=== PATIENT | male | born 1940 | race Caucasian/White ===

== ENCOUNTER 2018-07-02 10:29 | Inpatient (IN) | payer OTHER, SELFPAY ==
[2018-07-02] VITALS (14 sets, daily range): BP systolic 123–146; BP diastolic 56–100; PULSE 60–149; RESP 13–22; TEMP 36.6–36.9; O2SAT 94–97; BMI 41.5; BMI 39.6; BMI 39.7
--- NOTE | 2018-07-02 10:47 | EKG12_ITS ---
Test Reason : SOB Blood Pressure : / mmHG Vent. Rate : 144 BPM Atrial Rate : 122 BPM P-R Int : 000 ms QRS Dur : 088 ms QT Int : 352 ms P-R-T Axes : 000 038 056 degrees QTc Int : 545 ms Supraventricular tachycardia Nonspecific ST abnormality Abnormal ECG Confirmed by CLOTILDE BHANDARI, PHUONG ([id number]), design editor FRANCISCO JAVIER FRAGOSO ([id number] on 07/05/2018 2:25:02 PM Referred By: GO Confirmed By:PHUONG MABRY MD
--- NOTE | 2018-07-02 10:53 | RAD_ITS ---
STUDY: X-RAY CHEST REASON FOR EXAM: Male, 77 years old. Shortness of breath with wheezing. TECHNIQUE: Portable upright chest COMPARISON: None. FINDINGS: There is mild generalized pulmonary hyperlucency in particular at the apices suggesting underlying COPD/emphysema. Mild coarsening of the pulmonary interstitium, chronic. No acute infiltrate, effusion or pneumothorax. No suspicious focal pulmonary lesion. No significant cardiomegaly. Normal mediastinal silhouette, rishabh and pleural margins. No acute osseous or upper abdominal process. RAD/Chest 1 View (Portable) IMPRESSION: Suspicion of underlying COPD/emphysema without acute superimposed cardiopulmonary process. There is no evidence of asymmetric air trapping. There are no convincing features of acute pneumonia. Electronically Signed: Antonio Corrigan MD at 12:18 EST Tel , Service support ,
[2018-07-02 11:00] LABS: Absolute Lymphocyte Count 1.23 X10^3/ul (0.83-4.51); Absolute Neutrophil Count 6.6 X10^3/uL (2.0-7.7); Basophil# 0.03 X10^3/uL; Basophil% 0.4 % (0-1); Eosinophil# 0.14 X10^3/uL; Eosinophils% 1.6 % (0-5); Hematocrit 45.2 % (40-54); Hemoglobin 14.6 g/dl (13.0-16.5); Lymphocyte # 1.23 X10^3/ul (4.0); Lymphocyte % 14.4 % (19-41); Mean Corp Hgb Conc 32.3 g/gl (32-36); Mean Corpuscular Hgb 29.3 pg (27.0-32.0); Mean Corpuscular Volume 90.8 fL (80-94); Mean Platelet Vol. 9.8 fl (6.2-12.0); Monocyte# 0.53 X10^3/uL; Monocyte% 6.2 % (0-10); Neutrophil # 6.59 X10^3/uL (2.7-7.7); Neutrophil % 77.3 % (47-70); Platelet Count 145 K/mm3 (150-450); RBC Distribution Width CV 13.7 % (11.6-14.6); RBC Distribution Width SD 44.6 fl (35.1-43.9); Red Blood Count 4.98 M/mm3 (4.6-6.2); White Blood Count 8.5 K/mm3 (4.4-11.0)
[2018-07-02 11:05] LABS: POSITIVE COUNT NO; POSITIVE DIFFERENTIAL NO; POSITIVE MORPHOLOGY NO
[2018-07-02 11:14] LABS: Anion Gap 6 (5-15); BUN 27 mg/dL (7-18); BUN/Creat Ratio 17.5 RATIO (10-20); Chloride 103 mmol/L (98-107); Creatinine, Serum 1.54 mg/dL (0.70-1.30); EST Glomerular Filtration Rate 47 mL/min (>60); Est Glom Filt Rate - Afr Amer 57 mL/min (>60); Estimated Creatinine Clearance 36.05 ml/min; Glucose 120 mg/dL (74-106); International Normalized Ratio 1.1; Potassium 4.7 mmol/L (3.5-5.1); Prothrombin Time (Protime)PT. 13.9 SECONDS (11.7-14.9); Sodium Level 140 mmol/L (136-145)
[2018-07-02 11:15] LABS: Partial Thromboplast Time 28.6 Seconds (24.1-36.2)
[2018-07-02] MEDS: dilTIAZem 25 MG/5 ML Vial 20 MG IV BOLUS (11:37)
--- NOTE | 2018-07-02 12:31 | ED.DCSUM_ITS ---
- ER Visit Summary Date of Service: 07/02/18 Chief Complaint: [Shortness of breath] History of Present Illness: The patient is a 77 M [presents to the emergency department with complaint of shortness of breath that started a few weeks ago. Patient was seen by primary care physician today and sent to the ER for further evaluation. Patient has been feeling intermittent episodes of palpitations and racing heart. Patient denies any chest pain. Patient thinks he is gained about 14 pounds in the last couple of weeks. Patient denies any fever or cough. Patient does have a history of diabetes, hypertension, high cholesterol, and sleep apnea.] Physical Examination: [HEENT-PERRLA, EOMI. Cranial nerves II through XII grossly intact. TMs clear. Mucous membranes moist. No adenopathy. Cardiovascular- No murmurs auscultated. Heart tachycardic and irregular Lungs-clear to auscultation, chest wall stable without crepitus or subcu emphysema Abdomen-normoactive bowel sounds, soft, nontender, no rebound or rigidity, no peritoneal signs. Extremities-intact ?4, normal range of motion, normal pulses, atraumatic] Test Results: [EKG obtained on arrival showed A. fib flutter with a rate of 144. CBC with differential showed a white count of 8.5, hemoglobin 14.6, hematocrit 45, platelets 145. Chemistries unremarkable. INR was 1.1. Troponin less than 0.015. BNP was 127. Chest x-ray showed mild pulmonary congestion otherwise nothing acute.] Emergency Department Course and Treatment: [Patient was given Cardizem 20 mg IV bolus and his heart rate now into the 70s however he continues to be in atrial fibrillation] Treatment Plan: [Admit] Disposition: [Admit] Impression: [Atrial fibrillation with rapid ventricular response-new onset] This note was generated with [employer] dictation software. It may contain incorrect words, spelling, and punctuation that were not noted in review of the chart prior to signing ED Disposition - Plan for ED Patient: Chief Complaint: Shortness of Breath Referrals: Eric Newton MD [Primary Care Provider] -
--- NOTE | 2018-07-02 12:58 | ECHOD_ITS ---
Reason For Study: Afib, Aflutter Procedure This was a 2D Doppler, Color Flow transthoracic echocardiogram. The study was technically difficult. Contrast injection was performed. Exam performed portable in patient room. Left Ventricle Normal size and thickness. The estimated ejection fraction is 50 %. Unable to assess diastolic dysfunction due to arrhythmia. There is mild global hypokinesis of the left ventricle. Right Ventricle Normal size and thickness. Normal systolic function. Atria Normal right atrium. Normal atrial septum. Mitral Valve The mitral valve is structurally normal. No prolapse or stenosis seen. Tricuspid Valve Normal tricuspid valve. Unable to estimate RV systolic pressure/pulmonary artery pressure due to technically difficult study. Aortic Valve Normal aortic valve. Trisinus/trileaflet aortic valve. Pulmonic Valve The pulmonic valve is not well visualized. Great Vessels Normal aortic root. Normal arch. Normal inferior vena cava. Inferior vena cava collapse with sniff. Pericardium/Pleural No pericardial effusion. Medication Definity0.5ml given slow IV push to enhance endocardial definition. MMode/2D Measurements & Calculations LVIDd: 4.3 cm IVSd: 1.2 cm Ao root diam: 3.1 cm LVIDs: 3.1 cm LVPWd: 1.0 cm RVDd: 3.1 cm FS: 26.3 % LAV(MOD-bp): 31.9 ml LA A4 area: 12.5 cm2 LA dimension(2D): 4.1 cm LAV(MOD-bp) Indexed: 14.7 ml/m2 LAV(MOD-sp2): 36.7 ml LAV(MOD-sp4): 26.1 ml RA A4 area: 13.6 cm2 Doppler Measurements & Calculations MV E max dot: 79.9 cm/sec Ao V2 max: 116.7 cm/sec LV V1 max: 80.7 cm/sec Ao max P.5 mmHg LV V1 max P.6 mmHg Ao V2 mean: 86.1 cm/sec Ao mean P.3 mmHg Ao V2 VTI: 19.8 cm PA V2 max: 63.4 cm/sec Interpretation Summary Normal size and thickness. The estimated ejection fraction is 50 %. Unable to assess diastolic dysfunction due to arrhythmia. There is mild global hypokinesis of the left ventricle. Unable to estimate RV systolic pressure/pulmonary artery pressure due to technically difficult study. The study was technically difficult. There is no comparison study available. Contrast injection was performed. Ordering Physician: Jhon Zamorano Referring Physician: Eric Newton Performed By: Trena Bueno RDCS, RVT
[2018-07-02 14:18] LABS: Absolute Lymphocyte Count 1.65 X10^3/ul (0.83-4.51); Absolute Neutrophil Count 5.6 X10^3/uL (2.0-7.7); Basophil# 0.02 X10^3/uL; Basophil% 0.3 % (0-1); Eosinophil# 0.12 X10^3/uL; Eosinophils% 1.5 % (0-5); Hematocrit 43.3 % (40-54); Hemoglobin 14.1 g/dl (13.0-16.5); Lymphocyte # 1.65 X10^3/ul (4.0); Mean Corp Hgb Conc 32.6 g/gl (32-36); Mean Corpuscular Hgb 29.4 pg (27.0-32.0); Mean Corpuscular Volume 90.4 fL (80-94); Mean Platelet Vol. 9.6 fl (6.2-12.0); Monocyte# 0.49 X10^3/uL; Monocyte% 6.2 % (0-10); Neutrophil # 5.56 X10^3/uL (2.7-7.7); Neutrophil % 70.9 % (47-70); POSITIVE COUNT NO; POSITIVE DIFFERENTIAL NO; POSITIVE MORPHOLOGY NO; Platelet Count 137 K/mm3 (150-450); RBC Distribution Width CV 13.5 % (11.6-14.6); RBC Distribution Width SD 44.5 fl (35.1-43.9); Red Blood Count 4.79 M/mm3 (4.6-6.2); White Blood Count 7.9 K/mm3 (4.4-11.0)
--- NOTE | 2018-07-02 16:54 | PCM.HP.STD ---
Problem List (1) HTN (hypertension) Status: Chronic (2) HLD (hyperlipidemia) Status: Chronic (3) GERD (gastroesophageal reflux disease) Status: Chronic (4) Paroxysmal A-fib Status: Acute History of Present Illness Date of Admission: 07/02/18 Chief Complaint: Palpitations The patient is a 77 year old M with a pmh as above who presents with SOB. He went to his PCP's office today because the SOB has been present for several weeks, and he mentioned that he had been having intermittent palpitations. He had a memorable episode of palpitations several years ago which is when he was started on Metoprolol. An EKG was performed in the the office and he was seen to be in a-fib and was sent to the ER. In the ER he was found to be in a-fib with RVR and he was given a bolus of cardizem 20 mg which caused his rate to drop to the 70's which is where hs stayed. No CP, lightheadedness or dizziness. He does have an elevated creatinine, and he has no previous labs in our system. He was admitted because though his rate is normal, he remains in a-fib and will require further work-up. Past Medical History Past Medical History (Chronic Problems): Chronic Problems HTN (hypertension) (Chronic) HLD (hyperlipidemia) (Chronic) GERD (gastroesophageal reflux disease) (Chronic) Allergies No Known Allergies Allergy (Verified 07/02/18 10:30) Home Medications: Ambulatory Orders Medication Instructions Recorded Aspirin [Aspirin, Baby] 81 mg PO DAILY@0800 07/02/18 Atorvastatin Calcium [Lipitor] 10 mg PO QHS 07/02/18 Hydrochlorothiazide [Hctz] 25 mg PO DAILY 07/02/18 Metformin HCl [Glucophage] 500 mg PO BID 07/02/18 Metoprolol Tartrate [Lopressor 25 mg PO BID 07/02/18 (Beta Yosef)] Omeprazole [Prilosec] 20 mg PO DAILY 07/02/18 Quinapril HCl [Accupril] 20 mg PO BID 07/02/18 Surgical History: total hip arthroplasty, total knee arthroplasty Lives: With Family Smoking Status: Never smoker Alcohol: None Drugs: None - *Family History Maternal History Items: High Cholesterol, Heart Disease, Hypertension Review of Systems Constitutional: Denies: Chills, Fever, Weight Change HEENT: Denies: Head Aches, Sinus Congestion, Sinus Drainage Cardiovascular: Reports: Palpitations. Denies: Chest Pain Respiratory: Reports: Shortness of Breath, Shortness of breath upon exertion. Denies: Cough, Shortness of breath at rest, Sputum production Gastrointestinal: Denies: Abdominal Pain, Nausea, Vomiting Genitourinary: Denies: Dysuria Musculoskeletal: Denies: Joint Pain, Joint Tenderness Skin: Denies: Rash, Wounds Neurological: Denies: Numbness, Tingling, Focal weakness Psychiatric: Denies: Anxiety, Depression Hematologic/ Lymphatic: Denies: Easy Bruising, Easy Bleeding VTE Information - Inpt Only VTE Present on Admission: No Patient Problems: Active and Suspected Problems Paroxysmal A-fib (Acute) - Physical Exam General: Alert, Oriented x3, Cooperative, No apparent distress HEENT: Atraumatic, PERRLA, EOMI, Normocephalic Oral: Moist Mucosa Neck: Supple, No JVD Lungs: Clear to auscultation, Normal air movement, No rhonchi, No wheeze, No rales Cardiovascular: Regular rate, Normal S1, Normal S2, No murmurs, - - irregular rhythm Abdomen: Soft, Non Tender, Non-Distended, No Hepato-splenomegaly Extremities: Capillary Refill Less than 3 Seconds, Edema Skin: No rashes, No breakdown Neurological: Neuro grossly intact, Sensory exam intact to light touch and pain Psych/Mental Status: Normal Affect, Appropriate Vital Signs Temp Pulse Resp BP Pulse Ox 98.5 F 81 20 H 146/85 H 97 07/02/18 14:46 07/02/18 14:46 07/02/18 14:46 07/02/18 14:46 07/02/18 14:46 Oxygen Delivery Method Room Air Weight: 238 lb 9.6 oz Body Mass Index (BMI) 39.6 Laboratory Tests Past 24 Hrs 07/02/18 07/02/18 07/02/18 10:40 10:40 10:40 WBC 8.5 RBC 4.98 Hgb 14.6 Hct 45.2 MCV 90.8 MCH 29.3 MCHC 32.3 RDW 13.7 RDW Differential 44.6 H Plt Count 145 L MPV 9.8 Immature Gran % (Auto) 0.100 Neut % (Auto) 77.3 H Lymph % (Auto) 14.4 L [place] % (Auto) 6.2 Eos % (Auto) 1.6 Baso % (Auto) 0.4 Absolute Neuts (auto) 6.6 Absolute Lymphs (auto) 1.23 Total Counted Not Reportable PT 13.9 INR 1.1 APTT 28.6 Sodium 140 Potassium 4.7 Chloride 103 Carbon Dioxide 31.0 Anion Gap 6 BUN 27 H Creatinine 1.54 H Estim Creat Clear Calc 36.05 Est GFR (MDRD) Af Amer 57 L Est GFR (MDRD) Non-Af 47 L BUN/Creatinine Ratio 17.5 Glucose 120 H Calcium 9.0 Troponin I < 0.015 B-Natriuretic Peptide TSH 07/02/18 07/02/18 07/02/18 10:40 10:40 14:05 WBC 7.9 RBC 4.79 Hgb 14.1 Hct 43.3 MCV 90.4 MCH 29.4 MCHC 32.6 RDW 13.5 RDW Differential 44.5 H Plt Count 137 L MPV 9.6 Immature Gran % (Auto) 0.100 Neut % (Auto) 70.9 H Lymph % (Auto) 21.0 [place] % (Auto) 6.2 Eos % (Auto) 1.5 Baso % (Auto) 0.3 Absolute Neuts (auto) 5.6 Absolute Lymphs (auto) 1.65 Total Counted Not Reportable PT INR APTT Sodium Potassium Chloride Carbon Dioxide Anion Gap BUN Creatinine Estim Creat Clear Calc Est GFR (MDRD) Af Amer Est GFR (MDRD) Non-Af BUN/Creatinine Ratio Glucose Calcium Troponin I B-Natriuretic Peptide 125.0 H TSH Pending Assessment/Plan All Active Problems Paroxysmal A-fib (Acute) 1. Paroxysmal a-fib/HTN/HLD - even though this is his first diagnosis of a-fib, given his past h/o intermittent palpitations in the distant past and recently this makes it likely to be paroxysmal - Echo is pending - Increased his metoprolol to 50 mg BID and will monitor - Given his edema, which has been present for a few years, on and off and the SOB, I am concerned that he has heart failure, will wait for the echo to confirm - May need ischemic work-up - Initial troponin is negative and EKG with a-fib - Will continue with his home BP medications - CHADS2 is 3 and he will likely need anticoagulation prior to discharge - C/w asa and lipitor 2. DM2 - will hold his metformin - SSI and accuchecks 3. GERD - stable - C/w his home PPI DVT: Heparin Diet: Cardiac Code Visit Inpatient E&M: 44643 Init Hosp L3
[2018-07-02 17:24] LABS: Thyroid Stim Hormone (TSH) 5.16 uIU/mL (0.358-3.74)
[2018-07-02] MEDS: Metoprolol Tartrate 50 MG Tablet PO (17:37)
[2018-07-02] MEDS: Heparin Injection (Vial) 5,000 UNIT/ML VIAL 5000 UNIT SC (21:46)
[2018-07-02] MEDS: Atorvastatin Calcium 10 MG Tablet PO (21:46)
[2018-07-02 22:10] LABS: Bedside Glucose 121 mg/dL (70-110)
[2018-07-03] VITALS (19 sets, daily range): BP systolic 131–160; BP diastolic 70–101; PULSE 73–146; RESP 16–26; TEMP 36.6–37.1; O2SAT 93–97
[2018-07-03 06:15] LABS: Absolute Lymphocyte Count 1.89 X10^3/ul (0.83-4.51); Absolute Neutrophil Count 4.2 X10^3/uL (2.0-7.7); Basophil# 0.02 X10^3/uL; Basophil% 0.3 % (0-1); Eosinophil# 0.23 X10^3/uL; Eosinophils% 3.4 % (0-5); Hematocrit 43.6 % (40-54); Hemoglobin 14.1 g/dl (13.0-16.5); Lymphocyte # 1.89 X10^3/ul (4.0); Lymphocyte % 27.9 % (19-41); Mean Corp Hgb Conc 32.3 g/gl (32-36); Mean Corpuscular Hgb 29.5 pg (27.0-32.0); Mean Corpuscular Volume 91.2 fL (80-94); Mean Platelet Vol. 9.7 fl (6.2-12.0); Monocyte# 0.46 X10^3/uL; Monocyte% 6.8 % (0-10); Neutrophil # 4.16 X10^3/uL (2.7-7.7); Neutrophil % 61.5 % (47-70); Platelet Count 138 K/mm3 (150-450); RBC Distribution Width CV 13.8 % (11.6-14.6); RBC Distribution Width SD 45.5 fl (35.1-43.9); Red Blood Count 4.78 M/mm3 (4.6-6.2); White Blood Count 6.8 K/mm3 (4.4-11.0)
[2018-07-03 06:24] LABS: Anion Gap 5 (5-15); BUN 25 mg/dL (7-18); BUN/Creat Ratio 18.7 RATIO (10-20); Calcium,Total 8.7 mg/dL (8.5-10.1); Chloride 101 mmol/L (98-107); Creatinine, Serum 1.34 mg/dL (0.70-1.30); EST Glomerular Filtration Rate 55 mL/min (>60); Est Glom Filt Rate - Afr Amer 67 mL/min (>60); Estimated Creatinine Clearance 41.43 ml/min; Glucose 125 mg/dL (74-106); Potassium 4.7 mmol/L (3.5-5.1); Sodium Level 137 mmol/L (136-145)
[2018-07-03 06:25] LABS: POSITIVE COUNT NO; POSITIVE DIFFERENTIAL NO; POSITIVE MORPHOLOGY NO
[2018-07-03] MEDS: dilTIAZem 25 MG/5 ML Vial 5 MG IV BOLUS (06:35)
[2018-07-03 06:55] LABS: Bedside Glucose 112 mg/dL (70-110)
--- NOTE | 2018-07-03 07:52 | EKG12_ITS ---
Test Reason : RHYTHM CHANGE Blood Pressure : / mmHG Vent. Rate : 134 BPM Atrial Rate : 144 BPM P-R Int : 000 ms QRS Dur : 080 ms QT Int : 350 ms P-R-T Axes : 000 057 077 degrees QTc Int : 522 ms Atrial flutter Abnormal ECG Confirmed by MARCIAL BHANDARI, JENNIFER ([id number]), department editor AUBREY STEIN ([id number] on 07/09/2018 3:50:03 PM Referred By: RADHA Confirmed By:JENNIFER CEJA MD
[2018-07-03] MEDS: Aspirin 81 MG TAB.CHEW PO (08:20)
[2018-07-03] MEDS: Metoprolol Tartrate 50 MG Tablet PO ×2 (08:20→09:30)
[2018-07-03] MEDS: Pantoprazole Sodium 20 MG Tablet PO (08:20)
[2018-07-03] MEDS: Heparin Injection (Vial) 5,000 UNIT/ML VIAL 5000 UNIT SC ×2 (08:20→21:31)
--- NOTE | 2018-07-03 12:16 | CHAPLAIN ---
Type of Pastoral Visit _x__ Initial Visit ___ Follow-up Visit ___ On-call Visit ___ General Patient Visit ___ Spiritual Assessment ___ Family Conference ___ Bereavement ___ Rapid Response ___ Code Blue ___ Other (describe below) Pastoral Care Referral From _x__ Patient ___ Family ___ Nurse ___ Physician ___ Stripper Shovel Operator ___ Structural Steel Equipment Erector ___ Other (describe below) Sacrament/Intervention _x__ Active listening ___ Anointing ___ Christian ___ Bereavement ___ Communion _x__ Tori exploration ___ _x__ Life review _x__ Prayer ___ Reconciliation ___ Sacrament of Sick ___ Supportive presence ___ Wedding ___ Other (describe below) Pastoral Comments 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
[2018-07-03 12:36] LABS: Bedside Glucose 154 mg/dL (70-110)
--- NOTE | 2018-07-03 12:53 | PCM.PN.HOSP ---
Patient Problems: Active and Suspected Problems Paroxysmal A-fib (Acute) Subjective: Feels good, without complaints, does not feel the palpitations unless HR is in the 140s. No lightheadedness or dizziness Vitals/I&O's: Vital Signs Temp Pulse Resp BP Pulse Ox 98.0 F 112 H 20 H 131/70 H 97 07/03/18 11:32 07/03/18 11:42 07/03/18 11:42 07/03/18 11:32 07/03/18 11:42 Oxygen Flow Rate (L/min) 2 Oxygen Delivery Method Nasal Cannula Weight: 238 lb 9.6 oz Body Mass Index (BMI) 39.6 Intake and Output for Last 24 Hours 07/01/18 07/02/18 07/03/18 23:59 23:59 23:59 Intake Total 360 / 360 240 / 240 Balance 360 / 360 240 / 240 General: Alert, Oriented x3, Cooperative, No apparent distress HEENT: Atraumatic, PERRLA, EOMI, Normocephalic Oral: Moist Mucosa Neck: Supple, No JVD Lungs: Clear to auscultation, Normal air movement, No rhonchi, No wheeze, No rales Cardiovascular: Tachycardic, Normal S1, Normal S2, No murmurs, - - irregular rhythm Abdomen: Soft, Non Tender, Non-Distended, No Hepato-splenomegaly Extremities: Capillary Refill Less than 3 Seconds, Edema Skin: No rashes, No breakdown Neurological: Neuro grossly intact, Sensory exam intact to light touch and pain Psych/Mental Status: Normal Affect, Appropriate Vital Signs Laboratory Results 07/02/18 10:40: TSH 5.16 H 07/02/18 14:05: WBC 7.9, RBC 4.79, Hgb 14.1, Hct 43.3, MCV 90.4, MCH 29.4, MCHC 32.6, RDW 13.5, RDW Differential 44.5 H, Plt Count 137 L, MPV 9.6, Immature Gran % (Auto) 0.100, Neut % (Auto) 70.9 H, Lymph % (Auto) 21.0, [place] % (Auto) 6.2, Eos % (Auto) 1.5, Baso % (Auto) 0.3, Absolute Neuts (auto) 5.6, Absolute Lymphs (auto) 1.65, Total Counted Not Reportable 07/02/18 21:46: POC Glucose 121 H 07/03/18 05:08: WBC 6.8, RBC 4.78, Hgb 14.1, Hct 43.6, MCV 91.2, MCH 29.5, MCHC 32.3, RDW 13.8, RDW Differential 45.5 H, Plt Count 138 L, MPV 9.7, Immature Gran % (Auto) 0.100, Neut % (Auto) 61.5, Lymph % (Auto) 27.9, [place] % (Auto) 6.8, Eos % (Auto) 3.4, Baso % (Auto) 0.3, Absolute Neuts (auto) 4.2, Absolute Lymphs (auto) 1.89, Total Counted Not Reportable 07/03/18 05:08: Sodium 137, Potassium 4.7, Chloride 101, Carbon Dioxide 31.0, Anion Gap 5, BUN 25 H, Creatinine 1.34 H, Estim Creat Clear Calc 41.43, Est GFR (MDRD) Af Amer 67, Est GFR (MDRD) Non-Af 55 L, BUN/Creatinine Ratio 18.7, Glucose 125 H, Calcium 8.7 07/03/18 06:39: POC Glucose 112 H 07/03/18 12:28: POC Glucose 154 H Current Medications Aspirin (Aspirin, Baby) 81 mg PO DAILY@0800 COUNTS INCLUDE 234 BEDS AT THE [facility] Last Admin: 07/03/18 08:20 Dose: 81 mg Atorvastatin Calcium (Lipitor) 10 mg PO QHS COUNTS INCLUDE 234 BEDS AT THE [facility] Last Admin: 07/02/18 21:46 Dose: 10 mg Dextrose (D50w Syringe) 0 gm IV X1 PRN; Protocol PRN Reason: Hypoglycemia Glucagon () 1 mg IM .X1 PRN PRN Reason: Hypoglycemia Heparin Sodium (Porcine) (Heparin Na) 5,000 unit SC Q12 COUNTS INCLUDE 234 BEDS AT THE [facility] Last Admin: 07/03/18 08:20 Dose: 5,000 unit Insulin Human Lispro (Humalog Kwikpen (Bkc)) 0 unit SQ ACHS COUNTS INCLUDE 234 BEDS AT THE [facility]; Protocol Last Admin: 07/03/18 07:59 Dose: Not Given Magnesium Hydroxide (Milk Of Magnesia) 30 ml PO DAILY PRN PRN Reason: Constipation Metoprolol Tartrate (Lopressor (Beta Yosef)) 100 mg PO BID COUNTS INCLUDE 234 BEDS AT THE [facility] Pantoprazole Sodium (Protonix) 20 mg PO DAILY COUNTS INCLUDE 234 BEDS AT THE [facility] Last Admin: 07/03/18 08:20 Dose: 20 mg Sodium Chloride () 5 - 15 ml IV UD PRN PRN Reason: SALINE FLUSH Medical Necessity - Tobacco Use Smoking Status: Never smoker Assessment/Plan All Active Problems Paroxysmal A-fib (Acute) 1. Paroxysmal a-fib/HTN/HLD - even though this is his first diagnosis of a-fib, given his past h/o intermittent palpitations in the distant past and recently this makes it likely to be paroxysmal - Echo is pending - Increased his metoprolol to 100 mg BID and will monitor - Given his edema, which has been present for a few years, on and off and the SOB, I am concerned that he has heart failure, will wait for the echo to confirm - May need ischemic work-up - Initial troponin is negative and EKG with a-fib - Continue to hold his HCTZ and AMBER as his creatinine is still elevated, though improving from 1.54 to 1.34, Unsure if this is an LILIA as there is no baseline in our records - CHADS2 is 3 and he will likely need anticoagulation prior to discharge - C/w asa and lipitor 2. DM2 - will hold his metformin - SSI and accuchecks 3. GERD - stable - C/w his home PPI 4. TSH elevation - He is currently in an acute setting with stress making the elevated level of his TSH unlikely to correlate with actual activity - He will need outpatient follow-up DVT: Heparin Diet: Cardiac Code Visit Inpatient E&M: 39895 Subs Hosp L2
--- NOTE | 2018-07-03 12:57 | PN_ITS ---
Patient Problems: Active and Suspected Problems Paroxysmal A-fib (Acute) Subjective: Feels good, without complaints, does not feel the palpitations unless HR is in the 140s. No lightheadedness or dizziness Vitals/I&O's: Vital Signs Temp Pulse Resp BP Pulse Ox 98.0 F 112 H 20 H 131/70 H 97 07/03/18 11:32 07/03/18 11:42 07/03/18 11:42 07/03/18 11:32 07/03/18 11:42 Oxygen Flow Rate (L/min) 2 Oxygen Delivery Method Nasal Cannula Weight: 238 lb 9.6 oz Body Mass Index (BMI) 39.6 Intake and Output for Last 24 Hours 07/01/18 07/02/18 07/03/18 23:59 23:59 23:59 Intake Total 360 / 360 240 / 240 Balance 360 / 360 240 / 240 General: Alert, Oriented x3, Cooperative, No apparent distress HEENT: Atraumatic, PERRLA, EOMI, Normocephalic Oral: Moist Mucosa Neck: Supple, No JVD Lungs: Clear to auscultation, Normal air movement, No rhonchi, No wheeze, No rales Cardiovascular: Tachycardic, Normal S1, Normal S2, No murmurs, - - irregular rhythm Abdomen: Soft, Non Tender, Non-Distended, No Hepato-splenomegaly Extremities: Capillary Refill Less than 3 Seconds, Edema Skin: No rashes, No breakdown Neurological: Neuro grossly intact, Sensory exam intact to light touch and pain Psych/Mental Status: Normal Affect, Appropriate Vital Signs Laboratory Results 07/02/18 10:40: TSH 5.16 H 07/02/18 14:05: WBC 7.9, RBC 4.79, Hgb 14.1, Hct 43.3, MCV 90.4, MCH 29.4, MCHC 32.6, RDW 13.5, RDW Differential 44.5 H, Plt Count 137 L, MPV 9.6, Immature Gran % (Auto) 0.100, Neut % (Auto) 70.9 H, Lymph % (Auto) 21.0, [place] % (Auto) 6.2, Eos % (Auto) 1.5, Baso % (Auto) 0.3, Absolute Neuts (auto) 5.6, Absolute Lymphs (auto) 1.65, Total Counted Not Reportable 07/02/18 21:46: POC Glucose 121 H 07/03/18 05:08: WBC 6.8, RBC 4.78, Hgb 14.1, Hct 43.6, MCV 91.2, MCH 29.5, MCHC 32.3, RDW 13.8, RDW Differential 45.5 H, Plt Count 138 L, MPV 9.7, Immature Gran % (Auto) 0.100, Neut % (Auto) 61.5, Lymph % (Auto) 27.9, [place] % (Auto) 6.8, Eos % (Auto) 3.4, Baso % (Auto) 0.3, Absolute Neuts (auto) 4.2, Absolute Lymphs (auto) 1.89, Total Counted Not Reportable 07/03/18 05:08: Sodium 137, Potassium 4.7, Chloride 101, Carbon Dioxide 31.0, Anion Gap 5, BUN 25 H, Creatinine 1.34 H, Estim Creat Clear Calc 41.43, Est GFR (MDRD) Af Amer 67, Est GFR (MDRD) Non-Af 55 L, BUN/Creatinine Ratio 18.7, Glucose 125 H, Calcium 8.7 07/03/18 06:39: POC Glucose 112 H 07/03/18 12:28: POC Glucose 154 H Current Medications Aspirin (Aspirin, Baby) 81 mg PO DAILY@0800 [facility] Last Admin: 07/03/18 08:20 Dose: 81 mg Atorvastatin Calcium (Lipitor) [address] [facility] Last Admin: 07/02/18 21:46 Dose: 10 mg Dextrose (D50w Syringe) 0 gm IV X1 PRN; Protocol PRN Reason: Hypoglycemia Glucagon () 1 mg IM .X1 PRN PRN Reason: Hypoglycemia Heparin Sodium (Porcine) (Heparin Na) 5,[address] [facility] Last Admin: 07/03/18 08:20 Dose: 5,000 unit Insulin Human Lispro (Humalog Kwikpen (Bkc)) [address] [facility]; Protocol Last Admin: 07/03/18 07:59 Dose: Not Given Magnesium Hydroxide (Milk Of Magnesia) 30 ml PO DAILY PRN PRN Reason: Constipation Metoprolol Tartrate (Lopressor (Beta Yosef)) [address] [facility] Pantoprazole Sodium (Protonix) [address] [facility] Last Admin: 07/03/18 08:20 Dose: 20 mg Sodium Chloride () 5 - 15 ml IV UD PRN PRN Reason: SALINE FLUSH Medical Necessity - Tobacco Use Smoking Status: Never smoker Assessment/Plan All Active Problems Paroxysmal A-fib (Acute) 1. Paroxysmal a-fib/HTN/HLD - even though this is his first diagnosis of a-fib, given his past h/o intermittent palpitations in the distant past and recently this makes it likely to be paroxysmal - Echo is pending - Increased his metoprolol to 100 mg BID and will monitor - Given his edema, which has been present for a few years, on and off and the SOB, I am concerned that he has heart failure, will wait for the echo to confirm - May need ischemic work-up - Initial troponin is negative and EKG with a-fib - Continue to hold his HCTZ and AMBER as his creatinine is still elevated, though improving from 1.54 to 1.34, Unsure if this is an LILIA as there is no baseline in our records - CHADS2 is 3 and he will likely need anticoagulation prior to discharge - C/w asa and lipitor 2. DM2 - will hold his metformin - SSI and accuchecks 3. GERD - stable - C/w his home PPI 4. TSH elevation - He is currently in an acute setting with stress making the elevated level of his TSH unlikely to correlate with actual activity - He will need outpatient follow-up DVT: Heparin Diet: Cardiac Code Visit Inpatient E&M: 99712 Subs Hosp L2
[2018-07-03] MEDS: Insulin Lispro 100 UNIT/ML INSULN.PEN SQ ×2 (13:00→21:32)
--- NOTE | 2018-07-03 13:19 | NURSING ---
STUDENT CHARTING REVIEWED BY THIS RN.
--- NOTE | 2018-07-03 14:10 | CASEMGMT ---
RN SHERRY Face to Face with patient for initial transition planning/care coordination assessment. RN CM introduced self and role at [facility]. Patient lying in bed, alert and oriented, family at bedside. Patient willing to participate in assessment and is able to answer all questions appropriately. Care providers, pharmacy, and demographics verified. Patient wishes to discharge home, denies need for home health at this time. Patient states he has no further needs or concerns at this time. CM to follow for discharge planning needs that may arise. PCP: [facility] Specialists: None Preferred Pharmacy: [facility] [place] Insurance: [employer] Prescription Benefit: none Living Will/HPOA: None LNOK: , daughters and sons Living Arrangements: Patient lives with and son in 2 story home with bed and bath to enter the home. Transportation: Uses a warehouse driver DME/HHC: Has can and walker at home. Disposition Plan: Patient to discharge home with family support and follow-up plans in place. Wen LUEVANO, RN, CM
[2018-07-03 16:40] LABS: Bedside Glucose 116 mg/dL (70-110)
[2018-07-03] MEDS: Ipratropium/Albuterol Sulfate 3 ML AMPUL.NEB INHALATION (17:39)
--- NOTE | 2018-07-03 19:23 | CON.PCM_ITS ---
Problem List (1) Atrial fibrillation and flutter Status: Acute (2) Cardiomyopathy Status: Acute (3) CHF (congestive heart failure) Status: Acute Qualifiers: Heart failure type: systolic (4) HLD (hyperlipidemia) Status: Chronic (5) HTN (hypertension) Status: Chronic (6) Hyperglycemia Status: Chronic (7) Renal insufficiency Status: Chronic Reason for Consult Date of Consultation: 07/03/18 History of Present Illness: The patient is a 77 year old white male with a past medical history of hyperlipidemia, hypertension, hyperglycemia, possible chronic renal insufficiency, who is referred for evaluation of atrial fibrillation/flutter, and abnormal transthoracic echocardiogram suggesting a cardiomyopathy, and findings concerning for CHF. He notes that for some time now, potentially 1-2 weeks or up to 1 month he has felt progressively short of breath and dyspneic especially with activity. This feeling has been associated with chest pressure discomfort. He has denied any acute orthopnea or PND. He has had lower extremity peripheral pitting edema. He has noted palpitations and rapid heart rate sensation but has denied near syncope or syncope. He notes based upon his symptoms and his feelings he was evaluated in an outpatient setting. He was found to be in what was reported as atrial fibrillation and subsequently referred to the [facility] for further evaluation care. Based upon review of his cardiac rhythm strip/ECGs there are concerns he has been in atrial flutter with a rapid ventricular response. He has been monitored. He has had a repeat ECGs demonstrating the above. He had a transthoracic echocardiogram performed today. His left ventricle was thought to be globally hypokinetic with an LVEF of 50%. He had a chest x-ray corado ggesting underlying COPD. He has been treated medically. This is required the use of IV diltiazem in attempt to slow his cardiac rate. He has also been on beta-yosef therapy with the dose increasing. He has been on anticoagulant therapy with subcutaneous Lovenox. [] Past Medical History Allergies/Adverse Reactions: Allergies No Known Allergies Allergy (Verified 07/02/18 10:30) Home Medications: Ambulatory Orders Medication Instructions Recorded Aspirin [Aspirin, Baby] 81 mg PO DAILY@0800 07/02/18 Atorvastatin Calcium [Lipitor] 10 mg PO QHS 07/02/18 Hydrochlorothiazide [Hctz] 25 mg PO DAILY 07/02/18 Metformin HCl [Glucophage] 500 mg PO BID 07/02/18 Metoprolol Tartrate [Lopressor 25 mg PO BID 07/02/18 (Beta Yosef)] Omeprazole [Prilosec] 20 mg PO DAILY 07/02/18 Quinapril HCl [Accupril] 20 mg PO BID 07/02/18 Past Medical History (Chronic Problems): Chronic Problems HTN (hypertension) (Chronic) HLD (hyperlipidemia) (Chronic) GERD (gastroesophageal reflux disease) (Chronic) Hyperglycemia (Chronic) Renal insufficiency (Chronic) Surgical History: total hip arthroplasty, total knee arthroplasty - *Family History Maternal History Items: High Cholesterol, Heart Disease, Hypertension Lives: With Family Smoking Status: Never smoker Alcohol: None Drugs: None Review of Systems - Review of Systems General: Denies: Fever, Night Sweats, Fatigue Cardiovascular: Reports: Chest Discomfort, Shortness of Breath, Shortness of Breath with Exertion, Peripheral Edema. Denies: Orthopnea, PND, Palpitations, Lightheadedness, Dizziness, Near Syncope, Syncope Respiratory: Reports: Shortness of Breath. Denies: Cough, Sputum Production, Hemoptysis Gastrointestinal: Denies: Hematemesis, Hematochezia, Melena Genitourinary: Denies: Dysuria, Hematuria Skin: Denies: Rash Subjectve: This is a 77-year-old white male who appears to be resting reasonably comfor tably at the moment in no acute distress. Objective: Vital Signs Temp Pulse Resp BP Pulse Ox 98.0 F 86 26 H 131/70 H 97 07/03/18 11:32 07/03/18 17:37 07/03/18 17:37 07/03/18 11:32 07/03/18 11:42 Oxygen Flow Rate (L/min) 2 Oxygen Delivery Method Room Air Weight: 238 lb 9.6 oz Body Mass Index (BMI) 39.6 Intake and Output for Last 24 Hours 07/01/18 07/02/18 07/03/18 23:59 23:59 23:59 Intake Total 360 / 360 720 / 720 Balance 360 / 360 720 / 720 General: Awake, Alert, Oriented x 3, Cooperative, No Acute Distress, Obese HEENT: Atraumatic, Normocephalic, PERRL, EOMI, Sclera Non Icteric Oral: Moist Mucosa Neck: Supple, Good ROM, No JVD Lungs: Diminished Josr Bases Cardiovascular: Irregular Rhythm, Normal S1, Normal S2 Vascular: No Carotid Bruits Abdomen: Bowel Sounds Present, Soft, Non Tender, Obese Extremities: Mild RLE Edema, Mild LLE Edema Neurological: No Focal Motor or Sensory Deficit Psych/Mental Status: Appropriate, Normal Affect 07/03/18 05:08: WBC 6.8, RBC 4.78, Hgb 14.1, Hct 43.6, MCV 91.2, MCH 29.5, MCHC 32.3, RDW 13.8, RDW Differential 45.5 H, Plt Count 138 L, MPV 9.7, Immature Gran % (Auto) 0.100, Neut % (Auto) 61.5, Lymph % (Auto) 27.9, Crenshaw % (Auto) 6.8, Eos % (Auto) 3.4, Baso % (Auto) 0.3, Absolute Neuts (auto) 4.2, Total Counted Not Reportable 07/03/18 05:08: Sodium 137, Potassium 4.7, Chloride 101, Carbon Dioxide 31.0, Anion Gap 5, BUN 25 H, Creatinine 1.34 H, Est GFR (MDRD) Af Amer 67, Est GFR (MDRD) Non-Af 55 L, BUN/Creatinine Ratio 18.7, Glucose 125 H, Calcium 8.7 Rhythm: Atrial flutter EKG: As noted above ECHO: As noted above CXR: As noted above Assessment/Plan 1. Atrial fibrillation/flutter At the present time the patient appears to be predominantly in atrial flutter with rapid ventricular response. He has been undergoing noninvasive cardiovascular evaluation as noted above. He has been treated medically with rate control therapy and anticoagulant therapy. However, despite these attempts he continues with his atrial dysrhythmia with episodes of rapid ventricular response. Thus he will need continued rate control therapy, consideration for possible antiarrhythmic therapy, continued anticoagulant therapy, and consideration for possible synchronized biphasic DC cardioversion, which based upon the concern of the duration of the patient's findings may need to be SHAINA guided. 2. Cardiomyopathy The patient does have what appears to be a mildly diminished LV systolic function. It is unclear whether this is related to his atrial dysrhythmia and a tachycardic induced event versus being a separate underlying primary cardiova scular finding. He does need to continue medical management for this. This would include agents such as beta blockers, afterload reducing agents, etc. Also controlling his rate and rhythm would be beneficial. Hopefully if that is under better control his overall LV systolic function will improve. 3. Congestive heart failure The patient does have signs and symptoms compatible with underlying CHF. Based upon his objective findings thus far this appears to be systolic mediated. He will need to continue medical management. This will include diuretic therapy. 4. Hyperlipidemia The patient has been on lipid-lowering therapy in the past. This can be continued. 5. Hypertension The patient states he has a long-standing history of hypertension. He believes it has been reasonably well controlled on medical management. 6. Hyperglycemia The patient states he was placed on hypoglycemic agents to try and bring his glucose levels under better control. 7. Renal insufficiency Based upon the patient's history he may have a history of chronic renal insufficiency. This will need be followed during his evaluation care as it may impact medical management, etc. Overall, the present time, the patient will continue to be monitored. He will continue medical management as described above. However based upon his cardiovascular risks, his symptoms, his objective findings, knowing that he may require antiarrhythmic agents some of which he may or may not be able to be on based upon a concern of underlying CAD, etc., it was felt reasonable that the patient undergo further cardiovascular evaluation with a diagnostic cardiac catheterization. Depending upon the findings he may or may not require not only medical management but potentially coronary artery revascularization therapy. If the patient does not have significant underlying CAD then he will continue with medical management with consideration for future attempts at regaining sinus rhythm which again may require a SHAINA guided synchronized biphasic DC cardioversion. The above was discussed and reviewed with the patient, spouse, and his other family members present. The patient and his family members present were in agreement to the aforementioned evaluation care plan. This note was generated using a voice recognition system and there may be incorrect words, spelling or punctuation that were not noted when reviewing the office note prior to saving.
[2018-07-03] MEDS: Furosemide 20 MG/2 ML VIAL IV (20:29)
[2018-07-03] MEDS: TICAGRELOR 90 MG TABLET 180 MG PO (20:30)
[2018-07-03] MEDS: 0.9% NaCl Peripheral Flush Adult/Peds IV (20:31)
[2018-07-03] MEDS: Metoprolol Tartrate 100 MG Tablet PO (21:32)
[2018-07-03] MEDS: Atorvastatin Calcium 10 MG Tablet PO (21:32)
[2018-07-03 21:50] LABS: Bedside Glucose 153 mg/dL (70-110)
[2018-07-03 23:52] LABS: Color, Urine Straw (Yellow); Glucose, Dipstick Normal (Normal); Ketone-Dipstick Negative (Negative); Leukocyte Esterase-Dipstick Negative /ul (Negative); Nitrite-Dipstick Negative (Negative); Occult Blood-Urine Negative /ul (Negative); Protein-Dipstick Negative (Negative); Specific Gravity, Urine 1.005 (1.002-1.030); Urine Bilirubin Dipstick Negative (Negative); Urine Clarity Clear (Clear); Urine Urobilinogen Normal (Normal); Urine pH 6.5 (5.0 - 8.0)
[2018-07-04] VITALS (33 sets, daily range): BP systolic 89–147; BP diastolic 44–113; PULSE 69–135; RESP 16–25; TEMP 36.4–37.1; O2SAT 92–99
[2018-07-04] MEDS: dilTIAZem 25 MG/5 ML Vial 5 MG IV BOLUS ×2 (00:43→05:48)
[2018-07-04] MEDS: 0.9% NaCl Peripheral Flush Adult/Peds IV ×3 (00:43→05:49)
[2018-07-04] MEDS: Ipratropium/Albuterol Sulfate 3 ML AMPUL.NEB INHALATION (01:02)
--- NOTE | 2018-07-04 01:36 | RAD_ITS ---
HISTORY: SOBShort of Breath/DyspneaRAD - Chest EXAM: XR Chest 1 View: COMPARISON: 07/02/2018 FINDINGS: EKG leads in place. Interval worsening with development of mild CHF. Right perihilar haze secondary to edema. Probable small right pleural effusion. The heart is unchanged in size. No pneumothorax. RAD/Chest 1 View (Portable) IMPRESSION: Interval worsening with development of mild CHF with small right pleural effusion. at 0217 Reported and signed by: Bernardo Juarez MD Electronically Signed: Bernardo Juarez, at 2:15 EST Tel , Service support ,
[2018-07-04] MEDS: Furosemide 40 MG/4 ML Vial IV (01:49)
[2018-07-04] MEDS: MethylPREDNISolone 125 MG/2 ML Vial IV (01:49)
--- NOTE | 2018-07-04 01:57 | NURSING ---
HR 120s-140s passed 5 mg IV cardizem, found patient to be diaphoretic and c/o SOB. Satting well on RA but placed on 3L, 98%. Called RT for breathing treatment. Audible and auscultated wheezes present. RR 20, however shallow breaths/accessory muscle use noted when attempting to decrease O2. Breathing treatment passed. Patient family came to nurse's station after breathing treatment given stating patient still feeling as though he was fighting to breath. Family requested hospitalist to assess, ordered a stat CXR and 125 mg IV solumedrol x1 as well as 40 mg IV lasix x1. HR after 5 mg IV cardizem bolus 70s-90s
[2018-07-04] MEDS: Metoprolol Tartrate 100 MG Tablet PO ×2 (05:32→21:38)
[2018-07-04] MEDS: TICAGRELOR 90 MG TABLET PO ×2 (05:32→21:43)
[2018-07-04] MEDS: Aspirin 81 MG TAB.CHEW PO (05:33)
[2018-07-04 05:39] LABS: Prothrombin Time (Protime)PT. 13.6 SECONDS (11.7-14.9)
[2018-07-04 05:40] LABS: Partial Thromboplast Time 28.3 Seconds (24.1-36.2)
[2018-07-04 05:43] LABS: Absolute Neutrophil Count 7.7 X10^3/uL (2.0-7.7); Basophil# 0.02 X10^3/uL; Basophil% 0.2 % (0-1); Eosinophil# 0.05 X10^3/uL; Eosinophils% 0.6 % (0-5); Hematocrit 47.3 % (40-54); Hemoglobin 15.6 g/dl (13.0-16.5); Lymphocyte % 9.2 % (19-41); Mean Corpuscular Hgb 29.4 pg (27.0-32.0); Mean Corpuscular Volume 89.2 fL (80-94); Monocyte% 2.3 % (0-10); Neutrophil # 7.66 X10^3/uL (2.7-7.7); Neutrophil % 87.7 % (47-70); Platelet Count 157 K/mm3 (150-450); RBC Distribution Width CV 13.7 % (11.6-14.6); RBC Distribution Width SD 44.2 fl (35.1-43.9); White Blood Count 8.7 K/mm3 (4.4-11.0)
[2018-07-04 05:48] LABS: Anion Gap 9 (5-15); BUN 29 mg/dL (7-18); Calcium,Total 9.4 mg/dL (8.5-10.1); Chloride 98 mmol/L (98-107); Creatinine, Serum 1.61 mg/dL (0.70-1.30); EST Glomerular Filtration Rate 45 mL/min (>60); Est Glom Filt Rate - Afr Amer 54 mL/min (>60); Estimated Creatinine Clearance 34.48 ml/min; Glucose 172 mg/dL (74-106); Potassium 4.1 mmol/L (3.5-5.1); Sodium Level 139 mmol/L (136-145)
[2018-07-04] MEDS: 0.9% Normal Saline 1,000 ML 15 ML IV (05:48)
--- NOTE | 2018-07-04 05:55 | EKG12_ITS ---
Test Reason : Blood Pressure : / mmHG Vent. Rate : 075 BPM Atrial Rate : 075 BPM P-R Int : 160 ms QRS Dur : 086 ms QT Int : 420 ms P-R-T Axes : 063 052 054 degrees QTc Int : 469 ms Sinus rhythm with Premature atrial complexes Otherwise normal ECG Confirmed by MARCIAL BHANDARI, JENNIFER ([id number]), movie editor AUBREY STEIN ([id number]) on 07/11/2018 3:25:46 PM Referred By: Confirmed By:JENNIFER CEJA MD
[2018-07-04 05:59] LABS: POSITIVE COUNT NO; POSITIVE DIFFERENTIAL NO; POSITIVE MORPHOLOGY NO
--- NOTE | 2018-07-04 06:54 | SUR.OPER ---
Called report to Omaira in [employer]
[2018-07-04 06:55] LABS: Bedside Glucose 209 mg/dL (70-110)
--- NOTE | 2018-07-04 08:50 | EKG12_ITS ---
Test Reason : Blood Pressure : / mmHG Vent. Rate : 073 BPM Atrial Rate : 073 BPM P-R Int : 158 ms QRS Dur : 086 ms QT Int : 422 ms P-R-T Axes : 069 053 057 degrees QTc Int : 464 ms Sinus rhythm with Premature supraventricular complexes Otherwise normal ECG Confirmed by MARCIAL BHANDARI, JENNIFER ([id number]), image editor AUBREY STEIN ([id number]) on 07/11/2018 3:25:54 PM Referred By: Confirmed By:JENNIFER CEJA MD
--- NOTE | 2018-07-04 09:00 | EKG12_ITS ---
Test Reason : AM EKG Blood Pressure : / mmHG Vent. Rate : 096 BPM Atrial Rate : 277 BPM P-R Int : 000 ms QRS Dur : 100 ms QT Int : 380 ms P-R-T Axes : 000 048 058 degrees QTc Int : 480 ms Atrial flutter with variable A-V block Nonspecific ST abnormality Prolonged QT Abnormal ECG Confirmed by MARCIAL BHANDARI, JENNIFER ([id number]), editor in chief AUBREY STEIN ([id number]) on 07/09/2018 3:48:51 PM Referred By: DR CEJA Confirmed By:JENNIFER CEJA MD
--- NOTE | 2018-07-04 09:13 | CL.D_ITS ---
Patient Name: JOSE A STEIN Study Date: 07/04/2018 Performing: Kulwant Godoy MD Ht: 64.96 inches 165 cm : 1940 Wt: 238.1 lbs 108 kg Age: 77 Gender: male BSA: 2.13 PROCEDURE(S) PERFORMED [id number]/COR/LV [id number] W OR WO PTCA, SINGLE CORONARY ARTERY CLINICAL PROFILE AND INDICATIONS Indications: Cardiac Arrythmia, Cardiomyopathy, Suspected CAD, ACS <= 24 hrs, Other, Other, Cardi ac Arrythmia, Cardiomyopathy, LV Dysfunction Heart Failure: Newly Diagnosed: Yes, Heart Failure Type: Systolic, NYHA Class: 3, NYHA Class: 2, Newly Diagnosed: Yes, Heart Failure Type: Systolic Stress/Imaging Stress/Image Study Performed: No Stress/Image Study Performed: No Angina Classification Anginal Classification w/in 2 Weeks: CCS II CAD Presentations: Other: Dyspnea on Exertion with Chest Pressure Unstable angina. Comorbidities/Risk Factors: Hypertension Dyslipidemia Diabetes Mellitus: Diabetes Therapy: Oral CONCLUSIONS Normal LV size, wall motion,and systolic function Elevated Left Ventricular End Diastolic Pressure Global LV systolic dysfunction- Mild LVEF: by LV gram 50 % [place]lin Multivessel CAD RECOMMENDATIONS Risk factor modification Medical therapy Referred for immediate PCI DESCRIPTION OF PROCEDURE The patient arrived to the procedure lab. The risks and benefits of the procedure as well as a full d escription of our services here and current unavailability of surgical backup were fully explained to the patient and/or their significant other prior to the catheterization. The Timeout was completed, verifying the correct patient and procedure. The patient's procedural site was prepped and draped in the usual fashion. Local anesthetic was given subcutaneously to right groin region with Lidocaine 2%. Local anesthetic was given subcutaneously to left groin region with Lidocaine 2%. Using a modified S eldinger technique, arterial access was obtained via the right femoral artery, a 4Fr sheath was inser glenny, arterial access was obtained via the left femoral artery, a 6Fr sheath was inserted. Left Coron saqib Artery selective angiography was performed in multiple views using a 4 Fr. JL5 catheter. Right Co ronary Artery selective angiography was then performed in multiple views using a 4 Fr. 3DRC catheter. Left Ventriculography was performed in CARRASCO projection using a 4 Fr. Pigtail catheter. LV to AO pullback pressures were then recorded.The arterial 4 fr sheath in right groin was pulled and manual compression applied until hemostasis is achieved.. The arterial sheath was pulled and a Mynx closure device was deployed for hemostasis CORONARY ANGIOGRAPHY DOMINANCE: Right Dominant LEFT HEART ASSESSMENT Left Ventricular Ejection Fraction: by LV Gram 50 % Global Hypokinesis - Mild Elevated Left Ventricular End Diastolic Pressure LVEDP: 23 mmHg LEFT MAIN: Mild calcification, Proximal: 25 % Stenosis, Distal: Eccentric: 25 % Stenosis LEFT ANTERIOR DECENDING ARTERY: PROX LAD: Mild calcification, Diffuse: 25 % Stenosis MID LAD: Mild luminal irregularities DIAGONAL 1: Mid - Small caliber vessel: 50 % Stenosis CIRCUMFLEX ARTERY: PROX CIRC: Mild luminal irregularities RIGHT CORONARY ARTERY: PROX RCA: Eccentric: Hazy: 85 % Stenosis VALVE FINDINGS: Normal Aortic Valve function Normal Mitral Valve function AORTIC ROOT: Angiographically normal COMPLICATIONS No Complications PROCEDURE MEDICATIONS Versed 1 mg IV Oxygen: 2 L/min via nasal cannula Amiodarone 500mg / 100ml D5W 103 ml running at 618 ml/hr IV started 07/04/2018 08:49:52 Amiodarone bolus completed 07/04/2018 08:58:19 Amiodarone 500mg / 100ml D5W @ 33 ml/hr (decreased rate) @ 07/04/2018 08:58:52 Heparin 6000 unit(s) IV 07/04/2018 08:25:54 Nitro 200 mcg IC 07/04/2018 08:27:42 Nitro 200 mcg IC 07/04/2018 08:27:42 IV Bolus: .9 NaCl 300 ml total 07/04/2018 08:26:57 SUMMARY OF HEMODYNAMIC DATA Time AIR REST ECG 07:16:26 AO 121/75 (94) SA 07:45:22 LV 128/6, 19 07:54:13 LV 144/8, 23 07:54:20 LV 141/0, 17 07:55:53 LV 144/3, 23 07:55:59 LVp 151/1, 12 07:56:05 AOp 138/89 (107) 07:56:10 Signed By Kulwant Godoy MD On 07/04/2018 09:12:33 Kulwant Godoy MD
[2018-07-04] MEDS: 0.9% Normal Saline 1,000 ML 150 ML IV (09:30)
--- NOTE | 2018-07-04 09:37 | CL.I_ITS ---
Patient Name: JOSE A STEIN Study Date: 07/04/2018 Performing: Werner Wall MD Ht: 65 inches 165 cm : 1940 Wt: 238.4 lbs 108 kg Age: 77 Gender: male BSA: 2.13 PROCEDURE(S) PERFORMED [id number] W OR WO PTCA, SINGLE CORONARY ARTERY CLINICAL PROFILE AND CO-MORBIDITIES Indications: Cardiac Arrythmia, Cardiomyopathy, Suspected CAD, ACS <= 24 hrs, Other, Other, Cardi ac Arrythmia, Cardiomyopathy, LV Dysfunction, ACS > 24 hrs, New Onset Angina <= 2 months, Cardiac Arr ythmia, Cardiomyopathy, LV Dysfunction Heart Failure: Newly Diagnosed: Yes, Heart Failure Type: Systolic, NYHA Class: 3, NYHA Class: 2, Newly Diagnosed: Yes, Heart Failure Type: Systolic, NYHA Class: 2, Newly Diagnosed: Yes, Heart Failur e Type: Systolic Stress/Imaging Stress/Image Study Performed: No Stress/Image Study Performed: No Stress/Image St udy Performed: No Angina Classification Anginal Classification w/in 2 Weeks: CCS II CAD Presentations: Other: Dyspnea on Exertion with Chest Pressure Unstable angina. Unstable angin a. Comorbidities/Risk Factors: Hypertension Dyslipidemia Diabetes Mellitus: Diabetes Therapy: Oral Hypertension Dyslipidemia Diabetes Mellitus: Diabetes Therapy: Oral CONCLUSIONS Successful PTCA/CARLOS proximal RCA with a 4.0 x 12 Promus Synergy, post dilated with a 4.0 x 8 NC Ballo on; 85%-->0%, no dissection. RECOMMENDATIONS Highly recommend quitting all tobacco products Follow up with primary therapy tech Risk factor modification ASA Indefinitley Plavix for at least 12 months Routine post interventional care Refer for Outpatient Cardiac Rehab Manual sheath removal per protocol Follow up with Dr. Gdooy Start Heparin/coumadin, SHAINA/DCCV in am with Dr Godoy. Medical management of distal LM/Proximal LAD unless or until pt has recurrent symptoms or evidence of anterior ischemia. Successful Mynx closure of LFA. DESCRIPTION OF PROCEDURE The patient arrived to the procedure lab. The risks and benefits of the procedure as well as a full d escription of our services here and current unavailability of surgical backup were fully explained to the patient and/or their significant other prior to the catheterization. The Timeout was completed, verifying the correct patient and procedure. The patient's procedural site was prepped and draped in the usual fashion. Local anesthetic was given subcutaneously to right groin region with Lidocaine 2%. Local anesthetic was given subcutaneously to left groin region with Lidocaine 2% Using a modified Se amos technique,arterial access was obtained via the right femoral artery, a 4Fr sheath was inserte d, arterial access was obtained via the left femoral artery, a 6Fr sheath was inserted. Left Coronary Artery selective angiography was performed in multiple views using a 4 Fr. JL5 catheter. Right Coron saqib Artery selective angiography was then performed in multiple views using a 4 Fr. 3DRC catheter. Left Ventriculography was performed in CARRASCO projection using a 4 Fr. Pigtail catheter. LV to AO pullback pressures were then recorded.The images were reviewed and options discussed. A decision was then made to proceed with an Intervention, IVUS or other adjunct procedure. HS2 Guide catheter was inserted and engaged into the RCA. BMW Flint Guide wire was advanced t o the RCA. Emerge 2.0 x 12 Balloon catheter was inserted. Balloon catheter was advanced across lesion in the right coronary, proximal. Angiogram performed pre balloon dilatation. PTCA balloon inflated a t 10 atms for 10 secs. Angiogram performed post balloon dilatation. Synergy 4.0 x 12 Drug Eluting dudley nt was inserted. Drug Eluting stent was advanced across the lesion in the right coronary, proximal. A ngiogram performed pre stent deployment. Angiogram performed post stent deployment. NC Emerge 4.0 x 8 Balloon catheter was inserted. Balloon catheter was advanced across lesion in the right coronary, pr oximal. Angiogram performed pre balloon dilatation. Angiogram performed post balloon dilatation. Th e arterial 4 fr sheath in right groin was pulled and manual compression applied until hemostasis is a chieved.. The arterial sheath was pulled and a Mynx closure device was deployed for hemostasis INTERVENTION INFORMATION LESION SITE: RCA (Proximal) Lesion Complexity: Non-High/Non-C, lesion at bifurcation: No, thrombus present: No, lesion length: 12 mm, culprit lesion: Yes Pre Stenosis: 85 % PROCEDURE: Drug Eluting Stent with pre and post dilatation Post Stenosis: 0 % Post intervention DEVYN flow: 3 Lesion Devices: Medtronic 6 Fr HSII 100cm Guide Catheter Loo .014 BMW Flint Straight 190cm Axel Sci EMERGE MR 2.00x12 BALLOON Axel Sci Synergy MR CARLOS 4.00x12 Axel Sci NC EMERGE MR 4.00x08 BALLOON COMPLICATIONS No Complications PROCEDURE MEDICATIONS Versed 1 mg IV Oxygen: 2 L/min via nasal cannula Amiodarone 500mg / 100ml D5W 103 ml running at 618 ml/hr IV started 07/04/2018 08:49:52 Amiodarone bolus completed 07/04/2018 08:58:19 Amiodarone 500mg / 100ml D5W @ 33 ml/hr (decreased rate) @ 07/04/2018 08:58:52 Heparin 6000 unit(s) IV 07/04/2018 08:25:54 Nitro 200 mcg IC 07/04/2018 08:27:42 Nitro 200 mcg IC 07/04/2018 08:27:42 IV Bolus: .9 NaCl 300 ml total 07/04/2018 08:26:57 SUMMARY OF HEMODYNAMIC DATA Time AIR REST ECG 07:16:26 AO 121/75 (94) SA 07:45:22 LV 128/6, 19 07:54:13 LV 144/8, 23 07:54:20 LV 141/0, 17 07:55:53 LV 144/3, 23 07:55:59 LVp 151/1, 12 07:56:05 AOp 138/89 (107) 07:56:10 RM AIR REST 09:08:54 Signed By Werner Wall MD On 07/04/2018 9:36:25 AM Werner Wall MD
--- NOTE | 2018-07-04 10:36 | CRPHASE1 ---
Patient Data/Charges Phase II Referral:: [facility] Start Phase II:: FOLLOWING OFFICE VISIT WITH OYSTER FISHERMAN Risk Factors/Lifestyle Smoking Status: Never smoker Hx Hypertension: Yes Hx Diabetes Mellitus Type 2: Yes Hx Metabolic Disorders: Yes Hx Dyslipidemia: Yes Hx Obesity: Yes Height: 5 ft 5 in - BMI 39.7 Stress: Home/Family Substance Abuse: No Risk Factor for Sedentary Lifestyle: Moderate Risk Issues Affecting Care:: Cultural/Druze - JEW. FAMILY AT BEDSIDE Knowledge of Condition:: Yes Learning Preferences: Verbal, Written Medical/Surgical History [place]:: No Cardiomyopathy:: Yes Diabetes:: Yes Diabetes Type II:: Yes Hypertension:: Yes Dyslipidemia:: Yes Renal:: Yes - EARLY STAGE RENAL FAILURE Discharge/Home/Social Eval Discharge Disposition: Home
--- NOTE | 2018-07-04 10:39 | CRPHASE1_ITS ---
Patient Data/Charges Phase II Referral:: [facility] Start Phase II:: FOLLOWING OFFICE VISIT WITH SECURITY TECHNICIAN Risk Factors/Lifestyle Smoking Status: Never smoker Hx Hypertension: Yes Hx Diabetes Mellitus Type 2: Yes Hx Metabolic Disorders: Yes Hx Dyslipidemia: Yes Hx Obesity: Yes Height: 5 ft 5 in - BMI 39.7 Stress: Home/Family Substance Abuse: No Risk Factor for Sedentary Lifestyle: Moderate Risk Issues Affecting Care:: Cultural/Spiritism - SCIENTOLOGIST. FAMILY AT BEDSIDE Knowledge of Condition:: Yes Learning Preferences: Verbal, Written Medical/Surgical History [place]:: No Cardiomyopathy:: Yes Diabetes:: Yes Diabetes Type II:: Yes Hypertension:: Yes Dyslipidemia:: Yes Renal:: Yes - EARLY STAGE RENAL FAILURE Discharge/Home/Social Eval Discharge Disposition: Home
--- NOTE | 2018-07-04 10:39 | CRPH1.INSTRU ---
General Education CAD and cardiac anatomy and function:: Patient communicates acknowledgment - FAMILY AT BEDSIDE, Family communicates acknowledgment Explanation of diagnoses and procedures:: Patient communicates acknowledgment, Family communicates acknowledgment Sign/Symptoms of [place]:: Patient communicates acknowledgment, Family communicates acknowledgment Antiplatelet therapy: Patient communicates acknowledgment, Family communicates acknowledgment Proper use of NTG-SL: Not instructed Emergency procedures and activation of EMS: Patient communicates acknowledgment, Family communicates acknowledgment Compliance of all prescribed medications: Patient communicates acknowledgment, Family communicates acknowledgment Smoking Patient Nicotine/Smoking Risk Factors Are:: Never smoked Dyslipidemia Patient Dyslipidemia Risk Factors Are:: Total Cholesterol, Triglycerides, HDL, LDL Recommendations Include:: Lipid profile not available, Reviewed NCEP/ATP guidelines, Therapeutic Lifestyle Change dietary guidelines Dyslipidemia Response Code:: Patient communicates acknowledgment, Family communicates acknowledgment Overweight/Obesity Patient Overweight/Obesity Risk Factors Are:: Obesity - > or = 30 Recommendations Include:: Weight loss of 5-10%, Reduced calorie diet, Exercise 5-7 times/week Overweight/Obesity:: Patient communicates acknowledgment, Family communicates acknowledgment Hypertension Recommendations Include:: BP <130/80 if diabetic, DASH dietary guidelines, Decrease/maintain normal body weight, Moderation of ETOH Hypertension:: Patient communicates acknowledgment, Family communicates acknowledgment Heart Disease Heart Disease Response Code:: Patient communicates acknowledgment, Family communicates acknowledgment Diabetes Patient Diabetes Risk Factors Are:: Elevated blood sugars Recommendations Include:: Maintain HgbA1c of 6% or less, Monitor blood sugar as prescribed, Diabetic dietary guidelines, Decrease/maintain body weight Diabetes:: Patient communicates acknowledgment, Family communicates acknowledgment Metabolic Syndrome Patient Metabolic Syndrome Risk Factors Are [3 of 5]:: Fasting blood sugar > 100 mg/dL, Waist circumference > 35 [female] or 40 [male], High triglyceride >150, Hypertension, Low HDL <40 [male] or < 50 [female] Recommendations Include:: Reinforce compliance to risk factor modifications, Patient is diabetic, Encouraged follow-up with Primary Care Physician Metabolic Syndrome Response Code:: Patient communicates acknowledgment, Family communicates acknowledgment Sedentary Patient Sedentary Risk Factors Are:: Lack of regular exercise Recommendations Include:: Aerobic exercise 5-7 times/week for 20-30 minutes continuously, Benefits of regular exercise, Discussed home walking program, Monitored Outpatient Cardiac Rehab Sedentary Response Code:: Patient communicates acknowledgment, Family communicates acknowledgment Stress Recommendations Include:: Identification of stressors, and assessment of coping skills, Stress management techniques Stress Response Code:: Patient communicates acknowledgment, Family communicates acknowledgment
--- NOTE | 2018-07-04 10:42 | CRPH1.INST_ITS ---
General Education CAD and cardiac anatomy and function:: Patient communicates acknowledgment - FAMILY AT BEDSIDE, Family communicates acknowledgment Explanation of diagnoses and procedures:: Patient communicates acknowledgment, Family communicates acknowledgment Sign/Symptoms of [place]:: Patient communicates acknowledgment, Family communicates acknowledgment Antiplatelet therapy: Patient communicates acknowledgment, Family communicates acknowledgment Proper use of NTG-SL: Not instructed Emergency procedures and activation of EMS: Patient communicates acknowledgment, Family communicates acknowledgment Compliance of all prescribed medications: Patient communicates acknowledgment, Family communicates acknowledgment Smoking Patient Nicotine/Smoking Risk Factors Are:: Never smoked Dyslipidemia Patient Dyslipidemia Risk Factors Are:: Total Cholesterol, Triglycerides, HDL, LDL Recommendations Include:: Lipid profile not available, Reviewed NCEP/ATP guidelines, Therapeutic Lifestyle Change dietary guidelines Dyslipidemia Response Code:: Patient communicates acknowledgment, Family communicates acknowledgment Overweight/Obesity Patient Overweight/Obesity Risk Factors Are:: Obesity - > or = 30 Recommendations Include:: Weight loss of 5-10%, Reduced calorie diet, Exercise 5-7 times/week Overweight/Obesity:: Patient communicates acknowledgment, Family communicates acknowledgment Hypertension Recommendations Include:: BP <130/80 if diabetic, DASH dietary guidelines, Decrease/maintain normal body weight, Moderation of ETOH Hypertension:: Patient communicates acknowledgment, Family communicates acknowledgment Heart Disease Heart Disease Response Code:: Patient communicates acknowledgment, Family communicates acknowledgment Diabetes Patient Diabetes Risk Factors Are:: Elevated blood sugars Recommendations Include:: Maintain HgbA1c of 6% or less, Monitor blood sugar as prescribed, Diabetic dietary guidelines, Decrease/maintain body weight Diabetes:: Patient communicates acknowledgment, Family communicates acknowledgment Metabolic Syndrome Patient Metabolic Syndrome Risk Factors Are [3 of 5]:: Fasting blood sugar > 100 mg/dL, Waist circumference > 35 [female] or 40 [male], High triglyceride >150, Hypertension, Low HDL <40 [male] or < 50 [female] Recommendations Include:: Reinforce compliance to risk factor modifications, Patient is diabetic, Encouraged follow-up with Primary Care Physician Metabolic Syndrome Response Code:: Patient communicates acknowledgment, Family c ommunicates acknowledgment Sedentary Patient Sedentary Risk Factors Are:: Lack of regular exercise Recommendations Include:: Aerobic exercise 5-7 times/week for 20-30 minutes continuously, Benefits of regular exercise, Discussed home walking program, Monitored Outpatient Cardiac Rehab Sedentary Response Code:: Patient communicates acknowledgment, Family communicates acknowledgment Stress Recommendations Include:: Identification of stressors, and assessment of coping skills, Stress management techniques Stress Response Code:: Patient communicates acknowledgment, Family communicates acknowledgment
[2018-07-04 10:51] LABS: ACT Activated Clotting Time 235 sec (74-137)
--- NOTE | 2018-07-04 11:22 | NURSING ---
TRIED TO CALL REPORT EARLIER NURSE WAS BUSY WITH A PATIENT RECALLED AND GAVE REPORT
[2018-07-04 12:15] LABS: Bedside Glucose 190 mg/dL (70-110)
[2018-07-04] MEDS: Pantoprazole Sodium 20 MG Tablet PO (12:31)
[2018-07-04] MEDS: Insulin Lispro 100 UNIT/ML INSULN.PEN SQ ×2 (12:31→17:00)
[2018-07-04] MEDS: Furosemide 40 MG Tablet PO (12:31)
[2018-07-04 17:00] LABS: Bedside Glucose 329 mg/dL (70-110)
--- NOTE | 2018-07-04 17:01 | PCM.PN.HOSP ---
Patient Problems: Active and Suspected Problems Paroxysmal A-fib (Acute) Atrial fibrillation and flutter (Acute) Cardiomyopathy (Acute) CHF (congestive heart failure) (Acute) Subjective: feeling better after the lasix last night and the cardiac cath this am with a stent to the RCA. Vitals/I&O's: Vital Signs Temp Pulse Resp BP Pulse Ox 97.6 F L 69 19 H 125/94 H 92 07/04/18 14:00 07/04/18 16:11 07/04/18 16:00 07/04/18 16:00 07/04/18 16:00 Oxygen Flow Rate (L/min) 2 Oxygen Delivery Method Room Air Weight: 238 lb 9.6 oz Body Mass Index (BMI) 39.6 Intake and Output for Last 24 Hours 07/02/18 07/03/18 07/04/18 23:59 23:59 23:59 Intake Total 360 / 360 1080 / 1080 494 / 494 Balance 360 / 360 1080 / 1080 494 / 494 General: Alert, Oriented x3, Cooperative, No apparent distress HEENT: Atraumatic, PERRLA, EOMI, Normocephalic Oral: Moist Mucosa Neck: Supple, No JVD Lungs: Clear to auscultation, Normal air movement, No rhonchi, No wheeze, No rales Cardiovascular: Tachycardic, Normal S1, Normal S2, No murmurs, - - irregular rhythm Abdomen: Soft, Non Tender, Non-Distended, No Hepato-splenomegaly Extremities: Capillary Refill Less than 3 Seconds, Edema Skin: No rashes, No breakdown Neurological: Neuro grossly intact, Sensory exam intact to light touch and pain Psych/Mental Status: Normal Affect, Appropriate Laboratory Results 07/03/18 21:29: POC Glucose 153 H 07/03/18 23:45: Urine Color Straw, Urine Clarity Clear, Urine pH 6.5, Ur Specific [place] 1.005, Urine Protein Negative, Urine Glucose (UA) Normal, Urine Ketones Negative, Urine Occult Blood Negative, Urine Nitrite Negative, Urine Bilirubin Negative, Urine Urobilinogen Normal, Ur Leukocyte Esterase Negative 07/04/18 05:00: Sodium 139, Potassium 4.1, Chloride 98, Carbon Dioxide 32.0, Anion Gap 9, BUN 29 H, Creatinine 1.61 H, Estim Creat Clear Calc 34.48, Est GFR (MDRD) Af Amer 54 L, Est GFR (MDRD) Non-Af 45 L, BUN/Creatinine Ratio 18.0, Glucose 172 H, Calcium 9.4 07/04/18 05:00: WBC 8.7, RBC 5.30, Hgb 15.6, Hct 47.3, MCV 89.2, MCH 29.4, MCHC 33.0, RDW 13.7, RDW Differential 44.2 H, Plt Count 157, MPV 10.0, Immature Gran % (Auto) 0.000, Neut % (Auto) 87.7 H, Lymph % (Auto) 9.2 L, [place] % (Auto) 2.3, Eos % (Auto) 0.6, Baso % (Auto) 0.2, Absolute Neuts (auto) 7.7, Absolute Lymphs (auto) 0.80 L, Total Counted Not Reportable 07/04/18 05:00: PT 13.6, INR 1.0, APTT 28.3 07/04/18 06:51: POC Glucose 209 H 07/04/18 08:42: Activated Clotting Time 235 H 07/04/18 12:10: POC Glucose 190 H 07/04/18 16:42: POC Glucose 329 H Current Medications Acetaminophen (Tylenol) 650 mg PO Q6H PRN PRN PRN Reason: Mild Pain (0-2/10) Albuterol/Ipratropium (Duoneb) 3 ml INHALATION Q6HWA.RT [facility] Last Admin: 07/04/18 13:00 Dose: Not Given Aspirin (Aspirin, Baby) 81 mg PO DAILY@0800 [facility] Last Admin: 07/04/18 05:33 Dose: 81 mg Atorvastatin Calcium (Lipitor) 10 mg PO QHS [facility] Last Admin: 07/03/18 21:32 Dose: 10 mg Atropine Sulfate () 0.5 mg IV UD PRN PRN Reason: HR <50 bpm Dextrose (D50w Syringe) 0 gm IV X1 PRN; Protocol PRN Reason: Hypoglycemia Furosemide (Lasix) 40 mg PO DAILY [facility] Last Admin: 07/04/18 12:31 Dose: 40 mg Glucagon () 1 mg IM .X1 PRN PRN Reason: Hypoglycemia Heparin Sodium (Beef Lung) (Heparin 500 Unit/5 Ml (100/Ml)) 500 unit IV UD PRN PRN Reason: HEPARIN FLUSH Sodium Chloride () 1,000 mls @ 0 mls/hr IV .Q0M [facility] Last Admin: 07/04/18 05:48 Dose: 15 mls/hr Amiodarone HCl 360 mg/ (Dextrose) 200 mls @ 16.67 mls/hr CONT INF .Q12H1M [facility] Stop: 07/05/18 08:59 Last Admin: 07/04/18 15:34 Dose: 16.67 mls/hr Sodium Chloride () 1,000 mls @ 15 mls/hr IV .Q48H [facility] Last Admin: 07/04/18 11:52 Dose: Not Given Sodium Chloride () 500 mls @ 15 mls/hr IV .[id number] [facility] Last Admin: 07/04/18 11:51 Dose: Not Given Insulin Human Lispro (Humalog Kwikpen (Bkc)) 0 unit SQ ACHS [facility]; Protocol Last Admin: 07/04/18 17:00 Dose: 5 units Labetalol HCl (Trandate) 5 mg IV X1 PRN PRN Reason: SBP > 160 when pulling sheath Stop: 07/06/18 09:00 Lorazepam (Ativan) 1 mg PO Q6H PRN PRN PRN Reason: BACK SPASMS/ANXIETY Magnesium Hydroxide (Milk Of Magnesia) 30 ml PO DAILY PRN PRN Reason: Constipation Metoclopramide HCl (Reglan) 5 mg IV Q6 PRN PRN Reason: NAUSEA/VOMITING Metoprolol Tartrate (Lopressor (Beta Yosef)) 100 mg PO BID [facility] Last Admin: 07/04/18 05:32 Dose: 100 mg Morphine Sulfate () 2 mg IV Q4H PRN PRN PRN Reason: Mild back pain (0-2/10) Pantoprazole Sodium (Protonix) 20 mg PO DAILY [facility] Last Admin: 07/04/18 12:31 Dose: 20 mg Sodium Chloride () 5 - 15 ml IV UD PRN PRN Reason: SALINE FLUSH Last Admin: 07/04/18 05:49 Dose: 5 ml Sodium Chloride () 500 ml IV BOLUS PRN PRN Reason: VASO-VAGAL PROTOCOL Ticagrelor (Brilinta) 90 mg PO BID [facility] Last Admin: 07/04/18 05:32 Dose: 90 mg Medical Necessity - Tobacco Use Smoking Status: Never smoker Assessment/Plan All Active Problems Paroxysmal A-fib (Acute) Atrial fibrillation and flutter (Acute) Cardiomyopathy (Acute) CHF (congestive heart failure) (Acute) 1. Paroxysmal a-fib/HTN/HLD - metoprolol to 100 mg BID and will monitor - Continue to hold his HCTZ and AMBER as his creatinine is still elevated, now 1.61, will continue to monitor - CHADS2 is 3 and he will likely need anticoagulation prior to discharge - C/w asa and lipitor - C/w to cardiology with stent to the RCA, will add brilinta - On amiodarone for rhythm control, will plan for SHAINA in the am and possible cardioversion - Echo with EF 50% and mild global hypokinesis - Lasix 40 mg PO daily 2. DM2 - will hold his metformin, may be able to continue if GFR >30 - SSI and accuchecks 3. GERD - stable - C/w his home PPI 4. TSH elevation - He is currently in an acute setting with stress making the elevated level of his TSH unlikely to correlate with actual activity - He will need outpatient follow-up DVT: Heparin gtt Diet: Cardiac Code Visit Inpatient E&M: 59882 Subs Hosp L2
--- NOTE | 2018-07-04 17:09 | PN_ITS ---
Patient Problems: Active and Suspected Problems Paroxysmal A-fib (Acute) Atrial fibrillation and flutter (Acute) Cardiomyopathy (Acute) CHF (congestive heart failure) (Acute) Subjective: feeling better after the lasix last night and the cardiac cath this am with a stent to the RCA. Vitals/I&O's: Vital Signs Temp Pulse Resp BP Pulse Ox 97.6 F L 69 19 H 125/94 H 92 07/04/18 14:00 07/04/18 16:11 07/04/18 16:00 07/04/18 16:00 07/04/18 16:00 Oxygen Flow Rate (L/min) 2 Oxygen Delivery Method Room Air Weight: 238 lb 9.6 oz Body Mass Index (BMI) 39.6 Intake and Output for Last 24 Hours 07/02/18 07/03/18 07/04/18 23:59 23:59 23:59 Intake Total 360 / 360 1080 / 1080 494 / 494 Balance 360 / 360 1080 / 1080 494 / 494 General: Alert, Oriented x3, Cooperative, No apparent distress HEENT: Atraumatic, PERRLA, EOMI, Normocephalic Oral: Moist Mucosa Neck: Supple, No JVD Lungs: Clear to auscultation, Normal air movement, No rhonchi, No wheeze, No rales Cardiovascular: Tachycardic, Normal S1, Normal S2, No murmurs, - - irregular rhythm Abdomen: Soft, Non Tender, Non-Distended, No Hepato-splenomegaly Extremities: Capillary Refill Less than 3 Seconds, Edema Skin: No rashes, No breakdown Neurological: Neuro grossly intact, Sensory exam intact to light touch and pain Psych/Mental Status: Normal Affect, Appropriate Laboratory Results 07/03/18 21:29: POC Glucose 153 H 07/03/18 23:45: Urine Color Straw, Urine Clarity Clear, Urine pH 6.5, Ur Specific [place] 1.005, Urine Protein Negative, Urine Glucose (UA) Normal, Urine Ketones Negative, Urine Occult Blood Negative, Urine Nitrite Negative, Urine Bilirubin Negative, Urine Urobilinogen Normal, Ur Leukocyte Esterase Negative 07/04/18 05:00: Sodium 139, Potassium 4.1, Chloride 98, Carbon Dioxide 32.0, Anion Gap 9, BUN 29 H, Creatinine 1.61 H, Estim Creat Clear Calc 34.48, Est GFR (MDRD) Af Amer 54 L, Est GFR (MDRD) Non-Af 45 L, BUN/Creatinine Ratio 18.0, Glucose 172 H, Calcium 9.4 07/04/18 05:00: WBC 8.7, RBC 5.30, Hgb 15.6, Hct 47.3, MCV 89.2, MCH 29.4, MCHC 33.0, RDW 13.7, RDW Differential 44.2 H, Plt Count 157, MPV 10.0, Immature Gran % (Auto) 0.000, Neut % (Auto) 87.7 H, Lymph % (Auto) 9.2 L, [place] % (Auto) 2.3, Eos % (Auto) 0.6, Baso % (Auto) 0.2, Absolute Neuts (auto) 7.7, Absolute Lymphs (auto) 0.80 L, Total Counted Not Reportable 07/04/18 05:00: PT 13.6, INR 1.0, APTT 28.3 07/04/18 06:51: POC Glucose 209 H 07/04/18 08:42: Activated Clotting Time 235 H 07/04/18 12:10: POC Glucose 190 H 07/04/18 16:42: POC Glucose 329 H Current Medications Acetaminophen (Tylenol) 650 mg PO Q6H PRN PRN PRN Reason: Mild Pain (0-2/10) Albuterol/Ipratropium (Duoneb) 3 ml INHALATION Q6HWA.RT [facility] Last Admin: 07/04/18 13:00 Dose: Not Given Aspirin (Aspirin, Baby) 81 mg PO DAILY@0800 [facility] Last Admin: 07/04/18 05:33 Dose: 81 mg Atorvastatin Calcium (Lipitor) 10 mg PO QHS [facility] Last Admin: 07/03/18 21:32 Dose: 10 mg Atropine Sulfate () 0.5 mg IV UD PRN PRN Reason: HR <50 bpm Dextrose (D50w Syringe) 0 gm IV X1 PRN; Protocol PRN Reason: Hypoglycemia Furosemide (Lasix) 40 mg PO DAILY [facility] Last Admin: 07/04/18 12:31 Dose: 40 mg Glucagon () 1 mg IM .X1 PRN PRN Reason: Hypoglycemia Heparin Sodium (Beef Lung) (Heparin 500 Unit/5 Ml (100/Ml)) 500 unit IV UD PRN PRN Reason: HEPARIN FLUSH Sodium Chloride () 1,000 mls @ 0 mls/hr IV .Q0M [facility] Last Admin: 07/04/18 05:48 Dose: 15 mls/hr Amiodarone HCl 360 mg/ (Dextrose) 200 mls @ 16.67 mls/hr CONT INF .Q12H1M [facility] Stop: 07/05/18 08:59 Last Admin: 07/04/18 15:34 Dose: 16.67 mls/hr Sodium Chloride () 1,000 mls @ 15 mls/hr IV .Q48H [facility] Last Admin: 07/04/18 11:52 Dose: Not Given Sodium Chloride () 500 mls @ 15 mls/hr IV .[id number] [facility] Last Admin: 07/04/18 11:51 Dose: Not Given Insulin Human Lispro (Humalog Kwikpen (Bkc)) 0 unit SQ ACHS [facility]; Protocol Last Admin: 07/04/18 17:00 Dose: 5 units Labetalol HCl (Trandate) 5 mg IV X1 PRN PRN Reason: SBP > 160 when pulling sheath Stop: 07/06/18 09:00 Lorazepam (Ativan) 1 mg PO Q6H PRN PRN PRN Reason: BACK SPASMS/ANXIETY Magnesium Hydroxide (Milk Of Magnesia) 30 ml PO DAILY PRN PRN Reason: Constipation Metoclopramide HCl (Reglan) 5 mg IV Q6 PRN PRN Reason: NAUSEA/VOMITING Metoprolol Tartrate (Lopressor (Beta Yosef)) 100 mg PO BID [facility] Last Admin: 07/04/18 05:32 Dose: 100 mg Morphine Sulfate () 2 mg IV Q4H PRN PRN PRN Reason: Mild back pain (0-2/10) Pantoprazole Sodium (Protonix) 20 mg PO DAILY [facility] Last Admin: 07/04/18 12:31 Dose: 20 mg Sodium Chloride () 5 - 15 ml IV UD PRN PRN Reason: SALINE FLUSH Last Admin: 07/04/18 05:49 Dose: 5 ml Sodium Chloride () 500 ml IV BOLUS PRN PRN Reason: VASO-VAGAL PROTOCOL Ticagrelor (Brilinta) 90 mg PO BID [facility] Last Admin: 07/04/18 05:32 Dose: 90 mg Medical Necessity - Tobacco Use Smoking Status: Never smoker Assessment/Plan All Active Problems Paroxysmal A-fib (Acute) Atrial fibrillation and flutter (Acute) Cardiomyopathy (Acute) CHF (congestive heart failure) (Acute) 1. Paroxysmal a-fib/HTN/HLD - metoprolol to 100 mg BID and will monitor - Continue to hold his HCTZ and AMBER as his creatinine is still elevated, now 1.61, will continue to monitor - CHADS2 is 3 and he will likely need anticoagulation prior to discharge - C/w asa and lipitor - C/w to cardiology with stent to the RCA, will add brilinta - On amiodarone for rhythm control, will plan for SHAINA in the am and possible cardioversion - Echo with EF 50% and mild global hypokinesis - Lasix 40 mg PO daily 2. DM2 - will hold his metformin, may be able to continue if GFR >30 - SSI and accuchecks 3. GERD - stable - C/w his home PPI 4. TSH elevation - He is currently in an acute setting with stress making the elevated level of his TSH unlikely to correlate with actual activity - He will need outpatient follow-up DVT: Heparin gtt Diet: Cardiac Code Visit Inpatient E&M: 06853 Subs Hosp L2
--- NOTE | 2018-07-04 18:57 | PCM.PN.CARD ---
Subjectve: The patient was evaluated earlier this day. He had undergone evaluation with diagnostic cardiac catheterization that led to RCA PCI. He was subsequently placed in the ICU for post PCI observation. He continued medical therapy and has subsequently been noted to have, with respect to his cardiac dysrhythmia, conversion to sinus rhythm. Has had no new acute events. Objective: Vital Signs Temp Pulse Resp BP Pulse Ox 97.7 F L 79 16 108/69 94 07/04/18 17:00 07/04/18 18:00 07/04/18 18:00 07/04/18 18:00 07/04/18 18:00 Oxygen Flow Rate (L/min) 2 Oxygen Delivery Method Room Air Weight: 238 lb 9.6 oz Body Mass Index (BMI) 39.6 Intake and Output for Last 24 Hours 07/02/18 07/03/18 07/04/18 23:59 23:59 23:59 Intake Total 360 / 360 1080 / 1080 1498.8 / 1498.8 Output Total 350 / 350 Balance 360 / 360 1080 / 1080 1148.8 / 1148.8 General: Awake, Alert, Oriented x 3, Cooperative, No Acute Distress HEENT: Atraumatic, Normocephalic, PERRL, EOMI, Sclera Non Icteric Oral: Moist Mucosa Neck: Supple, Good ROM, No JVD Lungs: Diminished Josr Bases Cardiovascular: Regular Rhythm, Normal S1, Normal S2 Vascular: No Carotid Bruits, Normal Femoral Pulses Abdomen: Bowel Sounds Present, Soft, Non Tender Extremities: Mild RLE Edema, Mild LLE Edema 07/03/18 23:45: Urine Color Straw, Urine Clarity Clear, Urine pH 6.5, Ur Specific [place] 1.005, Urine Protein Negative, Urine Glucose (UA) Normal, Urine Ketones Negative, Urine Occult Blood Negative, Urine Nitrite Negative, Urine Bilirubin Negative, Urine Urobilinogen Normal, Ur Leukocyte Esterase Negative 07/04/18 05:00: Sodium 139, Potassium 4.1, Chloride 98, Carbon Dioxide 32.0, Anion Gap 9, BUN 29 H, Creatinine 1.61 H, Est GFR (MDRD) Af Amer 54 L, Est GFR (MDRD) Non-Af 45 L, BUN/Creatinine Ratio 18.0, Glucose 172 H, Calcium 9.4 07/04/18 05:00: WBC 8.7, RBC 5.30, Hgb 15.6, Hct 47.3, MCV 89.2, MCH 29.4, MCHC 33.0, RDW 13.7, RDW Differential 44.2 H, Plt Count 157, MPV 10.0, Immature Gran % (Auto) 0.000, Neut % (Auto) 87.7 H, Lymph % (Auto) 9.2 L, [place] % (Auto) 2.3, Eos % (Auto) 0.6, Baso % (Auto) 0.2, Absolute Neuts (auto) 7.7, Total Counted Not Reportable 07/04/18 05:00: PT 13.6, INR 1.0, APTT 28.3 Rhythm: Atrial flutter; subsequent conversion to sinus rhythm Cardiac Cath: See official report Medical Necessity - Tobacco Use Smoking Status: Never smoker Assessment/Plan 1. Atrial fibrillation/flutter At the present time the patient is status post additional medical therapy with antiarrhythmic therapy with IV amiodarone appears to have converted to sinus rhythm. He will continue medical management with rate control therapy, antiarrhythmic therapy, and anticoagulant therapy. Over time he may be considered for outpatient EP consultation for atrial flutter ablation. 2. Cardiomyopathy The patient does have what appears to be a mildly diminished LV systolic function. This may be secondary to multiple etiologies including his atrial dysrhythmia with a tachycardic induced cardiomyopathy superimposed upon his subsequent findings of underlying CAD with RCA disease which subsequently has required PCI. He will continue medical therapy. Ideally this will include his beta-monica therapy, AMBER inhibitor therapy or ARB depending upon his renal function, etc. 3. Congestive heart failure He will continue medical management as deemed appropriate. During this time his renal function will be followed. 4. CAD status post RCA PCI The patient subsequently was noted to have underlying CAD of the proximal RCA. He underwent RCA PCI. He will continue medical management as deemed appropriate. 5. Hyperlipidemia The patient has been on lipid-lowering therapy in the past. This can be continued. 6. Hypertension The patient states he has a long-standing history of hypertension. He believes it has been reasonably well controlled on medical management. 7. Hyperglycemia The patient states he was placed on hypoglycemic agents to try and bring his glucose levels under better control. 8. Renal insufficiency Based upon the patient's history he may have a history of chronic renal insufficiency. This will need be followed during his evaluation care as it may impact medical management, etc. The patient's case has been previously discussed with the patient and his family members as well as with the [facility] hospitalist team. This note was generated using a voice recognition system and there may be incorrect words, spelling or punctuation that were not noted when reviewing the office note prior to saving.
[2018-07-04] MEDS: Atorvastatin Calcium 10 MG Tablet PO (21:38)
[2018-07-04 21:51] LABS: Bedside Glucose 142 mg/dL (70-110)
[2018-07-05] VITALS (30 sets, daily range): BP systolic 108–148; BP diastolic 53–98; PULSE 57–124; RESP 14–24; TEMP 36.7–37.1; O2SAT 93–99
[2018-07-05 03:26] LABS: Bedside Glucose 184 mg/dL (70-110)
[2018-07-05] MEDS: 0.9% NaCl Peripheral Flush Adult/Peds IV ×4 (04:17→21:50)
[2018-07-05 04:27] LABS: Hematocrit 39.2 % (40-54); Mean Corp Hgb Conc 33.2 g/gl (32-36); Mean Corpuscular Hgb 29.9 pg (27.0-32.0); Mean Corpuscular Volume 90.1 fL (80-94); Mean Platelet Vol. 10.4 fl (6.2-12.0); Platelet Count 187 K/mm3 (150-450); RBC Distribution Width SD 44.8 fl (35.1-43.9); Red Blood Count 4.35 M/mm3 (4.6-6.2); White Blood Count 16.6 K/mm3 (4.4-11.0)
[2018-07-05 04:28] LABS: Scan Indicated on CBC? Y/N NO
[2018-07-05 04:35] LABS: International Normalized Ratio 1.2; Prothrombin Time (Protime)PT. 14.8 SECONDS (11.7-14.9)
[2018-07-05 04:43] LABS: Anion Gap 13 (5-15); BUN 47 mg/dL (7-18); BUN/Creat Ratio 22.7 RATIO (10-20); Calcium,Total 8.4 mg/dL (8.5-10.1); Chloride 100 mmol/L (98-107); Cholesterol 134 mg/dL (200); Creatinine, Serum 2.07 mg/dL (0.70-1.30); EST Glomerular Filtration Rate 33 mL/min (>60); Est Glom Filt Rate - Afr Amer 40 mL/min (>60); Estimated Creatinine Clearance 26.82 ml/min; Glucose 196 mg/dL (74-106); High Density Lipoprotein 34 mg/dL; Potassium 4.2 mmol/L (3.5-5.1); Sodium Level 140 mmol/L (136-145); Triglycerides 97 mg/dL; Very Low Density Lipoprotein 19 mg/dL (5-40)
--- NOTE | 2018-07-05 07:02 | EKG12_ITS ---
Test Reason : AM EKG Blood Pressure : / mmHG Vent. Rate : 085 BPM Atrial Rate : 241 BPM P-R Int : 000 ms QRS Dur : 088 ms QT Int : 430 ms P-R-T Axes : -83 059 064 degrees QTc Int : 511 ms Atrial flutter with variable A-V block Prolonged QT Abnormal ECG Confirmed by MARCIAL BHANDARI, JENNIFER ([id number]), design editor AUBREY STEIN ([id number] on 07/11/2018 3:13:42 PM Referred By: RADHA Confirmed By:JENNIFER CEJA MD
[2018-07-05 07:13] LABS: Partial Thromboplast Time 24.1 Seconds (24.1-36.2)
[2018-07-05 07:16] LABS: Bedside Glucose 156 mg/dL (70-110)
[2018-07-05] MEDS: Heparin Injection (Vial) 5,000 UNIT/ML VIAL 8000 UNIT IV (07:40)
[2018-07-05] MEDS: HEPARIN/D5w 25,000 UNITS 25,000 UNITS/250 ML IV.SOLN. 15 UNITS IV (07:40)
[2018-07-05] MEDS: Insulin Lispro 100 UNIT/ML INSULN.PEN SQ ×3 (07:48→17:08)
--- NOTE | 2018-07-05 08:42 | PCM.PN.HOSP ---
Patient Problems: Active and Suspected Problems Paroxysmal A-fib (Acute) Atrial fibrillation and flutter (Acute) Cardiomyopathy (Acute) CHF (congestive heart failure) (Acute) Subjective: Feeling ok, knows his rhythm is back in fib/flutter but does not feel it as he is rate controlled. Denies SOB, fevers, chills Vitals/I&O's: Vital Signs Temp Pulse Resp BP Pulse Ox 98.7 F 92 19 H 148/78 H 95 07/05/18 08:00 07/05/18 08:00 07/05/18 08:00 07/05/18 08:00 07/05/18 08:00 Oxygen Flow Rate (L/min) 3 Oxygen Delivery Method Room Air Weight: 238 lb 9.6 oz Body Mass Index (BMI) 39.6 Intake and Output for Last 24 Hours 07/03/18 07/04/18 07/05/18 23:59 23:59 23:59 Intake Total 1080 / 1080 1498.8 / 1498.8 453 / 453 Output Total 350 / 350 Balance 1080 / 1080 1148.8 / 1148.8 453 / 453 General: Alert, Oriented x3, Cooperative, No apparent distress HEENT: Atraumatic, EOMI, Normocephalic Oral: Moist Mucosa Neck: Supple, No JVD Lungs: Clear to auscultation, Normal air movement, No rhonchi, No wheeze, No rales Cardiovascular: Regular Rate, Normal S1, Normal S2, No murmurs, - - irregular rhythm Abdomen: Soft, Non Tender, Non-Distended, No Hepato-splenomegaly Extremities: Capillary Refill Less than 3 Seconds, Edema Skin: No rashes, No breakdown Neurological: Neuro grossly intact, Sensory exam intact to light touch and pain Psych/Mental Status: Normal Affect, Appropriate Laboratory Results 07/04/18 08:42: Activated Clotting Time 235 H 07/04/18 12:10: POC Glucose 190 H 07/04/18 16:42: POC Glucose 329 H 07/04/18 21:36: POC Glucose 142 H 07/05/18 02:52: POC Glucose 184 H 07/05/18 04:15: WBC 16.6 H, RBC 4.35 L, Hgb 13.0, Hct 39.2 L, MCV 90.1, MCH 29.9, MCHC 33.2, RDW 14.0, RDW Differential 44.8 H, Plt Count 187, MPV 10.4 07/05/18 04:15: Sodium 140, Potassium 4.2, Chloride 100, Carbon Dioxide 27.0, Anion Gap 13, BUN 47 H, Creatinine 2.07 H, Estim Creat Clear Calc 26.82, Est GFR (MDRD) Af Amer 40 L, Est GFR (MDRD) Non-Af 33 L, BUN/Creatinine Ratio 22.7 H, Glucose 196 H, Calcium 8.4 L, Triglycerides 97, Cholesterol 134, LDL Cholesterol 81, VLDL Cholesterol 19, HDL Cholesterol 34 L 07/05/18 04:15: PT 14.8, INR 1.2 07/05/18 04:15: APTT 24.1 07/05/18 07:10: POC Glucose 156 H Current Medications Acetaminophen (Tylenol) 650 mg PO Q6H PRN PRN PRN Reason: Mild Pain (0-2/10) Albuterol/Ipratropium (Duoneb) 3 ml INHALATION Q6HWA.RT [facility] Last Admin: 07/04/18 19:30 Dose: Not Given Aspirin (Aspirin, Baby) 81 mg PO DAILY@0800 [facility] Last Admin: 07/04/18 05:33 Dose: 81 mg Atorvastatin Calcium (Lipitor) 10 mg PO QHS [facility] Last Admin: 07/04/18 21:38 Dose: 10 mg Atropine Sulfate () 0.5 mg IV UD PRN PRN Reason: HR <50 bpm Dextrose (D50w Syringe) 0 gm IV X1 PRN; Protocol PRN Reason: Hypoglycemia Glucagon () 1 mg IM .X1 PRN PRN Reason: Hypoglycemia Heparin Sodium (Beef Lung) (Heparin 500 Unit/5 Ml (100/Ml)) 500 unit IV UD PRN PRN Reason: HEPARIN FLUSH Heparin Sodium (Porcine) (Heparin Na) 0 unit IV UD PRN; Protocol Sodium Chloride () 1,000 mls @ 0 mls/hr IV .Q0M [facility] Last Admin: 07/04/18 05:48 Dose: 15 mls/hr Amiodarone HCl 360 mg/ (Dextrose) 200 mls @ 16.67 mls/hr CONT INF .Q12H1M [facility] Stop: 07/05/18 08:59 Last Admin: 07/05/18 04:18 Dose: 16.67 mls/hr Sodium Chloride () 1,000 mls @ 15 mls/hr IV .Q48H [facility] Last Admin: 07/04/18 11:52 Dose: Not Given Sodium Chloride () 500 mls @ 15 mls/hr IV .[id number] [facility] Last Admin: 07/04/18 11:51 Dose: Not Given Heparin Sodium/Dextrose () 25,000 units in 250 mls @ 15 mls/hr IV .[id number] [facility]; Protocol Last Admin: 07/05/18 07:40 Dose: 15 mls/hr Insulin Human Lispro (Humalog Kwikpen (Bkc)) 0 unit SQ ACHS [facility]; Protocol Last Admin: 07/05/18 07:48 Dose: 1 units Labetalol HCl (Trandate) 5 mg IV X1 PRN PRN Reason: SBP > 160 when pulling sheath Stop: 07/06/18 09:00 Lorazepam (Ativan) 1 mg PO Q6H PRN PRN PRN Reason: BACK SPASMS/ANXIETY Magnesium Hydroxide (Milk Of Magnesia) 30 ml PO DAILY PRN PRN Reason: Constipation Metoclopramide HCl (Reglan) 5 mg IV Q6 PRN PRN Reason: NAUSEA/VOMITING Metoprolol Tartrate (Lopressor (Beta Yosef)) 100 mg PO BID [facility] Last Admin: 07/04/18 21:38 Dose: 100 mg Morphine Sulfate () 2 mg IV Q4H PRN PRN PRN Reason: Mild back pain (0-2/10) Pantoprazole Sodium (Protonix) 20 mg PO DAILY [facility] Last Admin: 07/04/18 12:31 Dose: 20 mg Sodium Chloride () 5 - 15 ml IV UD PRN PRN Reason: SALINE FLUSH Last Admin: 07/05/18 07:38 Dose: 10 ml Sodium Chloride () 500 ml IV BOLUS PRN PRN Reason: VASO-VAGAL PROTOCOL Ticagrelor (Brilinta) 90 mg PO BID [facility] Last Admin: 07/04/18 21:43 Dose: 90 mg Warfarin Sodium (Coumadin (Pbkc)) 4 mg PO X1 ONE Stop: 07/05/18 17:01 Medical Necessity - Tobacco Use Smoking Status: Never smoker Assessment/Plan All Active Problems Paroxysmal A-fib (Acute) Atrial fibrillation and flutter (Acute) Cardiomyopathy (Acute) CHF (congestive heart failure) (Acute) 1. Paroxysmal a-fib/HTN/HLD - metoprolol to 100 mg BID and will monitor - Continue to hold his HCTZ and AMBER as his creatinine is still elevated, now 2.07, will continue to monitor will discuss with cardiology about backing off his lasix - CHADS2 is 3 and he will likely need anticoagulation prior to discharge - C/w asa and lipitor - s/p RCA stent, c/w brillinta and coumadin - On amiodarone for rhythm control, may still need SHAINA for possible cardioversion since he back in fib/flutter, restart heparin gtt for the possibility - Echo with EF 50% and mild global hypokinesis 2. DM2 - will hold his metformin, may be able to continue if GFR >30 - SSI and accuchecks 3. GERD - stable - C/w his home PPI 4. TSH elevation - He is currently in an acute setting with stress making the elevated level of his TSH unlikely to correlate with actual activity - He will need outpatient follow-up 5. Leukocytosis - unsure of etiology - He is afebrile at the moment so concern for infection is low - may be stress response from cath, if he spike a temp, will obtain cultures DVT: Heparin gtt/coumadin Diet: Cardiac Code Visit Inpatient E&M: 83622 Subs Hosp L2
--- NOTE | 2018-07-05 08:49 | PN_ITS ---
Patient Problems: Active and Suspected Problems Paroxysmal A-fib (Acute) Atrial fibrillation and flutter (Acute) Cardiomyopathy (Acute) CHF (congestive heart failure) (Acute) Subjective: Feeling ok, knows his rhythm is back in fib/flutter but does not feel it as he is rate controlled. Denies SOB, fevers, chills Vitals/I&O's: Vital Signs Temp Pulse Resp BP Pulse Ox 98.7 F 92 19 H 148/78 H 95 07/05/18 08:00 07/05/18 08:00 07/05/18 08:00 07/05/18 08:00 07/05/18 08:00 Oxygen Flow Rate (L/min) 3 Oxygen Delivery Method Room Air Weight: 238 lb 9.6 oz Body Mass Index (BMI) 39.6 Intake and Output for Last 24 Hours 07/03/18 07/04/18 07/05/18 23:59 23:59 23:59 Intake Total 1080 / 1080 1498.8 / 1498.8 453 / 453 Output Total 350 / 350 Balance 1080 / 1080 1148.8 / 1148.8 453 / 453 General: Alert, Oriented x3, Cooperative, No apparent distress HEENT: Atraumatic, EOMI, Normocephalic Oral: Moist Mucosa Neck: Supple, No JVD Lungs: Clear to auscultation, Normal air movement, No rhonchi, No wheeze, No rales Cardiovascular: Regular Rate, Normal S1, Normal S2, No murmurs, - - irregular rhythm Abdomen: Soft, Non Tender, Non-Distended, No Hepato-splenomegaly Extremities: Capillary Refill Less than 3 Seconds, Edema Skin: No rashes, No breakdown Neurological: Neuro grossly intact, Sensory exam intact to light touch and pain Psych/Mental Status: Normal Affect, Appropriate Laboratory Results 07/04/18 08:42: Activated Clotting Time 235 H 07/04/18 12:10: POC Glucose 190 H 07/04/18 16:42: POC Glucose 329 H 07/04/18 21:36: POC Glucose 142 H 07/05/18 02:52: POC Glucose 184 H 07/05/18 04:15: WBC 16.6 H, RBC 4.35 L, Hgb 13.0, Hct 39.2 L, MCV 90.1, MCH 29.9, MCHC 33.2, RDW 14.0, RDW Differential 44.8 H, Plt Count 187, MPV 10.4 07/05/18 04:15: Sodium 140, Potassium 4.2, Chloride 100, Carbon Dioxide 27.0, Anion Gap 13, BUN 47 H, Creatinine 2.07 H, Estim Creat Clear Calc 26.82, Est GFR (MDRD) Af Amer 40 L, Est GFR (MDRD) Non-Af 33 L, BUN/Creatinine Ratio 22.7 H, Glucose 196 H, Calcium 8.4 L, Triglycerides 97, Cholesterol 134, LDL Cholesterol 81, VLDL Cholesterol 19, HDL Cholesterol 34 L 07/05/18 04:15: PT 14.8, INR 1.2 07/05/18 04:15: APTT 24.1 07/05/18 07:10: POC Glucose 156 H Current Medications Acetaminophen (Tylenol) 650 mg PO Q6H PRN PRN PRN Reason: Mild Pain (0-2/10) Albuterol/Ipratropium (Duoneb) 3 ml INHALATION Q6HWA.RT [facility] Last Admin: 07/04/18 19:30 Dose: Not Given Aspirin (Aspirin, Baby) 81 mg PO DAILY@0800 [facility] Last Admin: 07/04/18 05:33 Dose: 81 mg Atorvastatin Calcium (Lipitor) 10 mg PO QHS [facility] Last Admin: 07/04/18 21:38 Dose: 10 mg Atropine Sulfate () 0.5 mg IV UD PRN PRN Reason: HR <50 bpm Dextrose (D50w Syringe) 0 gm IV X1 PRN; Protocol PRN Reason: Hypoglycemia Glucagon () 1 mg IM .X1 PRN PRN Reason: Hypoglycemia Heparin Sodium (Beef Lung) (Heparin 500 Unit/5 Ml (100/Ml)) 500 unit IV UD PRN PRN Reason: HEPARIN FLUSH Heparin Sodium (Porcine) (Heparin Na) 0 unit IV UD PRN; Protocol Sodium Chloride () 1,000 mls @ 0 mls/hr IV .Q0M [facility] Last Admin: 07/04/18 05:48 Dose: 15 mls/hr Amiodarone HCl 360 mg/ (Dextrose) 200 mls @ 16.67 mls/hr CONT INF .Q12H1M [facility] Stop: 07/05/18 08:59 Last Admin: 07/05/18 04:18 Dose: 16.67 mls/hr Sodium Chloride () 1,000 mls @ 15 mls/hr IV .Q48H [facility] Last Admin: 07/04/18 11:52 Dose: Not Given Sodium Chloride () 500 mls @ 15 mls/hr IV .[id number] [facility] Last Admin: 07/04/18 11:51 Dose: Not Given Heparin Sodium/Dextrose () 25,000 units in 250 mls @ 15 mls/hr IV .[id number] [facility]; Protocol Last Admin: 07/05/18 07:40 Dose: 15 mls/hr Insulin Human Lispro (Humalog Kwikpen (Bkc)) 0 unit SQ ACHS [facility]; Protocol Last Admin: 07/05/18 07:48 Dose: 1 units Labetalol HCl (Trandate) 5 mg IV X1 PRN PRN Reason: SBP > 160 when pulling sheath Stop: 07/06/18 09:00 Lorazepam (Ativan) 1 mg PO Q6H PRN PRN PRN Reason: BACK SPASMS/ANXIETY Magnesium Hydroxide (Milk Of Magnesia) 30 ml PO DAILY PRN PRN Reason: Constipation Metoclopramide HCl (Reglan) 5 mg IV Q6 PRN PRN Reason: NAUSEA/VOMITING Metoprolol Tartrate (Lopressor (Beta Yosef)) 100 mg PO BID [facility] Last Admin: 07/04/18 21:38 Dose: 100 mg Morphine Sulfate () 2 mg IV Q4H PRN PRN PRN Reason: Mild back pain (0-2/10) Pantoprazole Sodium (Protonix) 20 mg PO DAILY [facility] Last Admin: 07/04/18 12:31 Dose: 20 mg Sodium Chloride () 5 - 15 ml IV UD PRN PRN Reason: SALINE FLUSH Last Admin: 07/05/18 07:38 Dose: 10 ml Sodium Chloride () 500 ml IV BOLUS PRN PRN Reason: VASO-VAGAL PROTOCOL Ticagrelor (Brilinta) 90 mg PO BID [facility] Last Admin: 07/04/18 21:43 Dose: 90 mg Warfarin Sodium (Coumadin (Pbkc)) 4 mg PO X1 ONE Stop: 07/05/18 17:01 Medical Necessity - Tobacco Use Smoking Status: Never smoker Assessment/Plan All Active Problems Paroxysmal A-fib (Acute) Atrial fibrillation and flutter (Acute) Cardiomyopathy (Acute) CHF (congestive heart failure) (Acute) 1. Paroxysmal a-fib/HTN/HLD - metoprolol to 100 mg BID and will monitor - Continue to hold his HCTZ and AMBER as his creatinine is still elevated, now 2.07, will continue to monitor will discuss with cardiology about backing off his lasix - CHADS2 is 3 and he will likely need anticoagulation prior to discharge - C/w asa and lipitor - s/p RCA stent, c/w brillinta and coumadin - On amiodarone for rhythm control, may still need SHAINA for possible cardiover penny since he back in fib/flutter, restart heparin gtt for the possibility - Echo with EF 50% and mild global hypokinesis 2. DM2 - will hold his metformin, may be able to continue if GFR >30 - SSI and accuchecks 3. GERD - stable - C/w his home PPI 4. TSH elevation - He is currently in an acute setting with stress making the elevated level of his TSH unlikely to correlate with actual activity - He will need outpatient follow-up 5. Leukocytosis - unsure of etiology - He is afebrile at the moment so concern for infection is low - may be stress response from cath, if he spike a temp, will obtain cultures DVT: Heparin gtt/coumadin Diet: Cardiac Code Visit Inpatient E&M: 21200 Subs Hosp L2
--- NOTE | 2018-07-05 09:01 | EKG12_ITS ---
Test Reason : RHYTHM CHANGE Blood Pressure : / mmHG Vent. Rate : 067 BPM Atrial Rate : 067 BPM P-R Int : 170 ms QRS Dur : 088 ms QT Int : 442 ms P-R-T Axes : 071 059 065 degrees QTc Int : 467 ms Sinus rhythm with Premature atrial complexes Otherwise normal ECG Confirmed by MARCIAL BHANDARI, JENNIFER ([id number]), destination coordinator AUBREY STEIN ([id number] on 07/11/2018 3:13:27 PM Referred By: MARCIAL Confirmed By:JENNIFER CEJA MD
[2018-07-05] MEDS: Pantoprazole Sodium 20 MG Tablet PO (09:22)
[2018-07-05] MEDS: Aspirin 81 MG TAB.CHEW PO (09:22)
[2018-07-05] MEDS: Metoprolol Tartrate 100 MG Tablet PO ×2 (09:22→21:48)
[2018-07-05] MEDS: TICAGRELOR 90 MG TABLET PO ×2 (09:22→21:48)
--- NOTE | 2018-07-05 10:00 | EKG12_ITS ---
Test Reason : AM EKG Blood Pressure : / mmHG Vent. Rate : 064 BPM Atrial Rate : 113 BPM P-R Int : 000 ms QRS Dur : 086 ms QT Int : 444 ms P-R-T Axes : 072 058 060 degrees QTc Int : 458 ms Sinus tachycardia with occasional PACs Abnormal ECG Confirmed by MARCIAL BHANDARI, JENNIFER ([id number]), purchase request editor AUBREY STEIN ([id number] on 07/11/2018 3:14:25 PM Referred By: RADHA Confirmed By:JENNIFER CEJA MD
[2018-07-05 11:55] LABS: Bedside Glucose 167 mg/dL (70-110)
--- NOTE | 2018-07-05 15:13 | CHAPLAIN ---
Type of Pastoral Visit ___ Initial Visit _x__ Follow-up Visit ___ On-call Visit ___ General Patient Visit ___ Spiritual Assessment ___ Family Conference ___ Bereavement ___ Rapid Response ___ Code Blue ___ Other (describe below) Pastoral Care Referral From _x__ Patient ___ Family ___ Nurse ___ Physician ___ Vp Strategy ___ Damper Maker ___ Other (describe below) Sacrament/Intervention _x__ Active listening ___ Anointing ___ Sabianism ___ Bereavement ___ Communion _x__ Tori exploration ___ _x__ Life review _x__ Prayer ___ Reconciliation ___ Sacrament of Sick _x__ Supportive presence ___ Wedding ___ Other (describe below) Pastoral Comments
[2018-07-05 17:15] LABS: Bedside Glucose 172 mg/dL (70-110)
--- NOTE | 2018-07-05 18:40 | PN.CARD_ITS ---
Subjectve: The patient states he is feeling better overall. He notes his breathing has improved. He denies any ongoing chest discomfort. He also notes his lower extremity edema has improved. Objective: Vital Signs Temp Pulse Resp BP Pulse Ox 98.2 F 65 20 H 138/71 H 93 07/05/18 16:00 07/05/18 18:00 07/05/18 18:00 07/05/18 18:00 07/05/18 18:00 Oxygen Flow Rate (L/min) 2 Oxygen Delivery Method Room Air Weight: 238 lb 9.6 oz Body Mass Index (BMI) 39.6 Intake and Output for Last 24 Hours 07/03/18 07/04/18 07/05/18 23:59 23:59 23:59 Intake Total 1080 / 1080 1498.8 / 1498.8 1275 / 1275 Output Total 350 / 350 Balance 1080 / 1080 1148.8 / 1148.8 1274 / 1274 General: Awake, Alert, Oriented x 3, Cooperative, No Acute Distress HEENT: Atraumatic, Normocephalic, PERRL, EOMI, Sclera Non Icteric Oral: Moist Mucosa Neck: Supple, Good ROM, No JVD Lungs: Clear to auscultation Cardiovascular: Regular Rhythm, Normal S1, Normal S2 Vascular: Normal Femoral Pulses Abdomen: Bowel Sounds Present, Soft, Non Tender Extremities: Trace RLE Edema, Trace LLE Edema Neurological: No Focal Motor or Sensory Deficit 07/05/18 04:15: WBC 16.6 H, RBC 4.35 L, Hgb 13.0, Hct 39.2 L, MCV 90.1, MCH 29.9, MCHC 33.2, RDW 14.0, RDW Differential 44.8 H, Plt Count 187, MPV 10.4 07/05/18 04:15: Sodium 140, Potassium 4.2, Chloride 100, Carbon Dioxide 27.0, Anion Gap 13, BUN 47 H, Creatinine 2.07 H, Est GFR (MDRD) Af Amer 40 L, Est GFR (MDRD) Non-Af 33 L, BUN/Creatinine Ratio 22.7 H, Glucose 196 H, Calcium 8.4 L, Triglycerides 97, Cholesterol 134, LDL Cholesterol 81, VLDL Cholesterol 19, HDL Cholesterol 34 L 07/05/18 04:15: PT 14.8, INR 1.2 07/05/18 04:15: APTT 24.1 07/05/18 13:45: APTT 241.0 H* Rhythm: Sinus rhythm with paroxysmal atrial fibrillation/flutter Medical Necessity - Tobacco Use Smoking Status: Never smoker Assessment/Plan 1. Atrial fibrillation/flutter The patient has demonstrated evidence of paroxysmal atrial fibrillation/flutter. At the present time he is reverted back to sinus rhythm. He will continue rate control therapy, antiarrhythmic therapy, and anticoagulant therapy. Over time his IV antiarrhythmic therapy will converted to oral antiarrhythmic therapy. Also over time he may need to be considered for future adjunct of therapy with atrial relation/flutter ablation. 2. Cardiomyopathy The patient does have what appears to be a mildly diminished LV systolic function. This may be secondary to multiple etiologies including his atrial dysrhythmia with a tachycardic induced cardiomyopathy superimposed upon his subsequent findings of underlying CAD with RCA disease which subsequently has required PCI. He will continue medical therapy. Ideally this will include his beta-monica therapy, AMBER inhibitor therapy or ARB depending upon his renal function, etc. 3. Congestive heart failure He will continue medical management as deemed appropriate. During this time his renal function will be followed. 4. CAD status post RCA PCI The patient subsequently was noted to have underlying CAD of the proximal RCA. He underwent RCA PCI. He will continue medical management as deemed appropriate. 5. Hyperlipidemia The patient has been on lipid-lowering therapy in the past. This can be continued. 6. Hypertension The patient states he has a long-standing history of hypertension. He believes it has been reasonably well controlled on medical management. 7. Hyperglycemia The patient states he was placed on hypoglycemic agents to try and bring his glucose levels under better control. 8. Renal insufficiency Based upon the patient's history he may have a history of chronic renal insufficiency. His creatinine did increase status post diuresis and IV contrast load. His renal function will be followed. The patient's case has been previously discussed with the patient and his family members as well as with the [facility] hospitalist team. This note was generated using a voice recognition system and there may be incorrect words, spelling or punctuation that were not noted when reviewing the office note prior to saving.
--- NOTE | 2018-07-05 20:10 | NURSING ---
Patient IV to left arm noted to be reddened and swollen above IV. site. shift supervisor RN, Radha at bedside. Amiodarone stopped. Radha to assess and start new IV.
[2018-07-05 21:21] LABS: Partial Thromboplast Time 97.7 Seconds (24.1-36.2)
[2018-07-05] MEDS: Atorvastatin Calcium 40 MG Tablet PO (21:50)
[2018-07-06] VITALS (23 sets, daily range): BP systolic 96–147; BP diastolic 60–84; PULSE 54–118; RESP 16–24; TEMP 37.1; O2SAT 93–99
[2018-07-06 00:05] LABS: Bedside Glucose 119 mg/dL (70-110)
[2018-07-06] MEDS: Ipratropium/Albuterol Sulfate 3 ML AMPUL.NEB INHALATION ×3 (01:26→13:42)
[2018-07-06 02:51] LABS: Bedside Glucose 152 mg/dL (70-110)
[2018-07-06 03:20] LABS: Absolute Lymphocyte Count 1.87 X10^3/ul (0.83-4.51); Absolute Neutrophil Count 11.3 X10^3/uL (2.0-7.7); Basophil# 0.04 X10^3/uL; Basophil% 0.3 % (0-1); Eosinophil# 0.16 X10^3/uL; Eosinophils% 1.1 % (0-5); Hematocrit 38.5 % (40-54); Hemoglobin 12.7 g/dl (13.0-16.5); Lymphocyte # 1.87 X10^3/ul (4.0); Lymphocyte % 12.9 % (19-41); Mean Corpuscular Hgb 29.8 pg (27.0-32.0); Mean Corpuscular Volume 90.4 fL (80-94); Mean Platelet Vol. 10.2 fl (6.2-12.0); Monocyte# 1.15 X10^3/uL; Monocyte% 7.9 % (0-10); Neutrophil % 77.7 % (47-70); Platelet Count 165 K/mm3 (150-450); RBC Distribution Width CV 14.2 % (11.6-14.6); RBC Distribution Width SD 46.1 fl (35.1-43.9); Red Blood Count 4.26 M/mm3 (4.6-6.2); White Blood Count 14.5 K/mm3 (4.4-11.0)
[2018-07-06 03:21] LABS: POSITIVE COUNT NO; POSITIVE DIFFERENTIAL NO; POSITIVE MORPHOLOGY NO
[2018-07-06 03:26] LABS: International Normalized Ratio 1.2; Prothrombin Time (Protime)PT. 15.5 SECONDS (11.7-14.9)
[2018-07-06 03:28] LABS: Partial Thromboplast Time 79.6 Seconds (24.1-36.2)
[2018-07-06 03:32] LABS: Anion Gap 10 (5-15); BUN 50 mg/dL (7-18); BUN/Creat Ratio 26.7 RATIO (10-20); Calcium,Total 8.4 mg/dL (8.5-10.1); Chloride 99 mmol/L (98-107); Creatinine, Serum 1.87 mg/dL (0.70-1.30); EST Glomerular Filtration Rate 38 mL/min (>60); Est Glom Filt Rate - Afr Amer 45 mL/min (>60); Estimated Creatinine Clearance 29.69 ml/min; Glucose 144 mg/dL (74-106); Potassium 4.1 mmol/L (3.5-5.1); Sodium Level 138 mmol/L (136-145)
[2018-07-06] MEDS: HEPARIN/D5w 25,000 UNITS 25,000 UNITS/250 ML IV.SOLN. 15 UNITS IV (06:43)
[2018-07-06 06:50] LABS: Bedside Glucose 135 mg/dL (70-110)
[2018-07-06] MEDS: Pantoprazole Sodium 20 MG Tablet PO (09:44)
[2018-07-06] MEDS: TICAGRELOR 90 MG TABLET PO (09:44)
[2018-07-06] MEDS: Aspirin 81 MG TAB.CHEW PO (09:44)
[2018-07-06] MEDS: Metoprolol Tartrate 100 MG Tablet PO (09:44)
[2018-07-06] MEDS: Furosemide 20 MG Tablet PO (09:51)
--- NOTE | 2018-07-06 10:00 | EKG12_ITS ---
Test Reason : AM EKG Blood Pressure : / mmHG Vent. Rate : 054 BPM Atrial Rate : 054 BPM P-R Int : 172 ms QRS Dur : 092 ms QT Int : 480 ms P-R-T Axes : 063 051 054 degrees QTc Int : 455 ms Sinus bradycardia Otherwise normal ECG Confirmed by MARCIAL BHANDARI, JNENIFER ([id number]), movie editor AUBREY STEIN ([id number]) on 07/11/2018 2:19:24 PM Referred By: DR GARCIA Confirmed By:JENNIFER CEJA MD
[2018-07-06 10:02] LABS: Partial Thromboplast Time 86.1 Seconds (24.1-36.2)
[2018-07-06] MEDS: Amiodarone 200 MG Tablet PO ×3 (10:12→17:41)
[2018-07-06] MEDS: Insulin Lispro 100 UNIT/ML INSULN.PEN SQ (11:21)
--- NOTE | 2018-07-06 11:27 | PCM.PN.HOSP ---
Patient Problems: Active and Suspected Problems Paroxysmal A-fib (Acute) Atrial fibrillation and flutter (Acute) Cardiomyopathy (Acute) CHF (congestive heart failure) (Acute) Subjective: Feeling ok, since he has remained in sinus rhythm, he has not had SOB. States that if he needs O2 or CPAP in the future, he is able to have a generator and solar panels installed. Feels his swelling has gone down Vitals/I&O's: Vital Signs Temp Pulse Resp BP Pulse Ox 98.8 F 61 18 122/66 H 95 07/06/18 10:50 07/06/18 10:50 07/06/18 10:50 07/06/18 10:50 07/06/18 10:50 Oxygen Flow Rate (L/min) 2 Oxygen Delivery Method Room Air Weight: 238 lb 9.6 oz Body Mass Index (BMI) 39.6 Intake and Output for Last 24 Hours 07/04/18 07/05/18 07/06/18 23:59 23:59 23:59 Intake Total 1498.8 / 1498.8 1943 325.2 / 325.2 Output Total 350 / 350 Balance 1148.8 / 1148.8 1942 325.2 / 325.2 General: Alert, Oriented x3, Cooperative, No apparent distress HEENT: Atraumatic, EOMI, Normocephalic Oral: Moist Mucosa Neck: Supple, No JVD Lungs: Clear to auscultation, Normal air movement, No rhonchi, No wheeze, No rales, diminished at the bases Cardiovascular: Regular Rate, Normal S1, Normal S2, No murmurs, - - irregular rhythm Abdomen: Soft, Non Tender, Non-Distended, No Hepato-splenomegaly Extremities: Capillary Refill Less than 3 Seconds, trace Edema Skin: No rashes, No breakdown Neurological: Neuro grossly intact, Sensory exam intact to light touch and pain Psych/Mental Status: Normal Affect, Appropriate Laboratory Results 07/05/18 11:51: POC Glucose 167 H 07/05/18 13:45: APTT 241.0 H* 07/05/18 17:06: POC Glucose 172 H 07/05/18 20:22: APTT 97.7 H* 07/05/18 21:45: POC Glucose 119 H 07/06/18 02:39: POC Glucose 152 H 07/06/18 03:08: WBC 14.5 H, RBC 4.26 L, Hgb 12.7 L, Hct 38.5 L, MCV 90.4, MCH 29.8, MCHC 33.0, RDW 14.2, RDW Differential 46.1 H, Plt Count 165, MPV 10.2, Immature Gran % (Auto) 0.100, Neut % (Auto) 77.7 H, Lymph % (Auto) 12.9 L, [place] % (Auto) 7.9, Eos % (Auto) 1.1, Baso % (Auto) 0.3, Absolute Neuts (auto) 11.3 H, Absolute Lymphs (auto) 1.87, Total Counted Not Reportable 07/06/18 03:08: Sodium 138, Potassium 4.1, Chloride 99, Carbon Dioxide 29.0, Anion Gap 10, BUN 50 H, Creatinine 1.87 H, Estim Creat Clear Calc 29.69, Est GFR (MDRD) Af Amer 45 L, Est GFR (MDRD) Non-Af 38 L, BUN/Creatinine Ratio 26.7 H, Glucose 144 H, Calcium 8.4 L 07/06/18 03:08: PT 15.5 H, INR 1.2, APTT 79.6 H 07/06/18 06:37: POC Glucose 135 H 07/06/18 09:37: APTT 86.1 H Current Medications Acetaminophen (Tylenol) 650 mg PO Q6H PRN PRN PRN Reason: Mild Pain (0-2/10) Albuterol/Ipratropium (Duoneb) 3 ml INHALATION Q6HWA.RT [facility] Last Admin: 07/06/18 07:31 Dose: 3 ml Amiodarone HCl (Cordarone) 200 mg PO 4X/DAY [facility] Stop: 07/12/18 22:01 Last Admin: 07/06/18 10:12 Dose: 200 mg Amiodarone HCl (Cordarone) 200 mg PO TID [facility] Stop: 07/19/18 22:01 Amiodarone HCl (Cordarone) 200 mg PO BID [facility] Stop: 08/02/18 22:01 Amiodarone HCl (Cordarone) 200 mg PO DAILY [facility] Aspirin (Aspirin, Baby) 81 mg PO DAILY@0800 [facility] Last Admin: 07/06/18 09:44 Dose: 81 mg Atorvastatin Calcium (Lipitor) 40 mg PO QHS [facility] Last Admin: 07/05/18 21:50 Dose: 40 mg Atropine Sulfate () 0.5 mg IV UD PRN PRN Reason: HR <50 bpm Dextrose (D50w Syringe) 0 gm IV X1 PRN; Protocol PRN Reason: Hypoglycemia Furosemide (Lasix) 20 mg PO DAILY [facility] Last Admin: 07/06/18 09:51 Dose: 20 mg Glucagon () 1 mg IM .X1 PRN PRN Reason: Hypoglycemia Heparin Sodium (Beef Lung) (Heparin 500 Unit/5 Ml (100/Ml)) 500 unit IV UD PRN PRN Reason: HEPARIN FLUSH Heparin Sodium (Porcine) (Heparin Na) 0 unit IV UD PRN; Protocol Sodium Chloride () 1,000 mls @ 0 mls/hr IV .Q0M [facility] Last Admin: 07/04/18 05:48 Dose: 15 mls/hr Sodium Chloride () 1,000 mls @ 15 mls/hr IV .Q48H [facility] Last Admin: 07/06/18 10:13 Dose: Not Given Sodium Chloride () 500 mls @ 15 mls/hr IV .[id number] [facility] Last Admin: 07/05/18 21:47 Dose: Not Given Heparin Sodium/Dextrose () 25,000 units in 250 mls @ 15 mls/hr IV .[id number] [facility]; Protocol Last Admin: 07/06/18 06:43 Dose: 15 mls/hr Amiodarone HCl 360 mg/ (Dextrose) 200 mls @ 16.67 mls/hr CONT INF .Q12H [facility] Last Admin: 07/06/18 10:13 Dose: Not Given Insulin Human Lispro (Humalog Kwikpen (Bkc)) 0 unit SQ ACHS [facility]; Protocol Last Admin: 07/06/18 11:21 Dose: 3 units Lorazepam (Ativan) 1 mg PO Q6H PRN PRN PRN Reason: BACK SPASMS/ANXIETY Magnesium Hydroxide (Milk Of Magnesia) 30 ml PO DAILY PRN PRN Reason: Constipation Metoclopramide HCl (Reglan) 5 mg IV Q6 PRN PRN Reason: NAUSEA/VOMITING Metoprolol Tartrate (Lopressor (Beta Yosef)) 100 mg PO BID [facility] Last Admin: 07/06/18 09:44 Dose: 100 mg Morphine Sulfate () 2 mg IV Q4H PRN PRN PRN Reason: Mild back pain (0-2/10) Pantoprazole Sodium (Protonix) 20 mg PO DAILY [facility] Last Admin: 07/06/18 09:44 Dose: 20 mg Sodium Chloride () 5 - 15 ml IV UD PRN PRN Reason: SALINE FLUSH Last Admin: 07/05/18 21:50 Dose: 10 ml Sodium Chloride () 500 ml IV BOLUS PRN PRN Reason: VASO-VAGAL PROTOCOL Ticagrelor (Brilinta) 90 mg PO BID [facility] Last Admin: 07/06/18 09:44 Dose: 90 mg Warfarin Sodium (Coumadin (Pbkc)) 8 mg PO X1 ONE Stop: 07/06/18 17:01 Medical Necessity - Tobacco Use Smoking Status: Never smoker Assessment/Plan All Active Problems Paroxysmal A-fib (Acute) Atrial fibrillation and flutter (Acute) Cardiomyopathy (Acute) CHF (congestive heart failure) (Acute) 1. Paroxysmal a-fib/HTN/HLD/Cardiomyopathy likely ischemic/CAD s/p RCA stent - metoprolol to 100 mg BID and will monitor - Continue to hold his HCTZ and AMBER as his creatinine is still elevated, now 1.91, will continue to monitor - CHADS2 is 3 and he will likely need anticoagulation prior to discharge - C/w asa and lipitor - s/p RCA stent, c/w brillinta and coumadin, INR still 1.2, 8 mg coumadin tonight - On amiodarone for rhythm control, has maintained sinus rhythm and is on PO taper - Echo with EF 50% and mild global hypokinesis 2. DM2 - will hold his metformin, may be able to continue if GFR >30 - SSI and accuchecks - BG 144 3. GERD - stable - C/w his home PPI 4. TSH elevation - He is currently in an acute setting with stress making the elevated level of his TSH unlikely to correlate with actual activity - He will need outpatient follow-up 5. Leukocytosis - unsure of etiology - improving - He is afebrile at the moment so concern for infection is low - may be stress response from cath, if he spike a temp, will obtain cultures DVT: coumadin Diet: Cardiac Code Visit Inpatient E&M: 18913 Subs Hosp L2
[2018-07-06 11:30] LABS: Bedside Glucose 256 mg/dL (70-110)
--- NOTE | 2018-07-06 11:34 | PN_ITS ---
Patient Problems: Active and Suspected Problems Paroxysmal A-fib (Acute) Atrial fibrillation and flutter (Acute) Cardiomyopathy (Acute) CHF (congestive heart failure) (Acute) Subjective: Feeling ok, since he has remained in sinus rhythm, he has not had SOB. States that if he needs O2 or CPAP in the future, he is able to have a generator and solar panels installed. Feels his swelling has gone down Vitals/I&O's: Vital Signs Temp Pulse Resp BP Pulse Ox 98.8 F 61 18 122/66 H 95 07/06/18 10:50 07/06/18 10:50 07/06/18 10:50 07/06/18 10:50 07/06/18 10:50 Oxygen Flow Rate (L/min) 2 Oxygen Delivery Method Room Air Weight: 238 lb 9.6 oz Body Mass Index (BMI) 39.6 Intake and Output for Last 24 Hours 07/04/18 07/05/18 07/06/18 23:59 23:59 23:59 Intake Total 1498.8 / 1498.8 1943 325.2 / 325.2 Output Total 350 / 350 Balance 1148.8 / 1148.8 1942 325.2 / 325.2 General: Alert, Oriented x3, Cooperative, No apparent distress HEENT: Atraumatic, EOMI, Normocephalic Oral: Moist Mucosa Neck: Supple, No JVD Lungs: Clear to auscultation, Normal air movement, No rhonchi, No wheeze, No rales, diminished at the bases Cardiovascular: Regular Rate, Normal S1, Normal S2, No murmurs, - - irregular rhythm Abdomen: Soft, Non Tender, Non-Distended, No Hepato-splenomegaly Extremities: Capillary Refill Less than 3 Seconds, trace Edema Skin: No rashes, No breakdown Neurological: Neuro grossly intact, Sensory exam intact to light touch and pain Psych/Mental Status: Normal Affect, Appropriate Laboratory Results 07/05/18 11:51: POC Glucose 167 H 07/05/18 13:45: APTT 241.0 H* 07/05/18 17:06: POC Glucose 172 H 07/05/18 20:22: APTT 97.7 H* 07/05/18 21:45: POC Glucose 119 H 07/06/18 02:39: POC Glucose 152 H 07/06/18 03:08: WBC 14.5 H, RBC 4.26 L, Hgb 12.7 L, Hct 38.5 L, MCV 90.4, MCH 29.8, MCHC 33.0, RDW 14.2, RDW Differential 46.1 H, Plt Count 165, MPV 10.2, Immature Gran % (Auto) 0.100, Neut % (Auto) 77.7 H, Lymph % (Auto) 12.9 L, [place] % (Auto) 7.9, Eos % (Auto) 1.1, Baso % (Auto) 0.3, Absolute Neuts (auto) 11.3 H, Absolute Lymphs (auto) 1.87, Total Counted Not Reportable 07/06/18 03:08: Sodium 138, Potassium 4.1, Chloride 99, Carbon Dioxide 29.0, Anion Gap 10, BUN 50 H, Creatinine 1.87 H, Estim Creat Clear Calc 29.69, Est GFR (MDRD) Af Amer 45 L, Est GFR (MDRD) Non-Af 38 L, BUN/Creatinine Ratio 26.7 H, Glucose 144 H, Calcium 8.4 L 07/06/18 03:08: PT 15.5 H, INR 1.2, APTT 79.6 H 07/06/18 06:37: POC Glucose 135 H 07/06/18 09:37: APTT 86.1 H Current Medications Acetaminophen (Tylenol) 650 mg PO Q6H PRN PRN PRN Reason: Mild Pain (0-2/10) Albuterol/Ipratropium (Duoneb) 3 ml INHALATION Q6HWA.RT [facility] Last Admin: 07/06/18 07:31 Dose: 3 ml Amiodarone HCl (Cordarone) 200 mg PO 4X/DAY [facility] Stop: 07/12/18 22:01 Last Admin: 07/06/18 10:12 Dose: 200 mg Amiodarone HCl (Cordarone) 200 mg PO TID [facility] Stop: 07/19/18 22:01 Amiodarone HCl (Cordarone) 200 mg PO BID [facility] Stop: 08/02/18 22:01 Amiodarone HCl (Cordarone) 200 mg PO DAILY [facility] Aspirin (Aspirin, Baby) 81 mg PO DAILY@0800 [facility] Last Admin: 07/06/18 09:44 Dose: 81 mg Atorvastatin Calcium (Lipitor) 40 mg PO QHS [facility] Last Admin: 07/05/18 21:50 Dose: 40 mg Atropine Sulfate () 0.5 mg IV UD PRN PRN Reason: HR <50 bpm Dextrose (D50w Syringe) 0 gm IV X1 PRN; Protocol PRN Reason: Hypoglycemia Furosemide (Lasix) 20 mg PO DAILY [facility] Last Admin: 07/06/18 09:51 Dose: 20 mg Glucagon () 1 mg IM .X1 PRN PRN Reason: Hypoglycemia Heparin Sodium (Beef Lung) (Heparin 500 Unit/5 Ml (100/Ml)) 500 unit IV UD PRN PRN Reason: HEPARIN FLUSH Heparin Sodium (Porcine) (Heparin Na) 0 unit IV UD PRN; Protocol Sodium Chloride () 1,000 mls @ 0 mls/hr IV .Q0M [facility] Last Admin: 07/04/18 05:48 Dose: 15 mls/hr Sodium Chloride () 1,000 mls @ 15 mls/hr IV .Q48H [facility] Last Admin: 07/06/18 10:13 Dose: Not Given Sodium Chloride () 500 mls @ 15 mls/hr IV .[id number] [facility] Last Admin: 07/05/18 21:47 Dose: Not Given Heparin Sodium/Dextrose () 25,000 units in 250 mls @ 15 mls/hr IV .[id number] [facility]; Protocol Last Admin: 07/06/18 06:43 Dose: 15 mls/hr Amiodarone HCl 360 mg/ (Dextrose) 200 mls @ 16.67 mls/hr CONT INF .Q12H [facility] Last Admin: 07/06/18 10:13 Dose: Not Given Insulin Human Lispro (Humalog Kwikpen (Bkc)) 0 unit SQ ACHS [facility]; Protocol Last Admin: 07/06/18 11:21 Dose: 3 units Lorazepam (Ativan) 1 mg PO Q6H PRN PRN PRN Reason: BACK SPASMS/ANXIETY Magnesium Hydroxide (Milk Of Magnesia) 30 ml PO DAILY PRN PRN Reason: Constipation Metoclopramide HCl (Reglan) 5 mg IV Q6 PRN PRN Reason: NAUSEA/VOMITING Metoprolol Tartrate (Lopressor (Beta Yosef)) 100 mg PO BID [facility] Last Admin: 07/06/18 09:44 Dose: 100 mg Morphine Sulfate () 2 mg IV Q4H PRN PRN PRN Reason: Mild back pain (0-2/10) Pantoprazole Sodium (Protonix) 20 mg PO DAILY [facility] Last Admin: 07/06/18 09:44 Dose: 20 mg Sodium Chloride () 5 - 15 ml IV UD PRN PRN Reason: SALINE FLUSH Last Admin: 07/05/18 21:50 Dose: 10 ml Sodium Chloride () 500 ml IV BOLUS PRN PRN Reason: VASO-VAGAL PROTOCOL Ticagrelor (Brilinta) 90 mg PO BID [facility] Last Admin: 07/06/18 09:44 Dose: 90 mg Warfarin Sodium (Coumadin (Pbkc)) 8 mg PO X1 ONE Stop: 07/06/18 17:01 Medical Necessity - Tobacco Use Smoking Status: Never smoker Assessment/Plan All Active Problems Paroxysmal A-fib (Acute) Atrial fibrillation and flutter (Acute) Cardiomyopathy (Acute) CHF (congestive heart failure) (Acute) 1. Paroxysmal a-fib/HTN/HLD/Cardiomyopathy likely ischemic/CAD s/p RCA stent - metoprolol to 100 mg BID and will monitor - Continue to hold his HCTZ and AMBER as his creatinine is still elevated, now 1.91, will continue to monitor - CHADS2 is 3 and he will likely need anticoagulation prior to discharge - C/w asa and lipitor - s/p RCA stent, c/w brillinta and coumadin, INR still 1.2, 8 mg coumadin tonight - On amiodarone for rhythm control, has maintained sinus rhythm and is on PO taper - Echo with EF 50% and mild global hypokinesis 2. DM2 - will hold his metformin, may be able to continue if GFR >30 - SSI and accuchecks - BG 144 3. GERD - stable - C/w his home PPI 4. TSH elevation - He is currently in an acute setting with stress making the elevated level of his TSH unlikely to correlate with actual activity - He will need outpatient follow-up 5. Leukocytosis - unsure of etiology - improving - He is afebrile at the moment so concern for infection is low - may be stress response from cath, if he spike a temp, will obtain cultures DVT: coumadin Diet: Cardiac Code Visit Inpatient E&M: 81386 Subs Hosp L2
--- NOTE | 2018-07-06 12:43 | PCM.PN.CARD ---
Subjectve: The patient states he feels better. He denies any ongoing chest discomfort. He states his breathing has improved as well as his lower extremity edema. Objective: Vital Signs Temp Pulse Resp BP Pulse Ox 98.8 F 61 18 122/66 H 95 07/06/18 10:50 07/06/18 10:50 07/06/18 10:50 07/06/18 10:50 07/06/18 10:50 Oxygen Flow Rate (L/min) 2 Oxygen Delivery Method Room Air Weight: 238 lb 9.6 oz Body Mass Index (BMI) 39.6 Intake and Output for Last 24 Hours 07/04/18 07/05/18 07/06/18 23:59 23:59 23:59 Intake Total 1498.8 / 1498.8 1943 325.2 / 325.2 Output Total 350 / 350 Balance 1148.8 / 1148.8 1942 325.2 / 325.2 General: Awake, Alert, Oriented x 3, Cooperative, No Acute Distress, Obese HEENT: Atraumatic, Normocephalic, PERRL, EOMI, Sclera Non Icteric Oral: Moist Mucosa Neck: Supple, Good ROM, No JVD Lungs: Clear to auscultation Cardiovascular: Regular Rhythm, Normal S1, Normal S2 Abdomen: Bowel Sounds Present, Soft, Non Tender, Obese Extremities: Trace RLE Edema, Trace LLE Edema Neurological: No Focal Motor or Sensory Deficit Psych/Mental Status: Appropriate, Normal Affect 07/05/18 13:45: APTT 241.0 H* 07/05/18 20:22: APTT 97.7 H* 07/06/18 03:08: WBC 14.5 H, RBC 4.26 L, Hgb 12.7 L, Hct 38.5 L, MCV 90.4, MCH 29.8, MCHC 33.0, RDW 14.2, RDW Differential 46.1 H, Plt Count 165, MPV 10.2, Immature Gran % (Auto) 0.100, Neut % (Auto) 77.7 H, Lymph % (Auto) 12.9 L, [place] % (Auto) 7.9, Eos % (Auto) 1.1, Baso % (Auto) 0.3, Absolute Neuts (auto) 11.3 H, Total Counted Not Reportable 07/06/18 03:08: Sodium 138, Potassium 4.1, Chloride 99, Carbon Dioxide 29.0, Anion Gap 10, BUN 50 H, Creatinine 1.87 H, Est GFR (MDRD) Af Amer 45 L, Est GFR (MDRD) Non-Af 38 L, BUN/Creatinine Ratio 26.7 H, Glucose 144 H, Calcium 8.4 L 07/06/18 03:08: PT 15.5 H, INR 1.2, APTT 79.6 H 07/06/18 09:37: APTT 86.1 H Rhythm: Sinus rhythm EKG: Sinus rhythm/sinus bradycardia IA: No acute ECG changes Medical Necessity - Tobacco Use Smoking Status: Never smoker Assessment/Plan 1. Atrial fibrillation/flutter The patient has demonstrated evidence of paroxysmal atrial fibrillation/flutter. At the present time he is reverted back to sinus rhythm. He will continue rate control therapy, antiarrhythmic therapy, and anticoagulant therapy. Also over time he may need to be considered for future adjunct of therapy with atrial relation/flutter ablation. 2. Cardiomyopathy The patient does have what appears to be a mildly diminished LV systolic function. This may be secondary to multiple etiologies including his atrial dysrhythmia with a tachycardic induced cardiomyopathy superimposed upon his subsequent findings of underlying CAD with RCA disease which subsequently has required PCI. He will continue medical therapy. Ideally this will include his beta-monica therapy, AMBER inhibitor therapy or ARB depending upon his renal function, etc. hopefully as his cardiorenal status stabilizes and his creatinine improves he can resume additional therapy with an AMBER inhibitor or ARB in the future. 3. Congestive heart failure He will continue medical management as deemed appropriate. During this time his renal function will be followed. 4. CAD status post RCA PCI The patient subsequently was noted to have underlying CAD of the proximal RCA. He underwent RCA PCI. He will continue medical management as deemed appropriate. 5. Hyperlipidemia The patient has been on lipid-lowering therapy in the past. This can be continued. 6. Hypertension The patient states he has a long-standing history of hypertension. He believes it has been reasonably well controlled on medical management. 7. Hyperglycemia The patient states he was placed on hypoglycemic agents to try and bring his glucose levels under better control. 8. Renal insufficiency Based upon the patient's history he may have a history of chronic renal insufficiency. His creatinine did increase status post diuresis and IV contrast load. His creatinine appears to be decreasing at this time. Overall, from a cardiac standpoint, he does appear to be symptomatically improved. He will continue medications. His medications will need to be adjusted over time based upon his symptoms, cardiac rate and rhythm, volume status, renal function, etc. He will need future outpatient cardiovascular follow-up and consideration for outpatient cardiovascular rehabilitation therapy as well. as well as with the [facility] hospitalist team. The patient's case was discussed and reviewed with the patient and his multiple family members present. This note was generated using a voice recognition system and there may be incorrect words, spelling or punctuation that were not noted when reviewing the office note prior to saving.
--- NOTE | 2018-07-06 16:22 | NURSING ---
Student nurse charting reviewed and appropriate.
[2018-07-06 16:43] LABS: Partial Thromboplast Time 29.4 Seconds (24.1-36.2)
[2018-07-06 16:46] LABS: Bedside Glucose 117 mg/dL (70-110)
--- NOTE | 2018-07-06 17:04 | DCINST_ITS ---
- Discharge Diagnoses Current Active Problems: Current Active and Chronic Problems HTN (hypertension) (Chronic) HLD (hyperlipidemia) (Chronic) GERD (gastroesophageal reflux disease) (Chronic) Paroxysmal A-fib (Acute) Atrial fibrillation and flutter (Acute) Cardiomyopathy (Acute) CHF (congestive heart failure) (Acute) Hyperglycemia (Chronic) Renal insufficiency (Chronic) You will use the following diet at home:: Calorie/Carbohydrate Controlled (specify 1200, 1400, etc), Cardiac Your food should be the consistency of: Regular Your liquids should be the consistency of: Regular/Thin Discharge Activity: No Restrictions Call your doctor if you observe: Shortness of breath, Dizziness, Swelling in the ankles, Chest pain, Increased palpitations (irregular heartbeat) Allergies/Adverse Reactions: Allergies No Known Allergies Allergy (Verified 07/02/18 10:30) Medications to take at Discharge Aspirin [Aspirin, Baby] 81 mg PO DAILY@0800 07/02/18 Metformin HCl [Glucophage] 500 mg PO BID 07/02/18 Omeprazole [Prilosec] 20 mg PO DAILY 07/02/18 Amiodarone HCl [Cordarone] 200 mg PO 4X/DAY #26 tab 07/06/18 Amiodarone HCl [Cordarone] 200 mg PO BID #28 tab 07/06/18 Amiodarone HCl [Cordarone] 200 mg PO DAILY #30 tab 07/06/18 Amiodarone HCl [Cordarone] 200 mg PO TID #21 tab 07/06/18 Atorvastatin Calcium [Lipitor] 40 mg PO QHS #30 tab 07/06/18 Furosemide [Lasix] 20 mg PO DAILY #30 tab 07/06/18 Metoprolol Tartrate [Lopressor (beta monica)] 100 mg PO BID #60 tab 07/06/18 Ticagrelor [Brilinta] 90 mg PO BID #60 tab 07/06/18 Warfarin [Coumadin] 4 mg PO DAILY@1700 #30 tab 07/06/18 The following prescriptions were given: Amiodarone HCl [Cordarone] 200 mg PO DAILY #30 tab Atorvastatin Calcium [Lipitor] 40 mg PO QHS #30 tab Furosemide [Lasix] 20 mg PO DAILY #30 tab Warfarin [Coumadin] 4 mg PO DAILY@1700 #30 tab Amiodarone HCl [Cordarone] 200 mg PO BID #28 tab Metoprolol Tartrate [Lopressor (beta monica)] 100 mg PO BID #60 tab Ticagrelor [Brilinta] 90 mg PO BID #60 tab Amiodarone HCl [Cordarone] 200 mg PO TID #21 tab Amiodarone HCl [Cordarone] 200 mg PO 4X/DAY #26 tab Orders to be completed after discharge: Basic Metabolic Profile (BMP) Time Frame: 07/08/18, Location: Laboratory Prothrombin Time w/INR Time Frame: 07/08/18, Location: Laboratory Primary Care Physician: Eric Newton MD [Primary Care Provider] - Please follow up with your Primary Care Physician in: In 3-5 days Test Results: Test results from this visit will be discussed in further detail at your follow- up appointment, if applicable.
--- NOTE | 2018-07-06 19:28 | PCM.DC.SUM ---
Discharge Date and Diagnosis Date of Admission: 07/02/18 Date of Discharge: 07/06/18 - Secondary Discharge Diagnosis Chronic Problems HTN (hypertension) (Chronic) HLD (hyperlipidemia) (Chronic) GERD (gastroesophageal reflux disease) (Chronic) Hyperglycemia (Chronic) Renal insufficiency (Chronic) Hospital Course and Treatment Imaging Results: CXR: IMPRESSION: Suspicion of underlying COPD/emphysema without acute superimposed cardiopulmonary process. There is no evidence of asymmetric air trapping. There are no convincing features of acute pneumonia. Consultations 07/04/18 08:49 MD to MD Notification of Procedure Routine MD Notified:: Kulwant Godoy Procedures: 2-D Echocardiogram - Interpretation Summary Normal size and thickness. The estimated ejection fraction is 50 %. Unable to assess diastolic dysfunction due to arrhythmia. There is mild global hypokinesis of the left ventricle. Unable to estimate RV systolic pressure/pulmonary artery pressure due to technically difficult study. The study was technically difficult. There is no comparison study available. Contrast injection was performed., Cardiac catheterization - CONCLUSIONS Successful PTCA/CARLOS proximal RCA with a 4.0 x 12 Promus Synergy, post dilated with a 4.0 x 8 NC Balloon; 85%-->0%, no dissection. Summary of Care Provided: HPI: The patient is a 77 year old M with a pmh as above who presents with SOB. He went to his PCP's office today because the SOB has been present for several weeks, and he mentioned that he had been having intermittent palpitations. He had a memorable episode of palpitations several years ago which is when he was started on Metoprolol. An EKG was performed in the the office and he was seen to be in a-fib and was sent to the ER. In the ER he was found to be in a-fib with RVR and he was given a bolus of cardizem 20 mg which caused his rate to drop to the 70's which is where hs stayed. No CP, lightheadedness or dizziness. He does have an elevated creatinine, and he has no previous labs in our system. He was admitted because though his rate is normal, he remains in a-fib and will require further work-up. Hospital Course: 1. 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 An echo was obtained which demonstrated an EF of 50% with mild global hypokinesis which led to the cardiac catheterization that found the 85% occlusion in the right coronary artery therefore stent was deployed. After the procedure he was in the cardiac ICU and was felt to be more in flutter than in A. fib and was started on amiodarone to see if he would spontaneously convert otherwise he would have had to do a SHAINA and cardioversion. He ultimately did convert on an amiodarone drip and was discharged on a p.o. amiodarone taper. He was also discharged on aspirin, Brilinta, and Coumadin. He is to have an INR and a BMP drawn on Sunday. Because of his fluctuating renal function, initially he presented with a creatinine of 1.6-1, and increased to greater than 2 and is now back to 1.87, his AMBER inhibitor and hydrochlorothiazide were both held. He was discharged on metoprolol and a statin. On the day of discharge his INR was 1.2 and he was given 4 mg of Coumadin to take daily. 2. DM 2 -on admission because of his kidney function his metformin was held and he was started on a sliding scale insulin. His blood sugars were maintained less than 150. However, on discharge it his GFR was maintained between 30 and 40 and since he had been on metformin prior, he was discharged on metformin. He will need close outpatient follow-up with a BMP on Sunday. 3. TSH elevation -a TSH was obtained on admission which was elevated to 5.16. This was before he was initiated on amiodarone. At the time it was felt that his TSH was spuriously elevated due to the acute setting. Given that he is now also been started on amiodarone his TSH will need to be followed closely. 4. Leukocytosis -during his hospitalization he was found to have a leukocytosis that appeared suddenly on July 05. Initially he had been normal and then jumped to 16.6 and this was after the cardiac catheterization. I feel at this time that it is likely procedurally related given that on the day of discharge his white blood cell count was 14.5. 5. His other medical diagnoses were evaluated and his home medications were continued were appropriate - Physical Exam Vital Signs Temp Pulse Resp BP Pulse Ox 98.7 F 60 16 136/66 H 95 07/06/18 16:43 07/06/18 16:43 07/06/18 16:43 07/06/18 16:43 07/06/18 16:43 Oxygen Flow Rate (L/min) 2 Oxygen Delivery Method Room Air Weight: 238 lb 9.6 oz Body Mass Index (BMI) 39.6 Intake and Output for Last 24 Hours 07/04/18 07/05/18 07/06/18 23:59 23:59 23:59 Intake Total 1498.8 / 1498.8 1943 325.2 / 325.2 Output Total 350 / 350 Balance 1148.8 / 1148.8 1942 325.2 / 325.2 Laboratory Tests Past 24 Hrs 07/05/18 07/06/18 07/06/18 20:22 03:08 03:08 WBC 14.5 H RBC 4.26 L Hgb 12.7 L Hct 38.5 L MCV 90.4 MCH 29.8 MCHC 33.0 RDW 14.2 RDW Differential 46.1 H Plt Count 165 MPV 10.2 Immature Gran % (Auto) 0.100 Neut % (Auto) 77.7 H Lymph % (Auto) 12.9 L [place] % (Auto) 7.9 Eos % (Auto) 1.1 Baso % (Auto) 0.3 Absolute Neuts (auto) 11.3 H Absolute Lymphs (auto) 1.87 Total Counted Not Reportable PT INR APTT 97.7 H* Sodium 138 Potassium 4.1 Chloride 99 Carbon Dioxide 29.0 Anion Gap 10 BUN 50 H Creatinine 1.87 H Estim Creat Clear Calc 29.69 Est GFR (MDRD) Af Amer 45 L Est GFR (MDRD) Non-Af 38 L BUN/Creatinine Ratio 26.7 H Glucose 144 H Calcium 8.4 L 07/06/18 07/06/18 07/06/18 03:08 09:37 16:15 WBC RBC Hgb Hct MCV MCH MCHC RDW RDW Differential Plt Count MPV Immature Gran % (Auto) Neut % (Auto) Lymph % (Auto) [place] % (Auto) Eos % (Auto) Baso % (Auto) Absolute Neuts (auto) Absolute Lymphs (auto) Total Counted PT 15.5 H INR 1.2 APTT 79.6 H 86.1 H 29.4 Sodium Potassium Chloride Carbon Dioxide Anion Gap BUN Creatinine Estim Creat Clear Calc Est GFR (MDRD) Af Amer Est GFR (MDRD) Non-Af BUN/Creatinine Ratio Glucose Calcium POC Glucose 07/06/18 07/06/18 07/06/18 16:38 11:19 06:37 POC Glucose 117 H 256 H 135 H 07/06/18 07/05/18 02:39 21:45 POC Glucose 152 H 119 H Discharge Activity: No Restrictions Call your doctor if you observe: Shortness of breath, Dizziness, Swelling in the ankles, Chest pain, Increased palpitations (irregular heartbeat) Home Medications: Medications to take at Discharge Aspirin [Aspirin, Baby] 81 mg PO DAILY@0800 07/02/18 Metformin HCl [Glucophage] 500 mg PO BID 07/02/18 Omeprazole [Prilosec] 20 mg PO DAILY 07/02/18 Amiodarone HCl [Cordarone] 200 mg PO 4X/DAY #26 tab 07/06/18 Amiodarone HCl [Cordarone] 200 mg PO BID #28 tab 07/06/18 Amiodarone HCl [Cordarone] 200 mg PO DAILY #30 tab 07/06/18 Amiodarone HCl [Cordarone] 200 mg PO TID #21 tab 07/06/18 Atorvastatin Calcium [Lipitor] 40 mg PO QHS #30 tab 07/06/18 Furosemide [Lasix] 20 mg PO DAILY #30 tab 07/06/18 Metoprolol Tartrate [Lopressor (beta monica)] 100 mg PO BID #60 tab 07/06/18 Ticagrelor [Brilinta] 90 mg PO BID #60 tab 07/06/18 Warfarin [Coumadin] 4 mg PO DAILY@1700 #30 tab 07/06/18 Following Prescrptions Were Given to Patient: Amiodarone HCl [Cordarone] 200 mg PO DAILY #30 tab Atorvastatin Calcium [Lipitor] 40 mg PO QHS #30 tab Furosemide [Lasix] 20 mg PO DAILY #30 tab Warfarin [Coumadin] 4 mg PO DAILY@1700 #30 tab Amiodarone HCl [Cordarone] 200 mg PO BID #28 tab Metoprolol Tartrate [Lopressor (beta monica)] 100 mg PO BID #60 tab Ticagrelor [Brilinta] 90 mg PO BID #60 tab Amiodarone HCl [Cordarone] 200 mg PO TID #21 tab Amiodarone HCl [Cordarone] 200 mg PO 4X/DAY #26 tab Other Amb Orders: Basic Metabolic Profile (BMP) Time Frame: 07/08/18, Location: Laboratory Prothrombin Time w/INR Time Frame: 07/08/18, Location: Laboratory Primary Care Physician: Eric Newton MD [Primary Care Provider] - Please follow up with your Primary Care Physician in: In 3-5 days Disposition: Home Minutes spent on discharge:: 35 Patient Condition:: Good Medical Necessity - Tobacco Use Smoking Status: Never smoker Meaningful Use Info Meaningful Use Diagnoses (Choose all that apply): CHF - CHF AMBER/ARB ordered at discharge?: No Reason AMBER/ARB not ordered?: Worsening renal function Documented LVEF (%): 50 Code Visit Inpatient E&M: 62715 Disch Hosp
--- OUTSIDE RECORDS SUMMARY | 2018-08-14 02:52 | XMS RPT_ITS ---
:1940 Author Organization OHIP Support Name Relationship Address Phone R Unavailable Unavailable Unavailable SAMARA, CARLYLE Unavailable [address] + [place] [address] R Unavailable Unavailable Unavailable SAMARA, CARLYLE Unavailable [address] + [place] [address] R Unavailable Unavailable Unavailable SAMARA, CARLYLE Unavailable [address] + [place] [address] STEIN, RAY Unavailable Unavailable + [place] [address] R Unavailable Unavailable Unavailable STEIN, RAY Unavailable . + [place] [address] R Unavailable Unavailable Unavailable STEIN, RAY Unavailable Unavailable + [place] [address] R Unavailable Unavailable Unavailable STEIN, RAY Unavailable Unavailable + [place] [address] R Unavailable Unavailable Unavailable STEIN, RAY Unavailable Unavailable + [place] [address] R Unavailable Unavailable Unavailable STEIN, RAY Unavailable Unavailable + [place] [address] R Unavailable Unavailable Unavailable STENI, RAY Unavailable Unavailable + [place] [address] R Unavailable Unavailable Unavailable STEIN, RAY Unavailable Unavailable + [place] [address] R Unavailable Unavailable Unavailable STEIN, RAY Unavailable Unavailable + [place] [address] R Unavailable Unavailable Unavailable STEIN, RAY Unavailable Unavailable + [place] [address] R Unavailable Unavailable Unavailable Care Team Providers Name Role Phone ANAM STRICKLAND (AUSTEN) Attending Unavailable SAUMYA FARIAS Referring Unavailable SAUMYA FARIAS Attending Unavailable SAUMYA FARIAS Referring Unavailable ANAM STRICKLAND (AUSTEN) Attending Unavailable SAUMYA FARIAS Referring Unavailable ELDERBROCK, SAUMYA Pelayo Attending Unavailable ELDERBROCK, SAUMYA Pelayo Referring Unavailable EM, ANAM (GIG TENDER) Attending Unavailable EM, ANAM (GIG TENDER) Attending Unavailable EM, ANAM (GIG TENDER) Referring Unavailable ELDERBROCK, SAUMYA Pelayo Attending Unavailable ELDERBROCK, SAUMYA Pelayo Referring Unavailable ELDERBROCK, SAUMYA Pelayo Referring Unavailable Moodispaw, Kulwant Attending Unavailable Elderbrock, Saumya Primary Care Unavailable Elderbrock, Saumya Attending Unavailable Elderbrock, Saumya Referring Unavailable Elderbrock, Saumya Primary Care Unavailable Elderbrock, Avalon Primary Care Unavailable Kotsonis, Jhon F Admitting Unavailable Kotsonis, Jhon F Attending Unavailable Moodispaw, Kulwant Consulting Unavailable Kotsonis, Jhon F Admitting Unavailable Kotsonis, Jhon F Attending Unavailable Elderbrock, Avalon Primary Care Unavailable K[place]onis, Jhon F Consulting Unavailable Kotsonis, Jhon F Admitting Unavailable Kotsonis, Jhon F Attending Unavailable Elderbrock, Avalon Primary Care Unavailable Kotsonis, Jhon F Consulting Unavailable Kotsonis, Jhon F Admitting Unavailable Moodispaw, Kulwant Attending Unavailable Elderbrock, Avalon Primary Care Unavailable Moodispaw, Kulwant Consulting Unavailable Kotsonis, Jhon F Consulting Unavailable Kotsonis, Jhon F Admitting Unavailable Kotsonis, Jhon F Attending Unavailable Elderbrock, Avalon Primary Care Unavailable Moodispaw, Kulwant Consulting Unavailable Kotsonis, Jhon F Consulting Unavailable Kotsonis, Jhon F Admitting Unavailable Moodispaw, Kulwant Attending Unavailable Elderbrock, Avalon Primary Care Unavailable Moodispaw, Kulwant Consulting Unavailable Kotsonis, Jhon F Consulting Unavailable Kotsonis, Jhon F Admitting Unavailable Kotsonis, Jhon F Attending Unavailable Elderbrock, Avalon Primary Care Unavailable Moodispaw, Kulwant Consulting Unavailable Kotsonis, Jhon F Consulting Unavailable Kotsonis, Jhon F Admitting Unavailable Moodispaw, Kulwant Attending Unavailable Elderbrock, Saumya Primary Care Unavailable Moodispaw, Kulwant Consulting Unavailable Kotsonis, Jhon F Consulting Unavailable Kotsonis, Jhon F Admitting Unavailable Kotsonis, Jhon F Attending Unavailable Elderbrock, Saumya Primary Care Unavailable Kulwant Ceja Consulting Unavailable Jhon Zamorano Consulting Unavailable Jhon Zamorano Admitting Unavailable Kulwant Ceja Attending Unavailable Aman, Saumya Primary Care Unavailable Kulwant Ceja Consulting Unavailable Jhon Zamorano Consulting Unavailable Dipti Zamoranos Adolph Attending Unavailable Jhon Zamorano Referring Unavailable Jesutonio, Saumya Primary Care Unavailable Walt, Kulwant Consulting Unavailable PROBLEMS PROBLEMS DATE TYPE CONDITION / CODE ATTENDING STATUS SOURCE 07/22/2018 Unknown I48.91 - Elder[place], Active [place] Unspecified atrial [facility] fibrillation / Hospital I48.91(ICD-10) Repository 07/22/2018 Active Unspecified atrial NA Active [facility] fibrillation / [facility] [place] I48.91(ICD-10) Repository 07/18/2018 Unknown E11.9 - Type 2 K[place]onis, Active [place] diabetes mellitus [facility] complications / Repository E11.9(ICD-10) 07/03/2018 Active Other forms of NA Active [facility] dyspnea / [facility] [place] R06.09(ICD-10) Repository 07/02/2018 Active Unknown / EMJAYNEANAM Active [facility] UNK(Unknown) (GIG TENDER) [place] Repository 01/24/2017 Active Type 2 diabetes NA Active [facility] mellitus without [facility] [place] complications / Repository E11.9(ICD-10) 07/14/2015 Active Hyperlipidemia, NA Active [facility] unspecified / [place] E78.5(ICD-10) Repository 08/07/2017 Active Other fci NA Active [facility] (current) drug [facility] [place] therapy / Repository Z79.899(ICD-10) PROCEDURES PROCEDURES No Procedure Records FoundRESULTS RESULTS PROTIME Collected: 07/22/2018 Status: F Source: [place] 7:48 AM [facility] REPOSITORY TYPE CODE TESTS RESULT OUT OF REFERENCE UNITS RANGE LAB PSEC 9.7-13.0 sec Test PT sent to [facility]. Result Comment: Account Credited HIDE LAB INR 0.9-1.3 Test sent to PT INR [facility]. Result Comment: Account Credited HIDE COMP METABOLIC PANEL Collected: 07/22/2018 Status: F Source: [place] 7:48 AM [facility] REPOSITORY TYPE CODE TESTS RESULT OUT OF REFERENCE UNITS RANGE LAB TP 6.3-8.0 g/dL Protein, Total 6.8 LAB ALB 3.9-4.9 g/dL Low Albumin 3.8 LAB CA 8.5-10.2 mg/dL Calcium, Total 8.8 LAB TBIL 0.2-1.3 mg/dL Bilirubin, Total 0.6 LAB ALKP 38-113 U/L Alkaline Phosphatase 62 LAB AST 14-40 U/L AST 25 LAB GLU 74-99 mg/dL Glucose High 114 Result Comment: The [place] Diabetes Association (ADA) provides guidance for cutoff values for fasting glucose and random glucose. The ADA defines fasting as no caloric intake for at least 8 hours. Fas ting plasma glucose results between 100 to 125 mg/dL indicate increased risk for diabetes (prediabetes). Fasting plasma glucose results greater than or equal to 126 mg/dL meet the criteria for diagnosis of diabetes. In the absence of unequivocal hyperglycemia, results should be confirmed by repeat testing. In a patient with classic symptoms of hyperglycemia or hyperglycemic crisis, random plasma glucose results greater than or equal to 200 mg/dL meet the criteria for diagnosis of diabetes. Reference: Standards of Medical Care in Diabetes 2016, [place] Diabetes Association. Diabetes Care. 2016.39(Suppl 1). LAB BUN 9-24 mg/dL BUN High 29 LAB CRET 0.73-1.22 mg/dL Creatinine High 1.81 LAB NA 136-144 mmol/L Sodium 137 LAB K 3.7-5.1 mmol/L Potassium 4.5 LAB CL 97-105 mmol/L Chloride 99 LAB CO2 22-30 mmol/L CO2 26 LAB AGAP 9-18 mmol/L Anion Gap 12 LAB ALT 10-54 U/L ALT 24 LAB GFRAA eGFR- Amer. 44 LAB GFRNAA . eGFR-All Other Races 37 Result Comment: eGFR (Estimated GFR) Units of measure: mL/min/1.73 meters squared eGFR is derived from the reexpressed MDRD Study equation using the following parameters: serum creatinine, age, gender and race. The creatinine assay has been calibrated to be traceable to IDMS. An eGFR <60 mL/min/1.73m2 for >3 months is consistent with chronic kidney disease. Refer to KDOQI guidelines for clinical interpretation. In patients with unstable renal function, e.g. those with acute kidney injury, the eGFR may not accurately reflect actual GFR. Performed By: #### CMP, HBA1C #### [facility] [address], [place] [address] HEMOGLOBIN A1C Collected: 07/22/2018 Status: F Source: [place] 7:48 AM [facility] REPOSITORY TYPE CODE TESTS RESULT OUT OF REFERENCE UNITS RANGE LAB HGBA1C 4.3-5.6 % High Hemoglobin A1c 6.7 Result Comment: [place] Diabetes Association guidelines indicate that patients with HgbA1c in the range 5.7-6.4% are at increased risk for development of diabetes, and intervention by lifestyle modification may be beneficial. HgbA1c greater or equal to 6.5% is considered diagnostic of diabetes. LAB HBA0 mg/dL Est. Average Glucose 146 Result Comment: eAG: (Estimated average glucose) is a calculated value from HgbA1c and is sales representative jewelry of the average blood glucose level in the last 2-3 month period. Performed By: #### CMP, HBA1C #### [facility] [address] [place], [place] [address] PROTHROMBIN TIME W/INR Collected: 07/22/2018 Status: F Source: [place] 7:48 AM [facility] REPOSITORY TYPE CODE TESTS RESULT OUT OF RANGE REFERENCE UNITS LAB L300.4150 11.7-14.9 SECONDS High PROTIME 27.9 LAB L300.4200 Normal INR 2.6 Performed By: #### L300.3900 #### [facility] [address] [place], [address] CR - HISTORY AND Observed: 07/18/2018 Status: F Source: [place] PHYSICAL 1:13 PM [facility] REPOSITORY [facility] [address] [place] [address] CR - History AND Physical MR#: [id number] Acct: [id number] Name: NORRIS STEIN Kristal Rep #: [id number] : 1940 77 From: Cindy Graff RN PCP: Saumya Farias MD DOS: 07/18/18 CR - History AND Physical - General Arrival date:: 07/18/18 Arrival time:: 10:00 Date of Referral:: 07/08/18 Date of CR Evaluation:: 07/18/18 Referring Physician: Dr. Ceja Primary Diagnosis: Presence of coronary angioplasty implant and graft - History of Present Cardiac Event Onset Date: Enter Onset Date of cardiac illnesses in Comment field below Current stable Angina Pectoris:: No Acute Myocardial Infarction within 12 months:: No Coronary Artery Bypass Graft:: No Heart valve replacement or repair:: No PTCA or coronary stenting:: Yes Heart or Heart-Lung Transplant:: No Heart Failure EF <35%:: No Interventions with present event:: PCI with stent Were there any complications?: none - Medications Home Medications: Ambulatory Orders Medication Instructions Recorded Aspirin [Aspirin, Baby] 81 mg PO DAILY@0800 07/02/18 - Allergies Allergies/Adverse Reactions: Allergies No Known Allergies Allergy (Verified 07/02/18 10:30) - Sleep Disorder Evaluation Hx of Sleep Apnea: No Do you snore loudly (louder than talking or can be heard through closed doors)?: No Do you often feel tired/ fatigued/ sleepy during daytime?: Yes Has anyone observed you stop breathing during sleep?: Yes History of Hypertension (for STOP score): Yes - referral requested STOP Results: Positive Advanced Directives - Advanced Directives Power of Surfacer: No Living Will: No Advance Directives Information Provided: Yes Advance Directives on File: No DNR Order?:: No Past Medical History - Past Medical Illness Medical History: Past Medical History (Last Updated 07/18/18 @ 10:50 by Cindy Graff RN) Atherosclerotic heart disease of [place] coronary artery without angina pectoris (Chronic) I25.10 Encounter for routine circumcision Z41.2 - Past Surgical History Surgical History: Past Surgical History (Last Updated 07/18/18 @ 10:50 by Cindy Graff RN) History of hernia repair Z98.890, Z87.19 History of hip replacement Z96.649 History of partial knee replacement Z96.659 Surgical History: total hip arthroplasty, total knee arthroplasty Social History - Smoking History Smoking Status: Never smoker Hx Smoking Exposure: No - Alcohol Use Alcohol Usage: No - Substance Abuse Hx Substance Use: No - Occupation Occupation (List type of work in comments):: Retired - Hobbies, Recreation, Social Activities Hobbies: Reading, Other - puzzels Recreational Activities: I am able to engage in most, but not all activities Social Environment - Status Marital Status: - Current Living Arrangements Living Environment:: Family, Spouse - Children How many children do you have?: 7 Do any of your children live nearby?: Yes - Safety Do you feel safe in your surroundings?: Yes Review of Systems - Review of Systems Hints: Right click = Denies (Slash). Left click = Reports ([place]) Review of Present Symptoms: Reports: Shortness of Breath with Exertion, Dizziness/Lightheadedness, Fatigue, Heart Arrhythmia/Irregularities, Appetite - Normal. Denies: Shortness of Breath at Rest, PVD, Operative Discomfort, Angina, Wound Healing, Appetite - Special Diet, Sleep - Normal - Pain Is Patient Pain Free?: Yes Pain Location: none Pain Level: 0/10 Risk Factor Assessment - Vital Signs Temperature: 98.6 F Respiratory Rate: 24 Pulse Ox: 94 Blood Pressure: 128/72 Nailbeds:: pink - Pulse Pulse Rate: 50 Pulse Rhythm: Regular - Hypertension Blood Pressure Sitting - Right Arm: 128/72 - Stress Stress: Recent - Diabetes Diabetic History: Medication Dependent Nutrition Referral for Diabetes: No - Obesity Height: 5 ft 5 in Weight:: 239 lb Weight in Pounds: 239.0 lbs Weight Source: Stated by Patient Body Mass Index (BMI): 39.7 Nutritional Referral for Obesity: No - Physical Inactivity Physical Inactivity: None - Risk Stratification Risk Guidelines: Lowest Risk: Risk Factor for Smoking, Risk Factor for Hypertension, Moderate Risk: Risk Factor for Diabetes, Risk Factor for Sedentary Lifestyle, Risk Factor for Depression, Highest Risk: Risk Factor for Obesity - BMI 39.7 - For Smoking Smoking Risk Guidelines: Smoking Low Risk: None or quit greater than 6 months ago. Smoking Moderate Risk: Smoker or quit 6 months or less ago. Smoking High Risk: Smoker - For Dyslipidemia Dyslipidemia Risk Guidelines: Low Risk: Moderate Risk: High Risk: 15-25% fat 25.1-29% fat >/= 30% fat. <7% sat fat 7-9% sat fat >9% sat fat. <150 mg chol 150-299 mg chol >/= 300 mg chol. LDL <100 LDL 100-129 LDL >/= 130. Chol/HDL ratio <5.0 Chol/HDL ratio 5.0-6.0 Chol/HDL ratio >6.0. Triglycerides <100 Triglycerides 100-149 Triglycerides >/= 150 - For Diabetes Mellitus Diabetes Risk Guidelines: Diabetes Low Risk: HgA1c <6.5% and/or FBG <120. Diabetes Moderate Risk: HgA1c 6.6-7.9% and/or FBG 120- 180. Diabetes High Risk: HgA1c >/= 8% and/or FBG >180 - For Obesity/Overweight Obesity/Overweight Risk Guidelines: Obesity Low Risk: BMI <25.0. Obesity Moderate Risk: BMI 25-29.9. Obesity High Risk: BMI >/= 30.0 - For Hypertension Hypertension Risk Guidelines: Hypertension Low Risk: Systolic <120 and Diastolic <80. Hypertension Moderate Risk: Systolic 120-139 and Diastolic 80-89. Hypertension High Risk: Systolic >/= 140 and Diastolic >/= 90 - For Sedentary Lifestyle Sedentary Lifestyle Risk Guidelines: Sedentary Lifestyle Low Risk: >/= 1,500 kcal/week. Sedentary Lifestyle Moderate Risk: 700-1,499 kcal/week. Sedentary Lifestyle High Risk: < 700 kcal/week - For Depression Depression Risk Guidelines: Depression Low Risk: Not clinically depressed. Depression Moderate Risk: Mildly depressed. Depression High Risk: Clinically depressed Motivation - Motivation to Participate On a scale of 1 to 10, how prepared are you to commit to attending program?: 10 What do you see as barriers to successfully being able to complete the program?: not being able to do the physical exercise What do you see as the benefits of succesfully completing the program? In other words, what do you hope to get out of participating in the program?: less sob, strengthening Are there issues you are dealing with that will interfere with completing the program?: none Do you have a spouse or signficant other, family or friends who will help support you to complete the program?: yes 07/18/18 1116 <Electronically signed by Cindy Graff RN> Date Cindy Graff RN Outcome assessment reviewed. Exercise plan approved as documented. Treatment plan and goals support patient needs/abilities. Continue with current plan. I certify the patient demonstrates improvement and remains willing and capable of participation. the patient continues to benefit from cardiac rehab services/training. The patient may continue at current intensity, endurance and modality and progress per protocol. 07/18/18 1313 <Electronically signed by Kulwant Ceja MD> Cosigner Signature: Date Kulwant Ceja MD CC: Signed COMPREHENSIVE METABOLIC Collected: 07/18/2018 Status: F Source: [place] 9:12 AM [facility] REPOSITORY Order Comment: DR. FARIAS WANTS THE A1C CMP LIPID WANTS THE CMP PT TYPE CODE TESTS RESULT OUT OF RANGE REFERENCE UNITS LAB L501.0100 74-106 mg/dL High GLU 124 Result Comment: Fasting Glucose result from 100 to 125 mg/dL suggests IMPAIRED HOMEOSTASIS per A.D.A. criteria. Please note revised GLUCOSE reference range effective 2017. LAB L501.1000 7-18 mg/dL High BUN 39 LAB L501.1100 0.70-1.30 mg/dL High CREAT,SERUM 1.87 Result Comment: The validity of the calculated GFR AND GFRAA in patients over 70 years has not been determined. Clinical correlation is essential. LAB L501.1110 >60 mL/min Low EST GFR 38 Result Comment: Non- GFR Calc LAB L501.1115 >60 mL/min Low EST GFR - AA 45 Result Comment: GFR Calc LAB L501.1300 10-20 RATIO High BUN/CRE 20.9 LAB L501.1500 6.4-8.2 g/dL T Normal PROT 6.9 LAB L501.1800 3.2-5.0 g/dL Normal ALB 3.3 LAB L501.1950 2.2-4.2 g/dL Normal GLOB 3.6 LAB L501.2000 0.9-2.4 RATIO Normal A/G 0.9 LAB L501.2200 8.5-10.1 mg/dL CA Normal 8.7 LAB L501.4100 15-37 U/L Normal AST 21 LAB L501.4305 45-117 U/L Normal ALK P 71 LAB L501.4405 16-61 U/L Normal ALT 39 LAB L501.4600 0.20-1.00 mg/dL T Normal BILI 0.50 LAB L501.5300 136-145 mmol/L NA Normal 140 LAB L501.5600 3.5-5.1 mmol/L K Normal 4.3 LAB L501.5900 98-107 mmol/L CL Normal 105 LAB L501.6100 21.0-32.0 mmol/L Normal CO2 28.0 LAB L501.6200 5-15 Normal GAP 7 Performed By: #### L500.4050, L500.4100 #### [facility] [address] [place], [place], [id number] LIPID PROFILE Collected: 07/18/2018 Status: F Source: [place] 9:12 AM [facility] REPOSITORY Order Comment: DR. FARIAS WANTS THE A1C CMP LIPID WANTS THE CMP PT TYPE CODE TESTS RESULT OUT OF RANGE REFERENCE UNITS LAB L501.4900 200 mg/dL Normal CHOL 110 Result Comment: <200 mg/dL Desirable 200-240 mg/dL Borderline >240 mg/dL High Risk LAB L501.5000 mg/dL Normal TRIG 171 Result Comment: The drugs N-Acetylcysteine and Metamizole may falsely depress this assay. Serum Triglycerides Reference Interval Normal <150 mg/dL Borderline high 150 - 199 mg/dL High 200 - 499 mg/dL Very High > or = 500 mg/dL LAB L501.6400 mg/dL Low HDL 32 Result Comment: The drugs N-Acetylcysteine and Metamizole may falsely depress this assay. Reference Range HDL <40 mg/dL Low HDL Cholesterol HDL >or= 60 mg/dL High HDL Cholesterol LAB L501.6500 0-130 mg/dL Normal LDL 44 LAB L501.6600 5-40 mg/dL Normal VLDL 34 Performed By: #### L500.4050, L500.4100 #### [facility] [address] [place], [place], [id number] HEMOGLOBIN A1C Collected: 07/18/2018 Status: F Source: [place] 9:12 AM [facility] REPOSITORY Order Comment: DR. FARIAS WANTS THE A1C CMP LIPID WANTS THE CMP PT TYPE CODE TESTS RESULT OUT OF RANGE REFERENCE UNITS LAB L501.9985 4.2-6.3 % High HGB A1C 7.1 Performed By: #### L501.9985 #### [facility] [address] [place], [address] PROTHROMBIN TIME W/INR Collected: 07/18/2018 Status: F Source: [place] 9:12 AM [facility] REPOSITORY Order Comment: DR. FARIAS WANTS THE A1C CMP LIPID WANTS THE CMP PT TYPE CODE TESTS RESULT OUT OF REFERENCE UNITS RANGE LAB L300.4150 11.7-14.9 SECONDS High PROTIME 53.2 LAB L300.4200 High alert INR 5.9 Result Comment: CRITICAL VALUE VERIFIED. CALLED TO SORIN SKINNER 07/18/18 1101 Bernardo Szymanski. RESULTS READ BACK BY SAME. Performed By: #### L300.3900 #### [facility] [address] [place], [address] CNOV Observed: 07/16/2018 Status: COMPLETED Source: [place] 10:00 AM [facility] REPOSITORY Office Visit (FAMPWS) NORRIS STEIN ([id number]) 1940 M Date Time Provider Department 07/16/18 10:00 AM SAUMYA FARIAS FAMDAVID During your visit today, we recorded the following information about you: Pulse Respiration Blood pressure Weight 60/minute 20/minute 130/82 105.2 kg Saumya Farias MD 07/16/2018 11:47 AM Signed Transitional Care Management Progress Note The patients TCM visit was performed within the 14 days of discharge. Patient's Date of discharge: 07/06/18 Date of initial coordinator contact after discharge: 07/08/18 Discharge diagnosis: HTN (chronic), HLD (chronic), GERD (chronic) and Afib (Acute) Medication review completed Yes TRANSITION CARE MANAGEMENT (TCM) INITIAL CONTACT [place] Superintendent Outreach ? Provider Action/FYI: ? - Returned call to pt to setup an appt for TCM within 7-14 days of discharge. ? - Pt reports feeling pretty well today. Notified MA that he completed blood work at [facility] (including INR) and we should be getting these results. Asks if other labs need completed. After review pt should only need A1c which can be done in the office or same day at the lab. ? - Pt states he will be follow up with [facility]per at [facility] ([facility]), Dr. Ceja. Labs were placed today to complete at [facility] from Cardiology. ? - Pt has regularly scheduled OV on 07/31/18 and wonders if this appt will need kept. His and himself have appt's that day. Updated pt that we will discuss at upcoming appt to keep it scheduled as is. ? - INR today on lab work was 1.2 from results at [facility]. ? ? Initial contact with patient post discharge, spoke to :Spoke with patient on July 08, 2018 Provider Documentation: In follow-up of hospitalization, Norris Stein is a 77 year old male, following up from his recent hospital stay. With him today is his , Devorah and oldest son, Berhane Stein. Son, Berhane feels that he is working harder to function then right after being discharged from the hospital. Pt does note that he wasn't feeling well after being discharged, had diarrhea and didn't want to eat much. Pt has multiple concerns and questions today. Wonders if banana's, peaches/pears (with sugar added) is ok to have. What kind of greens he can eat with recently being diagnosed with a-fib and taking Warfarin. Is honey or maple syrup ok, uses honey in hot cup of water for his cough. Would like to know if having 1 cup of coffee (with caffeine) is ok. Patient is having some weakness today. States that his urine is colored reddish/ brown since being d/c from the hospital. Denies any pain presently or having kidney symptoms. Is patient able to start bathing, currently getting sponge baths. Also having anxiety attacks during difficult times of breathing and would like to know if he should be prescribed something. Wants a Rx for Albuterol solution to use as needed with nebulizer and an Rx for Oxygen. They use oxygen tank from the [employer] currently. Cough - Wants a refill on cough syrup medication due to coughing a lot at night. Notes he does wheeze and would like to get solution for his nebulizer at home that his grandchildren use. Did receive some breathing treatment while in the hospital. Pt would like to know is the cough related to his heart. Notes that he sleeps in a recliner at times with his feet down, until later in the night he was able to elevate his legs with no coughing. Cost of Brilinta is very expensive. Received one month from the hospital with a coupon, but now paying out of pocket which is over $400. Also taking Warfarin daily and being monitored by Dr. Ceja, INR on 07/12/18 was 3.5. The hospital would like to have patient checked for sleep apnea. He would like to hold off currently until starting to feel better. Following up with Dr. Ceja in August for an appointment. On current regimen of Amiodarone 200 mg TID for one week, then Past medical history, appointments, medications, allergies reviewed. Previous Medical History PAST MEDICAL HISTORY Diagnosis Date - DM (diabetes mellitus) (HCC) - Essential hypertension, benign - Other and unspecified hyperlipidemia - Other specified family circumstances Previous Surgical History PAST SURGICAL HISTORY Procedure Laterality Date - COLONOSCOP W/ OR W/O [facility] SPEC 04/08/15 Colonoscopy Family History No family history on file. Patient Allergies ALLERGIES No Known Allergies Current Medications Current Outpatient Prescriptions on File Prior to Visit: amiodarone (PACERONE) 200 mg tablet Take 1 tablet by mouth once daily. ASPIRIN 81 MG ORAL TAB Take one(1) tablet daily. atorvastatin (LIPITOR) 40 mg tablet Take 1 tablet by mouth daily at bedtime. codeine-guaiFENesin (ROBITUSSIN AC) 10-100 mg/5 mL syrup Take 5 mL by mouth three times daily as needed for Cough for up to 30 days. furosemide (LASIX) 20 mg tablet Take 1 tablet by mouth once daily. hydroCHLOROthiazide (HYDRODIURIL, ESIDRIX) 25 mg tablet Take 1 tablet by mouth once daily. metFORMIN (GLUCOPHAGE) 500 mg tablet Take 1 tablet by mouth twice daily with meals. . metoprolol tartrate, short acting, (LOPRESSOR) 25 mg tablet Take 1 tablet by mouth twice daily. omeprazole (PRILOSEC) 20 mg capsule Take 1 capsule by mouth once daily. ticagrelor (BRILINTA) 90 mg tablet Take 1 tablet by mouth twice daily. No current facility-administered medications on file prior to visit. Social History Social History Marital status: Spouse name: Years of education: Number of children: Social History Main Topics Smoking status: Never Smoker Smokeless tobacco: Never Used Alcohol use: Yes Comment: occasional sip of wine Drug use: No EXAM: BP 130/82 (BP Site: Left Arm, BP Position: Sitting, BP Cuff Size: Regular Adult) Pulse 60 Resp 20 Wt 105.2 kg (232 lb) SpO2 96% BMI 38.02 kg/m? General Appearance: Well appearing, alert, in no acute distress, well-hydrated, well nourished. and Obese. Lungs: lungs clear to auscultation. + wheezing, rhonchi, rales. Heart: RRR without murmur, gallop, or rubs. No ectopy. Abdomen: Normal abdominal exam, Abdomen soft, non-tender. Bowel sounds normal. No masses, organomegaly. Extremities: Edema: Bilaterally noted on exam, minimal. Health Maintenance List BP CONTROLLED (<130/80) due on 1960 DTAP,TDAP,TD(2 - Td) due on 06/25/2017 URINE ALBUMIN:CREATININE RATIO due on 08/07/2018 DIABETIC FOOT EXAM due on 08/07/2018 STATIN MED ADHERENCE due on 08/06/2018 DIABETES MED ADHERENCE due on 08/06/2018 HBA1C due on 08/08/2018 DILATED RETINAL EXAM due on 08/29/2018 LDL CHOLESTEROL due on 02/05/2019 ANNUAL PCP TEAM CHRONIC DISEASE VISIT due on 07/02/2019 COLORECTAL CANCER SCREENING,SEE MODIFIER due on 04/08/2025 ADULT PREVNAR-13 Completed INFLUENZA Completed PNEUMOVAX AGE 65 AND OVER WITH 5YR LOOKBACK Completed Data reviewed [facility] External Records ASSESSMENT/PLAN: 1. Hospital discharge follow-up - ICD9: V67.59, ICD10: Z09 (primary diagnosis) - 2 wk f/u 2. Essential hypertension, benign - ICD9: 401.1, ICD10: I10 - good control - Continue current medication(s) - Goal of BP <140/90 3. Wheezing - ICD9: 786.07, ICD10: R06.2 Clinically has mor wheezing than CHF symptoms - Albuterol solution 4. Cough - ICD9: 786.2, ICD10: R05 - Continue current medication regimen; use albuterol prn. 5. Paroxysmal A-fib (HCC) - ICD9: 427.31, ICD10: I48.0 - Continue current medication regimen. - F/u with Cardiology 6. SOB (shortness of breath) - ICD9: 786.05, ICD10: R06.02 - Albuterol Solution - Oxygen 7. Anxiety - ICD9: 300.00, ICD10: F41.9 - Short term Rx for Ativan 8. Type 2 diabetes mellitus without complication, without long-term current use of insulin (HCC) - ICD9: 250.00, ICD10: E11.9 - Continue current medication regimen. Keep f/u in 2 weeks on 07/31/18 I agree with the Chief Complaint, ROS, and Past Histories independently gathered by the clinical computer technical support specialist and the remaining scribed note accurately describes my personal service to the patient. Saumya Farias MD The documentation for this note was completed by Lamar Love Ma acting as scribe for Saumya Farias MD. July 16, 2018 10:02 AM. I have reviewed the patient?s last hospital course including diagnostic testing performed during this hospitalization, their discharge medications, and my assessment and plan with the patient and any family members present at today?s visit. Referring Provider: SAUMYA FARIAS [[id number]] Allergies As of Date: 07/16/2018 (No Known Allergies) Date Reviewed: 07/16/2018 Reviewed by: Lamar Love Ma - Fully Assessed Reason for Visit: Hospital Follow Up [177] Cmt: TCM-14 day, Admitted on 07/02/18-07/06/18 Reason For Visit History Recorded Primary Visit Diagnosis:Hospital discharge follow-up [Z09] Other Visit Diagnoses:Essential hypertension, benign [I10] Wheezing [R06.2] Cough [R05] Paroxysmal A-fib (HCC) [I48.0] SOB (shortness of breath) [R06.02] Anxiety [F41.9] Type 2 diabetes mellitus without complication, without long-term current use of insulin (HCC) [E11.9] Order(s):UA DIP, URINE (POC) [[id number]] Order #: [id number]. #:[id number] albuterol (PROVENTIL) 2.5 mg /3 mL (0.083 %) nebulizer solutionUse 3 mL via nebulizer every 4 hours as needed for Wheezing/Shortness of Breath. Use over 5-15minutes.Disp: 50 VialRfl: 3 codeine-guaiFENesin (ROBITUSSIN AC) 10-100 mg/5 mL syrupTake 5 mL by mouth three times daily as needed for Cough for up to 30 days.Disp: 120 mLRfl: 1 OXYGEN CONCENTRATOR 2-3 LITER/MIN [E7437GPE] Order #: [id number] LORazepam (ATIVAN) 0.5 mg tabTake 1 tablet by mouth twice daily as needed (For anxiety) for up to 14 days.Disp: 10 tabletRfl: 1 Prescriptions as of 07/16/2018 Sig: AMIODARONE 200 MG TABLET Take 1 tablet by mouth once d* * ASPIRIN 81 MG TABLET Take one(1) tablet daily. ATORVASTATIN 40 MG TABLET Take 1 tablet by mouth daily * CODEINE 10 MG-GUAIFENESIN 100* Take 5 mL by mouth three time* FUROSEMIDE 20 MG TABLET Take 1 tablet by mouth once d* HYDROCHLOROTHIAZIDE 25 MG TAB* Take 1 tablet by mouth once d* METFORMIN 500 MG TABLET Take 1 tablet by mouth twice * METOPROLOL TARTRATE 25 MG TAB* Take 1 tablet by mouth twice * OMEPRAZOLE 20 MG CAPSULE,AKIRA* Take 1 capsule by mouth once * TICAGRELOR 90 MG TABLET Take 1 tablet by mouth twice * ALBUTEROL SULFATE 2.5 MG/3 ML* Use 3 mL via nebulizer every * LORAZEPAM 0.5 MG TABLET Take 1 tablet by mouth twice * Problem List As Of Date 07/16/2018 Noted Resolved OBESITY NOS [E66.9] INVALID FOR* BENIGN HYPERTENSION [I10] INVALID FOR* Hyperlipidemia [E78.5] INVALID FOR* IMPOTENCE, ORGANIC ORIGN [N52.9] INVALID FOR* IMPAIRED FASTING GLUCOSE [R73.01] INVALID FOR* Bullous pemphigoid [L12.0] INVALID FOR* Type 2 diabetes mellitus without complication, *INVALID FOR* Prescriptions ordered this encounter Disp Refills Start End ALBUTEROL SULFATE 2.5 MG/3 ML (0.083* 50 V* 3 07/16/2018 Route: NEBULIZATION Sig: Use 3 mL via nebulizer every 4 hours as needed for Wheezing/Shortness of Breath. Use over 5-15minutes. CODEINE 10 MG-GUAIFENESIN 100 MG/5 M* 120 * 1 07/16/2018 08/15/2018 Class: Print RX Route: ORAL Sig: Take 5 mL by mouth three times daily as needed for Cough for up to 30 days. LORAZEPAM 0.5 MG TABLET 10 t* 1 07/16/2018 07/30/2018 Class: Print RX Route: ORAL Sig: Take 1 tablet by mouth twice daily as needed (For anxiety) for up to 14 days. Medications Discontinued During This Encounter codeine-guaiFENesin (ROBITUSSIN AC) * 120 * 1 02/05/2018 07/16/2018 Class: Print RX Route: ORAL Sig: Take 5 mL by mouth three times daily as needed for Cough for up to 30 days. Disc: Reason for discontinue is not on file. Disposition: Return in about 2 weeks (around 07/30/2018). Follow-up and Disposition History Recorded Encounter Status:Closed by SAUMYA FARISA MD on 07/16/18 PROGRESS Observed: 07/16/2018 Status: COMPLETED Source: [place] 9:55 AM [facility] REPOSITORY O ID: [id number] Author: Saumya Farias Service: (none) Author Type: Physician Type: Progress Notes Filed: 07/16/2018 11:47 AM Note Text: Transitional Care Management Progress Note The patients TCM visit was performed within the 14 days of discharge. Patient's Date of discharge: 07/06/18 Date of initial coordinator contact after discharge: 07/08/18 Discharge diagnosis: HTN (chronic), HLD (chronic), GERD (chronic) and Afib (Acute) Medication review completed Yes TRANSITION CARE MANAGEMENT (TCM) INITIAL CONTACT [facility] Outreach ? Provider Action/FYI: ? - Returned call to pt to setup an appt for TCM within 7-14 days of discharge. ? - Pt reports feeling pretty well today. Notified MA that he completed blood work at [facility] (including INR) and we should be getting these results. Asks if other labs need completed. After review pt should only need A1c which can be done in the office or same day at the lab. ? - Pt states he will be follow up with [facility] at [facility] ([facility]), Dr. Ceja. Labs were placed today to complete at [facility] from Cardiology. ? - Pt has regularly scheduled OV on 07/31/18 and wonders if this appt will need kept. His and himself have appt's that day. Updated pt that we will discuss at upcoming appt to keep it scheduled as is. ? - INR today on lab work was 1.2 from results at [facility]. ? ? Initial contact with patient post discharge, spoke to :Spoke with patient on July 08, 2018 Provider Documentation: In follow-up of hospitalization, Norris Stein is a 77 year old male, following up from his recent hospital stay. With him today is his , Devorah and oldest son, Berhane Stein. Son, Berhane feels that he is working harder to function then right after being discharged from the hospital. Pt does note that he wasn't feeling well after being discharged, had diarrhea and didn't want to eat much. Pt has multiple concerns and questions today. Wonders if banana's, peaches/pears (with sugar added) is ok to have. What kind of greens he can eat with recently being diagnosed with a-fib and taking Warfarin. Is honey or maple syrup ok, uses honey in hot cup of water for his cough. Would like to know if having 1 cup of coffee (with caffeine) is ok. Patient is having some weakness today. States that his urine is colored reddish/ brown since being d/c from the hospital. Denies any pain presently or having kidney symptoms. Is patient able to start bathing, currently getting sponge baths. Also having anxiety attacks during difficult times of breathing and would like to know if he should be prescribed something. Wants a Rx for Albuterol solution to use as needed with nebulizer and an Rx for Oxygen. They use oxygen tank from the [employer] currently. Cough - Wants a refill on cough syrup medication due to coughing a lot at night. Notes he does wheeze and would like to get solution for his nebulizer at home that his grandchildren use. Did receive some breathing treatment while in the hospital. Pt would like to know is the cough related to his heart. Notes that he sleeps in a recliner at times with his feet down, until later in the night he was able to elevate his legs with no coughing. Cost of Brilinta is very expensive. Received one month from the hospital with a coupon, but now paying out of pocket which is over $400. Also taking Warfarin daily and being monitored by Dr. Ceja, INR on 07/12/18 was 3.5. The hospital would like to have patient checked for sleep apnea. He would like to hold off currently until starting to feel better. Following up with Dr. Ceja in August for an appointment. On current regimen of Amiodarone 200 mg TID for one week, then Past medical history, appointments, medications, allergies reviewed. Previous Medical History PAST MEDICAL HISTORY Diagnosis Date - DM (diabetes mellitus) (HCC) - Essential hypertension, benign - Other and unspecified hyperlipidemia - Other specified family circumstances Previous Surgical History PAST SURGICAL HISTORY Procedure Laterality Date - COLONOSCOP W/ OR W/O [facility] SPEC 04/08/15 Colonoscopy Family History No family history on file. Patient Allergies ALLERGIES No Known Allergies Current Medications Current Outpatient Prescriptions on File Prior to Visit: amiodarone (PACERONE) 200 mg tablet Take 1 tablet by mouth once daily. ASPIRIN 81 MG ORAL TAB Take one(1) tablet daily. atorvastatin (LIPITOR) 40 mg tablet Take 1 tablet by mouth daily at bedtime. codeine-guaiFENesin (ROBITUSSIN AC) 10-100 mg/5 mL syrup Take 5 mL by mouth three times daily as needed for Cough for up to 30 days. furosemide (LASIX) 20 mg tablet Take 1 tablet by mouth once daily. hydroCHLOROthiazide (HYDRODIURIL, ESIDRIX) 25 mg tablet Take 1 tablet by mouth once daily. metFORMIN (GLUCOPHAGE) 500 mg tablet Take 1 tablet by mouth twice daily with meals. . metoprolol tartrate, short acting, (LOPRESSOR) 25 mg tablet Take 1 tablet by mouth twice daily. omeprazole (PRILOSEC) 20 mg capsule Take 1 capsule by mouth once daily. ticagrelor (BRILINTA) 90 mg tablet Take 1 tablet by mouth twice daily. No current facility-administered medications on file prior to visit. Social History Social History Marital status: Spouse name: Years of education: Number of children: Social History Main Topics Smoking status: Never Smoker Smokeless tobacco: Never Used Alcohol use: Yes Comment: occasional sip of wine Drug use: No EXAM: BP 130/82 (BP Site: Left Arm, BP Position: Sitting, BP Cuff Size: Regular Adult) Pulse 60 Resp 20 Wt 105.2 kg (232 lb) SpO2 96% BMI 38.02 kg/m? General Appearance: Well appearing, alert, in no acute distress, well-hydrated, well nourished. and Obese. Lungs: lungs clear to auscultation. + wheezing, rhonchi, rales. Heart: RRR without murmur, gallop, or rubs. No ectopy. Abdomen: Normal abdominal exam, Abdomen soft, non-tender. Bowel sounds normal. No masses, organomegaly. Extremities: Edema: Bilaterally noted on exam, minimal. Health Maintenance List BP CONTROLLED (<130/80) due on 1960 DTAP,TDAP,TD(2 - Td) due on 06/25/2017 URINE ALBUMIN:CREATININE RATIO due on 08/07/2018 DIABETIC FOOT EXAM due on 08/07/2018 STATIN MED ADHERENCE due on 08/06/2018 DIABETES MED ADHERENCE due on 08/06/2018 HBA1C due on 08/08/2018 DILATED RETINAL EXAM due on 08/29/2018 LDL CHOLESTEROL due on 02/05/2019 ANNUAL PCP TEAM CHRONIC DISEASE VISIT due on 07/02/2019 COLORECTAL CANCER SCREENING,SEE MODIFIER due on 04/08/2025 ADULT PREVNAR-13 Completed INFLUENZA Completed PNEUMOVAX AGE 65 AND OVER WITH 5YR LOOKBACK Completed Data reviewed [facility] External Records ASSESSMENT/PLAN: 1. Hospital discharge follow-up - ICD9: V67.59, ICD10: Z09 (primary diagnosis) - 2 wk f/u 2. Essential hypertension, benign - ICD9: 401.1, ICD10: I10 - good control - Continue current medication(s) - Goal of BP <140/90 3. Wheezing - ICD9: 786.07, ICD10: R06.2 Clinically has mor wheezing than CHF symptoms - Albuterol solution 4. Cough - ICD9: 786.2, ICD10: R05 - Continue current medication regimen; use albuterol prn. 5. Paroxysmal A-fib (HCC) - ICD9: 427.31, ICD10: I48.0 - Continue current medication regimen. - F/u with Cardiology 6. SOB (shortness of breath) - ICD9: 786.05, ICD10: R06.02 - Albuterol Solution - Oxygen 7. Anxiety - ICD9: 300.00, ICD10: F41.9 - Short term Rx for Ativan 8. Type 2 diabetes mellitus without complication, without long-term current use of insulin (HCC) - ICD9: 250.00, ICD10: E11.9 - Continue current medication regimen. Keep f/u in 2 weeks on 07/31/18 I agree with the Chief Complaint, ROS, and Past Histories independently gathered by the clinical computer technical support specialist and the remaining scribed note accurately describes my personal service to the patient. Saumya Farias MD The documentation for this note was completed by Lamar Love Ma acting as scribe for Saumya Farias MD. July 16, 2018 10:02 AM. I have reviewed the patient?s last hospital course including diagnostic testing performed during this hospitalization, their discharge medications, and my assessment and plan with the patient and any family members present at today?s visit. BASIC METABOLIC Collected: 07/12/2018 Status: F Source: [place] PROFILE (BMP) 8:57 AM [facility] REPOSITORY Order Comment: PATIENT STATED THERE WAS AN A1C ORDERED FROM DR FARIAS, [facility], STATES THEY ARE NOT DUE UNTIL AFTER THE OF THE YEAR TYPE CODE TESTS RESULT OUT OF RANGE REFERENCE UNITS LAB L501.0100 74-106 mg/dL High GLU 117 Result Comment: Fasting Glucose result from 100 to 125 mg/dL suggests IMPAIRED HOMEOSTASIS per A.D.A. criteria. Please note revised GLUCOSE reference range effective 2017. LAB L501.1000 7-18 mg/dL High BUN 37 LAB L501.1100 0.70-1.30 mg/dL High CREAT,SERUM 1.72 Result Comment: The validity of the calculated GFR AND GFRAA in patients over 70 years has not been determined. Clinical correlation is essential. LAB L501.1110 >60 mL/min Low EST GFR 41 Result Comment: Non- GFR Calc LAB L501.1115 >60 mL/min Low EST GFR - AA 50 Result Comment: GFR Calc LAB L501.1300 10-20 RATIO High BUN/CRE 21.5 LAB L501.2200 8.5-10.1 mg/dL CA Normal 8.6 LAB L501.5300 136-145 mmol/L NA Normal 139 LAB L501.5600 3.5-5.1 mmol/L K Normal 4.2 LAB L501.5900 98-107 mmol/L CL Normal 103 LAB L501.6100 21.0-32.0 mmol/L Normal CO2 30.0 LAB L501.6200 5-15 Normal GAP 6 Performed By: #### L500.2500 #### [facility] [address] [place], [address] PROTHROMBIN TIME W/INR Collected: 07/12/2018 Status: F Source: [place] 8:57 AM [facility] REPOSITORY TYPE CODE TESTS RESULT OUT OF REFERENCE UNITS RANGE LAB L300.4150 11.7-14.9 SECONDS High PROTIME 35.5 LAB L300.4200 High alert INR 3.5 Result Comment: CRITICAL VALUE VERIFIED. CALLED TO OFFICE [facility] 07/12/18 1053 [address]. RESULTS READ BACK BY SAME . Performed By: #### L300.3900 #### [facility] [address] [facility] [place], [address] 12 LEAD ELECTROCARDIOGRAM Observed: 07/11/2018 Status: F Source: [place] 3:26 PM [facility] REPOSITORY [facility] [address] [place] [address] 12 Lead EKG 07/04/18 1649 MR#: [id number] Acct: [id number] Name: NORRIS STEIN Kristal Rep #: [id number] : 1940 77 From: Kulwant Ceja MD Attending Dr: Jhon Zamorano MD Status: DIS IN Ordering Dr: Kulwant Ceja MD Date: 07/04/18 Location: [facility] Sex: M C Admitted: 07/02/18 Test Reason : Blood Pressure : / mmHG Vent. Rate : 075 BPM Atrial Rate : 075 BPM P-R Int : 160 ms QRS Dur : 086 ms QT Int : 420 ms P-R-T Axes : 063 052 054 degrees QTc Int : 469 ms Sinus rhythm with Premature atrial complexes Otherwise normal ECG Confirmed by WALT BHANDARI, KULWANT ([id number]), assistant production editor AUBRYE STEIN ([id number]) on 07/11/2018 3:25:46 PM Referred By: Confirmed By:KULWANT CEJA MD 07/11/18 1525 Date Kulwant Ceja MD CC: Saumya Farias MD; Jhon Zamorano MD; Kulwant Ceja MD Signed 12 LEAD ELECTROCARDIOGRAM Observed: 07/11/2018 Status: F Source: [place] 3:26 PM [facility] REPOSITORY [facility] [address] [place] [address] 12 Lead EKG 07/04/18 1649 MR#: [id number] Acct: [id number] Name: JASON STEINBERTHA Giraldo Rep #: [id number] : 1940 77 From: Kulwant Ceja MD Attending Dr: Jhon Zamorano MD Status: DIS IN Ordering Dr: Kulwant Ceja MD Date: 07/04/18 Location: [facility] Sex: M C Admitted: 07/02/18 Test Reason : Blood Pressure : / mmHG Vent. Rate : 073 BPM Atrial Rate : 073 BPM P-R Int : 158 ms QRS Dur : 086 ms QT Int : 422 ms P-R-T Axes : 069 053 057 degrees QTc Int : 464 ms Sinus rhythm with Premature supraventricular complexes Otherwise normal ECG Confirmed by WALT BHANDARI, KULWANT ([id number]), assistant production editor AUBREY STEIN ([id number]) on 07/11/2018 3:25:54 PM Referred By: Confirmed By:KULWANT CEJA MD 07/11/18 1525 Date Kulwant Ceja MD CC: Saumya Farias MD; Jhon Zamorano MD; Kulwant Ceja MD Signed 12 LEAD ELECTROCARDIOGRAM Observed: 07/11/2018 Status: F Source: [place] 3:14 PM [facility] REPOSITORY [facility] [address] [place] [address] 12 Lead EKG 07/05/18 0657 MR#: [id number] Acct: [id number] Name: NORRIS STEIN Rep #: [id number] : 1940 77 From: Kulwant Ceja MD Attending Dr: Jhon Zamorano MD Status: DIS IN Ordering Dr: Kulwant Ceja MD Date: 07/05/18 Location: [facility] Sex: M C Admitted: 07/02/18 Test Reason : AM EKG Blood Pressure : / mmHG Vent. Rate : 085 BPM Atrial Rate : 241 BPM P-R Int : 000 ms QRS Dur : 088 ms QT Int : 430 ms P-R-T Axes : -83 059 064 degrees QTc Int : 511 ms Atrial flutter with variable A-V block Prolonged QT Abnormal ECG Confirmed by WALT BHANDARI, KULWANT ([id number]), assistant production editor AUBREY STEIN ([id number]) on 07/11/2018 3:13:42 PM Referred By: RADHA Confirmed By:KULWANT CEJA MD 07/11/18 1513 Date Kulwant Ceja MD CC: Saumya Farias MD; Jhon Zamorano MD; Kulwant Ceja MD Signed 12 LEAD ELECTROCARDIOGRAM Observed: 07/11/2018 Status: F Source: [place] 3:14 PM [facility] REPOSITORY [facility] [address] [place] [address] 12 Lead EKG 07/05/18 0527 MR#: [id number] Acct: [id number] Name: NORRIS STEIN Rep #: [id number] : 1940 77 From: Kulwant Ceja MD Attending Dr: Jhon Zamorano MD Status: DIS IN Ordering Dr: Werner Wall MD Date: 07/05/18 Location: [facility] Sex: M C Admitted: 07/02/18 Test Reason : AM EKG Blood Pressure : / mmHG Vent. Rate : 064 BPM Atrial Rate : 113 BPM P-R Int : 000 ms QRS Dur : 086 ms QT Int : 444 ms P-R-T Axes : 072 058 060 degrees QTc Int : 458 ms Sinus tachycardia with occasional PACs Abnormal ECG Confirmed by KULWANT CEJA MD ([id number]), assistant production editor AUBREY STEIN ([id number]) on 07/11/2018 3:14:25 PM Referred By: RADHA Confirmed By:KULWANT CEJA MD 07/11/181513 Date Kulwant Ceja MD CC: Werner Wall MD; Saumya Farias MD; Jhon Zamorano MD Signed 12 LEAD ELECTROCARDIOGRAM Observed: 07/11/2018 Status: F Source: [place] 3:13 PM [facility] REPOSITORY [facility] [address] [place] [address] 12 Lead EKG 07/05/18 0856 MR#: [id number] Acct: [id number] Name: NORRIS STEIN Rep #: [id number] : 1940 77 From: Kulwant Ceja MD Attending Dr: Jhon Zamorano MD Status: DIS IN Ordering Dr: Kulwant Ceja MD Date: 07/05/18 Location: [facility] Sex: M C Admitted: 07/02/18 Test Reason : RHYTHM CHANGE Blood Pressure : / mmHG Vent. Rate : 067 BPM Atrial Rate : 067 BPM P-R Int : 170 ms QRS Dur : 088 ms QT Int : 442 ms P-R-T Axes : 071 059 065 degrees QTc Int : 467 ms Sinus rhythm with Premature atrial complexes Otherwise normal ECG Confirmed by KULWANT CEJA MD ([id number]), assistant production editor AUBRYE STEIN ([id number]) on 07/11/2018 3:13:27 PM Referred By: WALT Confirmed By:KULWANT CEJA MD 07/11/18 182 Date Kulwant Ceja MD CC: Saumya Farias MD; Jhon Zamorano MD; Kulwant Ceja MD Signed 12 LEAD ELECTROCARDIOGRAM Observed: 07/11/2018 Status: F Source: [place] 2:19 PM [facility] REPOSITORY [facility] [address] [place] [address] 12 Lead EKG 07/06/18 0542 MR#: [id number] Acct: [id number] Name: NORRIS STEIN Rep #: [id number] : 1940 77 From: Kulwant Ceja MD Attending Dr: Jhon Zamorano MD Status: DIS IN Ordering Dr: Werner Wall MD Date: 07/06/18 Location: [facility] Sex: M C Admitted: 07/02/18 Test Reason : AM EKG Blood Pressure : / mmHG Vent. Rate : 054 BPM Atrial Rate : 054 BPM P-R Int : 172 ms QRS Dur : 092 ms QT Int : 480 ms P-R-T Axes : 063 051 054 degrees QTc Int : 455 ms Sinus bradycardia Otherwise normal ECG Confirmed by WALT BHANDARI, KULWANT ([id number]), assistant production editor AUBREY STEIN ([id number]) on 07/11/2018 2:19:24 PM Referred By: DR ZAMORANO Confirmed By:KULWANT CEJA MD 07/11/18 1419 Date Kulwant Ceja MD CC: Werner Wall MD; Saumya Farias MD; Jhon Zamorano MD Signed 12 LEAD ELECTROCARDIOGRAM Observed: 07/09/2018 Status: F Source: RAAD 3:50 PM [facility] REPOSITORY [facility] Cardi[facility] Services [address] [place] [address] 12 Lead EKG 07/03/18 0800 MR#: [id number] Acct: [id number] Name: NORRIS STEIN Rep #: [id number] : 1940 77 From: Kulwant Ceja MD Attending Dr: Jhon Zamorano MD Status: DIS IN Ordering Dr: Jhon Zamorano MD Date: 07/03/18 Location: [facility] Sex: M C Admitted: 07/02/18 Test Reason : RHYTHM CHANGE Blood Pressure : / mmHG Vent. Rate : 134 BPM Atrial Rate : 144 BPM P-R Int : 000 ms QRS Dur : 080 ms QT Int : 350 ms P-R-T Axes : 000 057 077 degrees QTc Int : 522 ms Atrial flutter Abnormal ECG Confirmed by WALT BHANDARI, KULWANT ([id number]), assistant production editor AUBREY STEIN ([id number]) on 07/09/2018 3:50:03 PM Referred By: RADHA Confirmed By:KULWANT CEJA MD 07/09/18 1550 Date Kulwant Ceja MD CC: Saumya Farias MD; Jhon Zamorano MD Signed 12 LEAD ELECTROCARDIOGRAM Observed: 07/09/2018 Status: F Source: [place] 3:49 PM [facility] REPOSITORY [facility] [address] [place] [address] 12 Lead EKG 07/04/18 0611 MR#: [id number] Acct: [id number] Name: JASON STEINBERTHA Giraldo Rep #: [id number] : 1940 77 From: Kulwant Ceja MD Attending Dr: Jhon Zamorano MD Status: DIS IN Ordering Dr: Werner Wall MD Date: 07/04/18 Location: [facility] Sex: M C Admitted: 07/02/18 Test Reason : AM EKG Blood Pressure : / mmHG Vent. Rate : 096 BPM Atrial Rate : 277 BPM P-R Int : 000 ms QRS Dur : 100 ms QT Int : 380 ms P-R-T Axes : 000 048 058 degrees QTc Int : 480 ms Atrial flutter with variable A-V block Nonspecific ST abnormality Prolonged QT Abnormal ECG Confirmed by WALT BHANDARI, KULWANT ([id number]), assistant production editor AUBREY STEIN ([id number]) on 07/09/2018 3:48:51 PM Referred By: DR CEJA Confirmed By:KULWANT CEJA MD 07/09/18 1548 Date Kulwant Ceja MD CC: Werner Wall MD; Saumya Farias MD; Jhon Zamorano MD Signed PROTHROMBIN TIME W/INR Collected: 07/08/2018 Status: F Source: RAAD 10:18 AM [facility] REPOSITORY Order Comment: Send Results To: Dr. Ceja Reason for Laboratory Test Coumadin TYPE CODE TESTS RESULT OUT OF RANGE REFERENCE UNITS LAB L300.4150 11.7-14.9 SECONDS High PROTIME 19.1 LAB L300.4200 Normal INR 1.6 Performed By: #### L300.3900 #### [facility] [address] [place], [address] BASIC METABOLIC Collected: 07/08/2018 Status: F Source: [place] PROFILE (BMP) 10:18 AM [facility] REPOSITORY Order Comment: Send Results To: Dr. Ceja Reason for Laboratory Test Renal function TYPE CODE TESTS RESULT OUT OF RANGE REFERENCE UNITS LAB L501.0100 74-106 mg/dL High GLU 107 Result Comment: Fasting Glucose result from 100 to 125 mg/dL suggests IMPAIRED HOMEOSTASIS per A.D.A. criteria. Please note revised GLUCOSE reference range effective 2017. LAB L501.1000 7-18 mg/dL High BUN 39 LAB L501.1100 0.70-1.30 mg/dL High CREAT,SERUM 1.64 Result Comment: The validity of the calculated GFR AND GFRAA in patients over 70 years has not been determined. Clinical correlation is essential. LAB L501.1110 >60 mL/min Low EST GFR 44 Result Comment: Non- GFR Calc LAB L501.1115 >60 mL/min Low EST GFR - AA 53 Result Comment: GFR Calc LAB L501.1300 10-20 RATIO High BUN/CRE 23.8 LAB L501.2200 8.5-10.1 mg/dL CA Normal 8.7 LAB L501.5300 136-145 mmol/L NA Normal 140 LAB L501.5600 3.5-5.1 mmol/L K Normal 4.2 LAB L501.5900 98-107 mmol/L CL Normal 103 LAB L501.6100 21.0-32.0 mmol/L Normal CO2 29.0 LAB L501.6200 5-15 Normal GAP 8 Performed By: #### L500.2500 #### [facility] [address] [facility] [place], [address] DISCHARGE SUMMARY Observed: 07/06/2018 Status: F Source: [place] 7:39 PM [facility] REPOSITORY [facility] Medical Records Department [address] [place] [address] Discharge Summary 07/06/181927 MR#: [id number] Acct: [id number] Name: NORRIS STEIN Rep #: [id number] : 1940 77 From: Jhon Zamorano MD PCP: Aman BHANDARI,Saumya Status: DIS IN Y Location: [place] [address] Discharge Date and Diagnosis Date of Admission: 07/02/18 Date of Discharge: 07/06/18 - Secondary Discharge Diagnosis Chronic Problems HTN (hypertension) (Chronic) HLD (hyperlipidemia) (Chronic) GERD (gastroesophageal reflux disease) (Chronic) Hyperglycemia (Chronic) Renal insufficiency (Chronic) Hospital Course and Treatment Imaging Results: CXR: IMPRESSION: Suspicion of underlying COPD/emphysema without acute superimposed cardiopulmonary process. There is no evidence of asymmetric air trapping. There are no convincing features of acute pneumonia. Consultations 07/04/18 08:49 MD to MD Notification of Procedure Routine MD Notified:: Kulwant Ceja Procedures: 2-D Echocardiogram - Interpretation Summary Normal size and thickness. The estimated ejection fraction is 50 %. Unable to assess diastolic dysfunction due to arrhythmia. There is mild global hypokinesis of the left ventricle. Unable to estimate RV systolic pressure/pulmonary artery pressure due to technically difficult study. The study was technically difficult. There is no comparison study available. Contrast injection was performed., Cardiac catheterization - CONCLUSIONS Successful PTCA/CARLOS proximal RCA with a 4.0 x 12 Promus Synergy, post dilated with a 4.0 x 8 NC Balloon; 85%-->0%, no dissection. Summary of Care Provided: HPI: The patient is a 77 year old M with a pmh as above who presents with SOB. He went to his PCP's office today because the SOB has been present for several weeks, and he mentioned that he had been having intermittent palpitations. He had a memorable episode of palpitations several years ago which is when he was started on Metoprolol. An EKG was performed in the the office and he was seen to be in a-fib and was sent to the ER. In the ER he was found to be in a-fib with RVR and he was given a bolus of cardizem 20 mg which caused his rate to drop to the 70's which is where hs stayed. No CP, lightheadedness or dizziness. He does have an elevated creatinine, and he has no previous labs in our system. He was admitted because though his rate is normal, he remains in a-fib and will require further work-up. Hospital Course: 1. 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 An echo was obtained which demonstrated an EF of 50% with mild global hypokinesis which led to the cardiac catheterization that found the 85% occlusion in the right coronary artery therefore stent was deployed. After the procedure he was in the cardiac ICU and was felt to be more in flutter than in A. fib and was started on amiodarone to see if he would spontaneously convert otherwise he would have had to do a SHAINA and cardioversion. He ultimately did convert on an amiodarone drip and was discharged on a p.o. amiodarone taper. He was also discharged on aspirin, Brilinta, and Coumadin. He is to have an INR and a BMP drawn on Sunday. Because of his fluctuating renal function, initially he presented with a creatinine of 1.6-1, and increased to greater than 2 and is now back to 1.87, his AMBER inhibitor and hydrochlorothiazide were both held. He was discharged on metoprolol and a statin. On the day of discharge his INR was 1.2 and he was given 4 mg of Coumadin to take daily. 2. DM 2 -on admission because of his kidney function his metformin was held and he was started on a sliding scale insulin. His blood sugars were maintained less than 150. However, on discharge it his GFR was maintained between 30 and 40 and since he had been on metformin prior, he was discharged on metformin. He will need close outpatient follow-up with a BMP on Sunday. 3. TSH elevation -a TSH was obtained on admission which was elevated to 5.16. This was before he was initiated on amiodarone. At the time it was felt that his TSH was spuriously elevated due to the acute setting. Given that he is now also been started on amiodarone his TSH will need to be followed closely. 4. Leukocytosis -during his hospitalization he was found to have a leukocytosis that appeared suddenly on July 05. Initially he had been normal and then jumped to 16.6 and this was after the cardiac catheterization. I feel at this time that it is likely procedurally related given that on the day of discharge his white blood cell count was 14.5. 5. His other medical diagnoses were evaluated and his home medications were continued were appropriate - Physical Exam Vital Signs Temp Pulse Resp BP Pulse Ox 98.7 F 60 16 136/66 H 95 07/06/18 16:43 07/06/18 16:43 07/06/18 16:43 07/06/18 16:43 07/06/18 16:43 Oxygen Flow Rate (L/min) 2 Oxygen Delivery Method Room Air Weight: 238 lb 9.6 oz Body Mass Index (BMI) 39.6 Intake and Output for Last 24 Hours Intake Total 1498.8 / 1498.8 1941 325.2 / 325.2 Output Total 350 / 350 Balance 1148.8 / 1148.8 1940 325.2 / 325.2 Laboratory Tests Past 24 Hrs WBC POC Glucose POC Glucose 117 H 256 H 135 H POC Glucose 152 H 119 H Discharge Activity: No Restrictions Call your doctor if you observe: Shortness of breath, Dizziness, Swelling in the ankles, Chest pain, Increased palpitations (irregular heartbeat) Home Medications: Medications to take at Discharge Aspirin [Aspirin, Baby] 81 mg PO DAILY@0800 07/02/18 Metformin HCl [Glucophage] 500 mg PO BID 07/02/18 Omeprazole [Prilosec] 20 mg PO DAILY 07/02/18 Amiodarone HCl [Cordarone] 200 mg PO 4X/DAY #26 tab 07/06/18 Amiodarone HCl [Cordarone] 200 mg PO BID #28 tab 07/06/18 Amiodarone HCl [Cordarone] 200 mg PO DAILY #30 tab 07/06/18 Amiodarone HCl [Cordarone] 200 mg PO TID #21 tab 07/06/18 Atorvastatin Calcium [Lipitor] 40 mg PO QHS #30 tab 07/06/18 Furosemide [Lasix] 20 mg PO DAILY #30 tab 07/06/18 Metoprolol Tartrate [Lopressor (beta monica)] 100 mg PO BID #60 tab 07/06/18 Ticagrelor [Brilinta] 90 mg PO BID #60 tab 07/06/18 Warfarin [Coumadin] 4 mg PO DAILY@1700 #30 tab 07/06/18 Following Prescrptions Were Given to Patient: Amiodarone HCl [Cordarone] 200 mg PO DAILY #30 tab Atorvastatin Calcium [Lipitor] 40 mg PO QHS #30 tab Furosemide [Lasix] 20 mg PO DAILY #30 tab Warfarin [Coumadin] 4 mg PO DAILY@1700 #30 tab Amiodarone HCl [Cordarone] 200 mg PO BID #28 tab Metoprolol Tartrate [Lopressor (beta monica)] 100 mg PO BID #60 tab Ticagrelor [Brilinta] 90 mg PO BID #60 tab Amiodarone HCl [Cordarone] 200 mg PO TID #21 tab Amiodarone HCl [Cordarone] 200 mg PO 4X/DAY #26 tab Other Amb Orders: Basic Metabolic Profile (BMP) Time Frame: 07/08/18, Location: Laboratory Prothrombin Time w/INR Time Frame: 07/08/18, Location: Laboratory Primary Care Physician: Saumya Farias MD [Primary Care Provider] - Please follow up with your Primary Care Physician in: In 3- 5 days Disposition: Home Minutes spent on discharge:: 35 Patient Condition:: Good Medical Necessity - Tobacco Use Smoking Status: Never smoker Meaningful Use Info Meaningful Use Diagnoses (Choose all that apply): CHF - CHF AMBER/ARB ordered at discharge?: No Reason AMBER/ARB not ordered?: Worsening renal function Documented LVEF (%): 50 Code Visit Inpatient Shelia RADER M: [id number] Disch Hosp 07/06/181938 <Electronically signed by Jhon Zamorano MD> Date Jhon Zamorano MD Cosigner Signature (if applicable): Date CC: Saumya Farias MD; Jhon Zamorano MD Signed DISCHARGE INSTRUCTION Observed: 07/06/2018 Status: F Source: [place] 5:04 PM [facility] REPOSITORY [facility] Medical Records Department [address] [place] [address] Instructions for Home/Discharge Instructions 07/06/18 1658 MR#: [id number] Acct: [id number] Name: NORRIS STEIN Rep #: [id number] : 1940 77 From: Jhon Zamorano MD PCP: Saumya Farias MD Status: ADM IN - Discharge Diagnoses Current Active Problems: Current Active and Chronic Problems HTN (hypertension) (Chronic) HLD (hyperlipidemia) (Chronic) GERD (gastroesophageal reflux disease) (Chronic) Paroxysmal A-fib (Acute) Atrial fibrillation and flutter (Acute) Cardiomyopathy (Acute) CHF (congestive heart failure) (Acute) Hyperglycemia (Chronic) Renal insufficiency (Chronic) You will use the following diet at home:: Calorie/Carbohydrate Controlled (specify 1200, 1400, etc), Cardiac Your food should be the consistency of: Regular Your liquids should be the consistency of: Regular/Thin Discharge Activity: No Restrictions Call your doctor if you observe: Shortness of breath, Dizziness, Swelling in the ankles, Chest pain, Increased palpitations (irregular heartbeat) Allergies/Adverse Reactions: Allergies No Known Allergies Allergy (Verified 07/02/18 10:30) Medications to take at Discharge Aspirin [Aspirin, Baby] 81 mg PO DAILY@0800 07/02/18 Metformin HCl [Glucophage] 500 mg PO BID 07/02/18 Omeprazole [Prilosec] 20 mg PO DAILY 07/02/18 Amiodarone HCl [Cordarone] 200 mg PO 4X/DAY #26 tab 07/06/18 Amiodarone HCl [Cordarone] 200 mg PO BID #28 tab 07/06/18 Amiodarone HCl [Cordarone] 200 mg PO DAILY #30 tab 07/06/18 Amiodarone HCl [Cordarone] 200 mg PO TID #21 tab 07/06/18 Atorvastatin Calcium [Lipitor] 40 mg PO QHS #30 tab 07/06/18 Furosemide [Lasix] 20 mg PO DAILY #30 tab 07/06/18 Metoprolol Tartrate [Lopressor (beta monica)] 100 mg PO BID #60 tab 07/06/18 Ticagrelor [Brilinta] 90 mg PO BID #60 tab 07/06/18 Warfarin [Coumadin] 4 mg PO DAILY@1700 #30 tab 07/06/18 The following prescriptions were given: Amiodarone HCl [Cordarone] 200 mg PO DAILY #30 tab Atorvastatin Calcium [Lipitor] 40 mg PO QHS #30 tab Furosemide [Lasix] 20 mg PO DAILY #30 tab Warfarin [Coumadin] 4 mg PO DAILY@1700 #30 tab Amiodarone HCl [Cordarone] 200 mg PO BID #28 tab Metoprolol Tartrate [Lopressor (beta monica)] 100 mg PO BID #60 tab Ticagrelor [Brilinta] 90 mg PO BID #60 tab Amiodarone HCl [Cordarone] 200 mg PO TID #21 tab Amiodarone HCl [Cordarone] 200 mg PO 4X/DAY #26 tab Orders to be completed after discharge: Basic Metabolic Profile (BMP) Time Frame: 07/08/18, Location: Laboratory Prothrombin Time w/INR Time Frame: 07/08/18, Location: Laboratory Primary Care Physician: Saumya Farias MD [Primary Care Provider] - Please follow up with your Primary Care Physician in: In 3- 5 days Test Results: Test results from this visit will be discussed in further detail at your follow-up appointment, if applicable. 07/06/18 6424 <Electronically signed by Jhon Zamorano MD> Date Jhon Zamorano MD CC: Saumya Farias MD; Kulwant Ceja MD BEDSIDE GLUCOSE Collected: 07/06/2018 Status: F Source: RAAD 4:38 PM [facility] REPOSITORY TYPE CODE TESTS RESULT OUT OF REFERENCE UNITS RANGE LAB L501.080 70-110 mg/dL High BEDSIDE GLU 117 Result Comment: MANAGEMENT OF PATIENT CARE PER NURSING PROTOCOL Performed By: #### L501.080 #### [facility] Point of Care [address] [place] [address] PARTIAL THROMBOPLAST Collected: 07/06/2018 Status: F Source: RAAD TIME 4:15 PM [facility] REPOSITORY TYPE CODE TESTS RESULT OUT OF RANGE REFERENCE UNITS LAB L300.4310 24.1-36.2 Seconds Normal PTT 29.4 Performed By: #### L300.4310 #### [facility] [address] [place], [address] BEDSIDE GLUCOSE Collected: 07/06/2018 Status: F Source: RAAD 11:19 AM [facility] REPOSITORY TYPE CODE TESTS RESULT OUT OF REFERENCE UNITS RANGE LAB L501.080 70-110 mg/dL High BEDSIDE GLU 256 Result Comment: MANAGEMENT OF PATIENT CARE PER NURSING PROTOCOL Performed By: #### L501.080 #### [facility] Point of Care [address] [place] [address] PARTIAL THROMBOPLAST Collected: 07/06/2018 Status: F Source: RAAD TIME 9:37 AM [facility] REPOSITORY Order Comment: Comments: time sensitive heparin drip TYPE CODE TESTS RESULT OUT OF REFERENCE UNITS RANGE LAB L300.4310 24.1-36.2 Seconds High PTT 86.1 Performed By: #### L300.4310 #### [facility] [address] [place], [address] BEDSIDE GLUCOSE Collected: 07/06/2018 Status: F Source: RAAD 6:37 AM [facility]POS[facility] TYPE CODE TESTS RESULT OUT OF REFERENCE UNITS RANGE LAB L501.080 70-110 mg/dL High BEDSIDE GLU 135 Result Comment: MANAGEMENT OF PATIENT CARE PER NURSING PROTOCOL Performed By: #### L501.080 #### [facility] [place] [address] CBC W/DIFF, AUTOMATED Collected: 07/06/2018 Status: F Source: RAAD 3:08 AM [facility] REPOS[facility] TYPE CODE TESTS RESULT OUT OF RANGE REFERENCE UNITS LAB L100.1000 4.4-11.0 K/mm3 High WBC 14.5 LAB L100.1200 4.6-6.2 M/mm3 Low RBC 4.26 LAB L100.1300 13.0-16.5 g/dl Low HGB 12.7 LAB L100.1400 40-54 % Low HCT 38.5 LAB L100.1500 80-94 fL Normal MCV 90.4 LAB L100.1600 27.0-32.0 pg Normal MCH 29.8 LAB L100.1700 32-36 g/gl Normal MCHC 33.0 LAB L100.1810 11.6-14.6 % Normal RDW CV 14.2 LAB L100.1820 35.1-43.9 fl High RDW SD 46.1 LAB L100.1900 150-450 K/mm3 Normal PLT 165 LAB L100.2000 6.2-12.0 fl Normal MPV 10.2 LAB L100.2100 47-70 % High NEUT% 77.7 LAB L100.2200 19-41 % Low LY% 12.9 LAB L100.2300 0-10 % Normal MONO% 7.9 LAB L100.2400 0-5 % Normal EO% 1.1 LAB L100.2500 0-1 % Normal BASO% 0.3 LAB L100.2550 0.0-0.9 % Normal IM GRAN % 0.100 Result Comment: IG% - Immature Granulocytes (promyelocytes, myelocytes and metamyelocytes) > 1% indicates that a LEFT SHIFT is Present. LAB L100.2620 2.0-7.7 X10 3/uL High Absolute Neut 11.3 LAB L100.2720 0.83-4.51 X10 3/ul Normal Absolute Lymph 1.87 Performed By: #### L100.0100 #### [facility] [address] [place], [address] PROTHROMBIN TIME W/INR Collected: 07/06/2018 Status: F Source: RAAD 3:08 AM [facility] REPOSITORY Order Comment: Comments: time sensitive heparin drip TYPE CODE TESTS RESULT OUT OF RANGE REFERENCE UNITS LAB L300.4150 11.7-14.9 SECONDS High PROTIME 15.5 LAB L300.4200 Normal INR 1.2 Performed By: #### L300.3900, L300.4310 #### [facility] [address] [place], [address] PARTIAL THROMBOPLAST Collected: 07/06/2018 Status: F Source: RAAD TIME 3:08 AM [facility] REPOSITORY Order Comment: Comments: time sensitive heparin drip TYPE CODE TESTS RESULT OUT OF REFERENCE UNITS RANGE LAB L300.4310 24.1-36.2 Seconds High PTT 79.6 Performed By: #### L300.3900, L300.4310 #### [facility] [address] [place], [address] BASIC METABOLIC Collected: 07/06/2018 Status: F Source: RAAD PROFILE (BMP) 3:08 AM [facility] REPOSITORY TYPE CODE TESTS RESULT OUT OF RANGE REFERENCE UNITS LAB L501.0100 74-106 mg/dL High GLU 144 Result Comment: Fasting Glucose result greater than or equal to 126 mg/dL suggests DIABETES MELLITUS per A.D.A. criteria. Please note revised GLUCOSE reference range effective 2017. LAB L501.1000 7-18 mg/dL High BUN 50 LAB L501.1100 0.70-1.30 mg/dL High CREAT,SERUM 1.87 Result Comment: The validity of the calculated GFR AND GFRAA in patients over 70 years has not been determined. Clinical correlation is essential. LAB L501.1110 >60 mL/min Low EST GFR 38 Result Comment: Non- GFR Calc LAB L501.1115 >60 mL/min Low EST GFR - AA 45 Result Comment: GFR Calc LAB L501.1255 ml/min Normal Estimated CRCL 29.69 LAB L501.1300 10-20 RATIO High BUN/CRE 26.7 LAB L501.2200 8.5-10 mg/dL Low .1 CA 8.4 LAB L501.5300 136-14 mmol/L Normal 5 NA 138 LAB L501.5600 3.5-5. mmol/L Normal 1 K 4.1 LAB L501.5900 98-107 mmol/L Normal CL 99 LAB L501.6100 21.0-3 mmol/L Normal 2.0 CO2 29.0 LAB L501.6200 5-15 Normal GAP 10 Performed By: #### L500.2500 #### [facility] [address] [place], [address] BEDSIDE GLUCOSE Collected: 07/06/2018 Status: F Source: RAAD 2:39 AM [facility] REPOSITORY TYPE CODE TESTS RESULT OUT OF REFERENCE UNITS RANGE LAB L501.080 70-110 mg/dL High BEDSIDE GLU 152 Result Comment: MANAGEMENT OF PATIENT CARE PER NURSING PROTOCOL Performed By: #### L501.080 #### [facility] Point of Care [address] [place] [address] BEDSIDE GLUCOSE Collected: 07/05/2018 Status: F Source: RAAD 9:45 PM [facility] REPOSITORY TYPE CODE TESTS RESULT OUT OF REFERENCE UNITS RANGE LAB L501.080 70-110 mg/dL High BEDSIDE GLU 119 Result Comment: MANAGEMENT OF PATIENT CARE PER NURSING PROTOCOL Performed By: #### L501.080 #### [facility] Point of Care [address] [place] [address] PARTIAL THROMBOPLAST Collected: 07/05/2018 Status: F Source: RAAD TIME 8:22 PM [facility] REPOSITORY TYPE CODE TESTS RESULT OUT OF REFERENCE UNITS RANGE LAB L300.4310 24.1-36.2 Seconds High alert PTT 97.7 Result Comment: RESULTS CALLED TO JAI REGALADO 07/05/180 Sanford Pratt. REPORT READ BACK BY SAME . Performed By: #### L300.4310 #### [facility] [address] [place], [address] BEDSIDE GLUCOSE Collected: 07/05/2018 Status: F Source: RAAD 5:06 PM [facility] REPOSIT[facility] TYPE CODE TESTS RESULT OUT OF REFERENCE UNITS RANGE LAB L501.080 70-110 mg/dL High BEDSIDE GLU 172 Result Comment: MANAGEMENT OF PATIENT CARE PER NURSING PROTOCOL Performed By: #### L501.080 #### [facility] Laboratory Point of Care [address] [place] [address] 12 LEAD ELECTROCARDIOGRAM Observed: 07/05/2018 Status: F Source: RAAD 2:25 PM [facility] REPOSITORY [facility] Cardiovascular Services [address] [place] [address] 12 Lead EKG 07/02/18 1037 MR#: [id number] Acct: [id number] Name: NORRIS STEIN Rep #: [id number] : 1940 77 From: Fernando Hendrix MD Attending Dr: Jhon Zamorano MD Status: ADM IN Ordering Dr: Elroy Zhong DO Date: 07/02/18 Location: ICU Sex: M C Admitted: 07/02/18 Test Reason : SOB Blood Pressure : / mmHG Vent. Rate : 144 BPM Atrial Rate : 122 BPM P-R Int : 000 ms QRS Dur : 088 ms QT Int : 352 ms P-R-T Axes : 000 038 056 degrees QTc Int : 545 ms Supraventricular tachycardia Nonspecific ST abnormality Abnormal ECG Confirmed by CLOTILDE BHANDARI, FERNANDO ([id number]), assistant production editor FRANCISCO JAVIER FRAGOSO ([id number]) on 07/05/2018 2:25:02 PM Referred By: GO Confirmed By:FERNANDO HENDRIX MD 07/05/18 1425 Date Fernando Hendrix MD CC: Saumya Farias MD; Jhon Zamorano MD; Elroy Zhong DO Signed PARTIAL THROMBOPLAST Collected: 07/05/2018 Status: F Source: RAAD TIME 1:45 PM [facility] REPOSITORY TYPE CODE TESTS RESULT OUT OF REFERENCE UNITS RANGE LAB L300.4310 24.1-36.2 Seconds High alert PTT 241.0 Result Comment: CRITICAL VALUE VERIFIED. CALLED TO JOSHUA PARTIDA 07/05/18 1415 Bernardo Szymanski. RESULTS READ BACK BY SAME. Performed By: #### L300.4310 #### [facility] [address] [facility] [address] [place], [place], [address] BEDSIDE GLUCOSE Collected: 07/05/2018 Status: F Source: RAAD 11:51 AM [facility] REPOSIT[facility] TYPE CODE TESTS RESULT OUT OF REFERENCE UNITS RANGE LAB L501.080 70-110 mg/dL High BEDSIDE GLU 167 Result Comment: MANAGEMENT OF PATIENT CARE PER NURSING PROTOCOL Performed By: #### L501.080 #### [facility] Point of Care [address] [place], [place] [address] BEDSIDE GLUCOSE Collected: 07/05/2018 Status: F Source: RAAD 7:10 AM [facility] REPOSITORY TYPE CODE TESTS RESULT OUT OF REFERENCE UNITS RANGE LAB L501.080 70-110 mg/dL High BEDSIDE GLU 156 Result Comment: MANAGEMENT OF PATIENT CARE PER NURSING PROTOCOL Performed By: #### L501.080 #### [facility] Point of Care [address] [place], [place] [address] CBC-COMPLETE BLOOD CNT Collected: 07/05/2018 Status: F Source: RAAD NO DIFF 4:15 AM [facility] REPOSITORY TYPE CODE TESTS RESULT OUT OF RANGE REFERENCE UNITS LAB L100.1000 4.4-11.0 K/mm3 High WBC 16.6 LAB L100.1200 4.6-6.2 M/mm3 Low RBC 4.35 LAB L100.1300 13.0-16.5 g/dl Normal HGB 13.0 LAB L100.1400 40-54 % Low HCT 39.2 LAB L100.1500 80-94 fL Normal MCV 90.1 LAB L100.1600 27.0-32.0 pg Normal MCH 29.9 LAB L100.1700 32-36 g/gl Normal MCHC 33.2 LAB L100.1810 11.6-14.6 % Normal RDW CV 14.0 LAB L100.1820 35.1-43.9 fl High RDW SD 44.8 LAB L100.1900 150-450 K/mm3 Normal PLT 187 LAB L100.2000 6.2-12.0 fl Normal MPV 10.4 Performed By: #### L100.0500 #### [facility] [address] [place], [place], [address] PROTHROMBIN TIME W/INR Collected: 07/05/2018 Status: F Source: RAAD 4:15 AM [facility] REPOSITORY TYPE CODE TESTS RESULT OUT OF RANGE REFERENCE UNITS LAB L300.4150 11.7-14.9 SECONDS Normal PROTIME 14.8 LAB L300.4200 Normal INR 1.2 Performed By: #### L300.3900 #### [facility] [address] [place], [address] BASIC METABOLIC Collected: 07/05/2018 Status: F Source: [place] PROFILE (BMP) 4:15 AM [facility] REPOSITORY TYPE CODE TESTS RESULT OUT OF RANGE REFERENCE UNITS LAB L501.0100 74-106 mg/dL High GLU 196 Result Comment: Fasting Glucose result greater than or equal to 126 mg/dL suggests DIABETES MELLITUS per A.D.A. criteria. Please note revised GLUCOSE reference range effective 2017. LAB L501.1000 7-18 mg/dL High BUN 47 LAB L501.1100 0.70-1.30 mg/dL High CREAT,SERUM 2.07 Result Comment: The validity of the calculated GFR AND GFRAA in patients over 70 years has not been determined. Clinical correlation is essential. LAB L501.1110 >60 mL/min Low EST GFR 33 Result Comment: Non- GFR Calc LAB L501.1115 >60 mL/min Low EST GFR - AA 40 Result Comment: GFR Calc LAB L501.1255 ml/min Normal Estimated CRCL 26.82 LAB L501.1300 10-20 RATIO High BUN/CRE 22.7 LAB L501.2200 8.5-10 mg/dL Low .1 CA 8.4 LAB L501.5300 136-14 mmol/L Normal 5 NA 140 LAB L501.5600 3.5-5. mmol/L Normal 1 K 4.2 Result Comment: Slight Hemolysis, Result may be falsely increased. LAB L501.5900 98-107 mmol/L Normal CL 100 LAB L501.6100 21.0-32.0 mmol/L Normal CO2 27.0 LAB L501.6200 5-15 Normal GAP 13 Performed By: #### L500.2500, L500.4100 #### [facility] [address] [facility] [place], [place], [id number] LIPID PROFILE Collected: 07/05/2018 Status: F Source: RAAD 4:15 AM [facility] REPOSITORY TYPE CODE TESTS RESULT OUT OF RANGE REFERENCE UNITS LAB L501.4900 200 mg/dL Normal CHOL 134 Result Comment: <200 mg/dL Desirable 200-240 mg/dL Borderline >240 mg/dL High Risk LAB L501.5000 mg/dL Normal TRIG 97 Result Comment: The drugs N-Acetylcysteine and Metamizole may falsely depress this assay. Serum Triglycerides Reference Interval Normal <150 mg/dL Borderline high 150 - 199 mg/dL High 200 - 499 mg/dL Very High > or = 500 mg/dL LAB L501.6400 mg/dL Low HDL 34 Result Comment: The drugs N-Acetylcysteine and Metamizole may falsely depress this assay. Reference Range HDL <40 mg/dL Low HDL Cholesterol HDL >or= 60 mg/dL High HDL Cholesterol LAB L501.6500 0-130 mg/dL Normal LDL 81 LAB L501.6600 5-40 mg/dL Normal VLDL 19 Performed By: #### L500.2500, L500.4100 #### [facility] [address] [facility] [address] [place], [place], [id number] PARTIAL THROMBOPLAST Collected: 07/05/2018 Status: F Source: RAAD TIME 4:15 AM [facility] REPOSITORY TYPE CODE TESTS RESULT OUT OF RANGE REFERENCE UNITS LAB L300.4310 24.1-36.2 Seconds Normal PTT 24.1 Performed By: #### L300.4310 #### [facility] [address] [facility]. [place], [place], [id number] BEDSIDE GLUCOSE Collected: 07/05/2018 Status: F Source: RAAD 2:52 AM [facility] REPOSITORY TYPE CODE TESTS RESULT OUT OF REFERENCE UNITS RANGE LAB L501.080 70-110 mg/dL High BEDSIDE GLU 184 Result Comment: MANAGEMENT OF PATIENT CARE PER NURSING PROTOCOL Performed By: #### L501.080 #### [facility] Point of Care [address] [place] [address] BEDSIDE GLUCOSE Collected: 07/04/2018 Status: F Source: RAAD 9:36 PM [facility] REPOSITORY TYPE CODE TESTS RESULT OUT OF REFERENCE UNITS RANGE LAB L501.080 70-110 mg/dL High BEDSIDE GLU 142 Result Comment: MANAGEMENT OF PATIENT CARE PER NURSING PROTOCOL Performed By: #### L501.080 #### [facility] Point of Care [address] [place] [address] BEDSIDE GLUCOSE Collected: 07/04/2018 Status: F Source: RAAD 4:42 PM [facility] REPOSITORY TYPE CODE TESTS RESULT OUT OF REFERENCE UNITS RANGE LAB L501.080 70-110 mg/dL High BEDSIDE GLU 329 Result Comment: MANAGEMENT OF PATIENT CARE PER NURSING PROTOCOL Performed By: #### L501.080 #### [facility] Point of Care [address] [place] [address] BEDSIDE GLUCOSE Collected: 07/04/2018 Status: F Source: RAAD 12:10 PM [facility] REPOSITORY TYPE CODE TESTS RESULT OUT OF REFERENCE UNITS RANGE LAB L501.080 70-110 mg/dL High BEDSIDE GLU 190 Result Comment: MANAGEMENT OF PATIENT CARE PER NURSING PROTOCOL Performed By: #### L501.080 #### [facility] Point of Care [address] [place] [address] ACT ACTIVATED CLOTTING Collected: 07/04/2018 Status: F Source: RAAD TIME 8:42 AM [facility] REPOSITORY TYPE CODE TESTS RESULT OUT OF RANGE REFERENCE UNITS LAB L9100.0100 74-137 sec High ACTk CLOT 235 TIME Performed By: #### L9100.0100 #### [facility] Point of Care [address] [place] [address] BEDSIDE GLUCOSE Collected: 07/04/2018 Status: F Source: RAAD 6:51 AM [facility] REPOSITORY TYPE CODE TESTS RESULT OUT OF REFERENCE UNITS RANGE LAB L501.080 70-110 mg/dL High BEDSIDE GLU 209 Result Comment: MANAGEMENT OF PATIENT CARE PER NURSING PROTOCOL Performed By: #### L501.080 #### [facility] Point of Care [address] [place], [place] [address] BASIC METABOLIC Collected: 07/04/2018 Status: F Source: RAAD PROFILE (BMP) 5:00 AM [facility] REPOSITORY TYPE CODE TESTS RESULT OUT OF RANGE REFERENCE UNITS LAB L501.0100 74-106 mg/dL High GLU 172 Result Comment: Fasting Glucose result greater than or equal to 126 mg/dL suggests DIABETES MELLITUS per A.D.A. criteria. Please note revised GLUCOSE reference range effective 2017. LAB L501.1000 7-18 mg/dL High BUN 29 LAB L501.1100 0.70-1.30 mg/dL High CREAT,SERUM 1.61 Result Comment: The validity of the calculated GFR AND GFRAA in patients over 70 years has not been determined. Clinical correlation is essential. LAB L501.1110 >60 mL/min Low EST GFR 45 Result Comment: Non- GFR Calc LAB L501.1115 >60 mL/min Low EST GFR - AA 54 Result Comment: GFR Calc LAB L501.1255 ml/min Normal Estimated CRCL 34.48 LAB L501.1300 10-20 RATIO Normal BUN/CRE 18.0 LAB L501.2200 8.5-10 mg/dL Normal .1 CA 9.4 LAB L501.5300 136-14 mmol/L Normal 5 NA 139 LAB L501.5600 3.5-5. mmol/L Normal 1 K 4.1 LAB L501.5900 98-107 mmol/L Normal CL 98 LAB L501.6100 21.0-3 mmol/L Normal 2.0 CO2 32.0 LAB L501.6200 5-15 Normal GAP 9 Performed By: #### L500.2500 #### [facility] [address] [place], [address] CBC W/DIFF, AUTOMATED Collected: 07/04/2018 Status: F Source: RAAD 5:00 AM [facility] REPOSITORY TYPE CODE TESTS RESULT OUT OF RANGE REFERENCE UNITS LAB L100.1000 4.4-11.0 K/mm3 Normal WBC 8.7 LAB L100.1200 4.6-6.2 M/mm3 Normal RBC 5.30 LAB L100.1300 13.0-16.5 g/dl Normal HGB 15.6 LAB L100.1400 40-54 % Normal HCT 47.3 LAB L100.1500 80-94 fL Normal MCV 89.2 LAB L100.1600 27.0-32.0 pg Normal MCH 29.4 LAB L100.1700 32-36 g/gl Normal MCHC 33.0 LAB L100.1810 11.6-14.6 % Normal RDW CV 13.7 LAB L100.1820 35.1-43.9 fl High RDW SD 44.2 LAB L100.1900 150-450 K/mm3 Normal PLT 157 LAB L100.2000 6.2-12.0 fl Normal MPV 10.0 LAB L100.2100 47-70 % High NEUT% 87.7 LAB L100.2200 19-41 % Low LY% 9.2 LAB L100.2300 0-10 % Normal MONO% 2.3 LAB L100.2400 0-5 % Normal EO% 0.6 LAB L100.2500 0-1 % Normal BASO% 0.2 LAB L100.2550 0.0-0.9 % Normal IM GRAN % 0.000 Result Comment: IG% - Immature Granulocytes (promyelocytes, myelocytes and metamyelocytes) > 1% indicates that a LEFT SHIFT is Present. LAB L100.2620 2.0-7.7 X10 3/uL Normal Absolute Neut 7.7 LAB L100.2720 0.83-4.51 X10 3/ul Low Absolute Lymph 0.80 Performed By: #### L100.0100 #### [facility] [address] [place], [place], [id number] PROTHROMBIN TIME W/INR Collected: 07/04/2018 Status: F Source: [place] 5:00 AM [facility] REPOSITORY TYPE CODE TESTS RESULT OUT OF RANGE REFERENCE UNITS LAB L300.4150 11.7-14.9 SECONDS Normal PROTIME 13.6 LAB L300.4200 Normal INR 1.0 Performed By: #### L300.3900, L300.4310 #### [facility] [address] [place], [place], [address] PARTIAL THROMBOPLAST Collected: 07/04/2018 Status: F Source: RAAD TIME 5:00 AM [facility] REPOSITORY TYPE CODE TESTS RESULT OUT OF RANGE REFERENCE UNITS LAB L300.4310 24.1-36.2 Seconds Normal PTT 28.3 Performed By: #### L300.3900, L300.4310 #### [facility] [address] [place], [address] CHEST 1 VIEW Observed: 07/04/2018 Status: F Source: RAAD (PORTABLE) 1:36 AM [facility] REPOSITORY [facility] Imaging Services [address] [place] [address] Chest 1 View (Portable) MR#: [id number] Acct: [id number] Name: NORRIS STEIN Rep #: [id number] : 1940 M 77 From: Bernardo Juarez MD PCP: Saumya Farias MD Status: ADM IN Study: Chest 1 View (Portable) Date of Exam: 07/04/18 Exam# [id number] Ordering Dr: Jonnathan Watson MD HISTORY: SOBShort of Breath/DyspneaRAD - Chest EXAM: XR Chest 1 View: COMPARISON: 07/02/2018 FINDINGS: EKG leads in place. Interval worsening with development of mild CHF. Right perihilar haze secondary to edema. Probable small right pleural effusion. The heart is unchanged in size. No pneumothorax. RAD/Chest 1 View (Portable) IMPRESSION: Interval worsening with development of mild CHF with small right pleural effusion. at 0217 Reported and signed by: Bernardo Juarez MD Electronically Signed: Bernardo Juarez, at 2:15 EST Tel , Service support , CC: Jonnathan Watson MD; Saumya Farias MD [employer] Supervisor: Signed URINALYSIS, ROUTINE Collected: 07/03/2018 Status: F Source: RAAD (DIPSTICK) 11:45 PM [facility] REPOSITORY Order Comment: Order Date: 07/03/18 How was Urine Obtained? CLEAN CATCH TYPE CODE TESTS RESULT OUT OF RANGE REFERENCE UNITS LAB L400.3000 Yellow COLOR Normal Straw LAB L400.3050 Clear Normal CLARITY Clear LAB L400.3200 Normal mg/dl Normal GLUCOSE, UR Normal LAB L400.3300 Negative mg/dL Normal BILIRUBIN URINE Negative LAB L400.3400 Negative mg/dl Normal KETONE UR Negative LAB L400.3465 1.002-1.030 Normal SP.GR. DIPSTX 1.005 LAB L400.3550 5.0 - 8.0 pH UR Normal 6.5 LAB L400.3600 Negative mg/dl PROT Normal DIPSTX Negative LAB L400.3700 Normal mg/dl Normal UROBILI Normal LAB L400.3750 Negative Normal NITRITE UR Negative LAB L400.3780 Negative /ul Normal OCCULT BLOOD-UR Negative LAB L400.3800 Negative /ul LEUK Normal ESTERASE Negative Performed By: #### L400.2010 #### [facility] [address] [place], [address] BEDSIDE GLUCOSE Collected: 07/03/2018 Status: F Source: [place] 9:29 PM [facility] REPOSITORY TYPE CODE TESTS RESULT OUT OF REFERENCE UNITS RANGE LAB L501.080 70-110 mg/dL High BEDSIDE GLU 153 Result Comment: MANAGEMENT OF PATIENT CARE PER NURSING PROTOCOL Performed By: #### L501.080 #### [facility] Point of Care [address] [place] [address] CONSULTATION Observed: 07/03/2018 Status: F Source: [place] 7:33 PM [facility] REPOSITORY [facility] Medical Records Department [address] [place] [address] Consultation 07/03/181916 MR#: [id number] Acct: [id number] Name: NORRIS STEIN Kristal Rep #: [id number] : 1940 77 From: Kulwant Ceja MD PCP: Saumya Farias MD Status: ADM IN Y Location: [place] [address] Problem List (1) Atrial fibrillation and flutter Status: Acute (2) Cardiomyopathy Status: Acute (3) CHF (congestive heart failure) Status: Acute Qualifiers: Heart failure type: systolic (4) HLD (hyperlipidemia) Status: Chronic (5) HTN (hypertension) Status: Chronic (6) Hyperglycemia Status: Chronic (7) Renal insufficiency Status: Chronic Reason for Consult Date of Consultation: 07/03/18 History of Present Illness: The patient is a 77 year old white male with a past medical history of hyperlipidemia, hypertension, hyperglycemia, possible chronic renal insufficiency, who is referred for evaluation of atrial fibrillation/flutter, and abnormal transthoracic echocardiogram suggesting a cardiomyopathy, and findings concerning for CHF. He notes that for some time now, potentially 1-2 weeks or up to 1 month he has felt progressively short of breath and dyspneic especially with activity. This feeling has been associated with chest pressure discomfort. He has denied any acute orthopnea or PND. He has had lower extremity peripheral pitting edema. He has noted palpitations and rapid heart rate sensation but has denied near syncope or syncope. He notes based upon his symptoms and his feelings he was evaluated in an outpatient setting. He was found to be in what was reported as atrial fibrillation and subsequently referred to the [facility] for further evaluation care. Based upon review of his cardiac rhythm strip/ECGs there are concerns he has been in atrial flutter with a rapid ventricular response. He has been monitored. He has had a repeat ECGs demonstrating the above. He had a transthoracic echocardiogram performed today. His left ventricle was thought to be globally hypokinetic with an LVEF of 50%. He had a chest x-ray suggesting underlying COPD. He has been treated medically. This is required the use of IV diltiazem in attempt to slow his cardiac rate. He has also been on beta-monica therapy with the dose increasing. He has been on anticoagulant therapy with subcutaneous Lovenox. [] Past Medical History Allergies/Adverse Reactions: Allergies No Known Allergies Allergy (Verified 07/02/18 10:30) Home Medications: Ambulatory Orders Medication Instructions Recorded Past Medical History (Chronic Problems): Chronic Problems HTN (hypertension) (Chronic) HLD (hyperlipidemia) (Chronic) GERD (gastroesophageal reflux disease) (Chronic) Hyperglycemia (Chronic) Renal insufficiency (Chronic) Surgical History: total hip arthroplasty, total knee arthroplasty - *Family History Maternal History Items: High Cholesterol, Heart Disease, Hypertension Lives: With Family Smoking Status: Never smoker Alcohol: None Drugs: None Review of Systems - Review of Systems General: Denies: Fever, Night Sweats, Fatigue Cardiovascular: Reports: Chest Discomfort, Shortness of Breath, Shortness of Breath with Exertion, Peripheral Edema. Denies: Orthopnea, PND, Palpitations, Lightheadedness, Dizziness, Near Syncope, Syncope Respiratory: Reports: Shortness of Breath. Denies: Cough, Sputum Production, Hemoptysis Gastrointestinal: Denies: Hematemesis, Hematochezia, Melena Genitourinary: Denies: Dysuria, Hematuria Skin: Denies: Rash Subjectve: This is a 77-year-old white male who appears to be resting reasonably comfortably at the moment in no acute distress. Objective: Vital Signs Temp Pulse Resp BP Pulse Ox 98.0 F 86 26 H 131/70 H 97 07/03/18 11:32 07/03/18 17:37 07/03/18 17:37 07/03/18 11:32 07/03/18 11:42 Oxygen Flow Rate (L/min) 2 Oxygen Delivery Method Room Air Weight: 238 lb 9.6 oz Body Mass Index (BMI) 39.6 Intake and Output for Last 24 Hours Intake Total 360 / 360 720 / 720 Balance 360 / 360 720 / 720 General: Awake, Alert, Oriented x 3, Cooperative, No Acute Distress, Obese HEENT: Atraumatic, Normocephalic, PERRL, EOMI, Sclera Non Icteric Oral: Moist Mucosa Neck: Supple, Good ROM, No JVD Lungs: Diminished Josr Bases Cardiovascular: Irregular Rhythm, Normal S1, Normal S2 Vascular: No Carotid Bruits Abdomen: Bowel Sounds Present, Soft, Non Tender, Obese Extremities: Mild RLE Edema, Mild LLE Edema Neurological: No Focal Motor or Sensory Deficit Psych/Mental Status: Appropriate, Normal Affect 07/03/18 05:08: WBC 6.8, RBC 4.78, Hgb 14.1, Hct 43.6, MCV 91.2, MCH 29.5, MCHC 32.3, RDW 13.8, RDW Differential 45.5 H, Plt Count 138 L, MPV 9.7, Immature Gran % (Auto) 0.100, Neut % (Auto) 61.5, Lymph % (Auto) 27.9, Mcpherson % (Auto) 6.8, Eos % (Auto) 3.4, Baso % (Auto) 0.3, Absolute Neuts (auto) 4.2, Total Counted Not Reportable 07/03/18 05:08: Sodium 137, Potassium 4.7, Chloride 101, Carbon Dioxide 31.0, Anion Gap 5, BUN 25 H, Creatinine 1.34 H, Est GFR (MDRD) Af Amer 67, Est GFR (MDRD) Non-Af 55 L, BUN/Creatinine Ratio 18.7, Glucose 125 H, Calcium 8.7 Rhythm: Atrial flutter EKG: As noted above ECHO: As noted above CXR: As noted above Assessment/Plan 1. Atrial fibrillation/flutter At the present time the patient appears to be predominantly in atrial flutter with rapid ventricular response. He has been undergoing noninvasive cardiovascular evaluation as noted above. He has been treated medically with rate control therapy and anticoagulant therapy. However, despite these attempts he continues with his atrial dysrhythmia with episodes of rapid ventricular response. Thus he will need continued rate control therapy, consideration for possible antiarrhythmic therapy, continued anticoagulant therapy, and consideration for possible synchronized biphasic DC cardioversion, which based upon the concern of the duration of the patient's findings may need to be SHAINA guided. 2. Cardiomyopathy The patient does have what appears to be a mildly diminished LV systolic function. It is unclear whether this is related to his atrial dysrhythmia and a tachycardic induced event versus being a separate underlying primary cardiovascular finding. He does need to continue medical management for this. This would include agents such as beta blockers, afterload reducing agents, etc. Also controlling his rate and rhythm would be beneficial. Hopefully if that is under better control his overall LV systolic function will improve. 3. Congestive heart failure The patient does have signs and symptoms compatible with underlying CHF. Based upon his objective findings thus far this appears to be systolic mediated. He will need to continue medical management. This will include diuretic therapy. 4. Hyperlipidemia The patient has been on lipid-lowering therapy in the past. This can be continued. 5. Hypertension The patient states he has a long-standing history of hypertension. He believes it has been reasonably well controlled on medical management. 6. Hyperglycemia The patient states he was placed on hypoglycemic agents to try and bring his glucose levels under better control. 7. Renal insufficiency Based upon the patient's history he may have a history of chronic renal insufficiency. This will need be followed during his evaluation care as it may impact medical management, etc. Overall, the present time, the patient will continue to be monitored. He will continue medical management as described above. However based upon his cardiovascular risks, his symptoms, his objective findings, knowing that he may require antiarrhythmic agents some of which he may or may not be able to be on based upon a concern of underlying CAD, etc., it was felt reasonable that the patient undergo further cardiovascular evaluation with a diagnostic cardiac catheterization. Depending upon the findings he may or may not require not only medical management but potentially coronary artery revascularization therapy. If the patient does not have significant underlying CAD then he will continue with medical management with consideration for future attempts at regaining sinus rhythm which again may require a SHAINA guided synchronized biphasic DC cardioversion. The above was discussed and reviewed with the patient, spouse, and his other family members present. The patient and his family members present were in agreement to the aforementioned evaluation care plan. This note was generated using a voice recognition system and there may be incorrect words, spelling or punctuation that were not noted when reviewing the office note prior to saving. 07/03/181932 <Electronically signed by Kulwant Ceja MD> Date Kulwant Ceja MD Cosigner Signature (if applicable): Date CC: Saumya Farias MD; Kulwant Ceja MD Signed BEDSIDE GLUCOSE Collected: 07/03/2018 Status: F Source: [place] 4:12 PM [facility] REPOSITORY TYPE CODE TESTS RESULT OUT OF REFERENCE UNITS RANGE LAB L501.080 70-110 mg/dL High BEDSIDE GLU 116 Result Comment: MANAGEMENT OF PATIENT CARE PER NURSING PROTOCOL Performed By: #### L501.080 #### [facility] Point of Care [address] [place] [address] ECHOCARDIOGRAM COMPLETE Observed: 07/03/2018 Status: F Source: [place] 1:04 PM [facility] REPOSITORY [facility] Cardiovascular Services [address] [place] [address] Echo Complete W/ Contrast 07/03/18 1031 MR#: [id number] Acct: [id number] Name: NORRIS STEIN Rep #: [id number] : 1940 77 From: Werner Wall MD Attending Dr: Jhon Zamorano MD Status: ADM IN Ordering Dr: Jhon Zamorano MD Date: 07/02/18 Location: [facility] Sex: M C Admitted: 07/02/18 Reason For Study: Afib, Aflutter Procedure This was a 2D Doppler, Color Flow transthoracic echocardiogram. The study was technically difficult. Contrast injection was performed. Exam performed portable in patient room. Left Ventricle Normal size and thickness. The estimated ejection fraction is 50 %. Unable to assess diastolic dysfunction due to arrhythmia. There is mild global hypokinesis of the left ventricle. Right Ventricle Normal size and thickness. Normal systolic function. Atria Normal right atrium. Normal atrial septum. Mitral Valve The mitral valve is structurally normal. No prolapse or stenosis seen. Tricuspid Valve Normal tricuspid valve. Unable to estimate RV systolic pressure/pulmonary artery pressure due to technically difficult study. Aortic Valve Normal aortic valve. Trisinus/trileaflet aortic valve. Pulmonic Valve The pulmonic valve is not well visualized. Great Vessels Normal aortic root. Normal arch. Normal inferior vena cava. Inferior vena cava collapse with sniff. Pericardium/Pleural No pericardial effusion. Medication Definity0.5ml given slow IV push to enhance endocardial definition. MMode/2D Measurements AND Calculations LVIDd: 4.3 cm IVSd: 1.2 cm Ao root diam: 3.1 cm LVIDs: 3.1 cm LVPWd: 1.0 cm RVDd: 3.1 cm FS: 26.3 % LAV(MOD-bp): 31.9 ml LA A4 area: 12.5 cm2 LA dimension(2D): 4.1 cm LAV(MOD-bp) Indexed: 14.7 ml/m2 LAV(MOD-sp2): 36.7 ml LAV(MOD-sp4): 26.1 ml RA A4 area: 13.6 cm2 Doppler Measurements AND Calculations MV E max dot: 79.9 cm/sec Ao V2 max: 116.7 cm/sec LV V1 max: 80.7 cm/sec Ao max P.5 mmHg LV V1 max P.6 mmHg Ao V2 mean: 86.1 cm/sec Ao mean P.3 mmHg Ao V2 VTI: 19.8 cm PA V2 max: 63.4 cm/sec Interpretation Summary Normal size and thickness. The estimated ejection fraction is 50 %. Unable to assess diastolic dysfunction due to arrhythmia. There is mild global hypokinesis of the left ventricle. Unable to estimate RV systolic pressure/pulmonary artery pressure due to technically difficult study. The study was technically difficult. There is no comparison study available. Contrast injection was performed. Ordering Physician: Jhon Zamorano Referring Physician: Saumya Farias Performed By: Trena Bueno, DOROTHY, RVT 07/03/18 1304 Date Werner Wall MD CC: Saumya Farias MD; Jhon Zamorano MD Date Dictated: 07/03/18 1031 Date Transcribed: 07/03/18 1304 Incinerator Plant Supervisor: Signed BEDSIDE GLUCOSE Collected: 07/03/2018 Status: F Source: [facility]AD 12:28 PM [facility] REPOSITORY TYPE CODE TESTS RESULT OUT OF REFERENCE UNITS RANGE LAB L501.080 70-110 mg/dL High BEDSIDE GLU 154 Result Comment: MANAGEMENT OF PATIENT CARE PER NURSING PROTOCOL Performed By: #### L501.080 #### [facility] Point of Care [address] [place], [place] [id number] BEDSIDE GLUCOSE Collected: 07/03/2018 Status: F Source: RAAD 6:39 AM [facility] REPOSITORY TYPE CODE TESTS RESULT OUT OF REFERENCE UNITS RANGE LAB L501.080 70-110 mg/dL High BEDSIDE GLU 112 Result Comment: MANAGEMENT OF PATIENT CARE PER NURSING PROTOCOL Performed By: #### L501.080 #### [facility] Point of Care [address] [place] [address] BASIC METABOLIC Collected: 07/03/2018 Status: F Source: RAAD PROFILE (BMP) 5:08 AM [facility] REPOSITORY TYPE CODE TESTS RESULT OUT OF RANGE REFERENCE UNITS LAB L501.0100 74-106 mg/dL High GLU 125 Result Comment: Fasting Glucose result from 100 to 125 mg/dL suggests IMPAIRED HOMEOSTASIS per A.D.A. criteria. Please note revised GLUCOSE reference range effective 2017. LAB L501.1000 7-18 mg/dL High BUN 25 LAB L501.1100 0.70-1.30 mg/dL High CREAT,SERUM 1.34 Result Comment: The validity of the calculated GFR AND GFRAA in patients over 70 years has not been determined. Clinical correlation is essential. LAB L501.1110 >60 mL/min Low EST GFR 55 Result Comment: Non- GFR Calc LAB L501.1115 >60 mL/min Normal EST GFR - AA 67 Result Comment: GFR Calc LAB L501.1255 ml/min Normal Estimated CRCL 41.43 LAB L501.1300 10-20 RATIO Normal BUN/CRE 18.7 LAB L501.2200 8.5-10 mg/dL Normal .1 CA 8.7 LAB L501.5300 136-14 mmol/L Normal 5 NA 137 LAB L501.5600 3.5-5. mmol/L Normal 1 K 4.7 LAB L501.5900 98-107 mmol/L Normal CL 101 LAB L501.6100 21.0-3 mmol/L Normal 2.0 CO2 31.0 LAB L501.6200 5-15 Normal GAP 5 Performed By: #### L500.2500 #### [facility] [address] [place], [address] CBC W/DIFF, AUTOMATED Collected: 07/03/2018 Status: F Source: [place] 5:08 AM [facility] REPOSITORY TYPE CODE TESTS RESULT OUT OF RANGE REFERENCE UNITS LAB L100.1000 4.4-11.0 K/mm3 Normal WBC 6.8 LAB L100.1200 4.6-6.2 M/mm3 Normal RBC 4.78 LAB L100.1300 13.0-16.5 g/dl Normal HGB 14.1 LAB L100.1400 40-54 % Normal HCT 43.6 LAB L100.1500 80-94 fL Normal MCV 91.2 LAB L100.1600 27.0-32.0 pg Normal MCH 29.5 LAB L100.1700 32-36 g/gl Normal MCHC 32.3 LAB L100.1810 11.6-14.6 % Normal RDW CV 13.8 LAB L100.1820 35.1-43.9 fl High RDW SD 45.5 LAB L100.1900 150-450 K/mm3 Low PLT 138 LAB L100.2000 6.2-12.0 fl Normal MPV 9.7 LAB L100.2100 47-70 % Normal NEUT% 61.5 LAB L100.2200 19-41 % Normal LY% 27.9 LAB L100.2300 0-10 % Normal MONO% 6.8 LAB L100.2400 0-5 % Normal EO% 3.4 LAB L100.2500 0-1 % Normal BASO% 0.3 LAB L100.2550 0.0-0.9 % Normal IM GRAN % 0.100 Result Comment: IG% - Immature Granulocytes (promyelocytes, myelocytes and metamyelocytes) > 1% indicates that a LEFT SHIFT is Present. LAB L100.2620 2.0-7.7 X10 3/uL Normal Absolute Neut 4.2 LAB L100.2720 0.83-4.51 X10 3/ul Normal Absolute Lymph 1.89 Performed By: #### L100.0100 #### [facility] [address] [place], [address] BEDSIDE GLUCOSE Collected: 07/02/2018 Status: F Source: [place] 9:46 PM [facility] REPOSITORY TYPE CODE TESTS RESULT OUT OF REFERENCE UNITS RANGE LAB L501.080 70-110 mg/dL High BEDSIDE GLU 121 Result Comment: MANAGEMENT OF PATIENT CARE PER NURSING PROTOCOL Performed By: #### L501.080 #### [facility] Point of Care [address] [place] [address] HISTORY AND PHYSICAL Observed: 07/02/2018 Status: F Source: [place] EXAM 5:19 PM [facility] REPOSITORY [facility] Medical Records Department [address] [place] [address] History and Physical 07/02/18 1654 MR#: [id number] Acct: [id number] Name: NORRIS STEIN Rep #: [id number] : 1940 77 From: Jhon Zamorano MD PCP: Saumya Farias MD Status: ADM IN Y Location: [place] [id number] ADDENDUM by Jhon Zamorano MD on 07/02/18 at 1719 Code Visit Hold his HCTZ and AMBER because of his creatinine 07/02/18 1719 <Electronically signed by Jhon Zamorano MD> Date Jhon Zamorano MD cc: Saumya Farias MD; Jhon Zamorano MD * Signed Problem List (1) HTN (hypertension) Status: Chronic (2) HLD (hyperlipidemia) Status: Chronic (3) GERD (gastroesophageal reflux disease) Status: Chronic (4) Paroxysmal A-fib Status: Acute History of Present Illness Date of Admission: 07/02/18 Chief Complaint: Palpitations The patient is a 77 year old M with a pmh as above who presents with SOB. He went to his PCP's office today because the SOB has been present for several weeks, and he mentioned that he had been having intermittent palpitations. He had a memorable episode of palpitations several years ago which is when he was started on Metoprolol. An EKG was performed in the the office and he was seen to be in a-fib and was sent to the ER. In the ER he was found to be in a-fib with RVR and he was given a bolus of cardizem 20 mg which caused his rate to drop to the 70's which is where hs stayed. No CP, lightheadedness or dizziness. He does have an elevated creatinine, and he has no previous labs in our system. He was admitted because though his rate is normal, he remains in a-fib and will require further work-up. Past Medical History Past Medical History (Chronic Problems): Chronic Problems HTN (hypertension) (Chronic) HLD (hyperlipidemia) (Chronic) GERD (gastroesophageal reflux disease) (Chronic) Allergies No Known Allergies Allergy (Verified 07/02/18 10:30) Home Medications: Ambulatory Orders Medication Instructions Recorded Surgical History: total hip arthroplasty, total knee arthroplasty Lives: With Family Smoking Status: Never smoker Alcohol: None Drugs: None - *Family History Maternal History Items: High Cholesterol, Heart Disease, Hypertension Review of Systems Constitutional: Denies: Chills, Fever, Weight Change HEENT: Denies: Head Aches, Sinus Congestion, Sinus Drainage Cardiovascular: Reports: Palpitations. Denies: Chest Pain Respiratory: Reports: Shortness of Breath, Shortness of breath upon exertion. Denies: Cough, Shortness of breath at rest, Sputum production Gastrointestinal: Denies: Abdominal Pain, Nausea, Vomiting Genitourinary: Denies: Dysuria Musculoskeletal: Denies: Joint Pain, Joint Tenderness Skin: Denies: Rash, Wounds Neurological: Denies: Numbness, Tingling, Focal weakness Psychiatric: Denies: Anxiety, Depression Hematologic/ Lymphatic: Denies: Easy Bruising, Easy Bleeding VTE Information - Inpt Only VTE Present on Admission: No Patient Problems: Active and Suspected Problems Paroxysmal A-fib (Acute) - Physical Exam General: Alert, Oriented x3, Cooperative, No apparent distress HEENT: Atraumatic, PERRLA, EOMI, Normocephalic Oral: Moist Mucosa Neck: Supple, No JVD Lungs: Clear to auscultation, Normal air movement, No rhonchi, No wheeze, No rales Cardiovascular: Regular rate, Normal S1, Normal S2, No murmurs, - - irregular rhythm Abdomen: Soft, Non Tender, Non-Distended, No Hepato-splenomegaly Extremities: Capillary Refill Less than 3 Seconds, Edema Skin: No rashes, No breakdown Neurological: Neuro grossly intact, Sensory exam intact to light touch and pain Psych/Mental Status: Normal Affect, Appropriate Vital Signs Temp Pulse Resp BP Pulse Ox 98.5 F 81 20 H 146/85 H 97 07/02/18 14:46 07/02/18 14:46 07/02/18 14:46 07/02/18 14:46 07/02/18 14:46 Oxygen Delivery Method Room Air Weight: 238 lb 9.6 oz Body Mass Index (BMI) 39.6 Laboratory Tests Past 24 Hrs WBC 8.5 RBC 4.98 Assessment/Plan All Active Problems Paroxysmal A-fib (Acute) 1. Paroxysmal a-fib/HTN/HLD - even though this is his first diagnosis of a-fib, given his past h/o intermittent palpitations in the distant past and recently this makes it likely to be paroxysmal - Echo is pending - Increased his metoprolol to 50 mg BID and will monitor - Given his edema, which has been present for a few years, on and off and the SOB, I am concerned that he has heart failure, will wait for the echo to confirm - May need ischemic work-up - Initial troponin is negative and EKG with a-fib - Will continue with his home BP medications - CHADS2 is 3 and he will likely need anticoagulation prior to discharge - C/w asa and lipitor 2. DM2 - will hold his metformin - SSI and accuchecks 3. GERD - stable - C/w his home PPI DVT: Heparin Diet: Cardiac Code Visit Inpatient E AND M: [id number] Init Hosp L3 07/02/18 1717 <Electronically signed by Jhon Zamorano MD> Date Jhon Zamorano MD Cosigner Signature: Date (if applicable) CC: Saumya Farias MD; Jhon Zamorano MD Signed CBC W/DIFF, AUTOMATED Collected: 07/02/2018 Status: F Source: RAAD 2:05 PM [facility] REPOSITORY TYPE CODE TESTS RESULT OUT OF RANGE REFERENCE UNITS LAB L100.1000 4.4-11.0 K/mm3 Normal WBC 7.9 LAB L100.1200 4.6-6.2 M/mm3 Normal RBC 4.79 LAB L100.1300 13.0-16.5 g/dl Normal HGB 14.1 LAB L100.1400 40-54 % Normal HCT 43.3 LAB L100.1500 80-94 fL Normal MCV 90.4 LAB L100.1600 27.0-32.0 pg Normal MCH 29.4 LAB L100.1700 32-36 g/gl Normal MCHC 32.6 LAB L100.1810 11.6-14.6 % Normal RDW CV 13.5 LAB L100.1820 35.1-43.9 fl High RDW SD 44.5 LAB L100.1900 150-450 K/mm3 Low PLT 137 LAB L100.2000 6.2-12.0 fl Normal MPV 9.6 LAB L100.2100 47-70 % High NEUT% 70.9 LAB L100.2200 19-41 % Normal LY% 21.0 LAB L100.2300 0-10 % Normal MONO% 6.2 LAB L100.2400 0-5 % Normal EO% 1.5 LAB L100.2500 0-1 % Normal BASO% 0.3 LAB L100.2550 0.0-0.9 % Normal IM GRAN % 0.100 Result Comment: IG% - Immature Granulocytes (promyelocytes, myelocytes and metamyelocytes) > 1% indicates that a LEFT SHIFT is Present. LAB L100.2620 2.0-7.7 X10 3/uL Normal Absolute Neut 5.6 LAB L100.2720 0.83-4.51 X10 3/ul Normal Absolute Lymph 1.65 Performed By: #### L100.0100 #### [facility] [address] [place], [address] EMERGENCY DEPARTMENT Observed: 07/02/2018 Status: F Source: [place] SUMMARY 12:31 PM [facility] REPOSITORY [facility] Medical Records Department [address] [place] [address] Emergency Department Summary 07/02/18 1228 MR#: [id number] Acct: [id number] Name: NORRIS STEIN Rep #: [id number] : 1940 77 From: Elroy Zhong DO PCP: Saumya Farias MD Status: REG ER - ER Visit Summary Date of Service: 07/02/18 Chief Complaint: [Shortness of breath] History of Present Illness: The patient is a 77 M [presents to the emergency department with complaint of shortness of breath that started a few weeks ago. Patient was seen by primary care physician today and sent to the ER for further evaluation. Patient has been feeling intermittent episodes of palpitations and racing heart. Patient denies any chest pain. Patient thinks he is gained about 14 pounds in the last couple of weeks. Patient denies any fever or cough. Patient does have a history of diabetes, hypertension, high cholesterol, and sleep apnea.] Physical Examination: [HEENT-PERRLA, EOMI. Cranial nerves II through XII grossly intact. TMs clear. Mucous membranes moist. No adenopathy. Cardiovascular- No murmurs auscultated. Heart tachycardic and irregular Lungs-clear to auscultation, chest wall stable without crepitus or subcu emphysema Abdomen-normoactive bowel sounds, soft, nontender, no rebound or rigidity, no peritoneal signs. Extremities-intact 4, normal range of motion, normal pulses, atraumatic] Test Results: [EKG obtained on arrival showed A. fib flutter with a rate of 144. CBC with differential showed a white count of 8.5, hemoglobin 14.6, hematocrit 45, platelets 145. Chemistries unremarkable. INR was 1.1. Troponin less than 0.015. BNP was 127. Chest x-ray showed mild pulmonary congestion otherwise nothing acute.] Emergency Department Course and Treatment: [Patient was given Cardizem 20 mg IV bolus and his heart rate now into the 70s however he continues to be in atrial fibrillation] Treatment Plan: [Admit] Disposition: [Admit] Impression: [Atrial fibrillation with rapid ventricular response- new onset] This note was generated with wooju dictation software. It may contain incorrect words, spelling, and punctuation that were not noted in review of the chart prior to signing ED Disposition - Plan for ED Patient: Chief Complaint: Shortness of Breath Referrals: Saumya Farias MD [Primary Care Provider] - What to do if you have Problems For any increased pain, shortness of breath, bleeding, nausea or vomiting, chest pain, or any unexpected problems, contact your Primary Care Provider. Call [facility] ([phone]) or report to the closest Emergency Room. Call 911 if necessary. 07/02/18 1231 <Electronically signed by Elroy Zhong DO> Date Elroy Zhong DO Cosigner Signature (If Indicated): Date CC: Saumya Farias MD CHEST 1 VIEW Observed: 07/02/2018 Status: F Source: [place] (PORTABLE) 10:48 AM [facility] REPOSITORY [facility] Imaging Services [address] [place] [address] Chest 1 View (Portable) MR#: [id number] Acct: [id number] Name: NORRIS STEIN Rep #: [id number] : 1940 M 77 From: Antonio Corrigan MD PCP: Saumya Farias MD Status: REG ER Study: Chest 1 View (Portable) Date of Exam: 07/02/18 Exam# [id number] Ordering Dr: Elroy Zhong DO STUDY: X-RAY CHEST REASON FOR EXAM: Male, 77 years old. Shortness of breath with wheezing. TECHNIQUE: Portable upright chest COMPARISON: None. FINDINGS: There is mild generalized pulmonary hyperlucency in particular at the apices suggesting underlying COPD/emphysema. Mild coarsening of the pulmonary interstitium, chronic. No acute infiltrate, effusion or pneumothorax. No suspicious focal pulmonary lesion. No significant cardiomegaly. Normal mediastinal silhouette, rishabh and pleural margins. No acute osseous or upper abdominal process. RAD/Chest 1 View (Portable) IMPRESSION: Suspicion of underlying COPD/emphysema without acute superimposed cardiopulmonary process. There is no evidence of asymmetric air trapping. There are no convincing features of acute pneumonia. Electronically Signed: Antonio Corrigan MD at 12:18 EST Tel , Service support , CC: Saumya Farias MD; Elroy Zhong DO Incinerator Plant Supervisor: Signed CBC W/DIFF, AUTOMATED Collected: 07/02/2018 Status: F Source: RAAD 10:40 AM [facility] REPOSITORY TYPE CODE TESTS RESULT OUT OF RANGE REFERENCE UNITS LAB L100.1000 4.4-11.0 K/mm3 Normal WBC 8.5 LAB L100.1200 4.6-6.2 M/mm3 Normal RBC 4.98 LAB L100.1300 13.0-16.5 g/dl Normal HGB 14.6 LAB L100.1400 40-54 % Normal HCT 45.2 LAB L100.1500 80-94 fL Normal MCV 90.8 LAB L100.1600 27.0-32.0 pg Normal MCH 29.3 LAB L100.1700 32-36 g/gl Normal MCHC 32.3 LAB L100.1810 11.6-14.6 % Normal RDW CV 13.7 LAB L100.1820 35.1-43.9 fl High RDW SD 44.6 LAB L100.1900 150-450 K/mm3 Low PLT 145 LAB L100.2000 6.2-12.0 fl Normal MPV 9.8 LAB L100.2100 47-70 % High NEUT% 77.3 LAB L100.2200 19-41 % Low LY% 14.4 LAB L100.2300 0-10 % Normal MONO% 6.2 LAB L100.2400 0-5 % Normal EO% 1.6 LAB L100.2500 0-1 % Normal BASO% 0.4 LAB L100.2550 0.0-0.9 % Normal IM GRAN % 0.100 Result Comment: IG% - Immature Granulocytes (promyelocytes, myelocytes and metamyelocytes) > 1% indicates that a LEFT SHIFT is Present. LAB L100.2620 2.0-7.7 X10 3/uL Normal Absolute Neut 6.6 LAB L100.2720 0.83-4.51 X10 3/ul Normal Absolute Lymph 1.23 Performed By: #### L100.0100 #### [facility] [address] [facility]. [place], [place], [id number] BASIC METABOLIC Collected: 07/02/2018 Status: F Source: [place] PROFILE (BMP) 10:40 AM [facility] REPOSITORY TYPE CODE TESTS RESULT OUT OF RANGE REFERENCE UNITS LAB L501.0100 74-106 mg/dL High GLU 120 Result Comment: Fasting Glucose result from 100 to 125 mg/dL suggests IMPAIRED HOMEOSTASIS per A.D.A. criteria. Please note revised GLUCOSE reference range effective 2017. LAB L501.1000 7-18 mg/dL High BUN 27 LAB L501.1100 0.70-1.30 mg/dL High CREAT,SERUM 1.54 Result Comment: The validity of the calculated GFR AND GFRAA in patients over 70 years has not been determined. Clinical correlation is essential. LAB L501.1110 >60 mL/min Low EST GFR 47 Result Comment: Non- GFR Calc LAB L501.1115 >60 mL/min Low EST GFR - AA 57 Result Comment: GFR Calc LAB L501.1255 ml/min Normal Estimated CRCL 36.05 LAB L501.1300 10-20 RATIO Normal BUN/CRE 17.5 LAB L501.2200 8.5-10 mg/dL Normal .1 CA 9.0 LAB L501.5300 136-14 mmol/L Normal 5 NA 140 LAB L501.5600 3.5-5. mmol/L Normal 1 K 4.7 Result Comment: Slight Hemolysis, Result may be falsely increased. LAB L501.5900 98-107 mmol/L Normal CL 103 LAB L501.6100 21.0-32.0 mmol/L Normal CO2 31.0 LAB L501.6200 5-15 Normal 6 GAP Performed By: #### L500.2500, L501.4010 #### [facility] [address] [facility]. [place], [place], [id number] TROPONIN-I Collected: 07/02/2018 Status: F Source: [place] 10:40 AM [facility] REPOSITORY TYPE CODE TESTS RESULT OUT OF RANGE REFERENCE UNITS LAB L501.4010 <0.045 ng/mL Normal < 0.015 TROPONIN-I Result Comment: TROPONIN-I EXPECTED VALUES <0.045 Negative 0.045 - 0.590 Consistent with Cardiac Damage > OR = 0.600 Critical Value Not every elevated troponin is indicative of CA. These values should be used with clinical judgement in examining the patient's clinical picture for diagnosis. To establish a diagnosis of CA versus myocardial injury, there must be a demonstrated rise and/or fall in the troponin values, in addition to ischemic symptoms, EKG changes, new regional wall motion abnormality, and/or angiographical evidence. PLEASE NOTE: REFERENCE RANGES EDITED 17 Performed By: #### L500.2500, L501.4010 #### [facility] [address] [facility]. [place], [place], [address] PROTHROMBIN TIME W/INR Collected: 07/02/2018 Status: F Source: [place] 10:40 AM [facility] REPOSITORY TYPE CODE TESTS RESULT OUT OF RANGE REFERENCE UNITS LAB L300.4150 11.7-14.9 SECONDS Normal PROTIME 13.9 LAB L300.4200 Normal INR 1.1 Performed By: #### L300.3900, L300.4310 #### [facility] [address] [facility] [place], [address] PARTIAL THROMBOPLAST Collected: 07/02/2018 Status: F Source: RAAD TIME 10:40 AM [facility] REPOSITORY TYPE CODE TESTS RESULT OUT OF RANGE REFERENCE UNITS LAB L300.4310 24.1-36.2 Seconds Normal PTT 28.6 Performed By: #### L300.3900, L300.4310 #### [facility] [address] [place], [address] BNP,B-TYPE NATRIURETIC Collected: 07/02/2018 Status: F Source: RAAD PEPTIDE 10:40 AM [facility] REPOSITORY TYPE CODE TESTS RESULT OUT OF RANGE REFERENCE UNITS LAB L503.6620 0-100 pg/mL High B-TYPE 125.0 ELÍAS PEP Performed By: #### L503.6620 #### [facility] [address] [place], [address] THYROID STIM HORMONE Collected: 07/02/2018 Status: F Source: RAAD (TSH) 10:40 AM [facility] REPOSITORY TYPE CODE TESTS RESULT OUT OF RANGE REFERENCE UNITS LAB L501.9520 0.358-3.74 uIU/mL High TSH 5.16 Performed By: #### L501.9520 #### [facility] [address] [place], [address] ECG COMPLETE W Observed: 07/02/2018 Status: F Source: [facility] 10:00 AM [facility] REPOSITORY NAME : NORRIS STEIN PID : [id number] : 1940 Gender : Male Race : ORD : [id number] Procedure Date : Jul 02 2018 10:00:23 Edit Date : Jul 03 2018 16:36:48 Diagnosis:ATRIAL FLUTTER WITH VARIABLE A-V BLOCK ST ELEVATION CONSIDER INFERIOR INJURY OR ACUTE INFARCT ACUTE CA / STEMI ABNORMAL ECG Confirmed by SANFORD MADRIGAL D.O. ([id number]) on 07/03/2018 4:36:20 PM Ventricular Rate : 133 BPM Atrial Rate : 293 BPM QRS Duration : 90 ms Q-T Interval : 356 ms QTC Calculation(Bezet) : 529 ms R Brea : 66 degrees T Brea : 76 degrees Test Reason : Location : 185 : [facility] Overread By : SANFORD MADRIGAL D.O. Edited By : SANFORD MADRIGAL D.O. Referred By : ANAM STRICKLAND Acquired by : BOBBY PINEDA Observed: 07/02/2018 Status: COMPLETED Source: [place] 9:29 AM [facility] REPOSITORY HNO ID: [id number] Author: Anam (Dyeing Machine Feeder) Em Service: (none) Author Type: Nurse Practitioner Type: Progress Notes Filed: 07/02/2018 10:21 AM Note Text: Chief Complaint Patient presents with: Breathing Problem HPI Norris Stein is a 77 year old male who presents here today for Above Complaints. Increasing SOB and wheezing for the past month, worse in the last week. Worse with exertion and any activity. Denies pain, chest pain, cough, fever, or chills. Sleeps better in the recliner with head elevated. When in bed, he uses 2 pillows to elevated his head. Increased edema in BLE throughout the day which relieved with elevation. No sore throat, ear pain. Patient is tachycardic today in office. Last 2 Encounter Wt Readings: Date: Wt: 07/02/2018 110.7 kg (244 lb) 05/01/2018 108.9 kg (240 lb) Past medical history, appointments, medications, allergies reviewed. Previous Medical History PAST MEDICAL HISTORY Diagnosis Date - DM (diabetes mellitus) (HCC) - Essential hypertension, benign - Other and unspecified hyperlipidemia - Other specified family circumstances Previous Surgical History PAST SURGICAL HISTORY Procedure Laterality Date - COLONOSCOP W/ OR W/O [facility] SPEC 04/08/15 Colonoscopy Family History No family history on file. Patient Allergies ALLERGIES No Known Allergies Current Medications Current Outpatient Prescriptions on File Prior to Visit: codeine-guaiFENesin (ROBITUSSIN AC) 10-100 mg/5 mL syrup Take 5 mL by mouth three times daily as needed for Cough for up to 30 days. omeprazole (PRILOSEC) 20 mg capsule Take 1 capsule by mouth once daily. atorvastatin (LIPITOR) 10 mg tablet Take 1 tablet by mouth daily at bedtime. quinapril (ACCUPRIL) 20 mg tablet Take 1 tablet by mouth twice daily. hydroCHLOROthiazide (HYDRODIURIL, ESIDRIX) 25 mg tablet Take 1 tablet by mouth once daily. metoprolol tartrate, short acting, (LOPRESSOR) 25 mg tablet Take 1 tablet by mouth twice daily. metFORMIN (GLUCOPHAGE) 500 mg tablet Take 1 tablet by mouth twice daily with meals. . ASPIRIN 81 MG ORAL TAB Take one(1) tablet daily. No current facility-administered medications on file prior to visit. Social History Social History Marital status: Spouse name: Years of education: Number of children: Social History Main Topics Smoking status: Never Smoker Smokeless tobacco: Never Used Alcohol use: Yes Comment: occasional sip of wine Drug use: No REVIEW OF SYSTEMS: as above ? Reviewed relevant PMHx, PSHx, Social Hx, current medications and allergies. EXAM: BP 139/103 Pulse (!) 146 Temp 36.7 ?C (98.1 ?F) (Tympanic) Wt 110.7 kg (244 lb) SpO2 96% BMI 39.99 kg/m? General Appearance: Well appearing, alert, in no acute distress, well-hydrated, well nourished. and Obese. Nose/Sinuses: Nares normal, septum midline, mucosa normal, no drainage or sinus tenderness. Oropharynx: Lips, mucosa, and tongue normal, teeth and gums normal, oropharynx normal. Neck: Supple, no adenopathy; thyroid symmetric, normal size, no bruits. Lungs: negative findings: chest symmetric with normal A/P diameter, no chest wall tenderness and lungs clear to auscultation positive findings: audible wheezing when laying flat for EKG, bronchial breath sounds shortness of breath: Upon exertion. Heart: Positive findings: tachycardia, no murmur noted. Abdomen: Abdomen soft, non-tender. Bowel sounds normal. No masses, organomegaly. Extremities: Edema: +2 BLE. Peripheral Pulses: Capillary refill <2secs, weak radial pulses. Health Maintenance List BP CONTROLLED (<130/80) due on 1960 DTAP,TDAP,TD(2 - Td) due on 06/25/2017 STATIN MED ADHERENCE due on 07/06/2018 DIABETES MED ADHERENCE due on 07/06/2018 URINE ALBUMIN:CREATININE RATIO due on 08/07/2018 DIABETIC FOOT EXAM due on 08/07/2018 HBA1C due on 08/08/2018 DILATED RETINAL EXAM due on 08/29/2018 LDL CHOLESTEROL due on 02/05/2019 ANNUAL PCP TEAM CHRONIC DISEASE VISIT due on 05/01/2019 COLORECTAL CANCER SCREENING,SEE MODIFIER due on 04/08/2025 ADULT PREVNAR-13 Completed INFLUENZA Completed PNEUMOVAX AGE 65 AND OVER WITH 5YR LOOKBACK Completed Data reviewed Component Latest Ref Rng AND Units 02/05/2018 Protein, Total 6.3 - 8.0 g/dL 6.1 (L) Albumin 3.9 - 4.9 g/dL 4.3 Calcium 8.5 - 10.2 mg/dL 9.4 Bilirubin, Total 0.2 - 1.3 mg/dL 0.4 Alkaline Phosphatase 36 - 108 U/L 60 AST 14 - 40 U/L 22 Glucose 74 - 99 mg/dL 126 (H) BUN 9 - 24 mg/dL 29 (H) Creatinine 0.73 - 1.22 mg/dL 1.43 (H) Sodium 136 - 144 mmol/L 137 Potassium 3.7 - 5.1 mmol/L 4.3 Chloride 97 - 105 mmol/L 99 CO2 22 - 30 mmol/L 28 Anion Gap 9 - 18 mmol/L 10 ALT 10 - 54 U/L 19 eGFR- 58 eGFR-All Other Races . 48 Cholesterol, Total <200 mg/dL 154 Triglyceride <150 mg/dL 134 HDL Cholesterol >39 mg/dL 33 (L) LDL Cholesterol <100 mg/dL 94 Non HDL Cholesterol <130 mg/dL 121 Fasting Time hrs 10 VLDL Cholesterol <30 mg/dL 27 TC:HDL Ratio <5.10 4.67 LDL:HDL Ratio <2.54 2.85 (H) Hemoglobin A1C 4.3 - 5.6 % 6.7 (H) Estimated Average Glucose mg/dL 146 ASSESSMENT/PLAN: 1. Orthopnea - ICD9: 786.02, ICD10: R06.01 (primary diagnosis) 2. LOCKWOOD (dyspnea on exertion) - ICD9: 786.09, ICD10: R06.09 - ECG COMPLETE W INTERPRETATION 3. Leg swelling - ICD9: 729.81, ICD10: M79.89 - EKG today in office showed atrial flutter with ST elevation in leads 2, 3, V6. 4 baby aspirin were given to patient. Squad was called, report called to [facility]. Patient transported in stable condition. Anam Strickland APRN.GIG TENDER CNOV Observed: 07/02/2018 Status: COMPLETED Source: [place] 9:20 AM [facility] REPOSITORY Office Visit ([facility]AMPWS) NORRIS STEIN ([id number]) 1940 M Date Time Provider Department 07/02/18 9:20 AM ANAM STRICKLAND ([facility]) [facility] During your visit today, we recorded the following information about you: Temperature Pulse Blood pressure Weight 98.1 degrees 146/minute 139/103 110.7 kg Anam Strickland APRN.AUSTEN 07/02/2018 10:21 AM Signed Chief Complaint Patient presents with: Breathing Problem HPI Norris Stein is a 77 year old male who presents here today for Above Complaints. Increasing SOB and wheezing for the past month, worse in the last week. Worse with exertion and any activity. Denies pain, chest pain, cough, fever, or chills. Sleeps better in the recliner with head elevated. When in bed, he uses 2 pillows to elevated his head. Increased edema in BLE throughout the day which relieved with elevation. No sore throat, ear pain. Patient is tachycardic today in office. Last 2 Encounter Wt Readings: Date: Wt: 07/02/2018 110.7 kg (244 lb) 05/01/2018 108.9 kg (240 lb) Past medical history, appointments, medications, allergies reviewed. Previous Medical History PAST MEDICAL HISTORY Diagnosis Date - DM (diabetes mellitus) (HCC) - Essential hypertension, benign - Other and unspecified hyperlipidemia - Other specified family circumstances Previous Surgical History PAST SURGICAL HISTORY Procedure Laterality Date - COLONOSCOP W/ OR W/O [facility] SPEC 04/08/15 Colonoscopy Family History No family history on file. Patient Allergies ALLERGIES No Known Allergies Current Medications Current Outpatient Prescriptions on File Prior to Visit: codeine-guaiFENesin (ROBITUSSIN AC) 10-100 mg/5 mL syrup Take 5 mL by mouth three times daily as needed for Cough for up to 30 days. omeprazole (PRILOSEC) 20 mg capsule Take 1 capsule by mouth once daily. atorvastatin (LIPITOR) 10 mg tablet Take 1 tablet by mouth daily at bedtime. quinapril (ACCUPRIL) 20 mg tablet Take 1 tablet by mouth twice daily. hydroCHLOROthiazide (HYDRODIURIL, ESIDRIX) 25 mg tablet Take 1 tablet by mouth once daily. metoprolol tartrate, short acting, (LOPRESSOR) 25 mg tablet Take 1 tablet by mouth twice daily. metFORMIN (GLUCOPHAGE) 500 mg tablet Take 1 tablet by mouth twice daily with meals. . ASPIRIN 81 MG ORAL TAB Take one(1) tablet daily. No current facility-administered medications on file prior to visit. Social History Social History Marital status: Spouse name: Years of education: Number of children: Social History Main Topics Smoking status: Never Smoker Smokeless tobacco: Never Used Alcohol use: Yes Comment: occasional sip of wine Drug use: No REVIEW OF SYSTEMS: as above ? Reviewed relevant PMHx, PSHx, Social Hx, current medications and allergies. EXAM: BP 139/103 Pulse (!) 146 Temp 36.7 ?C (98.1 ?F) (Tympanic) Wt 110.7 kg (244 lb) SpO2 96% BMI 39.99 kg/m? General Appearance: Well appearing, alert, in no acute distress, well-hydrated, well nourished. and Obese. Nose/Sinuses: Nares normal, septum midline, mucosa normal, no drainage or sinus tenderness. Oropharynx: Lips, mucosa, and tongue normal, teeth and gums normal, oropharynx normal. Neck: Supple, no adenopathy; thyroid symmetric, normal size, no bruits. Lungs: negative findings: chest symmetric with normal A/P diameter, no chest wall tenderness and lungs clear to auscultation positive findings: audible wheezing when laying flat for EKG, bronchial breath sounds shortness of breath: Upon exertion. Heart: Positive findings: tachycardia, no murmur noted. Abdomen: Abdomen soft, non-tender. Bowel sounds normal. No masses, organomegaly. Extremities: Edema: +2 BLE. Peripheral Pulses: Capillary refill <2secs, weak radial pulses. Health Maintenance List BP CONTROLLED (<130/80) due on 1960 DTAP,TDAP,TD(2 - Td) due on 06/25/2017 STATIN MED ADHERENCE due on 07/06/2018 DIABETES MED ADHERENCE due on 07/06/2018 URINE ALBUMIN:CREATININE RATIO due on 08/07/2018 DIABETIC FOOT EXAM due on 08/07/2018 HBA1C due on 08/08/2018 DILATED RETINAL EXAM due on 08/29/2018 LDL CHOLESTEROL due on 02/05/2019 ANNUAL PCP TEAM CHRONIC DISEASE VISIT due on 05/01/2019 COLORECTAL CANCER SCREENING,SEE MODIFIER due on 04/08/2025 ADULT PREVNAR-13 Completed INFLUENZA Completed PNEUMOVAX AGE 65 AND OVER WITH 5YR LOOKBACK Completed Data reviewed Component Latest Ref Rng AND Units 02/05/2018 Protein, Total 6.3 - 8.0 g/dL 6.1 (L) Albumin 3.9 - 4.9 g/dL 4.3 Calcium 8.5 - 10.2 mg/dL 9.4 Bilirubin, Total 0.2 - 1.3 mg/dL 0.4 Alkaline Phosphatase 36 - 108 U/L 60 AST 14 - 40 U/L 22 Glucose 74 - 99 mg/dL 126 (H) BUN 9 - 24 mg/dL 29 (H) Creatinine 0.73 - 1.22 mg/dL 1.43 (H) Sodium 136 - 144 mmol/L 137 Potassium 3.7 - 5.1 mmol/L 4.3 Chloride 97 - 105 mmol/L 99 CO2 22 - 30 mmol/L 28 Anion Gap 9 - 18 mmol/L 10 ALT 10 - 54 U/L 19 eGFR- 58 eGFR-All Other Races . 48 Cholesterol, Total <200 mg/dL 154 Triglyceride <150 mg/dL 134 HDL Cholesterol >39 mg/dL 33 (L) LDL Cholesterol <100 mg/dL 94 Non HDL Cholesterol <130 mg/dL 121 Fasting Time hrs 10 VLDL Cholesterol <30 mg/dL 27 TC:HDL Ratio <5.10 4.67 LDL:HDL Ratio <2.54 2.85 (H) Hemoglobin A1C 4.3 - 5.6 % 6.7 (H) Estimated Average Glucose mg/dL 146 ASSESSMENT/PLAN: 1. Orthopnea - ICD9: 786.02, ICD10: R06.01 (primary diagnosis) 2. LOCKWOOD (dyspnea on exertion) - ICD9: 786.09, ICD10: R06.09 - ECG COMPLETE W INTERPRETATION 3. Leg swelling - ICD9: 729.81, ICD10: M79.89 - EKG today in office showed atrial flutter with ST elevation in leads 2, 3, V6. 4 baby aspirin were given to patient. Squad was called, report called to [facility]. Patient transported in stable condition. Anam Strickland APRN.AUSTEN Referring Provider: SELF [[id number]] Allergies As of Date: 07/02/2018 (No Known Allergies) Date Reviewed: 07/02/2018 Reviewed by: Analisa Pineda Welfare Project Manager - Fully Assessed Reason for Visit: Breathing Problem [17] Primary Visit Diagnosis:Orthopnea [R06.01] Other Visit Diagnoses:LOCKWOOD (dyspnea on exertion) [R06.09] Leg swelling [M79.89] Order(s):ECG COMPLETE W INTERPRETATION [ECG01] Order #: [id number] FUTURE Prescriptions as of 07/02/2018 Sig: CODEINE 10 MG-GUAIFENESIN 100* Take 5 mL by mouth three time* OMEPRAZOLE 20 MG CAPSULE,AKIRA* Take 1 capsule by mouth once * ATORVASTATIN 10 MG TABLET Take 1 tablet by mouth daily * QUINAPRIL 20 MG TABLET Take 1 tablet by mouth twice * HYDROCHLOROTHIAZIDE 25 MG TAB* Take 1 tablet by mouth once d* METOPROLOL TARTRATE 25 MG TAB* Take 1 tablet by mouth twice * METFORMIN 500 MG TABLET Take 1 tablet by mouth twice * * ASPIRIN 81 MG TABLET Take one(1) tablet daily. Problem List As Of Date 07/02/2018 Noted Resolved OBESITY NOS [E66.9] INVALID FOR* BENIGN HYPERTENSION [I10] INVALID FOR* Hyperlipidemia [E78.5] INVALID FOR* IMPOTENCE, ORGANIC ORIGN [N52.9] INVALID FOR* IMPAIRED FASTING GLUCOSE [R73.01] INVALID FOR* Bullous pemphigoid [L12.0] INVALID FOR* Type 2 diabetes mellitus without complication, *INVALID FOR* Encounter Status:Closed by ANAM STRICKLAND CNP on 07/02/18 Observed: 05/01/2018 Status: F Source: [place] URINE CULTURE 8:41 AM [facility] [place] REPOSITORY Sp. 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 No further workup. --> ABNORMAL ALERT 50,000 - <100,000 CFU/ml --> ABNORMAL ALERT Lactose negative gram negative bacilli --> ABNORMAL ALERT Insignificant colony count. No further workup. --> ABNORMAL ALERT Performed By: #### URCUL #### [facility] [address] [place], [place] [address] PROGRESS Observed: 05/01/2018 Status: COMPLETED Source: [place] 8:25 AM [facility] REPOSITORY HNO ID: [id number] Author: Anam Strickland Service: (none) Author Type: Nurse Practitioner Type: Progress Notes Filed: 05/01/2018 8:49 AM Note Text: Chief Complaint Patient presents with: UTI: x 4 days - burning with urination - taking cystek - no back pain HPI Norris Stein is a 77 year old male who presents here today for Above Complaints. patient presents to the office today with complaints of dysuria. Duration has been approximate 4 days. Denies any current lower back pain. no visible blood in his urine. Did previously have some urinary frequency but that has subsided. No episodes of incontinence. No fevers or chills. Is taking an [id number] Cystek from a local pharmacy. Does have a prior history of UTIs. Past medical history, appointments, medications, allergies reviewed. Previous Medical History PAST MEDICAL HISTORY Diagnosis Date - DM (diabetes mellitus) (HCC) - Essential hypertension, benign - Other and unspecified hyperlipidemia - Other specified family circumstances Previous Surgical History PAST SURGICAL HISTORY Procedure Laterality Date - COLONOSCOP W/ OR W/O [facility] SPEC 04/08/15 Colonoscopy Family History No family history on file. Patient Allergies ALLERGIES No Known Allergies Current Medications Current Outpatient Prescriptions on File Prior to Visit: codeine-guaiFENesin (ROBITUSSIN AC) 10-100 mg/5 mL syrup Take 5 mL by mouth three times daily as needed for Cough for up to 30 days. omeprazole (PRILOSEC) 20 mg capsule Take 1 capsule by mouth once daily. atorvastatin (LIPITOR) 10 mg tablet Take 1 tablet by mouth daily at bedtime. quinapril (ACCUPRIL) 20 mg tablet Take 1 tablet by mouth twice daily. hydroCHLOROthiazide (HYDRODIURIL, ESIDRIX) 25 mg tablet Take 1 tablet by mouth once daily. metoprolol tartrate, short acting, (LOPRESSOR) 25 mg tablet Take 1 tablet by mouth twice daily. metFORMIN (GLUCOPHAGE) 500 mg tablet Take 1 tablet by mouth twice daily with meals. . ASPIRIN 81 MG ORAL TAB Take one(1) tablet daily. No current facility-administered medications on file prior to visit. Social History Social History Marital status: Spouse name: Years of education: Number of children: Social History Main Topics Smoking status: Never Smoker Smokeless tobacco: Never Used Alcohol use: Yes Comment: occasional sip of wine Drug use: No REVIEW OF SYSTEMS: as above ? Reviewed relevant PMHx, PSHx, Social Hx, current medications and allergies. EXAM: BP 112/80 Pulse 60 Temp 36.8 ?C (98.3 ?F) (Tympanic) Wt 108.9 kg (240 lb) BMI 39.33 kg/m? General Appearance: Well appearing, alert, in no acute distress, well-hydrated, well nourished.. Lungs: Lungs clear to auscultation. No wheezing, rhonchi, rales. Heart: RRR without murmur, gallop, or rubs. No ectopy. Abdomen: Normal abdominal exam, Abdomen soft, non-tender. Bowel sounds normal. No masses, organomegaly. Health Maintenance List DTAP,TDAP,TD(2 - Td) due on 06/25/2017 STATIN MED ADHERENCE due on 05/06/2018 DIABETES MED ADHERENCE due on 05/06/2018 URINE ALBUMIN:CREATININE RATIO due on 08/07/2018 DIABETIC FOOT EXAM due on 08/07/2018 HBA1C due on 08/08/2018 DILATED RETINAL EXAM due on 08/29/2018 LDL CHOLESTEROL due on 02/05/2019 ANNUAL PCP TEAM CHRONIC DISEASE VISIT due on 02/05/2019 BP CONTROLLED (<130/80) due on 02/05/2019 COLORECTAL CANCER SCREENING,SEE MODIFIER due on 04/08/2025 ADULT PREVNAR-13 Completed INFLUENZA Completed PNEUMOVAX AGE 65 AND OVER WITH 5YR LOOKBACK Completed Data reviewed Component Latest Ref Rng AND Units 02/05/2018 Protein, Total 6.3 - 8.0 g/dL 6.1 (L) Albumin 3.9 - 4.9 g/dL 4.3 Calcium 8.5 - 10.2 mg/dL 9.4 Bilirubin, Total 0.2 - 1.3 mg/dL 0.4 Alkaline Phosphatase 36 - 108 U/L 60 AST 14 - 40 U/L 22 Glucose 74 - 99 mg/dL 126 (H) BUN 9 - 24 mg/dL 29 (H) Creatinine 0.73 - 1.22 mg/dL 1.43 (H) Sodium 136 - 144 mmol/L 137 Potassium 3.7 - 5.1 mmol/L 4.3 Chloride 97 - 105 mmol/L 99 CO2 22 - 30 mmol/L 28 Anion Gap 9 - 18 mmol/L 10 ALT 10 - 54 U/L 19 eGFR- 58 eGFR-All Other Races . 48 Cholesterol, Total <200 mg/dL 154 Triglyceride <150 mg/dL 134 HDL Cholesterol >39 mg/dL 33 (L) LDL Cholesterol <100 mg/dL 94 Non HDL Cholesterol <130 mg/dL 121 Fasting Time hrs 10 VLDL Cholesterol <30 mg/dL 27 TC:HDL Ratio <5.10 4.67 LDL:HDL Ratio <2.54 2.85 (H) Hemoglobin A1C 4.3 - 5.6 % 6.7 (H) Estimated Average Glucose mg/dL 146 Component Latest Ref Rng AND Units 05/01/2018 Glucose, Urine Neg mg/dL neg Bilirubin, Urine Neg neg Ketones, Urine Neg neg Specific [place], Ur 1.005 - 1.030 1.010 Hemoglobin/Blood,Ur Neg neg pH, Urine 4.5 - 8.0 6.5 Protein, Urine Neg mg/dL trace Urobilinogen, Urine Normal (<1.1) EU normal Nitrites Neg neg Leukocytes Neg moderate Color/Appearance comment: pale yellow Quality Check yes/no Yes ASSESSMENT/PLAN: 1. Dysuria - ICD9: 788.1, ICD10: R30.0 acute - UA positive for yelitza esterase - Send urine for culture - Begin treatment with Bactrim DS BID for 3 days - Patient education for prevention given - UA DIP B/O - URINE CULTURE - SULFAMETHOXAZOLE 800 MG-TRIMETHOPRIM 160 MG TABLET follow-up as needed. Anam Strickland APRN.GIG TENDER CNOV Observed: 05/01/2018 Status: COMPLETED Source: [place] 8:20 AM [facility] REPOSITORY [facility] NORR[facility] ([id number]) 1940 M Date Time Provider Department 05/01/18 8:20 AM ANAM STRICKLAND ([place]) [place] During your visit today, we recorded the following information about you: Temperature Pulse Blood pressure Weight 98.3 degrees 60/minute 112/80 108.9 kg Anam Strickland APRN.CNP 05/01/2018 8:49 AM Addendum Chief Complaint Patient presents with: UTI: x 4 days - burning with urination - taking cystek - no back pain HPI Norris Stein is a 77 year old male who presents here today for Above Complaints. patient presents to the office today with complaints of dysuria. Duration has been approximate 4 days. Denies any current lower back pain. no visible blood in his urine. Did previously have some urinary frequency but that has subsided. No episodes of incontinence. No fevers or chills. Is taking an yrhk-ati-hosbeti Cystek from a local pharmacy. Does have a prior history of UTIs. Past medical history, appointments, medications, allergies reviewed. Previous Medical History PAST MEDICAL HISTORY Diagnosis Date - DM (diabetes mellitus) (HCC) - Essential hypertension, benign - Other and unspecified hyperlipidemia - Other specified family circumstances Previous Surgical History PAST SURGICAL HISTORY Procedure Laterality Date - COLONOSCOP W/ OR W/O [facility] SPEC 04/08/15 Colonoscopy Family History No family history on file. Patient Allergies ALLERGIES No Known Allergies Current Medications Current Outpatient Prescriptions on File Prior to Visit: codeine-guaiFENesin (ROBITUSSIN AC) 10-100 mg/5 mL syrup Take 5 mL by mouth three times daily as needed for Cough for up to 30 days. omeprazole (PRILOSEC) 20 mg capsule Take 1 capsule by mouth once daily. atorvastatin (LIPITOR) 10 mg tablet Take 1 tablet by mouth daily at bedtime. quinapril (ACCUPRIL) 20 mg tablet Take 1 tablet by mouth twice daily. hydroCHLOROthiazide (HYDRODIURIL, ESIDRIX) 25 mg tablet Take 1 tablet by mouth once daily. metoprolol tartrate, short acting, (LOPRESSOR) 25 mg tablet Take 1 tablet by mouth twice daily. metFORMIN (GLUCOPHAGE) 500 mg tablet Take 1 tablet by mouth twice daily with meals. . ASPIRIN 81 MG ORAL TAB Take one(1) tablet daily. No current facility-administered medications on file prior to visit. Social History Social History Marital status: Spouse name: Years of education: Number of children: Social History Main Topics Smoking status: Never Smoker Smokeless tobacco: Never Used Alcohol use: Yes Comment: occasional sip of wine Drug use: No REVIEW OF SYSTEMS: as above ? Reviewed relevant PMHx, PSHx, Social Hx, current medications and allergies. EXAM: BP 112/80 Pulse 60 Temp 36.8 ?C (98.3 ?F) (Tympanic) Wt 108.9 kg (240 lb) BMI 39.33 kg/m? General Appearance: Well appearing, alert, in no acute distress, well-hydrated, well nourished.. Lungs: Lungs clear to auscultation. No wheezing, rhonchi, rales. Heart: RRR without murmur, gallop, or rubs. No ectopy. Abdomen: Normal abdominal exam, Abdomen soft, non-tender. Bowel sounds normal. No masses, organomegaly. Health Maintenance List DTAP,TDAP,TD(2 - Td) due on 06/25/2017 STATIN MED ADHERENCE due on 05/06/2018 DIABETES MED ADHERENCE due on 05/06/2018 URINE ALBUMIN:CREATININE RATIO due on 08/07/2018 DIABETIC FOOT EXAM due on 08/07/2018 HBA1C due on 08/08/2018 DILATED RETINAL EXAM due on 08/29/2018 LDL CHOLESTEROL due on 02/05/2019 ANNUAL PCP TEAM CHRONIC DISEASE VISIT due on 02/05/2019 BP CONTROLLED (<130/80) due on 02/05/2019 COLORECTAL CANCER SCREENING,SEE MODIFIER due on 04/08/2025 ADULT PREVNAR-13 Completed INFLUENZA Completed PNEUMOVAX AGE 65 AND OVER WITH 5YR LOOKBACK Completed Data reviewed Component Latest Ref Rng AND Units 02/05/2018 Protein, Total 6.3 - 8.0 g/dL 6.1 (L) Albumin 3.9 - 4.9 g/dL 4.3 Calcium 8.5 - 10.2 mg/dL 9.4 Bilirubin, Total 0.2 - 1.3 mg/dL 0.4 Alkaline Phosphatase 36 - 108 U/L 60 AST 14 - 40 U/L 22 Glucose 74 - 99 mg/dL 126 (H) BUN 9 - 24 mg/dL 29 (H) Creatinine 0.73 - 1.22 mg/dL 1.43 (H) Sodium 136 - 144 mmol/L 137 Potassium 3.7 - 5.1 mmol/L 4.3 Chloride 97 - 105 mmol/L 99 CO2 22 - 30 mmol/L 28 Anion Gap 9 - 18 mmol/L 10 ALT 10 - 54 U/L 19 eGFR- 58 eGFR-All Other Races . 48 Cholesterol, Total <200 mg/dL 154 Triglyceride <150 mg/dL 134 HDL Cholesterol >39 mg/dL 33 (L) LDL Cholesterol <100 mg/dL 94 Non HDL Cholesterol <130 mg/dL 121 Fasting Time hrs 10 VLDL Cholesterol <30 mg/dL 27 TC:HDL Ratio <5.10 4.67 LDL:HDL Ratio <2.54 2.85 (H) Hemoglobin A1C 4.3 - 5.6 % 6.7 (H) Estimated Average Glucose mg/dL 146 Component Latest Ref Rng AND Units 05/01/2018 Glucose, Urine Neg mg/dL neg Bilirubin, Urine Neg neg Ketones, Urine Neg neg Specific [place], Ur 1.005 - 1.030 1.010 Hemoglobin/Blood,Ur Neg neg pH, Urine 4.5 - 8.0 6.5 Protein, Urine Neg mg/dL trace Urobilinogen, Urine Normal (<1.1) EU normal Nitrites Neg neg Leukocytes Neg moderate Color/Appearance comment: pale yellow Quality Check yes/no Yes ASSESSMENT/PLAN: 1. Dysuria - ICD9: 788.1, ICD10: R30.0 acute - UA positive for yelitza esterase - Send urine for culture - Begin treatment with Bactrim DS BID for 3 days - Patient education for prevention given - UA DIP B/O - URINE CULTURE - SULFAMETHOXAZOLE 800 MG-TRIMETHOPRIM 160 MG TABLET follow-up as needed. Anam Strickland APRN.GIG TENDER Referring Provider: SELF [200] Allergies As of Date: 05/01/2018 (No Known Allergies) Date Reviewed: 02/05/2018 Reviewed by: Lamar Love Ma - Fully Assessed Reason for Visit: UTI [116] Cmt: x 4 days - burning with urination - taking cystek - no back pain Primary Visit Diagnosis:Dysuria [R30.0] Order(s):UA DIP B/O [[id number]] Order #: [id number] URINE CULTURE [SQURCUL] Order #: [id number] sulfamethoxazole-trimethoprim (BACTRIM DS) 800-160 mg per tabletTake 1 tablet by mouth twice daily for 3 days.Disp: 6 tabletRfl: 0 Prescriptions as of 05/01/2018 Sig: CODEINE 10 MG-GUAIFENESIN 100* Take 5 mL by mouth three time* OMEPRAZOLE 20 MG CAPSULE,AKIRA* Take 1 capsule by mouth once * ATORVASTATIN 10 MG TABLET Take 1 tablet by mouth daily * QUINAPRIL 20 MG TABLET Take 1 tablet by mouth twice * HYDROCHLOROTHIAZIDE 25 MG TAB* Take 1 tablet by mouth once d* METOPROLOL TARTRATE 25 MG TAB* Take 1 tablet by mouth twice * METFORMIN 500 MG TABLET Take 1 tablet by mouth twice * * ASPIRIN 81 MG TABLET Take one(1) tablet daily. SULFAMETHOXAZOLE 800 MG-TRIME* Take 1 tablet by mouth twice * Problem List As Of Date 05/01/2018 Noted Resolved OBESITY NOS [E66.9] INVALID FOR* BENIGN HYPERTENSION [I10] INVALID FOR* Hyperlipidemia [E78.5] INVALID FOR* IMPOTENCE, ORGANIC ORIGN [N52.9] INVALID FOR* IMPAIRED FASTING GLUCOSE [R73.01] INVALID FOR* Bullous pemphigoid [L12.0] INVALID FOR* Type 2 diabetes mellitus without complication, *INVALID FOR* Prescriptions ordered this encounter Disp Refills Start End SULFAMETHOXAZOLE 800 MG-TRIMETHOPRIM* 6 ta* 0 05/01/2018 05/04/2018 Route: ORAL Sig: Take 1 tablet by mouth twice daily for 3 days. Disposition: Return if symptoms worsen or fail to improve. Follow-up and Disposition History Recorded Encounter Status:Closed by ANAM STRICKLAND CNP on 05/01/18 CNCO Observed: 02/11/2018 Status: COMPLETED Source: [place] 12:00 AM [facility] REPOSITORY Letter [facility] [place] Department of Internal Medicine [address], [place] [address] Norris Stein [address] [facility] [address] [facility] #: [id number] 02/11/2018 Below is a message concerning your lab results. If you should have any questions please feel free to contact the office at [phone] : Please inform patient that his Hgb A1c improved to 6.7%. Cholesterol panel looks good. Kidney function is stable. Continue on current dose of medications, follow up in 6 months with labs prior. ? Anam Strickland APRN.[place]EN Thank you Sincerely Your [facility] health Team CNOV Observed: 02/05/2018 Status: COMPLETED Source: [place] 9:40 AM [facility] REPOSITORY Office Visit ([facility]) NORRIS STEIN ([id number]) 1940 M Date Time Provider Department 02/05/18 9:40 AM [facility] During your visit today, we recorded the following information about you: Pulse Respiration Blood pressure Weight 68/minute 18/minute 128/70 104.3 kg Saumya Farias MD 02/05/2018 10:31 AM Signed Chief Complaint Patient presents with: F/U 6 Month: HTN, Lipid and DM HPI Norris Stein is a 77 year old male who presents here today for a 6 mo f/u. Here today with , Martha and son for a 6 mo f/u. DM - Denies checking sugars at home. Has been avoiding sugars and not drinking pop. Currently taking Metformin 500 mg 1 tab po bid. Denies any issues but does have a rash on bilateral arms, concerned if the medication may be the cause. HTN - Checks as necessary, if he feels it is. Denies any chest pain, sob or dizziness. Currently taking Lopressor 25 mg 1 tab po bid, HCTZ 25 mg 1 tab po once daily and Quinapril 20 mg 1 tab po bid. Lipids - Is trying to cut out all sugars and cutting down on portions. Currently taking Atorvastatin 10 mg 1 tab po once daily. GERD - Stable on current dosage of Prilosec 20 mg 1 tab po once daily. Rash - Located on bilateral arms and on his legs. Worse with heat at times. 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 Using Cortisone cream for relief. Admits that balance is not as good with hip operation. Questions about Dr. Barber. Past medical history, appointments, medications, allergies reviewed. Previous Medical History PAST MEDICAL HISTORY Diagnosis Date - Essential hypertension, benign - Other and unspecified hyperlipidemia - Other specified family circumstances Previous Surgical History PAST SURGICAL HISTORY Procedure Laterality Date - COLONOSCOP W/ OR W/O [facility] SPEC 04/08/15 Colonoscopy Family History No family history on file. Patient Allergies ALLERGIES No Known Allergies Current Medications Current Outpatient Prescriptions on File Prior to Visit: metFORMIN (GLUCOPHAGE) 500 mg tablet Take 1 tablet by mouth twice daily with meals. . metoprolol tartrate, short acting, (LOPRESSOR) 25 mg tablet Take 1 tablet by mouth twice daily. hydroCHLOROthiazide (HYDRODIURIL, ESIDRIX) 25 mg tablet Take 1 tablet by mouth once daily. quinapril (ACCUPRIL) 20 mg tablet Take 1 tablet by mouth twice daily. Tadalafil (CIALIS) 20 mg tab(s) Take 1 tablet by mouth as needed. atorvastatin (LIPITOR) 10 mg tablet Take 1 tablet by mouth daily at bedtime. omeprazole (PRILOSEC) 20 mg capsule Take 1 capsule by mouth once daily. codeine-guaiFENesin (ROBITUSSIN AC) 10-100 mg/5 mL syrup Take 5 mL by mouth three times daily as needed for Cough for up to 30 days. ASPIRIN 81 MG ORAL TAB Take one(1) tablet daily. No current facility-administered medications on file prior to visit. Social History Social History Marital status: Spouse name: Years of education: Number of children: Social History Main Topics Smoking status: Never Smoker Smokeless tobacco: Never Used Alcohol use: Yes Comment: occasional sip of wine Drug use: No EXAM: BP 128/70 (BP Site: Left Arm, BP Position: Sitting, BP Cuff Size: Regular Adult) Pulse 68 Resp 18 Wt 104.3 kg (230 lb) BMI 37.69 kg/m? General Appearance: Well appearing, alert, in no acute distress, well-hydrated, well nourished., Overweight. Skin: Red poison ghada type rash on left wrist; small blister on right wrist Lungs: Lungs clear to auscultation. No wheezing, rhonchi, rales. Heart: RRR without murmur, gallop, or rubs. No ectopy. Health Maintenance List ZOSTER VACCINE (SHINGRIX)(1 of 2) due on 1992 DTAP,TDAP,TD(2 - Td) due on 06/25/2017 HBA1C due on 02/04/2018 INFLUENZA(1) due on 04/06/2018 URINE ALBUMIN CREATININE RATIO due on 08/07/2018 LDL due on 08/07/2018 DIABETIC FOOT EXAM due on 08/07/2018 DILATED RETINAL EXAM due on 08/29/2018 COLORECTAL CANCER SCREENING,SEE MODIFIER due on 04/08/2025 ADULT PREVNAR-13 Completed PNEUMOVAX AGE 65 AND OVER WITH 5YR LOOKBACK Completed Data reviewed Labs in Process. No visits with results within 2 Month(s) from this visit. Latest known visit with results is: Appointment on 08/07/2017 Component Date Value - Triglyceride 08/07/2017 76 - Cholesterol, Total 08/07/2017 145 - HDL Cholesterol 08/07/2017 41* - VLDL Cholesterol 08/07/2017 15 - LDL Cholesterol 08/07/2017 89 - Fasting Time 08/07/2017 12 - TC:HDL Ratio 08/07/2017 3.54 - LDL:HDL Ratio 08/07/2017 2.17 - Non HDL Cholesterol 08/07/2017 104 - Protein, Total 08/07/2017 7.2 - Albumin 08/07/2017 3.8* - Calcium 08/07/2017 9.1 - Bilirubin, Total 08/07/2017 0.4 - Alkaline Phosphatase 08/07/2017 71 - AST 08/07/2017 25 - Glucose 08/07/2017 132* - BUN 08/07/2017 23 - Creatinine 08/07/2017 1.37* - Sodium 08/07/2017 140 - Potassium 08/07/2017 5.3* - Chloride 08/07/2017 102 - CO2 08/07/2017 27 - Anion Gap 08/07/2017 11 - ALT 08/07/2017 26 - eGFR- 08/07/2017 >60 - eGFR-All Other Races 08/07/2017 51 - Hemoglobin A1C 08/07/2017 7.2* - Estimated Average Glucose 08/07/2017 160 - Creatinine, Ur Random (U* 08/07/2017 102.0 - Albumin, Urine Random 08/07/2017 106.2* - Albumin/Creat Ratio 08/07/2017 104* - WBC 08/07/2017 7.49 - RBC 08/07/2017 5.01 - Hemoglobin 08/07/2017 14.2 - Hematocrit 08/07/2017 45.7 - MCV 08/07/2017 91.2 - MCH 08/07/2017 28.3 - MCHC 08/07/2017 31.1 - RDW-CV 08/07/2017 12.9 - Platelet Count 08/07/2017 160 - MPV 08/07/2017 10.6 - Absolute nRBC 08/07/2017 <0.01 ASSESSMENT/PLAN: 1. Type 2 diabetes mellitus without complication, without long-term current use of insulin (HCC) - ICD9: 250.00, ICD10: E11.9 (primary diagnosis) - Await lab results; notify of results and whether to make changes in metformin - Continue current medications - METFORMIN 500 MG TABLET 2. Essential hypertension, benign - ICD9: 401.1, ICD10: I10 - good control - Continue current medication(s) - Recommended regular aerobic exercise. - Goal of BP <130/80 3. Hyperlipidemia, unspecified hyperlipidemia type - ICD9: 272.4, ICD10: E78.5 - Await lab results - Continue current medication. 4. Cough - ICD9: 786.2, ICD10: R05 - use PRN (mainly during winter months) - CODEINE 10 MG-GUAIFENESIN 100 MG/5 ML ORAL LIQUID 5. Gastroesophageal reflux disease without esophagitis - ICD9: 530.81, ICD10: K21.9 - Continue current medication regimen. - OMEPRAZOLE 20 MG CAPSULE,DELAYED RELEASE 6. Poison ghada - ICD9: 692.6, ICD10: L23.7 - discussed skin care of rash - follow up if symptoms persist or worsen. - Use Cortizone 10 cream Follow up in 6 months with labs Saumya Farias MD The documentation for this note was completed by Lamar Love Ma acting as scribe for Saumya Farias MD. February 05, 2018 9:34 AM. Referring Provider: SAUMYA FARIAS [[id number]] Allergies As of Date: 02/05/2018 (No Known Allergies) Date Reviewed: 02/05/2018 Reviewed by: Lamar Love Ma - Fully Assessed Reason for Visit: F/U 6 Month [444] Cmt: HTN, Lipid and DM Primary Visit Diagnosis:Type 2 diabetes mellitus without complication, without long-term current use of insulin (HCC) [E11.9] Other Visit Diagnoses:Essential hypertension, benign [I10] Hyperlipidemia, unspecified hyperlipidemia type [E78.5] Cough [R05] Gastroesophageal reflux disease without esophagitis [K21.9] Poison ghada [L23.7] Order(s):codeine-guaiFENesin (ROBITUSSIN AC) 10-100 mg/5 mL syrupTake 5 mL by mouth three times daily as needed for Cough for up to 30 days.Disp: 120 mLRfl: 1 omeprazole (PRILOSEC) 20 mg capsuleTake 1 capsule by mouth once daily.Disp: 90 capsuleRfl: 3 atorvastatin (LIPITOR) 10 mg tabletTake 1 tablet by mouth daily at bedtime.Disp: 90 tabletRfl: 3 quinapril (ACCUPRIL) 20 mg tabletTake 1 tablet by mouth twice daily.Disp: 180 tabletRfl: 3 hydroCHLOROthiazide (HYDRODIURIL, ESIDRIX) 25 mg tabletTake 1 tablet by mouth once daily.Disp: 90 tabletRfl: 3 metoprolol tartrate, short acting, (LOPRESSOR) 25 mg tabletTake 1 tablet by mouth twice daily.Disp: 180 tabletRfl: 3 metFORMIN (GLUCOPHAGE) 500 mg tabletTake 1 tablet by mouth twice daily with meals. .Disp: 60 tabletRfl: 11 COMP METABOLIC PANEL [SQCMP] Order #: [id number] FUTURE LIPID PANEL BASIC [SQLIPB] Order #: [id number] FUTURE HGB A1C [DPPQH5O] Order #: [id number] FUTURE Prescriptions as of 02/05/2018 Sig: CODEINE 10 MG-GUAIFENESIN 100* Take 5 mL by mouth three time* OMEPRAZOLE 20 MG CAPSULE,AKIRA* Take 1 capsule by mouth once * ATORVASTATIN 10 MG TABLET Take 1 tablet by mouth daily * QUINAPRIL 20 MG TABLET Take 1 tablet by mouth twice * HYDROCHLOROTHIAZIDE 25 MG TAB* Take 1 tablet by mouth once d* METOPROLOL TARTRATE 25 MG TAB* Take 1 tablet by mouth twice * METFORMIN 500 MG TABLET Take 1 tablet by mouth twice * * ASPIRIN 81 MG TABLET Take one(1) tablet daily. Problem List As Of Date 02/05/2018 Noted Resolved OBESITY NOS [E66.9] INVALID FOR* BENIGN HYPERTENSION [I10] INVALID FOR* Hyperlipidemia [E78.5] INVALID FOR* IMPOTENCE, ORGANIC ORIGN [N52.9] INVALID FOR* IMPAIRED FASTING GLUCOSE [R73.01] INVALID FOR* Bullous pemphigoid [L12.0] INVALID FOR* Type 2 diabetes mellitus without complication, *INVALID FOR* Prescriptions ordered this encounter Disp Refills Start End CODEINE 10 MG-GUAIFENESIN 100 MG/5 M* 120 * 1 02/05/2018 03/07/2018 Class: Print RX Route: ORAL Sig: Take 5 mL by mouth three times daily as needed for Cough for up to 30 days. OMEPRAZOLE 20 MG CAPSULE,DELAYED REL* 90 c* 3 02/05/2018 Sig: Take 1 capsule by mouth once daily. ATORVASTATIN 10 MG TABLET 90 t* 3 02/05/2018 Route: ORAL Sig: Take 1 tablet by mouth daily at bedtime. QUINAPRIL 20 MG TABLET 180 * 3 02/05/2018 Route: ORAL Sig: Take 1 tablet by mouth twice daily. HYDROCHLOROTHIAZIDE 25 MG TABLET 90 t* 3 02/05/2018 Route: ORAL Sig: Take 1 tablet by mouth once daily. METOPROLOL TARTRATE 25 MG TABLET 180 * 3 02/05/2018 Route: ORAL Sig: Take 1 tablet by mouth twice daily. METFORMIN 500 MG TABLET 60 t* 11 02/05/2018 Route: ORAL Sig: Take 1 tablet by mouth twice daily with meals. . Medications Discontinued During This Encounter Tadalafil (CIALIS) 20 mg tab(s) 6 ta* 11 08/07/2017 02/05/2018 Route: ORAL Sig: Take 1 tablet by mouth as needed. Disc: Reason for discontinue is not on file. codeine-guaiFENesin (ROBITUSSIN AC) * 120 * 1 08/07/2017 02/05/2018 Class: Print RX Route: ORAL Sig: Take 5 mL by mouth three times daily as needed for Cough for up to 30 days. Disc: Reason for discontinue is not on file. omeprazole (PRILOSEC) 20 mg capsule 90 c* 3 08/07/2017 02/05/2018 Sig: Take 1 capsule by mouth once daily. Disc: Reason for discontinue is not on file. atorvastatin (LIPITOR) 10 mg tablet 90 t* 3 08/07/2017 02/05/2018 Route: ORAL Sig: Take 1 tablet by mouth daily at bedtime. Disc: Reason for discontinue is not on file. quinapril (ACCUPRIL) 20 mg tablet 180 * 3 08/07/2017 02/05/2018 Route: ORAL Sig: Take 1 tablet by mouth twice daily. Disc: Reason for discontinue is not on file. hydroCHLOROthiazide (HYDRODIURIL, ES* 90 t* 3 08/07/2017 02/05/2018 Route: ORAL Sig: Take 1 tablet by mouth once daily. Disc: Reason for discontinue is not on file. metoprolol tartrate, short acting, (* 180 * 3 08/07/2017 02/05/2018 Route: ORAL Sig: Take 1 tablet by mouth twice daily. Disc: Reason for discontinue is not on file. metFORMIN (GLUCOPHAGE) 500 mg tablet 60 t* 11 08/13/2017 02/05/2018 Route: ORAL Sig: Take 1 tablet by mouth twice daily with meals. . Disc: Reason for discontinue is not on file. Disposition: Return in about 6 months (around 08/08/2018). Follow-up and Disposition History Recorded Encounter Status:Closed by SAUMYA FARIAS MD on 02/05/18 PROGRESS Observed: 02/05/2018 Status: COMPLETED Source: [place] 9:34 AM [facility] REPOSITORY HNO ID: [id number] Author: Saumya Farias Service: (none) Author Type: Physician Type: Progress Notes Filed: 02/05/2018 10:31 AM Note Text: Chief Complaint Patient presents with: F/U 6 Month: HTN, Lipid and DM HPI Norris Stein is a 77 year old male who presents here today for a 6 mo f/u. Here today with , Martha and son for a 6 mo f/u. DM - Denies checking sugars at home. Has been avoiding sugars and not drinking pop. Currently taking Metformin 500 mg 1 tab po bid. Denies any issues but does have a rash on bilateral arms, concerned if the medication may be the cause. HTN - Checks as necessary, if he feels it is. Denies any chest pain, sob or dizziness. Currently taking Lopressor 25 mg 1 tab po bid, HCTZ 25 mg 1 tab po once daily and Quinapril 20 mg 1 tab po bid. Lipids - Is trying to cut out all sugars and cutting down on portions. Currently taking Atorvastatin 10 mg 1 tab po once daily. GERD - Stable on current dosage of Prilosec 20 mg 1 tab po once daily. Rash - Located on bilateral arms and on his legs. Worse with heat at times. 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 Using Cortisone cream for relief. Admits that balance is not as good with hip operation. Questions about Dr. Barber. Past medical history, appointments, medications, allergies reviewed. Previous Medical History PAST MEDICAL HISTORY Diagnosis Date - Essential hypertension, benign - Other and unspecified hyperlipidemia - Other specified family circumstances Previous Surgical History PAST SURGICAL HISTORY Procedure Laterality Date - COLONOSCOP W/ OR W/O [facility] SPEC 04/08/15 Colonoscopy Family History No family history on file. Patient Allergies ALLERGIES No Known Allergies Current Medications Current Outpatient Prescriptions on File Prior to Visit: metFORMIN (GLUCOPHAGE) 500 mg tablet Take 1 tablet by mouth twice daily with meals. . metoprolol tartrate, short acting, (LOPRESSOR) 25 mg tablet Take 1 tablet by mouth twice daily. hydroCHLOROthiazide (HYDRODIURIL, ESIDRIX) 25 mg tablet Take 1 tablet by mouth once daily. quinapril (ACCUPRIL) 20 mg tablet Take 1 tablet by mouth twice daily. Tadalafil (CIALIS) 20 mg tab(s) Take 1 tablet by mouth as needed. atorvastatin (LIPITOR) 10 mg tablet Take 1 tablet by mouth daily at bedtime. omeprazole (PRILOSEC) 20 mg capsule Take 1 capsule by mouth once daily. codeine-guaiFENesin (ROBITUSSIN AC) 10-100 mg/5 mL syrup Take 5 mL by mouth three times daily as needed for Cough for up to 30 days. ASPIRIN 81 MG ORAL TAB Take one(1) tablet daily. No current facility-administered medications on file prior to visit. Social History Social History Marital status: Spouse name: Years of education: Number of children: Social History Main Topics Smoking status: Never Smoker Smokeless tobacco: Never Used Alcohol use: Yes Comment: occasional sip of wine Drug use: No EXAM: BP 128/70 (BP Site: Left Arm, BP Position: Sitting, BP Cuff Size: Regular Adult) Pulse 68 Resp 18 Wt 104.3 kg (230 lb) BMI 37.69 kg/m? General Appearance: Well appearing, alert, in no acute distress, well-hydrated, well nourished., Overweight. Skin: Red poison ghada type rash on left wrist; small blister on right wrist Lungs: Lungs clear to auscultation. No wheezing, rhonchi, rales. Heart: RRR without murmur, gallop, or rubs. No ectopy. Health Maintenance List ZOSTER VACCINE (SHINGRIX)(1 of 2) due on 1992 DTAP,TDAP,TD(2 - Td) due on 06/25/2017 HBA1C due on 02/04/2018 INFLUENZA(1) due on 04/06/2018 URINE ALBUMIN CREATININE RATIO due on 08/07/2018 LDL due on 08/07/2018 DIABETIC FOOT EXAM due on 08/07/2018 DILATED RETINAL EXAM due on 08/29/2018 COLORECTAL CANCER SCREENING,SEE MODIFIER due on 04/08/2025 ADULT PREVNAR-13 Completed PNEUMOVAX AGE 65 AND OVER WITH 5YR LOOKBACK Completed Data reviewed Labs in Process. No visits with results within 2 Month(s) from this visit. Latest known visit with results is: Appointment on 08/07/2017 Component Date Value - Triglyceride 08/07/2017 76 - Cholesterol, Total 08/07/2017 145 - HDL Cholesterol 08/07/2017 41* - VLDL Cholesterol 08/07/2017 15 - LDL Cholesterol 08/07/2017 89 - Fasting Time 08/07/2017 12 - TC:HDL Ratio 08/07/2017 3.54 - LDL:HDL Ratio 08/07/2017 2.17 - Non HDL Cholesterol 08/07/2017 104 - Protein, Total 08/07/2017 7.2 - Albumin 08/07/2017 3.8* - Calcium 08/07/2017 9.1 - Bilirubin, Total 08/07/2017 0.4 - Alkaline Phosphatase 08/07/2017 71 - AST 08/07/2017 25 - Glucose 08/07/2017 132* - BUN 08/07/2017 23 - Creatinine 08/07/2017 1.37* - Sodium 08/07/2017 140 - Potassium 08/07/2017 5.3* - Chloride 08/07/2017 102 - CO2 08/07/2017 27 - Anion Gap 08/07/2017 11 - ALT 08/07/2017 26 - eGFR- 08/07/2017 >60 - eGFR-All Other Races 08/07/2017 51 - Hemoglobin A1C 08/07/2017 7.2* - Estimated Average Glucose 08/07/2017 160 - Creatinine, Ur Random (U* 08/07/2017 102.0 - Albumin, Urine Random 08/07/2017 106.2* - Albumin/Creat Ratio 08/07/2017 104* - WBC 08/07/2017 7.49 - RBC 08/07/2017 5.01 - Hemoglobin 08/07/2017 14.2 - Hematocrit 08/07/2017 45.7 - MCV 08/07/2017 91.2 - MCH 08/07/2017 28.3 - MCHC 08/07/2017 31.1 - RDW-CV 08/07/2017 12.9 - Platelet Count 08/07/2017 160 - MPV 08/07/2017 10.6 - Absolute nRBC 08/07/2017 <0.01 ASSESSMENT/PLAN: 1. Type 2 diabetes mellitus without complication, without long-term current use of insulin (HCC) - ICD9: 250.00, ICD10: E11.9 (primary diagnosis) - Await lab results; notify of results and whether to make changes in metformin - Continue current medications - METFORMIN 500 MG TABLET 2. Essential hypertension, benign - ICD9: 401.1, ICD10: I10 - good control - Continue current medication(s) - Recommended regular aerobic exercise. - Goal of BP <130/80 3. Hyperlipidemia, unspecified hyperlipidemia type - ICD9: 272.4, ICD10: E78.5 - Await lab results - Continue current medication. 4. Cough - ICD9: 786.2, ICD10: R05 - use PRN (mainly during winter months) - CODEINE 10 MG-GUAIFENESIN 100 MG/5 ML ORAL LIQUID 5. Gastroesophageal reflux disease without esophagitis - ICD9: 530.81, ICD10: K21.9 - Continue current medication regimen. - OMEPRAZOLE 20 MG CAPSULE,DELAYED RELEASE 6. Poison ghada - ICD9: 692.6, ICD10: L23.7 - discussed skin care of rash - follow up if symptoms persist or worsen. - Use Cortizone 10 cream Follow up in 6 months with labs Saumya Farias MD The documentation for this note was completed by Lamar Love Ma acting as scribe for Saumya Farias MD. February 05, 2018 9:34 AM. COMP METABOLIC PANEL Collected: 02/05/2018 Status: F Source: [place] 8:47 AM [facility] REPOSITORY TYPE CODE TESTS RESULT OUT OF REFERENCE UNITS RANGE LAB TP 6.3-8.0 g/dL Low Protein, Total 6.1 LAB ALB 3.9-4.9 g/dL Albumin 4.3 LAB CA 8.5-10.2 mg/dL Calcium, Total 9.4 LAB TBIL 0.2-1.3 mg/dL Bilirubin, Total 0.4 LAB ALKP 36-108 U/L Alkaline Phosphatase 60 LAB AST 14-40 U/L AST 22 LAB GLU 74-99 mg/dL Glucose High 126 Result Comment: The [place] Diabetes Association (ADA) provides guidance for cutoff values for fasting glucose and random glucose. The ADA defines fasting as no caloric intake for at least 8 hours. Fas ting plasma glucose results between 100 to 125 mg/dL indicate increased risk for diabetes (prediabetes). Fasting plasma glucose results greater than or equal to 126 mg/dL meet the criteria for diagnosis of diabetes. In the absence of unequivocal hyperglycemia, results should be confirmed by repeat testing. In a patient with classic symptoms of hyperglycemia or hyperglycemic crisis, random plasma glucose results greater than or equal to 200 mg/dL meet the criteria for diagnosis of diabetes. Reference: Standards of Medical Care in Diabetes 2016, [place] Diabetes Association. Diabetes Care. 2016.39(Suppl 1). LAB BUN 9-24 mg/dL BUN High 29 LAB CRET 0.73-1.22 mg/dL Creatinine High 1.43 LAB NA 136-144 mmol/L Sodium 137 LAB K 3.7-5.1 mmol/L Potassium 4.3 LAB CL 97-105 mmol/L Chloride 99 LAB CO2 22-30 mmol/L CO2 28 LAB AGAP 9-18 mmol/L Anion Gap 10 LAB ALT 10-54 U/L ALT 19 LAB GFRAA eGFR- Amer. 58 LAB GFRNAA . eGFR-All Other Races 48 Result Comment: eGFR (Estimated GFR) Units of measure: mL/min/1.73 meters squared eGFR is derived from the reexpressed MDRD Study equation using the following parameters: serum creatinine, age, gender and race. The creatinine assay has been calibrated to be traceable to IDMS. An eGFR <60 mL/min/1.73m2 for >3 months is consistent with chronic kidney disease. Refer to KDOQI guidelines for clinical interpretation. In patients with unstable renal function, e.g. those with acute kidney injury, the eGFR may not accurately reflect actual GFR. Performed By: #### CMP, LIPB, HBA1C #### [facility] [employer] [address] [place], [place] [address] LIPID PANEL, BASIC Collected: 02/05/2018 Status: F Source: [place] 8:47 AM [facility] REPOSITORY TYPE CODE TESTS RESULT OUT OF REFERENCE UNITS RANGE LAB CHOL <200 mg/dL Cholesterol 154 Result Comment: <200 mg/dL, Desirable 200-239 mg/dL, Borderline high >239 mg/dL, High LAB TRIGLY <150 mg/dL Triglyceride 134 Result Comment: <150 mg/dL, Normal 150-199 mg/dL, Borderline high 200-499 mg/dL, High >499 mg/dL, Very high LAB HDL >39 mg/dL HDL-Cholesterol Low 33 Result Comment: 40-59 mg/dL, Acceptable >59 mg/dL, High: Negative risk factor for coronary heart disease <40 mg/dL, Low: Positive risk factor for coronary heart disease LAB LDL <100 mg/dL LDL-Cholesterol 94 Result Comment: <100 mg/dL, Optimal 100-129 mg/dL, Near optimal/above optimal 130-159 mg/dL, Borderline high 160-189 mg/dL, High >189 mg/dL, Very high Secondary prevention optimal LDL Cholesterol levels are recommended to be < 70 mg/dL LAB NONHDL <130 mg/dL Non HDL Cholesterol 121 Result Comment: <130 mg/dL, Optimal 130-159 mg/dL, Near optimal/above optimal 160-189 mg/dL, Borderline high 190-219 mg/dL, High >219 mg/dL, Very high Secondary prevention optimal non HDL Cholesterol levels are recommended to be < 100 mg/dL LAB FT hrs Fasting Time 10 LAB VLDL <30 mg/dL VLDL Cholesterol 27 LAB TCHDL <5.10 TC:HDL Ratio 4.67 LAB LDLHDL <2.54 High LDL:HDL Ratio 2.85 Result Comment: Reference: 1. National Cholesterol Education Program ATP III Guideline At-A-Glance Quick Desk Reference: National Heart, Lung, and Blood [place]. National Institutes of Health. 2001: NIH Publication No. 01-3305. 2. An International Atherosclerosis Society position paper: global recommendations for the management of dyslipidemia: executive summary, Atherosclerosis. 2014: 232(2):410-413. Performed By: #### CMP, LIPB, HBA1C #### [facility] [employer] [address], [place] [address] HEMOGLOBIN A1C Collected: 02/05/2018 Status: F Source: [place] 8:47 AM [facility] REPOSITORY TYPE CODE TESTS RESULT OUT OF REFERENCE UNITS RANGE LAB HGBA1C 4.3-5.6 % High Hemoglobin A1c 6.7 LAB HBA0 mg/dL Est. Average Glucose 146 Result Comment: eAG: (Estimated average glucose) is a calculated value from HgbA1c and is sales representative jewelry of the average blood glucose level in the last 2-3 month period. Performed By: #### CMP, LIPB, HBA1C #### [facility] [address] [place], [place] [address] CNOV Observed: 11/09/2017 Status: COMPLETED Source: [place] 3:00 PM [facility] REPOSITORY [facility] NORRIS STEIN Kristal ([id number]) 1940 M Date Time Provider Department 11/09/17 3:00 PM ANAM STRICKLAND ([facility]) [facility] During your visit today, we recorded the following information about you: Temperature Pulse Respiration Blood pressure 98.8 degrees 80/minute 20/minute 130/72 Weight 104.8 kg Anam Strickland APRN.[facility] 11/09/2017 3:23 PM Signed Chief Complaint Patient presents with: Rash: x 1 week - no pain - some itching - HPI Norrisbertha Stein is a 77 year old male who presents here today for Above Complaints. Patient complains of: Rash Duration: 4-5 days Location: Bilateral ankles Associated Symptoms: Pruritis. No pain. No fevers or chills. No chest pain, shortness of breath or calf pain. Aggravating factors: Nothing. Things that improve symptoms : States that he uses Tide solution with water and it improved his symptoms. Has used a cortisone cream otc at home and stated that it did improve it. No new detergents, no new medications, no new foods. Past medical history, appointments, medications, allergies reviewed. Previous Medical History PAST MEDICAL HISTORY Diagnosis Date - Essential hypertension, benign - Other and unspecified hyperlipidemia - Other specified family circumstances Previous Surgical History PAST SURGICAL HISTORY Procedure Laterality Date - COLONOSCOP W/ OR W/O [facility] SPEC 04/08/15 Colonoscopy Family History No family history on file. Patient Allergies ALLERGIES No Known Allergies Current Medications Current Outpatient Prescriptions on File Prior to Visit: metFORMIN (GLUCOPHAGE) 500 mg tablet Take 1 tablet by mouth twice daily with meals. . metoprolol tartrate, short acting, (LOPRESSOR) 25 mg tablet Take 1 tablet by mouth twice daily. hydroCHLOROthiazide (HYDRODIURIL, ESIDRIX) 25 mg tablet Take 1 tablet by mouth once daily. quinapril (ACCUPRIL) 20 mg tablet Take 1 tablet by mouth twice daily. Tadalafil (CIALIS) 20 mg tab(s) Take 1 tablet by mouth as needed. atorvastatin (LIPITOR) 10 mg tablet Take 1 tablet by mouth daily at bedtime. omeprazole (PRILOSEC) 20 mg capsule Take 1 capsule by mouth once daily. codeine-guaiFENesin (ROBITUSSIN AC) 10-100 mg/5 mL syrup Take 5 mL by mouth three times daily as needed for Cough for up to 30 days. ASPIRIN 81 MG ORAL TAB Take one(1) tablet daily. No current facility-administered medications on file prior to visit. Social History Social History Marital status: Spouse name: Years of education: Number of children: Social History Main Topics Smoking status: Never Smoker Smokeless status: Never Used Alcohol use: Yes Comment: occasional sip of wine Drug use: No REVIEW OF SYSTEMS: as above ? Reviewed relevant PMHx, PSHx, Social Hx, current medications and allergies. EXAM: BP 130/72 Pulse 80 Temp 37.1 ?C (98.8 ?F) (Tympanic) Resp 20 Wt 104.8 kg (231 lb) BMI 37.86 kg/m2 General Appearance: Well appearing, alert, in no acute distress, well-hydrated, well nourished.. Skin: Widespread, irregular rash of his bilateral ankles, foot without swelling, erythema; it is blanchable. Lungs: Lungs clear to auscultation. No wheezing, rhonchi, rales Heart: RRR without murmur, gallop, or rubs. No ectopy. Extremities: No deformities, edema. Health Maintenance List TETANUS due on 06/25/2017 HBA1C due on 02/04/2018 INFLUENZA(Season Ended) due on 04/06/2018 URINE ALBUMIN CREATININE RATIO due on 08/07/2018 LDL due on 08/07/2018 DIABETIC FOOT EXAM due on 08/07/2018 DILATED RETINAL EXAM due on 08/29/2018 COLORECTAL CANCER SCREENING,SEE MODIFIER due on 04/08/2025 PROSTATE CANCER SCREENING DISCUSSION Completed ADULT PREVNAR-13 Completed PNEUMOVAX AGE 65 AND OVER WITH 5YR LOOKBACK Completed Data reviewed Component Latest Ref Rng ANDamp; Units 08/07/2017 Protein, Total 6.3 - 8.0 g/dL 7.2 Albumin 3.9 - 4.9 g/dL 3.8 (L) Calcium 8.5 - 10.2 mg/dL 9.1 Bilirubin, Total 0.2 - 1.3 mg/dL 0.4 Alkaline Phosphatase 36 - 108 U/L 71 AST 14 - 40 U/L 25 Glucose 74 - 99 mg/dL 132 (H) BUN 9 - 24 mg/dL 23 Creatinine 0.73 - 1.22 mg/dL 1.37 (H) Sodium 136 - 144 mmol/L 140 Potassium 3.7 - 5.1 mmol/L 5.3 (H) Chloride 97 - 105 mmol/L 102 CO2 22 - 30 mmol/L 27 Anion Gap 9 - 18 mmol/L 11 ALT 10 - 54 U/L 26 eGFR- ANDgt;60 eGFR-All Other Races . 51 WBC 3.70 - 11.00 k/uL 7.49 RBC 4.20 - 6.00 m/uL 5.01 Hemoglobin 13.0 - 17.0 g/dL 14.2 Hematocrit 39.0 - 51.0 % 45.7 MCV 80.0 - 100.0 fL 91.2 MCH 26.0 - 34.0 pG 28.3 MCHC 30.5 - 36.0 g/dL 31.1 RDW-CV 11.5 - 15.0 % 12.9 Platelet Count 150 - 400 k/uL 160 MPV 9.0 - 12.7 fL 10.6 Absolute nRBC ANDlt;0.01 k/uL ANDlt;0.01 Triglyceride 30 - 149 mg/dL 76 Cholesterol, Total 100 - 199 mg/dL 145 HDL Cholesterol ANDgt;45 mg/dL 41 (L) VLDL Cholesterol 6 - 40 mg/dL 15 LDL Cholesterol 60 - 129 mg/dL 89 Fasting Time hrs 12 TC:HDL Ratio 1.00 - 5.00 3.54 LDL:HDL Ratio 0.50 - 3.55 2.17 Non HDL Cholesterol 90 - 159 mg/dL 104 Creatinine, Ur Random (UCRR) 20 - 300 mg/dL 102.0 Albumin, Urine Random 0.0 - 23.0 mg/L 106.2 (H) Albumin/Creat Ratio 0 - 30 mg/g 104 (H) Hemoglobin A1C 4.3 - 5.6 % 7.2 (H) Estimated Average Glucose mg/dL 160 ASSESSMENT/PLAN: 1. Rash - ICD9: 782.1, ICD10: R21 - No new medications, foods or detergents. - Unknown etiology. Is not vascular-like, CA, tinea, psoriasis or impetigo. Eczema-like? - PREDNISONE 10 MG TABLET taper with food. - Advised close follow up if swelling of foot/ankle, fevers, chills, pain occurs. Follow up as needed. Anam Strickland APRN.GIG TENDER Referring Provider: SELF [[id number]] Allergies As of Date: 11/09/2017 (No Known Allergies) Date Reviewed: 11/09/2017 Reviewed by: Analisa Pineda Welfare Project Manager - Fully Assessed Reason for Visit: Rash [1087] Cmt: x 1 week - no pain - some itching - Primary Visit Diagnosis:Rash [R21] Order(s):predniSONE (DELTASONE) 10 mg tabletTake 6 tabs for 3 days, then 4 tabs for 3 days, then 2 tabs for 3 days then 1 tab for 3 days with food.Disp: 39 tabletRfl: 0 Prescriptions as of 11/09/2017 Sig: METFORMIN 500 MG TABLET Take 1 tablet by mouth twice * METOPROLOL TARTRATE 25 MG TAB* Take 1 tablet by mouth twice * HYDROCHLOROTHIAZIDE 25 MG TAB* Take 1 tablet by mouth once d* QUINAPRIL 20 MG TABLET Take 1 tablet by mouth twice * TADALAFIL 20 MG TABLET Take 1 tablet by mouth as nee* ATORVASTATIN 10 MG TABLET Take 1 tablet by mouth daily * OMEPRAZOLE 20 MG CAPSULE,AKIRA* Take 1 capsule by mouth once * CODEINE 10 MG-GUAIFENESIN 100* Take 5 mL by mouth three time* * ASPIRIN 81 MG TABLET Take one(1) tablet daily. PREDNISONE 10 MG TABLET Take 6 tabs for 3 days, then * Problem List As Of Date 11/09/2017 Noted Resolved OBESITY NOS [E66.9] INVALID FOR* BENIGN HYPERTENSION [I10] INVALID FOR* Hyperlipidemia [E78.5] INVALID FOR* IMPOTENCE, ORGANIC ORIGN [N52.9] INVALID FOR* IMPAIRED FASTING GLUCOSE [R73.01] INVALID FOR* Bullous pemphigoid [L12.0] INVALID FOR* Type 2 diabetes mellitus without complication, *INVALID FOR* Prescriptions ordered this encounter Disp Refills Start End PREDNISONE 10 MG TABLET 39 t* 0 11/09/2017 11/21/2017 Sig: Take 6 tabs for 3 days, then 4 tabs for 3 days, then 2 tabs for 3 days then 1 tab for 3 days with food. Disposition: Return if symptoms worsen or fail to improve. Follow-up and Disposition History Recorded Encounter Status:Closed by ANAM STRICKLAND CNP on 11/09/17 PROGRESS Observed: 11/09/2017 Status: COMPLETED Source: [place] 2:55 PM [facility] [place] REPOSITORY HNO ID: [id number] Author: Anam (Austen) Em Service: (none) Author Type: Nurse Practitioner Type: Progress Notes Filed: 11/09/2017 3:23 PM Note Text: Chief Complaint Patient presents with: Rash: x 1 week - no pain - some itching - HPI Norris Stein is a 77 year old male who presents here today for Above Complaints. Patient complains of: Rash Duration: 4-5 days Location: Bilateral ankles Associated Symptoms: Pruritis. No pain. No fevers or chills. No chest pain, shortness of breath or calf pain. Aggravating factors: Nothing. Things that improve symptoms : States that he uses Tide solution with water and it improved his symptoms. Has used a cortisone cream otc at home and stated that it did improve it. No new detergents, no new medications, no new foods. Past medical history, appointments, medications, allergies reviewed. Previous Medical History PAST MEDICAL HISTORY Diagnosis Date - Essential hypertension, benign - Other and unspecified hyperlipidemia - Other specified family circumstances Previous Surgical History PAST SURGICAL HISTORY Procedure Laterality Date - COLONOSCOP W/ OR W/O [facility] SPEC 04/08/15 Colonoscopy Family History No family history on file. Patient Allergies ALLERGIES No Known Allergies Current Medications Current Outpatient Prescriptions on File Prior to Visit: metFORMIN (GLUCOPHAGE) 500 mg tablet Take 1 tablet by mouth twice daily with meals. . metoprolol tartrate, short acting, (LOPRESSOR) 25 mg tablet Take 1 tablet by mouth twice daily. hydroCHLOROthiazide (HYDRODIURIL, ESIDRIX) 25 mg tablet Take 1 tablet by mouth once daily. quinapril (ACCUPRIL) 20 mg tablet Take 1 tablet by mouth twice daily. Tadalafil (CIALIS) 20 mg tab(s) Take 1 tablet by mouth as needed. atorvastatin (LIPITOR) 10 mg tablet Take 1 tablet by mouth daily at bedtime. omeprazole (PRILOSEC) 20 mg capsule Take 1 capsule by mouth once daily. codeine-guaiFENesin (ROBITUSSIN AC) 10-100 mg/5 mL syrup Take 5 mL by mouth three times daily as needed for Cough for up to 30 days. ASPIRIN 81 MG ORAL TAB Take one(1) tablet daily. No current facility-administered medications on file prior to visit. Social History Social History Marital status: Spouse name: Years of education: Number of children: Social History Main Topics Smoking status: Never Smoker Smokeless status: Never Used Alcohol use: Yes Comment: occasional sip of wine Drug use: No REVIEW OF SYSTEMS: as above ? Reviewed relevant PMHx, PSHx, Social Hx, current medications and allergies. EXAM: BP 130/72 Pulse 80 Temp 37.1 ?C (98.8 ?F) (Tympanic) Resp 20 Wt 104.8 kg (231 lb) BMI 37.86 kg/m2 General Appearance: Well appearing, alert, in no acute distress, well-hydrated, well nourished.. Skin: Widespread, irregular rash of his bilateral ankles, foot without swelling, erythema; it is blanchable. Lungs: Lungs clear to auscultation. No wheezing, rhonchi, rales Heart: RRR without murmur, gallop, or rubs. No ectopy. Extremities: No deformities, edema. Health Maintenance List TETANUS due on 06/25/2017 HBA1C due on 02/04/2018 INFLUENZA(Season Ended) due on 04/06/2018 URINE ALBUMIN CREATININE RATIO due on 08/07/2018 LDL due on 08/07/2018 DIABETIC FOOT EXAM due on 08/07/2018 DILATED RETINAL EXAM due on 08/29/2018 COLORECTAL CANCER SCREENING,SEE MODIFIER due on 04/08/2025 PROSTATE CANCER SCREENING DISCUSSION Completed ADULT PREVNAR-13 Completed PNEUMOVAX AGE 65 AND OVER WITH 5YR LOOKBACK Completed Data reviewed Component Latest Ref Rng AND Units 08/07/2017 Protein, Total 6.3 - 8.0 g/dL 7.2 Albumin 3.9 - 4.9 g/dL 3.8 (L) Calcium 8.5 - 10.2 mg/dL 9.1 Bilirubin, Total 0.2 - 1.3 mg/dL 0.4 Alkaline Phosphatase 36 - 108 U/L 71 AST 14 - 40 U/L 25 Glucose 74 - 99 mg/dL 132 (H) BUN 9 - 24 mg/dL 23 Creatinine 0.73 - 1.22 mg/dL 1.37 (H) Sodium 136 - 144 mmol/L 140 Potassium 3.7 - 5.1 mmol/L 5.3 (H) Chloride 97 - 105 mmol/L 102 CO2 22 - 30 mmol/L 27 Anion Gap 9 - 18 mmol/L 11 ALT 10 - 54 U/L 26 eGFR- >60 eGFR-All Other Races . 51 WBC 3.70 - 11.00 k/uL 7.49 RBC 4.20 - 6.00 m/uL 5.01 Hemoglobin 13.0 - 17.0 g/dL 14.2 Hematocrit 39.0 - 51.0 % 45.7 MCV 80.0 - 100.0 fL 91.2 MCH 26.0 - 34.0 pG 28.3 MCHC 30.5 - 36.0 g/dL 31.1 RDW-CV 11.5 - 15.0 % 12.9 Platelet Count 150 - 400 k/uL 160 MPV 9.0 - 12.7 fL 10.6 Absolute nRBC <0.01 k/uL <0.01 Triglyceride 30 - 149 mg/dL 76 Cholesterol, Total 100 - 199 mg/dL 145 HDL Cholesterol >45 mg/dL 41 (L) VLDL Cholesterol 6 - 40 mg/dL 15 LDL Cholesterol 60 - 129 mg/dL 89 Fasting Time hrs 12 TC:HDL Ratio 1.00 - 5.00 3.54 LDL:HDL Ratio 0.50 - 3.55 2.17 Non HDL Cholesterol 90 - 159 mg/dL 104 Creatinine, Ur Random (UCRR) 20 - 300 mg/dL 102.0 Albumin, Urine Random 0.0 - 23.0 mg/L 106.2 (H) Albumin/Creat Ratio 0 - 30 mg/g 104 (H) Hemoglobin A1C 4.3 - 5.6 % 7.2 (H) Estimated Average Glucose mg/dL 160 ASSESSMENT/PLAN: 1. Rash - ICD9: 782.1, ICD10: R21 - No new medications, foods or detergents. - Unknown etiology. Is not vascular-like, CA, tinea, psoriasis or impetigo. Eczema-like? - PREDNISONE 10 MG TABLET taper with food. - Advised close follow up if swelling of foot/ankle, fevers, chills, pain occurs. Follow up as needed. Anam Strickland APRN.GIG TENDER PROGRESS Observed: 08/07/2017 Status: COMPLETED Source: [place] 10:45 AM [facility] REPOSITORY HNO ID: [id number] Author: Saumya Farias Service: (none) Author Type: Physician Type: Progress Notes Filed: 08/07/2017 11:38 AM Note Text: Chief Complaint Patient presents with: F/U 6 Month: HTN, Lipid and DM HPI Norris Stein is a 76 year old male who presents here today for a 6 mo f/u. Here today with his for a 6 mo f/u. States today that he feels woozy believes it is due to lack of sleep and being cold. Had a great New Years HTN - Checking BP daily since last week and at heart level. Has some concern due to his numbers being lower then usual. Numbers ranging from 115-124/44-57. Denies any chest pain, sob or dizziness. Currently taking Lopressor 25 mg 1 tab po bid, Quinapril 20 mg 1 tab po bid and HCTZ 25 mg 1 tab po once daily. DM - Denies checking sugars at home and only monitoring through scheduled blood work. Due for DM Foot check. Unable to schedule Dilated Retinal Exam due to his Eye Doctor's office being closed. Lipids - Currently taking Lipitor 10 mg once daily. Bladder - Doing well since seeing Anam Strickland and given Cipro. Able to urinate and doing well at this time. Past medical history, appointments, medications, allergies reviewed. Previous Medical History PAST MEDICAL HISTORY Diagnosis Date - Essential hypertension, benign - Other and unspecified hyperlipidemia - Other specified family circumstances Previous Surgical History PAST SURGICAL HISTORY Procedure Laterality Date - COLONOSCOP W/ OR W/O [facility] SPEC 04/08/15 Colonoscopy Family History No family history on file. Patient Allergies ALLERGIES No Known Allergies Current Medications Current Outpatient Prescriptions on File Prior to Visit: metoprolol tartrate, short acting, (LOPRESSOR) 25 mg tablet Take 1 tablet by mouth twice daily. hydroCHLOROthiazide (HYDRODIURIL, ESIDRIX) 25 mg tablet Take 1 tablet by mouth once daily. quinapril (ACCUPRIL) 20 mg tablet Take 1 tablet by mouth twice daily. Tadalafil (CIALIS) 20 mg tab(s) Take 1 tablet by mouth as needed. atorvastatin (LIPITOR) 10 mg tablet Take 1 tablet by mouth daily at bedtime. codeine-guaiFENesin (ROBITUSSIN AC) 10-100 mg/5 mL syrup Take 5 mL by mouth three times daily as needed. omeprazole (PRILOSEC) 20 mg capsule Take 1 capsule by mouth once daily. ASPIRIN 81 MG ORAL TAB Take one(1) tablet daily. No current facility-administered medications on file prior to visit. Social History Social History Marital status: Spouse name: Years of education: Number of children: Social History Main Topics Smoking status: Never Smoker Smokeless status: Never Used Alcohol use: Yes Comment: occasional sip of wine Drug use: No EXAM: BP 126/58 (BP Site: Left Arm, BP Position: Sitting, BP Cuff Size: Large Adult) Pulse 64 Resp 16 Wt 108 kg (238 lb 3.2 oz) BMI 39.04 kg/m2 General Appearance: Well appearing, alert, in no acute distress, well-hydrated, well nourished., Obese. Ears: External ears normal, canals clear. Lungs: Lungs clear to auscultation. No wheezing, rhonchi, rales. Heart: RRR without murmur, gallop, or rubs. No ectopy. Extremities: Swelling in b/l legs R>L. Feet: Shoes and socks removed, No deformities, ulcers, calluses, normal distal pulses and sensitive to 10 gm monofilament Health Maintenance List DILATED RETINAL EXAM due on 1942 URINE ALBUMIN CREATININE RATIO due on 1958 DIABETIC FOOT EXAM due on 1958 - Check in office INFLUENZA(1) due on 04/06/2017 - Patient declined in office TETANUS due on 06/25/2017 HBA1C due on 07/22/2017 LDL due on 01/20/2018 COLORECTAL CANCER SCREENING,SEE MODIFIER due on 04/08/2025 PROSTATE CANCER SCREENING DISCUSSION Completed ADULT PREVNAR-13 Completed PNEUMOVAX AGE 65 AND OVER WITH 5YR LOOKBACK Completed Data reviewed In process ASSESSMENT/PLAN: 1. Type 2 diabetes mellitus without complication, without long-term current use of insulin (HCC) - ICD9: 250.00, ICD10: E11.9 (primary diagnosis) - Diet and Exercise - Await results 2. Essential hypertension, benign - ICD9: 401.1, ICD10: I10 - good control - Continue current medication(s) - Recommended regular aerobic exercise. - Recommend home blood pressure monitoring, to bring results in on next visit - Goal of BP <130/80 3. Hyperlipidemia, unspecified hyperlipidemia type - ICD9: 272.4, ICD10: E78.5 Continue current medication regimen. 4. Gastroesophageal reflux disease without esophagitis - ICD9: 530.81, ICD10: K21.9 - Continue current medication regimen. - OMEPRAZOLE 20 MG CAPSULE,DELAYED RELEASE 5. 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 - TADALAFIL 20 MG TABLET 6. Cough - ICD9: 786.2, ICD10: R05 Continue current medication regimen; prn cough medicine - CODEINE 10 MG-GUAIFENESIN 100 MG/5 ML ORAL LIQUID Notify of today's lab results Follow up in 6 mo with labs. Saumya Farias MD The documentation for this note was completed by Lamar Love Ma acting as scribe for Saumya Farias MD. August 07, 2017 10:45 AM. CNOV Observed: 08/07/2017 Status: COMPLETED Source: [place] 10:20 AM [facility] REPOSITORY [facility] NORRIS STEIN ([id number]) 1940 M Date Time Provider Department 08/07/17 10:20 AM SAUMYA FARIAS During your visit today, we recorded the following information about you: Pulse Respiration Blood pressure Weight 64/minute 16/minute 126/58 108 kg Saumya Farias MD 08/07/2017 11:38 AM Signed Chief Complaint Patient presents with: F/U 6 Month: HTN, Lipid and DM HPI Norris Stein is a 76 year old male who presents here today for a 6 mo f/u. Here today with his for a 6 mo f/u. States today that he feels ANDquot;woozyANDquot; believes it is due to lack of sleep and being cold. Had a great New Years HTN - Checking BP daily since last week and at heart level. Has some concern due to his numbers being lower then usual. Numbers ranging from 115-124/44-57. Denies any chest pain, sob or dizziness. Currently taking Lopressor 25 mg 1 tab po bid, Quinapril 20 mg 1 tab po bid and HCTZ 25 mg 1 tab po once daily. DM - Denies checking sugars at home and only monitoring through scheduled blood work. Due for DM Foot check. Unable to schedule Dilated Retinal Exam due to his Eye Doctor's office being closed. Lipids - Currently taking Lipitor 10 mg once daily. Bladder - Doing well since seeing Anam Strickland and given Cipro. Able to urinate and doing well at this time. Past medical history, appointments, medications, allergies reviewed. Previous Medical History PAST MEDICAL HISTORY Diagnosis Date - Essential hypertension, benign - Other and unspecified hyperlipidemia - Other specified family circumstances Previous Surgical History PAST SURGICAL HISTORY Procedure Laterality Date - COLONOSCOP W/ OR W/O [facility] SPEC 04/08/15 Colonoscopy Family History No family history on file. Patient Allergies ALLERGIES No Known Allergies Current Medications Current Outpatient Prescriptions on File Prior to Visit: metoprolol tartrate, short acting, (LOPRESSOR) 25 mg tablet Take 1 tablet by mouth twice daily. hydroCHLOROthiazide (HYDRODIURIL, ESIDRIX) 25 mg tablet Take 1 tablet by mouth once daily. quinapril (ACCUPRIL) 20 mg tablet Take 1 tablet by mouth twice daily. Tadalafil (CIALIS) 20 mg tab(s) Take 1 tablet by mouth as needed. atorvastatin (LIPITOR) 10 mg tablet Take 1 tablet by mouth daily at bedtime. codeine-guaiFENesin (ROBITUSSIN AC) 10-100 mg/5 mL syrup Take 5 mL by mouth three times daily as needed. omeprazole (PRILOSEC) 20 mg capsule Take 1 capsule by mouth once daily. ASPIRIN 81 MG ORAL TAB Take one(1) tablet daily. No current facility-administered medications on file prior to visit. Social History Social History Marital status: Spouse name: Years of education: Number of children: Social History Main Topics Smoking status: Never Smoker Smokeless status: Never Used Alcohol use: Yes Comment: occasional sip of wine Drug use: No EXAM: BP 126/58 (BP Site: Left Arm, BP Position: Sitting, BP Cuff Size: Large Adult) Pulse 64 Resp 16 Wt 108 kg (238 lb 3.2 oz) BMI 39.04 kg/m2 General Appearance: Well appearing, alert, in no acute distress, well-hydrated, well nourished., Obese. Ears: External ears normal, canals clear. Lungs: Lungs clear to auscultation. No wheezing, rhonchi, rales. Heart: RRR without murmur, gallop, or rubs. No ectopy. Extremities: Swelling in b/l legs RANDgt;L. Feet: Shoes and socks removed, No deformities, ulcers, calluses, normal distal pulses and sensitive to 10 gm monofilament Health Maintenance List DILATED RETINAL EXAM due on 1942 URINE ALBUMIN CREATININE RATIO due on 1958 DIABETIC FOOT EXAM due on 1958 - Check in office INFLUENZA(1) due on 04/06/2017 - Patient declined in office TETANUS due on 06/25/2017 HBA1C due on 07/22/2017 LDL due on 01/20/2018 COLORECTAL CANCER SCREENING,SEE MODIFIER due on 04/08/2025 PROSTATE CANCER SCREENING DISCUSSION Completed ADULT PREVNAR-13 Completed PNEUMOVAX AGE 65 AND OVER WITH 5YR LOOKBACK Completed Data reviewed In process ASSESSMENT/PLAN: 1. Type 2 diabetes mellitus without complication, without long-term current use of insulin (HCC) - ICD9: 250.00, ICD10: E11.9 (primary diagnosis) - Diet and Exercise - Await results 2. Essential hypertension, benign - ICD9: 401.1, ICD10: I10 - good control - Continue current medication(s) - Recommended regular aerobic exercise. - Recommend home blood pressure monitoring, to bring results in on next visit - Goal of BP ANDlt;130/80 3. Hyperlipidemia, unspecified hyperlipidemia type - ICD9: 272.4, ICD10: E78.5 Continue current medication regimen. 4. Gastroesophageal reflux disease without esophagitis - ICD9: 530.81, ICD10: K21.9 - Continue current medication regimen. - OMEPRAZOLE 20 MG CAPSULE,DELAYED RELEASE 5. 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 - TADALAFIL 20 MG TABLET 6. Cough - ICD9: 786.2, ICD10: R05 Continue current medication regimen; prn cough medicine - CODEINE 10 MG-GUAIFENESIN 100 MG/5 ML ORAL LIQUID Notify of today's lab results Follow up in 6 mo with labs. Saumya Farias MD The documentation for this note was completed by Lamar Love Ma acting as scribe for Saumya Farias MD. August 07, 2017 10:45 AM. Referring Provider: SAUMYA FARIAS [[id number]] Allergies As of Date: 08/07/2017 (No Known Allergies) Date Reviewed: 08/07/2017 Reviewed by: Lamar Love Ma - Fully Assessed Reason for Visit: F/U 6 Month [444] Cmt: HTN, Lipid and DM Reason For Visit History Recorded Primary Visit Diagnosis:Type 2 diabetes mellitus without complication, without long-term current use of insulin (HCC) [E11.9] Other Visit Diagnoses:Essential hypertension, benign [I10] Hyperlipidemia, unspecified hyperlipidemia type [E78.5] Gastroesophageal reflux disease without esophagitis [K21.9] IMPOTENCE, ORGANIC ORIGN [N52.9] Cough [R05] Order(s):metoprolol tartrate, short acting, (LOPRESSOR) 25 mg tabletTake 1 tablet by mouth twice daily.Disp: 180 tabletRfl: 3 hydroCHLOROthiazide (HYDRODIURIL, ESIDRIX) 25 mg tabletTake 1 tablet by mouth once daily.Disp: 90 tabletRfl: 3 quinapril (ACCUPRIL) 20 mg tabletTake 1 tablet by mouth twice daily.Disp: 180 tabletRfl: 3 Tadalafil (CIALIS) 20 mg tab(s)Take 1 tablet by mouth as needed.Disp: 6 tabletRfl: 11 atorvastatin (LIPITOR) 10 mg tabletTake 1 tablet by mouth daily at bedtime.Disp: 90 tabletRfl: 3 omeprazole (PRILOSEC) 20 mg capsuleTake 1 capsule by mouth once daily.Disp: 90 capsuleRfl: 3 codeine-guaiFENesin (ROBITUSSIN AC) 10-100 mg/5 mL syrupTake 5 mL by mouth three times daily as needed for Cough for up to 30 days.Disp: 120 mLRfl: 1 COMP METABOLIC PANEL [SQCMP] Order #: [id number] FUTURE LIPID PANEL BASIC [SQLIPB] Order #: [id number] FUTURE HGB A1C [OPLRP0L] Order #: [id number] FUTURE Prescriptions as of 08/07/2017 Sig: METOPROLOL TARTRATE 25 MG TAB* Take 1 tablet by mouth twice * HYDROCHLOROTHIAZIDE 25 MG TAB* Take 1 tablet by mouth once d* QUINAPRIL 20 MG TABLET Take 1 tablet by mouth twice * TADALAFIL 20 MG TABLET Take 1 tablet by mouth as nee* ATORVASTATIN 10 MG TABLET Take 1 tablet by mouth daily * OMEPRAZOLE 20 MG CAPSULE,AKIRA* Take 1 capsule by mouth once * CODEINE 10 MG-GUAIFENESIN 100* Take 5 mL by mouth three time* * ASPIRIN 81 MG TABLET Take one(1) tablet daily. Problem List As Of Date 08/07/2017 Noted Resolved OBESITY NOS [E66.9] INVALID FOR* BENIGN HYPERTENSION [I10] INVALID FOR* Hyperlipidemia [E78.5] INVALID FOR* IMPOTENCE, ORGANIC ORIGN [N52.9] INVALID FOR* IMPAIRED FASTING GLUCOSE [R73.01] INVALID FOR* Bullous pemphigoid [L12.0] INVALID FOR* Type 2 diabetes mellitus without complication, *INVALID FOR* Prescriptions ordered this encounter Disp Refills Start End METOPROLOL TARTRATE 25 MG TABLET 180 * 3 08/07/2017 Route: ORAL Sig: Take 1 tablet by mouth twice daily. HYDROCHLOROTHIAZIDE 25 MG TABLET 90 t* 3 08/07/2017 Route: ORAL Sig: Take 1 tablet by mouth once daily. QUINAPRIL 20 MG TABLET 180 * 3 08/07/2017 Route: ORAL Sig: Take 1 tablet by mouth twice daily. TADALAFIL 20 MG TABLET 6 ta* 11 08/07/2017 Route: ORAL Sig: Take 1 tablet by mouth as needed. ATORVASTATIN 10 MG TABLET 90 t* 3 08/07/2017 Route: ORAL Sig: Take 1 tablet by mouth daily at bedtime. OMEPRAZOLE 20 MG CAPSULE,DELAYED REL* 90 c* 3 08/07/2017 Sig: Take 1 capsule by mouth once daily. CODEINE 10 MG-GUAIFENESIN 100 MG/5 M* 120 * 1 08/07/2017 09/06/2017 Class: Print RX Route: ORAL Sig: Take 5 mL by mouth three times daily as needed for Cough for up to 30 days. Medications Discontinued During This Encounter metoprolol tartrate, short acting, (* 180 * 3 02/09/2017 08/07/2017 Route: ORAL Sig: Take 1 tablet by mouth twice daily. Disc: Reason for discontinue is not on file. hydroCHLOROthiazide (HYDRODIURIL, ES* 90 t* 3 02/09/2017 08/07/2017 Route: ORAL Sig: Take 1 tablet by mouth once daily. Disc: Reason for discontinue is not on file. quinapril (ACCUPRIL) 20 mg tablet 180 * 3 02/09/2017 08/07/2017 Route: ORAL Sig: Take 1 tablet by mouth twice daily. Disc: Reason for discontinue is not on file. Tadalafil (CIALIS) 20 mg tab(s) 6 ta* 11 01/24/2017 08/07/2017 Route: ORAL Sig: Take 1 tablet by mouth as needed. Disc: Reason for discontinue is not on file. atorvastatin (LIPITOR) 10 mg tablet 90 t* 3 11/08/2016 08/07/2017 Route: ORAL Sig: Take 1 tablet by mouth daily at bedtime. Disc: Reason for discontinue is not on file. omeprazole (PRILOSEC) 20 mg capsule 30 c* 11 07/18/2016 08/07/2017 Sig: Take 1 capsule by mouth once daily. Disc: Reason for discontinue is not on file. codeine-guaiFENesin (ROBITUSSIN AC) * 120 * 3 07/18/2016 08/07/2017 Class: Print RX Route: ORAL Sig: Take 5 mL by mouth three times daily as needed. Disc: Reason for discontinue is not on file. Disposition: Return in about 6 months (around 02/04/2018). Follow-up and Disposition History Recorded Encounter Status:Closed by SAUMYA FARIAS MD on 08/07/17 CBC Collected: 08/07/2017 Status: F Source: [place] 8:19 AM [facility] REPOSITORY TYPE CODE TESTS RESULT OUT OF REFERENCE UNITS RANGE LAB WBC 3.70-11.00 k/uL WBC 7.49 LAB RBC 4.20-6.00 m/uL RBC 5.01 LAB HGB 13.0-17.0 g/dL Hemoglobin 14.2 LAB HCT 39.0-51.0 % Hematocrit 45.7 LAB MCV 80.0-100.0 fL MCV 91.2 LAB MCH 26.0-34.0 pG MCH 28.3 LAB MCHC 30.5-36.0 g/dL MCHC 31.1 LAB RDWCV 11.5-15.0 % RDW-CV 12.9 LAB PLTCT 150-400 k/uL Platelet Count 160 LAB MPV 9.0-12.7 fL MPV 10.6 LAB ABSNUC <0.01 k/uL Absolute nRBC <0.01 Performed By: #### CBC #### [facility] [employer] [address], [place] [address] ALBUMIN/CREAT RATIO Collected: 08/07/2017 Status: F Source: [place] 8:19 AM [facility] REPOSITORY TYPE CODE TESTS RESULT OUT OF REFERENCE UNITS RANGE LAB UCRR 20-300 mg/dL Creatinine,Ur 102.0 ine,Ran LAB UALBR 0.0-23.0 mg/L High Albumin Urine 106.2 Random LAB UALBCR 0-30 mg/g High Albumin/Creat 104 Ratio Result Comment: 30 to 300 mg/g indicates an increased risk for diabetic nephropathy. Greater than 300 mg/g is consistent with clinical nephropathy. (Am J Kidney Disease 1994, 25:107) Performed By: #### UACR #### [facility] [employer] [address], [place] [address] COMP METABOLIC PANEL Collected: 08/07/2017 Status: F Source: [place] 8:18 AM [facility] REPOSITORY TYPE CODE TESTS RESULT OUT OF REFERENCE UNITS RANGE LAB TP 6.3-8.0 g/dL Protein, Total 7.2 LAB ALB 3.9-4.9 g/dL Low Albumin 3.8 LAB CA 8.5-10.2 mg/dL Calcium, Total 9.1 LAB TBIL 0.2-1.3 mg/dL Bilirubin, Total 0.4 LAB ALKP 36-108 U/L Alkaline Phosphatase 71 LAB AST 14-40 U/L AST 25 LAB GLU 74-99 mg/dL Glucose High 132 Result Comment: The [place] Diabetes Association (ADA) provides guidance for cutoff values for fasting glucose and random glucose. The ADA defines fasting as no caloric intake for at least 8 hours. Fas ting plasma glucose results between 100 to 125 mg/dL indicate increased risk for diabetes (prediabetes). Fasting plasma glucose results greater than or equal to 126 mg/dL meet the criteria for diagnosis of diabetes. In the absence of unequivocal hyperglycemia, results should be confirmed by repeat testing. In a patient with classic symptoms of hyperglycemia or hyperglycemic crisis, random plasma glucose results greater than or equal to 200 mg/dL meet the criteria for diagnosis of diabetes. Reference: Standards of Medical Care in Diabetes 2016, [place] Diabetes Association. Diabetes Care. 2016.39(Suppl 1). LAB BUN 9-24 mg/dL BUN 23 LAB CRET 0.73-1.22 mg/dL Creatinine High 1.37 LAB NA 136-144 mmol/L Sodium 140 LAB K 3.7-5.1 mmol/L Potassium High 5.3 LAB CL 97-105 mmol/L Chloride 102 LAB CO2 22-30 mmol/L CO2 27 LAB AGAP 9-18 mmol/L Anion Gap 11 LAB ALT 10-54 U/L ALT 26 LAB GFRAA eGFR- Amer. >60 LAB GFRNAA . eGFR-All Other Races 51 Result Comment: eGFR (Estimated GFR) Units of measure: mL/min/1.73 meters squared eGFR is derived from the reexpressed MDRD Study equation using the following parameters: serum creatinine, age, gender and race. The creatinine assay has been calibrated to be traceable to IDMS. An eGFR <60 mL/min/1.73m2 for >3 months is consistent with chronic kidney disease. Refer to KDOQI guidelines for clinical interpretation. In patients with unstable renal function, e.g. those with acute kidney injury, the eGFR may not accurately reflect actual GFR. Performed By: #### CMP, LIPB, HBA1C #### [facility] [address], [place] [address] LIPID PANEL, BASIC Collected: 08/07/2017 Status: F Source: [place] 8:18 AM [facility] REPOSITORY TYPE CODE TESTS RESULT OUT OF REFERENCE UNITS RANGE LAB TRIGLY 30-149 mg/dL Triglyceride 76 LAB CHOL 100-199 mg/dL Cholesterol 145 LAB HDL >45 mg/dL Low HDL-Cholesterol 41 LAB VLDL 6-40 mg/dL VLDL Cholesterol 15 LAB LDL 60-129 mg/dL LDL-Cholesterol 89 LAB FT hrs Fasting Time 12 LAB TCHDL 1.00-5.00 TC:HDL Ratio 3.54 LAB LDLHDL 0.50-3.55 LDL:HDL Ratio 2.17 LAB NONHDL 90-159 mg/dL Non HDL Cholesterol 104 Performed By: #### CMP, LIPB, HBA1C #### [facility] [place] [id number] HEMOGLOBIN A1C Collected: 08/07/2017 Status: F Source: [place] 8:18 AM [facility] REPOSITORY TYPE CODE TESTS RESULT OUT OF REFERENCE UNITS RANGE LAB HGBA1C 4.3-5.6 % High Hemoglobin A1c 7.2 LAB HBA0 mg/dL Est. Average Glucose 160 Result Comment: eAG: (Estimated average glucose) is a calculated value from HgbA1c and is sales representative jewelry of the average blood glucose level in the last 2-3 month period. Performed By: #### CMP, LIPB, HBA1C #### [facility] [place] [id number] PROGRESS Observed: 08/03/2017 Status: COMPLETED Source: [place] 10:50 AM [facility] REPOSITORY HNO ID: [id number] Author: Ela Briceño) Salma Service: (none) Author Type: Levee Superintendent Type: Progress Notes Filed: 08/03/2017 10:52 AM Note Text: The patient has been identified by name and date of : YES I have scheduled the patient for an appointment on Visit date The patient will report to the lab prior to the visit.118 CMP Urine Albumin Lipid HgbA1c PHMA Documentation 08/01/2017 Opts out of [facility] No Appointments Scheduled Scheduled PCP Appt DM2 with No BOOGIE Record Requested Opthy Appt No DM2 with No Urine Alb Lab Ordered DM2 with No DFE Record Requested Ela Marsh MA PROGRESS Observed: 08/01/2017 Status: COMPLETED Source: [place] 1:08 PM [facility] REPOSITORY HNO ID: [id number] Author: Ela Marsh Service: (none) Author Type: Levee Superintendent Type: Progress Notes Filed: 08/03/2017 10:48 AM Note Text: I have attempted to contact this patient by phone to return their call, schedule an appointment, discuss lab results, etc. Left message to call back. PROGRESS Observed: 08/01/2017 Status: COMPLETED Source: [place] 1:08 PM [facility] REPOSITORY HNO ID: [id number] Author: Ela Marsh Service: (none) Author Type: Levee Superintendent Type: Progress Notes Filed: 08/03/2017 10:48 AM Note Text: The patient has been identified by name and date of : YES I have scheduled the patient for an appointment on 08/07/2017. The patient will report to the lab prior to the visit. I have pended the following lab orders: Urine albumin CMP Lipid hgbA1c PHMA Documentation 08/01/2017 Opts out of [facility] No Appointments Scheduled Scheduled PCP Appt DM2 with No BOOGIE Record Requested Opthy Appt No DM2 with No Urine Alb Lab Ordered DM2 with No DFE Record Requested Ela Marsh MA PROGRESS Observed: 08/01/2017 Status: COMPLETED Source: [place] 1:00 PM [facility] REPOSITORY HNO ID: [id number] Author: Ela Marsh Service: (none) Author Type: Levee Superintendent Type: Progress Notes Filed: 08/03/2017 10:48 AM Note Text: Patient has HYPERTENSION, DM, Hyperlipidemia Appointment is scheduled for 08/07/17 DILATED RETINAL EXAM due on 1940 will call patient URINE ALBUMIN CREATININE RATIO due on 1958 ordered DIABETIC FOOT EXAM due on 1958 will do at visit INFLUENZA(1) due on 04/06/2017discuss TETANUS due on 06/25/2017 discuss HBA1C due on 07/22/2017 ordered CMP ordered Lipid ordered CNPTOUTREACH Observed: 07/31/2017 Status: COMPLETED Source: [place] 12:00 [facility] REPOSITORY Patient Outreach (FAMPWS) NORRIS STEIN ([id number]) 1940 M Date Time Provider Department 07/31/17 ELA MARSH) JVWS During your visit today, we recorded the following information about you: Ela Marsh MA 08/03/2017 10:48 AM Signed Patient has HYPERTENSION, DM, Hyperlipidemia Appointment is scheduled for 08/07/17 DILATED RETINAL EXAM due on 1940 will call patient URINE ALBUMIN CREATININE RATIO due on 1958 ordered DIABETIC FOOT EXAM due on 1958 will do at visit INFLUENZA(1) due on 04/06/2017discuss TETANUS due on 06/25/2017 discuss HBA1C due on 07/22/2017 ordered CMP ordered Lipid ordered Ela Marsh MA 08/03/2017 10:48 AM Signed The patient has been identified by name and date of : YES I have scheduled the patient for an appointment on 08/07/2017. The patient will report to the lab prior to the visit. I have pended the following lab orders: Urine albumin CMP Lipid hgbA1c PHMA Documentation 08/01/2017 Opts out of [facility] No Appointments Scheduled Scheduled PCP Appt DM2 with No BOOGIE Record Requested Opthy Appt No DM2 with No Urine Alb Lab Ordered DM2 with No DFE Record Requested NENA French MA 08/03/2017 10:48 AM Signed I have attempted to contact this patient by phone to return their call, schedule an appointment, discuss lab results, etc. Left message to call back. Allergies As of Date: 07/31/2017 (No Known Allergies) Date Reviewed: 07/27/2017 Reviewed by: Anam (Austen) AUSTEN Strickland - Fully Assessed Reason for Visit: PHMA/Care Gap Outreach [[id number]] Prescriptions as of 07/31/2017 Sig: CIPROFLOXACIN 500 MG TABLET Take 1 tablet by mouth twice * METOPROLOL TARTRATE 25 MG TAB* Take 1 tablet by mouth twice * HYDROCHLOROTHIAZIDE 25 MG TAB* Take 1 tablet by mouth once d* QUINAPRIL 20 MG TABLET Take 1 tablet by mouth twice * TADALAFIL 20 MG TABLET Take 1 tablet by mouth as nee* ATORVASTATIN 10 MG TABLET Take 1 tablet by mouth daily * CODEINE 10 MG-GUAIFENESIN 100* Take 5 mL by mouth three time* OMEPRAZOLE 20 MG CAPSULE,AKIRA* Take 1 capsule by mouth once * * ASPIRIN 81 MG TABLET Take one(1) tablet daily. Problem List As Of Date 07/31/2017 Noted Resolved OBESITY NOS [E66.9] INVALID FOR* BENIGN HYPERTENSION [I10] INVALID FOR* Hyperlipidemia [E78.5] INVALID FOR* IMPOTENCE, ORGANIC ORIGN [N52.9] INVALID FOR* IMPAIRED FASTING GLUCOSE [R73.01] INVALID FOR* Bullous pemphigoid [L12.0] INVALID FOR* Type 2 diabetes mellitus without complication, *INVALID FOR* Encounter Status:Closed by ELA MARSH on 08/03/17 TONY Observed: 07/27/2017 Status: COMPLETED Source: [place] 10:20 AM [facility] REPOSITORY Office Visit (FAMPWS) NORRIS STEIN ([id number]) 1940 M Date Time Provider Department 07/27/17 10:20 AM ANAM STRICKLAND (AUSTEN) FAMPWS During your visit today, we recorded the following information about you: Temperature Pulse Blood pressure Weight 98.7 degrees 75/minute 144/82 105.2 kg Anam Strickland CNP, CNP 07/27/2017 9:55 AM Signed Chief Complaint Patient presents with: Urinary Urgency HPI Norrisbertha Stein is a 76 year old male who presents here today for Above Complaints.. Patient presents to the office with complaints of urinary urgency, frequency. Symptoms have been present intermittently for the past few weeks. Presented to with similar complaints on 07/18/2017. Started on keflex, which he finished. States that his urinary symptoms returned within the past few days. No fevers, chills. No blood visible in his urine. No flank pain. Very mid dysuria. Mentions that he has been urinating every 30 minutes. Urine culture from visit did grow ANDgt;100,000 of E. Coli. Sensitivity showed Ciprofloxacin as most sensitive antibiotic. History of diabetes. Last known Hgb A1c was 7.0, has standing lab orders at this time for an upcoming visit with Dr. Farias. Past medical history, appointments, medications, allergies reviewed. Previous Medical History PAST MEDICAL HISTORY Diagnosis Date - Essential hypertension, benign - Other and unspecified hyperlipidemia - Other specified family circumstances Previous Surgical History PAST SURGICAL HISTORY Procedure Laterality Date - COLONOSCOP W/ OR W/O [facility] SPE[facility] 04/08/15 Colonoscopy Family History No family history on file. Patient Allergies ALLERGIES No Known Allergies Current Medications Current Outpatient Prescriptions on File Prior to Visit: metoprolol tartrate, short acting, (LOPRESSOR) 25 mg tablet Take 1 tablet by mouth twice daily. hydroCHLOROthiazide (HYDRODIURIL, ESIDRIX) 25 mg tablet Take 1 tablet by mouth once daily. quinapril (ACCUPRIL) 20 mg tablet Take 1 tablet by mouth twice daily. Tadalafil (CIALIS) 20 mg tab(s) Take 1 tablet by mouth as needed. atorvastatin (LIPITOR) 10 mg tablet Take 1 tablet by mouth daily at bedtime. codeine-guaiFENesin (ROBITUSSIN AC) 10-100 mg/5 mL syrup Take 5 mL by mouth three times daily as needed. omeprazole (PRILOSEC) 20 mg capsule Take 1 capsule by mouth once daily. ASPIRIN 81 MG ORAL TAB Take one(1) tablet daily. No current facility-administered medications on file prior to visit. Social History Social History Marital status: Spouse name: Years of education: Number of children: Social History Main Topics Smoking status: Never Smoker Smokeless status: Never Used Alcohol use: Yes Comment: occasional sip of wine Drug use: No REVIEW OF SYSTEMS: as above ? Reviewed relevant PMHx, PSHx, Social Hx, current medications and allergies. EXAM: BP 144/82 Pulse 75 Temp 37.1 ?C (98.7 ?F) (Tympanic) Wt 105.2 kg (232 lb) BMI 38.02 kg/m2 General Appearance: Well appearing, alert, in no acute distress, well-hydrated, well nourished.. Skin: Skin color, texture, turgor normal, no suspicious rashes or lesions. Back:No CVA tenderness Lungs: Lungs clear to auscultation. No wheezing, rhonchi, rales. Heart: RRR without murmur, gallop, or rubs. No ectopy. Health Maintenance List DILATED RETINAL EXAM due on 1942 URINE ALBUMIN due on 1958 DIABETIC FOOT EXAM due on 1958 INFLUENZA(1) due on 04/06/2017 TETANUS due on 06/25/2017 HBA1C due on 07/22/2017 LDL due on 01/20/2018 COLORECTAL CANCER SCREENING,SEE MODIFIER due on 04/08/2025 PROSTATE CANCER SCREENING DISCUSSION Completed ADULT PREVNAR-13 Completed PNEUMOVAX AGE 65 AND OVER WITH 5YR LOOKBACK Completed Data reviewed Component Latest Ref Rng ANDamp; Units 01/20/2017 07/18/2017 07/18/2017 07/18/2017 9:01 AM 9:01 AM 9:34 AM Protein, Total 6.3 - 8.0 g/dL 6.9 Albumin 3.9 - 4.9 g/dL 4.0 Calcium 8.5 - 10.2 mg/dL 9.4 Bilirubin, Total 0.2 - 1.3 mg/dL 0.3 Alkaline Phosphatase 36 - 108 U/L 68 AST 14 - 40 U/L 23 Glucose 74 - 99 mg/dL 142 (H) BUN 9 - 24 mg/dL 21 Creatinine 0.73 - 1.22 mg/dL 1.28 (H) Sodium 136 - 144 mmol/L 141 Potassium 3.7 - 5.1 mmol/L 4.6 Chloride 97 - 105 mmol/L 103 CO2 22 - 30 mmol/L 25 Anion Gap 9 - 18 mmol/L 13 ALT 10 - 54 U/L 21 eGFR- ANDgt;60 eGFR-All Other Races . 55 Glucose, Urine Neg mg/dL neg Bilirubin, Urine Neg neg Ketones, Urine Neg neg Specific [place], Ur 1.005 - 1.030 1.005 Hemoglobin/Blood,Ur Neg large pH, Urine 4.5 - 8.0 6.5 Protein, Urine Neg mg/dL 100 Urobilinogen, Urine Normal (ANDlt;1.1) EU 0.2 Nitrites Neg positive Leukocytes Neg large Color/Appearance comment: cloudy yelow Quality Check yes/no Yes Triglyceride 30 - 149 mg/dL 113 Cholesterol 100 - 199 mg/dL 154 HDL Cholesterol ANDgt;45 mg/dL 34 (L) VLDL Cholesterol 6 - 40 mg/dL 23 LDL Cholesterol 60 - 129 mg/dL 97 Fasting Time hrs 12 TC:HDL Ratio 1.00 - 5.00 4.53 LDL:HDL Ratio 0.50 - 3.55 2.85 Non HDL Cholesterol 90 - 159 mg/dL 120 Specimen Request Specimen received in preservative Culture ANDgt;=100,000 CFU/ml (A) . . . 50,000 - ANDlt;100,000 CFU/ml (A) . . . Hemoglobin A1C 4.3 - 5.6 % 7.0 (H) Estimated Average Glucose mg/dL 154 Component Latest Ref Rng ANDamp; Units 07/27/2017 Glucose, Urine Neg mg/dL neg Bilirubin, Urine Neg neg Ketones, Urine Neg neg Specific [place], Ur 1.005 - 1.030 1.015 Hemoglobin/Blood,Ur Neg large pH, Urine 4.5 - 8.0 6.0 Protein, Urine Neg mg/dL 300 Urobilinogen, Urine Normal (ANDlt;1.1) EU normal Nitrites Neg positive Leukocytes Neg large Color/Appearance comment: cloudy Quality Check yes/no Yes ASSESSMENT/PLAN: 1. Urinary frequency - ICD9: 788.41, ICD10: R35.0 (primary diagnosis) Acute, will choose antibiotic based on most recent culture. - UA positive for yelitza esterase, hematuria and nitrates - Send urine for culture - Patient education for prevention given - UA DIP B/O - URINE CULTURE - CIPROFLOXACIN 500 MG TABLET - Advised probiotic use during antibiotic use. 2. Urgency of urination - ICD9: 788.63, ICD10: R39.15 - See above. - UA DIP B/O - URINE CULTURE - CIPROFLOXACIN 500 MG TABLET Follow up as needed. Anam Strickland CNP Referring Provider: SELF [[id number]] Allergies As of Date: 07/27/2017 (No Known Allergies) Date Reviewed: 07/27/2017 Reviewed by: Anam (Austen) AUSTEN Strickland - Fully Assessed Reason for Visit: Urinary Urgency [2827] Primary Visit Diagnosis:Urinary frequency [R35.0] Other Visit Diagnosis:Urgency of urination [R39.15] Order(s):UA DIP B/O [5021022] Order #: [id number] URINE CULTURE [SQURCUL] Order #: [id number] ciprofloxacin HCl (CIPRO) 500 mg tabletTake 1 tablet by mouth twice daily for 10 days.Disp: 20 tabletRfl: 0 Prescriptions as of 07/27/2017 Sig: METOPROLOL TARTRATE 25 MG TAB* Take 1 tablet by mouth twice * HYDROCHLOROTHIAZIDE 25 MG TAB* Take 1 tablet by mouth once d* QUINAPRIL 20 MG TABLET Take 1 tablet by mouth twice * TADALAFIL 20 MG TABLET Take 1 tablet by mouth as nee* ATORVASTATIN 10 MG TABLET Take 1 tablet by mouth daily * CODEINE 10 MG-GUAIFENESIN 100* Take 5 mL by mouth three time* OMEPRAZOLE 20 MG CAPSULE,AKIRA* Take 1 capsule by mouth once * * ASPIRIN 81 MG TABLET Take one(1) tablet daily. CIPROFLOXACIN 500 MG TABLET Take 1 tablet by mouth twice * Problem List As Of Date 07/27/2017 Noted Resolved OBESITY NOS [E66.9] INVALID FOR* BENIGN HYPERTENSION [I10] INVALID FOR* Hyperlipidemia [E78.5] INVALID FOR* IMPOTENCE, ORGANIC ORIGN [N52.9] INVALID FOR* IMPAIRED FASTING GLUCOSE [R73.01] INVALID FOR* Bullous pemphigoid [L12.0] INVALID FOR* Type 2 diabetes mellitus without complication, *INVALID FOR* Prescriptions ordered this encounter Disp Refills Start End CIPROFLOXACIN 500 MG TABLET 20 t* 0 07/27/2017 08/06/2017 Route: ORAL Sig: Take 1 tablet by mouth twice daily for 10 days. Disposition: Return if symptoms worsen or fail to improve. Follow-up and Disposition History Recorded Encounter Status:Closed by ANAM STRICKLAND CNP on 07/27/17 PROGRESS Observed: 07/27/2017 Status: COMPLETED Source: [place] 9:30 AM [facility] [place] REPOSITORY HNO ID: [id number] Author: Anam (Austen) AUSTEN Strickland Service: (none) Author Type: Nurse Practitioner Type: Progress Notes Filed: 07/27/2017 9:55 AM Note Text: Chief Complaint Patient presents with: Urinary Urgency HPI Norris Stein is a 76 year old male who presents here today for Above Complaints.. Patient presents to the office with complaints of urinary urgency, frequency. Symptoms have been present intermittently for the past few weeks. Presented to with similar complaints on 07/18/2017. Started on keflex, which he finished. States that his urinary symptoms returned within the past few days. No fevers, chills. No blood visible in his urine. No flank pain. Very mid dysuria. Mentions that he has been urinating every 30 minutes. Urine culture from visit did grow >100,000 of E. Coli. Sensitivity showed Ciprofloxacin as most sensitive antibiotic. History of diabetes. Last known Hgb A1c was 7.0, has standing lab orders at this time for an upcoming visit with Dr. Farias. Past medical history, appointments, medications, allergies reviewed. Previous Medical History PAST MEDICAL HISTORY Diagnosis Date - Essential hypertension, benign - Other and unspecified hyperlipidemia - Other specified family circumstances Previous Surgical History PAST SURGICAL HISTORY Procedure Laterality Date - COLONOSCOP W/ OR W/O [facility] SPEC 04/08/15 Colonoscopy Family History No family history on file. Patient Allergies ALLERGIES No Known Allergies Current Medications Current Outpatient Prescriptions on File Prior to Visit: metoprolol tartrate, short acting, (LOPRESSOR) 25 mg tablet Take 1 tablet by mouth twice daily. hydroCHLOROthiazide (HYDRODIURIL, ESIDRIX) 25 mg tablet Take 1 tablet by mouth once daily. quinapril (ACCUPRIL) 20 mg tablet Take 1 tablet by mouth twice daily. Tadalafil (CIALIS) 20 mg tab(s) Take 1 tablet by mouth as needed. atorvastatin (LIPITOR) 10 mg tablet Take 1 tablet by mouth daily at bedtime. codeine-guaiFENesin (ROBITUSSIN AC) 10-100 mg/5 mL syrup Take 5 mL by mouth three times daily as needed. omeprazole (PRILOSEC) 20 mg capsule Take 1 capsule by mouth once daily. ASPIRIN 81 MG ORAL TAB Take one(1) tablet daily. No current facility-administered medications on file prior to visit. Social History Social History Marital status: Spouse name: Years of education: Number of children: Social History Main Topics Smoking status: Never Smoker Smokeless status: Never Used Alcohol use: Yes Comment: occasional sip of wine Drug use: No REVIEW OF SYSTEMS: as above ? Reviewed relevant PMHx, PSHx, Social Hx, current medications and allergies. EXAM: BP 144/82 Pulse 75 Temp 37.1 ?C (98.7 ?F) (Tympanic) Wt 105.2 kg (232 lb) BMI 38.02 kg/m2 General Appearance: Well appearing, alert, in no acute distress, well-hydrated, well nourished.. Skin: Skin color, texture, turgor normal, no suspicious rashes or lesions. Back:No CVA tenderness Lungs: Lungs clear to auscultation. No wheezing, rhonchi, rales. Heart: RRR without murmur, gallop, or rubs. No ectopy. Health Maintenance List DILATED RETINAL EXAM due on 1940 URINE ALBUMIN due on 1958 DIABETIC FOOT EXAM due on 1958 INFLUENZA(1) due on 04/06/2017 TETANUS due on 06/25/2017 HBA1C due on 07/22/2017 LDL due on 01/20/2018 COLORECTAL CANCER SCREENING,SEE MODIFIER due on 04/08/2025 PROSTATE CANCER SCREENING DISCUSSION Completed ADULT PREVNAR-13 Completed PNEUMOVAX AGE 65 AND OVER WITH 5YR LOOKBACK Completed Data reviewed Component Latest Ref Rng AND Units 01/20/2017 07/18/2017 07/18/2017 07/18/2017 9:01 AM 9:01 AM 9:34 AM Protein, Total 6.3 - 8.0 g/dL 6.9 Albumin 3.9 - 4.9 g/dL 4.0 Calcium 8.5 - 10.2 mg/dL 9.4 Bilirubin, Total 0.2 - 1.3 mg/dL 0.3 Alkaline Phosphatase 36 - 108 U/L 68 AST 14 - 40 U/L 23 Glucose 74 - 99 mg/dL 142 (H) BUN 9 - 24 mg/dL 21 Creatinine 0.73 - 1.22 mg/dL 1.28 (H) Sodium 136 - 144 mmol/L 141 Potassium 3.7 - 5.1 mmol/L 4.6 Chloride 97 - 105 mmol/L 103 CO2 22 - 30 mmol/L 25 Anion Gap 9 - 18 mmol/L 13 ALT 10 - 54 U/L 21 eGFR- >60 eGFR-All Other Races . 55 Glucose, Urine Neg mg/dL neg Bilirubin, Urine Neg neg Ketones, Urine Neg neg Specific [place], Ur 1.005 - 1.030 1.005 Hemoglobin/Blood,Ur Neg large pH, Urine 4.5 - 8.0 6.5 Protein, Urine Neg mg/dL 100 Urobilinogen, Urine Normal (<1.1) EU 0.2 Nitrites Neg positive Leukocytes Neg large Color/Appearance comment: cloudy yelow Quality Check yes/no Yes Triglyceride 30 - 149 mg/dL 113 Cholesterol 100 - 199 mg/dL 154 HDL Cholesterol >45 mg/dL 34 (L) VLDL Cholesterol 6 - 40 mg/dL 23 LDL Cholesterol 60 - 129 mg/dL 97 Fasting Time hrs 12 TC:HDL Ratio 1.00 - 5.00 4.53 LDL:HDL Ratio 0.50 - 3.55 2.85 Non HDL Cholesterol 90 - 159 mg/dL 120 Specimen Request Specimen received in preservative Culture >=100,000 CFU/ml (A) . . . 50,000 - <100,000 CFU/ml (A) . . . Hemoglobin A1C 4.3 - 5.6 % 7.0 (H) Estimated Average Glucose mg/dL 154 Component Latest Ref Rng AND Units 07/27/2017 Glucose, Urine Neg mg/dL neg Bilirubin, Urine Neg neg Ketones, Urine Neg neg Specific [place], Ur 1.005 - 1.030 1.015 Hemoglobin/Blood,Ur Neg large pH, Urine 4.5 - 8.0 6.0 Protein, Urine Neg mg/dL 300 Urobilinogen, Urine Normal (<1.1) EU normal Nitrites Neg positive Leukocytes Neg large Color/Appearance comment: cloudy Quality Check yes/no Yes ASSESSMENT/PLAN: 1. Urinary frequency - ICD9: 788.41, ICD10: R35.0 (primary diagnosis) Acute, will choose antibiotic based on most recent culture. - UA positive for yelitza esterase, hematuria and nitrates - Send urine for culture - Patient education for prevention given - UA DIP B/O - URINE CULTURE - CIPROFLOXACIN 500 MG TABLET - Advised probiotic use during antibiotic use. 2. Urgency of urination - ICD9: 788.63, ICD10: R39.15 - See above. - UA DIP B/O - URINE CULTURE - CIPROFLOXACIN 500 MG TABLET Follow up as needed. Anam Strickland CNP Observed: 07/27/2017 Status: F Source: [place] URINE CULTURE 9:30 AM [facility] REPOSITORY Sp. 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 No further workup. --> ABNORMAL ALERT 10,000 - <50,000 CFU/ml --> ABNORMAL ALERT Lactose negative gram negative bacilli --> ABNORMAL ALERT Insignificant colony count. No further workup. --> ABNORMAL ALERT Performed By: #### URCUL #### [facility] [address] [place], [place] [address] CNPTOUTREACH Observed: 07/24/2017 Status: COMPLETED Source: [place] 12:00 AM [facility] REPOSITORY Patient Outreach (Local[facility]) NORRIS STEIN ([id number]) 1940 Date Time Provider Department 07/24/17 [facility] During your visit today, we recorded the following information about you: Ela Marsh MA 08/03/2017 10:52 AM Signed The patient has been identified by name and date of : YES I have scheduled the patient for an appointment on Visit date The patient will report to the lab prior to the visit.1-2-18 CMP Urine Albumin Lipid HgbA1c PHMA Documentation 08/01/2017 Opts out of Population Health No Appointments Scheduled Scheduled PCP Appt DM2 with No BOOGIE Record Requested Opthy Appt No DM2 with No Urine Alb Lab Ordered DM2 with No DFE Record Requested Ela Marsh MA Allergies As of Date: 07/24/2017 (No Known Allergies) Date Reviewed: 07/18/2017 Reviewed by: Sarah Mena Ma - Fully Assessed Visit Diagnosis:Medication management [Z79.899] Order(s):ALBUMIN/CREAT RATIO RND UR [SQUACR] Order #: [id number] FUTURE CBC [SQCBC] Order #: [id number] FUTURE Prescriptions as of 07/24/2017 Sig: CEPHALEXIN 500 MG CAPSULE Take 1 capsule by mouth twice* METOPROLOL TARTRATE 25 MG TAB* Take 1 tablet by mouth twice * HYDROCHLOROTHIAZIDE 25 MG TAB* Take 1 tablet by mouth once d* QUINAPRIL 20 MG TABLET Take 1 tablet by mouth twice * TADALAFIL 20 MG TABLET Take 1 tablet by mouth as nee* ATORVASTATIN 10 MG TABLET Take 1 tablet by mouth daily * CODEINE 10 MG-GUAIFENESIN 100* Take 5 mL by mouth three time* OMEPRAZOLE 20 MG CAPSULE,AKIRA* Take 1 capsule by mouth once * * ASPIRIN 81 MG TABLET Take one(1) tablet daily. Problem List As Of Date 07/24/2017 Noted Resolved OBESITY NOS [E66.9] INVALID FOR* BENIGN HYPERTENSION [I10] INVALID FOR* Hyperlipidemia [E78.5] INVALID FOR* IMPOTENCE, ORGANIC ORIGN [N52.9] INVALID FOR* IMPAIRED FASTING GLUCOSE [R73.01] INVALID FOR* Bullous pemphigoid [L12.0] INVALID FOR* Type 2 diabetes mellitus without complication, *INVALID FOR* Encounter Status:Closed by ELA MARSH on 08/03/17 ALLERGIES ALLERGIES DATE TYPE / CODE NAME / CODE REACTION SEVERITY SOURCE 07/02/2018 Drug No Known Unknown [facility] Allergy/416 Allergies/W42578 Hospital 672411(SNOM 0388(RXNORM) Repository ED CT) Drug NO KNOWN [facility] Class/73129 ALLERGIES [place] 1003(SNOMED Repository CT) ENCOUNTERS ENCOUNTERS ADMIT/DISCHARGE ACCOUNT ADMITTING ENCOUNTER LOCATION SOURCE NUMBER CLASS 07/22/2018 [id number] [facility] ing:LABSPEC Repository 07/22/2018/07/22/20 [id number] Ambulatory [address] Repository 07/18/2018 [id number] [facility] ing:CR Repository 07/18/2018 [id number] [facility] ing:LAB Repository 07/16/2018/07/17/20 [id number] Ambulatory [address] Repository 07/03/2018/07/03/20 [id number] Ambulatory [address] Repository 07/02/2018/07/06/20 [id number] [place], Inpatient Raad Farfan [facility] ing:PCURoom: Repository ECT880Xzc: 1 07/02/2018 [id number] [place], Ambulatory BMSBuilding:Antoinette Farfan [facility] Repository 07/02/2018 [id number] [place], Ambulatory BMSBuilding:Antoinette Farfan [facility] Repository 07/02/2018 [id number] [place], Ambulatory BMSBuilding:Antoinette Farfan MS.[facility] Repository 07/02/2018 [id number] [place], Ambulatory BMSBuilding:Antoinette Farfan [facility] Repository 07/02/2018 [id number] [place], Ambulatory BMSBuilding:Antoinette Farfan MS.[facility] Repository 07/02/2018 [id number] [place], Ambulatory BMSBuilding:Antoinette Farfan [facility] Repository 07/02/2018 [id number] [place], Ambulatory BMSBuilding:Antoinette Farfan MS.[facility] Repository 07/02/2018 [id number] [place], Ambulatory BMSBuilding:Antoinette Farfan [facility] Repository 07/02/2018 [id number] [place], Ambulatory BMSBuilding:Antoinette Farfan MS.[facility] Repository 07/02/2018/07/03/20 [id number] Ambulatory [address] Repository 05/01/2018/05/02/20 [id number] Ambulatory [address] Repository 02/05/2018/02/08/20 [id number] Ambulatory [address] Repository 02/05/2018/02/06/20 [id number] Ambulatory [address] Repository 11/09/2017/11/13/19 [id number] Ambulatory [address] Repository 08/07/2017/08/07/19 [id number] Ambulatory [address] Repository 08/07/2017/08/07/19 [id number] Ambulatory [address] Repository 07/27/2017/07/31/20 [id number] Ambulatory [address] Repository PAYERS PAYERS ENCOUNTER GUARANTOR PAYER SUBSCRIBER SOURCE 07/22/2018 NORRIS Giraldo Primary NORRIS [id number] Insurance:MUSLIM MILLERDOB: [facility] [id number]: Repository [id number]: 330 [id number] [phone] () Date: [address] [address]JZ: 07/22/2018 Secondary NOT GIVENUNK Raad Insurance:SELF PAY [facility] Number: Effective Repository Date:2018-07-22 07/18/2018 NORRIS Giraldo Primary NORRIS [id number] Insurance:MUSLIM MILLERDOB: [facility] [id number] Hospital[facility] Number: Repository [id number]: 330 [id number] [phone] () Date: [address] [address]BR: 07/18/2018 Secondary NOT GIVENUNK Raad Insurance:SELF PAY [facility] Number: Effective Repository Date:2018-07-12 07/18/2018 NORRIS Giraldo Primary NORRIS [id number] Insurance:MUSLIM MILLERDOB: [facility] [id number] Health Anderson HospitalPolmethodist jennie edmundson Number: Repository [id number]: 330 [id number] [phone] () Date: [address] [address]WR: 07/18/2018 Secondary NOT GIVENUNK [place] Insurance:SELF PAY [facility] Number: Effective Repository Date:2018-07-08 07/02/2018 NORRIS Giraldo Primary NORRIS [id number] Insurance:MUSLIM MILLERDOB: [facility] [id number]olicy Number: Repository [id number]: 330 [id number] [phone] (HP) Date: [address] [address]GX: 07/02/2018 Secondary NOT GIVENUNK [place] Insurance:SELF PAY [facility] Number: Effective Repository Date:2018-07-02 07/02/2018 NORRIS J Primary NORRIS J Raad [id number] Insurance:MUSLIM MILLERDOB: [facility] 2820-26-31[place]PRed[place], [place] GROUPPolicy Number: Repository [id number]: 330 [id number] [phone] (HP) Date: [address] [address]NV: 07/02/2018 Secondary NOT GIVENUNK [place] Insurance:SELF PAY [facility] Number: Effective Repository Date:2018-07-02 07/02/2018 NORRIS J Primary NORRIS J Raad [id number] Insurance:ABE STEINDOB: [facility] 8025-50-76HHIRed[place], [place] GROU[place]olicy Number: Repository [id number]: 330 [id number] [phone] (HP) Date: [address] [address]NS: 07/02/2018 Secondary NOT GIVENUNK [place] Insurance:SELF PAY [facility] Number: Effective Repository Date:2018-07-02 07/02/2018 NORRIS J Primary NORRIS J Raad [id number] Insurance:MUSLIM SARITADOB: [facility] 3620-05-20[place]QNRed[place], [place]OU[place]olicy Number: Repository [id number]: [phone] [id number] [phone] (HP) Date: [address] [address]UN: 07/02/2018 Secondary NOT GIVENUNK [place] Insurance:SELF PAY [facility] Number: Effective Repository Date:2018-07-02 07/02/2018 NORRIS Giraldo Primary NORRIS Kristal Raad [id number] Insurance:MUSLIM MILLERDOB: [facility] [id number], [place] GROUPPolicy Number: Repository [id number]: [phone] [id number] [phone] () Date: [address] [address]CP: 07/02/2018 Secondary NOT GIVENUNK Raad Insurance:SELF PAY [facility] Number: Effective Repository Date:2018-07-02 07/02/2018 NORRIS Giraldo Primary NORRIS Kristal Raad [id number] Insurance:MUSLIM MILLERDOB: [facility] 0867-04-70YJR[place], [place] GROUPPolicy Number: Repository [id number]: [phone] [id number] [phone] () Date: [facility] [address] [place] [address]OX: 07/02/2018 Secondary NOT GIVENUNK Raad Insurance:SELF PAY [facility] Number: Effective Repository Date:2018-07-02 07/02/2018 NORRIS Giraldo Primary NORRIS Kristal Raad [id number] Insurance:MUSLIM MILLERDOB: [facility] [id number], [place] GROUPPolicy Number: Repository [id number]: [phone] [id number] [phone] () Date: [address] [place] [address]UV: 07/02/2018 Secondary NOT GIVENUNK [place] Insurance:SELF PAY [facility] Number: Effective Repository Date:2018-07-02 07/02/2018 NORRIS Giraldo Primary NORRIS Kristal Raad [id number] Insurance:MUSLIM MILLERDOB: [facility] [id number] Health Anderson HospitalPolicy Number: Repository [id number]: 330 [id number] [phone] () Date: [address] [address]GX: 07/02/2018 Secondary NOT GIVENUNK Raad Insurance:SELF PAY [facility] Number: Effective Repository Date:2018-07-02 07/02/2018 NORRIS Giraldo Primary NORRIS [id number] Insurance:MUSLIM MILLERDOB: [facility] [id number], [place] GROUPPolicy Number: Repository [id number]: 330 [id number] [phone] () Date: [address] [address]VN: 07/02/2018 Secondary NOT GIVENUNK Raad Insurance:SELF PAY [facility] Number: Effective Repository Date:2018-07-02 07/02/2018 NORRIS Giraldo Primary NORRIS [id number] Insurance:MUSLIM MILLERDOB: [facility] 2552-00-58GKRRed[place], [place] GROUPPolicy Number: Repository [id number]: 330 [id number] [phone] () Date: [address] [address]GX: 07/02/2018 Secondary NOT GIVENUNK Raad Insurance:SELF PAY [facility] Number: Effective Repository Date:2018-07-02
== END 2018-07-06 18:01 | disposition home or self-care (01) | DRG 247 ==
LOC: ED 11:09 → PCU 13:30 → ICU 07-05 08:19 → PCU 07-08 08:02
PROVIDERS: Internal Medicine Cardiovascular Disease; Admitting Provider Family Medicine; Emergency Provider Emergency Medicine; Family Provider Family Medicine; PCP Family Medicine; Visit Provider Family Medicine
DX: I48.0 Paroxysmal atrial fibrillation (principal); I50.20 Unspecified systolic (congestive) heart failure; I25.110 Atherosclerotic heart disease of native coronary artery with unstable angina pectoris; K21.9 Gastro-esophageal reflux disease without esophagitis; E78.5 Hyperlipidemia, unspecified; I25.5 Ischemic cardiomyopathy; E11.65 Type 2 diabetes mellitus with hyperglycemia; I11.0 Hypertensive heart disease with heart failure; I48.92 Unspecified atrial flutter; D72.829 Elevated white blood cell count, unspecified; Z79.84 Long term (current) use of oral hypoglycemic drugs
CPT/HCPCS: 36415; 71045; 80048; 80061; 81002; 82962; 83880; 84443; 84484; 85025; 85027; 85347; 85610; 85730; 92928; 93005; 93306; 93458; 94640; 94762; 99152; 99153; 99285; C1760; J7030; Q9957; Q9967; A4216; C1725; C1769; C1874; C1887; C8929; C9600; J1940

== ENCOUNTER 2018-07-18 09:06 | Outpatient (RCR) | payer OTHER, SELFPAY ==
[2018-07-02 14:49] VITALS: BMI 39.6
[2018-07-08 10:54] LABS: International Normalized Ratio 1.6; Prothrombin Time (Protime)PT. 19.1 SECONDS (11.7-14.9)
[2018-07-08 11:18] LABS: Anion Gap 8 (5-15); BUN 39 mg/dL (7-18); BUN/Creat Ratio 23.8 RATIO (10-20); Calcium,Total 8.7 mg/dL (8.5-10.1); Chloride 103 mmol/L (98-107); Creatinine, Serum 1.64 mg/dL (0.70-1.30); EST Glomerular Filtration Rate 44 mL/min (>60); Est Glom Filt Rate - Afr Amer 53 mL/min (>60); Glucose 107 mg/dL (74-106); Potassium 4.2 mmol/L (3.5-5.1); Sodium Level 140 mmol/L (136-145)
[2018-07-12 10:01] LABS: Prothrombin Time (Protime)PT. 35.5 SECONDS (11.7-14.9)
[2018-07-12 10:13] LABS: Anion Gap 6 (5-15); BUN 37 mg/dL (7-18); BUN/Creat Ratio 21.5 RATIO (10-20); Calcium,Total 8.6 mg/dL (8.5-10.1); Chloride 103 mmol/L (98-107); Creatinine, Serum 1.72 mg/dL (0.70-1.30); EST Glomerular Filtration Rate 41 mL/min (>60); Est Glom Filt Rate - Afr Amer 50 mL/min (>60); Glucose 117 mg/dL (74-106); Potassium 4.2 mmol/L (3.5-5.1); Sodium Level 139 mmol/L (136-145)
[2018-07-12 10:53] LABS: International Normalized Ratio 3.5
[2018-07-18 09:59] LABS: Prothrombin Time (Protime)PT. 53.2 SECONDS (11.7-14.9)
[2018-07-18 10:24] LABS: BUN 39 mg/dL (7-18); Creatinine, Serum 1.87 mg/dL (0.70-1.30); Glucose 124 mg/dL (74-106)
[2018-07-18 10:25] LABS: ALB/GLOB Ratio 0.9 RATIO (0.9-2.4); AST(SGOT) 21 U/L (15-37); Alanine Aminotransfer ALT/SGPT 39 U/L (16-61); Albumin, Serum 3.3 g/dL (3.2-5.0); Alkaline Phosphatase 71 U/L (45-117); Anion Gap 7 (5-15); BUN/Creat Ratio 20.9 RATIO (10-20); Calcium,Total 8.7 mg/dL (8.5-10.1); Chloride 105 mmol/L (98-107); Cholesterol 110 mg/dL (200); EST Glomerular Filtration Rate 38 mL/min (>60); Est Glom Filt Rate - Afr Amer 45 mL/min (>60); Globulin 3.6 g/dL (2.2-4.2); High Density Lipoprotein 32 mg/dL; Potassium 4.3 mmol/L (3.5-5.1); Protein, Total 6.9 g/dL (6.4-8.2); Sodium Level 140 mmol/L (136-145); Triglycerides 171 mg/dL; Very Low Density Lipoprotein 34 mg/dL (5-40)
[2018-07-18 10:29] LABS: Hemoglobin A1c 7.1 % (4.2-6.3)
[2018-07-18 11:01] LABS: International Normalized Ratio 5.9
--- OUTSIDE RECORDS SUMMARY | 2018-08-31 15:02 | XMS RPT_ITS ---
:1940 Author Organization OHIP Support Name Relationship Address Phone R Unavailable Unavailable Unavailable SAMARA, CARLYLE Unavailable [address] + [place] [address] R Unavailable Unavailable Unavailable SAMARA, CARLYLE Unavailable [address] + [place] [address] R Unavailable Unavailable Unavailable SAMARA, CARLYLE Unavailable [address] + [place] [address] STEIN, RAY Unavailable Unavailable + [place] [address] R Unavailable Unavailable Unavailable STEIN, RAY Unavailable . + [place] [address] R Unavailable Unavailable Unavailable STEIN, RAY Unavailable Unavailable + [place] [address] R Unavailable Unavailable Unavailable STEIN, RAY Unavailable Unavailable + [place] [address] R Unavailable Unavailable Unavailable STEIN, RAY Unavailable Unavailable + [place] [address] R Unavailable Unavailable Unavailable STEIN, RAY Unavailable Unavailable + [place] [address] R Unavailable Unavailable Unavailable STEIN, RAY Unavailable Unavailable + [place] [address] R Unavailable Unavailable Unavailable STEIN, RAY Unavailable Unavailable + [place] [address] R Unavailable Unavailable Unavailable STEIN, RAY Unavailable Unavailable + [place] [address] R Unavailable Unavailable Unavailable STEIN, RAY Unavailable Unavailable + [place] [address] R Unavailable Unavailable Unavailable Care Team Providers Name Role Phone ANAM STRICKLAND (AUSTEN) Attending Unavailable SAUMYA FARIAS Referring Unavailable SAUMYA FARIAS Attending Unavailable SAUMYA FARIAS Referring Unavailable ANAM STRICKLAND (AUSTEN) Attending Unavailable SAUMYA FARIAS Referring Unavailable ELDERBROCK, SAUMYA Pelayo Attending Unavailable ELDERBROCK, SAUMYA Pelayo Referring Unavailable EM, ANAM (CHIEF CONTRACT OFFICER) Attending Unavailable EM, ANAM (CHIEF CONTRACT OFFICER) Attending Unavailable EM, ANAM (CHIEF CONTRACT OFFICER) Referring Unavailable ELDERBROCK, SAUMYA Pelayo Attending Unavailable ELDERBROCK, SAUMYA Pelayo Referring Unavailable ELDERBROCK, SAUMYA Pelayo Referring Unavailable Moodispaw, Kulwant Attending Unavailable Elderbrock, Saumya Primary Care Unavailable Elderbrock, Saumya Attending Unavailable Elderbrock, Saumya Referring Unavailable Elder[place], Saumya Primary Care Unavailable [place], [place] Primary [facility] Unavailable Kotsonis, Jhon F Admitting Unavailable Kotsonis, Jhon F Attending Unavailable Moodispaw, Kulwant Consulting Unavailable Kotsonis, Jhon F Admitting Unavailable Kotsonis, Jhon F Attending Unavailable [place], [place] Primary [facility] Unavailable Kotsonis, Jhon F Consulting Unavailable Kotsonis, Jhon F Admitting Unavailable Kotsonis, Jhon F Attending Unavailable [place], [place] [facility] Unavailable K[place]onis, Jhon F Consulting Unavailable [place]on[place], Jhon F Admitting Unavailable Moodispaw, Kulwant Attending Unavailable [place], [place] [facility] Unavailable Moodispaw, Kulwant Consulting Unavailable K[place]onis, Jhon F Consulting Unavailable Kotsonis, Jhon F Admitting Unavailable Kotsonis, Jhon F Attending Unavailable [place], [place] [facility] Unavailable Moodispaw, Kulwant Consulting Unavailable K[place]onis, Jhon F Consulting Unavailable [place]on[place], Jhon F Admitting Unavailable Moodispaw, Kulwant Attending Unavailable [place], [place] [facility] Unavailable Moodispaw, Kulwant Consulting Unavailable Kotsonis, Jhon F Consulting Unavailable Kotsonis, Jhon F Admitting Unavailable Kotsonis, Jhon F Attending Unavailable [place], [place] [facility] Unavailable Mood[place], Kulwant Consulting Unavailable [...] SOURCE 07/22/2018 Unknown I48.91 - [place], Active [place] Unspecified atrial [facility] fibrillation / Hospital I48.91(ICD-10) Repository 07/22/2018 Active Unspecified atrial NA Active [facility] fibrillation / [facility] [place] I48.91(ICD-10) Repository 07/18/2018 Unknown E11.9 - Type 2 K[place]on[place], Active [place] diabetes mellitus [facility] complications / Repository E11.9(ICD-10) 07/03/2018 Active Other forms of NA Active [facility] dyspnea / [facility] [place] R06.09(ICD-10) Repository 07/02/2018 Active Unknown / EMJAYNEANAM Active [facility] UNK(Unknown) (CHIEF CONTRACT OFFICER) [place] Repository 01/24/2017 Active Type 2 diabetes NA Active [facility] mellitus without [facility] [place] complications / Repository E11.9(ICD-10) 07/14/2015 Active Hyperlipidemia, NA Active [facility] unspecified / [place] E78.5(ICD-10) Repository 08/07/2017 Active Other long-term NA Active [facility] (current) drug [place] therapy / Repository Z79.899(ICD-10) PROCEDURES PROCEDURES No Procedure Records FoundRESULTS RESULTS PROTIME Collected: 07/22/2018 Status: F Source: [place] 7:48 AM [facility] REPOSITORY TYPE CODE TESTS RESULT OUT OF REFERENCE UNITS RANGE LAB PSEC 9.7-13.0 sec Test PT sent to [facility]. Result Comment: Account Credited HIDE LAB INR 0.9-1.3 Test sent to PT INR [facility]. Result Comment: Account Credited HIDE COMP METABOLIC PANEL Collected: 07/22/2018 Status: F Source: [place] 7:48 AM [facility] REPOSITORY TYPE CODE TESTS RESULT OUT OF REFERENCE UNITS RANGE LAB TP 6.3-8.0 g/dL Protein, Total 6.8 LAB ALB 3.9-4.9 g/dL Low Albumin 3.8 LAB CA 8.5-10.2 mg/dL Calcium, Total 8.8 LAB TBIL 0.2-1.3 mg/dL Bilirubin, Total 0.6 LAB ALKP 38-113 U/L Alkaline Phosphatase 62 LAB AST 14-40 U/L AST 25 LAB GLU 74-99 mg/dL Glucose High 114 Result Comment: The [place] Diabetes [employer] (ADA) provides guidance for cutoff [...] Standards of Medical Care in Diabetes 2016, [place] [employer]. Diabetes Care. 2016.39(Suppl 1). LAB [...] GFR. Performed By: #### CMP, HBA1C #### [facility] [address] [place], [place] [address] HEMOGLOBIN A1C Collected: 07/22/2018 Status: F Source: [place] 7:48 AM [facility] REPOSITORY TYPE CODE TESTS RESULT OUT OF REFERENCE UNITS RANGE LAB HGBA1C 4.3-5.6 % High Hemoglobin A1c 6.7 Result Comment: [place] [employer] guidelines indicate that patients with HgbA1c in the range 5.7-6.4% are at increased risk for development of diabetes, and intervention by lifestyle modification may be beneficial. HgbA1c greater or equal to 6.5% is considered diagnostic of diabetes. LAB HBA0 mg/dL Est. Average Glucose 146 Result Comment: eAG: (Estimated average glucose) is a calculated value from HgbA1c and is branch sales and service representative of the average blood glucose level in the last 2-3 month period. Performed By: #### CMP, HBA1C #### [facility] [address] [place], [place] [address] PROTHROMBIN TIME W/INR Collected: 07/22/2018 Status: F Source: [place] 7:48 AM [facility] REPOSITORY TYPE CODE TESTS RESULT OUT OF RANGE REFERENCE UNITS LAB L300.4150 11.7-14.9 SECONDS High PROTIME 27.9 LAB L300.4200 Normal INR 2.6 Performed By: #### L300.3900 #### [facility] [address] [place], [address] CR - HISTORY AND Observed: 07/18/2018 Status: F Source: [place] PHYSICAL 1:13 PM [facility] REPOSITORY [facility] Cardiac Rehab [address] [place] [address] CR - History AND Physical MR#: [id number] Acct: [id number] Name: NORRIS STEIN Kristal Rep #: [id number] : 1940 77 From: Cindy Graff RN [...] Advanced Directives - Advanced Directives Power of Burr Filer: No Living Will: No Advance Directives Information Provided: Yes Advance Directives on File: No DNR Order?:: No Past Medical History - Past Medical Illness Medical History: Past Medical History (Last Updated 07/18/18 @ 10:50 by Cindy Graff RN) 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 Left click = Reports ([place]) Review of Present Symptoms: Reports: Shortness of [...] Status: F Source: [place] 9:12 AM [facility] REPOSITORY Order Comment: DR. FARIAS WANTS THE [...] 7 Performed By: #### L500.4050, L500.4100 #### [facility] [address] [place], [place], [address] LIPID PROFILE Collected: 07/18/2018 Status: F Source: [place] 9:12 AM [facility] REPOSITORY Order Comment: DR. FARIAS WANTS THE [...] 34 Performed By: #### L500.4050, L500.4100 #### [facility] [address] [place], [place], [address] HEMOGLOBIN A1C Collected: 07/18/2018 Status: F Source: [place] 9:12 AM [facility] REPOSITORY Order Comment: DR. FARIAS WANTS THE A1C CMP LIPID WANTS THE CMP PT TYPE CODE TESTS RESULT OUT OF RANGE REFERENCE UNITS LAB L501.9985 4.2-6.3 % High HGB A1C 7.1 Performed By: #### L501.9985 #### [facility] [address] [place], [address] PROTHROMBIN TIME W/INR Collected: 07/18/2018 Status: F Source: [place] 9:12 AM [facility] REPOSITORY Order Comment: DR. FARIAS WANTS THE A1C CMP LIPID WANTS THE CMP PT TYPE CODE TESTS RESULT OUT OF REFERENCE UNITS RANGE LAB L300.4150 11.7-14.9 SECONDS High PROTIME 53.2 LAB L300.4200 High alert INR 5.9 Result Comment: CRITICAL VALUE VERIFIED. CALLED TO SORIN SKINNER 07/18/18 1101 Bernardo Szymanski. RESULTS READ BACK BY SAME. Performed By: #### L300.3900 #### [facility] [address] [place], [address] CNOV Observed: 07/16/2018 Status: COMPLETED Source: [place] 10:00 AM [facility] REPOSITORY Office Visit (FAMPWS) NORRIS STEIN ([id number]) 1940 M Date Time Provider Department 07/16/18 [...] Yes TRANSITION CARE MANAGEMENT (TCM) INITIAL CONTACT Edger Saw Operator Outreach ? Provider Action/FYI: ? - Returned call to pt to setup an appt for TCM within 7-14 days of discharge. ? - Pt reports feeling pretty well today. Notified MA that he completed blood work at [facility] (including INR) and we should be getting these results. Asks if other labs need completed. After review pt should only need A1c which can be done in the office or same day at the lab. ? - Pt states he will be follow up with Director Of Reservations at [facility] ([facility]), Dr. Ceja. Labs were placed today to complete at [facility] from Cardiology. ? - Pt has regularly scheduled OV on 07/31/18 and wonders if this appt will need kept. His and himself have appt's that day. Updated pt that we will discuss at upcoming appt to keep it scheduled as is. ? - INR today on lab work was 1.2 from results at [facility]. ? ? Initial contact with patient [...] Laterality Date - COLONOSCOP W/ OR W/O [facility] SPEC 04/08/15 Colonoscopy Family History No [...] OVER WITH 5YR LOOKBACK Completed Data reviewed [facility] External Records ASSESSMENT/PLAN: 1. Hospital discharge [...] Past Histories independently gathered by the clinical senior technical support engineer and the remaining scribed note accurately describes [...] at today?s visit. Referring Provider: SAUMYA FARIAS [[id number]] Allergies As of Date: 07/16/2018 (No Known [...] insulin (HCC) [E11.9] Order(s):UA DIP, URINE (POC) [[id number]] Order #: [id number]. #:[id number] albuterol (PROVENTIL) 2.5 mg /3 mL (0.083 %) nebulizer solutionUse 3 mL via nebulizer every 4 hours as needed for Wheezing/Shortness of Breath. Use over 5-15minutes.Disp: 50 VialRfl: 3 codeine-guaiFENesin (ROBITUSSIN AC) 10-100 mg/5 mL syrupTake 5 mL by mouth three times daily as needed for Cough for up to 30 days.Disp: 120 mLRfl: 1 OXYGEN CONCENTRATOR 2-3 LITER/MIN [[id number]] Order #: [id number] LORazepam (ATIVAN) 0.5 mg tabTake 1 tablet [...] Encounter Status:Closed by SAUMYA FARIAS MD on 07/16/18 PROGRESS Observed: 07/16/2018 Status: COMPLETED Source: [place] 9:55 AM [facility] REPOSITORY O ID: [id number] Author: Saumya Farias Service: (none) Author Type: [...] Yes TRANSITION CARE MANAGEMENT (TCM) INITIAL CONTACT Edger Saw Operator Outreach ? Provider Action/FYI: ? - Returned call to pt to setup an appt for TCM within 7-14 days of discharge. ? - Pt reports feeling pretty well today. Notified MA that he completed blood work at [facility] (including INR) and we should be getting these results. Asks if other labs need completed. After review pt should only need A1c which can be done in the office or same day at the lab. ? - Pt states he will be follow up with Director Of Reservations at [facility] ([facility]), Dr. Ceja. Labs were placed today to complete at [facility] from Cardiology. ? - Pt has regularly scheduled OV on 07/31/18 and wonders if this appt will need kept. His and himself have appt's that day. Updated pt that we will discuss at upcoming appt to keep it scheduled as is. ? - INR today on lab work was 1.2 from results at [facility]. ? ? Initial contact with patient [...] Laterality Date - COLONOSCOP W/ OR W/O [facility] SPEC 04/08/15 Colonoscopy Family History No [...] OVER WITH 5YR LOOKBACK Completed Data reviewed [facility] External Records ASSESSMENT/PLAN: 1. Hospital discharge [...] Past Histories independently gathered by the clinical senior technical support engineer and the remaining scribed note accurately describes [...] F Source: [place] PROFILE (BMP) 8:57 AM [facility] REPOSITORY Order Comment: PATIENT STATED THERE WAS AN A1C ORDERED FROM DR FARIAS, [facility] SUPERVISOR FERTILIZER PROCESSINGJORDON, STATES THEY ARE NOT DUE UNTIL AFTER [...] GAP 6 Performed By: #### L500.2500 #### [facility] [address] [place], [address] PROTHROMBIN TIME W/INR Collected: 07/12/2018 Status: F Source: [place] 8:57 AM [facility] REPOSITORY TYPE CODE TESTS RESULT OUT OF REFERENCE UNITS RANGE LAB L300.4150 11.7-14.9 SECONDS High PROTIME 35.5 LAB L300.4200 High alert INR 3.5 Result Comment: CRITICAL VALUE VERIFIED. CALLED TO OFFICE [facility] 07/12/18 1053 Migdalia Cordova. RESULTS READ BACK BY SAME . Performed By: #### L300.3900 #### [facility] [address] [facility] [place], [address] 12 LEAD ELECTROCARDIOGRAM Observed: 07/11/2018 Status: F Source: [place] 3:26 PM [facility] REPOSITORY [facility] Cardiovascular Services [address] [place] [address] 12 Lead EKG 07/04/18 1649 MR#: [id number] Acct: [id number] Name: NORRIS STEIN Kristal Rep #: [id number] : 1940 77 From: Kulwant Ceja MD Attending Dr: Jhon Zamorano MD Status: DIS IN Ordering Dr: Kulwant Ceja MD Date: 07/04/18 Location: [facility] Sex: M C Admitted: 07/02/18 Test Reason [...] normal ECG Confirmed by WALT BHANDARI, KULWANT ([id number]), publication editor AUBREY STEIN (56) on 07/11/2018 3:25:46 PM Referred By: Confirmed By:KULWANT CEJA MD 07/11/18 1525 Date Kulwant Ceja MD CC: Saumya Farias MD; Jhon Zamorano MD; Kulwant Ceja MD Signed 12 LEAD ELECTROCARDIOGRAM Observed: 07/11/2018 Status: F Source: [place] 3:26 PM [facility] REPOSITORY [facility] Cardiovascular Services [address] [place] [address] 12 Lead EKG 07/04/18 1649 MR#: [id number] Acct: [id number] Name: JASON STEINBERTHA Giraldo Rep #: [id number] : 1940 77 From: Kulwant Ceja MD Attending Dr: Jhon Zamorano MD Status: DIS IN Ordering Dr: Kulwant Ceja MD Date: 07/04/18 Location: [facility] Sex: M C Admitted: 07/02/18 Test Reason [...] ECG Confirmed by WALT BHANDARI, KULWANT ([id number]), publication editor AUBREY STEIN (56) on 07/11/2018 3:25:54 PM Referred By: Confirmed By:KULWANT CEJA MD 07/11/18 1525 Date Kulwant Ceja MD CC: Saumya Farias MD; Jhon Zamorano MD; Kulwant Ceja MD Signed 12 LEAD ELECTROCARDIOGRAM Observed: 07/11/2018 Status: F Source: [place] 3:14 PM [facility] REPOSITORY [facility] Cardiovascular Services [address] [place] [address] 12 Lead EKG 07/05/18 0657 MR#: [id number] Acct: [id number] Name: NORRIS STEIN Rep #: [id number] : 1940 77 From: Kulwant Ceja MD Attending Dr: Jhon Zamorano MD Status: DIS IN Ordering Dr: Kulwant Ceja MD Date: 07/05/18 Location: [facility] Sex: M C Admitted: 07/02/18 Test Reason [...] ECG Confirmed by WALT BHANDARI, KULWANT ([id number]), publication editor AUBREY STEIN (56) on 07/11/2018 3:13:42 PM Referred By: RADHA Confirmed By:KULWANT CEJA MD 07/11/18 1513 Date Kulwant Ceja MD CC: Saumya Farias MD; Jhon Zamorano MD; Kulwant Ceja MD Signed 12 LEAD ELECTROCARDIOGRAM Observed: 07/11/2018 Status: F Source: [place] 3:14 PM [facility] REPOSITORY [facility] Cardiovascular Services [address] [place] [address] 12 Lead EKG 07/05/18 0527 MR#: [id number] Acct: [id number] Name: NORRIS STEIN Rep #: [id number] : 1940 77 From: Kulwant Ceja MD Attending Dr: Jhon Zamorano MD Status: DIS IN Ordering Dr: Werner Wall MD Date: 07/05/18 Location: [facility] Sex: M C Admitted: 07/02/18 Test Reason [...] Abnormal ECG Confirmed by KULWANT CEJA MD ([id number]), publication editor AUBREY STEIN (56) on 07/11/2018 3:14:25 PM Referred By: RADHA Confirmed By:KULWANT CEJA MD 07/11/181513 Date Kulwant Ceja MD CC: Werner Wall MD; Saumya Farias MD; Jhon Zamorano MD Signed 12 LEAD ELECTROCARDIOGRAM Observed: 07/11/2018 Status: F Source: [place] 3:13 PM [facility] REPOSITORY [facility] Cardiovascular Services [address] [place] [address] 12 Lead EKG 07/05/18 0856 MR#: [id number] Acct: [id number] Name: NORRIS STEIN Rep #: [id number] : 1940 77 From: Kulwant Ceja MD Attending Dr: Jhon Zamorano MD Status: DIS IN Ordering Dr: Kulwant Ceja MD Date: 07/05/18 Location: [facility] Sex: M C Admitted: 07/02/18 Test Reason [...] normal ECG Confirmed by KULWANT CEJA MD ([id number]), publication editor AUBREY STEIN (56) on 07/11/2018 3:13:27 PM Referred By: WALT Confirmed By:KULWANT CEJA MD 07/11/18 410 Date Kulwant Ceja MD CC: Saumya Farias MD; Jhon Zamorano MD; Kulwant Ceja MD Signed 12 LEAD ELECTROCARDIOGRAM Observed: 07/11/2018 Status: F Source: [place] 2:19 PM [facility] Cardiovascular Services [address] [place] [address] 12 Lead EKG 07/06/18 0542 MR#: [id number] Acct: [id number] Name: NORRIS STEIN Rep #: [id number] : 1940 77 From: Kulwant Ceja MD Attending Dr: Jhon Zamornao MD Status: DIS IN Ordering Dr: Werner Wall MD Date: 07/06/18 Location: [facility] Sex: M C Admitted: 07/02/18 Test Reason : AM EKG Blood Pressure : / mmHG Vent. Rate : 054 BPM Atrial Rate : 054 BPM P-R Int : 172 ms QRS Dur : 092 ms QT Int : 480 ms P-R-T Axes : 063 051 054 degrees QTc Int : 455 ms Sinus bradycardia Otherwise normal ECG Confirmed by WALT BHANDARI, KULWANT ([id number]), publication editor AUBREY STEIN (56) on 07/11/2018 2:19:24 PM Referred By: DR ZAMORANO Confirmed By:KULWANT CEJA MD 07/11/18 1419 Date Kulwant Ceja MD CC: Werner Wall MD; Saumya Farias MD; Jhon Zamorano MD Signed 12 LEAD ELECTROCARDIOGRAM Observed: 07/09/2018 Status: F Source: [place] 3:50 PM [facility] Cardiovascular Services [address] [place] [address] 12 Lead EKG 07/03/18 0800 MR#: [id number] Acct: [id number] Name: NORRIS STEIN Rep #: [id number] : 1940 77 From: Kulwant Ceja MD Attending Dr: Jhon Zaomrano MD Status: DIS IN Ordering Dr: Jhon Zamorano MD Date: 07/03/18 Location: [facility] Sex: M C Admitted: 07/02/18 Test Reason : RHYTHM CHANGE Blood Pressure : / mmHG Vent. Rate : 134 BPM Atrial Rate : 144 BPM P-R Int : 000 ms QRS Dur : 080 ms QT Int : 350 ms P-R-T Axes : 000 057 077 degrees QTc Int : 522 ms Atrial flutter Abnormal ECG Confirmed by WALT BHANDARI, KULWANT ([id number]), publication editor AUBREY STEIN (56) on 07/09/2018 3:50:03 PM Referred By: RADHA Confirmed By:KULWANT CEJA MD 07/09/18 1550 Date Kulwant Ceja MD CC: Saumya Farias MD; Jhon Zamorano MD Signed 12 LEAD ELECTROCARDIOGRAM Observed: 07/09/2018 Status: F Source: [place] 3:49 PM [facility] REPOSITORY [facility] Cardiovascular Services [address] [place] [address] 12 Lead EKG 07/04/18 0611 MR#: [id number] Acct: [id number] Name: JASON STEINBERTHA Giraldo Rep #: [id number] : 1940 77 From: Kulwant Ceja MD Attending Dr: Jhon Zamorano MD Status: DIS IN Ordering Dr: Werner Wall MD Date: 07/04/18 Location: [facility] Sex: M C Admitted: 07/02/18 Test Reason [...] Abnormal ECG Confirmed by WALT BHANDARI, KULWANT ([id number]), publication editor AUBREY STEIN (56) on 07/09/2018 3:48:51 PM Referred By: DR CEJA Confirmed By:KULWANT CEJA MD 07/09/18 1548 Date Kulwant Ceja MD CC: Werner Wall MD; Saumya Farias MD; Jhon Zamorano MD Signed PROTHROMBIN TIME W/INR Collected: 07/08/2018 Status: F Source: [place] 10:18 AM [facility] REPOSITORY Order Comment: Send Results To: Dr. Ceja Reason for Laboratory Test Coumadin TYPE CODE TESTS RESULT OUT OF RANGE REFERENCE UNITS LAB L300.4150 11.7-14.9 SECONDS High PROTIME 19.1 LAB L300.4200 Normal INR 1.6 Performed By: #### L300.3900 #### [facility] [address] [place], [address] BASIC METABOLIC Collected: 07/08/2018 Status: F Source: [place] PROFILE (BMP) 10:18 AM [facility] REPOSITORY Order Comment: Send Results To: Dr. [...] GAP 8 Performed By: #### L500.2500 #### [facility] [address] [place], [address] DISCHARGE SUMMARY Observed: 07/06/2018 Status: F Source: [place] 7:39 PM [facility] REPOSITORY [facility] Medical Records Department [address] [place] [address] Discharge Summary 07/06/181927 MR#: [id number] Acct: [id number] Name: NORRIS STIEN Rep #: [id number] : 1940 77 From: Jhon Zamorano MD PCP: Aman BHANDARI,Saumya Status: DIS IN Y Location: [place] [address] Discharge Date and Diagnosis Date of Admission: [...] 50 Code Visit Inpatient Shelia RADER M: [id number] Disch Hosp 07/06/181938 <Electronically signed by Jhon Zamorano MD> Date Jhon Zamorano MD Cosigner Signature (if applicable): Date CC: Saumya Farias MD; Jhon Zamorano MD Signed DISCHARGE INSTRUCTION Observed: 07/06/2018 Status: F Source: [place] 5:04 PM [facility] REPOSITORY [facility] Medical Records Department [address] [place] [address] Instructions for Home/Discharge Instructions 07/06/18 1658 MR#: [id number] Acct: [id number] Name: NORRIS STEIN Rep #: [id number] : 1940 77 From: Jhon Zamorano MD [...] at your follow-up appointment, if applicable. 07/06/18 3645 <Electronically signed by Jhon Zamorano MD> Date Jhon Zamorano MD CC: Saumya Farias MD; Kulwant Ceja MD BEDSIDE GLUCOSE Collected: 07/06/2018 Status: F Source: [place] 4:38 PM [facility] REPOSITORY TYPE CODE TESTS RESULT OUT OF REFERENCE UNITS RANGE LAB L501.080 70-110 mg/dL High BEDSIDE GLU 117 Result Comment: MANAGEMENT OF PATIENT CARE PER NURSING PROTOCOL Performed By: #### L501.080 #### [facility] Point of Care [address] [place] [address] PARTIAL THROMBOPLAST Collected: 07/06/2018 Status: F Source: [place] TIME 4:15 PM [facility] REPOSITORY TYPE CODE TESTS RESULT OUT OF RANGE REFERENCE UNITS LAB L300.4310 24.1-36.2 Seconds Normal PTT 29.4 Performed By: #### L300.4310 #### [facility] [address] [place], [address] BEDSIDE GLUCOSE Collected: 07/06/2018 Status: F Source: [place] 11:19 AM [facility] REPOSITORY TYPE CODE TESTS RESULT OUT OF REFERENCE UNITS RANGE LAB L501.080 70-110 mg/dL High BEDSIDE GLU 256 Result Comment: MANAGEMENT OF PATIENT CARE PER NURSING PROTOCOL Performed By: #### L501.080 #### [facility] Point of Care [address] [place] [address] PARTIAL THROMBOPLAST Collected: 07/06/2018 Status: F Source: RAAD TIME 9:37 AM [facility] REPOSIT[facility] Order Comment: Comments: time sensitive heparin drip TYPE CODE TESTS RESULT OUT OF REFERENCE UNITS RANGE LAB L300.4310 24.1-36.2 Seconds High PTT 86.1 Performed By: #### L300.4310 #### [facility] [address] [place], [address] BEDSIDE GLUCOSE Collected: 07/06/2018 Status: F Source: RAAD 6:37 AM [facility] TYPE CODE TESTS RESULT OUT OF REFERENCE UNITS RANGE LAB L501.080 70-110 mg/dL High BEDSIDE GLU 135 Result Comment: MANAGEMENT OF PATIENT CARE PER NURSING PROTOCOL Performed By: #### L501.080 #### [facility] [place] [address] CBC W/DIFF, AUTOMATED Collected: 07/06/2018 Status: F Source: RAAD 3:08 AM [facility] TYPE CODE TESTS RESULT OUT OF [...] Lymph 1.87 Performed By: #### L100.0100 #### [facility] [address] [place], [address] PROTHROMBIN TIME W/INR Collected: 07/06/2018 Status: F Source: RAAD 3:08 AM [facility] Order Comment: Comments: time sensitive heparin drip TYPE CODE TESTS RESULT OUT OF RANGE REFERENCE UNITS LAB L300.4150 11.7-14.9 SECONDS High PROTIME 15.5 LAB L300.4200 Normal INR 1.2 Performed By: #### L300.3900, L300.4310 #### [facility] [address] [place], [address] PARTIAL THROMBOPLAST Collected: 07/06/2018 Status: F Source: RAAD TIME 3:08 AM [facility] Order Comment: Comments: time sensitive heparin drip TYPE CODE TESTS RESULT OUT OF REFERENCE UNITS RANGE LAB L300.4310 24.1-36.2 Seconds High PTT 79.6 Performed By: #### L300.3900, L300.4310 #### [facility] [address] [place], [address] BASIC METABOLIC Collected: 07/06/2018 Status: F Source: RAAD PROFILE (BMP) 3:08 AM [facility] TYPE CODE TESTS RESULT OUT OF [...] GAP 10 Performed By: #### L500.2500 #### [facility] [address] [place], [address] BEDSIDE GLUCOSE Collected: 07/06/2018 Status: F Source: RAAD 2:39 AM [facility] TYPE CODE TESTS RESULT OUT OF REFERENCE UNITS RANGE LAB L501.080 70-110 mg/dL High BEDSIDE GLU 152 Result Comment: MANAGEMENT OF PATIENT CARE PER NURSING PROTOCOL Performed By: #### L501.080 #### [facility] Point of Care [address] [place] [address] BEDSIDE GLUCOSE Collected: 07/05/2018 Status: F Source: RAAD 9:45 PM [facility] TYPE CODE TESTS RESULT OUT OF REFERENCE UNITS RANGE LAB L501.080 70-110 mg/dL High BEDSIDE GLU 119 Result Comment: MANAGEMENT OF PATIENT CARE PER NURSING PROTOCOL Performed By: #### L501.080 #### [facility] Point of Care [address] [place] [address] PARTIAL THROMBOPLAST Collected: 07/05/2018 Status: F Source: RAAD TIME 8:22 PM [facility] TYPE CODE TESTS RESULT OUT OF REFERENCE UNITS RANGE LAB L300.4310 24.1-36.2 Seconds High alert PTT 97.7 Result Comment: RESULTS CALLED TO JAI REGALADO 07/05/180 [facility] Pratt. REPORT READ BACK BY SAME . Performed By: #### L300.4310 #### [facility] [address] [place], [address] BEDSIDE GLUCOSE Collected: 07/05/2018 Status: F Source: RAAD 5:06 PM [facility] TYPE CODE TESTS RESULT OUT OF REFERENCE UNITS RANGE LAB L501.080 70-110 mg/dL High BEDSIDE GLU 172 Result Comment: MANAGEMENT OF PATIENT CARE PER NURSING PROTOCOL Performed By: #### L501.080 #### [facility] Point of Care [address] [place] [address] 12 LEAD ELECTROCARDIOGRAM Observed: 07/05/2018 Status: F Source: RAAD 2:25 PM [facility] RE[facility]ORY [facility] Cardiovascular Services [address] [place] [address] 12 Lead EKG 07/02/18 1037 MR#: [id number] Acct: [id number] Name: NORRIS STEIN Rep #: [id number] : 1940 77 From: Fernando Hendrix MD [...] Abnormal ECG Confirmed by CLOTILDE BHANDARI, FERNANDO ([id number]), publication editor FRANCISCO JAVIER FRAGOSO ([id number]) on 07/05/2018 2:25:02 PM Referred By: GO Confirmed By:FERNANDO HENDRIX MD 07/05/18 1425 Date Fernando Hendrix MD CC: Saumya Farias MD; Jhon Zamorano MD; Elroy Zhong DO Signed PARTIAL THROMBOPLAST Collected: 07/05/2018 Status: F Source: RAAD TIME 1:45 PM [facility] TYPE CODE TESTS RESULT OUT OF REFERENCE UNITS RANGE LAB L300.4310 24.1-36.2 Seconds High alert PTT 241.0 Result Comment: CRITICAL VALUE VERIFIED. CALLED TO JOSHUA PARTIDA 07/05/18 1415 Bernardo Szymanski. RESULTS READ BACK BY SAME. Performed By: #### L300.4310 #### [facility] [address] [facility] [address] [place], [place], [address] BEDSIDE GLUCOSE Collected: 07/05/2018 Status: F Source: RAAD 11:51 AM [facility] TYPE CODE TESTS RESULT OUT OF REFERENCE UNITS RANGE LAB L501.080 70-110 mg/dL High BEDSIDE GLU 167 Result Comment: MANAGEMENT OF PATIENT CARE PER NURSING PROTOCOL Performed By: #### L501.080 #### [facility] Point of Care [address] [place], [place] [address] BEDSIDE GLUCOSE Collected: 07/05/2018 Status: F Source: RAAD 7:10 AM [facility] TYPE CODE TESTS RESULT OUT OF REFERENCE UNITS RANGE LAB L501.080 70-110 mg/dL High BEDSIDE GLU 156 Result Comment: MANAGEMENT OF PATIENT CARE PER NURSING PROTOCOL Performed By: #### L501.080 #### [facility] Point of Care [address] [place], [place] [address] CBC-COMPLETE BLOOD CNT Collected: 07/05/2018 Status: F Source: RAAD NO DIFF 4:15 AM [facility] TYPE CODE TESTS RESULT OUT OF [...] MPV 10.4 Performed By: #### L100.0500 #### [facility] [address] [place], [place], [address] PROTHROMBIN TIME W/INR Collected: 07/05/2018 Status: F Source: RAAD 4:15 AM [facility] TYPE CODE TESTS RESULT OUT OF RANGE REFERENCE UNITS LAB L300.4150 11.7-14.9 SECONDS Normal PROTIME 14.8 LAB L300.4200 Normal INR 1.2 Performed By: #### L300.3900 #### [facility] [address] [place], [address] BASIC METABOLIC Collected: 07/05/2018 Status: F Source: [place] PROFILE (BMP) 4:15 AM [facility] TYPE CODE TESTS RESULT OUT OF [...] 13 Performed By: #### L500.2500, L500.4100 #### [facility] [address] [facility] [place], [place], [address] LIPID PROFILE Collected: 07/05/2018 Status: F Source: RAAD 4:15 AM [facility] TYPE CODE TESTS RESULT OUT OF [...] 19 Performed By: #### L500.2500, L500.4100 #### [facility] [address] [facility] [place], [place], [address] PARTIAL THROMBOPLAST Collected: 07/05/2018 Status: F Source: RAAD TIME 4:15 AM [facility] TYPE CODE TESTS RESULT OUT OF RANGE REFERENCE UNITS LAB L300.4310 24.1-36.2 Seconds Normal PTT 24.1 Performed By: #### L300.4310 #### [facility] [address] [facility] [place], [place], [address] BEDSIDE GLUCOSE Collected: 07/05/2018 Status: F Source: RAAD 2:52 AM [facility] TYPE CODE TESTS RESULT OUT OF REFERENCE UNITS RANGE LAB L501.080 70-110 mg/dL High BEDSIDE GLU 184 Result Comment: MANAGEMENT OF PATIENT CARE PER NURSING PROTOCOL Performed By: #### L501.080 #### [facility] Point of Care [address] [place] [address] BEDSIDE GLUCOSE Collected: 07/04/2018 Status: F Source: RAAD 9:36 PM [facility] TYPE CODE TESTS RESULT OUT OF REFERENCE UNITS RANGE LAB L501.080 70-110 mg/dL High BEDSIDE GLU 142 Result Comment: MANAGEMENT OF PATIENT CARE PER NURSING PROTOCOL Performed By: #### L501.080 #### [facility] Point of Care [address] [place] [address] BEDSIDE GLUCOSE Collected: 07/04/2018 Status: F Source: RAAD 4:42 PM [facility] TYPE CODE TESTS RESULT OUT OF REFERENCE UNITS RANGE LAB L501.080 70-110 mg/dL High BEDSIDE GLU 329 Result Comment: MANAGEMENT OF PATIENT CARE PER NURSING PROTOCOL Performed By: #### L501.080 #### [facility] Point of Care [address] [place] [address] BEDSIDE GLUCOSE Collected: 07/04/2018 Status: F Source: RAAD 12:10 PM [facility] TYPE CODE TESTS RESULT OUT OF REFERENCE UNITS RANGE LAB L501.080 70-110 mg/dL High BEDSIDE GLU 190 Result Comment: MANAGEMENT OF PATIENT CARE PER NURSING PROTOCOL Performed By: #### L501.080 #### [facility] Point of Care [address] [place] [address] ACT ACTIVATED CLOTTING Collected: 07/04/2018 Status: F Source: RAAD TIME 8:42 AM [facility] TYPE CODE TESTS RESULT OUT OF RANGE REFERENCE UNITS LAB L9100.0100 74-137 sec High ACTk CLOT 235 TIME Performed By: #### L9100.0100 #### [facility] Point of Care [address] [place] [address] BEDSIDE GLUCOSE Collected: 07/04/2018 Status: F Source: RAAD 6:51 AM [facility] TYPE CODE TESTS RESULT OUT OF REFERENCE UNITS RANGE LAB L501.080 70-110 mg/dL High BEDSIDE GLU 209 Result Comment: MANAGEMENT OF PATIENT CARE PER NURSING PROTOCOL Performed By: #### L501.080 #### [facility] Point of Care [address] [place], [place] [address] BASIC METABOLIC Collected: 07/04/2018 Status: F Source: RAAD PROFILE (BMP) 5:00 AM [facility] TYPE CODE TESTS RESULT OUT OF [...] GAP 9 Performed By: #### L500.2500 #### [facility] [address] [place], [address] CBC W/DIFF, AUTOMATED Collected: 07/04/2018 Status: F Source: RAAD 5:00 AM [facility] TYPE CODE TESTS RESULT OUT OF [...] Lymph 0.80 Performed By: #### L100.0100 #### [facility] [address] [facility] [address] [place], [place], [address] PROTHROMBIN TIME W/INR Collected: 07/04/2018 Status: F Source: [place] 5:00 AM [facility] TYPE CODE TESTS RESULT OUT OF RANGE REFERENCE UNITS LAB L300.4150 11.7-14.9 SECONDS Normal PROTIME 13.6 LAB L300.4200 Normal INR 1.0 Performed By: #### L300.3900, L300.4310 #### [facility] [address] [facility] [address] [place], [place], [address] PARTIAL THROMBOPLAST Collected: 07/04/2018 Status: F Source: RAAD TIME 5:00 AM [facility] TYPE CODE TESTS RESULT OUT OF RANGE REFERENCE UNITS LAB L300.4310 24.1-36.2 Seconds Normal PTT 28.3 Performed By: #### L300.3900, L300.4310 #### [facility] [address] [place], [address] CHEST 1 VIEW Observed: 07/04/2018 Status: F Source: RAAD (PORTABLE) 1:36 AM [facility] REPOSITORY [facility] Imaging Services [address] [place] [address] Chest 1 View (Portable) MR#: [id number] Acct: [id number] Name: NORRIS STEIN Rep #: [id number] : 1940 M 77 From: Bernardo Juarez MD PCP: Saumya Farias MD Status: ADM IN Study: Chest 1 View (Portable) Date of Exam: 07/04/18 Exam# [id number] Ordering Dr: Jonnathan Watson MD HISTORY: SOBShort [...] CC: Jonnathan Watson MD; Saumya Farias MD Drafter Cartographic: Signed URINALYSIS, ROUTINE Collected: 07/03/2018 Status: F Source: RAAD (DIPSTICK) 11:45 PM [facility] Order Comment: Order Date: 07/03/18 How [...] ESTERASE Negative Performed By: #### L400.2010 #### [facility] [address] [place], [address] BEDSIDE GLUCOSE Collected: 07/03/2018 Status: F Source: [place] 9:29 PM [facility] TYPE CODE TESTS RESULT OUT OF REFERENCE UNITS RANGE LAB L501.080 70-110 mg/dL High BEDSIDE GLU 153 Result Comment: MANAGEMENT OF PATIENT CARE PER NURSING PROTOCOL Performed By: #### L501.080 #### [facility] Point of Care [address] [place] [address] CONSULTATION Observed: 07/03/2018 Status: F Source: [place] 7:33 PM [facility] REPOS[facility]ORY [facility] Medical Records Department [address] [place] [address] Consultation 07/03/181916 MR#: [id number] Acct: [id number] Name: NORRIS STEIN Kristal Rep #: [id number] : 1940 77 From: Kulwant Ceja MD PCP: Saumya Farias MD Status: ADM IN Y Location: [place] [address] Problem List (1) Atrial fibrillation and flutter [...] atrial fibrillation and subsequently referred to the [facility] for further evaluation care. Based upon review [...] % (Auto) 61.5, Lymph % (Auto) 27.9, [place] % (Auto) 6.8, Eos % (Auto) 3.4, [...] BEDSIDE GLUCOSE Collected: 07/03/2018 Status: F Source: [place] 4:12 PM [facility] TYPE CODE TESTS RESULT OUT OF REFERENCE UNITS RANGE LAB L501.080 70-110 mg/dL High BEDSIDE GLU 116 Result Comment: MANAGEMENT OF PATIENT CARE PER NURSING PROTOCOL Performed By: #### L501.080 #### [facility] Point of Care [address] [place] [address] ECHOCARDIOGRAM COMPLETE Observed: 07/03/2018 Status: F Source: [place] 1:04 PM [facility] REPOSITORY [facility] Cardiovascular Services [address] [place] [address] Echo Complete W/ Contrast 07/03/18 1031 MR#: [id number] Acct: [id number] Name: NORRIS STEIN Rep #: [id number] : 1940 77 From: Werner Wall MD Attending Dr: Jhon Zamorano MD Status: ADM IN Ordering Dr: Jhon Zamorano MD Date: 07/02/18 Location: [facility] Sex: M C Admitted: 07/02/18 Reason For [...] Dictated: 07/03/18 1031 Date Transcribed: 07/03/18 1304 Drafter Cartographic: Signed BEDSIDE GLUCOSE Collected: 07/03/2018 Status: F Source: RAAD 12:28 PM [facility] TYPE CODE TESTS RESULT OUT OF REFERENCE UNITS RANGE LAB L501.080 70-110 mg/dL High BEDSIDE GLU 154 Result Comment: MANAGEMENT OF PATIENT CARE PER NURSING PROTOCOL Performed By: #### L501.080 #### [facility] Point of Care [address] [place], [place] [address] BEDSIDE GLUCOSE Collected: 07/03/2018 Status: F Source: RAAD 6:39 AM [facility] TYPE CODE TESTS RESULT OUT OF REFERENCE UNITS RANGE LAB L501.080 70-110 mg/dL High BEDSIDE GLU 112 Result Comment: MANAGEMENT OF PATIENT CARE PER NURSING PROTOCOL Performed By: #### L501.080 #### [facility] Point of Care [address] [place] [address] BASIC METABOLIC Collected: 07/03/2018 Status: F Source: RAAD PROFILE (BMP) 5:08 AM [facility] TYPE CODE TESTS RESULT OUT OF [...] GAP 5 Performed By: #### L500.2500 #### [facility] [address] [place], [address] CBC W/DIFF, AUTOMATED Collected: 07/03/2018 Status: F Source: [place] 5:08 AM [facility] TYPE CODE TESTS RESULT OUT OF [...] Lymph 1.89 Performed By: #### L100.0100 #### [facility] [address] [place], [address] BEDSIDE GLUCOSE Collected: 07/02/2018 Status: F Source: [place] 9:46 PM [facility] TYPE CODE TESTS RESULT OUT OF REFERENCE UNITS RANGE LAB L501.080 70-110 mg/dL High BEDSIDE GLU 121 Result Comment: MANAGEMENT OF PATIENT CARE PER NURSING PROTOCOL Performed By: #### L501.080 #### [facility] Point of Care [address] [place] [address] HISTORY AND PHYSICAL Observed: 07/02/2018 Status: F Source: [place] EXAM 5:19 PM [facility] REPOS[facility]ORY [facility] Medical Records Department [address] [place] [address] History and Physical 07/02/18 1654 MR#: [id number] Acct: [id number] Name: NORRIS STEIN Rep #: [id number] : 1940 77 From: Jhon Zamorano MD PCP: Saumya Farias MD Status: ADM IN Y Location: [place] [address] ADDENDUM by Jhon Zamorano MD on 07/02/18 [...] Cardiac Code Visit Inpatient E AND M: 38003 Init Hosp L3 07/02/18 1717 <Electronically signed by Jhon Zamorano MD> Date Jhon Zamorano MD Cosigner Signature: Date (if applicable) CC: Saumya Farias MD; Jhon Zamorano MD Signed CBC W/DIFF, AUTOMATED Collected: 07/02/2018 Status: F Source: RAAD 2:05 PM [facility] TYPE CODE TESTS RESULT OUT OF [...] Lymph 1.65 Performed By: #### L100.0100 #### [facility] [address] [place], [address] EMERGENCY DEPARTMENT Observed: 07/02/2018 Status: F Source: [place] SUMMARY 12:31 PM [facility] REPOSITORY [facility] Medical Records Department [address] [place] [address] Emergency Department Summary 07/02/18 1228 MR#: [id number] Acct: [id number] Name: NORRIS STEIN Rep #: [id number] : 1940 77 From: Elroy Zhong DO [...] new onset] This note was generated with [employer] dictation software. It may contain incorrect words, [...] problems, contact your Primary Care Provider. Call [employer] [facility] ([phone]) or report to the closest Emergency Room. Call 911 if necessary. 07/02/18 1231 <Electronically signed by Elroy Zhong DO> Date Elroy Zhong DO Cosigner Signature (If Indicated): Date CC: Saumya Farias MD CHEST 1 VIEW Observed: 07/02/2018 Status: F Source: [place] (PORTABLE) 10:48 AM [facility] REPOSITORY [facility] Imaging Services [address] [place] [address] Chest 1 View (Portable) MR#: [id number] Acct: [id number] Name: NORRIS STEIN Rep #: [id number] : 1940 M 77 From: Antonio Corrigan MD PCP: Saumya Farias MD Status: REG ER Study: Chest 1 View (Portable) Date of Exam: 07/02/18 Exam# [id number] Ordering Dr: Elroy Zhong DO STUDY: X-RAY [...] CC: Saumya Farias MD; Elroy Zhong DO Drafter Cartographic: Signed CBC W/DIFF, AUTOMATED Collected: 07/02/2018 Status: F Source: RAAD 10:40 AM [facility] TYPE CODE TESTS RESULT OUT OF [...] Lymph 1.23 Performed By: #### L100.0100 #### [facility] [address] [facility] [place], [place], [address] BASIC METABOLIC Collected: 07/02/2018 Status: F Source: [place] PROFILE (BMP) 10:40 AM [facility] TYPE CODE TESTS RESULT OUT OF [...] GAP Performed By: #### L500.2500, L501.4010 #### [facility] [address] [facility] [place], [place], [address] TROPONIN-I Collected: 07/02/2018 Status: F Source: [place] 10:40 AM [facility] TYPE CODE TESTS RESULT OUT OF RANGE REFERENCE UNITS LAB L501.4010 <0.045 ng/mL Normal < 0.015 TROPONIN-I Result Comment: TROPONIN-I EXPECTED VALUES <0.045 Negative 0.045 - 0.590 Consistent with Cardiac Damage > OR = 0.600 Critical Value Not every elevated troponin is indicative of GA. These values should be used with clinical judgement in examining the patient's clinical picture for diagnosis. To establish a diagnosis of GA versus myocardial injury, there must be a demonstrated rise and/or fall in the troponin values, in addition to ischemic symptoms, EKG changes, new regional wall motion abnormality, and/or angiographical evidence. PLEASE NOTE: REFERENCE RANGES EDITED 17 Performed By: #### L500.2500, L501.4010 #### [facility] [address] [place], [place], [address] PROTHROMBIN TIME W/INR Collected: 07/02/2018 Status: F Source: [place] 10:40 AM [facility] REPOSITORY TYPE CODE TESTS RESULT OUT OF RANGE REFERENCE UNITS LAB L300.4150 11.7-14.9 SECONDS Normal PROTIME 13.9 LAB L300.4200 Normal INR 1.1 Performed By: #### L300.3900, L300.4310 #### [facility] [address] [place], [address] PARTIAL THROMBOPLAST Collected: 07/02/2018 Status: F Source: RAAD TIME 10:40 AM [facility] REPOS[facility] TYPE CODE TESTS RESULT OUT OF RANGE REFERENCE UNITS LAB L300.4310 24.1-36.2 Seconds Normal PTT 28.6 Performed By: #### L300.3900, L300.4310 #### [facility] [address] [place], [address] BNP,B-TYPE NATRIURETIC Collected: 07/02/2018 Status: F Source: RAAD PEPTIDE 10:40 AM [facility] REPOS[facility]ORY TYPE CODE TESTS RESULT OUT OF RANGE REFERENCE UNITS LAB L503.6620 0-100 pg/mL High B-TYPE 125.0 ELÍAS PEP Performed By: #### L503.6620 #### [facility] [address] [place], [address] THYROID STIM HORMONE Collected: 07/02/2018 Status: F Source: RAAD (TSH) 10:40 AM [facility] REPOS[facility] TYPE CODE TESTS RESULT OUT OF RANGE REFERENCE UNITS LAB L501.9520 0.358-3.74 uIU/mL High TSH 5.16 Performed By: #### L501.9520 #### [facility] [address] [place], [address] ECG COMPLETE W Observed: 07/02/2018 Status: F Source: [facility] 10:00 AM [facility] REPOSITORY NAME : NORRIS STEIN PID : [id number] : 1940 Gender : Male Race : ORD : [id number] Procedure Date : Jul 02 2018 10:00:23 Edit Date : Jul 03 2018 16:36:48 Diagnosis:ATRIAL FLUTTER WITH VARIABLE A-V BLOCK ST ELEVATION CONSIDER INFERIOR INJURY OR ACUTE INFARCT ACUTE GA / STEMI ABNORMAL ECG Confirmed by SANFORD MADRIGAL D.O. ([id number]) on 07/03/2018 4:36:20 PM Ventricular Rate : 133 BPM Atrial Rate : 293 BPM QRS Duration : 90 ms Q-T Interval : 356 ms QTC Calculation(Bezet) : 529 ms R Cost : 66 degrees T Cost : 76 degrees Test Reason : Location : 185 : [facility] Overread By : SANFORD MADRIGAL D.O. Edited By : SANFORD MADRIGAL D.O. Referred By : ANAM STRICKLAND Acquired by : BOBBY PINEDA Observed: 07/02/2018 Status: COMPLETED Source: [place] 9:29 AM [facility] REPOSITORY HNO ID: [id number] Author: Anam (Video Engineer) Em Service: (none) Author Type: Nurse Practitioner [...] Laterality Date - COLONOSCOP W/ OR W/O [facility] SPEC 04/08/15 Colonoscopy Family History No [...] patient. Squad was called, report called to [facility]. Patient transported in stable condition. Anam Strickland APRN.CHIEF CONTRACT OFFICER CNOV Observed: 07/02/2018 Status: COMPLETED Source: [place] 9:20 AM [facility] REPOSITORY Office Visit (FAMPWS) NORRIS STEIN ([id number]) 1940 M Date Time Provider Department 07/02/18 9:20 AM ANAM STRICKLAND ([facility]) FAMPWS During your visit today, we [...] patient. Squad was called, report called to [facility]. Patient transported in stable condition. Anam Strickland APRN.AUSTEN Referring Provider: SELF [[id number]] Allergies As of Date: 07/02/2018 (No Known Allergies) Date Reviewed: 07/02/2018 Reviewed by: Analisa Pineda Can Crimper - Fully Assessed Reason for Visit: Breathing Problem [17] Primary Visit Diagnosis:Orthopnea [R06.01] Other Visit Diagnoses:LOCKWODO (dyspnea on exertion) [R06.09] Leg swelling [M79.89] Order(s):ECG COMPLETE W INTERPRETATION [ECG01] Order #: [id number] FUTURE Prescriptions as of 07/02/2018 Sig: CODEINE [...] on 07/02/18 Observed: 05/01/2018 Status: F Source: [place] URINE CULTURE 8:41 AM [facility] REPOSITORY Sp. 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 No further workup. --> ABNORMAL ALERT 50,000 - <100,000 CFU/ml --> ABNORMAL ALERT Lactose negative gram negative bacilli --> ABNORMAL ALERT Insignificant colony count. No further workup. --> ABNORMAL ALERT Performed By: #### URCUL #### [facility] [address] [place], [place] [address] PROGRESS Observed: 05/01/2018 Status: COMPLETED Source: [place] 8:25 AM [facility] REPOSITORY HNO ID: [id number] Author: Anam Strickland Service: (none) Author Type: [...] No fevers or chills. Is taking an lscp-wfb-gwcspky Cystek from a local pharmacy. Does have a prior history of UTIs. Past medical history, appointments, medications, allergies reviewed. Previous Medical History PAST MEDICAL HISTORY Diagnosis Date - DM (diabetes mellitus) (HCC) - Essential hypertension, benign - Other and unspecified hyperlipidemia - Other specified family circumstances Previous Surgical History PAST SURGICAL HISTORY Procedure Laterality Date - COLONOSCOP W/ OR W/O [facility] SPEC 04/08/15 Colonoscopy Family History No [...] Neg neg Ketones, Urine Neg neg Specific Welcome, Ur 1.005 - 1.030 1.010 Hemoglobin/Blood,Ur Neg [...] MG TABLET follow-up as needed. Anam Strickland APRN.CHIEF CONTRACT OFFICER CNOV Observed: 05/01/2018 Status: COMPLETED Source: [place] 8:20 AM [facility] RE[facility] NORRIS STEIN ([id number]) 1940 M Date Time Provider Department 05/01/18 8:20 AM ANAM STRICKLAND ([place]) ZORAIDA During your visit today, we recorded the following information about you: Temperature Pulse Blood pressure Weight 98.3 degrees 60/minute 112/80 108.9 kg nAam Strickland APRN.CNP 05/01/2018 8:49 AM Addendum Chief [...] No fevers or chills. Is taking an tkns-sor-cnxwljp Cystek from a local pharmacy. Does have a prior history of UTIs. Past medical history, appointments, medications, allergies reviewed. Previous Medical History PAST MEDICAL HISTORY Diagnosis Date - DM (diabetes mellitus) (HCC) - Essential hypertension, benign - Other and unspecified hyperlipidemia - Other specified family circumstances Previous Surgical History PAST SURGICAL HISTORY Procedure Laterality Date - COLONOSCOP W/ OR W/O [facility] SPEC 04/08/15 Colonoscopy Family History No [...] Neg neg Ketones, Urine Neg neg Specific Welcome, Ur 1.005 - 1.030 1.010 Hemoglobin/Blood,Ur Neg [...] MG TABLET follow-up as needed. Anam Strickland APRN.CHIEF CONTRACT OFFICER Referring Provider: SELF [200] Allergies As of Date: 05/01/2018 (No Known Allergies) Date Reviewed: 02/05/2018 Reviewed by: Lamar Love Ma - Fully Assessed Reason for Visit: UTI [116] Cmt: x 4 days - burning with urination - taking cystek - no back pain Primary Visit Diagnosis:Dysuria [R30.0] Order(s):UA DIP B/O [1158816] Order #: [id number] URINE CULTURE [SQURCUL] Order #: [id number] sulfamethoxazole-trimethoprim (BACTRIM DS) 800-160 mg per tabletTake [...] 05/01/18 CNCO Observed: 02/11/2018 Status: COMPLETED Source: [place] 12:00 AM [facility] REPOSITORY Letter Sadia [place] Department of Internal Medicine [address], [place] [address] Norris Stein [address] [facility] [address] [facility] #: [id number] 02/11/2018 Below is a message concerning your lab results. If you should have any questions please feel free to contact the office at [phone] : Please inform patient that his Hgb A1c improved to 6.7%. Cholesterol panel looks good. Kidney function is stable. Continue on current dose of medications, follow up in 6 months with labs prior. ? Anam Strickland APRN.[place]EN Thank you Sincerely Your [facility] health Team CNOV Observed: 02/05/2018 Status: COMPLETED Source: [place] 9:40 AM [facility] REPOSITORY Office Visit ([facility]) NORRIS STEIN ([id number]) 1940 M Date Time Provider Department 02/05/18 9:40 AM [facility] During your visit today, we recorded [...] Laterality Date - COLONOSCOP W/ OR W/O [facility] SPEC 04/08/15 Colonoscopy Family History No [...] 2018 9:34 AM. Referring Provider: SAUMYA FARIAS [[id number]] Allergies As of Date: 02/05/2018 (No Known [...] 11 COMP METABOLIC PANEL [SQCMP] Order #: [id number] FUTURE LIPID PANEL BASIC [SQLIPB] Order #: [id number] FUTURE HGB A1C [IEDCZ1N] Order #: [id number] FUTURE Prescriptions as of 02/05/2018 Sig: CODEINE [...] 02/05/18 PROGRESS Observed: 02/05/2018 Status: COMPLETED Source: [place] 9:34 AM [facility] REPOSITORY HNO ID: [id number] Author: Saumya Farias Service: (none) Author Type: [...] Laterality Date - COLONOSCOP W/ OR W/O [facility] SPEC 04/08/15 Colonoscopy Family History No [...] METABOLIC PANEL Collected: 02/05/2018 Status: F Source: [place] 8:47 AM [facility] REPOSITORY TYPE CODE TESTS RESULT OUT OF REFERENCE UNITS RANGE LAB TP 6.3-8.0 g/dL Low Protein, Total 6.1 LAB ALB 3.9-4.9 g/dL Albumin 4.3 LAB CA 8.5-10.2 mg/dL Calcium, Total 9.4 LAB TBIL 0.2-1.3 mg/dL Bilirubin, Total 0.4 LAB ALKP 36-108 U/L Alkaline Phosphatase 60 LAB AST 14-40 U/L AST 22 LAB GLU 74-99 mg/dL Glucose High 126 Result Comment: The [place] Diabetes Association (ADA) provides guidance for cutoff [...] Standards of Medical Care in Diabetes 2016, [place] Diabetes Association. Diabetes Care. 2016.39(Suppl 1). LAB [...] Performed By: #### CMP, LIPB, HBA1C #### [facility] [address], [place] [address] LIPID PANEL, BASIC Collected: 02/05/2018 Status: F Source: [place] 8:47 AM [facility] REPOSITORY TYPE CODE TESTS RESULT [...] Desk Reference: National Heart, Lung, and Blood [place]. National Institutes of Health. 2001: NIH Publication No. 01-3305. 2. An International Atherosclerosis Society position paper: global recommendations for the management of dyslipidemia: executive summary, Atherosclerosis. 2014: 232(2):410-413. Performed By: #### CMP, LIPB, HBA1C #### [facility] [address], [place] [address] HEMOGLOBIN A1C Collected: 02/05/2018 Status: F Source: [place] 8:47 AM [facility] REPOSITORY TYPE CODE TESTS RESULT OUT OF REFERENCE UNITS RANGE LAB HGBA1C 4.3-5.6 % High Hemoglobin A1c 6.7 LAB HBA0 mg/dL Est. Average Glucose 146 Result Comment: eAG: (Estimated average glucose) is a calculated value from HgbA1c and is branch sales and service representative of the average blood glucose level in the last 2-3 month period. Performed By: #### CMP, LIPB, HBA1C #### [facility] [address], [place] [address] CNOV Observed: 11/09/2017 Status: COMPLETED Source: [place] 3:00 PM [facility] REPOSITORY [facility] NORRIS STEIN Kristal ([id number]) 1940 M Date Time Provider Department 11/09/17 3:00 PM ANAM STRICKLAND ([facility]) [facility] During your visit today, we recorded the following information about you: Temperature Pulse Respiration Blood pressure 98.8 degrees 80/minute 20/minute 130/72 Weight 104.8 kg Anam Strickland APRN.[facility] 11/09/2017 3:23 PM Signed Chief Complaint [...] Laterality Date - COLONOSCOP W/ OR W/O [facility] SPEC 04/08/15 Colonoscopy Family History No [...] occurs. Follow up as needed. Anam Strickland APRN.CHIEF CONTRACT OFFICER Referring Provider: SELF [200] Allergies As of Date: 11/09/2017 (No Known Allergies) Date Reviewed: 11/09/2017 Reviewed by: Analisa Pineda Can Crimper - Fully Assessed Reason for Visit: Rash [...] 11/09/17 PROGRESS Observed: 11/09/2017 Status: COMPLETED Source: [place] 2:55 PM [facility] REPOSITORY HNO ID: [id number] Author: Anam (Austen) Em Service: (none) Author [...] Laterality Date - COLONOSCOP W/ OR W/O [facility] SPEC 04/08/15 Colonoscopy Family History No [...] occurs. Follow up as needed. Anam Strickland APRN.CHIEF CONTRACT OFFICER PROGRESS Observed: 08/07/2017 Status: COMPLETED Source: [place] 10:45 AM [facility] REPOSITORY HNO ID: [id number] Author: Saumya Farias Service: (none) Author Type: [...] Laterality Date - COLONOSCOP W/ OR W/O [facility] SPEC 04/08/15 Colonoscopy Family History No [...] AM. CNOV Observed: 08/07/2017 Status: COMPLETED Source: [place] 10:20 AM [facility] REPOSITORY [facility] NORRIS STEIN ([id number]) 1940 M Date Time Provider Department 08/07/17 [...] Laterality Date - COLONOSCOP W/ OR W/O [facility] SPEC 04/08/15 Colonoscopy Family History No [...] 2017 10:45 AM. Referring Provider: SAUMYA FARIAS [[id number]] Allergies As of Date: 08/07/2017 (No Known [...] 1 COMP METABOLIC PANEL [SQCMP] Order #: [id number] FUTURE LIPID PANEL BASIC [SQLIPB] Order #: [id number] FUTURE HGB A1C [XGNAV0K] Order #: [id number] FUTURE Prescriptions as of 08/07/2017 Sig: METOPROLOL [...] 08/07/17 CBC Collected: 08/07/2017 Status: F Source: [place] 8:19 AM [facility] REPOSITORY TYPE CODE TESTS RESULT OUT OF [...] nRBC <0.01 Performed By: #### CBC #### [facility] [address], [place] [address] ALBUMIN/CREAT RATIO Collected: 08/07/2017 Status: F Source: [place] 8:19 AM [facility] REPOSITORY TYPE CODE TESTS RESULT OUT OF [...] 1994, 25:107) Performed By: #### UACR #### [facility] [address], [place] [address] COMP METABOLIC PANEL Collected: 08/07/2017 Status: F Source: [place] 8:18 AM [facility] REPOSITORY TYPE CODE TESTS RESULT OUT OF REFERENCE UNITS RANGE LAB TP 6.3-8.0 g/dL Protein, Total 7.2 LAB ALB 3.9-4.9 g/dL Low Albumin 3.8 LAB CA 8.5-10.2 mg/dL Calcium, Total 9.1 LAB TBIL 0.2-1.3 mg/dL Bilirubin, Total 0.4 LAB ALKP 36-108 U/L Alkaline Phosphatase 71 LAB AST 14-40 U/L AST 25 LAB GLU 74-99 mg/dL Glucose High 132 Result Comment: The [place] Diabetes Association (ADA) provides guidance for cutoff [...] Standards of Medical Care in Diabetes 2016, [place] Diabetes Association. Diabetes Care. 2016.39(Suppl 1). LAB [...] Performed By: #### CMP, LIPB, HBA1C #### [facility] [address], [place] [address] LIPID PANEL, BASIC Collected: 08/07/2017 Status: F Source: [place] 8:18 AM [facility] REPOSITORY TYPE CODE TESTS RESULT OUT OF [...] Performed By: #### CMP, LIPB, HBA1C #### [facility] [place] [id number] HEMOGLOBIN A1C Collected: 08/07/2017 Status: F Source: [place] 8:18 AM [facility] REPOSITORY TYPE CODE TESTS RESULT OUT OF REFERENCE UNITS RANGE LAB HGBA1C 4.3-5.6 % High Hemoglobin A1c 7.2 LAB HBA0 mg/dL Est. Average Glucose 160 Result Comment: eAG: (Estimated average glucose) is a calculated value from HgbA1c and is branch sales and service representative of the average blood glucose level in the last 2-3 month period. Performed By: #### CMP, LIPB, HBA1C #### [facility] [place] [id number] PROGRESS Observed: 08/03/2017 Status: COMPLETED Source: [place] 10:50 AM [facility] REPOSITORY HNO ID: [id number] Author: Ela Briceño) Salma Service: (none) Author Type: Edger Saw Operator Type: Progress Notes Filed: 08/03/2017 10:52 AM Note Text: The patient has been identified by name and date of : YES I have scheduled the patient for an appointment on Visit date The patient will report to the lab prior to the visit.118 CMP Urine Albumin Lipid HgbA1c PHMA Documentation 08/01/2017 Opts out of [facility] No Appointments Scheduled Scheduled PCP Appt DM2 with No BOOGIE Record Requested Opthy Appt No DM2 with No Urine Alb Lab Ordered DM2 with No DFE Record Requested Ela Marsh MA PROGRESS Observed: 08/01/2017 Status: COMPLETED Source: [place] 1:08 PM [facility] REPOSITORY HNO ID: [id number] Author: Ela Marsh Service: (none) Author Type: Edger Saw Operator Type: Progress Notes Filed: 08/03/2017 10:48 AM Note Text: I have attempted to contact this patient by phone to return their call, schedule an appointment, discuss lab results, etc. Left message to call back. PROGRESS Observed: 08/01/2017 Status: COMPLETED Source: [place] 1:08 PM [facility] REPOSITORY HNO ID: [id number] Author: Ela Marsh Service: (none) Author Type: Edger Saw Operator Type: Progress Notes Filed: 08/03/2017 10:48 AM Note Text: The patient has been identified by name and date of : YES I have scheduled the patient for an appointment on 08/07/2017. The patient will report to the lab prior to the visit. I have pended the following lab orders: Urine albumin CMP Lipid hgbA1c PHMA Documentation 08/01/2017 Opts out of [facility] No Appointments Scheduled Scheduled PCP Appt DM2 with No BOOGIE Record Requested Opthy Appt No DM2 with No Urine Alb Lab Ordered DM2 with No DFE Record Requested Ela Marsh MA PROGRESS Observed: 08/01/2017 Status: COMPLETED Source: [place] 1:00 PM [facility] REPOSITORY HNO ID: [id number] Author: Ela Marsh Service: (none) Author Type: Edger Saw Operator Type: Progress Notes Filed: 08/03/2017 10:48 AM [...] ordered CNPTOUTREACH Observed: 07/31/2017 Status: COMPLETED Source: [place] 12:00 [facility] REPOSITORY Patient Outreach ([facility]AMPWS) NORRIS STEIN ([id number]) 1940 M Date Time Provider Department 07/31/17 [...] Assessed Reason for Visit: PHMA/Care Gap Outreach [[id number]] Prescriptions as of 07/31/2017 Sig: CIPROFLOXACIN 500 [...] 08/03/17 TONY Observed: 07/27/2017 Status: COMPLETED Source: [place] 10:20 AM [facility] REPOSITORY Office Visit ([facility]AMPWS) NORRIS STEIN ([id number]) 1940 M Date Time Provider Department 07/27/17 [...] Laterality Date - COLONOSCOP W/ OR W/O [facility] SPEC 04/08/15 Colonoscopy Family History No [...] Neg neg Ketones, Urine Neg neg Specific Welcome, Ur 1.005 - 1.030 1.005 Hemoglobin/Blood,Ur Neg [...] Neg neg Ketones, Urine Neg neg Specific Welcome, Ur 1.005 - 1.030 1.015 Hemoglobin/Blood,Ur Neg [...] Diagnosis:Urgency of urination [R39.15] Order(s):UA DIP B/O [1643019] Order #: [id number] URINE CULTURE [SQURCUL] Order #: [id number] ciprofloxacin HCl (CIPRO) 500 mg tabletTake 1 [...] 07/27/17 PROGRESS Observed: 07/27/2017 Status: COMPLETED Source: [place] 9:30 AM [facility] REPOSITORY HNO ID: [id number] Author: Anam (Austen) AUSTEN Strickland Service: (none) [...] Laterality Date - COLONOSCOP W/ OR W/O [facility] SPEC 04/08/15 Colonoscopy Family History No [...] Neg neg Ketones, Urine Neg neg Specific Welcome, Ur 1.005 - 1.030 1.005 Hemoglobin/Blood,Ur Neg [...] Neg neg Ketones, Urine Neg neg Specific Welcome, Ur 1.005 - 1.030 1.015 Hemoglobin/Blood,Ur Neg [...] Strickland CNP Observed: 07/27/2017 Status: F Source: [place] URINE CULTURE 9:30 AM [facility] REPOSITORY Sp. 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 No further workup. --> ABNORMAL ALERT 10,000 - <50,000 CFU/ml --> ABNORMAL ALERT Lactose negative gram negative bacilli --> ABNORMAL ALERT Insignificant colony count. No further workup. --> ABNORMAL ALERT Performed By: #### URCUL #### [facility] [address] [place], [place] [address] CNPTOUTREACH Observed: 07/24/2017 Status: COMPLETED Source: [place] 12:00 AM [facility] REPOSITORY Patient Outreach ([employer]IS) NORRIS STEIN ([id number]) 1940 Date Time Provider Department 07/24/17 [facility] During your visit today, we recorded [...] Order(s):ALBUMIN/CREAT RATIO RND UR [SQUACR] Order #: [id number] FUTURE CBC [SQCBC] Order #: [id number] FUTURE Prescriptions as of 07/24/2017 Sig: CEPHALEXIN [...] SEVERITY SOURCE 07/02/2018 Drug No Known Unknown [facility] [place] Allergy/416 Allergies/K23275 Hospital 284968(SNOM 0388(RXNORM) Repository ED CT) Drug NO KNOWN [facility] Class/45636 ALLERGIES Main Presho 1003(SNOMED Repository CT) ENCOUNTERS ENCOUNTERS ADMIT/DISCHARGE ACCOUNT ADMITTING ENCOUNTER LOCATION SOURCE NUMBER CLASS 07/22/2018 [id number] [facility] ing:LABSPEC Repository 07/22/2018/07/22/20 [id number] Ambulatory [address] Repository 07/18/2018 [id number] [facility] ing:CR Repository 07/18/2018 [id number] [facility] ing:LAB Repository 07/16/2018/07/17/20 [id number] Ambulatory [address] Repository 07/03/2018/07/03/20 [id number] Ambulatory [address] Repository 07/02/2018/07/06/20 [id number] [place], Inpatient Raad Farfan [facility] Hospital ing:PCURoom: Repository HCN812Yns: 1 07/02/2018 [id number] [place]is, Ambulatory BMSBuilding:Antoinette Farfan MS.[facility] Repository 07/02/2018 [id number] [place], Ambulatory BMSBuilding:Antoinette Farfan MS.[facility] Repository 07/02/2018 [id number] [place], Ambulatory BMSBuilding:Antoinette Farfan MS.CF.[facility] Repository 07/02/2018 [id number] [place], Ambulatory BMSBuilding:Antoinette Farfan MS.[facility] Repository 07/02/2018 [id number] [place], Ambulatory BMSBuilding:Antoinette Farfan MS.CF.[facility] Repository 07/02/2018 [id number] [place], Ambulatory BMSBuilding:Antoinette Farfan MS.[facility] Repository 07/02/2018 [id number] [place], Ambulatory BMSBuilding:Antoinette Farfan MS.CF.[facility] Repository 07/02/2018 [id number] [place], Ambulatory BMSBuilding:Antoinette Farfan MS.[facility] Repository 07/02/2018 [id number] [place], Ambulatory BMSBuilding:Antoinette Farfan MS.CF.[facility] Repository 07/02/2018/07/03/20 [id number] Ambulatory [address] Repository 05/01/2018/05/02/20 [id number] Ambulatory [address] Repository 02/05/2018/02/08/20 [id number] Ambulatory [address] Repository 02/05/2018/02/06/20 [id number] Ambulatory [address] Repository 11/09/2017/11/13/19 [id number] Ambulatory [address] Repository 08/07/2017/08/07/19 [id number] Ambulatory [address] Repository 08/07/2017/08/07/19 [id number] Ambulatory [address] Repository 07/27/2017/07/31/20 [id number] Ambulatory [address] Repository PAYERS PAYERS ENCOUNTER GUARANTOR PAYER SUBSCRIBER SOURCE 07/22/2018 NORRIS Giraldo Primary NORRIS [id number] Insurance:BUDDHIST MILLERDOB: [facility] [id number] Number: Repository [id number]: 330 [id number] [phone] () Date: [address] [address]DK: 07/22/2018 Secondary NOT GIVENUNK Raad Insurance:SELF PAY [facility] Number: Effective Repository Date:2018-07-22 07/18/2018 NORRIS Giraldo Primary NORRIS [id number] Insurance:BUDDHIST MILLERDOB: [facility] [id number] HealthcarePoly Number: Repository [address]Jbv: 330 [id number] [phone] () Date: [address] [address]XB: 07/18/2018 Secondary NOT GIVENUNK Raad Insurance:SELF PAY [facility] Number: Effective Repository Date:2018-07-12 07/18/2018 NORRIS Giraldo Primary NORRIS [id number] Insurance:BUDDHIST MILLERDOB: [facility] [id number] HealthcarePol[facility] Number: Repository [id number]: 330 [id number] [phone] () Date: [address] [address]MG: 07/18/2018 Secondary NOT GIVENUNK [place] Insurance:SELF PAY [facility] Number: Effective Repository Date:2018-07-08 07/02/2018 NORRIS Giraldo Primary NORRIS STEIN4609 Insurance:BUDDHIST MILLERDOB: [facility] [id number], [place] GROUPPolicy Number: Repository [id number]: 330 [id number] [phone] (HP) Date: [address] [address]KY: 07/02/2018 Secondary NOT GIVENUNK [place] Insurance:SELF PAY [facility] Number: Effective Repository Date:2018-07-02 07/02/2018 NORRIS J Primary NORRIS J Raad [id number] Insurance:BUDDHIST MILLERDOB: [facility] [id number], [place] GROUPPolicy Number: Repository [id number]: 330 [id number] [phone] (HP) Date: [address] [address]RH: 07/02/2018 Secondary NOT GIVENUNK [place] Insurance:SELF PAY [facility] Number: Effective Repository Date:2018-07-02 07/02/2018 NORRIS J Primary NORRIS J Raad [id number] Insurance:ABE STEINDOB: [facility] 8540-80-29VYK[place], [place] GROUPPolicy Number: Repository [id number]: 330 [id number] [phone] (HP) Date: [address] [address]NF: 07/02/2018 Secondary NOT GIVENUNK [place] Insurance:SELF PAY [facility] Number: Effective Repository Date:2018-07-02 07/02/2018 NORRIS J Primary NORRIS J Raad [id number] Insurance:BUDDHIST SARITADOB: [facility] [id number], [place] GROUPPolicy Number: Repository [id number]: [phone] [id number] [phone] (HP) Date: [address] [address]HK: 07/02/2018 Secondary NOT GIVENUNK [place] Insurance:SELF PAY [facility] Number: Effective Repository Date:2018-07-02 07/02/2018 NORRIS Giraldo Primary NORRIS Kristal Raad [id number] Insurance:BUDDHIST MILLERDOB: [facility] [id number], [place] GROUPPolicy Number: Repository [id number]: [phone]) [id number] [phone] () Date: [address] [address]AX: 07/02/2018 Secondary NOT GIVENUNK Raad Insurance:SELF PAY [facility] Number: Effective Repository Date:2018-07-02 07/02/2018 NORRIS Giraldo Primary NORRIS Kristal Raad [id number] Insurance:BUDDHIST MILLERDOB: [facility] [id number], [place] GROUPPolicy Number: Repository [id number]: [phone] [id number] [phone] () Date: [facility] [address] [place] [address]HD: 07/02/2018 Secondary NOT GIVENUNK Raad Insurance:SELF PAY [facility] Number: Effective Repository Date:2018-07-02 07/02/2018 NORRIS Giraldo Primary NORRIS Kristal Raad [id number] Insurance:BUDDHIST MILLERDOB: [facility] [id number], [place] GROUPPolicy Number: Repository [id number]: [phone] [id number] [phone] () Date: [address] [place] [address]J: 07/02/2018 Secondary NOT GIVENUNK [place] Insurance:SELF PAY [facility] Number: Effective Repository Date:2018-07-02 07/02/2018 NORRIS Giraldo Primary NORRIS Kristal Raad [id number] Insurance:BUDDHIST MILLERDOB: [facility] [id number] HealthcarePolicy Number: Repository [id number]: 330 [id number] [phone] () Date: [address] [address]FU: 07/02/2018 Secondary NOT GIVENUNK Raad Insurance:SELF PAY [facility] Number: Effective Repository Date:2018-07-02 07/02/2018 NORRIS Giraldo Primary NORRIS STEIN4609 Insurance:BUDDHIST MILLERDOB: [facility] [id number], [place] GROUPPolicy Number: Repository [id number]: 330 [id number] [phone] () Date: [address] [address]YR: 07/02/2018 Secondary NOT GIVENUNK Raad Insurance:SELF PAY [facility] Number: Effective Repository Date:2018-07-02 07/02/2018 NORRIS Giraldo Primary NORRIS STEIN4609 Insurance:BUDDHIST MILLERDOB: [facility] [id number], [place] GROUPPolicy Number: Repository [id number]: 330 [id number] [phone] () Date: [address] [address]XI: 07/02/2018 Secondary NOT GIVENUNK Raad Insurance:SELF PAY [facility] Number: Effective Repository Date:2018-07-02
== END 2018-07-18 10:06 | disposition home or self-care (01) ==
LOC: LAB 09:06
PROVIDERS: Family Provider Family Medicine; PCP Family Medicine; Referring Provider Family Medicine; Visit Provider Family Medicine
DX: E11.9 Type 2 diabetes mellitus without complications (principal); Z79.01 Long term (current) use of anticoagulants
CPT/HCPCS: 36415; 80048; 80053; 80061; 83036; 85610

== ENCOUNTER → 2018-07-18 09:58 | Outpatient (CLI) | payer OTHER, SELFPAY ==
[2018-07-02 14:49] VITALS: BMI 39.6
--- NOTE | 2018-07-18 10:23 | PCM.CR.HP2 ---
CR - History & Physical - General Arrival date:: 07/18/18 Arrival time:: 10:00 Date of Referral:: 07/08/18 Date of CR Evaluation:: 07/18/18 Referring Physician: Dr. Godoy Primary Diagnosis: Presence of coronary angioplasty implant and graft - History of Present Cardiac Event Onset Date: Enter Onset Date of cardiac illnesses in Comment field below Current stable Angina Pectoris:: No Acute Myocardial Infarction within 12 months:: No Coronary Artery Bypass Graft:: No Heart valve replacement or repair:: No PTCA or coronary stenting:: Yes Heart or Heart-Lung Transplant:: No Heart Failure EF <35%:: No Interventions with present event:: PCI with stent Were there any complications?: none - Medications Home Medications: Ambulatory Orders Medication Instructions Recorded Aspirin [Aspirin, Baby] 81 mg PO DAILY@0800 07/02/18 Metformin HCl [Glucophage] 500 mg PO BID 07/02/18 Omeprazole [Prilosec] 20 mg PO DAILY 07/02/18 Amiodarone HCl [Cordarone] 200 mg PO BID #28 tab 07/06/18 Amiodarone HCl [Cordarone] 200 mg PO DAILY #30 tab 07/06/18 Amiodarone HCl [Cordarone] 200 mg PO TID #21 tab 07/06/18 Atorvastatin Calcium [Lipitor] 40 mg PO QHS #30 tab 07/06/18 Furosemide [Lasix] 20 mg PO DAILY #30 tab 07/06/18 Metoprolol Tartrate [Lopressor 100 mg PO BID #60 tab 07/06/18 (beta monica)] Ticagrelor [Brilinta] 90 mg PO BID #60 tab 07/06/18 Warfarin [Coumadin] 4 mg PO DAILY@1700 #30 tab 07/06/18 - Allergies Allergies/Adverse Reactions: Allergies No Known Allergies Allergy (Verified 07/02/18 10:30) - Sleep Disorder Evaluation Hx of Sleep Apnea: No Do you snore loudly (louder than talking or can be heard through closed doors)?: No Do you often feel tired/ fatigued/ sleepy during daytime?: Yes Has anyone observed you stop breathing during sleep?: Yes History of Hypertension (for STOP score): Yes - referral requested STOP Results: Positive Advanced Directives - Advanced Directives Power of Air Intercept Controller Supervisor: No Living Will: No Advance Directives Information Provided: Yes Advance Directives on File: No DNR Order?:: No Past Medical History - Past Medical Illness Medical History: Past Medical History (Last Updated 07/18/18 @ 10:50 by Cindy Graff RN) Atherosclerotic heart disease of [place] coronary artery without angina pectoris (Chronic) I25.10 Encounter for routine circumcision Z41.2 - Past Surgical History Surgical History: Past Surgical History (Last Updated 07/18/18 @ 10:50 by Cindy Graff RN) History of hernia repair Z98.890, Z87.19 History of hip replacement Z96.649 History of partial knee replacement Z96.659 Surgical History: total hip arthroplasty, total knee arthroplasty Social History - Smoking History Smoking Status: Never smoker Hx Smoking Exposure: No - Alcohol Use Alcohol Usage: No - Substance Abuse Hx Substance Use: No - Occupation Occupation (List type of work in comments):: Retired - Hobbies, Recreation, Social Activities Hobbies: Reading, Other - puzzels Recreational Activities: I am able to engage in most, but not all activities Social Environment - Status Marital Status: - Current Living Arrangements Living Environment:: Family, Spouse - Children How many children do you have?: 7 Do any of your children live nearby?: Yes - Safety Do you feel safe in your surroundings?: Yes Review of Systems - Review of Systems Hints: Right click = Denies ([place]). Left click = Reports ([place]) Review of Present Symptoms: Reports: Shortness of Breath with Exertion, Dizziness/Lightheadedness, Fatigue, Heart Arrhythmia/Irregularities, Appetite - Normal. Denies: Shortness of Breath at Rest, PVD, Operative Discomfort, Angina, Wound Healing, Appetite - Special Diet, Sleep - Normal - Pain Is Patient Pain Free?: Yes Pain Location: none Pain Level: 0/10 Risk Factor Assessment - Vital Signs Temperature: 98.6 F Respiratory Rate: 24 Pulse Ox: 94 Blood Pressure: 128/72 Nailbeds:: pink - Pulse Pulse Rate: 50 Pulse Rhythm: Regular - Hypertension Blood Pressure Sitting - Right Arm: 128/72 - Stress Stress: Recent - Diabetes Diabetic History: Medication Dependent Nutrition Referral for Diabetes: No - Obesity Height: 5 ft 5 in Weight:: 239 lb Weight in Pounds: 239.0 lbs Weight Source: Stated by Patient Body Mass Index (BMI): 39.7 Nutritional Referral for Obesity: No - Physical Inactivity Physical Inactivity: None - Risk Stratification Risk Guidelines: Lowest Risk: Risk Factor for Smoking, Risk Factor for Hypertension, Moderate Risk: Risk Factor for Diabetes, Risk Factor for Sedentary Lifestyle, Risk Factor for Depression, Highest Risk: Risk Factor for Obesity - BMI 39.7 - For Smoking Smoking Risk Guidelines: Smoking Low Risk: None or quit greater than 6 months ago. Smoking Moderate Risk: Smoker or quit 6 months or less ago. Smoking High Risk: Smoker - For Dyslipidemia Dyslipidemia Risk Guidelines: Low Risk: Moderate Risk: High Risk: 15-25% fat 25.1-29% fat >/= 30% fat. <7% sat fat 7-9% sat fat >9% sat fat. <150 mg chol 150-299 mg chol >/= 300 mg chol. LDL <100 LDL 100-129 LDL >/= 130. Chol/HDL ratio <5.0 Chol/HDL ratio 5.0-6.0 Chol/HDL ratio >6.0. Triglycerides <100 Triglycerides 100-149 Triglycerides >/= 150 - For Diabetes Mellitus Diabetes Risk Guidelines: Diabetes Low Risk: HgA1c <6.5% and/or FBG <120. Diabetes Moderate Risk: HgA1c 6.6-7.9% and/or FBG 120-180. Diabetes High Risk: HgA1c >/= 8% and/or FBG >180 - For Obesity/Overweight Obesity/Overweight Risk Guidelines: Obesity Low Risk: BMI <25.0. Obesity Moderate Risk: BMI 25-29.9. Obesity High Risk: BMI >/= 30.0 - For Hypertension Hypertension Risk Guidelines: Hypertension Low Risk: Systolic <120 and Diastolic <80. Hypertension Moderate Risk: Systolic 120-139 and Diastolic 80-89. Hypertension High Risk: Systolic >/= 140 and Diastolic >/= 90 - For Sedentary Lifestyle Sedentary Lifestyle Risk Guidelines: Sedentary Lifestyle Low Risk: >/= 1,500 kcal/week. Sedentary Lifestyle Moderate Risk: 700-1,499 kcal/week. Sedentary Lifestyle High Risk: < 700 kcal/week - For Depression Depression Risk Guidelines: Depression Low Risk: Not clinically depressed. Depression Moderate Risk: Mildly depressed. Depression High Risk: Clinically depressed Motivation - Motivation to Participate On a scale of 1 to 10, how prepared are you to commit to attending program?: 10 What do you see as barriers to successfully being able to complete the program?: not being able to do the physical exercise What do you see as the benefits of succesfully completing the program? In other words, what do you hope to get out of participating in the program?: less sob, strengthening Are there issues you are dealing with that will interfere with completing the program?: none Do you have a spouse or signficant other, family or friends who will help support you to complete the program?: yes
--- NOTE | 2018-07-18 10:24 | PCM.CR.ITP ---
General Information - General Information Admitting Diagnosis: PCI with stent - Education/Goals Barriers to Learning: None Individual Counseling: Initial Assessment: Overweight/Obesity, Diabetes, Metabolic Syndrome (as evidenced by 3 of 5 A-E below), Hypertension, Sedentary Lifestyle, Stress Cardiac Rehabilitation Goals: 1. Maintain the individual as the primary focus of care. 2. To improve the patient's quality of life. 3. Identification of cardiac risk factors and provide cardiac risk factor management. 4. Enhance the psychosocial status of the patient. 5. Reconditioning enough to allow the patient to resume customary activities. 6. Control symptoms of cardiac disease Scale for measuring improvement of personal goals: Enter appropriate number in Comments. 2 = Unchanged. 3 = Slightly Better. 4 = Moderate Improvement. 5 = Met my Goal Personal Goals: Initial Assessment: Improve management of stress and emotions, Improve energy level, Improve knowledge of cardiac disease, Improve muscle strength and endurance, Improve diet and eating habits (eat healthier), Control risk factors (learn risk factor modification) Exercise - Initial Assessment - Visit Date of Eval: 07/18/18 - Stages of Change Stages of Change:: Action - Exercise Prescription Mode:: Treadmill, Biodyne, Rower, Airdyne, NuStep, Arm Ergometer Angina with exercise?: No - Hypertension Do any of the following apply?: Yes, Medication Resting Blood Pressure:: 128/72 - Intervention Home Exercise/Activity Goal:: Sitting Time <3 hrs/day - Education Goals:: Warm-up, RPE SHARLA Scale, S/S, Safe Exercise, Self-Monitoring Nutrition - Initial Assessment - Program Goals Nutrition Program Goals: LDL <70. Total Cholesterol <200. HDL >45. Triglycerides <150. HgbA1C <7%. BMI <25 - Visit Date of Assessment:: 07/18/18 - Stages of Change Stages of Change:: Action - Diabetes Diabetes:: Yes Insulin: No Do you monitor your blood sugar at home?: No - Weight Management Height: 5 ft 5 in Weight:: 239 lb - Intervention Referral to dietitian:: No Referral to Diabetic Clinic:: Yes Will attend diet classes:: Yes - Education Gave educational materials for:: Signs & symptoms of hypoglycemia, Signs & symptoms of hyperglycemia, Relate diabetes to coronary artery disease, Healthy eating Tobacco - Initial Assessment - Program Goals Tobacco Program Goals: Complete smoking cessation. Attend education classes. Improve Knowledge Test score - Stage of Change Stages of Change:: Action - Family Support Do you have family support?: Yes - Tobacco Use Tobacco Use: Non-smoker Psychosocial - Initial Assess - Target Goals Target Goals: Assess presence or absence of depression. Using a valid screening tool, maximizes coping skills. Positive support system - Stages of Change Stages of Change:: Action - Psychosocial Test Tool Used:: HANDS Depression Questionnaire - Intervention PS - Interventions: Yes Attend Stress Management Classes, No Referral to Mental Health, No Referral to [facility] Case Management, No Referral to Physician, No Uses Stress Management Skills - Education Gave educational materials for:: Coping techniques, Signs & symptoms of depression, Stress management, Relaxation techniques - Patient/Program Goal Preventative Medication(s):: Aspirin, AMBER inhibitor, Clopidogrel, Beta monica, Statin/lipid - Assistive Devices Assistive Devices:: Cane Fall Risk Assessed:: Yes Patient Health Questionnaire Initial Assessment 1. Little interest or pleasure in doing things: More than half the days 2. Feeling down, depressed, or hopeless: Several days 3. Trouble falling or staying asleep, or sleeping too much: Nearly every day 4. Feeling tired or having little energy: Nearly every day 5. Poor appetite or overeating: More than half the days 6. Feeling bad about yourself -- or that you are a failure or have let yourself or your family down: Not at all 7. Trouble concentrating on things, such as reading the newspaper or watching television: More than half the days 8. Moving or speaking so slowly that other people could have noticed. Or the opposite - being so fidgety or restless that you have been moving around a lot more than usual: Several days 9. Thoughts that you would be better off , or of hurting yourself in some way: Not at all - 14 Total Score: 14 JERMAINE-Q SV Test - Statements CAD is a disease of the arteries in the heart: False Examples of risk factors for heart disease: True Angina is chest pain or discomfort: I Don't Know The benefits of resistance training include: True Eating more meat and dairy products: False Anti-platelet medications such as aspirin are important: True The only effective way to manage stress: False An exercise warm-up slowly increases heart rate: I Don't Know Prepared, processed foods usually have high sodium: True Depression is common after a heart attack: True The statin medications lower cholesterol: True To control blood pressure, lower the amount of sodium: I Don't Know If someone gets chest discomfort during walking: False Transfats are partially hydrogenated vegetable oils: True Sleep apnea that is not treated increases the risk: False To control cholesterol, one should become a vegetarian: False Someone knows if he/she is exercising at the right level: True Diabetes cannot be prevented with exercise & health eating: True Stress is a large risk for heart attack: I Don't Know A diet that can help lower blood pressure is rich in: True - Total Score Total Correct Responses: 15 Self-Efficacy Initial Assessment We would like to know how confident you are in doing certain activities. Please select your confidence level for:: Select your confidence level for the following using the scale 1-10 where 1 is not at all confident and 10 is totally confident. Your score is the average of all 6 responses. Fatigue: How confident are you that you can keep the fatigue caused by your disease from interfering with the things you want to do? Select Number: 10 Physical Discomfort or Pain: How confident are you that you can keep the physical discomfort or pain of your disease from interfering with the things you want to do? Select Number: 10 Emotional Distress: How confident are you that you can keep the emotional distress caused by your disease from interfering with the things you want to do? Select Number: 10 Other Symptoms or Health Problems: How confident are you that you can keep other symptoms or health problems from interfering with the things you want to do? Select Number: 10 Different Tasks and Activities: How confident are you that you can do the different tasks and activities needed to manage your health condition so as to reduce your need to see a doctor? Select Number: 10 Medication: How confident are you that you can do things other than just taking medication to reduce how much your illness affects your everyday life? Select Number: 10 Total Score:: 10 Nutrition Survey - Nutrition Survey Instructions Scoring Instructions: Scoring is as follows: Yes = 1 points. No = 0 point. Patient score that is >/=12 is considered to be at potential nutritional risk and could benefit from a referral to a registered dietitian. - Nutrition Survey Initial Have you lost >10 lbs over the past 2 months without trying?: Yes Are you following a special diet at home for diabetes, low fat, or low salt?: No Are you interested in meeting with a dietitian for help understanding your diet?: No Do you eat less than 3 meals a day?: No Do you eat fatty meats (ag, sausage, ribs, etc), fried foods, desserts, large amounts of salad dressings, margarine, butter, or cheese most days?: Yes Do you have food allergies? [Enter types in comment field]: No Do you eat in restaurants more than 3 times a week?: No Do you season food with salt, seasoning salt, or garlic salt?: No Do you used canned, boxed, frozen meals, or soups, seasoning packets?: Yes Total Score:: 3 Physician Response - Physician Response Initial Assessment Physician Responses: No change. Proceed with cardiac rehab.
[2018-07-18 11:16] VITALS: BP 128/72; PULSE 50; RESP 24; TEMP 37; O2SAT 94; BMI 39.7
[2018-07-18 12:02] VITALS: BP 128/72
--- OUTSIDE RECORDS SUMMARY | 2018-09-03 04:04 | XMS RPT_ITS ---
:1940 Author Organization [place] Support Name Relationship Address Phone R Unavailable Unavailable Unavailable SAMARA, CARLYLE Unavailable [address] + [place] [address] R Unavailable Unavailable Unavailable SAMARA, CARLYLE Unavailable [address] + [place] [address] R Unavailable Unavailable Unavailable SAMARA, CARLYLE Unavailable [address] + [place] [address] R Unavailable Unavailable Unavailable SAMARA, CARLYLE Unavailable [address] + [place] [address] R Unavailable Unavailable Unavailable SAMARA, CARLYLE Unavailable [address] + [place] [address] R Unavailable Unavailable Unavailable SAMARA, CARLYLE Unavailable [address] + [place] [address] R Unavailable Unavailable Unavailable SAMARA, CARLYLE Unavailable [address] + [place] [address] R Unavailable Unavailable Unavailable SAMARA, CARLYLE Unavailable [address] + [place] [address] R Unavailable Unavailable Unavailable SAMARA, CARLYLE Unavailable [address] + [place] [address] R Unavailable Unavailable Unavailable SAMARA, CARLYLE Unavailable [address] + [place] [address] R Unavailable Unavailable Unavailable SAMARA, CARLYLE Unavailable [address] + [place] [address] R Unavailable Unavailable Unavailable SAMARA, CARLYLE Unavailable [address] + [place] [address] R Unavailable Unavailable Unavailable SAMARA, CARLYLE Unavailable [address] + [place] [address] R Unavailable Unavailable Unavailable SAMARA, CARLYLE Unavailable [address] + [place] [address] STEIN, RAY Unavailable Unavailable + [place] [address] R Unavailable Unavailable Unavailable STEIN, RAY Unavailable . + [place] [address] R Unavailable Unavailable Unavailable STEIN, RAY Unavailable Unavailable + [place] [address] R Unavailable Unavailable Unavailable STEIN, RAY Unavailable Unavailable + [place] [address] R Unavailable Unavailable Unavailable STEIN, RAY Unavailable Unavailable + [place] [address] R Unavailable Unavailable Unavailable STEIN, RAY Unavailable Unavailable + [place] [address] R Unavailable Unavailable Unavailable STEIN, RAY Unavailable Unavailable + [place] [address] R Unavailable Unavailable Unavailable STEIN, RAY Unavailable Unavailable + [place] [address] R Unavailable Unavailable Unavailable STEIN, RAY Unavailable Unavailable + [place] [address] R Unavailable Unavailable Unavailable STEIN, RAY Unavailable Unavailable + [place] [address] R Unavailable Unavailable Unavailable Care Team Providers Name Role Phone ANMA STRICKLAND ([employer] MACHINE [employer]ED[employer]) Attending Unavailable SAUMYA NEWTON Referring Unavailable SAUMYA NEWTON Attending Unavailable SAUMYA NEWTON Referring Unavailable ANAM STRICKLAND ([facility]) Attending Unavailable ANAM STRICKLAND ([facility]) Attending Unavailable ANAM STRICKLAND ([facility]) Referring Unavailable SAUMYA NEWTON Attending Unavailable SAUMYA NEWTON Referring Unavailable SAUMYA NEWTON Referring Unavailable SAUMYA NEWTON Referring Unavailable RAFAEL FENTON Referring Unavailable SAUMYA NEWTON Attending Unavailable SAUMYA NEWTON Referring Unavailable UMM YAN (BRAZING MACHINE FEEDER) Attending Unavailable SAUMYA NEWTON Referring Unavailable SAUMYA NEWTON Referring Unavailable ARMANI CHAUDHARY Referring Unavailable KAMALJIT SPIVEY III Referring Unavailable Kulwant Godoy Attending Unavailable Saumya Newton Primary Care Unavailable Kulwant Godoy Attending Unavailable Kulwant Godoy Referring Unavailable Elderbrock, Saumya Primary Care Unavailable Elderbrock, Saumya Attending Unavailable Elderbrock, Saumya Referring Unavailable Elderbrock, Saumya Primary Care Unavailable Vanessa Bowen Attending Unavailable Moodispaw, Kulwant Attending Unavailable Kotsonis Jhon F Attending Unavailable Kotsonis, Jhon F Referring Unavailable Elderbrock, Saumya Primary Care Unavailable Moodispashay, Kulwant Consulting Unavailable Elderbrock, Saumya Primary Care Unavailable Kotsonis, Jhon F Admitting Unavailable Kotsonis, Jhon F Attending Unavailable Moodispashay, Kulwant Consulting Unavailable RoofAdebayo H Attending Unavailable Adebayo Bueno H Referring Unavailable Elderbrock, Saumya Primary Care Unavailable Siomara Helm Consulting Unavailable Umm Yan Attending Unavailable Umm Yan Referring Unavailable Elderbrock, Saumya Primary Care Unavailable Floyd Cruz D.O. Attending Unavailable Elderbrock, Saumya Referring Unavailable Floyd Cruz D.O. Attending Unavailable Floyd Cruz D.O. Referring Unavailable Elderbrock, Saumya Primary Care Unavailable Floyd Cruz D.O. Attending Unavailable Floyd Cruz D.O. Referring Unavailable Elderbrock, Saumya Primary Care Unavailable Cheng Mccoy Attending Unavailable Umm Yan Referring Unavailable Nishispashay, Kulwant Attending Unavailable Nishispashay, Kulwant Referring Unavailable Elderbrock, Saumya Primary Care Unavailable Kotsonis, Jhon F Admitting Unavailable Kotsonis, Jhon F Attending Unavailable Elderbrock, Saumya Primary Care Unavailable Zacharytsonis, Jhon F Consulting Unavailable Kotsonis, Jhon F Admitting Unavailable Kotsonis, Jhon F Attending Unavailable Elderbrock, Saumya Primary Care Unavailable Zacharytsonis, Jhon F Consulting Unavailable Kotsonis, Jhon F Admitting Unavailable Moodispaw, Kulwant Attending Unavailable Elderyurick, Saumya Primary Care Unavailable Nishispashay, Kulwant Consulting Unavailable Kotsonis, Jhon F Consulting Unavailable Kotsonis, Jhon F Admitting Unavailable Kotsonis, Jhon F Attending Unavailable Elderbrock, Saumya Primary Care Unavailable Moodispashay, Kulwant Consulting Unavailable Zacharytsonis, Jhon F Consulting Unavailable Kotsonis, Jhon F Admitting Unavailable Moodispaw, Kulwant Attending Unavailable Elderbrock, Saumya Primary Care Unavailable MoodispashayKulwant Consulting Unavailable Kotsonis, Jhon F Consulting Unavailable Kotsonis, Jhon F Admitting Unavailable Kotsonis, Jhon F Attending Unavailable [facility] [place] [facility] Unavailable Moodispaw, Kulwant Consulting Unavailable Kotsonis, Jhon F Consulting Unavailable Kotsonis, Jhon F Admitting Unavailable Moodispaw, Kulwant Attending Unavailable [facility] [place] [facility] Unavailable Moodispaw, Kulwant Consulting Unavailable Kotsonis, Jhon F Consulting Unavailable Kotsonis, Jhon F Admitting Unavailable Kotsonis, Jhon F Attending Unavailable [facility] [place] [facility] Unavailable Moodispaw, Kulwant Consulting Unavailable Kotsonis, Jhon F Consulting Unavailable Kotsonis, Jhon F Admitting Unavailable Moodispaw, Kulwant Attending Unavailable [facility] [place] [facility] Unavailable Moodispaw, Kulwant Consulting Unavailable Kotsonis, Jhon F Consulting Unavailable Kotsonis, Jhon F Attending Unavailable Kotsonis, Jhon F Referring Unavailable [facility] [place] [facility] Unavailable Moodispaw, Kulwant Consulting Unavailable PROBLEMS PROBLEMS DATE TYPE CONDITION / CODE ATTENDING STATUS SOURCE 08/16/2018 Unknown 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 / I25.10(ICD-10) 08/16/2018 Unknown Z95.5 - Presence of Kulwant Godoy Active [facility] coronary angioplasty Community implant and graft / Hospital Z95.5(ICD-10) Repository 08/23/2018 Unknown R05 - Cough / Darius, Cheng Active [facility] R05(ICD-10) [facility] Hospital Repository 08/19/2018 Unknown R91.1 - Solitary Roof, Adebayo H Active [place] pulmonary nodule / Community R91.1(ICD-10) Hospital Repository 07/30/2018 Unknown I48.91 - Unspecified MoodisKulwant brooks Active [facility] atrial fibrillation / Community I48.91(ICD-10) Hospital Repository 07/30/2018 Unknown I48.0 - Paroxysmal MoodisKulwant brooks Active [facility] atrial fibrillation / Community I48.0(ICD-10) Hospital Repository 07/30/2018 Unknown I48.92 - Unspecified MoodisKulwant brooks Active [facility] atrial flutter / Community I48.92(ICD-10) Hospital Repository 07/30/2018 Unknown I50.9 - Heart MoodispaKulwant day Active [facility] failure, unspecified Community / I50.9(ICD-10) Hospital Repository 07/30/2018 Unknown I42.9 - Moodispashay, Kulwant Active [facility] Cardiomyopathy, Community unspecified / Hospital I42.9(ICD-10) Repository 07/30/2018 Unknown I50.22 - Chronic MoodispaKulwant day Active [facility] systolic (congestive) Community heart failure / Hospital I50.22(ICD-10) Repository 07/30/2018 Unknown E78.5 - Moodispashay, Kulwant Active [place] Hyperlipidemia, Community unspecified / Hospital E78.5(ICD-10) Repository 07/30/2018 Unknown I10 - Essential Moodispashay, Kulwant Active [facility] (primary) Community hypertension / Hospital I10(ICD-10) Repository 07/25/2018 Active Cough / R05(ICD-10) NA Active [facility] Main [place] Repository 07/22/2018 Active Unspecified atrial NA Active [place] fibrillation / Clinic Main I48.91(ICD-10) [place] Repository 08/05/2018 Unknown Z79.01 - [facility]PC Kotsonis, Active [place] (current) use of [facility] anticoagulants / Hospital Z79.01(ICD-10) Repository 08/05/2018 Unknown E11.9 - Type 2 Kotsonis, Active [facility] diabetes mellitus [facility] without complications Hospital / E11.9(ICD-10) Repository 07/03/2018 Active Other forms of NA Active [place] dyspnea / Clinic Main R06.09(ICD-10) [place] Repository 07/02/2018 Active Unknown / EMJAYNE REEVESSSE Active [facility] UNK(Unknown) (BRAZING MACHINE FEEDER) Clinic Main [place] Repository 01/24/2017 Active Type 2 diabetes NA Active [place] mellitus without Clinic Main complications / [place] E11.9(ICD-10) Repository 07/14/2015 Active Hyperlipidemia, NA Active [place] unspecified / Clinic Main E78.5(ICD-10) [place] Repository PROCEDURES PROCEDURES No Procedure Records FoundRESULTS RESULTS PROGRESS Observed: 08/23/2018 Status: COMPLETED Source: [place] 1:34 PM [facility] REPOSITORY HNO ID: [id number] Author: Saumya Newton Service: (none) Author Type: Physician Type: Progress Notes Filed: 08/23/2018 4:08 PM Note Text: Stay on same dose; recheck in 1 week as planned Saumya Newton MD PROGRESS Observed: 08/23/2018 Status: COMPLETED Source: [place] 12:20 PM [facility] REPOSITORY HNO ID: [id number] Author: Vanessa Mckeon RN Service: (none) Author Type: (none) Type: Progress Notes Filed: 08/23/2018 12:23 PM Note Text: patient had inr completed at [facility] patients inr is 2.9 (patients inr range is 2.0-3.0) patient is currently taking 2mg daily patients last dose change unknown has patient has been on this dose since starting with the cou[facility]in clinic on 07/2018 patient has had no changes in medication and no missed doses and no change in diet Advised patient to continue on the same dose(s) and that they would only be contacted regarding dosage and follow up instructions after review with provider, if a change is needed. Written instructions given and patient verbalized understanding. Presently scheduled in 1 week (08/30/18) for follow up INR. BASIC METABOLIC Collected: 08/23/2018 Status: F Source: [facility] PROFILE (BMP) 8:59 AM [facility] [place] CODE TESTS RESULT OUT OF RANGE REFERENCE UNITS LAB L501.0100 74-106 mg/dL High GLU 143 Result Comment: Fasting Glucose result greater than or equal to 126 mg/dL suggests DIABETES MELLITUS per A.D.A. criteria. Please note revised GLUCOSE reference range effective 2017. LAB L501.1000 7-18 mg/dL High BUN 43 LAB L501.1100 0.70-1.30 mg/dL High CREAT,SERUM 1.92 Result Comment: The validity of the calculated GFR AND GFRAA in patients over 70 years has not been determined. Clinical correlation is essential. LAB L501.1110 >60 mL/min Low EST GFR 36 Result Comment: Non- GFR Calc LAB L501.1115 >60 mL/min Low EST GFR - AA 44 Result Comment: GFR Calc LAB L501.1300 10-20 RATIO High BUN/CRE 22.4 LAB L501.2200 8.5-10.1 mg/dL CA Normal 9.2 LAB L501.5300 136-145 mmol/L NA Normal 139 LAB L501.5600 3.5-5.1 mmol/L K Normal 3.9 LAB L501.5900 98-107 mmol/L CL Normal 98 LAB L501.6100 21.0-32.0 mmol/L High CO2 34.0 LAB L501.6200 5-15 Normal GAP 7 Performed By: #### L500.2500 #### [facility] [place], [address] OBSOLETE Observed: 08/23/2018 Status: COMPLETED Source: [place] 12:00 AM [facility] REPOSITORY Refill (COUMWS) NORRIS STEIN ([id number]) 1940 M Date Time Provider Department 08/23/18 SAUMYA NEWTON During your visit today, we recorded the following information about you: aVnessa Mckeon RN 08/23/2018 12:24 PM Signed Patient has been identified by name and date of : Yes Patient phones for refill(s): Pending Prescriptions Disp Refills WARFARIN 2 MG TABLET 30 tablet 11 Sig: Take 1 tablet by mouth once daily. COSTA: No Please advise. Thank you. Vanessa Newton MD 08/23/2018 3:15 PM Signed OK to refill as ordered MD Lamar Regan Ma 08/23/2018 3:47 PM Signed The following approved medication requests have been transmitted electronically. Signed Prescriptions Disp Refills warfarin (COUMADIN) 2 mg tablet 30 tablet 11 Sig: Take 1 tablet by mouth once daily. COSTA: No Authorizing Provider: SAUMYA NEWTON Ma Allergies As of Date: 08/23/2018 (No Known Allergies) Date Reviewed: 08/09/2018 Reviewed by: Cielo Finn Cma - Fully Assessed Reason for Visit: Refill Request [94] Visit Diagnosis:Paroxysmal atrial fibrillation (HCC) [I48.0] Order(s):warfarin (COUMADIN) 2 mg tabletTake 1 tablet by mouth once daily.Disp: 30 tabletRfl: 11 Prescriptions as of 08/23/2018 Sig: WARFARIN 2 MG TABLET Take 1 tablet by mouth once d* FUROSEMIDE 40 MG TABLET Take 1 tablet by mouth once d* METOPROLOL TARTRATE 100 MG TA* Take 1 tablet by mouth twice * DOXYCYCLINE MONOHYDRATE 100 M* Take 1 capsule by mouth twice* COMPOUNDED PRESCRIPTION Home oxygen @ 2 L NC as neede* ALBUTEROL SULFATE 2.5 MG/3 ML* Use 3 mL via nebulizer every * CODEINE 10 MG-GUAIFENESIN 100* Take 5 mL by mouth three time* AMIODARONE 200 MG TABLET Take 1 tablet by mouth once d* ATORVASTATIN 40 MG TABLET Take 1 tablet by mouth daily * TICAGRELOR 90 MG TABLET Take 1 tablet by mouth twice * OMEPRAZOLE 20 MG CAPSULE,AKIRA* Take 1 capsule by mouth once * METFORMIN 500 MG TABLET Take 1 tablet by mouth twice * * ASPIRIN 81 MG TABLET Take one(1) tablet daily. 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 Medications Discontinued During This Encounter warfarin (COUMADIN) 2 mg tablet 08/15/2018 08/23/2018 Class: Historical Med Sig: Take 2 mg daily or as directed Disc: Duplicate Entry warfarin (COUMADIN) 2 mg tablet 30 t* 11 08/15/2018 08/23/2018 Class: Med Update Route: ORAL Sig: Take 1 tablet by mouth once daily. Disc: Reason for discontinue is not on file. Encounter Status:Closed by LAMAR RIVERO MA on 08/23/18 BASIC METABOLIC Collected: 08/16/2018 Status: F Source: [facility] PROFILE (BMP) 8:20 AM [facility] [place] TYPE CODE TESTS RESULT OUT OF RANGE REFERENCE UNITS LAB L501.0100 74-106 mg/dL High GLU 171 Result Comment: Fasting Glucose result greater than or equal to 126 mg/dL suggests DIABETES MELLITUS per A.D.A. criteria. Please note revised GLUCOSE reference range effective 2017. LAB L501.1000 7-18 mg/dL High BUN 45 LAB L501.1100 0.70-1.30 mg/dL High CREAT,SERUM 2.15 Result Comment: The validity of the calculated GFR AND GFRAA in patients over 70 years has not been determined. Clinical correlation is essential. LAB L501.1110 >60 mL/min Low EST GFR 32 Result Comment: Non- GFR Calc LAB L501.1115 >60 mL/min Low EST GFR - AA 39 Result Comment: GFR Calc LAB L501.1300 10-20 RATIO High BUN/CRE 20.9 LAB L501.2200 8.5-10.1 mg/dL CA Normal 8.7 LAB L501.5300 136-145 mmol/L NA Normal 137 LAB L501.5600 3.5-5.1 mmol/L K Normal 4.0 LAB L501.5900 98-107 mmol/L CL Normal 98 LAB L501.6100 21.0-32.0 mmol/L Normal CO2 28.0 LAB L501.6200 5-15 Normal GAP 11 Performed By: #### L500.2500 #### [facility] [address] [place], [address] Observed: 08/16/2018 Status: F Source: [facility] CULTURE, SPUTUM 7:45 AM [facility] [place] Gram Stain Gram Stain 2+ Epithelial cells 4+ Gram positive cocci 2+ Gram positive rods 2+ Gram negative rods Resp. Culture Mixed normal respiratory odilia. No Haemophilus, Streptococcus pneumoniae, beta-hemolytic Streptococcus or Staphylococcus aureus isolated. Performed By: #### M100.0800 #### [facility] [address] [place], [address] PROGRESS Observed: 08/15/2018 Status: COMPLETED Source: [place] 2:23 PM [facility] REPOSITORY HNO ID: [id number] Author: Martha Stewart Ma Service: (none) Author Type: (none) Type: Progress Notes Filed: 08/15/2018 2:55 PM Note Text: Pt notified, per Dr. Spivey to take 4 mg today (08/15/18) then go to 2 mg daily. Recheck in 1 week. Pt has been scheduled on 08/23/18 at 1:15 but stated that you said he could come in early. If this is a problem please contact pt and let him know. Med list and tracker updated Martha Stewart Ma PROGRESS Observed: 08/15/2018 Status: COMPLETED Source: [place] 11:27 AM [facility] REPOSITORY HNO ID: [id number] Author: Vanessa Mckeon RN Service: (none) Author Type: (none) Type: Progress Notes Filed: 08/15/2018 11:31 AM Note Text: patient had inr completed at [facility] patients inr is 1.8 (patients inr range is 2.0-3.0) patient is currently taking 2mg patients last dose change was on 08/09/18 due to a high level of 5.3 (dose at that time was 2mg daily) patient has had no changes in medication except for coumadin and no uninstructed missed doses and no change in diet FYI - on 08/19/18 patients level was 5.3 taking 2mg daily and was on doxy, patient was instructed to hold coumadin until recheck on 08/12/18, at check on 08/12/18 level was at 3.0, doxy was completed on patient was instructed to hold one more dose and restart on 2mg on , and Sun and recheck inr today which patient did and level was 1.8. Advised patient that they would be contacted regarding medication dose and when to follow up after information is reviewed by provider. After provider review please contact the patient with information and schedule follow up appointment with coumadin clinic. ok to leave detailed message if no answer, and if patient is to continue on 2mg he is requesting an rx be called to pharmacy due to he only has 4mg tabs at home Observed: 08/15/2018 Status: F Source: [facility] RESPIRATORY PANEL 9:20 AM [facility] [place] [facility] RP PANEL ADENOVIRUS Not Detected HUMAN METAPHNEUMO Not Detected INFLUENZA A Not Detected INFLUENZA A (SUBTYPE H1) Not Detected INFLUENZA A (SUBTYPE H3) Not Detected INFLUENZA B Not Detected PARAINFLUENZA 1 Not Detected PARAINFLUENZA 2 Not Detected PARAINFLUENZA 3 Not Detected PARAINFLUENZA 4 Not Detected RHINOVIRUS Not Detected RSV A Not Detected RSV B Not Detected NAAT METHOD Testing was performed using nucleic acid amplification Performed By: #### M100.638 #### [facility] [address] [place], [place], [address] MISCELLANEOUS LAB Collected: 08/15/2018 Status: F Source: [facility] PROCEDURE 8:57 AM [facility] REPOSITORY Order Comment: Comments: Urine Histoplasma antigen Comments: Urine Histoplasma antigen Test(s) Ordered: URINE HISTOPLASMA ANTIGEN TYPE CODE TESTS RESULT OUT OF RANGE REFERENCE UNITS LAB L801.[address] [facility] LAB TEST Result Comment: TEST RESULT LIMITS Histoplasma Gal'ludy Ag Ur Histoplasma Gal'ludy Ag Ur <0.5 <0.5 ng/mL Disclaimer: This test was developed and its performance characteristics determined by [facility]. It has not been cleared or approved by the Food and Drug Administration. TESTING PERFORMED AT [facility]. ORIGINAL REPORT ON FILE IN LAB CONTAINS ADDITIONAL TEST SITE INFORMATION. Performed By: #### L801.1541 #### [facility] [address] [place], [address] PULMONARY VISIT REPORT Observed: 08/15/2018 Status: F Source: [facility] 8:46 AM [facility] [place] [address] [place] [address] OFFICE VISIT Date of Service: 08/15/18 MR#: [id number] Acct: [id number] Name: NORRIS STEIN Rep #: [id number] : 1940 Provider: Floyd Cruz D.O. Age/Sex: 77/M Location: [facility] [place] Status: Signed Assessment AND Plan 1. Restrictive airway disease J98.4 Plan The patient's most recent pulmonary function studies completed in August 2018 revealed evidence of a moderate restrictive ventilatory defect with preserved diffusing capacity. The patient's ERV was reduced in proportion to the degree of restriction, likely indicating a body habitus effect. No significant bronchodilator response was noted. 2. Lung nodule R91.1 Plan The patient's recent chest CT without contrast, dated August 12, revealed evidence of a 1.2 cm calcified nodular density in the anterior aspect of the right upper lobe. The patient has no personal smoking history or significant secondhand smoke exposure. He would be considered a low risk patient. 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 At this time, I have recommended a repeat noncontrasted chest CT in 3 months per the 2017 Fleischner society guidelines. I am also going to check a urinary histoplasmosis antigen. If there is a change in the size of the nodule, can consider PET scan versus direct tissue biopsy at that time. [id number],JP;/9j/4AAQSkZJRgABAQEAYABgAAD/0GKsZQynEiMCWW7AEnMHBTmLWSA8HVCYDULXLCHCXmyoFFYQUAGLIBP URnmeYQPEPGKSJPETfoamOHsJEEcRQTTFQoWUNZHk5hLNWEhSXTKDCNTMPHIQHPTQSGXGSISKYDXVDESQBRSEKPAYWZVANH AAAAAAAAAAAAAAAAAAAAAAAAAAAAAAAAAAAAAAAAAAAAAAAAAAAAAAAAAAAAAAAAAAAAAAAAAAAAAAAAAAAAAAAAAAAAAAA AAAAAAAAAAAAAAAAAAAAAAAAAAAAAAAAAAAAAAAAAAAAAAAAAAAAAAAAAAAAAAAAAAAAAAAAAAAAAAAAAAAAAAAAAAAAAAA AAAAAAAAAAAAAAAAAAAAAAAAAAAAAAAAAAAAAAAAAAAAAAAAAAAAAAAAAAAAAAAAAAAAAAAAAAAAAAAAAAAAAAAAAAAAAAA AAAAAAAAAAAAAAAAAAAAAAAAAAAAAAAAAAAAAAAAAAAAAAAAAAAAAAAAAAAAAAAAAAAAAAAAAAAAAAAAAAAAAAAAAAAAAAA AAAAAAAAAAAAAAAAAAAAAAAAAAAAAAAAAAAAAAAAAAAAAAAAAAAAAAAAAAAAAAAAAAAAAAAAAAAAAAAAAAAAAAAAAAAAAAA AAAAAAAAAAAAAAAAAAAAAAAAAAAAAAAAAAAAAAAAAAAAAAAAAAAAAAAAAAAAAAAAAAAAAAAAAAAAAAAAAAAAAAAAAAAAAAA AAAAAAAAAAAAAAAAAAAAAAAAAAAAAAAAAAAAAAAAAAAAAAAAAAAAAAAAAAAAAAAAAAAAAAAAAAAAAAAAAAAAAAAAAAAAAAA AAAAAAAAAAAAAAAAAAAAAAAAAAAAAAAAAAAAAAAAAAAAAAAAAAAAAAAAAAAAAAAAAAAAAAAAAAAAAAAAAAAAAAAAAAAAAAA AAAAAAAAAAAAAAAAAAAAAAAAAAAAAAAAAAAAAAAAAAAAAAAAAAAAAAAAAAAAAAAAAAAAAAAAAAAAAAAAAAAAAAAAAAAAAAA AAAAAAAAAAAAAAAAAAAAAAAAAAAAAAAAAAAAAAAAAAAAAAAAAAAAAAAAAAAAAAAAAAAAAAAAAAAAAAAAAAAAAAAAAAAAAAA AAAAAAAAAAAAAAAAAAAAAAAAAAAAAAAAAAAAAAAAAAAAAAAAAAAAAAAAAAAAAAAAAAAAAAAAAAAAAAAAAAAAAAAAAAAAAAA AAAAAAAAAAAAAAAAAAAAAAAAAAAAAAAAAAAAAAAAAAAAAAAAAAAAAAAAAAAAAAAAAAAAAAAAAAAAAAAAAAAAAAAAAAAAAAA AAAAAAAAAAAAAAAAAAAAAAAAAAAAAAAAAAAAAAAAAAAAAAAAAAAAAAAAAAAAAAAAAAAAAAAAAAAAAAAAAAAAAAAAAAAAAAA AAAAAAAAAAAAAAAAAAAAAAAAAAAAAAAAAAAAAAAAAAAAAAAAAAAAAAAAAAAAAAAAAAAAAAAAAAAAAAAAAAAAAAAAAAAAAAA AAAAAAAAAAAAAAAAAAAAAAAAAAAAAAAAAAAAAAAAAAAAAAAAAAAAAAAAAAAAAAAAAAAAAAAAAAAAAAAAAAAAAAAAAAAAAAA AAAAAAAAAAAAAAAAAAAAAAAAAAAAAAAAAAAAAAAAAAAAAAAAAAAAAAAAAAAAAAAAAAAAAAAAAAAAAAAAAAAAAAAAAAAAAAA AAAAAAAAAAAAAAAAAAAAAAAAAAAAAAAAAAAAAAAAAAAAAAAAAAAAAAAAAAAAAAAAAAAAAAAAAAAAAAAAAAAAAAAAAAAAAAA AAAAAAAAAAAAAAAAAAAAAAAAAAAAAAAAAAAAAAAAAAAAAAAAAAAAAAAAAAAAAAAAAAAAAAAAAAAAAAAAAAAAAAAAAAAAAAA AAAAAAAAAAAAAAAAAAAAAAAAAAAAAAAAAAAAAAAAAAAAAAAAAAAAAAAAAAAAAAAAAAAAAAAAAAAAAAAAAAAAAAAAAAAAAAA AAAAAAAAAAAAAAAAAAAAAAAAAAAAAAAAAAAAAAAAAAAAAAAAAAAAAAAAAAAAAAAAAAAAAAAAAAAAAAAAAAAAAAAAAAAAAAA AAAAAAAAAAAAAAAAAAAAAAAAAAAAAAAAAAAAAAAAAAAAAAAAAAAAAAAAAAAAAAAAAAAAAAAAAAAAAAAAAAAAAAAAAAAAAAA AAAAAAAAAAAAAAAAAAAAAAAAAAAAAAAAAAAAAAAAAAAAAAAAAAAAAAAAAAAAAAAAAAAAAAAAAAAAAAAAAAAAAAAAAAAAAAA AAAAAAAAAAAAAAAAAAAAAAAAAAAAAAAAAAAAAAAAAAAAAAAAAAAAAAAAAAAAAAAAAAAAAAAAAAAAAAAAAAAAAAAAAAAAAAA AAAAAAAAAAAAAAAAAAAAAAAAAAAAAAAAAAAAAAAAAAAAAAAAAAAAAAAAAAAAAAAAAAAAAAAAAAAAAAAAAAAAAAAAAAAAAAA AAAAAAAAAAAAAAAAAAAAAAAAAAAAAAAAAAAAAAAAAAAAAAAAAAAAAAAAAAAAAAAAAAAAAAAAAAAAAAAAAAAAAAAAAAAAAAA AAAAAAAAAAAAAAAAAAAAAAAAAAAAAAAAAAAAAAAAAAAAAAAAAAAAAAAAAAAAAAAAAAAAAAAAAAAAAAAAAAAAAAAAAAAAAAA AAAAAAAAAAAAAAAAAAAAAAAAAAAAAAAAAAAAAAAAAAAAAAAAAAAAAAAAAAAAAAAAAAAAAAAAAAAAAAAAAAAAAAAAAAAAAAA AAAAAAAAAAAAAAAAAAAAAAAAAAAAAAAAAAAAAAAAAAAAAAAAAAAAAAAAAAAAAAAAAAAAAAAAAAAAAAAAAAAAAAAAAAAAAAA LDDEWNZVTZUXNBJSLUJKNMUOXATFCQKJLaLCghhA0oaMP6RLBGpPDVFpGYTYJTKSXnmIIINfWVIINLJLE9tvJDDqQLHLSrE CRZjpGUTdKPQQHoLJZF5tnAWrMZKUcLWWlEVTZCTYurBKIDIPFZETPZLLFXNWRAFJLKFUXRCKGXFOSSFVLZWGFPPJXYLITY AAAAAAAAAAAAAAAAAAAAAAAAAAAAAAAAAAAAAAAAAAAAAAAAAAAAAAAAAAAAAAAAAAAAAAAAAAAAAAAAAAAAAAAAAAAAAAA AAAAAAAAAAAAAAAAAAAAAAAAAAAAAAAAAAAAAAAAAAAAAAAAAAAAAAAAAAAAAAAAAAAAAAAAAAAAAAAAAAAAAAAAAAAAAAA AAAAAAAAAAAAAAAAAAAAAAAAAAAAAAAAAAAAAAAAAAAAAAAAAAAAAAAAAAAAAAAAAAAAAAAAAAAAAAAAAAAAAAAAAAAAAAA AAAAAAAAAAAAAAAAAAAAAAAAAAAAAAAAAAAAAAAAAAAAAAAAAAAAAAAAAAAAAAAAAAAAAAAAAAAAAAAAAAAAAAAAAAAAAAA AAAAAAAAAAAAAAAAAAAAAAAAAAAAAAAAAAAAAAAAAAAAAAAAAAAAAAAAAAAAAAAAAAAAAAAAAAAAAAAAAAAAAAAAAAAAAAA AAAAAAAAAAAAAAAAAAAAAAAAAAAAAAAAAAAAAAAAAAAAAAAAAAAAAAAAAAAAAAAAAAAAAAAAAAAAAAAAAAAAAAAAAAAAAAA AAAAAAAAAAAAAAAAAAAAAAAAAAAAAAAAAAAAAAAAAAAAAAAAAAAAAAAAAAAAAAAAAAAAAAAAAAAAAAAAAAAAAAAAAAAAAAA AAAAAAAAAAAAAAAAAAAAAAAAAAAAAAAAAAAAAAAAAAAAAAAAAAAAAAAAAAAAAAAAAAAAAAAAAAAAAAAAAAAAAAAAAAAAAAA AAAAAAAAAAAAAAAAAAAAAAAAAAAAAAAAAAAAAAAAAAAAAAAAAAAAAAAAAAAAAAAAAAAAAAAAAAAAAAAAAAAAAAAAAAAAAAA AAAAAAAAAAAAAAAAAAAAAAAAAAAAAAAAAAAAAAAAAAAAAAAAAAAAAAAAAAAAAAAAAAAAAAAAAAAAAAAAAAAAAAAAAAAAAAA AAAAAAAAAAAAAAAAAAAAAAAAAAAAAAAAAAAAAAAAAAAAAAAAAAAAAAAAAAAAAAAAAAAAAAAAAAAAAAAAAAAAAAAAAAAAAAA AAAAAAAAAAAAAAAAAAAAAAAAAAAAAAAAAAAAAAAAAAAAAAAAAAAAAAAAAAAAAAAAAAAAAAAAAAAAAAAAAAAAAAAAAAAAAAA AAAAAAAAAAAAAAAAAAAAAAAAAAAAAAAAAAAAAAAAAAAAAAAAAAAAAAAAAAAAAAAAAAAAAAAAAAAAAAAAAAAAAAAAAAAAAAA AAAAAAAAAAAAAAAAAAAAAAAAAAAAAAAAAAAAAAAAAAAAAAAAAAAAAAAAAAAAAAAAAAAAAAAAAAAAAAAAAAAAAAAAAAAAAAA AAAAAAAAAAAAAAAAAAAAAAAAAAAAAAAAAAAAAAAAAAAAAAAAAAAAAAAAAAAAAAAAAAAAAAAAAAAAAAAAAAAAAAAAAAAAAAA AAAAAAAAAAAAAAAAAAAAAAAAAAAAAAAAAAAAAAAAAAAAAAAAAAAAAAAAAAAAAAAAAAAAAAAAAAAAAAAAAAAAAAAAAAAAAAA AAAAAAAAAAAAAAAAAAAAAAAAAAAAAAAAAAAAAAAAAAAAAAAAAAAAAAAAAAAAAAAAAAAAAAAAAAAAAAAAAAAAAAAAAAAAAAA AAAAAAAAAAAAAAAAAAAAAAAAAAAAAAAAAAAAAAAAAAAAAAAAAAAAAAAAAAAAAAAAAAAAAAAAAAAAAAAAAAAAAAAAAAAAAAA AAAAAAAAAAAAAAAAAAAAAAAAAAAAAAAAAAAAAAAAAAAAAAAAAAAAAAAAAAAAAAAAAAAAAAAAAAAAAAAAAAAAAAAAAAAAAAA AAAAAAAAAAAAAAAAAAAAAAAAAAAAAAAAAAAAAAAAAAAAAAAAAAAAAAAAAAAAAAAAAAAAAAAAAAAAAAAAAAAAAAAAAAAAAAA AAAAAAAAAAAAAAAAAAAAAAAAAAAAAAAAAAAAAAAAAAAAAAAAAAAAAAAAAAAAAAAAAAAAAAAAAAAAAAAAAAAAAAAAAAAAAAA AAAAAAAAAAAAAAAAAAAAAAAAAAAAAAAAAAAAAAAAAAAAAAAAAAAAAAAAAAAAAAAAAAAAAAAAAAAAAAAAAAAAAAAAAAAAAAA AAAAAAAAAAAAAAAAAAAAAAAAAAAAAAAAAAAAAAAAAAAAAAAAAAAAAAAAAAAAAAAAAAAAAAAAAAAAAAAAAAAAAAAAAAAAAAA AAAAAAAAAAAAAAAAAAAAAAAAAAAAAAAAAAAAAAAAAAAAAAAAAAAAAAAAAAAAAAAAAAAAAAAAAAAAAAAAAAAAAAAAAAAAAAA AAAAAAAAAAAAAAAAAAAAAAAAAAAAAAAAAAAAAAAAAAAAAAAAAAAAAAAAAAAAAAAAAAAAAAAAAAAAAAAAAAAAAAAAAAAAAAA AAAAAAAAAAAAAAAAAAAAAAAAAAAAAAAAAAAAAAAAAAAAAAAAAAAAAAAAAAAAAAAAAAAAAAAAAAAAAAAAAAAAAAAAAAAAAAA AAAAAAAAAAAAAAAAAAAAAAAAAAAAAAAAAAAAAAAAAAAAAAAAAAAAAAAAAAAAAAAAAAAAAAAAAAAAAAAAAAAAAAAAAAAAAAA AAAAAAAAAAAAAAAAAAAAAAAAAAAAAAAAAAAAAAAAAAAAAAAAAAAAAAAAAAAAAAAAAAAAAAAAAAAAAAAAAAAAAAAAAAAAAAA [file] SrSkUvEMzlJYfVGVH4e+3JMoN4CQA/[employer]er+gUaGwEKvVa5c0V3To6Dl3tw2mlb81hTNL1wFP3o19TwZcqPFB4Jcm1yl9I3esP [file] QexBoAn/ALLl/senior svp+dO8eta17/NhOqz4r2ezpbU2Iiu2RylIjq27PhFQFCKWMtpiiPZEac22ZaOl/AIWc2m+DXs6KuKjsN4y [file] 1pP7Kl/senior svp+riHD167hAxUMhq4BsnFeM/xYHmk21bOyahoYp02F3SJ5pTdGevEFAb6C8z7YixAkViBylPYfAMPX+G7r6J2qN V98Mc1wUtT2Z8KFvXOjE0/8Asqb++b52t9FW/cU5ea7G52llrHt/qrQeoabbYkrPCRGrLBU99KUFGRIlxZi0mXVe+ypv76f rR/DY358D2fOzyKlp5Fl/senior svp+tJ/Jyd85C0sM+NXg2omgSbx2PaZdq5vk72ga0ZZAp29NGQxQOnVCx66dfY0K4VYisxt1Q8n IbCjPNLA0bJHhVsgk/69FWErz6G3z6xADs+b4y96zgI/2XN/g1K9yDM/Lk9kYAJCgkM4ecaN10jXSjN0BlWFanE58Bpy+9T F20to1WnSfaDDmZ4pebzgBiWe4wGkugEAyGfGKZvmE8rlvbzJBC9+y5+4hsHdLT1idqynI3ysGX7DQP0lYfRQ9zqUQ7yT4v auqhIKSLJ1xDJcOLdnnUIqMTjwtfrykaOfJRcR6CN6xeNHK1JeaB3inja0UUoQADYZpxUXPUIJZMJK7e0mgezUp8qv+y5v8 Npixh9dd2d1QV8j+WJG6F7jLrom7nBKEtzHSVLWupZQI4tT8JwoHo8+aBAxJk1m5zwY2ew3QjM3bmZMG2aA4UviPqJ+U555 AOoOlzH/oae87s2GM/mD9j4ulO9OpyT0BB0Y9Wu6vvPur2zg1ylDZqDJilVODTNx7/FrRivuRSVNd2U1tH8GwVMXrxLBXkO hGxuNsixXYyOFj3ho25BTzE/YZ658E0rD2Kh/senior svp+tc2/cGZgeVHUnO9nvvXQr1GUfx/iLNK6Qb08OlA4Yuc2lR0Q3tEq8y7 aqBapvqsCrMg1WivCg8hLwlu1RHmJzkmyqEFXE+ki4rOK3y0ho/30/Wl/sqb+/H+harlan+E/wCwkX3U3xPbHb88AQ3JS/jvjO kuu47Q3dNF3yIgYtr2adjh58U+JwoGSoP02b9IwFYazrkHjMR8mMpuGgQJUQQodGwOeQFI4dBqnG2zA2Td/senior svp+tYfivWtc0 /us7KiuDhya9jacKGitTH5jYM6m4h0nbbuCsdAlJPfgjp3kbF2IbrwxkAVLc8jXeGqT2MorJIpq3LcQBUBhD/ZxjvQB2/9l QxuU2bC9Nm/senior svp+hbfHejBfoNo1NdCdnRzSByPDhHusj5CElaN/1b/Dq1cQ8lfYUF+HfFE+c9beOcW+lSabeWCwymNpllDxy hncWGertTEpeX2RTMdR239J6b/sub++b59ocj21z8gvUWJPBkST6l34KEY9KoskUTV2APVT1wXlpPa+vBAo+Amnb7iUbzEw 6TORcbOjyXGwGZeikWtHDOfyMO3N84NDrl6fWq96/Wj+yog84tcJoSJBqx4YL9aM3a/suX++n61n/DFK1x61DrAz1lroEzp lRBIKxrE7smzjzq1q7/yAIJhOrzO4Tpf1e5haO6p5It4b516kA6DofzLCuFd4QEwkXKXrGZki1VT2dQ3su8Ay/senior svp+tcx8K7 H8qf3Id06b+u5fgBJldfb6wmWsfD2BObpykJPueSs23e3Qv4ps9599Y7Dwn2anhUVqyTxauCykyVdBvMhDe58xCwV4i5Uc/ senior svp+vG3mll89/Mua1axjqXrgSmz47Uui+70IcDIUK4ay9qMPZOZcgz6zf28ImbLzuu2WjnN3Af/FuOwHreyj3yH7fWJ5CXJG xfKGGCyjBLZGScUAdh/ZA333A5v/sqX++f14HhckHc5go5tEnV7DmJ0fwdngT2x+nkeeIVeohW6Xh8ScQdYgX+Jri/e60/w J1NOm7VHUGIqc253aFm3YPQabA6P84QYm/AOypuzx/rR/HY227H6kdkCbpSv8N1ig2RltSAdmp0gTdHqrmdxtHvD86QJ5nO zqYe2DiT7GCfE2Iu9CG6e6mqB9XAmGC0yXvoetxQTPeVMJAH6O6osJfu6Ns/senior svp+tH9ly/30/Wuan+Itxazrp8+gS/2x/aEV t5dy2qX01K0cyjqzWDOXz0NnB140e/8OiR3z2HrR9FZOyAYhFfH77P1hfH2P293EZJWLTmBCogOCO1gfKQxm/Xzj12C3zm1 Km/senior svp+tcD4L+Tz2nqOrLInLqqFVh1h8gT7IHniii+Lp15fQPoK0S70n8/wn9zsuFFCesWAa6yfhoQPwW2B0ucZ51KKYIoJI M2RZwz7SE/CFlfu25rdZt6DJw01hrKU456tO9TjGPycRPKBq1xkFK7hua9HMOs0w6BhD5GbuTJ1I/syzuqNopoUBq5WggJv 47gboKNUUfROxhiGnpPmfoHPR3XH3K4aJ6G+ocd71iaZ/DO886J3wn7+Q0a6sj0Y1nBTZ0zamfOaKcZl2O78GJl4fCGDFm9 ik5jj4PcJ7le1i229+8yOMA8zFe8EAEfvrtvUNO4dwnRjcrL6hI9o5Kf/senior svp+tB0qb++p25sre95i0hcFQZFosYA5I32WSF8 VnnoABSUtJv1ee3ROXOtaweF9ySYkpr2k1/9kh5dWCD0JZGTRWy5eUTbSe+FXgZzk8/NB15AMg+ofr57lmG/2VL/dQ5ilUQ X1bUp1vWe8h5rRA6nR7c7VNGnGQsEG6XnRzagKJWlyq8W+VQUrtUprx5YhFYvQZV5PhOpQMy10dBDU9zvzaVae0waB6FywZ 4AO/wD7Km/senior svp+tJ/Qx710O2b9JzAMuzQV4xfmxlbRMxeRQbnfa2aIp5/rmj+MrHTta1/uYdK4aWhoPWvYLoUp3uqyUTJRGS 5kUBskhM+tAHW/2XN/fT8z/hS/2VN/cM3sJJkHGVfzx/4l3HhqRATOaK1fyFtakGode38Do6vizJTWG2wR5dlgHUo+y5f76 frS/7CPt78bqEG0mhzn24S+K6k7sINabp9vPzkHjRTExYQYv65JM/CsB/Gs1fpgFMsQ2u+wkDUjwISVs7TDPI+lrEc4fKSF 3LEPPZ7kQ9J+gov55fiVuSnZtcEr1psA6U9rAD0QE47R9X8moL0N+tbidIXtolZlOM/uTmJLbRzDqOCMk9uHmYWoUgD+3Ir K61VrlZcVqLGlFvAxGM2/jB5/TrQBZ/fuqIaZHKyb0r6RY/q0H7iLUk6Tg04kGsCEXHS2eku64YgeaTeBeJDCW4io2ixfNy OMe9W/6XfHhH0YMCVNz0zA/t82EOZVyAiZRKJc6dhhGULnWtnIAZWF//SKWAd73Q7PwU5Wm/AOei/ma4DW/iVrF/3DhF2nW gUc2O108dkaM7IRXAIEJ9JbNZnEdefbgoGu15lzD6yvhjOkfoJj2HVE2z2pkJEImTKPVHV01PYRbHPWgKb/2XN/d2C8rVHn eBNMtNU/jJ5e4J2pb0jcxoGEebNpB8ZM7kXJ1fQz4qGJjo1Qf+kwBDPeS47BlP4dXyBSqZJOCnMa2CY6yr0Yql/oX5Vn8yH YOtiqYz4p7y4Bos11doPa7nWSpUlC8LZbQDg8BmN7x+o9eDSPN9wp+y5j/LnQ0MeRnFbTZl3GzA/wAI7d/YNL+ztfXEkqo8 CTRq+kUGSWN4iBzvUhlCB1wZ6wAI/TqCfxbKyJp5gk5uniCzCZX6l3zo7027WVkszMot3+WBqCbohXS2xklCkCXe8hFigw6 I15hz5epUwomdt1jCTQqtdb2w7hnyIscUUt+hcswCvnG0+9XH+MM4mhGk0m8GYriw6kk9TAsegsYD2zuJLSQXuVqUeuwRiM qcFoL4Pk/55Bt24VK3wKgPAX64bu11AIQoU5pppFKj94iLPQvCsdMUP0HbZUh9OXItTCrBwb6lPRaQ1dwLbvDRo3zMyqgp5 ksbgeXKpVCxQ+o1sguEf/IzqWBJI1jF/zOoIwpQi6bbEMaVjLXpoI3L1uiwWLCa0n7aKJzhnsZbrRC3Dw4cToy87m6/ABDu V2h8I2piaUO3ogBtVU9KUkaLt+HWdB0JUvHz6zVGsD7Z+jOnkgC9qB/5IOAqpe5Zya/A/yV2iHnIS0OtoUaMO4DAonyklsq rBKMRHrnAbAwcDbVW2+LEt8i56C8Tc38kXadCchGBwrxsHwMFTMWqIUFgHB8Q4lC/8tE9+ZExUu0FzRxn2bc0P8Vvz88p2R 6JrwlgBUPYGppm6cPQJwN53/SbC0IukzFpzpW015oFBm+zwJToPjtqCNlSlLbFQNFInqGT0QC8xAf0igHSaFIt11VBQoyku XHAAUMyNCtOozeAsiWNt3kL2BJ6zzPPZhNolB6qe1qC7coe4+2I53n3xCBmDdd5/hOxj3H6n0+rkwjira4fNkUjws2c8NkV bODh4jcUdIlrC9qDSHz5rLWpz5CTWzQ0O6ZDCbxXd71LBvOs6tF+OaKs6wEut4/5Ob2j63ZWl+9A3GTy/yN929NhyegMAw/ vPYX351GgNwtHpTaN6MRC71xG1nYjfaEVbTxXJdv+M5VcM6m+zJ/+eoUW8NJ/Zc3/SX6Yc8tkQuU+JM+tfLsGo7d3uWtL6r sPgbBpqX9FGRvrW568+PxEd58k8u8dwV0XfmwvzR+4lZLYwNiylXoFZ0j4rGBOhV70jninprAUl/2XNz+8Tnr1o/subtIn5 jhOz1sCyLl6l1WVrAgjlAhp42ImRJSfQX2ygxK2RzQM2UKwKJuqIYWe+d5uW9nThT5n1HP/AM9E/Z4t1KJDP4nrj/6xPzNH 9lz/USNQTOni9hPAGj+y5u7p+tL/AGZP/wA9V/E7dOOMDv3tE786wfage4RIj5kJVcAI8GO/7YQlTfXS99pNrmMxtz2n7AB 0P0leN1elx5+L6Gs+rYlNCcs3TCWTNFNl4Kufh3Quonji+6IbGUvHGnmCngp8X5diQkNtub0DSG6XTwkaLkIU21HWmiVDHY 3h4EcPDnmFnajNEFtke2KmWh1gdRNuEk6YM2x702/1v6R20tVl2/xrZj1gSa+w3wlSllqxNxRevZiGEm2RYJIrEI9pqSiU5 lxaZUAHzw1RucKVxGUkp6Q8skWlxi8z0vKN9O5Ys8OgAWTOFanD8Pj4o92Gz6dzsUUOPH1mM6e7yJJOch1b0/Zl5CHNTXIm gsRttFfUloYc74zlCevEPV5HEhBSM3NYd2hwHptQfML8BG8oHbyWJ6fL10ANZ1dtVdnuO4La3hjnOXXCOLTL5QbiuvTLjFd SqsMODRug62aXiq06RwtfDwubqvyLtt2ZPJGEA2oqjSxfopCcutoVQHOWHNR8uqmfusrj7J4nmrHPTpJdgQt/nz2W3TGOY3 sj9yuHBOmwKaQbzRf7Z3VksD1xv5A7TcpmSVAEEczqa7qN8Dr3rOQGW9Qpjmpp+8DXqdFAHnepfD/AaYZxy9IjrCMPJ3pAR wE8fCR0oTyJDIoSElFQIE7Qol5ZjgqyuduWiCY8Xt1j1Gt9b72byKVuMPi8lBT6U1MHZJktd96ETZHP2fh/NM71AXJuFkHb nNYmv4GdDPo4L4dDwXCVM/yrvcQY4nrz1zfP1+1PjAiad5ReduKnjgIQ8e0yThGP4GHd3878ieD3XEKd/fEWvF8om+mWv9n 0Zuhk3sqFGgjROvCFIXGmhWl2XAKBbuwibe1p883/tm816+rre0fErL3GS6RfsD9zO84dacjR1dL3HQrWDDFm+EoQw9lqpf Wc9RnpYRIDVe0du1AQEEanEydkYVxC9AFL27+3wvF8W8gmipWbfnUFhEuqjfjuJq6yWRGxX3EBPV1zUUDp+DtL1DQ/B+maT tbUb4SmairC4TyvzONIL+GAYFOjYPv7rDwdEcox+60h2f7t9HwF4REbRXEV8BFq7KIsEbpsZK8PCrd9H1TXgEzuSKhoTT5v GIXa0DAI2mdiFoyUqOuK9CuXDuAD7saDdfn/mjMqRJcn1e5nzQGx0palA5t9Ua7HcsJBJV3KTRFDJ8RtQtSffhrqsVWwdka 4f2he9RSorhEtBVZHRkOwLgFTvzlxrC/IkcPdjmo2p+w5MC5Gey9T9lMelznFPNYR9QdyMXmOQHx1yCdPNtibW3QiR7bWC6 bj7ZF7KkCfjt5u3lGjPUDHntcuUIcrY5PcmVKKeBQHd0Zxcw83/wAO/cBujXTuTEdo3CiCRTLCZJVCflZMsbXDYJkYwOdy4 qjuXtodhL9UVBP8VA8CKR0eAkfgvXSrTFu3EBW+tdbRRQAUUUUAYXi/w8/iXw+4ykMKkAsFuK8nCoy8ElKxRFbcpetP9Wnl ptu52iUJjetFX15Qw2QoKNINXpMv3pgjgd0vhBzJFR+EAC4PeRNpfR2Mc0MjWKF9m4bwiod0fCaOON5cgzsQAddD6o4zjkq lhGTo4blXPwcsdqpznTZ+92fHOMr4aa2zNFWShZkOwDhVtnmD2jxeoAwmyNYYKpDyK+oeH/Fb8fbzTJ9ToRtvB5xZTP0XBm XPelkJI9bHZydWzZu9l8gbV/EQ3Iu7tgzRKYMfcLAZccLzfSio6s+RqtKTqQ7cua1BLN2DlW9Y3+8oPK+mR2p+JRIS1t5ci TpN8B1oTuC84vrbVQyX0u0COXdLCPtNT5oOxPy/f8Rb8V4VxgGrqgI2JhcyIbHpUaFJ8JvRgxlcTlFoUGWpk9mOS3BwA7Px dtVPKpv83GOjEdCVWajOIuCZj/iHwNfawfFxgureP+2tL1jb06x5My3ny0F0I4EeJcb6Ht75hLq38A4fqCC18dj6HcSzHWi xCQPLV8VHEUfKT145vMMUYBBlyJG8ke8b1B4qCmeeeb/baubygL3nk506E1LYtqhReiXu1qnNp8pI+BqzppvblGPfUDpT68 Z8xnGtrJw9teBY5WWWasLnbfiCZTLUQECLdxzSvgS88l/n1o8wfVd80t9K5f4yYKIhyS5NA98RdnDy8uflMIsiR89edhNhg 3CkUxT6545oK1gKghfreyzGI2QnRyYHcnj9FxFQQNdfWag7HsngpCA7sgAKLbZLjJuVxUL2TD6bqIMAv1I6Bk1pnAv/UtLk quOlJ50rt2A5CRT4jMkkellDOGLtu3dXky+f7yAMia5ogZf1+18AsaYxK53cSlCpLHZCJidss01ykAu9A4Q2shiJKwEMRDv YyaV/ZsElpZ+I62uW08a75GVBBoPZxz+qYb40FA5GmnoZqbHyoUw60bCZYN2pWZglne5JxKE7Sd4FYXLWlp6fbxLkT02aut JVk6uKEGwf7s4F9h8lQR7EuBZBZHhxYD2tfUYze2+j8OmP6nzvXlQowY3xc8P3WHJtPafFzq1Gm9+1dFiigAooooAx/FegL 2l6I4gyUt5iVQcH5li7o6AviJjbmsVoMVG0C6EXhTAmHgj4zCb9heVfKcVsia0bmOms2coVJoxNIMi605POTMDdiyT/hvwv Twq0MPCJSHRSHmcad3dmWvvLR+ork3+ChlF4xD/zq0d4r89+9hvQiV4KwCjBJaIjA8MIrFfLCYiMd1XtVohAdYMiiA/hzR7 jTb+K9hgE7muzyRUmUmKQ2fwn1PLhQRIfGEdfQDAk7D6p+Xm5j7Db6dPZfgLAvg0NwUAIyMkjGLMJHZpRHZUu1rJHNuZrfJ mcyjdslSi2HrXyt0tjPzjcSEEj8ILuV78RjxLO2L5X1lKh+rYgdR0pLA9DcpcrTMwjgbgSBhvtsafabwGaQPDodnhta7ywT fbnX4vSopzL4IYww1RZ3lLt70ODYD4P+X69ZE1RPr6WxH/rfcB9fBu1kh5a7dHoZ4VtAxoqUEaK39hqv9ioV2uBVcfVWnvb oXxZrgNPb3u3NlsQMsh0R7ZYPBUI5K1x01SBb/uo2AHlaQCNqnL96qOENbGN6FRXfyHkTQsVaqrkf8X4vu0FM447ydR5aWL L6/PUm9EgoakVUSvGKB+mRXoGKKAPPtN+H+qWOn+TuX1Mckx6gT705i2iEuUOJJQThNlvsVTJ96Gh6zlB/Cu3DOcJXIga1K dtb/YqVKJGPhHv7dilKPeqkGodUNgJL0KeXVBauv/Qr/VkeDx5wN3P539Ua45Sva1xGIpTTBZgoRxXSlmb24GJ8M5OS2cz5 S8rsUNsV78prABue5+1ZZUjmj5wrbHmWi+Q40O6Of8GW3klyPYPztsrfU8IiRQdTYIC+MxrRVQDjmVjTrp2lf4z3Pd66cHC V3T1o38/Yud2+N3Ah1RYOuawdDQI1ci5y61d54THv/nagIF78b66rB7Taxg2BmKA8f5PVmenOii72f91Ak5jAuhPbNflmO2 0xwxM3o7OxcDrGtMcFvOSBoANZ1mo3NWUJQ0BI/xGr02Bp/X62KgbzXfkIlZx9hQEORzx0B+T8oQG6ZdKuM3Nymwa8Jq6PR NjNchlkVUkB+JKIOv2H9nwCQdHZJJdRdJ5T0L8x0/S/Tyo225HW3sHFPZcef1rfIlAGOdh39t9A61JjB8h2bnCXC0ELq1/A QGt6O0zE9fluEYqwW53fJkZxSxTn5LntQcmDymUmFsfTImMkvqsg7vcTSJNLf1nuPrq/jn4QKVzYd3KotgGpkBRQXvpuiVa 9WApU4UWw5BiF5d8L7O5WfpMwr7ciC52uHqkoSUVwvSx4Tc4Fm6e8qUcVbNufB97n/kZiHfyIUoLHBRormAt3M168KlYwg4 FFAHli/Cq/tbWzEE+n12tzdmWljwatfCKmDwwD6ZtzgAHEMR7EWbk4VcedXZa7oLIDn4CWiTldJZkzV9AxxoLmFnAUEAoGC LTzUY9VuH6tTjO9/oA6wNW3nj/v5aKX0SfThPgUp4p3urCPJrinEEiXefbxoGo/dS5Q77J9DbGTw6XcMxZbUj7fRccY9roG UHbl6QUVhPl/G6U4Up2M+73Be66up0ZWPby2CQL6xfMoGvpPUFTxEplvXG9vkHo0gGwnoYnI2AHt3u3UtIchyQ54Z9OAiBh BfxITQdoUcmbhVP6vP/LuMhAzz7NN5DPiHnUXWzvkONBNguJSvrI2N2LEtsmSQSVI0Of9d72/iWOqj2MFKf+ooou/PhvLdv DAnGKZk0GHNS7srQiii1uP58yKGP5FiiEzwvmE8J+IExCvNpBlyic0kGm23tKlfn9pd2qMnb466X9j4q+FU5hr82HOnJjcZ n3mUhhkQZzvB0qjwoJplEqYEdPKSH4z+O/rdD343Y6hzomMQhS5vDf5TmZmTvIGduhG5GdLF5TqsBjV6kVP3t0D6EdwdSUh Fw7tybrTDQAltsB3q2I0lbFviM6roO1wJTFAt3r4RPGRRCDN7FNxQb/BQFqvyII2jZ2PfHFtMkj3w3PLpcssgPWLmC5Lj96 vqXoUjr7tz8T6r199+6vb7yCpmbLczASOiNRQMnIScrI+D7u3+Es/kP3cMKVddpJn2Wa8CgKHkXlG8brSUR1WfnKTYOQZYv eDBRDRCOjCZyG5kSlW6p9nGVHECmrgnPTK2KOIkrF5lIXL7k2t38lA1FtA0nbjh6aJVOaUyYyxAundIBI9p0S9nN8GN9D0+ XXf+PwR8gj9PFvnQPJgfkSTYdMZt1O3DyHo0LkPpBwc8bfI14uGDuiAB8iI5Mn0P63MUze/a36rOtyNAzkPUVYqwi9mB7Xc nvVW2+OV44oYbRt5trdB2CYsS4klB/gBtXFRRBKWp8WbhXcoCYhPsQy3foR49HgAvCdor+Xk54hCmboAFSLeaPBelZWHaPS G1QXYhXkGL5a+5cV2PTvzpBSxGQs5qiYtz9jzaWAwn3niIKNZdArYkokV3rZKAvbYuIotOriaqGB09mBOlOZTxyVpPA1JCE C1JTWIUtLRSEx6F4mm7jHpkPUPX3e9bo08VfRhJWyhEaMecHxd1fXGAQO5lh2ZqaxmaXmF0FQS/2VlMZuk5wMNqSaGAS+XI d8MIvraZA23N5rVidBMACEK0QF3G0IJBcq56L1zhMJf5d2MJU4oFOgHWYmH9heEqg7Ml4gR5jKnqNLnxJvtaVGW7Edjv81y 5vPtd+ZF7FfF0PqVDA481zZNDK6LP837QOShWcnI7n4WoidYl7v2ZJYYMA6UlHq7B1Ggcd1szavGp83yDnA/Tc229jujDfS KmZckCWIMpE1inZymtg7Mi6o3ge46An8zcxkssM1JznjN0Z2ifIDmDrLnip6aA+jEOjiImlcqXDzJAI96+gDz+58DazdSXl z07Yf2Iy3/QpV9cn5xjbUnz0ekVciAWrfhrJ4Oe29JgcvKttqlVAFVWZNbxzkTagdoDuLH+/L6NJgPpd843oupx7HWhRqsH pQYvoadQA5A9B/pW2art5Olrv2FMCQCKSDVZSVQQUDZVQGGYYABYZCBLQNSGFQUEWAPPYDCMBFAZTIWJPKQFLGORKVJOSIW MBNPSZITJJCYOXRGVIWJRMJCNHKODJEZJLZRqks4pAo8hk1Gv4y1tZ+yzGujacxkkZpBsi3npxHOaL4zXu2Elb3wq62NX0r lmtmQW+Sg0upQKJHXeZGFoke8Fv+lhTxFiecXfpChFt0jwtFnDbzVrXJSUqQYBqHBaVEQ6lWiV+ZAGZfm3sTx5RYaz0ywY5 /upcSrJxil3MsZapXNlKJAmImKCdA6Q6s2bU5zCp8m3PsoC8iaMiHtcUdEpDCphVKSfN9v+nEDHHorXH5XxuYgbNe9lnpjF YV7JCHyQ5f5p3V0m2JluX4yfxk+XTC5qe8hpERrq8JQYtL/cDtyLd0SV9PbC37s+AigRJKchjFEMv9eo8cxWCdtYSL3CYK6 6KkSrE2LJSM/I966/PKRZDz8xVt36b01fJseRUHDxsDVgrRQIyT1MsT5bEk8t9y91f3uhU+Wr09kQxbFDQGDBR8wKsQ397h KAOE8T+OBKPzremqoUcFk9qPSfotwrgWUCUHwJMnjPvbxHrgB417V5/E/tXg6U43KlboWBnoPnzdw8UgMYoNOO7F9SJHuLI VlGfUZzXV3/gnStS/qn6I9dF3Zpc4nwS1CYo9bKcNL+Bw5y72d18G6h/ahTpEIqh3k+dFlemroloWRiNRA0fmdwo1j9IH8N hmbxNeWn4tG+N66GxwtDcW6i600ERKLrzduEjpEnY+EWZAHc8noyNniY0R6t6Q0CLNCTKd7aL90Ven9KF1b8iR8wpwjVLym lpVLUi8q3X1bU8nClkU6k3uduA6iSOh2rvqbTo9ryaaU2meSP5DIF5x4JZSosKL35Q/CFnmcfeNCBndfu3kJldhYcKaUbA7 oikgXuvFiMZw6tn9zm2pPucAXhcIhBrEQIgI+Hvzdw7hVa/iPJXsDXZ+PHyrDEm5TQ96M8snEoiIc9Esri9MXhxHAlOACvW OJMrJzYIc4BeKxm6x0iBxKBm3TrQPLs+9AdhySADu/dr8wxV/JyTCywFleLPlcw0i0hVVumdbGEDbiIMNjRFJpwr2vjSjL9 tXZBDFgltfHwyhhGADIOFUgkvmHvvktTBGzdzI6zUkO8DE80jn4GMI3To1BflXzYkbedPViI04Wfc1SbkX/BWlw/ZtrXH+j fnNa6TmE+jp03ipTo/lCeQpsYYpukjNYX4k29s0sVRYdc0tr3E7MzSWawxCrhmTbfGmHQ6Fn6QJCwLYyueSn7vCCpF0myzu 7h3lv8GOReIGj89U10kZouiU4khVB7rrJ+H+qlBLoRzkTmjlpf2DRAkSGbQ3QncWKuFxPP9T7wBMfIhL/j3rQKoBkSkIoml aT/RJDGawPSXrU1P2u1R71tMF3c9j+39dp540Hq+Z1uNB0+D4tAPfRddBMfJteoea80ytTWUKGct+KjF60bYSsr4pMRPKi0 8KcNo62HxBydILBcLtlXEQMbu4bFkRqoItH3/5Fi3G9HXy7bXCMZJfjKokw/jAvn8edRttr0whikeIUhH9I4nheZbX3ssh7 SHALldS9SpxsWUWz5ZsaSURjM9exLEqv3Ivd79IVXGXilYKqRmpE2YngZCyMRtWO4YWQ3HUVT7j3EkGu9gj1OITqditH0st st4hgVHB6Pmr3V2H1FVZRBnzNAOQVNAHSUVXTHIFFXFUAIOLADZZTUFKLJWTHNEKXWBEANRELMMA8uQkVbmmHiKHNX1YiZO YVXoIaf5w1mU3GswwAXvI7ukXFsW2ijeGOtp+JAmEDnLI0798wrq4n3i2e2Fy1xakcAp1z2nAa2aDcfaD0P7C0UKG+g6S2k ZdlMe3F9ED56d4G5+uPISK001Frgt9ZE+kBLdJd2iZh3x+i6gf2l4BCyezfyuKP0deMBwS82hAtabHSYwRgJcemfTsL8NyJ b0YWY5fdsEVyCVC8IJFWxMcvzzu7Mnp3F40/wCw/aNRitn0+RQk4ebvgDuQYSlXkaioeuTfNzQE6N2C9L4GtNZykYkRRfRx mjGjpfaSp94Lh9zov36Lbqi+OlVi5NDtMtd/dCy1Z6dfliCG8NdLWywShdlORAREHlw8PLPYV4igcOOkymv8F7wTV+3u7LV uObYQtaR6YaWX7BhPVK2PmXgF6vPaI9h4+USe3qhCv9XmxfGFYYj7m36qSoDhMy7bbEVgekgRPFY8TQn/AIb+HF5a+IbabV 2sHGeL9ooCY1M00cX2KAYuINUuWxENxndjGdSUIWF/gylvrjD4y5WSJpCvCq6c5n2WuxDBq3cWXvIM98EvZC4XL741odw5a 6WaTBfxk8oK7j9EJCEIbeNSN6TnCLnpBC4frcQLzd+fd1jmvmw63MW9pikKjPsWTPJ05ty4KBHthDDckfv7QrIRnmcxt4/4 R8aRd8X68weq3mEuw9SqNGIX5Tr0pwoz2b0gtIAh8+KwTY955wf50S8jxuNQY6Jdwt10xyTFHMOihl9RfSF+US1tnVAzgbg XiTxTqM+vD80gAtAvp9B87I9zI4pk7huQzISn/z4TQ402I75MTcUulddM8qo6G8GEPx9uoEt8vVFIysZ+9BQ2eacLUIiyTI Ol6d/ZH2drg/2RNcT2+0BFVA79+6hacL1TvUYKS45IOiHhXfQdJuCtJ3doCwCE1cM/QRgOZBLD35rTcKt/ABb8Q/Y/C9nr3 +wCD09XvYa+T/jua6Gki78Y66EtX3u6ayjJbx3POesYVjqQnc0HX2t3lLEp0cd62h0dS66pSnlCfoDaLnKxJAO2LtsPrONd zd7TvldPeiyzX4FFlXscaTKidXokQG8TIEM2e/7RSitZW9hh+Zv+9v38/yK0zeuwBZ6MhI/jjO9O6PyNQngGza5qMtYAZ2K 2COTF3TmWthpmGc9KpNXVBv/2l5l3t+1/gnpKwl2K1tcnqwsM3w/YIfeS7afX4YrA5WqBXAheVMWni4ATyd7qDFMGssV1re dcmXMNDGICIjgQe5tg2Gf2dJyG6a5z6Uq53ngNhlpMpJLHNhSOMvCFGUi227A4cdse+mT9eVklZnGprv91FQSS/wBm+VJIF b0I5jMujjX1K0LiHMvPiWn8f314Id3XaYF1sPolrnr6QhZXMtcxTGR5XRCam3Y2Kr+dBItUiueyWQSA86UZ3eKaKpcX2oee 8YkUvxU7zWCXf9tkyDBx5ozu3tVwxovO4O3zupSCWWFQ9L6kCxqZ9z3TcF/JRzmlAfLdOS9UNX8agI9O8PTBJT4grct+vOR nXkxGvR5x8l1tID707NYxIoJh6r3DHkX90YUiwANof2E/+LWgcrWLrZl1gWfgq6drPQOZ+0KF4zajijXBcZxQsmuxxURw+H 3m9MEzPymEdpICD7sGLutHLjWCiXCKkzm8MGBdsR3oaT3PtY2yH0wy0jgXkamaR1a1fMoch6CpGstiEmqTDwbo0TGsFCpbD GV6WGQhfNwk5kDPT1nyC4wcbcYjW1rz9cQmROzcip3YLVTE99IN046jstXb0VuIfB1KjMwdk76cNTQ14TkMzfxxyrugG13p rW/nlB6uMkSgCoWchywwYcRFoDGXqwsZL97Vsy7yigF6rj5ouLY3rxZqtK5lVa+/10hqsa1eiaKFM2+ZWUjIwDtHHWusvvA vx2cyIl0V6q4Fsid+uZWBvCKUfalrEjxRHCeZmCDYd0MpeAXSerMK4ahxLapRRk7wdHDNkTIbXtbKyPSGTLBALKarUsvOtG nd4PPWkDv67nvTXVupSTmDH474mOEDz3nj97YXU7o7+l8oA3gsr5lRxf4h9TqdMhZZvo1aDp0oJlEZqJeKfAAMO4o4aQovq M/i5/JirVshZVLfHRu89Dx1Xtr6n4dLfseuikn1e7KMi0Xjtna7tSJALndAgpNNyWVAdZNNFn2f1KYVERoWiXZyXyfWssaY 6fSxIcJ0QpyApEJ9UntiWWMxQGYzbHZuXF6y9LZfTdC6jJhM0l3qWs4EJotYkQtOD0WGgOzSntCkhS/+dcXm9ukWXtmI5i9 BzDy7OnkgTU10ZTNKMqBSNd5TBzryqyq+7W30CKFS8QokTsAQcqRL1EUvJltcfylekPuqFgAUeKCl5+1xDvSL94AS1J9DAw wVCoXNJUv3UQIeEeNhdeQKnoQtSjN5H/Eihb69OPQgIWN4TRUQduXwKuFDQoodKUHCru5IByp44/D3Q/7P0+lhK4yb0R1EL D0Y3jwXeGNlFOpNhnFfJIq+FMpGwSF8SjeaM8T2bskvBn75ZtZQoAS2Yo5E3lirOLyZWHasgr6l5z6RXqwGlh7zHlWKgKsJ /zDwI9Rr6s7bZxaBA3cjgE65o5riUd5tkAAuP1TFgmWasK9Y/ZyLR2SLWEWytNRG3/wJ4a/4ZUfWMfB0xppBE7uDvjI3PZr ENPPSxZ9wKsd3KaLOdnTYftFL97AtRRetOLcXwzcxV+1F2X2mxXOFqsAEhrn1/MNCw4YexGxvqs4bk1DKh7ef64l8M3HkLi oRDe5ybi0f+KDH5b8mu8TPdvh5zS7BS1Poi9KHIYuxfbwJteGW7DuBcF2M3AJFamrghbQ8k8hgYEnRxG6dT6zdRwGYTf1RW EXKWIxXQss9Gm6g4e6ZlA2m1h8hJm1FVCuLuTRJGbMOIlSeiWgCpsrJhtWVDsgmiqXGLCONXoYxmgpN8f4pcu6+L6Gs+gAp PN8bIKYAYdzvWOvMv7X9A7600B/oI1mIWqeywPnsfiKQIJMEExsluVancvSLPIEKZixqmEquyfQPJJVUWnbbuKpeevVGRUG ACiiigAooooAKKKKACiiigAooooAKKKKACiiigAooooAKKKKACiiigAooooAKKKKACiiigAooooAKKKKACiiigAooooAKKK MQNwncoUbGDXWQMCNWGBVBNQQAYUPQBHTZURLBJGLQTTRCHAIZBVUUECREEDJRRPBULPHGLHKMansjGLEC3K3bcCyx28g30 wkh4E3tqZPDhNJckmnlOLfVm1XQQvTGTa7ZAlsjzQfF1xc50k7wav7w8sk2MqyHyTDPB4NeIOhiJgCrzug8EvXIgfUVnWSQ HoartM7P3sWgtZC1OOCiTMTuIIXgKdCkefj+w/syKGPwt/byjUm4+uACqWV6swtf8B7pqXX5fS510Besq7d3dr4VUNyk9r4 M7Ndwf1e7RBkMVjGhMIOL6v5apkwLZGilczJ8N1zdPpKWty/B3oim0awtqDr3c3hfa+ul0+S+UNQTxfhnxCNTmQ9S32LUBj VoFVrBK1U52ae07utPBKdyRvomSWrTjWbqVkBYCsmNLhxXgiABb52VtJbPLcN57letPN5qGtPj4+dF97/f76j91M5SjEcyr 4Ok10nxM8tlkt/Ojzo/UApLd6HYMBEV84xnk51+yGuanqxgjF/I34vjIdo72GzwotP4XMWF47pfgb8B483dR9w/4Sv/AISm 2CsMN47tPfnu/r7eS846plLhkV0766BOLbo4t9JgQSFztNW1TILFNHHjwl5ff949uuJmSpz5gnhsMLVi6gn5pnUKK6PTHv8 EOnV4zf84K2spUriGCgRU8b6JNuzBvw2rV9L/NPkf7i6O/sIxnVfsM/8Ab/l/32Biqh6y18gO4icsrHGOUNPVrknz8P44RH Rk/wCR19XVSjY4UfBmF7UT1tL88HBI33B5TcCoD5Ytyppr+i9JakGF+RrW/uUksX+iFFlR6WAGYtQDPusKbqc8hzbXl3L6D nT6gI72SJZ/bmL96KdMfGBd0elU/wGPtyYDwOlDsbTH5fIj5QGrJwT4MaMe9mcQuRu+dsGicL3NPPNDeBNrDcZ/YVong5CW yaeh76l5xfOm3fxnh6OTPqUHf4NO8uX+pAuW4Fonk/8DhJk3IXsiYuwENidAFxbUBwWkVmBIjthYfIP8f0yIOSPSUKXLXSY aQMHUBYYD4TybcF7/WjqjHBAuPu9SIpyJpwQ9wZdZ5ZfJqnITAFLCY9MdS+SCPW2v2pBbG5SGUViQY102MWJ4MTpUh50qkb q1dPxboJq2ZQmT9HS2BdnlrDK3i2HouO3nmTczDlF3YBF/cBgqz2a7nW+maL8snWFm93y0igbPpyeiKhXWZG227UohGbTir ppnUM5NZ9s9n1VDQnOfwpDOrIEJr4hglI48GA/jiHNWcxuYio3XtbqDuh3niIAz/pHU8MmFWUeCFwLlDQFyBrpVIh9gQ/6b OQJgTRIe99+wdgdFVAB7cTeATnvSgkQ0L9R6BwvaSCkkaYnix7SAqNnBaz4B9yyu77OVHt5/KvBnXUb+PRrTwctjpmonWNS yimm1xiwUo3LT1fla5bxRVWXB1qy44mdwD37HCc+ZpR3Of8y5zCs7iEhDTTPi3tXWotgommSX69x4vh6zmuP6DnXN0FxWjb AZkJOxsejDkfWrqyI+9X4ipZEXDcK9tcGVL1dJigdFhsvhokle6N897eHSODZOM6cKE98EN8arJebkqvbb3V0a9t93lCPbE sK6TDUXnLZ6i0uCe504sumn/IKHFfA8CXQ5LEfzG8jjEk6Q14igD8kiuHSTYAqcO9IarXD0qdqP1m0U+CRnPC6pBJPrtZaU fn1fuAHECxjaILSYrj7+pCdE1cG5nX8UK1W4yatromOor7urvb11sYgyVvV2Cvm3n6Zb/qn4D5sxLHp/Ytog5tAtIYE5zIJ Z7j6uZE9wi1IXssVQ5X9MiEieCkG9OhVYAZ0sZAF1nm1uF+x67gqcs4/psv7j9hhP0ZwGykjrj5awgkPMrSm6Cg417bvrz/ rpwPn6+8UQrdJGqQbgxb1aqAbd+sD75YuLJZDQEM4ytmtoRbljSOi7VqLbd/A99ooAwp24M7l4ztF0HAzjJCGE64y0UYskb nApxC7YfExHNDEUzviv0LCIc+LYImVHTdVKMV1jZT0dvIkQ978OzL7f3tRzOdvuDjMORJuoKVs5WIv/USpa8ElrPvlrdaSn BhBT0BrV58RsoIqyS4NyO9sC8ZgqTzjWg0bN1XUn/iDQnHDXWjtlzOZVywdLUbdoKh0ODSoIeIb0/jEH4VRhm3DeKfy1NTy RyjVSttdhMYS95qZ4x8voHDqK324kxpageeQR7ay2IQp3S/CNgxFMnXvoW47sMS0WcJ4aWk23UKZN/wA4r5+I9TdQrYQnuQ 6d/mAQ4iP7Z1QvKknmU7E9pl7OqN/q46Tuqm6yoUmwYIijIznvvNr1mZgRJD4pzX1shv3awHmFGcI0rKDw179Eb9l0fBWNv KCuJUpGjR2ir/nDsije3KvTcpa54h1S1sagpH31f8/RuwyKWLAYDNuxQacgjbzY0hob2DB5jhrvlJOu+2KblDVXyfBLuJC2 muZo0lG29wO8A4m8eKZr8t7Q6oGZHR+6SLTIiJy1YDLPYtGY5SPDotMaHVAvGc/FmwtVv98+H8mbCj/SAFSH2jXfTZXDcyG 0CpzEAJnBiT3jeMnWYkabkGNnEurIiGdJ16htiosjWVqPj3ySfxmp9xNXC7tsYE3bwqyA1NxnHAQfx/exXbfDXUYYvA/hvS ru5Qag+mseN87V47yAXQB8ODHumML5Rqlom+hbRjI2k65C5VW9HODJV2hQAZ3LWIUAAeljFZ2utTRpOJqB1O/7LUVVdUums DWettTFY6a0ddLV1FwkVY+VAF//AIS6x/59NU/8F8v/AMTR/wAJfY/8+mqf+C+X/hVBgkGfo4Rzi0iRYCoEowCn7AwnCpGy yWUrmSIoSpLqxPGR+XAzQa0r4n7eWoWs65LUiQ8su1fLqQh4HPZWJj5VFq/wl9j/AM+tva8Kkvi/+Beverly/4S+x/wCfTVP/AAX y/wDxNeY+C/lK7j5VWvmopAPS6XarLFur7cM9tnv9NPEoM1qRBkiCqPuwW3Y5Cr6Pd9wtk1eGJVepLxWEo6eM2aWNSx/4S6 x/59NU/wDBfL/8TS/8JdY/8+mqf+C+X/9paSfQRmE6/kWLBTkZr68B8UkKP1eqhkVyMZGRI7ucjqLhdGRROtlmerGbfpjix qsLlTtzHh4oz+5reVEYw0QJYXPb/wCEusf+fTVP/BfL/dOB9n6Jgk0a/wA+mqf+C+X/OGGbgubr04b6BM+EZsYmL54zZrPi yUY/TpJiApHbSnuT0z0dY4yB/rGdI8lzkWe/AGzBcSTW+9Dli9kANXkw3+PF9N0cF7R/4S+x/wCfPVP/AAXy/wDxNH/CXWP /AD56p/9E8t3X8qeNP+D5pwMeE1yy/hXOxpr1NvqVoR4uVpvyUOKDlX77z3sk7mK9XswSb+AsV9d7E4bI6nsGEajGRb0iYd SVwccAk8+lAHov/CXWP/Pnqn/gvl/+Beverly/4S+x/59NU/wDBfL/2DSH7Y3C3hi+I9tQntwnhwy5tPhudLF+8KXH4owtYtYuHt CzL4nW50b6mzGthK+SLgEkb/wC7jGc+0GjQFJx3DcJ/8+mqf+C+X/4mj/hL7H/n01T/AMF8v/xNeeeG/ijY6n/dK1i4XfO2 Zjff13eyi8iFvsLIHCUIJ92Sf+L/AIk2+s5ZCnt6wgKN28Ut3j0rjKliFpwxgoggwvCY5E/wl1j/AM+gvq1Mkzk/+Beverly/4S+ x/wCfPVP/AAXy/wDxNc8/nWg7saG7C/bdp/aPm+T5G7nf/uj02a3XgMiCaej2v8tFzti5zoQLive0eqnqBVajTKDYCNZBu5 oA6X/hL7H/AJ9NU/8ABfL/FBZ7s7ErF/8APnqn/gvl/aXua2scx1aq6O8LueXUxXLOkvVRMbHFYgbZoeJEHMuah1oB1FPF0 /GTTT9Ly9px/wCC+X/4mk/4S+x/59NU/wDBfL/8TUVFAEv/AAl9j/z56p/4L5f/AImj/hLrH/n01T/wXy//ABNRUUAS/wDC X2P/AD6ap/8G9c2H6lv/AIS+x/59NU/8F8v/YSBJDYSDMg2IlQgT/n01T/wXy/8AxNH/AAl9j/z6ap/4L5f/AImoqKAJf+E wfb5Gss4B/vZD2b5D4DT//wA+eqf+C+X/AOJqKigCX/hL7H/nz1T/AMF8v/xNL/wl1j/z6ap/4L5f/iahooAm/wCEus f+fTVP/BfL/wDE0n/CXWP/AD6ap/5H5e0V9ikjQKQn+Eusf+iKHF5HdYb//Q6m1ZnB/wDPnqn/AIL5f/iaiooAl/4S+x/59 NU/8F8v/wATS/8ACXWP/Ppqn/gvl/8AiahooAl/4S6x/wCfTVP/AAXy/wDxNH/CXWP/AD6ap/9R0i8M4hbbQORv+Eusf+fT WV3ZnIx//Z6p9UvK/wDPpqn/AIL5f/duxf1gLv/4S6x/59NU/wDBfL/8TR/wl1j/AM+gjj3Xaou/+JqGigCb/hLrH/n01T/ wXy//ABNJ/wAJfY/8+mqf+C+X/nOLgWw2VRn4AzZ/8+mqf+C+X/4mk/4S+x/59NU/8F8v/wATUVFAE3/CXWP/AD6ap/4L5f 8A4mk/4S+x/wCfTVP/AAXy/wDxNRUUAS/Y8+mqf+C+X/4ml/4S6x/59NU/8F8v/dJAUSNGPk5Nbf4t/wA+mqf+C+X/A Ever/wCEvsf+fTVP/BfL/wXS6WP1FMKe+Evsf+rCGO0ShPq//M0w6OdT/wDPpqn/AIL5f/iaiooAl/4S+x/589U/8F8v/Krista R/wl9j/z56p/4L5f/iai+lFAE3/CXWP/AD6ap/5W0s1W5gb/4S6x/wCfPVP/AAXy/wDxNRGigCX/AIS6x/59NU/8F8v/AMT R/+eqf+C+X/wCJqKigCX/hL7H/AJ9NU/8ABfL/AYU5d7KcC/8APnqn/gvl/eVedi4qhDk/4S+x/wCfTVP/AAXy/w DxNL/wlj/AM+gap5Nzet/+JqGigCb/hLrH/n01T/wXy//ABNJ/wAJfY/8+mqf+C+X/wCJqKloAk/4S+x/589U/wDBfL/8T R//AM+ien4Gtdu/+WmJm0ONc6GcS/8APpqn/gvl/wDiaT/hLrH/AJ9NU/8ABfL/CRJ0FOVLT/wl1j/z6ap/4L5f/iaP +Evsf+ePSG1JgWs//F8ScFYHL/wl1j/z6ap/4L5f/iaX/hLrH/n01T/wXy//GCNO9ZJT/wDCXWP/AD6ap/4C6g4W9df/4S6 x/wCfTVP/AAXy/dOpFP6YZSp4TbV/8+mqf+C+X/4mj/hLrH/nz1T/AMF8v/xNQ/SigCX/AIS+x/589U/8F8v/AMTR/wAJfY /8+mqf+C+X/wCJqLpQaAJv+Eusf+aYLK9IcUs//E0n/CXWP/Ppqn/gvl/+JqKigCX/AIS+x/59NU/8F8v/AMTR/wAJdY/8+ mqf+C+X/wCJqKjpQBL/AMJfY/8APpqn/gvl/yBenK5QlE2S/n01T/wXy/8AxNRGigCX/hLrH/n01T/wXy//QZGXx1z6kGka TdQXaSRjTJRjPX+BkRRuoZCRlaYcV5I99ZOJtTk/2pXgv8LqE/idM3U3ia3/CPGlGK5lsiSJZkzHfXZNS1s83NVPiaHMxgc /Z0uT/wCO1H/haoi2Yl5zd5pO0x0SBawg/DRRQA4+JIQAs4ahBUpo/dIV0FybL0mIyIoRz2WVw5wgg/3CAL3Oxjp7ww2o8q iAOVnnHDZn5cEwQBRLLWSulPIW67CelYi6mj0Rjo0Zd21P3VdMmcEtSaoThJGzstTuxZiSbo1gppnNiXw6kmSJqEA8V4OwF 7rHTZSV+u05iNsKf1uEvxTsgTafmQzPL9/o6nbBTKe+Lj6bPUlK3NeEyh/Etl+UsZKa6PrmtaUSBSW4LuHa2e0eFpA/AMdp hHJPu6q9gIzkh+mb7v7d3Wxfu8/akN9l9nryuBhBYqKIJ8Igjz3+JgrWARW29DsjhvVkTBL6jIvAtb/6DQfFOmszFrDUSWX zAtDl9Jc74tXFP6QTLU3g7cGbGP9AUP/qC21V7c2Xu2La+SpTZGFbBSWRurJg3lAFY/smzPOSqNHQ4uEKC9vrcy6Bu4JHxx lSoyYBNPsBNA8xhuGRGpRa1mfsPX14m4IsqcJ1wneAHy0T5yOfaXG/RSGcVsW9A4rwb2KTuH/Fso9I8206qHpMPRld6GsHj f8AiXS/KPQfLxTKKAF/4SbStoX+bpB2muAL+uMlMHqWt1YW+FPLXBwV9D1VHy0QnId/f1Qh6YmTCH3+KNMYoTp+okx/cJ02 D3h0Fr8Dz5JZxq/BP8Gty5/6fls8oD7zZ1qtFAAv7t2vCUJdfzQ6vOu+lOp6rlHzqxvSU7w9yAYHGnOGjwpnELHwebcc57C xxHP4VaJIux5Y8MInh9uGlVO0V5GXgsaE4uXM39DJXE1XZqfbXAn8jIGplQvGtNdkLaZZJjNJZuDwYb1/bkRj6jd/d0i8Bx jjSpP/DVeu8KHV1akixycvl3gn8vkEPlSgBOSPMNCx6S5qnlT408WQ0h1hMW1n3/UUEaCNNumy/Ko/aCe2UguzdF56wDpsP t4rmLy+S0osyBCnPvNl8WKTRHBHTd5Wq+tAM6UYOKHQufgpi7AayXTyLXIXejewHjvCWECd3PfGw8AJZiXLV4ffqW/9AoA8 I1BfE7jg1q6XeyuhkH1Uy5MH/jA72QhtWOGav/vlJ1IyHNPGWmUrxo11cV6ECx6TIe9CRpac6mMZTw2GsG2Sri/KtXzNf/5 9tL/8CZP/AIigy6//AM+ul/8AgTJ/9CSS19buueTQyCOj4+meErzwzqMd0/4OkUkQEUJjNa9MJJitSxRQyjJAPWNxtOPWwR ekT+WjIfsXrAn3B0s7LIdona7Qxr0YPclL684l6eLc+fXS/wDwJk/+IoMmv/8APrpf/gTJ/wDEUAeI+F/X3gX2lQVuF+Gr+ guvPca1V4id7ZrIOO+Agxc3yl5pJQbhvJgWPNeBrU2N+0+gzL8YFUFLHJEtJ5GC6nYf7IXP2/EmvZ/M17/n10v/AMCZP/iK XzNf/wCfXS//AAJk/wDiKAPH/DAfgB11C4WbKe5m1YgakIh7i4RGvtsvF8iHJZr/WnzHvy0CjKkyyzvAuLRqZlp8j2oSXXc BEGgJr0TXu8PjDiR2lcQGX4//AJ9dL/8AAmT/NHTu9zE/YQl65v9W9VNp/iKAPG/YFhqHiH8YWctlW7s3lVFyYUjOSp1OIA C1HDMV8ZqrdOY16V49oL6PUNyZ1itUIXYaHG40+8a2q1KHnCvtqO6JwkdTogiE9/8A59dL/wDAiT/4uwxIx2D43m7W4KKl/ zPCYUmG3ZxVIrLTHXG8I+lxnbXmI3k12z4kvYriRBLQ0zD+taUnhHxELVdfbw/bEZ5nu5cwLDHvY71hul1r/SvaPM1//n10 v/Carito/8AiKDJr/8Az66X/wCBEn/vHNUtI05K0SCdSodzR8txf8UeaBBe2JgnOWgBkVFcKzrWmdKxgsR/IC9hubM/AMI/qMT 3XjKG/BBwfaDpTG4emHPBCC1x0i8xsPb/AOfbS/8AwJk/+UiQmp0Q/Prpf/gRL/4FJAKlO28tWAGhVTqm1jfs2hosQZMhYB PWnnUjTtUrfHqTghtuaoXct2n0/DdqORkEtq28rgSL9fD7Wiqws3fhq9EzzJL9U7wRVoDQ6nhuTh//AD66X/9XWs8QxQX6s v8A/Prpf/gTL/3GZWQaV2/+sBMB4eg/XZZjay8L2Jwv/EUGTX/+fXS//AiT/tYVeI82RThxSe//AD66X/7XAp1FmFZgp/8A 8+ul/wDgTJ/8RQBpmiszzNf/AOfXS/8AwIl/+Io8zX/+fXS//AmT/rYIoN59UkUM54/8u2l/+BMn/nKGP6pp/wDPrpf/AIE y/wDxFAGniiszzNf/AOfbS/8AwJk/+HxZof3I/Prpf/gRJ/0OQLZsuDBtZS1//n10v/wJk/8AiKDJr/8Az66X/bNJBv0I8Z YCp7WjxOk/APz66X/4Eyf/ABFHma//AM+ul/8AgTJ/6NASq3VmdIu/APz66X/4ES//ABFHma//AM+ul/8AgRJ/5BUBk0uBp PM1/wD59dL/APAmT/4ijzNf/wCfXS//AAIk/wUfWVTY0NscAw//AD66X/4ES/9EwBEl7/P/AB66Z/7NDb9PiYLMmOvkJN4/ /n10v/wIk/9YyBPJ9/8A59dL/wDAmT/2jzOZfkB9fM/+fXS//AmT/bIPn4oI/wDn10v/AMCZf/iKANOiszzNf/59dL/8CZf /AIijzNf/AOfXS/8AwJl/+KdF1ePWLTWu/wCfXS//AAIl/wDiKPM1/wD59dL/APAmT/9hrYXvqS8tP/8An10v/kSGYS0U6a jzNf8A+fXS/wDwJl/+BuO48OoFZ1//AJ9dL/8AAmT/ZTHt7rsB3CgbgApuFz8YvOOHjYLB6lqH/n10z/Carito/6UgDDJ5/8A5 9dL/wDAiX/4pnSWveQ2oY/+fXS//AmX/iFKi0sF/wDn10v/AMCZP/iKANOiszzNf/59dL/8CZP/AIijzNf/AOfXS/8AwJk/ +PgQ85TOWNFr/wCfXS//AAJl/wDiKPM1/wD59dL/APAmT/2tgUQzeG8hT/8An10v/uOCKw3V6sknNl6Q+fbS/wDwJk/+IoA 87IsHX3//AJ9dL/8AAmX/AOIoMmv/HCElxg6U5WSz/EUAadFZnma//wA+ul/+Tio/ZIAJ9of/QXWpcl3R2EI//EUAadFZnm a//wA+ul/+Tio/LONP4ah/USUisd2C4UG//EUAadFZnma//wA+ul/+Raphael/AUCI6gx/CKIfnu9D6HOf/EUAadFZhk1//n10v /wJk/2PcBRJ0/8A59dL/wDAiX/6awDUsjL2tN/+fXS//AiX/xPGd9dH+1rpf/gTJ/5UCLEmqIUab9//AJ9dL/8AAmX/AOIo 8zX/KBu57i6M1GHP/iKANPFFZnma/wD8+ul/+Raphael/xQKU9jt/wDPrpf/AIEyf/EUAadFZnma/wD8+2l/+BMn/dHEE5fh/wD Prpf/AIEyf/EUAadFZnm6/wD8+ul/+Raphael/vNZT0gk/wDPrpf/AIEyf/EUAadFZnma/wD8+ul/+Raphael/cFTS0np/wDPrpf/AI Ey/jMlFWNvGBD2df9Y/Prpf/gTJ/8AEUvma/8A8+ul/wDgTJ/4YMWy0tWbWT0//n10v/wJk/1RiUMD1/8A59dL/wDAiT/4i eNRpuG2bH/+fXS//AiX/zHOk9oW/wDn10v/AMCZf/iKANOiszzNf/59dL/8CZP/AIijzNf/AOfXS/8AwIk/+LpM37JeYM9/ /n20v/wJk/8BpEUM8/8A59dL/wDAmX/0ezLCafGN1aa/SXDsfx7T4Tej/EUeZr//AD66X/0Jkv2IcPQGdRES0bc/APPrpf8 A4Eyf/EUeZr//AD7aX/0Fpf4UaBQNlTNK7os/IDHavt1F7Yvh/EUeZr//AD66X/0Aeq8MuYKXmKjWM4nd/wDPrpf/AIEyf/ EUeZr/APz66X/4Ey//IHEBScIEQ9uj/wDPtpf/AIEy/wDxFHma/wD8+ul/+Raphael/yHBYMa8GneMm/8Az66X/wCBMn/xFHma/ wD8+ul/+BMn/zYPDLozoujaCx0U+fXS/wDwIk/+Io8zX/8An10v/dIJXU9U9fmADguV5oH/JPm32n5Q0XUG/iKPM1//AJ9d L/8AAmT/IPYbC06TyIV5bw7I/Prpf/gRJ/8AEUeZr/8Az66X/wCBMn/xFAGmaKzPM1//AJ9dL/8AAiX/TUSw0kA/ZAy81y0 A8CJP/iKANOiszzNf/wCfXS//AAJl/wDiKDLr/wDz66X/AOBMn/lKXJnEEK8de/8APrpf/gTJ/wDEUeZr/wDz66X/AOBMv/ hHQWjTSQ0vy/8APrpf/gTL/wDEUeZr/wDz66X/AOBMn/xFAGmaKzPM1/8A59dL/wDAmX/4ijzNf/59dL/8CJf/AIigDTorM 8zX/wDn10v/AMCJf/iKPM1//n10v/Carito/8AiKANOiszzNf/AOfXS/8AwJk/+Io8zX/+fXS//AmT/yKKiQ81ZaTqY1K/9oxW pBPAg7kUpw736CG/SFXzSMpZQXBGHpWZAMCXCwAKMgephkRtFHXBXRPOMTUZQGIXRLXGzPMSJJOLKMu6QoCHVQw1LPOVHOL fkYJWD6cZGCMKRRBTDbxKkxlbBYMCwvPCnOGTMX2YDSDBlbmuJVDHHFQVLyDUZKHQMMQFKE0jSTCGFCJver9UCTka13swMr mOW2XsI4GP5s8KZJ3qKV7xs3XYijnO8CXrWU86xlT9G2Z3j8FFXR7IPtoBEpY4SDKjncGwBBoilupFOJpYcQwVraF4KJVdi W2jag+htLotP1dRn8zdHIArNJQmPGY636dF3UlsgcF5/i0m4bbIA99I7/R6CQOLbaG6MyTCeIuebMNfDCWEnuFSYoBa2I2a k9Z6j5xtTWgbq+xrdQy5JL0keLHFQlNMYjrTC8wqF9M5KlFbyrTxfmoU4gyX4pYxgACo57oeWEbY/ffTnGGRVyV2cZ/iFPE dkQF9fKmpstMQn41lfLZHd0+XZFA1FMJ+VL2gKR7yglxwcYxi3bOx4R5yzBO2iYmPd/UTkEQKRkgn5bEcRFJWVBPRBHuaIM wbsnNflyyTFbswiMARD3qHGVDdWLGb8QQCDVFBHTMUQVHZJticeUESBFIQhWVJPPDJDocCioUPILDkilkAofQ1BYQLdv0KZ BzRiiigAo+lTT7hZYSz+lFABRRRQAUUUUAFBoooADRzRRQAUUUUAFFFHNABQaKKACiiigAooooAKKMUUAFFFFABQaKKACii gqCyhivWFFZIXUnnpeKJZ6IUMIYQjaAw3ixOKgZVHg7PWlz158Y4z/kXtT/685v/XFMuNEk2sMwhWlyDu+3eC/YJaSLICs7 RGkDn8yQ+VXPp+LoUfLTwDfeIBmsI6jv3cxyhZ/pmomRR6u/dkVvoHFat/iCKIBVhgJoN074VJ5IyUvPQslxvYN9yLkuRjA zQC0q3FLZqWNKfu56Nt3gkwjqTsT9M8IDgLEPr4ELCswd9x1iwTAaiyKZIDPfuLxE5wcfkc4H4YpWTuaW/QOvZFVjvN57es PcZJBJfxTjZcrQPXiHZSW1zkb/cCvWyW7ygqvAnHGqYHw6VxXcYN7EKjZxRKPR44Nql/eXQeR0H6iE4Xgr6w7c5b84KBXCd uVALQzzhWAIyMg+rarzSgfYY2R4ZWj5Wc1uL4hcrWhFEOEFhRRe0u2o15efKEKZX4iuViW7BKr1twiTbF51dX9K4/cS0AdJ iOKQ8kuTRiCu5ZtV81SAQnB4WJbYgmjMw+ohbY3rEyECtQlmTM24Yh9o7EXjKZWO0pwThFUMfAjq2LCkiaplFjeMbzXArhr tUuBB8IJre8EPduSiVho86aP8IxoTR+SgkOAa5RdXMJ+0NRxhnE8wdKEsnoLrhOmhkbuSEm3dJ4HJPOGLNGjDbO6dV8tev4 oarEjH97L2uxp29ZIgAdqVfAEmc9VS/KZVjGq0Up2e/AMRR/ZiaMj9g4xRi9qo/UQOQ8Vf5Nox1NS3JwDYQGs+WE0Zp7mU7 H9YL92AX9qV7Fxkp4NZUWduJxe8jsw2mOupNkM7UXrRNFaS11CL90PswjAi+rvKuk+PZg6pM0dDW1S+364Tgcdav/wBjS/8 AQb1X/v8AJ/8QUUvnyG36/qOYvOg2soyTBxnFYEiGQoUM5wOWShZmGsLq0x7eyqhKxkSZ3v8FvnX7gk7d+qU7Gh8H1cMSHH w7pubmAe9zqbj3RUPj/wBiy/8AQa1b/v6n/Bill/Y0v/Qb1b/v9H/8HIKocebmicp6uuSjdlzGQyf8EA8jKRUFAAedGZKyz pIeYjCo5dLtVuWdOUa9TlkG9EdlWDXVXOJ1EUTtKNvBd83hF7EOZNFdOYdLQ3X66q+oUjbyGiYW9PpBYHAxNNYhoibby/Qb 1X/v9H/2KMw8pzj9y7S2pi6lTRDGNM0Ys2TIHjs4+mnk3InV2hiV6Vib1V1HyExdHVKVc7Cq7zAx6Bon2oM6c9Hk/wCg3q3 r/dj8tw3YbAMds4yntR2vaNfPVZ3QhbeQtUzFQre44ZiiM8BguDyo1NQieUn57/bQvFIBk9yCb70Z3qcyRX2hb6RlqAOJbM KnpvWCUp+NsmsWX6GpefEhYwpcnYsyNBGPj6Z8P4b28XYZaCd895XPuSbKesIIq0AHBLjN7YkM8DKu8YMRlDgT/wAXItrfY qz90l4DmwDmQROJq7s+Wk/M1u+F2mUyUd78z4O6r2AgeOv1WNhv5Vlq6Tgm7aH/9BvVf+/qf/EUf2NL/wBBrVc/9dk/+Irz rXt5Gr91SQpyFcBLplZU1VTfVGnnPWzKKe2o+nlh3JIusLv2ybCiwGsK33qX2hRivN2aPSR3vGhLD7lxxQFzAJBNBOOBrT6 rNjiv6yjsLSvxOvcgViLmOblUCKZCZC3QdVOGqcewRzj3c3S0KSc7iVyL7RdytsqzDASfdvQkdhDltx9p8l1a+F7DWaUq6c RWzRN9ZCCI5I44AkfPAriC46yMPIxn3iM1+5PxnI5h5Uo4pVOLAib1NxR/Ysv/AEG9V/7+p/5BUDh9KK/0G9V/7+p/8RWni igDM/sWX/oN6r/39T/4ij+bWq5FuIqq/wB/U/5QoA15PRjQrJv0j/Qb1b/v6n/xFH9iy/8AQb1X/v6n/nKFVsao7SZTt7mf /vLNw4u6kcx/AMRR/Ys3/Qb1X/v8n/zFXlM7n+b9p5Nr9qHt93d9ixJ5xgGMe9RdWI4ZC/1TKMbAAaA8Ii5PZtG/3Ruk/Nh HFxvrnD7zgiPnVh0PXMzQjh2yEaahiTj269o7e/koL1fKJBP3ZKG1/wC+K4u/ZYkqpn0tSZaM2S+tThkO9Y7yqwAVz81B5J QYj4PTm9Kbqm4cYiotoxJ6KwfA62WoPPfClSJ3zwhW+gtEUOnBee1Ix7a31ne/AH9T/wCIo/saX/oN6r/3+j/+HqisRh2eR ItHhpbLwHfTGTXtmiqvpRT7pMdhPF2esj0pmLa1zECjgN03DEzpCK1Ly4ekNgoidfbNprkkZSu9fNu9vyzzkKRsa/Y0vbW9 V/7/AEf/BSVAwXgm9soJjB9IdRsB2qd8YZpjSSX7EJcG+dU/Ur13T5pvh4g7wX90IrakJS6qfJYmzRQehiZMKQ41B5ClNs/ 3Y5GnjYkPCdYCye7IbYHsbwCfh6plFfu7NzqBK5+hnw3e3g+Jsc4MkMVOygbj2MnFvOdHVhOAzNNda1jVh9aFqsOAcCqTSy 5OKSbAArVh5gjClTM9ws3pws0pS9Va33TaS17dT5d5pj/ZNYuf6hi47j2xg4abdUayq0IO/MSQZ8DFPrxiEF7pfZ1ZEgkDG eKaYmU9wikcSPTzX8C3cttdRsvw5sjLEJWcb3kYFjHrCycv1aveNFiQzcLZlM3Yiwi+W/hHg8uNyr4sB4UDquqpCfc0Soi5 KGonvkhGeSjp9njlsVv8GOV8/saT/oN6r0/57R//ABFJ/Y0v/Hv1P6Sc/wDiK5/mU12xhY7bKr6b+nHlsIuLvUbc7QpDmIl FUCQB16Swti/1J2t63T1P9kSs25diB0bSmpJFCvrRx6mmFQy6+s10nYQ0G/Y0v/Qb1X/v9GP/ISUe90rAk4BjK/IWuCpP8R gATI3SiQY3mSfntRMR9y1pXGba8jLb0jZhJlA/DGQ8FLmrTILrGaRqp+M6gzrs4a1iaEdXv5dDSK1w7soDNfCjABZqt7WeT GjdwsNt4wa4mFeXX7aB23+dOs6ZiIzo/wB/U/5BlTN0Wp/6Deq/9/U/+Hm8FxIu0tmohxVucBD7p6CjCs7eO+KAMz+xZf8A oNar/wB/k/6UdGX6Nb/6DWq/9/k/+SvDmMUNin8BY/0G9V/7+p/8RR/F1x8K0R9Q/wC/ri4IlDqjLxLbS1Li/wCg3q3/AH9 T/wCIo/sWX/oN6r/39T/4biWt3VJc3pC/9BvVf+/qf/EUf2NL/wBBvVv+/qf/AYKndRMWXCm7hL/9BvVv+/qf/EUf2NL/AN LmGw2Xm5g/SABWsDx6kPcM6Tn/6Deq/pKv1G3B8rj/sWX/HJLfax2Bw5X/AIitTFFAGZ/Bxr6A4OyV/wC/rj4GkXB6cm/9B rVv+/yf/RVc9FPBv1uu/wDQb1b/AL+p/yBRLa3gr/8AQb1X/v6n/wARWpRigDM/sWX/AKDWq/8Af5P/AIij+xpf+g3qv/f1 P/rP48ADSUf3DR/oN6t/3+T/AOIo/sWX/oN6r/3+T/4itPFGKAMz+xZf+g3qv/f5P/iKP7Fl/wCg3qv/AH9T/wCIrT/CjFA GZ/Y0v/Qb1X/v6n/xFH9iy/8AQb1X/v8AJ/7ONNk4KBWc0eXc/mN6r/3+T/5nm1kzzfK5xgym0JS+snYFj+ROTB4wbGVhFA MVLIRrjwRQ7ikWLdAT05Y1luJiBNkbRqdtr9MjWZJUSSlSwhALmU6o2TYydGNIowIgKzjj1BB1h2J534M5T9Poq5fcN2SBD 8j/PQdHRXOU0FK0roD5Wo+Hbx7C+1m+ZtebXHZ1HYcZPIPPOMqLM5WuV76yK1u6H5aR3zq8s6avojc91AbCUvsE34EYRlm+ pwezzHFxJRs9BLmEtniB5ug3RA3EkMPai1Z6N4e75PvxPYVSENe4rIfgYTfv+1MPl14qjl+8v/EsCaiq+P6ylAn0qaRis0E +u+zBx8z5QwaEzcMwg+QrKq6u81fiLlcmTzmzMGLOG0MN4ochSuc1xEPWwT26rxcCA7U0KoyksyudTtcGOEqZijMoBVgrjw Jr6yhi4uysjhl1a3gVDyFeQIjkApzB9EJgVc2tzk9WkfPHmrVOlrcyUpjmOOez/tp0cYkdzj9LmFR3G8DSK4iTm4HjdywS9 VTPXfwjYqwsqjtA1Uyvl6976r26yAUmpKSTvTkJFRk0eeamXee9jXLVSNMZTVPKWUNERFMJDveoYKKTEUKRbbmKOQDRyuQO BVVJykPrvdtORPQOKWdgvjAxKYCBSOPnslTOAQEGJXMHVKGUZZ3wXUMJcl7ReIoDzFeMI8h9x2dxjZhXslm2Kn/aUBwRgjr sxa0EGNMD02KDPkvFrJgHBFUR6xPHMNYeCv9hyaYve8hrj82cWSoWhk7IeyhhsI+Rdu3Dc/MMAdait/D/AIMtmkAuLaWJoJ AlJQ2L8jYEAG28CrYkrIdVYDyJ7dP6gcV5J5wbHmaObMNFFQQSFjcvLECDaOBDuBRKpkF96yTuY6CvFVhhNXi6lqiQXRzo7 Xmd0GNNltemNyF5AVpm7JareRkcumIAL2BtdbI2zmAP3U2QUCKrG8Dofdqicv8d1NdjTOaqedJvF4hwbXb+/gO965HFaF2r bT0n4/cuYw/IcGr17ys19w5Tu+u80oNI2h06bUN039FDJ1kG5ZdvkatKIUogSJXNNqn1uNc4c3xhIydW81chnN9fAI3Z0Mk MZofuaPPegW5mzokRGq1jtJjYY2UnQERjFzbVJvyggTIFlV7V0zVJD1K2nbv0/Sg2dr/z6wf9+l/ojQ7JIchLst2H5pqguf 0odjLyNE8CH4LTXhKyei2JBRNdHQi7OAs5t38V1jl+pydEmwvJLEEQG8WJ1hMMOqGQXrxHvGEvVibyg+x2v/PrB/36X/Cj7 Fa/8+sH/tkx4XNKlFEfOzswV0o6JT8JkerhYL+MfNWrxtCEvICADW5mD4ikN/0E7L/wJT/Gpvsdr/j5kx0Jgye6FTsjs/z6 ds3Leri2BEHq8K4b/oJ2X/gSn+NH9saX/wBBOy/8CE/xqY2dr/w7er2Fqee3KZeKd/z62/8A36X/AAoAh/tnS/8AoJ2X/gS n+NH9saX/ANBOy/5WUrX0mm+b2t9Kg9xj2+l/wo+x6p1Rd1hr5+l/woAh/tnS/wDoJ2f/AIEp/jVd7nw/JTEE1yxhQnqoSC cHLn8YAS35L7w09upl+fWD/v0v+FH2K1/59YP+/S/3IXIeq0XxSN4Bf5xKqpvdZTkyoatuSybpqG6K/dGB7U+7t/C99/aH2 uewk/zAHMR4efmmoaU5O0ikUE5rFh3nzd8Lv3o/79L/AIUGztf+fSD/AL9L/oSIpXOz9Lq2fY0aX4P47HSFTl3FrKcXQM+9 /CT/NF7qWBvlpE48fD9L8+9S/k/3aqGxBw9ajc4ahcPLfrk4Hs/8+sH/AH6X/Cj7Fa/8+sH/AH6X/SrVA9qCS0GayAx6ooy wzV5H9woX8VQbpYDH6UdKu5T6jvDOH2G7mByWyXnzK58d+x2v/PrB/wB+l/wo+x2v/PpB/wB+l/txZi148kQzunoFotXEO2 cuHQEoOZKDsD94mn7h5NqQzkHwg8/1NadgBhX5B7E34DdxazALTBWqC1R9I/LrB/36X/Vj7OafdH3/AO/S/lIDPJELo4rKK UWXFZ1bMB7nBdFymjTEguBth06bluKru6Gpq67/h+i6xaVrSdT8mUHwWzEIPKWv9di7r837Awfe/wA+tv8A9+l/wo+xWv8A z6wf9+l/vrWe9sgxzujNkRmbH+n5VfHe5ZVjA5kqBsoQlDHVfbIK1m7MJ2nn1qiTDGBAepm0gKjGf9xY58u9y3778n6xwnc /AM+sH/ygp4WHpYv/AM+sH/kci9MGS8NTu9iamh1Y0vEmXhRr+YLpc+XzRHygvxBp52yV5x9zYHx6GEnGfKfkW76H8O3Ayw rjxhwJUPrG1RGok0Rh8dWC/v0v+FH2K1/59bf/AL9L/hQBD/bGl/8AQTsv/VjA1xB9S4s/AKCdl/4Ep/jU32O1/wCfWD/v0 n7SgJ8nqv2Wu6d/79L/AIUAQ/3uwu5Y2T8H/wACU/xo/tjS/wDoJ2X/AIEp/jU32O1/59YP+/S/4UfYrX/n1g/79L/hQBD/ AGxpf/DFor2QuSR/ABo/tjS/+gnZf+HLh65V7mjz+fWD/v0v+YK3U15HfH/vvn9UTjXvaiaga5G4V7o3uSQLUapqEqajE1G JwazzYeDP+fbQP++SV0cvck/z6wf9+l/wo+xWv/PrB/36X/JsOW4WNeZ+pdXe97wSODgNHgmCD6ol+WQrDcn+tdd5c8wE+H tT0/6Ml9LsHwMK+Y0wFROwei2pNfJXQ9G9lljq5sJU+/S/4UfYrX/n0t/+/S/2CWM01ezS4l7t7mlqGN8Alfuog2FBmrFmD lqgV2jk9FXZ/akSeo05O+bfLqL/FHyto4VKIey39Pkg9HscUqB/AJ9YP+/S/fGBPb6O/n1g/wC/S/1XSIVZ09ZY4bmPfqoH I3tv0K0Fme9yCUBiX6UZprtk1doWxFTbfC+j6Qpo9Py5rQHrc8TkOaAEiH1j2N6TXcF76oms+fS3/wC/S/4UfY7X/n1g/wC /S/4UAQnWdMPXVLI/6kNz86ZunEKs0D97DL7rEr2RSdwg+6PyEgN8HvyvkDjj/wDY7X/n1g/79L/hR9jtf+fWD/v0v+FAGL DDvY7cjHbBfxay2FDbfrqhnPQpGrv00MVhSFt70amYxFxYKz5J2mJyujr3ehbFVq/dfWRcNOvhYX461/sVr/z62/8A36X/A Ao+x2v/AD6wf9+l/qECWO9oEn8zU7nkzmlz2U8u4Zt9ratPrTk8f6H75eFv2sE4MH4rMZlRTMCrdP8pSPt1Gu/i0DaUeuOQ t02dr/i3cc8Bwdo3HQSCl/PrB/36X/CgDHnt/N5q4q21zvy0BzINzR2XttJuG45h1p5933tBAV4B6NWcmTgnZz81fFJDvng GwYJDWdsdAS9Rl3cpLb/z62//AH6X/Cj7Ha/8+sH/AH6X/CgCH+3SI2lsKLyRWgBJ7f/tjS/+gnZf+GIf17C2tvf+fWD/AL 9L/hR9jtf+fWD/AL9L/hQBD/Vita/8AQTsv/SvM8fK3N5qjlzf/4Ep/jU32O1/59YP+/S/4UfY7X/n1g/79L/hQBD/bGl/9B Oy/8CU/xo/tjS/+gnZf+RQz23W9ast+fWD/AL9L/hR9jtf+fWD/AL9L/hQBB/bGl/8AQTsv/GhK2pR7E9l/AKCdl/4Ep/jU /rYzai9Oz6c/79L/SZEmJ7P/AJ9YP+/S/uCPDTP8ixD/ANBOy/2TAkA7xH3D0o5X8Wsq/sQXLa93Y3qht+fWD/v0v+FH2O1 /59YP+/S/4UAQ/wBsaX/0E7L/AMCU/hXcY0O7d/oJ2X/gQn+NTfY7X/n1g/79L/hR9itf+fW3/wC/S/5LEQa1kxl/AEE7L/ wJT/Gl/tjS/wDoJ2X/AIEp/jU32K1/59YP+/S/4UfY7X/n1g/79L/hQBD/AGxpf/HNqj8XyNI/ABo/tnS/+gnZf+FXh73P8 jtf+fWD/v0v+FH2K1/59YP+/S/4UAQ/2zpf/QTsv/RqQ9hL8H3y/oJ2X/gSn+NTfY7X/n1g/wC/S/4UfY7X/n1g/wC/S/4U AQ/2xpf/AEE7L/wJT/Gj+2NL/wCgnZf+NZp70R7nmc1Zt9i/79L/IOKpN6S/AJ9YP+/S/uBJWNI9daV/ANBOy/3HTrJ7rU2 L0p1R9Jng/zYQIw52G3fim+fWD/v0v+FBs7X/AJ9YP+/S/qPZMWY2ylG/ANBOy/7SAqS7nJ8H1q3Z1Kkt/hLMFq95C5bzb+ fWD/v0v+FH2O1/59YP+/S/4UAQ/wBsaX/0E7L/AMCU/wAaDrGl/wDQTsv/AAJT/Gpvsdr/AM+sH/zvb7UOzev/AM+sH/fpf 0UMWf0B7b7O0Xcv/dWAJm76v2dxx/TBxw4MeDS/LVta8Wf/8+sH/dve1ZDS7e9Wf0ih7+l/woAh/tjS/wDoJ2X/AIEp/jR/ bGl/9BOy/fKRkQ3BAjipqs/z6wf9+l/wo+x2v/PrB/36X/CgCD+2dL/6Cdl/4Ep/jS/2xpeP+QnZf+MBc27G7yft+fWD/v0 v+FH2O1/59YP+/S/4LVQCcRx4wucPsAp+1rBhHBS1wYcjCvH3GOKTg6OcEQh+EVsjAL+PzDcC6+1nU/0BAqTO4W/n6k2cpC SDPW9T8Wyg/l1g/wC/S/4UfY7b/n1g/wC/S/4UAYVnp/lBU0qDE5b3KO3WDiAB/iNXOyOwBOo0tIvYO3dzyC2D1VMVyBjL9 b+SE2R0bIRl8gECJZ5Y3rb9HNhos+x2v/PrB/36X/Cj7Ha/8+sH/edl0TPBDxE/AAtP5/fEmhjvPyUT7S7HRR0jgm4gpT5H xmkkdwO3YOWnSXXo181ijZGGg/xSwTy0NQUELmd0zLN/YrX/AJ9YP+/S/dWSE5U0/wCfS3/79L/uPLaHLhY1QWSyjCR0ySm vxXc13O5i5Pa4r4em/h/hcoxOnWZWZG0l72xzHzqFwek/8yUJnGFsdKfe3i4Lg/8APrB/36X/AAo+x2vH+iwf9+l/woAz9N n4VNLHphEFbzMY4uYxUilhFPie1LxPWIYB5fPq+2dL/wCgnZf+DDh22J3rkj9Xy4u/79L/AIUfYrX/AJ9YP+/S/nURRLQ4m aX/ANBOy/9XEyM7sP5O9r2D1Fap/xHLSy30Z9kto+fWD/v0v+FH2O1/59YP+/S/4UAQ/wBsaX/0E7L/AMCU/zRsF5E7y/oJ 2X/gSn+NTfYrX/n1t/8Av0v+FH2O1/93HK9Ht2r+LLUE3ipQ/wBBOy/8CU/opU7Q9v9F0Tmo/kWTOh81C9rmi+fWD/v0v+F H2K1/59YP+/S/4UAQ/oBfvZ17Wf/8CU/xo/tnS/8AoJ2X/gSn+NTfY7X/AJ9YP+/S/cDFW9Y7/wCfWD/v6l1DvXHH/bGl/w DQTsv/AAJT/Gj+2NL/DPvnQi1HrPf+GXJmks2Of7m/79L/JMXhH0C/AJ9YP+/S/vFQFCQ5yaM/ANBOy/6DNxX0xI+2dL/6C dl/4Ep/jU/2O1/59YP+/S/4UfYrX/n1g/79L/hQBD/bGl/9BOy/8CU/xo/tjS/+gnZf+FHn35E0jbs+fWD/AL9L/hR9jtf+ fWD/AL9L/hQBD/bGl/8AQTsv/GyS0mN0O3r/AKCdl/4Ep/jU32O1/wCfWD/w4k7CkD8ilw2Jt4h/79L/AIUAQ/5kji6N1V1 L/wACU/xo/tjS/wDoJ2X/AIEp/jU32K1/59YP+/S/4UfY7X/n1g/79L/hQBD/AGzpf/EDxj9BtRD/ABo/tjS/+gnZf+BKf4 1N9jtf+fWD/v0v+FH2O1/59YP+/S/4UAQnWNL/FNivSi6VkDi+NH9saX/0E7L/AMCU/wAam+x2v/Prb/6Ohcy6DUkil/z6w y6Xolv1PTIz4D2p/oJ2X/gSn+NH9s6X/wBBOy/8CU/xqb7Ha/8APrB/36X/AAo+x2v/AD6wf9+l/fPXEQa7R9n/AKCdl/4E p/jR/Vita/wDQTsv/AAJT/Gpvsdr/AM+sH/hkk8EWqsq/AM+sH/akm0QFMe9Q7efxqt/4Ep/jR/sHbu9YPXwu/AlP8am+x2v /AD6wf9+l/wAKDZWv/PrB/wB+l/neQFv4dsyykW3xbE/e8qRXx+JqqQTipmrL5sZM75gqwO/Nh1KRCFhMBhOKfzvwDMKSTd m0YlTXX2lch1ZAt/5b/Kfk/vATiWaj3YmaqiGIkRv/DBtGQ1opI8ToilYCm6YT+29h37a9V/plwHlXTgICUAZxuRt/ybCTn sKNb0+CbSvFlxLZpJPDoWk+NO0uHtZFResjStTcxdLwowOr/Berenice/wC+qT+z7n+6P++nBQAIJQsVT8hyjLK/f9lO9dZxpHWf VSeAj073+5s+Nh2HXP2CHrZxedlpLgtr88iGijfZP5MNaA/rhvfGJo2F56eGsbUpVL3bDnY1BXZg2PSmf4Gb2HGqfQJXxv9 lxDg37u/8xpFxzj58cQrxFnkxXzMk9mGZbMwGWW9fJpa2+DWoAbCSFpMZkGCog8zd9G/57BL9Xgb0r/62BOOGzwX2eRA7zm 8AfQo/s65/uD/voUAVcUVa/s65/uD/GZ7TC0pFZ4sw27GaHtADz+zrj+4P++hR/Z1z/cH/HI8NBRoNGv8Vil5s/wC+hR/Z1 a2Mm01JbFzXCw+zrn+4P++hR/Z1z/cH/uXuOg1Ar/s65/uD/yaJp5aa/oS0m61WeRdJSa+zrn+4P++hR/Z1z/cH/kOrSr1D a/s65/uD/oxAg3fk/wBxf++hQBVoq1/G2z0Ba75Pk+zrn+4P++hQBVoq1/Z1z/cH/fQo/s65/uD/XF1VGNDb0k/s64/uD/v oUf2dc/3B/zP9NuSnTXb+zrn+0X6YszIz2gl/3B/60GODtBPw6Jig4y/44WO6mPT8sh0FmIqGp5Oq/s65/uD/XY0ZZ9qGL0 sn10WlNgUCa+zrn+4P++hR/Z1z/dH/MK7JPGvFFk2Scn1j/wC+hR/Z1z/cH/wPdKo3Gt/s65/uD/hqXf1gj/3B/lL5ChRaD Vr+zrn+6V6Qfmh+zrn+4C0IvnZSJdYll7ge/oXoq91VMCng+6P++hQBVoq1/Z1z/cH/CX3YZ1Sis2s/90gOt1Qf/s65/uD/ HM7ER2eOTQI/52ZOPfVMb5Lte3l/85HG1rDO3vn23SiDqIEm+zrn+4P++hR/Z1z/AHB/99SXJxJJo9Nti6v/17BE5pNC6gs 99CgCrRVr+zrn+4P++hR/Z1z/AHB/65NCOqKCy8Gnt4p/59QM7lSW79v28TyJtAWz+zrn+4P++jU0Lxc7j/51cOm0Za/s65 /uj/ahNy6rf/3R/aY7BuZkWUa+zrn+6K6LepNy1gm/3B/67DCFxAVx4Gpn5m/58DG5eSP9ft0VlEaAx2Wr/s65/uD/AL6o/ s65/uD/EG3PRKBvfY4cBR7NpF/fQo/s65/uD/peRYRdDie0qg/3B/89MH9Mbu0n/wC+hQBVoq1/Z1z/AHB/23WR6Can8i/7 8bYb2Su/s65/uD/nwFq5yn/3B/72RPLfGc3/Z1z/AHB/72VZ5Tjh6l/72vEf8Hk/s65/uD/hkUh2ub/3B/30KAKpoxVr+zr n+4P++hR/Z1z/AHB/20RBSfTITp7Rwm5m/wC+hR/Z1z/cH/zJmMlbspV2xHH9my6HsFe/s65/uD/vqgCrRVr+zrn+4P8Avo Uf2dc/3B/21TUBqUEy9Xyl1r/56lArLU1TeR/eQcFt6XuF3iZT5kb13Vz+zrn+8D5OaqQCCxVar4io/lZoj56Bm+zrn+4P+ +hQBVoq1/Z1z/cH/fQo/s65/uD/PW1KOCCqbR0iKH1AyS/fQo/s65/uD/ocrSvobaL7jOZ6jz3YvCr/s65/uD/voUAVaKtf 2dc/3B/94WS2Nvx1z/76FAFWjvVr+zrn+4P++hR/Z1z/AHB/95XSHge6Kg/s65/uD/zwCr3am/3B/nL5QnXzPGi+zrn+4P8 Avqj+zrn+0C7DkxFXVKGFi+zrn+4P++hR/Z1z/cH/GY3CDKzUOp2EiN9e/wC+hR/Z1z/dH/tFfKl3Rq/s65/uD/fyPr1ke/ 3B/zU7LtOmLmxM8hAE5yp97Dp+zrn+5M1UcjoWsETa+zrnsg/31ZT3kFB2ce8UxCbMv6Sn/s65/uD/GI6FV5sXW3fp61XcR rRVr+zrn+4P++hR/Z1z/cH/IV7HRHs8ggIa1tzfUUNN6AZhoXGkDJCMWCVeyfrPK3sky+9LhOQrneY3f+hBQ1H6qR19D3Z/ 1ZGw0leaMMVRAhFRGnB9ApoT30Z78py3oWcI+qm47fci0G6o3Ys/rQByuj3/KEqvi4F4nDwa1ffLcQQ6r/ghsGZ0c+78xBG x9pE1U886EznCj9S0VrpUbdgUh3g8M+cpdBEuh2m3YEExQGK2fmbBxCYiVQvd/rEVb4s8R75e4yfZilQ6fo2n8gt1dWhknq 1M0TKSFfFKTjA/YvtE99BoZbVV00Tz5LczwrjWVkAQ4S6Qrn9uqkBbCTVwPWrTgmj2KC55YBz1qE2k+JQjDHm4wTRdAJD1z bLcqYziMQXNHO4GXtSNMTMdyMiSsC/xhCAmNmZ4ij2rjmDvt66WRKkt8O7mob7ee8d/IdwqEoOuDAd52PDKyQ3KK7WrCsNA uqL7k5o+9yy/z9EI20fHTJn77b4IKbW4CeqXlHJ/q8t5tuas7FCFOFjoQCycjhAIVWBlQ4UIq1Oh40O9kg/6yY3wHI32uKR oDa0sHt5mtz/PyYVPhAyuyO29JeaR6VE7wWX3PsX9iZreWPLjXbNUIodgl8boKTGi+G/Esd5/GkHkfXTV8WcuN7/7So/ctN 9lYkQM5GCWAeqRDVedtz9/mFxQ7z9cZmICJaQff4d4G18nPeQnbwoluHelBwlK6nNqsJMI4cU91lfuaqOdvz7nRi30FyWv+ AkhbFooiQup9OhZ0gZR9c1YZJ2e1sxUaHj9ereNcAtxWlOZlZDZPHleRL44ly4hcaTJxtSc/vFAXzesLjHo0DizqluMeRDZ jwuTHs5RdrlHH7LX4np3T0kr2eHWmlC0ohLhu43P+8KjqVJS4+phBUhOaDEv1UAUtUkESsy0mqSQhQ4QU8pppDE7cJsLpdM HYBrFbfQQwqCOadFkEQQO3OdJg469YkBD1qW8ayrBSilNa8+xry0+GsMgHwXoeuGsfXxp6o9nX2t2hh6qfAMKE2efX7/K24 EtjK/wvPt5hj21T99U2yd00cIi9cWtet9JtEeJCQ5/RJb7EUioQRRYLzE/TWuizJhGspXm2h2z0mhJmBvPNytTocvLqtRyM ksM/jWo1c299w5sq6K2c73wZJfuewLz8+aJ9tkAM6PIP+6ow53YMszMoZo5sW3K2YrPyHanzJ84YLVq9Kx843iTQSSHLgfP bA/3Vh7vx4lvSVqFwDfpr490+l7pQ1tUIWasgewZ7NPTFJmXXvmQ3fcWmSvgZ1kqclG6QlC7szLZFkm6uaBlgcwkf49k9iQ jDdNKI5H9EG1Fto6CSVHSDgRlX0pMpM0EJfg7nWCCs23JHe/Pl9WnNwzobCgPfS2bzHzTCR9ruu+qjY7NnmrIcP7rjovz70 fJ9Olt71Z6+TrEwJgcFQii4AKdjzYWqoNJcxOSDGsZ9rME/e62Y3KQWMOpO/xjV9hM8N1zdbtssycalH96BamLUJ1Dr/Bridget 5X4ln4oI3Hb9btcvlevd+H6MaNAlGvYvZL8lgINcbmjB0m0Gh6OcXI6txaNgkZcOGQVzt/yrfWgIR8cqT41Kpt85GK5szih CtFTc9CiAfIMF1MvBATnh5VpLhok4wvTgebWLKZwuvdVSPsn4ToW6BSwV/bLKGLT/nB3oTwHfQnEsh1Q4JXjK06sSlnq+Jr BmF7uGZTn7kutoZLaqtPoaXYJRjJEPOiiIZGX1K88Ly0eAf7iu4yJjgk/+g5asgkiuHYbM14a8aFChR1/fvV79QbOQlilH/ 5WP3OSIZm80nuxucSv6kqmJjSH3jO0sUAX8t8kKF2Kp/iK51uG+kp6UVD0DsRIjZT1zzJVBHXUaXmLnpqHqOyeG+hrE9vd9 1W4V4ym5Qa6PdOYWGFvFhZh3wQF+6BrE45D1eAy89Ic5Hr5+tP9szxnZhpcAc8gvBznFvb3rPRq5ZsWYBO+70tIfXiwe86z W+ebEKnU3OsepdczWcLagCwEbOyXipnTSAxiQRt4J8Kxyx/Ee0tvC+my40Mg0y5GIt3/POLH2hhySeBTY2duJoeMMKHh8Zq GBmtO5+JWsNoH64yEP8PoObTd53QGP7N7MLMm8UlMb6UiXlK1WN7tw0YOpsxs7oy2XtVbjCKqDWM0tGp2yXtt3mNkmW8fI+ seU0EC6q6DXJMe2cdJ5o1tIaql/XPXthaQ8cknr3ltD2FGkosgKS68uYgZC8mfoP5uBnQilppBwFmMNx5hBlfEOrw7/roberto jt+7/5bttx3+8693aT8W+PSC3p6lnDZa3LDOgDm4V1f2Wa62HMzfD5pwWkajs54NtCLuySBLl5c6rZzFcbjSnHBheJ267Pd pQJI1MtLG1sU2DmSuGAMg3e9j3Gt3aM1tIJzXP0qed3Uty7JvxCBni0Qdyl+Au9CISpcYT73B5Fu4O9+b8IFeTGOJ0S2v3l si0kIAn3e1KWdb8f68pwazQ2BfpB9BAwbsjBdgogJVMYAHJl0l71u3U7qBacBS8/d3UFla+wCaewurYGtGBERg712ymYk/j xhsfXsyNIcIInfcyQFsd1dtkoGT0IUVzXK7KMXDIIUQi9rj+AFTZaC2gt3jY+wHfMOaFSWQKm4ceLC9VpBNi4U9f1zezyEs /1J05YBLjxv53aoveApcRaRoTFUXSg0tQVITKQWp0x7e3appv49x+sC+N/BYYTnVTgDymOzH1AnpdQvAoHGiNbC57Q29Ypq NeI1QfxtVAdBJOiPm7MZFShNYgUjx/9j13YwWuRyynGGaw6q6OfWMGC7dbRZ7kesO5phuuTpn5zHtuYujD729cFzgoPMRiq 1xBTAEvEAOuPusHofY0SZLI+MqF0k6a5CWuLp2nxq7Do50gHCqO7RYH6cyEu3/gL5WrR1CcBvO6YdyRA8/csaQqL6wP3Xne NDUuuKBno9c5yHYZ+Diiv97N7XCPOmBtzPoMb1cEGNJaHnSywXNBF9c2ipMMgu4RBf2vuhVRqZ/EVk5wiZib7ll+2mgmvLW 72tebo/SWogSXCX20annoPKsfZPn1cGFWU6YNukRfjzlcRzJKi2+gbfuHpysZcRxzM3i7PmwJWYhIyoIjks0OwOg1AN3pCP X5IA4/Odil5IqNi3/NxD6gcdLF1kUag5Da971aTm2j6sXjDC2GmVt/fJ08vbxn2U64CP480X7S6kWzoDBAeDD5XmaiHNSEb 5RgsUi5/8P+CPRQ9by0XO2E9dLckUN2ZwkKHDyguxIvOHis3T1oqPjAlEjpjw2jecnsh1v7nvHmDUbASb8OAXzj6woCVcKb phWnmABD2E3AyBYZVb5wu4eJ8w2EiLZ2TtGAFbBQFXYXa+EtZvP+Es+zWqt/kXn4zy4323Nlwy3aiPjuDrN0Y84955UuhnB RWFm5YAwhHdjv2mcO+l7eRIbohJywcLxNrEnAOM85c/iRpAis/UymLyfe1v4qHlisP2tFHE4bSor6jHn9UonUJi+C1lb2s9 nhNronpETfUP1Kn+zmj1wKbOh3L1OvyqM2FwXspUyduBedg9H0CeX6ePADcuTsp2aJSB0z83VatTF0EaFd40ctrMD2+JMt5 jFZLs2e5qxWcwJ8cYmEPOPis7y4gnKelzLypttjeSA/tN89xtawu265jsbN3Uhbegqc2YPCcafnTC64YGG81+3Pax7frF5R 5JvJH8EYPlriIyj+55n8O2Il7YYE6apOH+OJna4zyonwtRriLR8aq3i0Q9cfivdtI084FDC34lsEvteIAuY7ACKFXkP5eDM TqxxaQVvy8i2bJLWW0OlqKyGMDNzTgUHJHMTVCV2gHcpMsztnShG9b7xjJYmsOq8gC3NfyHwoOYWp9jcjBwzDWiqowLcB7i S5dU+9q0Ljalqub8HbwMl2KGLOyt4ocggCvwfhGe0nuCNa1Q0DkzqP4DAEbsKK1qk33HDenW+7fLQgz64Yvki5aTttfPtV0 bQFGJm0etU4v6jYavfhisJUh8FWbWsx3mZXhZl1PxieQ7RzXZ0gD3+1GM1NKM3s8DHfKw8FJSOwwmaVYrP4iet1hC/C163g NXcK5Gom2ntbJd8rW99gb4TxT021BtjY3rSPtpY2n9eHRXvt6f1jyh2JohQGuD/pAztXVNP0HACvGxdM8EZTABDrfW/J8Rt Petx5kwvmYph6Nvrll2BtLQ7BsJyUDHFoCSK0km7z9LLT59C59BQ3rxGWDG9PMIPi3q5iFFUUF3yIz4Fw9D2PTUoSd9fAHt vr+gyD4cYTke01Db5zipi3t1Mvgs9VTFKsIeoRpL4TpzUC2N2X6f73UuzlU3huTO7u7T+vjFK6tbvlHcJx0CMgtIKPhpG1W oDsbYiZN6URl1FDiDT3KwhTJDtOY1CBaVoOcPdVv7SZSy4c0Ytr2+r2xuQmIgMw8cs0VT1SuWDMluLegeA6mKFuR9E7rA9d 5n00I7FMR65+/gkIlVsPLeCVBwecoM+0L3I2K71gy/AAg/6q1SDoWuzG4uXBCbgGf5WTPOus7JbpgUm6JxYWpt3Js4+zkeS wxfiuz5rmamGVtwt91YlVOuM5S3llr7v3OMvp3Q90j9owZpCKtXlK5QUK564E5PVRzGn8renActK4NRI3GazmuWeoamv9bs n7aj1Iptr8dCuFY8JzpICSHu9hKxcQoRK20+XpzorPDhIA86XI+tXIz0K8XGOmEGtjs694M9jrivpXx3cbU9kXZ/ATo9AVj C9He5xKqb7/hF6bgTCyL6iaDx0qU5gffvKClsZGOfvBVU/ZsmTCKKDe3hvSgpluNh19IpyJ9dL1ra793ca6BSUYk8PX2FN7 2CM2By9JqMqMwsJ45houW28KR1m/pxaMlM13kFC8Ot5jJNOZ2y6XhFK39CeAmMuTGtE9184sI3vd/3FJa41eqNTo9xGAIek QisNgXWlHXRNlKZls1hRRJF/V66A7esbB3dptyoXH45HhDknSNvJTijL4DOulD/7JpiNg4RlERol+5dhf1ej0VSLh9ZmM1t C1knHZOpMfnU3iWR0Qcz81ibhVv6sbtlaTE8ocYzrB7Y6W7DiGpB7qM2dB9clxU6WKdXr1ECZrySOOhhIUAqFPQ6cd4frqM rU+esxjMiqUB/iUZBBI5+gLF4yuJSZUr9tw3poSP63fUCW8gPiuyRLjjAapiFVwzBGbPt4+53H0wW6Oe7TUfu2TW8gaoPK+ c5jBUJ5mr+XRrRS39sUToDn10rwnvP/EXh/Hb5ghyLZ/p1YhmwQf7HVhhfiVnzlLR7/lKCQLyiK90YVcOgxRiHit9wyI+13 QMwye7UBp2wXMq7HrBTDqkkV3uG9pdvL5OxKavIS4floDkZ05G2YmWyiF93+hyLK7qXXXsRMAjsIjDhnG4mpyjT2n8S9MdK No55WkaXX5g/3jYOtv5ZGPU+x+EYkPplswB0ulVoVuU7LtMWUm5Z1pN7G9+H3oG9psalxHddAiqG3Lf49SnnAtS8mQvYMql DUv1caW39reUIs3JU8eFBpUzxZH/bR6RNPiaRa8IQbPvcnHO58w4l227LrKZiZ7V7579YJWSPefqoLeUpTbdnIeJTLwgBWY CswcSNydKDt1oYz0P1ebQwBn4Tkb984w0YGAem8EBp1+clFxMOUfYUNYGOQXAtYXCQa1I5poQILPUb13pyN23DEspujLiLc lo7mHuKgBN84icGuaXzSEm/pfI93jpaKv/sRFEkhJBhz8aYXMarnNSoQxGQ4BMnCu2Tt8ysJ1vcDPfKTuYINqe7t+0AzEou 3tbf4sLVdIju2RuKi/NmU3hf4r4J1JSjOZ0jWQaB4iJB9qeTywyCoynBzBb+NkGz3NpVtxWIJYy04xERMmzivhaaMgISOJN MjRgy1ECsIcK7O0pud/rFbjjwv0qP3KFNroTqHqE+GMnTv8H8w2yvgjKnV5W89AKOyyw28utcMpgaCyRcPNDBAs5hFIRHu6 N4BaBN6G1RwjysUJ7iosnnIf5JaI4iulHO8zLVZBCPTTGPHTXQGMCEAIQLBVSKukcsG4wH3T1MhVZtiE+lCf8URC0epLXtH 1EbP5yCi48WyE0T7vyl8JZ1Dav5q5hILv7VaMetQtA8auRPjsiurwPZx0rh8p4ahxvm4GCzVp6WIA5hxVMr18fXErxpa60N 8Fbagdqjy2vmiAMZBmsr2iVb1pP/Y7rPNsjlgv3zU5UT/G+tgYxUYj6s8O0WCLRDmvbsHUDC1Cl3bCWUf5VlYXqiafmSMes 87fWfN93Uq3Ceh69aXMLd2ltCMl/xKQo1pODqrIkaevunjSoM4tC/AIatILj+7Vl0wB6kbBDvvVnKY9XVNFh3P0mZgtJvdv /sYJ2Ayma9EtTk0BrssDgjY2i/TUoIUOyqcH8KoAJ6w0tEIMYARLdtxNDTv8khx4TMTa3nNB7LxVvDRz15kkdQzKlkw4FFv watx8q1ZJpozz3X0L6s71ux5XnQHKwVCv8Fa1U2jzCUIAVfsg8JdWwyvfi8iskWOHCu2DdoPFhYTu+RGRp9OPyG3SXdmMwi o8MeJp/SRdmevTbfNH5A707oEqKuarHzJoKxUWHxGXYlUevXWaV5FBOgEkAiS7ZLnZz4rVoXlbkdg+8y30/ISJi2UgdjQYG Jvh6EkvtygLxx6EiseajuNsj7LoxgcvLvICAEBPXRFFfQQpv8Ap63V06YcHedzpLGxXimw6f+EjCF8pJZfT1Y93I8Ogr3py jJI7C4hYx9dX9ikYp3W983zJeMZ7duMT+K1EL6UYFMocaHAy4l/e4PF05s3ynclEw7iQEjINMH59kb4yP2DRQcgt/EjR1tI L8f43N2aFtlXh91bjyHTSPrrXDF8YLFK1KLEuLx1o7GTJ3v+vj5ujMFln9ufFwwHgdhcdpWaiaDIm8pRRu5wsbQ8VfDmpt+ ATGCRjlYmgwDAQ9yK+StrjQ2x8m0UklrN7TCvT3FFtcFwvSOaDHjQgdi3m4Ih6rnGfNWjbz6zljF2KpZww/9W7t2B+nHXpk sK7nMkjo4gPEDg9ovaYJl5vtv1NFFZGMeIU+b0cTMkSkSUOmxdjjFEBlf6u6h2IvEOc4H6vji97kQ3fKFJ+cuTRbXHW5gLB QksB17d5H79WZZT/qB331Hcz4z8bG3B9SWyyamlKRiGSHFrPboZPDyQZb/XQIc7J1fsy37WeHIr9FqkVgpicRWzozdm/eDh tW1E9Cv2U8WBJL/Kube/m4q0Wx7uKfmi9SJH1MaHpRXcLKACvol66Nk4p+D/OTaEPltHBj2gX1Q5xC4NAOUBlBzCY12lZTc tZks02MnA6dgLSDe2RcF2darHqFzq1l47derV2nxUXciVeB3jV9/e34cXH30y3APMqdSnSP7evo5dxHnPTwqRrvwbAIh5HL E4eToDA1SO4f+En00+U11WCbP+tbeLnIwbHvHdac0vgp9Q1zcL7M7nane70Lo9EorzWejA1hzr/UY5tp9Bxo0RvKLEcLTBw uyxHsp44WP6/q5vjTbua1xBOuFNkWCbT6R2dYQbtGdEjF5WNMfNQ2cgJwlfivJCLoGx0OFAnj7k4OJwexzxG8u3Z7J7bMME NTO3gU6tLaa8evA0a9D3v1d0Gj8AxGvRXUyKvFthpBWot0y6sAm2FV2Cub3uiBgRkicTUCmkPDVx5nHkySohMJKAlWIeY3y h60yl4PociueBSBz8xBDKbFcFxHyaZLN81P12fpLruNXQLLq3R7bhSTIgy9wz8k8/OVg0SmItISyLDQtIIDqBN9LwtrtxCY d6/pMk3PvyNoVPd2PaTUseUUKx79V7W3LCKo+PwTGymdgefsDIX4jQTpWsrj9cENKc39DBURcgtgg/OcHpVC3+G/zWla0o0 wkbKY8z5Nv7dh+gUw0NnWDZ41hUa8a5+tYQeG9giAXYY8faVDrlOoI9BN6QQu5ocHKoxm0k2rBCOUY4iPFUfnImopb+nfbL WUjMHVyhmbiHKIFOpBhWI4GNoe9+D7+bTb6Y+RqsYyx7qrjgvXnqyyOxCtoJwfYK4l/pKD5KatBG9fndM9E86VacsjuKczm X3JM5hTYHARygCwK+Plvhd2NBgVcMGA26B4aY8FquX8fdz/v5mFPys+aL2g3aYs4H1Frk8qc3qq4z8I0opFASZ2H36W+wJ+ tZMPhltIVv+PKcBCPyw6yHC90MtnPkDIDR7Cl0nXcfn7GZZnXkfGxoMxOfmNXPGrBY4ABIJ2VjONZ9ZvdSfC9/dbpapH2Fr CtIe3lF4rppux2g8Dqo7VSfkDqx5InMsXi1blZAQda1Ig8v28ImN7Nb8wWPG9kJmi/+vRku1e8Nyam3JxsDThVthhbb5ugD X1LJPI1wQmGJZkRcPB0o3inFbPePFqQjFtitu+ENzEeILnc7WkhXwNZ/amKOAFA30YxcpFLOM/tT2H4efWrG+FK6450DBRC 4JOsyVG0hgA+0NqtmxO6VofewIISLEeMAEshuwiMqnBaLbwaXSd6/lIisB523DoyJbeCgp+PdD7R9BbIsRL5MnvRRj0ZIly Zz0+Mjy2h7R3J1F3ar/059CmqzvYGFiQEpADbzG79A02jmDigvBU0DJIs9KOfIyE6HRa5unOhnHtPVvstoKEAffM7h8ln7L VMT71TRQj/MzKQgFsaFmtbBu81kI0UCppc2t+jzD8QdiANYZ0UXbA81kk6ajfYi4rSgsOlHnxxmazXLfdEr4UTsRmJtHd5w M7AYZ5TTmTAPSxPMaw0FxmDvQ2Ti5dnfIduBT5BvpXNVjKYu23Z+dYAI8feKCj5TPNJZVX2XyBjI7r4pHvwJUSeukaKBS8T dtkRjX+Sn1D3x5zRnn/dPiWtSd3UV4tWCnuAU/Ri3ddUEeXxrOgShoIwb0zTYQtJQVjdbZR4M2V9mtF8kEMJjNKizByU8z0 cneiovJs5pDNGQIjfBt/RWa3nS9m+E0wayMJXP0OprzM9cELn0rzMXx6WBeBDEu1GGk7FnEPFwQaW/Reno-Sparks/dGD6bQjDlavnW JbYufqFcu4VLMVYnAO6iZ232QxfYBkYryCJaVy5foKgLc9qpA0h1DtyzpyitDYy9Kt63TSCNbQ6i0h2N4OlH2lnUNsFi4lM 6Rc2Rp79fQD72xVwrd6DKk/rjOQOKAOol+Swk48jByFwnhBw1QorxG56scfjL9ZcLK7pGAOUKARQjrspoHk9eMLTH6wq741 K6d1WrLIh4FebzgIlFPUrJEqrXZCffyrxdaIDuCOAxMTQ1lsJ1xcMSDxnBsRXKCFX7KeICQMKINlXqvkkE1e9qpi6+L6Gs+ fOwYC7rKSFJKHULBhuS4v+yy4y9Hlha0CYINMAEMLohevMKESIBODMqzxdO/ZcUbqQIjqrGD2Lu1YBRPWDMMRfGK3thhMQT UUQYcgwcGaqkqYGBBUWXrybzModfvUJQQjdwJGOSNVMJXCBMKIdBCqxfHn5WrrrQUpMRANDBQAAMOBRCXVLJCJWTTHPBXfx [file] qwiPCJQEUTXDFBwZgnlzUAEZNADXGNXWAK6yEGSIpwikN+lFFFABRRRQAGiiigAxRRRQAUUUGgAooooAKKOlBoAKDRijpQA DJKKMLIsddFWVCXPIlklhYgpyJFB9toquPWHPREKTCSDWZJMvFAKYJLILRHRB3mCGWRpAqsSomfdVWAWRNDSOXUdKACMIBC XELGJJGD2sfvUMVLJOJZY9cxkTNSSRTUsxviPhrSPSVZHV3TsHE0/XrL/iWkUkNrXj7Nbg4R9Z38gUMcPlO8GqBulonW2hy HYoDYQSuZyZKmYGQ7KuzluHvllJ5hjVGIwVVYvrbbWVXoossC0CXHyhUxxYHwgg9APhAXK0D/h/N18fxJ93X4mkyk96pUG6 jKskjCGZjKX+aU10Z2YrnLANdaTHjn3L9+1zel/zVbt9ShwBv4bdyzsv+6e5MRwl7kqyjma7vCSVHEH3PvTm711PsHeVf25 jGcASXJr9AwlNPYPL1P4AeM92l87h63eArStIrF+ibLg7EDcuYGlbY6vodYoCtArMCwpEbyrkjNFAChiGlUSyKeN38I0sgk mcVFILS3rlKuPjOUUIUsdYPjpWHLu4sh7D20G4Zl8iiERed0CiqRznKgXAXMT8t5RdnqNWsW836P22DKOpA8v0JLW7yHCp4 VRCnqgTsZbgpyhfDvkkOLGDAG5nFWjE9oMcB9NHMm3YTaBtp50UBd0oGPCZyaDelp8izTBdiA673Q/+gCENhRa8R bZMi4Z5s02D9wGNZa7C53qZyHzPivzlfotFeOtIh3TeN4Z2bb7CEuTzMyrI0S7MApPzWceHvcWIKGMI0C27C84+9iw3h2ZX G2rjubSZC7NNd+yAAvwa7FXfyhLN1ZvaOsha0Mfq68MLBa5KkPkbnxH1iUFuMGpmyhctmm62CQbihFMACNxbnBYJNAcHdqJ dVZhLMqQ5fyxiC6mZgtXzkP1QcgjQnGL1WQU4XbXWFlRRZd/5HCNk6vkE22A/KjQU1ytm0RMDnYv8zYFWZm6sqf5fQoZHLl 9KAPPLLSNWW+eEM6l7EiNkcTpoKHxswBAUznngYE+EMdNvaeHuDaXTErlVu5Gc3z8l31rEpoLJSzP0HYjo7KW+uDXVYx/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 LvvKehsX2ehv0LllwfpWDxWf8utFdosKdLl4zzZTAghp4s88AIgbJ1o2L6tZLV8kwNA4m3pr8sjrUkyiUOXQCTRuhTtGQoY Wy7Hf7MFrFo6x/1pbHn6LsZ0bFnHstzChl7ap/Ayoa4SyGkAYXewH+TxcMIjH4G259YeXrnnTI0SBoX0jx7efzcZBOd9LGb 6szmvtE21cYU9Tfr50/rkZFN2E+8qZ6GC7hQwinw0bwykSeJU1IUY7RMmYq1ytjgzSbH7TV5RNyAh7g6+t6Yqo55V3PyNc9 fQRcdYlZP0iNnWtoj0FznaNVDCk31u9qYMGIyH0Ll9pDfL6O+12UsI0/v2nGZ3nk+9cnVfe22lF/Ki018IHXNFhWpcYdZGN Y9D8kx6eQAvIImLQHCaKcA/Lvlys80gKQ0752XZbBQqlHUDnDDAM3OTxbAeA9ARjMmGTGlQPBBHIUJZP9W8cC528fJ5T3Sc Iq6hLB6x7s+7mpuffTdpVvRXIPPCEWKlhYFuxb1Aq+HtV/hseCNs4k2BMrI4x1zcclTlPTK9XFJSwnC+VRQ9XM31McULAMw C3JwpL30yb92D3sUeY5Rv8/hQCzBv8uaf6sOAPbbQNRIzbUBPdych5i3IoZ8i2IEhd4LvuKvKQHnFZYZsh1KR/LfsKad8HU 96liAGwyt772QK52BanT/SwYQiz/qXn16MKW0MxhpjEGJhcF21ZWkCezj+pTny7+ey3/gh0aLJhHEhdcKx32DvhvIYED3vn s578PpDsp5Ua8v1laz0pICJnrd+MXuYWolEiZX6113RXDtPlywBeOyeQsMLHtggJGYZ5ICnXWIxaKmIppXAw5No4X0rNDYP 0ZGECGZOAYDRCTz8tB9uKDlGMCYULjenfeErxxbIVJGHCCPSQNUHHZfOJOCUITEPEQh1DCCWBXUYTUWQKLUBSQESJvWiHDV ZFBqSJWOwvk9INYOFVTZPVIPHPMHeLdBVswYQICFdYII3CCTOzGOMVXSFcKrvxiRwEgwdqNryhhRVNTEGQFPB3yuGLJGTGV BTRAGDBOUBMY6QDmEKLaMRARWVJCNgbSMuBWTZXMQFgkCnowpXNJAVXZhsljVorVKNDLFXDRXICMRLWQVNGKRKubSlecmAL [file] jT/r7Pki4bBV1Z7ucEupYXb7xuPfcDYDsNI68q3LiLGDR64Ypc2pF3TKJWKMNLHXCDYLPUWAZAMLIAQLAMZYWJFXFHRUFAN FFABRRRQBmat9+J4Yj44waf4+L6Gs/BRWCAMaVlOQKRPT2zyETOvKDM71qSbfnusMXbGmE34wJy9O40eSSCunkxR9StBeN/ wCg7Z/9/lo/4TLTP+g7Z/9Tf0lAPifjlF6LpPfI/pZk1go8/loPjLTP+g5Z/sJz4vRIfcmrG+Ey0z/oO2n/AH+Wg+MtM/6D tn/3+HoQv6D6J/hMtM/6Dln/AN/auIlRAA3HhWBy/h5qWYibnmX+Ex0z/oO2f/t9iL2HlAkL/wCg5Z/9/loA6+iuQPjLTP8 AoO2f/f5aP+Ey0z/oOWn/AH+FeAj1T0K/OZDWMT7SsX8i/f5aP+Ey0z/oO2n/AH+WaFq7B8U/HLILQN1FbP2w/f5aP+Ey0z /oO2f/AH+XcEn2U6K/JHGUBE4EuZ8h/f5aP+Ey0z/oOWf/AH+OfIq2X8J/VXYEVU2NyROp/f5aP+Ey0z/oO2f/AH+WgDr6K 5D/DSWSCZ2VcEJb/f5aP+Ey0z/oOWf/AH+DnOt0S8I/TNXIFR3DnY8n/f5aP+Ey0z/oO2n/AH+SjOc1F8M/WAKGXS7XcB9y /f5aP+Ey0z/oOWf/AH+StUq4T0J/JJUWRN5PfU1l/f5aP+Ey0z/oO2f/AH+PtYv2L2N+MtM/6Dtp/wB/lo/4TLTP+g5af9/ loA6+iuQ/4TLTP+k5lk3Ig5zD+Ey0z/oOWn/z4cXEggwuW+Ey0z/oO2f/AH+Wj/hMtM/6Dtn/AN/loA6+iuQ/4TLTP+g7Z/ 8Af5aP+Ey0z/oO2n/t2jZNecfqA+Ey0z/oOWf/AH+Wj/hMtM/6Dln/AN/loA6+iuQ/4TLTP+g5Z/8Af5aP+Ey0z/tZ5j1Y1 +HwYy8K4M+MtM/6Dln/AN/lo/4TLTP+g7Z/9/loA6+iuQ/4TLTP+g7Z/wDf5aP+Ey0z/oO2f/h3xBTqwikF+Ey0z/oO2f8A 3+Wg+MtM/wCg5Z/9/loA6+iuQ/4TLTP+g7Z/9/lo/wCEy0z/AKDtn/3+RzMo2C9M/hMtM/6Dtn/3+Wj/IYSQVR5GrGSo/f5 aAOvorkP+Ey0z/oO2f/c9oS3q7l/oO2f/AH+WbKb0T9V/IOOZYT7YaR7m/f5aP+Ey0z/oOWf/AH+KaIs8G1Q+MtM/6Dln/w B/lo/4TLTP+g7Z/xRg2qDHlmedA+Ey0z/oO2f/AH+Wj/hMtM/6Dtp/3+CuXw7L4M/hMtM/6Dtn/wB/lo/4TLTP+g7af9/lo A6+iuQ/4TLTP+g7Z/8Af5aP+Ey0z/jEFe9S8+WzWm6I5F/hMtM/6Dtp/wB/lo/4TLTP+g7Z/oUu1pFWmdxkO+Ey0z/oO2f/ AH+Wj/hMtM/6Dtp/3+JaTi1A9J/hMtM/6Dtn/wB/loPjLTP+g7Z/9/loA6+iuQ/4TLTP+g5af9/lo/4TLTP+g7Z/9/loA6+ iuQ/4TLTP+g5Z/wDf5aP+Ey0z/oOWf/b8qQXgzcwB+Ey0z/oO2n/f5aP+Ey0z/oO2f/k0dVJjyrdT+Ey0z/aAZd3O8+Wj/h MtM/6Dtn/3+BhSy6S3R/hMtM/6Dln/AN/lo/4TLTP+g7Z/9/loA6+iuQ/4TLTP+g7Z/wDf5aP+Ey0z/oO2f/w5xVNmdzbR+ Ey0z/yS7t0X2+Wj/hMtM/6Dtn/3+PvVu2V2P+MtM/6Dtp/3+Wj/LBGEHF2UgN6t/t2xBQmrgiM+Ey0z/oO2f/k0qY2PvDrU /wCg5Z/9/loA6+jFch/lsQcz7W2y/wC/e8x2Mkdv/Qcs/wId8xUQN7MzI/CZaZ/0HbP/AL/ZMoMOom1XTal/+/p0UsiCEDy 8Jlpn/QdtP+/t6b2ROOhU/wBB2z/7/RXD34Qpv/fyPvy1V4q/AO/o6s5WRRcC/wBB2z/7/GLM25Tto/icEmm7C82/7/LR/w AJlpn/AEHLP/b8lRKW2DwI/CZaZ/2MpA3G9/LR/wAJlpn/AEHbP/r0zAKU3BaC/CZaZ/4CAM1Z9/LR/wAJlpn/AEHbP/v8t MHJ6FxR/CZaZ/0IzU4T9/LR/wAJlpn/AEHbP/q7wBIQ1BqD/CZaZ/2ToB4X6/LR/wAJlpn/AEHbP/n3wBIZ1ZiT/CZaZ/0H b/LR/wAJlpn/AEHLP/r4yCCV8ZrX/CZaZ/0HbT/v8tH/WQmPth8RBdn/+/i9UanEEDVqqhq/AEHbT/v8tH/CZaZ/0HL P/y3FNPE95Ljh/wAJlpn/AEHbP/m1mQ6MdG/0HLP/AL/MQU45Wul/dkPfo5I12/7/OK7y6Cakp/VflE8Wx9dDHY4IxU/CZa Z/0HLP/v8ALR/abYmk8O2q/wC/x6PiyUHKu2Otqo/Qcs/+/wAtH/CZaZ/0HbP/AL/WSM42Fis/xhWla7N9e/7/WW3z4Zfqm /Qcs/2Jh5oZFE8BxA/CZaZ/0HLP/v8ALR/zdKsu4Ush//60Abmrffi+waDbV11b46QO2rdrACw3UpLK662bRVVYGgWGJC DzNnBfDJPHSy8E5XMCVBSq+QNB9V7zHKUX7A+VGPp+JQAGGq1rgXs2sbLUHFP+n5UY9h+NNPHDr5U1YH+k7ASRXN7C5dKh/ GbykFo2Ivek3MgbvqWFPu+VGMdh+EQGWIo1H7fJhV8mWWGRFEMnrSq0czBBLCO+k9QnpGmzhrVIzv/Oy1xnkyyLFlS0uAvk /DirfFx9Hegr5O5dMRPV6J+ZV8kdZUMTyfNfx/A5cYHALCuYtgoMOnoSIMPQ+h8HU1D1kZBFF2L+VGPp+VFFABjHp+VGPYf fVRGMFvS3jVY0M6UGHMT4A1hWITCerXFKFqfTcl/PvwEQBDC3B2oJnV9GZSJWZyPHwP7MDEQURb+VGPp+VFFABgDsPyoI+n 5UUUAGPp+ZOUdOrgonNYvF8XxyDygtjAFtB8MxuNkkluWRsz/Uur1cmNTTHztQevz7MjmjtOMaP2TJ4w+VFFAB+A/KjHsPy cgzNPCYtrRw7D2pVQKS5P+QC3A6fIZLF3dud/AflRRQAY+n5UY+g7VJPROFg+VGPp+VFFAB+A/Bgh6duYXKHzbYemYnoxjc AXH0/Ufx6X4YWAGVHn+VB+g/PlbtIc3NthY4F7BFUKOHz+WMPPgxDPYZG0g+VGPp+WDETDs2P7XT2w+RBCCGdzCRe4qYZFA Y+e2AdoRalhiAIaP0cP2I+EMPNV30D0uBjV0NWPYUHk7GDbU3mFOQUd8jyG+A/KiigA/BcrB84E8kWRNNOfFud/AflRRQAY +n5UY9h+BYLZYf0R9MffVvdrpVGrl/KjHsPyoooACPp+XH6A7dWQVL1G+EK2Q0aHYLLT9/KjH+cUUUAFGaKKACkNFFAH/9k = Orders Orders: 3. Obesity E66.9 Plan Weight loss through dietary modification and a graded exercise regimen is strongly encouraged. 4. Systolic heart failure I50.20 Plan Continue current medical management with Lasix per cardiology recommendations. The patient's family seem concerned over the patient's renal insufficiency and had questions as to the timing of repeat BMP testing. I indicated to them that I would defer this testing to cardiology. 5. Cough R05 Plan The patient has a subacute cough of 3-4 weeks duration, which is primarily dry in nature. The basilar groundglass changes noted on his CT chest could represent edema or may be a resolving infection. He was already treated previously with doxycycline. I strongly suspect that his cough may be bronchial hyperresponsiveness from a recent viral infection. However, for the sake of completeness, I have ordered a sputum culture and a respiratory viral panel to be completed. I am also going to place the patient on a low- dose inhaled corticosteroid to help alleviate some of his airway bronchial hyperresponsiveness and hopefully lead to some improvement in his cough. Samples of Arnuity were provided to the patient today. Orders Orders: Plan Detail Follow Up 1 Month (CSM) 3 Months (DMB) HPI HPI Comments Details: The patient is a 77-year-old male who presents to the clinic today in referral for evaluation of a pulmonary nodule. The patient was referred to us by Dr. Godoy. The patient is accompanied by multiple family members. The patient has a history of coronary artery disease status post PTCA with drug-eluting stent placement to the RCA in June 2018. He also has a history of atrial fibrillation/flutter, for which she is anticoagulated. Additionally, he has chronic systolic heart failure for which she is prescribed diuretic therapy. Surface echocardiogram dated June 2018 revealed normal LV size and thickness with an ejection fraction of 50%. Right ventricular systolic pressure was unable to be estimated. Pulmonary function studies completed in August 2018 revealed evidence of a moderate restrictive ventilatory defect with preserved diffusing capacity. The patient's ERV was reduced in proportion, likely indicative of a body habitus effect. The patient also had a CT chest without contrast completed on August 12, 2018 which revealed multiple small lymph nodes within the mediastinum along with a calcified right hilar lymph node and a 1.2 x 0.7 cm calcified nodular density in the anterior medial aspect of the right upper lobe. There is also note of basilar predominant groundglass changes, which could represent edema or a resolving infection. The patient reports the presence of an intermittently productive cough of 3-4 weeks duration. He denies a history of asthma. The patient was employed previously working in [email or web address]. He is currently on scheduled Lasix and reports weight loss associated with its use. He states that his appetite has not been as good as previous. He denies the presence of chest tightness or wheezing. The patient is also prescribed amiodarone at the current time. The patient is a lifelong non-smoker and does not currently utilize a wood burner in his home environment. He does have access to an albuterol nebulizer in his home environment but reports no symptom response with improvement in his cough complaints with its use. He denies fevers, chills or night sweats. Intake Vital Signs08/15/18 Height 5 ft 5 in 08/15/18 Weight: 215 lb Intake Visit Reasons: lung nodule Chief Complaint: cough Allergies No Known Allergies Allergy (Verified 07/29/18 12:02) Medications Aspirin [Aspirin, Baby] 81 mg PO DAILY@0800 07/02/18 [History Confirmed 07/29/18] Metformin HCl [Glucophage] 500 mg PO BID 07/02/18 [History Confirmed 07/29/18] Omeprazole [Prilosec] 20 mg PO DAILY 07/02/18 [History Confirmed 07/29/18] Amiodarone HCl [Cordarone] 200 mg PO BID #28 tab 07/06/18 [Rx] albuterol sulfate 2.5 mg/3 mL (0.083 %) solution for nebulization 1.25 mg INHALATION Q4H PRN 07/29/18 [History Confirmed 07/29/18] amiodarone 200 mg tablet 200 mg PO DAILY #30 tab 07/29/18 [Rx Confirmed 07/29/18] atorvastatin 40 mg tablet 40 mg PO QHS #30 tab 07/29/18 [Rx Confirmed 07/29/18] codeine 6.3 mg-guaifenesin 100 mg/5 mL oral liquid 5 ml PO Q8H PRN ml 07/29/18 [History Confirmed 07/29/18] furosemide 40 mg tablet 40 mg PO DAILY #30 tab 07/29/18 [Rx Confirmed 07/29/18] lorazepam 0.5 mg tablet 0.5 mg PO QD-BID PRN 07/29/18 [History Confirmed 07/29/18] metoprolol tartrate 100 mg tablet 100 mg PO BID #60 tab 07/29/18 [Rx Confirmed 07/29/18] ticagrelor 90 mg tablet 90 mg PO BID #60 tab 07/29/18 [Rx Confirmed 07/29/18] warfarin 4 mg tablet 4 mg PO .COMPLEX tab 07/29/18 [History] potassium chloride ER 20 mEq tablet,extended release 20 meq PO BID #60 tab 08/09/18 [Rx Confirmed 08/09/18] PFSH Medical History Lung nodule (Chronic) Restrictive airway disease (Chronic) Essential hypertension (Chronic) HLD (hyperlipidemia) (Chronic) GERD (gastroesophageal reflux disease) (Chronic) Paroxysmal A-fib (Acute) Atrial fibrillation and flutter (Acute) Cardiomyopathy (Acute) CHF (congestive heart failure) (Acute) Hyperglycemia (Chronic) Renal insufficiency (Chronic) FPC (current) use of anticoagulants (Acute) Atherosclerotic heart disease of [place] coronary artery without angina pectoris (Chronic) Encounter for routine circumcision (Acute) Surgical History S/P coronary artery stent placement (Chronic 07/04/18) History of hernia repair (Acute) History of hip replacement (Acute) History of partial knee replacement (Acute) Family History Mother Hypertension Heart disease Social History Smoking Status: Never smoker alcohol intake: never substance use type: does not use Review of Systems Const CONSTITUTIONAL: Negative anorexia, body ache, chills, daytime sleepiness, fever(s), night sweats, oral thrush, stops breathing during sleep, weight loss, sleeping in chair, fatigue, weight loss, weight gain, frequent colds, seasonal allergies, other, headache(s) or orthopnea EETM Ear Nose Throat Mouth: Positive hearing normal; negative hard of hearing, hoarseness, dry mouth in morning, change in vision, itchy eyes, eye pain, swallowing Difficulty, ear pain, nose bleed, headache(s), mouth pain, nasal congestion, nasal discharge, post nasal drip, sinus pain, sinus pressure, sore throat or other Cardio Cardiovascular: Negative chest pain, chest pain at rest, chest pain with activity, irregular heart rhythm, edema, shortness of breath when lying down, palpitations, murmur or other Resp Respiratory: Positive as per HPI and cough cough: Positive productive color: Positive yellow and blood streaked; negative shortness of breath, pain with cough, wheezing, chest congestion, chest tightness, pain on inspiration, inhalers, increase use of rescue inhalers, snoring, apnea or other Gastro Gastrointestional: Negative bloody stools, change in appetite, difficulty swallowing, reflux, hematemesis, melena stool, loose stool, constipation or other Genitourinary: Negative blood in urine, nocturia, pain with urination or other Musc Musculoskeletal: Negative body pain, back pain, neck pain or other Skin/Breast Skin/Breast: Negative dry skin, itching, rash, unusual bruising, breast lump or other Neuro Neurological: Negative restless legs, confusion, weakness or other Psych Psychocological: Negative abnormal sleep pattern, anxiety, thoughts of hurting self/others, hopelessness or other Lymph Lymphatic: Negative easy bleeding, easy bruising, swollen lymph nodes or other Exam Const Constitutional: Positive conversant, cooperative, in no acute respiratory distress, well developed, well nourished, good hygiene and obese Head Head: Positive normocephalic and atraumatic; negative cyanosis of lips/distal nose Eyes Eye: Positive clear conjunctiva; negative nystagmus or scleral abnormality Ears Ear: Positive hearing normal and external ears normal; negative hard of hearing Nose Nose: Positive external nose normal; negative epistaxis Mouth Mouth: Positive oral mucosae normal and posterior oropharynx is adequate; negative no lesions or post nasal drip Mallampati Score: II: Mallampati Score Neck Neck: Positive normal visual inspection and trachea midline; negative lymphadenopathy Chest Wall Chest: Positive symmetric chest movement Normal AP diameter. Resp lung sounds: Positive clear to auscultation, good air exchange, rales (Faint basilar rales ) and normal expiratory time; negative wheezes or rhonchi Cardio Cardiac: Positive regular rate, regular rhythm, S1 normal and S2 normal; negative rub, gallop or murmur GI GI: Positive normal bowel sounds and obese Soft without distention Genitourinary: Positive deferred Musc Musculoskeletal: Positive steady gait Skin Pulmonary Skin Exam: Positive intact; negative lesion, ulcers, dermal atrophy or rash Pulses Pulse: Yes Pedal pulses present: Extremities Extremities: No clubbing, No cyanosis, Yes edema (Trace LE) Neuro Neurologic: Yes conversant, Yes no focal neuro deficits, Yes cooperative Lymph Lymphatic: No lymphadenopathy Psych Appearance: Positive grossly normal Mental Status: Positive mental status grossly normal Mood: Positive congruent mood Affect: Positive normal affect Coding Level of Care Code Off vis,new,level 5 Diagnoses Restrictive airway disease J98.4 Lung nodule R91.1 Obesity E66.9 Systolic heart failure I50.20 Cough R05 Time Spent (min) 55 08/15/18 0846 <Electronically signed by Floyd Cruz DO> Date Floyd Cruz Smithindigoguillermina Signature: Date (if applicable) CC: Kulwant Godoy MD PULMONARY FUNCTION Observed: 08/15/2018 Status: F Source: [place] REPORT COMP 5:57 AM [facility] Pulmonary Services/Neurology [address] [place] [address] MR#: [id number] Acct: [id number] Name: NORRIS STEIN Rep #: [id number] : 1940 77 From: Cheng Mccoy MD Referring Dr: Umm Yan, ASHLEYC Status: REG CLI Ordering Dr: Date: Location: [facility] Sex: M C COMPLETE PULMONARY FUNCTION TEST INTERPRETATION Brief HPI: Patient is a 77 year old male, currently under the care of Umm Yan, who presents to [facility] for complete pulmonary function tests secondary to diagnosis of cough. Respiratory therapist reports good effort and reproducible results. Interpretation: Forced expiration spirometry shows no large airways obstructive ventilatory defect with an FEV1 of 58% predicted. There is no significant bronchodilator response by strict ATS criteria. Spirograms are of good quality and plateau normally. The respiratory flow volume loop shows a normal pattern. Lung volumes by body plethysmography show a decreased total lung capacity at 3.62 L, 69% predicted. All other lung volumes are reduced symmetrically. Diffusion capacity by carbon monoxide is normal at 90% predicted. The airway resistance is elevated. No previous pulmonary function tests were available for review. 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 08/15/18 0557 <Electronically signed by Cheng Mccoy MD> Date Cheng Mccoy MD CC: [employer]-C Umm Yan; Cheng Mccoy MD; Saumya Newton MD Date Dictated: 08/14/18728 Date Transcribed: 08/14/18728 Visual Display Manager: EDITA Signed PROGRESS Observed: 08/13/2018 Status: COMPLETED Source: [place] 9:11 AM [facility] [place] [facility] HNO ID: [id number] Author: Yoli Montes Ma Service: (none) Author Type: (none) Type: Progress Notes Filed: 08/13/2018 3:41 PM Note Text: Patient notified and appointment made for Tracker updated Yoli Montes Ma PROGRESS Observed: 08/13/2018 Status: COMPLETED Source: [place] 8:30 AM [facility] REPOSIT[facility] HNO ID: [id number] Author: Armani Chaudhary Service: (none) Author Type: Physician Type: Progress Notes Filed: 08/13/2018 3:41 PM Note Text: 2 mg on and Sun. PROGRESS Observed: 08/13/2018 Status: COMPLETED Source: [place] 8:12 AM [facility] REPOSITORY HNO ID: [id number] Author: Yoli Montes Ma Service: (none) Author Type: (none) Type: Progress Notes Filed: 08/13/2018 3:41 PM Note Text: Spoke to patient and he verbalized understanding. Patient requested lab draw on Sunday at [facility] since getting labs done there as well. Patient said if previous provider did not agree than requested getting done tomorrow since appointment for rehab. Please advise Yoli Montes Ma PROGRESS Observed: 08/12/2018 Status: COMPLETED Source: [place] 10:04 PM [facility] REPOSITORY HNO ID: [id number] Author: Armani Chaudhary Service: (none) Author Type: Physician Type: Progress Notes Filed: 08/13/2018 3:41 PM Note Text: This note was created using NoteWriter. Subjective Norris Stein is a 77 year old male. Review of Systems Objective There were no vitals taken for this visit. Physical Exam Assessment and Plan Have patient restart coumadin at 2 mg a day on Sunday08/13/2018 and get an INR on 08/15/2018 PROGRESS Observed: 08/12/2018 Status: COMPLETED Source: [place] 3:03 PM [facility] [place] [facility] HNO ID: [id number] Author: Vanessa Mckeon RN Service: (none) Author Type: (none) Type: Progress Notes Filed: 08/12/2018 3:09 PM Note Text: patient had inr completed at [facility] patients inr is 3.0 (patients inr range is 2.0-3.0) patient is currently holding 2mg daily since 08/09/18 patients last dose change unknown at this time due to patient is a new coumadin start (07/16/18) and 2mg was the dose pt was one at [facility] on 07/25/18) patient has had a change in medication as pt finished doxy on Sunday and holding coumadin and no change in diet Advised patient that they would be contacted regarding medication dose and when to follow up after information is reviewed by provider. After provider review please contact the patient with information and schedule follow up appointment with coumadin clinic. ok to leave detailed message if no answer. patient is having lab work for cardio at [facility] on Sunday, patient is requesting that an order for protime be sent to [facility] so he can have everything completed at one place. CHEST WITHOUT Observed: 08/12/2018 Status: F Source: [place] CONTRAST 3:00 PM [facility] Imaging Services [address] [place] [id number] Chest without Contrast MR#: [id number] Acct: [id number] Name: NORRIS STEIN Rep #: [id number] : 1940 M 77 From: Bacilio Mitchell MD PCP: Saumya Newton MD Status: REG CLI Study: Chest without Contrast Date of Exam: 08/12/18 Exam# [id number] Ordering Dr: Adebayo Bueno [employer]ER-C STUDY: CT CHEST WITHOUT CONTRAST REASON FOR EXAM: Male, 77 years old. History of cough and lung nodule. RADIATION DOSAGE (If Supplied By Facility): CTDIvol = ( 20.15 ) mGy, DLP = ( 1399.64 ) mGycm TECHNIQUE: Transaxial imaging was performed without the administration of intravenous contrast material. Multiplanar coronal and sagittal images were reformatted. Individualized dose optimization techniques were used for this CT. COMPARISON: Comparison is made with prior chest radiograph dated August 09, 2018. FINDINGS: Patchy infiltrates at the lung bases worse on the right side. There is no demonstrated pleural abnormality. There are calcifications of the coronary arteries. There are multiple small lymph nodes within the mediastinum, which are normal in size and morphology most compatible with reactive lymph hyperplasia. Calcified right hilar lymph nodes. There is a 1.2 cm x 0.7 cm calcified nodular density in the anterior medial aspect of the right upper lobe. Normal unenhanced pulmonary arteries. There is atherosclerotic calcification of the aortic arch . There are multi-level degenerative changes of the thoracic spine. There is a 2.2 cm x 2 cm calcific nodule in the anterior superior aspect of the spleen most likely representing the partially calcified cyst or old hematoma. CT/Chest without Contrast IMPRESSION: The nodular density corresponds to a 1.2 cm x 0.7 cm calcified nodule in the anteromedial aspect of the right upper lobe. Bibasilar infiltrates worse on the right side. Electronically Signed: Bacilio Mitchell MD at 15:47 EST Tel [phone], Service support , CC: RETA Bueno; Saumya Newton MD Visual Display Manager: Signed PROGRESS Observed: 08/09/2018 Status: COMPLETED Source: [place] 2:49 PM [facility] REPOSITORY HNO ID: [id number] Author: Yoli Montes Ma Service: (none) Author Type: (none) Type: Progress Notes Filed: 08/09/2018 3:10 PM Note Text: Spoke to patient and gave instructions Tracker updated and appointment made Sunday Yoli Montes Ma PROGRESS Observed: 08/09/2018 Status: COMPLETED Source: [place] 11:28 AM [facility] REPOSITORY HNO ID: [id number] Author: Umm Yan Service: (none) Author Type: Nurse Practitioner Type: Progress Notes Filed: 08/09/2018 1:32 PM Note Text: This is a 77 year old male who presents today with: Patient presents with: Medication Follow-up HISTORY OF PRESENT ILLNESS: Norris Stein is a 77 year old male. Patient presents with: Medication Follow-up Pt presents today for follow-up. He has had significant recent events. He apparently was found to have a new onset of a. Flutter at an office visit. EKG showed ST changes. He was transferred to [facility] via ambulance. He had cardiology consult. As you recall he was evaluated in cardiovascular consultation on 07/03/2018 at [facility] for concerns of atrial fibrillation/flutter, findings compatible with a cardiomyopathy, CHF-systolic, hyperlipidemia, hypertension, hyperglycemia, renal insufficiency, and subsequently went on to be diagnosed with underlying CAD requiring RCA PCI. He does participate in cardiac rehab. He has followed up with cardiology. He is on anticoagulants. He reports that he had a chest xray today. He has been having an issue with chronic cough. CXRAY 07/25/18: MPRESSION: Minimal atelectasis or fibrosis at both lung bases. ?Otherwise no acute process. He had a repeat chest xray today at [place], unfortunately results not available. At the office visit on 07/31, he was started on doxycycline for cough. Refers that he has a little bit of the antibiotic left. Refers that he continues to have to sleep sitting up because of the cough. Refers that he mostly is expectorating yellow mucus. Refers that sometimes a small chunk of blood. Refers that he doesn't consistently wear his oxygen at night. Refers that his is taking lasix 80 mg daily per cardiology. He has been urinating more. He continues to have swelling of the lower extremities. He denies SOB/chest pain/palpitations. He denies head congestion, sore throat, PND, etc. He reports the Cheratussin just makes more secretions come out. Finds honey works as well. Has used albuterol, but also finds that doesn't help well. He and his family question if he has COPD. Never tested. Reports it was suggested to him by rehab. PAST MEDICAL HISTORY: PAST MEDICAL HISTORY Diagnosis Date - DM (diabetes mellitus) (HCC) - Essential hypertension, benign - Other and unspecified hyperlipidemia - Other specified family circumstances PAST SURGICAL HISTORY Procedure Laterality Date - COLONOSCOP W/ OR W/O [facility] SPEC 04/08/15 Colonoscopy ALLERGIES Patient has no known allergies. MEDICATIONS Current Outpatient Prescriptions: furosemide (LASIX) 40 mg tablet Take 1 tablet by mouth once daily. LORazepam (ATIVAN) 0.5 mg tab Take 1 tablet by mouth twice daily as needed (For anxiety) for up to 14 days. metoprolol tartrate, short acting, (LOPRESSOR) 100 mg tablet Take 1 tablet by mouth twice daily. doxycycline monohydrate (MONODOX) 100 mg capsule Take 1 capsule by mouth twice daily. COMPOUNDED PRESCRIPTION Home oxygen @ 2 L NC as needed, portable. ICD-10 I50.9, Spiritism- no electric. Does not want to go to generator warfarin (COUMADIN) 2 mg tablet Take 2 tablets by mouth once daily. albuterol (PROVENTIL) 2.5 mg /3 mL (0.083 %) nebulizer solution Use 3 mL via nebulizer every 4 hours as needed for Wheezing/Shortness of Breath. Use over 5-15minutes. codeine-guaiFENesin (ROBITUSSIN AC) 10-100 mg/5 mL syrup Take 5 mL by mouth three times daily as needed for Cough for up to 30 days. amiodarone (PACERONE) 200 mg tablet Take 1 tablet by mouth once daily. atorvastatin (LIPITOR) 40 mg tablet Take 1 tablet by mouth daily at bedtime. ticagrelor (BRILINTA) 90 mg tablet Take 1 tablet by mouth twice daily. omeprazole (PRILOSEC) 20 mg capsule Take 1 capsule by mouth once daily. metFORMIN (GLUCOPHAGE) 500 mg tablet Take 1 tablet by mouth twice daily with meals. . ASPIRIN 81 MG ORAL TAB Take one(1) tablet daily. No current facility-administered medications for this visit. No family history on file. Social History Marital status: Spouse name: Years of education: Number of children: Social History Main Topics Smoking status: Never Smoker Smokeless tobacco: Never Used Alcohol use: Yes Comment: occasional sip of wine Drug use: No EXAM: BP 136/68 (BP Site: Left Arm, BP Position: Sitting, BP Cuff Size: Regular Adult) Pulse (!) 58 Temp 36.3 ?C (97.3 ?F) (Left Tympanic) Wt 98.9 kg (218 lb) SpO2 95% BMI 35.73 kg/m? PHYSICAL EXAM: General Appearance: Well appearing, alert, in no acute distress, well-hydrated, well nourished.. Skin: Skin color, texture, turgor normal, no suspicious rashes or lesions. Head: Normocephalic, no masses, lesions, tenderness or abnormalities. Eyes: Anicteric sclera. Pupils are equally round and reactive to light. Extraocular movements are intact. Ears: External ears normal, canals clear, Normal TMs bilaterally. Oropharynx: Lips, mucosa, and tongue normal, teeth and gums normal, oropharynx normal. Neck: Supple, no adenopathy; thyroid symmetric, normal size, no bruits. Lungs: lungs clear to auscultation. Course bilateral bases. Heart: RRR without murmur, gallop, or rubs. No ectopy. Extremities: No deformities, skin discoloration, clubbing or cyanosis. Good capillary refill. +2 pitting edema BLE. Neurologic: Gait normal. ASSESSMENT/PLAN: 1. Cough - ICD9: 786.2, ICD10: R05 (primary diagnosis) Ongoing cough. Xray with possible fibrous changes in the bases. Finish antibiotic - -call if worsening symptoms after completion. Will get PFTs. Referral to pulmonology. Also encouraged to start loratadine daily. - SPIROMETRY WITH DILATOR IF OBSTRUCTED - CONSULT TO PULM/CRITICAL CARE 2. Fibrosis of lung (HCC) - ICD9: 515, ICD10: J84.10 Pulmonology referral. Get PFTs. 3. Cardiomyopathy, unspecified type (HCC) - ICD9: 425.4, ICD10: I42.9 Continue to follow per cardiology. 4. Chronic systolic heart failure (HCC) - ICD9: 428.22, ICD10: I50.22 Continue to follow per cardiology. 5. CAD in [place] artery - ICD9: 414.01, ICD10: I25.10 Continue to follow per cardiology. Discussed treatment plan and patient voices understanding. Patient's questions answered appropriately. Medications and potential side effects were discussed and patient voices understanding. Return to the office as scheduled or as needed for worsening/no improvement. Umm Yan APRN.BRAZING MACHINE FEEDER CNOV Observed: 08/09/2018 Status: COMPLETED Source: [place] 11:20 AM [facility] REPOSITORY [facility] NORRIS STEIN ([id number]) 1940 M Date Time Provider Department 08/09/18 11:20 AM UMM YAN CNP During your visit today, we recorded the following information about you: Temperature Pulse Blood pressure Weight 97.3 degrees 58/minute 136/68 98.9 kg Umm Yan APRN.CNP 08/09/2018 1:32 PM Signed This is a 77 year old male who presents today with: Patient presents with: Medication Follow-up HISTORY OF PRESENT ILLNESS: Norris Stein is a 77 year old male. Patient presents with: Medication Follow-up Pt presents today for follow-up. He has had significant recent events. He apparently was found to have a new onset of a. Flutter at an office visit. EKG showed ST changes. He was transferred to [facility] via ambulance. He had cardiology consult. As you recall he was evaluated in cardiovascular consultation on 07/03/2018 at [facility] for concerns of atrial fibrillation/flutter, findings compatible with a cardiomyopathy, CHF-systolic, hyperlipidemia, hypertension, hyperglycemia, renal insufficiency, and subsequently went on to be diagnosed with underlying CAD requiring RCA PCI. He does participate in cardiac rehab. He has followed up with cardiology. He is on anticoagulants. He reports that he had a chest xray today. He has been having an issue with chronic cough. CXRAY 07/25/18: MPRESSION: Minimal atelectasis or fibrosis at both lung bases. ?Otherwise no acute process. He had a repeat chest xray today at [place], unfortunately results not available. At the office visit on 07/31, he was started on doxycycline for cough. Refers that he has a little bit of the antibiotic left. Refers that he continues to have to sleep sitting up because of the cough. Refers that he mostly is expectorating yellow mucus. Refers that sometimes a small chunk of blood. Refers that he doesn't consistently wear his oxygen at night. Refers that his is taking lasix 80 mg daily per cardiology. He has been urinating more. He continues to have swelling of the lower extremities. He denies SOB/chest pain/palpitations. He denies head congestion, sore throat, PND, etc. He reports the Cheratussin just makes more secretions come out. Finds honey works as well. Has used albuterol, but also finds that doesn't help well. He and his family question if he has COPD. Never tested. Reports it was suggested to him by rehab. PAST MEDICAL HISTORY: PAST MEDICAL HISTORY Diagnosis Date - DM (diabetes mellitus) (HCC) - Essential hypertension, benign - Other and unspecified hyperlipidemia - Other specified family circumstances PAST SURGICAL HISTORY Procedure Laterality Date - COLONOSCOP W/ OR W/O [facility] SPEC 04/08/15 Colonoscopy ALLERGIES Patient has no known allergies. MEDICATIONS Current Outpatient Prescriptions: furosemide (LASIX) 40 mg tablet Take 1 tablet by mouth once daily. LORazepam (ATIVAN) 0.5 mg tab Take 1 tablet by mouth twice daily as needed (For anxiety) for up to 14 days. metoprolol tartrate, short acting, (LOPRESSOR) 100 mg tablet Take 1 tablet by mouth twice daily. doxycycline monohydrate (MONODOX) 100 mg capsule Take 1 capsule by mouth twice daily. COMPOUNDED PRESCRIPTION Home oxygen @ 2 L NC as needed, portable. ICD-10 I50.9, Spiritism- no electric. Does not want to go to generator warfarin (COUMADIN) 2 mg tablet Take 2 tablets by mouth once daily. albuterol (PROVENTIL) 2.5 mg /3 mL (0.083 %) nebulizer solution Use 3 mL via nebulizer every 4 hours as needed for Wheezing/Shortness of Breath. Use over 5-15minutes. codeine-guaiFENesin (ROBITUSSIN AC) 10-100 mg/5 mL syrup Take 5 mL by mouth three times daily as needed for Cough for up to 30 days. amiodarone (PACERONE) 200 mg tablet Take 1 tablet by mouth once daily. atorvastatin (LIPITOR) 40 mg tablet Take 1 tablet by mouth daily at bedtime. ticagrelor (BRILINTA) 90 mg tablet Take 1 tablet by mouth twice daily. omeprazole (PRILOSEC) 20 mg capsule Take 1 capsule by mouth once daily. metFORMIN (GLUCOPHAGE) 500 mg tablet Take 1 tablet by mouth twice daily with meals. . ASPIRIN 81 MG ORAL TAB Take one(1) tablet daily. No current facility-administered medications for this visit. No family history on file. Social History Marital status: Spouse name: Years of education: Number of children: Social History Main Topics Smoking status: Never Smoker Smokeless tobacco: Never Used Alcohol use: Yes Comment: occasional sip of wine Drug use: No EXAM: BP 136/68 (BP Site: Left Arm, BP Position: Sitting, BP Cuff Size: Regular Adult) Pulse (!) 58 Temp 36.3 ?C (97.3 ?F) (Left Tympanic) Wt 98.9 kg (218 lb) SpO2 95% BMI 35.73 kg/m? PHYSICAL EXAM: General Appearance: Well appearing, alert, in no acute distress, well-hydrated, well nourished.. Skin: Skin color, texture, turgor normal, no suspicious rashes or lesions. Head: Normocephalic, no masses, lesions, tenderness or abnormalities. Eyes: Anicteric sclera. Pupils are equally round and reactive to light. Extraocular movements are intact. Ears: External ears normal, canals clear, Normal TMs bilaterally. Oropharynx: Lips, mucosa, and tongue normal, teeth and gums normal, oropharynx normal. Neck: Supple, no adenopathy; thyroid symmetric, normal size, no bruits. Lungs: lungs clear to auscultation. Course bilateral bases. Heart: RRR without murmur, gallop, or rubs. No ectopy. Extremities: No deformities, skin discoloration, clubbing or cyanosis. Good capillary refill. +2 pitting edema BLE. Neurologic: Gait normal. ASSESSMENT/PLAN: 1. Cough - ICD9: 786.2, ICD10: R05 (primary diagnosis) Ongoing cough. Xray with possible fibrous changes in the bases. Finish antibiotic - -call if worsening symptoms after completion. Will get PFTs. Referral to pulmonology. Also encouraged to start loratadine daily. - SPIROMETRY WITH DILATOR IF OBSTRUCTED - CONSULT TO PULM/CRITICAL CARE 2. Fibrosis of lung (HCC) - ICD9: 515, ICD10: J84.10 Pulmonology referral. Get PFTs. 3. Cardiomyopathy, unspecified type (HCC) - ICD9: 425.4, ICD10: I42.9 Continue to follow per cardiology. 4. Chronic systolic heart failure (HCC) - ICD9: 428.22, ICD10: I50.22 Continue to follow per cardiology. 5. CAD in [place] artery - ICD9: 414.01, ICD10: I25.10 Continue to follow per cardiology. Discussed treatment plan and patient voices understanding. Patient's questions answered appropriately. Medications and potential side effects were discussed and patient voices understanding. Return to the office as scheduled or as needed for worsening/no improvement. IVET Sevilla APRN.CNP 08/09/2018 12:24 PM Signed 1. Start loratadine daily. 2. Schedule the PFTs. 3. Schedule with pulmonology Referring Provider: SAUMYA NEWTON [[id number]] Allergies As of Date: 08/09/2018 (No Known Allergies) Date Reviewed: 08/09/2018 Reviewed by: Cielo Finn Sifting Operator - Fully Assessed Reason for Visit: Medication Follow-up [270] Primary Visit Diagnosis:Cough [R05] Other Visit Diagnoses:Fibrosis of lung (HCC) [J84.10] Cardiomyopathy, unspecified type (HCC) [I42.9] Chronic systolic heart failure (HCC) [I50.22] CAD in [place] artery [I25.10] Order(s):SPIROMETRY WITH DILATOR IF OBSTRUCTED [5070122] Order #: [id number] FUTURE CONSULT TO PULM/CRITICAL CARE [19991013] Order #: [id number]: 1 Prescriptions as of 08/09/2018 Sig: FUROSEMIDE 40 MG TABLET Take 1 tablet by mouth once d* LORAZEPAM 0.5 MG TABLET Take 1 tablet by mouth twice * METOPROLOL TARTRATE 100 MG TA* Take 1 tablet by mouth twice * DOXYCYCLINE MONOHYDRATE 100 M* Take 1 capsule by mouth twice* COMPOUNDED PRESCRIPTION Home oxygen @ 2 L NC as neede* WARFARIN 2 MG TABLET Take 2 tablets by mouth once * ALBUTEROL SULFATE 2.5 MG/3 ML* Use 3 mL via nebulizer every * CODEINE 10 MG-GUAIFENESIN 100* Take 5 mL by mouth three time* AMIODARONE 200 MG TABLET Take 1 tablet by mouth once d* ATORVASTATIN 40 MG TABLET Take 1 tablet by mouth daily * TICAGRELOR 90 MG TABLET Take 1 tablet by mouth twice * OMEPRAZOLE 20 MG CAPSULE,AKIRA* Take 1 capsule by mouth once * METFORMIN 500 MG TABLET Take 1 tablet by mouth twice * * ASPIRIN 81 MG TABLET Take one(1) tablet daily. Problem List As Of Date 08/09/2018 Noted Resolved OBESITY NOS [E66.9] INVALID FOR* BENIGN HYPERTENSION [I10] INVALID FOR* Hyperlipidemia [E78.5] INVALID FOR* IMPOTENCE, ORGANIC ORIGN [N52.9] INVALID FOR* IMPAIRED FASTING GLUCOSE [R73.01] INVALID FOR* Bullous pemphigoid [L12.0] INVALID FOR* Type 2 diabetes mellitus without complication, *INVALID FOR* Chronic atrial fibrillation (HCC) [I48.2] INVALID FOR* Chronic systolic heart failure (HCC) [I50.22] INVALID FOR* Cardiomyopathy (HCC) [I42.9] INVALID FOR* Fibrosis of lung (HCC) [J84.10] INVALID FOR* Other instructions from your clinician: 1. Start loratadine daily. 2. Schedule the PFTs. 3. Schedule with pulmonology Encounter Status:Closed by UMM YAN CNP on 08/09/18 CHEST PA AND LATERAL Observed: 08/09/2018 Status: F Source: [place] 9:43 AM [facility] Imaging Services [address] [place] [address] Chest PA and Lateral MR#: [id number] Acct: [id number] Name: NORRIS STEIN Rep #: [id number] : 1940 M 77 From: Ken Donato MD PCP: Saumya Newton MD Status: REG RCR Study: Chest PA and Lateral Date of Exam: 08/09/18 Exam# [id number] Ordering Dr: Kulwant Godoy MD STUDY: X-RAY CHEST REASON FOR EXAM: Male, 77 years old. Shortness of breath, stent placement June 2018 TECHNIQUE: PA and lateral views of the chest. COMPARISON: 07/04/2018 FINDINGS: Improvement in aeration of the lungs since the prior study clearing of vascular congestion and bibasilar edema. There is a 9 mm nodule in the retrosternal clear space seen only on the lateral view. There is no demonstrated pleural abnormality. Normal size heart. Normal mediastinum and rishabh. Normal visualized pulmonary arteries. There is atherosclerotic calcification of the aortic arch with tortuosity. There are diffuse degenerative changes of the visualized thoracic spine. Normal visualized ribs, clavicles, and shoulders. There is no demonstrated abnormality of the visualized soft tissue structures of the upper abdomen. RAD/Chest PA and Lateral IMPRESSION: 1. Favorable change. Resolution of vascular congestion/basilar edema. 2. 9 mm retrosternal nodule. No comparison lateral view. Recommend either follow-up chest x-ray in 6 months or additional evaluation with chest CT depending on risk factors for malignancy. 3. No airspace consolidation or sizable effusion. Electronically Signed: Ken Donato MD at 7:23 EST , Service support , CC: Saumya Newton MD; Kulwant Godoy MD Visual Display Manager: Signed PROGRESS Observed: 08/09/2018 Status: COMPLETED Source: [place] 9:10 AM [facility] REPOSITORY HNO ID: [id number] Author: Saumya Newton Service: (none) Author Type: Physician Type: Progress Notes Filed: 08/09/2018 3:10 PM Note Text: Hold coumadin for now; recheck INR on Sunday Saumya Newton MD PROGRESS Observed: 08/09/2018 Status: COMPLETED Source: [place] 8:35 AM [facility] REPOSITORY HNO ID: [id number] Author: Vanessa Mckeon RN Service: (none) Author Type: (none) Type: Progress Notes Filed: 08/09/2018 8:37 AM Note Text: patient had inr completed at [facility] patients inr is 5.3 (patients inr range is 2.0-3.0) patient is currently taking 2mg daily patients last dose change unknown as this is the dose the pt was on when starting with the CC on 07/25/18 patient has had a change in medication as pt is taking doxy, and no missed doses and no change in diet Advised patient that they would be contacted regarding medication dose and when to follow up after information is reviewed by provider. After provider review please contact the patient with information and schedule follow up appointment with coumadin clinic. BASIC METABOLIC Collected: 08/09/2018 Status: F Source: [place] PROFILE (BMP) 8:23 AM [facility] TYPE CODE TESTS RESULT OUT OF RANGE REFERENCE UNITS LAB L501.0100 74-106 mg/dL High GLU 118 Result Comment: Fasting Glucose result from 100 to 125 mg/dL suggests IMPAIRED HOMEOSTASIS per A.D.A. criteria. Please note revised GLUCOSE reference range effective 2017. LAB L501.1000 7-18 mg/dL High BUN 36 LAB L501.1100 0.70-1.30 mg/dL High CREAT,SERUM 1.87 Result Comment: The validity of the calculated GFR AND GFRAA in patients over 70 years has not been determined. Clinical correlation is essential. LAB L501.1110 >60 mL/min Low EST GFR 38 Result Comment: Non- GFR Calc LAB L501.1115 >60 mL/min Low EST GFR - AA 45 Result Comment: GFR Calc LAB L501.1300 10-20 RATIO Normal BUN/CRE 19.3 LAB L501.2200 8.5-10.1 mg/dL CA Normal 9.2 LAB L501.5300 136-145 mmol/L NA Normal 140 LAB L501.5600 3.5-5.1 mmol/L Low K 3.4 LAB L501.5900 98-107 mmol/L Low CL 97 LAB L501.6100 21.0-32.0 mmol/L High CO2 34.0 LAB L501.6200 5-15 Normal GAP 9 Performed By: #### L500.2500 #### [facility] [address] [facility] [place], [address] PROGRESS Observed: 07/31/2018 Status: COMPLETED Source: [place] 9:03 AM [facility] REPOSITORY HNO ID: [id number] Author: Saumya Newton Service: (none) Author Type: Physician Type: Progress Notes Filed: 08/01/2018 2:33 PM Note Text: Chief Complaint Patient presents with: F/U 6 months HPI Norris Stein is a 77 year old male who presents here today for 6 month follow up. No bowel, Gi, or urinary concerns. HTN: is checking BP at home daily, readings range 150-130/60-40. Denies any chest pains, dizziness. He is having SOB, worse with exertion. Cough: still continues, is taking Robitussin cough syrup. Using oxygen at night while sleeping. Has been sleeping in his recliner due to the cough. He has been having SOB. Has not been using the nebulizer. Cough productive of yellow sputum. DM: not checking sugars at home. Is taking Metformin 500 mg BID. No numbness/tingling/burning in feet. Lipid: is taking Lipitor 40 mg daily. Edema: in both feet, states he is not able to elevate the legs at night, states it makes him cough more. Lasix was increased to 40 mg daily. A-fib: follows with [facility], Dr. Godoy. INR is managed by PCP, goes to coumadin clinic. Is taking Coumadin daily. Past medical history, appointments, medications, allergies reviewed. Previous Medical History PAST MEDICAL HISTORY Diagnosis Date - DM (diabetes mellitus) (HCC) - Essential hypertension, benign - Other and unspecified hyperlipidemia - Other specified family circumstances Previous Surgical History PAST SURGICAL HISTORY Procedure Laterality Date - COLONOSCOP W/ OR W/O [facility] SPEC 04/08/15 Colonoscopy Family History No family history on file. Patient Allergies ALLERGIES No Known Allergies Current Medications Current Outpatient Prescriptions on File Prior to Visit: albuterol (PROVENTIL) 2.5 mg /3 mL (0.083 %) nebulizer solution Use 3 mL via nebulizer every 4 hours as needed for Wheezing/Shortness of Breath. Use over 5-15minutes. amiodarone (PACERONE) 200 mg tablet Take 1 tablet by mouth once daily. ASPIRIN 81 MG ORAL TAB Take one(1) tablet daily. atorvastatin (LIPITOR) 40 mg tablet Take 1 tablet by mouth daily at bedtime. codeine-guaiFENesin (ROBITUSSIN AC) 10-100 mg/5 mL syrup Take 5 mL by mouth three times daily as needed for Cough for up to 30 days. COMPOUNDED PRESCRIPTION Home oxygen @ 2 L NC as needed, portable. ICD-10 I50.9, Spiritism- no electric. Does not want to go to generator metFORMIN (GLUCOPHAGE) 500 mg tablet Take 1 tablet by mouth twice daily with meals. . omeprazole (PRILOSEC) 20 mg capsule Take 1 capsule by mouth once daily. ticagrelor (BRILINTA) 90 mg tablet Take 1 tablet by mouth twice daily. warfarin (COUMADIN) 2 mg tablet Take 2 tablets by mouth once daily. hydroCHLOROthiazide (HYDRODIURIL, ESIDRIX) 25 mg tablet Take 1 tablet by mouth once daily. (Patient not taking: Reported on 07/25/2018 ) [DISCONTINUED] furosemide (LASIX) 20 mg tablet Take 1 tablet by mouth once daily. [DISCONTINUED] metoprolol tartrate, short acting, (LOPRESSOR) 25 mg tablet Take 1 tablet by mouth twice daily. No current facility-administered medications on file prior to visit. Social History Social History Marital status: Spouse name: Years of education: Number of children: Social History Main Topics Smoking status: Never Smoker Smokeless tobacco: Never Used Alcohol use: Yes Comment: occasional sip of wine Drug use: No EXAM: BP 130/78 Pulse 64 Resp 20 Wt 101.3 kg (223 lb 6.4 oz) BMI 36.61 kg/m? General Appearance: NAD, frequent harsh productive cough, alert and oriented. Lungs: lungs clear to auscultation. No wheezing, rhonchi, rales. Heart: RRR without murmur, gallop, or rubs. No ectopy. Ext: mild edema Health Maintenance List DTAP,TDAP,TD(2 - Td) due on 06/25/2017 URINE ALBUMIN:CREATININE RATIO due on 08/07/2018 DIABETIC FOOT EXAM due on 08/07/2018 DILATED RETINAL EXAM due on 08/29/2018 STATIN MED ADHERENCE due on 08/06/2018 DIABETES MED ADHERENCE due on 08/06/2018 HBA1C due on 01/20/2019 LDL CHOLESTEROL due on 02/05/2019 ANNUAL PCP TEAM CHRONIC DISEASE VISIT due on 07/16/2019 BP CONTROLLED (<130/80) due on 07/25/2019 COLORECTAL CANCER SCREENING,SEE MODIFIER due on 04/08/2025 ADULT PREVNAR-13 Completed INFLUENZA Completed PNEUMOVAX AGE 65 AND OVER WITH 5YR LOOKBACK Completed Data reviewed Anticoagulation Visit on 07/25/2018 Component Date Value - INR (POCT) 07/25/2018 2.2* - Internal Quality Check 07/25/2018 Acceptable Appointment on 07/22/2018 Component Date Value - PT Sec 07/22/2018 Test sent to [facility]. - PT INR 07/22/2018 Test sent to [facility]. - Protein, Total 07/22/2018 6.8 - Albumin 07/22/2018 3.8* - Calcium 07/22/2018 8.8 - Bilirubin, Total 07/22/2018 0.6 - Alkaline Phosphatase 07/22/2018 62 - AST 07/22/2018 25 - Glucose 07/22/2018 114* - BUN 07/22/2018 29* - Creatinine 07/22/2018 1.81* - Sodium 07/22/2018 137 - Potassium 07/22/2018 4.5 - Chloride 07/22/2018 99 - CO2 07/22/2018 26 - Anion Gap 07/22/2018 12 - ALT 07/22/2018 24 - eGFR- 07/22/2018 44 - eGFR-All Other Races 07/22/2018 37 - Hemoglobin A1C 07/22/2018 6.7* - Estimated Average Glucose 07/22/2018 146 Office Visit on 07/16/2018 Component Date Value - GLUCOSE UA (POCT) 07/16/2018 Negative - BILIRUBIN UA (POCT) 07/16/2018 Large* - KETONE UA (POCT) 07/16/2018 15* - SPECIFIC GRAVITY UA (POC* 07/16/2018 1.015 - HEMOGLOBIN/BLOOD UA (PO* 07/16/2018 Large* - PH UA (POCT) 07/16/2018 5.5 - PROTEIN UA (POCT) 07/16/2018 >=300* - UROBILINOGEN UA (POCT) 07/16/2018 4.0* - NITRITE UA (POCT) 07/16/2018 Negative - LEUKOCYTES UA (POCT) 07/16/2018 Large* - COLOR UA (POCT) 07/16/2018 Other - CLARITY UA (POCT) 07/16/2018 Other ASSESSMENT/PLAN: 1. Cough - ICD9: 786.2, ICD10: R05 (primary diagnosis) Will place on doxycycline 2. Anxiety - ICD9: 300.00, ICD10: F41.9 - LORAZEPAM 0.5 MG TABLET 3. Essential hypertension, benign - ICD9: 401.1, ICD10: I10 - good control - Continue current medication(s) - Goal of BP <140/90 4. Type 2 diabetes mellitus without complication, without long-term current use of insulin (HCC) - ICD9: 250.00, ICD10: E11.9 Controlled. - Continue current medications 5. Chronic atrial fibrillation (HCC) - ICD9: 427.31, ICD10: I48.2 Continue current medications. Follow with Cardiology Follow up in 1 month Saumya Newton MD CNOV Observed: 07/31/2018 Status: COMPLETED Source: [place] 9:00 AM [facility] REPOSITORY Office Visit (FAMPWS) NORRIS STEIN ([id number]) 1940 M Date Time Provider Department 07/31/18 9:00 AM SAUMYA NEWTON FAMPWS During your visit today, we recorded the following information about you: Pulse Respiration Blood pressure Weight 64/minute 20/minute 130/78 101.3 kg Saumya Newton MD 08/01/2018 2:33 PM Signed Chief Complaint Patient presents with: F/U 6 months HPI Norris Stein is a 77 year old male who presents here today for 6 month follow up. No bowel, Gi, or urinary concerns. HTN: is checking BP at home daily, readings range 150-130/60-40. Denies any chest pains, dizziness. He is having SOB, worse with exertion. Cough: still continues, is taking Robitussin cough syrup. Using oxygen at night while sleeping. Has been sleeping in his recliner due to the cough. He has been having SOB. Has not been using the nebulizer. Cough productive of yellow sputum. DM: not checking sugars at home. Is taking Metformin 500 mg BID. No numbness/tingling/burning in feet. Lipid: is taking Lipitor 40 mg daily. Edema: in both feet, states he is not able to elevate the legs at night, states it makes him cough more. Lasix was increased to 40 mg daily. A-fib: follows with [facility], Dr. Godoy. INR is managed by PCP, goes to coumadin clinic. Is taking Coumadin daily. Past medical history, appointments, medications, allergies reviewed. Previous Medical History PAST MEDICAL HISTORY Diagnosis Date - DM (diabetes mellitus) (HCC) - Essential hypertension, benign - Other and unspecified hyperlipidemia - Other specified family circumstances Previous Surgical History PAST SURGICAL HISTORY Procedure Laterality Date - COLONOSCOP W/ OR W/O [facility] SPEC 04/08/15 Colonoscopy Family History No family history on file. Patient Allergies ALLERGIES No Known Allergies Current Medications Current Outpatient Prescriptions on File Prior to Visit: albuterol (PROVENTIL) 2.5 mg /3 mL (0.083 %) nebulizer solution Use 3 mL via nebulizer every 4 hours as needed for Wheezing/Shortness of Breath. Use over 5-15minutes. amiodarone (PACERONE) 200 mg tablet Take 1 tablet by mouth once daily. ASPIRIN 81 MG ORAL TAB Take one(1) tablet daily. atorvastatin (LIPITOR) 40 mg tablet Take 1 tablet by mouth daily at bedtime. codeine-guaiFENesin (ROBITUSSIN AC) 10-100 mg/5 mL syrup Take 5 mL by mouth three times daily as needed for Cough for up to 30 days. COMPOUNDED PRESCRIPTION Home oxygen @ 2 L NC as needed, portable. ICD-10 I50.9, Spiritism- no electric. Does not want to go to generator metFORMIN (GLUCOPHAGE) 500 mg tablet Take 1 tablet by mouth twice daily with meals. . omeprazole (PRILOSEC) 20 mg capsule Take 1 capsule by mouth once daily. ticagrelor (BRILINTA) 90 mg tablet Take 1 tablet by mouth twice daily. warfarin (COUMADIN) 2 mg tablet Take 2 tablets by mouth once daily. hydroCHLOROthiazide (HYDRODIURIL, ESIDRIX) 25 mg tablet Take 1 tablet by mouth once daily. (Patient not taking: Reported on 07/25/2018 ) [DISCONTINUED] furosemide (LASIX) 20 mg tablet Take 1 tablet by mouth once daily. [DISCONTINUED] metoprolol tartrate, short acting, (LOPRESSOR) 25 mg tablet Take 1 tablet by mouth twice daily. No current facility-administered medications on file prior to visit. Social History Social History Marital status: Spouse name: Years of education: Number of children: Social History Main Topics Smoking status: Never Smoker Smokeless tobacco: Never Used Alcohol use: Yes Comment: occasional sip of wine Drug use: No EXAM: BP 130/78 Pulse 64 Resp 20 Wt 101.3 kg (223 lb 6.4 oz) BMI 36.61 kg/m? General Appearance: NAD, frequent harsh productive cough, alert and oriented. Lungs: lungs clear to auscultation. No wheezing, rhonchi, rales. Heart: RRR without murmur, gallop, or rubs. No ectopy. Ext: mild edema Health Maintenance List DTAP,TDAP,TD(2 - Td) due on 06/25/2017 URINE ALBUMIN:CREATININE RATIO due on 08/07/2018 DIABETIC FOOT EXAM due on 08/07/2018 DILATED RETINAL EXAM due on 08/29/2018 STATIN MED ADHERENCE due on 08/06/2018 DIABETES MED ADHERENCE due on 08/06/2018 HBA1C due on 01/20/2019 LDL CHOLESTEROL due on 02/05/2019 ANNUAL PCP TEAM CHRONIC DISEASE VISIT due on 07/16/2019 BP CONTROLLED (<130/80) due on 07/25/2019 COLORECTAL CANCER SCREENING,SEE MODIFIER due on 04/08/2025 ADULT PREVNAR-13 Completed INFLUENZA Completed PNEUMOVAX AGE 65 AND OVER WITH 5YR LOOKBACK Completed Data reviewed Anticoagulation Visit on 07/25/2018 Component Date Value - INR (POCT) 07/25/2018 2.2* - Internal Quality Check 07/25/2018 Acceptable Appointment on 07/22/2018 Component Date Value - PT Sec 07/22/2018 Test sent to [facility]. - PT INR 07/22/2018 Test sent to [facility]. - Protein, Total 07/22/2018 6.8 - Albumin 07/22/2018 3.8* - Calcium 07/22/2018 8.8 - Bilirubin, Total 07/22/2018 0.6 - Alkaline Phosphatase 07/22/2018 62 - AST 07/22/2018 25 - Glucose 07/22/2018 114* - BUN 07/22/2018 29* - Creatinine 07/22/2018 1.81* - Sodium 07/22/2018 137 - Potassium 07/22/2018 4.5 - Chloride 07/22/2018 99 - CO2 07/22/2018 26 - Anion Gap 07/22/2018 12 - ALT 07/22/2018 24 - eGFR- 07/22/2018 44 - eGFR-All Other Races 07/22/2018 37 - Hemoglobin A1C 07/22/2018 6.7* - Estimated Average Glucose 07/22/2018 146 Office Visit on 07/16/2018 Component Date Value - GLUCOSE UA (POCT) 07/16/2018 Negative - BILIRUBIN UA (POCT) 07/16/2018 Large* - KETONE UA (POCT) 07/16/2018 15* - SPECIFIC GRAVITY UA (POC* 07/16/2018 1.015 - HEMOGLOBIN/BLOOD UA (PO* 07/16/2018 Large* - PH UA (POCT) 07/16/2018 5.5 - PROTEIN UA (POCT) 07/16/2018 >=300* - UROBILINOGEN UA (POCT) 07/16/2018 4.0* - NITRITE UA (POCT) 07/16/2018 Negative - LEUKOCYTES UA (POCT) 07/16/2018 Large* - COLOR UA (POCT) 07/16/2018 Other - CLARITY UA (POCT) 07/16/2018 Other ASSESSMENT/PLAN: 1. Cough - ICD9: 786.2, ICD10: R05 (primary diagnosis) Will place on doxycycline 2. Anxiety - ICD9: 300.00, ICD10: F41.9 - LORAZEPAM 0.5 MG TABLET 3. Essential hypertension, benign - ICD9: 401.1, ICD10: I10 - good control - Continue current medication(s) - Goal of BP <140/90 4. Type 2 diabetes mellitus without complication, without long-term current use of insulin (HCC) - ICD9: 250.00, ICD10: E11.9 Controlled. - Continue current medications 5. Chronic atrial fibrillation (HCC) - ICD9: 427.31, ICD10: I48.2 Continue current medications. Follow with Cardiology Follow up in 1 month Saumya Newton MD Referring Provider: SELF [[id number]] Allergies As of Date: 07/31/2018 (No Known Allergies) Date Reviewed: 07/31/2018 Reviewed by: Martha Stewart Ma - Fully Assessed Reason for Visit: F/U 6 months [1177] Primary Visit Diagnosis:Cough [R05] Other Visit Diagnoses:Anxiety [F41.9] Essential hypertension, benign [I10] Type 2 diabetes mellitus without complication, without long-term current use of insulin (HCC) [E11.9] Chronic atrial fibrillation (HCC) [I48.2] Order(s):HGB A1C [ZLAOI0I] Order #: [id number] PROTHROMBIN TIME/PT [SQPT] Order #: [id number] furosemide (LASIX) 40 mg tabletTake 1 tablet by mouth once daily.Disp: Rfl: LORazepam (ATIVAN) 0.5 mg tabTake 1 tablet by mouth twice daily as needed (For anxiety) for up to 14 days.Disp: 30 tabletRfl: 1 metoprolol tartrate, short acting, (LOPRESSOR) 100 mg tabletTake 1 tablet by mouth twice daily.Disp: Rfl: doxycycline monohydrate (MONODOX) 100 mg capsuleTake 1 capsule by mouth twice daily.Disp: 20 capsuleRfl: 0 Prescriptions as of 07/31/2018 Sig: ALBUTEROL SULFATE 2.5 MG/3 ML* Use 3 mL via nebulizer every * AMIODARONE 200 MG TABLET Take 1 tablet by mouth once d* * ASPIRIN 81 MG TABLET Take one(1) tablet daily. ATORVASTATIN 40 MG TABLET Take 1 tablet by mouth daily * CODEINE 10 MG-GUAIFENESIN 100* Take 5 mL by mouth three time* COMPOUNDED PRESCRIPTION Home oxygen @ 2 L NC as neede* METFORMIN 500 MG TABLET Take 1 tablet by mouth twice * OMEPRAZOLE 20 MG CAPSULE,AKIRA* Take 1 capsule by mouth once * TICAGRELOR 90 MG TABLET Take 1 tablet by mouth twice * WARFARIN 2 MG TABLET Take 2 tablets by mouth once * DOXYCYCLINE MONOHYDRATE 100 M* Take 1 capsule by mouth twice* FUROSEMIDE 40 MG TABLET Take 1 tablet by mouth once d* LORAZEPAM 0.5 MG TABLET Take 1 tablet by mouth twice * METOPROLOL TARTRATE 100 MG TA* Take 1 tablet by mouth twice * Problem List As Of Date 07/31/2018 Noted Resolved OBESITY NOS [E66.9] INVALID FOR* BENIGN HYPERTENSION [I10] INVALID FOR* Hyperlipidemia [E78.5] INVALID FOR* IMPOTENCE, ORGANIC ORIGN [N52.9] INVALID FOR* IMPAIRED FASTING GLUCOSE [R73.01] INVALID FOR* Bullous pemphigoid [L12.0] INVALID FOR* Type 2 diabetes mellitus without complication, *INVALID FOR* Prescriptions ordered this encounter Disp Refills Start End FUROSEMIDE 40 MG TABLET 07/31/2018 Class: Med Update Route: ORAL Sig: Take 1 tablet by mouth once daily. LORAZEPAM 0.5 MG TABLET 30 t* 1 07/31/2018 08/14/2018 Class: Print RX Route: ORAL Sig: Take 1 tablet by mouth twice daily as needed (For anxiety) for up to 14 days. METOPROLOL TARTRATE 100 MG TABLET 07/31/2018 Class: Med Update Route: ORAL Sig: Take 1 tablet by mouth twice daily. DOXYCYCLINE MONOHYDRATE 100 MG CAPSU* 20 c* 0 07/31/2018 Class: Print RX Route: ORAL Sig: Take 1 capsule by mouth twice daily. Medications Discontinued During This Encounter furosemide (LASIX) 20 mg tablet 07/06/2018 07/31/2018 Class: Historical Med Route: ORAL Sig: Take 1 tablet by mouth once daily. Disc: Reason for discontinue is not on file. metoprolol tartrate, short acting, (* 180 * 3 02/05/2018 07/31/2018 Route: ORAL Sig: Take 1 tablet by mouth twice daily. Disc: Reason for discontinue is not on file. hydroCHLOROthiazide (HYDRODIURIL, ES* 90 t* 3 02/05/2018 07/31/2018 Route: ORAL Sig: Take 1 tablet by mouth once daily. Patient not taking: Reported on 07/25/2018 Disc: Reason for discontinue is not on file. LORazepam (ATIVAN) 0.5 mg tab 10 t* 1 07/16/2018 07/31/2018 Class: Print RX Route: ORAL Sig: Take 1 tablet by mouth twice daily as needed (For anxiety) for up to 14 days. Disc: Reason for discontinue is not on file. Disposition: Return in about 10 days (around 08/10/2018). Follow-up and Disposition History Recorded Encounter Status:Closed by SAUMYA NEWTON MD on 08/01/18 CARDIOLOGY VISIT Observed: 07/29/2018 Status: F Source: [place] REPORT 2:07 PM [facility] [place] [facility] [place] [address] [place] [address] OFFICE VISIT Date of Service: 07/29/18 MR#: [id number] Acct: [id number] Name: NORRIS STEIN Rep #: [id number] : 1940 Provider: Kulwant Godoy MD Age/Sex: 77/M Location: [facility] [place] Status: Signed HPI HPI Details: NORRIS STEIN, is a 77 M who presents to the office today for outpatient cardiovascular follow-up. As you recall he was evaluated in cardiovascular consultation on 07/03/2018 at [facility] for concerns of atrial fibrillation/flutter, findings compatible with a cardiomyopathy, CHF-systolic, hyperlipidemia, hypertension, hyperglycemia, renal insufficiency, and subsequently went on to be diagnosed with underlying CAD requiring RCA PCI. He notes overall he is not having ongoing chest discomfort. He has not had any obvious recurrent palpitations once he regained sinus rhythm. There is been no near syncope or syncope. There are concerns that he has been having symptoms still compatible with CHF with respect to shortness of breath, wheezing, coughing, and orthopnea as well as lower extremity peripheral pitting edema. Intake Vital Signs07/29/18 Body Mass Index (BMI) 39.7 07/29/18 Height 5 ft 5 in 07/29/18 Weight: 225 lb 07/29/18 Body Mass Index (BMI) 37.4 07/29/18 Blood Pressure 118/54 L Intake Visit Reasons: a fib Allergies No Known Allergies Allergy (Verified 07/29/18 12:02) Medications Aspirin [Aspirin, Baby] 81 mg PO DAILY@0800 07/02/18 [History Confirmed 07/29/18] Metformin HCl [Glucophage] 500 mg PO BID 07/02/18 [History Confirmed 07/29/18] Omeprazole [Prilosec] 20 mg PO DAILY 07/02/18 [History Confirmed 07/29/18] Amiodarone HCl [Cordarone] 200 mg PO BID #28 tab 07/06/18 [Rx] albuterol sulfate 2.5 mg/3 mL (0.083 %) solution for nebulization 1.25 mg INHALATION Q4H PRN 07/29/18 [History Confirmed 07/29/18] amiodarone 200 mg tablet 200 mg PO DAILY #30 tab 07/29/18 [Rx Confirmed 07/29/18] atorvastatin 40 mg tablet 40 mg PO QHS #30 tab 07/29/18 [Rx Confirmed 07/29/18] codeine 6.3 mg-guaifenesin 100 mg/5 mL oral liquid 5 ml PO Q8H PRN ml 07/29/18 [History Confirmed 07/29/18] furosemide 40 mg tablet 40 mg PO DAILY #30 tab 07/29/18 [Rx Confirmed 07/29/18] lorazepam 0.5 mg tablet 0.5 mg PO QD-BID PRN 07/29/18 [History Confirmed 07/29/18] metoprolol tartrate 100 mg tablet 100 mg PO BID #60 tab 07/29/18 [Rx Confirmed 07/29/18] ticagrelor 90 mg tablet 90 mg PO BID #60 tab 07/29/18 [Rx Confirmed 07/29/18] warfarin 4 mg tablet 4 mg PO .COMPLEX tab 07/29/18 [History] PFSH Medical History Essential hypertension (Chronic) HLD (hyperlipidemia) (Chronic) GERD (gastroesophageal reflux disease) (Chronic) Paroxysmal A-fib (Acute) Atrial fibrillation and flutter (Acute) Cardiomyopathy (Acute) CHF (congestive heart failure) (Acute) Hyperglycemia (Chronic) Renal insufficiency (Chronic) FPC (current) use of anticoagulants (Acute) Atherosclerotic heart disease of [place] coronary artery without angina pectoris (Chronic) Encounter for routine circumcision (Acute) Surgical History S/P coronary artery stent placement (Chronic 07/04/18) History of hernia repair (Acute) History of hip replacement (Acute) History of partial knee replacement (Acute) Family History Mother Hypertension Heart disease Social History Smoking Status: Never smoker alcohol intake: never substance use type: does not use ROS Const Const: Positive for fatigue and weakness (continues, still recovering); negative for weight gain, weight loss, frequent falls or excessive sweating Eyes Eyes: Negative for change in vision, blurry vision or transient loss of vision ENT ENT: Negative for dizziness or balance problems Cardio Chest Pain: No Palpitations: No Edema: None, Bilateral (+1-2) Muscle aches with walking: None Resp Respiratory: Positive for SOB with activity, SOB at rest, SOB orthopnea\SOB lying down and Cough (Dry, ocasional sputum greenish/yellow) Additional Details: Patient using 2LNC PRN GI GI: Negative vomiting or vomiting blood/hematemesis : Negative for hematuria Musc Musc: Negative for balance problems, muscle aches/ myalgia, muscle weakness or joint pain Skin Skin: Negative non-healing lesions or rash Neuro Neuro: Positive for weakness (continues, still recovering) and lightheadedness (with SOB); negative for blurry vision, dizziness, frequent falls or orthostatic symptoms Kelechi Hematologic/Lymphatic: Negative for easy bleeding Endo Endo: Positive for fatigue; negative for excessive sweating Psych Psych: Negative for anxiety or depression Allergy Allergy/Immunology: Negative for hives, Negative for rash Cardiology Exam Const Appearance: cooperative, healthy appearing, comfortable, no acute distress, well developed and well groomed Nutritional Appearance: overweight Orientation: alert, awake and oriented x3 Head Head: normal to inspection, normocephalic and atraumatic Ears: hearing grossly normal bilaterally Nose: external nose normal Face and Sinus: face symmetric Mouth: oral mucosae normal Teeth and gingiva: fair dentition Eyes Eyelids: eyelids normal Conjunctivae: conjunctivae normal Pupils: PERRL EOM: EOM intact bilaterally Neck Neck: normal visual inspection and full ROM Carotids: normal carotid upstroke Chest Chest inspection: normal inspection of the chest, symmetric chest movement and normal respiratory effort Auscultation: Bilateral: Clear to Auscultation Cardio Palpation: normal PMI Rate: regular rate Rhythm: regular rhythm Heart sounds: S1 normal and S2 normal GI GI: normal to inspection, bowel sounds present and soft Neuro General: alert, moves all extremities, no focal sensory deficit, no focal motor deficits and CN's II-XI intact bilaterally Skin Skin: no rashes or lesions noted Extremities Pulses: Normal: Right Radial Pulse, Left Radial Pulse Lower Extremity Edema: +2: Bilateral Psych Psychological: normal affect Assessment AND Plan 1. Atherosclerosis of [place] coronary artery of [place] heart without angina pectoris I25.10 Plan At the present time he appears to be without acute symptoms. He will continue medical management. He is going to be enrolled in outpatient cardiac rehabilitation 2. S/P coronary artery stent placement Z95.5 PTCA/CARLOS of the RCA 07/04/18 Plan Again he appears to be without acute symptoms. He will continue medical therapy. He will continue enrollment in cardiac rehabilitation 3. Atrial fibrillation and flutter I48.91; I48.92 Plan He did have a follow-up ECG in the office today. He remains in sinus rhythm/sinus bradycardia at this time. He has had no other new acute changes. He will continue his rate control therapy, antiarrhythmic therapy with his amiodarone taper, and his anticoagulant therapy Orders Orders: 4. Cardiomyopathy I42.9 Plan He does have an element of diminished LV systolic function. Hopefully this will improve over time with respect to maintaining sinus rhythm as well as having his PCI procedure performed. His overall LV wall motion and systolic function will be followed over time with echocardiographic studies. 5. Chronic systolic congestive heart failure I50.22 Plan He does still have symptoms concerning for chronic systolic CHF. He will increase his furosemide to 40 mg a day. He will have a follow-up BMP. He will continue with future outpatient follow-up. He will notify the office of any concerns in the interim 6. Hyperlipidemia, unspecified hyperlipidemia type E78.5 Plan He will continue risk factor modification medical management 7. Essential hypertension I10 Plan His blood pressure appears to be reasonably well controlled. He will continue medical therapy 8. 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 He is considering changing his anticoagulant therapy monitoring from his [facility] group to the [facility]. He will notify the office when he chooses to do so. Plan Detail Other Orders Orders: Other Medications Changed: Refilled: Additional Comments If over time despite ongoing cardiovascular evaluation, medical therapy, etc. he continues with concerns of respiratory symptoms that are not thought related to his cardiac condition and he may need further evaluation from a pulmonary standpoint. The above was discussed with the patient, his spouse, and his son. They were agreeable to this approach Thank you for allowing me to participate in the care of your patient. Please don't hesitate to call if any issues arise. This note was generated using a voice recognition system and there may be incorrect words, spelling or punctuation that were not noted when reviewing the office note prior to saving. Follow Up 3 Months (PFM) Coding Level of Care Code Off vis,est,level 4 Diagnoses Atherosclerosis of [place] coronary artery of [place] heart without angina pectoris I25.10 [place] vs. transplanted heart: [place] heart S/P coronary artery stent placement Z95.5 Atrial fibrillation and flutter I48.91; I48.92 Cardiomyopathy I42.9 Chronic systolic congestive heart failure I50.22 Heart failure type: systolic Heart failure chronicity: chronic Hyperlipidemia, unspecified hyperlipidemia type E78.5 Hyperlipidemia type: unspecified Essential hypertension I10 intermediate frame tender current use of anticoagulant Z79.01 Coding Level of Care Code Off vis,est,level 4 Diagnoses Atherosclerosis of [place] island coronary artery of [place] heart without angina pectoris I25.10 [place] vs. transplanted heart: [place] heart S/P coronary artery stent placement Z95.5 Atrial fibrillation and flutter I48.91; I48.92 Cardiomyopathy I42.9 Chronic systolic congestive heart failure I50.22 Heart failure type: systolic Heart failure chronicity: chronic Hyperlipidemia, unspecified hyperlipidemia type E78.5 Hyperlipidemia type: unspecified Essential hypertension I10 intermediate frame tender current use of anticoagulant Z79.01 07/29/18 1407 <Electronically signed by Kulwant Godoy MD> Date Kulwant Godoy MD Cosigner Signature: Date (if applicable) CC: Saumya Newton MD 12 LEAD EKG PERFORMED Observed: 07/29/2018 Status: F Source: [facility] BY [facility] 12:[address] [address] 12 Lead EKG performed by [facility] 07/29/181200 MR#: [id number] Acct: [id number] Name: NORRIS STEIN Rep #: [id number] : 1940 77 From: Kulwant Godoy MD Attending Dr: Kulwant Godoy MD Status: REG AMB Ordering Dr: Kulwant Godoy MD Date: 07/29/18 Location: [facility] [place] Sex: M C Admitted: [facility]/12 Lead EKG performed by [facility] ECG Report Interpretation Sinus Bradycardia Electronically signed on 07/29/2018 at 14:52 by Kulwant Godoy Software Version [id number] 07/29/18 1454 Date Kulwant Godoy MD CC: Date Dictated: 07/29/181200 Date Transcribed: 07/29/181200 Visual Display Manager: PM Signed CNPN Observed: 07/26/2018 Status: COMPLETED Source: [place] 12:00 AM [facility] REPOSITORY Telephone (FAMPWS) NORRIS STEIN ([id number]) 1940 M Date Time Provider Department 07/26/18 ANAM STRICKLAND ([place]) FAMPWS During your visit today, we recorded the following information about you: Marry Arroyojose roberto SKINNER 07/26/2018 3:51 PM Signed Ben Pagander patient son in law calling asking for rx to change oxygen concentrator to liquid oxygen since they do not have electric and only has small tank that fire department let him use. Wants rx faxed to [facility] so Liquid tank can be delivered before the weekend. Patient was seen in urgent care and has fluid in his lungs and has appt to see Dr Godoy on Sunday. son in law says Norris does not use oxygen all the time but uses 2 liters when he is short of breath. Gave me fax number for [facility] [phone], he had spoke to them already today. Aware PCP is out of office until 07/31/2018. Please advise Anam Strickland APRN.CNP 07/26/2018 4:12 PM Signed Order for home oxygen ordered. Can resend [facility], notify patient. IVET Zelaya [facility] 07/26/2018 4:16 PM Signed Rx faxed, patient notified via Anam Strickland APRN.CNP 07/26/2018 4:26 PM Signed Addended by: ANAM STRICKLAND CNP on: 07/26/2018 04:26 PM Modules accepted: Orders Analisa Cedillo [facility] 07/26/2018 4:29 PM Signed New Rx faxed, Allergies As of Date: 07/26/2018 (No Known Allergies) Date Reviewed: 07/25/2018 Reviewed by: Sarah Mean Ma - Fully Assessed Reason for Visit: wants rx for liquid oxygen [Other] Primary Visit Diagnosis:Acute on chronic congestive heart failure, unspecified heart failure type (HCC) [I50.9] Order(s):COMPOUNDED PRESCRIPTIONHome oxygen @ 2 L NC as needed, portable. ICD-10 I50.9, Spiritism- no electric. Does not want to go to generatorDisp: 1 EachRfl: 0 Prescriptions as of 07/26/2018 Sig: ALBUTEROL SULFATE 2.5 MG/3 ML* Use 3 mL via nebulizer every * AMIODARONE 200 MG TABLET Take 1 tablet by mouth once d* * ASPIRIN 81 MG TABLET Take one(1) tablet daily. ATORVASTATIN 40 MG TABLET Take 1 tablet by mouth daily * CODEINE 10 MG-GUAIFENESIN 100* Take 5 mL by mouth three time* COMPOUNDED PRESCRIPTION Home oxygen @ 2 L NC as neede* FUROSEMIDE 20 MG TABLET Take 1 tablet by mouth once d* HYDROCHLOROTHIAZIDE 25 MG TAB* Take 1 tablet by mouth once d* Patient not taking: Reported on 07/25/2018 LORAZEPAM 0.5 MG TABLET Take 1 tablet by mouth twice * METFORMIN 500 MG TABLET Take 1 tablet by mouth twice * METOPROLOL TARTRATE 25 MG TAB* Take 1 tablet by mouth twice * OMEPRAZOLE 20 MG CAPSULE,AKIRA* Take 1 capsule by mouth once * TICAGRELOR 90 MG TABLET Take 1 tablet by mouth twice * WARFARIN 2 MG TABLET Take 2 tablets by mouth once * Problem List As Of Date 07/26/2018 Noted Resolved OBESITY NOS [E66.9] INVALID FOR* BENIGN HYPERTENSION [I10] INVALID FOR* Hyperlipidemia [E78.5] INVALID FOR* IMPOTENCE, ORGANIC ORIGN [N52.9] INVALID FOR* IMPAIRED FASTING GLUCOSE [R73.01] INVALID FOR* Bullous pemphigoid [L12.0] INVALID FOR* Type 2 diabetes mellitus without complication, *INVALID FOR* Prescriptions ordered this encounter Disp Refills Start End COMPOUNDED PRESCRIPTION 1 Ea* 0 07/26/2018 07/26/2018 Class: Print RX Sig: Home oxygen @ 2 L NC, with portable , ICD-10: I50.9 COMPOUNDED PRESCRIPTION 1 Ea* 0 07/26/2018 Class: Print RX Sig: Home oxygen @ 2 L NC as needed, portable. ICD-10 I50.9, Spiritism- no electric. Does not want to go to generator Medications Discontinued During This Encounter COMPOUNDED PRESCRIPTION 1 Ea* 0 07/26/2018 07/26/2018 Class: Print RX Sig: Home oxygen @ 2 L NC, with portable , ICD-10: I50.9 Disc: Reason for discontinue is not on file. Encounter Status:Closed by ANALISA CEDILLO CMA on 07/26/18 XR CHEST 2V FRONTAL/LAT Observed: 07/25/2018 Status: F Source: [place] 11:02 AM [facility] REPOSITORY * * *Final Report* * * DATE OF EXAM: Jul 25 2018 11:02AM WOX [id number] - XR CHEST 2V FRONTAL/LAT / PROCEDURE REASON: Cough * * * * Physician Interpretation * * * * EXAMINATION: CHEST RADIOGRAPH (2 VIEW FRONTAL and LATERAL) CLINICAL HISTORY: Cough MQ: XC2_5 Comparison: None RESULT: Lines, tubes, and devices: None. Lungs and pleura: Cardiac size is upper limits of normal. Minimal atelectasis or fibrosis is seen at both lung bases. The remaining lung epps are clear. There is no evidence of pleural fluid or pneumothorax. IMPRESSION: Minimal atelectasis or fibrosis at both lung bases. Otherwise no acute process. Visual Display Manager: PSCB Transcribe Date/Time: Jul 25 2018 12:35P Dictated by : GEMMA COTTON MD This examination was interpreted and the report reviewed and electronically signed by: GEMMA COTTON MD on Jul 25 2018 12:36PM EST [id number] PROGRESS Observed: 07/25/2018 Status: COMPLETED Source: [place] 10:53 AM [facility] REPOSITORY HNO ID: [id number] Author: Minoo Wheeler (Rt) Oli Lyle Service: (none) Author Type: Air Quality Manager Type: Progress Notes Filed: 07/25/2018 11:02 AM Note Text: Radiology Service Progress Note PATIENT NAME: Norris Stein DATE OF SERVICE: July 25, 2018 TIME: 10:53 AM PATIENT IDENTITY VERIFICATION COMPLETED USING TWO (2) METHODS: Patient confirmed name verbally and Date of . PATIENT GENDER DATA: Male PATIENT RELEVANT IMPLANT DATA REVIEWED: Not Applicable RADIOLOGY DEPARTMENT: General X-ray: Exam(s) Completed: Chest X-Ray PERIPHERAL IV DATA: Not applicable SIGNED BY: RT Jayden July 25, 2018 10:53 AM PROGRESS Observed: 07/25/2018 Status: COMPLETED Source: [place] 10:24 AM [facility] REPOSITORY HNO ID: [id number] Author: Rafael Fenton Service: (none) Author Type: Physician Type: Progress Notes Filed: 07/25/2018 11:26 AM Note Text: Patient presents with: Chest Congestion: cough x 3 weeks HPI: Feeling sick for 3 weeks with cough. Started since admitted for tachycardia and coronary stent. Discharge Dx with Afib and CHF. Positive symptoms: Cough, sometimes productive, Shortness of breath, sleeps sitting in chair, leg swelling (better than before admission), Negative symptoms: Sinus pressure, Nasal Congestion, Rhinorrhea, Fever, palpitations, OTC: using albuterol tid, oxygen helps, PAST MEDICAL HISTORY Diagnosis Date - DM (diabetes mellitus) (HCC) - Essential hypertension, benign - Other and unspecified hyperlipidemia - Other specified family circumstances MEDICATIONS: Current Outpatient Prescriptions: albuterol (PROVENTIL) 2.5 mg /3 mL (0.083 %) nebulizer solution Use 3 mL via nebulizer every 4 hours as needed for Wheezing/Shortness of Breath. Use over 5-15minutes. amiodarone (PACERONE) 200 mg tablet Take 1 [...] Take 1 tablet by mouth once daily. LORazepam (ATIVAN) 0.5 mg tab Take 1 tablet by mouth twice daily as needed (For anxiety) for up to 14 days. metFORMIN (GLUCOPHAGE) 500 mg tablet Take 1 tablet by mouth twice daily with meals. . metoprolol tartrate, short acting, (LOPRESSOR) 25 mg tablet Take 1 tablet by mouth twice daily. omeprazole (PRILOSEC) 20 mg capsule Take 1 capsule by mouth once daily. ticagrelor (BRILINTA) 90 mg tablet Take 1 tablet by mouth twice daily. warfarin (COUMADIN) 2 mg tablet Take 2 tablets by mouth once daily. hydroCHLOROthiazide (HYDRODIURIL, ESIDRIX) 25 mg tablet Take 1 tablet by mouth once daily. (Patient not taking: Reported on 07/25/2018 ) No current facility-administered medications for this visit. ALLERGIES: ALLERGIES No Known Allergies VITALS: BP 122/70 Pulse (!) 50 Temp 36.7 ?C (98.1 ?F) (Tympanic) Resp 16 Wt 103.9 kg (229 lb) SpO2 94% BMI 37.53 kg/m? Last 4 Encounter Wt Readings: Date: Wt: 07/25/2018 103.9 kg (229 lb) 07/16/2018 105.2 kg (232 lb) 07/02/2018 110.7 kg (244 lb) 05/01/2018 108.9 kg (240 lb) PHYSICAL EXAM: GEN: Pleasant, in no acute distress. HEENT: PERRL, EOMI, conjunctiva clear Ears: TMs without erythema, bulge, or effusion Throat: moist mucous membranes, no erythema, no exudate Neck: supple, no thyromegaly, no lymphadenopathy HEART: slow rate and irregular rhythm, no murmurs LUNGS: Bilateral wheezes and fine crackles, mild increased WOB on exertion EXT: 1-2+pitting edema ASSESSMENT/PLAN: 1. Cough - ICD9: 786.2, ICD10: R05 (primary diagnosis) 2. Wheezing - ICD9: 786.07, ICD10: R06.2 3. Acute on chronic congestive heart failure, unspecified heart failure type (HCC) - ICD9: 428.0, ICD10: I50.9 - XR CHEST 2V FRONTAL/LAT - no acute pneumonia. Radiology interpretation is pending. The patient will be notified if there is a significant finding in the report not discussed at the time of the visit. Suspect CHF causing cough. Cough is improving some. Weight is decreasing. Continue to work with PCP and cardiology to optimize medication. As needed albuterol if it provides noticeable improvement in wheezing. Low sodium diet. 4. Coronary artery disease involving [place] heart, angina presence unspecified, unspecified vessel or lesion type - ICD9: 414.01, ICD10: I25.10 Continue Billinta. Discuss plavix with cardiology since he has concerns about cost. 5. Atrial fibrillation, unspecified type (HCC) - ICD9: 427.31, ICD10: I48.91 He is aware of increase bleeding risk on warfarin. He is interested in newer anticoagulants. D/w PCP. Rafael Fenton MD CNOV Observed: 07/25/2018 Status: COMPLETED Source: [place] 9:45 AM [facility] REPOSITORY Office Visit (WSTR) NORRIS STEIN ([id number]) 1940 M Date Time Provider Department 07/25/18 9:45 AM RAFAEL FENTON [facility] During your visit today, we recorded the following information about you: Temperature Pulse Respiration Blood pressure 98.1 degrees 50/minute 16/minute 122/70 Weight 103.9 kg Rafael Fenton MD 07/25/2018 11:26 AM Signed Patient presents with: Chest Congestion: cough x 3 weeks HPI: Feeling sick for 3 weeks with cough. Started since admitted for tachycardia and coronary stent. Discharge Dx with Afib and CHF. Positive symptoms: Cough, sometimes productive, Shortness of breath, sleeps sitting in chair, leg swelling (better than before admission), Negative symptoms: Sinus pressure, Nasal Congestion, Rhinorrhea, Fever, palpitations, OTC: using albuterol tid, oxygen helps, PAST MEDICAL HISTORY Diagnosis Date - DM (diabetes mellitus) (HCC) - Essential hypertension, benign - Other and unspecified hyperlipidemia - Other specified family circumstances MEDICATIONS: Current Outpatient Prescriptions: albuterol (PROVENTIL) 2.5 mg /3 mL (0.083 %) nebulizer solution Use 3 mL via nebulizer every 4 hours as needed for Wheezing/Shortness of Breath. Use over 5-15minutes. amiodarone (PACERONE) 200 mg tablet Take 1 [...] Take 1 tablet by mouth once daily. LORazepam (ATIVAN) 0.5 mg tab Take 1 tablet by mouth twice daily as needed (For anxiety) for up to 14 days. metFORMIN (GLUCOPHAGE) 500 mg tablet Take 1 tablet by mouth twice daily with meals. . metoprolol tartrate, short acting, (LOPRESSOR) 25 mg tablet Take 1 tablet by mouth twice daily. omeprazole (PRILOSEC) 20 mg capsule Take 1 capsule by mouth once daily. ticagrelor (BRILINTA) 90 mg tablet Take 1 tablet by mouth twice daily. warfarin (COUMADIN) 2 mg tablet Take 2 tablets by mouth once daily. hydroCHLOROthiazide (HYDRODIURIL, ESIDRIX) 25 mg tablet Take 1 tablet by mouth once daily. (Patient not taking: Reported on 07/25/2018 ) No current facility-administered medications for this visit. ALLERGIES: ALLERGIES No Known Allergies VITALS: BP 122/70 Pulse (!) 50 Temp 36.7 ?C (98.1 ?F) (Tympanic) Resp 16 Wt 103.9 kg (229 lb) SpO2 94% BMI 37.53 kg/m? Last 4 Encounter Wt Readings: Date: Wt: 07/25/2018 103.9 kg (229 lb) 07/16/2018 105.2 kg (232 lb) 07/02/2018 110.7 kg (244 lb) 05/01/2018 108.9 kg (240 lb) PHYSICAL EXAM: GEN: Pleasant, in no acute distress. HEENT: PERRL, EOMI, conjunctiva clear Ears: TMs without erythema, bulge, or effusion Throat: moist mucous membranes, no erythema, no exudate Neck: supple, no thyromegaly, no lymphadenopathy HEART: slow rate and irregular rhythm, no murmurs LUNGS: Bilateral wheezes and fine crackles, mild increased WOB on exertion EXT: 1-2+pitting edema ASSESSMENT/PLAN: 1. Cough - ICD9: 786.2, ICD10: R05 (primary diagnosis) 2. Wheezing - ICD9: 786.07, ICD10: R06.2 3. Acute on chronic congestive heart failure, unspecified heart failure type (HCC) - ICD9: 428.0, ICD10: I50.9 - XR CHEST 2V FRONTAL/LAT - no acute pneumonia. Radiology interpretation is pending. The patient will be notified if there is a significant finding in the report not discussed at the time of the visit. Suspect CHF causing cough. Cough is improving some. Weight is decreasing. Continue to work with PCP and cardiology to optimize medication. As needed albuterol if it provides noticeable improvement in wheezing. Low sodium diet. 4. Coronary artery disease involving [place] heart, angina presence unspecified, unspecified vessel or lesion type - ICD9: 414.01, ICD10: I25.10 Continue Billinta. Discuss plavix with cardiology since he has concerns about cost. 5. Atrial fibrillation, unspecified type (HCC) - ICD9: 427.31, ICD10: I48.91 He is aware of increase bleeding risk on warfarin. He is interested in newer anticoagulants. D/w PCP. Rafael Fenton MD Referring Provider: SELF [200] Allergies As of Date: 07/25/2018 (No Known Allergies) Date Reviewed: 07/25/2018 Reviewed by: Sarah Mena Ma - Fully Assessed Reason for Visit: Chest Congestion [236] Cmt: cough x 3 weeks Primary Visit Diagnosis:Cough [R05] Other Visit Diagnoses:Wheezing [R06.2] Acute on chronic congestive heart failure, unspecified heart failure type (HCC) [I50.9] Coronary artery disease involving [place] heart, angina presence unspecified, unspecified vessel or lesion type [I25.10] Atrial fibrillation, unspecified type (HCC) [I48.91] Order(s):XR CHEST 2V FRONTAL/LAT [[id number]] Order #: [id number] FUTURE Prescriptions as of 07/25/2018 Sig: ALBUTEROL SULFATE 2.5 MG/3 ML* Use 3 mL via nebulizer every * AMIODARONE 200 MG TABLET Take 1 tablet by mouth once d* * ASPIRIN 81 MG TABLET Take one(1) tablet daily. ATORVASTATIN 40 MG TABLET Take 1 tablet by mouth daily * CODEINE 10 MG-GUAIFENESIN 100* Take 5 mL by mouth three time* FUROSEMIDE 20 MG TABLET Take 1 tablet by mouth once d* LORAZEPAM 0.5 MG TABLET Take 1 tablet by mouth twice * METFORMIN 500 MG TABLET Take 1 tablet by mouth twice * METOPROLOL TARTRATE 25 MG TAB* Take 1 tablet by mouth twice * OMEPRAZOLE 20 MG CAPSULE,AKIRA* Take 1 capsule by mouth once * TICAGRELOR 90 MG TABLET Take 1 tablet by mouth twice * WARFARIN 2 MG TABLET Take 2 tablets by mouth once * HYDROCHLOROTHIAZIDE 25 MG TAB* Take 1 tablet by mouth once d* Patient not taking: Reported on 07/25/2018 Problem List As Of Date 07/25/2018 Noted Resolved OBESITY NOS [E66.9] INVALID FOR* BENIGN HYPERTENSION [I10] INVALID FOR* Hyperlipidemia [E78.5] INVALID FOR* IMPOTENCE, ORGANIC ORIGN [N52.9] INVALID FOR* IMPAIRED FASTING GLUCOSE [R73.01] INVALID FOR* Bullous pemphigoid [L12.0] INVALID FOR* Type 2 diabetes mellitus without complication, *INVALID FOR* Encounter Status:Closed by RAFAEL FENTON MD on 07/25/18 PROGRESS Observed: 07/25/2018 Status: COMPLETED Source: [place] 9:42 AM [facility] REPOSITORY HNO ID: [id number] Author: John Mckeon) Yoav Service: (none) Author Type: Physician Type: Progress Notes Filed: 07/25/2018 9:42 AM Note Text: INR therapeutic. Continue current coumadin dosage and follow up in 2 weeks. PROGRESS Observed: 07/25/2018 Status: COMPLETED Source: [place] 9:33 AM [facility] REPOSITORY HNO ID: [id number] Author: Vanessa Mckeon RN Service: (none) Author Type: (none) Type: Progress Notes Filed: 07/25/2018 9:35 AM Note Text: patient had inr completed at [facility] patients inr is 2.3 (patients inr range is 2.0-3.0) patient is currently taking 2mg daily patients last dose change 07/18/18 due to a high level of 5.6 (dose at that time was 4mg daily) patient has had no changes in medication except for coumadin and no missed doses and no change in diet Advised patient to continue on the same dose(s) and that they would only be contacted regarding dosage and follow up instructions after review with provider, if a change is needed. Written instructions given and patient verbalized understanding. Presently scheduled in 2 weeks (08/09/18) for follow up INR since this is the first normal reading since dose change. PROTIME Collected: 07/22/2018 Status: F Source: [place] 7:48 AM [facility] REPOSITORY TYPE CODE TESTS RESULT OUT OF REFERENCE UNITS RANGE LAB PSEC 9.7-13.0 sec Test PT sent to [facility]. Result Comment: Account Credited HIDE LAB INR 0.9-1.3 Test sent to PT INR [facility]. Result Comment: Account Credited KAROLINE COMP METABOLIC PANEL Collected: 07/22/2018 Status: F Source: [place] 7:48 AM [facility] REPOSITORY TYPE CODE TESTS RESULT OUT OF REFERENCE UNITS RANGE LAB TP 6.3-8.0 g/dL Protein, Total 6.8 LAB ALB 3.9-4.9 g/dL Low Albumin 3.8 LAB CA 8.5-10.2 mg/dL Calcium, Total 8.8 LAB TBIL 0.2-1.3 mg/dL Bilirubin, Total 0.6 LAB ALKP 38-113 U/L Alkaline Phosphatase 62 LAB AST 14-40 U/L AST 25 LAB GLU 74-99 mg/dL Glucose High 114 Result Comment: The [place] Diabetes [employer] (ADA) provides guidance for cutoff [...] Standards of Medical Care in Diabetes 2016, [place] [employer]. Diabetes Care. 2016.39(Suppl 1). LAB [...] GFR. Performed By: #### CMP, HBA1C #### [facility] [address], [place] [address] HEMOGLOBIN A1C Collected: 07/22/2018 Status: F Source: [place] 7:48 AM [facility] REPOSITORY TYPE CODE TESTS RESULT OUT OF REFERENCE UNITS RANGE LAB HGBA1C 4.3-5.6 % High Hemoglobin A1c 6.7 Result Comment: [place] [employer] guidelines indicate that patients with HgbA1c in the range 5.7-6.4% are at increased risk for development of diabetes, and intervention by lifestyle modification may be beneficial. HgbA1c greater or equal to 6.5% is considered diagnostic of diabetes. LAB HBA0 mg/dL Est. Average Glucose 146 Result Comment: eAG: (Estimated average glucose) is a calculated value from HgbA1c and is field service representative of the average blood glucose level in the last 2-3 month period. Performed By: #### CMP, HBA1C #### [facility] [address], [place] [address] PROTHROMBIN TIME W/INR Collected: 07/22/2018 Status: F Source: [place] 7:48 AM [facility] TYPE CODE TESTS RESULT OUT OF RANGE REFERENCE UNITS LAB L300.4150 11.7-14.9 SECONDS High PROTIME 27.9 LAB L300.4200 Normal INR 2.6 Performed By: #### L300.3900 #### [facility] [address] [place], [address] CR - HISTORY AND Observed: 07/18/2018 Status: F Source: [place] PHYSICAL 1:13 PM [facility] [address] [place] [address] CR - History AND Physical MR#: [id number] Acct: [id number] Name: NORRIS STEIN Rep #: [id number] : 1940 77 From: Cindy Graff RN PCP: Saumya Newton MD DOS: 07/18/18 CR - History AND Physical - General Arrival date:: 07/18/18 Arrival time:: 10:00 Date of Referral:: 07/08/18 Date of CR Evaluation:: 07/18/18 Referring Physician: Dr. Godoy Primary Diagnosis: Presence of coronary angioplasty implant [...] Advanced Directives - Advanced Directives Power of Salesforce Business Analyst: No Living Will: No Advance Directives Information Provided: Yes Advance Directives on File: No DNR Order?:: No Past Medical History - Past Medical Illness Medical History: Past Medical History (Last Updated 07/18/18 @ 10:50 by Cindy Graff, HELGA) Atherosclerotic heart disease of [place] coronary artery without angina pectoris (Chronic) I25.10 [...] = Denies (Slash). Left click = Reports ([place]) Review of Present Symptoms: Reports: Shortness of [...] protocol. 07/18/18 1313 <Electronically signed by Kulwant Godoy MD> Cosigner Signature: Date Kulwant Godoy MD CC: Signed COMPREHENSIVE METABOLIC Collected: 07/18/2018 Status: F Source: [facility] 9:12 AM [facility] Order Comment: DR. NEWTON WANTS THE A1C CMP LIPID WANTS THE [...] 7 Performed By: #### L500.4050, L500.4100 #### [facility] [address] [place], [address] LIPID PROFILE Collected: 07/18/2018 Status: F Source: [place] 9:12 AM [facility] Order Comment: DR. NEWTON WANTS THE A1C CMP LIPID WANTS THE [...] 34 Performed By: #### L500.4050, L500.4100 #### [facility] [address] [place], [address] HEMOGLOBIN A1C Collected: 07/18/2018 Status: F Source: [place] 9:12 AM [facility] Order Comment: DR. NEWTON WANTS THE A1C CMP LIPID WANTS THE CMP PT TYPE CODE TESTS RESULT OUT OF RANGE REFERENCE UNITS LAB L501.9985 4.2-6.3 % High HGB A1C 7.1 Performed By: #### L501.9985 #### [facility] [address] [place], [address] PROTHROMBIN TIME W/INR Collected: 07/18/2018 Status: F Source: [place] 9:12 AM [facility] Order Comment: DR. NEWTON WANTS THE A1C CMP LIPID WANTS THE CMP PT TYPE CODE TESTS RESULT OUT OF REFERENCE UNITS RANGE LAB L300.4150 11.7-14.9 SECONDS High PROTIME 53.2 LAB L300.4200 High alert INR 5.9 Result Comment: CRITICAL VALUE VERIFIED. CALLED TO SORIN SKINNER 07/18/18 1101 Bernardo Szymanski. RESULTS READ BACK BY SAME. Performed By: #### L300.3900 #### [facility] [address], [address] CNOV Observed: 07/16/2018 Status: COMPLETED Source: [place] 10:00 AM [facility] REPOSITORY Office Visit (FAMPWS) NORRIS STEIN ([id number]) 1940 M Date Time Provider Department 07/16/18 10:00 AM SAUMYA NEWTON During your visit today, we recorded the following information about you: Pulse Respiration Blood pressure Weight 60/minute 20/minute 130/82 105.2 kg Saumya Newton MD 07/16/2018 11:47 AM Signed Transitional Care Management Progress Note The patients TCM visit was performed within the 14 days of discharge. Patient's Date of discharge: 07/06/18 Date of initial coordinator contact after discharge: 07/08/18 Discharge diagnosis: HTN (chronic), HLD (chronic), GERD (chronic) and Afib (Acute) Medication review completed Yes TRANSITION CARE MANAGEMENT (TCM) INITIAL CONTACT Plc Programmer Outreach ? Provider Action/FYI: ? - Returned call to pt to setup an appt for TCM within 7-14 days of discharge. ? - Pt reports feeling pretty well today. Notified MA that he completed blood work at [facility] (including INR) and we should be getting these results. Asks if other labs need completed. After review pt should only need A1c which can be done in the office or same day at the lab. ? - Pt states he will be follow up with [employer] at [facility] ([facility]), Dr. Godoy. Labs were placed today to complete at [facility] from Cardiology. ? - Pt has regularly scheduled OV on 07/31/18 and wonders if this appt will need kept. His and himself have appt's that day. Updated pt that we will discuss at upcoming appt to keep it scheduled as is. ? - INR today on lab work was 1.2 from results at [facility]. ? ? Initial contact with patient [...] Warfarin daily and being monitored by Dr. Godoy, INR on 07/12/18 was 3.5. The hospital would like to have patient checked for sleep apnea. He would like to hold off currently until starting to feel better. Following up with Dr. Godoy in August for an appointment. On current [...] Laterality Date - COLONOSCOP W/ OR W/O [facility] SPEC 04/08/15 Colonoscopy Family History No family [...] OVER WITH 5YR LOOKBACK Completed Data reviewed [facility] External Records ASSESSMENT/PLAN: 1. Hospital discharge [...] Past Histories independently gathered by the clinical database support and the remaining scribed note accurately describes my personal service to the patient. Saumya Newton MD The documentation for this note was completed by Lamar Rivero Ma acting as scribe for Saumya Newton MD. July 16, 2018 10:02 AM. I have reviewed the patient?s last hospital course including diagnostic testing performed during this hospitalization, their discharge medications, and my assessment and plan with the patient and any family members present at today?s visit. Referring Provider: SAUMYA NEWTON [[id number]] Allergies As of Date: 07/16/2018 (No Known Allergies) Date Reviewed: 07/16/2018 Reviewed by: Lamar Rivero Ma - Fully Assessed Reason for Visit: [...] insulin (HCC) [E11.9] Order(s):UA DIP, URINE (POC) [[id number]] Order #: [id number] #:[id number] albuterol (PROVENTIL) 2.5 mg /3 mL (0.083 %) nebulizer solutionUse 3 mL via nebulizer every 4 hours as needed for Wheezing/Shortness of Breath. Use over 5-15minutes.Disp: 50 VialRfl: 3 codeine-guaiFENesin (ROBITUSSIN AC) 10-100 mg/5 mL syrupTake 5 mL by mouth three times daily as needed for Cough for up to 30 days.Disp: 120 mLRfl: 1 OXYGEN CONCENTRATOR 2-3 LITER/MIN [[id number]] Order #: [id number] LORazepam (ATIVAN) 0.5 mg tabTake 1 tablet [...] Disposition History Recorded Encounter Status:Closed by SAUMYA NEWTON MD on 07/16/18 PROGRESS Observed: 07/16/2018 Status: COMPLETED Source: [place] 9:55 AM [facility] REPOSITORY HNO ID: [id number] Author: Saumya Newton Service: (none) Author Type: Physician Type: Progress [...] Yes TRANSITION CARE MANAGEMENT (TCM) INITIAL CONTACT Pl[employer] Programmer Outreach ? Provider Action/FYI: ? - Returned call to pt to setup an appt for TCM within 7-14 days of discharge. ? - Pt reports feeling pretty well today. Notified MA that he completed blood work at [facility] (including INR) and we should be getting these results. Asks if other labs need completed. After review pt should only need A1c which can be done in the office or same day at the lab. ? - Pt states he will be follow up with [employer] [facility] at [facility] ([facility]), Dr. Godoy. Labs were placed today to complete at [facility] from Cardiology. ? - Pt has regularly scheduled OV on 07/31/18 and wonders if this appt will need kept. His and himself have appt's that day. Updated pt that we will discuss at upcoming appt to keep it scheduled as is. ? - INR today on lab work was 1.2 from results at [facility]. ? ? Initial contact with patient [...] Warfarin daily and being monitored by Dr. Godoy, INR on 07/12/18 was 3.5. The hospital would like to have patient checked for sleep apnea. He would like to hold off currently until starting to feel better. Following up with Dr. Godoy in August for an appointment. On current [...] Laterality Date - COLONOSCOP W/ OR W/O [facility] SPEC 04/08/15 Colonoscopy Family History No family [...] OVER WITH 5YR LOOKBACK Completed Data reviewed [facility] External Records ASSESSMENT/PLAN: 1. Hospital discharge [...] Past Histories independently gathered by the clinical database support and the remaining scribed note accurately describes my personal service to the patient. Saumya Newton MD The documentation for this note was completed by Lamar Rivero Ma acting as scribe for Saumya Newton MD. July 16, 2018 10:02 AM. I have reviewed the patient?s last hospital course including diagnostic testing performed during this hospitalization, their discharge medications, and my assessment and plan with the patient and any family members present at today?s visit. BASIC METABOLIC Collected: 07/12/2018 Status: F Source: [place] PROFILE (BMP) 8:57 AM [facility] [facility] Order Comment: PATIENT STATED THERE WAS AN A1C ORDERED FROM DR NEWTON, [facility] MANA[facility]ORDON, STATES THEY ARE NOT DUE UNTIL AFTER [...] GAP 6 Performed By: #### L500.2500 #### [facility] [address] [place], [address] PROTHROMBIN TIME W/INR Collected: 07/12/2018 Status: F Source: [place] 8:57 AM [facility] TYPE CODE TESTS RESULT OUT OF REFERENCE UNITS RANGE LAB L300.4150 11.7-14.9 SECONDS High PROTIME 35.5 LAB L300.4200 High alert INR 3.5 Result Comment: CRITICAL VALUE VERIFIED. CALLED TO OFFICE [facility] 07/12/18 1053 Migdalia Cordova. RESULTS READ BACK BY SAME . Performed By: #### L300.3900 #### [facility] [address] [place], [address] 12 LEAD ELECTROCARDIOGRAM Observed: 07/11/2018 Status: F Source: [place] 3:26 PM [facility] [facility] Cardiovascular Services [address] [place] [address] 12 Lead EKG 07/04/18 1649 MR#: [id number] Acct: [id number] Name: NORRIS STEIN Rep #: [id number] : 1940 77 From: Kulwant Godoy MD Attending Dr: Jhon Garcia MD Status: DIS IN Ordering Dr: Kulwant Godoy MD Date: 07/04/18 Location: [facility] Sex: M C Admitted: 07/02/18 Test Reason : Blood Pressure : / mmHG Vent. Rate : 075 BPM Atrial Rate : 075 BPM P-R Int : 160 ms QRS Dur : 086 ms QT Int : 420 ms P-R-T Axes : 063 052 054 degrees QTc Int : 469 ms Sinus rhythm with Premature atrial complexes Otherwise normal ECG Confirmed by KULWANT GODOY MD ([id number]), communications editor AUBREY STEIN ([id number]) on 07/11/2018 3:25:46 PM Referred By: Confirmed By:KULWANT GODOY MD 07/11/18 1529 Date Kulwant Godoy MD CC: Saumya Newton MD; Jhon Garcia MD; Kulwant Godoy MD Signed 12 LEAD ELECTROCARDIOGRAM Observed: 07/11/2018 Status: F Source: [place] 3:26 PM [facility] [facility] [facility] Cardiovascular Services [address] [place] [address] 12 Lead EKG 07/04/18 1649 MR#: [id number] Acct: [id number] Name: NORRIS STEIN Rep #: [id number] : 1940 77 From: Kulwant Godoy MD Attending Dr: Jhon Garcia MD Status: DIS IN Ordering Dr: Kulwant Godoy MD Date: 07/04/18 Location: [facility] Sex: M C Admitted: 07/02/18 Test Reason : Blood Pressure : / mmHG Vent. Rate : 073 BPM Atrial Rate : 073 BPM P-R Int : 158 ms QRS Dur : 086 ms QT Int : 422 ms P-R-T Axes : 069 053 057 degrees QTc Int : 464 ms Sinus rhythm with Premature supraventricular complexes Otherwise normal ECG Confirmed by KULWANT GODOY MD ([id number]), communications editor AUBREY STEIN ([id number]) on 07/11/2018 3:25:54 PM Referred By: Confirmed By:KULWANT GODOY MD 07/11/18 1523 Date Kulwant Godoy MD CC: Saumya Newton MD; Jhon Garcia MD; Kulwant Godoy MD Signed 12 LEAD ELECTROCARDIOGRAM Observed: 07/11/2018 Status: F Source: [place] 3:14 PM [facility] [place] [facility] Cardiovascular Services [address] [place] [address] 12 Lead EKG 07/05/18 0657 MR#: [id number] Acct: [id number] Name: NORRIS STEIN Rep #: [id number] : 1940 77 From: Kulwant Godoy MD Attending Dr: Jhon Garcia MD Status: DIS IN Ordering Dr: Kulwant Godoy MD Date: 07/05/18 Location: [facility] Sex: M C Admitted: 07/02/18 Test Reason [...] block Prolonged QT Abnormal ECG Confirmed by MARCIAL BHANDARI, KULWANT ([id number]), communications editor AUBREY STEIN ([id number]) on 07/11/2018 3:13:42 PM Referred By: RADHA Confirmed By:KULWANT GODOY MD 07/11/18 1513 Date Kulwant Godoy MD CC: Saumya Newton MD; Jhon Garcia MD; Kulwant Godoy MD Signed 12 LEAD ELECTROCARDIOGRAM Observed: 07/11/2018 Status: F Source: [place] 3:14 PM [facility] [place] [facility] Services [address] [facility] [place] [place] [address] 12 Lead EKG 07/05/18 0527 MR#: [id number] Acct: [id number] Name: NORRIS STEIN Rep #: [id number] : 1940 77 From: Kulwant Godoy MD Attending Dr: Jhon Garcia MD Status: DIS IN Ordering Dr: Werner Wall MD Date: 07/05/18 Location: U Sex: M C Admitted: 07/02/18 Test Reason : AM EKG Blood Pressure : / mmHG Vent. Rate : 064 BPM Atrial Rate : 113 BPM P-R Int : 000 ms QRS Dur : 086 ms QT Int : 444 ms P-R-T Axes : 072 058 060 degrees QTc Int : 458 ms Sinus tachycardia with occasional PACs Abnormal ECG Confirmed by MARCIAL BHANDARI, KULWANT ([id number]), communications editor AUBREY STEIN ([id number]) on 07/11/2018 3:14:25 PM Referred By: RADHA Confirmed By:KULWANT GODOY MD 07/11/18 1514 Date Kulwant Godoy MD CC: Werner Wall MD; Saumya Newton MD; Jhon Garcia MD Signed 12 LEAD ELECTROCARDIOGRAM Observed: 07/11/2018 Status: F Source: [place] 3:13 PM [facility] [facility] Cardiovascular Services [address] [place] [address] 12 Lead EKG 07/05/18 0856 MR#: [id number] Acct: [id number] Name: NORRIS STEIN Rep #: [id number] : 1940 77 From: Kulwant Godoy MD Attending Dr: Jhon Garcia MD Status: DIS IN Ordering Dr: Kulwant Godoy MD Date: 07/05/18 Location: [facility] Sex: M C Admitted: 07/02/18 Test Reason [...] complexes Otherwise normal ECG Confirmed by KULWANT GODOY MD ([id number]), communications editor AUBREY STEIN (56) on 07/11/2018 3:13:27 PM Referred By: MARCIAL Confirmed By:KULWANT GODOY MD 07/11/18 1513 Date Kulwant Godoy MD CC: Saumya Newton MD; Jhon Garcia MD; Kulwant Godoy MD Signed 12 LEAD ELECTROCARDIOGRAM Observed: 07/11/2018 Status: F Source: [place] 2:19 PM [facility] [facility] Cardiovascular Services [address] [place] [address] 12 Lead EKG 07/06/18 0542 MR#: [id number] Acct: [id number] Name: NORRIS STEIN Rep #: [id number] : 1940 77 From: Kulwant Godoy MD Attending Dr: Jhon Garcia MD Status: DIS IN Ordering Dr: Werner Wall MD Date: 07/06/18 Location: [facility] Sex: M C Admitted: 07/02/18 Test Reason : AM EKG Blood Pressure : / mmHG Vent. Rate : 054 BPM Atrial Rate : 054 BPM P-R Int : 172 ms QRS Dur : 092 ms QT Int : 480 ms P-R-T Axes : 063 051 054 degrees QTc Int : 455 ms Sinus bradycardia Otherwise normal ECG Confirmed by KULWANT GODOY MD ([id number]), communications editor AUBREY STEIN ([id number]) on 07/11/2018 2:19:24 PM Referred By: DR GARCIA Confirmed By:KULAWNT GODOY MD 07/11/18 1419 Date Kulwant Godoy MD CC: Werner Wall MD; Saumya Newton MD; Jhon Garcia MD Signed 12 LEAD ELECTROCARDIOGRAM Observed: 07/09/2018 Status: F Source: [place] 3:50 PM [facility] REPOSITORY [facility] Cardiovascular Services [address] [place] [address] 12 Lead EKG 07/03/18 0800 MR#: [id number] Acct: [id number] Name: NORRIS STEIN Rep #: [id number] : 1940 77 From: Kulwant Godoy MD Attending Dr: Jhon Garcia MD Status: DIS IN Ordering Dr: Jhon Garcia MD Date: 07/03/18 Location: [facility] Sex: M C Admitted: 07/02/18 Test Reason : RHYTHM CHANGE Blood Pressure : / mmHG Vent. Rate : 134 BPM Atrial Rate : 144 BPM P-R Int : 000 ms QRS Dur : 080 ms QT Int : 350 ms P-R-T Axes : 000 057 077 degrees QTc Int : 522 ms Atrial flutter Abnormal ECG Confirmed by MARCIAL BHANDARI, KULWANT ([id number]), communications editor AUBREY STEIN ([id number]) on 07/09/2018 3:50:03 PM Referred By: RADHA Confirmed By:KULWANT GODOY MD 07/09/18 1550 Date Kulwant Godoy MD CC: Saumya Newton MD; Jhon Garcia MD Signed 12 LEAD ELECTROCARDIOGRAM Observed: 07/09/2018 Status: F Source: [place] 3:49 PM [facility] REPOSITORY [facility] Cardiovascular Services [address] [place] [address] 12 Lead EKG 07/04/18 0611 MR#: [id number] Acct: [id number] Name: NORRIS STEIN Rep #: [id number] : 1940 77 From: Kulwant Godoy MD Attending Dr: Jhon Garcia MD Status: DIS IN Ordering Dr: Werner Wall MD Date: 07/04/18 Location: [facility] Sex: M C Admitted: 07/02/18 Test Reason [...] abnormality Prolonged QT Abnormal ECG Confirmed by MARCIAL BHANDARI, KULWANT ([id number]), communications editor AUBREY STEIN ([id number]) on 07/09/2018 3:48:51 PM Referred By: DR GODOY Confirmed By:KULWANT GODOY MD 07/09/18 1548 Date Kulwant Godoy MD CC: Werner Wall MD; Saumya Newton MD; Jhon Garcia MD Signed PROTHROMBIN TIME W/INR Collected: 07/08/2018 Status: F Source: [place] 10:18 AM [facility] Order Comment: Send Results To: Dr. Godoy Reason for Laboratory Test Coumadin TYPE CODE TESTS RESULT OUT OF RANGE REFERENCE UNITS LAB L300.4150 11.7-14.9 SECONDS High PROTIME 19.1 LAB L300.4200 Normal INR 1.6 Performed By: #### L300.3900 #### [facility] [address] [place], [address] BASIC METABOLIC Collected: 07/08/2018 Status: F Source: [place] PROFILE (BMP) 10:18 AM [facility] [place] Order Comment: Send Results To: Dr. Godoy Reason for Laboratory Test Renal function TYPE [...] GAP 8 Performed By: #### L500.2500 #### [facility] [address] [facility] [place], [address] DISCHARGE SUMMARY Observed: 07/06/2018 Status: F Source: [place] 7:39 PM [facility] [facility] [place] [facility] Medical Records Department [address] [place] [address] Discharge Summary 07/06/181927 MR#: [id number] Acct: [id number] Name: NORRIS STEIN Rep #: [id number] : 1940 77 From: Jhon Garcia MD PCP: Aman BHANDARI,Saumya Status: DIS IN Y Location: [place] [address] Discharge Date and Diagnosis Date of Admission: [...] Notification of Procedure Routine MD Notified:: Kulwant Godoy Procedures: 2-D Echocardiogram - Interpretation Summary Normal [...] he would have had to do a HARLAN and cardioversion. He ultimately did convert on [...] 24 Hours Intake Total 1498.8 / 1498.8 1944 / 1944 325.2 / 325.2 Output Total 350 / 350 Balance 1148.8 / 1148.8 [birth year] 325.2 / 325.2 Laboratory Tests Past [...] 07/08/18, Location: Laboratory Primary Care Physician: Saumya Newton MD [Primary Care Provider] - Please follow [...] Documented LVEF (%): 50 Code Visit Inpatient E AND M: 73420 Disch Hosp 07/06/181938 <Electronically signed by Jhon Garcia MD> Date Jhon Garcia MD Cosigner Signature (if applicable): Date CC: Saumya Newton MD; Jhon Garcia MD Signed DISCHARGE INSTRUCTION Observed: 07/06/2018 Status: F Source: [place] 5:04 PM [facility] [place] [facility] Medical Records Department [address] [place] [address] Instructions for Home/Discharge Instructions 07/06/18 1658 MR#: [id number] Acct: [id number] Name: NORRIS STEIN Rep #: [id number] : 1940 77 From: Jhon Garcia MD PCP: Saumya Newton MD Status: ADM IN - Discharge Diagnoses [...] 07/08/18, Location: Laboratory Primary Care Physician: Saumya Newton MD [Primary Care Provider] - Please follow up with your Primary Care Physician in: In 3- 5 days Test Results: Test results from this visit will be discussed in further detail at your follow-up appointment, if applicable. 07/06/18 1704 <Electronically signed by Jhon Garcia MD> Date Jhon Garcia MD CC: Saumya Newton MD; Kulwant Godoy MD BEDSIDE GLUCOSE Collected: 07/06/2018 Status: F Source: [place] 4:38 PM [facility] [place] [facility] [place] TYPE CODE TESTS RESULT OUT OF REFERENCE UNITS RANGE LAB L501.080 70-110 mg/dL High BEDSIDE GLU 117 Result Comment: MANAGEMENT OF PATIENT CARE PER NURSING PROTOCOL Performed By: #### L501.080 #### [facility] Point of Care [address] [place] [address] PARTIAL THROMBOPLAST Collected: 07/06/2018 Status: F Source: [place] TIME 4:15 PM [facility] [place] [facility] [place] TYPE CODE TESTS RESULT OUT OF RANGE REFERENCE UNITS LAB L300.4310 24.1-36.2 Seconds Normal PTT 29.4 Performed By: #### L300.4310 #### [facility] [address] [place], [address] BEDSIDE GLUCOSE Collected: 07/06/2018 Status: F Source: [place] 11:19 AM [facility] [place] TYPE CODE TESTS RESULT OUT OF REFERENCE UNITS RANGE LAB L501.080 70-110 mg/dL High BEDSIDE GLU 256 Result Comment: MANAGEMENT OF PATIENT CARE PER NURSING PROTOCOL Performed By: #### L501.080 #### [facility] Point of Care [address] [place] [address] PARTIAL THROMBOPLAST Collected: 07/06/2018 Status: F Source: [place] TIME 9:37 AM [facility] [place] [facility] [place] Order Comment: Comments: time sensitive heparin drip TYPE CODE TESTS RESULT OUT OF REFERENCE UNITS RANGE LAB L300.4310 24.1-36.2 Seconds High PTT 86.1 Performed By: #### L300.4310 #### [facility] [address] [place], [place], [address] BEDSIDE GLUCOSE Collected: 07/06/2018 Status: F Source: [place] 6:37 AM [facility] TYPE CODE TESTS RESULT OUT OF REFERENCE UNITS RANGE LAB L501.080 70-110 mg/dL High BEDSIDE GLU 135 Result Comment: MANAGEMENT OF PATIENT CARE PER NURSING PROTOCOL Performed By: #### L501.080 #### [facility] Point of Care [address] [facility] [address] [place], [place] [address] CBC W/DIFF, AUTOMATED Collected: 07/06/2018 Status: F Source: [place] 3:08 AM [facility] [facility] [place] TYPE CODE TESTS RESULT OUT OF [...] Lymph 1.87 Performed By: #### L100.0100 #### [facility] [address] [place], [address] PROTHROMBIN TIME W/INR Collected: 07/06/2018 Status: F Source: [place] 3:08 AM [facility] [facility] [place] Order Comment: Comments: time sensitive heparin drip TYPE CODE TESTS RESULT OUT OF RANGE REFERENCE UNITS LAB L300.4150 11.7-14.9 SECONDS High PROTIME 15.5 LAB L300.4200 Normal INR 1.2 Performed By: #### L300.3900, L300.4310 #### [facility] [address] [place], [place], [address] PARTIAL THROMBOPLAST Collected: 07/06/2018 Status: F Source: [place] TIME 3:08 AM [facility] [facility] [place] Order Comment: Comments: time sensitive heparin drip TYPE CODE TESTS RESULT OUT OF REFERENCE UNITS RANGE LAB L300.4310 24.1-36.2 Seconds High PTT 79.6 Performed By: #### L300.3900, L300.4310 #### [facility] [address] [facility] [place], [address] BASIC METABOLIC Collected: 07/06/2018 Status: F Source: [place] PROFILE (BMP) 3:08 AM [facility] [facility] [place] TYPE CODE TESTS RESULT OUT OF [...] GAP 10 Performed By: #### L500.2500 #### [facility] [address] [place], [address] BEDSIDE GLUCOSE Collected: 07/06/2018 Status: F Source: [place] 2:39 AM [facility] [facility] [place] TYPE CODE TESTS RESULT OUT OF REFERENCE UNITS RANGE LAB L501.080 70-110 mg/dL High BEDSIDE GLU 152 Result Comment: MANAGEMENT OF PATIENT CARE PER NURSING PROTOCOL Performed By: #### L501.080 #### [facility] Point of Care [address] [place] [address] BEDSIDE GLUCOSE Collected: 07/05/2018 Status: F Source: [place] 9:45 PM [facility] [place] [facility] [place] TYPE CODE TESTS RESULT OUT OF REFERENCE UNITS RANGE LAB L501.080 70-110 mg/dL High BEDSIDE GLU 119 Result Comment: MANAGEMENT OF PATIENT CARE PER NURSING PROTOCOL Performed By: #### L501.080 #### [facility] Point of Care [address] [place] [address] PARTIAL THROMBOPLAST Collected: 07/05/2018 Status: F Source: [place] TIME 8:22 PM [facility] [facility] [place] TYPE CODE TESTS RESULT OUT OF REFERENCE UNITS RANGE LAB L300.4310 24.1-36.2 Seconds High alert PTT 97.7 Result Comment: RESULTS CALLED TO JAI U 07/05/18 2120 [facility]. REPORT READ BACK BY SAME . Performed By: #### L300.4310 #### [facility] [address] [place], [address] BEDSIDE GLUCOSE Collected: 07/05/2018 Status: F Source: [place] 5:06 PM [facility] [facility] [place] TYPE CODE TESTS RESULT OUT OF REFERENCE UNITS RANGE LAB L501.080 70-110 mg/dL High BEDSIDE GLU 172 Result Comment: MANAGEMENT OF PATIENT CARE PER NURSING PROTOCOL Performed By: #### L501.080 #### [facility] Point of Care [address] [place] [address] 12 LEAD ELECTROCARDIOGRAM Observed: 07/05/2018 Status: F Source: [place] 2:25 PM [facility] [place] [facility] [place] [facility] Cardiovascular Services [address] [place] [address] 12 Lead EKG 07/02/18 1037 MR#: [id number] Acct: [id number] Name: NORRIS STEIN Rep #: [id number] : 1940 77 From: Fernando Hendrix MD Attending Dr: Jhon Garcia MD Status: ADM IN Ordering Dr: Elroy [...] Nonspecific ST abnormality Abnormal ECG Confirmed by FERNANDO HENDRIX MD ([id number]), communications editor FRANCISCO JAVIER FRAGOSO ([id number]) on 07/05/2018 2:25:02 PM Referred By: GO Confirmed By:FERNANDO HENDRIX MD 07/05/18 1425 Date Fernando Hendrix MD CC: Saumya Newton MD; Jhon Garcia MD; Elroy Zhong DO Signed PARTIAL THROMBOPLAST Collected: 07/05/2018 Status: F Source: [place] TIME 1:45 PM [facility] [facility] [place] TYPE CODE TESTS RESULT OUT OF REFERENCE UNITS RANGE LAB L300.4310 24.1-36.2 Seconds High alert PTT 241.0 Result Comment: CRITICAL VALUE VERIFIED. CALLED TO JOSHUA PARTIDA 07/05/18 1415 Bernardo Szymanski. RESULTS READ BACK BY SAME. Performed By: #### L300.4310 #### [facility] [address] [facility] [address] BEDSIDE GLUCOSE Collected: 07/05/2018 Status: F Source: [place] 11:51 AM [facility] [place] [facility] [place] TYPE CODE TESTS RESULT OUT OF REFERENCE UNITS RANGE LAB L501.080 70-110 mg/dL High BEDSIDE GLU 167 Result Comment: MANAGEMENT OF PATIENT CARE PER NURSING PROTOCOL Performed By: #### L501.080 #### [facility] Point of Care [address] [facility] [facility] [place], [place] [address] BEDSIDE GLUCOSE Collected: 07/05/2018 Status: F Source: [place] 7:10 AM [facility] [place] [facility] [place] TYPE CODE TESTS RESULT OUT OF REFERENCE UNITS RANGE LAB L501.080 70-110 mg/dL High BEDSIDE GLU 156 Result Comment: MANAGEMENT OF PATIENT CARE PER NURSING PROTOCOL Performed By: #### L501.080 #### [facility] Point of Care [address] [facility]. [place], [place] [address] CBC-COMPLETE BLOOD CNT Collected: 07/05/2018 Status: F Source: [place] NO DIFF 4:15 AM [facility] [place] TYPE CODE TESTS RESULT OUT OF [...] MPV 10.4 Performed By: #### L100.0500 #### [facility] [address] [place], [place], [address] PROTHROMBIN TIME W/INR Collected: 07/05/2018 Status: F Source: [place] 4:15 AM [facility] [place] TYPE CODE TESTS RESULT OUT OF RANGE REFERENCE UNITS LAB L300.4150 11.7-14.9 SECONDS Normal PROTIME 14.8 LAB L300.4200 Normal INR 1.2 Performed By: #### L300.3900 #### [facility] [address] [place], [address] BASIC METABOLIC Collected: 07/05/2018 Status: F Source: RAAD PROFILE (BMP) 4:15 AM [facility] [place] CODE TESTS RESULT OUT OF [...] 13 Performed By: #### L500.2500, L500.4100 #### [facility] [address] [facility] [place], [address] LIPID PROFILE Collected: 07/05/2018 Status: F Source: [place] 4:15 AM [facility] [place] TYPE CODE TESTS RESULT OUT OF [...] 19 Performed By: #### L500.2500, L500.4100 #### [facility] [address] [facility] [place], [address] PARTIAL THROMBOPLAST Collected: 07/05/2018 Status: F Source: [place] TIME 4:15 AM [facility] [place] TYPE CODE TESTS RESULT OUT OF RANGE REFERENCE UNITS LAB L300.4310 24.1-36.2 Seconds Normal PTT 24.1 Performed By: #### L300.4310 #### [facility] [address] [place], [place], [address] BEDSIDE GLUCOSE Collected: 07/05/2018 Status: F Source: RA[place] 2:52 AM [facility] [place] CODE TESTS RESULT OUT OF REFERENCE UNITS RANGE LAB L501.080 70-110 mg/dL High BEDSIDE GLU 184 Result Comment: MANAGEMENT OF PATIENT CARE PER NURSING PROTOCOL Performed By: #### L501.080 #### [facility] Point of Care [address] [place] [address] BEDSIDE GLUCOSE Collected: 07/04/2018 Status: F Source: [place] 9:36 PM [facility] [place] TYPE CODE TESTS RESULT OUT OF REFERENCE UNITS RANGE LAB L501.080 70-110 mg/dL High BEDSIDE GLU 142 Result Comment: MANAGEMENT OF PATIENT CARE PER NURSING PROTOCOL Performed By: #### L501.080 #### [facility] Point of Care [address] [place] [address] BEDSIDE GLUCOSE Collected: 07/04/2018 Status: F Source: RAAD 4:42 PM [facility] [place] TYPE CODE TESTS RESULT OUT OF REFERENCE UNITS RANGE LAB L501.080 70-110 mg/dL High BEDSIDE GLU 329 Result Comment: MANAGEMENT OF PATIENT CARE PER NURSING PROTOCOL Performed By: #### L501.080 #### [facility] Point of Care [address] [place] [address] BEDSIDE GLUCOSE Collected: 07/04/2018 Status: F Source: [place] 12:10 PM [facility] [place] TYPE CODE TESTS RESULT OUT OF REFERENCE UNITS RANGE LAB L501.080 70-110 mg/dL High BEDSIDE GLU 190 Result Comment: MANAGEMENT OF PATIENT CARE PER NURSING PROTOCOL Performed By: #### L501.080 #### [facility] Point of Care [address] [place] [address] ACT ACTIVATED CLOTTING Collected: 07/04/2018 Status: F Source: [place] TIME 8:42 AM [facility] [place] TYPE CODE TESTS RESULT OUT OF RANGE REFERENCE UNITS LAB L9100.0100 74-137 sec High ACTk CLOT 235 TIME Performed By: #### L9100.0100 #### [facility] Point of Care [address] [place] [address] BEDSIDE GLUCOSE Collected: 07/04/2018 Status: F Source: [place] 6:51 AM [facility] [place] TYPE CODE TESTS RESULT OUT OF REFERENCE UNITS RANGE LAB L501.080 70-110 mg/dL High BEDSIDE GLU 209 Result Comment: MANAGEMENT OF PATIENT CARE PER NURSING PROTOCOL Performed By: #### L501.080 #### [facility] Point of Care [address] [place] [address] BASIC METABOLIC Collected: 07/04/2018 Status: F Source: [place] PROFILE (BMP) 5:00 AM [facility] [place] TYPE CODE TESTS RESULT OUT OF [...] GAP 9 Performed By: #### L500.2500 #### [facility] [address] [place], [place], [address] CBC W/DIFF, AUTOMATED Collected: 07/04/2018 Status: F Source: [place] 5:00 AM [facility] [place] TYPE CODE TESTS RESULT OUT OF [...] Lymph 0.80 Performed By: #### L100.0100 #### [facility] [address], [address] PROTHROMBIN TIME W/INR Collected: 07/04/2018 Status: F Source: [place] 5:00 AM [facility] [place] TYPE CODE TESTS RESULT OUT OF RANGE REFERENCE UNITS LAB L300.4150 11.7-14.9 SECONDS Normal PROTIME 13.6 LAB L300.4200 Normal INR 1.0 Performed By: #### L300.3900, L300.4310 #### [facility] [address] [place], [address] PARTIAL THROMBOPLAST Collected: 07/04/2018 Status: F Source: [place] TIME 5:00 AM [facility] [place] TYPE CODE TESTS RESULT OUT OF RANGE REFERENCE UNITS LAB L300.4310 24.1-36.2 Seconds Normal PTT 28.3 Performed By: #### L300.3900, L300.4310 #### [facility] [address] [place], [address] CHEST 1 VIEW Observed: 07/04/2018 Status: F Source: [place] (PORTABLE) 1:36 AM [facility] [place] [facility] Imaging Services [address] [place] [address] Chest 1 View (Portable) MR#: [id number] Acct: [id number] Name: NORRIS STEIN Rep #: [id number] : 1940 M 77 From: Bernardo Juarez MD PCP: Saumya Newton MD Status: ADM IN Study: Chest 1 View (Portable) Date of Exam: 07/04/18 Exam# [id number] Ordering Dr: Jonnathan Watson MD HISTORY: SOBShort [...] support , CC: Jonnathan Watson MD; Saumya Newton MD Visual Display Manager: Signed URINALYSIS, ROUTINE Collected: 07/03/2018 Status: F Source: RAAD (DIPSTICK) 11:45 PM [facility] [place] Order Comment: Order Date: 07/03/18 How [...] ESTERASE Negative Performed By: #### L400.2010 #### [facility] [address] [place], [address] BEDSIDE GLUCOSE Collected: 07/03/2018 Status: F Source: [place] 9:29 PM [facility] [place] TYPE CODE TESTS RESULT OUT OF REFERENCE UNITS RANGE LAB L501.080 70-110 mg/dL High BEDSIDE GLU 153 Result Comment: MANAGEMENT OF PATIENT CARE PER NURSING PROTOCOL Performed By: #### L501.080 #### [facility] Point of Care [address] [place] [address] CONSULTATION Observed: 07/03/2018 Status: F Source: RA[place] 7:33 PM [facility] [place] [facility] Medical Records Department [address] [place] [address] Consultation 07/03/18 1917 MR#: [id number] Acct: [id number] Name: NORRIS STEIN Rep #: [id number] : 1940 77 From: Kulwant Godoy MD PCP: Saumya Newton MD Status: ADM IN Y Location: [place] [address] Problem List (1) Atrial fibrillation and flutter [...] atrial fibrillation and subsequently referred to the [facility] for further evaluation care. Based upon review [...] % (Auto) 61.5, Lymph % (Auto) 27.9, Fountain % (Auto) 6.8, Eos % (Auto) 3.4, [...] the patient's findings may need to be HARLAN guided. 2. Cardiomyopathy The patient does have [...] sinus rhythm which again may require a HARLAN guided synchronized biphasic DC cardioversion. The above [...] to saving. 07/03/181932 <Electronically signed by Kulwant Godoy MD> Date Kulwant Godoy MD Cosigner Signature (if applicable): Date CC: Saumya Newton MD; Kulwant Godoy MD Signed BEDSIDE GLUCOSE Collected: 07/03/2018 Status: F Source: [place] 4:12 PM [facility] [place] TYPE CODE TESTS RESULT OUT OF REFERENCE UNITS RANGE LAB L501.080 70-110 mg/dL High BEDSIDE GLU 116 Result Comment: MANAGEMENT OF PATIENT CARE PER NURSING PROTOCOL Performed By: #### L501.080 #### [facility] Point of Care [address] [place] [address] ECHOCARDIOGRAM COMPLETE Observed: 07/03/2018 Status: F Source: [place] 1:04 PM [facility] [place] [facility] Cardiovascular Services [address] [place] [address] Echo Complete W/ Contrast 07/03/18 1031 MR#: [id number] Acct: [id number] Name: NORRIS STEIN Rep #: [id number] : 1940 77 From: Werner Wall MD Attending Dr: Jhon Garcia MD Status: ADM IN Ordering Dr: Jhon Garcia MD Date: 07/02/18 Location: [facility] Sex: M C Admitted: 07/02/18 Reason For [...] Contrast injection was performed. Ordering Physician: Jhon Garcia Referring Physician: Saumya Newton Performed By: Trena Bueno, DOROTHY, RVT 07/03/18 1304 Date Werner Wall MD CC: Saumya Newton MD; Jhon Garcia MD Date Dictated: 07/03/18 1031 Date Transcribed: 07/03/18 1304 Visual Display Manager: Signed BEDSIDE GLUCOSE Collected: 07/03/2018 Status: F Source: [place] 12:28 PM [facility] [place] TYPE CODE TESTS RESULT OUT OF REFERENCE UNITS RANGE LAB L501.080 70-110 mg/dL High BEDSIDE GLU 154 Result Comment: MANAGEMENT OF PATIENT CARE PER NURSING PROTOCOL Performed By: #### L501.080 #### [facility] Point of Care [address] [place], [place] [address] BEDSIDE GLUCOSE Collected: 07/03/2018 Status: F Source: [place] 6:39 AM [facility] [place] TYPE CODE TESTS RESULT OUT OF REFERENCE UNITS RANGE LAB L501.080 70-110 mg/dL High BEDSIDE GLU 112 Result Comment: MANAGEMENT OF PATIENT CARE PER NURSING PROTOCOL Performed By: #### L501.080 #### [facility] Point of Care [address] [place] [address] BASIC METABOLIC Collected: 07/03/2018 Status: F Source: RAAD PROFILE (BMP) 5:08 AM [facility] [place] TYPE CODE TESTS RESULT OUT OF [...] GAP 5 Performed By: #### L500.2500 #### [facility] [place] [address], [address] CBC W/DIFF, AUTOMATED Collected: 07/03/2018 Status: F Source: [place] 5:08 AM [facility] [place] TYPE CODE TESTS RESULT OUT OF [...] Lymph 1.89 Performed By: #### L100.0100 #### [facility] [address] [place], [address] BEDSIDE GLUCOSE Collected: 07/02/2018 Status: F Source: [place] 9:46 PM [facility] [place] TYPE CODE TESTS RESULT OUT OF REFERENCE UNITS RANGE LAB L501.080 70-110 mg/dL High BEDSIDE GLU 121 Result Comment: MANAGEMENT OF PATIENT CARE PER NURSING PROTOCOL Performed By: #### L501.080 #### [facility] Point of Care [address] [place] [address] HISTORY AND PHYSICAL Observed: 07/02/2018 Status: F Source: [place] EXAM 5:19 PM [facility] [place] [facility] Medical Records Department [address] [place] [address] History and Physical 07/02/18 1654 MR#: [id number] Acct: [id number] Name: NORRIS STEIN Rep #: [id number] : 1940 77 From: Jhon Garcia MD PCP: Aman BHANDARI,Saumya Status: ADM IN Location: [place] [address]1 ADDENDUM by Jhon Garcia MD on 07/02/18 at 1719 Code Visit Hold his HCTZ and AMBER because of his creatinine 07/02/181718 <Electronically signed by Jhon Garcia MD> Date Jhon Garcia MD cc: Saumya Newton MD; Jhon Garcia MD * Signed Problem List (1) HTN [...] Cardiac Code Visit Inpatient E AND M: 83131 Init Hosp L3 07/02/18 1717 <Electronically signed by Jhon Garcia MD> Date Jhon Garcia MD Cosigner Signature: Date (if applicable) CC: Saumya Newton MD; Jhon Garcia MD Signed CBC W/DIFF, AUTOMATED Collected: 07/02/2018 Status: F Source: [place] 2:05 PM [facility] [place] TYPE CODE TESTS RESULT OUT OF [...] Lymph 1.65 Performed By: #### L100.0100 #### [facility] [address] [facility] [place], [address] EMERGENCY DEPARTMENT Observed: 07/02/2018 Status: F Source: [place] SUMMARY 12:31 PM [facility] [place] [facility] Medical Records Department [address] [place] [address] Emergency Department Summary 07/02/18 1228 MR#: [id number] Acct: [id number] Name: NORRIS STEIN Rep #: [id number] : 1940 77 From: Elroy Zhong DO PCP: Aman BHANDARISaumya Status: REG ER - ER Visit Summary [...] new onset] This note was generated with Baland[employer] dictation software. It may contain incorrect words, spelling, and punctuation that were not noted in review of the chart prior to signing ED Disposition - Plan for ED Patient: Chief Complaint: Shortness of Breath Referrals: Saumya Newton MD [Primary Care Provider] - What to do if you have Problems For any increased pain, shortness of breath, bleeding, nausea or vomiting, chest pain, or any unexpected problems, contact your Primary Care Provider. Call [facility] ([phone]) or report to the closest Emergency Room. Call 911 if necessary. 07/02/18 1231 <Electronically signed by Elroy Zhong DO> Date Elroy Zhong DO Cosigner Signature (If Indicated): Date CC: Saumya Newton MD CHEST 1 VIEW Observed: 07/02/2018 Status: F Source: RAAD (PORTABLE) 10:48 AM [facility] REPOSITORY [facility] Imaging Services [address] [place] [address] Chest 1 View (Portable) MR#: [id number] Acct: [id number] Name: NORRIS STEIN Rep #: [id number] : 1940 M 77 From: Antonio Corrigan MD PCP: Saumya Newton MD Status: REG ER Study: Chest 1 View (Portable) Date of Exam: 07/02/18 Exam# [id number] Ordering Dr: Elroy Zhong DO STUDY: X-RAY [...] Tel , Service support , CC: Saumya Newton MD; Elroy Zhong DO Visual Display Manager: Signed CBC W/DIFF, AUTOMATED Collected: 07/02/2018 Status: F Source: [place] 10:40 AM [facility] [place] TYPE CODE TESTS RESULT OUT OF [...] Lymph 1.23 Performed By: #### L100.0100 #### [facility] [address] [place], [place], [address] BASIC METABOLIC Collected: 07/02/2018 Status: F Source: [place] PROFILE ([facility]) 10:40 AM [facility] [place] TYPE CODE TESTS RESULT OUT OF [...] GAP Performed By: #### L500.2500, L501.4010 #### [facility] [address] [facility] [place], [place], [address] TROPONIN-I Collected: 07/02/2018 Status: F Source: [place] 10:40 AM [facility] [place] TYPE CODE TESTS RESULT OUT OF RANGE REFERENCE UNITS LAB L501.4010 <0.045 ng/mL Normal < 0.015 TROPONIN-I Result Comment: TROPONIN-I EXPECTED VALUES <0.045 Negative 0.045 - 0.590 Consistent with Cardiac Damage > OR = 0.600 Critical Value Not every elevated troponin is indicative of MT. These values should be used with clinical judgement in examining the patient's clinical picture for diagnosis. To establish a diagnosis of MT versus myocardial injury, there must be a demonstrated rise and/or fall in the troponin values, in addition to ischemic symptoms, EKG changes, new regional wall motion abnormality, and/or angiographical evidence. PLEASE NOTE: REFERENCE RANGES EDITED 17 Performed By: #### L500.2500, L501.4010 #### [facility] [address] [place], [address] PROTHROMBIN TIME W/INR Collected: 07/02/2018 Status: F Source: [place] 10:40 AM [facility] [place] TYPE CODE TESTS RESULT OUT OF RANGE REFERENCE UNITS LAB L300.4150 11.7-14.9 SECONDS Normal PROTIME 13.9 LAB L300.4200 Normal INR 1.1 Performed By: #### L300.3900, L300.4310 #### [facility] [address] [place], [address] PARTIAL THROMBOPLAST Collected: 07/02/2018 Status: F Source: [place] TIME 10:40 AM [facility] [place] TYPE CODE TESTS RESULT OUT OF RANGE REFERENCE UNITS LAB L300.4310 24.1-36.2 Seconds Normal PTT 28.6 Performed By: #### L300.3900, L300.4310 #### [facility] [address] [place], [address] BNP,B-TYPE NATRIURETIC Collected: 07/02/2018 Status: F Source: RAAD PEPTIDE 10:40 AM [facility] [place] TYPE CODE TESTS RESULT OUT OF RANGE REFERENCE UNITS LAB L503.6620 0-100 pg/mL High B-TYPE 125.0 ELÍAS PEP Performed By: #### L503.6620 #### [facility] [address] [place], [address] THYROID STIM HORMONE Collected: 07/02/2018 Status: F Source: RAAD (TSH) 10:40 AM [facility] [place] TYPE CODE TESTS RESULT OUT OF RANGE REFERENCE UNITS LAB L501.9520 0.358-3.74 uIU/mL High TSH 5.16 Performed By: #### L501.9520 #### [facility] [address] [place], [address] ECG COMPLETE W Observed: 07/02/2018 Status: F Source: [place] INTERPRETATION 10:00 AM [facility] REPOSITORY NAME : NORRIS STIEN PID : [id number] : 1940 Gender : Male Race : ORD : [id number] Procedure Date : Jul 02 2018 10:00:23 Edit Date : Jul 03 2018 16:36:48 Diagnosis:ATRIAL FLUTTER WITH VARIABLE A-V BLOCK ST ELEVATION CONSIDER INFERIOR INJURY OR ACUTE INFARCT ACUTE MT / STEMI ABNORMAL ECG Confirmed by SANFORD MADRIGAL D.O. ([id number]) on 07/03/2018 4:36:20 PM Ventricular Rate : 133 BPM Atrial Rate : 293 BPM QRS Duration : 90 ms Q-T Interval : 356 ms QTC Calculation(Bezet) : 529 ms R Hague : 66 degrees T Hague : 76 degrees Test Reason : Location : 185 : [facility] Overread By : SANFORD MADRIGAL D.O. Edited By : SANFORD MADRIGAL D.O. Referred By : ANAM STRICKLAND Acquired by : BOBBY CEDILLO Observed: 07/02/2018 Status: COMPLETED Source: [place] 9:29 AM [facility] [place] RE[place] HNO ID: [id number] Author: Anam (Assistant Editor) Em Service: (none) Author Type: Nurse Practitioner [...] patient. Squad was called, report called to [place] [facility]. Patient transported in stable condition. Anam Strickland APRN.CNP CNOV Observed: 07/02/2018 Status: COMPLETED Source: [place] 9:20 AM [facility] REPOSITORY Office Visit (FAMPWS) NORRIS STEIN ([id number]) 1940 M Date Time Provider Department 07/02/18 9:20 AM [facility] During your visit today, we recorded the following information about you: Temperature Pulse Blood pressure Weight 98.1 degrees 146/minute 139/103 110.7 kg Anam Strickland APRN.CNP 07/02/2018 10:21 AM Signed Chief Complaint Patient [...] Laterality Date - COLONOSCOP W/ OR W/O [facility] SPEC 04/08/15 Colonoscopy Family History No family [...] patient. Squad was called, report called to [place] [facility]. Patient transported in stable condition. Anam Strickland APRN.[place] Referring Provider: SELF [200] Allergies As of Date: 07/02/2018 (No Known Allergies) Date Reviewed: 07/02/2018 Reviewed by: Analisa Cedillo Sifting Operator - Fully Assessed Reason for Visit: Breathing Problem [17] Primary Visit Diagnosis:Orthopnea [R06.01] Other Visit Diagnoses:LOCKWOOD (dyspnea on exertion) [R06.09] Leg swelling [M79.89] Order(s):ECG COMPLETE W INTERPRETATION [ECG01] Order #: [id number] FUTURE Prescriptions as of 07/02/2018 Sig: CODEINE [...] on 07/02/18 Observed: 05/01/2018 Status: F Source: [place] URINE CULTURE 8:41 AM [facility] REPOSITORY Sp. 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 No further workup. --> ABNORMAL ALERT 50,000 - <100,000 CFU/ml --> ABNORMAL ALERT Lactose negative gram negative bacilli --> ABNORMAL ALERT Insignificant colony count. No further workup. --> ABNORMAL ALERT Performed By: #### URCUL #### [facility] [address] [place], [place] [address] PROGRESS Observed: 05/01/2018 Status: COMPLETED Source: [place] 8:25 AM [facility] REPOSITORY HNO ID: [id number] Author: Anam (Austen) Em Service: (none) Author [...] No fevers or chills. Is taking an znqc-ica-krwdusg Cystek from a local pharmacy. Does have a prior history of UTIs. Past medical history, appointments, medications, allergies reviewed. Previous Medical History PAST MEDICAL HISTORY Diagnosis Date - DM (diabetes mellitus) (HCC) - Essential hypertension, benign - Other and unspecified hyperlipidemia - Other specified family circumstances Previous Surgical History PAST SURGICAL HISTORY Procedure Laterality Date - COLONOSCOP W/ OR W/O [facility] SPEC 04/08/15 Colonoscopy Family History No family [...] Neg neg Ketones, Urine Neg neg Specific [place], Ur 1.005 - 1.030 1.010 Hemoglobin/Blood,Ur Neg [...] MG TABLET follow-up as needed. Anam Strickland APRN.BRAZING MACHINE FEEDER CNOV Observed: 05/01/2018 Status: COMPLETED Source: [place] 8:20 AM [facility] REPOSITORY Office Visit (FAMPWS) NORRIS STEIN ([id number]) 1940 M Date Time Provider Department 05/01/18 8:20 AM ANAM STRICKLAND ([facility]) FAMPWS During your visit today, we [...] No fevers or chills. Is taking an zzuc-rhk-cfxmtdx Cystek from a local pharmacy. Does have a prior history of UTIs. Past medical history, appointments, medications, allergies reviewed. Previous Medical History PAST MEDICAL HISTORY Diagnosis Date - DM (diabetes mellitus) (HCC) - Essential hypertension, benign - Other and unspecified hyperlipidemia - Other specified family circumstances Previous Surgical History PAST SURGICAL HISTORY Procedure Laterality Date - COLONOSCOP W/ OR W/O [facility] SPEC 04/08/15 Colonoscopy Family History No family [...] Neg neg Ketones, Urine Neg neg Specific [place], Ur 1.005 - 1.030 1.010 Hemoglobin/Blood,Ur Neg [...] MG TABLET follow-up as needed. Anam Strickland APRN.BRAZING MACHINE FEEDER Referring Provider: SELF [200] Allergies As of Date: 05/01/2018 (No Known Allergies) Date Reviewed: 02/05/2018 Reviewed by: Lamar Rivero Ma - Fully Assessed Reason for Visit: UTI [116] Cmt: x 4 days - burning with urination - taking cystek - no back pain Primary Visit Diagnosis:Dysuria [R30.0] Order(s):UA DIP B/O [0421179] Order #: [id number] URINE CULTURE [SQURCUL] Order #: [id number] sulfamethoxazole-trimethoprim (BACTRIM DS) 800-160 mg per tabletTake [...] Status:Closed by ANAM STRICKLAND CNP on 05/01/18 CNCJim Observed: 02/11/2018 Status: COMPLETED Source: [place] 12:00 AM [facility] [place] REPOSITORY Letter Text [place] [facility] [address] [place] [phone] Norris Stein [address] [facility] [address] Clinic #: [id number] 02/11/2018 Below is a message concerning your lab results. If you should have any questions please feel free to contact the office at : Please inform patient that his Hgb A1c improved to 6.7%. Cholesterol panel looks good. Kidney function is stable. Continue on current dose of medications, follow up in 6 months with labs prior. ? Anam Strickland APRN.BRAZING MACHINE FEEDER Thank you Sincerely Your [facility] health Team CNOV Observed: 02/05/2018 Status: COMPLETED Source: [place] 9:40 AM [facility] REPOSITORY Office Visit (FAMPWS) NORRIS STEIN ([id number]) 1940 M Date Time Provider Department 02/05/18 9:40 AM [facility] During your visit today, we recorded the following information about you: Pulse Respiration Blood pressure Weight 68/minute 18/minute 128/70 104.3 kg Saumya Newton MD 02/05/2018 10:31 AM Signed Chief Complaint [...] Laterality Date - COLONOSCOP W/ OR W/O [facility] SPEC 04/08/15 Colonoscopy Family History No family [...] up in 6 months with labs Saumya Newton MD The documentation for this note was completed by Lamar Rivero Ma acting as scribe for Saumya Newton MD. February 05, 2018 9:34 AM. Referring Provider: SAUMYA NEWTON [[id number]] Allergies As of Date: 02/05/2018 (No Known Allergies) Date Reviewed: 02/05/2018 Reviewed by: Lamar Rivero Ma - Fully Assessed Reason for Visit: [...] 11 COMP METABOLIC PANEL [SQCMP] Order #: [id number] FUTURE LIPID PANEL BASIC [SQLIPB] Order #: [id number] FUTURE HGB A1C [[id number]] Order #: [id number] FUTURE Prescriptions as of 02/05/2018 Sig: CODEINE [...] Disposition History Recorded Encounter Status:Closed by SAUMYA NEWTON MD on 02/05/18 PROGRESS Observed: 02/05/2018 Status: COMPLETED Source: [place] 9:34 AM [facility] REPOSITORY O ID: [id number] Author: Saumya Newton Service: (none) Author Type: Physician Type: Progress [...] Laterality Date - COLONOSCOP W/ OR W/O [facility] SPEC 04/08/15 Colonoscopy Family History No family [...] up in 6 months with labs Saumya Newton MD The documentation for this note was completed by Lamar Rivero Ma acting as scribe for Saumya Newton MD. February 05, 2018 9:34 AM. COMP METABOLIC PANEL Collected: 02/05/2018 Status: F Source: [place] 8:47 AM [facility] REPOSITORY TYPE CODE TESTS RESULT OUT OF REFERENCE UNITS RANGE LAB TP 6.3-8.0 g/dL Low Protein, Total 6.1 LAB ALB 3.9-4.9 g/dL Albumin 4.3 LAB CA 8.5-10.2 mg/dL Calcium, Total 9.4 LAB TBIL 0.2-1.3 mg/dL Bilirubin, Total 0.4 LAB ALKP 36-108 U/L Alkaline Phosphatase 60 LAB AST 14-40 U/L AST 22 LAB GLU 74-99 mg/dL Glucose High 126 Result Comment: The [place] Diabetes [employer] (ADA) provides guidance for cutoff [...] Standards of Medical Care in Diabetes 2016, [place] [employer]. Diabetes Care. 2016.39(Suppl 1). LAB [...] Performed By: #### CMP, LIPB, HBA1C #### [facility] [address] [place], [place] [address] LIPID PANEL, BASIC Collected: 02/05/2018 Status: F Source: [place] 8:47 AM [facility] [place] REPOSITORY TYPE CODE TESTS RESULT OUT OF [...] Desk Reference: National Heart, Lung, and Blood [place]. National Institutes of Health. 2001: NIH Publication No. 01-3305. 2. An International Atherosclerosis Society position paper: global recommendations for the management of dyslipidemia: executive summary, Atherosclerosis. 2014: 232(2):410-413. Performed By: #### CMP, LIPB, HBA1C #### [facility] [employer] [address] [place], [place] [address] HEMOGLOBIN A1C Collected: 02/05/2018 Status: F Source: [place] 8:47 AM [facility] REPOSITORY TYPE CODE TESTS RESULT OUT OF REFERENCE UNITS RANGE LAB HGBA1C 4.3-5.6 % High Hemoglobin A1c 6.7 LAB HBA0 mg/dL Est. Average Glucose 146 Result Comment: eAG: (Estimated average glucose) is a calculated value from HgbA1c and is field service representative of the average blood glucose level in the last 2-3 month period. Performed By: #### CMP, LIPB, HBA1C #### [facility] [employer] [address] [place], [place] [address] CNOV Observed: 11/09/2017 Status: COMPLETED Source: [place] 3:00 PM [facility] REPOSITORY Office Visit (FAMPWS) NORRIS STEIN ([id number]) 1940 M Date Time Provider Department 11/09/17 3:00 PM ANAM STRICKLAND ([facility]) FAMPWS During your visit today, we recorded the following information about you: Temperature Pulse Respiration Blood pressure 98.8 degrees 80/minute 20/minute 130/72 Weight 104.8 kg Anam Strickland APRN.CNP 11/09/2017 3:23 PM Signed Chief Complaint Patient [...] Laterality Date - COLONOSCOP W/ OR W/O [facility] SPEC 04/08/15 Colonoscopy Family History No family [...] occurs. Follow up as needed. Anam Strickland APRN.BRAZING MACHINE FEEDER Referring Provider: SELF [[id number]] Allergies As of Date: 11/09/2017 (No Known Allergies) Date Reviewed: 11/09/2017 Reviewed by: Analisa Cedillo Sifting Operator - Fully Assessed Reason for Visit: Rash [...] 11/09/17 PROGRESS Observed: 11/09/2017 Status: COMPLETED Source: [place] 2:55 PM [facility] [place] REPOSITORY O ID: [id number] Author: Anam Strickland Service: (none) Author Type: [...] Laterality Date - COLONOSCOP W/ OR W/O [facility] SPEC 04/08/15 Colonoscopy Family History No family [...] pain occurs. Follow up as needed. Anam Strickland, GOLD NIB GRINDER.BRAZING MACHINE FEEDER ALLERGIES ALLERGIES DATE TYPE / CODE NAME / CODE REACTION SEVERITY SOURCE 07/29/2018 Drug No Known Unknown [facility] Allergy/416 Allergies/I29148 [facility] 346109(SNOM 0388(RXNORM) Repository ED CT) Drug NO KNOWN [facility] Class/32966 ALLERGIES [address] [place] 1003(SNOMED Repository CT) ENCOUNTERS ENCOUNTERS ADMIT/DISCHARGE ACCOUNT ADMITTING ENCOUNTER LOCATION SOURCE NUMBER CLASS 08/23/2018/08/26/19 [id number] Ambulatory [address] Repository 08/23/2018 [id number] Ambulatory [facility] ing:LAB Repository 08/16/2018 [id number] Ambulatory [facility] ing:LAB Repository 08/15/2018/08/16/19 [id number] Ambulatory [address] Repository 08/15/[id number] [facility] ing:LAB Repository 08/15/2018/08/15/19 [id number] Ambulatory BMSBuilding:B Raad 19 MS.[facility] Repository 08/14/2018 [id number] Ambulatory [facility] Hospital[facility] Hospital ing:CR Repository 08/14/2018 [id number] Ambulatory BMSBuilding:W Raad [facility] Repository 08/13/2018 [id number] Ambulatory [facility] HospitalBuild Hospital ing:PSN Repository 08/12/2018 [id number] Ambulatory [facility] Hospital ing:CT Repository 08/12/2018/08/14/19 [id number] Ambulatory [address] Repository 08/09/2018/08/12/19 [id number] Ambulatory [address] Repository 08/09/2018 [id number] Ambulatory [facility] HospitalBuild Hospital ing:LAB Repository 08/09/2018/08/12/19 [id number] Ambulatory [address] Repository 07/31/2018/08/02/20 [id number] Ambulatory [address] Repository 07/29/2018/07/29/20 [id number] Ambulatory BMSBuilding:B [place] 18 [place].[facility] Repository 07/29/2018 [id number] Ambulatory BMSBuilding:B Raad [place].[facility] Repository 07/25/2018/07/25/20 [id number] Ambulatory [address] Repository 07/25/2018/07/25/20 [id number] Ambulatory [address] Repository 07/25/2018/07/26/20 [id number] Ambulatory [address] Repository 07/22/2018 [id number] Ambulatory [facility] HospitalBuild Hospital ing:LABSPEC Repository 07/22/2018/07/22/20 [id number] Ambulatory [address] Repository 07/18/2018 [id number] Ambulatory [facility] HospitalBuild Hospital ing:CR Repository 07/18/2018/07/18/20 [id number] Ambulatory [address] HospitalBuild Hospital ing:LAB Repository 07/16/2018/07/17/20 [id number] Ambulatory [address] Repository 07/03/2018/07/03/20 [id number] Ambulatory [address] Repository 07/02/2018/07/06/20 [id number] Radha, Inpatient Raad Farfan [facility] Hospital ing:PCURoom: Repository [id number]: 1 07/02/2018 [id number] Zacharytsonis, Ambulatory BMSBuilding:Antoinette Farfan [facility] Repository 07/02/2018 [id number] Kotsonis, Ambulatory BMSBuilding:Antoinette Farfan [facility] Repository 07/02/2018 [id number] Kotsonis, Ambulatory BMSBuilding:Antoinette Farfan MS.CF.[facility] Repository 07/02/2018 [id number] Kotsonis, Ambulatory BMSBuilding:Antoinette Farfan [place].[facility] Repository 07/02/2018 [id number] Zacharytsonis, Ambulatory BMSBuilding:Antoinette Farfan MS.CF.[facility] Repository 07/02/2018 [id number] Kotsonis, Ambulatory BMSBuilding:Antoinette Farfan [place].[facility] Repository 07/02/2018 [id number] Kotsonis, Ambulatory BMSBuilding:Antoinette Farfan MS.CF.[facility] Repository 07/02/2018 [id number] Kotsonis, Ambulatory BMSBuilding:Antoinette Farfan [place].[facility] Repository 07/02/2018 [id number] Kotsonis, Ambulatory BMSBuilding:Antoinette Farfan MS.CF.[facility] Repository 07/02/2018/07/03/20 [id number] Ambulatory [address] Repository 05/01/2018/05/02/20 [id number] Ambulatory [address] Repository 02/05/2018/02/08/20 [id number] Ambulatory [address] Repository 02/05/2018/02/06/20 [id number] Ambulatory [address] Repository 11/09/2017/11/13/[id number] Repository PAYERS PAYERS ENCOUNTER GUARANTOR PAYER SUBSCRIBER SOURCE 08/23/2018 NORRIS Giraldo Primary NORRIS Shankar [id number] Insurance:BUDDHIST MILLERDOB: Formerly [facility] [id number]: Repository [id number]: 330 [id number] [phone] () Date: [address] [address]UE: 08/23/2018 Secondary NOT GIVENUNK [place] Insurance:SELF PAY [facility] Number: Effective Repository Date:2018-08-23 08/16/2018 NORRIS Giraldo Primary NORRIS Shankar [id number] Insurance:BUDDHIST MILLERDOB: Formerly [facility] [id number]: Repository [id number]: 330 [id number] [phone] (HP) Date: [address] [address]BR: 08/16/2018 Secondary NOT GIVENUNK [place] Insurance:SELF PAY [facility] Number: Effective Repository Date:2018-08-16 08/15/2018 NORRIS Giraldo Primary NORRIS Shankar [id number] Insurance:BUDDHIST MILLERDOB: Formerly [facility] [id number], [place]: Repository [id number]: 330 [id number] [phone] () Date: [address] [address]DD: 08/15/2018 Secondary NOT GIVENUNK [place] Insurance:SELF PAY [facility] Number: Effective Repository Date:2018-08-15 08/15/2018 NORRIS Giraldo Primary NORRIS Shankar [id number] Insurance:BUDDHIST MILLERDOB: Formerly [facility] [id number], [place] Number: Repository [id number]: 330 [id number] [phone] (HP) Date: [facility] [address] [place] [address]3598ZL: 08/15/2018 Secondary NOT GIVENUNK Raad Insurance:SELF PAY [facility] Number: Effective Repository Date:2018-08-14 08/14/2018 NORRIS J Primary NORRIS J [place] [id number] Insurance:BUDDHIST MILLERDOB: Formerly [facility] [id number], [place]: Repository [id number]: 330 [id number] [phone] (HP) Date: [address] [address]AN: 08/14/2018 Secondary NOT GIVENUNK [place] Insurance:SELF PAY [facility] Number: Effective Repository Date:2018-07-18 08/14/2018 NORRIS J Primary NORRIS J Raad [id number] Insurance:BUDDHIST MILLERDOB: Formerly [facility] [id number], [place]: Repository [id number]: 330 [id number] [phone] (HP) Date: [address] [address]VQ: 08/14/2018 Secondary NOT GIVENUNK [place] Insurance:SELF PAY [facility] Number: Effective Repository Date:2018-08-14 08/13/2018 NORRIS J Primary NORRIS J [place] [id number] Insurance:BUDDHIST MILLERDOB: Formerly [facility] [id number], [place]icy Number: Repository [id number]: 330 [id number] [phone] (HP) Date: [address] [address]SS: 08/13/2018 Secondary NOT GIVENUNK Raad Insurance:SELF PAY [facility] Number: Effective Repository Date:2018-08-12 08/12/2018 NORRIS Giraldo Primary NORRIS J Raad [id number] Insurance:BUDDHIST MILLERDOB: Formerly [facility] [id number], [place]: Repository [id number]: 330 [id number] [phone] (HP) Date: [address] [address]CO: 08/12/2018 Secondary NOT GIVENUNK [place] Insurance:SELF PAY [facility] Number: Effective Repository Date:2018-08-12 08/09/2018 NORRIS Giraldo Primary NORRIS Giraldo Raad [id number] Insurance:BUDDHIST MILLERDOB: Formerly [facility] [id number], [place]: Repository [id number]: 330 [id number] [phone] (HP) Date: [address] [address]KV: 08/09/2018 Secondary NOT GIVENUNK [place] Insurance:SELF PAY [facility] Number: Effective Repository Date:2018-08-05 07/29/2018 NORRIS Giraldo Primary NORRIS Giraldo [place] [id number] Insurance:BUDDHIST MILLERDOB: Formerly [facility] [id number], [place]icy [place]: Repository [id number]: 330 [id number] [phone] (HP) Date: [address] [address]NU: 07/29/2018 Secondary NOT GIVENUNK Raad Insurance:SELF PAY [facility] Number: Effective Repository Date:2018-07-29 07/29/2018 NORRIS Giraldo Primary NORRIS Giraldo Raad [id number] Insurance:BUDDHIST MILLERDOB: Formerly [facility] [id number], [place]icy Number: Repository [id number]: [phone] [id number] [phone] (HP) Date: [address] [place] [address] 529[address]UA: 07/29/2018 Secondary NOT GIVENUNK [place] Insurance:SELF PAY [facility] Effective Repository Date:2018-07-29 07/22/2018 NORRIS Giraldo Primary NORRISJIGNESH Shankar [id number] Insurance:BUDDHIST MILLERDOB: Formerly [facility] [id number], [place] GROU[place]icy Number: Repository [id number]: 330 [id number] [phone] (HP) Date: [address] [place] [address] 67[address]YT: 07/22/2018 Secondary NOT GIVENUNK [place] Insurance:SELF PAY [facility] Number: Effective Repository Date:2018-07-22 07/18/2018 NORRIS Giraldo Primary NORRIS Shankar [id number] Insurance:BUDDHIST MILLERDOB: Formerly [facility] [id number], [place]: Repository [id number]: 330 [id number] [phone] (HP) Date: [address] [address]HK: 07/18/2018 Secondary NOT GIVENUNK Ra[place] Insurance:SELF PAY [facility] Number: Effective Repository Date:2018-07-12 07/18/2018 NORRIS Giraldo Primary NORRIS Kristal Raad [id number] Insurance:BUDDHIST MILLERDOB: Formerly [facility] [id number], [place]: Repository [id number]: 330 [id number] [phone] (HP) Date: [address] [address]DC: 07/18/2018 Secondary NOT GIVENUNK Ra[place] Insurance:SELF PAY [facility] Hospital Number: Effective Repository Date:2018-07-08 07/02/2018 NORRIS Giraldo Primary NORRIS Shankar [id number] Insurance:BUDDHIST MILLERDOB: Formerly [facility] [id number], [place] Number: Repository [id number]: 330 [id number] [phone] (HP) Date: [address] [place] [address] 87165IX: 07/02/2018 Secondary NOT GIVENUNK Ra[place] Insurance:SELF PAY [facility] Hospital Number: Effective Repository Date:2018-07-02 07/02/2018 NORRIS J Primary NORRIS J [place] [id number] Insurance:BUDDHIST MILLERDOB: Formerly [facility] [id number], [place]: Repository [id number]: 330 [id number] [phone] (HP) Date: [address] [address]HE: 07/02/2018 Secondary NOT GIVENUNK [place] Insurance:SELF PAY [facility] Number: Effective Repository Date:2018-07-02 07/02/2018 NORRIS J Primary NORRIS J [place] [id number] Insurance:BUDDHIST MILLERDOB: Formerly [facility] [id number], [place] Number: Repository [id number]: 330 [id number] [phone] (HP) Date: [address] [place] [address] 88[address]AT: 07/02/2018 Secondary NOT GIVENUNK [place] Insurance:SELF PAY [facility] Number: Effective Repository Date:2018-07-02 07/02/2018 NORRIS J Primary NORRIS J Raad [id number] Insurance:BUDDHIST MILLERDOB: Formerly [facility] [id number], [place]OU[place]icy Number: Repository [id number]: ([phone] [id number] [phone] (HP) Date: [address] [place] [address] 54959YD: 07/02/2018 Secondary NOT GIVENUNK [place] Insurance:SELF PAY [facility] Number: Effective Repository Date:2018-07-02 07/02/2018 NORRIS Giraldo Primary NORRIS Kristal Raad [id number] Insurance:BUDDHIST MILLERDOB: Formerly [facility] [id number], [place] GROU[place]icy Number: Repository [id number]: (216) [id number] [phone] () Date: [address] [address]CK: 07/02/2018 Secondary NOT GIVENUNK [place] Insurance:SELF PAY [facility] Number: Effective Repository Date:2018-07-02 07/02/2018 NORRIS Giraldo Primary NORRIS Shankar [id number] Insurance:BUDDHIST MILLERDOB: Formerly [facility] [id number], [place] Number: Repository [id number]: [phone]) [id number] [phone] () Date: [address] [address]BF: 07/02/2018 Secondary NOT GIVENUNK [place] Insurance:SELF PAY [facility] Number: Effective Repository Date:2018-07-02 07/02/2018 NORRIS Giraldo Primary NORRIS Kristal Raad [id number] Insurance:BUDDHIST MILLERDOB: Formerly [facility] [id number], [place] Number: Repository [id number]: (339) [id number] [phone] () Date: [address] [address]LX: 07/02/2018 Secondary NOT GIVENUNK [place] Insurance:SELF PAY [facility] Number: Effective Repository Date:2018-07-02 07/02/2018 NORRIS Giraldo Primary NORRIS Shankar [id number] Insurance:BUDDHIST MILLERDOB: Formerly [facility] [id number], [place]: Repository [id number]: 330 [id number] [phone] (HP) Date: [address] [address]LY: 07/02/2018 Secondary NOT GIVENUNK Raad Insurance:SELF PAY [facility] Number: Effective Repository Date:2018-07-02 07/02/2018 NORRIS Giraldo Primary NORRIS J Raad [id number] Insurance:BUDDHIST MILLERDOB: Formerly [facility] [id number], [place] Number: Repository [id number]: 330 [id number] [phone] () Date: [address] [address]ZT: 07/02/2018 Secondary NOT GIVENUNK Raad Insurance:SELF PAY [facility] Number: Effective Repository Date:2018-07-02 07/02/2018 NORRIS Giraldo Primary NORRIS Shankar [id number] Insurance:BUDDHIST MILLERDOB: Formerly [facility] [id number], [place] GROU[place]icy Number: Repository [id number]: 330 [id number] [phone] () Date: [address] [address]MW: 07/02/2018 Secondary NOT GIVENUNK Raad Insurance:SELF PAY [facility] Number: Effective Repository Date:2018-07-02
== END ==
PROVIDERS: Family Provider Family Medicine; PCP Family Medicine; Visit Provider Internal Medicine Cardiovascular Disease
DX: Z95.5 Presence of coronary angioplasty implant and graft (principal)

== ENCOUNTER → 2018-07-22 09:02 | Outpatient (CLI) | payer OTHER, SELFPAY ==
[2018-07-18 11:16] VITALS: BMI 39.7
[2018-07-22 09:20] LABS: International Normalized Ratio 2.6; Prothrombin Time (Protime)PT. 27.9 SECONDS (11.7-14.9)
--- OUTSIDE RECORDS SUMMARY | 2018-10-23 20:25 | XMS RPT_ITS ---
:1940 Author Organization [place] Support Name Relationship Address Phone R Unavailable Unavailable Unavailable SAMARA, CARLYLE Unavailable [address] + [place] [address] R Unavailable Unavailable Unavailable SAMARA, CARLYLE Unavailable [address] + [place] [address] R Unavailable Unavailable Unavailable SAMARA, CARLYLE Unavailable [address] + [place] [address] R Unavailable Unavailable Unavailable SAMARA, CARLYLE Unavailable [address] + [place] [address] R Unavailable Unavailable Unavailable SAMARA, CARLYLE Unavailable [address] + [place] [address] R Unavailable Unavailable Unavailable SAMARA, CARLYLE Unavailable [address] + [place] [address] R Unavailable Unavailable Unavailable SAMARA, CARLYLE Unavailable [address] + [place] [address] R Unavailable Unavailable Unavailable SAMARA, CARLYLE Unavailable [address] + [place] [address] R Unavailable Unavailable Unavailable SAMARA, CARLYLE Unavailable [address] + [place] [address] R Unavailable Unavailable Unavailable SAMARA, CARLYLE Unavailable [address] + [place] [address] R Unavailable Unavailable Unavailable SAMARA, CARLYLE Unavailable [address] + [place] [address] R Unavailable Unavailable Unavailable SAMARA, CARLYLE Unavailable [address] + [place] [address] R Unavailable Unavailable Unavailable SAMARA, CARLYLE Unavailable [address] + [place] [address] R Unavailable Unavailable Unavailable SAMARA, CARLYLE Unavailable [address] + [place] [address] STEIN, RAY Unavailable Unavailable + [place] [address] R Unavailable Unavailable Unavailable STEIN, RAY Unavailable . + [place] [address] R Unavailable Unavailable Unavailable STEIN, RAY Unavailable Unavailable + [place] [address] R Unavailable Unavailable Unavailable STEIN, RAY Unavailable Unavailable + [place] [address] R Unavailable Unavailable Unavailable STEIN, RAY Unavailable Unavailable + [place] [address] R Unavailable Unavailable Unavailable STEIN, RAY Unavailable Unavailable + [place] [address] R Unavailable Unavailable Unavailable STEIN, RAY Unavailable Unavailable + [place] [address] R Unavailable Unavailable Unavailable STEIN, RAY Unavailable Unavailable + [place] [address] R Unavailable Unavailable Unavailable STEIN, RAY Unavailable Unavailable + [place] [address] R Unavailable Unavailable Unavailable STEIN, RAY Unavailable Unavailable + [place] [address] R Unavailable Unavailable Unavailable Care Team Providers Name Role Phone Kulwant Godoy Attending Unavailable Elderbrock, Saumya Primary Care Unavailable Kulwant Godoy Attending Unavailable Kulwant Godoy Referring Unavailable Elderbrock, Saumya Primary Care Unavailable ElderbrockSaumya Attending Unavailable Jesubrock, Saumya Referring Unavailable Elderbrock, Saumya Primary Care Unavailable Vanessa Bowen Attending Unavailable Kulwant Godoy Attending Unavailable Jhon Garcia Attending Unavailable Jhon Garcia Referring Unavailable Elderbrock, Saumya Primary Care Unavailable Kulwant Godoy Consulting Unavailable Jesubrock, Saumya Primary Care Unavailable Jhon Garcia Admitting Unavailable Jhon Garcia Attending Unavailable Kulwant Godoy Consulting Unavailable Adebayo Bueno Attending Unavailable Adebayo Bueno Referring Unavailable Elderbrock, Saumya Primary Care Unavailable Siomara Helm Consulting Unavailable Umm Yan Attending Unavailable Umm Yan Referring Unavailable Elderbrock, Saumya Primary Care Unavailable Floyd Cruz D.O. Attending Unavailable Elderlos alamitos, [place] Referring Unavailable Floyd Cruz D.O. Attending Unavailable Floyd Cruz D.O. Referring Unavailable [facility], [place] Primary Care Unavailable Floyd Cruz D.O. Attending Unavailable Floyd Cruz D.O. Referring Unavailable Elderlos alamitos, [place] Primary Care Unavailable Cheng Mccoy Attending Unavailable Umm Yan Referring Unavailable Moodispaw, Kulwant Attending Unavailable Moodispashay, Kulwant Referring Unavailable [facility] Primary Care Unavailable Kotsonis, Jhon F Admitting Unavailable Kotsonis, Jhon F Attending Unavailable [facility] Primary Care Unavailable Kotsonis, Jhon F Consulting Unavailable Kotsonis, Jhon F Admitting Unavailable Kotsonis, Jhon F Attending Unavailable [facility] Primary Care Unavailable Kotsonis, Jhon F Consulting Unavailable Kotsonis, Jhon F Admitting Unavailable Moodispaw, Kulwant Attending Unavailable [facility] Primary Care Unavailable Moodispashay, Kulwant Consulting Unavailable Kotsonis, Jhon F Consulting Unavailable Kotsonis, Jhon F Admitting Unavailable Kotsonis, Jhon F Attending Unavailable [facility] Primary Care Unavailable Moodispashay, Kulwant Consulting Unavailable Kotsonis, Jhon F Consulting Unavailable Kotsonis, Jhon F Admitting Unavailable Moodispaw, Kulwant Attending Unavailable [facility] Primary Care Unavailable Moodispashay, Kulwant Consulting Unavailable Kotsonis, Jhon F Consulting Unavailable Kotsonis, Jhon F Admitting Unavailable Kotsonis, Jhon F Attending Unavailable [facility] Primary Care Unavailable Moodispaw, Kulwant Consulting Unavailable Kotsonis, Jhon F Consulting Unavailable Kotsonis, Jhon F Admitting Unavailable Moodispaw, Kulwant Attending Unavailable [facility] Primary Care Unavailable Moodispashay, Kulwant Consulting Unavailable Kotsonis, Jhon F Consulting Unavailable Kotsonis, Jhon F Admitting Unavailable Kotsonis, Jhon F Attending Unavailable [facility] Primary Care Unavailable Moodiscecilia, Kulwant Consulting Unavailable Kotsonis, Jhon F Consulting Unavailable Kotsonis, Jhon F Admitting Unavailable Moodispaw, Kulwant Attending Unavailable Saumya Newton Primary Care Unavailable Kulwant Godoy Consulting Unavailable Jhon Garcia Consulting Unavailable Jhon Garcia Attending Unavailable Jhon Garcia Referring Unavailable Saumya Newton Primary Care Unavailable Kulwant Godoy Consulting Unavailable EMANAM REEVES ([facility]) Attending Unavailable CEBUL III, KAMALJIT A Referring Unavailable UMM YAN ([facility]) Attending Unavailable ELDERBROCK, SAUMYA Pelayo Referring Unavailable ELDERBROCK, SAUMYA Pelayo Referring Unavailable ELDERBROCK, SAUMYA Pelayo Attending Unavailable RAFAEL FENTON Referring Unavailable ELDERBROCK, SAUMYA Pelayo Referring Unavailable ELDERBROCK, SAUMYA Pelayo Referring Unavailable ELDERBROCK, SAUMYA Pelayo Attending Unavailable ELDERBROCK, SAUMYA Pelayo Referring Unavailable EMANAM ([facility]) Referring Unavailable EMANAM ([facility]) Attending Unavailable EMANAM ([facility]) Attending Unavailable ELDERBROCK, SAUMYA Pelayo Attending Unavailable ELDERBROCK, SAUMYA Pelayo Referring Unavailable ELDERBROCK, SAUMYA Pelayo Referring Unavailable ELDERBROCK, SAUMYA Pelayo Referring Unavailable ARMANI CHAUDHARY Referring Unavailable PROBLEMS PROBLEMS DATE TYPE CONDITION / CODE ATTENDING STATUS SOURCE 08/16/2018 Unknown 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 Community implant and graft / Hospital Z95.5(ICD-10) Repository 08/23/2018 Unknown R05 - Cough / Darius, Cheng Active [facility] R05(ICD-10) Community Hospital Repository 08/19/2018 Unknown R91.1 - Solitary Roof, Adebayo H Active [facility] pulmonary nodule / Community R91.1(ICD-10) Hospital Repository 07/30/2018 Unknown I48.91 - Unspecified Moodispashay, Kulwant Active [facility] atrial fibrillation / Community I48.91(ICD-10) Hospital Repository 07/30/2018 Unknown I48.0 - Paroxysmal Moodispashay, Kulwant Active [facility] atrial fibrillation / Community I48.0(ICD-10) Hospital Repository 07/30/2018 Unknown I48.92 - Unspecified Moodispashay, Kulwant Active [facility] atrial flutter / Community I48.92(ICD-10) [...] 07/30/2018 Unknown E78.5 - Moodispashay, Kulwant Active [place] Hyperlipidemia, Community unspecified / Hospital E78.5(ICD-10) Repository 07/30/2018 Unknown I10 - Essential Moodispashay, Kulwant Active [facility] (primary) Community hypertension / Hospital I10(ICD-10) Repository 07/25/2018 Active Cough / R05(ICD-10) NA Active [facility] [place] Repository 07/22/2018 Active Unspecified atrial NA Active [facility] fibrillation / Clinic Main I48.91(ICD-10) [place] Repository 08/05/2018 Unknown Z79.01 - [facility] Kotsonis, Active [place] (current) use of Jhon [facility], [facility] anticoagulants / Hospital Z79.01(ICD-10) Repository 08/05/2018 Unknown E11.9 - Type 2 Kotsonis, Active [facility] diabetes mellitus [facility] without complications Hospital / E11.9(ICD-10) Repository 07/03/2018 Active Other forms of NA Active [facility] dyspnea / Clinic Main R06.09(ICD-10) [place] Repository 07/02/2018 Active Unknown / EMJAYNE REEVESSSE Active [place]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 Main [place] Repository 01/24/2017 Active Type 2 diabetes NA Active [place] mellitus without Clinic Main complications / [place] E11.9(ICD-10) Repository 07/14/2015 Active Hyperlipidemia, NA Active [place] unspecified / Clinic Main E78.5(ICD-10) [place] Repository PROCEDURES PROCEDURES No Procedure Records FoundRESULTS RESULTS PROGRESS Observed: 08/23/2018 Status: COMPLETED Source: [place] 1:34 PM [facility] REPOSITORY HNO ID: [id number] Author: Saumya Newton Service: (none) Author Type: Physician Type: Progress Notes Filed: 08/23/2018 4:08 PM Note Text: Stay on same dose; recheck in 1 week as planned Saumya Newton MD PROGRESS Observed: 08/23/2018 Status: COMPLETED Source: [place] 12:20 PM [facility]IC [facility] REPOSITORY HNO ID: [id number] Author: Vanessa Mckeon RN Service: (none) Author Type: (none) Type: Progress Notes Filed: 08/23/2018 12:23 PM Note Text: patient had inr completed at [facility] patients inr is 2.9 (patients inr range [...] F Source: [facility] PROFILE (BMP) 8:59 AM [facility] REPOSITORY TYPE CODE TESTS RESULT [...] GAP 7 Performed By: #### L500.2500 #### [facility] [place], [address] OBSOLETE Observed: 08/23/2018 Status: COMPLETED Source: [place] 12:00 AM [facility] REPOSITORY Refill (COUMWS) NORRIS STEIN ([id number]) 1940 M Date Time Provider Department 08/23/18 SAUMYA NEWTON During your visit today, we recorded the following information about you: Vanessa Mckeon RN 08/23/2018 12:24 PM Signed Patient [...] F Source: [facility] PROFILE (BMP) 8:20 AM [facility] REPOSITORY TYPE CODE TESTS RESULT [...] GAP 11 Performed By: #### L500.2500 #### [facility] [address] [place], [address] Observed: 08/16/2018 Status: F Source: [facility] CULTURE, SPUTUM 7:45 AM [facility] REPOSITORY Gram Stain Gram Stain 2+ Epithelial cells 4+ Gram positive cocci 2+ Gram positive rods 2+ Gram negative rods Resp. Culture Mixed normal respiratory odilia. No Haemophilus, Streptococcus pneumoniae, beta-hemolytic Streptococcus or Staphylococcus aureus isolated. Performed By: #### M100.0800 #### [facility] [address] [place], [address] PROGRESS Observed: 08/15/2018 Status: COMPLETED Source: [place] 2:23 PM [facility] REPOSITORY HNO ID: [id number] Author: Martha Stewart Ma Service: (none) Author Type: (none) Type: Progress Notes Filed: 08/15/2018 2:55 PM Note Text: Pt notified, per Dr. Aguilar to take 4 mg today (08/15/18) then go to 2 mg daily. Recheck in 1 week. Pt has been scheduled on 08/23/18 at 1:15 but stated that you said he could come in early. If this is a problem please contact pt and let him know. Med list and tracker updated Martha Stewart Ma PROGRESS Observed: 08/15/2018 Status: COMPLETED Source: [place] 11:27 AM [facility] REPOSITORY HNO ID: [id number] Author: Vanessa Mckeon RN Service: (none) Author Type: (none) Type: Progress Notes Filed: 08/15/2018 11:31 AM Note Text: patient had inr completed at [facility] patients inr is 1.8 (patients inr range [...] F Source: [facility] RESPIRATORY PANEL 9:20 AM [facility] MOLECULAR REPOSITORY RP PANEL ADENOVIRUS Not Detected [...] acid amplification Performed By: #### M100.638 #### [facility] [address] [place], [place], [address] MISCELLANEOUS LAB Collected: 08/15/2018 Status: F Source: [facility] PROCEDURE 8:57 AM [facility] REPOSITORY Order Comment: Comments: Urine Histoplasma antigen Comments: Urine Histoplasma antigen Test(s) Ordered: URINE HISTOPLASMA ANTIGEN TYPE CODE TESTS RESULT OUT OF RANGE REFERENCE UNITS LAB L801.1541 Normal [facility] LAB TEST Result Comment: TEST RESULT LIMITS Histoplasma Gal'ludy Ag Ur Histoplasma Gal'ludy Ag Ur <0.5 <0.5 ng/mL Disclaimer: This test was developed and its performance characteristics determined by [facility]. It has not been cleared or approved by the Food and Drug Administration. TESTING PERFORMED AT [facility]. ORIGINAL REPORT ON FILE IN LAB CONTAINS ADDITIONAL TEST SITE INFORMATION. Performed By: #### L801.1541 #### [facility] [address] [place], [address] PULMONARY VISIT REPORT Observed: 08/15/2018 Status: F Source: [facility] 8:46 AM [facility] [place] [address] [place] [address] OFFICE VISIT Date of Service: 08/15/18 MR#: [id number] Acct: [id number] Name: NORRIS STEIN Rep #: [id number] : 1940 Provider: Floyd Cruz D.O. Age/Sex: 77/M Location: [facility] Status: Signed Assessment AND Plan 1. Restrictive [...] versus direct tissue biopsy at that time. [id number],JP;/9j/4AAQSkZJRgABAQEAYABgAAD/8FYgDYnjSaCPGV4JLvQCNElKZKM1CZTYHYKPZWWGEgaeWLXJKYTWEDV MEsqyYJJDVUJDWJYPvomsXTfHSWzNXGUVEaCABWGv2aPGAYcGPYYCRTOJEIKYUFUPHWRSAAUVQISKPMVOMXPYERNVCLEJNQ AAAAAAAAAAAAAAAAAAAAAAAAAAAAAAAAAAAAAAAAAAAAAAAAAAAAAAAAAAAAAAAAAAAAAAAAAAAAAAAAAAAAAAAAAAAAAAA AAAAAAAAAAAAAAAAAAAAAAAAAAAAAAAAAAAAAAAAAAAAAAAAAAAAAAAAAAAAAAAAAAAAAAAAAAAAAAAAAAAAAAAAAAAAAAA AAAAAAAAAAAAAAAAAAAAAAAAAAAAAAAAAAAAAAAAAAAAAAAAAAAAAAAAAAAAAAAAAAAAAAAAAAAAAAAAAAAAAAAAAAAAAAA AAAAAAAAAAAAAAAAAAAAAAAAAAAAAAAAAAAAAAAAAAAAAAAAAAAAAAAAAAAAAAAAAAAAAAAAAAAAAAAAAAAAAAAAAAAAAAA AAAAAAAAAAAAAAAAAAAAAAAAAAAAAAAAAAAAAAAAAAAAAAAAAAAAAAAAAAAAAAAAAAAAAAAAAAAAAAAAAAAAAAAAAAAAAAA AAAAAAAAAAAAAAAAAAAAAAAAAAAAAAAAAAAAAAAAAAAAAAAAAAAAAAAAAAAAAAAAAAAAAAAAAAAAAAAAAAAAAAAAAAAAAAA AAAAAAAAAAAAAAAAAAAAAAAAAAAAAAAAAAAAAAAAAAAAAAAAAAAAAAAAAAAAAAAAAAAAAAAAAAAAAAAAAAAAAAAAAAAAAAA AAAAAAAAAAAAAAAAAAAAAAAAAAAAAAAAAAAAAAAAAAAAAAAAAAAAAAAAAAAAAAAAAAAAAAAAAAAAAAAAAAAAAAAAAAAAAAA AAAAAAAAAAAAAAAAAAAAAAAAAAAAAAAAAAAAAAAAAAAAAAAAAAAAAAAAAAAAAAAAAAAAAAAAAAAAAAAAAAAAAAAAAAAAAAA AAAAAAAAAAAAAAAAAAAAAAAAAAAAAAAAAAAAAAAAAAAAAAAAAAAAAAAAAAAAAAAAAAAAAAAAAAAAAAAAAAAAAAAAAAAAAAA AAAAAAAAAAAAAAAAAAAAAAAAAAAAAAAAAAAAAAAAAAAAAAAAAAAAAAAAAAAAAAAAAAAAAAAAAAAAAAAAAAAAAAAAAAAAAAA AAAAAAAAAAAAAAAAAAAAAAAAAAAAAAAAAAAAAAAAAAAAAAAAAAAAAAAAAAAAAAAAAAAAAAAAAAAAAAAAAAAAAAAAAAAAAAA AAAAAAAAAAAAAAAAAAAAAAAAAAAAAAAAAAAAAAAAAAAAAAAAAAAAAAAAAAAAAAAAAAAAAAAAAAAAAAAAAAAAAAAAAAAAAAA AAAAAAAAAAAAAAAAAAAAAAAAAAAAAAAAAAAAAAAAAAAAAAAAAAAAAAAAAAAAAAAAAAAAAAAAAAAAAAAAAAAAAAAAAAAAAAA AAAAAAAAAAAAAAAAAAAAAAAAAAAAAAAAAAAAAAAAAAAAAAAAAAAAAAAAAAAAAAAAAAAAAAAAAAAAAAAAAAAAAAAAAAAAAAA AAAAAAAAAAAAAAAAAAAAAAAAAAAAAAAAAAAAAAAAAAAAAAAAAAAAAAAAAAAAAAAAAAAAAAAAAAAAAAAAAAAAAAAAAAAAAAA AAAAAAAAAAAAAAAAAAAAAAAAAAAAAAAAAAAAAAAAAAAAAAAAAAAAAAAAAAAAAAAAAAAAAAAAAAAAAAAAAAAAAAAAAAAAAAA AAAAAAAAAAAAAAAAAAAAAAAAAAAAAAAAAAAAAAAAAAAAAAAAAAAAAAAAAAAAAAAAAAAAAAAAAAAAAAAAAAAAAAAAAAAAAAA AAAAAAAAAAAAAAAAAAAAAAAAAAAAAAAAAAAAAAAAAAAAAAAAAAAAAAAAAAAAAAAAAAAAAAAAAAAAAAAAAAAAAAAAAAAAAAA AAAAAAAAAAAAAAAAAAAAAAAAAAAAAAAAAAAAAAAAAAAAAAAAAAAAAAAAAAAAAAAAAAAAAAAAAAAAAAAAAAAAAAAAAAAAAAA AAAAAAAAAAAAAAAAAAAAAAAAAAAAAAAAAAAAAAAAAAAAAAAAAAAAAAAAAAAAAAAAAAAAAAAAAAAAAAAAAAAAAAAAAAAAAAA AAAAAAAAAAAAAAAAAAAAAAAAAAAAAAAAAAAAAAAAAAAAAAAAAAAAAAAAAAAAAAAAAAAAAAAAAAAAAAAAAAAAAAAAAAAAAAA AAAAAAAAAAAAAAAAAAAAAAAAAAAAAAAAAAAAAAAAAAAAAAAAAAAAAAAAAAAAAAAAAAAAAAAAAAAAAAAAAAAAAAAAAAAAAAA AAAAAAAAAAAAAAAAAAAAAAAAAAAAAAAAAAAAAAAAAAAAAAAAAAAAAAAAAAAAAAAAAAAAAAAAAAAAAAAAAAAAAAAAAAAAAAA AAAAAAAAAAAAAAAAAAAAAAAAAAAAAAAAAAAAAAAAAAAAAAAAAAAAAAAAAAAAAAAAAAAAAAAAAAAAAAAAAAAAAAAAAAAAAAA AAAAAAAAAAAAAAAAAAAAAAAAAAAAAAAAAAAAAAAAAAAAAAAAAAAAAAAAAAAAAAAAAAAAAAAAAAAAAAAAAAAAAAAAAAAAAAA AAAAAAAAAAAAAAAAAAAAAAAAAAAAAAAAAAAAAAAAAAAAAAAAAAAAAAAAAAAAAAAAAAAAAAAAAAAAAAAAAAAAAAAAAAAAAAA AAAAAAAAAAAAAAAAAAAAAAAAAAAAAAAAAAAAAAAAAAAAAAAAAAAAAAAAAAAAAAAAAAAAAAAAAAAAAAAAAAAAAAAAAAAAAAA QDXLHXMFJEXBFKDLSTSUSXKVDBOACLLHQuTGwzoN2idQR9YPEVqTZGAeNBEAJHABCluAGAMoPPWAWVGMF1tgLBPdFZSCCdI IORmpGYOiNELADgYQEP8wnAArNOBKoGUOqUERLWPJajSVKERZVMRGINYZTIAKSIOYFROZMSXAFCKNWPQRFMAFEPWCUECTOR AAAAAAAAAAAAAAAAAAAAAAAAAAAAAAAAAAAAAAAAAAAAAAAAAAAAAAAAAAAAAAAAAAAAAAAAAAAAAAAAAAAAAAAAAAAAAAA AAAAAAAAAAAAAAAAAAAAAAAAAAAAAAAAAAAAAAAAAAAAAAAAAAAAAAAAAAAAAAAAAAAAAAAAAAAAAAAAAAAAAAAAAAAAAAA AAAAAAAAAAAAAAAAAAAAAAAAAAAAAAAAAAAAAAAAAAAAAAAAAAAAAAAAAAAAAAAAAAAAAAAAAAAAAAAAAAAAAAAAAAAAAAA AAAAAAAAAAAAAAAAAAAAAAAAAAAAAAAAAAAAAAAAAAAAAAAAAAAAAAAAAAAAAAAAAAAAAAAAAAAAAAAAAAAAAAAAAAAAAAA AAAAAAAAAAAAAAAAAAAAAAAAAAAAAAAAAAAAAAAAAAAAAAAAAAAAAAAAAAAAAAAAAAAAAAAAAAAAAAAAAAAAAAAAAAAAAAA AAAAAAAAAAAAAAAAAAAAAAAAAAAAAAAAAAAAAAAAAAAAAAAAAAAAAAAAAAAAAAAAAAAAAAAAAAAAAAAAAAAAAAAAAAAAAAA AAAAAAAAAAAAAAAAAAAAAAAAAAAAAAAAAAAAAAAAAAAAAAAAAAAAAAAAAAAAAAAAAAAAAAAAAAAAAAAAAAAAAAAAAAAAAAA AAAAAAAAAAAAAAAAAAAAAAAAAAAAAAAAAAAAAAAAAAAAAAAAAAAAAAAAAAAAAAAAAAAAAAAAAAAAAAAAAAAAAAAAAAAAAAA AAAAAAAAAAAAAAAAAAAAAAAAAAAAAAAAAAAAAAAAAAAAAAAAAAAAAAAAAAAAAAAAAAAAAAAAAAAAAAAAAAAAAAAAAAAAAAA AAAAAAAAAAAAAAAAAAAAAAAAAAAAAAAAAAAAAAAAAAAAAAAAAAAAAAAAAAAAAAAAAAAAAAAAAAAAAAAAAAAAAAAAAAAAAAA AAAAAAAAAAAAAAAAAAAAAAAAAAAAAAAAAAAAAAAAAAAAAAAAAAAAAAAAAAAAAAAAAAAAAAAAAAAAAAAAAAAAAAAAAAAAAAA AAAAAAAAAAAAAAAAAAAAAAAAAAAAAAAAAAAAAAAAAAAAAAAAAAAAAAAAAAAAAAAAAAAAAAAAAAAAAAAAAAAAAAAAAAAAAAA AAAAAAAAAAAAAAAAAAAAAAAAAAAAAAAAAAAAAAAAAAAAAAAAAAAAAAAAAAAAAAAAAAAAAAAAAAAAAAAAAAAAAAAAAAAAAAA AAAAAAAAAAAAAAAAAAAAAAAAAAAAAAAAAAAAAAAAAAAAAAAAAAAAAAAAAAAAAAAAAAAAAAAAAAAAAAAAAAAAAAAAAAAAAAA AAAAAAAAAAAAAAAAAAAAAAAAAAAAAAAAAAAAAAAAAAAAAAAAAAAAAAAAAAAAAAAAAAAAAAAAAAAAAAAAAAAAAAAAAAAAAAA AAAAAAAAAAAAAAAAAAAAAAAAAAAAAAAAAAAAAAAAAAAAAAAAAAAAAAAAAAAAAAAAAAAAAAAAAAAAAAAAAAAAAAAAAAAAAAA AAAAAAAAAAAAAAAAAAAAAAAAAAAAAAAAAAAAAAAAAAAAAAAAAAAAAAAAAAAAAAAAAAAAAAAAAAAAAAAAAAAAAAAAAAAAAAA AAAAAAAAAAAAAAAAAAAAAAAAAAAAAAAAAAAAAAAAAAAAAAAAAAAAAAAAAAAAAAAAAAAAAAAAAAAAAAAAAAAAAAAAAAAAAAA AAAAAAAAAAAAAAAAAAAAAAAAAAAAAAAAAAAAAAAAAAAAAAAAAAAAAAAAAAAAAAAAAAAAAAAAAAAAAAAAAAAAAAAAAAAAAAA AAAAAAAAAAAAAAAAAAAAAAAAAAAAAAAAAAAAAAAAAAAAAAAAAAAAAAAAAAAAAAAAAAAAAAAAAAAAAAAAAAAAAAAAAAAAAAA AAAAAAAAAAAAAAAAAAAAAAAAAAAAAAAAAAAAAAAAAAAAAAAAAAAAAAAAAAAAAAAAAAAAAAAAAAAAAAAAAAAAAAAAAAAAAAA AAAAAAAAAAAAAAAAAAAAAAAAAAAAAAAAAAAAAAAAAAAAAAAAAAAAAAAAAAAAAAAAAAAAAAAAAAAAAAAAAAAAAAAAAAAAAAA AAAAAAAAAAAAAAAAAAAAAAAAAAAAAAAAAAAAAAAAAAAAAAAAAAAAAAAAAAAAAAAAAAAAAAAAAAAAAAAAAAAAAAAAAAAAAAA AAAAAAAAAAAAAAAAAAAAAAAAAAAAAAAAAAAAAAAAAAAAAAAAAAAAAAAAAAAAAAAAAAAAAAAAAAAAAAAAAAAAAAAAAAAAAAA AAAAAAAAAAAAAAAAAAAAAAAAAAAAAAAAAAAAAAAAAAAAAAAAAAAAAAAAAAAAAAAAAAAAAAAAAAAAAAAAAAAAAAAAAAAAAAA AAAAAAAAAAAAAAAAAAAAAAAAAAAAAAAAAAAAAAAAAAAAAAAAAAAAAAAAAAAAAAAAAAAAAAAAAAAAAAAAAAAAAAAAAAAAAAA AAAAAAAAAAAAAAAAAAAAAAAAAAAAAAAAAAAAAAAAAAAAAAAAAAAAAAAAAAAAAAAAAAAAAAAAAAAAAAAAAAAAAAAAAAAAAAA AAAAAAAAAAAAAAAAAAAAAAAAAAAAAAAAAAAAAAAAAAAAAAAAAAAAAAAAAAAAAAAAAAAAAAAAAAAAAAAAAAAAAAAAAAAAAAA [file] WfZmLpOXeeXWyQGXO9w+9AXaB6LVN/[employer]+wPvNwOByCl6b7V0Jc9Hf6uz9itn47dYNI0dJV8w30QpNczRQH4Gdh1fv3A2noM [file] QexBoAn/ALLl/evp and chief operating officer+jC9xas27/CtXkz0p6syjaQ7Gkn8OikJrb15WhAQSUAWRetltPGJzb88YnFj/AIWc2m+IZc1WtVsgX7f [file] 1pP7Kl/evp and chief operating officer+qnFT098pYjTEyw8LcuYrZ/eFHqb98nZdkviEp91V8OK7yRuUxvGFNq4I1p2MxvJrPqQlyVIaDSBX+W2s9I4tD U76Cp8aWvL7D7GEuKXbM1/8Asqb++l05m7AA/xN7le6V39vsiQr/dhAvieejSbgROMPrWKA02CAFINUidJm9qQQy+ypv76f rR/QY382G9rYihMdg7Re/evp and chief operating officer+tJ/Nmr42C7kC+ZJs2shbGwo3UsMdr6kn52oi9KBAt77VNYoOZfRNp81toD1L4BVabwl5E7j IwSiVGJB7bTZyWimh/80SDRab7S1q5uMRn+s5k11teR/2XN/z7W2dZL/Pt3yOIXUknS8bqnC25zJHwX0IuCRhvR93Ibb+9T J07bx0PkWwzTOuW9nycdoHjRf1aSjfbTNnNkZHTboT4fzvpiAUM9+y5+5nmUrME8qnkmyM1olCQ3WVH0uKlSC6wmJR2hC3o ucepUUADQ3mYVcJWzhcASuVGaoujywzrJcLPkN6BK3uuHYA0ZdbF4ytsg0HEpRYVVGttHDIFUXHZTB4c2cuotHc0bw+y5v8 Uindh9fb2d6FK3r+AKM1Y0hMvtq8mSSSwaZYVDXzfWRD3bK9RynRn7+lRQeSp2g4mlD8vc7XnD2bqGDN1cK9CwhPuL+U555 AOoOlzH/qaz91r2DM/mI2z4bpI2QdyF9SI0M9Rq5owGhw6yr3dcZRaNCubCOUGIf4/IjHunjEPKBw4T8sT8QvMXWjwNDGhJ lAplYykaMUtWYl6mj91TRcC/JH231K1qZ9Av/evp and chief operating officer+tc2/pSLxySCKcB5qejDWq2OBmj/sSAJ5Cq94GeE6Qtz7dZ5J1kZf8d8 poPcqefiEyCs8AcjGb0nQndw5DSzMmuiwlSAOB+wi3gXG0h4fm/30/Wl/sqb+/H+harlan+E/oDluS8O4dKdNv46ED5VZ/jvjO upc07W2gRQ8mIfEcv6ehrv81C+EhuNTbM30l2JzAHktwaVxBE5cMroXaZETJLrrIuJzQGW2cEnfK2fB7Ln/evp and chief operating officer+tYfivWtc0 /le4JzdZlqi9seiBTubIG3eUW6q2a6kvraUykOdPKvihs1qcA3FfdespBWHl1bPcKbF8DllDLfx5LqLPVHnM/ZxjvQB2/9l GupY6hG7Ms/evp and chief operating officer+iawBamZvnRh8NdBcxNcNZwARnTfev6CNsyL/1b/Sl1lS9blHMN+HfFE+w8ohJiW+lSabeWCwymNpllDxy lubDTepaDBtfM6ZXJsV213G7i/sub++b82pcg08s4jiTLRFIcFX9d37YNJ6LobnTNF1PBJA7jUywFl+vBAo+Kicr5hVstZo 1QCLckBjiEJpYEepcNtQAXlrPK5E64QFbb3sKt54/Wj+skh08nwZsVZXct2UT3tO1f/suX++n61n/INN5q91KvWz9jamMxk oTZSVbsD2spfxuj0u7/bWLCmLgcB4Slv5g2qoJ4r9Wr6p328yD8LcnhABxUi8OOusELXrGMxw0KA4eJ0vs6Ak/evp and chief operating officer+tcx8K7 V0ve5Ie55d+r4ffPGykio2bjFmaK8ODqukbQSfsCm38o2Xl0gx5156P2Cpw2sqqHGrdKwvbCmfoLjErSnUo04bXhJ7s1Wu/ evp and chief operating officer+dM9mak06/Cbh0elrcRyzZor54Fhg+54ZsGUHI2qi5bETMFXmdv4ce51RreAxvv6VheH6Qe/ToDgNlwiv3vO5yKL2VZTG xfKGGCyjBLZGScUAdh/ZS857D7o/sqX++z02WuikKy3nl1uTqH8QbA0szljoG9a+unpzXOzecW7Kl2BlIsNsN+Jri/e60/w E7UXz9GPZDLxi417eUt0NHUdwU2H64VOk/AOypuzx/rR/XM405Z7ntaFdoEh0O3ki5MfwLMcey9aGnIgbjddrApS40CW5oK dvDp5BrA4ZQkU6Hb3QH1q8hvH3ADsBK8yMakjjmJTHaANKFP1O3peYil5Zl/evp and chief operating officer+tH9ly/30/Wuan+Itxazrp8+gS/2x/aEV u6pg5fL25I4cfgdiDXRVk7LsQ337y/7XwK6s6GpE7ULGeSObLnM15A6dhN8I438YLPDIXlXXslOAV1qaHDwu/Ipb63A5xh5 Km/evp and chief operating officer+tcD4L+Ff4wtJhMTsJbdYEc1n5eJ9KHsonu+Ln72oKNiG9J57w2/rw8waxBMDreQPi1rcfzIZsH7S3dxS85MZTOtKP M2BXki4PY/CHzmt40jyQb6ZRh83wpIL116fQ3BeSCluBMNXy7iwZT0vdy5NCJu4e2JuF4PpfHD4F/kdktvKonnVZx4BpkOv 73bhxIWWKiVXkdvTkhWknfHYN1BB8Z1qE7E+ntf09tyI/CW528U3kg5+S7k8iz2F9zKUJ2aklpRzZyGe4S64FLg4lFNMFc2 tl2th9MtS6xv8z122+2yQOX3iBk0RBPrbwahYJZ1idwStmyI6hJ3m1Fb/evp and chief operating officer+tB0qb++e04par75m1vgNWEFcgEW9W83APU3 DkblTWSHgLe3mz1JNOHewwgS9yBZoty7d0/0zm1jTBE6UKVBEJk2mEGvJz+FXgZzk8/YD34LUg+uoo71lcQ/2VL/bS1jdEP M2nLc2jGb5z5hOY5sR0y5PXNoBDqVU5JgKpqxDXEfnf0S+DOEudAjwx7ZqEEgTMJ3WlGsOCj59hMYI0kaawVzn8ihQ2RwsJ 4AO/wD7Km/evp and chief operating officer+tJ/Kf801F1r3DzGWkgRN9hleitnGIbtRCyogs8bEo6/rmj+MrHTta1/nXhC7kMyaGFkYAaGs8sbhRPBBPR [file] ortYOMZVLCMHWRoEguwgWUFTGLMKKDMMFW2kKGRHplcfO+lFFFABRRRQAGiiigAxRRRQAUUUGgAooooAKKOlBoAKDRijpQA WNTVQDLzxtBGCCSGRlxncVnawJKT3vpgrAKKMSSQZJBVMELLhRCAFWSSVPLIX0fJPKQfAuaSbkgkQPXPNPVYPWAtUSBJCIU CTPEKPMZ8tmlGXWGPLLKA4jyaXPTKIDIesdzXgbSUEHOAZ6WdAQ9/XrL/uQmYjUyQn9Zhr2D4H18dYEtHoE7KoYjopkI4ue FAnERIIfHbJMmMVW0PgosrBdajS7wuYGAbHXWwxteARCrlhfI6JJKorQftIHsvg6JAlGOH9H/h/U34hrU38V2bukn42kFO1 jKskjCGZjKX+sF88I2NkqONRvwVCao0G4+1zel/aNav2RexQy7klopjz+4q6COfn6cpusav6fUMTZXD2XjUc540WoGxNm72 sXoDMYPh1ChkYBWBO6P3NfX25y23s05jDsLrQuC+ysNm2EWsaYHrdT7wwtLiEzBpGLfmZjyzsbQFYYbrRhZWgEeA87S0zdv flDBZIF9ofJxOdMGLQSgkLSyjQPOc2ri1V98T0Nw1dtXPhv2JikNlyNnHCJWO3d8FvjxXYbX744X45NXCoS2v5EOP4rAHl5 AXXmlvNdCqcwsncVgpiWXHLNS4kJQgZ5nYmD1EGWy3KShBsr74FDs0cKDHQbmJxgy8uqWFgxX832U/+yERWeIz5E iQEu1T7z85Z4wOMLc7J21bBhQnCutprnvkZpGoOv9RzR3I6mo5NVgXmKzsQ7W4VFzKfNojAqjJQHUPJ7T50U82+5pe1n4NF K3sbhtAFW9RNg+iKQotz8HQhstKD5WadDpil6Dmo37WPJb8WdPxivbU0qOMwKPkdgowyom60IIpueDWCLErqbHKCEQlFbcQ uZWvBZtB3pjvfA1mOktOqrW4MxjuTwRQ4HUJ8WtYVGaBLRg/2KVIv4ldR83O/VpOW2cvb3GONzXo0zMYTMy5xci2fBkJSZa 9KAPPLLSNWW+bLN8c5QwQgtOpbADzrnLWSyevyJU+GAjCzadEmXcOWHjvJl7Xz9u1i06iWxrTULeC9NHci0ET+uDXVYx/spanner operator PooEngcW6prv6YvpyplTGqQx8msYzokBuIp6ftHEJkil6w38SMztH9h8S5fAML0ntHZ9q8qn7awoEmwqMMHHKYCrtOfVHyK Ta7Hb2UJeVl0m/0paBd6QcK5rVsJkktIlt4rz/Qcjt9MqFiBQEypU+VrbJJtN7V917PhNrjcGZ9QUyV4av1pzdoZLVs1YRc 4jcubwO35pOJ4Xav92/vyRKZ2B+4gN1BM4aMwpqr3mqmgAcXA4GBM8CVnPx1zvqszJjN1IZ6CQpPv5g7+z0Ipe43F2DuEq8 gPFmkSfQN9mMdQpjo7JiwgZORTw60c4qQFIWjL2Bx4pOjT5S+12UsI0/d1nCI4bs+6dwJbd69hD/Zn330UHTUKnOjdGrCNJ N3S2ff7tLGaELdVXYXbOcP/Ynsor36vMC3179SMlSFqmLJChRZCV8TGuoLoN8EWkDsVWQxXGXOEJEVCP1X3gK449iC6P6Xb Qw1sBB7f6v+7bvdirXfeYeXQERJYMIPebGVogx3Bm+HtV/oxgVFw5a5QWhK4k5cvipSjMTU4FKEYenP+VEH3AR15HgGMNKo G4AjdM78vq29B9pMyV5Hd8/eLRwJm0tms6nYWPwnRGHUjnDGUwjpk5t9FbV3a1NJda6YkkRsDUQtRFYDsm8TE/PteSew0JA 91qgQSsed097LB61AlpZ/SwYQiz/sKl35HUX3WimhcNXNtaA62NTlObdj+pTny7+ey3/cq7dQHiPOlnkDi17MjlwZQEO8qz e645UeWqy9Mq9b4bao7ePFSqau+THfKFiuWvWU2455TBOpIkctCkYceHzIKLsbfKAIA8VOwXUNepIrPvvRYw8Qs6Y3xQWNV 6ARGNMHZWFMLZZu5bZ1dATcCDTNSCjqbtpVjpbhJIUABEHFKIZWHFKnWPZHUQOLOOPa9TCJRRTKXHCFCURKQDFIHLpCuZDC YLBaWBJIbru7WACIVCOQMXRFYVTQjAqFVjcXPWJJpOZP4KUEEuTPVYVSIwBnpnyAdFknqaKptfjSQJBLSJQZZ9mcWGQIMUQ ZCBGWFMHPTWZ6RXsVDPxSRCROSYAZbqARyVMMCAXEDtwObmzcXDHVEHEdbnnHscGSSTMHJIBVDPJSRHBGXBDMMvsOlbesFH [file] jT/j7Ayx3kMZ8W1qwCcpMSr7ltEqrNWKeDW49h2QjIVWN30Ill2vL7JMMSOGGLUWSRFELFVHPZFDHUJJVUHWDHCRDVUHBJO FFABRRRQBmat9+F0Nv62sje7+L6Gs/QGIBUNsFeYBDGKV6riTNIdTNB94cYxrlbaKRsQsE19rQy0J83gHVJrkfmA4XwTiI/ wCg7Z/9/lo/4TLTP+g7Z/5Oh8iCTxlvgH2DzHuS/pXg4nh1/loPjLTP+g5Z/fPr5kBAcjtbK+Ey0z/oO2n/AH+Wg+MtM/6D tn/3+IsCc3M7M/hMtM/6Dln/AN/ceCaASW7NkQHi/s7uBNzojpH+Ex0z/oO2f/d8vS2DfDvY/wCg5Z/9/loA6+iuQPjLTP8 AoO2f/f5aP+Ey0z/oOWn/AH+GmTo0H5L/OALLHU2OgE6l/f5aP+Ey0z/oO2n/AH+DpZc7K4X/HEQASE4BpB2z/f5aP+Ey0z /oO2f/AH+OpQn6X4I/BFWILS6QhS7v/f5aP+Ey0z/oOWf/AH+FcZs0K1C/FEJQJT9VsSDp/f5aP+Ey0z/oO2f/AH+WgDr6K 5D/VRFQFZ5EiSCc/f5aP+Ey0z/oOWf/AH+JeCg6B0H/NRFLAB8HpB9w/f5aP+Ey0z/oO2n/AH+SkCn9N0V/AEKQGM7YmG0r /f5aP+Ey0z/oOWf/AH+UhFj4R9T/CGJKGA6JnU9b/f5aP+Ey0z/oO2f/AH+PrKh8J6D+MtM/6Dtp/wB/lo/4TLTP+g5af9/ loA6+iuQ/4TLTP+r0ph9Qg1lK+Ey0z/oOWn/w4vPTjbovW+Ey0z/oO2f/AH+Wj/hMtM/6Dtn/AN/loA6+iuQ/4TLTP+g7Z/ 8Af5aP+Ey0z/oO2n/v5eUCndnrX+Ey0z/oOWf/AH+Wj/hMtM/6Dln/AN/loA6+iuQ/4TLTP+g5Z/8Af5aP+Ey0z/uP4i1Q5 +EaWs1R5Q+MtM/6Dln/AN/lo/4TLTP+g7Z/9/loA6+iuQ/4TLTP+g7Z/wDf5aP+Ey0z/oO2f/y3wDQytunW+Ey0z/oO2f8A 3+Wg+MtM/wCg5Z/9/loA6+iuQ/4TLTP+g7Z/9/lo/wCEy0z/AKDtn/3+CaTg2K8T/hMtM/6Dtn/3+Wj/QBSIOY9ZnIQy/f5 aAOvorkP+Ey0z/oO2f/n0bV1w9l/oO2f/AH+NfWj1U4H/MHQNBO4NdM8c/f5aP+Ey0z/oOWf/AH+DyVz7D4D+MtM/6Dln/w B/lo/4TLTP+g7Z/lGo0iXDeaudH+Ey0z/oO2f/AH+Wj/hMtM/6Dtp/3+MiHz0T7O/hMtM/6Dtn/wB/lo/4TLTP+g7af9/lo A6+iuQ/4TLTP+g7Z/8Af5aP+Ey0z/fKVf0H7+YwJk3M5K/hMtM/6Dtp/wB/lo/4TLTP+g7Z/gZe1gBOtppcQ+Ey0z/oO2f/ AH+Wj/hMtM/6Dtp/3+EgIe0W4G/hMtM/6Dtn/wB/loPjLTP+g7Z/9/loA6+iuQ/4TLTP+g5af9/lo/4TLTP+g7Z/9/loA6+ iuQ/4TLTP+g5Z/wDf5aP+Ey0z/oOWf/p3eLUhxomQ+Ey0z/oO2n/f5aP+Ey0z/oO2f/d5qLPsbmqH+Ey0z/pSZi2K5+Wj/h MtM/6Dtn/3+GpNl4O6Q/hMtM/6Dln/AN/lo/4TLTP+g7Z/9/loA6+iuQ/4TLTP+g7Z/wDf5aP+Ey0z/oO2f/s2pAJatxbR+ Ey0z/dU2k4F5+Wj/hMtM/6Dtn/3+WgHi7N9B+MtM/6Dtp/3+Wj/WIDTLN7EpW2k/l5vSGerqsV+Ey0z/oO2f/n2tK3VcSiY /wCg5Z/9/loA6+jFch/bqJsy8I8p/wC/h1i4Eibs/Qcs/zDy4xYVN4GrO/CZaZ/0HbP/AL/ZZnOCak9EIbp/+/t9MxySIJf 8Jlpn/QdtP+/y5j7LCAxZ/wBB2z/7/WWM82Crc/usTcd6I9q/AO/d5k8DVCoI/wBB2z/7/YTM71Rrq/qwSnt4K21/7/LR/w AJlpn/AEHLP/k1kWZO7MjO/CZaZ/7EeK0G5/LR/wAJlpn/AEHbP/y6kMPH8TmW/CZaZ/7QGY2J2/LR/wAJlpn/AEHbP/v8t BHR1CjN/CZaZ/7PvL1I0/LR/wAJlpn/AEHbP/c0dORE7KdQ/CZaZ/4FyC8G4/LR/wAJlpn/AEHbP/s2lMDA8RdO/CZaZ/0H b/LR/wAJlpn/AEHLP/t7lFBV3XpI/CZaZ/0HbT/v8tH/UFpPxm5ZNyv/+/m3VdtOWNFyozd/AEHbT/v8tH/CZaZ/0HL P/n4ODFP04Bvk/wAJlpn/AEHbP/l6gC5HaJ/0HLP/AL/POB79Hgh/bdHrz9Z20/7/PV5o6Ggii/TynY6Un3yEKO6ZeL/CZa Z/0HLP/v8ALR/guAuy5Y8j/wC/p6FhoPNJd9Bmen/Qcs/+/wAtH/CZaZ/0HbP/AL/JMS54Gif/dkQts7J7z/7/DL6j6Xaek /Qcs/1Qr4lORI0FaG/CZaZ/0HLP/v8ALR/vsWpj9Qzl//60Abmrffi+viEwJ60w11XO4aruYIf7FzWZ325lTUXROkAWOH MePfRtTJQVVg8A1WYMHUVq+VUS7C0bVNAK5R+VGPp+IJMPFg8pdVc6txHWWJJ+n5UY9h+DERLRb1B5NI+s7DTVKR9U1iTi/ NhttRk6Prht5DeinzEGKd+VGMdh+HWQIMy5M2gZyN8eJJSAFNOkjOz0lfRDKKX+x8FkoAsvlcAOpn/Ue8lwldyUAhJ5rKhd /MdqiCz1Kblk1Q1rZQEY5I+FU1loUOTHfxWne/S5wWJHDRpHczdAPyiKOMBR+w4AD2N8cFYCQ7Z+VGPp+VFFABjHp+VGPYf dOTCRHyB8fQD0B8ZIJNQ9R2wWTNRalXNXMldGsn/KwtUXQSF4D8oXoC0ZPWNMMxBCcZ6JLWNOIa+VGPp+VFFABgDsPyoI+n 5UUUAGPp+VBAeVlnlxOKaG8MzkHezreBWaS9WhxLwcesJQrd/Xld1xwNOSYywKkrk4FurdkYPbM6MT5m+VFFAB+A/KjHsPy aknMJEPvkJh4C8yYLND4G+IE4N3hQHVZ7nsl/AflRRQAY+n5UY+v9VJMYNTz+VGPp+VFFAB+A/Bhz9suJUAWfcRhvEfunxh AXH0/Yvz0X6RABQFLc+VB+g/IzqyXy6LxzV5Q5MSXKVVw+HCMTjmDRCVW5d+VGPp+MJDBPe5K2PX7o+ZEDPDciXMv2gZOSW Y+q7TqkMseqyGMtH0sG3Q+ZWMPM09I9aNbE7ISISZQw4HPnT3xYHZGr4wyL+A/KiigA/CqsB76T4kIISJUjTqp/AflRRQAY +n5UY9h+TKWQUf1M0UruKbkogTDtv/KjHsPyoooACPp+ZH2A8pLKLJ4K+QH4Y3kJJIQT8/KjH+cUUUAFGaKKACkNFFAH/9k = Orders Orders: 3. Obesity E66.9 Plan [...] The patient was employed previously working in [employer]. He is currently on scheduled Lasix and [...] of anticoagulants (Acute) Atherosclerotic heart disease of [place] coronary artery without angina pectoris (Chronic) Encounter [...] PULMONARY FUNCTION Observed: 08/15/2018 Status: F Source: [place] REPORT COMP 5:57 AM [facility] REPOSITORY [facility] Pulmonary Services/Neurology [address] [place] [address] MR#: [id number] Acct: [id number] Name: NORRIS STEIN Rep #: [id number] : 1940 77 From: Cheng Mccoy MD Referring Dr: Umm Yan, ASHLEYC Status: REG CLI Ordering Dr: Date: Location: [facility] Sex: M C COMPLETE PULMONARY FUNCTION TEST INTERPRETATION Brief HPI: Patient is a 77 year old male, currently under the care of Umm Yan, who presents to [facility] for complete pulmonary function tests secondary to [...] Mccoy MD> Date Cheng Mccoy MD CC: HOSPICE CARE TRANSITIONS COORDINATOR-C Umm Yan; Cheng Mccoy MD; Saumya Newton MD Date Dictated: 08/14/18728 Date Transcribed: 08/14/18728 Knowledge Manager: EDITA Signed PROGRESS Observed: 08/13/2018 Status: COMPLETED Source: [place] 9:11 AM [facility] [place] REPOSITORY HNO ID: [id number] Author: Yoli Montes Ma Service: (none) Author Type: (none) Type: Progress Notes Filed: 08/13/2018 3:41 PM Note Text: Patient notified and appointment made for Tracker updated Yoli Montes Ma PROGRESS Observed: 08/13/2018 Status: COMPLETED Source: [place] 8:30 AM [facility] REPOSITORY HNO ID: [id number] Author: Armani Chaudhary Service: (none) Author Type: Physician Type: Progress Notes Filed: 08/13/2018 3:41 PM Note Text: 2 mg on and Sun. PROGRESS Observed: 08/13/2018 Status: COMPLETED Source: [place] 8:12 AM [facility] REPOSITORY HNO ID: [id number] Author: Yoli Montes Ma Service: (none) Author Type: (none) Type: Progress Notes Filed: 08/13/2018 3:41 PM Note Text: Spoke to patient and he verbalized understanding. Patient requested lab draw on Sunday at [facility] since getting labs done there as well. Patient said if previous provider did not agree than requested getting done tomorrow since appointment for rehab. Please advise Yoli Montes Ma PROGRESS Observed: 08/12/2018 Status: COMPLETED Source: [place] 10:04 PM [facility] REPOSITORY HNO ID: [id number] Author: Armani Chaudhary Service: (none) Author Type: [...] 08/15/2018 PROGRESS Observed: 08/12/2018 Status: COMPLETED Source: [place] 3:03 PM [facility] [place] REPOSITORY HNO ID: [id number] Author: Vanessa Mckeon RN Service: (none) Author Type: (none) Type: Progress Notes Filed: 08/12/2018 3:09 PM Note Text: patient had inr completed at [facility] patients inr is 3.0 (patients [...] is having lab work for cardio at [facility] on Sunday, patient is requesting that an order for protime be sent to [facility] so he can have everything completed at one place. CHEST WITHOUT Observed: 08/12/2018 Status: F Source: [place] CONTRAST 3:00 PM [facility] REPOSITORY [facility] Imaging Services [address] [place] [address] Chest without Contrast MR#: [id number] Acct: [id number] Name: NORRIS STEIN Rep #: [id number] : 1940 M 77 From: Bacilio Mitchell MD PCP: Saumya Newton MD Status: REG CLI Study: Chest without Contrast Date of Exam: 08/12/18 Exam# [id number] Ordering Dr: Adebayo Bueno HOSPICE CARE TRANSITIONS COORDINATOR-C STUDY: CT CHEST WITHOUT CONTRAST REASON FOR [...] Bacilio Mitchell MD at 15:47 EST Tel [phone], Service support , CC: RETA Bueno; Saumya Newton MD Knowledge Manager: Signed PROGRESS Observed: 08/09/2018 Status: COMPLETED Source: [place] 2:49 PM [facility] REPOSITORY HNO ID: [id number] Author: Yoli Montes Ma Service: (none) Author Type: (none) Type: Progress Notes Filed: 08/09/2018 3:10 PM Note Text: Spoke to patient and gave instructions Tracker updated and appointment made Sunday Yoli Montes Ma PROGRESS Observed: 08/09/2018 Status: COMPLETED Source: [place] 11:28 AM [facility] REPOSITORY HNO ID: [id number] Author: Umm Yan Service: (none) Author Type: [...] showed ST changes. He was transferred to [facility] via ambulance. He had cardiology consult. As you recall he was evaluated in cardiovascular consultation on 07/03/2018 at [facility] for concerns of atrial fibrillation/flutter, findings compatible [...] had a repeat chest xray today at [facility], unfortunately results not available. At the office [...] Laterality Date - COLONOSCOP W/ OR W/O [facility] SPEC 04/08/15 Colonoscopy ALLERGIES Patient [...] L NC as needed, portable. ICD-10 I50.9, Anabaptism- no electric. Does not want to go [...] to follow per cardiology. 5. CAD in [place] artery - ICD9: 414.01, ICD10: I25.10 Continue to follow per cardiology. Discussed treatment plan and patient voices understanding. Patient's questions answered appropriately. Medications and potential side effects were discussed and patient voices understanding. Return to the office as scheduled or as needed for worsening/no improvement. Umm Yan APRN.FORESTRY INSTRUCTOR CNOV Observed: 08/09/2018 Status: COMPLETED Source: [place] 11:20 AM [facility] REPOSITORY [facility] NORRIS STEIN ([id number]) 1940 M Date Time Provider Department 08/09/18 [...] showed ST changes. He was transferred to [facility] via ambulance. He had cardiology consult. As you recall he was evaluated in cardiovascular consultation on 07/03/2018 at [facility] for concerns of atrial fibrillation/flutter, findings compatible [...] had a repeat chest xray today at [facility], unfortunately results not available. At the office [...] Laterality Date - COLONOSCOP W/ OR W/O [facility] SPEC 04/08/15 Colonoscopy ALLERGIES Patient [...] L NC as needed, portable. ICD-10 I50.9, Anabaptism- no electric. Does not want to go [...] to follow per cardiology. 5. 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] Cardiomyopathy, unspecified type (HCC) [I42.9] Chronic systolic heart failure (HCC) [I50.22] CAD in [place] artery [I25.10] Order(s):SPIROMETRY WITH DILATOR IF OBSTRUCTED [8355947] Order #: [id number] FUTURE CONSULT TO PULM/CRITICAL CARE [19991013] Order #: [id number]: 1 Prescriptions as of 08/09/2018 Sig: FUROSEMIDE [...] AND LATERAL Observed: 08/09/2018 Status: F Source: [place] 9:43 AM [facility] REPOSITORY [facility] Imaging Services [address] [place] [address] Chest PA and Lateral MR#: [id number] Acct: [id number] Name: NORRIS STEIN Rep #: [id number] : 1940 M 77 From: Ken Donato MD PCP: Saumya Newton MD Status: REG RCR Study: Chest PA and Lateral Date of Exam: 08/09/18 Exam# [id number] Ordering Dr: Kulwant Godoy MD STUDY: X-RAY [...] CC: Saumya Newton MD; Kulwant Godoy MD Knowledge Manager: Signed PROGRESS Observed: 08/09/2018 Status: COMPLETED Source: [place] 9:10 AM [facility] REPOSITORY HNO ID: [id number] Author: Saumya Newton Service: (none) Author Type: Physician Type: Progress Notes Filed: 08/09/2018 3:10 PM Note Text: Hold coumadin for now; recheck INR on Sunday Saumya Newton MD PROGRESS Observed: 08/09/2018 Status: COMPLETED Source: [place] 8:35 AM [facility] REPOSITORY HNO ID: [id number] Author: Vanessa Mckeon RN Service: (none) Author Type: (none) Type: Progress Notes Filed: 08/09/2018 8:37 AM Note Text: patient had inr completed at [facility] patients inr is 5.3 (patients [...] F Source: [facility] PROFILE (BMP) 8:23 AM [facility] REPOSITORY TYPE CODE TESTS RESULT [...] GAP 9 Performed By: #### L500.2500 #### [facility] [address] [facility] [place], [address] PROGRESS Observed: 07/31/2018 Status: COMPLETED Source: [place] 9:03 AM [facility] REPOSITORY HNO ID: [id number] Author: Saumya Newton Service: (none) Author Type: [...] to 40 mg daily. A-fib: follows with Health Claims Examiner, Dr. Godoy. INR is managed by PCP, goes to coumadin clinic. Is taking Coumadin daily. Past medical history, appointments, medications, allergies reviewed. Previous Medical History PAST MEDICAL HISTORY Diagnosis Date - DM (diabetes mellitus) (HCC) - Essential hypertension, benign - Other and unspecified hyperlipidemia - Other specified family circumstances Previous Surgical History PAST SURGICAL HISTORY Procedure Laterality Date - COLONOSCOP W/ OR W/O [facility] SPEC 04/08/15 Colonoscopy Family History [...] L NC as needed, portable. ICD-10 I50.9, Anabaptism- no electric. Does not want to go [...] - PT Sec 07/22/2018 Test sent to [facility]. - PT INR 07/22/2018 Test sent to [facility]. - Protein, Total 07/22/2018 6.8 - Albumin [...] MD CNOV Observed: 07/31/2018 Status: COMPLETED Source: [place] 9:00 AM [facility] REPOSITORY Office Visit ([facility]) NORRIS STEIN ([id number]) 1940 M Date Time Provider Department 07/31/18 [...] to 40 mg daily. A-fib: follows with Health Claims Examiner, Dr. Godoy. INR is managed by PCP, goes to coumadin clinic. Is taking Coumadin daily. Past medical history, appointments, medications, allergies reviewed. Previous Medical History PAST MEDICAL HISTORY Diagnosis Date - DM (diabetes mellitus) (HCC) - Essential hypertension, benign - Other and unspecified hyperlipidemia - Other specified family circumstances Previous Surgical History PAST SURGICAL HISTORY Procedure Laterality Date - COLONOSCOP W/ OR W/O [facility] SPEC 04/08/15 Colonoscopy Family History [...] L NC as needed, portable. ICD-10 I50.9, Anabaptism- no electric. Does not want to go [...] - PT Sec 07/22/2018 Test sent to [facility]. - PT INR 07/22/2018 Test sent to [facility]. - Protein, Total 07/22/2018 6.8 - Albumin [...] Chronic atrial fibrillation (HCC) [I48.2] Order(s):HGB A1C [DRXKL3G] Order #: [id number] PROTHROMBIN TIME/PT [SQPT] Order #: [id number] furosemide (LASIX) 40 mg tabletTake 1 tablet [...] CARDIOLOGY VISIT Observed: 07/29/2018 Status: F Source: [place] REPORT 2:07 PM [facility] REPOSITORY [facility] [address] [place] [address] OFFICE VISIT Date of Service: 07/29/18 MR#: [id number] Acct: [id number] Name: NORRIS STEIN Rep #: [id number] : 1940 Provider: Kulwant Godoy MD Age/Sex: 77/M Location: [facility] Status: Signed HPI HPI Details: NORRIS STEIN, is a 77 M who presents to the office today for outpatient cardiovascular follow-up. As you recall he was evaluated in cardiovascular consultation on 07/03/2018 at [facility] for concerns of atrial fibrillation/flutter, findings compatible [...] of anticoagulants (Acute) Atherosclerotic heart disease of [place] coronary artery without angina pectoris (Chronic) Encounter [...] affect Assessment AND Plan 1. Atherosclerosis of [place] coronary artery of [place] heart without angina pectoris I25.10 Plan At [...] controlled. 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 He is considering changing his anticoagulant therapy monitoring from his [facility] group to the [facility]. He will notify the office [...] Code Off vis,est,level 4 Diagnoses Atherosclerosis of [place] coronary artery of [place] heart without angina pectoris I25.10 [place] vs. 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 Z79.01 07/29/18 1407 <Electronically signed by Kulwant Godoy MD> Date Kulwant Godoy MD Cosigner Signature: Date (if applicable) CC: Saumya Newton MD 12 LEAD EKG PERFORMED Observed: 07/29/2018 Status: F Source: [facility] BY [facility] 12:[address] [address] 12 Lead EKG performed by [facility] 07/29/181200 MR#: [id number] Acct: [id number] Name: NORRIS STEIN Rep #: [id number] : 1940 77 From: Kulwant Godoy MD Attending Dr: Kulwant Godoy MD Status: REG AMB Ordering Dr: Kulwant Godoy MD Date: 07/29/18 Location: [facility] Sex: M C Admitted: [facility]/12 Lead EKG performed by [facility] ECG Report Interpretation Sinus Bradycardia Electronically signed on 07/29/2018 at 14:52 by Kulwant Godoy Software Version [id number] 07/29/18 1454 Date Kulwant Godoy MD CC: Date Dictated: 07/29/181200 Date Transcribed: 07/29/181200 Knowledge Manager: PM Signed CNPN Observed: 07/26/2018 Status: COMPLETED Source: [place] 12:00 AM [facility] REPOSITORY Telephone ([facility]) NORRIS STEIN ([id number]) 1940 M Date Time Provider Department 07/26/18 [...] let him use. Wants rx faxed to [facility] so Liquid tank can be delivered before the weekend. Patient was seen in urgent care and has fluid in his lungs and has appt to see Dr Godoy on Sunday. son in law says Norris does not use oxygen all the time but uses 2 liters when he is short of breath. Gave me fax number for [facility] [phone], he had spoke to them already today. Aware PCP is out of office until 07/31/2018. Please advise Anam Strickland APRN.CNP 07/26/2018 4:12 PM Signed Order for home oxygen ordered. Can resend [facility], notify patient. IVET Zelaya [facility] 07/26/2018 4:16 PM Signed Rx faxed, patient notified via Anam Strickland APRN.CNP 07/26/2018 4:26 PM Signed Addended by: ANAM STRICKLAND CNP on: 07/26/2018 04:26 PM Modules accepted: Orders Analisa Cedillo [facility] 07/26/2018 4:29 PM Signed New Rx faxed, Allergies As of Date: 07/26/2018 (No Known Allergies) Date Reviewed: 07/25/2018 Reviewed by: Sarah Mena Ma - Fully Assessed Reason for Visit: wants rx for liquid oxygen [Other] Primary Visit Diagnosis:Acute on chronic congestive heart failure, unspecified heart failure type (HCC) [I50.9] Order(s):COMPOUNDED PRESCRIPTIONHome oxygen @ 2 L NC as needed, portable. ICD-10 I50.9, Anabaptism- no electric. Does not want to go [...] L NC as needed, portable. ICD-10 I50.9, Anabaptism- no electric. Does not want to go to generator Medications Discontinued During This Encounter COMPOUNDED PRESCRIPTION 1 Ea* 0 07/26/2018 07/26/2018 Class: Print RX Sig: Home oxygen @ 2 L NC, with portable , ICD-10: I50.9 Disc: Reason for discontinue is not on file. Encounter Status:Closed by ANALISA CEDILLO CMA on 07/26/18 XR CHEST 2V FRONTAL/LAT Observed: 07/25/2018 Status: F Source: [place] 11:02 AM [facility] REPOSITORY * * *Final Report* * * [...] both lung bases. Otherwise no acute process. Knowledge Manager: PSCB Transcribe Date/Time: Jul 25 2018 12:35P Dictated by : GEMMA COTTON MD This examination was interpreted and the report reviewed and electronically signed by: GEMMA COTTON MD on Jul 25 2018 12:36PM EST [id number] PROGRESS Observed: 07/25/2018 Status: COMPLETED Source: [place] 10:53 AM [facility] REPOSITORY HNO ID: [id number] Author: Minoo Wheeler (Rt) Oli Lyle Service: (none) Author Type: Internet Marketing Assistant Type: Progress Notes Filed: 07/25/2018 11:02 AM [...] AM PROGRESS Observed: 07/25/2018 Status: COMPLETED Source: [place] 10:24 AM [facility] [place] REPOSITORY HNO ID: [id number] Author: Rafael Fenton Service: (none) Author Type: [...] sodium diet. 4. Coronary artery disease involving [place] heart, angina presence unspecified, unspecified vessel or lesion type - ICD9: 414.01, ICD10: I25.10 Continue Billinta. Discuss plavix with cardiology since he has concerns about cost. 5. Atrial fibrillation, unspecified type (HCC) - ICD9: 427.31, ICD10: I48.91 He is aware of increase bleeding risk on warfarin. He is interested in newer anticoagulants. D/w PCP. Rafael Fenton MD CNOV Observed: 07/25/2018 Status: COMPLETED Source: [place] 9:45 AM [facility] REPOSITORY Office Visit (WSTR) NORRIS STEIN ([id number]) 1940 M Date Time Provider Department 07/25/18 9:45 AM RAFAEL FENTON [facility] During your visit today, we recorded the [...] sodium diet. 4. Coronary artery disease involving [place] heart, angina presence unspecified, unspecified vessel or lesion type - ICD9: 414.01, ICD10: I25.10 Continue Billinta. Discuss plavix with cardiology since he has concerns about cost. 5. Atrial fibrillation, unspecified type (HCC) - ICD9: 427.31, ICD10: I48.91 He is aware of increase bleeding risk on warfarin. He is interested in newer anticoagulants. D/w PCP. Raafel Fenton MD Referring Provider: SELF [200] Allergies As of Date: 07/25/2018 (No Known Allergies) Date Reviewed: 07/25/2018 Reviewed by: Sarah Mena Ma - Fully Assessed Reason for Visit: Chest Congestion [236] Cmt: cough x 3 weeks Primary Visit Diagnosis:Cough [R05] Other Visit Diagnoses:Wheezing [R06.2] Acute on chronic congestive heart failure, unspecified heart failure type (HCC) [I50.9] Coronary artery disease involving [place] heart, angina presence unspecified, unspecified vessel or lesion type [I25.10] Atrial fibrillation, unspecified type (HCC) [I48.91] Order(s):XR CHEST 2V FRONTAL/LAT [[id number]] Order #: [id number] FUTURE Prescriptions as of 07/25/2018 Sig: ALBUTEROL [...] 07/25/18 PROGRESS Observed: 07/25/2018 Status: COMPLETED Source: [place] 9:42 AM [facility] REPOSITORY HNO ID: [id number] Author: John Mckeon) Yoav Service: (none) Author Type: Physician Type: Progress Notes Filed: 07/25/2018 9:42 AM Note Text: INR therapeutic. Continue current coumadin dosage and follow up in 2 weeks. PROGRESS Observed: 07/25/2018 Status: COMPLETED Source: [place] 9:33 AM [facility] REPOSITORY HNO ID: [id number] Author: Vanessa Mckeon RN Service: (none) Author Type: (none) Type: Progress Notes Filed: 07/25/2018 9:35 AM Note Text: patient had inr completed at [facility] patients inr is 2.3 (patients inr range [...] the first normal reading since dose change. PROTHROMBIN TIME W/INR Collected: 07/22/2018 Status: F Source: [place] 7:48 AM [facility] REPOSITORY TYPE CODE TESTS RESULT OUT OF RANGE REFERENCE UNITS LAB L300.4150 11.7-14.9 SECONDS High PROTIME 27.9 LAB L300.4200 Normal INR 2.6 Performed By: #### L300.3900 #### [facility] [address] [place], [address] PROTIME Collected: 07/22/2018 Status: F Source: [place] 7:48 AM [facility] REPOSITORY TYPE CODE TESTS RESULT OUT OF REFERENCE UNITS RANGE LAB PSEC 9.7-13.0 sec Test PT sent to [facility]. Result Comment: Account Credited HIDE LAB INR 0.9-1.3 Test sent to PT INR [facility]. Result Comment: Account Credited HIDE COMP METABOLIC PANEL Collected: 07/22/2018 Status: F Source: [place] 7:48 AM [facility] REPOSITORY TYPE CODE TESTS RESULT OUT OF REFERENCE UNITS RANGE LAB TP 6.3-8.0 g/dL Protein, Total 6.8 LAB ALB 3.9-4.9 g/dL Low Albumin 3.8 LAB CA 8.5-10.2 mg/dL Calcium, Total 8.8 LAB TBIL 0.2-1.3 mg/dL Bilirubin, Total 0.6 LAB ALKP 38-113 U/L Alkaline Phosphatase 62 LAB AST 14-40 U/L AST 25 LAB GLU 74-99 mg/dL Glucose High 114 Result Comment: The Indian Diabetes Association (ADA) provides guidance for cutoff [...] Standards of Medical Care in Diabetes 2016, Indian Diabetes Association. Diabetes Care. 2016.39(Suppl 1). LAB [...] GFR. Performed By: #### CMP, HBA1C #### [facility] [place] [address] [place], [place] [address] HEMOGLOBIN A1C Collected: 07/22/2018 Status: F Source: [place] 7:48 AM [facility] REPOSITORY TYPE CODE TESTS RESULT OUT OF REFERENCE UNITS RANGE LAB HGBA1C 4.3-5.6 % High Hemoglobin A1c 6.7 Result Comment: Indian Diabetes Association guidelines indicate that patients with HgbA1c in the range 5.7-6.4% are at increased risk for development of diabetes, and intervention by lifestyle modification may be beneficial. HgbA1c greater or equal to 6.5% is considered diagnostic of diabetes. LAB HBA0 mg/dL Est. Average Glucose 146 Result Comment: eAG: (Estimated average glucose) is a calculated value from HgbA1c and is security systems sales representative of the average blood glucose level in the last 2-3 month period. Performed By: #### CMP, HBA1C #### [facility] [place] [address] [place], [place] [address] CR - HISTORY AND Observed: 07/18/2018 Status: F Source: [place] PHYSICAL 1:13 PM [facility] REPOSITORY [facility] Cardiac Rehab [address] [place] [address] CR - History AND Physical MR#: [id number] Acct: [id number] Name: NORRIS STEIN Rep #: [id number] : 1940 77 From: Cindy Graff RN PCP: Saumya Nweton MD DOS: 07/18/18 CR - History AND [...] Advanced Directives - Advanced Directives Power of Technical Support Technician: No Living Will: No Advance Directives Information Provided: Yes Advance Directives on File: No DNR Order?:: No Past Medical History - Past Medical Illness Medical History: Past Medical History (Last Updated 07/18/18 @ 10:50 by Cindy Graff, HELGA) Atherosclerotic heart disease of [place] coronary artery without angina pectoris (Chronic) I25.10 [...] = Denies (Slash). Left click = Reports ([place]) Review of Present Symptoms: Reports: Shortness of [...] METABOLIC Collected: 07/18/2018 Status: F Source: RA[place] [facility] 9:12 AM [facility] REPOSITORY Order Comment: DR. NEWTON WANTS THE [...] 7 Performed By: #### L500.4050, L500.4100 #### [facility] [address] [place], [address] LIPID PROFILE Collected: 07/18/2018 Status: F Source: [place] 9:12 AM [facility] REPOSITORY Order Comment: DR. NEWTON WANTS THE [...] 34 Performed By: #### L500.4050, L500.4100 #### [facility] [address] [place], [address] HEMOGLOBIN A1C Collected: 07/18/2018 Status: F Source: [place] 9:12 AM [facility] REPOSITORY Order Comment: DR. NEWTON WANTS THE A1C CMP LIPID WANTS THE CMP PT TYPE CODE TESTS RESULT OUT OF RANGE REFERENCE UNITS LAB L501.9985 4.2-6.3 % High HGB A1C 7.1 Performed By: #### L501.9985 #### [facility] [address] [place], [address] PROTHROMBIN TIME W/INR Collected: 07/18/2018 Status: F Source: [place] 9:12 AM [facility] REPOSITORY Order Comment: DR. NEWTON WANTS THE A1C CMP LIPID WANTS THE CMP PT TYPE CODE TESTS RESULT OUT OF REFERENCE UNITS RANGE LAB L300.4150 11.7-14.9 SECONDS High PROTIME 53.2 LAB L300.4200 High alert INR 5.9 Result Comment: CRITICAL VALUE VERIFIED. CALLED TO SORIN SKINNER 07/18/18 1101 Bernardo Szymanski. RESULTS READ BACK BY SAME. Performed By: #### L300.3900 #### [facility] [address] [facility] [place], [address] CNOV Observed: 07/16/2018 Status: COMPLETED Source: [place] 10:00 AM [facility] REPOSITORY Office Visit (FAMPWS) NORRIS STEIN ([id number]) 1940 M Date Time Provider Department 07/16/18 [...] Yes TRANSITION CARE MANAGEMENT (TCM) INITIAL CONTACT Mail Agent Outreach ? Provider Action/FYI: ? - Returned call to pt to setup an appt for TCM within 7-14 days of discharge. ? - Pt reports feeling pretty well today. Notified MA that he completed blood work at [facility] (including INR) and we should be getting these results. Asks if other labs need completed. After review pt should only need A1c which can be done in the office or same day at the lab. ? - Pt states he will be follow up with Health Claims Examiner at [facility] ([facility]), Dr. Godoy. Labs were placed today to complete at [facility] from Cardiology. ? - Pt has regularly scheduled OV on 07/31/18 and wonders if this appt will need kept. His and himself have appt's that day. Updated pt that we will discuss at upcoming appt to keep it scheduled as is. ? - INR today on lab work was 1.2 from results at [facility]. ? ? Initial contact with patient post discharge, spoke to :Spoke with patient on July 08, 2018 Provider Documentation: In follow-up of hospitalization, Norris Stein is a 77 year old male, following up from his recent hospital stay. With him today is his , Devorah and oldest son, Berhane Setin. Son, Berhane feels that he is working [...] Laterality Date - COLONOSCOP W/ OR W/O [facility] SPEC 04/08/15 Colonoscopy Family History [...] OVER WITH 5YR LOOKBACK Completed Data reviewed [facility] External Records ASSESSMENT/PLAN: 1. Hospital discharge follow-up [...] Past Histories independently gathered by the clinical technical support representative and the remaining scribed note accurately describes [...] at today?s visit. Referring Provider: SAUMYA NEWTON [[id number]] Allergies As of Date: 07/16/2018 (No Known [...] insulin (HCC) [E11.9] Order(s):UA DIP, URINE (POC) [[id number]] Order #: [id number]. #:[id number] albuterol (PROVENTIL) 2.5 mg /3 mL (0.083 %) nebulizer solutionUse 3 mL via nebulizer every 4 hours as needed for Wheezing/Shortness of Breath. Use over 5-15minutes.Disp: 50 VialRfl: 3 codeine-guaiFENesin (ROBITUSSIN AC) 10-100 mg/5 mL syrupTake 5 mL by mouth three times daily as needed for Cough for up to 30 days.Disp: 120 mLRfl: 1 OXYGEN CONCENTRATOR 2-3 LITER/MIN [[id number]] Order #: [id number] LORazepam (ATIVAN) 0.5 mg tabTake 1 tablet [...] by mouth twice * OMEPRAZOLE 20 MG CAPSULE,AKIAR* Take 1 capsule by mouth once * [...] 07/16/18 PROGRESS Observed: 07/16/2018 Status: COMPLETED Source: [place] 9:55 AM [facility] REPOSITORY HNO ID: [id number] Author: Saumya Newton Service: (none) Author Type: [...] Yes TRANSITION CARE MANAGEMENT (TCM) INITIAL CONTACT Mail Agent Outreach ? Provider Action/FYI: ? - Returned call to pt to setup an appt for TCM within 7-14 days of discharge. ? - Pt reports feeling pretty well today. Notified MA that he completed blood work at [facility] (including INR) and we should be getting these results. Asks if other labs need completed. After review pt should only need A1c which can be done in the office or same day at the lab. ? - Pt states he will be follow up with Health Claims Examiner at [facility] ([facility]), Dr. Godoy. Labs were placed today to complete at [facility] from Cardiology. ? - Pt has regularly scheduled OV on 07/31/18 and wonders if this appt will need kept. His and himself have appt's that day. Updated pt that we will discuss at upcoming appt to keep it scheduled as is. ? - INR today on lab work was 1.2 from results at [facility]. ? ? Initial contact with patient post [...] Laterality Date - COLONOSCOP W/ OR W/O [facility] SPEC 04/08/15 Colonoscopy Family History [...] OVER WITH 5YR LOOKBACK Completed Data reviewed [facility] External Records ASSESSMENT/PLAN: 1. Hospital discharge follow-up [...] Past Histories independently gathered by the clinical technical support representative and the remaining scribed note accurately describes [...] F Source: [place] PROFILE (BMP) 8:57 AM [facility] REPOSITORY Order Comment: PATIENT STATED THERE WAS AN A1C ORDERED FROM DR NEWTON, [facility]PECT[facility]ORD[facility], STATES THEY ARE NOT DUE UNTIL AFTER [...] GAP 6 Performed By: #### L500.2500 #### [facility] [address] [place], [address] PROTHROMBIN TIME W/INR Collected: 07/12/2018 Status: F Source: [place] 8:57 AM [facility] REPOSITORY TYPE CODE TESTS RESULT OUT OF REFERENCE UNITS RANGE LAB L300.4150 11.7-14.9 SECONDS High PROTIME 35.5 LAB L300.4200 High alert INR 3.5 Result Comment: CRITICAL VALUE VERIFIED. CALLED TO OFFICE [facility] 07/12/18 1053 Migdalia Cordova. RESULTS READ BACK BY SAME . Performed By: #### L300.3900 #### [facility] [address] [place], [address] 12 LEAD ELECTROCARDIOGRAM Observed: 07/11/2018 Status: F Source: [place] 3:26 PM [facility] REPOSITORY [facility] Cardiovascular Services [address] [facility] [place] [address] 12 Lead EKG 07/04/18 1649 MR#: [id number] Acct: [id number] Name: NORRIS STEIN Rep #: [id number] : 1940 77 From: Kulwant Godoy MD Attending Dr: Jhon Garcia MD Status: DIS IN Ordering Dr: Kulwant Godoy MD Date: 07/04/18 Location: [facility] Sex: M C Admitted: 07/02/18 Test Reason [...] normal ECG Confirmed by KULWANT GODOY MD ([id number]), acquisitions editor AUBREY STEIN ([id number]) on 07/11/2018 3:25:46 PM Referred By: Confirmed By:KULWANT GODOY MD 07/11/18 1528 Date Kulwant Godoy MD CC: Saumya Newton MD; Jhon Garcia MD; Kulwant Godoy MD Signed 12 LEAD ELECTROCARDIOGRAM Observed: 07/11/2018 Status: F Source: [place] 3:26 PM [facility] REPOSITORY [facility] Cardiovascular Services [address] [place] [address] 12 Lead EKG 07/04/18 1649 MR#: [id number] Acct: [id number] Name: NORRIS STEIN Rep #: [id number] : 1940 77 From: Kulwant Godoy MD Attending Dr: Jhon Garcia MD Status: DIS IN Ordering Dr: Kulwant Godoy MD Date: 07/04/18 Location: [facility] Sex: M C Admitted: 07/02/18 Test Reason [...] normal ECG Confirmed by KULWANT GODOY MD ([id number]), acquisitions editor AUBREY STEIN ([id number]) on 07/11/2018 3:25:54 PM Referred By: Confirmed By:KULWANT GODOY MD 07/11/18 1528 Date Kulwant Godoy MD CC: Saumya Newton MD; Jhon Garcia MD; Kulwant Godoy MD Signed 12 LEAD ELECTROCARDIOGRAM Observed: 07/11/2018 Status: F Source: [place] 3:14 PM [facility] REPOSITORY [facility] Cardiovascular Services [address] [place] [address] 12 Lead EKG 07/05/18 0657 MR#: [id number] Acct: [id number] Name: NORRIS STEIN Rep #: [id number] : 1940 77 From: Kulwant Godoy MD Attending Dr: Jhon Garcia MD Status: DIS IN Ordering Dr: Kulwant Godoy MD Date: 07/05/18 Location: [facility] Sex: M C Admitted: 07/02/18 Test Reason [...] ECG Confirmed by MARCIAL BHANDARI, KULWANT ([id number]), acquisitions editor AUBREY STEIN ([id number]) on 07/11/2018 3:13:42 PM Referred By: RADHA Confirmed By:KULWANT GODOY MD 07/11/18 1513 Date Kulwant Godoy MD CC: Saumya Newton MD; hJon Garcia MD; Kulwant Godoy MD Signed 12 LEAD ELECTROCARDIOGRAM Observed: 07/11/2018 Status: F Source: [place] 3:14 PM [facility] REPOSITORY [facility] Cardiovascular Services [address] [place] [address] 12 Lead EKG 07/05/18 0527 MR#: [id number] Acct: [id number] Name: NORRIS STEIN Rep #: [id number] : 1940 77 From: Kulwant Godoy MD [...] ECG Confirmed by MARCIAL BHANDARI, KULWANT ([id number]), acquisitions editor AUBREY STEIN ([id number]) on 07/11/2018 3:14:25 PM Referred By: RADHA Confirmed By:KULWANT GODOY MD 07/11/18 1514 Date Kulwant Godoy MD CC: Werner Wall MD; Saumya Newton MD; Jhon Garcia MD Signed 12 LEAD ELECTROCARDIOGRAM Observed: 07/11/2018 Status: F Source: [place] 3:13 PM [facility] REPOSITORY [facility] Cardiovascular Services [address] [place] [address] 12 Lead EKG 07/05/18 0856 MR#: [id number] Acct: [id number] Name: NORRIS STEIN Rep #: [id number] : 1940 77 From: Kulwant Godoy MD Attending Dr: Jhon Garcia MD Status: DIS IN Ordering Dr: Kulwant Godoy MD Date: 07/05/18 Location: [facility] Sex: M C Admitted: 07/02/18 Test Reason [...] normal ECG Confirmed by KULWANT GODOY MD ([id number]), acquisitions editor AUBREY STEIN ([id number]) on 07/11/2018 3:13:27 PM Referred By: MARCIAL Confirmed By:KULWANT GODOY MD 07/11/18 1513 Date Kulwant Godoy MD CC: Saumya Newton MD; Jhon Garcia MD; Kulwant Godoy MD Signed 12 LEAD ELECTROCARDIOGRAM Observed: 07/11/2018 Status: F Source: [place] 2:19 PM [facility] REPOSITORY [facility] Cardiovascular Services [address] [place] [address] 12 Lead EKG 07/06/18 0542 MR#: [id number] Acct: [id number] Name: NORRIS STEIN Rep #: [id number] : 1940 77 From: Kulwant Godoy MD Attending Dr: Jhon Garcia MD Status: DIS IN Ordering Dr: Werner Wall MD Date: 07/06/18 Location: [facility] Sex: M C Admitted: 07/02/18 Test Reason : AM EKG Blood Pressure : / mmHG Vent. Rate : 054 BPM Atrial Rate : 054 BPM P-R Int : 172 ms QRS Dur : 092 ms QT Int : 480 ms P-R-T Axes : 063 051 054 degrees QTc Int : 455 ms Sinus bradycardia Otherwise normal ECG Confirmed by KULWANT GODOY MD ([id number]), acquisitions editor AUBREY STEIN ([id number]) on 07/11/2018 2:19:24 PM Referred By: DR GARCIA Confirmed By:KULWANT GODOY MD 07/11/18 1419 Date Kulwant Godoy MD CC: Werner Wall MD; Saumya Newton MD; Jhon Garcia MD Signed 12 LEAD ELECTROCARDIOGRAM Observed: 07/09/2018 Status: F Source: RAAD 3:50 PM [facility] REPOSITORY [facility] Cardiovascular Services [address] [place] [address] 12 Lead EKG 07/03/18 0800 MR#: [id number] Acct: [id number] Name: NORRIS STEIN Rep #: [id number] : 1940 77 From: Kulwant Godoy MD Attending Dr: Jhon Garcia MD Status: DIS IN Ordering Dr: Jhon Garcia MD Date: 07/03/18 Location: [facility] Sex: M C Admitted: 07/02/18 Test Reason : RHYTHM CHANGE Blood Pressure : / mmHG Vent. Rate : 134 BPM Atrial Rate : 144 BPM P-R Int : 000 ms QRS Dur : 080 ms QT Int : 350 ms P-R-T Axes : 000 057 077 degrees QTc Int : 522 ms Atrial flutter Abnormal ECG Confirmed by MARCIAL BHANDARI, KULWANT ([id number]), acquisitions editor AUBREY STEIN ([id number]) on 07/09/2018 3:50:03 PM Referred By: RADHA Confirmed By:KULWANT GODOY MD 07/09/18 1550 Date Kulwant Godoy MD CC: Saumya Newton MD; Jhon Garcia MD Signed 12 LEAD ELECTROCARDIOGRAM Observed: 07/09/2018 Status: F Source: [place] 3:49 PM [facility] REPOSITORY [facility] Cardiovascular Services [address] [place] [address] 12 Lead EKG 07/04/18 0611 MR#: [id number] Acct: [id number] Name: NORRIS STEIN Rep #: [id number] : 1940 77 From: Kulwant Godoy MD Attending Dr: Jhon Garcia MD Status: DIS IN Ordering Dr: Werner Wall MD Date: 07/04/18 Location: [facility] Sex: M C Admitted: 07/02/18 Test Reason [...] Abnormal ECG Confirmed by MARCIAL BHANDARI, KULWANT ([id number]), acquisitions editor AUBREY STEIN ([id number]) on 07/09/2018 3:48:51 PM Referred By: DR GODOY Confirmed By:KULWANT GODOY MD 07/09/18 1548 Date Kulwant Godoy MD CC: Werner Wall MD; Saumya Newton MD; Jhon Garcia MD Signed PROTHROMBIN TIME W/INR Collected: 07/08/2018 Status: F Source: [place] 10:18 AM [facility] REPOSITORY Order Comment: Send Results To: Dr. Godoy Reason for Laboratory Test Coumadin TYPE CODE TESTS RESULT OUT OF RANGE REFERENCE UNITS LAB L300.4150 11.7-14.9 SECONDS High PROTIME 19.1 LAB L300.4200 Normal INR 1.6 Performed By: #### L300.3900 #### [facility] [address] [place], [address] BASIC METABOLIC Collected: 07/08/2018 Status: F Source: [place] PROFILE (BMP) 10:18 AM [facility] REPOSITORY Order Comment: Send Results To: Dr. [...] GAP 8 Performed By: #### L500.2500 #### [facility] [address] [facility] [place], [address] DISCHARGE SUMMARY Observed: 07/06/2018 Status: F Source: [place] 7:39 PM [facility] REPOSITORY [facility] Medical Records Department [address] [place] [address] Discharge Summary 07/06/181927 MR#: [id number] Acct: [id number] Name: NORRIS STEIN Rep #: [id number] : 1940 77 From: Jhon Garcia MD PCP: Aman BHANDARI,Saumya Status: DIS IN Y Location: [place] [address] Discharge Date and Diagnosis Date of Admission: [...] 50 Code Visit Inpatient E AND M: 79256 Disch Hosp 07/06/181938 <Electronically signed by Jhon Garcia MD> Date Jhon Garcia MD Cosigner Signature (if applicable): Date CC: Saumya Newton MD; Jhon Garcia MD Signed DISCHARGE INSTRUCTION Observed: 07/06/2018 Status: F Source: [place] 5:04 PM [facility] REPOSITORY [facility] Medical Records Department [address] [place] [address] Instructions for Home/Discharge Instructions 07/06/18 1658 MR#: [id number] Acct: [id number] Name: NORRIS STEIN Rep #: [id number] : 1940 77 From: Jhon Garcia MD [...] 07/06/2018 Status: F Source: [place] 4:38 PM [facility] REPOSITORY TYPE CODE TESTS RESULT OUT OF REFERENCE UNITS RANGE LAB L501.080 70-110 mg/dL High BEDSIDE GLU 117 Result Comment: MANAGEMENT OF PATIENT CARE PER NURSING PROTOCOL Performed By: #### L501.080 #### [facility] Point of Care [address] [place] [address] PARTIAL THROMBOPLAST Collected: 07/06/2018 Status: F Source: [place] TIME 4:15 PM [facility] REPOSITORY TYPE CODE TESTS RESULT OUT OF RANGE REFERENCE UNITS LAB L300.4310 24.1-36.2 Seconds Normal PTT 29.4 Performed By: #### L300.4310 #### [facility] [address] [place], [address] BEDSIDE GLUCOSE Collected: 07/06/2018 Status: F Source: [place] 11:19 AM [facility] REPOSITORY TYPE CODE TESTS RESULT OUT OF REFERENCE UNITS RANGE LAB L501.080 70-110 mg/dL High BEDSIDE GLU 256 Result Comment: MANAGEMENT OF PATIENT CARE PER NURSING PROTOCOL Performed By: #### L501.080 #### [facility] Point of Care [address] [place] [address] PARTIAL THROMBOPLAST Collected: 07/06/2018 Status: F Source: RAAD TIME 9:37 AM [facility] REPOSITORY Order Comment: Comments: time sensitive heparin drip TYPE CODE TESTS RESULT OUT OF REFERENCE UNITS RANGE LAB L300.4310 24.1-36.2 Seconds High PTT 86.1 Performed By: #### L300.4310 #### [facility] [address] [place], [place], [address] BEDSIDE GLUCOSE Collected: 07/06/2018 Status: F Source: [place] 6:37 AM [facility] REPOSITORY TYPE CODE TESTS RESULT OUT OF REFERENCE UNITS RANGE LAB L501.080 70-110 mg/dL High BEDSIDE GLU 135 Result Comment: MANAGEMENT OF PATIENT CARE PER NURSING PROTOCOL Performed By: #### L501.080 #### [facility] Point of Care [address] [facility] [address] [place], [place] [address] CBC W/DIFF, AUTOMATED Collected: 07/06/2018 Status: F Source: [place] 3:08 AM [facility] REPOSITORY TYPE CODE TESTS RESULT [...] Lymph 1.87 Performed By: #### L100.0100 #### [facility] [address] [place], [address] PROTHROMBIN TIME W/INR Collected: 07/06/2018 Status: F Source: RAAD 3:08 AM [facility] REPOSITORY Order Comment: Comments: time sensitive heparin drip TYPE CODE TESTS RESULT OUT OF RANGE REFERENCE UNITS LAB L300.4150 11.7-14.9 SECONDS High PROTIME 15.5 LAB L300.4200 Normal INR 1.2 Performed By: #### L300.3900, L300.4310 #### [facility] [address] [facility] [address] [place], [place], [address] PARTIAL THROMBOPLAST Collected: 07/06/2018 Status: F Source: RAAD TIME 3:08 AM [facility] REPOSITORY Order Comment: Comments: time sensitive heparin drip TYPE CODE TESTS RESULT OUT OF REFERENCE UNITS RANGE LAB L300.4310 24.1-36.2 Seconds High PTT 79.6 Performed By: #### L300.3900, L300.4310 #### [facility] [address] [facility] [place], [address] BASIC METABOLIC Collected: 07/06/2018 Status: F Source: RAAD PROFILE (BMP) 3:08 AM [facility] REPOSITORY TYPE CODE TESTS RESULT [...] GAP 10 Performed By: #### L500.2500 #### [facility] [address] [place], [address] BEDSIDE GLUCOSE Collected: 07/06/2018 Status: F Source: RAAD 2:39 AM [facility] REPOSITORY TYPE CODE TESTS RESULT OUT OF REFERENCE UNITS RANGE LAB L501.080 70-110 mg/dL High BEDSIDE GLU 152 Result Comment: MANAGEMENT OF PATIENT CARE PER NURSING PROTOCOL Performed By: #### L501.080 #### [facility] Point of Care [address] [place] [address] BEDSIDE GLUCOSE Collected: 07/05/2018 Status: F Source: RAAD 9:45 PM [facility] REPOSITORY TYPE CODE TESTS RESULT OUT OF REFERENCE UNITS RANGE LAB L501.080 70-110 mg/dL High BEDSIDE GLU 119 Result Comment: MANAGEMENT OF PATIENT CARE PER NURSING PROTOCOL Performed By: #### L501.080 #### [facility] Point of Care [address] [place] [address] PARTIAL THROMBOPLAST Collected: 07/05/2018 Status: F Source: RAAD TIME 8:22 PM [facility] REPOSITORY TYPE CODE TESTS RESULT OUT OF REFERENCE UNITS RANGE LAB L300.4310 24.1-36.2 Seconds High alert PTT 97.7 Result Comment: RESULTS CALLED TO JAI U 07/05/18 2120 [address]att. REPORT READ BACK BY SAME . Performed By: #### L300.4310 #### [facility] [address] [place], [address] BEDSIDE GLUCOSE Collected: 07/05/2018 Status: F Source: [place] 5:06 PM [facility] REPOSITORY TYPE CODE TESTS RESULT OUT OF REFERENCE UNITS RANGE LAB L501.080 70-110 mg/dL High BEDSIDE GLU 172 Result Comment: MANAGEMENT OF PATIENT CARE PER NURSING PROTOCOL Performed By: #### L501.080 #### [facility] Point of Care [address] [place] [address] 12 LEAD ELECTROCARDIOGRAM Observed: 07/05/2018 Status: F Source: [place] 2:25 PM [facility] REPOSITORY [facility] Cardiovascular Services [address] [facility] [place] [address] 12 Lead EKG 07/02/18 1037 MR#: [id number] Acct: [id number] Name: NORRIS STEIN Rep #: [id number] : 1940 77 From: Fernando Hendrix MD [...] ECG Confirmed by FERNANDO HENDRIX MD ([id number]), acquisitions editor FRANCISCO JAVIER FRAGOSO ([id number]) on 07/05/2018 2:25:02 PM Referred By: GO Confirmed By:FERNADNO HENDRIX MD 07/05/18 1425 Date Fernando Hendrix MD CC: Saumya Newton MD; Jhon Garcia MD; Elroy Zhong DO Signed PARTIAL THROMBOPLAST Collected: 07/05/2018 Status: F Source: RAAD TIME 1:45 PM [facility] REPOSITORY TYPE CODE TESTS RESULT OUT OF REFERENCE UNITS RANGE LAB L300.4310 24.1-36.2 Seconds High alert PTT 241.0 Result Comment: CRITICAL VALUE VERIFIED. CALLED TO JOSHUA PARTIDA 07/05/18 1415 Bernardo Szymanski. RESULTS READ BACK BY SAME. Performed By: #### L300.4310 #### [facility] [address] [facility] [address] BEDSIDE GLUCOSE Collected: 07/05/2018 Status: F Source: RAAD 11:51 AM [facility] REPOSITORY TYPE CODE TESTS RESULT OUT OF REFERENCE UNITS RANGE LAB L501.080 70-110 mg/dL High BEDSIDE GLU 167 Result Comment: MANAGEMENT OF PATIENT CARE PER NURSING PROTOCOL Performed By: #### L501.080 #### [facility] Point of Care [address] [facility] [place], [place] [address] BEDSIDE GLUCOSE Collected: 07/05/2018 Status: F Source: RAAD 7:10 AM [facility] REPOSITORY TYPE CODE TESTS RESULT OUT OF REFERENCE UNITS RANGE LAB L501.080 70-110 mg/dL High BEDSIDE GLU 156 Result Comment: MANAGEMENT OF PATIENT CARE PER NURSING PROTOCOL Performed By: #### L501.080 #### [facility] Point of Care [address] [facility]. [place], [place] [address] CBC-COMPLETE BLOOD CNT Collected: 07/05/2018 Status: F Source: RAAD NO DIFF 4:15 AM [facility] REPOSITORY TYPE CODE TESTS RESULT [...] MPV 10.4 Performed By: #### L100.0500 #### [facility] [address] [place], [place], [address] PROTHROMBIN TIME W/INR Collected: 07/05/2018 Status: F Source: EUCL[place] 4:15 AM [facility] REPOSITORY TYPE CODE TESTS RESULT OUT OF RANGE REFERENCE UNITS LAB L300.4150 11.7-14.9 SECONDS Normal PROTIME 14.8 LAB L300.4200 Normal INR 1.2 Performed By: #### L300.3900 #### [facility] [address] [place], [address] BASIC METABOLIC Collected: 07/05/2018 Status: F Source: RAAD PROFILE (BMP) 4:15 AM [facility] REPOSITORY TYPE CODE TESTS RESULT [...] 13 Performed By: #### L500.2500, L500.4100 #### [facility] [address] [facility] [place], [address] LIPID PROFILE Collected: 07/05/2018 Status: F Source: [place] 4:15 AM [facility] REPOSITORY TYPE CODE TESTS RESULT [...] 19 Performed By: #### L500.2500, L500.4100 #### [facility] [address] [facility] [place], [address] PARTIAL THROMBOPLAST Collected: 07/05/2018 Status: F Source: [place] TIME 4:15 AM [facility] REPOSITORY TYPE CODE TESTS RESULT OUT OF RANGE REFERENCE UNITS LAB L300.4310 24.1-36.2 Seconds Normal PTT 24.1 Performed By: #### L300.4310 #### [facility] [address] [place], [place], [address] BEDSIDE GLUCOSE Collected: 07/05/2018 Status: F Source: RAAD 2:52 AM [facility] REPOSITORY TYPE CODE TESTS RESULT OUT OF REFERENCE UNITS RANGE LAB L501.080 70-110 mg/dL High BEDSIDE GLU 184 Result Comment: MANAGEMENT OF PATIENT CARE PER NURSING PROTOCOL Performed By: #### L501.080 #### [facility] Point of Care [address] [place] [address] BEDSIDE GLUCOSE Collected: 07/04/2018 Status: F Source: RAAD 9:36 PM [facility] REPOSITORY TYPE CODE TESTS RESULT OUT OF REFERENCE UNITS RANGE LAB L501.080 70-110 mg/dL High BEDSIDE GLU 142 Result Comment: MANAGEMENT OF PATIENT CARE PER NURSING PROTOCOL Performed By: #### L501.080 #### [facility] Point of Care [address] [place] [address] BEDSIDE GLUCOSE Collected: 07/04/2018 Status: F Source: RAAD 4:42 PM [facility] REPOSITORY TYPE CODE TESTS RESULT OUT OF REFERENCE UNITS RANGE LAB L501.080 70-110 mg/dL High BEDSIDE GLU 329 Result Comment: MANAGEMENT OF PATIENT CARE PER NURSING PROTOCOL Performed By: #### L501.080 #### [facility] Point of Care [address] [place] [address] BEDSIDE GLUCOSE Collected: 07/04/2018 Status: F Source: RAAD 12:10 PM [facility] REPOSITORY TYPE CODE TESTS RESULT OUT OF REFERENCE UNITS RANGE LAB L501.080 70-110 mg/dL High BEDSIDE GLU 190 Result Comment: MANAGEMENT OF PATIENT CARE PER NURSING PROTOCOL Performed By: #### L501.080 #### [facility] Point of Care [address] [place] [address] ACT ACTIVATED CLOTTING Collected: 07/04/2018 Status: F Source: RAAD TIME 8:42 AM [facility] REPOSITORY TYPE CODE TESTS RESULT OUT OF RANGE REFERENCE UNITS LAB L9100.0100 74-137 sec High ACTk CLOT 235 TIME Performed By: #### L9100.0100 #### [facility] Point of Care [address] [place] [address] BEDSIDE GLUCOSE Collected: 07/04/2018 Status: F Source: RAAD 6:51 AM [facility] REPOSITORY TYPE CODE TESTS RESULT OUT OF REFERENCE UNITS RANGE LAB L501.080 70-110 mg/dL High BEDSIDE GLU 209 Result Comment: MANAGEMENT OF PATIENT CARE PER NURSING PROTOCOL Performed By: #### L501.080 #### [facility] Point of Care [address] [place] [address] BASIC METABOLIC Collected: 07/04/2018 Status: F Source: RAAD PROFILE (BMP) 5:00 AM [facility] REPOSITORY TYPE CODE TESTS RESULT [...] GAP 9 Performed By: #### L500.2500 #### [facility] [address] [place], [place], [address] CBC W/DIFF, AUTOMATED Collected: 07/04/2018 Status: F Source: EUCLID 5:00 AM [facility] REPOSITORY TYPE CODE TESTS RESULT [...] Lymph 0.80 Performed By: #### L100.0100 #### [facility] [address] [facility] [place], [address] PROTHROMBIN TIME W/INR Collected: 07/04/2018 Status: F Source: RAAD 5:00 AM [facility] REPOSITORY TYPE CODE TESTS RESULT OUT OF RANGE REFERENCE UNITS LAB L300.4150 11.7-14.9 SECONDS Normal PROTIME 13.6 LAB L300.4200 Normal INR 1.0 Performed By: #### L300.3900, L300.4310 #### [facility] [address] [place], [address] PARTIAL THROMBOPLAST Collected: 07/04/2018 Status: F Source: RAAD TIME 5:00 AM [facility] REPOSITORY TYPE CODE TESTS RESULT OUT OF RANGE REFERENCE UNITS LAB L300.4310 24.1-36.2 Seconds Normal PTT 28.3 Performed By: #### L300.3900, L300.4310 #### [facility] [address] [place], [address] CHEST 1 VIEW Observed: 07/04/2018 Status: F Source: RAAD (PORTABLE) 1:36 AM [facility] REPOSITORY [facility] Imaging Services [address] [place] [address] Chest 1 View (Portable) MR#: [id number] Acct: [id number] Name: NORRIS STEIN Rep #: [id number] : 1940 M 77 From: Bernardo Juarez MD PCP: Saumya Newton MD Status: ADM IN Study: Chest 1 View (Portable) Date of Exam: 07/04/18 Exam# [id number] Ordering Dr: Jonnathan Watson MD HISTORY: SOBShort [...] CC: Jonnathan Watson MD; Saumya Newton MD Knowledge Manager: Signed URINALYSIS, ROUTINE Collected: 07/03/2018 Status: F Source: RAAD (DIPSTICK) 11:45 PM [facility] REPOSITORY Order Comment: Order Date: 07/03/18 How [...] ESTERASE Negative Performed By: #### L400.2010 #### [facility] [address] [place], [address] BEDSIDE GLUCOSE Collected: 07/03/2018 Status: F Source: RAAD 9:29 PM [facility] REPOSITORY TYPE CODE TESTS RESULT OUT OF REFERENCE UNITS RANGE LAB L501.080 70-110 mg/dL High BEDSIDE GLU 153 Result Comment: MANAGEMENT OF PATIENT CARE PER NURSING PROTOCOL Performed By: #### L501.080 #### [facility] Point of Care [address] [place] [address] CONSULTATION Observed: 07/03/2018 Status: F Source: RAAD 7:33 PM [facility] REPOSITORY [facility] Medical Records Department [address] [place] [address] Consultation 07/03/18 1917 MR#: [id number] Acct: [id number] Name: NORRIS STEIN Rep #: [id number] : 1940 77 From: Kulwant Godoy MD PCP: Saumya Newton MD Status: ADM IN Y Location: [place] [address] Problem List (1) Atrial fibrillation and flutter [...] atrial fibrillation and subsequently referred to the [facility] for further evaluation care. Based upon [...] % (Auto) 61.5, Lymph % (Auto) 27.9, [place] % (Auto) 6.8, Eos % (Auto) 3.4, [...] 07/03/2018 Status: F Source: RAAD 4:12 PM [facility] REPOSITORY TYPE CODE TESTS RESULT OUT OF REFERENCE UNITS RANGE LAB L501.080 70-110 mg/dL High BEDSIDE GLU 116 Result Comment: MANAGEMENT OF PATIENT CARE PER NURSING PROTOCOL Performed By: #### L501.080 #### [facility] Point of Care [address] [place] [address] ECHOCARDIOGRAM COMPLETE Observed: 07/03/2018 Status: F Source: EUCLID 1:04 PM [facility] REPOSITORY [facility] Cardiovascular Services [address] [place] [address] Echo Complete W/ Contrast 07/03/18 1031 MR#: [id number] Acct: [id number] Name: NORRIS STEIN Rep #: [id number] : 1940 77 From: Werner Wall MD Attending Dr: Jhon Garcia MD Status: ADM IN Ordering Dr: Jhon Garcia MD Date: 07/02/18 Location: [facility] Sex: M C Admitted: 07/02/18 Reason For [...] Trena Bueno, DOROTHY, RVT 07/03/18 1304 Date Wenrer Wall MD CC: Saumya Newton MD; Jhon Garcia MD Date Dictated: 07/03/18 1031 Date Transcribed: 07/03/18 1304 Knowledge Manager: Signed BEDSIDE GLUCOSE Collected: 07/03/2018 Status: F Source: RAAD 12:28 PM [facility] REPOSITORY TYPE CODE TESTS RESULT OUT OF REFERENCE UNITS RANGE LAB L501.080 70-110 mg/dL High BEDSIDE GLU 154 Result Comment: MANAGEMENT OF PATIENT CARE PER NURSING PROTOCOL Performed By: #### L501.080 #### [facility] Point of Care [address] [place], [place] [address] BEDSIDE GLUCOSE Collected: 07/03/2018 Status: F Source: RAAD 6:39 AM [facility] REPOSITORY TYPE CODE TESTS RESULT OUT OF REFERENCE UNITS RANGE LAB L501.080 70-110 mg/dL High BEDSIDE GLU 112 Result Comment: MANAGEMENT OF PATIENT CARE PER NURSING PROTOCOL Performed By: #### L501.080 #### [facility] Point of Care [address] [place] [address] BASIC METABOLIC Collected: 07/03/2018 Status: F Source: RAAD PROFILE (BMP) 5:08 AM [facility] REPOSITORY TYPE CODE TESTS RESULT [...] GAP 5 Performed By: #### L500.2500 #### [facility] [place], [address] CBC W/DIFF, AUTOMATED Collected: 07/03/2018 Status: F Source: EUCLID 5:08 AM [facility] REPOSITORY TYPE CODE TESTS RESULT [...] Lymph 1.89 Performed By: #### L100.0100 #### [facility] [address] [place], [address] BEDSIDE GLUCOSE Collected: 07/02/2018 Status: F Source: EUCLID 9:46 PM [facility] REPOSITORY TYPE CODE TESTS RESULT OUT OF REFERENCE UNITS RANGE LAB L501.080 70-110 mg/dL High BEDSIDE GLU 121 Result Comment: MANAGEMENT OF PATIENT CARE PER NURSING PROTOCOL Performed By: #### L501.080 #### [facility] Point of Care [address] [place] [address] HISTORY AND PHYSICAL Observed: 07/02/2018 Status: F Source: EUCLID EXAM 5:19 PM [facility] REPOSITORY [facility] Medical Records Department [address] [place] [address] History and Physical 07/02/18 1654 MR#: [id number] Acct: [id number] Name: NORRIS STEIN Rep #: [id number] : 1940 77 From: Jhon Garcia MD PCP: Aman BHANDARI,Saumya Status: ADM IN Location: [place] [id number] ADDENDUM by Jhon Garcia MD on 07/02/18 [...] Cardiac Code Visit Inpatient E AND M: 01278 Init Hosp L3 07/02/18 1717 <Electronically signed by Jhon Garcia MD> Date Jhon Garcia MD Cosigner Signature: Date (if applicable) CC: Saumya Newton MD; Jhon Garcia MD Signed CBC W/DIFF, AUTOMATED Collected: 07/02/2018 Status: F Source: RAAD 2:05 PM [facility] REPOSITORY TYPE CODE TESTS RESULT [...] Lymph 1.65 Performed By: #### L100.0100 #### [facility] [address] [facility] [place], [address] EMERGENCY DEPARTMENT Observed: 07/02/2018 Status: F Source: [place] SUMMARY 12:31 PM [facility] REPOSITORY [facility] Medical Records Department [address] [place] [address] Emergency Department Summary 07/02/18 1228 MR#: [id number] Acct: [id number] Name: NORRIS STEIN Rep #: [id number] : 1940 77 From: Elroy Zhong DO [...] new onset] This note was generated with Signicat dictation software. It may contain incorrect words, [...] your Primary Care Provider. Call [facility] ([phone]) or report to the closest Emergency Room. Call 911 if necessary. 07/02/18 1231 <Electronically signed by Elroy Zhong DO> Date Elroy Zhong DO Cosigner Signature (If Indicated): Date CC: Saumya Newton MD CHEST 1 VIEW Observed: 07/02/2018 Status: F Source: RAAD (PORTABLE) 10:48 AM [facility] REPOSITORY [facility] Imaging Services [address] [place] [address] Chest 1 View (Portable) MR#: [id number] Acct: [id number] Name: NORRIS STEIN Rep #: [id number] : 1940 M 77 From: Antonio Corrigan MD PCP: Saumya Newton MD Status: REG ER Study: Chest 1 View (Portable) Date of Exam: 07/02/18 Exam# [id number] Ordering Dr: Elroy Zhong DO STUDY: X-RAY [...] CC: Saumya Newton MD; Elroy Zhong DO Knowledge Manager: Signed CBC W/DIFF, AUTOMATED Collected: 07/02/2018 Status: F Source: RAAD 10:40 AM [facility] REPOSITORY TYPE CODE TESTS RESULT [...] Lymph 1.23 Performed By: #### L100.0100 #### [facility] [address] [place], [place], [address] BASIC METABOLIC Collected: 07/02/2018 Status: F Source: EU[place] PROFILE ([facility]) 10:40 AM [facility] REPOSITORY TYPE CODE TESTS RESULT [...] GAP Performed By: #### L500.2500, L501.4010 #### [facility] [address] [facility] [place], [place], [address] TROPONIN-I Collected: 07/02/2018 Status: F Source: EU[place] 10:40 AM [facility] REPOSITORY TYPE CODE TESTS RESULT OUT OF RANGE REFERENCE UNITS LAB L501.4010 <0.045 ng/mL Normal < 0.015 TROPONIN-I Result Comment: TROPONIN-I EXPECTED VALUES <0.045 Negative 0.045 - 0.590 Consistent with Cardiac Damage > OR = 0.600 Critical Value Not every elevated troponin is indicative of CT. These values should be used with clinical judgement in examining the patient's clinical picture for diagnosis. To establish a diagnosis of CT versus myocardial injury, there must be a demonstrated rise and/or fall in the troponin values, in addition to ischemic symptoms, EKG changes, new regional wall motion abnormality, and/or angiographical evidence. PLEASE NOTE: REFERENCE RANGES EDITED 17 Performed By: #### L500.2500, L501.4010 #### [facility] [address] [place], [address] PROTHROMBIN TIME W/INR Collected: 07/02/2018 Status: F Source: RAAD 10:40 AM [facility] REPOSITORY TYPE CODE TESTS RESULT OUT OF RANGE REFERENCE UNITS LAB L300.4150 11.7-14.9 SECONDS Normal PROTIME 13.9 LAB L300.4200 Normal INR 1.1 Performed By: #### L300.3900, L300.4310 #### [facility] [address] [place], [address] PARTIAL THROMBOPLAST Collected: 07/02/2018 Status: F Source: RAAD TIME 10:40 AM [facility] REPOSITORY TYPE CODE TESTS RESULT OUT OF RANGE REFERENCE UNITS LAB L300.4310 24.1-36.2 Seconds Normal PTT 28.6 Performed By: #### L300.3900, L300.4310 #### [facility] [address] [place], [address] BNP,B-TYPE NATRIURETIC Collected: 07/02/2018 Status: F Source: RAAD PEPTIDE 10:40 AM [facility] REPOSITORY TYPE CODE TESTS RESULT OUT OF RANGE REFERENCE UNITS LAB L503.6620 0-100 pg/mL High B-TYPE 125.0 ELÍAS PEP Performed By: #### L503.6620 #### [facility] [address] [place], [address] THYROID STIM HORMONE Collected: 07/02/2018 Status: F Source: RAAD (TSH) 10:40 AM [facility] REPOSITORY TYPE CODE TESTS RESULT OUT OF RANGE REFERENCE UNITS LAB L501.9520 0.358-3.74 uIU/mL High TSH 5.16 Performed By: #### L501.9520 #### [facility] [address] [place], [address] ECG COMPLETE W Observed: 07/02/2018 Status: F Source: [place] INTERPRETATION 10:00 AM [facility] REPOSITORY NAME : NORRIS STEIN PID : [id number] : 1940 Gender : Male Race : ORD : [id number] Procedure Date : Jul 02 2018 10:00:23 Edit Date : Jul 03 2018 16:36:48 Diagnosis:ATRIAL FLUTTER WITH VARIABLE A-V BLOCK ST ELEVATION CONSIDER INFERIOR INJURY OR ACUTE INFARCT ACUTE CT / STEMI ABNORMAL ECG Confirmed by SANFORD MADRIGAL D.O. ([id number]) on 07/03/2018 4:36:20 PM Ventricular Rate : 133 BPM Atrial Rate : 293 BPM QRS Duration : 90 ms Q-T Interval : 356 ms QTC Calculation(Bezet) : 529 ms R [place] : 66 degrees T [place] : 76 degrees Test Reason : Location : 185 : [facility] Overread By : SANFORD MADRIGAL D.O. Edited By : SANFORD MADRIGAL D.O. Referred By : ANAM STRICKLAND Acquired by : BOBBY CEDILLO Observed: 07/02/2018 Status: COMPLETED Source: [place] 9:29 AM [facility] [place] REPOSITORY HNO ID: [id number] Author: Anam (Sand Cutter) Em Service: (none) Author Type: Nurse Practitioner [...] patient. Squad was called, report called to [facility]. Patient transported in stable condition. Anam Strickland APRN.CNP CNOV Observed: 07/02/2018 Status: COMPLETED Source: [place] 9:20 AM [facility] REPOSITORY Office Visit (FAMPWS) NORRIS STEIN ([id number]) 1940 M Date Time Provider Department 07/02/18 9:20 AM [facility] visit today, we recorded [...] Laterality Date - COLONOSCOP W/ OR W/O [facility] SPEC 04/08/15 Colonoscopy Family History [...] patient. Squad was called, report called to [facility]. Patient transported in stable condition. Anam Strickland APRN.[place] Referring Provider: SELF [200] Allergies As of Date: 07/02/2018 (No Known Allergies) Date Reviewed: 07/02/2018 Reviewed by: Analisa Cedillo High Heel Builder - Fully Assessed Reason for Visit: Breathing Problem [17] Primary Visit Diagnosis:Orthopnea [R06.01] Other Visit Diagnoses:[place]OD (dyspnea on exertion) [R06.09] Leg swelling [M79.89] Order(s):ECG COMPLETE W INTERPRETATION [ECG01] Order #: [id number] FUTURE Prescriptions as of 07/02/2018 Sig: CODEINE [...] on 07/02/18 Observed: 05/01/2018 Status: F Source: [place] URINE CULTURE 8:41 AM [facility] REPOSITORY Sp. 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 No further workup. --> ABNORMAL ALERT 50,000 - <100,000 CFU/ml --> ABNORMAL ALERT Lactose negative gram negative bacilli --> ABNORMAL ALERT Insignificant colony count. No further workup. --> ABNORMAL ALERT Performed By: #### URCUL #### [facility] [address] [place], [place] [address] PROGRESS Observed: 05/01/2018 Status: COMPLETED Source: [place] 8:25 AM [facility] REPOSITORY HNO ID: [id number] Author: Anam ([place]) Em Service: (none) Author [...] No fevers or chills. Is taking an wqhs-neo-qatjeop Cystek from a local pharmacy. Does have a prior history of UTIs. Past medical history, appointments, medications, allergies reviewed. Previous Medical History PAST MEDICAL HISTORY Diagnosis Date - DM (diabetes mellitus) (HCC) - Essential hypertension, benign - Other and unspecified hyperlipidemia - Other specified family circumstances Previous Surgical History PAST SURGICAL HISTORY Procedure Laterality Date - COLONOSCOP W/ OR W/O [facility] SPEC 04/08/15 Colonoscopy Family History [...] Neg neg Ketones, Urine Neg neg Specific [place], Ur 1.005 - 1.030 1.010 Hemoglobin/Blood,Ur Neg [...] MG TABLET follow-up as needed. Anam Strickland APRN.FORESTRY INSTRUCTOR CNOV Observed: 05/01/2018 Status: COMPLETED Source: [place] 8:20 AM [facility] REPOSITORY Office Visit (FAMPWS) NORRIS STEIN ([id number]) 1940 M Date Time Provider Department 05/01/18 8:20 AM ANAM STRICKLAND ([facility]) FAMPWS During your visit today, we recorded [...] No fevers or chills. Is taking an boop-dqo-mxuwlkt Cystek from a local pharmacy. Does have a prior history of UTIs. Past medical history, appointments, medications, allergies reviewed. Previous Medical History PAST MEDICAL HISTORY Diagnosis Date - DM (diabetes mellitus) (HCC) - Essential hypertension, benign - Other and unspecified hyperlipidemia - Other specified family circumstances Previous Surgical History PAST SURGICAL HISTORY Procedure Laterality Date - COLONOSCOP W/ OR W/O [facility] SPEC 04/08/15 Colonoscopy Family History [...] Neg neg Ketones, Urine Neg neg Specific [place], Ur 1.005 - 1.030 1.010 Hemoglobin/Blood,Ur Neg [...] MG TABLET follow-up as needed. Anam Strickland APRN.FORESTRY INSTRUCTOR Referring Provider: SELF [200] Allergies As of Date: 05/01/2018 (No Known Allergies) Date Reviewed: 02/05/2018 Reviewed by: Lamar Rivero Ma - Fully Assessed Reason for Visit: UTI [116] Cmt: x 4 days - burning with urination - taking cystek - no back pain Primary Visit Diagnosis:Dysuria [R30.0] Order(s):UA DIP B/O [3960342] Order #: [id number] URINE CULTURE [SQURCUL] Order #: [id number] sulfamethoxazole-trimethoprim (BACTRIM DS) 800-160 mg per tabletTake [...] 05/01/18 CNCJim Observed: 02/11/2018 Status: COMPLETED Source: [place] 12:00 AM [facility] [place] REPOSITORY Letter Text [facility] [address] [place] [phone] Norris Stein [address] [facility] [address] Clinic #: [id number] 02/11/2018 Below is a message concerning your lab results. If you should have any questions please feel free to contact the office at [phone] : Please inform patient that his Hgb A1c improved to 6.7%. Cholesterol panel looks good. Kidney function is stable. Continue on current dose of medications, follow up in 6 months with labs prior. ? Anam Strickland APRN.FORESTRY INSTRUCTOR Thank you Sincerely Your [facility] CNOV Observed: 02/05/2018 Status: COMPLETED Source: [place] 9:40 AM [facility] REPOSITORY Office Visit (FAMPWS) NORRIS STEIN ([id number]) 1940 M Date Time Provider Department 02/05/18 9:40 AM [facility] During your visit today, we recorded [...] good with hip operation. Questions about Dr. aBrber. Past medical history, appointments, medications, allergies reviewed. Previous Medical History PAST MEDICAL HISTORY Diagnosis Date - Essential hypertension, benign - Other and unspecified hyperlipidemia - Other specified family circumstances Previous Surgical History PAST SURGICAL HISTORY Procedure Laterality Date - COLONOSCOP W/ OR W/O [facility] SPEC 04/08/15 Colonoscopy Family History [...] 2018 9:34 AM. Referring Provider: SAUMYA NEWTON [[id number]] Allergies As of Date: 02/05/2018 (No Known [...] 11 COMP METABOLIC PANEL [SQCMP] Order #: [id number] FUTURE LIPID PANEL BASIC [SQLIPB] Order #: [id number] FUTURE HGB A1C [ZGQIQ4M] Order #: [id number] FUTURE Prescriptions as of 02/05/2018 Sig: CODEINE [...] 02/05/18 PROGRESS Observed: 02/05/2018 Status: COMPLETED Source: [place] 9:34 AM [facility] REPOSITORY O ID: [id number] Author: Saumya Newton Service: (none) Author Type: [...] Laterality Date - COLONOSCOP W/ OR W/O [facility] SPEC 04/08/15 Colonoscopy Family History [...] METABOLIC PANEL Collected: 02/05/2018 Status: F Source: [place] 8:47 AM [facility] REPOSITORY TYPE [...] mg/dL Glucose High 126 Result Comment: The Indian Diabetes Association (ADA) provides guidance for cutoff [...] Standards of Medical Care in Diabetes 2016, Indian Diabetes Association. Diabetes Care. 2016.39(Suppl 1). LAB [...] Performed By: #### CMP, LIPB, HBA1C #### [facility] [place] [address] [place], [place] [address] LIPID PANEL, BASIC Collected: 02/05/2018 Status: F Source: [place] 8:47 AM [facility] [place] REPOSITORY TYPE CODE TESTS RESULT OUT OF [...] Desk Reference: National Heart, Lung, and Blood [place]. National Institutes of Health. 2001: NIH Publication No. 01-3305. 2. An International Atherosclerosis Society position paper: global recommendations for the management of dyslipidemia: executive summary, Atherosclerosis. 2014: 232(2):410-413. Performed By: #### CMP, LIPB, HBA1C #### [facility] [place] [address] [place], [place] [address] HEMOGLOBIN A1C Collected: 02/05/2018 Status: F Source: [place] 8:47 AM [facility] REPOSITORY TYPE CODE TESTS RESULT OUT OF REFERENCE UNITS RANGE LAB HGBA1C 4.3-5.6 % High Hemoglobin A1c 6.7 LAB HBA0 mg/dL Est. Average Glucose 146 Result Comment: eAG: (Estimated average glucose) is a calculated value from HgbA1c and is security systems sales representative of the average blood glucose level in the last 2-3 month period. Performed By: #### CMP, LIPB, HBA1C #### [facility] [place] [address] [place], [place] [address] CNOV Observed: 11/09/2017 Status: COMPLETED Source: [place] 3:00 PM [facility] REPOSITORY Office Visit (FAMPWS) NORRIS STEIN ([id number]) 1940 M Date Time Provider Department 11/09/17 3:00 PM ANAM STRICKLAND ([facility]) FAMPWS During your visit today, we recorded [...] Laterality Date - COLONOSCOP W/ OR W/O [facility] SPEC 04/08/15 Colonoscopy Family History [...] occurs. Follow up as needed. Anam Strickland APRN.FORESTRY INSTRUCTOR Referring Provider: SELF [200] Allergies As of Date: 11/09/2017 (No Known Allergies) Date Reviewed: 11/09/2017 Reviewed by: Analisa Cedillo High Heel Builder - Fully Assessed Reason for Visit: Rash [...] 11/09/17 PROGRESS Observed: 11/09/2017 Status: COMPLETED Source: [place] 2:55 PM [facility] [place] REPOSITORY O ID: [id number] Author: Anam Strickland Service: (none) Author Type: [...] Laterality Date - COLONOSCOP W/ OR W/O [facility] SPEC 04/08/15 Colonoscopy Family History [...] occurs. Follow up as needed. Anam Strickland, NET DEVELOPER SOFTWARE ENGINEER C.FORESTRY INSTRUCTOR ALLERGIES ALLERGIES DATE TYPE / CODE NAME / CODE REACTION SEVERITY SOURCE 07/29/2018 Drug No Known Unknown [facility] Allergy/416 Allergies/A47539 [facility] 384855(SNOM 0388(RXNORM) Repository ED CT) Drug NO KNOWN [facility] Class/71656 ALLERGIES [place] 1003(SNOMED Repository CT) ENCOUNTERS ENCOUNTERS ADMIT/DISCHARGE ACCOUNT ADMITTING ENCOUNTER LOCATION SOURCE NUMBER CLASS 08/23/2018/08/26/19 [id number] Ambulatory [address] Repository 08/23/2018 [id number] Ambulatory [facility] ing:LAB Repository 08/16/2018 [id number] Ambulatory [facility] ing:LAB Repository 08/15/2018/08/16/19 [id number] Ambulatory [address] Repository 08/15/2018 [id number] [facility] ing:LAB Repository 08/15/2018/08/15/19 [id number] Ambulatory BMSBuilding:B Raad [address] [place] Repository 08/14/2018 [id number] Ambulatory [facility] ing:CR Repository 08/14/2018 [id number] Ambulatory BMSBuilding:W Raad [facility] Repository 08/13/2018 [id number] Ambulatory [facility] Hospital ing:PSN Repository 08/12/2018 [id number] Ambulatory [facility] ing:CT Repository 08/12/2018/08/14/19 [id number] Ambulatory [address] Repository 08/09/2018/08/12/19 [id number] Ambulatory [address] Repository 08/09/2018 [id number] Ambulatory [facility] Hospital ing:LAB Repository 08/09/2018/08/12/19 [id number] Ambulatory [address] Repository 07/31/2018/08/02/20 [id number] Ambulatory [address] Repository 07/29/2018/07/29/20 [id number] Ambulatory BMSBuilding:B [place] 18 [place].[facility] Repository 07/29/2018 [id number] Ambulatory BMSBuilding:B Raad [place].[facility] Repository 07/25/2018/07/25/20 [id number] Ambulatory [address] Repository 07/25/2018/07/25/20 [id number] Ambulatory [address] Repository 07/25/2018/07/26/20 [id number] Ambulatory [address] Repository 07/22/2018 [id number] Ambulatory [facility] Hospital ing:LABSPEC Repository 07/22/2018/07/22/20 [id number] Ambulatory [address] Repository 07/18/2018 [id number] Ambulatory [facility] ing:CR Repository 07/18/2018/07/18/20 [id number] Ambulatory [address] HospitalBuild Hospital ing:LAB Repository 07/16/2018/07/17/20 [id number] Ambulatory [address] Repository 07/03/2018/07/03/20 [id number] Ambulatory [address] Repository 07/02/2018/07/06/20 [id number] Radha, Inpatient Raad Farfan [facility] Hospital ing:PCURoom: Repository [id number]: 1 07/02/2018 [id number] Zacharytsonis, Ambulatory BMSBuilding:Antoinette Farfan MS.[facility] Repository 07/02/2018 [id number] [place], Ambulatory BMSBuilding:Antoinette Farfan MS.[facility] Repository 07/02/2018 [id number] [place], Ambulatory BMSBuilding:Antoinette Farfan MS.[facility] Repository 07/02/2018 [id number] [place]onis, Ambulatory BMSBuilding:Antoinette Farfan MS.[facility] Repository 07/02/2018 [id number] Zacharytsonis, Ambulatory BMSBuilding:Antoinette Farfan MS.[facility] Repository 07/02/2018 [id number] Kotsonis, Ambulatory BMSBuilding:Antoinette Farfan MS.[facility] Repository 07/02/2018 [id number] [place], Ambulatory BMSBuilding:Antoinette Farfan MS.[facility] Repository 07/02/2018 [id number] [place], Ambulatory BMSBuilding:Antoinette Farfan MS.[facility] Repository 07/02/2018 [id number] [place], Ambulatory BMSBuilding:Antoinette Farfan MS.CF.[facility] Repository 07/02/2018/07/03/20 [id number] Ambulatory [address] Repository 05/01/2018/05/02/20 [id number] Ambulatory [address] Repository 02/05/2018/02/08/20 [id number] Ambulatory [address] Repository 02/05/2018/02/06/20 [id number] Ambulatory [address] Repository 11/09/2017/11/13/[id number] Repository PAYERS PAYERS ENCOUNTER GUARANTOR PAYER SUBSCRIBER SOURCE 08/23/2018 NORRIS Giraldo Primary NORRIS Shankar [id number] Insurance:ROMAN CATHOLIC MILLERDOB: [facility] [id number]: Repository [id number]: 330 [id number] [phone] () Date: [address] [address]ZH: 08/23/2018 Secondary NOT GIVENUNK [place] Insurance:SELF PAY [facility] Number: Effective Repository Date:2018-08-23 08/16/2018 NORRIS Giraldo Primary NORRIS Shankar [id number] Insurance:ROMAN CATHOLIC MILLERDOB: [facility] [id number], [place] GROU[place]olicy Number: Repository [id number]: 330 [id number] [phone] (HP) Date: [address] [address]EV: 08/16/2018 Secondary NOT GIVENUNK [place] Insurance:SELF PAY [facility] Number: Effective Repository Date:2018-08-16 08/15/2018 NORRIS Giraldo Primary NORRIS Shankar [id number] Insurance:ROMAN CATHOLIC MILLERDOB: [facility] [id number], [place] GROUPPolicy Number: Repository [id number]: 330 [id number] [phone] () Date: [address] [address]SF: 08/15/2018 Secondary NOT GIVENUNK [place] Insurance:SELF PAY [facility] Number: Effective Repository Date:2018-08-15 08/15/2018 NORRIS Giraldo Primary NORRIS Shankar [id number] Insurance:ROMAN CATHOLIC MILLERDOB: [facility] [id number], [place] GROUPPolic Number: Repository [id number]: 330 [id number] [phone] (HP) Date: [facility] [address] [place] [address] 569[address]NF: 08/15/2018 Secondary NOT GIVENUNK Raad Insurance:SELF PAY [facility] Number: Effective Repository Date:2018-08-14 08/14/2018 NORRIS J Primary NORRIS J [place] [id number] Insurance:ROMAN CATHOLIC MILLERDOB: [facility] [id number], [place] GROUPPolicy Number: Repository [id number]: 330 [id number] [phone] (HP) Date: [address] [address]QW: 08/14/2018 Secondary NOT GIVENUNK [place] Insurance:SELF PAY [facility] Number: Effective Repository Date:2018-07-18 08/14/2018 NORRIS J Primary NORRIS J Raad [id number] Insurance:ROMAN CATHOLIC MILLERDOB: [facility] [id number], [place] GROUPPolicy Number: Repository [id number]: 330 [id number] [phone] (HP) Date: [address] [address]KD: 08/14/2018 Secondary NOT GIVENUNK [place] Insurance:SELF PAY [facility] Number: Effective Repository Date:2018-08-14 08/13/2018 NORRIS J Primary NORRIS J [place]ley [id number] Insurance:ROMAN CATHOLIC MILLERDOB: [facility] [id number], [place] GROUPPolicy Number: Repository [id number]: 330 [id number] [phone] (HP) Date: [address] [address]RO: 08/13/2018 Secondary NOT GIVENUNK Raad Insurance:SELF PAY [facility] Number: Effective Repository Date:2018-08-12 08/12/2018 NORRIS Giraldo Primary NORRIS J Raad [id number] Insurance:ROMAN CATHOLIC MILLERDOB: [facility] [id number], [place] GROUPPolicy Number: Repository [id number]: 330 [id number] [phone] (HP) Date: [address] [address]AH: 08/12/2018 Secondary NOT GIVENUNK [place] Insurance:SELF PAY [facility] Number: Effective Repository Date:2018-08-12 08/09/2018 NORRIS Giraldo Primary NORRIS Giraldo Raad [id number] Insurance:ROMAN CATHOLIC MILLERDOB: [facility] [id number], [place] GROUPPolicy Number: Repository [id number]: 330 [id number] [phone] (HP) Date: [address] [address]ZU: 08/09/2018 Secondary NOT GIVENUNK [place] Insurance:SELF PAY [facility] Number: Effective Repository Date:2018-08-05 07/29/2018 NORRIS Giraldo Primary NORRIS Giraldo [place] [id number] Insurance:ROMAN CATHOLIC MILLERDOB: [facility] [id number], [place] GROUPPolicy Number: Repository [id number]: 330 [id number] [phone] (HP) Date: [address] [address]TZ: 07/29/2018 Secondary NOT GIVENUNK Raad Insurance:SELF PAY [facility] Number: Effective Repository Date:2018-07-29 07/29/2018 NORRIS Giraldo Primary NORRIS Giraldo Raad [id number] Insurance:ROMAN CATHOLIC MILLERDOB: [facility] [id number], [place] GROUPPolicy Number: Repository [id number]: [phone] [id number] [phone] (HP) Date: [address] [place] [address] 079[address]HW: 07/29/2018 Secondary NOT GIVENUNK [place] Insurance:SELF [facility] Effective Repository Date:2018-07-29 07/22/2018 NORRIS Giraldo Primary NORRISJIGNESH Shankar [id number] Insurance:ROMAN CATHOLIC MILLERDOB: [facility] [id number], [place] GROUPPolicy Number: Repository [id number]: 330 [id number] [phone] (HP) Date: [address] [place] [address] 25561GO: 07/22/2018 Secondary NOT GIVENUNK Raad Insurance:SELF PAY [facility] Number: Effective Repository Date:2018-07-22 07/18/2018 NORRIS Giraldo Primary NORRIS Shankar [id number] Insurance:ROMAN CATHOLIC MILLERDOB: [facility] [id number], [place] GROUPPolicy Number: Repository [id number]: 330 [id number] [phone] (HP) Date: [address] [address]YH: 07/18/2018 Secondary NOT GIVENUNK Raad Insurance:SELF PAY [facility] Number: Effective Repository Date:2018-07-12 07/18/2018 NORRIS Giraldo Primary NORRIS Kristal Raad [id number] Insurance:ROMAN CATHOLIC MILLERDOB: [facility] [id number], [place] GROUPPolicy Number: Repository [id number]: 330 [id number] [phone] (HP) Date: [address] [address]GA: 07/18/2018 Secondary NOT GIVENUNK Raad Insurance:SELF PAY [facility] Hospital Number: Effective Repository Date:2018-07-08 07/02/2018 NORRIS Giraldo Primary NORRIS Shankar [id number] Insurance:ROMAN CATHOLIC MILLERDOB: [facility] [id number], [place] GROUPPolicy Number: Repository [id number]: 330 [id number] [phone] (HP) Date: [address] [place] [address] 19581RH: 07/02/2018 Secondary NOT GIVENUNK Raad Insurance:SELF PAY [facility] Hospital Number: Effective Repository Date:2018-07-02 07/02/2018 NORRIS J Primary NORRIS J [place] [id number] Insurance:ROMAN CATHOLIC MILLERDOB: [facility] [id number], [place] GROUPPolicy Number: Repository [id number]: 330 [id number] [phone] (HP) Date: [address] [address]YR: 07/02/2018 Secondary NOT GIVENUNK Raad Insurance:SELF PAY [facility] Number: Effective Repository Date:2018-07-02 07/02/2018 NORRIS J Primary NORRIS J [place]ley [id number] Insurance:ROMAN CATHOLIC MILLERDOB: [facility] [id number], [place] GROUPPolicy Number: Repository [id number]: 330 [id number] [phone] (HP) Date: [address] [place] [address] 429[address]OH: 07/02/2018 Secondary NOT GIVENUNK [place] Insurance:SELF PAY [facility] Number: Effective Repository Date:2018-07-02 07/02/2018 NORRIS J Primary NORRIS J Raad [id number] Insurance:ROMAN CATHOLIC MILLERDOB: [facility] [id number], [place] GROUPPolicy Number: Repository [id number]: (800) [id number] [phone] (HP) Date: [address] [place] [address] 980[address]VM: 07/02/2018 Secondary NOT GIVENUNK [place] Insurance:SELF PAY [facility] Number: Effective Repository Date:2018-07-02 07/02/2018 NORRIS Giraldo Primary NORRIS Kristal Raad [id number] Insurance:ROMAN CATHOLIC MILLERDOB: [facility] [id number], [place] GROUPPolicy Number: Repository [id number]: [phone] [id number] [phone] () Date: [address] [address]QI: 07/02/2018 Secondary NOT GIVENUNK Buckley Insurance:SELF PAY [facility] Number: Effective Repository Date:2018-07-02 07/02/2018 NORRIS Giraldo Primary NORRIS Shankar [id number] Insurance:ROMAN CATHOLIC MILLERDOB: [facility] [id number], [place] GROUPPolicy Number: Repository [id number]: [phone] [id number] [phone] () Date: [address] 16[address]CD: 07/02/2018 Secondary NOT GIVENUNK Buck[place] Insurance:SELF PAY [facility] Number: Effective Repository Date:2018-07-02 07/02/2018 NORRIS Giraldo Primary NORRIS Kristal Raad [id number] Insurance:ROMAN CATHOLIC MILLERDOB: [facility] [id number], [place] GROUPPolicy Number: Repository [id number]: [phone] [id number] [phone] () Date: [address] [address]UP: 07/02/2018 Secondary NOT GIVENUNK [place] Insurance:SELF PAY [facility] Number: Effective Repository Date:2018-07-02 07/02/2018 NORRIS Giraldo Primary NORRIS Shankar [id number] Insurance:ROMAN CATHOLIC MILLERDOB: [facility] [id number], [place] GROUPPolicy Number: Repository [id number]: 330 [id number] [phone] (HP) Date: [address] [address]NA: 07/02/2018 Secondary NOT GIVENUNK Raad Insurance:SELF PAY [facility] Number: Effective Repository Date:2018-07-02 07/02/2018 NORRIS Giraldo Primary NORRIS J Raad [id number] Insurance:ROMAN CATHOLIC MILLERDOB: [facility] [id number], [place] GROUPPolicy Number: Repository [id number]: 330 [id number] [phone] () Date: [address] [address]IC: 07/02/2018 Secondary NOT GIVENUNK Raad Insurance:SELF PAY [facility] Number: Effective Repository Date:2018-07-02 07/02/2018 NORRIS Giraldo Primary NORRIS Shankar [id number] Insurance:ROMAN CATHOLIC MILLERDOB: [facility] [id number], [place] GROUPPolicy Number: Repository [id number]: 330 [id number] [phone] () Date: [address] [address]XC: 07/02/2018 Secondary NOT GIVENUNK Raad Insurance:SELF PAY [facility] Number: Effective Repository Date:2018-07-02
== END ==
PROVIDERS: Family Provider Family Medicine; PCP Family Medicine; Referring Provider Family Medicine; Visit Provider Family Medicine
DX: I48.91 Unspecified atrial fibrillation (principal)
CPT/HCPCS: 85610

== ENCOUNTER 2018-08-09 08:06 | Outpatient (RCR) | payer OTHER, SELFPAY ==
[2018-08-05 15:16] VITALS: BMI 39.6
[2018-08-09 08:52] LABS: Anion Gap 9 (5-15); BUN 36 mg/dL (7-18); BUN/Creat Ratio 19.3 RATIO (10-20); Calcium,Total 9.2 mg/dL (8.5-10.1); Chloride 97 mmol/L (98-107); Creatinine, Serum 1.87 mg/dL (0.70-1.30); EST Glomerular Filtration Rate 38 mL/min (>60); Est Glom Filt Rate - Afr Amer 45 mL/min (>60); Glucose 118 mg/dL (74-106); Potassium 3.4 mmol/L (3.5-5.1); Sodium Level 140 mmol/L (136-145)
== END 2018-08-09 09:00 | disposition home or self-care (01) ==
LOC: LAB 08:06
PROVIDERS: Internal Medicine Cardiovascular Disease; Family Provider Family Medicine; PCP Family Medicine; Referring Provider Family Medicine; Visit Provider Family Medicine
DX: I50.9 Heart failure, unspecified (principal)
CPT/HCPCS: 36415; 80048

== ENCOUNTER → 2018-08-12 14:58 | Outpatient (CLI) | payer OTHER, SELFPAY ==
[2018-08-12 09:51] VITALS: BMI 39.7
--- NOTE | 2018-08-12 15:00 | CT_ITS ---
STUDY: CT CHEST WITHOUT CONTRAST REASON FOR EXAM: Male, 77 years old. History of cough and lung nodule. RADIATION DOSAGE (If Supplied By Facility): CTDIvol = ( 20.15 ) mGy, DLP = ( 1399.64 ) mGycm TECHNIQUE: Transaxial imaging was performed without the administration of intravenous contrast material. Multiplanar coronal and sagittal images were reformatted. Individualized dose optimization techniques were used for this CT. COMPARISON: Comparison is made with prior chest radiograph dated August 09, 2018. FINDINGS: Patchy infiltrates at the lung bases worse on the right side. There is no demonstrated pleural abnormality. There are calcifications of the coronary arteries. There are multiple small lymph nodes within the mediastinum, which are normal in size and morphology most compatible with reactive lymph hyperplasia. Calcified right hilar lymph nodes. There is a 1.2 cm x 0.7 cm calcified nodular density in the anterior medial aspect of the right upper lobe. Normal unenhanced pulmonary arteries. There is atherosclerotic calcification of the aortic arch . There are multi-level degenerative changes of the thoracic spine. There is a 2.2 cm x 2 cm calcific nodule in the anterior superior aspect of the spleen most likely representing the partially calcified cyst or old hematoma. CT/Chest without Contrast IMPRESSION: The nodular density corresponds to a 1.2 cm x 0.7 cm calcified nodule in the anteromedial aspect of the right upper lobe. Bibasilar infiltrates worse on the right side. Electronically Signed: Bacilio Mitchell MD at 15:47 EST Tel [phone], Service support ,
== END ==
PROVIDERS: Family Provider Family Medicine; PCP Family Medicine; Referring Provider Nurse Practitioner Family; Visit Provider Nurse Practitioner Family
DX: R91.1 Solitary pulmonary nodule (principal)
CPT/HCPCS: 71250

== ENCOUNTER → 2018-08-13 12:39 | Outpatient (CLI) | payer OTHER, SELFPAY ==
[2018-08-12 09:51] VITALS: BMI 39.7
--- NOTE | 2018-08-14 07:31 | PFTCOMP_ITS ---
COMPLETE PULMONARY FUNCTION TEST INTERPRETATION Brief HPI: Patient is a 77 year old male, currently under the care of Umm Yan, who presents to [facility] for complete pulmonary function tests secondary to diagnosis of cough. Respiratory therapist reports good effort and reproducible results. Interpretation: Forced expiration spirometry shows no large airways obstructive ventilatory defect with an FEV1 of 58% predicted. There is no significant bronchodilator response by strict ATS criteria. Spirograms are of good quality and plateau normally. The respiratory flow volume loop shows a normal pattern. Lung volumes by body plethysmography show a decreased total lung capacity at 3.62 L, 69% predicted. All other lung volumes are reduced symmetrically. Diffusion capacity by carbon monoxide is normal at 90% predicted. The airway resistance is elevated. No previous pulmonary function tests were available for review. 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
== END ==
PROVIDERS: Family Provider Family Medicine; PCP Family Medicine; Referring Provider Registered Nurse; Visit Provider Registered Nurse
DX: R05 Cough (principal)
CPT/HCPCS: 94060; 94726; 94729

== ENCOUNTER 2018-08-14 11:30 | Outpatient (RCR) | payer OTHER, SELFPAY ==
[2018-07-18 11:16] VITALS: BMI 39.7
[2018-08-05 15:16] VITALS: BMI 39.6
--- NOTE | 2018-08-09 09:43 | RAD_ITS ---
STUDY: X-RAY CHEST REASON FOR EXAM: Male, 77 years old. Shortness of breath, stent placement June 2018 TECHNIQUE: PA and lateral views of the chest. COMPARISON: 07/04/2018 FINDINGS: Improvement in aeration of the lungs since the prior study clearing of vascular congestion and bibasilar edema. There is a 9 mm nodule in the retrosternal clear space seen only on the lateral view. There is no demonstrated pleural abnormality. Normal size heart. Normal mediastinum and rishabh. Normal visualized pulmonary arteries. There is atherosclerotic calcification of the aortic arch with tortuosity. There are diffuse degenerative changes of the visualized thoracic spine. Normal visualized ribs, clavicles, and shoulders. There is no demonstrated abnormality of the visualized soft tissue structures of the upper abdomen. RAD/Chest PA and Lateral IMPRESSION: 1. Favorable change. Resolution of vascular congestion/basilar edema. 2. 9 mm retrosternal nodule. No comparison lateral view. Recommend either follow-up chest x-ray in 6 months or additional evaluation with chest CT depending on risk factors for malignancy. 3. No airspace consolidation or sizable effusion. Electronically Signed: Ken Donato MD at 7:23 EST , Service support ,
--- NOTE | 2018-08-16 11:29 | PCM.CR.ITP ---
General Information - General Information Admitting Diagnosis: PCI with stent - Education/Goals Cardiac Rehabilitation Goals: 1. Maintain the individual as the primary focus of care. 2. To improve the patient's quality of life. 3. Identification of cardiac risk factors and provide cardiac risk factor management. 4. Enhance the psychosocial status of the patient. 5. Reconditioning enough to allow the patient to resume customary activities. 6. Control symptoms of cardiac disease Scale for measuring improvement of personal goals: Enter appropriate number in Comments. 2 = Unchanged. 3 = Slightly Better. 4 = Moderate Improvement. 5 = Met my Goal Exercise - 30-day Assessment - Visit Date of Eval: 08/16/18 Session #:: 2 - Stages of Change Stages of Change:: Action - Exercise Prescription Mode:: NuStep, Arm Ergometer Frequency (x/week): 3 Duration:: 35 METs - Progression: 0.5-1 MET as tolerated: 2.5 Target Heart Rate:: 102-109 Max HR 122 - Hypertension Resting Blood Pressure:: 144/82 Peak Exercise Blood Pressure:: 154/82 - Intervention Home Exercise/Activity Goal:: Sitting Time <3 hrs/day - Education Goals:: Warm-up, RPE SHARLA Scale, S/S, Safe Exercise, Self-Monitoring Nutrition - Initial Assessment - Program Goals Nutrition Program Goals: LDL <70. Total Cholesterol <200. HDL >45. Triglycerides <150. HgbA1C <7%. BMI <25 - Diabetes Do you monitor your blood sugar at home?: No Nutrition - 30-Day Assessment - Program Goals Nutrition Program Goals: LDL <70. Total Cholesterol <200. HDL >45. Triglycerides <150. HgbA1C <7%. BMI <25 - Visit Date of Eval: 08/16/18 - Stages of Change Stages of Change:: Action - Weight Management Weight:: 97.069 kg - Intervention Referral to dietitian:: No Referral to Diabetic Clinic:: No Will attend diet classes:: Yes - Education Attended class for:: Signs & symptoms of hypoglycemia, Signs & symptoms of hyperglycemia, Relate diabetes to coronary artery disease, Healthy eating Tobacco - 30-Day Assessment - Program Goals Tobacco Program Goals: Complete smoking cessation. Attend education classes. Improve Knowledge Test score - Stage of Change Stages of Change:: Action - Learning Barriers Learning Barriers: Participates in education - Family Support Do you have family support?: Yes - Tobacco Use Tobacco Use: Non-smoker - Intervention Smoking Cessation Referral:: No Individual Education/Counseling:: No Education Schedule Given:: Yes - Education Attended class for:: Tobacco triggers, Coronary artery disease, Risk factors, Sexuality, Medical compliance, Cardiac A&P, Angina signs & symptoms Psychosocial - Initial Assess - Target Goals Target Goals: Assess presence or absence of depression. Using a valid screening tool, maximizes coping skills. Positive support system - Psychosocial Test Tool Used:: HANDS Depression Questionnaire - Assistive Devices Fall Risk Assessed:: Yes Psychosocial - 30-Day Assess - Target Goals Target Goals: Assess presence or absence of depression. Using a valid screening tool, maximizes coping skills. Positive support system - Stages of Change Stages of Change:: Action - Psychosocial Test Tool Used:: HANDS Depression Questionnaire - Intervention PS - Interventions: Yes Attend Stress Management Classes, Yes Uses Stress Management Skills, No Referral to Mental Health, No Referral to [facility] Case Management, No Referral to Physician - Education Attended classes for:: Coping techniques, Signs & symptoms of depression, Stress management, Relaxation techniques - Assistive Devices Assistive Devices:: None Fall Risk Assessed:: Yes Patient Health Questionnaire 30-Day Re-eval Assessment 1. Little interest or pleasure in doing things: More than half the days 2. Feeling down, depressed, or hopeless: Several days 3. Trouble falling or staying asleep, or sleeping too much: Nearly every day 4. Feeling tired or having little energy: Nearly every day 5. Poor appetite or overeating: More than half the days 6. Feeling bad about yourself -- or that you are a failure or have let yourself or your family down: Not at all 7. Trouble concentrating on things, such as reading the newspaper or watching television: More than half the days 8. Moving or speaking so slowly that other people could have noticed. Or the opposite - being so fidgety or restless that you have been moving around a lot more than usual: Several days 9. Thoughts that you would be better off , or of hurting yourself in some way: Not at all How difficult have these problems made it for you to do your work, take care of things at home, or get along with other people?: Not difficult at all Total Score: 14 Self-Efficacy 30-Day Re-eval Assessment We would like to know how confident you are in doing certain activities. Please select your confidence level for:: Select your confidence level for the following using the scale 1-10 where 1 is not at all confident and 10 is totally confident. Your score is the average of all 6 responses. Fatigue: How confident are you that you can keep the fatigue caused by your disease from interfering with the things you want to do? Select Number: 10 Physical Discomfort or Pain: How confident are you that you can keep the physical discomfort or pain of your disease from interfering with the things you want to do? Select Number: 10 Emotional Distress: How confident are you that you can keep the emotional distress caused by your disease from interfering with the things you want to do? Select Number: 10 Other Symptoms or Health Problems: How confident are you that you can keep other symptoms or health problems from interfering with the things you want to do? Select Number: 10 Different Tasks and Activities: How confident are you that you can do the different tasks and activities needed to manage your health condition so as to reduce your need to see a doctor? Select Number: 10 Medication: How confident are you that you can do things other than just taking medication to reduce how much your illness affects your everyday life? Select Number: 10 Total Score:: 10
[2018-08-16 11:34] VITALS: BP 144/82; BP 154/82
== END 2018-09-05 23:59 ==
LOC: CR 11:30
PROVIDERS: Family Provider Family Medicine; PCP Family Medicine; Referring Provider Internal Medicine Cardiovascular Disease; Visit Provider Internal Medicine Cardiovascular Disease
DX: Z95.5 Presence of coronary angioplasty implant and graft (principal)
CPT/HCPCS: 71046; 93798

== ENCOUNTER → 2018-08-15 08:50 | Outpatient (CLI) | payer OTHER, SELFPAY ==
[2018-08-15 07:35] VITALS: BMI 35.7
== END ==
PROVIDERS: Family Provider Family Medicine; PCP Family Medicine; Referring Provider Internal Medicine Critical Care Medicine; Visit Provider Internal Medicine Critical Care Medicine
DX: R05 Cough (principal)
CPT/HCPCS: 87633

== ENCOUNTER → 2018-08-16 08:14 | Outpatient (CLI) | payer OTHER, SELFPAY ==
[2018-08-15 07:35] VITALS: BMI 35.7
[2018-08-16 10:27] LABS: Anion Gap 11 (5-15); BUN 45 mg/dL (7-18); BUN/Creat Ratio 20.9 RATIO (10-20); Calcium,Total 8.7 mg/dL (8.5-10.1); Chloride 98 mmol/L (98-107); Creatinine, Serum 2.15 mg/dL (0.70-1.30); EST Glomerular Filtration Rate 32 mL/min (>60); Est Glom Filt Rate - Afr Amer 39 mL/min (>60); Glucose 171 mg/dL (74-106); Sodium Level 137 mmol/L (136-145)
== END ==
LOC: LABSPEC 08:15 → LAB 08:21
PROVIDERS: Internal Medicine Cardiovascular Disease; Family Provider Family Medicine; PCP Family Medicine; Referring Provider Internal Medicine Critical Care Medicine; Visit Provider Internal Medicine Critical Care Medicine
DX: R91.1 Solitary pulmonary nodule (principal); I25.10 Atherosclerotic heart disease of native coronary artery without angina pectoris; Z95.5 Presence of coronary angioplasty implant and graft
CPT/HCPCS: 36415; 80048; 87070; 87205

== ENCOUNTER → 2018-08-23 08:55 | Outpatient (CLI) | payer OTHER, SELFPAY ==
[2018-08-15 07:35] VITALS: BMI 35.7
[2018-08-23 10:26] LABS: Anion Gap 7 (5-15); BUN 43 mg/dL (7-18); BUN/Creat Ratio 22.4 RATIO (10-20); Calcium,Total 9.2 mg/dL (8.5-10.1); Chloride 98 mmol/L (98-107); Creatinine, Serum 1.92 mg/dL (0.70-1.30); EST Glomerular Filtration Rate 36 mL/min (>60); Est Glom Filt Rate - Afr Amer 44 mL/min (>60); Glucose 143 mg/dL (74-106); Potassium 3.9 mmol/L (3.5-5.1); Sodium Level 139 mmol/L (136-145)
--- OUTSIDE RECORDS SUMMARY | 2018-10-27 15:57 | XMS RPT_ITS ---
:1940 Author Organization OHIP Support Name Relationship Address Phone R Unavailable Unavailable Unavailable SAMARA, CARLYLE Unavailable [address] + [place] [address] R Unavailable Unavailable Unavailable SAMARA, CARLYLE Unavailable [address] + [place] [address] R Unavailable Unavailable Unavailable SAMARA, CARLYLE Unavailable [address] + [place] [address] R Unavailable Unavailable Unavailable SAMARA, CARLYLE Unavailable [address] + [place] [address] R Unavailable Unavailable Unavailable SAMARA, CARLYLE Unavailable [address] + [place] [address] R Unavailable Unavailable Unavailable SAMARA, CARLYLE Unavailable [address] + [place] [address] R Unavailable Unavailable Unavailable SAMARA, CARLYLE Unavailable [address] + [place] [address] R Unavailable Unavailable Unavailable SAMARA, CARLYLE Unavailable [address] + [place] [address] R Unavailable Unavailable Unavailable SAMARA, CARLYLE Unavailable [address] + [place] [address] R Unavailable Unavailable Unavailable SAMARA, CARLYLE Unavailable [address] + [place] [address] R Unavailable Unavailable Unavailable SAMARA, CARLYLE Unavailable [address] + [place] [address] R Unavailable Unavailable Unavailable SAMARA, CARLYLE Unavailable [address] + [place] [address] R Unavailable Unavailable Unavailable SAMARA, CARLYLE Unavailable [address] + [place] [address] R Unavailable Unavailable Unavailable SAMARA, CARLYLE Unavailable [address] + [place] [address] R Unavailable Unavailable Unavailable SAMARA, CARLYLE Unavailable [address] + [place] [address] STEIN, RAY Unavailable Unavailable + [place] [address] R Unavailable Unavailable Unavailable STEIN, RAY Unavailable . + [place] [address] R Unavailable Unavailable Unavailable STEIN, RAY Unavailable Unavailable + [place] [address] R Unavailable Unavailable Unavailable STEIN, RAY Unavailable Unavailable + [place] [address] R Unavailable Unavailable Unavailable STEIN, RAY Unavailable Unavailable + [place] [address] R Unavailable Unavailable Unavailable STEIN, RAY Unavailable Unavailable + [place] [address] R Unavailable Unavailable Unavailable STEIN, RAY Unavailable Unavailable + [place] [address] R Unavailable Unavailable Unavailable STEIN, RAY Unavailable Unavailable + [place] [address] R Unavailable Unavailable Unavailable STEIN, RAY Unavailable Unavailable + [place] [address] R Unavailable Unavailable Unavailable STEIN, RAY Unavailable Unavailable + [place] [address] R Unavailable Unavailable Unavailable Care Team Providers Name Role Phone ANAM STRICKLAND ([facility]) Attending Unavailable SAUMYA NEWTON Referring Unavailable SAUMYA NEWTON Attending Unavailable SAUMYA NEWTON Referring Unavailable ANAM STRICKLAND ([facility]) Attending Unavailable ANAM STRICKLAND ([facility]) Attending Unavailable ANAM STRICKLAND ([facility]) Referring Unavailable SAUMYA NEWTON Attending Unavailable SAUMYA NEWTON Referring Unavailable SAUMYA NEWTON Referring Unavailable SAUMYA NEWTON Referring Unavailable RAFAEL FENTON Referring Unavailable SAUMYA NEWTON Attending Unavailable SAUMYA NEWTON Referring Unavailable UMM YAN ([facility]) Attending Unavailable SAUMYA NEWTON Referring Unavailable SAUMYA NEWTON Referring Unavailable ARMANI CHAUDHARY Referring Unavailable KAMALJIT SPIVEY III Referring Unavailable ELDERBROCK, SAUMYA Pelayo Referring Unavailable Moodispaw, Kulwant Attending Unavailable Elder[place], Saumya Primary Care Unavailable Moodispashay, Kulwant Attending Unavailable Moodispaw, Kulwant Referring Unavailable Elderbrock, Saumya Primary Care Unavailable Elderbrock, Saumya Attending Unavailable Elderbrock, Saumya Referring Unavailable Elder[place], Saumya Primary Care Unavailable Vanessa Bowen Attending Unavailable Moodispaw, Kulwant Attending Unavailable Kotsonis, Jhon F Attending Unavailable Kotsonis, Jhon F Referring Unavailable Elderbro[place], Saumya Primary Care Unavailable Moodispaw, Kulwant Consulting Unavailable Roof, Adebayo H Attending Unavailable Roof, Adebayo H Referring Unavailable Elderbrock, Saumya Primary Care Unavailable Siomara Helm Consulting Unavailable HaagenUmm Attending Unavailable HaagenUmm Referring Unavailable Elderbrock, Saumya Primary Care Unavailable Floyd Cruz D.O. Attending Unavailable Elderbrock, Saumya Referring Unavailable Floyd Cruz D.O. Attending Unavailable Gita Michel.Radha Referring Unavailable Elderbrock, Saumya Primary Care Unavailable Floyd Cruz D.O. Attending Unavailable Floyd Cruz D.O. Referring Unavailable Elderbrock, Saumya Primary Care Unavailable Cheng Mccoy Attending Unavailable Umm Yan Referring Unavailable Moodispashay, Kulwant Attending Unavailable Moodispaw, Kulwant Referring Unavailable Elderbrock, Saumya Primary Care Unavailable Elderbrock, Saumya Attending Unavailable Elder[place], Saumya Primary Care Unavailable KirbyonisRyanJhon F Admitting Unavailable Zacharytsonis, Jhon F Attending Unavailable Kulwant Godoy Consulting Unavailable Kotsonis, Jhon F Admitting Unavailable Kotsonis, Jhon F Attending Unavailable Elderbrock, Saumya Primary Care Unavailable Kotsonis, Jhon F Consulting Unavailable Kotsonis, Jhon F Admitting Unavailable Kotsonis, Jhon F Attending Unavailable Elderbrock, Saumya Primary Care Unavailable Kotsonis, Jhon F Consulting [...] F Admitting Unavailable Moodispaw, Kulwant Attending Unavailable [place], [place] Primary Care Unavailable Moodispaw, Kulwant Consulting Unavailable Kotsonis, Jhon F Consulting Unavailable Kotsonis, Jhon F Admitting Unavailable Kotsonis, Jhon F Attending Unavailable [facility], [place] Primary Care Unavailable Moodispaw, Kulwant Consulting Unavailable Kotsonis, Jhon F Consulting Unavailable Kotsonis, Jhon F Admitting Unavailable Moodispaw, Kulwant Attending Unavailable [place], [place] Primary Care Unavailable Moodispaw, Kulwant Consulting Unavailable Kotsonis, Jhon F Consulting Unavailable Kotsonis, Jhon F Admitting Unavailable Kotsonis, Jhon F Attending Unavailable [place], [place] Primary Care Unavailable Moodispaw, Kulwant Consulting Unavailable Kotsonis, Jhon F Consulting Unavailable Kotsonis, Jhon F Admitting Unavailable Moodispaw, Kulwant Attending Unavailable [facility], [place] Primary Care Unavailable Moodispaw, Kulwant Consulting Unavailable Kotsonis, Jhon F Consulting Unavailable Kotsonis, Jhon F Attending Unavailable Kotsonis, Jhon F Referring Unavailable [facility] Primary Care Unavailable Moodispaw, Kulwant Consulting Unavailable PROBLEMS PROBLEMS DATE TYPE CONDITION / CODE ATTENDING STATUS SOURCE 08/29/2018 Unknown I42.9 - Kulwant Godoy Active [facility] Cardiomyopathy, Community unspecified / Hospital I42.9(ICD-10) Repository 08/16/2018 Unknown 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 / I25.10(ICD-10) 08/16/2018 Unknown Z95.5 - Presence of Kulwant Godoy Active [facility] coronary angioplasty Community implant and graft / Hospital Z95.5(ICD-10) Repository 08/23/2018 Unknown R05 - Cough / Darius, Cheng Active [facility] R05(ICD-10) [facility] Repository 08/19/2018 Unknown R91.1 - Solitary Roof, Adebayo Shetty Active [facility] pulmonary nodule / Community R91.1(ICD-10) Hospital Repository 07/30/2018 Unknown I48.91 - Unspecified Kulwant Godoy Active [facility] atrial fibrillation / Community I48.91(ICD-10) Hospital Repository 07/30/2018 Unknown I48.0 - Paroxysmal Moodispashay, Kulwant Active [facility] atrial fibrillation / Community I48.0(ICD-10) Hospital Repository 07/30/2018 Unknown I48.92 - Unspecified Moodispashay, Kulwant Active [facility] atrial flutter / Community I48.92(ICD-10) Hospital Repository 07/30/2018 Unknown I50.9 - Heart Moodispashay, Kulwant Active [facility] failure, unspecified Community / I50.9(ICD-10) Hospital Repository 07/30/2018 Unknown I50.22 - Chronic Moodispashay, Kulwant Active [facility] systolic (congestive) [facility] heart failure / Hospital I50.22(ICD-10) Repository 07/30/2018 Unknown E78.5 - MoodispaKulwant day Active [facility] Hyperlipidemia, Community unspecified / Hospital E78.5(ICD-10) Repository 07/30/2018 Unknown I10 - Essential MoodispaKulwant day Active [facility] (primary) [facility] hypertension / Hospital I10(ICD-10) Repository 07/25/2018 Active Cough / R05(ICD-10) NA Active [facility] Main [place] Repository 07/22/2018 Active Unspecified atrial NA Active [place] fibrillation / Clinic Main I48.91(ICD-10) [place] Repository 08/05/2018 Unknown 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) Clinic Main [place] Repository 01/24/2017 Active Type 2 diabetes NA Active [facility] mellitus without Clinic Main complications / [place] E11.9(ICD-10) Repository 07/14/2015 Active Hyperlipidemia, NA Active [place] unspecified / Clinic Main E78.5(ICD-10) [place] Repository PROCEDURES PROCEDURES No Procedure Records FoundRESULTS RESULTS PROGRESS Observed: 08/30/2018 Status: COMPLETED Source: [place] 3:40 PM [facility] REPOSITORY HNO ID: [id number] Author: Saumya Newton Service: (none) Author Type: Physician Type: Progress Notes Filed: 08/30/2018 3:58 PM Note Text: I agree with the advice given; stay same and recheck in 2 weeks Saumya Newton MD PROGRESS Observed: 08/30/2018 Status: COMPLETED Source: [place] 11:21 AM [facility] REPOSITORY HNO ID: [id number] Author: Vanessa Mckeon RN Service: (none) Author Type: (none) Type: Progress Notes Filed: 08/30/2018 11:22 AM Note Text: patient had inr completed at [facility] patients inr is 2.8 (patients inr range is 2.0-3.0) patient is currently taking 2mg daily patients last dose change unknown at this is the dose patient was on when starting with the coumadin clinic on 07/2018 patient has had no changes in medication and no missed doses and no change in diet Advised patient to continue on the same dose(s) and that they would only be contacted regarding dosage and follow up instructions after review with provider, if a change is needed. Written instructions given and patient verbalized understanding. Presently scheduled in 2 weeks (09/13/18) for follow up INR. PROGRESS Observed: 08/23/2018 Status: COMPLETED Source: [place] 1:34 PM [facility] REPOSITORY HNO ID: [id number] Author: Saumya Newton Service: (none) Author Type: Physician Type: Progress Notes Filed: 08/23/2018 4:08 PM Note Text: Stay on same dose; recheck in 1 week as planned Saumya Newton MD PROGRESS Observed: 08/23/2018 Status: COMPLETED Source: [place] 12:20 PM [facility] REPOSITORY HNO ID: [id number] Author: Vanessa Mckeon RN Service: (none) Author Type: (none) Type: Progress Notes Filed: 08/23/2018 12:23 PM Note Text: patient had inr completed at [facility] patients inr is 2.9 (patients inr range [...] Collected: 08/23/2018 Status: F Source: [facility] PROFILE ([facility]) 8:59 AM [facility] REPOSITORY TYPE CODE TESTS RESULT OUT OF [...] GAP 7 Performed By: #### L500.2500 #### [facility] [address] [place], [address] OBSOLETE Observed: 08/23/2018 Status: COMPLETED Source: [place] 12:00 AM [facility] REPOSITORY Refill (COUMWS) NORRIS STEIN ([id number]) 1940 M Date Time Provider Department 08/23/18 [...] Date Reviewed: 08/09/2018 Reviewed by: Cielo Finn Ammonia Still Operator - Fully Assessed Reason for Visit: Refill [...] F Source: [facility] PROFILE (BMP) 8:20 AM [facility] REPOSITORY TYPE CODE TESTS RESULT OUT OF [...] GAP 11 Performed By: #### L500.2500 #### [facility] [address] [place], [address] Observed: 08/16/2018 Status: F Source: [place] CULTURE, SPUTUM 7:45 AM [facility] REPOSITORY Gram Stain Gram Stain 2+ Epithelial cells 4+ Gram positive cocci 2+ Gram positive rods 2+ Gram negative rods Resp. Culture Mixed normal respiratory odilia. No Haemophilus, Streptococcus pneumoniae, beta-hemolytic Streptococcus or Staphylococcus aureus isolated. Performed By: #### M100.0800 #### [facility] [address] [place], [address] PROGRESS Observed: 08/15/2018 Status: COMPLETED Source: [place] 2:23 PM [facility] REPOSIT[facility] HNO ID: [id number] Author: Martha Stewart Ma Service: (none) Author [...] Ma PROGRESS Observed: 08/15/2018 Status: COMPLETED Source: [place] 11:27 AM [facility] REPOSITORY O ID: [id number] Author: Vanessa Mckeon RN Service: (none) Author Type: (none) Type: Progress Notes Filed: 08/15/2018 11:31 AM Note Text: patient had inr completed at [facility] patients inr is 1.8 (patients inr range [...] at home Observed: 08/15/2018 Status: F Source: [place] RESPIRATORY PANEL 9:20 AM [facility] MOLECULAR REPOSITORY RP PANEL ADENOVIRUS Not Detected [...] acid amplification Performed By: #### M100.638 #### [facility] [address] [place], [place], [id number] MISCELLANEOUS LAB Collected: 08/15/2018 Status: F Source: [facility] PROCEDURE 8:57 AM [facility] REPOSITORY Order Comment: Comments: Urine Histoplasma antigen Comments: Urine Histoplasma antigen Test(s) Ordered: URINE HISTOPLASMA ANTIGEN TYPE CODE TESTS RESULT OUT OF RANGE REFERENCE UNITS LAB L801.1541 Normal [facility] LAB TEST Result Comment: TEST RESULT LIMITS Histoplasma Gal'ludy Ag Ur Histoplasma Gal'ludy Ag Ur <0.5 <0.5 ng/mL Disclaimer: This test was developed and its performance characteristics determined by [facility]. It has not been cleared or approved by the Food and Drug Administration. TESTING PERFORMED AT [facility]. ORIGINAL REPORT ON FILE IN LAB CONTAINS ADDITIONAL TEST SITE INFORMATION. Performed By: #### L801.1541 #### [facility] [address] [place], [address] PULMONARY VISIT REPORT Observed: 08/15/2018 Status: F Source: [facility] 8:46 AM [facility] REPOSITORY [facility] [place] [address] [place] [address] OFFICE VISIT Date of Service: 08/15/18 MR#: [id number] Acct: [id number] Name: SARITANORRIS J Rep #: [id number] : 1940 Provider: Floyd Cruz D.O. Age/Sex: 77/M Location: [facility] Status: Signed Assessment AND Plan 1. 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 At this time, I have recommended a repeat noncontrasted chest CT in 3 months per the 2017 Fleischner society guidelines. I am also going to check a urinary histoplasmosis antigen. If there is a change in the size of the nodule, can consider PET scan versus direct tissue biopsy at that time. [id number],JPG;/9j/4AAQSkZJRgABAQEAYABgAAD/7ZHiDXtzEbQBRH0INwXXVMdDYPZ0RZDGUSULGGDMMpteVWPXQOUVUJY YEvoiPVOTGPUXYQWOsvusEViSDMcBEOHVXxVPSMDy3wMPDGvESMPKXRHEAOICNWGHMGWGOXLMXNRRQOEQKHSIFBIYNHRQNJ AAAAAAAAAAAAAAAAAAAAAAAAAAAAAAAAAAAAAAAAAAAAAAAAAAAAAAAAAAAAAAAAAAAAAAAAAAAAAAAAAAAAAAAAAAAAAAA AAAAAAAAAAAAAAAAAAAAAAAAAAAAAAAAAAAAAAAAAAAAAAAAAAAAAAAAAAAAAAAAAAAAAAAAAAAAAAAAAAAAAAAAAAAAAAA AAAAAAAAAAAAAAAAAAAAAAAAAAAAAAAAAAAAAAAAAAAAAAAAAAAAAAAAAAAAAAAAAAAAAAAAAAAAAAAAAAAAAAAAAAAAAAA AAAAAAAAAAAAAAAAAAAAAAAAAAAAAAAAAAAAAAAAAAAAAAAAAAAAAAAAAAAAAAAAAAAAAAAAAAAAAAAAAAAAAAAAAAAAAAA AAAAAAAAAAAAAAAAAAAAAAAAAAAAAAAAAAAAAAAAAAAAAAAAAAAAAAAAAAAAAAAAAAAAAAAAAAAAAAAAAAAAAAAAAAAAAAA AAAAAAAAAAAAAAAAAAAAAAAAAAAAAAAAAAAAAAAAAAAAAAAAAAAAAAAAAAAAAAAAAAAAAAAAAAAAAAAAAAAAAAAAAAAAAAA AAAAAAAAAAAAAAAAAAAAAAAAAAAAAAAAAAAAAAAAAAAAAAAAAAAAAAAAAAAAAAAAAAAAAAAAAAAAAAAAAAAAAAAAAAAAAAA AAAAAAAAAAAAAAAAAAAAAAAAAAAAAAAAAAAAAAAAAAAAAAAAAAAAAAAAAAAAAAAAAAAAAAAAAAAAAAAAAAAAAAAAAAAAAAA AAAAAAAAAAAAAAAAAAAAAAAAAAAAAAAAAAAAAAAAAAAAAAAAAAAAAAAAAAAAAAAAAAAAAAAAAAAAAAAAAAAAAAAAAAAAAAA AAAAAAAAAAAAAAAAAAAAAAAAAAAAAAAAAAAAAAAAAAAAAAAAAAAAAAAAAAAAAAAAAAAAAAAAAAAAAAAAAAAAAAAAAAAAAAA AAAAAAAAAAAAAAAAAAAAAAAAAAAAAAAAAAAAAAAAAAAAAAAAAAAAAAAAAAAAAAAAAAAAAAAAAAAAAAAAAAAAAAAAAAAAAAA AAAAAAAAAAAAAAAAAAAAAAAAAAAAAAAAAAAAAAAAAAAAAAAAAAAAAAAAAAAAAAAAAAAAAAAAAAAAAAAAAAAAAAAAAAAAAAA AAAAAAAAAAAAAAAAAAAAAAAAAAAAAAAAAAAAAAAAAAAAAAAAAAAAAAAAAAAAAAAAAAAAAAAAAAAAAAAAAAAAAAAAAAAAAAA AAAAAAAAAAAAAAAAAAAAAAAAAAAAAAAAAAAAAAAAAAAAAAAAAAAAAAAAAAAAAAAAAAAAAAAAAAAAAAAAAAAAAAAAAAAAAAA AAAAAAAAAAAAAAAAAAAAAAAAAAAAAAAAAAAAAAAAAAAAAAAAAAAAAAAAAAAAAAAAAAAAAAAAAAAAAAAAAAAAAAAAAAAAAAA AAAAAAAAAAAAAAAAAAAAAAAAAAAAAAAAAAAAAAAAAAAAAAAAAAAAAAAAAAAAAAAAAAAAAAAAAAAAAAAAAAAAAAAAAAAAAAA AAAAAAAAAAAAAAAAAAAAAAAAAAAAAAAAAAAAAAAAAAAAAAAAAAAAAAAAAAAAAAAAAAAAAAAAAAAAAAAAAAAAAAAAAAAAAAA AAAAAAAAAAAAAAAAAAAAAAAAAAAAAAAAAAAAAAAAAAAAAAAAAAAAAAAAAAAAAAAAAAAAAAAAAAAAAAAAAAAAAAAAAAAAAAA AAAAAAAAAAAAAAAAAAAAAAAAAAAAAAAAAAAAAAAAAAAAAAAAAAAAAAAAAAAAAAAAAAAAAAAAAAAAAAAAAAAAAAAAAAAAAAA AAAAAAAAAAAAAAAAAAAAAAAAAAAAAAAAAAAAAAAAAAAAAAAAAAAAAAAAAAAAAAAAAAAAAAAAAAAAAAAAAAAAAAAAAAAAAAA AAAAAAAAAAAAAAAAAAAAAAAAAAAAAAAAAAAAAAAAAAAAAAAAAAAAAAAAAAAAAAAAAAAAAAAAAAAAAAAAAAAAAAAAAAAAAAA AAAAAAAAAAAAAAAAAAAAAAAAAAAAAAAAAAAAAAAAAAAAAAAAAAAAAAAAAAAAAAAAAAAAAAAAAAAAAAAAAAAAAAAAAAAAAAA AAAAAAAAAAAAAAAAAAAAAAAAAAAAAAAAAAAAAAAAAAAAAAAAAAAAAAAAAAAAAAAAAAAAAAAAAAAAAAAAAAAAAAAAAAAAAAA AAAAAAAAAAAAAAAAAAAAAAAAAAAAAAAAAAAAAAAAAAAAAAAAAAAAAAAAAAAAAAAAAAAAAAAAAAAAAAAAAAAAAAAAAAAAAAA AAAAAAAAAAAAAAAAAAAAAAAAAAAAAAAAAAAAAAAAAAAAAAAAAAAAAAAAAAAAAAAAAAAAAAAAAAAAAAAAAAAAAAAAAAAAAAA AAAAAAAAAAAAAAAAAAAAAAAAAAAAAAAAAAAAAAAAAAAAAAAAAAAAAAAAAAAAAAAAAAAAAAAAAAAAAAAAAAAAAAAAAAAAAAA AAAAAAAAAAAAAAAAAAAAAAAAAAAAAAAAAAAAAAAAAAAAAAAAAAAAAAAAAAAAAAAAAAAAAAAAAAAAAAAAAAAAAAAAAAAAAAA AAAAAAAAAAAAAAAAAAAAAAAAAAAAAAAAAAAAAAAAAAAAAAAAAAAAAAAAAAAAAAAAAAAAAAAAAAAAAAAAAAAAAAAAAAAAAAA EGJGRQRPAFGDJMFKWZWYBSXRDATKLTWYLgVXqjoD7yvUR7NBERrFSUJnEDVARYJJKynLLROqEYVNFDHII8adUCQsIMAYQmJ QXIykKFNoJEGQOmYJNV1tsHSxKCUUxFMXqGZXECWGinITTGTLGUIAFMFSJAFRWYFPAPJJNCUOPFBIMOAETUHXSWNAYUQIMH AAAAAAAAAAAAAAAAAAAAAAAAAAAAAAAAAAAAAAAAAAAAAAAAAAAAAAAAAAAAAAAAAAAAAAAAAAAAAAAAAAAAAAAAAAAAAAA AAAAAAAAAAAAAAAAAAAAAAAAAAAAAAAAAAAAAAAAAAAAAAAAAAAAAAAAAAAAAAAAAAAAAAAAAAAAAAAAAAAAAAAAAAAAAAA AAAAAAAAAAAAAAAAAAAAAAAAAAAAAAAAAAAAAAAAAAAAAAAAAAAAAAAAAAAAAAAAAAAAAAAAAAAAAAAAAAAAAAAAAAAAAAA AAAAAAAAAAAAAAAAAAAAAAAAAAAAAAAAAAAAAAAAAAAAAAAAAAAAAAAAAAAAAAAAAAAAAAAAAAAAAAAAAAAAAAAAAAAAAAA AAAAAAAAAAAAAAAAAAAAAAAAAAAAAAAAAAAAAAAAAAAAAAAAAAAAAAAAAAAAAAAAAAAAAAAAAAAAAAAAAAAAAAAAAAAAAAA AAAAAAAAAAAAAAAAAAAAAAAAAAAAAAAAAAAAAAAAAAAAAAAAAAAAAAAAAAAAAAAAAAAAAAAAAAAAAAAAAAAAAAAAAAAAAAA AAAAAAAAAAAAAAAAAAAAAAAAAAAAAAAAAAAAAAAAAAAAAAAAAAAAAAAAAAAAAAAAAAAAAAAAAAAAAAAAAAAAAAAAAAAAAAA AAAAAAAAAAAAAAAAAAAAAAAAAAAAAAAAAAAAAAAAAAAAAAAAAAAAAAAAAAAAAAAAAAAAAAAAAAAAAAAAAAAAAAAAAAAAAAA AAAAAAAAAAAAAAAAAAAAAAAAAAAAAAAAAAAAAAAAAAAAAAAAAAAAAAAAAAAAAAAAAAAAAAAAAAAAAAAAAAAAAAAAAAAAAAA AAAAAAAAAAAAAAAAAAAAAAAAAAAAAAAAAAAAAAAAAAAAAAAAAAAAAAAAAAAAAAAAAAAAAAAAAAAAAAAAAAAAAAAAAAAAAAA AAAAAAAAAAAAAAAAAAAAAAAAAAAAAAAAAAAAAAAAAAAAAAAAAAAAAAAAAAAAAAAAAAAAAAAAAAAAAAAAAAAAAAAAAAAAAAA AAAAAAAAAAAAAAAAAAAAAAAAAAAAAAAAAAAAAAAAAAAAAAAAAAAAAAAAAAAAAAAAAAAAAAAAAAAAAAAAAAAAAAAAAAAAAAA AAAAAAAAAAAAAAAAAAAAAAAAAAAAAAAAAAAAAAAAAAAAAAAAAAAAAAAAAAAAAAAAAAAAAAAAAAAAAAAAAAAAAAAAAAAAAAA AAAAAAAAAAAAAAAAAAAAAAAAAAAAAAAAAAAAAAAAAAAAAAAAAAAAAAAAAAAAAAAAAAAAAAAAAAAAAAAAAAAAAAAAAAAAAAA AAAAAAAAAAAAAAAAAAAAAAAAAAAAAAAAAAAAAAAAAAAAAAAAAAAAAAAAAAAAAAAAAAAAAAAAAAAAAAAAAAAAAAAAAAAAAAA AAAAAAAAAAAAAAAAAAAAAAAAAAAAAAAAAAAAAAAAAAAAAAAAAAAAAAAAAAAAAAAAAAAAAAAAAAAAAAAAAAAAAAAAAAAAAAA AAAAAAAAAAAAAAAAAAAAAAAAAAAAAAAAAAAAAAAAAAAAAAAAAAAAAAAAAAAAAAAAAAAAAAAAAAAAAAAAAAAAAAAAAAAAAAA AAAAAAAAAAAAAAAAAAAAAAAAAAAAAAAAAAAAAAAAAAAAAAAAAAAAAAAAAAAAAAAAAAAAAAAAAAAAAAAAAAAAAAAAAAAAAAA AAAAAAAAAAAAAAAAAAAAAAAAAAAAAAAAAAAAAAAAAAAAAAAAAAAAAAAAAAAAAAAAAAAAAAAAAAAAAAAAAAAAAAAAAAAAAAA AAAAAAAAAAAAAAAAAAAAAAAAAAAAAAAAAAAAAAAAAAAAAAAAAAAAAAAAAAAAAAAAAAAAAAAAAAAAAAAAAAAAAAAAAAAAAAA AAAAAAAAAAAAAAAAAAAAAAAAAAAAAAAAAAAAAAAAAAAAAAAAAAAAAAAAAAAAAAAAAAAAAAAAAAAAAAAAAAAAAAAAAAAAAAA AAAAAAAAAAAAAAAAAAAAAAAAAAAAAAAAAAAAAAAAAAAAAAAAAAAAAAAAAAAAAAAAAAAAAAAAAAAAAAAAAAAAAAAAAAAAAAA AAAAAAAAAAAAAAAAAAAAAAAAAAAAAAAAAAAAAAAAAAAAAAAAAAAAAAAAAAAAAAAAAAAAAAAAAAAAAAAAAAAAAAAAAAAAAAA AAAAAAAAAAAAAAAAAAAAAAAAAAAAAAAAAAAAAAAAAAAAAAAAAAAAAAAAAAAAAAAAAAAAAAAAAAAAAAAAAAAAAAAAAAAAAAA AAAAAAAAAAAAAAAAAAAAAAAAAAAAAAAAAAAAAAAAAAAAAAAAAAAAAAAAAAAAAAAAAAAAAAAAAAAAAAAAAAAAAAAAAAAAAAA AAAAAAAAAAAAAAAAAAAAAAAAAAAAAAAAAAAAAAAAAAAAAAAAAAAAAAAAAAAAAAAAAAAAAAAAAAAAAAAAAAAAAAAAAAAAAAA AAAAAAAAAAAAAAAAAAAAAAAAAAAAAAAAAAAAAAAAAAAAAAAAAAAAAAAAAAAAAAAAAAAAAAAAAAAAAAAAAAAAAAAAAAAAAAA AAAAAAAAAAAAAAAAAAAAAAAAAAAAAAAAAAAAAAAAAAAAAAAAAAAAAAAAAAAAAAAAAAAAAAAAAAAAAAAAAAAAAAAAAAAAAAA [file] FqMkXrRMcwGUtNXZO3e+5JDtA7EVX/Adviser Sales+yYhHpIMpWj8a5Y5Qi2Hb0mi6fxu00sMUN8kFE0t40HfHxrGQW2Wat6tx0T4lcU [file] QexBoAn/ALLl/evp operations+xS7nfb20/LeDru2x0kgttY4Hae2WirVhp93CqZDKDUDJcgrrLSBnp26HcAr/AIWc2m+BDo4IeBjiJ4n [file] 1pP7Kl/evp operations+iaJG495eInRYuf5QmwDfU/aZDay19cBunujFb93L4WC8hXmTgoYITv6C8j6XjjQjWoIavDWwURQJ+B9p3A2cQ U64Zt3vKoP8W9YCxBVrU0/8Asqb++m45s2KB/hW8ft5B49ljsPn/nbJbyjloZnbALTStTZL76JAHRZPkdUo2oYSf+ypv76f rR/ZM181A8gAzsXkt0Yr/evp operations+tJ/Ngh50L7fC+PRe0pkqHpj0UaOcn0fq79wg5WHCp94TRBrGWnNQm33eeC2M8TJseuz0H9o VhJhXTMJ7dVMtLaut/95PBGvj8L2z8gYVr+u5f76ntI/2XN/d7T6oAQ/Gh2pJKGUoiH3rtxI64oMRdJ7BhHUrbH36Faw+9T S93jj9JsRyhTIpM1btvkxNmVn0xPnxvQVoLyDSNyeS5fifrcYWZ9+y5+1taFwUV6klgzsG7ctRE6OOA3cJgPF0lwHL5sN1r lltmOMIJO3oPPhMFhuoLKoHRfwkjervrWmRZdH5AG2jnTMH9RipU6fips2CJqIHPMBveOORURAOAVM5s0iqlpDb7mf+y5v8 Bbgmz7ry2e3EC6h+QOJ6R1qRjgc1gAXSpvHMXMXksYFI2mJ2WjdBm0+pBPsRy1f1bbC5vv3BoS2qpWYY4zK1FvoMoU+U555 AOoOlzH/zit08c4FF/vS4s1psD3WbtA6SQ3G2Gf7lvGwp2hx6jwBPuXTdsJCBTYl6/HjVskfSXRWw0E4oR7GsVAKaeBWMsJ vKqkOnhpVTbUTj6mw71WJgU/CK736Z3iS6Gi/evp operations+tc2/hCYgqIKKgU4mfsLSs8SZte/kCRD1Lc52QqC8Jzy3dE9A0rBb3e9 orMrrxmgYwXb7TrqJh7lXuvp7ASrQapxguXSSG+ot3bUH8a8lw/30/Wl/sqb+/H+harlan+E/mUliI4F4yKsDy65SV5JY/jvjO hln37I0eTV2uNkVxk6sfrd88P+AlgXNhH39r8IqHSrjqgNrGH1xOclCxVUMXBcsOfGnBLB4bXtnX3cP5Zi/evp operations+tYfivWtc0 /sg0HheOpgp1whhKDzhKD5oCM2o0p4qxznIfdXdVAnrfw4dpK7NbadgpXBPo7zCdFeK3ZlrBYot2VjASTFnQ/ZxjvQB2/9l IbuP4aL5Qs/evp operations+quoPgmBikIr2EoPylYlYNpYUtDbvt5HOkfT/1b/Cz3kE6wjNSN+HfFE+g0itMgI+lSabeWCwymNpllDxy zgbFWvtdTNlrN3TVKcU306H6d/sub++p94det96f8jyIDMDAtFW9z85YAM7XqplAEI1OWMQ1gKidSl+vBAo+Uvks7lGhjCd 4IOWnzXszBGwCWahrYsYYJxiSN9F41ALqe5mCw96/Wj+ajo90dkScAWEjx9HW4uW3p/suX++n61n/KHD1y03KvGt7btoNsz gHPUZgiR3uxlisj4j9/gFYSmCevS2Bwj3l8skK3z8Ch6i247rW7MhhoXRlOx2GKxyPHOyZAeg2AD3qU2de4Td/evp operations+tcx8K7 C8zw6Lz84z+s1jlWZiwxp5egNkbG1CCwgbuTOtoEa38a1Oy2oj1043U0Ixw3khiZQtjXanpHxzsDpQkPeCw06gLkG1g9Tp/ evp operations+rH1dyi44/Gfk3lljdHfhHqf60Gzs+67WtUHVR4vg4jUBRIDvfn1sr54ZhmOoow1YvkP3Eg/VkIwLylsn6bY4fVI3CZVG xfKGGCyjBLZGScUAdh/SK453N2w/sqX++i02BqyvMa1dj1nIkT3XhE3kwfraF5p+uvtqRZobwN8Vg5DqWaIeW+Jri/e60/w C3INh5EVQYWrq880fYh7TUYhdX9Y75TEw/AOypuzx/rR/HY634Q6psgIolSr1N9qi1PuwSUssb9iSwRgsufmaQhR67IN3xA fqUg2QuF5FHgX2Se0JK4m6eiR5OXuEA2yNhzlxrYHIvLBXRG0M6ccDvt4La/evp operations+tH9ly/30/Wuan+Itxazrp8+gS/2x/aEV g7fd1fU11M0hizctTEZIw7KlS284u/2ZeZ7t9UeC5EWUdWUwEdE92U8gbE1J971IVMLONdPBzzYKF3ooAQxn/Juo60E9wc6 Km/evp operations+tcD4L+Dz5uhKfYQxTxnXHd7x0iO1UZkjke+Jq86fGHiL4O97c7/vj6qblAOSadDQf0teblWBfR9F4auS28YAGNeBK D3ZHgl8MH/BNjji55daDf6REb51ruJA826mX4RnFBihYIDVi9loNV6buv3TWPu0b7SaI1NedOM7Z/xzoxfZjwdRYl2KcvBt 69qcxKARUiTBwguYesYjbbKAV7ZE0C4iH9O+wer06chB/CV881Q0iy0+V9j7pz1M7lFGH4mevzEkJtBa5U96OOp9fYVYPy7 ec3ba6SoG5qr9y883+9uWCQ4jUq8UBKtgqahQIF2awfAezyC4wN4h3Hu/evp operations+tB0qb++i52heq34t0taUMJRlmHS9E51UUI9 XaupYWJUtAw8mq5GFLPpeiuE8cPKoeb6e9/6fq9qVOU4WUWNJWn6pEZcOe+FXgZzk8/LY47RXl+puf06imI/2VL/sV9mdVQ R6eHv2rAw4w5jYG7iZ5n7NULwRWvYC5UlNqfaPJJmsy7N+DNVrfSqsi9ShHJaORG2AaApGId14zZQM1vaxzHwf7nsO9KunL 4AO/wD7Km/evp operations+tJ/Wv548W6g6EjPXxxGC9qnaxouDLpyPWtpjp1yLy0/rmj+MrHTta1/kGiW4tLbgJBkBYlIo8vjqNXTDSY [file] lgwTQANMWWZLDIvTyinwSTLIYKPLWCZZJX4oPGBJffueV+lFFFABRRRQAGiiigAxRRRQAUUUGgAooooAKKOlBoAKDRijpQA QPEOEAUunnPGXBPHPpqlaVqkdKVK6spztZVEOJXNKLKYZUYByIGQEUIZUAKFH1cWAQClHmnOlkhnFNCBQVJHYUBlVTYEJOC DOYRLBJD6djnIIUENORHV5ppfAUTREWPizziQyzNHYRZUP5LzFD8/XrL/mKuIrVeHw7Rve7Z2M85oIPgTzQ0IyYpixtJ5gq XSwRGCAiNnCQmCXI1WqemcWwmbN9xfRTOwMYOsibtXQRyclnF0IDLgvXdbGKpkp3GTrPZE4B/h/O53ueF28Z4izbj62uBM8 jKskjCGZjKX+fB40R9XrwXOGxbHFde5X8+1zel/sNup7RkeXu7hmqcdc+9l2WNte7idknwp5sGTDJBH2NwEu090OsVwXl97 tXbGUCJy2LpeCNDFE0Y2BqP29i18b41wTdJcWkE+uwUt6AIaoDXgoV1ldkYmNsBfOQxgBgkobgVUIXlfXgJGdHtN30C1xac mlAIGBC3deNpMtALFAAnyLBjkNDBl8rp5R23J7Rw6rzYHfj0TxvMvwDeVJHJG1p4SfnuABqC375H98SJVmN6r7FLY2eEQq4 BWZioqWoVzoizgnDryoCLIMRL9fEFjF2bJnB4GHGe0TYlVpk22HEn6yKUIMryUeeh1nwHTyiA169R/+mXDUwYf4E iSZp6N6h76Q3nPTGg4T38tOhWyZslvchwgVdVyHf1GvM8V1nb4MNnMrIxtY6Z5TTfUfAfeXwuUWZZLV6H58V80+1vm4i1BF Y3ibmrVWM7GKy+aHYjzd5GFdlqRQ1HboZkfi2Qck26ENJi5VdEighwA6kRLlAGcdrvvjbt58BUlspMVFUIgnaJLVNXdQxmO qYQmSOrB4rvpsB5gGysVvrI7ZiktEmOM7UYV8OrLSSyTPVo/2LHDj5ndR22W/FoCK1tgz9SVBgSv5tUSFQz9fui9jRdICHz 9KAPPLLSNWW+zOH6o2IfLxvEraHFcvtQTVynklWM+QYiNhnnImDgYQNmuRn9Cv4s9j54zJjcWAQvJ0JSou0MM+uDXVYx/dance director ZysPeupR2oyc4YmvcefLQoIp2czQnggJbMy8fvZOPvyd4q43ZFpqC4o1U8aFGQ4ysNA4k1tl2bdgGiezAYTLGHZzmIkMVtX Zr4Oy3OYcBi4x/1prYj1VqA4lGqEqgjKwk4zd/Gakw4NvUhBANioJ+TdvORxN1W233BnSaeyLH7OXdL4lk0hmnlFDHo9IJk 4xfscyD12yZC7Nyh03/wkVSR1X+8dT2XC2vGrzub5qdllNrSO3ALZ2WSkMa7rsbrbWiB5PR1LLtWo4m5+y1Kby85N4ScOa6 sZOdoWiCW4zQhFlyu1IilrMTFGr69q6lCDBAeH8Jc0sXuT3C+12UsI0/p9mFM1wn+9zmMmo24pB/Jd559NBRECrTinLqIAY E8R5di2oULgJPePVHIvElL/Agejs55oKP0063ETqQYldGDIpBBIH2SYhcKqE1NLtCoJLKeRLOEJAFHLZ1U6eR176rE0E5Zx By9bSG1c8c+1evhcjVxgNeBDFHJWYJLtiQSlrd3Me+HtV/kgoRKq3n3WAsW6t6gebjXyPDT7ZRXLajG+EHQ1JP13JwHEBSp G1IleY00ra59T8qZeN3Av8/lJCuFg9btv4zACRkzHUGXarQGDwedk0w1EbM4z6ICmp6XtqNxADSkFMMTfu1NN/OsaYlt6VS 78qoHSkid584AW50VuvY/SwYQiz/iOb06YUH4MlvbdKKEwwD79MYhXimr+pTny7+ey3/hu5qIFcIWgrfQp17ZwyvJVUT1rp y709KaOaj3Cj0j2zzv7rSHDuvr+JPpYRsyKnFZ9549JFDtGqklRwTmlSoZOLingGDBH5BLgQFOrfMuDrlVGl9Eo2B7dYLON 0SYBOEHUTNLDYKf3mM0tERnCMFGVJlccpfPtwkfYNKRAQRAYYBBFCRsKIKEXYXROEIl8TWQTYKWAWDXXMNCQNJWBEtTdZBM ACLmCZLRwfd1AGBWGGBTNATXEPNXlPsUJgpGDHINcDAY0VYVVdOLUDYXYwDenscYtAahwpLcnxlLALJKOESGS4ccOGAQHBR NNKZHZDOKYYK8UNqSCXfYGZWPRBROwdIVqCNKYJGRUukNcosoKHDFUARinloOmrGJAZGFDDMMLPXVOOPDUPDWWdmOkracIV [file] jT/s5Kjs9bRW9K4naZjxTKm1bkOurUDWiJC51m6IgVNSL74Pii4iI9TCCSKROWFTIMSUDYXUWSDFSJSREMQEIJVLXMOSOYM FFABRRRQBmat9+N7Gd33ufi0+L6Gs/UAVVUYtMsYKUXKC9tyCFUlLOL29mMxgycnBGrAfK70eHo3V48dGYOufkwV1OrKsB/ wCg7Z/9/lo/4TLTP+g7Z/2Dn8bAGlqjoK9JoYjL/rGv5kv2/loPjLTP+g5Z/oQu4jJBxbudU+Ey0z/oO2n/AH+Wg+MtM/6D tn/3+UiRt3F9T/hMtM/6Dln/AN/beXiSNR3JxNDg/s5sLEyfzjV+Ex0z/oO2f/e2eS1GmNmU/wCg5Z/9/loA6+iuQPjLTP8 AoO2f/f5aP+Ey0z/oOWn/AH+OjHi5Q2O/OVIKFA6GpC7t/f5aP+Ey0z/oO2n/AH+HbVk8W5C/DIOHID5LpW4j/f5aP+Ey0z /oO2f/AH+RbAp3C1D/SWWQWD7TrC7f/f5aP+Ey0z/oOWf/AH+PmJh0R7B/GPFZFN1SxUIs/f5aP+Ey0z/oO2f/AH+WgDr6K 5D/GFDMBP5KdHDl/f5aP+Ey0z/oOWf/AH+IlRi0L2P/THGUKO8JtD9u/f5aP+Ey0z/oO2n/AH+GlLe9X5W/EOVISR7CcR8v /f5aP+Ey0z/oOWf/AH+GmLi7W4E/TPJHVZ7HaT4b/f5aP+Ey0z/oO2f/AH+CtWv8C0A+MtM/6Dtp/wB/lo/4TLTP+g5af9/ loA6+iuQ/4TLTP+b3vu0Oy2oU+Ey0z/oOWn/j5zBIjtcrW+Ey0z/oO2f/AH+Wj/hMtM/6Dtn/AN/loA6+iuQ/4TLTP+g7Z/ 8Af5aP+Ey0z/oO2n/h0yRIywzcQ+Ey0z/oOWf/AH+Wj/hMtM/6Dln/AN/loA6+iuQ/4TLTP+g5Z/8Af5aP+Ey0z/eG9y5V0 +PgUb0M1F+MtM/6Dln/AN/lo/4TLTP+g7Z/9/loA6+iuQ/4TLTP+g7Z/wDf5aP+Ey0z/oO2f/q6oNEphfeB+Ey0z/oO2f8A 3+Wg+MtM/wCg5Z/9/loA6+iuQ/4TLTP+g7Z/9/lo/wCEy0z/AKDtn/3+NiQv1X8P/hMtM/6Dtn/3+Wj/OXNDJF1GnQNo/f5 aAOvorkP+Ey0z/oO2f/i4lC9x7s/oO2f/AH+ZdYp1L6L/LFINHP4XaL5k/f5aP+Ey0z/oOWf/AH+AmKs8Y2J+MtM/6Dln/w B/lo/4TLTP+g7Z/vNa7nNTffxfJ+Ey0z/oO2f/AH+Wj/hMtM/6Dtp/3+ChPg5U1P/hMtM/6Dtn/wB/lo/4TLTP+g7af9/lo A6+iuQ/4TLTP+g7Z/8Af5aP+Ey0z/zWKh4V2+GnHh0Q9G/hMtM/6Dtp/wB/lo/4TLTP+g7Z/rKl2dYVwhqwG+Ey0z/oO2f/ AH+Wj/hMtM/6Dtp/3+FjDd8M2D/hMtM/6Dtn/wB/loPjLTP+g7Z/9/loA6+iuQ/4TLTP+g5af9/lo/4TLTP+g7Z/9/loA6+ iuQ/4TLTP+g5Z/wDf5aP+Ey0z/oOWf/l9eJWbcnlV+Ey0z/oO2n/f5aP+Ey0z/oO2f/i1rKHhosmZ+Ey0z/pDWd3L9+Wj/h MtM/6Dtn/3+RwLy8Z6S/hMtM/6Dln/AN/lo/4TLTP+g7Z/9/loA6+iuQ/4TLTP+g7Z/wDf5aP+Ey0z/oO2f/i0qKAvwhpA+ Ey0z/kG6m5W9+Wj/hMtM/6Dtn/3+AqMf9L4G+MtM/6Dtp/3+Wj/ECFTQI1BcM6a/a7hOAohatP+Ey0z/oO2f/k5uU3AgCnF /wCg5Z/9/loA6+jFch/gnLbp3Q9s/wC/m8v8Fyrm/Qcs/vUv9eSFV8LdM/CZaZ/0HbP/AL/DIgELnx9XLem/+/q0ZkoIDSq 8Jlpn/QdtP+/o9k9VPHoJ/wBB2z/7/ANT84Iiv/sqFxd5J9t/AO/g8u1FUYmX/wBB2z/7/SRK25Sri/fiSgy8I12/7/LR/w AJlpn/AEHLP/l9aDIH8AuG/CZaZ/1VaX7B0/LR/wAJlpn/AEHbP/x5lAUG0OfG/CZaZ/9NLS2E3/LR/wAJlpn/AEHbP/v8t AAH4RzM/CZaZ/0ObE7J1/LR/wAJlpn/AEHbP/b1jCOO6TjY/CZaZ/8GuH7H6/LR/wAJlpn/AEHbP/c0qNWK4OpS/CZaZ/0H b/LR/wAJlpn/AEHLP/y1kMNI4XwB/CZaZ/0HbT/v8tH/CHbLeb2YKun/+/r3DuiGHBLvnbe/AEHbT/v8tH/CZaZ/0HL P/z5GQUL96Eln/wAJlpn/AEHbP/z5tK2RcB/0HLP/AL/NSU19Mxj/trMld1X11/7/HQ1t3Osbp/RhfR7Hl6yEHW2OiZ/CZa Z/0HLP/v8ALR/wgXfe7L8n/wC/z5IcoNVSc6Ckne/Qcs/+/wAtH/CZaZ/0HbP/AL/DHP36Lck/hfXow1Y3g/7/AP4w9Tcbc /Qcs/8Im6pEQL8SnI/CZaZ/0HLP/v8ALR/fjCyd6Wjg/wC/60Abmrffi+buKjQ75x57FX3gsoIJu9DuIS893xHTMXZlZDZJ MgRrAlBRQMUq4T9LOOMMWp+NFF4J9cMBOK5Z+VGPp+GRHHNu4hgZj4shSGHUQ+n5UY9h+BZPSHk1D6IJ+l2EZKZY3A7jDe/ KuqyCz5Wrdi0ZxyuoTSYe+VGMdh+WLQLCg9P8yJbF3fOAROCCZkjTi9lfODNGF+h9AcwUoorwZYxp/Ug6snvwcMGyG5dJcm /EbquWq2Smfk0Y6sUUSV2W+RB9vkJEAIaoEiu/W2aXPLYFxYgpoQYmiQLEIA+f6EU3K8dNQMI6K+VGPp+VFFABjHp+VGPYf jALPJZjB9bST5D6BBJWV8O0sOFCTodQEOOiyDvt/WatXAOQS2T7fOdO1KWRTURwJFaN0RGZUDQl+VGPp+VFFABgDsPyoI+n 5UUUAGPp+CTZhJsupbHZuN5BxgZwvavROoX2DtqRxbhiFGio/Lep8phUNXLjcSlnt0OphmtWNgE6WF0f+VFFAB+A/KjHsPy zzaDDTPorYs6U0nKQQC0M+AC7O2sUJHC6raf/AflRRQAY+n5UY+e9WJQLWOz+VGPp+VFFAB+A/Hma6clYPEDurEulEnpsgg AXH0/Gnc7B2GXJMGYk+VB+g/WslrVh5YvnQ8B1APPZGUm+TZRAauNNYFG0s+VGPp+DWWLEp6F0RX9p+QGTOWshVNd9dIJCI Y+p5JqlZalrsZGoV2cQ0Q+JXHYA40N0gJxL6WFGNDKd9NTgI0tKFXFr7dpZ+A/KiigA/CzmP90H7cAUBVXkFwc/AflRRQAY +n5UY9h+JCSQFi2Q7CrxYjqkvRTrj/KjHsPyoooACPp+EM8Z2yFYNM1R+NK4V7kTVLDO2/KjH+cUUUAFGaKKACkNFFAH/9k = Orders Orders: 3. Obesity E66.9 Plan [...] The patient was employed previously working in [employer]. He is currently on scheduled Lasix and [...] failure) (Acute) Hyperglycemia (Chronic) Renal insufficiency (Chronic) nursing home (current) use of anticoagulants (Acute) Atherosclerotic heart disease of [place] coronary artery without angina pectoris (Chronic) Encounter [...] by Floyd Cruz DO> Date Floyd Cruz DO Cosigner Signature: Date (if applicable) CC: Kulwant Godoy MD PULMONARY FUNCTION Observed: 08/15/2018 Status: F Source: [place] REPORT COMP 5:57 AM [facility] REPOSITORY [facility] Pulmonary Services/Neurology [address] [place] [address] MR#: [id number] Acct: [id number] Name: NORRIS STEIN Rep #: [id number] : 1940 77 From: Cheng Mccoy MD Referring Dr: Umm Yan, RETA-C Status: REG CLI Ordering Dr: Date: Location: [facility] Sex: M C COMPLETE PULMONARY FUNCTION TEST INTERPRETATION Brief HPI: Patient is a 77 year old male, currently under the care of Umm Yan, who presents to [facility] for complete pulmonary function tests secondary to [...] Mccoy MD> Date Cheng Mccoy MD CC: GREENHOUSE SPECIALIST-C Umm Yan; Cheng Mccoy MD; Saumya Newton MD Date Dictated: 08/14/18728 Date Transcribed: 08/14/18728 Animal Breeder: EDITA Signed PROGRESS Observed: 08/13/2018 Status: COMPLETED Source: [place] 9:11 AM [facility] REPOSITORY HNO ID: [id number] Author: Yoli Montes Ma Service: (none) Author Type: (none) Type: Progress Notes Filed: 08/13/2018 3:41 PM Note Text: Patient notified and appointment made for daron Tracker updated Yoli Montes Ma PROGRESS Observed: 08/13/2018 Status: COMPLETED Source: [place] 8:30 AM [facility] REPOSITORY HNO ID: [id number] Author: Armani Chaudhary Service: (none) Author Type: Physician Type: Progress Notes Filed: 08/13/2018 3:41 PM Note Text: 2 mg on and Sun. PROGRESS Observed: 08/13/2018 Status: COMPLETED Source: [place] 8:12 AM [facility] REPOSITORY HNO ID: [id number] Author: Yoli Montes Ma Service: (none) Author Type: (none) Type: Progress Notes Filed: 08/13/2018 3:41 PM Note Text: Spoke to patient and he verbalized understanding. Patient requested lab draw on Sunday at [facility] since getting labs done there as well. Patient said if previous provider did not agree than requested getting done tomorrow since appointment for rehab. Please advise Yoli Montes Ma PROGRESS Observed: 08/12/2018 Status: COMPLETED Source: [place] 10:04 PM [facility] REPOSITORY HNO ID: [id number] Author: Armani Chaudhary Service: (none) Author Type: Physician Type: Progress Notes Filed: 08/13/2018 3:41 PM Note Text: This note was created using Touch Payments[employer]. Subjective Norris Stein is a 77 year old male. Review of Systems Objective There were no vitals taken for this visit. Physical Exam Assessment and Plan Have patient restart coumadin at 2 mg a day on Sunday08/13/2018 and get an INR on 08/15/2018 PROGRESS Observed: 08/12/2018 Status: COMPLETED Source: [place] 3:03 PM [facility] REPOSITORY HNO ID: [id number] Author: Vanessa Mckeon RN Service: (none) Author Type: (none) Type: Progress Notes Filed: 08/12/2018 3:09 PM Note Text: patient had inr completed at [facility] patients inr is 3.0 (patients inr range is 2.0-3.0) patient is currently holding 2mg daily since 08/09/18 patients last dose change unknown at this time due to patient is a new coumadin start (07/16/18) and 2mg was the dose pt was one at First visit on 07/25/18) patient has had a [...] is having lab work for cardio at [facility] on Sunday, patient is requesting that an order for protime be sent to [facility] so he can have everything completed at one place. CHEST WITHOUT Observed: 08/12/2018 Status: F Source: [place] CONTRAST 3:00 PM [facility] REPOSITORY [facility] Imaging Services [address] [place] [address] Chest without Contrast MR#: [id number] Acct: [id number] Name: NORRIS STEIN Rep #: [id number] : 1940 M 77 From: Bacilio Mitchell MD PCP: Saumya Newton MD Status: REG CLI Study: Chest without Contrast Date of Exam: 08/12/18 Exam# [id number] Ordering Dr: Adebayo Bueno GREENHOUSE SPECIALIST-C STUDY: CT CHEST WITHOUT CONTRAST REASON FOR [...] Bacilio Mitchell MD at 15:47 EST Tel [phone], Service support , CC: RETA Bueno; Saumya Newton MD Animal Breeder: Signed PROGRESS Observed: 08/09/2018 Status: COMPLETED Source: [place] 2:49 PM [facility] REPOSITORY HNO ID: [id number] Author: Yoli Montes Ma Service: (none) Author Type: (none) Type: Progress Notes Filed: 08/09/2018 3:10 PM Note Text: Spoke to patient and gave instructions Tracker updated and appointment made Sunday Yoli Montes Ma PROGRESS Observed: 08/09/2018 Status: COMPLETED Source: [place] 11:28 AM [facility] REPOSITORY HNO ID: [id number] Author: Umm Yan Service: (none) Author Type: [...] showed ST changes. He was transferred to [facility] via ambulance. He had cardiology consult. As you recall he was evaluated in cardiovascular consultation on 07/03/2018 at [facility] for concerns of atrial fibrillation/flutter, findings compatible [...] had a repeat chest xray today at [facility], unfortunately results not available. At the office [...] Laterality Date - COLONOSCOP W/ OR W/O [facility] SPEC 04/08/15 Colonoscopy ALLERGIES Patient [...] L NC as needed, portable. ICD-10 I50.9, Taoism- no electric. Does not want to go [...] to follow per cardiology. 5. CAD in level[place] artery - ICD9: 414.01, ICD10: I25.10 Continue to follow per cardiology. Discussed treatment plan and patient voices understanding. Patient's questions answered appropriately. Medications and potential side effects were discussed and patient voices understanding. Return to the office as scheduled or as needed for worsening/no improvement. Umm Yan APRN.CNP CNOV Observed: 08/09/2018 Status: COMPLETED Source: [place] 11:20 AM [facility] REPOSITORY Office Visit (FAMPWS) NORRIS STEIN ([id number]) 1940 M Date Time Provider Department 08/09/18 11:20 AM UMM YAN ([place]) FAMPWS During your visit today, we [...] showed ST changes. He was transferred to [facility] via ambulance. He had cardiology consult. As you recall he was evaluated in cardiovascular consultation on 07/03/2018 at [facility] for concerns of atrial fibrillation/flutter, findings compatible [...] had a repeat chest xray today at [facility], unfortunately results not available. At the office [...] Laterality Date - COLONOSCOP W/ OR W/O [facility] SPEC 04/08/15 Colonoscopy ALLERGIES Patient [...] L NC as needed, portable. ICD-10 I50.9, Taoism- no electric. Does not want to go [...] to follow per cardiology. 5. CAD in level[place] artery - ICD9: 414.01, ICD10: I25.10 Continue to follow per cardiology. Discussed treatment plan and patient voices understanding. Patient's questions answered appropriately. Medications and potential side effects were discussed and patient voices understanding. Return to the office as scheduled or as needed for worsening/no improvement. Umm Yan APRN.AUSTEN Yan APRN.AUSTEN 08/09/2018 12:24 PM Signed 1. Start loratadine daily. 2. Schedule the PFTs. 3. 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] Cardiomyopathy, unspecified type (HCC) [I42.9] Chronic systolic heart failure (HCC) [I50.22] CAD in levelock artery [I25.10] Order(s):SPIROMETRY WITH DILATOR IF OBSTRUCTED [2491064] Order #: [id number] FUTURE CONSULT TO PULM/CRITICAL CARE [19991013] Order #: [id number]: 1 Prescriptions as of 08/09/2018 Sig: FUROSEMIDE [...] AND LATERAL Observed: 08/09/2018 Status: F Source: [place] 9:43 AM [facility] REPOSITORY [facility] Imaging Services [address] [place] [address] Chest PA and Lateral MR#: [id number] Acct: [id number] Name: NORRIS STEIN Rep #: [id number] : 1940 M 77 From: Ken Donato MD PCP: Aman BHANDARI,Saumya Status: REG RCR Study: Chest PA and Lateral Date of Exam: 08/09/18 Exam# [id number] Ordering Dr: Kulwant Godoy MD STUDY: X-RAY [...] CC: Saumya Newton MD; Kulwant Godoy MD Animal Breeder: Signed PROGRESS Observed: 08/09/2018 Status: COMPLETED Source: [place] 9:10 AM [facility] REPOSITORY HNO ID: [id number] Author: Saumya Newton Service: (none) Author Type: Physician Type: Progress Notes Filed: 08/09/2018 3:10 PM Note Text: Hold coumadin for now; recheck INR on Sunday Saumya Newton MD PROGRESS Observed: 08/09/2018 Status: COMPLETED Source: [place] 8:35 AM [facility] REPOSITORY HNO ID: [id number] Author: Vanessa Mckeon RN Service: (none) Author Type: (none) Type: Progress Notes Filed: 08/09/2018 8:37 AM Note Text: patient had inr completed at [facility] patients inr is 5.3 (patients inr [...] F Source: [place] PROFILE (BMP) 8:23 AM [facility] REPOSITORY TYPE CODE TESTS RESULT OUT OF [...] GAP 9 Performed By: #### L500.2500 #### [facility] [address] [place], [place], [address] PROGRESS Observed: 07/31/2018 Status: COMPLETED Source: [place] 9:03 AM [facility] REPOSITORY HNO ID: [id number] Author: Saumya Newton Service: (none) Author Type: [...] to 40 mg daily. A-fib: follows with Business Services Manager, Dr. Godoy. INR is managed by PCP, goes to coumadin clinic. Is taking Coumadin daily. Past medical history, appointments, medications, allergies reviewed. Previous Medical History PAST MEDICAL HISTORY Diagnosis Date - DM (diabetes mellitus) (HCC) - Essential hypertension, benign - Other and unspecified hyperlipidemia - Other specified family circumstances Previous Surgical History PAST SURGICAL HISTORY Procedure Laterality Date - COLONOSCOP W/ OR W/O [facility] SPEC 04/08/15 Colonoscopy Family History [...] L NC as needed, portable. ICD-10 I50.9, Taoism- no electric. Does not want to go [...] - PT Sec 07/22/2018 Test sent to [facility]. - PT INR 07/22/2018 Test sent to [facility]. - Protein, Total 07/22/2018 6.8 - Albumin [...] MD CNOV Observed: 07/31/2018 Status: COMPLETED Source: [place] 9:00 AM [facility] REPOSITORY Office Visit (FAMPWS) NORRIS STEIN ([id number]) 1940 M Date Time Provider Department 07/31/18 9:00 AM [place], SAUMYA D FAMPWS During your visit today, we recorded [...] to 40 mg daily. A-fib: follows with Business Services Manager, Dr. Godoy. INR is managed by PCP, goes to coumadin clinic. Is taking Coumadin daily. Past medical history, appointments, medications, allergies reviewed. Previous Medical History PAST MEDICAL HISTORY Diagnosis Date - DM (diabetes mellitus) (HCC) - Essential hypertension, benign - Other and unspecified hyperlipidemia - Other specified family circumstances Previous Surgical History PAST SURGICAL HISTORY Procedure Laterality Date - COLONOSCOP W/ OR W/O [facility] SPEC 04/08/15 Colonoscopy Family History [...] L NC as needed, portable. ICD-10 I50.9, Taoism- no electric. Does not want to go [...] - PT Sec 07/22/2018 Test sent to [facility]. - PT INR 07/22/2018 Test sent to [facility]. - Protein, Total 07/22/2018 6.8 - Albumin [...] Chronic atrial fibrillation (HCC) [I48.2] Order(s):HGB A1C [YHUGN1A] Order #: [id number] PROTHROMBIN TIME/PT [SQPT] Order #: [id number] furosemide (LASIX) 40 mg tabletTake 1 tablet [...] CARDIOLOGY VISIT Observed: 07/29/2018 Status: F Source: [place] REPORT 2:07 PM [facility] REPOSITORY [facility] [address] [place] [address] OFFICE VISIT Date of Service: 07/29/18 MR#: [id number] Acct: [id number] Name: NORRIS STEIN Rep #: [id number] : 1940 Provider: Kulwant Godoy MD Age/Sex: 77/M Location: [facility] Status: Signed HPI HPI Details: NORRIS STEIN, is a 77 M who presents to the office today for outpatient cardiovascular follow-up. 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 Atherosclerosis of [place] coronary artery of [place] heart without angina pectoris I25.10 Plan At [...] controlled. 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 He is considering changing his anticoagulant therapy monitoring from his [facility] group to the [facility]. He will notify the office [...] Code Off vis,est,level 4 Diagnoses Atherosclerosis of [place] coronary artery of [place] heart without angina pectoris I25.10 [place] vs. transplanted heart: [place] heart S/P coronary artery stent placement Z95.5 Atrial fibrillation and flutter I48.91; I48.92 Cardiomyopathy I42.9 Chronic systolic congestive heart failure I50.22 Heart failure type: systolic Heart failure chronicity: chronic Hyperlipidemia, unspecified hyperlipidemia type E78.5 Hyperlipidemia type: unspecified Essential hypertension I10 nursing home current use of anticoagulant Z79.01 Coding Level of Care Code Off vis,est,level 4 Diagnoses Atherosclerosis of [place] coronary artery of [place] heart without angina pectoris I25.10 [place] vs. transplanted heart: [place] heart S/P coronary artery stent placement Z95.5 Atrial fibrillation and flutter I48.91; I48.92 Cardiomyopathy I42.9 Chronic systolic congestive heart failure I50.22 Heart failure type: systolic Heart failure chronicity: chronic Hyperlipidemia, unspecified hyperlipidemia type E78.5 Hyperlipidemia type: unspecified Essential hypertension I10 nursing home current use of anticoagulant Z79.01 07/29/18 1407 <Electronically signed by Kulwant Godoy MD> Date Kulwant Godoy MD Cosigner Signature: Date (if applicable) CC: Saumya Newton MD 12 LEAD EKG PERFORMED Observed: 07/29/2018 Status: F Source: [facility] 12:01 PM [facility] REPOSITORY [facility] [address] [place] [address] 12 Lead EKG performed by [facility] 07/29/18 1201 MR#: [id number] Acct: [id number] Name: NORRIS STEIN Rep #: [id number] : 1940 77 From: Kulwant Godoy MD Attending Dr: Kulwant Godoy MD Status: REG AMB Ordering Dr: Kulwant Godoy MD Date: 07/29/18 Location: [facility] Sex: M C Admitted: [facility]/12 Lead EKG performed by [facility] ECG Report Interpretation Sinus Bradycardia Electronically signed on 07/29/2018 at 14:52 by Kulwant Godoy [employer] Version [id number] 07/29/18 1454 Date Kulwant Godoy MD CC: Date Dictated: 07/29/18 120 Date Transcribed: 07/29/181200 Animal Breeder: PM Signed [facility] Observed: 07/26/2018 Status: COMPLETED Source: [place] 12:00 AM [facility] REPOSITORY Telephone ([facility]) NORRIS STEIN ([id number]) 1940 M Date Time Provider Department 07/26/18 ANAM STRICKLAND ([facility]) [facility] During your visit today, we recorded the following information about you: Marry Donato LPN 07/26/2018 3:51 PM Signed Ben Fregoso Jr patient son in law calling asking for rx to change oxygen concentrator to liquid oxygen since they do not have electric and only has small tank that fire department let him use. Wants rx faxed to [facility] so Liquid tank can be delivered before the weekend. Patient was seen in urgent care and has fluid in his lungs and has appt to see Dr Godoy on Sunday. son in law says Norris does not use oxygen all the time but uses 2 liters when he is short of breath. Gave me fax number for [facility] [phone], he had spoke to them already today. Aware PCP is out of office until 07/31/2018. Please advise Anam Strickland APRN.CNP 07/26/2018 4:12 PM Signed Order for home oxygen ordered. Can resend [facility], notify patient. Anam Strickland APRN.AUSTEN Cedillo Cma 07/26/2018 4:16 PM Signed Rx faxed, patient notified via Anam Strickland APRN.CNP 07/26/2018 4:26 PM Signed Addended by: ANAM STRICKLAND CNP on: 07/26/2018 04:26 PM Modules accepted: Orders Analisa Cedillo [facility] 07/26/2018 4:29 PM Signed New Rx faxed, Allergies As of Date: 07/26/2018 (No Known Allergies) Date Reviewed: 07/25/2018 Reviewed by: Sarah Mena Ma - Fully Assessed Reason for Visit: wants rx for liquid oxygen [Other] Primary Visit Diagnosis:Acute on chronic congestive heart failure, unspecified heart failure type (HCC) [I50.9] Order(s):COMPOUNDED PRESCRIPTIONHome oxygen @ 2 L NC as needed, portable. ICD-10 I50.9, Taoism- no electric. Does not want to go [...] L NC as needed, portable. ICD-10 I50.9, Taoism- no electric. Does not want to go to generator Medications Discontinued During This Encounter COMPOUNDED PRESCRIPTION 1 Ea* 0 07/26/2018 07/26/2018 Class: Print RX Sig: Home oxygen @ 2 L NC, with portable , ICD-10: I50.9 Disc: Reason for discontinue is not on file. Encounter Status:Closed by ANALISA CEDILLO CMA on 07/26/18 XR CHEST 2V FRONTAL/LAT Observed: 07/25/2018 Status: F Source: [place] 11:02 AM [facility] REPOSITORY * * *Final Report* [...] both lung bases. Otherwise no acute process. Animal Breeder: PSCB Transcribe Date/Time: Jul 25 2018 12:35P Dictated by : GEMMA COTTON MD This examination was interpreted and the report reviewed and electronically signed by: GEMMA COTTON MD on Jul 25 2018 12:36PM EST [id number] PROGRESS Observed: 07/25/2018 Status: COMPLETED Source: [place] 10:53 AM [facility] REPOSITORY HNO ID: [id number] Author: Minoo Wheeler (Rt) Oli Lyle Service: (none) Author Type: Abrasive Band Winder Type: Progress Notes Filed: 07/25/2018 11:02 AM [...] AM PROGRESS Observed: 07/25/2018 Status: COMPLETED Source: [place] 10:24 AM [facility] REPOSITORY HNO ID: [id number] Author: Rafael Fenton Service: (none) Author Type: [...] sodium diet. 4. Coronary artery disease involving levelock heart, angina presence unspecified, unspecified vessel or lesion type - ICD9: 414.01, ICD10: I25.10 Continue Billinta. Discuss plavix with cardiology since he has concerns about cost. 5. Atrial fibrillation, unspecified type (HCC) - ICD9: 427.31, ICD10: I48.91 He is aware of increase bleeding risk on warfarin. He is interested in newer anticoagulants. D/w PCP. Rafael Fenton MD CNOV Observed: 07/25/2018 Status: COMPLETED Source: [place] 9:45 AM [facility] REPOSITORY Office Visit (WSTR) NORRIS STEIN ([id number]) 1940 M Date Time Provider Department 07/25/18 9:45 AM [facility] During your visit today, we recorded the [...] sodium diet. 4. Coronary artery disease involving levelock heart, angina presence unspecified, unspecified vessel or [...] type (HCC) [I50.9] Coronary artery disease involving levelock heart, angina presence unspecified, unspecified vessel or lesion type [I25.10] Atrial fibrillation, unspecified type (HCC) [I48.91] Order(s):XR CHEST 2V FRONTAL/LAT [[id number]] Order #: [id number] FUTURE Prescriptions as of 07/25/2018 Sig: ALBUTEROL [...] 07/25/18 PROGRESS Observed: 07/25/2018 Status: COMPLETED Source: [place] 9:42 AM [facility] REPOSITORY HNO ID: [id number] Author: John Casno Service: (none) Author Type: Physician Type: Progress Notes Filed: 07/25/2018 9:42 AM Note Text: INR therapeutic. Continue current coumadin dosage and follow up in 2 weeks. PROGRESS Observed: 07/25/2018 Status: COMPLETED Source: [place] 9:33 AM [facility] REPOSITORY HNO ID: [id number] Author: Vanessa Mckeon RN Service: (none) Author Type: (none) Type: Progress Notes Filed: 07/25/2018 9:35 AM Note Text: patient had inr completed at [facility] patients inr is 2.3 (patients inr range [...] change. PROTIME Collected: 07/22/2018 Status: F Source: [place] 7:48 AM [facility] REPOSITORY TYPE CODE TESTS RESULT OUT OF REFERENCE UNITS RANGE LAB PSEC 9.7-13.0 sec Test PT sent to [facility]. Result Comment: Account Credited [facility] LAB INR 0.9-1.3 Test sent to PT INR [facility]. Result Comment: Account Credited [facility] COMP METABOLIC PANEL Collected: 07/22/2018 Status: F Source: [place] 7:48 AM [facility] REPOSITORY TYPE CODE TESTS RESULT OUT OF REFERENCE UNITS RANGE LAB TP 6.3-8.0 g/dL Protein, Total 6.8 LAB ALB 3.9-4.9 g/dL Low Albumin 3.8 LAB CA 8.5-10.2 mg/dL Calcium, Total 8.8 LAB TBIL 0.2-1.3 mg/dL Bilirubin, Total 0.6 LAB ALKP 38-113 U/L Alkaline Phosphatase 62 LAB AST 14-40 U/L AST 25 LAB GLU 74-99 mg/dL Glucose High 114 Result Comment: The [place] Diabetes Association (ADA) provides guidance for cutoff [...] Standards of Medical Care in Diabetes 2016, [place] [employer] Association. Diabetes Care. 2016.39(Suppl 1). LAB [...] GFR. Performed By: #### CMP, HBA1C #### [facility] [address] [place], [place] [address] HEMOGLOBIN A1C Collected: 07/22/2018 Status: F Source: [place] 7:48 AM [facility] REPOSITORY TYPE CODE TESTS RESULT OUT OF REFERENCE UNITS RANGE LAB HGBA1C 4.3-5.6 % High Hemoglobin A1c 6.7 Result Comment: [place] Diabetes Association guidelines indicate that patients with HgbA1c in the range 5.7-6.4% are at increased risk for development of diabetes, and intervention by lifestyle modification may be beneficial. HgbA1c greater or equal to 6.5% is considered diagnostic of diabetes. LAB HBA0 mg/dL Est. Average Glucose 146 Result Comment: eAG: (Estimated average glucose) is a calculated value from HgbA1c and is major account representative of the average blood glucose level in the last 2-3 month period. Performed By: #### CMP, HBA1C #### [facility] [address] [place], [place] [address] PROTHROMBIN TIME W/INR Collected: 07/22/2018 Status: F Source: [place] 7:48 AM [facility] REPOSITORY TYPE CODE TESTS RESULT OUT OF RANGE REFERENCE UNITS LAB L300.4150 11.7-14.9 SECONDS High PROTIME 27.9 LAB L300.4200 Normal INR 2.6 Performed By: #### L300.3900 #### [facility] [address] [place], [address] CR - HISTORY AND Observed: 07/18/2018 Status: F Source: [place] PHYSICAL 1:13 PM [facility] REPOSITORY [facility] Cardiac Rehab [address] [place] [address] CR - History AND Physical MR#: [id number] Acct: [id number] Name: NORRIS STEIN Rep #: [id number] : 1940 77 From: Cindy Graff RN [...] Advanced Directives - Advanced Directives Power of Carbonating Stone Cleaner: No Living Will: No Advance Directives Information Provided: Yes Advance Directives on File: No DNR Order?:: No Past Medical History - Past Medical Illness Medical History: Past Medical History (Last Updated 07/18/18 @ 10:50 by Cindy Graff RN) 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 Left click = Reports (Quanah) Review of Present Symptoms: Reports: Shortness of [...] Status: F Source: [place] 9:12 AM [facility] REPOSITORY Order Comment: DR. NEWTON WANTS THE [...] 7 Performed By: #### L500.4050, L500.4100 #### [facility] [address] [place], [address] LIPID PROFILE Collected: 07/18/2018 Status: F Source: [place] 9:12 AM [facility] REPOSITORY Order Comment: DR. NEWTON WANTS THE [...] 34 Performed By: #### L500.4050, L500.4100 #### [facility] [address] [place], [place], [address] HEMOGLOBIN A1C Collected: 07/18/2018 Status: F Source: [place] 9:12 AM [facility] REPOSITORY Order Comment: DR. NEWTON WANTS THE A1C CMP LIPID WANTS THE CMP PT TYPE CODE TESTS RESULT OUT OF RANGE REFERENCE UNITS LAB L501.9985 4.2-6.3 % High HGB A1C 7.1 Performed By: #### L501.9985 #### [facility] [address] [place], [place], [address] PROTHROMBIN TIME W/INR Collected: 07/18/2018 Status: F Source: [place] 9:12 AM [facility] REPOSITORY Order Comment: DR. NEWTON WANTS THE A1C CMP LIPID WANTS THE CMP PT TYPE CODE TESTS RESULT OUT OF REFERENCE UNITS RANGE LAB L300.4150 11.7-14.9 SECONDS High PROTIME 53.2 LAB L300.4200 High alert INR 5.9 Result Comment: CRITICAL VALUE VERIFIED. CALLED TO SORIN SKINNER 07/18/18 1101 Bernardo Kwan RESULTS READ BACK BY SAME. Performed By: #### L300.3900 #### [facility] [address] [place], [address] CNOV Observed: 07/16/2018 Status: COMPLETED Source: [place] 10:00 AM [facility] REPOSITORY Office Visit (FAMPWS) NORRIS STEIN ([id number]) 1940 M Date Time Provider Department 07/16/18 [...] Yes TRANSITION CARE MANAGEMENT (TCM) INITIAL CONTACT Qa Automation Developer Outreach ? Provider Action/FYI: ? - Returned call to pt to setup an appt for TCM within 7-14 days of discharge. ? - Pt reports feeling pretty well today. Notified MA that he completed blood work at [facility] (including INR) and we should be getting these results. Asks if other labs need completed. After review pt should only need A1c which can be done in the office or same day at the lab. ? - Pt states he will be follow up with Business Services Manager at [facility] ([facility]), Dr. Godoy. Labs were placed today to complete at [facility] from Cardiology. ? - Pt has regularly scheduled OV on 07/31/18 and wonders if this appt will need kept. His and himself have appt's that day. Updated pt that we will discuss at upcoming appt to keep it scheduled as is. ? - INR today on lab work was 1.2 from results at [facility]. ? ? Initial contact with patient [...] Laterality Date - COLONOSCOP W/ OR W/O [facility] SPEC 04/08/15 Colonoscopy Family History [...] OVER WITH 5YR LOOKBACK Completed Data reviewed [facility] External Records ASSESSMENT/PLAN: 1. Hospital discharge [...] Past Histories independently gathered by the clinical support services specialist and the remaining scribed note accurately describes my personal service to the patient. Saumya Newtno MD The documentation for this note was completed by Lamar Rivero Ma acting as scribe for Saumya [place] MD. July 16, 2018 10:02 AM. I have reviewed the patient?s last hospital course including diagnostic testing performed during this hospitalization, their discharge medications, and my assessment and plan with the patient and any family members present at today?s visit. Referring Provider: SAUMYA NEWTON [[id number]] Allergies As of Date: 07/16/2018 (No Known [...] insulin (HCC) [E11.9] Order(s):UA DIP, URINE (POC) [[id number]] Order #: [id number]. #:[id number] albuterol (PROVENTIL) 2.5 mg /3 mL (0.083 %) nebulizer solutionUse 3 mL via nebulizer every 4 hours as needed for Wheezing/Shortness of Breath. Use over 5-15minutes.Disp: 50 VialRfl: 3 codeine-guaiFENesin (ROBITUSSIN AC) 10-100 mg/5 mL syrupTake 5 mL by mouth three times daily as needed for Cough for up to 30 days.Disp: 120 mLRfl: 1 OXYGEN CONCENTRATOR 2-3 LITER/MIN [[id number]] Order #: [id number] LORazepam (ATIVAN) 0.5 mg tabTake 1 tablet [...] 07/16/18 PROGRESS Observed: 07/16/2018 Status: COMPLETED Source: [place] 9:55 AM [facility] REPOSITORY [facility] ID: [id number] Author: Saumya [place] Service: (none) Author Type: [...] Yes TRANSITION CARE MANAGEMENT (TCM) INITIAL CONTACT Qa Automation Developer Outreach ? Provider Action/FYI: ? - Returned call to pt to setup an appt for TCM within 7-14 days of discharge. ? - Pt reports feeling pretty well today. Notified MA that he completed blood work at [facility] (including INR) and we should be getting these results. Asks if other labs need completed. After review pt should only need A1c which can be done in the office or same day at the lab. ? - Pt states he will be follow up with Business Services Manager at [facility] ([facility]), Dr. Godoy. Labs were placed today to complete at [facility] from Cardiology. ? - Pt has regularly scheduled OV on 07/31/18 and wonders if this appt will need kept. His and himself have appt's that day. Updated pt that we will discuss at upcoming appt to keep it scheduled as is. ? - INR today on lab work was 1.2 from results at [facility]. ? ? Initial contact with patient [...] Laterality Date - COLONOSCOP W/ OR W/O [facility] SPEC 04/08/15 Colonoscopy Family History [...] OVER WITH 5YR LOOKBACK Completed Data reviewed [facility] External Records ASSESSMENT/PLAN: 1. Hospital discharge [...] Past Histories independently gathered by the clinical support services specialist and the remaining scribed note accurately [...] F Source: [place] (BMP) 8:57 AM [facility] REPOSITORY Order Comment: PATIENT STATED THERE WAS AN A1C ORDERED FROM DR NEWTON, [facility] PIPE FITTER SUPERVISOR MAINTENANCE JORDON, STATES THEY ARE NOT DUE UNTIL AFTER [...] GAP 6 Performed By: #### L500.2500 #### [facility] [address] [place], [address] PROTHROMBIN TIME W/INR Collected: 07/12/2018 Status: F Source: [place] 8:57 AM [facility] REPOSITORY TYPE CODE TESTS RESULT OUT OF REFERENCE UNITS RANGE LAB L300.4150 11.7-14.9 SECONDS High PROTIME 35.5 LAB L300.4200 High alert INR 3.5 Result Comment: CRITICAL VALUE VERIFIED. CALLED TO OFFICE LOCATED WITHIN [facility] 07/12/18 1053 Migdalia Cordova. RESULTS READ BACK BY SAME . Performed By: #### L300.3900 #### [facility] [address] [place], [address] 12 LEAD ELECTROCARDIOGRAM Observed: 07/11/2018 Status: F Source: [place] 3:26 PM [facility] REPOSITORY [facility] Cardiovascular Services [address] [place] [address] 12 Lead EKG 07/04/18 1649 MR#: [id number] Acct: [id number] Name: JASON STEINJIGNESH Giraldo Rep #: [id number] : 1940 77 From: Kulwant Godoy MD Attending Dr: Jhon Garcia MD Status: DIS IN Ordering Dr: Kulwant Godoy MD Date: 07/04/18 Location: [facility] Sex: M C Admitted: 07/02/18 Test Reason : Blood Pressure : / mmHG Vent. Rate : 075 BPM Atrial Rate : 075 BPM P-R Int : 160 ms QRS Dur : 086 ms QT Int : 420 ms P-R-T Axes : 063 052 054 degrees QTc Int : 469 ms Sinus rhythm with Premature atrial complexes Otherwise normal ECG Confirmed by MARCIAL BHANDARI, KULWANT ([id number]), deputy editor in chief AUBREY STEIN ([id number]) on 07/11/2018 3:25:46 PM Referred By: Confirmed By:KULWANT GODOY MD 07/11/18 1525 Date Kulwant Godoy MD CC: Saumya [place] MD; Jhon Garcia MD; Kulwant Godoy MD Signed 12 LEAD ELECTROCARDIOGRAM Observed: 07/11/2018 Status: F Source: [place] 3:26 PM [facility] REPOSITORY [facility] Cardiovascular Services [address] [place] [address] 12 Lead EKG 07/04/18 1649 MR#: [id number] Acct: [id number] Name: NORRIS STEIN Rep #: [id number] : 1940 77 From: Kulwant Godoy MD Attending Dr: Jhon Garcia MD Status: DIS IN Ordering Dr: Kulwant Godoy MD Date: 07/04/18 Location: [facility] Sex: M C Admitted: 07/02/18 Test Reason : Blood Pressure : / mmHG Vent. Rate : 073 BPM Atrial Rate : 073 BPM P-R Int : 158 ms QRS Dur : 086 ms QT Int : 422 ms P-R-T Axes : 069 053 057 degrees QTc Int : 464 ms Sinus rhythm with Premature supraventricular complexes Otherwise normal ECG Confirmed by MARCIAL BHANDARI, KULWANT ([id number]), deputy editor in chief AUBREY STEIN ([id number]) on 07/11/2018 3:25:54 PM Referred By: Confirmed By:KULWANT GODOY MD 07/11/18 1525 Date Kulwant Godoy MD CC: Saumya [place] MD; Jhon Garcia MD; Kulwant Godoy MD Signed 12 LEAD ELECTROCARDIOGRAM Observed: 07/11/2018 Status: F Source: [place] 3:14 PM [facility] REPOSITORY [facility] Cardiovascular Services [address] [place] [address] 12 Lead EKG 07/05/18 0657 MR#: [id number] Acct: [id number] Name: NORRIS STEIN Rep #: [id number] : 1940 77 From: Kulwant Godoy MD Attending Dr: Jhon Garcia MD Status: DIS IN Ordering Dr: Kulwant Godoy MD Date: 07/05/18 Location: [facility] Sex: M C Admitted: 07/02/18 [...] ECG Confirmed by MARCIAL BHANDARI, KULWANT ([id number]), deputy editor in chief AUBREY STEIN ([id number]) on 07/11/2018 3:13:42 PM Referred By: RADHA Confirmed By:KULWANT GODOY MD 07/11/18 1513 Date Kulwant Godoy MD CC: Saumya [place] MD; Jhon Garcia MD; Kulwant Godoy MD Signed 12 LEAD ELECTROCARDIOGRAM Observed: 07/11/2018 Status: F Source: [place] 3:14 PM [facility] REPOSITORY [facility] Cardiovascular Services [address] [place] [address] 12 Lead EKG 07/05/18 0527 MR#: [id number] Acct: [id number] Name: NORRIS STEIN Rep #: [id number] : 1940 77 From: Kulwant Godoy MD [...] occasional PACs Abnormal ECG Confirmed by KULWANT GODOY MD ([id number]), deputy editor in chief AUBREY STEIN ([id number]) on 07/11/2018 3:14:25 PM Referred By: RADHA Confirmed By:KULWANT GODOY MD 07/11/18 151 Date Kulwant Godoy MD CC: Werner Wall MD; Saumya [place] MD; Jhon Garcia MD Signed 12 LEAD ELECTROCARDIOGRAM Observed: 07/11/2018 Status: F Source: [place] 3:13 PM [facility] REPOSITORY [facility] Cardiovascular Services [address] [place] [address] 12 Lead EKG 07/05/18 0856 MR#: [id number] Acct: [id number] Name: SARITANORRIS J Rep #: [id number] : 1940 77 From: Kulwant Godoy MD Attending Dr: Jhon Garcia MD Status: DIS IN Ordering Dr: Kulwant Godoy MD Date: 07/05/18 Location: [facility] Sex: M C Admitted: 07/02/18 [...] normal ECG Confirmed by KULWANT GODOY MD ([id number]), deputy editor in chief AUBREY STEIN ([id number]) on 07/11/2018 3:13:27 PM Referred By: MARCIAL Confirmed By:KULWANT GODOY MD 07/11/18 5639 Date Kulwant Godoy MD CC: Saumya [place] MD; Jhon Garcia MD; Kulwant Godoy MD Signed 12 LEAD ELECTROCARDIOGRAM Observed: 07/11/2018 Status: F Source: [place] 2:19 PM [facility] REPOSITORY [facility] Cardiovascular Services [address] [place] [address] 12 Lead EKG 07/06/18 0542 MR#: [id number] Acct: [id number] Name: NORRIS STEIN Rep #: [id number] : 1940 77 From: Kulwant Godoy MD Attending Dr: Jhon Garcia MD Status: DIS IN Ordering Dr: Werner Wall MD Date: 07/06/18 Location: [facility] Sex: M C Admitted: 07/02/18 Test Reason : AM EKG Blood Pressure : / mmHG Vent. Rate : 054 BPM Atrial Rate : 054 BPM P-R Int : 172 ms QRS Dur : 092 ms QT Int : 480 ms P-R-T Axes : 063 051 054 degrees QTc Int : 455 ms Sinus bradycardia Otherwise normal ECG Confirmed by MARCIAL BHANDARI, KULWANT ([id number]), deputy editor in chief AUBREY STEIN ([id number]) on 07/11/2018 2:19:24 PM Referred By: DR GARCIA Confirmed By:KULWANT GODOY MD 07/11/18 1419 Date Kulwant Godoy MD CC: Werner Wall MD; Saumya [place] MD; Jhon Garcia MD Signed 12 LEAD ELECTROCARDIOGRAM Observed: 07/09/2018 Status: F Source: [place] 3:50 PM [facility] REPOSITORY [facility] Cardiovascular Services [address] [place] [address] 12 Lead EKG 07/03/18 0800 MR#: [id number] Acct: [id number] Name: NORRIS STEIN Rep #: [id number] : 1940 77 From: Kulwant Godoy MD Attending Dr: Jhon Garcia MD Status: DIS IN Ordering Dr: Jhon Garcia MD Date: 07/03/18 Location: [facility] Sex: M C Admitted: 07/02/18 Test Reason : RHYTHM CHANGE Blood Pressure : / mmHG Vent. Rate : 134 BPM Atrial Rate : 144 BPM P-R Int : 000 ms QRS Dur : 080 ms QT Int : 350 ms P-R-T Axes : 000 057 077 degrees QTc Int : 522 ms Atrial flutter Abnormal ECG Confirmed by KULWANT GODOY MD ([id number]), deputy editor in chief AUBREY STEIN ([id number]) on 07/09/2018 3:50:03 PM Referred By: RADHA Confirmed By:KULWANT GODOY MD 07/09/18 1550 Date Kulwant Godoy MD CC: Saumya [place] MD; Jhon Garcia MD Signed 12 LEAD ELECTROCARDIOGRAM Observed: 07/09/2018 Status: F Source: [place] 3:49 PM [facility] REPOSITORY [facility] Cardiovascular Services [address] [place] [address] 12 Lead EKG 07/04/18 0611 MR#: [id number] Acct: [id number] Name: NORRIS STEIN Rep #: [id number] : 1940 77 From: Kulwant Godoy MD Attending Dr: Jhon Garcia MD Status: DIS IN Ordering Dr: Werner Wall MD Date: 07/04/18 Location: [facility] Sex: M C Admitted: 07/02/18 [...] abnormality Prolonged QT Abnormal ECG Confirmed by KULWANT GODOY MD ([id number]), deputy editor in chief AUBREY STEIN ([id number]) on 07/09/2018 3:48:51 PM Referred By: DR GODOY Confirmed By:KULWANT GODOY MD 07/09/18 1548 Date Kulwant Godoy MD CC: Werner Wall MD; Saumya [place] MD; Jhon Garcia MD Signed PROTHROMBIN TIME W/INR Collected: 07/08/2018 Status: F Source: [place] 10:18 AM [facility] REPOSITORY Order Comment: Send Results To: Dr. Godoy Reason for Laboratory Test Coumadin TYPE CODE TESTS RESULT OUT OF RANGE REFERENCE UNITS LAB L300.4150 11.7-14.9 SECONDS High PROTIME 19.1 LAB L300.4200 Normal INR 1.6 Performed By: #### L300.3900 #### [facility] [address] [place], [address] BASIC METABOLIC Collected: 07/08/2018 Status: F Source: [place] PROFILE (BMP) 10:18 AM [facility] REPOSITORY Order Comment: Send Results To: Dr. [...] GAP 8 Performed By: #### L500.2500 #### [facility] [address] [place], [address] DISCHARGE SUMMARY Observed: 07/06/2018 Status: F Source: [place] 7:39 PM [facility] REPOSITORY [facility] Medical Records Department [address] [place] [address] Discharge Summary 07/06/181927 MR#: [id number] Acct: [id number] Name: NORRIS STEIN Rep #: [id number] : 1940 77 From: Jhon Garcia MD PCP: Saumya [place] MD Status: DIS IN Y Location: [place] [address] Discharge Date and Diagnosis Date of Admission: [...] 50 Code Visit Inpatient E AND M: 55192 Disch Hosp 07/06/189 <Electronically signed by Jhon Garcia MD> Date Jhon Garcia MD [facility] Signature (if applicable): Date CC: Saumya [place] MD; Jhon Garcia MD Signed DISCHARGE INSTRUCTION Observed: 07/06/2018 Status: F Source: [place] 5:04 PM [facility] REPOSITORY [facility] Medical Records Department [address] [place] [address] Instructions for Home/Discharge Instructions 07/06/18 1658 MR#: [id number] Acct: [id number] Name: NORRIS STEIN Rep #: [id number] : 1940 77 From: Jhon Garcia MD [...] at your follow-up appointment, if applicable. 07/06/18 0130 <Electronically signed by Jhon Garcia MD> Date Jhon Garcia MD CC: Saumya [place] MD; Kulwant Godoy MD BEDSIDE GLUCOSE Collected: 07/06/2018 Status: F Source: [place] 4:38 PM [facility] REPOSITORY TYPE CODE TESTS RESULT OUT OF REFERENCE UNITS RANGE LAB L501.080 70-110 mg/dL High BEDSIDE GLU 117 Result Comment: MANAGEMENT OF PATIENT CARE PER NURSING PROTOCOL Performed By: #### L501.080 #### [facility] Point of Care [address] [place], [place] [address] PARTIAL THROMBOPLAST Collected: 07/06/2018 Status: F Source: [place] TIME 4:15 PM [facility] REPOSITORY TYPE CODE TESTS RESULT OUT OF RANGE REFERENCE UNITS LAB L300.4310 24.1-36.2 Seconds Normal PTT 29.4 Performed By: #### L300.4310 #### [facility] [address] [place], [address] BEDSIDE GLUCOSE Collected: 07/06/2018 Status: F Source: [place] 11:19 AM [facility] REPOSITORY TYPE CODE TESTS RESULT OUT OF REFERENCE UNITS RANGE LAB L501.080 70-110 mg/dL High BEDSIDE GLU 256 Result Comment: MANAGEMENT OF PATIENT CARE PER NURSING PROTOCOL Performed By: #### L501.080 #### [facility] Point of Care [address] [place] [address] PARTIAL THROMBOPLAST Collected: 07/06/2018 Status: F Source: [place] TIME 9:37 AM [facility] REPOSITORY Order Comment: Comments: time sensitive heparin drip TYPE CODE TESTS RESULT OUT OF REFERENCE UNITS RANGE LAB L300.4310 24.1-36.2 Seconds High PTT 86.1 Performed By: #### L300.4310 #### [facility] [address] [place], [address] BEDSIDE GLUCOSE Collected: 07/06/2018 Status: F Source: [place] 6:37 AM [facility] REPOSITORY TYPE CODE TESTS RESULT OUT OF REFERENCE UNITS RANGE LAB L501.080 70-110 mg/dL High BEDSIDE GLU 135 Result Comment: MANAGEMENT OF PATIENT CARE PER NURSING PROTOCOL Performed By: #### L501.080 #### [facility] Point of Care [address] [place] [id number] CBC W/DIFF, AUTOMATED Collected: 07/06/2018 Status: F Source: RAAD 3:08 AM [facility] REPOSITORY TYPE CODE TESTS RESULT OUT OF [...] Lymph 1.87 Performed By: #### L100.0100 #### [facility] [address] [place], [place], [address] PROTHROMBIN TIME W/INR Collected: 07/06/2018 Status: F Source: RAAD 3:08 AM [facility] REPOSITORY Order Comment: Comments: time sensitive heparin drip TYPE CODE TESTS RESULT OUT OF RANGE REFERENCE UNITS LAB L300.4150 11.7-14.9 SECONDS High PROTIME 15.5 LAB L300.4200 Normal INR 1.2 Performed By: #### L300.3900, L300.4310 #### [facility] [address] [place], [place], [address] PARTIAL THROMBOPLAST Collected: 07/06/2018 Status: F Source: RAAD TIME 3:08 AM [facility] REPOSITORY Order Comment: Comments: time sensitive heparin drip TYPE CODE TESTS RESULT OUT OF REFERENCE UNITS RANGE LAB L300.4310 24.1-36.2 Seconds High PTT 79.6 Performed By: #### L300.3900, L300.4310 #### [facility] [address] [place], [address] BASIC METABOLIC Collected: 07/06/2018 Status: F Source: RAAD PROFILE (BMP) 3:08 AM [facility] REPOSITORY TYPE CODE TESTS RESULT OUT OF [...] GAP 10 Performed By: #### L500.2500 #### [facility] [address] [place], [address] BEDSIDE GLUCOSE Collected: 07/06/2018 Status: F Source: RAAD 2:39 AM [facility] REPOSITORY TYPE CODE TESTS RESULT OUT OF REFERENCE UNITS RANGE LAB L501.080 70-110 mg/dL High BEDSIDE GLU 152 Result Comment: MANAGEMENT OF PATIENT CARE PER NURSING PROTOCOL Performed By: #### L501.080 #### [facility] Point of Care [address] [place] [address] BEDSIDE GLUCOSE Collected: 07/05/2018 Status: F Source: RAAD 9:45 PM [facility] REPOSITORY TYPE CODE TESTS RESULT OUT OF REFERENCE UNITS RANGE LAB L501.080 70-110 mg/dL High BEDSIDE GLU 119 Result Comment: MANAGEMENT OF PATIENT CARE PER NURSING PROTOCOL Performed By: #### L501.080 #### [facility] Point of Care [address] [place] [address] PARTIAL THROMBOPLAST Collected: 07/05/2018 Status: F Source: RAAD TIME 8:22 PM [facility] REPOSITORY TYPE CODE TESTS RESULT OUT OF REFERENCE UNITS RANGE LAB L300.4310 24.1-36.2 Seconds High alert PTT 97.7 Result Comment: RESULTS CALLED TO JAI U 07/05/180 Sanford Pratt. REPORT READ BACK BY SAME . Performed By: #### L300.4310 #### [facility] [address] [place], [address] BEDSIDE GLUCOSE Collected: 07/05/2018 Status: F Source: RAAD 5:06 PM [facility] REPOSITORY TYPE CODE TESTS RESULT OUT OF REFERENCE UNITS RANGE LAB L501.080 70-110 mg/dL High BEDSIDE GLU 172 Result Comment: MANAGEMENT OF PATIENT CARE PER NURSING PROTOCOL Performed By: #### L501.080 #### [facility] Point of Care [address] [place] [address] 12 LEAD ELECTROCARDIOGRAM Observed: 07/05/2018 Status: F Source: RAAD 2:25 PM [facility] REPOSITORY [facility] Cardiovascular Services [address] [place] [address] 12 Lead EKG 07/02/18 1037 MR#: [id number] Acct: [id number] Name: NORRIS STEIN Rep #: [id number] : 1940 77 From: Fernando Hendrix MD [...] Abnormal ECG Confirmed by CLOTILDE BHANDARI, FERNANDO ([id number]), deputy editor in chief FRANCISCO JAVIER FRAGOSO ([id number]) on 07/05/2018 2:25:02 PM Referred By: GO Confirmed By:FERNANDO HENDRIX MD 07/05/18 1425 Date Fernando Hendrix MD CC: Saumya Newton MD; Jhon Garcia MD; Elroy Zhong DO Signed PARTIAL THROMBOPLAST Collected: 07/05/2018 Status: F Source: RAAD TIME 1:45 PM [facility] REPOSITORY TYPE CODE TESTS RESULT OUT OF REFERENCE UNITS RANGE LAB L300.4310 24.1-36.2 Seconds High alert PTT 241.0 Result Comment: CRITICAL VALUE VERIFIED. CALLED TO JOSHUA PARTIDA 07/05/18 1415 Bernardo Kwan RESULTS READ BACK BY SAME. Performed By: #### L300.4310 #### [facility] [address] [place], [place], [address] BEDSIDE GLUCOSE Collected: 07/05/2018 Status: F Source: RAAD 11:51 AM [facility] REPOSITORY TYPE CODE TESTS RESULT OUT OF REFERENCE UNITS RANGE LAB L501.080 70-110 mg/dL High BEDSIDE GLU 167 Result Comment: MANAGEMENT OF PATIENT CARE PER NURSING PROTOCOL Performed By: #### L501.080 #### [facility] Point of Care [address] [place], [place] [address] BEDSIDE GLUCOSE Collected: 07/05/2018 Status: F Source: RAAD 7:10 AM [facility] REPOSITORY TYPE CODE TESTS RESULT OUT OF REFERENCE UNITS RANGE LAB L501.080 70-110 mg/dL High BEDSIDE GLU 156 Result Comment: MANAGEMENT OF PATIENT CARE PER NURSING PROTOCOL Performed By: #### L501.080 #### [facility] Point of Care [address] [place] [address] CBC-COMPLETE BLOOD CNT Collected: 07/05/2018 Status: F Source: RAAD NO DIFF 4:15 AM [facility] REPOSITORY TYPE CODE TESTS RESULT OUT OF [...] MPV 10.4 Performed By: #### L100.0500 #### [facility] [address] [place], [place], [address] PROTHROMBIN TIME W/INR Collected: 07/05/2018 Status: F Source: RAAD 4:15 AM [facility] REPOSITORY TYPE CODE TESTS RESULT OUT OF RANGE REFERENCE UNITS LAB L300.4150 11.7-14.9 SECONDS Normal PROTIME 14.8 LAB L300.4200 Normal INR 1.2 Performed By: #### L300.3900 #### [facility] [address] [place], [address] BASIC METABOLIC Collected: 07/05/2018 Status: F Source: RAAD PROFILE (BMP) 4:15 AM [facility] REPOSITORY TYPE CODE TESTS RESULT OUT OF [...] 13 Performed By: #### L500.2500, L500.4100 #### [facility] [address] [place], [address] LIPID PROFILE Collected: 07/05/2018 Status: F Source: RAAD 4:15 AM [facility] REPOSITORY TYPE CODE TESTS RESULT OUT OF [...] 19 Performed By: #### L500.2500, L500.4100 #### [facility] [address] [place], [address] PARTIAL THROMBOPLAST Collected: 07/05/2018 Status: F Source: RAAD TIME 4:15 AM [facility] REPOSITORY TYPE CODE TESTS RESULT OUT OF RANGE REFERENCE UNITS LAB L300.4310 24.1-36.2 Seconds Normal PTT 24.1 Performed By: #### L300.4310 #### [facility] [address] [place], [address] BEDSIDE GLUCOSE Collected: 07/05/2018 Status: F Source: RAAD 2:52 AM [facility] REPOSITORY TYPE CODE TESTS RESULT OUT OF REFERENCE UNITS RANGE LAB L501.080 70-110 mg/dL High BEDSIDE GLU 184 Result Comment: MANAGEMENT OF PATIENT CARE PER NURSING PROTOCOL Performed By: #### L501.080 #### [facility] Point of Care [address] [place] [address] BEDSIDE GLUCOSE Collected: 07/04/2018 Status: F Source: RAAD 9:36 PM [facility] REPOSITORY TYPE CODE TESTS RESULT OUT OF REFERENCE UNITS RANGE LAB L501.080 70-110 mg/dL High BEDSIDE GLU 142 Result Comment: MANAGEMENT OF PATIENT CARE PER NURSING PROTOCOL Performed By: #### L501.080 #### [facility] Point of Care [address] [place] [address] BEDSIDE GLUCOSE Collected: 07/04/2018 Status: F Source: RAAD 4:42 PM [facility] REPOSITORY TYPE CODE TESTS RESULT OUT OF REFERENCE UNITS RANGE LAB L501.080 70-110 mg/dL High BEDSIDE GLU 329 Result Comment: MANAGEMENT OF PATIENT CARE PER NURSING PROTOCOL Performed By: #### L501.080 #### [facility] Point of Care [address] [place] [address] BEDSIDE GLUCOSE Collected: 07/04/2018 Status: F Source: RAAD 12:10 PM [facility] REPOSITORY TYPE CODE TESTS RESULT OUT OF REFERENCE UNITS RANGE LAB L501.080 70-110 mg/dL High BEDSIDE GLU 190 Result Comment: MANAGEMENT OF PATIENT CARE PER NURSING PROTOCOL Performed By: #### L501.080 #### [facility] Point of Care [address] [place] [address] ACT ACTIVATED CLOTTING Collected: 07/04/2018 Status: F Source: RAAD TIME 8:42 AM [facility] REPOSITORY TYPE CODE TESTS RESULT OUT OF RANGE REFERENCE UNITS LAB L9100.0100 74-137 sec High ACTk CLOT 235 TIME Performed By: #### L9100.0100 #### [facility] Point of Care [address] [place] [address] BEDSIDE GLUCOSE Collected: 07/04/2018 Status: F Source: RAAD 6:51 AM [facility] REPOSITORY TYPE CODE TESTS RESULT OUT OF REFERENCE UNITS RANGE LAB L501.080 70-110 mg/dL High BEDSIDE GLU 209 Result Comment: MANAGEMENT OF PATIENT CARE PER NURSING PROTOCOL Performed By: #### L501.080 #### [facility] Point of Care [address] [place] [address] BASIC METABOLIC Collected: 07/04/2018 Status: F Source: RAAD PROFILE (BMP) 5:00 AM [facility] REPOSITORY TYPE CODE TESTS RESULT OUT OF [...] GAP 9 Performed By: #### L500.2500 #### [facility] [place], [address] CBC W/DIFF, AUTOMATED Collected: 07/04/2018 Status: F Source: RAAD 5:00 AM [facility] REPOSITORY TYPE CODE TESTS RESULT OUT OF [...] Lymph 0.80 Performed By: #### L100.0100 #### [facility] [address] [place] [address], [id number] PROTHROMBIN TIME W/INR Collected: 07/04/2018 Status: F Source: [place] 5:00 AM [facility] REPOSITORY TYPE CODE TESTS RESULT OUT OF RANGE REFERENCE UNITS LAB L300.4150 11.7-14.9 SECONDS Normal PROTIME 13.6 LAB L300.4200 Normal INR 1.0 Performed By: #### L300.3900, L300.4310 #### [facility] [address] [place], [place], [id number] PARTIAL THROMBOPLAST Collected: 07/04/2018 Status: F Source: [place] TIME 5:00 AM [facility] REPOSITORY TYPE CODE TESTS RESULT OUT OF RANGE REFERENCE UNITS LAB L300.4310 24.1-36.2 Seconds Normal PTT 28.3 Performed By: #### L300.3900, L300.4310 #### [facility] [address] [place], [address] CHEST 1 VIEW Observed: 07/04/2018 Status: F Source: RAAD (PORTABLE) 1:36 AM [facility] REPOSITORY [facility] Imaging Services [address] [place] [address] Chest 1 View (Portable) MR#: [id number] Acct: [id number] Name: NORRIS STEIN Rep #: [id number] : 1940 M 77 From: Bernardo Juarez MD PCP: Saumya Newton MD Status: ADM IN Study: Chest 1 View (Portable) Date of Exam: 07/04/18 Exam# [id number] Ordering Dr: Jonnathan Watson MD HISTORY: SOBShort [...] CC: Jonnathan Watson MD; Saumya Newton MD Animal Breeder: Signed URINALYSIS, ROUTINE Collected: 07/03/2018 Status: F Source: RAAD (DIPSTICK) 11:45 PM [facility] REPOSITORY Order Comment: Order Date: 07/03/18 How [...] ESTERASE Negative Performed By: #### L400.2010 #### [facility] [address] [place], [address] BEDSIDE GLUCOSE Collected: 07/03/2018 Status: F Source: [place] 9:29 PM [facility] REPOSITORY TYPE CODE TESTS RESULT OUT OF REFERENCE UNITS RANGE LAB L501.080 70-110 mg/dL High BEDSIDE GLU 153 Result Comment: MANAGEMENT OF PATIENT CARE PER NURSING PROTOCOL Performed By: #### L501.080 #### [facility] Point of Care [address] [place], [place] [address] CONSULTATION Observed: 07/03/2018 Status: F Source: [place] 7:33 PM [facility] REPOSITORY [facility] Medical Records Department [address] [place] [address] Consultation 07/03/181916 MR#: [id number] Acct: [id number] Name: NORRIS STEIN Kristal Rep #: [id number] : 1940 77 From: Kulwant Godoy MD PCP: Saumya Newton MD Status: ADM IN Location: [place] [address]-1 Problem List (1) Atrial fibrillation and flutter [...] atrial fibrillation and subsequently referred to the [facility] for further evaluation care. Based upon review [...] % (Auto) 61.5, Lymph % (Auto) 27.9, [place] % (Auto) 6.8, Eos % (Auto) 3.4, [...] BEDSIDE GLUCOSE Collected: 07/03/2018 Status: F Source: [place] 4:12 PM [facility] REPOSITORY TYPE CODE TESTS RESULT OUT OF REFERENCE UNITS RANGE LAB L501.080 70-110 mg/dL High BEDSIDE GLU 116 Result Comment: MANAGEMENT OF PATIENT CARE PER NURSING PROTOCOL Performed By: #### L501.080 #### [facility] Point of Care [address] [place] [address] ECHOCARDIOGRAM COMPLETE Observed: 07/03/2018 Status: F Source: [place] 1:04 PM [facility] REPOSITORY [facility] Cardiovascular Services [address] [facility] [place] [address] Echo Complete W/ Contrast 07/03/18 1031 MR#: [id number] Acct: [id number] Name: NORRIS STEIN Rep #: [id number] : 1940 77 From: Werner Wall MD Attending Dr: Jhon Garcia MD Status: ADM IN Ordering Dr: Jhon Garcia MD Date: 07/02/18 Location: [facility] Sex: M C Admitted: 07/02/18 [...] Referring Physician: Saumya Newton Performed By: Trena Bueno RDCS, RVT 07/03/18 1304 Date Werner Wall MD CC: Saumya Newton MD; Jhon Garcia MD Date Dictated: 07/03/18 1031 Date Transcribed: 07/03/18 1304 Animal Breeder: Signed BEDSIDE GLUCOSE Collected: 07/03/2018 Status: F Source: RAAD 12:28 PM [facility] REPOSITORY TYPE CODE TESTS RESULT OUT OF REFERENCE UNITS RANGE LAB L501.080 70-110 mg/dL High BEDSIDE GLU 154 Result Comment: MANAGEMENT OF PATIENT CARE PER NURSING PROTOCOL Performed By: #### L501.080 #### [facility] Point of Care [address] [place] [address] BEDSIDE GLUCOSE Collected: 07/03/2018 Status: F Source: RAAD 6:39 AM [facility] REPOSITORY TYPE CODE TESTS RESULT OUT OF REFERENCE UNITS RANGE LAB L501.080 70-110 mg/dL High BEDSIDE GLU 112 Result Comment: MANAGEMENT OF PATIENT CARE PER NURSING PROTOCOL Performed By: #### L501.080 #### [facility] Point of Care [address] [place] [address] BASIC METABOLIC Collected: 07/03/2018 Status: F Source: RAAD PROFILE (BMP) 5:08 AM [facility] REPOSITORY TYPE CODE TESTS RESULT OUT OF [...] GAP 5 Performed By: #### L500.2500 #### [facility] [address] [place], [address] CBC W/DIFF, AUTOMATED Collected: 07/03/2018 Status: F Source: [place] 5:08 AM [facility] REPOSITORY TYPE CODE TESTS RESULT OUT OF [...] Lymph 1.89 Performed By: #### L100.0100 #### [facility] [address] [place], [address] BEDSIDE GLUCOSE Collected: 07/02/2018 Status: F Source: [place] 9:46 PM [facility] REPOSITORY TYPE CODE TESTS RESULT OUT OF REFERENCE UNITS RANGE LAB L501.080 70-110 mg/dL High BEDSIDE GLU 121 Result Comment: MANAGEMENT OF PATIENT CARE PER NURSING PROTOCOL Performed By: #### L501.080 #### [facility] Point of Care [address] [place] [address] HISTORY AND PHYSICAL Observed: 07/02/2018 Status: F Source: [place] EXAM 5:19 PM [facility] REPOSITORY [facility] Medical Records Department [address] [place] [address] History and Physical 07/02/18 1654 MR#: [id number] Acct: [id number] Name: NORRIS STEIN Rep #: [id number] : 1940 77 From: Jhon Garcia MD PCP: Saumya Newton MD Status: ADM IN Location: [place] [address] ADDENDUM by Jhon Garcia MD on 07/02/18 at 1719 Code Visit Hold his HCTZ and AMBER because of his creatinine 07/02/18 1719 <Electronically signed by Jhon Garcia MD> Date [...] Cardiac Code Visit Inpatient E AND M: 83064 Init Hosp L3 07/02/18 2967 <Electronically signed by Jhon Garcia MD> Date Jhon Garcia MD Cosigner Signature: Date (if applicable) CC: Saumya Newton MD; Jhon Garcia MD Signed CBC W/DIFF, AUTOMATED Collected: 07/02/2018 Status: F Source: RAAD 2:05 PM [facility] REPOSITORY TYPE CODE TESTS RESULT OUT OF [...] Lymph 1.65 Performed By: #### L100.0100 #### [facility] [address] [place], [address] EMERGENCY DEPARTMENT Observed: 07/02/2018 Status: F Source: [place] SUMMARY 12:31 PM [facility] REPOSITORY [facility] Medical Records Department [address] [place] [address] Emergency Department Summary 07/02/18 1228 MR#: [id number] Acct: [id number] Name: NORRIS STEIN Rep #: [id number] : 1940 77 From: Elroy Zhong DO PCP: Saumya Newton MD Status: REG ER - ER Visit [...] new onset] This note was generated with App[employer] dictation software. It may contain incorrect words, [...] your Primary Care Provider. Call [facility] ([phone]) or report to the closest Emergency Room. Call 911 if necessary. 07/02/18 1231 <Electronically signed by Elroy Zhong DO> Date Elroy Zhong DO Cosigner Signature (If Indicated): Date CC: Saumya Newton MD CHEST 1 VIEW Observed: 07/02/2018 Status: F Source: [place] (PORTABLE) 10:48 AM [facility] REPOSITORY [facility] Imaging Services [address] [place] [address] Chest 1 View (Portable) MR#: [id number] Acct: [id number] Name: NORRIS STEIN Kristal Rep #: [id number] : 1940 M 77 From: Antonio Corrigan MD PCP: Saumya Newton MD Status: REG ER Study: Chest 1 View (Portable) Date of Exam: 07/02/18 Exam# [id number] Ordering Dr: Elroy Zhong DO STUDY: X-RAY [...] CC: Saumya Newton MD; Elroy Zhong DO Animal Breeder: Signed CBC W/DIFF, AUTOMATED Collected: 07/02/2018 Status: F Source: [place] 10:40 AM [facility] REPOSITORY TYPE CODE TESTS RESULT OUT OF [...] Lymph 1.23 Performed By: #### L100.0100 #### [facility] [address] [place], [address] BASIC METABOLIC Collected: 07/02/2018 Status: F Source: [place] PROFILE (BMP) 10:40 AM [facility] REPOSITORY TYPE CODE TESTS RESULT OUT OF [...] GAP Performed By: #### L500.2500, L501.4010 #### [facility] [address] [place], [address] TROPONIN-I Collected: 07/02/2018 Status: F Source: [place] 10:40 AM [facility] REPOSITORY TYPE CODE TESTS RESULT OUT OF RANGE REFERENCE UNITS LAB L501.4010 <0.045 ng/mL Normal < 0.015 TROPONIN-I Result Comment: TROPONIN-I EXPECTED VALUES <0.045 Negative 0.045 - 0.590 Consistent with Cardiac Damage > OR = 0.600 Critical Value Not every elevated troponin is indicative of FL. These values should be used with clinical judgement in examining the patient's clinical picture for diagnosis. To establish a diagnosis of FL versus myocardial injury, there must be a demonstrated rise and/or fall in the troponin values, in addition to ischemic symptoms, EKG changes, new regional wall motion abnormality, and/or angiographical evidence. PLEASE NOTE: REFERENCE RANGES EDITED 17 Performed By: #### L500.2500, L501.4010 #### [facility] [address] [place], [place], [address] PROTHROMBIN TIME W/INR Collected: 07/02/2018 Status: F Source: [place] 10:40 AM [facility] REPOSITORY TYPE CODE TESTS RESULT OUT OF RANGE REFERENCE UNITS LAB L300.4150 11.7-14.9 SECONDS Normal PROTIME 13.9 LAB L300.4200 Normal INR 1.1 Performed By: #### L300.3900, L300.4310 #### [facility] [address] [place], [address] PARTIAL THROMBOPLAST Collected: 07/02/2018 Status: F Source: [place] TIME 10:40 AM [facility] REPOSITORY TYPE CODE TESTS RESULT OUT OF RANGE REFERENCE UNITS LAB L300.4310 24.1-36.2 Seconds Normal PTT 28.6 Performed By: #### L300.3900, L300.4310 #### [facility] [address] [place], [address] BNP,B-TYPE NATRIURETIC Collected: 07/02/2018 Status: F Source: [place] PEPTIDE 10:40 AM [facility] REPOSITORY TYPE CODE TESTS RESULT OUT OF RANGE REFERENCE UNITS LAB L503.6620 0-100 pg/mL High B-TYPE 125.0 ELÍAS PEP Performed By: #### L503.6620 #### [facility] [address] [place], [address] THYROID STIM HORMONE Collected: 07/02/2018 Status: F Source: [place] (TSH) 10:40 AM [facility] REPOSITORY TYPE CODE TESTS RESULT OUT OF RANGE REFERENCE UNITS LAB L501.9520 0.358-3.74 uIU/mL High TSH 5.16 Performed By: #### L501.9520 #### [facility] [address] [place], [address] ECG COMPLETE W Observed: 07/02/2018 Status: F Source: [place] INTERPRETATION 10:00 AM [facility] REPOSITORY NAME : NORRIS STEIN PID : [id number] : 1940 Gender : Male Race : ORD : [id number] Procedure Date : Jul 02 2018 10:00:23 Edit Date : Jul 03 2018 16:36:48 Diagnosis:ATRIAL FLUTTER WITH VARIABLE A-V BLOCK ST ELEVATION CONSIDER INFERIOR INJURY OR ACUTE INFARCT ACUTE FL / STEMI ABNORMAL ECG Confirmed by SANFORD MADRIGAL D.O. ([id number]) on 07/03/2018 4:36:20 PM Ventricular Rate : 133 BPM Atrial Rate : 293 BPM QRS Duration : 90 ms Q-T Interval : 356 ms QTC Calculation(Bezet) : 529 ms R Kegley : 66 degrees T Kegley : 76 degrees Test Reason : Location : [address] [place] [address] Overread By : SANFORD MADRIGAL D.O. Edited By : SANFORD MADRIGAL D.O. Referred By : ANAM STRICKLAND Acquired by : BOBBY CEDILLO Observed: 07/02/2018 Status: COMPLETED Source: [place] 9:29 AM [facility] REPOSITORY O ID: [id number] Author: Anam (Austen) [place] Service: (none) Author Type: Nurse Practitioner Type: [...] Laterality Date - COLONOSCOP W/ OR W/O [facility] SPEC 04/08/15 Colonoscopy Family History [...] patient. Squad was called, report called to [facility]. Patient transported in stable condition. Anam Strickland APRN.AUSTEN DIXONOV Observed: 07/02/2018 Status: COMPLETED Source: [place] 9:20 AM [facility] REPOSITORY Office Visit (FAMPWS) NORRIS STEIN ([id number]) 1940 M Date Time Provider Department 07/02/18 9:20 AM ANAM STRICKLAND ([facility]) [place] During your visit today, we recorded [...] Laterality Date - COLONOSCOP W/ OR W/O [facility] SPEC 04/08/15 Colonoscopy Family History [...] ICD9: 786.02, ICD10: R06.01 (primary diagnosis) 2. LOKCWOOD (dyspnea on exertion) - ICD9: 786.09, ICD10: R06.09 - ECG COMPLETE W INTERPRETATION 3. Leg swelling - ICD9: 729.81, ICD10: M79.89 - EKG today in office showed atrial flutter with ST elevation in leads 2, 3, V6. 4 baby aspirin were given to patient. Squad was called, report called to [facility]. Patient transported in stable condition. Anam Strickland APRN.CREDIT REFERENCE CLERK Referring Provider: SELF [[id number]] Allergies As of Date: 07/02/2018 (No Known Allergies) Date Reviewed: 07/02/2018 Reviewed by: Analisa Cedillo Ammonia Still Operator - Fully Assessed Reason for Visit: Breathing Problem [17] Primary Visit Diagnosis:Orthopnea [R06.01] Other Visit Diagnoses:LOCKWOOD (dyspnea on exertion) [R06.09] Leg swelling [M79.89] Order(s):ECG COMPLETE W INTERPRETATION [ECG01] Order #: [id number] FUTURE Prescriptions as of 07/02/2018 Sig: CODEINE [...] on 07/02/18 Observed: 05/01/2018 Status: F Source: [place] URINE CULTURE 8:41 AM [facility] REPOSITORY Sp. 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 No further workup. --> ABNORMAL ALERT 50,000 - <100,000 CFU/ml --> ABNORMAL ALERT Lactose negative gram negative bacilli --> ABNORMAL ALERT Insignificant colony count. No further workup. --> ABNORMAL ALERT Performed By: #### URCUL #### [facility] [address], [place] [address] PROGRESS Observed: 05/01/2018 Status: COMPLETED Source: [place] 8:25 AM [facility] REPOSITORY HNO ID: [id number] Author: Anam Strickland Service: (none) Author Type: [...] No fevers or chills. Is taking an ipwg-koo-prpetob Cystek from a local pharmacy. Does have a prior history of UTIs. Past medical history, appointments, medications, allergies reviewed. Previous Medical History PAST MEDICAL HISTORY Diagnosis Date - DM (diabetes mellitus) (HCC) - Essential hypertension, benign - Other and unspecified hyperlipidemia - Other specified family circumstances Previous Surgical History PAST SURGICAL HISTORY Procedure Laterality Date - COLONOSCOP W/ OR W/O [facility] SPEC 04/08/15 Colonoscopy Family History [...] Neg neg Ketones, Urine Neg neg Specific [place], Ur 1.005 - 1.030 1.010 Hemoglobin/Blood,Ur Neg [...] MG TABLET follow-up as needed. Anam Strickland APRN.[place] CNOV Observed: 05/01/2018 Status: COMPLETED Source: [place] 8:20 AM [facility] REPOSITORY Office Visit (FAMPWS) NORRIS STEIN ([id number]) 1940 M Date Time Provider Department 05/01/18 8:20 AM ANAM STRICKLAND ([place]) FAMPWS During your visit today, we recorded the following information about you: Temperature Pulse Blood pressure Weight 98.3 degrees 60/minute 112/80 108.9 kg nAam Strickland APRN.[place] 05/01/2018 8:49 AM Addendum Chief Complaint Patient [...] No fevers or chills. Is taking an duxp-txf-oahcktt Cystek from a local pharmacy. Does have a prior history of UTIs. Past medical history, appointments, medications, allergies reviewed. Previous Medical History PAST MEDICAL HISTORY Diagnosis Date - DM (diabetes mellitus) (HCC) - Essential hypertension, benign - Other and unspecified hyperlipidemia - Other specified family circumstances Previous Surgical History PAST SURGICAL HISTORY Procedure Laterality Date - COLONOSCOP W/ OR W/O [facility] SPEC 04/08/15 Colonoscopy Family History [...] Neg neg Ketones, Urine Neg neg Specific [place], Ur 1.005 - 1.030 1.010 Hemoglobin/Blood,Ur Neg [...] MG TABLET follow-up as needed. Anam Strickland APRN.CREDIT REFERENCE CLERK Referring Provider: SELF [200] Allergies As of Date: 05/01/2018 (No Known Allergies) Date Reviewed: 02/05/2018 Reviewed by: Lamar Rivero Ma - Fully Assessed Reason for Visit: UTI [116] Cmt: x 4 days - burning with urination - taking cystek - no back pain Primary Visit Diagnosis:Dysuria [R30.0] Order(s):UA DIP B/O [6819133] Order #: [id number] URINE CULTURE [SQURCUL] Order #: [id number] sulfamethoxazole-trimethoprim (BACTRIM DS) 800-160 mg per tabletTake [...] Status:Closed by ANAM STRICKLAND CNP on 05/01/18 CHRISTIAN Observed: 02/11/2018 Status: COMPLETED Source: [place] 12:00 AM [facility] REPOSITORY Letter Sadia Melvin Department of Internal Medicine [address], [place] [address] Norris Stein [address] [facility] [address] Clinic #: [id number] 02/11/2018 Below is a message concerning your lab results. If you should have any questions please feel free to contact the office at [phone] : Please inform patient that his Hgb A1c improved to 6.7%. Cholesterol panel looks good. Kidney function is stable. Continue on current dose of medications, follow up in 6 months with labs prior. ? Anam Strickland APRN.CNP Thank you Sincerely Your [facility] health Team TONY Observed: 02/05/2018 Status: COMPLETED Source: [place] 9:40 AM [facility] REPOSITORY Office Visit (FAMPWS) NORRIS STEIN ([id number]) 1940 M Date Time Provider Department 02/05/18 9:40 AM SAUMYA NEWTON During your visit today, [...] Laterality Date - COLONOSCOP W/ OR W/O [facility] SPEC 04/08/15 Colonoscopy Family History [...] 160 - MPV 08/07/2017 10.6 - Absolute nR 08/07/2017 <0.01 ASSESSMENT/PLAN: 1. Type 2 diabetes [...] 2018 9:34 AM. Referring Provider: SAUMYA NEWTON [[id number]] Allergies As of Date: 02/05/2018 (No Known [...] 11 COMP METABOLIC PANEL [SQCMP] Order #: [id number] FUTURE LIPID PANEL BASIC [SQLIPB] Order #: [id number] FUTURE HGB A1C [NITTB7I] Order #: [id number] FUTURE Prescriptions as of 02/05/2018 Sig: CODEINE [...] 02/05/18 PROGRESS Observed: 02/05/2018 Status: COMPLETED Source: [place] 9:34 AM [facility] REPOSITORY HNO ID: [id number] Author: Saumya Newton Service: (none) Author Type: [...] Laterality Date - COLONOSCOP W/ OR W/O [facility] SPEC 04/08/15 Colonoscopy Family History [...] METABOLIC PANEL Collected: 02/05/2018 Status: F Source: [place] 8:47 AM [facility] REPOSITORY TYPE [...] mg/dL Glucose High 126 Result Comment: The [place] Diabetes Association (ADA) provides guidance for cutoff [...] Standards of Medical Care in Diabetes 2016, [place] Diabetes Association. Diabetes Care. 2016.39(Suppl 1). LAB [...] Performed By: #### CMP, LIPB, HBA1C #### [facility] [address] [place], [place] [address] LIPID PANEL, BASIC Collected: 02/05/2018 Status: F Source: [place] 8:47 AM [facility] REPOSITORY TYPE CODE TESTS RESULT [...] Desk Reference: National Heart, Lung, and Blood [place]. National Institutes of Health. 2001: NIH Publication No. 01-3305. 2. An International Atherosclerosis Society position paper: global recommendations for the management of dyslipidemia: executive summary, Atherosclerosis. 2014: 232(2):410-413. Performed By: #### CMP, LIPB, HBA1C #### [facility] [address] [place], [place] [address] HEMOGLOBIN A1C Collected: 02/05/2018 Status: F Source: [place] 8:47 AM [facility] REPOSITORY TYPE CODE TESTS RESULT OUT OF REFERENCE UNITS RANGE LAB HGBA1C 4.3-5.6 % High Hemoglobin A1c 6.7 LAB HBA0 mg/dL Est. Average Glucose 146 Result Comment: eAG: (Estimated average glucose) is a calculated value from HgbA1c and is major account representative of the average blood glucose level in the last 2-3 month period. Performed By: #### CMP, LIPB, HBA1C #### [facility] [address] [place], [place] [address] CNOV Observed: 11/09/2017 Status: COMPLETED Source: [place] 3:00 PM [facility] REPOSITORY Office Visit (FAMPWS) NORRIS STEIN Kristal ([id number]) 1940 M Date Time Provider Department 11/09/17 3:00 PM ANAM STRICKLAND ([facility]) [facility] During your visit today, we recorded the following information about you: Temperature Pulse Respiration Blood pressure 98.8 degrees 80/minute 20/minute 130/72 Weight 104.8 kg Anam Strickland APRN.CREDIT REFERENCE CLERK 11/09/2017 3:23 PM Signed Chief Complaint Patient [...] occurs. Follow up as needed. Anam Strickland APRN.CREDIT REFERENCE CLERK Referring Provider: SELF [200] Allergies As of Date: 11/09/2017 (No Known Allergies) Date Reviewed: 11/09/2017 Reviewed by: Analisa Cedillo Ammonia Still Operator - Fully Assessed Reason for Visit: [...] 11/09/17 PROGRESS Observed: 11/09/2017 Status: COMPLETED Source: [place] 2:55 PM [facility] REPOSITORY HNO ID: [id number] Author: Anam Mathis) [place] Service: (none) Author Type: Nurse Practitioner Type: [...] Laterality Date - COLONOSCOP W/ OR W/O [facility] SPEC 04/08/15 Colonoscopy Family History [...] occurs. Follow up as needed. Anam Strickland APRN.CREDIT REFERENCE CLERK ALLERGIES ALLERGIES DATE TYPE / CODE NAME / CODE REACTION SEVERITY SOURCE 07/29/2018 Drug No Known Unknown [facility] Allergy/416 Allergies/K44187 Hospital 075000(SNOM 0388(RXNORM) Repository ED CT) Drug NO KNOWN [facility] Class/82472 ALLERGIES [address] [place] 1003(SNOMED Repository CT) ENCOUNTERS ENCOUNTERS ADMIT/DISCHARGE ACCOUNT ADMITTING ENCOUNTER LOCATION SOURCE NUMBER CLASS 08/30/2018 [id number] Ambulatory BMSBuilding:Antoinette Shankar MS.[facility] Repository 08/30/2018/08/30/19 [id number] Ambulatory [address] Repository 08/23/2018/08/26/19 [id number] Ambulatory [address] Repository 08/23/2018 [id number] [facility] ing:LAB Repository 08/16/2018 [id number] [facility]ulatory [facility] ing:LAB Repository 08/15/2018/08/16/19 [id number] Ambulatory [address] Repository 08/15/2018 [id number] [facility]ulatory [facility] ing:LAB Repository 08/15/2018/08/15/19 [id number] Ambulatory BMSBuilding:B Raad 19 MS.[facility] Repository 08/14/2018 [id number] [facility]ulatory [facility] ing:CR Repository 08/14/2018 [id number] Ambulatory BMSBuilding:W [facility] Repository 08/13/2018 [id number] [facility] ing:PSN Repository 08/12/2018 [id number] [facility] ing:CT Repository 08/12/2018/08/14/19 [id number] Ambulatory [address] [place] Repository 08/09/2018/08/12/19 [id number] Ambulatory [address] [place] Repository 08/09/2018 [id number] Ambulatory [facility] ing:LAB Repository 08/09/2018/08/12/19 [id number] Ambulatory [place] [facility] [place] Repository 07/31/2018/08/02/20 [id number] Ambulatory [address] [place] Repository 07/29/2018/07/29/20 [id number] Ambulatory BMSBuilding:Antoinette Shankar 18 MS.[facility] Repository 07/29/2018 [id number] Ambulatory BMSBuilding:Antoinette Shankar MS.[facility] Repository 07/25/2018/07/25/20 [id number] Ambulatory [address] [place] Repository 07/25/2018/07/25/20 [id number] Ambulatory [address] [place] Repository 07/25/2018/07/26/20 [id number] Ambulatory [address] [place] Repository 07/22/2018 [id number] [facility] ing:LABSPEC Repository 07/22/2018/07/22/20 [id number] Ambulatory [address] Repository 07/18/2018 [id number] Ambulatory [facility] ing:CR Repository 07/18/2018/07/18/20 [id number] Ambulatory [address] Hospital ing:LAB Repository 07/16/2018/07/17/20 [id number] Ambulatory [address] [place] Repository 07/03/2018/07/03/20 [id number] Ambulatory [address] [place] Repository 07/02/2018/07/06/20 [id number] Radha, Inpatient Melvin Melvin Elvia Farfan [facility] ing:PCURoom: Repository [id number]: 1 07/02/2018 [id number] Radha, Ambulatory BMSBuilding:Antoinette Farfan MS.[facility] Repository 07/02/2018 [id number] [place], Ambulatory BMSBuilding:Antoinette Farfan MS.[facility] Repository 07/02/2018 [id number] [place], Ambulatory BMSBuilding:Antoinette Farfan MS.CF.[facility] Repository 07/02/2018 [id number] [place], Ambulatory BMSBuilding:Antoinette Farfan MS.[facility] Repository 07/02/2018 [id number] [place], Ambulatory BMSBuilding:Antoinette Farfan MS.CF.[facility] Repository 07/02/2018 [id number] [place], Ambulatory BMSBuilding:Antoinette Farfan MS.[facility] Repository 07/02/2018 [id number] [place], Ambulatory BMSBuilding:Antoinette Farfan MS.CF.[facility] Repository 07/02/2018 [id number] [place], Ambulatory BMSBuilding:Antoinette Farfan MS.[facility] Repository 07/02/2018 [id number] [place], Ambulatory BMSBuilding:Antoinette Farfan MS.CF.[facility] Repository 07/02/2018/07/03/20 [id number] Ambulatory [address] Repository 05/01/2018/05/02/20 [id number] Ambulatory [address] Repository 02/05/2018/02/08/20 [id number] Ambulatory [address] Repository 02/05/2018/02/06/20 [id number] Ambulatory [address] Repository 11/09/2017/11/13/19 [id number] Ambulatory [address] Repository PAYERS PAYERS ENCOUNTER GUARANTOR PAYER SUBSCRIBER SOURCE 08/30/2018 NORRIS Giraldo Primary NORRIS [id number] Insurance:ABE PRUITT: [facility] [id number] Number: Repository [id number]: [phone] [id number] [phone] () Date: [address] [address]DD: 08/30/2018 Secondary NOT GIVENUNK Melvin Insurance:SELF PAY [facility] Number: Effective Repository Date:2018-08-30 08/23/2018 NORRIS Giraldo Primary NORRIS Kristal Raad [id number] Insurance:MUSLIM MILLERDOB: [facility] [id number], [place] GROUPPolicy Number: Repository [id number]: 330 [id number] [phone] () Date: [address] [address]DJ: 08/23/2018 Secondary NOT GIVENUNK Melvin Insurance:SELF PAY [facility] Number: Effective Repository Date:2018-08-23 08/16/2018 NORRIS Giraldo Primary NORRIS Rodríguezoster [id number] Insurance:MUSLIM MILLERDOB: [facility] [id number], [place] [facility] Number: Repository [id number]: 330 [id number] [phone] () Date: [address] [address]YX: 08/16/2018 Secondary NOT GIVENUNK Melvin Insurance:SELF PAY [facility] Number: Effective Repository Date:2018-08-16 08/15/2018 NORRIS Giraldo Primary NORRIS Kristal Raad [id number] Insurance:MUSLIM MILLERDOB: [facility] [id number] Hospitals Samaritan [facility] CenterP[facility] Number: Repository [id number]: [phone] [id number] [phone] () Date: [address] [address]SK: 08/15/2018 Secondary NOT GIVENUNK Melvin Insurance:SELF PAY [facility] Number: Effective Repository Date:2018-08-15 08/15/2018 NORRIS Giraldo Primary NORRIS Kristal Melvin [id number] Insurance:MUSLIM MILLERDOB: [facility] [id number], [place] GROUPPolicy Number: Repository [id number]: 330 [id number] [phone] (HP) Date: [address] [address]GJ: 08/15/2018 Secondary NOT GIVENUNK Melvin Insurance:SELF PAY [facility] Number: Effective Repository Date:2018-08-14 08/14/2018 NORRIS J Primary NORRIS J Raad [id number] Insurance:MUSLIM MILLERDOB: [facility] [id number], [place] GROUPPolicy Number: Repository [id number]: 330 [id number] [phone] (HP) Date: [address] [address]GB: 08/14/2018 Secondary NOT GIVENUNK Raad Insurance:SELF PAY [facility] Number: Effective Repository Date:2018-07-18 08/14/2018 NORRIS J Primary NORRIS J Melvin [id number] Insurance:MUSLIM MILLERDOB: [facility] [id number], [place] GROUPPolicy Number: Repository [id number]: 330 [id number] [phone] (HP) Date: [address] [address]MR: 08/14/2018 Secondary NOT GIVENUNK Raad Insurance:SELF PAY [facility] Number: Effective Repository Date:2018-08-14 08/13/2018 NORRIS J Primary NORRIS J Raad [id number] Insurance:MUSLIM MILLERDOB: [facility] [id number], [place] GROUPPolicy Number: Repository [id number]: 330 [id number] [phone] (HP) Date: [address] [address]MY: 08/13/2018 Secondary NOT GIVENUNK Melvin Insurance:SELF PAY [facility] Number: Effective Repository Date:2018-08-12 08/12/2018 NORRIS J Primary NORRIS Kristal Melvin [id number] Insurance:MUSLIM MILLERDOB: [facility] [id number], [place] GROUPPolicy Number: Repository [id number]: 330 [id number] [phone] () Date: [address] [address]AB: 08/12/2018 Secondary NOT GIVENUNK Melvin Insurance:SELF PAY [facility] Number: Effective Repository Date:2018-08-12 08/09/2018 NORRIS Giraldo Primary NORRIS Kristal Melvin [id number] Insurance:MUSLIM MILLERDOB: [facility] [id number], [place] GROUPPolicy Number: Repository [id number]: 330 [id number] [phone] () Date: [address] [address]LB: 08/09/2018 Secondary NOT GIVENUNK Raad Insurance:SELF PAY [facility] Number: Effective Repository Date:2018-08-05 07/29/2018 NORRIS Giraldo Primary NORRIS Kristal Melvin [id number] Insurance:MUSLIM MILLERDOB: [facility] [id number], [place] GROUPPolicy Number: Repository [id number]: 330 [id number] [phone] () Date: [address] [address]GL: 07/29/2018 Secondary NOT GIVENUNK Raad Insurance:SELF PAY [facility] Number: Effective Repository Date:2018-07-29 07/29/2018 NORRIS J Primary NORRIS Kristal Melvin [id number] Insurance:MUSLIM MILLERDOB: [facility] [id number], [place] GROUPPolicy Number: Repository [id number]: 330 [id number] [phone] (HP) Date: TW [address] [place] [address]TC: 07/29/2018 Secondary NOT GIVENUNK Raad Insurance:SELF PAY [facility] Effective Repository Date:2018-07-29 07/22/2018 NORRIS J Primary NORRIS J Melvin [id number] Insurance:MUSLIM MILLERDOB: [facility] [id number], [place] GROUPPolicy Number: Repository [id number]: 330 [id number] [phone] (HP) Date: TW [address] [place] [address]WA: 07/22/2018 Secondary NOT GIVENUNK Raad Insurance:SELF PAY [facility] Number: Effective Repository Date:2018-07-22 07/18/2018 NORRIS J Primary NORRIS J Melvin [id number] Insurance:MUSLIM MILLERDOB: [facility] [id number], [place] GROUPPolicy Number: Repository [id number]: 330 [id number] [phone] (HP) Date: TW [address] [place] [address] 05[address]LW: 07/18/2018 Secondary NOT GIVENUNK Melvin Insurance:SELF PAY [facility] Number: Effective Repository Date:2018-07-12 07/18/2018 NORRIS J Primary NORRIS J Melvin [id number] Insurance:MUSLIM MILLERDOB: [facility] 1290KURLave[place], [place] GROUPPolicy Number: Repository [id number]: 330 [id number] [phone] (HP) Date: TW [address] [place] [address] 19531IM: 07/18/2018 Secondary NOT GIVENUNK Raad Insurance:SELF PAY [facility] Number: Effective Repository Date:2018-07-08 07/02/2018 NORRIS J Primary NORRIS Giraldo Raad [id number] Insurance:MUSLIM MILLERDOB: [facility] [id number] Hospitals Samaritan Medical CenterPolic Number: Repository [id number]: [phone] [id number] [phone] () Date: [facility] [address] [place] [address] 237[address]KB: 07/02/2018 Secondary NOT GIVENUNK Melvin Insurance:SELF PAY [facility] Number: Effective Repository Date:2018-07-02 07/02/2018 NORRIS Giraldo Primary NORRIS Kristal Melvin [id number] Insurance:MUSLIM MILLERDOB: [facility] [id number] Hospitals Samaritan Medical CenterPolic Number: Repository [id number]: [phone] [id number] [phone] (HP) Date: [address] [address]IP: 07/02/2018 Secondary NOT GIVENUNK Melvin Insurance:SELF PAY [facility] Number: Effective Repository Date:2018-07-02 07/02/2018 NORRIS Giraldo Primary NORRIS Kristal Raad [id number] Insurance:MUSLIM MILLERDOB: [facility] [id number], [place] GROUPPolicy Number: Repository [id number]: [phone] [id number] [phone] (HP) Date: [address] [address]PH: 07/02/2018 Secondary NOT GIVENUNK Raad Insurance:SELF PAY [facility] Number: Effective Repository Date:2018-07-02 07/02/2018 NORRIS Kristal Primary NORRIS Giraldo Raad [id number] Insurance:MUSLIM MILLERDOB: [id number] GROUPPolicy Number: Repository [id number]: [phone] [id number] [phone] (HP) Date: TW [address] [place] [address] 05[address]DE: 07/02/2018 Secondary NOT GIVENUNK Raad Insurance:SELF PAY [facility] Number: Effective Repository Date:2018-07-02 07/02/2018 NORRIS Giraldo Primary NORRIS [id number] Insurance:MUSLIM MILLERDOB: [facility] [id number], [place] GROUPPolicy Number: Repository [id number]: 330 [id number] [phone] (HP) Date: [address] [address]RM: 07/02/2018 Secondary NOT GIVENUNK Raad Insurance:SELF PAY [facility] Number: Effective Repository Date:2018-07-02 07/02/2018 NORRIS Giraldo Primary NORRIS [id number] Insurance:MUSLIM MILLERDOB: [facility] [id number], [place] GROUPPolicy Number: Repository [id number]: 330 [id number] [phone] (HP) Date: [address] [address]AU: 07/02/2018 Secondary NOT GIVENUNK Melvin Insurance:SELF PAY [facility] Number: Effective Repository Date:2018-07-02 07/02/2018 NORRIS Giraldo Primary NORRIS Shankar [id number] Insurance:MUSLIM MILLERDOB: [facility] [id number], [place] GROUPPolicy Number: Repository [id number]: [phone] [id number] [phone] (HP) Date: [address] [address]XR: 07/02/2018 Secondary NOT GIVENUNK Raad Insurance:SELF PAY [facility] Number: Effective Repository Date:2018-07-02 07/02/2018 NORRIS J Primary NORRIS [id number] Insurance:MUSLIM MILLERDOB: [facility] [id number], [place] GROUPPolicy Number: Repository [id number]: 330 [id number] [phone] (HP) Date: T[address] [place] [address] 280[address]IH: 07/02/2018 Secondary NOT GIVENUNK Raad Insurance:SELF PAY [facility] Number: Effective Repository Date:2018-07-02 07/02/2018 NORRIS Giraldo Primary NORRIS Kristal Shankar [id number] Insurance:MUSLIM MILLERDOB: [facility] [id number], [place] GROUPPolicy Number: Repository [id number]: 330 [id number] [phone] (HP) Date: T[address] [place] [address] 42[address]TA: 07/02/2018 Secondary NOT GIVENUNK Raad Insurance:SELF PAY [facility] Number: Effective Repository Date:2018-07-02 07/02/2018 NORRIS Giraldo Primary NORRIS Kristal Melvinbeverley [id number] Insurance:MUSLIM MILLERDOB: [facility] [id number], [place] GROUPPolicy Number: Repository [id number]: 330 [id number] [phone] (HP) Date: TWP [address] [place] [address] 749[address]ZE: 07/02/2018 Secondary NOT GIVENUNK Melvin Insurance:SELF PAY [facility] Number: Effective Repository Date:2018-07-02
== END ==
PROVIDERS: Family Provider Family Medicine; PCP Family Medicine; Referring Provider Internal Medicine Cardiovascular Disease; Visit Provider Internal Medicine Cardiovascular Disease
DX: I42.9 Cardiomyopathy, unspecified (principal); I48.0 Paroxysmal atrial fibrillation
CPT/HCPCS: 36415; 80048

== ENCOUNTER 2018-10-02 09:15 | Outpatient (RCR) | payer OTHER, SELFPAY ==
[2018-09-06 00:45] VITALS: BP 144/82; BP 154/82; BMI 39.7
--- NOTE | 2018-09-16 10:31 | PCM.CR.ITP ---
Exercise - 30-day Assessment - Visit Date of Eval: 09/16/18 Session #:: 6 - Patient CR delayed due to progressive and uncontrollable coughing. Patient undergoing diagnostic testing and physician excused sessions. - Stages of Change Stages of Change:: Action - Exercise Prescription Mode:: Treadmill, Airdyne, NuStep Frequency (x/week): 3 Duration:: 30-45 METs - Progression: 0.5-1 MET as tolerated: 2.5 Target Heart Rate:: 102-109 - Hypertension Resting Blood Pressure:: 108/72 Peak Exercise Blood Pressure:: 140/72 - Room air SpO2 94%! Medication Changes:: Yes - Intervention Home Exercise/Activity Goal:: Sitting Time <3 hrs/day - Education Goals:: Warm-up, RPE SHARLA Scale, S/S, Safe Exercise, Self-Monitoring - Exercise Program Goals Exercise Program Goals: Aerobic Activity >30 min Nutrition - Initial Assessment - Program Goals Nutrition Program Goals: LDL <70. Total Cholesterol <200. HDL >45. Triglycerides <150. HgbA1C <7%. BMI <25 - Diabetes Do you monitor your blood sugar at home?: No Nutrition - 30-Day Assessment - Program Goals Nutrition Program Goals: LDL <70. Total Cholesterol <200. HDL >45. Triglycerides <150. HgbA1C <7%. BMI <25 - Visit Date of Eval: 09/16/18 - Stages of Change Stages of Change:: Action - Lipids Has the patient seen the dietitian?: No - Diabetes Diabetes:: No Insulin: No Non-Insulin Dependent?: No - Weight Management Weight:: 216 lb 8 oz - Intervention Referral to dietitian:: No Referral to Diabetic Clinic:: No Will attend diet classes:: Yes - Education Attended class for:: Healthy eating Tobacco - 30-Day Assessment - Program Goals Tobacco Program Goals: Complete smoking cessation. Attend education classes. Improve Knowledge Test score - Stage of Change Stages of Change:: Action - Learning Barriers Learning Barriers: Participates in education - Family Support Do you have family support?: Yes - Tobacco Use Tobacco Use: Non-smoker Do you use smokeless tobacco?: No - Intervention Education Schedule Given:: Yes - Education Attended class for:: Coronary artery disease, Risk factors, Sexuality, Medical compliance, Cardiac A&P, Angina signs & symptoms Psychosocial - Initial Assess - Target Goals Target Goals: Assess presence or absence of depression. Using a valid screening tool, maximizes coping skills. Positive support system - Psychosocial Test Tool Used:: HANDS Depression Questionnaire - Assistive Devices Fall Risk Assessed:: Yes Psychosocial - 30-Day Assess - Target Goals Target Goals: Assess presence or absence of depression. Using a valid screening tool, maximizes coping skills. Positive support system - Stages of Change Stages of Change:: Action - Psychosocial Test Tool Used:: HANDS Depression Questionnaire - Intervention PS - Interventions: Yes Attend Stress Management Classes, No Referral to Mental Health, No Referral to [facility] Case Management, No Referral to Physician, No Uses Stress Management Skills - Education Attended classes for:: Coping techniques, Signs & symptoms of depression, Stress management, Relaxation techniques - Patient/Program Goal Preventative Medication(s):: Aspirin, Clopidogrel, Beta monica, Statin/lipid - Assistive Devices Assistive Devices:: Cane - depending on the day Fall Risk Assessed:: Yes Patient Health Questionnaire 30-Day Re-eval Assessment 1. Little interest or pleasure in doing things: More than half the days 2. Feeling down, depressed, or hopeless: Several days 3. Trouble falling or staying asleep, or sleeping too much: Not at all 4. Feeling tired or having little energy: More than half the days 5. Poor appetite or overeating: Not at all 6. Feeling bad about yourself -- or that you are a failure or have let yourself or your family down: More than half the days 7. Trouble concentrating on things, such as reading the newspaper or watching television: Several days 8. Moving or speaking so slowly that other people could have noticed. Or the opposite - being so fidgety or restless that you have been moving around a lot more than usual: Not at all 9. Thoughts that you would be better off , or of hurting yourself in some way: Not at all Total Score: 8 Self-Efficacy 30-Day Re-eval Assessment We would like to know how confident you are in doing certain activities. Please select your confidence level for:: Select your confidence level for the following using the scale 1-10 where 1 is not at all confident and 10 is totally confident. Your score is the average of all 6 responses. Fatigue: How confident are you that you can keep the fatigue caused by your disease from interfering with the things you want to do? Select Number: 10 Physical Discomfort or Pain: How confident are you that you can keep the physical discomfort or pain of your disease from interfering with the things you want to do? Select Number: 10 Emotional Distress: How confident are you that you can keep the emotional distress caused by your disease from interfering with the things you want to do? Select Number: 10 Other Symptoms or Health Problems: How confident are you that you can keep other symptoms or health problems from interfering with the things you want to do? Select Number: 10 Different Tasks and Activities: How confident are you that you can do the different tasks and activities needed to manage your health condition so as to reduce your need to see a doctor? Select Number: 10 Medication: How confident are you that you can do things other than just taking medication to reduce how much your illness affects your everyday life? Select Number: 10 Total Score:: 10
[2018-09-16 10:37] VITALS: BP 108/72; BP 140/72
== END 2018-10-03 23:59 ==
LOC: CR 09:15
PROVIDERS: Family Provider Family Medicine; PCP Family Medicine; Referring Provider Internal Medicine Cardiovascular Disease; Visit Provider Internal Medicine Cardiovascular Disease
DX: Z95.5 Presence of coronary angioplasty implant and graft (principal)
CPT/HCPCS: 93798

== ENCOUNTER 2018-10-02 09:59 | Outpatient (RCR) | payer OTHER, SELFPAY ==
[2018-09-06 00:45] VITALS: BMI 39.7
[2018-09-06 09:44] LABS: Anion Gap 6 (5-15); BUN 34 mg/dL (7-18); BUN/Creat Ratio 17.4 RATIO (10-20); Calcium,Total 8.9 mg/dL (8.5-10.1); Chloride 100 mmol/L (98-107); Creatinine, Serum 1.95 mg/dL (0.70-1.30); EST Glomerular Filtration Rate 36 mL/min (>60); Est Glom Filt Rate - Afr Amer 43 mL/min (>60); Glucose 146 mg/dL (74-106); Potassium 3.9 mmol/L (3.5-5.1); Sodium Level 137 mmol/L (136-145)
[2018-10-02 11:09] LABS: Anion Gap 10 (5-15); BUN 46 mg/dL (7-18); BUN/Creat Ratio 20.1 RATIO (10-20); Calcium,Total 9.1 mg/dL (8.5-10.1); Chloride 98 mmol/L (98-107); Creatinine, Serum 2.29 mg/dL (0.70-1.30); EST Glomerular Filtration Rate 30 mL/min (>60); Est Glom Filt Rate - Afr Amer 36 mL/min (>60); Glucose 89 mg/dL (74-106); Potassium 4.1 mmol/L (3.5-5.1); Sodium Level 139 mmol/L (136-145)
== END 2018-10-03 14:25 | disposition home or self-care (01) ==
LOC: LAB 09:59
PROVIDERS: Internal Medicine Cardiovascular Disease; Family Provider Family Medicine; PCP Family Medicine; Referring Provider Family Medicine; Visit Provider Family Medicine
DX: I50.9 Heart failure, unspecified (principal)
CPT/HCPCS: 36415; 80048

== ENCOUNTER → 2018-10-15 20:27 | Outpatient (CLI) | payer SELFPAY ==
[2018-09-18 10:04] VITALS: BMI 35.4
[2018-10-11 10:12] VITALS: BMI 35.6
== END ==
PROVIDERS: Family Provider Family Medicine; PCP Family Medicine; Referring Provider Nurse Practitioner Acute Care; Visit Provider Nurse Practitioner Acute Care
DX: G47.33 Obstructive sleep apnea (adult) (pediatric) (principal)
CPT/HCPCS: 95811

== ENCOUNTER 2018-11-01 09:15 | Outpatient (RCR) | payer OTHER, SELFPAY ==
[2018-10-04 00:40] VITALS: BP 108/72; BP 140/72; BMI 35.7
--- NOTE | 2018-10-16 08:27 | CR.ITP_ITS ---
General Information - General Information Admitting Diagnosis: PCI W/stent - Education/Goals Barriers to Learning: None Cardiac Rehabilitation Goals: 1. Maintain the individual as the primary focus of care. 2. To improve the patient's quality of life. 3. Identification of cardiac risk factors and provide cardiac risk factor management. 4. Enhance the psychosocial status of the patient. 5. Reconditioning enough to allow the patient to resume customary activities. 6. Control symptoms of cardiac disease Scale for measuring improvement of personal goals: Enter appropriate number in Comments. 2 = Unchanged. 3 = Slightly Better. 4 = Moderate Improvement. 5 = Met my Goal Exercise - 90-Day Assessment - Visit Date of Eval: 10/16/18 Session #:: 18 - Stages of Change Stages of Change:: Action - Physician Prescribed Exercise Modalities: Treadmill, Airdyne, NuStep Frequency (days/week): 3 Duration (Minutes):: 30-45 Intensity: 60-80% age predicted maximum heart rate reserve METs - Progression: 0.5-1.0 MET, RPE 11-14 WEEK: 2.5 Target Heart Rate:: 102-109 Max HR 80 - Hypertension Resting Blood Pressure:: 100/60 Peak Exercise Blood Pressure:: 130/80 - Intervention Home Exercise/Activity Goal:: Sitting Time <3 hrs/day - Education Goals:: Warm-up, RPE SHARLA Scale, S/S, Safe Exercise, Self-Monitoring - Exercise Program Goals Exercise Program Goals: Aerobic Activity >30 min, B/P <130/80 Nutrition - Initial Assessment - Program Goals Nutrition Program Goals: LDL <70. Total Cholesterol <200. HDL >45. Triglycerides <150. HgbA1C <7%. BMI <25 - Diabetes Do you monitor your blood sugar at home?: No Nutrition - 90-Day Assessment - Program Goals Nutrition Program Goals: LDL <70. Total Cholesterol <200. HDL >45. Triglycerides <150. HgbA1C <7%. BMI <25 - Visit Date of Eval: 10/16/18 - Stages of Change Stages of Change:: Action - Diabetes Random Blood Glucose:: 96 - Weight Management Weight:: 97.522 kg - Education Attended class for:: Signs & symptoms of hypoglycemia, Signs & symptoms of hyperglycemia, Relate diabetes to coronary artery disease, Healthy eating Tobacco - 90-Day Assessment - Program Goals Tobacco Program Goals: Complete smoking cessation. Attend education classes. Improve Knowledge Test score - Stage of Change Stages of Change:: Action - Learning Barriers Learning Barriers: Participates in education - Family Support Do you have family support?: Yes - Tobacco Use Tobacco Use: Non-smoker Do you use smokeless tobacco?: No - Intervention Smoking Cessation Referral:: No Individual Education/Counseling:: No Education Schedule Given:: Yes - Education Attended class for:: Tobacco triggers, Coronary artery disease, Risk factors, Sexuality, Medical compliance, Cardiac A&P, Angina signs & symptoms Psychosocial - Initial Assess - Target Goals Target Goals: Assess presence or absence of depression. Using a valid screening tool, maximizes coping skills. Positive support system - Psychosocial Test Tool Used:: HANDS Depression Questionnaire - Assistive Devices Fall Risk Assessed:: Yes Psychosocial - 90-Day Assess - Target Goals Target Goals: Assess presence or absence of depression. Using a valid screening tool, maximizes coping skills. Positive support system - Stages of Change Stages of Change:: Action - Psychosocial Test Tool Used:: HANDS Depression Questionnaire - Intervention PS - Interventions: Yes Attend Stress Management Classes, Yes Uses Stress Management Skills, No Referral to Mental Health, No Referral to [facility] Case Management, No Referral to Physician - Education Attended classes for:: Coping techniques, Signs & symptoms of depression, Stress management, Relaxation techniques - Assistive Devices Assistive Devices:: None Patient Health Questionnaire 90-Day Re-eval Assessment 1. Little interest or pleasure in doing things: More than half the days 2. Feeling down, depressed, or hopeless: Several days 3. Trouble falling or staying asleep, or sleeping too much: Not at all 4. Feeling tired or having little energy: More than half the days 5. Poor appetite or overeating: Not at all 6. Feeling bad about yourself -- or that you are a failure or have let yourself or your family down: More than half the days 7. Trouble concentrating on things, such as reading the newspaper or watching television: Several days 8. Moving or speaking so slowly that other people could have noticed. Or the opposite - being so fidgety or restless that you have been moving around a lot more than usual: Not at all 9. Thoughts that you would be better off , or of hurting yourself in some way: Not at all How difficult have these problems made it for you to do your work, take care of things at home, or get along with other people?: Not difficult at all Total Score: 8 Self-Efficacy 90-Day Re-eval Assessment We would like to know how confident you are in doing certain activities. Please select your confidence level for:: Select your confidence level for the following using the scale 1-10 where 1 is not at all confident and 10 is totally confident. Your score is the average of all 6 responses. Fatigue: How confident are you that you can keep the fatigue caused by your disease from interfering with the things you want to do? Select Number: 10 Physical Discomfort or Pain: How confident are you that you can keep the physical discomfort or pain of your disease from interfering with the things you want to do? Select Number: 10 Emotional Distress: How confident are you that you can keep the emotional distress caused by your disease from interfering with the things you want to do? Select Number: 10 Other Symptoms or Health Problems: How confident are you that you can keep other symptoms or health problems from interfering with the things you want to do? Select Number: 10 Different Tasks and Activities: How confident are you that you can do the different tasks and activities needed to manage your health condition so as to reduce your need to see a doctor? Select Number: 10 Medication: How confident are you that you can do things other than just taking medication to reduce how much your illness affects your everyday life? Select Number: 10 Total Score:: 10
[2018-10-16 08:30] VITALS: BP 100/60; BP 130/80
== END 2018-11-03 23:59 ==
LOC: CR 09:15
PROVIDERS: Family Provider Family Medicine; PCP Family Medicine; Referring Provider Internal Medicine Cardiovascular Disease; Visit Provider Internal Medicine Cardiovascular Disease
DX: Z95.5 Presence of coronary angioplasty implant and graft (principal)
CPT/HCPCS: 93798

== ENCOUNTER → 2018-11-06 09:57 | Outpatient (CLI) | payer SELFPAY ==
[2018-08-15 07:35] VITALS: BMI 35.7
[2018-11-04 00:38] VITALS: BMI 35.4
--- NOTE | 2018-11-06 10:00 | CT_ITS ---
STUDY: CT CHEST WITHOUT CONTRAST REASON FOR EXAM: Male, 78 years old. Chronic cough. History of lobe pulmonary nodule. RADIATION DOSAGE (If Supplied By Facility): CTDIvol = ( 18.89 ) mGy, DLP = ( 1261.40 ) mGycm TECHNIQUE: Transaxial imaging was performed without the administration of intravenous contrast material. Multiplanar coronal and sagittal images were reformatted. Individualized dose optimization techniques were used for this CT. COMPARISON: Comparison is made with prior study dated August 12, 2018. FINDINGS: Stable fibrocalcific scarring along the anterior medial aspect of the right upper lobe. Residual infiltrate and/or scarring in the posteromedial segment of the right lower lobe although this has improved. There also has been improved aeration of the left lung base with mild residual scarring. There are calcifications of the coronary arteries. Normal mediastinum. Densely calcified right hilar lymph nodes. Normal unenhanced pulmonary arteries. There is atherosclerotic calcification of the aortic arch. There are multi-level degenerative changes of the thoracic spine. Stable 2.2 cm x 2 cm calcified nodule in the superior aspect of the spleen. CT/Chest without Contrast IMPRESSION: Since prior study, there has been improved aeration of both lung bases. Stable pleural-parenchymal scarring in the right lung apex. Electronically Signed: Bacilio Mitchell, at 8:47 EDT , Service support ,
== END ==
PROVIDERS: Family Provider Family Medicine; PCP Family Medicine; Referring Provider Internal Medicine Critical Care Medicine; Visit Provider Internal Medicine Critical Care Medicine
DX: R91.1 Solitary pulmonary nodule (principal)
CPT/HCPCS: 71250

== ENCOUNTER 2018-11-13 10:12 | Outpatient (RCR) | payer OTHER, SELFPAY ==
[2018-11-04 00:38] VITALS: BMI 35.4
[2018-11-13 11:01] LABS: International Normalized Ratio 2.4; Prothrombin Time (Protime)PT. 26.3 SECONDS (11.7-14.9)
[2018-11-13 11:25] LABS: Anion Gap 8 (5-15); BUN 29 mg/dL (7-18); BUN/Creat Ratio 17.2 RATIO (10-20); Calcium,Total 8.9 mg/dL (8.5-10.1); Chloride 105 mmol/L (98-107); Creatinine, Serum 1.69 mg/dL (0.70-1.30); EST Glomerular Filtration Rate 42 mL/min (>60); Est Glom Filt Rate - Afr Amer 51 mL/min (>60); Glucose 98 mg/dL (74-106); Potassium 4.2 mmol/L (3.5-5.1); Sodium Level 140 mmol/L (136-145)
== END 2018-12-03 16:00 | disposition home or self-care (01) ==
LOC: LAB 10:12
PROVIDERS: Family Provider Family Medicine; PCP Family Medicine; Referring Provider Family Medicine; Visit Provider Family Medicine
DX: N28.9 Disorder of kidney and ureter, unspecified (principal); Z79.01 Long term (current) use of anticoagulants
CPT/HCPCS: 36415; 80048; 85610

== ENCOUNTER 2018-11-29 09:15 | Outpatient (RCR) | payer OTHER, SELFPAY ==
[2018-11-04 00:38] VITALS: BP 100/60; BP 130/80; BMI 35.4
--- NOTE | 2018-11-13 13:00 | PCM.CR.ITP ---
General Information - General Information Admitting Diagnosis: PCI with Stent - Education/Goals Cardiac Rehabilitation Goals: 1. Maintain the individual as the primary focus of care. 2. To improve the patient's quality of life. 3. Identification of cardiac risk factors and provide cardiac risk factor management. 4. Enhance the psychosocial status of the patient. 5. Reconditioning enough to allow the patient to resume customary activities. 6. Control symptoms of cardiac disease Scale for measuring improvement of personal goals: Enter appropriate number in Comments. 2 = Unchanged. 3 = Slightly Better. 4 = Moderate Improvement. 5 = Met my Goal Exercise - Final/Discharge - Visit Date of Eval: 11/13/18 Session #:: 30 - Stages of Change Stages of Change:: Action - Physician Prescribed Exercise Modalities: Treadmill, Airdyne, NuStep Frequency (days/week): 3 Duration (Minutes):: 30-45 Intensity: 60-80% age predicted maximum heart rate reserve METs - Progression: 0.5-1.0 MET, RPE 11-14 WEEK: 3 Target Heart Rate:: 102-109 Max HR 73 - Intervention Home Exercise/Activity Goal:: Sitting Time <3 hrs/day - Education Goal Progress: Progressing - Exercise Program Goals Exercise Program Goals: Aerobic Activity >30 min, B/P <130/80 Nutrition - Initial Assessment - Program Goals Nutrition Program Goals: LDL <70. Total Cholesterol <200. HDL >45. Triglycerides <150. HgbA1C <7%. BMI <25 - Diabetes Do you monitor your blood sugar at home?: No Nutrition - Final Assessment - Program Goals Nutrition Program Goals: LDL <70. Total Cholesterol <200. HDL >45. Triglycerides <150. HgbA1C <7%. BMI <25 - Visit Date of Eval: 11/13/18 - Stages of Change Stages of Change:: Action - Diabetes Diabetes:: Yes - Weight Management Weight:: 98.656 kg - Education Education Goal Reached?: Yes Tobacco - Final Assessment - Program Goals Tobacco Program Goals: Complete smoking cessation. Attend education classes. Improve Knowledge Test score - Stage of Change Stages of Change:: Action - Family Support Do you have family support?: Yes - Tobacco Use Tobacco Use: Non-smoker Do you use smokeless tobacco?: No - Intervention Smoking Cessation Referral:: No Individual Education/Counseling:: No Education Schedule Given:: Yes - Education Education Goal Reached?: Yes Psychosocial - Initial Assess - Target Goals Target Goals: Assess presence or absence of depression. Using a valid screening tool, maximizes coping skills. Positive support system - Psychosocial Test Tool Used:: HANDS Depression Questionnaire - Assistive Devices Fall Risk Assessed:: Yes Psychosocial - Final Assessmen - Target Goals Target Goals: Assess presence or absence of depression. Using a valid screening tool, maximizes coping skills. Positive support system - Stages of Change Stages of Change:: Action - Psychosocial Test Tool Used:: HANDS Depression Questionnaire - Intervention PS - Interventions: Yes Attend Stress Management Classes, Yes Uses Stress Management Skills, No Referral to Mental Health, No Referral to [facility] Case Management, No Referral to Physician - Education Education Goal Reached?: Yes - Assistive Devices Assistive Devices:: None Fall Risk Assessed:: Yes Patient Health Questionnaire Discharge Assessment 1. Little interest or pleasure in doing things: More than half the days 2. Feeling down, depressed, or hopeless: Several days 3. Trouble falling or staying asleep, or sleeping too much: Not at all 4. Feeling tired or having little energy: More than half the days 5. Poor appetite or overeating: Not at all 6. Feeling bad about yourself -- or that you are a failure or have let yourself or your family down: More than half the days 7. Trouble concentrating on things, such as reading the newspaper or watching television: Several days 8. Moving or speaking so slowly that other people could have noticed. Or the opposite - being so fidgety or restless that you have been moving around a lot more than usual: Not at all 9. Thoughts that you would be better off , or of hurting yourself in some way: Not at all How difficult have these problems made it for you to do your work, take care of things at home, or get along with other people?: Not difficult at all Total Score: 8 Self-Efficacy Discharge Assessment We would like to know how confident you are in doing certain activities. Please select your confidence level for:: Select your confidence level for the following using the scale 1-10 where 1 is not at all confident and 10 is totally confident. Your score is the average of all 6 responses. Fatigue: How confident are you that you can keep the fatigue caused by your disease from interfering with the things you want to do? Select Number: 10 Physical Discomfort or Pain: How confident are you that you can keep the physical discomfort or pain of your disease from interfering with the things you want to do? Select Number: 10 Emotional Distress: How confident are you that you can keep the emotional distress caused by your disease from interfering with the things you want to do? Select Number: 10 Other Symptoms or Health Problems: How confident are you that you can keep other symptoms or health problems from interfering with the things you want to do? Select Number: 10 Different Tasks and Activities: How confident are you that you can do the different tasks and activities needed to manage your health condition so as to reduce your need to see a doctor? Select Number: 10 Medication: How confident are you that you can do things other than just taking medication to reduce how much your illness affects your everyday life? Select Number: 10 Total Score:: 10
== END 2018-12-03 23:59 ==
LOC: CR 09:15
PROVIDERS: Family Provider Family Medicine; PCP Family Medicine; Referring Provider Internal Medicine Cardiovascular Disease; Visit Provider Internal Medicine Cardiovascular Disease
DX: Z95.5 Presence of coronary angioplasty implant and graft (principal)
CPT/HCPCS: 93798

== ENCOUNTER 2018-12-06 08:54 | Outpatient (RCR) | payer OTHER, SELFPAY ==
[2018-12-04 00:52] VITALS: BP 100/60; BP 130/80; BMI 35.6
== END 2019-01-03 23:59 ==
LOC: CR 08:54
PROVIDERS: Family Provider Family Medicine; PCP Family Medicine; Referring Provider Internal Medicine Cardiovascular Disease; Visit Provider Internal Medicine Cardiovascular Disease
DX: Z95.5 Presence of coronary angioplasty implant and graft (principal)

== ENCOUNTER → 2018-12-06 11:06 | Outpatient (CLI) | payer OTHER, SELFPAY ==
[2018-12-06 11:06] VITALS: BMI 35.9
[2018-12-06 11:28] LABS: International Normalized Ratio 2.3; Prothrombin Time (Protime)PT. 25.4 SECONDS (11.7-14.9)
== END ==
PROVIDERS: Family Provider Family Medicine; PCP Family Medicine; Referring Provider Nurse Practitioner Family; Visit Provider Nurse Practitioner Family
DX: I48.0 Paroxysmal atrial fibrillation (principal)
CPT/HCPCS: 85610

== ENCOUNTER → 2019-04-24 10:18 | Outpatient (CLI) | payer SELFPAY ==
[2019-04-18 09:56] VITALS: BMI 36.8
--- NOTE | 2019-04-24 10:43 | CT_ITS ---
STUDY: CT ABDOMEN AND PELVIS WITH AND WITHOUT CONTRAST REASON FOR EXAM: Male, 78 years old. One-day history of gross hematuria. RADIATION DOSAGE (If Supplied By Facility): CTDIvol = ( 21.93 ) mGy, DLP = ( 3155.39 ) mGycm TECHNIQUE: Transaxial images were obtained from the dome of the diaphragm to the symphysis pubis without oral contrast. 100CC IV Isovue 300 was administered. Sagittal and coronal images were reconstructed. Individualized dose optimization techniques were used for this CT. COMPARISON: None. FINDINGS: Increased markings are seen at the lung bases suggestive of bibasilar scarring. Coronary artery calcification. Normal liver. Normal gallbladder and extrahepatic biliary system. There is a 2.2 cm x 2.3 cm rim calcification density in the superior aspect of the spleen most likely absent and a calcified splenic cyst. Scattered splenic granulomas. Normal pancreas. Normal bilateral adrenal glands. Normal right kidney. Normal left kidney. There is a small hiatal hernia. Normal small intestine. There are multiple colonic diverticula consistent with diverticulosis. The appendix is visualized and appears normal. Normal abdominal aorta. Normal inferior vena cava. There is borderline retroperitoneal lymphadenopathy with enlarged nodes no greater than 10mm in the short axis diameter. Increased markings are seen within the fat of the root of the mesentery. This is a nonspecific sign. Distended urinary bladder. Mild degree of the diffuse bladder wall thickening. There is a 5.7 cm x 5.6 cm diverticulum along the posterolateral aspect of the left side of the bladder. There is also evidence of a 2.7 cm x 2.6 cm diverticulum in the posterior aspect of the right side of the bladder. Smaller diverticula also seen in the superior aspect. There is enlargement of the prostate gland. This causes indentation of the bladder base. There is a left-sided inguinal hernia containing adipose tissue. There are diffuse degenerative changes of the visualized lumbar spine. Prior right hip replacement. CT/CT Abd/Pelvis W/WO Contrast IMPRESSION: Distended urinary bladder with multiple diverticula. Diffuse bladder wall thickening. Electronically Signed: Bacilio Mitchell, at 12:29 EDT , Service support ,
[2019-04-24 10:47] LABS: Hematocrit 40.3 % (40-54); Mean Corp Hgb Conc 32.3 g/dL (32-36); Mean Corpuscular Volume 92.9 fL (80-94); Mean Platelet Vol. 9.5 fl (6.2-12.0); Platelet Count 153 K/mm3 (150-450); RBC Distribution Width CV 14.4 % (11.6-14.6); Red Blood Count 4.34 M/mm3 (4.6-6.2); White Blood Count 7.9 K/mm3 (4.4-11.0)
[2019-04-24 10:56] LABS: International Normalized Ratio 1.8; Prothrombin Time (Protime)PT. 21.2 SECONDS (11.7-14.9)
[2019-04-24 11:06] LABS: CREATININE FINGERSTICK 1.3 mg/dL (0.70-1.30)
== END ==
PROVIDERS: Family Provider Family Medicine; PCP Family Medicine; Referring Provider Urology; Visit Provider Urology
DX: R31.0 Gross hematuria (principal); Z79.01 Long term (current) use of anticoagulants
CPT/HCPCS: 36415; 74178; 85027; 85610; Q9967

== ENCOUNTER 2019-05-08 14:08 | Observation (INO) | payer SELFPAY ==
[2019-04-18 09:56] VITALS: BMI 36.8
[2019-05-05 08:59] LABS: Hematocrit 39.4 % (40-54); Hemoglobin 12.5 g/dL (13.0-16.5); Mean Corp Hgb Conc 31.7 g/dL (32-36); Mean Corpuscular Hgb 29.9 pg (27.0-32.0); Mean Corpuscular Volume 94.3 fL (80-94); Mean Platelet Vol. 9.8 fl (6.2-12.0); Platelet Count 159 K/mm3 (150-450); RBC Distribution Width SD 48.5 fl (35.1-43.9); Red Blood Count 4.18 M/mm3 (4.6-6.2)
[2019-05-05 09:30] LABS: ALB/GLOB Ratio 0.9 RATIO (0.9-2.4); AST(SGOT) 23 U/L (15-37); Alanine Aminotransfer ALT/SGPT 29 U/L (16-61); Albumin, Serum 3.3 g/dL (3.2-5.0); Alkaline Phosphatase 80 U/L (45-117); Anion Gap 6 (5-15); BUN 29 mg/dL (7-18); BUN/Creat Ratio 16.6 RATIO (10-20); Calcium,Total 9.1 mg/dL (8.5-10.1); Chloride 104 mmol/L (98-107); Creatinine, Serum 1.75 mg/dL (0.70-1.30); EST Glomerular Filtration Rate 40 mL/min (>60); Est Glom Filt Rate - Afr Amer 49 mL/min (>60); Globulin 3.8 g/dL (2.2-4.2); Glucose 151 mg/dL (74-106); Potassium 4.5 mmol/L (3.5-5.1); Protein, Total 7.1 g/dL (6.4-8.2); Sodium Level 140 mmol/L (136-145)
[2019-05-05 09:31] LABS: Hemoglobin A1c 5.8 % (4.2-6.3)
[2019-05-07] VITALS (12 sets, daily range): BP systolic 110–148; BP diastolic 45–75; PULSE 48–65; RESP 18–20; TEMP 36–36.9; O2SAT 92–100; BMI 35.4
--- NOTE | 2019-05-07 | FOR_PTH ---
PATIENT: JOSE A STEIN LOC: MS3 U#:[id number] AGE/SX: 78/M ROOM: MD321 RE05/08/[address]: Dr. Raymon Hawkins MD : 1940 BED: 1 DIS: 05/09/2019 SPEC #: [id number] RECD: 05/07/19 13:56 STATUS: RONDA REEliane #: [id number] STEVE: 05/07/19 00:[address]: Raymon Hawkins DEPT: SURGICAL PATHOLOGY RECD BY: Richard Coulter ENTERED: 05/07/19 13:57 SP TYPE: FORESKIN OTHR DR: Dr. Eric Newton MD Tissues: A - Urinary bladder, NOS B - Prostate, NOS C - Skin of foreskin, NOS Procedures: Surgery Specimen Level IV HEADER OPERATION: Robotic simple prostatectomy, bladder diverticulectomy PRE-OP DIAGNOSIS: Benign prostatic hyperplasia, gross hematuria, phimosis, diverticulum of bladder TISSUE SUBMITTED: A - Bladder diverticulum, B - Prostate tissue, C - Foreskin MICROSCOPIC DIAGNOSIS A. Bladder diverticulum: Pieces of urothelial mucosa with smooth muscle proper with chronic inflammation and focal squamous metaplasia, clinically bladder diverticulum. B. Prostate tissue, simple prostatectomy: Benign prostatic hyperplasia, glandular and stromal type. Focal mild chronic inflammation. C. 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 RY:dannielle 05/08/19 MICROSCOPIC DESCRIPTION Slides are reviewed. GROSS DESCRIPTION A - Received in fixative is one container labeled with the patient's name and designated bladder diverticulum. The specimen consists of a piece of lambert soft tissue measuring 9 x 5.5 x 1 cm. One surface of this piece is lambert-pink and smooth consistent with mucosal surface and do not reveal any mass lesion. The other surface shows adipose tissue. Also present in the container are two pieces of lambert-pink soft tissue that in aggregate measure 2 x 1.5 x 0.5 cm. No mass lesion is identified. Cigarette Carton Sealer sections are submitted in four cassettes as follows: 1 - smaller pieces of tissue, 2-4 - largest piece of tissue. B - Received in fixative is one container labeled with the patient's name and designated prostate tissue. The specimen consists of multiple irregular pieces of lambert, indurated tissue weighing 10 gm and measuring in aggregate 4 x 4.5 x 2 cm. Sections do not reveal any mass lesion. The entire specimen is submitted in five cassettes. C - Received in fixative is one container labeled with the patient's name and designated foreskin. The specimen consists of three pieces of lambert-wrinkled skin measuring 6 x 4 x 0.5 cm, 1 x 0.5 x 0.5 cm and 1 x 1 x 0.3 cm. No skin lesion is identified. Cigarette Carton Sealer sections are submitted in one cassette. / RY:dannielle 05/07/19 TC:3 CPT: 18715 x3
[2019-05-07 06:50] LABS: Bedside Glucose 102 mg/dL (70-110)
[2019-05-07] MEDS: Lactated Ringers 1,000 ML 100 ML IV ×3 (07:08→13:09)
[2019-05-07] MEDS: Cefazolin 2 GM in 0.9% Normal Saline 100 ML IV (07:35)
[2019-05-07] MEDS: Lubricating Jelly 60 GM Tube 30 GM TOPICAL (08:00)
[2019-05-07] MEDS: Bupivacaine Mpf 0.5% 30 ML VIAL (12:00)
--- NOTE | 2019-05-07 12:17 | PCM.OPRPT ---
Report of Operation Date of Procedure: 05/07/19 Pre-Operative Diagnosis: Bladder diverticula large x2, retention of urine and recurrent bladder infections, BPH with obstruction, severe phimosis of the foreskin. Post-Operative Diagnosis: The same Surgery/Procedure Performed:: Laparoscopic robotic assisted excision of bladder diverticulum x2, laparoscopic robotic assisted simple prostatectomy, circumcision. Description of Surgical Findings:: 78-year-old male presents the office with several urologic problems he has severe phimosis of the foreskin not able to retract the foreskin causing a lot of irritation and bother. 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 Recommended we proceed with excision of both the bladder diverticuli also to proceed with a simple prostatectomy to alleviate the obstruction and then we can proceed with a circumcision. This will be all done at the same anesthesia. 78-year-old male taken back to the operating room at the smooth induction of anesthesia he was placed in supine on the table he was placed in dorsolithotomy position with approach to the pelvis with the robot first made an incision in the midline advanced a Veress needle into the peritoneal cavity was not quite sure if it was in the peritoneal cavity to use a second alternate site on the alternate site then was able to insufflate the peritoneal cavity with CO2 gas we placed our camera trocar in the midline right and left arm trocar inspected the abdomen no signs of injury or bleeding inside the abdomen we then placed a air seal port and suction port I then went down to the bladder we first reflected the colon off the right side of the pelvis in order to identify the bladder put a catheter in the bladder insufflated the bladder he could see a large diverticulum coming off the lateral aspect of the bladder opened up the peritoneum over the diverticulum and then dissected the diverticulum to the bladder all the way to the bladder neck the diverticular neck and this dissection we identified the ureter that was running underneath the diverticulum on the left side we then excise the diverticulum from the bladder neck and then we closed the diverticulum with interrupted stitches we then opened up the midline of the bladder clamshell the bladder open with stitches then went to the prostate we we performed a simple prostatectomy in the prostate and asked incising the mucosa all the way circumferentially around the prostate and then dissecting the prostate adenoma all the way down to the sphincter exit removing all the prostate adenomatous tissue that was causing obstruction. Once this was done FloSeal was placed in the prostate bed and then we closed the gap with a stitch using a V lock suture we advanced the mucosa down to the sphincter and a running fashion all the way around from the bladder neck down to the sphincter of her catheter. Once this was completed then we went to the right side of the bladder and identified a large diverticulum of the right-sided diverticulum actually had purulent pus within side the diverticulum this was all suctioned out we then grabbed the diverticulum mucosa we excised the mucosa off the diverticulum from the inside of the diverticulum was the mucosa was dissected off then we closed the diverticular neck with running 3-0 Vicryl stitches once we completed this with excised both the right diverticulum the left large optic tic done we can we have performed a simple prostatectomy and then we closed the bladder in 2 layers in the midline. After closing the bladder layer into the midline we extracted the prosthetic tissue and the diverticular tissue from the extraction site in the umbilicus umbilicus we closed the supraumbilical trocar site and we closed our 1012 trocar site with air seal port was. I then went and performed a circumcision I excised the foreskin circumferentially of the penis and then excess excised sequentially below the sub-queen of the penis and then obtain hemostasis and then reanastomosed the shaft skin to the subcoronal skin all the way around circumferentially to his finish out the circumcision once circumcision was completed we left a 20 [place]ib[place]ian catheter in the bladder irrigated this out there was no bleeding patient anesthetic is being reversed to take back to PACU in good condition. Type of Anesthesia:: General Estimated Blood Loss (mL): 50cc - Admit VTE Documentation VTE Present on Admission: No VTE Mechan Device Prophylaxis: SCD's
[2019-05-07 12:49] LABS: Prothrombin Time Fingerstick 16.1 SEC (11.9-14.4)
[2019-05-07 13:00] LABS: Bedside Glucose 110 mg/dL (70-110)
[2019-05-07] MEDS: Ketorolac 15 MG/ML Vial IV (13:26)
--- NOTE | 2019-05-07 13:34 | CASEMGMT ---
Case Management Progress Note: This television writer to bedside to complete initial assessment, patient currently not in room and in procedure. CM to continue to follow for assessment and care coordination needs. Keenan Mcfarland RNCM
--- NOTE | 2019-05-07 15:27 | CASEMGMT ---
RN CM Assessment Introduced role of RN CM to patient, patient , dtr Ratna and son Berhane at bedside. Patient gives permission to discuss assessment in families presence.? Patient is alert, oriented and able?to participate in RN CM Assessment. ?Care providers, pharmacy, and demographics verified. Presentation: Scheduled surgery for Urologic problems Procedure: Laparoscopic robotic assisted excision of bladder diverticulum x2, laparoscopic robotic assisted simple prostatectomy, circumcision Re-Admit: No Barriers/Issues: None PCP: Eric Newton Specialists: Cardio- Dr Godoy, Uro- Dr Hawkins, Pulm- Dr Cruz and Dr Mcocy Preferred Pharmacy: [facility], [place] [employer] Insurance: [facility] Package Plan Rx Benefit:?Yes ?LNOK: Dtr Ratna Allan LW/HPOA: [facility]. Declines information or services on this admission and made aware can come as an outpatient to complete if he chooses. Living Arrangements:? Lives with and special needs 42yo son in a 2 story home, Bedroom on , 4 steps to enter home with rails. ADL?s: Independent with ambulation and ADLs Transportation: Hired drivers DME: [facility] HHC: None SNF: None Goal: Home and does not think will have any needs. Denies any issues/concerns/questions with DC planning at this time. Aware CM remains available for any emerging needs. DC PLAN: Home with no anticipated needs identified at this time. JUS Lemons
[2019-05-07] MEDS: Lactated Ringers 1,000 ML 125 ML IV (16:40)
[2019-05-07] MEDS: HYDROcodone Bitartrate/Apap 5/325 Tablet PO ×2 (16:40→22:40)
[2019-05-07] MEDS: metFORMIN HCl 500 MG Tablet PO (18:18)
[2019-05-07] MEDS: Furosemide 20 MG Tablet PO (18:19)
[2019-05-07] MEDS: Atorvastatin Calcium 40 MG Tablet PO (20:56)
[2019-05-07] MEDS: Ciprofloxacin 500 MG Tablet PO (20:56)
[2019-05-08] VITALS (7 sets, daily range): BP systolic 105–153; BP diastolic 52–73; PULSE 53–65; RESP 16–18; TEMP 36.6–36.9; O2SAT 93–98
[2019-05-08] MEDS: Lactated Ringers 1,000 ML 125 ML IV (00:39)
[2019-05-08] MEDS: HYDROcodone Bitartrate/Apap 5/325 Tablet PO ×4 (04:37→23:57)
[2019-05-08 06:02] LABS: Hematocrit 32.5 % (40-54); Hemoglobin 10.4 g/dL (13.0-16.5); Mean Corpuscular Hgb 29.7 pg (27.0-32.0); Mean Corpuscular Volume 92.9 fL (80-94); Mean Platelet Vol. 9.4 fl (6.2-12.0); Platelet Count 129 K/mm3 (150-450); RBC Distribution Width CV 13.8 % (11.6-14.6); RBC Distribution Width SD 47.3 fl (35.1-43.9); White Blood Count 8.1 K/mm3 (4.4-11.0)
[2019-05-08 06:31] LABS: Anion Gap 4 (5-15); BUN 28 mg/dL (7-18); Calcium,Total 8.2 mg/dL (8.5-10.1); Chloride 101 mmol/L (98-107); Creatinine, Serum 1.87 mg/dL (0.70-1.30); EST Glomerular Filtration Rate 37 mL/min (>60); Est Glom Filt Rate - Afr Amer 45 mL/min (>60); Estimated Creatinine Clearance 29.23 ml/min; Glucose 108 mg/dL (74-106); Potassium 4.9 mmol/L (3.5-5.1); Sodium Level 134 mmol/L (136-145)
--- NOTE | 2019-05-08 07:44 | PN_ITS ---
Subjective: Postoperative day #1 status post a robotic diverticulectomy and simple prostatectomy also circumcision. Urine is nice and clear this morning we can now flush as necessary. Regular diet Hep-Lock IV fluids ambulate. - Physical Exam General: Alert, Oriented x3, Cooperative HEENT: Atraumatic, PERRLA, EOMI, Normocephalic Neck: Supple, No JVD, Negative Carotid Bruits Lungs: Clear to auscultation, Normal air movement Cardiovascular: Regular rate, No murmurs Abdomen: Bowel Sounds Present, Soft, Non Tender Extremities: No edema, Capillary Refill Less than 3 Seconds Skin: No rashes, No breakdown Musculoskeletal: No Tenderness to Palpation of Joints or Extremities Neurological: Cranial nerves II-XII grossly intact Psych/Mental Status: Normal Affect, Appropriate Vital Signs Temp Pulse Resp BP Pulse Ox 97.8 F 53 L 16 112/52 L 93 05/08/19 02:43 05/08/19 02:43 05/08/19 02:43 05/08/19 02:43 05/08/19 02:43 Oxygen Flow Rate (L/min) 2 Oxygen Delivery Method CPAP Weight: 97.9 kg Body Mass Index (BMI) 35.4 Finger Stick Blood Glucose 110 Intake and Output for Last 24 Hours 05/06/19 05/07/19 05/08/19 23:59 23:59 23:59 Intake Total 2061.67 / 3261.67 2797.92 / 2797.92 Output Total 250 / 250 675 / 675 Balance 1811.67 / 3011.67 2122.92 / 2122.92 Laboratory Tests Past 24 Hrs 05/07/19 05/08/19 05/08/19 06:40 05:48 05:48 WBC 8.1 RBC 3.50 L Hgb 10.4 L Hct 32.5 L MCV 92.9 MCH 29.7 MCHC 32.0 RDW Std Deviation 47.3 H RDW Coeff of Alley 13.8 Plt Count 129 L MPV 9.4 POC PT 16.1 H INR 1.30 Sodium 134 L Potassium 4.9 Chloride 101 Carbon Dioxide 29.0 Anion Gap 4 L BUN 28 H Creatinine 1.87 H Estim Creat Clear Calc 29.23 Est GFR (MDRD) Af Amer 45 L Est GFR (MDRD) Non-Af 37 L BUN/Creatinine Ratio 15.0 Glucose 108 H Calcium 8.2 L POC Glucose 05/07/19 12:55 POC Glucose 110 Medical Necessity - Tobacco Use Smoking Status: Never smoker Tobacco Use: Non-smoker Assessment/Plan All Active Problems (Last Updated 04/18/19 @ 10:40 by DIANA Arcos) group home (current) use of anticoagulants (Acute) Advance to regular diet Hep-Lock IV fluids ambulate flush catheter as necessary anticipate discharge tomorrow.
[2019-05-08] MEDS: metFORMIN HCl 500 MG Tablet PO ×2 (08:27→17:54)
[2019-05-08] MEDS: Pantoprazole Sodium 20 MG Tablet PO (09:37)
[2019-05-08] MEDS: Furosemide 20 MG Tablet PO ×2 (09:37→17:54)
[2019-05-08] MEDS: Amiodarone 200 MG Tablet PO (09:37)
[2019-05-08] MEDS: Neomycin/Bacitracin/Polymyxin Ointment 1 APPLIC TOPICAL (09:38)
[2019-05-08] MEDS: Ciprofloxacin 500 MG Tablet PO ×2 (09:41→21:21)
[2019-05-08] MEDS: Tolterodine Tartrate 4 MG CAP.SA PO (10:57)
[2019-05-08] MEDS: Atorvastatin Calcium 40 MG Tablet PO (21:21)
[2019-05-08] MEDS: Metoprolol Tartrate 50 MG Tablet PO (21:21)
[2019-05-09 03:30] VITALS: BP 131/62; PULSE 56; RESP 20; TEMP 36.9; O2SAT 97
[2019-05-09 09:11] VITALS: O2SAT 97
[2019-05-09] MEDS: Pantoprazole Sodium 20 MG Tablet PO (09:22)
[2019-05-09] MEDS: metFORMIN HCl 500 MG Tablet PO (09:22)
[2019-05-09] MEDS: HYDROcodone Bitartrate/Apap 5/325 Tablet PO (09:22)
[2019-05-09] MEDS: Ciprofloxacin 500 MG Tablet PO (09:22)
[2019-05-09] MEDS: Amiodarone 200 MG Tablet PO (09:23)
[2019-05-09] MEDS: Furosemide 20 MG Tablet PO (09:23)
[2019-05-09 09:37] VITALS: BP 124/60; PULSE 56; RESP 18; TEMP 36.8; O2SAT 98
[2019-05-09] MEDS: Neomycin/Bacitracin/Polymyxin Ointment 1 APPLIC TOPICAL (09:43)
--- NOTE | 2019-05-09 10:57 | DCINST_ITS ---
Discharge Diet: Light diet - advance as tolerated Discharge Activity: May not drive while taking narcotic pain medications., May Shower Lifting Restrictions: no lifting, no working. Call your doctor if your incision/area has: Continuous Slow Oozing, Sudden Increased Bleeding, Increased Pain/ Swelling, Increased Redness, Foul Smelling Discharge, Swelling at the incision site Call your doctor if you observe: Fever of 101 or Higher, Inability to have a bowel movement Suture Line Care: Avoid Pulling/Pushing Catheter: Márquez to leg bag, Márquez to large bag Drain: [place] Allergies/Adverse Reactions: Allergies No Known Allergies Allergy (Verified 05/02/19 08:27) Medications to take at Discharge Aspirin [Aspirin, Baby] 81 mg PO DAILY@0800 07/02/18 Omeprazole [Prilosec] 20 mg PO DAILY 07/02/18 metFORMIN HCl [Glucophage] 500 mg PO BID 07/02/18 atorvastatin 40 mg tablet 40 mg PO QHS #30 tab 07/29/18 lorazepam 0.5 mg tablet 0.5 mg PO QD-BID PRN 07/29/18 potassium chloride ER 20 mEq tablet,extended release 20 meq PO BID #60 tab 08/09/18 warfarin 4 mg tablet 2 mg PO .COMPLEX tab 09/18/18 furosemide 20 mg tablet 20 mg PO BID #180 tab 10/29/18 clopidogrel 75 mg tablet 75 mg PO .COMPLEX #30 tab 01/09/19 amiodarone 200 mg tablet 200 mg PO DAILY #30 tab 03/18/19 metoprolol tartrate 50 mg tablet 50 mg PO BID #180 tab 04/18/19 Primary Care Physician: Eric Newton MD [Primary Care Provider] - Test Results: Test results from this visit will be discussed in further detail at your follow- up appointment, if applicable. Please Follow Up With: Raymon Hawkins MD When: call for appt.
--- NOTE | 2019-05-09 11:01 | DS.PCM_ITS ---
Discharge Date and Diagnosis Date of Admission: 05/07/19 Date of Discharge: 05/09/19 - Secondary Discharge Diagnosis Chronic Problems (Last Updated 04/18/19 @ 10:40 by DIANA Arcos) KIM (obstructive sleep apnea) (Chronic) Lung nodule (Chronic) Restrictive airway disease (Chronic) Essential hypertension (Chronic) HLD (hyperlipidemia) (Chronic) GERD (gastroesophageal reflux disease) (Chronic) Paroxysmal A-fib (Chronic) Atrial fibrillation and flutter (Chronic) Cardiomyopathy (Chronic) CHF (congestive heart failure) (Chronic) Hyperglycemia (Chronic) Renal insufficiency (Chronic) S/P coronary artery stent placement (Chronic ~07/04/18) PTCA/CARLOS of the RCA 07/04/18 Atherosclerotic heart disease of [place] coronary artery without angina pectoris (Chronic) Hospital Course and Treatment Operations: - - robotic diverticulectomy, simple prostatectomy and circumcision Procedures: None Summary of Care Provided: The patient is a 78 year old male s/p surgery for bladder diverticulectomy, bph, phimosis, did well after surgery, ambulated, tom reg diet, +flatus, abd soft benign home with dumont, urine clear. - Physical Exam General: Alert, Oriented x3, Cooperative HEENT: Atraumatic, PERRLA, EOMI, Normocephalic Neck: Supple, No JVD, Negative Carotid Bruits Lungs: Clear to auscultation, Normal air movement Cardiovascular: Regular rate, No murmurs Abdomen: Bowel Sounds Present, Soft, Non Tender Extremities: No edema, Capillary Refill Less than 3 Seconds Skin: No rashes, No breakdown Musculoskeletal: No Tenderness to Palpation of Joints or Extremities Neurological: Cranial nerves II-XII grossly intact Psych/Mental Status: Normal Affect, Appropriate Vital Signs Temp Pulse Resp BP Pulse Ox 98.2 F 56 L 18 124/60 H 98 05/09/19 09:37 05/09/19 09:37 05/09/19 09:37 05/09/19 09:37 05/09/19 09:37 Oxygen Flow Rate (L/min) 2 Oxygen Delivery Method Room Air Weight: 97.9 kg Body Mass Index (BMI) 35.4 Finger Stick Blood Glucose 110 Intake and Output for Last 24 Hours 05/07/19 05/08/19 05/09/19 23:59 23:59 23:59 Intake Total 2061.67 / 3261.67 4797.92 / 5197.92 800 / 800 Output Total 250 / 250 2175 / 4025 3100 / 3100 Balance 1811.67 / 3011.67 2622.92 / 1172.92 -2300 / -2300 Discharge Diet: Light diet - advance as tolerated Discharge Activity: May not drive while taking narcotic pain medications., May Shower Call your doctor if your incision/area has: Continuous Slow Oozing, Sudden Increased Bleeding, Increased Pain/ Swelling, Increased Redness, Foul Smelling Discharge, Swelling at the incision site Call your doctor if you observe: Fever of 101 or Higher, Inability to have a bowel movement Suture Line Care: Avoid Pulling/Pushing Catheter: Dumont to leg bag, Dumont to large bag Drain: [place] Home Medications: Medications to take at Discharge Aspirin [Aspirin, Baby] 81 mg PO DAILY@0800 07/02/18 Omeprazole [Prilosec] 20 mg PO DAILY 07/02/18 metFORMIN HCl [Glucophage] 500 mg PO BID 07/02/18 atorvastatin 40 mg tablet 40 mg PO QHS #30 tab 07/29/18 lorazepam 0.5 mg tablet 0.5 mg PO QD-BID PRN 07/29/18 potassium chloride ER 20 mEq tablet,extended release 20 meq PO BID #60 tab 08/09/18 warfarin 4 mg tablet 2 mg PO .COMPLEX tab 09/18/18 furosemide 20 mg tablet 20 mg PO BID #180 tab 10/29/18 clopidogrel 75 mg tablet 75 mg PO .COMPLEX #30 tab 01/09/19 amiodarone 200 mg tablet 200 mg PO DAILY #30 tab 03/18/19 metoprolol tartrate 50 mg tablet 50 mg PO BID #180 tab 04/18/19 Ciprofloxacin [Cipro] 500 mg PO BID #20 tab 05/09/19 Docusate Sodium [Colace] 100 mg PO BID #10 cap 05/09/19 Hydrocodone/Acetaminophen [[place] 5-325 Tablet] 1 ea PO Q4H PRN PRN 7 Days #14 tab 05/09/19 Neomycin/Bacitracin/Polymyxin [Neosporin] 1 applic TOPICAL TID #30 tube 05/09/19 Following Prescrptions Were Given to Patient: Ciprofloxacin [Cipro] 500 mg PO BID #20 tab Prescription Printed Docusate Sodium [Colace] 100 mg PO BID #10 cap Prescription Printed Neomycin/Bacitracin/Polymyxin [Neosporin] 1 applic TOPICAL TID #30 tube Prescription Printed Hydrocodone/Acetaminophen [[place] 5-325 Tablet] 1 ea PO Q4H PRN PRN 7 Days #14 tab PRN Reason: Pain Score 1-10/10 Prescription Printed Primary Care Physician: Eric Newton MD [Primary Care Provider] - Please Follow Up With: Raymon Hawkins MD When: call for appt. Medical Necessity - Tobacco Use Smoking Status: Never smoker Tobacco Use: Non-smoker Meaningful Use Info Meaningful Use Diagnoses (Choose all that apply): None applicable
[2019-05-09 12:41] VITALS: BP 133/62; PULSE 51; RESP 18; TEMP 36.3; O2SAT 99
== END 2019-05-09 13:00 | disposition home or self-care (01) ==
PROVIDERS: Anesthesiology; Admitting Provider Urology; Family Provider Family Medicine; PCP Family Medicine; Referring Provider Urology; Visit Provider Urology
PROC: 0VT04ZZ Resection of Prostate, Percutaneous Endoscopic Approach (ICD-10-PCS; CPT 55867; principal; 2019-05-07 07:10)
DX: N32.3 Diverticulum of bladder (principal); N40.1 Benign prostatic hyperplasia with lower urinary tract symptoms; N13.8 Other obstructive and reflux uropathy; R33.9 Retention of urine, unspecified; N47.1 Phimosis; K21.9 Gastro-esophageal reflux disease without esophagitis; G47.33 Obstructive sleep apnea (adult) (pediatric); I48.0 Paroxysmal atrial fibrillation; N18.9 Chronic kidney disease, unspecified; E11.22 Type 2 diabetes mellitus with diabetic chronic kidney disease; I50.9 Heart failure, unspecified; E78.5 Hyperlipidemia, unspecified; I25.10 Atherosclerotic heart disease of native coronary artery without angina pectoris; Z79.899 Other long term (current) drug therapy; Z79.82 Long term (current) use of aspirin; Z79.02 Long term (current) use of antithrombotics/antiplatelets; Z79.84 Long term (current) use of oral hypoglycemic drugs; Z79.01 Long term (current) use of anticoagulants
CPT/HCPCS: 00860; 51525; 54161; 55899; S2900; 36415; 36416; 80048; 80053; 82962; 83036; 85027; 85610; 86850; 86900; 86901; 88304; 88305; 96360; 96361; 99218; J7120; G0378; G0379; J2405

== ENCOUNTER 2019-07-06 11:58 | Emergency (ER) | payer OTHER, SELFPAY ==
[2019-06-09 16:03] VITALS: BMI 35.4
[2019-07-06 11:59] VITALS: BP 135/51; PULSE 54; RESP 20; TEMP 36.7; O2SAT 95; BMI 36.6
--- NOTE | 2019-07-06 13:28 | ED.VISSUMM ---
- ER Visit Summary Date of Service: 07/06/19 Chief Complaint: Right-sided nosebleed on Coumadin History of Present Illness: The patient is a 78 M history of TIA, CAD, cardiac stent, A. fib and diabetes. Patient basically had a nosebleed for about 3 hours this morning. Which he stopped using a cotton ball. Currently there is no active bleeding. He is on Coumadin this as level checked about 2 weeks ago and thought it was a normal anticoagulation range. He denies any hematuria or melena. No excessive bruising. He does not get frequent nosebleeds. Physical Examination: Older male no acute distress vital signs are stable he is afebrile. H EENT exam he has a cottonball on the right side of his nose when I removed it there is dried blood but no active bleeding. He is an obvious source from the anterior Mellisa back's plexus on the right of the nasal septum near the naris. Left there is no bleeding. Posterior pharynx dried blood but no active bleeding. Lungs clear clear to auscultation. Heart regular rhythm. Abdomen soft nontender. Moving all 4 extremities. Neurologically is awake and alert. Test Results: CBC shows white count of 10 hemoglobin 11 previously his hemoglobin was 10. He is on Coumadin his INR 3.0. Emergency Department Course and Treatment: Patient's bleeding was already stopped. I did not need to use any Afrin or Pieter-Synephrine. I placed a rapid Rhino rocket lubricated with antibiotic ointment on the right side of his nose. He tolerated this well. Nurses will secure that with tape. Treatment Plan: Pull packing in 3 days. Amoxicillin 3 times daily for 3 days. Return if recurrent bleeding unable to stop or follow-up with ENT. Repeat exam is doing well at 1400 p.m. He will be placed on amoxicillin 3 times daily for 3 days. For the packing out 3 days. Hold his Coumadin tonight but restart his normal dose tomorrow. Disposition: Discharge Impression: Right anterior epistaxis Anterior nasal pack (rapid Rhino) placed by ER Anticoagulated on Coumadin This note was generated with [employer] dictation software. It may contain incorrect words, spelling, and punctuation that were not noted in review of the chart prior to signing ED Disposition - Plan for ED Patient: Referrals: Eric Newton MD [Primary Care Provider] -
[2019-07-06 13:41] LABS: Hematocrit 35.5 % (40-54); Hemoglobin 11.3 g/dL (13.0-16.5); Mean Corp Hgb Conc 31.8 g/dL (32-36); Mean Platelet Vol. 9.9 fl (6.2-12.0); Platelet Count 177 K/mm3 (150-450); RBC Distribution Width CV 14.3 % (11.6-14.6); RBC Distribution Width SD 47.3 fl (35.1-43.9); White Blood Count 10.5 K/mm3 (4.4-11.0)
[2019-07-06 13:46] LABS: Prothrombin Time (Protime)PT. 30.9 SECONDS (11.7-14.9)
--- NOTE | 2019-07-06 14:12 | ED.DEP ---
ED Disposition - Plan for ED Patient: Disposition: Home or Assisted Living Instructions: Nosebleed Prescriptions: Amoxicillin 250 mg PO TID #10 cap Prescription Printed Referrals: Eric Newton MD [Primary Care Provider] - As Needed Rafael Harry MD [STAFF PHYSICIAN] - As Needed Additional Instructions: Nasal packing out in 3 days that would be no earlier than Sunday evening or Sunday morning. While that is and you should be on the antibiotic amoxicillin 1 pill 3 times a day. If rebleeds hold direct pressure for 20 to 30 minutes. If unable to get stopped return. Follow-up with ENT Dr. Rafael Harry as needed. Use antibiotic ointment for Vaseline to help lubricate your nose and keep it moist. Hold your Coumadin dose tonight but restart your normal dose tomorrow.
--- NOTE | 2019-07-06 14:21 | ED.RN ---
ASSISTED PT TO AMB IN HALLS. NO NEW NASAL DRAINAGE NOTED. DR GUTIERREZ INFORMED-STATES OK TO D/C HOME- PT TO TAKE MAG [facility] HOME TO DRINK.
[2019-07-06 14:36] VITALS: BP 139/86; PULSE 57; RESP 18; O2SAT 92
[2019-07-06] MEDS: Magnesium Citrate 300 ML PO (14:36)
== END 2019-07-06 14:40 | disposition home or self-care (01) ==
PROVIDERS: Emergency Provider Emergency Medicine; Family Provider Family Medicine; PCP Family Medicine
DX: R04.0 Epistaxis (principal); I25.10 Atherosclerotic heart disease of native coronary artery without angina pectoris; I48.91 Unspecified atrial fibrillation; E11.9 Type 2 diabetes mellitus without complications; Z95.5 Presence of coronary angioplasty implant and graft; Z79.01 Long term (current) use of anticoagulants; Z79.82 Long term (current) use of aspirin; Z79.84 Long term (current) use of oral hypoglycemic drugs; Z79.899 Other long term (current) drug therapy; Z86.73 Personal history of transient ischemic attack (TIA), and cerebral infarction without residual deficits
CPT/HCPCS: 30901; 85027; 85610; 99285; J7030; A4216

== ENCOUNTER → 2019-07-15 08:12 | Outpatient (CLI) | payer SELFPAY ==
[2019-07-06 11:59] VITALS: BMI 36.6
--- NOTE | 2019-07-15 08:17 | RAD_ITS ---
STUDY: X-RAY CHEST REASON FOR EXAM: Male, 78 years old. Cough. Shortness of breath for 3 to 4 weeks. TECHNIQUE: PA and lateral views of the chest. COMPARISON: CT of the chest, November 06, 2018. Chest, August 09, 2018. FINDINGS: The lungs are hyperexpanded. There is slightly increased interstitial markings at the lung bases which may be atelectatic or represent infiltrate. There is no demonstrated pleural abnormality. Normal size heart. Normal mediastinum and rishabh. Normal visualized pulmonary arteries. Normal visualized aortic arch and descending thoracic aorta. There are diffuse degenerative changes of the visualized thoracic spine. There is degenerative osteoarthritis of the bilateral shoulders. There is no demonstrated abnormality of the visualized soft tissue structures of the upper abdomen. RAD/Chest PA and Lateral IMPRESSION: Mildly increased interstitial markings at the lung bases without other change from August 09, 2018. Electronically Signed: Pedrito Oseguera DO at 17:09 EST Tel [phone], Service support ,
[2019-07-15 10:22] LABS: Anion Gap 3 (5-15); BUN 28 mg/dL (7-18); BUN/Creat Ratio 13.7 RATIO (10-20); Chloride 105 mmol/L (98-107); Creatinine, Serum 2.05 mg/dL (0.70-1.30); EST Glomerular Filtration Rate 34 mL/min (>60); Est Glom Filt Rate - Afr Amer 41 mL/min (>60); Glucose 107 mg/dL (74-106); Potassium 4.6 mmol/L (3.5-5.1); Sodium Level 139 mmol/L (136-145)
[2019-07-15 10:34] LABS: BNP,B-Type NATRIURETIC PEPTIDE 123.9 pg/mL (0-100)
== END ==
PROVIDERS: Family Provider Family Medicine; PCP Family Medicine; Referring Provider Nurse Practitioner Acute Care; Visit Provider Nurse Practitioner Acute Care
DX: I50.9 Heart failure, unspecified (principal); R06.02 Shortness of breath
CPT/HCPCS: 36415; 71046; 80048; 83880

== ENCOUNTER → 2019-07-25 13:36 | Outpatient (CLI) | payer SELFPAY, OTHER ==
[2019-07-15 12:08] VITALS: BMI 35.9
--- NOTE | 2019-07-25 13:37 | ECHOCS_ITS ---
Reason For Study: DYSPNEA Procedure This was a 2D Doppler, Color Flow transthoracic echocardiogram. The study was technically difficult. Contrast injection was performed. Exam performed in department. Left Ventricle Normal LV size. Left ventricular systolic function is normal. The estimated ejection fraction is 65 %. There is evidence of diastolic dysfunction. No regional wall motion abnormalities noted. Right Ventricle Normal RV size. Normal systolic function. Atria The left atrium is mildly enlarged. Normal right atrium. No doppler evidence for ASD. Mitral Valve There is no mitral annular calcification. Normal mitral valve. Trivial mitral valve insufficiency. Tricuspid Valve Normal tricuspid valve. Trivial tricuspid valve insufficiency. Right ventricular systolic pressure estimated to be 39 mmHg. Aortic Valve Trisinus/trileaflet aortic valve. Mild focal aortic valve thickening. Pulmonic Valve The pulmonic valve is not well visualized. Great Vessels Normal sized aortic root. Pericardium/Pleural No pericardial effusion. Medication 22 gauge I.V. with prn adaptor inserted into right arm. Diluted definity 2.0ml given slow IV push to enhance endocardial definition. MMode/2D Measurements & Calculations LVIDd: 4.7 cm IVSd: 0.59 cm LVOT diam: 2.0 cm LVIDs: 3.2 cm LVPWd: 0.78 cm RVDd: 4.3 cm FS: 32.6 % LVOT area: 3.1 cm2 Ao root diam: 3.3 cm LAV(MOD-bp): 69.1 ml LVAd ap4: 35.5 cm2 LAV(MOD-bp) Indexed: 34.8 ml/m2 EDV(MOD-sp4): 122.4 ml LAV(MOD-sp2): 56.9 ml EDV(sp4-el): 129.0 ml LAV(MOD-sp4): 75.8 ml LVAs ap4: 18.0 cm2 ESV(MOD-sp4): 40.6 ml ESV(sp4-el): 41.7 ml EF(MOD-sp4): 66.8 % EF(sp4-el): 67.7 % SV(MOD-sp4): 81.8 ml SV(sp4-el): 87.3 ml LA A4 area: 23.3 cm2 LA dimension(2D): 3.1 cm RA A4 area: 15.0 cm2 Time Measurements MV dec time: 0.21 sec Doppler Measurements & Calculations MV E max abdiel: 85.9 cm/sec Lat Peak E' Abdiel: 9.0 cm/sec Med Peak E' Abdiel: 6.4 cm/sec MV A max abdiel: 107.1 cm/sec E/E' lat: 9.6 E/E' med: 13.4 MV E/A: 0.80 MV V2 max: 114.5 cm/sec Ao V2 max: 168.2 cm/sec LV V1 max: 108.5 cm/sec MV max P.2 mmHg Ao max P.3 mmHg LV V1 max P.7 mmHg MV V2 mean: 65.5 cm/sec CAMI(V,D): 2.0 cm2 MV mean P.9 mmHg MV V2 VTI: 38.4 cm TR max abdiel: 295.1 cm/sec TR max P.5 mmHg Interpretation Summary The study was technically difficult. Contrast injection was performed. Left ventricular systolic function is normal. The estimated ejection fraction is 65 %. The left atrium is mildly enlarged. Trivial mitral valve insufficiency. Trivial tricuspid valve insufficiency. Mild focal aortic valve thickening. Right ventricular systolic pressure estimated to be 39 mmHg. There is evidence of diastolic dysfunction. Ordering Physician: Siomara Helm Referring Physician: SAUMYA FARIAS Performed By: Christy Santizo, DOROTHY, RVT
== END ==
PROVIDERS: Family Provider Family Medicine; PCP Family Medicine; Referring Provider Nurse Practitioner Acute Care; Visit Provider Nurse Practitioner Acute Care
DX: R06.02 Shortness of breath (principal)
CPT/HCPCS: 93306; Q9957; A4216; C8929

== ENCOUNTER → 2019-07-31 10:03 | Outpatient (CLI) | payer OTHER, SELFPAY ==
[2019-07-31 08:09] VITALS: BMI 35.9
[2019-07-31 10:49] LABS: Absolute Lymphocyte Count 1.18 X10^3/uL (0.83-4.51); Absolute Neutrophil Count 5.7 X10^3/uL (2.0-7.7); Basophil# 0.07 X10^3/uL; Basophil% 0.7 % (0-1); Eosinophils% 21.7 % (0-5); Hematocrit 38.1 % (40-54); Hemoglobin 11.9 g/dL (13.0-16.5); Lymphocyte # 1.18 X10^3/ul (4.0); Lymphocyte % 11.8 % (19-41); Mean Corp Hgb Conc 31.2 g/dL (32-36); Mean Corpuscular Hgb 28.1 pg (27.0-32.0); Mean Corpuscular Volume 90.1 fL (80-94); Mean Platelet Vol. 9.7 fl (6.2-12.0); Monocyte# 0.84 X10^3/uL; Monocyte% 8.4 % (0-10); NRBC Flagged by Analyzer 0 % (0-5); Neutrophil # 5.72 X10^3/uL (2.7-7.7); POSITIVE DIFFERENTIAL YES; Platelet Count 197 K/mm3 (150-450); RBC Distribution Width CV 14.1 % (11.6-14.6); RBC Distribution Width SD 46.9 fl (35.1-43.9); Red Blood Count 4.23 M/mm3 (4.6-6.2)
[2019-07-31 10:51] LABS: Differential Indicated SCAN CRITERIA MET; Eosinophil# 2.18 X10^3/uL
[2019-08-02 16:07] LABS: Alternaria alternata <0.10 kU/L (Class 0); Bluegrass, Kentucky <0.10 kU/L (Class 0); Cat Hair/Dander, Standard <0.10 kU/L (Class 0); D farinae Mite 0.16 kU/L (Class 0/I); D pteronyssinus 0.14 kU/L (Class 0/I); Dog Epithelia <0.10 kU/L (Class 0); Elm, American White 0.12 kU/L (Class 0/I); Oak, White 0.12 kU/L (Class 0/I); Plantain, English 0.15 kU/L (Class 0/I); Ragweed, Short/Common <0.10 kU/L (Class 0)
[2019-08-03 12:07] LABS: Aspirgillus flavus Negative (Neg:<1:1); Aspirgillus fumigatus Negative (Neg:<1:1); Aspirgillus niger Negative (Neg:<1:1)
[2019-08-04 13:02] LABS: Immunoglobulin E 3928 IU/mL (6-495)
[2019-08-04 13:04] LABS: Mouse Urine <0.10 kU/L (Class 0)
== END ==
PROVIDERS: Family Provider Family Medicine; PCP Family Medicine; Referring Provider Nurse Practitioner Acute Care; Visit Provider Nurse Practitioner Acute Care
DX: R05 Cough (principal)
CPT/HCPCS: 36415; 82785; 85025; 86003; 86606

== ENCOUNTER 2019-08-20 09:44 | Outpatient (RCR) | payer OTHER, SELFPAY ==
[2019-07-31 08:09] VITALS: BMI 35.9
[2019-08-20 08:45] VITALS: BMI 35.9
== END 2019-09-05 23:59 ==
LOC: NS 09:44
PROVIDERS: Family Provider Family Medicine; PCP Family Medicine; Referring Provider Nurse Practitioner Acute Care; Visit Provider Nurse Practitioner Acute Care
DX: Z71.3 Dietary counseling and surveillance (principal); I27.20 Pulmonary hypertension, unspecified
CPT/HCPCS: 97802

== ENCOUNTER → 2019-08-21 10:55 | Outpatient (CLI) | payer OTHER, SELFPAY ==
[2019-08-20 08:45] VITALS: BMI 35.9
== END ==
PROVIDERS: Family Provider Family Medicine; PCP Family Medicine; Referring Provider Nurse Practitioner Acute Care; Visit Provider Nurse Practitioner Acute Care
DX: D72.1 Eosinophilia (principal)
CPT/HCPCS: 87177; 87209

== ENCOUNTER → 2019-09-05 14:07 | Outpatient (CLI) | payer SELFPAY, OTHER ==
[2019-09-05 12:49] VITALS: BMI 35.1
--- NOTE | 2019-09-05 14:09 | RAD_ITS ---
STUDY: X-RAY CHEST REASON FOR EXAM: Male, 78 years old. WORSENING SOB -- PT HAS CHF TECHNIQUE: PA and lateral views of the chest. COMPARISON: Prior study of 07/15/2019 FINDINGS: There are prominent interstitial markings of the lung bases appearing similar to the previous study. Right perihilar peribronchial cuffing is noted. There is no demonstrated pleural abnormality. Normal size heart. Normal mediastinum and rishabh. Normal visualized pulmonary arteries. There are calcified plaques of the aortic arch. There are diffuse degenerative changes of the visualized thoracic spine. Normal visualized ribs, clavicles, and shoulders. There is no demonstrated abnormality of the visualized soft tissue structures of the upper abdomen. RAD/Chest PA and Lateral IMPRESSION: Prominent interstitial markings of the lung bases appearing similar to the previous study of 07/15/2019. Right perihilar peribronchial cuffing is noted. There is no evidence of gayle consolidation. Calcified plaques of the aortic arch. Degenerative changes of the thoracic spine. Electronically Signed: Lukasz Johnson MD at 23:23 EST , Service support ,
[2019-09-05 15:09] LABS: ALB/GLOB Ratio 0.6 RATIO (0.9-2.4); AST(SGOT) 20 U/L (15-37); Alanine Aminotransfer ALT/SGPT 25 U/L (16-61); Albumin, Serum 3.2 g/dL (3.2-5.0); Alkaline Phosphatase 75 U/L (45-117); Anion Gap 4 (5-15); BUN 47 mg/dL (7-18); BUN/Creat Ratio 20.3 RATIO (10-20); Calcium,Total 9.2 mg/dL (8.5-10.1); Chloride 99 mmol/L (98-107); Creatinine, Serum 2.31 mg/dL (0.70-1.30); EST Glomerular Filtration Rate 29 mL/min (>60); Est Glom Filt Rate - Afr Amer 36 mL/min (>60); Glucose 82 mg/dL (74-106); Potassium 3.9 mmol/L (3.5-5.1); Protein, Total 8.2 g/dL (6.4-8.2); Sodium Level 136 mmol/L (136-145)
[2019-09-05 15:16] LABS: BNP,B-Type NATRIURETIC PEPTIDE 74.1 pg/mL (0-100)
== END ==
PROVIDERS: PCP Family Medicine; Referring Provider Nurse Practitioner Family; Visit Provider Nurse Practitioner Family
DX: R05 Cough (principal); R06.09 Other forms of dyspnea; I25.10 Atherosclerotic heart disease of native coronary artery without angina pectoris; I42.9 Cardiomyopathy, unspecified; I11.0 Hypertensive heart disease with heart failure; I50.9 Heart failure, unspecified; I48.0 Paroxysmal atrial fibrillation; E78.5 Hyperlipidemia, unspecified; N28.9 Disorder of kidney and ureter, unspecified; Z95.5 Presence of coronary angioplasty implant and graft
CPT/HCPCS: 36415; 71046; 80053; 83880

== ENCOUNTER → 2019-09-16 08:34 | Outpatient (CLI) | payer OTHER, SELFPAY ==
[2019-09-05 12:49] VITALS: BMI 35.1
[2019-09-16 09:25] LABS: Anion Gap 6 (5-15); BUN 41 mg/dL (7-18); BUN/Creat Ratio 17.6 RATIO (10-20); Calcium,Total 9.3 mg/dL (8.5-10.1); Chloride 102 mmol/L (98-107); Creatinine, Serum 2.33 mg/dL (0.70-1.30); EST Glomerular Filtration Rate 29 mL/min (>60); Est Glom Filt Rate - Afr Amer 35 mL/min (>60); Glucose 111 mg/dL (74-106); Potassium 3.9 mmol/L (3.5-5.1); Sodium Level 140 mmol/L (136-145)
== END ==
PROVIDERS: PCP Family Medicine; Referring Provider Internal Medicine Cardiovascular Disease; Visit Provider Internal Medicine Cardiovascular Disease
DX: I25.10 Atherosclerotic heart disease of native coronary artery without angina pectoris (principal); I48.0 Paroxysmal atrial fibrillation; Z95.5 Presence of coronary angioplasty implant and graft
CPT/HCPCS: 36415; 80048

== ENCOUNTER 2019-09-30 09:35 | Outpatient (RCR) | payer OTHER, SELFPAY ==
[2019-09-05 12:49] VITALS: BMI 35.1
[2019-09-23 11:34] VITALS: BMI 35.2
== END 2019-09-30 23:59 | disposition home or self-care (01) ==
LOC: NS 09:35
PROVIDERS: Family Provider Family Medicine; PCP Family Medicine; Referring Provider Nurse Practitioner Acute Care; Visit Provider Nurse Practitioner Acute Care
DX: Z71.3 Dietary counseling and surveillance (principal); I27.20 Pulmonary hypertension, unspecified
CPT/HCPCS: 97803

== ENCOUNTER → 2019-10-07 | Outpatient (CLI) | payer OTHER, SELFPAY ==
[2019-09-23 11:34] VITALS: BMI 35.2
[2019-10-07 12:25] LABS: International Normalized Ratio 1.8; Prothrombin Time (Protime)PT. 20.7 SECONDS (11.7-14.9)
== END | disposition home or self-care (01) ==
LOC: LABSPEC 11:56
PROVIDERS: PCP Family Medicine; Referring Provider Family Medicine; Visit Provider Family Medicine
DX: I48.20 Chronic atrial fibrillation, unspecified (principal)
CPT/HCPCS: 85610

== ENCOUNTER → 2019-11-03 09:23 | Outpatient (CLI) | payer OTHER, SELFPAY ==
[2019-09-23 11:34] VITALS: BMI 35.2
[2019-10-15 15:17] VITALS: BMI 35.9
[2019-11-03 10:30] LABS: Hematocrit 36.5 % (40-54); Hemoglobin 11.3 g/dL (13.0-16.5); Mean Corpuscular Hgb 27.6 pg (27.0-32.0); Platelet Count 175 K/mm3 (150-450); RBC Distribution Width CV 16.1 % (11.6-14.6); RBC Distribution Width SD 51.8 fl (35.1-43.9); White Blood Count 11.6 K/mm3 (4.4-11.0)
[2019-11-03 11:01] LABS: PTHIN 98.9 pg/mL (18.4-80.1)
[2019-11-03 11:04] LABS: Vitamin D,25 Hydroxy 18.8 ng/mL
[2019-11-03 11:12] LABS: AST(SGOT) 22 U/L (15-37); Alanine Aminotransfer ALT/SGPT 40 U/L (16-61); Albumin, Serum 3.3 g/dL (3.2-5.0); Alkaline Phosphatase 57 U/L (45-117); Anion Gap 5 (5-15); BUN 33 mg/dL (7-18); BUN/Creat Ratio 19.9 RATIO (10-20); Bilirubin, Direct 0.09 mg/dL (0.00-0.30); Calcium,Total 8.9 mg/dL (8.5-10.1); Chloride 103 mmol/L (98-107); Creatinine, Serum 1.66 mg/dL (0.70-1.30); EST Glomerular Filtration Rate 43 mL/min (>60); Est Glom Filt Rate - Afr Amer 52 mL/min (>60); Globulin 4.1 g/dL (2.2-4.2); Glucose 82 mg/dL (74-106); Phosphorus 2.6 mg/dL (2.5-4.9); Potassium 3.9 mmol/L (3.5-5.1); Protein, Total 7.4 g/dL (6.4-8.2); Sodium Level 139 mmol/L (136-145); T4 Free Direct 0.94 ng/dL (0.76-1.46); Thyroid Stim Hormone (TSH) 4.72 uIU/mL (0.358-3.74)
== END ==
PROVIDERS: Internal Medicine Cardiovascular Disease; PCP Family Medicine; Referring Provider Internal Medicine Nephrology; Visit Provider Internal Medicine Nephrology
DX: I13.0 Hypertensive heart and chronic kidney disease with heart failure and stage 1 through stage 4 chronic kidney disease, or unspecified chronic kidney disease (principal); I50.22 Chronic systolic (congestive) heart failure; N18.4 Chronic kidney disease, stage 4 (severe); I25.10 Atherosclerotic heart disease of native coronary artery without angina pectoris; I48.0 Paroxysmal atrial fibrillation; I42.9 Cardiomyopathy, unspecified; E78.5 Hyperlipidemia, unspecified; G47.33 Obstructive sleep apnea (adult) (pediatric)
CPT/HCPCS: 36415; 80048; 80076; 82306; 83970; 84100; 84439; 84443; 85027

== ENCOUNTER → 2019-12-16 08:50 | Outpatient (CLI) | payer OTHER, SELFPAY ==
[2019-12-02 14:09] VITALS: BMI 35.7
[2019-12-16 09:50] LABS: T4 Total, Thyroxin 9.6 ug/dL (4.5-12.1); Thyroid Stim Hormone (TSH) 3.46 uIU/mL (0.358-3.74)
== END ==
PROVIDERS: PCP Family Medicine; Referring Provider Internal Medicine Cardiovascular Disease; Visit Provider Internal Medicine Cardiovascular Disease
DX: I25.10 Atherosclerotic heart disease of native coronary artery without angina pectoris (principal); I48.0 Paroxysmal atrial fibrillation; I48.92 Unspecified atrial flutter; I50.9 Heart failure, unspecified; Z79.899 Other long term (current) drug therapy
CPT/HCPCS: 36415; 84436; 84443

== ENCOUNTER → 2020-02-10 08:37 | Outpatient (CLI) | payer OTHER, SELFPAY ==
[2019-09-23 11:34] VITALS: BMI 35.2
[2019-12-02 14:09] VITALS: BMI 35.7
[2020-02-10 09:09] LABS: Hematocrit 36.4 % (40-54); Hemoglobin 10.9 g/dL (13.0-16.5); Mean Corp Hgb Conc 29.9 g/dL (32-36); Mean Corpuscular Hgb 26.6 pg (27.0-32.0); Mean Corpuscular Volume 88.8 fL (80-94); Mean Platelet Vol. 9.6 fl (6.2-12.0); Platelet Count 161 K/mm3 (150-450); RBC Distribution Width CV 15.8 % (11.6-14.6); RBC Distribution Width SD 50.3 fl (35.1-43.9); White Blood Count 9.2 K/mm3 (4.4-11.0)
[2020-02-10 09:31] LABS: Microalbumin,Random Urine 98.6 mg/L (NO RANGE EST.); Microalbumin:Creatinine Ratio 58.7 mg/g CRE (<30 mg/g CRE)
[2020-02-10 09:38] LABS: Albumin, Serum 3.3 g/dL (3.2-5.0); BUN 35 mg/dL (7-18); BUN/Creat Ratio 17.4 RATIO (10-20); Calcium,Total 8.3 mg/dL (8.5-10.1); Chloride 107 mmol/L (98-107); Creatinine, Serum 2.01 mg/dL (0.70-1.30); EST Glomerular Filtration Rate 34 mL/min (>60); Est Glom Filt Rate - Afr Amer 42 mL/min (>60); Ferritin 19 ng/mL (26-388); Glucose 183 mg/dL (74-106); Iron 37 ug/dL (65-175); Iron Binding Capacity,Total 368 ug/dL (250-450); Phosphorus 2.6 mg/dL (2.5-4.9); Potassium 3.8 mmol/L (3.5-5.1); Sodium Level 141 mmol/L (136-145)
[2020-02-10 09:55] LABS: Vitamin D,25 Hydroxy 23.4 ng/mL
== END ==
PROVIDERS: PCP Family Medicine; Referring Provider Internal Medicine Nephrology; Visit Provider Internal Medicine Nephrology
DX: E11.22 Type 2 diabetes mellitus with diabetic chronic kidney disease (principal); N18.4 Chronic kidney disease, stage 4 (severe); D63.1 Anemia in chronic kidney disease; E55.9 Vitamin D deficiency, unspecified
CPT/HCPCS: 36415; 80069; 82043; 82306; 82570; 82728; 83540; 83550; 85027

== ENCOUNTER → 2020-03-15 10:02 | Outpatient (CLI) | payer OTHER, SELFPAY ==
[2020-03-01 10:17] VITALS: BMI 39.7
[2020-03-15 11:05] LABS: Albumin, Serum 3.6 g/dL (3.2-5.0); BUN 26 mg/dL (7-18); BUN/Creat Ratio 14.6 RATIO (10-20); Calcium,Total 8.8 mg/dL (8.5-10.1); Chloride 104 mmol/L (98-107); Creatinine, Serum 1.78 mg/dL (0.70-1.30); EST Glomerular Filtration Rate 40 mL/min (>60); Est Glom Filt Rate - Afr Amer 48 mL/min (>60); Glucose 94 mg/dL (74-106); Phosphorus 2.7 mg/dL (2.5-4.9); Potassium 4.3 mmol/L (3.5-5.1); Sodium Level 140 mmol/L (136-145)
== END ==
PROVIDERS: PCP Family Medicine; Referring Provider Internal Medicine Nephrology; Visit Provider Internal Medicine Nephrology
DX: N17.9 Acute kidney failure, unspecified (principal); D50.9 Iron deficiency anemia, unspecified
CPT/HCPCS: 36415; 80069

== ENCOUNTER → 2020-06-15 07:54 | Outpatient (CLI) | payer OTHER, SELFPAY ==
[2020-03-01 10:17] VITALS: BMI 39.7
[2020-05-18 09:47] VITALS: BMI 40.2
[2020-06-15 08:44] LABS: Hematocrit 42.2 % (40-54); Hemoglobin 13.3 g/dL (13.0-16.5); Mean Corp Hgb Conc 31.5 g/dL (32-36); Mean Corpuscular Hgb 29.3 pg (27.0-32.0); Mean Platelet Vol. 10.4 fl (6.2-12.0); Platelet Count 145 K/mm3 (150-450); RBC Distribution Width CV 14.3 % (11.6-14.6); RBC Distribution Width SD 48.5 fl (35.1-43.9); Red Blood Count 4.54 M/mm3 (4.6-6.2); White Blood Count 9.2 K/mm3 (4.4-11.0)
[2020-06-15 09:00] LABS: Albumin, Serum 3.2 g/dL (3.2-5.0); BUN 33 mg/dL (7-18); BUN/Creat Ratio 20.9 RATIO (10-20); Calcium,Total 8.9 mg/dL (8.5-10.1); Chloride 109 mmol/L (98-107); Creatinine, Serum 1.58 mg/dL (0.70-1.30); EST Glomerular Filtration Rate 45 mL/min (>60); Est Glom Filt Rate - Afr Amer 55 mL/min (>60); Ferritin 71 ng/mL (26-388); Glucose 123 mg/dL (74-106); Iron Binding Capacity,Total 345 ug/dL (250-450); Phosphorus 2.9 mg/dL (2.5-4.9); Potassium 4.1 mmol/L (3.5-5.1); Sodium Level 141 mmol/L (136-145)
== END ==
PROVIDERS: PCP Family Medicine; Referring Provider Internal Medicine Nephrology; Visit Provider Internal Medicine Nephrology
DX: N17.9 Acute kidney failure, unspecified (principal); D50.9 Iron deficiency anemia, unspecified
CPT/HCPCS: 36415; 80069; 82728; 83550; 85027

== ENCOUNTER → 2020-08-12 11:15 | Outpatient (CLI) | payer OTHER, SELFPAY ==
[2020-08-12 10:22] VITALS: BMI 40.4
--- NOTE | 2020-08-12 11:20 | RAD_ITS ---
STUDY: X-RAY CHEST REASON FOR EXAM: Male, 79 years old. Amiodarone therapy, NO CHEST COMPLAINTS TECHNIQUE: PA and lateral views of the chest. COMPARISON: September 05, 2019 chest x-ray FINDINGS: The interstitial markings are mildly prominent fairly similar to the recent prior study. It is improved since July 15, 2019 There is no demonstrated pleural abnormality. Normal size heart. Normal mediastinum and rishabh. Normal visualized pulmonary arteries. There is atherosclerotic calcification of the aortic arch with tortuosity. There are diffuse degenerative changes of the visualized thoracic spine. Normal visualized ribs, clavicles, and shoulders. There is a visualized calcific density or rib calcification projected over the left hemidiaphragm. RAD/Chest PA and Lateral IMPRESSION: Degenerative changes, as described above. No demonstrated acute cardiopulmonary process. Electronically Signed: Paula Flynn MD at 2:41 EST Tel , Service support ,
[2020-08-12 13:21] LABS: AST(SGOT) 41 U/L (15-37); Alanine Aminotransfer ALT/SGPT 39 U/L (16-61); Albumin, Serum 3.5 g/dL (3.2-5.0); Alkaline Phosphatase 71 U/L (45-117); Bilirubin, Direct 0.09 mg/dL (0.00-0.30); Globulin 4.1 g/dL (2.2-4.2); Protein, Total 7.6 g/dL (6.4-8.2); T4 Free Direct 1.26 ng/dL (0.76-1.46); Thyroid Stim Hormone (TSH) 3.44 uIU/mL (0.358-3.74)
== END ==
PROVIDERS: PCP Family Medicine; Referring Provider Internal Medicine Cardiovascular Disease; Visit Provider Internal Medicine Cardiovascular Disease
DX: I25.10 Atherosclerotic heart disease of native coronary artery without angina pectoris (principal); I11.0 Hypertensive heart disease with heart failure; I50.22 Chronic systolic (congestive) heart failure; I42.9 Cardiomyopathy, unspecified; I48.91 Unspecified atrial fibrillation; I48.92 Unspecified atrial flutter; E78.00 Pure hypercholesterolemia, unspecified; Z95.5 Presence of coronary angioplasty implant and graft; Z79.899 Other long term (current) drug therapy
CPT/HCPCS: 36415; 71046; 80076; 84439; 84443

== ENCOUNTER → 2021-02-23 09:45 | Outpatient (CLI) | payer OTHER, SELFPAY ==
[2020-05-18 09:47] VITALS: BMI 40.2
[2020-11-16 10:23] VITALS: BMI 40.8
[2021-02-23 10:30] LABS: Hematocrit 43.6 % (40-54); Hemoglobin 14.3 g/dL (13.0-16.5); Mean Corp Hgb Conc 32.8 g/dL (32-36); Mean Corpuscular Hgb 30.8 pg (27.0-32.0); Platelet Count 167 K/mm3 (150-450); RBC Distribution Width CV 13.4 % (11.6-14.6); RBC Distribution Width SD 46.3 fl (35.1-43.9); Red Blood Count 4.64 M/mm3 (4.6-6.2); White Blood Count 10.5 K/mm3 (4.4-11.0)
[2021-02-23 10:35] LABS: Protein, Urine (Random) 8.1 mg/dL (<11.9); Protein:Creat Ratio 333 mg/g CRE (0-200)
[2021-02-23 10:55] LABS: Albumin, Serum 3.6 g/dL (3.2-5.0); BUN 35 mg/dL (7-18); BUN/Creat Ratio 20.7 RATIO (10-20); Chloride 105 mmol/L (98-107); Creatinine, Serum 1.69 mg/dL (0.70-1.30); EST Glomerular Filtration Rate 42 mL/min (>60); Est Glom Filt Rate - Afr Amer 51 mL/min (>60); Glucose 141 mg/dL (74-106); Phosphorus 2.9 mg/dL (2.5-4.9); Potassium 4.5 mmol/L (3.5-5.1); Sodium Level 138 mmol/L (136-145)
== END ==
PROVIDERS: PCP Family Medicine; Referring Provider Internal Medicine Nephrology; Visit Provider Internal Medicine Nephrology
DX: E11.22 Type 2 diabetes mellitus with diabetic chronic kidney disease (principal); N18.32 Chronic kidney disease, stage 3b; D50.9 Iron deficiency anemia, unspecified
CPT/HCPCS: 36415; 80069; 82570; 83970; 84156; 85027

== ENCOUNTER 2021-11-01 10:06 | Outpatient (CLI) | payer OTHER, SELFPAY ==
[2021-03-03 09:52] VITALS: BMI 40.7
[2021-11-01 10:54] LABS: Hematocrit 46.1 % (40-54); Mean Corp Hgb Conc 34.7 g/dL (32-36); Mean Corpuscular Hgb 31.1 pg (27.0-32.0); Mean Corpuscular Volume 89.5 fL (80-94); Mean Platelet Vol. 9.9 fl (6.2-12.0); Platelet Count 166 K/mm3 (150-450); RBC Distribution Width CV 13.8 % (11.6-14.6); RBC Distribution Width SD 45.1 fl (35.1-43.9); Red Blood Count 5.15 M/mm3 (4.6-6.2); White Blood Count 13.3 K/mm3 (4.4-11.0)
[2021-11-01 11:03] LABS: Protein, Urine (Random) 95.3 mg/dL (<11.9); Protein:Creat Ratio 859 mg/g CRE (0-200)
[2021-11-01 11:16] LABS: Albumin, Serum 3.3 g/dL (3.2-5.0); BUN 33 mg/dL (7-18); BUN/Creat Ratio 20.4 RATIO (10-20); Calcium,Total 9.3 mg/dL (8.5-10.1); Chloride 105 mmol/L (98-107); Creatinine, Serum 1.62 mg/dL (0.70-1.30); EST Glomerular Filtration Rate 44 mL/min (>60); Est Glom Filt Rate - Afr Amer 53 mL/min (>60); Glucose 202 mg/dL (74-106); Potassium 4.4 mmol/L (3.5-5.1); Sodium Level 135 mmol/L (136-145)
[2021-11-01 11:35] LABS: PTHIN 116.4 pg/mL (18.4-80.1)
== END 2021-11-01 23:59 | disposition home or self-care (01) ==
PROVIDERS: PCP Family Medicine; Referring Provider Internal Medicine Nephrology; Visit Provider Internal Medicine Nephrology
DX: E11.22 Type 2 diabetes mellitus with diabetic chronic kidney disease (principal); N18.32 Chronic kidney disease, stage 3b
CPT/HCPCS: 36415; 80069; 82570; 83970; 84156; 85027

== ENCOUNTER → 2021-12-01 | Outpatient (CLI) | payer OTHER, SELFPAY ==
[2021-12-01 10:31] LABS: Anion Gap 5 (5-15); BUN 39 mg/dL (7-18); Calcium,Total 8.8 mg/dL (8.5-10.1); Chloride 103 mmol/L (98-107); EST Glomerular Filtration Rate 29 mL/min (>60); Est Glom Filt Rate - Afr Amer 35 mL/min (>60); Glucose 233 mg/dL (74-106); Potassium 4.2 mmol/L (3.5-5.1); Sodium Level 137 mmol/L (136-145)
== END | disposition home or self-care (01) ==
LOC: LAB 09:17
PROVIDERS: PCP Family Medicine; Referring Provider Internal Medicine Nephrology; Visit Provider Internal Medicine Nephrology
DX: E11.22 Type 2 diabetes mellitus with diabetic chronic kidney disease (principal); N18.9 Chronic kidney disease, unspecified
CPT/HCPCS: 36415; 80048

== ENCOUNTER → 2021-12-20 | Outpatient (CLI) | payer OTHER, SELFPAY ==
[2021-12-20 10:46] LABS: Albumin, Serum 3.3 g/dL (3.2-5.0); BUN 28 mg/dL (7-18); BUN/Creat Ratio 17.7 RATIO (10-20); Calcium,Total 8.9 mg/dL (8.5-10.1); Chloride 105 mmol/L (98-107); Creatinine, Serum 1.58 mg/dL (0.70-1.30); EST Glomerular Filtration Rate 45 mL/min (>60); Est Glom Filt Rate - Afr Amer 55 mL/min (>60); Glucose 200 mg/dL (74-106); Phosphorus 2.4 mg/dL (2.5-4.9); Potassium 4.1 mmol/L (3.5-5.1); Sodium Level 138 mmol/L (136-145)
== END | disposition home or self-care (01) ==
LOC: LAB 09:27
PROVIDERS: PCP Family Medicine; Referring Provider Internal Medicine Nephrology; Visit Provider Internal Medicine Nephrology
DX: N18.32 Chronic kidney disease, stage 3b (principal)
CPT/HCPCS: 36415; 80069

== ENCOUNTER → 2022-02-27 | Outpatient (CLI) | payer SELFPAY, OTHER ==
--- NOTE | 2022-02-27 11:14 | RAD_ITS ---
STUDY: X-RAY CHEST REASON FOR EXAM: Male, 81 years old. Shortness ob breath TECHNIQUE: PA and lateral views of the chest. COMPARISON: Comparison is made with prior study dated 08/12/2020. FINDINGS: Hyperinflation. Stable mild increased markings at the lung bases suggestive of scarring. There is no demonstrated pleural abnormality. Normal size heart. Normal mediastinum and rishabh. Normal visualized pulmonary arteries. There is atherosclerotic calcification of the aortic arch with tortuosity. There are diffuse degenerative changes of the visualized thoracic spine. Normal visualized ribs, clavicles, and shoulders. 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 RAD/Chest PA and Lateral IMPRESSION: Stable increased markings at the lung bases suggestive of scarring. Electronically Signed: Bacilio Mitchell MD at 14:15 EDT ,
== END | disposition home or self-care (01) ==
PROVIDERS: PCP Family Medicine; Visit Provider Internal Medicine Cardiovascular Disease
DX: R06.02 Shortness of breath (principal); I48.0 Paroxysmal atrial fibrillation; I10 Essential (primary) hypertension; E78.5 Hyperlipidemia, unspecified; I25.10 Atherosclerotic heart disease of native coronary artery without angina pectoris; Z95.5 Presence of coronary angioplasty implant and graft
CPT/HCPCS: 71046

== ENCOUNTER → 2022-03-15 | Outpatient (CLI) | payer SELFPAY, OTHER ==
--- NOTE | 2022-03-15 10:10 | ECHOCS_ITS ---
Reason For Study: CAD/ASHD Procedure This was a 2D Doppler, Color Flow transthoracic echocardiogram. The study was technically difficult. Contrast injection was performed. Exam performed in department. Left Ventricle Based upon the 2D echocardiographic and contrast enhanced images obtained there appears to be grossly normal left ventricular size, wall motion, and systolic function. The estimated ejection fraction is 70 %. There is evidence of diastolic dysfunction. Right Ventricle Normal RV size. Normal systolic function. Atria The left atrium is mildly enlarged. Normal right atrium. No doppler evidence for ASD. Mitral Valve There is no mitral annular calcification. Normal mitral valve. Mild (1+) mitral valve insufficiency. Tricuspid Valve Normal tricuspid valve. Trivial tricuspid valve insufficiency. Right ventricular systolic pressure estimated to be 39 mmHg. Aortic Valve Trisinus/trileaflet aortic valve. Mild focal aortic valve thickening. Pulmonic Valve The pulmonic valve is not well visualized. Great Vessels Normal sized aortic root. Pericardium/Pleural No pericardial effusion. Medication 22 gauge I.V. with prn adaptor inserted into right arm. Diluted definity 1.5ml given slow IV push to enhance endocardial definition. MMode/2D Measurements & Calculations RVDd: 3.2 cm Ao root diam: 3.1 cm LAV(MOD-sp4): 55.5 ml LVAd ap4: 39.5 cm2 SV(MOD-sp4): 112.1 ml SV(sp4-el): 116.9 ml LVLd ap4: 8.4 cm EDV(MOD-sp4): 152.6 ml EDV(sp4-el): 158.4 ml LVAs ap4: 18.3 cm2 LVLs ap4: 6.8 cm ESV(MOD-sp4): 40.5 ml ESV(sp4-el): 41.5 ml EF(MOD-sp4): 73.4 % EF(sp4-el): 73.8 % LA A4 area: 19.4 cm2 LA dimension(2D): 3.8 cm RA A4 area: 12.3 cm2 Time Measurements MV dec time: 0.19 sec Doppler Measurements & Calculations MV E max abdiel: 97.5 cm/sec Lat Peak E' Abdiel: 11.1 cm/sec Med Peak E' Abdiel: 5.6 cm/sec MV A max abdiel: 99.9 cm/sec E/E' lat: 8.8 E/E' med: 17.3 MV E/A: 0.98 MV V2 max: 104.0 cm/sec Ao V2 max: 125.4 cm/sec MV max P.3 mmHg MV dec slope: 521.1 cm/sec2 Ao max P.3 mmHg MV V2 mean: 52.9 cm/sec Ao V2 mean: 88.7 cm/sec MV mean P.4 mmHg Ao mean P.6 mmHg MV V2 VTI: 38.3 cm Ao V2 VTI: 34.8 cm LV V1 max: 99.7 cm/sec PA V2 max: 94.2 cm/sec TR max abdiel: 300.1 cm/sec LV V1 max P.0 mmHg TR max P.0 mmHg LV V1 mean P.0 mmHg LV V1 mean: 65.5 cm/sec LV V1 VTI: 25.1 cm ECHO/Echo Complete W/ Contrast Interpretation Summary The study was technically difficult. Contrast injection was performed. Based upon the 2D echocardiographic and contrast enhanced images obtained there appears to be grossly normal left ventricular size, wall motion, and systolic function. The estimated ejection fraction is 70 %. The left atrium is mildly enlarged. Mild (1+) mitral valve insufficiency. Mild focal aortic valve thickening. Right ventricular systolic pressure estimated to be 39 mmHg. There is evidence of diastolic dysfunction. Ordering Physician: Kulwant Godoy Referring Physician: MD Aman Eric Performed By: Mary Ramirez RCS
[2022-03-15 12:54] LABS: Albumin, Serum 3.4 g/dL (3.2-5.0); BUN 38 mg/dL (7-18); BUN/Creat Ratio 21.1 RATIO (10-20); Calcium,Total 9.2 mg/dL (8.5-10.1); Chloride 106 mmol/L (98-107); EST Glomerular Filtration Rate 39 mL/min (>60); Est Glom Filt Rate - Afr Amer 47 mL/min (>60); Glucose 156 mg/dL (74-106); Phosphorus 2.6 mg/dL (2.5-4.9); Potassium 3.9 mmol/L (3.5-5.1); Sodium Level 140 mmol/L (136-145)
[2022-03-15 12:58] LABS: Protein, Urine (Random) 35.1 mg/dL (<11.9); Protein:Creat Ratio 356 mg/g CRE (0-200)
== END | disposition home or self-care (01) ==
PROVIDERS: PCP Family Medicine; Visit Provider Internal Medicine Cardiovascular Disease
DX: I25.10 Atherosclerotic heart disease of native coronary artery without angina pectoris (principal); E11.22 Type 2 diabetes mellitus with diabetic chronic kidney disease; N18.32 Chronic kidney disease, stage 3b; Z95.5 Presence of coronary angioplasty implant and graft
CPT/HCPCS: 36415; 80069; 82570; 84156; 93306; Q9957; A4216; C8929

== ENCOUNTER → 2022-04-12 | Outpatient (CLI) | payer OTHER, SELFPAY ==
[2022-04-12 10:13] LABS: Albumin, Serum 3.3 g/dL (3.2-5.0); BUN 37 mg/dL (7-18); Calcium,Total 9.5 mg/dL (8.5-10.1); Chloride 103 mmol/L (98-107); Creatinine, Serum 1.85 mg/dL (0.70-1.30); EST Glomerular Filtration Rate 38 mL/min (>60); Est Glom Filt Rate - Afr Amer 46 mL/min (>60); Glucose 197 mg/dL (74-106); Phosphorus 2.9 mg/dL (2.5-4.9); Potassium 4.2 mmol/L (3.5-5.1); Sodium Level 139 mmol/L (136-145)
== END | disposition home or self-care (01) ==
LOC: LAB 08:20
PROVIDERS: PCP Family Medicine; Referring Provider Internal Medicine Nephrology; Visit Provider Internal Medicine Nephrology
DX: N17.9 Acute kidney failure, unspecified (principal); N18.32 Chronic kidney disease, stage 3b
CPT/HCPCS: 36415; 80069

== ENCOUNTER → 2022-06-02 | Outpatient (CLI) | payer OTHER, SELFPAY ==
[2022-06-02 16:29] LABS: Anion Gap 6 (5-15); BNP,B-Type NATRIURETIC PEPTIDE 197.9 pg/mL (0-100); BUN 43 mg/dL (7-18); BUN/Creat Ratio 22.1 RATIO (10-20); Calcium,Total 9.4 mg/dL (8.5-10.1); Chloride 104 mmol/L (98-107); Creatinine, Serum 1.95 mg/dL (0.70-1.30); EST Glomerular Filtration Rate 35 mL/min (>60); Est Glom Filt Rate - Afr Amer 43 mL/min (>60); Glucose 222 mg/dL (74-106); Potassium 5.1 mmol/L (3.5-5.1); Sodium Level 138 mmol/L (136-145)
== END | disposition home or self-care (01) ==
LOC: LAB 15:00
PROVIDERS: PCP Family Medicine; Visit Provider Nurse Practitioner Gerontology
DX: R06.09 Other forms of dyspnea (principal)
CPT/HCPCS: 36415; 80048; 83880

== ENCOUNTER → 2022-06-12 | Outpatient (CLI) | payer OTHER, SELFPAY ==
[2022-06-12 10:06] LABS: Albumin, Serum 3.5 g/dL (3.2-5.0); BUN 38 mg/dL (7-18); Calcium,Total 9.3 mg/dL (8.5-10.1); Chloride 104 mmol/L (98-107); Creatinine, Serum 2.11 mg/dL (0.70-1.30); EST Glomerular Filtration Rate 32 mL/min (>60); Est Glom Filt Rate - Afr Amer 39 mL/min (>60); Glucose 170 mg/dL (74-106); Phosphorus 3.5 mg/dL (2.5-4.9); Potassium 4.1 mmol/L (3.5-5.1); Sodium Level 138 mmol/L (136-145)
== END | disposition home or self-care (01) ==
LOC: LAB 09:01
PROVIDERS: Nurse Practitioner Gerontology; PCP Family Medicine; Visit Provider Internal Medicine Nephrology
DX: N17.9 Acute kidney failure, unspecified (principal); N18.32 Chronic kidney disease, stage 3b
CPT/HCPCS: 36415; 80069

== ENCOUNTER → 2022-06-22 | Outpatient (CLI) | payer OTHER, SELFPAY ==
[2022-06-22 10:45] LABS: Anion Gap 8 (5-15); BUN 46 mg/dL (7-18); BUN/Creat Ratio 22.7 RATIO (10-20); Calcium,Total 9.8 mg/dL (8.5-10.1); Chloride 103 mmol/L (98-107); Creatinine, Serum 2.03 mg/dL (0.70-1.30); EST Glomerular Filtration Rate 34 mL/min (>60); Est Glom Filt Rate - Afr Amer 41 mL/min (>60); Glucose 211 mg/dL (74-106); Potassium 4.7 mmol/L (3.5-5.1); Sodium Level 138 mmol/L (136-145)
== END | disposition home or self-care (01) ==
LOC: LAB 09:42
PROVIDERS: PCP Family Medicine; Referring Provider Nurse Practitioner Gerontology; Visit Provider Nurse Practitioner Gerontology
DX: N28.9 Disorder of kidney and ureter, unspecified (principal)
CPT/HCPCS: 36415; 80048

== ENCOUNTER → 2022-07-04 | Outpatient (CLI) | payer OTHER, SELFPAY ==
[2022-07-04 09:27] LABS: Anion Gap 7 (5-15); BUN 42 mg/dL (7-18); BUN/Creat Ratio 17.9 RATIO (10-20); Calcium,Total 9.7 mg/dL (8.5-10.1); Chloride 103 mmol/L (98-107); Creatinine, Serum 2.34 mg/dL (0.70-1.30); EST Glomerular Filtration Rate 29 mL/min (>60); Est Glom Filt Rate - Afr Amer 35 mL/min (>60); Glucose 136 mg/dL (74-106); Potassium 4.3 mmol/L (3.5-5.1); Sodium Level 139 mmol/L (136-145)
== END | disposition home or self-care (01) ==
LOC: LAB 08:16
PROVIDERS: PCP Family Medicine; Referring Provider Nurse Practitioner Gerontology; Visit Provider Nurse Practitioner Gerontology
DX: R06.09 Other forms of dyspnea (principal)
CPT/HCPCS: 36415; 80048

== ENCOUNTER 2022-07-26 12:00 | Outpatient (RCR) | payer SELFPAY, OTHER ==
--- NOTE | 2022-07-18 10:37 | HP.PTEVAL_ITS ---
Patient's Visit Information JOSE A STEIN is a 81 year old M referred to Physical Therapy by Dr. Eric Newton MD with a diagnosis of Lumbar Pain. Date of Evaluation: 07/18/22 Physical Therapist: Ksenia Arenas DPT - Visit Plan Frequency: 2x /Week Duration: 4 Weeks Plan: 2x2 then 1x4- Focus on LE and core strength/stabilization- teach HEP. HEP Given IE: Postural Correction, TA contraction, hamstring stretch, glut sets, hip adduction - Subjective Patient reports that he hurts on the right side of his back and it radiates to the anterior belt line and mid back- insidous onset. This has been going on three months-but he has had problems with his back on/off for years. He has left sided back pain too but Dr. Fabian gave him an injection 2 weeks- that was the first round. He had one day that was really good but then he had pain a gain. He is taking muscle relaxers and suave and is now taking Joice. He did cardiac rehab in [id number] and he has a TM, Nustep and Bike that he can use but does use it now. Once in while he does have leg symptoms-he reports the pain is dull and achy. He feels that his back gets very tired when he stands. He does use a cane inside and community distances. Best: 0/10 Eases: heat and sitting down with legs elevated. Agg: lifting, standing, sitting in a folding chair. Worst: 8/10- No N/T in the toes. Does take stool softner due to pain medications. He has had x-rays at [facility]- which showed a lot of OA-He also plans to go see Dr. Wall for a consult. Sleep: in a recliner and he has no pain at night. He has lost a lot of weight due to a new medication and his reports she thinks its water. He use to be more active- but has slowed down in the past few years. He is currently sitting most of his days and reads. He does stairs non recip with a single handrail- doesn't have to go up/down PMHx/Meds: no changes since cardiology visit- with the exception of Joice - Objective Posture: poor in sitting and standing- FH -RS- decreased lordosis of the lumbar spine. HR/TR: able without pain- does use UE A. Balance: weight shift but does not SLS. Gait: increased STEPHANIA- straight cane- toes into ER-SOB with ambulation >100 feet. Sensation: WFL to gross touch bilateral LE. ROM: Lumbar: Flexion: hands to mid ho. Extn: neutral, SB: limited by 50%, Rot: WFL- no pain with ROM, Hip/Ankle/Knee: WFL. Strength: Core: poor, Hip: Flexion: 3+/5, Abd/Add: 4+/5, Extn: 4/5, IR/ER:3+/5, Knee: 5/5 Ankle: 5/5. Flex: HS: moderate Gastroc: moderate. Transfers: sit to stand requires UE A- sit to supine and back: moderate A and reports pain - Special Tests L/S Slump test left side: Positive L/S Slump test right side: Positive L/S Left Straight Leg Raise: Positive L/S Right Straight Leg Raise: Positive R Hip VIOLA - Intraarticular Pathology: Positive R Hip FADDIR - Labrum: Positive L Hip VIOLA - Intraarticular Pathology: Positive L Hip FADDIR - Labrum: Positive - Balance/Special Test Scores Oswestry Low Back Score: 22 - Goals Goal 1:: Patient will be I with HEP and progression Goal Time Frame: 4-6 Weeks Goal 2:: Patient will maintain proper posture t/o tx session to demo increased core s/s Goal Time Frame: 4-6 Weeks Goal 3:: Patient will report ability to stand for more than 5 min without inc ss Goal Time Frame: 4-6 Weeks Goal 4:: Patient will report 80% improvement Goal Time Frame: 4-6 Weeks - Rehabilitation Potential Physical Therapy Diagnosis: Patient presents with hypomobility- he has decrease LE and core strength/stabilization, flex and muscular endurance leading to poor posture and increased pain with ADL's. Rehabilitation Potential: Good - Anticipated Interventions Patient/Client Instruction: Educate patient on: Benefits of Fitness Program Therapeutic Exercise to Include: Strength training, Endurance training, Balance training, Coordination, Agility training, Body mechanics, Postural training, Flexibilty training, Gait and locomotor training, Neuromotor development, Dynamic Lumbar Stabilization, Scapular Strength/Stabilization For the Purpose of:: To improve muscle performance and motor function Thank you for the opportunity to evaluate your patient. For Medicare and Medicare HMO plans, please review the plan of care and approve it. It will need to be FAXED BACK to us at [phone] for Medicare purposes. For Medicare only, by signing this I certify the plan of care. Please let me know if there are questions or concerns regarding this plan of care. Physician Signature: Date:
--- NOTE | 2022-10-30 07:54 | HP.PT.NRP ---
JOSE A STEIN was seen in my office for initial evaluation on 07/18/22. The following Plan of Care was established for this patient: Initial Frequency: 2x /Week Initial Duration: 4 Weeks Patient/Client Instruction: Educate patient on: Benefits of Fitness Program Therapeutic Exercise to Include: Strength training, Endurance training, Balance training, Coordination, Agility training, Body mechanics, Postural training, Flexibilty training, Gait and locomotor training, Neuromotor development, Dynamic Lumbar Stabilization, Scapular Strength/Stabilization For the Purpose of:: To improve muscle performance and motor function This patient was last seen in our office . Pertinent comments regarding their Physical therapy will appear below: Patient has not attended PT in over 30 days- appropriate to be d/c from PT and return to MD as appropriate At this point I will be discontinuing this patient from physical therapy. I would be happy to see this patient again in the future if found appropriate by the physician. Thank you! Ksenia Arenas, DPT Balance/Gait/Functional tests - Balance/Special Test Scores Oswestry Low Back Score: 22
== END 2022-07-26 19:00 | disposition home or self-care (01) ==
LOC: PT 12:00
PROVIDERS: PCP Family Medicine; Referring Provider Family Medicine; Visit Provider Family Medicine
DX: M54.50 Low back pain, unspecified (principal)
CPT/HCPCS: 97110; 97162

== ENCOUNTER → 2022-07-26 | Outpatient (CLI) | payer OTHER, SELFPAY ==
[2022-07-26 13:56] LABS: Anion Gap 11 (5-15); BUN 47 mg/dL (7-18); BUN/Creat Ratio 17.9 RATIO (10-20); Calcium,Total 9.2 mg/dL (8.5-10.1); Chloride 102 mmol/L (98-107); Creatinine, Serum 2.62 mg/dL (0.70-1.30); EST Glomerular Filtration Rate 25 mL/min (>60); Est Glom Filt Rate - Afr Amer 30 mL/min (>60); Glucose 176 mg/dL (74-106); Potassium 4.4 mmol/L (3.5-5.1); Sodium Level 136 mmol/L (136-145)
== END | disposition home or self-care (01) ==
LOC: LAB 13:01
PROVIDERS: PCP Family Medicine; Referring Provider Nurse Practitioner Gerontology; Visit Provider Nurse Practitioner Gerontology
DX: R06.09 Other forms of dyspnea (principal)
CPT/HCPCS: 36415; 80048

== ENCOUNTER → 2022-08-04 | Outpatient (CLI) | payer SELFPAY, OTHER ==
--- NOTE | 2022-08-04 15:40 | MRI_ITS ---
PROCEDURE: LUMBAR SPINE MRI WITHOUT CONTRAST COMPARISONS: None CLINICAL INDICATION: LOW BACK PAIN, LEFT RADICULOPATHY TECHNIQUE: Noncontrast lumbosacral spine MRI study was performed multiple sequences in sagittal and axial planes. FINDINGS: L1 compression deformity with edema. L2 and L3 compression deformities without edema. L4 and L5 compression deformities with edema. Straightening of the typical cervical lordosis without significant spondylolisthesis. Normal partially visualized sacroiliac joints. The conus medullaris terminates at the level of L1 to. No abnormal signal within the visualized cord. L1-L2: Disc bulge. Normal spinal canal and neuroforamina. L2-L3: Disc bulge and facet arthrosis with crowding of the traversing L3 nerve roots in the lateral recesses sees. Mild to moderate spinal canal stenosis with CSF effacement. No significant neural foraminal stenosis. L3-L4: Disc bulge and facet arthrosis with impingement upon the traversing L4 nerve root in the lateral recess stenoses. Moderate spinal canal stenosis with CSF effacement. Mild left neural foraminal stenosis. L4-L5: Disc bulge and facet arthrosis with crowding of the traversing L5 nerve roots in the lateral recesses. No significant spinal canal or neural foraminal stenosis. L5-S1: Normal disc height and morphology. No significant spinal canal or neural foraminal stenosis. Paraspinous muscle fatty infiltration. MRI/Spine Lumbar (Routine) IMPRESSION: 1. Compression deformities with edema at L1, L4, L5 may be excluded. No osseous retropulsion. 2. Disc bulges at all levels. There is moderate spinal canal stenosis with CSF effacement and impingement upon the traversing L4 nerve roots at L3-4. 3. There is mild to moderate spinal canal stenosis at L2-3. 4. Mild left neural foraminal stenosis at L3-4. Electronically Signed: Kulwant Gonzalez MD at 17:49 EST ,
[2022-08-04 17:56] LABS: Anion Gap 9 (5-15); BUN 43 mg/dL (7-18); BUN/Creat Ratio 21.5 RATIO (10-20); Calcium,Total 8.9 mg/dL (8.5-10.1); Chloride 110 mmol/L (98-107); EST Glomerular Filtration Rate 34 mL/min (>60); Est Glom Filt Rate - Afr Amer 42 mL/min (>60); Glucose 165 mg/dL (74-106); Potassium 4.9 mmol/L (3.5-5.1); Sodium Level 138 mmol/L (136-145)
== END | disposition home or self-care (01) ==
PROVIDERS: Nurse Practitioner Gerontology; PCP Family Medicine; Referring Provider Anesthesiology Pain Medicine; Visit Provider Anesthesiology Pain Medicine
DX: M54.16 Radiculopathy, lumbar region (principal)
CPT/HCPCS: 36415; 72148; 80048

== ENCOUNTER → 2022-08-24 | Outpatient (CLI) | payer OTHER, SELFPAY ==
[2022-08-24 11:30] LABS: Anion Gap 6 (5-15); BUN 36 mg/dL (7-18); BUN/Creat Ratio 20.2 RATIO (10-20); Calcium,Total 9.4 mg/dL (8.5-10.1); Chloride 105 mmol/L (98-107); Creatinine, Serum 1.78 mg/dL (0.70-1.30); EST Glomerular Filtration Rate 39 mL/min (>60); Est Glom Filt Rate - Afr Amer 48 mL/min (>60); Glucose 167 mg/dL (74-106); Potassium 3.7 mmol/L (3.5-5.1); Sodium Level 139 mmol/L (136-145)
== END | disposition home or self-care (01) ==
LOC: LAB 10:43
PROVIDERS: PCP Family Medicine; Visit Provider Nurse Practitioner Gerontology
DX: R06.09 Other forms of dyspnea (principal)
CPT/HCPCS: 36415; 80048

== ENCOUNTER 2022-09-06 19:58 | Emergency (ER) | payer OTHER, SELFPAY ==
[2022-09-06 19:59] VITALS: BP 97/48; PULSE 113; RESP 18; TEMP 37.1; O2SAT 95; BMI 36.2
[2022-09-06 20:34] VITALS: BP 163/69
[2022-09-06] MEDS: 0.9% Normal Saline 1,000 ML 1000 ML IV (20:52)
[2022-09-06 21:02] LABS: Absolute Lymphocyte Count 0.45 X10^3/uL (0.83-4.51); Absolute Neutrophil Count 3.7 X10^3/uL (2.0-7.7); Basophil# 0.02 X10^3/uL; Basophil% 0.4 % (0-1); Hematocrit 45.3 % (40-54); Hemoglobin 14.9 g/dL (13.0-16.5); Lymphocyte # 0.45 X10^3/ul (0.83-4.51); Lymphocyte % 9.7 % (19-41); Mean Corp Hgb Conc 32.9 g/dL (32-36); Mean Corpuscular Hgb 30.2 pg (27.0-32.0); Mean Corpuscular Volume 91.9 fL (80-94); Mean Platelet Vol. 9.4 fl (6.2-12.0); Monocyte# 0.45 X10^3/uL; Monocyte% 9.7 % (0-10); NRBC Flagged by Analyzer 0 % (0-5); Neutrophil # 3.72 X10^3/uL (2.7-7.7); POSITIVE DIFFERENTIAL YES; Platelet Count 136 K/mm3 (150-450); RBC Distribution Width CV 14.2 % (11.6-14.6); RBC Distribution Width SD 48.2 fl (35.1-43.9); Red Blood Count 4.93 M/mm3 (4.6-6.2); White Blood Count 4.7 K/mm3 (4.4-11.0)
[2022-09-06 21:13] LABS: Differential Indicated SCAN CRITERIA MET
[2022-09-06 21:17] LABS: International Normalized Ratio 2.6; Prothrombin Time (Protime)PT. 27.3 SECONDS (11.7-14.9)
[2022-09-06 21:19] LABS: ALB/GLOB Ratio 0.9 RATIO (0.9-2.4); AST(SGOT) 17 U/L (15-37); Alanine Aminotransfer ALT/SGPT 30 U/L (16-61); Albumin, Serum 3.1 g/dL (3.2-5.0); Alkaline Phosphatase 82 U/L (45-117); Anion Gap 11 (5-15); BUN 36 mg/dL (7-18); BUN/Creat Ratio 16.9 RATIO (10-20); Chloride 104 mmol/L (98-107); Creatinine, Serum 2.13 mg/dL (0.70-1.30); EST Glomerular Filtration Rate 32 mL/min (>60); Est Glom Filt Rate - Afr Amer 39 mL/min (>60); Estimated Creatinine Clearance 24.46 ml/min; Globulin 3.3 g/dL (2.2-4.2); Glucose 202 mg/dL (74-106); Potassium 4.3 mmol/L (3.5-5.1); Protein, Total 6.4 g/dL (6.4-8.2); Sodium Level 141 mmol/L (136-145)
--- NOTE | 2022-09-06 21:39 | EX.ED.DYSGE1 ---
HPI History of Present Illness Chief Complaint: Cellulitis Narrative Narrative: 81-year-old male presenting with his family with cellulitis on the left lower leg. Patient was seen by his primary care physician earlier today and had 1 dose of clindamycin which was given to him in a prescription. The cellulitic area on the patient's leg was outlined and has remained within the outline. Patient does not have systemic signs or symptoms such as fevers, chills, rigors. 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 Long-term use of high-risk medication Lung nodule Paroxysmal A-fib Presence of stent in coronary artery (~07/04/18) Renal insufficiency Restrictive airway disease Home Medications aspirin 81 mg chewable tablet 81 mg PO DAILY@0800 health maintenance 07/02/18 [History Last Taken 04/24/19] omeprazole 20 mg capsule,delayed release 20 mg PO DAILY gerd 07/02/18 [History Last Taken 05/07/19] atorvastatin 40 mg tablet 40 mg PO QHS #30 tabs 07/29/18 [Rx Last Taken Unknown] lorazepam 0.5 mg tablet 0.5 mg PO QD-BID PRN Anxiety 07/29/18 [History Last Taken 05/07/19] warfarin 4 mg tablet 2 mg PO .COMPLEX 09/18/18 [History Last Taken 04/24/19] cetirizine 10 mg capsule 10 mg PO HS #30 caps 08/20/19 [Rx Last Taken Unknown] levothyroxine 50 mcg tablet 50 mcg PO DAILY 12/16/19 [History Last Taken Unknown] ferrous sulfate 325 mg (65 mg iron) tablet 325 mg PO BID 02/19/20 [History Last Taken Unknown] metoprolol tartrate 50 mg tablet 50 mg PO BID #180 tabs 04/20/20 [Rx Last Taken Unknown] albuterol sulfate 90 mcg/actuation aerosol inhaler 2 puff inhalation Q4H PRN shortness of breath or wheezing #8.5 grams 10/31/21 [Rx Last Taken Unknown] valsartan 80 mg tablet 80 mg PO DAILY 11/17/21 [History Last Taken Unknown] amiodarone 200 mg tablet 100 mg PO DAILY #15 tabs 01/09/22 [Rx Last Taken Unknown] amlodipine 10 mg tablet 10 mg PO DAILY 02/27/22 [History Last Taken Unknown] cholecalciferol (vitamin D3) 25 mcg (1,000 unit) tablet 25 mcg PO DAILY 02/27/22 [History Last Taken Unknown] prednisone 5 mg tablet 10 mg PO DAILY #100 tabs 03/06/22 [Rx Last Taken Unknown] acetaminophen 160 mg/5 mL oral elixir 500 mg PO Q4H PRN 06/02/22 [History Last Taken Unknown] empagliflozin 10 mg tablet (Jardiance) 10 mg PO DAILY #30 tabs 06/02/22 [Rx Last Taken Unknown] tizanidine 4 mg capsule 4 mg PO Q8H PRN Pain 06/02/22 [History Last Taken Unknown] furosemide 40 mg tablet 40 mg PO DAILY #30 tabs 08/08/22 [Rx Last Taken Unknown] hydrocodone-acetaminophen 5-325mg 5mg-325mg 1 tab PO QHS PRN Pain 08/10/22 [History Last Taken Unknown] Allergy/AdvReac Type Severity Reaction Status Date / Time No Known Allergies Allergy Verified 09/06/22 19:59 Family History Mother Hypertension Heart disease Surgical History History of hernia repair History of hip replacement History of partial knee replacement Presence of coronary angioplasty implant and graft (~07/04/18) Social History Smoking Status: Never smoker alcohol intake: never substance use type: does not use ROS ROS ED Constitutional Constitutional ED: Denies chills or fever(s) Eyes Eyes: Denies change in vision or diplopia ENT ENT ED: Denies rhinorrhea or sore throat Cardiovascular Cardiovascular: Denies chest pain or palpitations Respiratory/Chest Respiratory/Chest: Denies cough or dyspnea Gastrointestinal Gastrointestinal: Denies abdominal pain, nausea or vomiting Genitourinary Genitourinary ED: Denies dysuria Musculoskeletal Musculoskeletal: Denies arthralgias Integumentary Denies abscess or Abrasions Neurologic Neurologic: Denies headache(s) or paresthesias Psychiatric Psychiatric: Denies anxiety or depression EXAM Physical Exam Const Vital Signs: 09/06/22 19:59 09/06/22 20:34 Temperature 98.8 F Temperature Source Temporal Pulse Rate 113 H Respiratory Rate 18 Blood Pressure 97/48 L 163/69 H Blood Pressure Mean 64 100 Pulse Ox 95 Oxygen Delivery Method Room Air Positive well nourished and obese General Appearance ED: NAD Nutritional Appearance: obese HEENT Reports moist mucous membranes Eyes PERRL and EOMs intact bilaterally General Eye ED: Negative for pale conjunctiva or scleral icterus Chest Wall inspection of chest normal Resp normal respiratory effort and clear to auscultation bilaterally Cardio regular rate and regular rhythm GI normal to inspection, nondistended, normoactive bowel sounds Extremity Extremity Narrative: Erythema, warmth, mild tenderness to the left lower extremity. There are marker lines outlining the redness from earlier in there are still within the borders of this marking. No crepitance. Neuro oriented x3 and CN's II-XII intact bilaterally Motor Exam: general weakness Psych mental status grossly normal Skin Skin Narrative: As described above MDM MDM MDM Narrative Medical decision making narrative: Patient presenting with leg pain and cellulitis. I did obtain a CBC to look for leukocytosis, hemoglobin, differential. And his white blood cell count is 4.7. Platelets slightly low at 136 this is not new for the patient. LFTs are unremarkable. Renal function is near baseline. Electrolytes are normal. Glucose slightly elevated 202 without anion gap. Patient is on Coumadin long-term and he is therapeutic at 2.6. Given this I have low suspicion for blood clot. I discussed this with Dr. Norris who is on-call for his primary care physician and he recommended sending him home and to continue his clindamycin. Discussed discussed with the patient and his family. They requested transport to home. Impression: 1. Left lower extremity cellulitis 2. Generalized weakness Lab Data Labs: Laboratory Results - last 24 hr 09/06/22 09/06/22 09/06/22 20:50 20:50 20:50 WBC 4.7 RBC 4.93 Hgb 14.9 Hct 45.3 MCV 91.9 MCH 30.2 MCHC 32.9 RDW Std Deviation 48.2 H RDW Coeff of Alley 14.2 Plt Count 136 L MPV 9.4 Immature Gran % (Auto) 0.200 Neut % (Auto) 80.0 H Lymph % (Auto) 9.7 L Hopkins % (Auto) 9.7 Eos % (Auto) 0.0 Baso % (Auto) 0.4 Absolute Neuts (auto) 3.7 Absolute Lymphs (auto) 0.45 L Nucleated RBC % 0 Differential Comment SCANNED PT 27.3 H INR 2.6 Sodium 141 Potassium 4.3 Chloride 104 Carbon Dioxide 26.0 Anion Gap 11 BUN 36 H Creatinine 2.13 H Estim Creat Clear Calc 24.46 Est GFR (MDRD) Af Amer 39 L Est GFR (MDRD) Non-Af 32 L BUN/Creatinine Ratio 16.9 Glucose 202 H Calcium 9.0 Total Bilirubin 0.80 AST 17 ALT 30 Alkaline Phosphatase 82 Total Protein 6.4 Albumin 3.1 L Globulin 3.3 Albumin/Globulin Ratio 0.9 Discharge Plan Triage Chief Complaint: Cellulitis ED Provider: Ignacio Jeff Dx/Rx/DC Orders Instructions: ED Cellulitis Prescriptions: No Action lorazepam 0.5 mg tablet 0.5 mg PO QD-BID PRN (Reason: Anxiety) atorvastatin 40 mg tablet 40 mg PO QHS Qty: 30 6RF warfarin 4 mg tablet 2 mg PO .COMPLEX Protocol: Dose Management Protocol Text: Patient Instructed to take: warfarin 4 mg (1 Tab) on URIBE, , , , , FR warfarin 4 mg (0.5 Tab) on SA Label Comments: 2 mg PO Managed by PCP; Rx Instructions: 2 mg PO Managed by PCP; cetirizine 10 mg capsule 10 mg PO HS Qty: 30 3RF valsartan 80 mg tablet 80 mg PO DAILY amlodipine 10 mg tablet 10 mg PO DAILY cholecalciferol (vitamin D3) 25 mcg (1,000 unit) tablet 25 mcg PO DAILY tizanidine 4 mg capsule 4 mg PO Q8H PRN (Reason: Pain) acetaminophen 160 mg/5 mL elixir 500 mg PO Q4H PRN Jardiance 10 mg tablet 10 mg PO DAILY Qty: 30 6RF hydrocodone-acetaminophen 5-325 mg tablet 1 tab PO QHS PRN (Reason: Pain) omeprazole 20 MG capsule 20 mg PO DAILY aspirin 81 MG tablet,chewable 81 mg PO DAILY@0800 levothyroxine 50 mcg tablet 50 mcg PO DAILY ferrous sulfate 325 mg (65 mg iron) tablet 325 mg PO BID metoprolol tartrate 50 mg tablet 50 mg PO BID Qty: 180 3RF albuterol sulfate 90 mcg/actuation HFA aerosol inhaler 2 puff inhalation Q4H PRN (Reason: shortness of breath or wheezing) Qty: 8.5 3RF Rx Instructions: administer with spacer amiodarone 200 mg tablet 100 mg PO DAILY Qty: 15 11RF prednisone 5 mg tablet 10 mg PO DAILY Qty: 100 3RF furosemide 40 mg tablet 40 mg PO DAILY Qty: 30 2RF Primary Care Provider: Eric Newton Referrals: Eric Newton MD [Primary Care Provider] - Disposition Disposition: Home, Self Care
[2022-09-06 21:46] LABS: Differential Comment SCANNED
[2022-09-06 22:47] VITALS: BP 145/68; PULSE 87; RESP 18
== END 2022-09-06 23:58 | disposition home or self-care (01) ==
PROVIDERS: Emergency Provider Student in an Organized Health Care Education/Training Program; PCP Family Medicine; Visit Provider Student in an Organized Health Care Education/Training Program
DX: L03.116 Cellulitis of left lower limb (principal); I50.9 Heart failure, unspecified; I11.0 Hypertensive heart disease with heart failure; I48.0 Paroxysmal atrial fibrillation; I25.10 Atherosclerotic heart disease of native coronary artery without angina pectoris; R53.1 Weakness; E78.5 Hyperlipidemia, unspecified; E66.9 Obesity, unspecified; Z68.36 Body mass index [BMI] 36.0-36.9, adult; Z95.5 Presence of coronary angioplasty implant and graft; Z79.01 Long term (current) use of anticoagulants; Z79.82 Long term (current) use of aspirin; Z79.899 Other long term (current) drug therapy
CPT/HCPCS: 80053; 85025; 85610; 99284

== ENCOUNTER 2022-09-06 20:26 | Emergency (ER) | payer OTHER, SELFPAY | END 2022-09-06 20:30 | disposition left against medical advice (07) | LOC: ED 09-13 13:27 | PROVIDERS: PCP Family Medicine | DX: Z53.21 Procedure and treatment not carried out due to patient leaving prior to being seen by health care provider (principal) ==

== ENCOUNTER 2022-09-07 09:52 | Inpatient (IN) | payer OTHER, SELFPAY ==
[2022-09-07] VITALS (27 sets, daily range): BP systolic 87–152; BP diastolic 48–114; PULSE 59–104; RESP 12–32; TEMP 35.9–38.2; O2SAT 90–100; BMI 40.4; BMI 39.1
--- NOTE | 2022-09-07 10:00 | EKG12_ITS ---
Test Reason : UNRESPONSIVE Blood Pressure : / mmHG Vent. Rate : 062 BPM Atrial Rate : 062 BPM P-R Int : 172 ms QRS Dur : 080 ms QT Int : 432 ms P-R-T Axes : 069 039 058 degrees QTc Int : 438 ms Normal sinus rhythm Low voltage QRS Borderline ECG Confirmed by RAKEL BHANDARI, ADAM ([id number]), metropolitan editor KAIDEN PASTOR ([id number]) on 09/08/2022 2:47:51 PM Referred By: AR Confirmed By:DICK ELLINGTON MD
[2022-09-07] MEDS: 0.9% Normal Saline 1,000 ML 999 ML IV ×2 (10:03→14:00)
[2022-09-07 10:15] LABS: Absolute Lymphocyte Count 1.34 X10^3/uL (0.83-4.51); Basophil# 0.06 X10^3/uL; Basophil% 0.4 % (0-1); Eosinophil# 0.01 X10^3/uL; Eosinophils% 0.1 % (0-5); Hematocrit 42.6 % (40-54); Hemoglobin 13.8 g/dL (13.0-16.5); Lymphocyte # 1.34 X10^3/ul (0.83-4.51); Mean Corp Hgb Conc 32.4 g/dL (32-36); Mean Corpuscular Hgb 31.1 pg (27.0-32.0); Mean Corpuscular Volume 95.9 fL (80-94); Monocyte% 5.2 % (0-10); NRBC Flagged by Analyzer 0.1 % (0-5); Neutrophil # 11.03 X10^3/uL (2.7-7.7); Neutrophil % 82.6 % (47-70); POSITIVE MORPHOLOGY YES; Platelet Count 143 K/mm3 (150-450); RBC Distribution Width CV 14.5 % (11.6-14.6); RBC Distribution Width SD 51.4 fl (35.1-43.9); Red Blood Count 4.44 M/mm3 (4.6-6.2); White Blood Count 13.4 K/mm3 (4.4-11.0)
--- NOTE | 2022-09-07 10:15 | RAD_ITS ---
STUDY: X-RAY CHEST REASON FOR EXAM: Male, 81 years old. Shortness of breath . Unresponsive. TECHNIQUE: Single AP portable view of the chest. COMPARISON: Comparison is made with prior study dated 02/27/2022. FINDINGS: EKG electrodes are seen. Mild degree of increased markings at both lung bases suggestive of bibasilar atelectasis. The lungs are clear and expanded. There is no demonstrated pleural abnormality. Normal size heart. Normal mediastinum and rishabh. Normal visualized pulmonary arteries. There is atherosclerotic calcification of the aortic arch with tortuosity. There are diffuse degenerative changes of the visualized thoracic spine. Normal visualized ribs, clavicles, and shoulders. Stable 2.1 cm rounded calcification in the left upper quadrant suggestive of a splenic artery aneurysm calcification. RAD/Chest 1 View (Portable) IMPRESSION: Mild degree of increased markings at the lung bases suggestive of bibasilar atelectasis. Electronically Signed: Bacilio Mitchell MD at 10:57 EST ,
[2022-09-07 10:18] LABS: Differential Indicated SCAN CRITERIA MET
--- NOTE | 2022-09-07 10:22 | EDS_ITS ---
HPI History of Present Illness Chief Complaint: Shortness of Breath Narrative Narrative: 81-year-old male presents via EMS with his family because of acute mental status change. Per EMS, patient was seen in the emergency department last evening. Family states that they arrived home around 2 AM. He was seen for cellulitis and is currently on antibiotics, but when they went to awaken him this morning to give him pain medications, he was unresponsive. Per EMS, pulse ox was low in the 70s. He was placed on a nonrebreather and satting 91%. Blood sugar was checked at home and was normal in the 140's. They thought maybe he had left- sided weakness as he had difficulty moving his left arm this morning. This was noticed at 2 AM according to the family, over 7 hours ago. According to his family, since his history and physical is limited secondary to his current mental status, he has history of lumbar compression fractures x5. He has obstructive sleep apnea, and hypertension. He states that they were not admitted earlier this morning because there were no criteria on which to admit the patient as he was already on antibiotics. He does have history of congestive heart failure also. According to EMS, patient is also hypotensive. [facility] Medical History Atherosclerotic heart disease of 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 Long-term use of high-risk medication Lung nodule Paroxysmal A-fib Presence of stent in coronary artery (~07/04/18) Renal insufficiency Restrictive airway disease Home Medications aspirin 81 mg chewable tablet 81 mg PO DAILY@0800 health maintenance 07/02/18 [History Last Taken 04/24/19] omeprazole 20 mg capsule,delayed release 20 mg PO DAILY gerd 07/02/18 [History Last Taken 05/07/19] atorvastatin 40 mg tablet 40 mg PO QHS #30 tabs 07/29/18 [Rx Last Taken Unknown] lorazepam 0.5 mg tablet 0.5 mg PO QD-BID PRN Anxiety 07/29/18 [History Last Taken 05/07/19] warfarin 4 mg tablet 2 mg PO .COMPLEX 09/18/18 [History Last Taken 04/24/19] cetirizine 10 mg capsule 10 mg PO HS #30 caps 08/20/19 [Rx Last Taken Unknown] levothyroxine 50 mcg tablet 50 mcg PO DAILY 12/16/19 [History Last Taken Unknown] ferrous sulfate 325 mg (65 mg iron) tablet 325 mg PO BID 02/19/20 [History Last Taken Unknown] metoprolol tartrate 50 mg tablet 50 mg PO BID #180 tabs 04/20/20 [Rx Last Taken Unknown] albuterol sulfate 90 mcg/actuation aerosol inhaler 2 puff inhalation Q4H PRN shortness of breath or wheezing #8.5 grams 10/31/21 [Rx Last Taken Unknown] valsartan 80 mg tablet 80 mg PO DAILY 11/17/21 [History Last Taken Unknown] amiodarone 200 mg tablet 100 mg PO DAILY #15 tabs 01/09/22 [Rx Last Taken Unknown] amlodipine 10 mg tablet 10 mg PO DAILY 02/27/22 [History Last Taken Unknown] cholecalciferol (vitamin D3) 25 mcg (1,000 unit) tablet 25 mcg PO DAILY 02/27/22 [History Last Taken Unknown] prednisone 5 mg tablet 10 mg PO DAILY #100 tabs 03/06/22 [Rx Last Taken Unknown] acetaminophen 160 mg/5 mL oral elixir 500 mg PO Q4H PRN 06/02/22 [History Last Taken Unknown] empagliflozin 10 mg tablet (Jardiance) 10 mg PO DAILY #30 tabs 06/02/22 [Rx Last Taken Unknown] tizanidine 4 mg capsule 4 mg PO Q8H PRN Pain 06/02/22 [History Last Taken Unknown] furosemide 40 mg tablet 40 mg PO DAILY #30 tabs 08/08/22 [Rx Last Taken Unknown] hydrocodone-acetaminophen 5-325mg 5mg-325mg 1 tab PO QHS PRN Pain 08/10/22 [History Last Taken Unknown] Allergy/AdvReac Type Severity Reaction Status Date / Time No Known Allergies Allergy Verified 09/06/22 19:59 Family History Mother Hypertension Heart disease Surgical History History of hernia repair History of hip replacement History of partial knee replacement Presence of coronary angioplasty implant and graft (~07/04/18) Social History Smoking Status: Never smoker alcohol intake: never substance use type: does not use ROS ROS ED ROS Narrative Limited secondary to patient's mental status. Constitutional: No fever, no chills. According to family, generalized weakness. Left arm weakness. Decreased mental status. HEENT: No sore throat. No neck pain. No loss of vision. No rhinorrhea. Cardiovascular: No chest pain. No palpitations. No pedal edema. Respiratory: No cough, positive shortness of breath. Abdominal: No abdominal pain. No nausea. No vomiting. Genitourinary: No dysuria. No hematuria. Musculoskeletal: No myalgias. No arthralgias. Neurologic: No headaches. No dizziness. No lightheadedness. Skin: No rash. Cellulitis of left lower extremity. Psychiatric: No depression. No anxiety. EXAM Physical Exam Narrative Exam Narrative: Afebrile. Vital signs noted. HEENT: Normocephalic. Atraumatic. PERRL, EOMI. Neck soft and supple. No point tenderness or step off. Cardiovascular: Regular rate and rhythm. No murmurs, rubs, or gallops appreciated. Respiratory: No tachypnea. Decreased breath sounds bilateral bases with occasional rhonchi bilaterally. Gastrointestinal: Abdomen soft, nontender, with normoactive bowel sounds. No rebound or guarding. Neurological: Awake. Alert. Nonfocal, nonlateralizing. Skin: No rash. Cellulitis of left lower extremity, dark red in color, still within lines of marker. No pallor. Musculoskeletal: Bilateral pedal edema. Full range of motion extremities. Const Vital Signs: 09/07/22 09:53 09/07/22 10:00 09/07/22 10:04 Temperature 96.6 F L Temperature Source Temporal Pulse Rate 60 Respiratory Rate 22 H Respiratory Effort Short of Breath Respiratory Depth Shallow Respiratory Pattern Tachypnea Blood Pressure 101/61 Blood Pressure Mean 74 Pulse Ox 95 Oxygen Delivery Method Non-Rebreather Non-Rebreather Bi-pap Fraction of Inspired Oxygen (FIO2) 09/07/22 10:56 09/07/22 11:14 09/07/22 11:13 Temperature Temperature Source Pulse Rate 59 L 62 Respiratory Rate 30 H 22 H Respiratory Effort Respiratory Depth Respiratory Pattern Tachypnea Blood Pressure 126/76 H Blood Pressure Mean 92 Pulse Ox 94 99 100 Oxygen Delivery Method Bi-pap Fraction of Inspired Oxygen (FIO2) 100 90 Sepsis Attestation Sepsis Alert: Yes Sepsis Attestation: Agree w/Sepsis Date exam was performed: 09/07/22 Time exam was performed: 11:30 Possible Source of Sepsis: Skin/soft tissue Sepsis Organ Dysfunction Criteria Present: SBP decrease of more than 40 mmHg, Acute Respiratory Failure (New need for BiPAP/CPAP or MV), Creatinine > 2.0 mg/dL, Lactic Acid > 2 mmol/L and New/Unexplained change in mental status MDM MDM MDM Narrative Medical decision making narrative: TodayPatient's pulse ox is tenuous on 100% nonrebreather at 15 L/min. It was around 91%. He was placed on BiPAP. Comprehensive work-up was pursued. In the differential diagnosis is sepsis versus congestive heart failure exacerbation versus pneumonia. Initially his blood pressure was recorded as 101 systolic. 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 2 IVs were placed. Comprehensive work-up was pursued. I am hesitant to give him large aliquots of IV fluid given his history of congestive heart failure, but his blood pressure did dip into the 80s so he was bolused normal saline 1 L intravenously initially. I will also obtain a blood gas because if he is having CO2 retention from a CHF/COPD exacerbation this could explain his mental status change. As he has been on narcotic pain medication, he was administered 2 mg of Narcan intravenously to see if this would improve his mental status. His family states that his arm movement has increased and his responsiveness has increased since they got home this morning at 2 AM. Sepsis work-up was pursued. I reviewed his laboratory work. He has an elevated white count of 13.4 currently, up from normal around 8 in the evening. Hemoglobin normal at 13.8, platelet count 143, and stable. Coagulation studies show INR elevated at 2.7, but he does take warfarin. Electrolyte panel shows creatinine of 2.95, but he does have chronic kidney injury and his creatinine was 2.1 yesterday. Glucose appropriately elevated at 159 with a normal anion gap of 12. High-sensitivity troponin is 40. EKG obtained and interpreted by myself which demonstrates normal sinus rhythm at 62 bpm without ectopy or acute ST changes. No STEMI. No significant change from previous dated July 06, 2018. He was placed on BiPAP, but arterial blood gas was obtained. I reviewed the blood gas and he has a normal pH of 7.329 with a PCO2 only slightly elevated at 38 and PO2 105. His BiPAP was weaned from 100% by respiratory therapy, and he remains on BiPAP currently. BNP is elevated at 508, the last being a few years ago, and below 200. Chest x-ray was obtained and interpreted by myself which shows atelectasis but no evidence of florid CHF. Regardless, I am still hesitant to give him large aliquots of fluid given his history of CHF, but his lactic acid is elevated at 5.0. Urinalysis was obtained and was pending so he was started on Zosyn and vancomycin for the cellulitis of his left leg. In review of his UA, there are 25-50 WBCs by urine Márquez catheter. This will be sent for culture. He temporarily had a drop in his systolic blood pressure to the 80s so he will be bolused another liter of normal saline. At this point in time, I will discuss patient with the hospitalist for admission. I discussed the patient with Dr. Quinn who will admit him to the ICU. Patient is in guarded condition. Critical care time 31 minutes. Lab Data Attestation: I reviewed the patient's lab results. Labs: Laboratory Results - last 24 hr 09/07/22 09/07/22 09/07/22 09:55 09:55 09:55 WBC 13.4 H RBC 4.44 L Hgb 13.8 Hct 42.6 MCV 95.9 H MCH 31.1 MCHC 32.4 RDW Std Deviation 51.4 H RDW Coeff of [place] 14.5 Plt Count 143 L MPV 10.0 Immature Gran % (Auto) 1.700 H Neut % (Auto) 82.6 H Lymph % (Auto) 10.0 L [place] % (Auto) 5.2 Eos % (Auto) 0.1 Baso % (Auto) 0.4 Absolute Neuts (auto) 11.0 H Absolute Lymphs (auto) 1.34 Nucleated RBC % 0.1 Differential Comment PT 28.4 H INR 2.7 APTT 49.0 H Sodium 139 Potassium 4.9 Chloride 104 Carbon Dioxide 23.0 Anion Gap 12 BUN 44 H Creatinine 2.95 H Estim Creat Clear Calc 17.66 Est GFR (MDRD) Af Amer 27 L Est GFR (MDRD) Non-Af 22 L BUN/Creatinine Ratio 14.9 Glucose 159 H Lactic Acid Calcium 8.7 Total Bilirubin 0.70 AST 19 ALT 23 Alkaline Phosphatase 69 Troponin I High Sens 40 B-Natriuretic Peptide Total Protein 5.8 L Albumin 2.4 L Globulin 3.4 Albumin/Globulin Ratio 0.7 L Urine Color Urine Clarity Urine pH Ur Specific [place] Urine Protein Urine Glucose (UA) Urine Ketones Urine Occult Blood Urine Nitrite Urine Bilirubin Urine Urobilinogen Ur Leukocyte Esterase Urine RBC Urine WBC Ur Squamous Epith Cells Urine Bacteria Hyaline Casts WBC Casts Urine Mucus 09/07/22 09/07/22 09/07/22 09:55 09:55 11:10 WBC RBC Hgb Hct MCV MCH MCHC RDW Std Deviation RDW Coeff of [place] Plt Count MPV Immature Gran % (Auto) Neut % (Auto) Lymph % (Auto) [place] % (Auto) Eos % (Auto) Baso % (Auto) Absolute Neuts (auto) Absolute Lymphs (auto) Nucleated RBC % Differential Comment PT INR APTT Sodium Potassium Chloride Carbon Dioxide Anion Gap BUN Creatinine Estim Creat Clear Calc Est GFR (MDRD) Af Amer Est GFR (MDRD) Non-Af BUN/Creatinine Ratio Glucose Lactic Acid 5.0 H* Calcium Total Bilirubin AST ALT Alkaline Phosphatase Troponin I High Sens B-Natriuretic Peptide 508.1 H Total Protein Albumin Globulin Albumin/Globulin Ratio Urine Color Yellow Urine Clarity Sl. Cloudy Urine pH 5.0 Ur Specific [place] 1.010 Urine Protein 30 H Urine Glucose (UA) 1000 H Urine Ketones Negative Urine Occult Blood 10 H Urine Nitrite Negative Urine Bilirubin Negative Urine Urobilinogen Normal Ur Leukocyte Esterase 500 H Urine RBC 0-5 SEEN Urine WBC 25-50 SEEN Ur Squamous Epith Cells 0-5 SEEN Urine Bacteria 1+ Hyaline Casts 0-5 SEEN WBC Casts 0-5 SEEN Urine Mucus 0 SEEN ABG Data ABG results: ABG 09/07/22 10:39 Specimen Type ART Sample Site L Radial pH 7.33 L Bicarbonate Actual 20.2 L Total CO2 21 Base Excess -6 L O2 Saturation 98 O2 % 100 ABG pCO2 38.4 ABG pO2 105 H Abdiel Test Positive Respiration Rate 12 O2 Delivery Device BiPAP Vent Mode BiLevel POC PEEP 8 Radiography Diagnostic Testing: Clinical Impression(s) from Imaging Studies Chest X-Ray 09/07/22 10:15 IMPRESSION: Mild degree of increased markings at the lung bases suggestive of bibasilar atelectasis. Electronically Signed: Bacilio Mitchell MD at 10:57 EST , Brain CT 09/07/22 10:28 IMPRESSION: Chronic involutional changes of the brain. Tiny lacunae in the right basal ganglia. Age is indeterminate. Electronically Signed: Bacilio Mitchell MD at 11:21 EST , Critical Care Time Critical Care Time: Yes Critical care time (excluding procedures): 30-74 minutes (31 minutes), Including time spent:, Discussing w/Patient &/or Family/Medical Claims Assistant, Discussing w/Consultants, Arranging Admission or Transfer and Performing Direct Patient Care at Bedside Discharge Plan Dx/Rx/DC Orders Clinical Impression: Cellulitis of left lower leg, Change in mental status, Sepsis, Lactic acidosis, Hypoxia Disposition Disposition: Acute Care [facility]
--- NOTE | 2022-09-07 10:28 | CT_ITS ---
STUDY: CT BRAIN WITHOUT CONTRAST REASON FOR EXAM: Male, 81 years old. Mental status change RADIATION DOSAGE (If Supplied By Facility): CTDIvol = ( 44.99 ) mGy, DLP = ( 846.73 ) mGycm TECHNIQUE: Transaxial CT imaging of the brain was performed without administration of intravenous contrast material. Individualized dose optimization techniques were used for this CT. COMPARISON: No relevant priors. FINDINGS: Normal soft tissue structures. Normal calvarium. There is mild cerebral atrophy with widening of the extra-axial spaces and ventricular dilatation. There are areas of decreased attenuation within the white matter tracts of the supratentorial brain, consistent with microvascular disease changes. Annual occlusion in the right basal ganglion. Normal brainstem. Normal cerebellum. There is no intracranial hemorrhage. There are no findings of an acute ischemic infarction. Atherosclerotic calcification plaques of the vertebral arteries and cavernous portions of the internal carotid arteries bilaterally. Normal visualized paranasal sinuses. CT/Brain/Head without Contrast IMPRESSION: Chronic involutional changes of the brain. Tiny lacunae in the right basal ganglia. Age is indeterminate. Electronically Signed: Bacilio Mitchell MD at 11:21 EST ,
[2022-09-07 10:33] LABS: ALB/GLOB Ratio 0.7 RATIO (0.9-2.4); AST(SGOT) 19 U/L (15-37); Alanine Aminotransfer ALT/SGPT 23 U/L (16-61); Albumin, Serum 2.4 g/dL (3.2-5.0); Alkaline Phosphatase 69 U/L (45-117); Anion Gap 12 (5-15); BUN 44 mg/dL (7-18); BUN/Creat Ratio 14.9 RATIO (10-20); Calcium,Total 8.7 mg/dL (8.5-10.1); Chloride 104 mmol/L (98-107); Creatinine, Serum 2.95 mg/dL (0.70-1.30); EST Glomerular Filtration Rate 22 mL/min (>60); Est Glom Filt Rate - Afr Amer 27 mL/min (>60); Estimated Creatinine Clearance 17.66 ml/min; Globulin 3.4 g/dL (2.2-4.2); Glucose 159 mg/dL (74-106); Potassium 4.9 mmol/L (3.5-5.1); Protein, Total 5.8 g/dL (6.4-8.2); Sodium Level 139 mmol/L (136-145); Troponin-I HS 40 pg/mL (3.0-78.0)
[2022-09-07 10:41] LABS: BNP,B-Type NATRIURETIC PEPTIDE 508.1 pg/mL (0-100)
[2022-09-07 10:45] LABS: Allen Test Positive; Base Excess -6 mmol/L (-2 to +2); Bicarbonate 20.2 mmol/L (22-26); Blood Gas Specimen Type ART; FI02 100; Mode BiLevel; O2 Delivery Device BiPAP; PEEP 8; PO2 105 mmHG (75-100); RR 12; SITE L Radial; SO2 98 % (95-99); Total Carbon Dioxide 21 mmol/L; pCO2 38.4 mmHg (35-45); pH 7.33 (7.35-7.45)
[2022-09-07 11:13] LABS: Mucous, Urine 0 SEEN /hpf (<or=2+)
[2022-09-07 11:17] LABS: Color, Urine Yellow (Yellow); Glucose, Dipstick 1000 mg/dl (Normal); Ketone-Dipstick Negative (Negative); Leukocyte Esterase-Dipstick 500 /ul (Negative); Nitrite-Dipstick Negative (Negative); Occult Blood-Urine 10 /ul (Negative); Protein-Dipstick 30 mg/dl (Negative); Urine Bilirubin Dipstick Negative (Negative); Urine Clarity Sl. Cloudy (Clear); Urine Urobilinogen Normal (Normal)
--- NOTE | 2022-09-07 11:19 | ED.RN ---
family keeps arriving to sit in waiting. explained to grandlogan, who is on [employer] that we can not have visitors in the waiting. grandson become aggressive stating this is gonna make us not like leon and by they time you done with me, youre not going to like me, AND i am not done with the dr from last night.
--- NOTE | 2022-09-07 11:24 | ED.RN ---
alexei looks at this rn then cristian the volunteer and says well i'll just have Cristian breaks the rules again.
[2022-09-07 11:28] LABS: Bacteria 1+ /hpf (None Seen); Red Blood Cells-Urine 0-5 SEEN /hpf (0-5); Squamous Epithelial Cells - UA 0-5 SEEN /hpf (0-5); White Blood Cells 25-50 SEEN /hpf (0-5); White Cell Cast 0-5 SEEN /lpf (None Seen)
[2022-09-07 11:29] LABS: Hyaline Cast 0-5 SEEN /lpf (0-5)
[2022-09-07 11:37] LABS: International Normalized Ratio 2.7; Prothrombin Time (Protime)PT. 28.4 SECONDS (11.7-14.9)
--- NOTE | 2022-09-07 13:10 | CT_ITS ---
STUDY: CT SCAN LOWER EXTREMITY LEFT REASON FOR EXAM: Male, 81 years old. Concern for necrotizing fasciitis RADIATION DOSAGE (If Supplied By Facility): CTDIvol = ( 19.93 ) mGy, DLP = ( 2197.70 ) mGycm. Individualized dose optimization techniques were used for this CT.? TECHNIQUE: Multiple axial tomographic images of the left lower extremity were obtained following intravenous contrast administration. Coronal and sagittal reconstruction was obtained as well. COMPARISON: None. FINDINGS: There is diffuse increased markings in the subcutaneous fat of the entire left lower extremity with overlying skin thickening. This is worse along the lateral aspect. There is also evidence of diffuse subcutaneous edematous changes in the posterior aspect of the left lower leg. No evidence of air within the diffuse swelling. No bony abnormality is present. CT/Extremity Lower WITH Contrast IMPRESSION: Findings suggestive of diffuse cellulitis of the left lower extremity with overlying skin thickening and subcutaneous edema. No radiographic evidence of necrotizing fasciitis at this time. Electronically Signed: Bacilio Mitchell MD at 14:04 EST ,
--- NOTE | 2022-09-07 13:32 | PCM.HP.STD ---
HPI - General General Date of Admission: 09/07/22 Date of Service: 09/07/22 Chief Complaint: Altered mental status HPI Narrative JOSE A STEIN, is a 81 M with his degree of CKD stage III unclear subtype, GERD, reported history of congestive heart failure, hyperglycemia, coronary disease status post stent in 2018, KIM on sleep, chronic lower back pain, proximal afib presented to [facility] 09/07/2022 via EMS with altered mental status. He was seen in the emergency department last evening for a left lower extremity cellulitis that had started earlier that day but he did not meet admission criteria and was discharged home. They arrived home at 2 AM and he went to bed but when they went to wake him in the morning to give him his pain medication he was noted to have altered mental status and decreased level of consciousness. For my queried if maybe he had some left-sided weakness as he was moving his right arm more. EMS arrived and noted pulse ox was in the low 70s and he was placed on nonrebreather and satting at 91%. In the ED he was placed on BiPAP and respiratory status responded well. Had ABG in ED which showed pH of 7.33 with a bicarb of 20 and a total CO2 of 21 with a PCO2 of 105. Did have a BNP of 500 but was not overtly fluid overloaded and chest x-ray did not appear to be in exacerbation of CHF. He was found to have white count of 13.4 with left shift though was normal yesterday lactic acid was 5, left lower extremity cellulitis had progressed rapidly and it was deemed he likely had sepsis secondary to lower extremity cellulitis and cultures obtained. Additionally was found to have a creatinine of 2.95 which was 2.13 yesterday. He was given vancomycin and Zosyn and initially fluids were started slowly due to CHF and initial concern for CHF exacerbation but blood pressure decreased and full sepsis 3 L was ordered. For his altered mental status with being unclear if there were any deficits due to inability to cooperate with neuro exam CT head obtained which showed chronic involutional changes of the brain and tiny lacunar in the right basal ganglia which age was indeterminate. Stroke call was not called due to timing as well as their dating other underlying reasons for his mental status. Hospitalist consulted for admission. In the ED patient would wake up and answer some questions and intermittently follow commands which family at bedside reports was significantly better than when he came in. Did have the left lower extremity circumferential cellulitis which they said that started over the past 24 hours and initially was minimal yesterday and then when he woke up it had progressed rapidly. Prior to this patient had had no complaints per family and was in his usual health aside from lower back pain which she was sent for intervention in 1 week and had been taking pain medication intermittently for the past month for the pain. 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 Long-term use of high-risk medication Lung nodule Paroxysmal A-fib Presence of stent in coronary artery (~07/04/18) Renal insufficiency Restrictive airway disease Home Medications aspirin 81 mg chewable tablet 81 mg PO DAILY@0800 health maintenance 07/02/18 [History Last Taken 09/07/22] omeprazole 20 mg capsule,delayed release 20 mg PO DAILY gerd 07/02/18 [History Last Taken 09/06/22] atorvastatin 40 mg tablet 40 mg PO QHS #30 tabs 07/29/18 [Rx Last Taken 09/05/22] cetirizine 10 mg capsule 10 mg PO HS #30 caps 08/20/19 [Rx Last Taken 09/04/22] ferrous sulfate 325 mg (65 mg iron) tablet 325 mg PO BID 02/19/20 [History Last Taken 09/06/22] metoprolol tartrate 50 mg tablet 50 mg PO BID #180 tabs 04/20/20 [Rx Last Taken 09/06/22] albuterol sulfate 90 mcg/actuation aerosol inhaler 2 puff inhalation Q4H PRN shortness of breath or wheezing #8.5 grams 10/31/21 [Rx Last Taken 2 Days Ago ~09/05/22] valsartan 80 mg tablet 80 mg PO DAILY 11/17/21 [History Last Taken 09/06/22] amiodarone 200 mg tablet 100 mg PO DAILY #15 tabs 01/09/22 [Rx Last Taken 09/06/22] amlodipine 10 mg tablet 10 mg PO DAILY 02/27/22 [History Last Taken 09/06/22] cholecalciferol (vitamin D3) 25 mcg (1,000 unit) tablet 25 mcg PO DAILY 02/27/22 [History Last Taken 09/05/22] prednisone 5 mg tablet 10 mg PO DAILY #100 tabs 03/06/22 [Rx Last Taken 09/06/22] acetaminophen 160 mg/5 mL oral elixir 500 mg PO Q4H PRN Pain 06/02/22 [History Last Taken 09/07/22] tizanidine 4 mg capsule 4 mg PO Q8H PRN Pain 06/02/22 [History Last Taken 09/06/22] hydrocodone-acetaminophen 5-325mg 5mg-325mg 1 tab PO QHS PRN Pain 08/10/22 [History Last Taken 09/07/22] clindamycin HCl 300 mg capsule 300 mg PO Q6H ANTIBIOTIC 09/07/22 [History Last Taken 09/06/22] furosemide 40 mg tablet 20 mg PO DAILY 09/07/22 [History Last Taken 09/06/22] levothyroxine 75 mcg tablet 75 mcg PO DAILY THYROID 09/07/22 [History Last Taken 09/06/22] mupirocin 2 % topical ointment 1 applic topical TID TOPICAL 09/07/22 [History Last Taken 09/06/22] warfarin 2 mg tablet 2 mg PO SUTUWEFRSA BLOOD THINNER 09/07/22 [History Last Taken 09/06/22] Allergy/AdvReac Type Severity Reaction Status Date / Time No Known Allergies Allergy Verified 09/06/22 19:59 Family History Mother Hypertension Heart disease Surgical History History of hernia repair History of hip replacement History of partial knee replacement Presence of coronary angioplasty implant and graft (~07/04/18) Social History Smoking Status: Never smoker alcohol intake: never substance use type: does not use ROS ROS Narrative Unable to obtain ROS secondary to mental status Vital Signs Vital Signs Vital Signs: 09/07/22 09:53 09/07/22 10:00 09/07/22 10:04 Temperature 96.6 F L Temperature Source Temporal Pulse Rate 60 Respiratory Rate 22 H Respiratory Effort Short of Breath Respiratory Depth Shallow Respiratory Pattern Tachypnea Blood Pressure 101/61 Blood Pressure Mean 74 Pulse Ox 95 Oxygen Delivery Method Non-Rebreather Non-Rebreather Bi-pap Fraction of Inspired Oxygen (FIO2) 09/07/22 10:56 09/07/22 11:14 09/07/22 11:13 Temperature Temperature Source Pulse Rate 59 L 62 Respiratory Rate 30 H 22 H Respiratory Effort Respiratory Depth Respiratory Pattern Tachypnea Blood Pressure 126/76 H Blood Pressure Mean 92 Pulse Ox 94 99 100 Oxygen Delivery Method Bi-pap Fraction of Inspired Oxygen (FIO2) 100 90 09/07/22 12:28 09/07/22 12:43 09/07/22 12:43 Temperature 99.9 F H Temperature Source Temporal Pulse Rate 64 63 63 Respiratory Rate 28 H 15 15 Respiratory Effort Respiratory Depth Respiratory Pattern Tachypnea Blood Pressure 90/77 90/77 Blood Pressure Mean 81 81 Pulse Ox 95 98 98 Oxygen Delivery Method Room Air Room Air Fraction of Inspired Oxygen (FIO2) 60 Weight Weight: 110.2 kg Body Mass Index (BMI) 40.4 Physical Exam Narrative General: Laying on ED bed appears mildly distressed, slightly decreased level of consciousness but would wake up and attempt to answer questions HEENT: Atraumatic, normocephalic Eyes: Anicteric, extraocular movements grossly intact Neck: Supple Respiratory: Fairly normal respiratory effort, presently on BiPAP, somewhat diminished at the bases Cardiovascular: Regular rate and rhythm GI: Soft, nontender, no rebound, guarding, rigidity Extremities: Left lower extremity with circumferential erythema reaching to the knee that blanches, 1 bulla on the inner aspect of the leg and one area that appeared slightly open on the anterior aspect without overt drainage, no air palpated, 2 small erythematous lesions on the right lower extremity with serosanguineous fluid Musculoskeletal: Moving all extremities Neuro: Unable to participate in neuro exam at time of evaluation, was following commands and moving all extremities and attempting to answer questions but cannot cooperate more specifically Skin: As above Psych: Attempted to cooperate Results Lab / Micro Data Result Diagrams: 09/07/22 09:55 09/07/22 09:55 Labs: Laboratory Results - last 24 hr 09/07/22 09:55: WBC 13.4 H, RBC 4.44 L, Hgb 13.8, Hct 42.6, MCV 95.9 H, MCH 31.1, MCHC 32.4, RDW Std Deviation 51.4 H, RDW Coeff of Alley 14.5, Plt Count 143 L, MPV 10.0, Immature Gran % (Auto) 1.700 H, Neut % (Auto) 82.6 H, Lymph % (Auto) 10.0 L, [place] % (Auto) 5.2, Eos % (Auto) 0.1, Baso % (Auto) 0.4, Absolute Neuts (auto) 11.0 H, Absolute Lymphs (auto) 1.34, Nucleated RBC % 0.1, Differential Comment 09/07/22 09:55: PT 28.4 H, INR 2.7, APTT 49.0 H 09/07/22 09:55: Sodium 139, Potassium 4.9, Chloride 104, Carbon Dioxide 23.0, Anion Gap 12, BUN 44 H, Creatinine 2.95 H, Estim Creat Clear Calc 17.66, Est GFR (MDRD) Af Amer 27 L, Est GFR (MDRD) Non-Af 22 L, BUN/Creatinine Ratio 14.9, Glucose 159 H, Calcium 8.7, Total Bilirubin 0.70, AST 19, ALT 23, Alkaline Phosphatase 69, Troponin I High Sens 40, Total Protein 5.8 L, Albumin 2.4 L, Globulin 3.4, Albumin/Globulin Ratio 0.7 L 09/07/22 09:55: Lactic Acid 5.0 H* 09/07/22 09:55: B-Natriuretic Peptide 508.1 H 09/07/22 11:10: Urine Color Yellow, Urine Clarity Sl. Cloudy, Urine pH 5.0, Ur Specific [place] 1.010, Urine Protein 30 H, Urine Glucose (UA) 1000 H, Urine Ketones Negative, Urine Occult Blood 10 H, Urine Nitrite Negative, Urine Bilirubin Negative, Urine Urobilinogen Normal, Ur Leukocyte Esterase 500 H, Urine RBC 0-5 SEEN, Urine WBC 25-50 SEEN, Ur Squamous Epith Cells 0-5 SEEN, Urine Bacteria 1+, Hyaline Casts 0-5 SEEN, WBC Casts 0-5 SEEN, Urine Mucus 0 SEEN ABG Data ABG results: ABG 09/07/22 10:39 Specimen Type ART Sample Site L Radial pH 7.33 L Bicarbonate Actual 20.2 L Total CO2 21 Base Excess -6 L O2 Saturation 98 O2 % 100 ABG pCO2 38.4 ABG pO2 105 H Abdiel Test Positive Respiration Rate 12 O2 Delivery Device BiPAP Vent Mode BiLevel POC PEEP 8 Radiology Impression Chest X-Ray 09/07/22 10:15 IMPRESSION: Mild degree of increased markings at the lung bases suggestive of bibasilar atelectasis. Electronically Signed: Bacilio Mitchell MD at 10:57 EST , Brain CT 09/07/22 10:28 IMPRESSION: Chronic involutional changes of the brain. Tiny lacunae in the right basal ganglia. Age is indeterminate. Electronically Signed: Bacliio Mitchell MD at 11:21 EST , Assessment & Plan Assessment/Plan (1) Severe sepsis: (2) Cellulitis of left lower leg: (3) Change in mental status: (4) Lactic acidosis: (5) Lumbar compression fracture: (6) Presence of stent in coronary artery: (7) KIM (obstructive sleep apnea): (8) Essential hypertension: (9) GERD (gastroesophageal reflux disease): (10) Paroxysmal A-fib: (11) CHF (congestive heart failure): QUALIFIERS: Heart failure type: systolic Heart failure chronicity: chronic Qualified Code(s): I50.22 - Chronic systolic (congestive) heart failure (12) Hyperglycemia: (13) CKD (chronic kidney disease), stage III: PLAN: Plan #Severe sepsis secondary to left lower extremity cellulitis White count 13.4 with left shift, lactic acid 5.0, LILIA on CKD Likely source left lower extremity rapidly progressive cellulitis Pancultures, Vanco, Zosyn, clindamycin added CT of lower extremity to assess for air though no crepitus felt on exam Did notify surgery and ICU team Patient hypotensive in ED but has not yet completed fluid resuscitation's at this time cannot recall the septic shock Pancultured #Altered mental status Likely due to to his severe sepsis CT of the head with chronic involutional changes of the brain and tiny lacunae in the right basal ganglia which age was indeterminant Unable to participate in neurologic exam and last known normal was at 2 AM and out of the window for any intervention Stroke call not been called We will obtain MRI Echo N.p.o. PT/OT/speech #LILIA on CKD stage IIIb Likely due to sepsis Receiving fluids Did obtain contrasted CT scan was lower extremity to rule out necrotizing fasciitis so this may transiently worsen He follows with Dr. Plasencia with nephrology, nephrology consulted Avoid nephrotoxic agents #Reported history of heart failure Most recent echocardiogram with EF within normal limits and indeterminate diastolic dysfunction Repeating at this time Did have BNP of 500 but chest x-ray nonspecific and given his severe sepsis and hypotension fluids are imperative Hold diuretic #Paroxysmal atrial fibrillation On Coumadin at home, hold at this time INR 2.7, will trend On telemetry Continue amiodarone Holding beta-monica #Coronary artery disease status post stent in 2018 On aspirin and statin Holding beta-monica #Hyperglycemia Checks his glucose at home but appears to no longer be on any medications for diabetes and last A1c was 5.8 though this was in 2019 Recheck A1c Glucose checks and sliding scale insulin #Chronic lower back pain secondary to multiple lumbar compression fractures Hold opioid pain medications while altered and hypotensive #DVT ppx: Presently therapeutic on Coumadin Juhi Quinn MD Time spent in the patient's overall evaluation,decision-making process, review of diagnostic data, adjustment of management, discussion with other providers, nursing nursing and ancillary staff involved in patient's care documentation, 60 minutes Charges/Coding Visit Charges Inpatient E&M: 29860 Init Hosp L2
--- NOTE | 2022-09-07 13:43 | ECHOCS_ITS ---
Reason For Study: CHF Procedure This was a 2D Doppler, Color Flow transthoracic echocardiogram. The study was technically difficult. Contrast injection was performed. Exam performed portable in ICU/CCU. Left Ventricle Normal LV size. Left ventricular systolic function is normal. The estimated ejection fraction is 55 %. No regional wall motion abnormalities noted. Right Ventricle Normal RV size. Normal systolic function. Atria Normal left atrium. Normal right atrium. Mitral Valve Normal mitral valve. Tricuspid Valve Normal tricuspid valve. Aortic Valve Trisinus/trileaflet aortic valve. Pulmonic Valve The pulmonic valve is not well visualized. Great Vessels Normal aortic root. The pulmonary artery is normal size. Normal inferior vena cava. Pericardium/Pleural No pericardial effusion. Medication Diluted definity 3ml given slow IV push to enhance endocardial definition. MMode/2D Measurements & Calculations LVIDd: 4.4 cm IVSd: 1.0 cm LA dimension: 3.9 cm LVIDs: 3.1 cm LVPWd: 1.0 cm FS: 27.9 % LAV(MOD-bp): 41.6 ml LA A4 area: 14.7 cm2 RA A4 area: 12.6 cm2 LAV(MOD-bp) Indexed: 19.4 ml/m2 LAV(MOD-sp2): 49.5 ml LAV(MOD-sp4): 32.3 ml Doppler Measurements & Calculations MV E max dot: 113.3 cm/sec MV V2 max: 111.4 cm/sec Ao V2 max: 121.8 cm/sec MV max P.0 mmHg Ao max P.0 mmHg MV V2 mean: 43.3 cm/sec Ao V2 mean: 82.5 cm/sec MV mean P.1 mmHg Ao mean P.0 mmHg MV V2 VTI: 25.6 cm Ao V2 VTI: 19.6 cm AV (velocity ratio): 0.76 LV V1 max: 89.8 cm/sec PA V2 max: 79.7 cm/sec TR max dot: 245.7 cm/sec LV V1 max P.2 mmHg PA V2 mean: 59.0 cm/sec TR max P.1 mmHg LV V1 mean P.9 mmHg LV V1 mean: 65.0 cm/sec LV V1 VTI: 15.0 cm ECHO/Echo Complete W/ Contrast Interpretation Summary Normal LV size. Left ventricular systolic function is normal. The estimated ejection fraction is 55 %. The study was technically limited. Ordering Physician: Juhi Quinn Performed By: Jan Mcneil RCS
[2022-09-07 14:11] LABS: Reflex Lactate? Y
--- NOTE | 2022-09-07 14:26 | PCM.RX.CS ---
Consult Pharmacy has been consulted to manage selected antiobiotic: Vancomycin Type of Consult: New start Suspected Infection: Sepsis Labs: Sodium 139 mmol/L (136-145) 09/07/22 09:55 Potassium 4.9 mmol/L (3.5-5.1) 09/07/22 09:55 Chloride 104 mmol/L (98-107) 09/07/22 09:55 Carbon Dioxide 23.0 mmol/L (21.0-32.0) 09/07/22 09:55 Anion Gap 12 (5-15) 09/07/22 09:55 BUN 44 mg/dL (7-18) H 09/07/22 09:55 Creatinine 2.95 mg/dL (0.70-1.30) H 09/07/22 09:55 Est GFR (MDRD) Af Amer 27 mL/min (>60) L 09/07/22 09:55 Est GFR (MDRD) Non-Af 22 mL/min (>60) L 09/07/22 09:55 BUN/Creatinine Ratio 14.9 RATIO (10-20) 09/07/22 09:55 Glucose 159 mg/dL (74-106) H 09/07/22 09:55 Goal Trough: 15-20 mcg/mL Pharmacy Plan for Drug Dosing: NEW START IV VANCOMYCIN Consulting Physician: Dr. Quinn Indication: Sepsis secondary to cellulitis Goal Trough: 15-20 SrCr: 2.95 (NOTE: was 2.13 on 09/06, 1.78 on 08/24) CrCl: < 20mL/min Comments: Patient had initial dose of vancomycin 2g IV x1 ordered and administered in ED 09/07 @1223 Vancomycin Dose: Patient with significant increase in SCr (see above for trend over the past month). Sandra to increase in SCr, will not schedule vancomycin dosing at this time. Will plan on getting a RANDOM vancomycin trough tomorrow with AM labs due to renal impairment and dose based on levels until SCr improves. HOLD scheduled dosing at this time. Pending Level: *RANDOM* level 09/08/22 with AM labs Pharmacy Service will continue to monitor and adjust dosing as required.
--- NOTE | 2022-09-07 14:46 | EX.PCM.CONCC ---
Assessment & Plan Assessment/Plan (1) Severe sepsis: (2) CKD (chronic kidney disease), stage III: (3) Cellulitis of left lower leg: PLAN: Plan RECOMMENDATIONS: 1. Continue empiric antibiotics pending cultures 2. Hold on additional IV fluids 3. BiPAP breaks as tolerated 4. MRI once hemodynamically stable to evaluate for osteomyelitis 5. Continue BiPAP with sleep and rescue 6. Wean oxygen as tolerated 7. Hold beta-monica given marginal blood pressures IMPRESSIONS: 1. Severe sepsis secondary to left lower leg cellulitis Patient with leukocytosis, elevated lactate and evidence of endorgan damage with acute kidney injury and metabolic encephalopathy. Patient has received approximate 1-1/2 L of IV fluids and blood pressure is significantly improved. Respiratory status remains marginal requiring BiPAP rescue, improving lactate, normalization of blood pressures and BNP is elevated with diastolic dysfunction on recent echocardiogram. We will hold on additional fluids for now. Cannot exclude the need for pressures over the next 24 to 48 hours. Work-up for necrotizing fasciitis appears to be negative, but reasonable to continue clindamycin for 24 hours pending cultures and response to therapy 2. Metabolic encephalitis Clinical suspicion for decreased mental status secondary to problem #1. Patient did not have a blood gas prior to BiPAP therapy, but has improved significantly following the addition of BiPAP. Patient can obtain an MRI when more hemodynamically stable. Patient is not a candidate for tPA given delayed presentation. Reasonable to get echocardiogram and therapies involved 3. 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 Plasencia at baseline she has been consulted. Baseline creatinine appears to be around 2 and patient presented with a creatinine of almost 3. Clinical suspicion this is secondary to problem #1. No indication for renal replacement therapy at this time. Will attempt to avoid nephrotoxic agents. 4. Acute on chronic diastolic CHF/paroxysmal A. fib/coronary artery disease Patient on Coumadin at baseline. Coumadin should be held as INR will be prolonged given antibiotics. Okay to continue with amiodarone, but would hold beta-monica as patient may require pressors. BNP is elevated to 500, but need to hold diuretics secondary to problem #1. Do anticipate patient's respiratory status may decline rapidly given diastolic dysfunction 5. Acute hypoxic respiratory failure secondary problem #4/KIM Patient did not have significant infiltrates on chest x-ray, but clinical picture is consistent with diastolic CHF. Patient with restriction on previous PFT, but diffusion capacity was relatively preserved. Patient's AA gradient appears to be improving with positive pressure indicating a component of pulmonary edema. 6. Hyperglycemia/chronic pain/advanced age/obesity Complicates care, management, recovery and prognosis. We will need to watch blood sugars closely as these may be elevated given the acute status. Would avoid opiates if possible as this can complicate respiratory status and response to BiPAP HPI Consult Data Date of Consult: 09/07/22 HPI Narrative HPI Narrative: JOSE A STEIN is a 81 M, with past medical history listed below, who presents to [facility] on 09/07/2022 secondary to a change in mental status. Patient reportedly was in the emergency department last evening and had a small area of redness on his left lower extremity. Patient reportedly arrived home approximately 2 AM with antibiotics. However, when attempting to wake him up this morning patient was unresponsive. EMS was called and the patient was noted to be in the 70s on saturation of room air. Patient was placed on a nonrebreather. Blood sugar was normal at that time. Patient also had some left-sided weakness that was noted 7 hours prior to calling EMS. Patient does have a history of obstructive sleep apnea is reportedly compliant with CPAP therapy at baseline. Patient also carries a diagnosis of congestive heart failure and reportedly has lower extremity edema consistently. In the ER, patient was afebrile, but tachypneic at 22 breaths/min. Patient was requiring a nonrebreather to maintain saturations. Patient was subsequently placed on BiPAP with improvement in overall condition. Laboratory data showed a white blood cell count of 13.4, hemoglobin of 13.8 and platelets of 143. INR was elevated at 2.7 and creatinine was 2.95. Liver function studies were unremarkable. Lactate was elevated at 5 and BNP was elevated at 508. ABG done on BiPAP showed partially compensated metabolic acidosis with increased AA gradient. Chest x-ray shows some basilar atelectasis and a CT of the head showed chronic involutional changes. Patient was initially given fluids cautiously secondary to his history of CHF with increased BNP. However, patient became progressively hypotensive and ended up requiring all 30 cc/kg. Patient was evaluated by the hospitalist and there was concern for necrotizing fasciitis. Patient was taken to the CT scan and then to the intensive care unit. On presentation to the intensive care unit, patient was on BiPAP and appeared to be more appropriate. Patient states that he had significant worsening in his left lower extremity over the previous 4 hours. Patient states it is tender to the touch, but does not hurt at rest. Patient does state that the blister is new. Patient states his breathing was comfortable while on BiPAP. Review of systems otherwise negative from a constitutional, HEENT, respiratory, cardiovascular, GI, genitourinary, musculoskeletal, skin, neurologic, psychiatric and hematologic system unless stated above. 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 Long-term use of high-risk medication Lung nodule Paroxysmal A-fib Presence of stent in coronary artery (~07/04/18) Renal insufficiency Restrictive airway disease Home Medications aspirin 81 mg chewable tablet 81 mg PO DAILY@0800 health maintenance 07/02/18 [History Last Taken 09/07/22] omeprazole 20 mg capsule,delayed release 20 mg PO DAILY gerd 07/02/18 [History Last Taken 09/06/22] atorvastatin 40 mg tablet 40 mg PO QHS #30 tabs 07/29/18 [Rx Last Taken 09/05/22] cetirizine 10 mg capsule 10 mg PO HS #30 caps 08/20/19 [Rx Last Taken 09/04/22] ferrous sulfate 325 mg (65 mg iron) tablet 325 mg PO BID 02/19/20 [History Last Taken 09/06/22] metoprolol tartrate 50 mg tablet 50 mg PO BID #180 tabs 04/20/20 [Rx Last Taken 09/06/22] albuterol sulfate 90 mcg/actuation aerosol inhaler 2 puff inhalation Q4H PRN shortness of breath or wheezing #8.5 grams 10/31/21 [Rx Last Taken 2 Days Ago ~09/05/22] valsartan 80 mg tablet 80 mg PO DAILY 11/17/21 [History Last Taken 09/06/22] amiodarone 200 mg tablet 100 mg PO DAILY #15 tabs 01/09/22 [Rx Last Taken 09/06/22] amlodipine 10 mg tablet 10 mg PO DAILY 02/27/22 [History Last Taken 09/06/22] cholecalciferol (vitamin D3) 25 mcg (1,000 unit) tablet 25 mcg PO DAILY 02/27/22 [History Last Taken 09/05/22] prednisone 5 mg tablet 10 mg PO DAILY #100 tabs 03/06/22 [Rx Last Taken 09/06/22] acetaminophen 160 mg/5 mL oral elixir 500 mg PO Q4H PRN Pain 06/02/22 [History Last Taken 09/07/22] tizanidine 4 mg capsule 4 mg PO Q8H PRN Pain 06/02/22 [History Last Taken 09/06/22] hydrocodone-acetaminophen 5-325mg 5mg-325mg 1 tab PO QHS PRN Pain 08/10/22 [History Last Taken 09/07/22] clindamycin HCl 300 mg capsule 300 mg PO Q6H ANTIBIOTIC 09/07/22 [History Last Taken 09/06/22] furosemide 40 mg tablet 20 mg PO DAILY 09/07/22 [History Last Taken 09/06/22] levothyroxine 75 mcg tablet 75 mcg PO DAILY THYROID 09/07/22 [History Last Taken 09/06/22] mupirocin 2 % topical ointment 1 applic topical TID TOPICAL 09/07/22 [History Last Taken 09/06/22] warfarin 2 mg tablet 2 mg PO SUTUWEFRSA BLOOD THINNER 09/07/22 [History Last Taken 09/06/22] Allergy/AdvReac Type Severity Reaction Status Date / Time No Known Allergies Allergy Verified 09/06/22 19:59 Family History Mother Hypertension Heart disease Surgical History History of hernia repair History of hip replacement History of partial knee replacement Presence of coronary angioplasty implant and graft (~07/04/18) Social History Smoking Status: Never smoker alcohol intake: never substance use type: does not use ROS ROS Narrative See HPI Physical Exam Const alert and oriented x3 Constitutional Narrative: On BiPAP with good synchrony. Obese. General Appearance: cooperative HEENT normocephalic Eyes PERRL, EOMs intact bilaterally and conjunctivae normal Neck full ROM and no lymphadenopathy Neck Narrative: JVD noted Chest inspection of chest normal Resp normal respiratory effort Resp Narrative: Good BiPAP synchrony. Auscultation: rales diffuse and diminished lung sounds; Negative for rhonchi or wheezes Cardio S1 normal heart sound, S2 normal heart sound, no murmurs, no rub and no gallops Rhythm: abnormal rhythm irregularly irregular GI normal to inspection, nondistended, normoactive bowel sounds Extremity General Extremity: edema bilateral (3+) Skin Skin Narrative: Significant erythema, sharply demarcated on the left lower extremity. There is an area of blister formation. No crepitus is palpable. Right lower extremity has dermal atrophy, but no venous stasis changes Neuro CN's II-XII intact bilaterally, moves all extremities and no focal motor deficits Psych cooperative Mood & Affect: anxious Medical Records Data Attestation: I reviewed the patient's medical records Medical records narrative: Patient did have a cardiac catheterization in 2018 showing elevated LVEDP, EF of 50% and coronary artery disease.Patient is also had complete pulmonary function test completed in 2019 showing a moderate restrictive ventilatory defect with relatively preserved diffusion capacity. Patient does have sleep apnea and is cared for by Dr. Cruz as an outpatient. Lab / Micro Data Result Diagrams: 09/07/22 09:55 09/07/22 09:55 Labs: Laboratory Results - last 24 hr 09/07/22 09:55: WBC 13.4 H, RBC 4.44 L, Hgb 13.8, Hct 42.6, MCV 95.9 H, MCH 31.1, MCHC 32.4, RDW Std Deviation 51.4 H, RDW Coeff of Alley 14.5, Plt Count 143 L, MPV 10.0, Immature Gran % (Auto) 1.700 H, Neut % (Auto) 82.6 H, Lymph % (Auto) 10.0 L, [place] % (Auto) 5.2, Eos % (Auto) 0.1, Baso % (Auto) 0.4, Absolute Neuts (auto) 11.0 H, Absolute Lymphs (auto) 1.34, Nucleated RBC % 0.1, Differential Comment 09/07/22 09:55: PT 28.4 H, INR 2.7, APTT 49.0 H 09/07/22 09:55: Sodium 139, Potassium 4.9, Chloride 104, Carbon Dioxide 23.0, Anion Gap 12, BUN 44 H, Creatinine 2.95 H, Estim Creat Clear Calc 17.66, Est GFR (MDRD) Af Amer 27 L, Est GFR (MDRD) Non-Af 22 L, BUN/Creatinine Ratio 14.9, Glucose 159 H, Calcium 8.7, Total Bilirubin 0.70, AST 19, ALT 23, Alkaline Phosphatase 69, Troponin I High Sens 40, Total Protein 5.8 L, Albumin 2.4 L, Globulin 3.4, Albumin/Globulin Ratio 0.7 L 09/07/22 09:55: Lactic Acid 5.0 H* 09/07/22 09:55: B-Natriuretic Peptide 508.1 H 09/07/22 11:10: Urine Color Yellow, Urine Clarity Sl. Cloudy, Urine pH 5.0, Ur Specific [place] 1.010, Urine Protein 30 H, Urine Glucose (UA) 1000 H, Urine Ketones Negative, Urine Occult Blood 10 H, Urine Nitrite Negative, Urine Bilirubin Negative, Urine Urobilinogen Normal, Ur Leukocyte Esterase 500 H, Urine RBC 0-5 SEEN, Urine WBC 25-50 SEEN, Ur Squamous Epith Cells 0-5 SEEN, Urine Bacteria 1+, Hyaline Casts 0-5 SEEN, WBC Casts 0-5 SEEN, Urine Mucus 0 SEEN ABG Data ABG results: ABG 09/07/22 10:39 Specimen Type ART Sample Site L Radial pH 7.33 L Bicarbonate Actual 20.2 L Total CO2 21 Base Excess -6 L O2 Saturation 98 O2 % 100 ABG pCO2 38.4 ABG pO2 105 H Abdiel Test Positive Respiration Rate 12 O2 Delivery Device BiPAP Vent Mode BiLevel POC PEEP 8 Attestation: I personally reviewed and interpreted this ABG as follows: (See HPI) Radiology Impression Chest X-Ray 09/07/22 10:15 IMPRESSION: Mild degree of increased markings at the lung bases suggestive of bibasilar atelectasis. Electronically Signed: Bacilio Mitchell MD at 10:57 EST , Brain CT 09/07/22 10:28 IMPRESSION: Chronic involutional changes of the brain. Tiny lacunae in the right basal ganglia. Age is indeterminate. Electronically Signed: Bacilio Mitchell MD at 11:21 EST , Lower Extremity CT 09/07/22 13:10 IMPRESSION: Findings suggestive of diffuse cellulitis of the left lower extremity with overlying skin thickening and subcutaneous edema. No radiographic evidence of necrotizing fasciitis at this time. Electronically Signed: Bacilio Mitchell MD at 14:04 EST , Charges/Coding Visit Charges Inpatient E&M: 49022 Init Hosp L3
[2022-09-07 14:51] LABS: Lactic Acid 3.5 mmol/L (0.4-1.9)
--- NOTE | 2022-09-07 15:08 | CON.PCM.SX_ITS ---
Assessment & Plan Assessment/Plan (1) Cellulitis of left lower leg: PLAN: Plan Personally reviewed CT left lower extremity. No obvious fluid collection seen. Report also consistent with just cellulitis. On exam patient had no obvious fluid collection for incision and drainage as well. Small amount of purulent material was able to be expressed from one of the small open wounds this was cultured. No plans for surgical intervention currently. Continue IV antibiotics -will continue to follow. Sue Montiel M.D. Pager: [phone] [facility] [address] [place] [address], Outpatient [facility]ilion, [address] [place] [id number] Office: [phone] HPI Consult Data Date of Consult: 09/08/22 HPI Narrative HPI Narrative: JOSE A STEIN, is a 81 M who admitted to the ICU due to change of mental status, hypotension, cellulitis of left lower extremity. Patient CT left lower extremity did not show any obvious fluid collection just cellulitis. Patient was admitted to the ICU and given IV antibiotics Zosyn, vancomycin, clindamycin. Currently patient's mentation is improved from initially at home. Patient did respond to IV fluids in the ER. [facility] Medical History Atherosclerotic heart disease of [place] coronary artery without angina pectoris Atrial fibrillation and flutter Cardiomyopathy CHF (congestive heart failure) Encounter for routine circumcision Essential hypertension GERD (gastroesophageal reflux disease) HLD (hyperlipidemia) Hyperglycemia group home (current) use of anticoagulants Long-term use of high-risk medication Lung nodule Paroxysmal A-fib Presence of stent in coronary artery (~07/04/18) Renal insufficiency Restrictive airway disease Home Medications aspirin 81 mg chewable tablet 81 mg PO DAILY@0800 health maintenance 07/02/18 [History Last Taken 09/07/22] omeprazole 20 mg capsule,delayed release 20 mg PO DAILY gerd 07/02/18 [History Last Taken 09/06/22] atorvastatin 40 mg tablet 40 mg PO QHS #30 tabs 07/29/18 [Rx Last Taken 09/05/22] cetirizine 10 mg capsule 10 mg PO HS #30 caps 08/20/19 [Rx Last Taken 09/04/22] ferrous sulfate 325 mg (65 mg iron) tablet 325 mg PO BID 02/19/20 [History Last Taken 09/06/22] metoprolol tartrate 50 mg tablet 50 mg PO BID #180 tabs 04/20/20 [Rx Last Taken 09/06/22] albuterol sulfate 90 mcg/actuation aerosol inhaler 2 puff inhalation Q4H PRN shortness of breath or wheezing #8.5 grams 10/31/21 [Rx Last Taken 2 Days Ago ~09/05/22] valsartan 80 mg tablet 80 mg PO DAILY 11/17/21 [History Last Taken 09/06/22] amiodarone 200 mg tablet 100 mg PO DAILY #15 tabs 01/09/22 [Rx Last Taken 09/06/22] amlodipine 10 mg tablet 10 mg PO DAILY 02/27/22 [History Last Taken 09/06/22] cholecalciferol (vitamin D3) 25 mcg (1,000 unit) tablet 25 mcg PO DAILY 02/27/22 [History Last Taken 09/05/22] prednisone 5 mg tablet 10 mg PO DAILY #100 tabs 03/06/22 [Rx Last Taken 09/06/22] acetaminophen 160 mg/5 mL oral elixir 500 mg PO Q4H PRN Pain 06/02/22 [History Last Taken 09/07/22] tizanidine 4 mg capsule 4 mg PO Q8H PRN Pain 06/02/22 [History Last Taken 09/06/22] hydrocodone-acetaminophen 5-325mg 5mg-325mg 1 tab PO QHS PRN Pain 08/10/22 [History Last Taken 09/07/22] clindamycin HCl 300 mg capsule 300 mg PO Q6H ANTIBIOTIC 09/07/22 [History Last Taken 09/06/22] furosemide 40 mg tablet 20 mg PO DAILY 09/07/22 [History Last Taken 09/06/22] levothyroxine 75 mcg tablet 75 mcg PO DAILY THYROID 09/07/22 [History Last Taken 09/06/22] mupirocin 2 % topical ointment 1 applic topical TID TOPICAL 09/07/22 [History Last Taken 09/06/22] warfarin 2 mg tablet 2 mg PO SUTUWEFRSA BLOOD THINNER 09/07/22 [History Last Taken 09/06/22] Allergy/AdvReac Type Severity Reaction Status Date / Time No Known Allergies Allergy Verified 09/06/22 19:59 Family History Mother Hypertension Heart disease Surgical History History of hernia repair History of hip replacement History of partial knee replacement Presence of coronary angioplasty implant and graft (~07/04/18) Social History Smoking Status: Never smoker alcohol intake: never substance use type: does not use ROS Constitutional Constitutional: Denies headache(s) Eyes Eyes: Denies loss of vision ENT HEENT: Denies hearing loss Gastrointestinal Gastrointestinal: Denies abdominal pain Genitourinary Genitourinary: Denies dysuria Integumentary Integumentary: Reports non-healing lesions Psychiatric Psychiatric: Denies depression Endocrine Endocrinology: Denies palpitations Physical Exam Narrative Patient currently on BiPAP Const oriented x3 HEENT normocephalic Resp Resp Narrative: Patient on BiPAP, tachypneic Cardio Rate: regular rate GI soft to palpation, non-tender and non-distended Extremity Extremity Narrative: Left lower extremity bright red erythema/cellulitis, marker at superior ho marking extent. Patient does have several open small wounds 1 wound did have a small amount of purulent material that was able to be expressed and cultured. No obvious fluid collection on exam for incision and drainage. Skin Skin Narrative: See lower extremity exam Neuro Speech: speech normal Psych affect normal Lab / Micro Data Result Diagrams: 09/08/22 04:00 09/08/22 04:00 Labs: Laboratory Results - last 24 hr 09/07/22 09:55: WBC 13.4 H, RBC 4.44 L, Hgb 13.8, Hct 42.6, MCV 95.9 H, MCH 31 .1, MCHC 32.4, RDW Std Deviation 51.4 H, RDW Coeff of [place] 14.5, Plt Count 143 L, MPV 10.0, Immature Gran % (Auto) 1.700 H, Neut % (Auto) 82.6 H, Lymph % (Auto) 10.0 L, [place] % (Auto) 5.2, Eos % (Auto) 0.1, Baso % (Auto) 0.4, Absolute Neuts (auto) 11.0 H, Absolute Lymphs (auto) 1.34, Nucleated RBC % 0.1, Differential Comment 09/07/22 09:55: PT 28.4 H, INR 2.7, APTT 49.0 H 09/07/22 09:55: Sodium 139, Potassium 4.9, Chloride 104, Carbon Dioxide 23.0, Anion Gap 12, BUN 44 H, Creatinine 2.95 H, Estim Creat Clear Calc 17.66, Est GFR (MDRD) Af Amer 27 L, Est GFR (MDRD) Non-Af 22 L, BUN/Creatinine Ratio 14.9, Glucose 159 H, Calcium 8.7, Total Bilirubin 0.70, AST 19, ALT 23, Alkaline Phosphatase 69, Troponin I High Sens 40, Total Protein 5.8 L, Albumin 2.4 L, Globulin 3.4, Albumin/Globulin Ratio 0.7 L 09/07/22 09:55: Lactic Acid 5.0 H* 09/07/22 09:55: B-Natriuretic Peptide 508.1 H 09/07/22 11:10: Urine Color Yellow, Urine Clarity Sl. Cloudy, Urine pH 5.0, Ur Specific [place] 1.010, Urine Protein 30 H, Urine Glucose (UA) 1000 H, Urine Ketones Negative, Urine Occult Blood 10 H, Urine Nitrite Negative, Urine Bilirubin Negative, Urine Urobilinogen Normal, Ur Leukocyte Esterase 500 H, Urine RBC 0-5 SEEN, Urine WBC 25-50 SEEN, Ur Squamous Epith Cells 0-5 SEEN, Urine Bacteria 1+, Hyaline Casts 0-5 SEEN, WBC Casts 0-5 SEEN, Urine Mucus 0 SEEN 09/07/22 14:10: Lactic Acid Cancelled 09/07/22 14:10: Lactic Acid 3.5 H* ABG Data ABG results: ABG 09/07/22 10:39 Specimen Type ART Sample Site L Radial pH 7.33 L Bicarbonate Actual 20.2 L Total CO2 21 Base Excess -6 L O2 Saturation 98 O2 % 100 ABG pCO2 38.4 ABG pO2 105 H Abdiel Test Positive Respiration Rate 12 O2 Delivery Device BiPAP Vent Mode BiLevel POC PEEP 8 Radiology Impression Chest X-Ray 09/07/22 10:15 IMPRESSION: Mild degree of increased markings at the lung bases suggestive of bibasilar atelectasis. Electronically Signed: Bacilio Mitchell MD at 10:57 EST , Brain CT 09/07/22 10:28 IMPRESSION: Chronic involutional changes of the brain. Tiny lacunae in the right basal ganglia. Age is indeterminate. Electronically Signed: Bacilio Mitchell MD at 11:21 EST , Lower Extremity CT 09/07/22 13:10 IMPRESSION: Findings suggestive of diffuse cellulitis of the left lower extremity with overlying skin thickening and subcutaneous edema. No radiographic evidence of necrotizing fasciitis at this time. Electronically Signed: Bacilio Mitchell MD at 14:04 EST , Charges/Coding Visit Charges Inpatient E&M: 04047 Init Hosp L3
[2022-09-07] MEDS: Clindamycin 900 MG/50 ML BAG 75 MG IV ×2 (15:20→22:35)
[2022-09-07 17:26] LABS: Bedside Glucose 125 mg/dL (74-106)
[2022-09-07] MEDS: Hydrocortisone Sod Succinate 100 MG/2 ML Vial IV (18:33)
[2022-09-07 23:20] LABS: Bedside Glucose 133 mg/dL (74-106)
[2022-09-08] VITALS (28 sets, daily range): BP systolic 111–132; BP diastolic 56–74; PULSE 75–118; RESP 12–29; TEMP 36.7–37.9; O2SAT 88–100; BMI 39.1
[2022-09-08 04:11] LABS: Absolute Lymphocyte Count 0.38 X10^3/uL (0.83-4.51); Absolute Neutrophil Count 13.4 X10^3/uL (2.0-7.7); Basophil# 0.01 X10^3/uL; Basophil% 0.1 % (0-1); Eosinophil# 0.08 X10^3/uL; Eosinophils% 0.6 % (0-5); Lymphocyte # 0.38 X10^3/ul (0.83-4.51); Lymphocyte % 2.7 % (19-41); Mean Corp Hgb Conc 32.5 g/dL (32-36); Mean Corpuscular Hgb 30.9 pg (27.0-32.0); Mean Platelet Vol. 9.9 fl (6.2-12.0); Monocyte% 2.1 % (0-10); NRBC Flagged by Analyzer 0 % (0-5); Neutrophil # 13.39 X10^3/uL (2.7-7.7); Neutrophil % 93.7 % (47-70); POSITIVE DIFFERENTIAL YES; POSITIVE MORPHOLOGY YES; Platelet Count 113 K/mm3 (150-450); RBC Distribution Width CV 14.6 % (11.6-14.6); RBC Distribution Width SD 50.4 fl (35.1-43.9); Red Blood Count 4.21 M/mm3 (4.6-6.2); White Blood Count 14.3 K/mm3 (4.4-11.0)
[2022-09-08 04:12] LABS: Differential Indicated SCAN CRITERIA MET
[2022-09-08 04:21] LABS: International Normalized Ratio 3.6; Prothrombin Time (Protime)PT. 35.5 SECONDS (11.7-14.9)
[2022-09-08 04:30] LABS: ALB/GLOB Ratio 0.6 RATIO (0.9-2.4); AST(SGOT) 24 U/L (15-37); Alanine Aminotransfer ALT/SGPT 25 U/L (16-61); Albumin, Serum 2.1 g/dL (3.2-5.0); Alkaline Phosphatase 71 U/L (45-117); Anion Gap 10 (5-15); BUN 41 mg/dL (7-18); BUN/Creat Ratio 18.6 RATIO (10-20); Calcium,Total 8.5 mg/dL (8.5-10.1); Chloride 109 mmol/L (98-107); EST Glomerular Filtration Rate 31 mL/min (>60); Est Glom Filt Rate - Afr Amer 37 mL/min (>60); Estimated Creatinine Clearance 23.68 ml/min; Globulin 3.8 g/dL (2.2-4.2); Glucose 138 mg/dL (74-106); Potassium 4.3 mmol/L (3.5-5.1); Protein, Total 5.9 g/dL (6.4-8.2); Sodium Level 143 mmol/L (136-145)
[2022-09-08 04:31] LABS: Vancomycin, Random Level 15.5 ug/mL (0.0-15.0)
[2022-09-08 05:00] LABS: Differential Comment SCANNED
[2022-09-08] MEDS: Clindamycin 900 MG/50 ML BAG 75 MG IV ×3 (05:23→21:26)
[2022-09-08] MEDS: Levothyroxine 75 MCG Tablet PO (05:24)
[2022-09-08] MEDS: Hydrocortisone Sod Succinate 100 MG/2 ML Vial IV ×3 (05:25→21:27)
--- NOTE | 2022-09-08 07:31 | PCM.RX.CS ---
Consult Pharmacy has been consulted to manage selected antiobiotic: Vancomycin Type of Consult: Follow-up Suspected Infection: Skin/Soft tissue Prior Doses of Antibiotics Received/Current Regimen: Received 2gm iv x 1 on 09.08.22. Labs: Sodium 143 mmol/L (136-145) 09/08/22 04:00 Potassium 4.3 mmol/L (3.5-5.1) 09/08/22 04:00 Chloride 109 mmol/L (98-107) H 09/08/22 04:00 Carbon Dioxide 24.0 mmol/L (21.0-32.0) 09/08/22 04:00 Anion Gap 10 (5-15) 09/08/22 04:00 BUN 41 mg/dL (7-18) H 09/08/22 04:00 Creatinine 2.20 mg/dL (0.70-1.30) H 09/08/22 04:00 Est GFR (MDRD) Af Amer 37 mL/min (>60) L 09/08/22 04:00 Est GFR (MDRD) Non-Af 31 mL/min (>60) L 09/08/22 04:00 BUN/Creatinine Ratio 18.6 RATIO (10-20) 09/08/22 04:00 Glucose 138 mg/dL (74-106) H 09/08/22 04:00 Random Vancomycin 15.5 ug/mL (0.0-15.0) H 09/08/22 04:00 Weight used for dosin kg Estimated Creatinine Clearance: 24 ml/min Goal Trough: 15-20 mcg/mL Pharmacy Plan for Drug Dosing: Today's random level this AM was 15.5. Due to unstable renal function will continue to hold off on any scheduled dosing. A one time 1500mg will be ordered for today. Random level ordered for tomorrow. Pharmacy Service will continue to monitor and adjust dosing as required. Follow-Up Labs: Trough Vancomycin - random .11.26 @0600
--- NOTE | 2022-09-08 07:41 | PCM.PN.HOSP ---
Subjective Subjective More awake and alert today, did initially ask over in his kitchen but was very quickly reoriented Objective Data Objective Data Vital Signs: Vital Signs Temp Pulse Resp BP Pulse Ox O2 Del Method FiO2 100.3 F H 75 24 H 118/57 L 97 Bi-pap 30 09/08/22 06:00 09/08/22 06:00 09/08/22 06:00 09/08/22 06:00 09/08/22 06:00 09/08/22 06:00 09/08/22 06:00 Oxygen Delivery Method Bi-pap Weight: 105.415 kg Body Mass Index (BMI) 39.1 Intake & Output: Intake and Output for Last 24 Hours 09/06/22 09/07/22 09/08/22 23:59 23:59 23:59 Intake Total 2740 / 2740 100 / 100 Output Total 1450 / 1450 750 / 750 Balance 1290 / 1290 -650 / -650 Lab / Micro Data Result Diagrams: 09/08/22 04:00 09/08/22 04:00 Labs: Laboratory Results - last 24 hr 09/07/22 09:55: WBC 13.4 H, RBC 4.44 L, Hgb 13.8, Hct 42.6, MCV 95.9 H, MCH 31.1, MCHC 32.4, RDW Std Deviation 51.4 H, RDW Coeff of Alley 14.5, Plt Count 143 L, MPV 10.0, Immature Gran % (Auto) 1.700 H, Neut % (Auto) 82.6 H, Lymph % (Auto) 10.0 L, [place] % (Auto) 5.2, Eos % (Auto) 0.1, Baso % (Auto) 0.4, Absolute Neuts (auto) 11.0 H, Absolute Lymphs (auto) 1.34, Nucleated RBC % 0.1, Differential Comment 09/07/22 09:55: PT 28.4 H, INR 2.7, APTT 49.0 H 09/07/22 09:55: Sodium 139, Potassium 4.9, Chloride 104, Carbon Dioxide 23.0, Anion Gap 12, BUN 44 H, Creatinine 2.95 H, Estim Creat Clear Calc 17.66, Est GFR (MDRD) Af Amer 27 L, Est GFR (MDRD) Non-Af 22 L, BUN/Creatinine Ratio 14.9, Glucose 159 H, Calcium 8.7, Total Bilirubin 0.70, AST 19, ALT 23, Alkaline Phosphatase 69, Troponin I High Sens 40, Total Protein 5.8 L, Albumin 2.4 L, Globulin 3.4, Albumin/Globulin Ratio 0.7 L 09/07/22 09:55: Lactic Acid 5.0 H* 09/07/22 09:55: B-Natriuretic Peptide 508.1 H 09/07/22 11:10: Urine Color Yellow, Urine Clarity Sl. Cloudy, Urine pH 5.0, Ur Specific [place] 1.010, Urine Protein 30 H, Urine Glucose (UA) 1000 H, Urine Ketones Negative, Urine Occult Blood 10 H, Urine Nitrite Negative, Urine Bilirubin Negative, Urine Urobilinogen Normal, Ur Leukocyte Esterase 500 H, Urine RBC 0-5 SEEN, Urine WBC 25-50 SEEN, Ur Squamous Epith Cells 0-5 SEEN, Urine Bacteria 1+, Hyaline Casts 0-5 SEEN, WBC Casts 0-5 SEEN, Urine Mucus 0 SEEN 09/07/22 14:10: PT Cancelled, INR Cancelled, APTT Cancelled 09/07/22 14:10: Lactic Acid Cancelled 09/07/22 14:10: Lactic Acid 3.5 H* 09/07/22 17:08: POC Glucose 125 H 09/07/22 23:01: POC Glucose 133 H 09/08/22 04:00: WBC 14.3 H, RBC 4.21 L, Hgb 13.0, Hct 40.0, MCV 95.0 H, MCH 30.9, MCHC 32.5, RDW Std Deviation 50.4 H, RDW Coeff of Alley 14.6, Plt Count 113 L, MPV 9.9, Immature Gran % (Auto) 0.800, Neut % (Auto) 93.7 H, Lymph % (Auto) 2.7 L, [place] % (Auto) 2.1, Eos % (Auto) 0.6, Baso % (Auto) 0.1, Absolute Neuts (auto) 13.4 H, Absolute Lymphs (auto) 0.38 L, Nucleated RBC % 0, Differential Comment SCANNED 09/08/22 04:00: PT 35.5 H, INR 3.6 09/08/22 04:00: Sodium 143, Potassium 4.3, Chloride 109 H, Carbon Dioxide 24.0, Anion Gap 10, BUN 41 H, Creatinine 2.20 H, Estim Creat Clear Calc 23.68, Est GFR (MDRD) Af Amer 37 L, Est GFR (MDRD) Non-Af 31 L, BUN/Creatinine Ratio 18.6, Glucose 138 H, Calcium 8.5, Total Bilirubin 0.50, AST 24, ALT 25, Alkaline Phosphatase 71, Total Protein 5.9 L, Albumin 2.1 L, Globulin 3.8, Albumin/Globulin Ratio 0.6 L 09/08/22 04:00: Random Vancomycin 15.5 H ABG Data ABG results: ABG 09/07/22 10:39 Specimen Type ART Sample Site L Radial pH 7.33 L Bicarbonate Actual 20.2 L Total CO2 21 Base Excess -6 L O2 Saturation 98 O2 % 100 ABG pCO2 38.4 ABG pO2 105 H Abdiel Test Positive Respiration Rate 12 O2 Delivery Device BiPAP Vent Mode BiLevel POC PEEP 8 Radiography Diagnostic Testing: Radiology Impression Chest X-Ray 09/07/22 10:15 IMPRESSION: Mild degree of increased markings at the lung bases suggestive of bibasilar atelectasis. Electronically Signed: Bacilio Mitchell MD at 10:57 EST Reading Location ID and State: [address] / [employer] , Service support , Brain CT 09/07/22 10:28 IMPRESSION: Chronic involutional changes of the brain. Tiny lacunae in the right basal ganglia. Age is indeterminate. Electronically Signed: Bacilio Mitchell MD at 11:21 EST , Lower Extremity CT 09/07/22 13:10 IMPRESSION: Findings suggestive of diffuse cellulitis of the left lower extremity with overlying skin thickening and subcutaneous edema. No radiographic evidence of necrotizing fasciitis at this time. Electronically Signed: Bacilio Mitchell MD at 14:04 EST , Echocardiogram 09/07/22 13:43 Interpretation Summary Normal LV size. Left ventricular systolic function is normal. The estimated ejection fraction is 55 %. The study was technically limited. Ordering Physician: Juhi Quinn Performed By: Jan Mcneil RCS Physical Exam Narrative General: Alert, easily reoriented, not presently acutely distressed HEENT: Atraumatic, normocephalic, very dry lips Eyes: Anicteric, normal conjunctiva, extraocular movements grossly intact Neck: Supple Respiratory: On BiPAP, scattered wheezes Cardiovascular: Regular rate and rhythm GI: Soft, nontender, nondistended Extremities: Left extremity wrapped and weeping, rash appreciated Musculoskeletal: Moving all extremities Neuro: No overt focal neurological deficits Skin: Left lower extremity wrapped, line drawn and the erythema does seem to be receding slightly but with increased weeping Psych: Cooperative Assessment & Plan Assessment/Plan (1) Severe sepsis: (2) Cellulitis of left lower leg: (3) Change in mental status: (4) Lactic acidosis: (5) Lumbar compression fracture: (6) Presence of stent in coronary artery: (7) KIM (obstructive sleep apnea): (8) Essential hypertension: (9) GERD (gastroesophageal reflux disease): (10) Paroxysmal A-fib: (11) CHF (congestive heart failure): QUALIFIERS: Heart failure type: systolic Heart failure chronicity: chronic Qualified Code(s): I50.22 - Chronic systolic (congestive) heart failure (12) Hyperglycemia: (13) CKD (chronic kidney disease), stage III: PLAN: Plan #Severe sepsis secondary to left lower extremity cellulitis White count 13.4 with left shift, lactic acid 5.0, LILIA on CKD Likely source left lower extremity rapidly progressive cellulitis Pancultures, Vanco, Zosyn, clindamycin added CT of lower extremity to assess for air though no crepitus felt on exam Did notify surgery and ICU team Patient hypotensive in ED but has not yet completed fluid resuscitation's at this time cannot recall the septic shock Pancultured 2/3: Is improving, continue vancomycin, Zosyn, clinda at this time. Can likely DC clinda tomorrow. Cultures pending. CT without air or obvious fluid collection so no acute intervention at this time, does seem to be improving. White blood cell slightly increased however has been started on stress dose steroids. #Chronic asthma On prednisone 10 mg chronically, this has been attempted to be weaned as an outpatient however has been unsuccessful Stress dose steroids. We will add breathing treatments as he has wheezes and has been had difficulty weaning off BiPAP, also going to be challenged with diuretics which I suspect will also improve respiratory status #Altered mental status Likely due to to his severe sepsis CT of the head with chronic involutional changes of the brain and tiny lacunae in the right basal ganglia which age was indeterminant Unable to participate in neurologic exam and last known normal was at 2 AM and out of the window for any intervention Stroke call not been called We will obtain MRI Echo N.p.o. PT/OT/speech 2/3: Significantly improved, easily reoriented. Was not stable for MRI yesterday, hold today and can consider tomorrow. #LILIA on CKD stage IIIb Likely due to sepsis Receiving fluids Did obtain contrasted CT scan was lower extremity to rule out necrotizing fasciitis so this may transiently worsen He follows with Dr. Plasencia with nephrology, nephrology consulted Avoid nephrotoxic agents 2/3: Creatinine did actually improved to 2.2 today, nephrology was consulted on admission #Reported history of heart failure Most recent echocardiogram with EF within normal limits and indeterminate diastolic dysfunction Repeating at this time Did have BNP of 500 but chest x-ray nonspecific and given his severe sepsis and hypotension fluids are imperative Hold diuretic 2/3: echo on 09/07 with EF of 55% but study was technically limited #Paroxysmal atrial fibrillation On Coumadin at home, hold at this time INR 2.7, will trend On telemetry Continue amiodarone Holding beta-monica 2/3: Continue amiodarone, beta-blockers been held due to hypotension, INR 3.6 today. Continue to hold Coumadin #Coronary artery disease status post stent in 2018 On aspirin and statin Holding beta-monica #Hyperglycemia Checks his glucose at home but appears to no longer be on any medications for diabetes and last A1c was 5.8 though this was in 2019 Recheck A1c Glucose checks and sliding scale insulin 2/3: Hemoglobin A1c pending, glucose minimally elevated, once out of critical. Will likely be able to DC glucose checks and insulin #Chronic lower back pain secondary to multiple lumbar compression fractures Hold opioid pain medications while altered and hypotensive #DVT ppx: Presently therapeutic on Coumadin, Coumadin held Juhi Quinn MD Time spent in the patient's overall evaluation,decision-making process, review of diagnostic data, adjustment of management, discussion with other providers, nursing nursing and ancillary staff involved in patient's care documentation, 35 minutes Charges/Coding Visit Charges Inpatient E&M: 53426 Subs Hosp L2
--- NOTE | 2022-09-08 07:42 | PN.CC_ITS ---
Assessment & Plan Assessment/Plan (1) Severe sepsis: (2) CKD (chronic kidney disease), stage III: (3) Cellulitis of left lower leg: PLAN: Plan RECOMMENDATIONS: 1. Continue empiric antibiotics pending cultures. Likely discontinue clindamycin tomorrow if continues to improve 2. Challenge with diuretics 3. BiPAP breaks as tolerated 4. MRI once hemodynamically stable. Likely hold today. 5. Continue BiPAP with sleep and rescue 6. Wean oxygen as tolerated 7. Hold beta-monica given marginal blood pressures IMPRESSIONS: 1. Severe sepsis secondary to left lower leg cellulitis Patient with leukocytosis, elevated lactate and evidence of endorgan damage with acute kidney injury and metabolic encephalopathy. Patient has received approximate 1-1/2 L of IV fluids and blood pressure is significantly improved. Patient did not require pressor therapy overnight. Full fluid bolus was not given secondary to congestive heart failure, respiratory compromise and improvement in blood pressures. Work-up for necrotizing fasciitis appears to be negative, but reasonable to continue clindamycin for 24 hours pending cultures and response to therapy. 2. Metabolic encephalitis Clinical suspicion for decreased mental status secondary to problem #1. Patient did not have a blood gas prior to BiPAP therapy, but has improved significantly following the addition of BiPAP. Patient can obtain an MRI when more hemodynamically stable. Patient is not a candidate for tPA given delayed presentation. Reasonable to get echocardiogram and therapies involved 3. 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 Plasencia at baseline she has been consulted. Baseline creatinine appears to be around 2 and patient presented with a creatinine of almost 3. Clinical suspicion this is secondary to problem #1. No indication for renal replacement therapy at this time. Will attempt to avoid nephrotoxic agents. Given patient's respiratory issues, will attempt to challenge with diuretics 4. Acute on chronic diastolic CHF/paroxysmal A. fib/coronary artery disease Patient on Coumadin at baseline. Coumadin should be held as INR will be prolonged given antibiotics. No indication for active reversal of INR at this time okay to continue with amiodarone, but would hold beta-monica as patient may require pressors. BNP is elevated to 500, but need to hold diuretics secondary to problem #1. Do anticipate patient's respiratory status may decline rapidly given diastolic dysfunction 5. Acute hypoxic respiratory failure secondary problem #4/KIM Patient did not have significant infiltrates on chest x-ray, but clinical picture is consistent with diastolic CHF. Patient with restriction on previous PFT, but diffusion capacity was relatively preserved. Patient's AA gradient appears to be improving with positive pressure indicating a component of pulmonary edema. 6. Hyperglycemia/chronic pain/advanced age/obesity Complicates care, management, recovery and prognosis. We will need to watch blood sugars closely as these may be elevated given the acute status. Would avoid opiates if possible as this can complicate respiratory status and response to BiPAP Subjective Subjective Patient did okay overnight from a hemodynamic standpoint. No pressors have been required. Patient has only taken mild breaks off of BiPAP. Fever was noted. Patient's INR is elevated, but no clinical bleeding has been reported. Patient has had significant weeping from the left lower extremity requiring frequent dressing changes. Nursing did report the patient had some confusion overnight Objective Data Objective Data Vital Signs: Vital Signs Temp Pulse Resp BP Pulse Ox O2 Del Method FiO2 37.9 C H 75 24 H 118/57 L 97 Bi-pap 30 09/08/22 06:00 09/08/22 06:00 09/08/22 06:00 09/08/22 06:00 09/08/22 06:00 09/08/22 06:00 09/08/22 06:00 Oxygen Delivery Method Bi-pap Weight: 105.415 kg Body Mass Index (BMI) 39.1 Intake & Output: Intake and Output for Last 24 Hours 09/06/22 09/07/22 09/08/22 23:59 23:59 23:59 Intake Total 2740 / 2740 100 / 100 Output Total 1450 / 1450 750 / 750 Balance 1290 / 1290 -650 / -650 Lab / Micro Data Attestation: I reviewed the patient's lab results. Result Diagrams: 09/08/22 04:00 09/08/22 04:00 Labs: Laboratory Results - last 24 hr 09/07/22 09:55: WBC 13.4 H, RBC 4.44 L, Hgb 13.8, Hct 42.6, MCV 95.9 H, MCH 31.1, MCHC 32.4, RDW Std Deviation 51.4 H, RDW Coeff of Alley 14.5, Plt Count 143 L, MPV 10.0, Immature Gran % (Auto) 1.700 H, Neut % (Auto) 82.6 H, Lymph % (Auto) 10.0 L, [place] % (Auto) 5.2, Eos % (Auto) 0.1, Baso % (Auto) 0.4, Absolute Neuts (auto) 11.0 H, Absolute Lymphs (auto) 1.34, Nucleated RBC % 0.1, Diff erential Comment 09/07/22 09:55: PT 28.4 H, INR 2.7, APTT 49.0 H 09/07/22 09:55: Sodium 139, Potassium 4.9, Chloride 104, Carbon Dioxide 23.0, Anion Gap 12, BUN 44 H, Creatinine 2.95 H, Estim Creat Clear Calc 17.66, Est GFR (MDRD) Af Amer 27 L, Est GFR (MDRD) Non-Af 22 L, BUN/Creatinine Ratio 14.9, Glu cose 159 H, Calcium 8.7, Total Bilirubin 0.70, AST 19, ALT 23, Alkaline Phosphatase 69, Troponin I High Sens 40, Total Protein 5.8 L, Albumin 2.4 L, Globulin 3.4, Albumin/Globulin Ratio 0.7 L 09/07/22 09:55: Lactic Acid 5.0 H* 09/07/22 09:55: B-Natriuretic Peptide 508.1 H 09/07/22 11:10: Urine Color Yellow, Urine Clarity Sl. Cloudy, Urine pH 5.0, Ur Specific [place] 1.010, Urine Protein 30 H, Urine Glucose (UA) 1000 H, Urine Ketones Negative, Urine Occult Blood 10 H, Urine Nitrite Negative, Urine Bilirubin Negative, Urine Urobilinogen Normal, Ur Leukocyte Esterase 500 H, Urine RBC 0-5 SEEN, Urine WBC 25-50 SEEN, Ur Squamous Epith Cells 0-5 SEEN, Urine Bacteria 1+, Hyaline Casts 0-5 SEEN, WBC Casts 0-5 SEEN, Urine Mucus 0 SEEN 09/07/22 14:10: PT Cancelled, INR Cancelled, APTT Cancelled 09/07/22 14:10: Lactic Acid Cancelled 09/07/22 14:10: Lactic Acid 3.5 H* 09/07/22 17:08: POC Glucose 125 H 09/07/22 23:01: POC Glucose 133 H 09/08/22 04:00: WBC 14.3 H, RBC 4.21 L, Hgb 13.0, Hct 40.0, MCV 95.0 H, MCH 30.9, MCHC 32.5, RDW Std Deviation 50.4 H, RDW Coeff of [place]ley 14.6, Plt Count 113 L, MPV 9.9, Immature Gran % (Auto) 0.800, Neut % (Auto) 93.7 H, Lymph % (Auto) 2.7 L, [place] % (Auto) 2.1, Eos % (Auto) 0.6, Baso % (Auto) 0.1, Absolute Neuts (auto) 13.4 H, Absolute Lymphs (auto) 0.38 L, Nucleated RBC % 0, Differential Comment SCANNED 09/08/22 04:00: PT 35.5 H, INR 3.6 09/08/22 04:00: Sodium 143, Potassium 4.3, Chloride 109 H, Carbon Dioxide 24.0, Anion Gap 10, BUN 41 H, Creatinine 2.20 H, Estim Creat Clear Calc 23.68, Est GFR (MDRD) Af Amer 37 L, Est GFR (MDRD) Non-Af 31 L, BUN/Creatinine Ratio 18.6, Glucose 138 H, Calcium 8.5, Total Bilirubin 0.50, AST 24, ALT 25, Alkaline P hosphatase 71, Total Protein 5.9 L, Albumin 2.1 L, Globulin 3.8, Albumin/Globulin Ratio 0.6 L 09/08/22 04:00: Random Vancomycin 15.5 H ABG Data ABG results: ABG 09/07/22 10:39 Specimen Type ART Sample Site L Radial pH 7.33 L Bicarbonate Actual 20.2 L Total CO2 21 Base Excess -6 L O2 Saturation 98 O2 % 100 ABG pCO2 38.4 ABG pO2 105 H Abdiel Test Positive Respiration Rate 12 O2 Delivery Device BiPAP Vent Mode BiLevel POC PEEP 8 Radiography Diagnostic Testing: Radiology Impression Chest X-Ray 09/07/22 10:15 IMPRESSION: Mild degree of increased markings at the lung bases suggestive of bibasilar atelectasis. Electronically Signed: Bacilio Mitchell MD at 10:57 EST , Brain CT 09/07/22 10:28 IMPRESSION: Chronic involutional changes of the brain. Tiny lacunae in the right basal ganglia. Age is indeterminate. Electronically Signed: Bacilio Mitchell MD at 11:21 EST , Lower Extremity CT 09/07/22 13:10 IMPRESSION: Findings suggestive of diffuse cellulitis of the left lower extremity with overlying skin thickening and subcutaneous edema. No radiographic evidence of necrotizing fasciitis at this time. Electronically Signed: Bacilio Mitchell MD at 14:04 EST , Echocardiogram 09/07/22 13:43 Interpretation Summary Normal LV size. Left ventricular systolic function is normal. The estimated ejection fraction is 55 %. The study was technically limited. Ordering Physician: Juhi Quinn Performed By: Jan Mcneil RCS Physical Exam Const alert and oriented x3 Constitutional Narrative: On BiPAP with good synchrony. Obese. General Appearance: cooperative HEENT normocephalic Eyes PERRL, EOMs intact bilaterally and conjunctivae normal Neck full ROM and no lymphadenopathy Neck Narrative: JVD noted Chest inspection of chest normal Resp normal respiratory effort Resp Narrative: Good BiPAP synchrony. Auscultation: rales diffuse and diminished lung sounds; Negative for rhonchi or wheezes Cardio S1 normal heart sound, S2 normal heart sound, no murmurs, no rub and no gallops Rhythm: abnormal rhythm irregularly irregular GI normal to inspection, nondistended, normoactive bowel sounds Extremity Extremity Narrative: Significant weeping from the left lower extremity with serosanguineous drainage noted on Curlex General Extremity: edema bilateral (3+) Skin Skin Narrative: Significant erythema, sharply demarcated on the left lower extremity. There is an area of blister formation. No crepitus is palpable. Right lower extremity has dermal atrophy, but no venous stasis changes Neuro CN's II-XII intact bilaterally, moves all extremities and no focal motor deficits Psych cooperative Mood & Affect: flat affect Charges/Coding Visit Charges Inpatient E&M: 99468 Subs Hosp L3
[2022-09-08] MEDS: Aspirin 81 MG TAB.CHEW PO (08:41)
[2022-09-08] MEDS: Pantoprazole Sodium 20 MG Tablet PO (08:41)
[2022-09-08] MEDS: Amiodarone 200 MG Tablet 100 MG PO (08:41)
[2022-09-08 08:56] LABS: Bedside Glucose 146 mg/dL (74-106)
[2022-09-08 10:49] LABS: Hemoglobin A1c 8.5 % (3.8-5.6)
[2022-09-08 11:46] LABS: Bedside Glucose 169 mg/dL (74-106)
--- NOTE | 2022-09-08 11:49 | PCM.PN.SRG ---
Subjective Subjective Patient currently gets dressing change by [facility] wound nurse. She states there is quite a bit of drainage but it was not purulent prior to changing. Objective Data Objective Data Vital Signs: Vital Signs Temp Pulse Resp BP Pulse Ox O2 Del Method O2 Flow Rate 99.9 F H 78 20 H 124/58 H 100 Nasal Cannula 4 09/08/22 11:00 09/08/22 11:00 09/08/22 11:00 09/08/22 11:00 09/08/22 11:00 09/08/22 11:31 09/08/22 11:31 FiO2 30 09/08/22 07:00 Oxygen Flow Rate (L/min) 4 Oxygen Delivery Method Nasal Cannula Weight: 232 lb 6.4 oz Body Mass Index (BMI) 39.1 Intake & Output: Intake and Output for Last 24 Hours 09/06/22 09/07/22 09/08/22 23:59 23:59 23:59 Intake Total 2740 / 2740 210 / 210 Output Total 1450 / 1450 1250 / 1250 Balance 1290 / 1290 -1040 / -1040 Lab / Micro Data Result Diagrams: 09/08/22 04:00 09/08/22 04:00 Labs: Laboratory Results - last 24 hr 09/07/22 14:10: PT Cancelled, INR Cancelled, APTT Cancelled 09/07/22 14:10: Lactic Acid Cancelled 09/07/22 14:10: Lactic Acid 3.5 H* 09/07/22 17:08: POC Glucose 125 H 09/07/22 23:01: POC Glucose 133 H 09/08/22 04:00: WBC 14.3 H, RBC 4.21 L, Hgb 13.0, Hct 40.0, MCV 95.0 H, MCH 30.9, MCHC 32.5, RDW Std Deviation 50.4 H, RDW Coeff of [place]ley 14.6, Plt Count 113 L, MPV 9.9, Immature Gran % (Auto) 0.800, Neut % (Auto) 93.7 H, Lymph % (Auto) 2.7 L, [place] % (Auto) 2.1, Eos % (Auto) 0.6, Baso % (Auto) 0.1, Absolute Neuts (auto) 13.4 H, Absolute Lymphs (auto) 0.38 L, Nucleated RBC % 0, Differential Comment SCANNED 09/08/22 04:00: PT 35.5 H, INR 3.6 09/08/22 04:00: Sodium 143, Potassium 4.3, Chloride 109 H, Carbon Dioxide 24.0, Anion Gap 10, BUN 41 H, Creatinine 2.20 H, Estim Creat Clear Calc 23.68, Est GFR (MDRD) Af Amer 37 L, Est GFR (MDRD) Non-Af 31 L, BUN/Creatinine Ratio 18.6, Glucose 138 H, Calcium 8.5, Total Bilirubin 0.50, AST 24, ALT 25, Alkaline Phosphatase 71, Total Protein 5.9 L, Albumin 2.1 L, Globulin 3.8, Albumin/Globulin Ratio 0.6 L 09/08/22 04:00: Hemoglobin A1c 8.5 H 09/08/22 04:00: Random Vancomycin 15.5 H 09/08/22 08:24: POC Glucose 146 H 09/08/22 11:27: POC Glucose 169 H Micro: Microbiology 09/07/22 16:10 Wound - Leg, Left Gram Stain - Final Radiography Diagnostic Testing: Radiology Impression Lower Extremity CT 09/07/22 13:10 IMPRESSION: Findings suggestive of diffuse cellulitis of the left lower extremity with overlying skin thickening and subcutaneous edema. No radiographic evidence of necrotizing fasciitis at this time. Electronically Signed: Bacilio Mitchell MD at 14:04 EST Reading Location ID and State: [address] [place] [address] , Service support , Echocardiogram 09/07/22 13:43 Interpretation Summary Normal LV size. Left ventricular systolic function is normal. The estimated ejection fraction is 55 %. The study was technically limited. Ordering Physician: Juhi Quinn Performed By: Jan Mcneil RCS Physical Exam Const oriented x3 and no apparent distress Resp Resp Narrative: Tachypneic, no obvious increased work of breathing Cardio regular rate GI soft to palpation and non-tender Extremity Extremity Narrative: Left lower extremity improving erythema at previous at upper ho, patient has about 3 small open wounds no current active drainage but there was drainage on the dressing, patient had a larger blister which Margarita did release the fluid. Redressed with Adaptic and Kerlix. Assessment & Plan Assessment/Plan (1) Cellulitis of left lower leg: PLAN: Plan On exam no obvious fluid collection requiring surgical intervention. Patient does have some open draining wounds. Patient's previous culture gram stain does show gram-positive cocci, gram-negative rods await culture. Continue broad-spectrum antibiotics. Dr. Giles will be rounding over the weekend and next week. Sue Montiel M.D. Pager: [phone] [facility] [address] [place] [address], [facility], [address] [place] [address] Office: [phone] Charges/Coding Visit Charges Inpatient E&M: 35461 Subs Hosp L3
--- NOTE | 2022-09-08 12:05 | WOUNDNOTE ---
wound photo: left lower leg
--- NOTE | 2022-09-08 12:05 | WOUNDNOTE ---
wound photo: left lower leg
--- NOTE | 2022-09-08 12:23 | CON.PCM.RE_ITS ---
Assessment & Plan Assessment/Plan (1) CKD (chronic kidney disease), stage III: PLAN: baseline creatinine 1.5-2.0 from hypertensive, diabetic nephropathy. Hold vasoactive medications, ARB therapy, diuretics (2) Acute kidney injury superimposed on CKD: PLAN: due to sepsis, hypotension. Creatinine improved from 2.9 to 2.20 today with hydration. Recent iv contrast exposure on 09/07. BP stable on stress dose steroids. Avoid nephrotoxins. (3) Cellulitis of left lower leg: PLAN: iv antibx renal dose (4) Sepsis: PLAN: await cx, leukocytosis, low grade fever (5) Lactic acidosis: (6) Hypoxia: (7) Paroxysmal A-fib: (8) Essential hypertension: (9) Diabetes mellitus: (10) Morbid obesity: HPI Consult Data Date of Consult: 09/08/22 HPI Narrative Reason for Consultation: acute on CKD stage 3 HPI Narrative: JOSE A STEIN, is a 81 M who presents to [facility] for increased left leg redness, pain, swelling x5 days treated with antibiotics as outpt. He is on iv antibiotics for sepsis with low BP, cellulitis, lactic acidosis. He had an intermittent cough with occasional wheezing. He has underlying asthma. Pt denied fever, chills. NO change in appetite. Admitted with low grade fever, leukocytosis. He has CKD stage 3B from DMN with baseline creatinine 1.5 to 2.0. Creatinine 2.9 on admit improved to 2.20 today. Urine output good. 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 Long-term use of high-risk medication Lung nodule Paroxysmal A-fib Presence of stent in coronary artery (~07/04/18) Renal insufficiency Restrictive airway disease Home Medications aspirin 81 mg chewable tablet 81 mg PO DAILY@0800 health maintenance 07/02/18 [History Last Taken 09/07/22] omeprazole 20 mg capsule,delayed release 20 mg PO DAILY gerd 07/02/18 [History Last Taken 09/06/22] atorvastatin 40 mg tablet 40 mg PO QHS #30 tabs 07/29/18 [Rx Last Taken 09/05/22] cetirizine 10 mg capsule 10 mg PO HS #30 caps 08/20/19 [Rx Last Taken 09/04/22] ferrous sulfate 325 mg (65 mg iron) tablet 325 mg PO BID 02/19/20 [History Last Taken 09/06/22] metoprolol tartrate 50 mg tablet 50 mg PO BID #180 tabs 04/20/20 [Rx Last Taken 09/06/22] albuterol sulfate 90 mcg/actuation aerosol inhaler 2 puff inhalation Q4H PRN shortness of breath or wheezing #8.5 grams 10/31/21 [Rx Last Taken 2 Days Ago ~09/05/22] valsartan 80 mg tablet 80 mg PO DAILY 11/17/21 [History Last Taken 09/06/22] amiodarone 200 mg tablet 100 mg PO DAILY #15 tabs 01/09/22 [Rx Last Taken 09/06/22] amlodipine 10 mg tablet 10 mg PO DAILY 02/27/22 [History Last Taken 09/06/22] cholecalciferol (vitamin D3) 25 mcg (1,000 unit) tablet 25 mcg PO DAILY 02/27/22 [History Last Taken 09/05/22] prednisone 5 mg tablet 10 mg PO DAILY #100 tabs 03/06/22 [Rx Last Taken 09/06/22] acetaminophen 160 mg/5 mL oral elixir 500 mg PO Q4H PRN Pain 06/02/22 [History Last Taken 09/07/22] tizanidine 4 mg capsule 4 mg PO Q8H PRN Pain 06/02/22 [History Last Taken 09/06/22] hydrocodone-acetaminophen 5-325mg 5mg-325mg 1 tab PO QHS PRN Pain 08/10/22 [History Last Taken 09/07/22] clindamycin HCl 300 mg capsule 300 mg PO Q6H ANTIBIOTIC 09/07/22 [History Last Taken 09/06/22] furosemide 40 mg tablet 20 mg PO DAILY 09/07/22 [History Last Taken 09/06/22] levothyroxine 75 mcg tablet 75 mcg PO DAILY THYROID 09/07/22 [History Last Taken 09/06/22] mupirocin 2 % topical ointment 1 applic topical TID TOPICAL 09/07/22 [History Last Taken 09/06/22] warfarin 2 mg tablet 2 mg PO SUTUWEFRSA BLOOD THINNER 09/07/22 [History Last Taken 09/06/22] Allergy/AdvReac Type Severity Reaction Status Date / Time No Known Allergies Allergy Verified 09/06/22 19:59 Family History Mother Hypertension Heart disease Surgical History History of hernia repair History of hip replacement History of partial knee replacement Presence of coronary angioplasty implant and graft (~07/04/18) Social History Smoking Status: Never smoker alcohol intake: never substance use type: does not use ROS Constitutional Constitutional: Reports weakness; Denies chills or fever(s) ENT HEENT: Denies nasal congestion Cardiovascular Cardiovascular: Reports irregular heart rhythm and leg edema; Denies chest pain or syncope Respiratory/Chest Respiratory/Chest: Reports dry cough, dyspnea on exertion and wheezing; Denies shortness of breath at rest Gastrointestinal Gastrointestinal: Denies abdominal pain, anorexia, diarrhea, nausea or vomiting Genitourinary Genitourinary: Denies change in urinary stream Integumentary Integumentary: Reports erythema Neurologic Neurologic: Reports weakness and other Details: uses walker, cane at home Psychiatric Psychiatric: Denies anxiety or confusion Hematologic/Lymphatic Hematologic/Lymphatic: Reports anemia Physical Exam Const alert, oriented x3 and no apparent distress General Appearance: well developed Orientation / Consciousness: Negative for confused Nutritional Appearance: morbidly obese HEENT normocephalic Resp Auscultation: wheezes Cardio regular rate GI non-tender and non-distended GI Narrative: obese Auscultation: normoactive bowel sounds Extremity General Extremity: edema left lower extremity Skin Skin Narrative: cellulitis LLE, legt leg wrapped General Skin Exam: erythema Neuro CN's II-XII intact bilaterally Sensorium / Orientation: awake and alert Motor Exam: tremor Positive for bilateral upper extremity Psych cooperative Lab / Micro Data Result Diagrams: 09/08/22 04:00 09/08/22 04:00 Labs: Laboratory Results - last 24 hr 09/07/22 14:10: PT Cancelled, INR Cancelled, APTT Cancelled 09/07/22 14:10: Lactic Acid Cancelled 09/07/22 14:10: Lactic Acid 3.5 H* 09/07/22 17:08: POC Glucose 125 H 09/07/22 23:01: POC Glucose 133 H 09/08/22 04:00: WBC 14.3 H, RBC 4.21 L, Hgb 13.0, Hct 40.0, MCV 95.0 H, MCH 30.9, MCHC 32.5, RDW Std Deviation 50.4 H, RDW Coeff of [place] 14.6, Plt Count 113 L, MPV 9.9, Immature Gran % (Auto) 0.800, Neut % (Auto) 93.7 H, Lymph % (Auto) 2.7 L, [place] % (Auto) 2.1, Eos % (Auto) 0.6, Baso % (Auto) 0.1, Absolute Neuts (auto) 13.4 H, Absolute Lymphs (auto) 0.38 L, Nucleated RBC % 0, Differential Comment SCANNED 09/08/22 04:00: PT 35.5 H, INR 3.6 09/08/22 04:00: Sodium 143, Potassium 4.3, Chloride 109 H, Carbon Dioxide 24.0, Anion Gap 10, BUN 41 H, Creatinine 2.20 H, Estim Creat Clear Calc 23.68, Est GFR (MDRD) Af Amer 37 L, Est GFR (MDRD) Non-Af 31 L, BUN/Creatinine Ratio 18.6, Glucose 138 H, Calcium 8.5, Total Bilirubin 0.50, AST 24, ALT 25, Alkaline Phosphatase 71, Total Protein 5.9 L, Albumin 2.1 L, Globulin 3.8, Albumin/Globulin Ratio 0.6 L 09/08/22 04:00: Hemoglobin A1c 8.5 H 09/08/22 04:00: Random Vancomycin 15.5 H 09/08/22 08:24: POC Glucose 146 H 09/08/22 11:27: POC Glucose 169 H Micro: Microbiology 09/07/22 16:10 Wound - Leg, Left Gram Stain - Final Radiology Impression Lower Extremity CT 09/07/22 13:10 IMPRESSION: Findings suggestive of diffuse cellulitis of the left lower extremity with overlying skin thickening and subcutaneous edema. No radiographic evidence of necrotizing fasciitis at this time. Electronically Signed: Bacilio Mitchell MD at 14:04 EST , Echocardiogram 09/07/22 13:43 Interpretation Summary Normal LV size. Left ventricular systolic function is normal. The estimated ejection fraction is 55 %. The study was technically limited. Ordering Physician: Juhi Quinn Performed By: Jan Mcneil RCS
[2022-09-08] MEDS: Ipratropium/Albuterol Sulfate 3 ML AMPUL.NEB INHALATION ×2 (12:43→20:58)
--- NOTE | 2022-09-08 14:02 | NURSING ---
off floor for MRI at this time with informatics manager
--- NOTE | 2022-09-08 14:20 | MRI_ITS ---
ACR Level 3 findings have been noted. An addendum which confirms receipt of the report will follow. HISTORY: AMS, CT with stroke of unclear duration. TECHNIQUE: Multiplanar and multisequence MR images of the brain were obtained without contrast. 288 images. COMPARISON: CT prior day. FINDINGS: BRAIN PARENCHYMA: Multiple small foci of the restricted diffusion in the right frontal, right posterior parietal cortex, right temporal lobe, and right basal ganglia. Corresponding T2 FLAIR signal abnormality and chronic white matter changes bilaterally. Additional chronic right lacunar infarct also noted. No acute intracranial hemorrhage identified. CSF SPACES: Moderate generalized volume loss. No significant midline shift or other mass effect.No extra-axial fluid collection. VASCULAR SYSTEM: Major intracranial flow voids are maintained. PARANASAL SINUSES AND MASTOID AIR CELLS: No significant air fluid levels. ORBITS: Symmetric contents. MRI/Brain without Contrast IMPRESSION: Multiple small acute infarct in the right middle cerebral artery territory involving the right frontal cortex, right posterior parietal lobe, right temporal lobe, and right basal ganglia. Chronic involutional and white matter changes. Old right basal ganglia lacunar infarct. Electronically Signed: Renu Zazueta MD at 15:57 EST ,
[2022-09-08] MEDS: 0.9% Saline Lock 10 ML Syringe IV ×2 (15:16→21:27)
--- NOTE | 2022-09-08 16:27 | TELEMED_ITS ---
[facility] Telemed has confirmed receipt of a request for visit. This document confirms receipt of the order initiating the consult. To find the results of the consultation, please view the patient's reports for the scanned Telemed Consult.
[2022-09-08 17:31] LABS: Bedside Glucose 207 mg/dL (74-106)
--- NOTE | 2022-09-08 18:00 | CASEMGMT ---
HELGA POWELL SENIOR EDITOR CM to room to meet with patient for initial transition planning/care coordination assessment. Flash, Martha, and dtrDrea, present @ bedside. HELGA POWELL introduced self and role at [facility].? Pt voices understanding and consents to assessment at this time.?He is agreeable to and dtr being present during assessment. Pt resting in bed in no distress at this time.? Pt is A/O at this time and answers all questions appropriately and family provided much information also. Care providers, pharmacy, and demographics verified/updated at this time. PCP: Dr Newton Specialists: Dr Cruz-pulmonology, Dr Fabian-pain mgmt, Dr Plasencia-nephrology, Gerardo-cardiology, Dr Wall-ortho Preferred Pharmacy: [facility] or [facility] [place] Insurance: [facility] Prescription Benefit:?none Living Will/HPOA:? Pt does not currently have LW/HCPOA LNOK: Martha Vidales. 7 children Living Arrangements: Lives w/ and special-needs son in one-story home w/3-4 steps to enter. @ his baseline, pt sleeps in a recliner and sponge-baths. Family assists w/LE dressing. Transportation: Hire drivers. DME: ?States has the following DME:?shower chair, RTS, cane, walker, W/C, PAP from [facility], pulse ox, BP machine, glucometer, INR machine, and portable oxygen concentrator that he owns. Used to have oxygen from [facility] many years ago. Family states are considering getting a hospital bed. DtrDrea, states lives near the [facility] and will check with them to see if one is available. HHC/SNF: No hx of either. Discussed discharge planning w/pt and family. and Drea state they wish to have a family meeting to discuss if they want pt to come home or go to RU or SNF. Drea states she wishes to talk w/[employer] to inquire if they would be willing to cover for SNF or RU or at least for HHC. Pt has a lot of family support and able to have at least 2 people w/him at all times to help care for him, if needed, but they also feel pt would benefit from RU. If they decide to have pt discharge home, they confirm they would like HHC for therapy and possibly SN also. PLAN: ?TBD. RU or SNF vs Home w/HHC. Family want to have a family mtg and talk w/[employer] re: what they are willing to cover. Jennifer BSN RN CM
--- NOTE | 2022-09-08 18:48 | MRI_ITS ---
STUDY: MRA OF THE HEAD WITHOUT CONTRAST REASON FOR EXAM: Male, 81 years old. New infarcts on mri TECHNIQUE: 3-D [id number] (TOF) imaging was performed with MIPs. The study was performed unenhanced. Planar and three-dimensional reconstructions obtained. COMPARISON: MRI examination of the same date, 09/08/2022 FINDINGS: CAROTID VESSELS: Normal bilateral petrous carotid arteries. Normal right cavernous carotid artery with a normal supraclinoid bifurcation. Normal left cavernous carotid artery with a normal supraclinoid bifurcation. ANTERIOR CEREBRAL ARTERIES: RIGHT A1 is small in caliber and poorly visualized at. Developmental atresia is a consideration. There is a dominant LEFT A1 segment. Normal left A1 segments of the anterior cerebral artery. Normal intact anterior communicating artery (ACOM). Normal bilateral A2 segments of the anterior cerebral arteries. MIDDLE CEREBRAL ARTERIES: Normal right M1 and M2 segments of the middle cerebral arteries, with a normal M1 bifurcation. Normal left M1 and M2 segments of the middle cerebral arteries, with a normal M1 bifurcation. POSTERIOR TO INDICATING ARTERIES: RIGHT posterior communicating artery is not well visualized. There is a prominent LEFT P-comm. VERTEBRAL BASILAR SYSTEM: There is a dominant LEFT vertebral artery. No occlusion bilaterally. Normal basilar artery with a normal basilar bifurcation. The visualized bilateral superior cerebellar (SCA) arteries are normal. POSTERIOR CEREBRAL ARTERIES Normal bilateral P1, P2 and visualized P3 segments of the posterior cerebral arteries. There is no demonstrated aneurysm of the [place]. MRI/MRA Head ONLY without Contrast IMPRESSION: 1. Developmentally atretic RIGHT A1 segment with only faint flow signal, which may be due to slow flow. Partial occlusion of the small caliber RIGHT A1 segment is a consideration. 2. The remaining elements of the [place] show normal flow without intraluminal filling defects or evidence of LVO. No focal vascular abnormality identified in the vessels contributing to the area of recent described acute infarcts in the RIGHT MCA distribution in the RIGHT parietal lobe. Electronically Signed: Antonio Main MD at 20:42 EST ,
--- NOTE | 2022-09-08 19:02 | MRI_ITS ---
HISTORY: new infarcts on mri Date: 09/08/2022 7:02 PM Technique: MR a examination of the neck obtained with standard protocol including [id number] imaging and three-dimensional reconstructions. No contrast administered. Comparison: MRI of the brain and MRA of [place] in the same date. FINDINGS Limitation: Significant limitation of current examination due to motion artifact. MRA Neck: Aortic arch: [Normal appearance of the aortic arch and origin the great vessels.] Right carotid system: Normal appearance of flow signal within the RIGHT common carotid artery to the level of the bifurcation. Significant dropout of signal within the RIGHT carotid bulb, which may be contributed by motion artifact, however proximal RIGHT ICA/carotid bulb stenosis is a consideration. Remaining RIGHT ICA is normal appearance the level of the skull base. Normal appearance the RIGHT external carotid circulation. Left carotid system: There is normal appearance of the LEFT common carotid, LEFT internal carotid, and the bifurcation. There is normal appearance of the LEFT external carotid circulation Vertebral arteries: There is normal appearance of the vertebral arteries bilaterally without focal stenosis or occlusion. Airway and soft tissues of the neck: There is normal appearance of the musculofascial planes of suprahyoid and infrahyoid neck. Normal appearance of the visualized airway. Normal appearance the visualized thyroid without masses or nodules noted. Cervical spine: Normal appearance of bony elements of the cervical spine. No focal stenosis or occlusion involving the cervical spinal canal. MRI/MRA Neck WITH and W/O Contrast IMPRESSION: 1. Abnormal appearance of flow signal within the RIGHT carotid bulb which in part may be accentuated by motion artifact and tortuous vessels, however findings suspicious of short segment RIGHT carotid bulb stenosis. Consider evaluation with either CTA or Doppler ultrasound for verification. 2. No other evidence of hemodynamically significant stenosis in the cervical carotid or vertebral circulation to the level of the skull base. Electronically Signed: Antonio Main MD at 20:48 EST ,
[2022-09-09] VITALS (18 sets, daily range): BP systolic 118–145; BP diastolic 69–82; PULSE 74–120; RESP 12–28; TEMP 36.6–37.7; O2SAT 94–97; BMI 39.1
[2022-09-09] MEDS: Metoprolol Tartrate 25 MG Tablet PO (00:13)
--- NOTE | 2022-09-09 00:56 | CDU_ITS ---
Reason For Study: Acute CVA, abnormal neck MRA Rt. Velocities/BP Lt. Velocities/BP Prox CCA 48.5/6.9 cm/sec. Prox CCA 98.6/15.1 cm/sec. Mid CCA 60.7/11.6 cm/sec. Mid CCA 67.9/13.9 cm/sec. Dist CCA 56/9.7 cm/sec. Dist CCA 72.8/15.1 cm/sec. Prox ICA 549.6/237.4 cm/sec. Prox ICA 68.5/24.5 cm/sec. Mid ICA 228.9/75.7 cm/sec. Mid ICA 65.2/22.3 cm/sec. Dist ICA 68.1/18.8 cm/sec. Dist ICA 79.5/26.7 cm/sec. Rt. ICA/CCA = 9.81. Lt. ICA/CCA = 1.09. Prox ECA 122.9/9.7 cm/sec. Prox ECA 108.3 cm/sec. Rt. Vert. 34.3/9 cm/sec. Lt. Vert. 33.7/8.8 cm/sec. Right Extracranial There is heterogeneous, irregular atherosclerotic plaque noted in the right common carotid artery. There is heterogeneous, irregular atherosclerotic plaque noted in the right internal carotid artery. There is heterogeneous, irregular atherosclerotic plaque noted in the right external carotid artery. Antegrade flow is noted in the right vertebral artery. Left Extracranial There is homogeneous, smooth atherosclerotic plaque noted in the left common carotid artery. There is heterogeneous, irregular atherosclerotic plaque noted in the left internal carotid artery. There is heterogeneous, irregular atherosclerotic plaque noted in the left external carotid artery. Antegrade flow is noted in the left vertebral artery. Procedure Carotid Duplex 13788. This is a Carotid Duplex examination using B-mode, color flow and specral Doppler. Preliminary to [facility]. Exam performed in department. VL/Carotid Duplex Ultrasound Interpretation Summary Irregular plaque noted at the proximal right internal carotid artery with great er than 70% stenosis and likely greater than 80% stenosis of the internal carotid artery Less than 50% stenosis right external carotid artery Irregular plaque at the proximal left internal carotid artery with less than 50 % stenosis Less than 50% stenosis left external carotid artery Patent and antegrade vertebral arteries bilaterally Ordering Physician: Selina Grissom Referring Physician: MD Aman Eric Performed By: Wen Cam RVT
--- NOTE | 2022-09-09 00:57 | [place]_ITS ---
Reason For Study: TIA/CVA Medication SHAINA probe 6VT-D (SN [id number]) passed without difficulty. No complications were noted. Cetacaine Topical [place] given X3 orally. Versed 2 mg given slow IVP. Fentanyl 50 mcg given slow IVP. Performed a rapid injection of agitated mix of 9 cc saline and 1cc air to assess for atrial septal defect. Left Ventricle Normal left ventricle. Left ventricular systolic function is normal. The estimated ejection fraction is 60 %. No regional wall motion abnormalities noted. Right Ventricle Normal RV size. Normal systolic function. Atria Bubble contrast study negative for right to left interatrial shunt. Intact atrial septum. Normal left atrium. No thrombus is detected in the left atrial appendage. Normal right atrium. Mitral Valve Normal mitral valve. Mild (1+) eccentric mitral valve insufficiency. Tricuspid Valve Normal tricuspid valve. Aortic Valve Normal aortic valve. Trisinus/trileaflet aortic valve. Pulmonic Valve Normal pulmonic valve. Mild (1+) eccentric pulmonic valve insufficiency. Vessels Normal aortic root. Pericardium No pericardial effusion. ECHO/Echo Transesophageal (SHAINA) Interpretation Summary Normal left ventricle. Left ventricular systolic function is normal. The estimated ejection fraction is 60 %. Intact atrial septum Bubble contrast study negative for right to left interatrial shunt. No thrombus is detected in the left atrial appendage. Ordering Physician: Selina Grissom Referring Physician: MD Aman Eric Performed By: Diya Quan, DOROTHY
[2022-09-09] MEDS: Clopidogrel Bisulfate 75 MG Tablet PO ×2 (01:15→10:22)
[2022-09-09 01:25] LABS: Bedside Glucose 196 mg/dL (74-106)
[2022-09-09] MEDS: Hydrocortisone Sod Succinate 100 MG/2 ML Vial IV (05:28)
[2022-09-09] MEDS: Clindamycin 900 MG/50 ML BAG 75 MG IV (05:31)
[2022-09-09 05:48] LABS: Absolute Lymphocyte Count 0.32 X10^3/uL (0.83-4.51); Absolute Neutrophil Count 14.8 X10^3/uL (2.0-7.7); Basophil# 0.07 X10^3/uL; Basophil% 0.4 % (0-1); Eosinophil# 0.03 X10^3/uL; Eosinophils% 0.2 % (0-5); Hematocrit 38.3 % (40-54); Hemoglobin 12.1 g/dL (13.0-16.5); Lymphocyte # 0.32 X10^3/ul (0.83-4.51); Mean Corp Hgb Conc 31.6 g/dL (32-36); Mean Corpuscular Volume 94.8 fL (80-94); Mean Platelet Vol. 10.4 fl (6.2-12.0); Monocyte# 0.48 X10^3/uL; NRBC Flagged by Analyzer 0.1 % (0-5); Neutrophil # 14.81 X10^3/uL (2.7-7.7); Neutrophil % 93.8 % (47-70); POSITIVE DIFFERENTIAL YES; POSITIVE MORPHOLOGY YES; Platelet Count 100 K/mm3 (150-450); RBC Distribution Width CV 14.6 % (11.6-14.6); RBC Distribution Width SD 51.8 fl (35.1-43.9); Red Blood Count 4.04 M/mm3 (4.6-6.2); White Blood Count 15.8 K/mm3 (4.4-11.0)
[2022-09-09 05:50] LABS: Differential Indicated SCAN CRITERIA MET
[2022-09-09 06:01] LABS: Prothrombin Time (Protime)PT. 43.5 SECONDS (11.7-14.9)
[2022-09-09 06:04] LABS: International Normalized Ratio 4.6
[2022-09-09 06:14] LABS: Differential Comment SCANNED
[2022-09-09 06:17] LABS: ALB/GLOB Ratio 0.4 RATIO (0.9-2.4); AST(SGOT) 18 U/L (15-37); Alanine Aminotransfer ALT/SGPT 22 U/L (16-61); Albumin, Serum 1.8 g/dL (3.2-5.0); Alkaline Phosphatase 135 U/L (45-117); Anion Gap 8 (5-15); BUN 37 mg/dL (7-18); BUN/Creat Ratio 22.8 RATIO (10-20); Calcium,Total 8.6 mg/dL (8.5-10.1); Chloride 113 mmol/L (98-107); Cholesterol 107 mg/dL (200); Creatinine, Serum 1.62 mg/dL (0.70-1.30); EST Glomerular Filtration Rate 44 mL/min (>60); Est Glom Filt Rate - Afr Amer 53 mL/min (>60); Estimated Creatinine Clearance 32.16 ml/min; Glucose 176 mg/dL (74-106); High Density Lipoprotein 9 mg/dL; Potassium 3.7 mmol/L (3.5-5.1); Protein, Total 5.8 g/dL (6.4-8.2); Sodium Level 145 mmol/L (136-145); Triglycerides 236 mg/dL; Very Low Density Lipoprotein 47 mg/dL (5-40)
[2022-09-09 07:25] LABS: Bedside Glucose 180 mg/dL (74-106)
[2022-09-09] MEDS: Ipratropium/Albuterol Sulfate 3 ML AMPUL.NEB INHALATION ×3 (07:30→19:40)
--- NOTE | 2022-09-09 07:54 | PCM.PN.HOSP ---
Subjective Subjective Is feeling quite a bit better today and is more alert and answering questions appropriately. Breathing waxes and wanes, motor strength improving. Overall feeling better Objective Data Objective Data Vital Signs: Vital Signs Temp Pulse Resp BP Pulse Ox O2 Del Method O2 Flow Rate 99.3 F H 104 H 18 122/72 H 95 Nasal Cannula 4 09/09/22 06:30 09/09/22 07:30 09/09/22 07:30 09/09/22 06:30 09/09/22 07:30 09/09/22 07:30 09/09/22 07:30 FiO2 30 09/09/22 01:10 Oxygen Flow Rate (L/min) 4 Oxygen Delivery Method Nasal Cannula Weight: 105.5 kg Body Mass Index (BMI) 39.1 Intake & Output: Intake and Output for Last 24 Hours 09/07/22 09/08/22 09/09/22 23:59 23:59 23:59 Intake Total 2740 / 2740 1600 / 1600 100 / 100 Output Total 1450 / 1450 2050 / 2050 650 / 650 Balance 1290 / 1290 -450 / -450 -550 / -550 Lab / Micro Data Result Diagrams: 09/09/22 05:16 09/09/22 05:16 Labs: Laboratory Results - last 24 hr 09/08/22 04:00: Hemoglobin A1c 8.5 H 09/08/22 08:24: POC Glucose 146 H 09/08/22 11:27: POC Glucose 169 H 09/08/22 16:22: POC Glucose 207 H 09/09/22 00:57: POC Glucose 196 H 09/09/22 05:16: PT 43.5 H, INR 4.6 H* 09/09/22 05:16: WBC 15.8 H, RBC 4.04 L, Hgb 12.1 L, Hct 38.3 L, MCV 94.8 H, MCH 30.0, MCHC 31.6 L, RDW Std Deviation 51.8 H, RDW Coeff of Alley 14.6, Plt Count 100 L, MPV 10.4, Immature Gran % (Auto) 0.600, Neut % (Auto) 93.8 H, Lymph % (Auto) 2.0 L, [place] % (Auto) 3.0, Eos % (Auto) 0.2, Baso % (Auto) 0.4, Absolute Neuts (auto) 14.8 H, Absolute Lymphs (auto) 0.32 L, Nucleated RBC % 0.1, Differential Comment SCANNED 09/09/22 05:16: Sodium 145, Potassium 3.7, Chloride 113 H, Carbon Dioxide 24.0, Anion Gap 8, BUN 37 H, Creatinine 1.62 H, Estim Creat Clear Calc 32.16, Est GFR (MDRD) Af Amer 53 L, Est GFR (MDRD) Non-Af 44 L, BUN/Creatinine Ratio 22.8 H, Glucose 176 H, Calcium 8.6, Total Bilirubin 0.50, AST 18, ALT 22, Alkaline Phosphatase 135 H, Total Protein 5.8 L, Albumin 1.8 L, Globulin 4.0, Albumin/Globulin Ratio 0.4 L, Triglycerides 236 H, Cholesterol 107, LDL Cholesterol 51, VLDL Cholesterol 47 H, HDL Cholesterol 9 L 09/09/22 06:23: POC Glucose 180 H Micro: Microbiology 09/07/22 16:10 Wound - Leg, Left Gram Stain - Final 09/07/22 16:10 Wound - Leg, Left Wound Culture - Preliminary Streptococcus group C Radiography Diagnostic Testing: Radiology Impression Brain MRI 09/08/22 14:20 IMPRESSION: Multiple small acute infarct in the right middle cerebral artery territory involving the right frontal cortex, right posterior parietal lobe, right temporal lobe, and right basal ganglia. Chronic involutional and white matter changes. Old right basal ganglia lacunar infarct. Electronically Signed: Renu Zazueta MD at 15:57 EST Reading Location ID and State: [facility] / [place] Tel , Service support , ADDENDUM: 09/08/22 1818 IMPRESSION: Multiple small acute infarct in the right middle cerebral artery territory involving the right frontal cortex, right posterior parietal lobe, right temporal lobe, and right basal ganglia. Chronic involutional and white matter changes. Old right basal ganglia lacunar infarct. N.B. : CHRISTY Car, confirmed on 09/08/2022 16:42:16 (ET) that the healthcare facility has received the radiology report. Electronically Signed: Renu Zazueta MD at 15:57 EST Reading Location ID and State: [facility] / [place] Tel , Service support , Head MRA 09/08/22 18:48 IMPRESSION: 1. Developmentally atretic RIGHT A1 segment with only faint flow signal, which may be due to slow flow. Partial occlusion of the small caliber RIGHT A1 segment is a consideration. 2. The remaining elements of the [place] show normal flow without intraluminal filling defects or evidence of LVO. No focal vascular abnormality identified in the vessels contributing to the area of recent described acute infarcts in the RIGHT MCA distribution in the RIGHT parietal lobe. Electronically Signed: Antonio Main MD at 20:42 EST , Neck MRA 09/08/22 19:02 IMPRESSION: 1. Abnormal appearance of flow signal within the RIGHT carotid bulb which in part may be accentuated by motion artifact and tortuous vessels, however findings suspicious of short segment RIGHT carotid bulb stenosis. Consider evaluation with either CTA or Doppler ultrasound for verification. 2. No other evidence of hemodynamically significant stenosis in the cervical carotid or vertebral circulation to the level of the skull base. Electronically Signed: Antonio Main MD at 20:48 EST , Physical Exam Narrative General: Alert, oriented HEENT: Atraumatic, normocephalic Eyes: Anicteric, normal conjunctiva, extraocular movements intact, pupils equal Neck: Supple Respiratory: Scattered wheezes, slight increased work of breathing Cardiovascular: Irregularly irregular GI: Soft, nontender, nondistended Extremities: Left lower extremity wrapped Musculoskeletal: Strength 5 out of 5 in upper and right lower extremity, left lower extremity limited due to pain from cellulitis Neuro: Cranial nerves II through XII intact, slight difficulty with [id number] on left side compared to right however overall did well, several extra beats of clonus noted on right ankle reflex, difficult to assess left given his cellulitis and pain Skin: Left lower extremity cellulitis, presently wrapped Psych: Cooperative, tearful at times Assessment & Plan Assessment/Plan (1) Severe sepsis: (2) Cellulitis of left lower leg: (3) Change in mental status: (4) Lactic acidosis: (5) Lumbar compression fracture: (6) Presence of stent in coronary artery: (7) KIM (obstructive sleep apnea): (8) Essential hypertension: (9) GERD (gastroesophageal reflux disease): (10) Paroxysmal A-fib: (11) CHF (congestive heart failure): QUALIFIERS: Heart failure chronicity: chronic Heart failure type: systolic Qualified Code(s): I50.22 - Chronic systolic (congestive) heart failure (12) Hyperglycemia: (13) CKD (chronic kidney disease), stage III: PLAN: Plan #Severe sepsis secondary to left lower extremity cellulitis due to group C strep White count 13.4 with left shift, lactic acid 5.0, LILIA on CKD Likely source left lower extremity rapidly progressive cellulitis Pancultures, Vanco, Zosyn, clindamycin added CT of lower extremity to assess for air though no crepitus felt on exam Did notify surgery and ICU team Patient hypotensive in ED but has not yet completed fluid resuscitation's at this time cannot recall the septic shock Pancultured 09/08: Is improving, continue vancomycin, Zosyn, clinda at this time. Can likely DC clinda tomorrow. Cultures pending. CT without air or obvious fluid collection so no acute intervention at this time, does seem to be improving. White blood cell slightly increased however has been started on stress dose steroids. 09/09: Leg wound growing group C strep, final culture pending and blood cultures pending. Continue current antibiotics at this time, will check MRSA swab in regards to vancomycin and DC clinda today. Patient is much improved from presentation however. He is presently still on stress dose steroids which are being weaned #Multi-infarct CVA of right hemisphere On presentation family had been concerned there could have been some left-sided weakness when he woke up but he was unable to participate in neurologic exam, CT showed right basal ganglia lacunae of indeterminate age Due to critical illness he was transferred to the ICU and he was not stable enough to undergo MRI On 09/08 he was taken for MRI as condition improved and he was found to have multiple infarcts in the right hemisphere: Multiple small acute infarct in the right MCA territory involving the right frontal cortex, right posterior parietal lobe, right temporal lobe, right basal ganglia. Additional old right basal ganglia lacunar infarct, chronic involutional white matter changes Contacted family at that time and ordered MRI/MRA and consulted neurology 2/: MRA of head showed developmentally artery great A1 segment with only faint flow signal which may be due to slow flow. Partial occlusion of small caliber right A1 segment is a consideration. MRA neck demonstrated abnormal appearance of flow within the right carotid bulb which in part may be accentuated by motion artifact and torturous vessels however findings suspicious of short segment right carotid bulb stenosis and recommended consider evaluation with either CTA or Doppler for verification. Carotid ultrasound ordered. Neurology evaluated, SHAINA ordered, and aspirin + Plavix while Coumadin is held was recommended. Once Coumadin can be resumed, which per neurology would be cleared to do so on Sunday or Sunday, it is recommended to discontinue aspirin if the carotid ultrasound confirms findings of the MRI. If SHAINA concerning for vegetation and picture concerning for septic emboli we will reconsult neurology. Continue telemetry and neurochecks. #Thrombocytopenia -Appears to have had this intermittently over several years, on admission was 136 and has trended down to 100, monitor closely as INR is also elevated but this may all be due to critical illness #Paroxysmal atrial fibrillation On Coumadin at home, hold at this time INR 2.7, will trend On telemetry Continue amiodarone Holding beta-monica 2/3: Continue amiodarone, beta-blockers been held due to hypotension, INR 3.6 today. Continue to hold Coumadin /4: INR 4.6 today despite Coumadin being held, continue to hold and monitor for bleeding, continue amiodarone. Did have episode of RVR overnight and his beta-monica was resumed #Chronic asthma On prednisone 10 mg chronically, this has been attempted to be weaned as an outpatient however has been unsuccessful Stress dose steroids. We will add breathing treatments as he has wheezes and has been had difficulty weaning off BiPAP DuoNebs every 6 #Altered mental status Likely due to to his severe sepsis CT of the head with chronic involutional changes of the brain and tiny lacunae in the right basal ganglia which age was indeterminant Unable to participate in neurologic exam and last known normal was at 2 AM and out of the window for any intervention Stroke call not been called We will obtain MRI Echo N.p.o. PT/OT/speech 23: Significantly improved, easily reoriented. Was not stable for MRI yesterday, hold today and can consider tomorrow. 4: Has certainly improved between yesterday and today. Continue to treat underlying etiology. PT/OT/speech #LILIA on CKD stage IIIb Likely due to sepsis Receiving fluids Did obtain contrasted CT scan was lower extremity to rule out necrotizing fasciitis so this may transiently worsen He follows with Dr. Plasencia with nephrology, nephrology consulted Avoid nephrotoxic agents 23: Creatinine did actually improved to 2.2 today, nephrology was consulted on admission 24: Continues to improve #Acute on chronic exacerbation of heart failure with preserved ejection fraction Most recent echocardiogram with EF within normal limits and indeterminate diastolic dysfunction Repeating at this time Did have BNP of 500 but chest x-ray nonspecific and given his severe sepsis and hypotension fluids are imperative Hold diuretic 23: echo on 09/07 with EF of 55% but study was technically limited 2: Still requiring at least amount of O2, will trial small dose of Lasix #Coronary artery disease status post stent in 2018 On aspirin and statin Holding beta-monica 24: Beta-monica resumed #Hyperglycemia Checks his glucose at home but appears to no longer be on any medications for diabetes and last A1c was 5.8 though this was in 2019 Recheck A1c Glucose checks and sliding scale insulin 2: Hemoglobin A1c pending, glucose minimally elevated, once out of critical. Will likely be able to DC glucose checks and insulin #Chronic lower back pain secondary to multiple lumbar compression fractures Hold opioid pain medications while altered and hypotensive #DVT ppx: Presently therapeutic on Coumadin, Coumadin held Juhi Quinn MD Time spent in the patient's overall evaluation,decision-making process, review of diagnostic data, adjustment of management, discussion with other providers, nursing nursing and ancillary staff involved in patient's care documentation, 35 minutes Charges/Coding Visit Charges Inpatient E&M: 24098 Subs Hosp L2
--- NOTE | 2022-09-09 08:05 | PCM.PN.INT ---
Assessment & Plan Assessment/Plan (1) Severe sepsis: (2) Cellulitis of left lower leg: (3) Acute kidney injury superimposed on CKD: PLAN: Plan RECOMMENDATIONS: 1. Continue empiric antibiotics pending cultures. Okay to discontinue clindamycin from my perspective 2. Consider challenge with diuretics 3. BiPAP breaks as tolerated 4. Wean stress dose steroids 5. Continue BiPAP with sleep and rescue 6. Wean oxygen as tolerated 7. Hold beta-monica given marginal blood pressures IMPRESSIONS: 1. Severe sepsis secondary to left lower leg cellulitis/relative adrenal insufficiency Patient with leukocytosis, elevated lactate and evidence of endorgan damage with acute kidney injury and metabolic encephalopathy. Patient has received approximate 1-1/2 L of IV fluids and blood pressure is significantly improved. Patient did not require pressor therapy overnight. Full fluid bolus was not given secondary to congestive heart failure, respiratory compromise and improvement in blood pressures. We will discontinue clindamycin. Wean stress dose steroids. 2. Metabolic encephalitis Appears to be improving. Clinical suspicion for decreased mental status secondary to problem #1. Patient did not have a blood gas prior to BiPAP therapy, but has improved significantly following the addition of BiPAP. 3. 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 Plasencia at baseline she has been consulted. Baseline creatinine appears to be around 2 and patient presented with a creatinine of almost 3. Clinical suspicion this is secondary to problem #1. No indication for renal replacement therapy at this time. Will attempt to avoid nephrotoxic agents. Respiratory status is improved, but patient would likely benefit from gentle diuresis. Defer to nephrology. 4. Acute on chronic diastolic CHF/paroxysmal A. fib/coronary artery disease Patient on Coumadin at baseline. Coumadin should be held as INR will be prolonged given antibiotics. No indication for active reversal of INR at this time okay to continue with amiodarone. Anticipate patient's residual oxygen requirements are related to fluid resuscitation. Consider gentle diuresis. 5. Acute hypoxic respiratory failure secondary problem #4/KIM Patient did not have significant infiltrates on chest x-ray, but clinical picture is consistent with diastolic CHF. Patient with restriction on previous PFT, but diffusion capacity was relatively preserved. Patient's AA gradient appears to be improving with positive pressure indicating a component of pulmonary edema. Slowly improving. Patient not requiring BiPAP as much. 6. Hyperglycemia/chronic pain/advanced age/obesity Complicates care, management, recovery and prognosis. We will need to watch blood sugars closely as these may be elevated given the acute status. Would avoid opiates if possible as this can complicate respiratory status and response to BiPAP Subjective Subjective Overnight events were reviewed. Patient states he was feeling okay this morning. Patient was not reporting any chest pain or abdominal pain. No leg pain with been reported. Patient's blood pressure had remained adequate. No boluses have been required. Patient is not reporting any bleeding complications. Objective Data Objective Data Vital Signs: Vital Signs Temp Pulse Resp BP Pulse Ox O2 Del Method O2 Flow Rate 37.4 C H 104 H 18 122/72 H 95 Nasal Cannula 4 09/09/22 06:30 09/09/22 07:30 09/09/22 07:30 09/09/22 06:30 09/09/22 07:30 09/09/22 08:01 09/09/22 08:01 FiO2 30 09/09/22 01:10 Oxygen Flow Rate (L/min) 4 Oxygen Delivery Method Nasal Cannula Weight: 105.5 kg Body Mass Index (BMI) 39.1 Intake & Output: Intake and Output for Last 24 Hours 09/07/22 09/08/22 09/09/22 23:59 23:59 23:59 Intake Total 2740 / 2740 1600 / 1600 100 / 100 Output Total 1450 / 1450 2050 / 2050 650 / 650 Balance 1290 / 1290 -450 / -450 -550 / -550 Lab / Micro Data Attestation: I reviewed the patient's lab results. Result Diagrams: 09/09/22 05:16 09/09/22 05:16 Labs: Laboratory Results - last 24 hr 09/08/22 04:00: Hemoglobin A1c 8.5 H 09/08/22 08:24: POC Glucose 146 H 09/08/22 11:27: POC Glucose 169 H 09/08/22 16:22: POC Glucose 207 H 09/09/22 00:57: POC Glucose 196 H 09/09/22 05:16: PT 43.5 H, INR 4.6 H* 09/09/22 05:16: WBC 15.8 H, RBC 4.04 L, Hgb 12.1 L, Hct 38.3 L, MCV 94.8 H, MCH 30.0, MCHC 31.6 L, RDW Std Deviation 51.8 H, RDW Coeff of [place]ley 14.6, Plt Count 100 L, MPV 10.4, Immature Gran % (Auto) 0.600, Neut % (Auto) 93.8 H, Lymph % (Auto) 2.0 L, [place] % (Auto) 3.0, Eos % (Auto) 0.2, Baso % (Auto) 0.4, Absolute Neuts (auto) 14.8 H, Absolute Lymphs (auto) 0.32 L, Nucleated RBC % 0.1, Differential Comment SCANNED 09/09/22 05:16: Sodium 145, Potassium 3.7, Chloride 113 H, Carbon Dioxide 24.0, Anion Gap 8, BUN 37 H, Creatinine 1.62 H, Estim Creat Clear Calc 32.16, Est GFR (MDRD) Af Amer 53 L, Est GFR (MDRD) Non-Af 44 L, BUN/Creatinine Ratio 22.8 H, Glucose 176 H, Calcium 8.6, Total Bilirubin 0.50, AST 18, ALT 22, Alkaline Phosphatase 135 H, Total Protein 5.8 L, Albumin 1.8 L, Globulin 4.0, Albumin/Globulin Ratio 0.4 L, Triglycerides 236 H, Cholesterol 107, LDL Cholesterol 51, VLDL Cholesterol 47 H, HDL Cholesterol 9 L 09/09/22 06:23: POC Glucose 180 H Micro: Microbiology 09/07/22 16:10 Wound - Leg, Left Gram Stain - Final 09/07/22 16:10 Wound - Leg, Left Wound Culture - Preliminary Streptococcus group C Radiography Diagnostic Testing: Radiology Impression Brain MRI 09/08/22 14:20 IMPRESSION: Multiple small acute infarct in the right middle cerebral artery territory involving the right frontal cortex, right posterior parietal lobe, right temporal lobe, and right basal ganglia. Chronic involutional and white matter changes. Old right basal ganglia lacunar infarct. Electronically Signed: Reun Zazueta MD at 15:57 EST , ADDENDUM: 09/08/22 4579 IMPRESSION: Multiple small acute infarct in the right middle cerebral artery territory involving the right frontal cortex, right posterior parietal lobe, right temporal lobe, and right basal ganglia. Chronic involutional and white matter changes. Old right basal ganglia lacunar infarct. N.B. : CHRISTY Car, confirmed on 09/08/2022 16:42:16 (ET) that the healthcare facility has received the radiology report. Electronically Signed: Renu Zazueta MD at 15:57 EST , Head MRA 09/08/22 18:48 IMPRESSION: 1. Developmentally atretic RIGHT A1 segment with only faint flow signal, which may be due to slow flow. Partial occlusion of the small caliber RIGHT A1 segment is a consideration. 2. The remaining elements of the [place] of [place] show normal flow without intraluminal filling defects or evidence of LVO. No focal vascular abnormality identified in the vessels contributing to the area of recent described acute infarcts in the RIGHT MCA distribution in the RIGHT parietal lobe. Electronically Signed: Antonio Main MD at 20:42 EST , Neck MRA 09/08/22 19:02 IMPRESSION: 1. Abnormal appearance of flow signal within the RIGHT carotid bulb which in part may be accentuated by motion artifact and tortuous vessels, however findings suspicious of short segment RIGHT carotid bulb stenosis. Consider evaluation with either CTA or Doppler ultrasound for verification. 2. No other evidence of hemodynamically significant stenosis in the cervical carotid or vertebral circulation to the level of the skull base. Electronically Signed: Antonio Main MD at 20:48 EST , Physical Exam Const alert and oriented x3 General Appearance: cooperative HEENT normocephalic Eyes PERRL, EOMs intact bilaterally and conjunctivae normal Neck full ROM and no lymphadenopathy Neck Narrative: JVD noted Chest inspection of chest normal Resp normal respiratory effort Resp Narrative: Patient not on BiPAP while sleeping Auscultation: diminished lung sounds; Negative for rales, rhonchi or wheezes Cardio S1 normal heart sound, S2 normal heart sound, no murmurs, no rub and no gallops Rhythm: abnormal rhythm irregularly irregular GI normal to inspection, nondistended, normoactive bowel sounds Extremity Extremity Narrative: Significant weeping from the left lower extremity with serosanguineous drainage noted on Curlex General Extremity: edema bilateral (3+) Skin Skin Narrative: Significant erythema, sharply demarcated on the left lower extremity. Area of erythema appears to be regressing. No crepitus is palpable. Right lower extremity has dermal atrophy, but no venous stasis changes Neuro CN's II-XII intact bilaterally, moves all extremities and no focal motor deficits Psych cooperative Mood & Affect: flat affect Charges/Coding Visit Charges Inpatient E&M: 23325 Subs Hosp L3
[2022-09-09 08:44] LABS: Vancomycin, Random Level 16.6 ug/mL (0.0-15.0)
[2022-09-09] MEDS: Pantoprazole Sodium 20 MG Tablet PO (10:21)
[2022-09-09] MEDS: Metoprolol Tartrate 50 MG Tablet PO ×2 (10:21→21:09)
[2022-09-09] MEDS: Aspirin 81 MG TAB.CHEW PO (10:22)
[2022-09-09] MEDS: Amiodarone 200 MG Tablet 100 MG PO (10:22)
--- NOTE | 2022-09-09 10:28 | PCM.RX.CS ---
Consult Pharmacy has been consulted to manage selected antiobiotic: Vancomycin Type of Consult: Follow-up Suspected Infection: Skin/Soft tissue Labs: Sodium 145 mmol/L (136-145) 09/09/22 05:16 Potassium 3.7 mmol/L (3.5-5.1) 09/09/22 05:16 Chloride 113 mmol/L (98-107) H 09/09/22 05:16 Carbon Dioxide 24.0 mmol/L (21.0-32.0) 09/09/22 05:16 Anion Gap 8 (5-15) 09/09/22 05:16 BUN 37 mg/dL (7-18) H 09/09/22 05:16 Creatinine 1.62 mg/dL (0.70-1.30) H 09/09/22 05:16 Est GFR (MDRD) Af Amer 53 mL/min (>60) L 09/09/22 05:16 Est GFR (MDRD) Non-Af 44 mL/min (>60) L 09/09/22 05:16 BUN/Creatinine Ratio 22.8 RATIO (10-20) H 09/09/22 05:16 Glucose 176 mg/dL (74-106) H 09/09/22 05:16 Random Vancomycin 16.6 ug/mL (0.0-15.0) H 09/09/22 07:50 Microbiology: Microbiology 09/07/22 09:55 Blood Culture (Wb) - Anticubital Right Blood Culture - Preliminary No growth in 48 hours. 09/07/22 10:00 Blood Culture (Wb) - Anticubital Left Blood Culture - Preliminary No growth in 48 hours. 09/07/22 11:10 Urine, Clean Catch Urine Culture - Preliminary Gram Positive Cocci 09/07/22 16:10 Wound - Leg, Left Gram Stain - Final 09/07/22 16:10 Wound - Leg, Left Wound Culture - Preliminary Streptococcus group C Goal Trough: 15-20 mcg/mL Pharmacy Plan for Drug Dosing: VANCOMYCIN LEVEL RECEIVED Current Vancomycin Dose: DOSE BASED ON LEVELS Number of Doses Received: 2 Vancomycin Level: 16.6 Hours Since Last Dose: 21HR Renal Function: 1.62 Renal Function Trend: IMPROVING Lab/Micro: CX GROWING GPC Vancomycin Plan/Comments: Patient had a random level this morning which resulted in a value of 16.6 (goal 15-20). Patient with improving renal function. Will give another x1 dose of 1500mg IV today. If trough is still within acceptable limits and renal function stabilizes or continues to improve, will likely place on scheduled dosing tomorrow morning. Pending Level: *RANDOM* 09/10/22 @0600 Pharmacy Service will continue to monitor and adjust dosing as required.
[2022-09-09 12:16] LABS: M R Staph aureus DNA By PCR Negative (Negative); Probe Check PASS; Specimen Processing Control PASS
[2022-09-09] MEDS: Hydrocortisone Sod Succinate 100 MG/2 ML Vial 50 MG IV ×2 (15:05→21:08)
--- NOTE | 2022-09-09 15:20 | CASEMGMT ---
HELGA POWELL Follow-up on DC plan: Face to face with pt to discuss therapy needs at discharge. Multiple family members at bedside. Pt's daughter Drea states she has not yet spoken with her brother regarding the [employer] paying for rehabilitation services at discharge but will discuss with him. Drea states she will have an answer by Sunday and asks to speak with someone at that time. Patricia Hutchison RN CM
[2022-09-09 17:40] LABS: Bedside Glucose 274 mg/dL (74-106)
[2022-09-09] MEDS: Furosemide 20 MG/2 ML VIAL IV (18:19)
[2022-09-09] MEDS: 0.9% Saline Lock 10 ML Syringe IV ×2 (18:19→21:10)
[2022-09-09] MEDS: Acetaminophen 325 MG Tablet 650 MG PO (18:30)
[2022-09-09] MEDS: Atorvastatin Calcium 40 MG Tablet PO (21:09)
[2022-09-09 22:15] LABS: Bedside Glucose 326 mg/dL (74-106)
[2022-09-10] VITALS (24 sets, daily range): BP systolic 126–152; BP diastolic 70–92; PULSE 74–131; RESP 12–26; TEMP 36.6–36.9; O2SAT 92–96; BMI 39.1
[2022-09-10 00:41] LABS: Allen Test Positive; Base Excess -2 mmol/L (-2 to +2); Bicarbonate 22.3 mmol/L (22-26); Blood Gas Specimen Type ART; O2 Delivery Device Cannula; PO2 84 mmHG (75-100); SITE L Radial; SO2 97 % (95-99); Total Carbon Dioxide 23 mmol/L; pCO2 32.9 mmHg (35-45); pH 7.44 (7.35-7.45)
--- NOTE | 2022-09-10 00:45 | NURSING ---
Addendum entered by Maricruz Horton 09/10/22 00:58: ABG resulted, pC02 32.9, pH .44, notified . No new order at this time. Original Note: Pt awaken by this RN, pt drowsy but arousable to voice. Switched bipap to 4L NC to give PO meds and assess NIHss. Pt confused, unable to ff some commands. BG checked 288, BP 152/80, HR 120, 96% on 4L NC. Notified , ABG stat obtained.
[2022-09-10] MEDS: Metoprolol Tartrate 5 MG/5 ML Vial IV (01:04)
[2022-09-10] MEDS: 0.9% Saline Lock 10 ML Syringe IV ×3 (01:04→21:19)
[2022-09-10 01:06] LABS: Bedside Glucose 288 mg/dL (74-106)
[2022-09-10] MEDS: Levothyroxine 75 MCG Tablet PO (06:04)
[2022-09-10] MEDS: Hydrocortisone Sod Succinate 100 MG/2 ML Vial 50 MG IV ×2 (06:04→21:20)
[2022-09-10] MEDS: Insulin Lispro 100 UNIT/ML INSULN.PEN SC ×4 (06:16→21:24)
[2022-09-10 06:18] LABS: Absolute Lymphocyte Count 0.37 X10^3/uL (0.83-4.51); Absolute Neutrophil Count 15.4 X10^3/uL (2.0-7.7); Basophil# 0.06 X10^3/uL; Basophil% 0.4 % (0-1); Eosinophil# 0.04 X10^3/uL; Eosinophils% 0.2 % (0-5); Hematocrit 37.3 % (40-54); Lymphocyte # 0.37 X10^3/ul (0.83-4.51); Lymphocyte % 2.2 % (19-41); Mean Corp Hgb Conc 32.2 g/dL (32-36); Mean Corpuscular Hgb 30.8 pg (27.0-32.0); Mean Corpuscular Volume 95.6 fL (80-94); Mean Platelet Vol. 11.2 fl (6.2-12.0); Monocyte# 0.59 X10^3/uL; Monocyte% 3.5 % (0-10); NRBC Flagged by Analyzer 0.2 % (0-5); Neutrophil # 15.41 X10^3/uL (2.7-7.7); Neutrophil % 92.4 % (47-70); POSITIVE DIFFERENTIAL YES; Platelet Count 110 K/mm3 (150-450); RBC Distribution Width CV 14.9 % (11.6-14.6); White Blood Count 16.7 K/mm3 (4.4-11.0)
[2022-09-10 06:32] LABS: Differential Indicated SCAN CRITERIA MET
[2022-09-10 06:55] LABS: International Normalized Ratio 4.9; Prothrombin Time (Protime)PT. 45.8 SECONDS (11.7-14.9)
[2022-09-10 06:59] LABS: Anisocytosis 1+; Macrocytosis 1+; Platelet Estimate SLT DEC (ADEQ)
[2022-09-10 07:00] LABS: Bedside Glucose 229 mg/dL (74-106)
[2022-09-10 07:11] LABS: ALB/GLOB Ratio 0.4 RATIO (0.9-2.4); AST(SGOT) 17 U/L (15-37); Alanine Aminotransfer ALT/SGPT 23 U/L (16-61); Albumin, Serum 1.7 g/dL (3.2-5.0); Alkaline Phosphatase 93 U/L (45-117); Anion Gap 9 (5-15); BUN 38 mg/dL (7-18); BUN/Creat Ratio 18.8 RATIO (10-20); Calcium,Total 8.8 mg/dL (8.5-10.1); Chloride 109 mmol/L (98-107); Creatinine, Serum 2.02 mg/dL (0.70-1.30); EST Glomerular Filtration Rate 34 mL/min (>60); Est Glom Filt Rate - Afr Amer 41 mL/min (>60); Estimated Creatinine Clearance 25.79 ml/min; Globulin 4.4 g/dL (2.2-4.2); Glucose 249 mg/dL (74-106); Potassium 2.7 mmol/L (3.5-5.1); Protein, Total 6.1 g/dL (6.4-8.2); Sodium Level 143 mmol/L (136-145)
[2022-09-10] MEDS: Ipratropium/Albuterol Sulfate 3 ML AMPUL.NEB INHALATION ×3 (07:23→19:26)
--- NOTE | 2022-09-10 08:28 | PCM.PN.INT ---
Assessment & Plan Assessment/Plan (1) Severe sepsis: (2) Cellulitis of left lower leg: (3) Acute kidney injury superimposed on CKD: PLAN: Plan RECOMMENDATIONS: 1. Consider discontinuation of vancomycin 2. Hold on diuretic challenge given potassium and renal function. Potassium repletion ordered 3. BiPAP breaks as tolerated 4. Wean stress dose steroids. Likely transition to baseline 10 mg of prednisone tomorrow 5. Continue BiPAP with sleep and rescue 6. Wean oxygen as tolerated 7. Likely okay to reinitiate beta-monica in a stepwise fashion IMPRESSIONS: 1. Severe sepsis secondary to left lower leg cellulitis/relative adrenal insufficiency Patient with leukocytosis, elevated lactate and evidence of endorgan damage with acute kidney injury and metabolic encephalopathy. Patient has received approximate 1-1/2 L of IV fluids and blood pressure is significantly improved. No pressors have been required. Full fluid bolus was not given secondary to congestive heart failure, respiratory compromise and improvement in blood pressures. We will discontinue clindamycin. Wean stress dose steroids. Likely transition to baseline steroids tomorrow 2. Metabolic encephalitis Appears to be improving. Clinical suspicion for decreased mental status secondary to problem #1. Patient did not have a blood gas prior to BiPAP therapy, but has improved significantly following the addition of BiPAP. Less overnight delirium noted. 3. 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 Plasencia at baseline she has been consulted. Baseline creatinine appears to be around 2 and patient presented with a creatinine of almost 3. Clinical suspicion this is secondary to problem #1. No indication for renal replacement therapy at this time. Will attempt to avoid nephrotoxic agents. Hold on diuresis today. Aggressive potassium repletion for hypokalemia. Defer to nephrology. 4. Acute on chronic diastolic CHF/paroxysmal A. fib/coronary artery disease Patient on Coumadin at baseline. Coumadin should be held as INR will be prolonged given antibiotics. No indication for active reversal of INR at this time okay to continue with amiodarone. Anticipate patient's residual oxygen requirements are related to fluid resuscitation. Consider gentle diuresis as able. 5. Acute hypoxic respiratory failure secondary problem #4/KIM Patient did not have significant infiltrates on chest x-ray, but clinical picture is consistent with diastolic CHF. Patient with restriction on previous PFT, but diffusion capacity was relatively preserved. Patient's AA gradient appears to be improving with positive pressure indicating a component of pulmonary edema. Slowly improving. Patient not requiring BiPAP as much during the day, but should use it with sleep. 6. Hyperglycemia/chronic pain/advanced age/obesity Complicates care, management, recovery and prognosis. We will need to watch blood sugars closely as these may be elevated given the acute status. Would avoid opiates if possible as this can complicate respiratory status and response to BiPAP Subjective Subjective Patient did well overnight. Confusion continues to improve. Patient is not reporting any dyspnea, but still requiring 4 L nasal cannula to maintain saturations. Patient did not wear BiPAP overnight. Objective Data Objective Data Vital Signs: Vital Signs Temp Pulse Resp BP Pulse Ox O2 Del Method O2 Flow Rate 36.8 C 115 H 18 130/70 H 94 Nasal Cannula 4 09/10/22 04:00 09/10/22 07:22 09/10/22 07:22 09/10/22 04:00 09/10/22 07:22 09/10/22 07:22 09/10/22 07:22 FiO2 30 09/10/22 03:50 Oxygen Flow Rate (L/min) 4 Oxygen Delivery Method Nasal Cannula Weight: 105.5 kg Body Mass Index (BMI) 39.1 Intake & Output: Intake and Output for Last 24 Hours 09/08/22 09/09/22 09/10/22 23:59 23:59 23:59 Intake Total 1600 / 1600 730 / 730 50 / 50 Output Total 0 / 0 1550 / 1550 Balance -450 / -450 -820 / -820 50 / 50 Lab / Micro Data Attestation: I reviewed the patient's lab results. Result Diagrams: 09/10/22 04:40 09/10/22 04:40 Labs: Laboratory Results - last 24 hr 09/09/22 07:50: Random Vancomycin 16.6 H 09/09/22 10:30: MRSA (PCR) Negative 09/09/22 17:11: POC Glucose 274 H 09/09/22 21:25: POC Glucose 326 H 09/10/22 00:10: POC Glucose 288 H 09/10/22 04:40: PT 45.8 H, INR 4.9 H* 09/10/22 04:40: WBC 16.7 H, RBC 3.90 L, Hgb 12.0 L, Hct 37.3 L, MCV 95.6 H, MCH 30.8, MCHC 32.2, RDW Std Deviation 52.0 H, RDW Coeff of Alley 14.9 H, Plt Count 110 L, MPV 11.2, Immature Gran % (Auto) 1.300 H, Neut % (Auto) 92.4 H, Lymph % (Auto) 2.2 L, [place] % (Auto) 3.5, Eos % (Auto) 0.2, Baso % (Auto) 0.4, Absolute Neuts (auto) 15.4 H, Absolute Lymphs (auto) 0.37 L, Nucleated RBC % 0.2, Platelet Estimate SLT DEC, Anisocytosis 1+, Macrocytosis 1+ 09/10/22 04:40: Sodium 143, Potassium 2.7 L*, Chloride 109 H, Carbon Dioxide 25.0, Anion Gap 9, BUN 38 H, Creatinine 2.02 H, Estim Creat Clear Calc 25.79, Est GFR (MDRD) Af Amer 41 L, Est GFR (MDRD) Non-Af 34 L, BUN/Creatinine Ratio 18.8, Glucose 249 H, Calcium 8.8, Total Bilirubin 0.50, AST 17, ALT 23, Alkaline Phosphatase 93, Total Protein 6.1 L, Albumin 1.7 L, Globulin 4.4 H, Albumin/Globulin Ratio 0.4 L 09/10/22 06:02: POC Glucose 229 H Micro: Microbiology 09/07/22 11:10 Urine, Clean Catch Urine Culture - Final Staphylococcus aureus 09/07/22 16:10 Wound - Leg, Left Gram Stain - Final 09/07/22 16:10 Wound - Leg, Left Wound Culture - Final Streptococcus group C 09/07/22 09:55 Blood Culture (Wb) - Anticubital Right Blood Culture - Preliminary No growth in 48 hours. 09/07/22 10:00 Blood Culture (Wb) - Anticubital Left Blood Culture - Preliminary No growth in 48 hours. ABG Data ABG results: ABG 09/10/22 00:35 Specimen Type ART Sample Site L Radial pH 7.44 Bicarbonate Actual 22.3 Total CO2 23 Base Excess -2 O2 Saturation 97 ABG pCO2 32.9 L ABG pO2 84 Abdiel Test Positive O2 Delivery Device Cannula Liter Flow 4.0 Attestation: I personally reviewed and interpreted this ABG as follows: (Respiratory alkalosis on metabolic acidosis with increased AA gradient) Physical Exam Const alert, oriented x3 and no apparent distress Constitutional Narrative: Much more conversational today General Appearance: cooperative HEENT normocephalic Eyes PERRL, EOMs intact bilaterally and conjunctivae normal Neck full ROM, no lymphadenopathy and no JVD Chest inspection of chest normal Resp normal respiratory effort Auscultation: diminished lung sounds; Negative for rales, rhonchi or wheezes Cardio S1 normal heart sound, S2 normal heart sound, no murmurs, no rub and no gallops Rhythm: abnormal rhythm irregularly irregular GI normal to inspection, nondistended, normoactive bowel sounds Extremity Extremity Narrative: Significant weeping from the left lower extremity with serosanguineous drainage noted on Curlex General Extremity: edema bilateral (1+. Improving.) Skin Skin Narrative: Significant erythema, sharply demarcated on the left lower extremity. Area of erythema appears to be regressing in area and intensity. No crepitus is palpable. Right lower extremity has dermal atrophy, but no venous stasis changes Neuro CN's II-XII intact bilaterally, moves all extremities and no focal motor deficits Psych cooperative Mood & Affect: anxious and flat affect Charges/Coding Visit Charges Inpatient E&M: 33838 Subs Hosp L3
[2022-09-10] MEDS: Potassium Chloride Oral Tablet 20 MEQ 40 MEQ PO ×2 (09:48→17:27)
[2022-09-10] MEDS: Amiodarone 200 MG Tablet 100 MG PO (09:49)
[2022-09-10] MEDS: Pantoprazole Sodium 20 MG Tablet PO (09:49)
[2022-09-10] MEDS: Clopidogrel Bisulfate 75 MG Tablet PO (09:49)
[2022-09-10] MEDS: Aspirin 81 MG TAB.CHEW PO (09:49)
--- NOTE | 2022-09-10 09:51 | PCM.PN.HOSP ---
Subjective Subjective Slightly confused overnight but oriented and alert this morning, breathing waxes and wanes but audibly wheezing at this time, reports his legs are feeling better overall. Generalized weakness but did not complain of any focal weakness or new neurological complaints Objective Data Objective Data Vital Signs: Vital Signs Temp Pulse Resp BP Pulse Ox O2 Del Method O2 Flow Rate 98 F 131 H 19 H 147/79 H 96 Nasal Cannula 4 09/10/22 09:47 09/10/22 09:47 09/10/22 09:47 09/10/22 09:47 09/10/22 09:47 09/10/22 09:47 09/10/22 09:47 FiO2 30 09/10/22 03:50 Oxygen Flow Rate (L/min) 4 Oxygen Delivery Method Nasal Cannula Weight: 105.5 kg Body Mass Index (BMI) 39.1 Intake & Output: Intake and Output for Last 24 Hours 09/08/22 09/09/22 09/10/22 23:59 23:59 23:59 Intake Total 1600 / 1600 730 / 730 50 / 50 Output Total 2049 / 2049 1550 / 1550 Balance -450 / -450 -820 / -820 50 / 50 Lab / Micro Data Result Diagrams: 09/10/22 04:40 09/10/22 04:40 Labs: Laboratory Results - last 24 hr 09/09/22 10:30: MRSA (PCR) Negative 09/09/22 17:11: POC Glucose 274 H 09/09/22 21:25: POC Glucose 326 H 09/10/22 00:10: POC Glucose 288 H 09/10/22 04:40: PT 45.8 H, INR 4.9 H* 09/10/22 04:40: WBC 16.7 H, RBC 3.90 L, Hgb 12.0 L, Hct 37.3 L, MCV 95.6 H, MCH 30.8, MCHC 32.2, RDW Std Deviation 52.0 H, RDW Coeff of Alley 14.9 H, Plt Count 110 L, MPV 11.2, Immature Gran % (Auto) 1.300 H, Neut % (Auto) 92.4 H, Lymph % (Auto) 2.2 L, [place] % (Auto) 3.5, Eos % (Auto) 0.2, Baso % (Auto) 0.4, Absolute Neuts (auto) 15.4 H, Absolute Lymphs (auto) 0.37 L, Nucleated RBC % 0.2, Platelet Estimate SLT DEC, Anisocytosis 1+, Macrocytosis 1+ 09/10/22 04:40: Sodium 143, Potassium 2.7 L*, Chloride 109 H, Carbon Dioxide 25.0, Anion Gap 9, BUN 38 H, Creatinine 2.02 H, Estim Creat Clear Calc 25.79, Est GFR (MDRD) Af Amer 41 L, Est GFR (MDRD) Non-Af 34 L, BUN/Creatinine Ratio 18.8, Glucose 249 H, Calcium 8.8, Total Bilirubin 0.50, AST 17, ALT 23, Alkaline Phosphatase 93, Total Protein 6.1 L, Albumin 1.7 L, Globulin 4.4 H, Albumin/Globulin Ratio 0.4 L 09/10/22 06:02: POC Glucose 229 H Micro: Microbiology 09/07/22 11:10 Urine, Clean Catch Urine Culture - Final Staphylococcus aureus 09/07/22 16:10 Wound - Leg, Left Gram Stain - Final 09/07/22 16:10 Wound - Leg, Left Wound Culture - Final Streptococcus group C 09/07/22 09:55 Blood Culture (Wb) - Anticubital Right Blood Culture - Preliminary No growth in 48 hours. 09/07/22 10:00 Blood Culture (Wb) - Anticubital Left Blood Culture - Preliminary No growth in 48 hours. ABG Data ABG results: ABG 09/10/22 00:35 Specimen Type ART Sample Site L Radial pH 7.44 Bicarbonate Actual 22.3 Total CO2 23 Base Excess -2 O2 Saturation 97 ABG pCO2 32.9 L ABG pO2 84 Abdiel Test Positive O2 Delivery Device Cannula Liter Flow 4.0 Physical Exam Narrative General: Alert, oriented delete HEENT: Atraumatic, normocephalic Eyes: Anicteric, normal conjunctiva, extraocular movements grossly intact Neck: Supple Respiratory: Diffuse wheezing, slight increased work of breathing Cardiovascular: Irregularly irregular GI: Nontender, slightly firm but no rebound, guarding, rigidity Extremities: 1+ right lower extremity edema, left leg wrapped Musculoskeletal: Moving all extremities Neuro: No overt focal neurological deficits Skin: Left leg wound wrapped Psych: Cooperative Assessment & Plan Assessment/Plan (1) Severe sepsis: (2) Cellulitis of left lower leg: (3) Change in mental status: (4) Lactic acidosis: (5) Lumbar compression fracture: (6) Presence of stent in coronary artery: (7) KIM (obstructive sleep apnea): (8) Essential hypertension: (9) GERD (gastroesophageal reflux disease): (10) Paroxysmal A-fib: (11) CHF (congestive heart failure): QUALIFIERS: Heart failure type: systolic Heart failure chronicity: chronic Qualified Code(s): I50.22 - Chronic systolic (congestive) heart failure (12) Hyperglycemia: (13) CKD (chronic kidney disease), stage III: PLAN: Plan #Severe sepsis secondary to left lower extremity cellulitis due to group C strep White count 13.4 with left shift, lactic acid 5.0, LILIA on CKD Likely source left lower extremity rapidly progressive cellulitis Pancultures, Vanco, Zosyn, clindamycin added CT of lower extremity to assess for air though no crepitus felt on exam Did notify surgery and ICU team Patient hypotensive in ED but has not yet completed fluid resuscitation's at this time cannot recall the septic shock Pancultured 09/08: Is improving, continue vancomycin, Zosyn, clinda at this time. Can likely DC clinda tomorrow. Cultures pending. CT without air or obvious fluid collection so no acute intervention at this time, does seem to be improving. White blood cell slightly increased however has been started on stress dose steroids. 09/09: Leg wound growing group C strep, final culture pending and blood cultures pending. Continue current antibiotics at this time, will check MRSA swab in regards to vancomycin and DC clinda today. Patient is much improved from presentation however. He is presently still on stress dose steroids which are being weaned 09/10: Wound culture group C strep, blood cultures no growth to date. Urine culture did grow Staph aureus was pansensitive but colony count only 11,000 25,000 do not suspect that this was the culprit. Surgery evaluated leg again today and does not think that there is any drainage or intervention warranted at this time. Stress to steroids continue to be weaned and per ID recs may be able to go back to home dose tomorrow #Multi-infarct CVA of right hemisphere On presentation family had been concerned there could have been some left-sided weakness when he woke up but he was unable to participate in neurologic exam, CT showed right basal ganglia lacunae of indeterminate age Due to critical illness he was transferred to the ICU and he was not stable enough to undergo MRI On 09/08 he was taken for MRI as condition improved and he was found to have multiple infarcts in the right hemisphere: Multiple small acute infarct in the right MCA territory involving the right frontal cortex, right posterior parietal lobe, right temporal lobe, right basal ganglia. Additional old right basal ganglia lacunar infarct, chronic involutional white matter changes Contacted family at that time and ordered MRI/MRA and consulted neurology 09/09: MRA of head showed developmentally artery great A1 segment with only faint flow signal which may be due to slow flow. Partial occlusion of small caliber right A1 segment is a consideration. MRA neck demonstrated abnormal appearance of flow within the right carotid bulb which in part may be accentuated by motion artifact and torturous vessels however findings suspicious of short segment right carotid bulb stenosis and recommended consider evaluation with either CTA or Doppler for verification. Carotid ultrasound ordered. Neurology evaluated, SHAINA ordered, and aspirin + Plavix while Coumadin is held was recommended. Once Coumadin can be resumed, which per neurology would be cleared to do so on Sunday or Sunday, it is recommended to discontinue aspirin if the carotid ultrasound confirms findings of the MRI. If SHAINA concerning for vegetation and picture concerning for septic emboli we will reconsult neurology. Continue telemetry and neurochecks. 09/10: N.p.o. at midnight, SHAINA has been ordered. Neurologically unchanged at this time, PT/OT/speech. Continuing aspirin and Plavix, Coumadin is held though INR has been trending up. No signs or symptoms of bleeding at this time #Thrombocytopenia -Appears to have had this intermittently over several years, on admission was 136 and has trended down to 100, monitor closely as INR is also elevated but this may all be due to critical illness 09/10: Stable at 110 today #Paroxysmal atrial fibrillation with RVR On Coumadin at home, hold at this time INR 2.7, will trend On telemetry Continue amiodarone Holding beta-monica 09/08: Continue amiodarone, beta-blockers been held due to hypotension, INR 3.6 today. Continue to hold Coumadin 09/09: INR 4.6 today despite Coumadin being held, continue to hold and monitor for bleeding, continue amiodarone. Did have episode of RVR overnight and his beta-monica was resumed 09/10: Beta-monica increased due to A-fib with still elevated rate #Chronic asthma On prednisone 10 mg chronically, this has been attempted to be weaned as an outpatient however has been unsuccessful Stress dose steroids. We will add breathing treatments as he has wheezes and has been had difficulty weaning off BiPAP DuoNebs every 6 25: Stress dose steroids are being weaned, does have some wheezes and decreased airflow movement, suspect there is a component of overload as respiratory status improved with a dose of Lasix yesterday, daily weights, monitor fluid status closely. Continue nebs, wean O2 as able as he was not on home O2 before admission #Altered mental status Likely due to to his severe sepsis CT of the head with chronic involutional changes of the brain and tiny lacunae in the right basal ganglia which age was indeterminant Unable to participate in neurologic exam and last known normal was at 2 AM and out of the window for any intervention Stroke call not been called We will obtain MRI Echo N.p.o. PT/OT/speech 2: Significantly improved, easily reoriented. Was not stable for MRI yesterday, hold today and can consider tomorrow. 24: Has certainly improved between yesterday and today. Continue to treat underlying etiology. PT/OT/speech 2: Doing well during the day however has been experiencing delirium at night, will schedule melatonin #LILIA on CKD stage IIIb Likely due to sepsis Receiving fluids Did obtain contrasted CT scan was lower extremity to rule out necrotizing fasciitis so this may transiently worsen He follows with Dr. Plasencia with nephrology, nephrology consulted Avoid nephrotoxic agents 2/3: Creatinine did actually improved to 2.2 today, nephrology was consulted on admission 24: Continues to improve 2/5: Slightly worse today but still better than admission, continue to trend, avoid nephrotoxic agents, monitor fluid status closely, daily weights, I's and O's, per ICU recommendations will not resume home Lasix #Acute on chronic exacerbation of heart failure with preserved ejection fraction Most recent echocardiogram with EF within normal limits and indeterminate diastolic dysfunction Repeating at this time Did have BNP of 500 but chest x-ray nonspecific and given his severe sepsis and hypotension fluids are imperative Hold diuretic 2/3: echo on 09/07 with EF of 55% but study was technically limited 2/4: Still requiring at least amount of O2, will trial small dose of Lasix 2/5: Respiratory status did somewhat improve with Lasix but does have low potassium and creatinine did bump slightly, will hold off on resuming scheduled Lasix #Coronary artery disease status post stent in 2018 On aspirin and statin Holding beta-monica 09/09: Beta-monica resumed, aspirin, statin #Type 2 diabetes mellitus Checks his glucose at home but appears to no longer be on any medications for diabetes and last A1c was 5.8 though this was in 2019 Recheck A1c Glucose checks and sliding scale insulin 2: Hemoglobin A1c pending, glucose minimally elevated, once out of critical. Will likely be able to DC glucose checks and insulin 2/5: Initially glucose was well within normal range but has been elevating, sliding scale insulin. Home Januvia held, A1c was 8.5 #Chronic lower back pain secondary to multiple lumbar compression fractures Hold opioid pain medications while altered and hypotensive 2/5: Seems to be doing well without opioids at this time, given his intermittent delirium and age will avoid opioids if at all possible but will work on treating pain if it arises, could consider a topical first or Tylenol depending on severity of pain #DVT ppx: Presently therapeutic on Coumadin, Coumadin held Juhi Quinn MD Time spent in the patient's overall evaluation,decision-making process, review of diagnostic data, adjustment of management, discussion with other providers, nursing nursing and ancillary staff involved in patient's care documentation, 35 minutes Charges/Coding Visit Charges Inpatient E&M: 58122 Subs Hosp L2
[2022-09-10] MEDS: Metoprolol Tartrate 100 MG Tablet PO ×2 (09:52→21:23)
[2022-09-10] MEDS: Furosemide 20 MG/2 ML VIAL IV (10:05)
[2022-09-10] MEDS: Potassium Chloride 10mEq/100mL 10 MEQ/100 ML IV.SOLN. 100 MEQ IV BOLUS ×4 (10:06→13:36)
--- NOTE | 2022-09-10 11:01 | PCM.PN.SRG ---
Subjective Subjective Patient had no issues overnight Objective Data Objective Data Vital Signs: Vital Signs Temp Pulse Resp BP Pulse Ox O2 Del Method O2 Flow Rate 98 F 130 H 19 H 147/79 H 96 Nasal Cannula 4 09/10/22 09:47 09/10/22 09:52 09/10/22 09:47 09/10/22 09:52 09/10/22 09:47 09/10/22 09:47 09/10/22 09:47 FiO2 30 09/10/22 03:50 Oxygen Flow Rate (L/min) 4 Oxygen Delivery Method Nasal Cannula Weight: 232 lb 9.403 oz Body Mass Index (BMI) 39.1 Intake & Output: Intake and Output for Last 24 Hours 09/08/22 09/09/22 09/10/22 23:59 23:59 23:59 Intake Total 1600 / 1600 730 / 730 475 / 475 Output Total 2049 / 2049 1550 / 1550 Balance -450 / -450 -820 / -820 475 / 475 Lab / Micro Data Result Diagrams: 09/10/22 04:40 09/10/22 04:40 Labs: Laboratory Results - last 24 hr 09/09/22 10:30: MRSA (PCR) Negative 09/09/22 17:11: POC Glucose 274 H 09/09/22 21:25: POC Glucose 326 H 09/10/22 00:10: POC Glucose 288 H 09/10/22 04:40: PT 45.8 H, INR 4.9 H* 09/10/22 04:40: WBC 16.7 H, RBC 3.90 L, Hgb 12.0 L, Hct 37.3 L, MCV 95.6 H, MCH 30.8, MCHC 32.2, RDW Std Deviation 52.0 H, RDW Coeff of Alley 14.9 H, Plt Count 110 L, MPV 11.2, Immature Gran % (Auto) 1.300 H, Neut % (Auto) 92.4 H, Lymph % (Auto) 2.2 L, [place] % (Auto) 3.5, Eos % (Auto) 0.2, Baso % (Auto) 0.4, Absolute Neuts (auto) 15.4 H, Absolute Lymphs (auto) 0.37 L, Nucleated RBC % 0.2, Platelet Estimate SLT DEC, Anisocytosis 1+, Macrocytosis 1+ 09/10/22 04:40: Sodium 143, Potassium 2.7 L*, Chloride 109 H, Carbon Dioxide 25.0, Anion Gap 9, BUN 38 H, Creatinine 2.02 H, Estim Creat Clear Calc 25.79, Est GFR (MDRD) Af Amer 41 L, Est GFR (MDRD) Non-Af 34 L, BUN/Creatinine Ratio 18.8, Glucose 249 H, Calcium 8.8, Total Bilirubin 0.50, AST 17, ALT 23, Alkaline Phosphatase 93, Total Protein 6.1 L, Albumin 1.7 L, Globulin 4.4 H, Albumin/Globulin Ratio 0.4 L 09/10/22 06:02: POC Glucose 229 H Micro: Microbiology 09/07/22 11:10 Urine, Clean Catch Urine Culture - Final Staphylococcus aureus 09/07/22 16:10 Wound - Leg, Left Gram Stain - Final 09/07/22 16:10 Wound - Leg, Left Wound Culture - Final Streptococcus group C 09/07/22 09:55 Blood Culture (Wb) - Anticubital Right Blood Culture - Preliminary No growth in 48 hours. 09/07/22 10:00 Blood Culture (Wb) - Anticubital Left Blood Culture - Preliminary No growth in 48 hours. ABG Data ABG results: ABG 09/10/22 00:35 Specimen Type ART Sample Site L Radial pH 7.44 Bicarbonate Actual 22.3 Total CO2 23 Base Excess -2 O2 Saturation 97 ABG pCO2 32.9 L ABG pO2 84 Abdiel Test Positive O2 Delivery Device Cannula Liter Flow 4.0 Assessment & Plan Assessment/Plan (1) Cellulitis of left lower leg: PLAN: I unwrapped the patient's left lower extremity. There is no fluctuance or drainage of purulent material. No abscess that I can see to drain. His leg was rewrapped and gauze and pressure dressing. Ayan Giles MD Pager: [facility] [address] [place] [address], [address] [place] [address] Office:
[2022-09-10 13:05] LABS: Bedside Glucose 290 mg/dL (74-106)
[2022-09-10] MEDS: Menthol/Lanolin/Calamine/Znox 113 GM Tube 1 APPLIC TOPICAL ×2 (15:41→21:23)
[2022-09-10 17:55] LABS: Bedside Glucose 255 mg/dL (74-106)
[2022-09-10] MEDS: MELATONIN 10 MG TABLET PO (21:23)
[2022-09-10] MEDS: Atorvastatin Calcium 40 MG Tablet PO (21:24)
[2022-09-10 21:50] LABS: Bedside Glucose 253 mg/dL (74-106)
[2022-09-11] VITALS (26 sets, daily range): BP systolic 130–150; BP diastolic 75–110; PULSE 76–132; RESP 12–30; TEMP 36.6–37.2; O2SAT 86–98
[2022-09-11] MEDS: Menthol/Lanolin/Calamine/Znox 113 GM Tube 1 APPLIC TOPICAL ×3 (05:40→22:11)
[2022-09-11] MEDS: Ipratropium/Albuterol Sulfate 3 ML AMPUL.NEB INHALATION ×3 (06:36→19:46)
[2022-09-11 06:37] LABS: Absolute Lymphocyte Count 0.31 X10^3/uL (0.83-4.51); Absolute Neutrophil Count 7.9 X10^3/uL (2.0-7.7); Basophil# 0.02 X10^3/uL; Basophil% 0.2 % (0-1); Hematocrit 36.9 % (40-54); Hemoglobin 11.9 g/dL (13.0-16.5); Lymphocyte # 0.31 X10^3/ul (0.83-4.51); Lymphocyte % 3.6 % (19-41); Mean Corp Hgb Conc 32.2 g/dL (32-36); Mean Corpuscular Hgb 30.1 pg (27.0-32.0); Mean Corpuscular Volume 93.4 fL (80-94); Mean Platelet Vol. 10.8 fl (6.2-12.0); Monocyte# 0.38 X10^3/uL; Monocyte% 4.4 % (0-10); NRBC Flagged by Analyzer 0.2 % (0-5); Neutrophil # 7.89 X10^3/uL (2.7-7.7); Neutrophil % 90.8 % (47-70); POSITIVE DIFFERENTIAL YES; Platelet Count 110 K/mm3 (150-450); RBC Distribution Width CV 15.2 % (11.6-14.6); RBC Distribution Width SD 52.6 fl (35.1-43.9); Red Blood Count 3.95 M/mm3 (4.6-6.2); White Blood Count 8.7 K/mm3 (4.4-11.0)
[2022-09-11] MEDS: Insulin Lispro 100 UNIT/ML INSULN.PEN SC ×4 (06:48→22:12)
[2022-09-11 07:15] LABS: Bedside Glucose 223 mg/dL (74-106)
[2022-09-11 07:23] LABS: ALB/GLOB Ratio 0.4 RATIO (0.9-2.4); AST(SGOT) 28 U/L (15-37); Alanine Aminotransfer ALT/SGPT 31 U/L (16-61); Albumin, Serum 1.6 g/dL (3.2-5.0); Alkaline Phosphatase 90 U/L (45-117); Anion Gap 8 (5-15); BUN 38 mg/dL (7-18); BUN/Creat Ratio 24.5 RATIO (10-20); Calcium,Total 8.9 mg/dL (8.5-10.1); Chloride 110 mmol/L (98-107); Creatinine, Serum 1.55 mg/dL (0.70-1.30); EST Glomerular Filtration Rate 46 mL/min (>60); Est Glom Filt Rate - Afr Amer 56 mL/min (>60); Estimated Creatinine Clearance 33.62 ml/min; Globulin 4.4 g/dL (2.2-4.2); Glucose 225 mg/dL (74-106); Potassium 3.5 mmol/L (3.5-5.1); Sodium Level 143 mmol/L (136-145)
[2022-09-11 07:34] LABS: Differential Indicated SCAN CRITERIA MET
[2022-09-11 07:38] LABS: International Normalized Ratio 3.4; Prothrombin Time (Protime)PT. 33.9 SECONDS (11.7-14.9)
[2022-09-11 07:51] LABS: Anisocytosis 1+; Platelet Estimate SLT DEC (ADEQ)
--- NOTE | 2022-09-11 08:01 | NURSING ---
pt down for harlan via bed.
--- NOTE | 2022-09-11 08:58 | NURSING ---
0850 pt returned from laboratory geneticist and only 86% on 8l. pt awake and alert but with hx of caridad placed on bipap at bedside. iv fluids stopped. lungs coarse ant b/l with wheezes. cps called d/t pt sats not coming up on 30% .
--- NOTE | 2022-09-11 09:04 | NURSING ---
cps in and bipap increased to 50% and pt sats 90%.
--- NOTE | 2022-09-11 09:07 | NURSING ---
0906 cps increased bipap to 60% and sats up to 95%
[2022-09-11] MEDS: Hydrocortisone Sod Succinate 100 MG/2 ML Vial 50 MG IV ×2 (11:39→22:12)
[2022-09-11] MEDS: Furosemide 100 MG/10 ML Vial 80 MG IV (11:40)
[2022-09-11] MEDS: 0.9% Saline Lock 10 ML Syringe IV ×2 (11:41→22:12)
[2022-09-11 12:06] LABS: Bedside Glucose 189 mg/dL (74-106)
--- NOTE | 2022-09-11 13:20 | RAD_ITS ---
STUDY: X-RAY CHEST REASON FOR EXAM: Male, 81 years old. Respiratory Failure TECHNIQUE: Single AP portable view of the chest. COMPARISON: Comparison is made with prior study of 09/07/2022. FINDINGS: EKG electrodes are seen. Mild increased markings at the lung bases with areas of confluence worse in the right lower lobe. This has progressed as compared to prior study. This may represent bibasilar atelectasis and/or infiltrate. Normal size heart. Normal mediastinum and rishabh. Normal visualized pulmonary arteries. There is atherosclerotic calcification of the aortic arch with tortuosity. There are diffuse degenerative changes of the visualized thoracic spine. There is degenerative osteoarthritis of the bilateral shoulders. There is no demonstrated abnormality of the visualized soft tissue structures of the upper abdomen. RAD/Chest 1 View (Portable) IMPRESSION: Increased markings at the lung bases reveals confluence worse at the right lung base. This is suggestive bibasilar atelectasis and/or scarring. Blunting of both prosthetic angles. Electronically Signed: Bacilio Mitchell MD at 13:58 EST ,
--- NOTE | 2022-09-11 13:22 | PN.CC_ITS ---
Assessment & Plan Assessment/Plan (1) Sepsis: PLAN: Plan RECOMMENDATIONS: 1. Transition from BiPAP to heated high flow. Wean FiO2 to maintain saturations at or above 90%. 2. Continue antimicrobials. 3. Obtain follow-up chest x-ray and BNP. 4. Continue bronchodilators as ordered. 5. Continue to wean stress dose steroids. IMPRESSIONS: 1. Shortness of breath and hypoxemia Clinical concern for underlying decompensated heart failure with preserved ejection fraction. Diuretics have been on hold due to underlying renal insuff iciency. Plan to obtain follow-up chest x-ray today. Recheck BNP. Okay from my perspective to wean the patient from BiPAP to heated high flow with a goal to maintain oxygen saturations at or above 90%. 2. Sepsis secondary to lower extremity cellulitis Continue antimicrobials to complete treatment course. Continue to wean stress dose steroids as tolerated. 3. History of paroxysmal atrial fibrillation/coronary artery disease/obstructive sleep apnea/obesity/chronic kidney disease Complicates care, management, recovery and prognosis. Continue home medications as indicated. This note was generated with [employer] dictation software. It may contain incorrect words, spelling, and punctuation that were not noted in checking the note before signing. Subjective Subjective The patient was seen and examined at the bedside this morning. Events from the last 24 hours have been reviewed. The patient is currently afebrile, hemodynamically stable and maintaining appropriate oxygen saturations on BiPAP with an FiO2 of 50%. The patient underwent a transesophageal echocardiogram earlier today. His FiO2 requirement had to be increased as a consequence of this procedure. However, he has now back to his room and doing relatively well. He denies any resting shortness of breath. He is anxious to have the BiPAP mask removed. The patient is documented to be overall net -600 mL for the hospitalization. Objective Data Objective Data The patient's most recent lab work, culture data and imaging studies have all been personally reviewed. Transesophageal echocardiogram completed on September 11 demonstrated normal LV size and function with an ejection fraction of 60%. The RV was noted to be normal in size and function. Bubble contrast study was negative for shunt. No thrombus was identified. Vital Signs: Vital Signs Temp Pulse Resp BP Pulse Ox O2 Del Method O2 Flow Rate 97.9 F 108 H 25 H 138/89 H 91 Bi-pap 45 09/11/22 10:50 09/11/22 10:50 09/11/22 10:50 09/11/22 10:50 09/11/22 10:50 09/11/22 10:50 09/11/22 10:00 FiO2 50 09/11/22 10:50 Oxygen Flow Rate (L/min) 45 Oxygen Delivery Method Bi-pap Weight: 234 lb 9.149 oz Body Mass Index (BMI) 39.1 Intake & Output: Intake and Output for Last 24 Hours 09/09/22 09/10/22 09/11/22 23:59 23:59 23:59 Intake Total 730 / 730 985 / 985 79.38 / 79.38 Output Total 1550 / 1550 500 / 500 1200 / 1200 Balance -820 / -820 485 / 485 -1120.62 / -1120.62 Lab / Micro Data Attestation: I reviewed the patient's lab results. Result Diagrams: 09/12/22 05:30 09/12/22 05:30 Labs: Laboratory Results - last 24 hr 09/10/22 17:24: POC Glucose 255 H 09/10/22 21:18: POC Glucose 253 H 09/11/22 05:25: PT 33.9 H, INR 3.4 09/11/22 05:25: WBC 8.7, RBC 3.95 L, Hgb 11.9 L, Hct 36.9 L, MCV 93.4, MCH 30.1, MCHC 32.2, RDW Std Deviation 52.6 H, RDW Coeff of Alley 15.2 H, Plt Count 110 L, MPV 10.8, Immature Gran % (Auto) 1.000 H, Neut % (Auto) 90.8 H, Lymph % (Auto) 3.6 L, [place] % (Auto) 4.4, Eos % (Auto) 0.0, Baso % (Auto) 0.2, Absolute Neuts (auto) 7.9 H, Absolute Lymphs (auto) 0.31 L, Nucleated RBC % 0.2, Platelet Estimate SLT DEC, Anisocytosis 1+ 09/11/22 05:25: Sodium 143, Potassium 3.5, Chloride 110 H, Carbon Dioxide 25.0, Anion Gap 8, BUN 38 H, Creatinine 1.55 H, Estim Creat Clear Calc 33.62, Est GFR (MDRD) Af Amer 56 L, Est GFR (MDRD) Non-Af 46 L, BUN/Creatinine Ratio 24.5 H, Glucose 225 H, Calcium 8.9, Total Bilirubin 0.60, AST 28, ALT 31, Alkaline Phosphatase 90, Total Protein 6.0 L, Albumin 1.6 L, Globulin 4.4 H, Albumin/Globulin Ratio 0.4 L 09/11/22 06:46: POC Glucose 223 H 09/11/22 11:36: POC Glucose 189 H Micro: Microbiology 09/07/22 16:10 Wound Drainage - Leg Anaerobic Culture - Preliminary Checking for anaerobes, further studies to follow. 09/11/22 06:45 Nasal Secretion SARS-CoV-2 Antigen (Rapid) - Final 09/07/22 11:10 Urine, Clean Catch Urine Culture - Final Staphylococcus aureus 09/07/22 16:10 Wound - Leg, Left Gram Stain - Final 09/07/22 16:10 Wound - Leg, Left Wound Culture - Final Streptococcus group C 09/07/22 09:55 Blood Culture (Wb) - Anticubital Right Blood Culture - Preliminary No growth in 48 hours. 09/07/22 10:00 Blood Culture (Wb) - Anticubital Left Blood Culture - Preliminary No growth in 48 hours. Radiography Diagnostic Testing: Radiology Impression Transesophageal Echocardiogram 09/09/22 00:57 Interpretation Summary Normal left ventricle. Left ventricular systolic function is normal. The estimated ejection fraction is 60 %. Intact atrial septum Bubble contrast study negative for right to left interatrial shunt. No thrombus is detected in the left atrial appendage. Ordering Physician: Selina Grissom Referring Physician: MD Aman Eric Performed By: Diya Quan RDCS Physical Exam Const alert and no apparent distress Constitutional Narrative: Currently tolerating BiPAP without issue. General Appearance: cooperative HEENT normocephalic and head/scalp atraumatic Eyes PERRL, EOMs intact bilaterally and conjunctivae normal Neck supple General: trachea midline Chest inspection of chest normal Resp normal respiratory effort Auscultation: diminished lung sounds Cardio S1 normal heart sound and S2 normal heart sound Rhythm: abnormal rhythm GI normal to inspection, nondistended, normoactive bowel sounds Extremity General Extremity: edema Neuro CN's II-XII intact bilaterally and no focal motor deficits Psych cooperative and affect normal Charges/Coding Visit Charges Inpatient E&M: 43121 Subs Hosp L2
--- NOTE | 2022-09-11 13:22 | PCM.PN.HOSP ---
Subjective Subjective Patient is a 81-year-old male admitted with left lower extremity cellulitis due to group C strep. Hospital stay complicated by development of multi-infarct CVA involving the right hemisphere Objective Data Objective Data Vital Signs: Vital Signs Temp Pulse Resp BP Pulse Ox O2 Del Method O2 Flow Rate 97.9 F 108 H 25 H 138/89 H 91 Bi-pap 45 09/11/22 10:50 09/11/22 10:50 09/11/22 10:50 09/11/22 10:50 09/11/22 10:50 09/11/22 10:50 09/11/22 10:00 FiO2 50 09/11/22 10:50 Oxygen Flow Rate (L/min) 45 Oxygen Delivery Method Bi-pap Weight: 106.4 kg Body Mass Index (BMI) 39.1 Intake & Output: Intake and Output for Last 24 Hours 09/09/22 09/10/22 09/11/22 23:59 23:59 23:59 Intake Total 730 / 730 985 / 985 79.38 / 79.38 Output Total 1550 / 1550 500 / 500 1200 / 1200 Balance -820 / -820 485 / 485 -1120.62 / -1120.62 Lab / Micro Data Result Diagrams: 09/11/22 05:25 09/11/22 05:25 Labs: Laboratory Results - last 24 hr 09/10/22 17:24: POC Glucose 255 H 09/10/22 21:18: POC Glucose 253 H 09/11/22 05:25: PT 33.9 H, INR 3.4 09/11/22 05:25: WBC 8.7, RBC 3.95 L, Hgb 11.9 L, Hct 36.9 L, MCV 93.4, MCH 30.1, MCHC 32.2, RDW Std Deviation 52.6 H, RDW Coeff of Alley 15.2 H, Plt Count 110 L, MPV 10.8, Immature Gran % (Auto) 1.000 H, Neut % (Auto) 90.8 H, Lymph % (Auto) 3.6 L, [place] % (Auto) 4.4, Eos % (Auto) 0.0, Baso % (Auto) 0.2, Absolute Neuts (auto) 7.9 H, Absolute Lymphs (auto) 0.31 L, Nucleated RBC % 0.2, Platelet Estimate SLT DEC, Anisocytosis 1+ 09/11/22 05:25: Sodium 143, Potassium 3.5, Chloride 110 H, Carbon Dioxide 25.0, Anion Gap 8, BUN 38 H, Creatinine 1.55 H, Estim Creat Clear Calc 33.62, Est GFR (MDRD) Af Amer 56 L, Est GFR (MDRD) Non-Af 46 L, BUN/Creatinine Ratio 24.5 H, Glucose 225 H, Calcium 8.9, Total Bilirubin 0.60, AST 28, ALT 31, Alkaline Phosphatase 90, Total Protein 6.0 L, Albumin 1.6 L, Globulin 4.4 H, Albumin/Globulin Ratio 0.4 L 09/11/22 06:46: POC Glucose 223 H 09/11/22 11:36: POC Glucose 189 H Micro: Microbiology 09/07/22 16:10 Wound Drainage - Leg Anaerobic Culture - Preliminary Checking for anaerobes, further studies to follow. 09/11/22 06:45 Nasal Secretion SARS-CoV-2 Antigen (Rapid) - Final 09/07/22 11:10 Urine, Clean Catch Urine Culture - Final Staphylococcus aureus 09/07/22 16:10 Wound - Leg, Left Gram Stain - Final 09/07/22 16:10 Wound - Leg, Left Wound Culture - Final Streptococcus group C 09/07/22 09:55 Blood Culture (Wb) - Anticubital Right Blood Culture - Preliminary No growth in 48 hours. 09/07/22 10:00 Blood Culture (Wb) - Anticubital Left Blood Culture - Preliminary No growth in 48 hours. Radiography Diagnostic Testing: Radiology Impression Transesophageal Echocardiogram 09/09/22 00:57 Interpretation Summary Normal left ventricle. Left ventricular systolic function is normal. The estimated ejection fraction is 60 %. Intact atrial septum Bubble contrast study negative for right to left interatrial shunt. No thrombus is detected in the left atrial appendage. Ordering Physician: Selina Grissom Referring Physician: MD Eric Newton Performed By: Diya Quan RDCS Physical Exam Narrative GENERAL: cooperative HEENT: Atraumatic; normocephalic EYES; Anicteric, Normal Conjunctiva NECK; supple, normal thyroid, RESPIRATORY: Diminished to auscultation CARDIOVASCULAR: Regular S1 S2, GI: soft, normoactive bowel sounds, : No Renal angle tenderness; EXTREMITIES: Edema involving both upper and lower extremities MUSCULOSKELETAL: no muscle wasting NEURO: Awake; no lateralizing signs. SKIN: No Rash PSYCH; Flat affect Assessment & Plan Assessment/Plan (1) Severe sepsis: PLAN: Plan Patient is a 81-year-old male admitted with left lower extremity cellulitis due to group C strep. Hospital stay complicated by development of multi-infarct CVA involving the right hemisphere 1. Severe sepsis secondary to left lower extremity cellulitis ? Secondary to group C strep. Patient managed with broad-spectrum antibiotic therapy with Zosyn. Zosyn has been switched to cefdinir 2. Multi-infarct CVA of right hemisphere ? Patient was foundund to have multiple infarcts in the right hemisphere: Multiple small acute infarct in the right MCA territory involving the right frontal cortex, right posterior parietal lobe, right temporal lobe, right basal ganglia. Additional old right basal ganglia lacunar infarct, chronic involutional white matter changes. MRA demonstrated developmentally artery great A1 segment with only faint flow signal which may be due to slow flow. Partial occlusion of small caliber right A1 segment is a consideration. MRA neck demonstrated abnormal appearance of flow within the right carotid bulb which in part may be accentuated by motion artifact and torturous vessels however findings suspicious of short segment right carotid bulb stenosis and recommended consider evaluation with either CTA or Doppler for verification. Carotid ultrasound ordered. Neurology evaluated, SHAINA ordered, and aspirin + Plavix while Coumadin is held was recommended. 3. Paroxysmal A-fib with RVR ? Patient is on Coumadin and amiodarone. Coumadin has been held due to elevated INR 4. Mild thrombocytopenia ? Stable continue with monitoring 5. Mild intermittent asthma ? DuoNebs as needed 6. Acute kidney injury ? Superimposed on chronic kidney disease stage III ? Monitoring with daily BMPs nephrology on board 7. Class II obesity with BMI of 39 ? Weight loss advised 8. Acute on chronic congestive heart failure with preserved ejection fraction ? Echo obtained on 09/07/2022 demonstrated EF of 55%. In view of patient worsening edema patient diuretics reinitiated 9. Coronary artery disease ? With previous PCI in 2018 10. Diabetes mellitus type II -patient's oral hypoglycemics held. Placed on long acting insulin, Accu-Cheks a.c. and at bedtime and covered with sliding scale insulin 11. Chronic back pain ? With history of multiple lumbar compression fractures ? Patient pain meds held in view of delirium 12. DVT prophylaxis ? Patient is on Coumadin INR is therapeutic Time spent in the patient's overall evaluation,decision-making process, review of diagnostic data, adjustment of management, discussion with other providers, nursing nursing and ancillary staff involved in patient's care documentation, 55 Minutes Charges/Coding Visit Charges Inpatient E&M: 07754 [facility] Hosp L3
[2022-09-11] MEDS: Aspirin 81 MG TAB.CHEW PO (13:31)
[2022-09-11] MEDS: Metoprolol Tartrate 100 MG Tablet PO ×2 (13:32→22:11)
[2022-09-11] MEDS: Amiodarone 200 MG Tablet 100 MG PO (13:32)
[2022-09-11] MEDS: Clopidogrel Bisulfate 75 MG Tablet PO (13:33)
[2022-09-11] MEDS: Pantoprazole Sodium 20 MG Tablet PO (13:33)
[2022-09-11 14:15] LABS: BNP,B-Type NATRIURETIC PEPTIDE 485.8 pg/mL (0-100)
--- NOTE | 2022-09-11 14:40 | CHAPLAIN ---
Type of Pastoral Visit ___ Initial Visit _x__ Follow-up Visit ___ On-call Visit ___ General Patient Visit ___ Spiritual Assessment ___ Family Conference ___ Bereavement ___ Rapid Response ___ Code Blue ___ Other (describe below) Pastoral Care Referral From _x__ Patient _x__ Family ___ Nurse ___ Physician ___ Clerk Manager ___ Galvanizing Pot Runner ___ Other (describe below) Sacrament/Intervention _x__ Active listening ___ Anointing ___ Episcopalian ___ Bereavement ___ Communion _x__ Tori exploration ___ ___ Life review _x__ Prayer ___ Reconciliation ___ Sacrament of Sick _x__ Supportive presence ___ Wedding ___ Other (describe below) Pastoral Comments patient was seen briefly last week; today patient states some improvements and that he will accept whatever the Lord wants; 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
--- NOTE | 2022-09-11 15:00 | CASEMGMT ---
RN CM in to discuss HHC with patient and family. A list of HHC providers including quality and resource use data and consistent with the patient?s preferred geographical region, medical needs, and insurance network were provided from the [employer] Guide. Family to review list and provide choices. RN SHERRY discussed home oxygen equipment with patient and family. Family confirmed that patient has POC that goes up to 6lpm and concentrator that goes up to 5lpm. CM will continue to follow this patient and plan for a safe discharge.
--- NOTE | 2022-09-11 15:43 | WOUNDNOTE ---
skin photo: left lower leg
--- NOTE | 2022-09-11 15:43 | WOUNDNOTE ---
wound/skin photo: left lower leg
[2022-09-11 17:56] LABS: Bedside Glucose 212 mg/dL (74-106)
[2022-09-11] MEDS: MELATONIN 10 MG TABLET PO (22:12)
[2022-09-11] MEDS: Atorvastatin Calcium 40 MG Tablet PO (22:12)
[2022-09-12] VITALS (22 sets, daily range): BP systolic 116–152; BP diastolic 72–89; PULSE 64–110; RESP 12–30; TEMP 36.5–37.2; O2SAT 93–97; BMI 39.1
[2022-09-12 00:26] LABS: Bedside Glucose 229 mg/dL (74-106)
[2022-09-12] MEDS: Menthol/Lanolin/Calamine/Znox 113 GM Tube 1 APPLIC TOPICAL ×3 (06:21→21:54)
[2022-09-12] MEDS: Levothyroxine 50 MCG Tablet PO (06:21)
[2022-09-12] MEDS: Insulin Lispro 100 UNIT/ML INSULN.PEN SC ×4 (06:21→21:54)
[2022-09-12 06:25] LABS: Absolute Lymphocyte Count 0.51 X10^3/uL (0.83-4.51); Absolute Neutrophil Count 7.8 X10^3/uL (2.0-7.7); Basophil# 0.02 X10^3/uL; Basophil% 0.2 % (0-1); Differential Indicated SCAN CRITERIA MET; Eosinophil# 0.01 X10^3/uL; Eosinophils% 0.1 % (0-5); Hematocrit 38.2 % (40-54); Hemoglobin 12.2 g/dL (13.0-16.5); Lymphocyte # 0.51 X10^3/ul (0.83-4.51); Lymphocyte % 5.9 % (19-41); Mean Corp Hgb Conc 31.9 g/dL (32-36); Mean Corpuscular Hgb 30.1 pg (27.0-32.0); Mean Corpuscular Volume 94.3 fL (80-94); Mean Platelet Vol. 10.6 fl (6.2-12.0); Monocyte# 0.29 X10^3/uL; Monocyte% 3.3 % (0-10); NRBC Flagged by Analyzer 0 % (0-5); Neutrophil # 7.75 X10^3/uL (2.7-7.7); Neutrophil % 89.3 % (47-70); POSITIVE DIFFERENTIAL YES; Platelet Count 133 K/mm3 (150-450); RBC Distribution Width CV 15.2 % (11.6-14.6); Red Blood Count 4.05 M/mm3 (4.6-6.2); White Blood Count 8.7 K/mm3 (4.4-11.0)
[2022-09-12 06:38] LABS: International Normalized Ratio 2.5; Prothrombin Time (Protime)PT. 27.1 SECONDS (11.7-14.9)
[2022-09-12 06:56] LABS: Anion Gap 9 (5-15); BUN 40 mg/dL (7-18); BUN/Creat Ratio 25.8 RATIO (10-20); Calcium,Total 8.8 mg/dL (8.5-10.1); Chloride 106 mmol/L (98-107); Creatinine, Serum 1.55 mg/dL (0.70-1.30); EST Glomerular Filtration Rate 46 mL/min (>60); Est Glom Filt Rate - Afr Amer 56 mL/min (>60); Estimated Creatinine Clearance 33.62 ml/min; Glucose 214 mg/dL (74-106); Sodium Level 143 mmol/L (136-145)
[2022-09-12] MEDS: Ipratropium/Albuterol Sulfate 3 ML AMPUL.NEB INHALATION ×3 (06:59→19:46)
[2022-09-12 07:01] LABS: Anisocytosis 1+; Platelet Estimate SLT DEC (ADEQ)
[2022-09-12 07:15] LABS: Bedside Glucose 186 mg/dL (74-106)
--- NOTE | 2022-09-12 08:13 | PN.HOSP_ITS ---
Subjective Subjective Patient seen currently on noninvasive ventilationAirvo. Chest x-ray obtained the day prior demonstrated confluence at the bases worse on the right. Patient did develop an area of induration on the medial aspect of the left thigh Objective Data Objective Data Vital Signs: Vital Signs Temp Pulse Resp BP Pulse Ox O2 Del Method O2 Flow Rate 98.8 F 110 H 20 H 152/87 H 94 Airvo 25 09/12/22 06:00 09/12/22 07:28 09/12/22 07:28 09/12/22 06:00 09/12/22 06:00 09/12/22 06:00 09/11/22 17:00 FiO2 39 09/12/22 06:00 Oxygen Flow Rate (L/min) 25 Oxygen Delivery Method Airvo Weight: 107 kg Body Mass Index (BMI) 39.1 Intake & Output: Intake and Output for Last 24 Hours 09/10/22 09/11/22 09/12/22 23:59 23:59 23:59 Intake Total 985 / 985 609.38 / 609.38 50 / 50 Output Total 500 / 500 2450 / 3600 1600 / 1600 Balance 485 / 485 -1840.62 / -2990.62 -1550 / -1550 Lab / Micro Data Result Diagrams: 09/12/22 05:30 09/12/22 05:30 Labs: Laboratory Results - last 24 hr 09/11/22 05:25: B-Natriuretic Peptide 485.8 H 09/11/22 11:36: POC Glucose 189 H 09/11/22 17:28: POC Glucose 212 H 09/11/22 22:08: POC Glucose 229 H 09/12/22 05:30: PT 27.1 H, INR 2.5 09/12/22 05:30: WBC 8.7, RBC 4.05 L, Hgb 12.2 L, Hct 38.2 L, MCV 94.3 H, MCH 30.1, MCHC 31.9 L, RDW Std Deviation 53.0 H, RDW Coeff of Alley 15.2 H, Plt Count 133 L, MPV 10.6, Immature Gran % (Auto) 1.200 H, Neut % (Auto) 89.3 H, Lymph % (Auto) 5.9 L, [place] % (Auto) 3.3, Eos % (Auto) 0.1, Baso % (Auto) 0.2, Absolute Neuts (auto) 7.8 H, Absolute Lymphs (auto) 0.51 L, Nucleated RBC % 0, Platelet Estimate SLT DEC, Anisocytosis 1+ 09/12/22 05:30: Sodium 143, Potassium 3.0 L, Chloride 106, Carbon Dioxide 28.0, Anion Gap 9, BUN 40 H, Creatinine 1.55 H, Estim Creat Clear Calc 33.62, Est GFR (MDRD) Af Amer 56 L, Est GFR (MDRD) Non-Af 46 L, BUN/Creatinine Ratio 25.8 H, Glucose 214 H, Calcium 8.8 09/12/22 06:19: POC Glucose 186 H Micro: Microbiology 09/07/22 16:10 Wound Drainage - Leg Anaerobic Culture - Preliminary Checking for anaerobes, further studies to follow. 09/11/22 06:45 Nasal Secretion SARS-CoV-2 Antigen (Rapid) - Final 09/07/22 11:10 Urine, Clean Catch Urine Culture - Final Staphylococcus aureus 09/07/22 16:10 Wound - Leg, Left Gram Stain - Final 09/07/22 16:10 Wound - Leg, Left Wound Culture - Final Streptococcus group C 09/07/22 09:55 Blood Culture (Wb) - Anticubital Right Blood Culture - Preliminary No growth in 48 hours. 09/07/22 10:00 Blood Culture (Wb) - Anticubital Left Blood Culture - Preliminary No growth in 48 hours. Radiography Diagnostic Testing: Radiology Impression Carotid Duplex 09/09/22 00:56 Interpretation Summary Irregular plaque noted at the proximal right internal carotid artery with greater than 70% stenosis and likely greater than 80% stenosis of the internal carotid artery Less than 50% stenosis right external carotid artery Irregular plaque at the proximal left internal carotid artery with less than 50% stenosis Less than 50% stenosis left external carotid artery Patent and antegrade vertebral arteries bilaterally Ordering Physician: Selina Grissom Referring Physician: MD Eric Newton Performed By: Wen Cam, RVT Transesophageal Echocardiogram 09/09/22 00:57 Interpretation Summary Normal left ventricle. Left ventricular systolic function is normal. The estimated ejection fraction is 60 %. Intact atrial septum Bubble contrast study negative for right to left interatrial shunt. No thrombus is detected in the left atrial appendage. Ordering Physician: Selina Grissom Referring Physician: MD Aman Eric Performed By: Diya Quan, CS Chest X-Ray 09/11/22 13:20 IMPRESSION: Increased markings at the lung bases reveals confluence worse at the right lung base. This is suggestive bibasilar atelectasis and/or scarring. Blunting of both prosthetic angles. Electronically Signed: Bacilio Mitchell MD at 13:58 EST , Physical Exam Narrative GENERAL: cooperative HEENT: Atraumatic; normocephalic EYES; Anicteric, Normal Conjunctiva NECK; supple, normal thyroid, RESPIRATORY: Diminished to auscultation CARDIOVASCULAR: Regular S1 S2, GI: soft, normoactive bowel sounds, : No Renal angle tenderness; EXTREMITIES: Edema involving both upper and lower extremities MUSCULOSKELETAL: no muscle wasting NEURO: Awake; no lateralizing signs. SKIN: Area of induration on the medial aspect of the left thigh PSYCH; Flat affect Assessment & Plan Assessment/Plan (1) Severe sepsis: PLAN: Plan Patient is a 81-year-old male admitted with left lower extremity cellulitis due to group C strep. Hospital stay complicated by development of multi-infarct CVA involving the right hemisphere 1. Severe sepsis secondary to left lower extremity cellulitis ? Secondary to group C strep. Patient managed with broad-spectrum antibiotic therapy with Zosyn. Zosyn has been switched to cefdinir 2. Multi-infarct CVA of right hemisphere ? Patient was foundund to have multiple infarcts in the right hemisphere: Multiple small acute infarct in the right MCA territory involving the right frontal cortex, right posterior parietal lobe, right temporal lobe, right basal ganglia. Additional old right basal ganglia lacunar infarct, chronic involutional white matter changes. MRA demonstrated developmentally artery great A1 segment with only faint flow signal which may be due to slow flow. Partial occlusion of small caliber right A1 segment is a consideration. MRA neck demonstrated abnormal appearance of flow within the right carotid bulb which in part may be accentuated by motion artifact and torturous vessels however findings suspicious of short segment right carotid bulb stenosis and recommended consider evaluation with either CTA or Doppler for verification. Carotid ultrasound ordered. Neurology evaluated, SHAINA ordered, and aspirin + Plavix while Coumadin is held was recommended. -09/12/2022; carotid ultrasound demonstrated irregular plaque noted in the proximal right internal carotid artery with greater than 70% stenosis and likely greater than 80% stenosis of the internal carotid artery. Patient was found to have less than 50% stenosis of the left internal carotid artery 3. Paroxysmal A-fib with RVR ? Patient is on Coumadin and amiodarone. Coumadin has been held due to elevated INR 4. Mild thrombocytopenia ? Stable continue with monitoring 5. Mild intermittent asthma ? DuoNebs as needed 6. Acute kidney injury ? Superimposed on chronic kidney disease stage III ? Monitoring with daily BMPs nephrology on board 7. Class II obesity with BMI of 39 ? Weight loss advised 8. Acute on chronic congestive heart failure with preserved ejection fraction ? Echo obtained on 09/07/2022 demonstrated EF of 55%. In view of patient worsening edema patient diuretics reinitiated 9. Coronary artery disease ? With previous PCI in 2018 10. Diabetes mellitus type II -patient's oral hypoglycemics held. Placed on long acting insulin, Accu-Cheks a.c. and at bedtime and covered with sliding scale insulin 11. Chronic back pain ? With history of multiple lumbar compression fractures ? Patient pain meds held in view of delirium 12. DVT prophylaxis ? Patient is on Coumadin INR is therapeutic 13. Physical deconditioning - Requested for PT OT eval and psychosocial rehabilitation counselor to assist with discharge planning Time spent in the patient's overall evaluation,decision-making process, review of diagnostic data, adjustment of management, discussion with other providers, nursing nursing and ancillary staff involved in patient's care documentation, 55 Minutes Charges/Coding Visit Charges Inpatient E&M: 70222 Subs Hosp L3 Reason for Visit Reason for Visit: Diagnoses Sepsis, unspecified organism (09/07/22) Acidosis, unspecified (09/07/22) Obstructive sleep apnea (adult) (pediatric) (09/07/22) Essential (primary) hypertension (09/07/22) Paroxysmal atrial fibrillation (09/07/22) Chronic systolic (congestive) heart failure (09/07/22) Gastro-esophageal reflux disease without esophagitis (09/07/22) Cellulitis of left lower limb (09/07/22) Acute kidney failure, unspecified (09/07/22) Chronic kidney disease, stage 3 unspecified (09/07/22) Chronic kidney disease, unspecified (09/07/22) Altered mental status, unspecified (09/07/22) Severe sepsis without septic shock (09/07/22) Hyperglycemia, unspecified (09/07/22) Wedge compression fracture of unspecified lumbar vertebra, initial encounter for closed fracture (09/07/22) Presence of coronary angioplasty implant and graft (09/07/22)
[2022-09-12] MEDS: Potassium Chloride Oral Tablet 20 MEQ 40 MEQ PO (09:57)
[2022-09-12] MEDS: Clopidogrel Bisulfate 75 MG Tablet PO (09:57)
[2022-09-12] MEDS: Metoprolol Tartrate 100 MG Tablet PO ×2 (09:57→21:54)
[2022-09-12] MEDS: Aspirin 81 MG TAB.CHEW PO (09:57)
[2022-09-12] MEDS: Amiodarone 200 MG Tablet 100 MG PO (09:58)
[2022-09-12] MEDS: Pantoprazole Sodium 20 MG Tablet PO (09:58)
[2022-09-12] MEDS: Potassium Chloride 10mEq/100mL 10 MEQ/100 ML IV.SOLN. 100 MEQ IV BOLUS ×4 (09:59→15:42)
[2022-09-12] MEDS: Hydrocortisone Sod Succinate 100 MG/2 ML Vial 50 MG IV ×2 (10:05→21:54)
--- NOTE | 2022-09-12 11:01 | VDLE_ITS ---
Reason For Study: Swelling RIGHT LEFT CFV is compressible, spontaneous, phasic, GSV is normal. competent and demonstrates normal CFV is compressible, spontaneous, phasic, augmentation. competent, and demonstrates normal Procedure augmentation. This is a venous duplex using B-mode, color FV is compressible, spontaneous, phasic, flow and spectral Doppler. competent and demonstrates normal Exam performed portable in patient room. augmentation. Mid-distal calf veins not viualized due to POP V is compressible, spontaneous, phasic, wrappings. competent and demonstrates normal A preliminary report was called and/or faxed augmentation. to Rafat PARTIDA. T/P Trunk is compressible. PTV is compressible. LT PerV is compressible. VL/Venous Duplex US, Unilateral Interpretation Summary There is no evidence of left lower extremity deep vein thrombosis. Left great s aphenous vein appears patent and compressible segmentally. Normal flow patterns right common femoral vein Technically limited examination as the mid to distal calf veins on the left can not be imaged due to dressings. Ordering Physician: Mateo Anderson Referring Physician: MD Aman Eric Performed By: Wen Cam RVT
[2022-09-12 11:30] LABS: Bedside Glucose 198 mg/dL (74-106)
[2022-09-12] MEDS: Furosemide 40 MG/4 ML Vial IV ×2 (13:56→21:56)
--- NOTE | 2022-09-12 16:06 | CASEMGMT ---
LACHELLE spoke with patient and his family. LACHELLE asked about a discharge plan. Patient and family would like for patient to go home. LACHELLE asked if family was present when patient worked with therapy. Family was present and at this time they all feel comfortable taking patient home with the amount of physical assistance patient needs. They are not comfortable with patient's medical issues so they would like a home health nurse. LACHELLE and HELGA POWELL will continue to follow. Katie Tobias MSW KELLY
[2022-09-12] MEDS: Potassium Chloride Oral Tablet 20 MEQ PO (16:07)
[2022-09-12 18:06] LABS: Bedside Glucose 245 mg/dL (74-106)
--- NOTE | 2022-09-12 18:38 | PCM.PN.REN ---
Subjective Subjective renal fxn back to baseline. LLE still erythematous, red. US LE ordered. Wheezing, on lasix iv with KCL Objective Data Objective Data Vital Signs: Vital Signs Temp Pulse Resp BP Pulse Ox O2 Del Method O2 Flow Rate 97.8 F 96 18 116/88 H 93 Nasal Cannula 3 09/12/22 14:50 09/12/22 14:59 09/12/22 14:50 09/12/22 14:50 09/12/22 16:20 09/12/22 16:20 09/12/22 16:20 FiO2 40 09/12/22 07:10 Oxygen Flow Rate (L/min) 3 Oxygen Delivery Method Nasal Cannula Weight: 107 kg Body Mass Index (BMI) 39.1 Intake & Output: Intake and Output for Last 24 Hours 09/10/22 09/11/22 09/12/22 23:59 23:59 23:59 Intake Total 985 / 985 609.38 / 609.38 1030 / 1030 Output Total 500 / 500 2450 / 3600 3350 / 3350 Balance 485 / 485 -1840.62 / -2990.62 -2320 / -2320 Lab / Micro Data Result Diagrams: 09/12/22 05:30 09/12/22 05:30 Labs: Laboratory Results - last 24 hr 09/11/22 22:08: POC Glucose 229 H 09/12/22 05:30: PT 27.1 H, INR 2.5 09/12/22 05:30: WBC 8.7, RBC 4.05 L, Hgb 12.2 L, Hct 38.2 L, MCV 94.3 H, MCH 30.1, MCHC 31.9 L, RDW Std Deviation 53.0 H, RDW Coeff of Alley 15.2 H, Plt Count 133 L, MPV 10.6, Immature Gran % (Auto) 1.200 H, Neut % (Auto) 89.3 H, Lymph % (Auto) 5.9 L, [place] % (Auto) 3.3, Eos % (Auto) 0.1, Baso % (Auto) 0.2, Absolute Neuts (auto) 7.8 H, Absolute Lymphs (auto) 0.51 L, Nucleated RBC % 0, Platelet Estimate SLT DEC, Anisocytosis 1+ 09/12/22 05:30: Sodium 143, Potassium 3.0 L, Chloride 106, Carbon Dioxide 28.0, Anion Gap 9, BUN 40 H, Creatinine 1.55 H, Estim Creat Clear Calc 33.62, Est GFR (MDRD) Af Amer 56 L, Est GFR (MDRD) Non-Af 46 L, BUN/Creatinine Ratio 25.8 H, Glucose 214 H, Calcium 8.8 09/12/22 06:19: POC Glucose 186 H 09/12/22 11:08: POC Glucose 198 H 09/12/22 16:05: POC Glucose 245 H Micro: Microbiology 09/07/22 10:00 Blood Culture (Wb) - Anticubital Left Blood Culture - Final No growth in 5 days. 09/07/22 09:55 Blood Culture (Wb) - Anticubital Right Blood Culture - Final No growth in 5 days. 09/07/22 16:10 Wound Drainage - Leg Anaerobic Culture - Final No anaerobic bacteria isolated. 09/11/22 06:45 Nasal Secretion SARS-CoV-2 Antigen (Rapid) - Final 09/07/22 11:10 Urine, Clean Catch Urine Culture - Final Staphylococcus aureus 09/07/22 16:10 Wound - Leg, Left Gram Stain - Final 09/07/22 16:10 Wound - Leg, Left Wound Culture - Final Streptococcus group C Radiography Diagnostic Testing: Radiology Impression Venous Doppler Study 09/12/22 11:01 Interpretation Summary There is no evidence of left lower extremity deep vein thrombosis. Left great saphenous vein appears patent and compressible segmentally. Normal flow patterns right common femoral vein Technically limited examination as the mid to distal calf veins on the left cannot be imaged due to dressings. Ordering Physician: Mateo Anderson Referring Physician: MD Aman Eric Performed By: Wen Cam, RVT Physical Exam Const alert and oriented x3 Resp Auscultation: wheezes Cardio Rhythm: abnormal rhythm irregularly irregular GI non-tender GI Narrative: obese Auscultation: normoactive bowel sounds Palpation: soft Extremity General Extremity: edema bilateral (mild) Skin Skin Narrative: LLE cellulitis, redness, tenderness, leg wrapped with oz General Skin Exam: erythema Neuro Sensorium / Orientation: awake and alert Psych cooperative Assessment & Plan Assessment/Plan (1) CKD (chronic kidney disease), stage III: PLAN: baseline creatinine 1.5-2.0 from hypertensive, diabetic nephropathy. Hold vasoactive medications, ARB therapy, diuretics (2) Acute kidney injury superimposed on CKD: PLAN: due to sepsis, hypotension. Creatinine improved from 2.9 to 1.55 baseline. . Recent iv contrast exposure on 09/07. BP stable (3) Cellulitis of left lower leg: PLAN: iv antibx renal dose. Consider ID consult (4) Sepsis: PLAN: leukocytosis improved, afebrile. Cx negative (5) Lactic acidosis: (6) Hypoxia: PLAN: on iv lasix in negative balance (7) Paroxysmal A-fib: PLAN: rate controlled (8) Essential hypertension: PLAN: stable (9) Diabetes mellitus: (10) Morbid obesity: (11) Hypokalemia:
[2022-09-12] MEDS: MELATONIN 10 MG TABLET PO (21:54)
[2022-09-12] MEDS: Atorvastatin Calcium 40 MG Tablet PO (21:54)
[2022-09-12] MEDS: 0.9% Saline Lock 10 ML Syringe IV (21:56)
[2022-09-12 22:40] LABS: Bedside Glucose 243 mg/dL (74-106)
[2022-09-13] VITALS (15 sets, daily range): BP systolic 122–155; BP diastolic 70–95; PULSE 62–132; RESP 12–22; TEMP 36.3–37.1; O2SAT 90–97; BMI 39.1
[2022-09-13] MEDS: Menthol/Lanolin/Calamine/Znox 113 GM Tube 1 APPLIC TOPICAL ×3 (05:42→23:37)
[2022-09-13] MEDS: Furosemide 40 MG/4 ML Vial IV ×3 (06:25→23:42)
[2022-09-13] MEDS: Insulin Lispro 100 UNIT/ML INSULN.PEN SC ×4 (06:25→23:40)
[2022-09-13] MEDS: Levothyroxine 50 MCG Tablet PO (06:25)
[2022-09-13 06:26] LABS: Absolute Neutrophil Count 6.8 X10^3/uL (2.0-7.7); Basophil# 0.02 X10^3/uL; Basophil% 0.3 % (0-1); Eosinophil# 0.01 X10^3/uL; Eosinophils% 0.1 % (0-5); Hematocrit 43.3 % (40-54); Lymphocyte % 5.3 % (19-41); Mean Corpuscular Hgb 29.2 pg (27.0-32.0); Mean Corpuscular Volume 97.3 fL (80-94); Mean Platelet Vol. 10.5 fl (6.2-12.0); Monocyte# 0.19 X10^3/uL; Monocyte% 2.5 % (0-10); NRBC Flagged by Analyzer 0.3 % (0-5); Neutrophil # 6.76 X10^3/uL (2.7-7.7); Neutrophil % 90.2 % (47-70); POSITIVE COUNT YES; POSITIVE DIFFERENTIAL YES; Platelet Count 140 K/mm3 (150-450); RBC Distribution Width CV 14.7 % (11.6-14.6); RBC Distribution Width SD 53.2 fl (35.1-43.9); Red Blood Count 4.45 M/mm3 (4.6-6.2); White Blood Count 7.5 K/mm3 (4.4-11.0)
[2022-09-13] MEDS: 0.9% Saline Lock 10 ML Syringe IV ×4 (06:26→23:42)
[2022-09-13 06:27] LABS: Differential Indicated SCAN CRITERIA MET
[2022-09-13 06:32] LABS: International Normalized Ratio 1.9; Prothrombin Time (Protime)PT. 21.6 SECONDS (11.7-14.9)
[2022-09-13 06:49] LABS: Anion Gap 9 (5-15); BUN 40 mg/dL (7-18); BUN/Creat Ratio 28.8 RATIO (10-20); Calcium,Total 8.3 mg/dL (8.5-10.1); Chloride 103 mmol/L (98-107); Creatinine, Serum 1.39 mg/dL (0.70-1.30); EST Glomerular Filtration Rate 52 mL/min (>60); Est Glom Filt Rate - Afr Amer 63 mL/min (>60); Estimated Creatinine Clearance 37.49 ml/min; Glucose 241 mg/dL (74-106); Potassium 3.3 mmol/L (3.5-5.1); Sodium Level 139 mmol/L (136-145)
[2022-09-13] MEDS: Ipratropium/Albuterol Sulfate 3 ML AMPUL.NEB INHALATION ×2 (06:58→13:18)
[2022-09-13 07:05] LABS: Anisocytosis 1+; Macrocytosis RARE; Platelet Estimate SLT DEC (ADEQ)
[2022-09-13 07:10] LABS: Bedside Glucose 238 mg/dL (74-106)
--- NOTE | 2022-09-13 07:37 | PN.HOSP_ITS ---
Reason for Visit Reason for Visit: Diagnoses Sepsis, unspecified organism (09/07/22) Acidosis, unspecified (09/07/22) Obstructive sleep apnea (adult) (pediatric) (09/07/22) Essential (primary) hypertension (09/07/22) Paroxysmal atrial fibrillation (09/07/22) Chronic systolic (congestive) heart failure (09/07/22) Gastro-esophageal reflux disease without esophagitis (09/07/22) Cellulitis of left lower limb (09/07/22) Acute kidney failure, unspecified (09/07/22) Chronic kidney disease, stage 3 unspecified (09/07/22) Chronic kidney disease, unspecified (09/07/22) Altered mental status, unspecified (09/07/22) Severe sepsis without septic shock (09/07/22) Hyperglycemia, unspecified (09/07/22) Wedge compression fracture of unspecified lumbar vertebra, initial encounter for closed fracture (09/07/22) Presence of coronary angioplasty implant and graft (09/07/22) Objective Data Objective Data Vital Signs: Vital Signs Temp Pulse Resp BP Pulse Ox O2 Del Method O2 Flow Rate 97.4 F L 68 22 H 155/89 H 97 Bi-pap 4 09/13/22 03:38 09/13/22 03:47 09/13/22 03:47 09/13/22 03:38 09/13/22 03:47 09/13/22 03:38 09/13/22 02:15 FiO2 45 09/13/22 03:47 Oxygen Flow Rate (L/min) 4 Oxygen Delivery Method Bi-pap Weight: 104.1 kg Body Mass Index (BMI) 39.1 Intake & Output: Intake and Output for Last 24 Hours 09/11/22 09/12/22 09/13/22 23:59 23:59 23:59 Intake Total 609.38 / 609.38 1030 / 1030 190 / 190 Output Total 2450 / 3600 4300 / 4300 1500 / 1500 Balance -1840.62 / -2990.62 -3270 / -3270 -1310 / -1310 Lab / Micro Data Result Diagrams: 09/13/22 05:55 09/13/22 05:55 Labs: Laboratory Results - last 24 hr 09/12/22 11:08: POC Glucose 198 H 09/12/22 16:05: POC Glucose 245 H 09/12/22 21:53: POC Glucose 243 H 09/13/22 05:55: WBC 7.5, RBC 4.45 L, Hgb 13.0, Hct 43.3, MCV 97.3 H, MCH 29.2, MCHC 30.0 L D, RDW Std Deviation 53.2 H, RDW Coeff of Alley 14.7 H, Plt Count 140 L, MPV 10.5, Immature Gran % (Auto) 1.600 H, Neut % (Auto) 90.2 H, Lymph % (Auto) 5.3 L, [place] % (Auto) 2.5, Eos % (Auto) 0.1, Baso % (Auto) 0.3, Absolute Neuts (auto) 6.8, Absolute Lymphs (auto) 0.40 L, Nucleated RBC % 0.3, Platelet E stimate SLT DEC, Anisocytosis 1+, Macrocytosis RARE 09/13/22 05:55: PT 21.6 H, INR 1.9 09/13/22 05:55: Sodium 139, Potassium 3.3 L, Chloride 103, Carbon Dioxide 27.0, Anion Gap 9, BUN 40 H, Creatinine 1.39 H, Estim Creat Clear Calc 37.49, Est GFR (MDRD) Af Amer 63, Est GFR (MDRD) Non-Af 52 L, BUN/Creatinine Ratio 28.8 H, Glucose 241 H, Calcium 8.3 L 09/13/22 06:24: POC Glucose 238 H Micro: Microbiology 09/07/22 10:00 Blood Culture (Wb) - Anticubital Left Blood Culture - Final No growth in 5 days. 09/07/22 09:55 Blood Culture (Wb) - Anticubital Right Blood Culture - Final No growth in 5 days. 09/07/22 16:10 Wound Drainage - Leg Anaerobic Culture - Final No anaerobic bacteria isolated. 09/11/22 06:45 Nasal Secretion SARS-CoV-2 Antigen (Rapid) - Final 09/07/22 11:10 Urine, Clean Catch Urine Culture - Final Staphylococcus aureus 09/07/22 16:10 Wound - Leg, Left Gram Stain - Final 09/07/22 16:10 Wound - Leg, Left Wound Culture - Final Streptococcus group C Radiography Diagnostic Testing: Radiology Impression Venous Doppler Study 02/07/23 11:01 Interpretation Summary There is no evidence of left lower extremity deep vein thrombosis. Left great saphenous vein appears patent and compressible segmentally. Normal flow patterns right common femoral vein Technically limited examination as the mid to distal calf veins on the left cannot be imaged due to dressings. Ordering Physician: Mateo Anderson Referring Physician: MD Aman Eric Performed By: Wen Cam RVT Physical Exam Narrative GENERAL: cooperative HEENT: Atraumatic; normocephalic EYES; Anicteric, Normal Conjunctiva NECK; supple, normal thyroid, RESPIRATORY: Diminished to auscultation CARDIOVASCULAR: Regular S1 S2, GI: soft, normoactive bowel sounds, : No Renal angle tenderness; EXTREMITIES: Edema involving both upper and lower extremities MUSCULOSKELETAL: no muscle wasting NEURO: Awake; no lateralizing signs. SKIN: Area of induration on the medial aspect of the left thigh PSYCH; Flat affect Assessment & Plan Assessment/Plan (1) Severe sepsis: PLAN: Plan Patient is a 81-year-old male admitted with left lower extremity cellulitis due to group C strep. Hospital stay complicated by development of multi-infarct CVA involving the right hemisphere 1. Severe sepsis secondary to left lower extremity cellulitis ? Secondary to group C strep. Patient managed with broad-spectrum antibiotic therapy with Zosyn. Zosyn has been switched to cefdinir ? 09/13/2022 consult was placed to infectious disease per family request 2. Multi-infarct CVA of right hemisphere ? Patient was foundund to have multiple infarcts in the right hemisphere: Multiple small acute infarct in the right MCA territory involving the right frontal cortex, right posterior parietal lobe, right temporal lobe, right basal ganglia. Additional old right basal ganglia lacunar infarct, chronic involutio nal white matter changes. MRA demonstrated developmentally artery great A1 segment with only faint flow signal which may be due to slow flow. Partial occlusion of small caliber right A1 segment is a consideration. MRA neck demonstrated abnormal appearance of flow within the right carotid bulb which in part may be accentuated by motion artifact and torturous vessels however findings suspicious of short segment right carotid bulb stenosis and recommended consider evaluation with either CTA or Doppler for verification. Carotid ultrasound ordered. Neurology evaluated, SHAINA ordered, and aspirin + Plavix while Coumadin is held was recommended. -09/12/2022; carotid ultrasound demonstrated irregular plaque noted in the proximal right internal carotid artery with greater than 70% stenosis and likely greater than 80% stenosis of the internal carotid artery. Patient was found to have less than 50% stenosis of the left internal carotid artery 3. Acute hypoxic respiratory failure ? Developed after patient was admitted and this was only transient for 2 days from 09/11/2022 to 09/12/2022 Patient was on on bipap/airvo ABG 09/07 ph 7.33 pco2 38.4 po2 105 on bipap peep 8 ABG 09/10 ph 7.44 pco2 32.9 po2 84 on 4L NC. ? 09/13/2022 patient has been weaned off high flow oxygen back on nasal cannula 4 L at rest 4. Paroxysmal A-fib with RVR ? Patient is on Coumadin and amiodarone. Coumadin has been held due to elevated INR 5. Mild thrombocytopenia ? Stable continue with monitoring 6. Acute kidney injury ? Superimposed on chronic kidney disease stage III ? Monitoring with daily BMPs nephrology on board 7. Class II obesity with BMI of 39 ? Weight loss advised 8. Acute on chronic congestive heart failure with preserved ejection fraction ? Echo obtained on 09/07/2022 demonstrated EF of 55%. In view of patient worsening edema patient diuretics reinitiated 9. Coronary artery disease ? With previous PCI in 2018 10. Diabetes mellitus type II -patient's oral hypoglycemics held. Placed on long acting insulin, Accu-Cheks a.c. and at bedtime and covered with sliding scale insulin 11. Chronic back pain ? With history of multiple lumbar compression fractures ? Patient pain meds held in view of delirium 12. DVT prophylaxis ? Patient is on Coumadin INR is therapeutic 13. Physical deconditioning - Requested for PT OT eval and secondary social studies teacher to assist with discharge planning 14. Mild intermittent asthma ? DuoNebs as needed Time spent in the patient's overall evaluation,decision-making process, review of diagnostic data, adjustment of management, discussion with other providers, nursing nursing and ancillary staff involved in patient's care documentation, 55 Minutes Charges/Coding Visit Charges Inpatient E&M: 74656 Subs Hosp L3
[2022-09-13] MEDS: Hydrocortisone Sod Succinate 100 MG/2 ML Vial 50 MG IV ×2 (08:31→23:48)
[2022-09-13] MEDS: Pantoprazole Sodium 20 MG Tablet PO (08:31)
[2022-09-13] MEDS: Clopidogrel Bisulfate 75 MG Tablet PO (08:31)
[2022-09-13] MEDS: Amiodarone 200 MG Tablet 100 MG PO (08:31)
[2022-09-13] MEDS: Aspirin 81 MG TAB.CHEW PO (08:31)
[2022-09-13] MEDS: Metoprolol Tartrate 100 MG Tablet PO ×2 (08:31→20:30)
[2022-09-13] MEDS: Potassium Chloride Oral Tablet 20 MEQ 40 MEQ PO (08:32)
[2022-09-13] MEDS: Potassium Chloride Oral Tablet 20 MEQ PO ×2 (08:32→16:02)
--- NOTE | 2022-09-13 09:50 | WOUNDNOTE ---
wound photo: left lower leg
--- NOTE | 2022-09-13 09:51 | WOUNDNOTE ---
wound photo: left lower leg
--- NOTE | 2022-09-13 10:48 | EKGRS_ITS ---
Test Reason : Blood Pressure : / mmHG Vent. Rate : 068 BPM Atrial Rate : 061 BPM P-R Int : 158 ms QRS Dur : 088 ms QT Int : 454 ms P-R-T Axes : 058 034 054 degrees QTc Int : 482 ms Sinus rhythm with Premature supraventricular complexes Low voltage QRS Prolonged QT Abnormal ECG When compared with ECG of 07-SEP-2022 10:23, Premature supraventricular complexes are now Present Confirmed by RAKEL BHANDARI, ADAM ([id number]), story editor ROMY GARCIA ([id number]) on 09/15/2022 12:52:55 P M Referred By: Confirmed By:DICK ELLINGTON MD
[2022-09-13 12:36] LABS: Bedside Glucose 322 mg/dL (74-106)
--- NOTE | 2022-09-13 13:29 | PCM.CONS.GEN ---
Assessment & Plan Assessment/Plan (1) Acute kidney injury superimposed on CKD: (2) Severe sepsis: PLAN: LLE wound cx with group C strep. Ucx with mSSA, dumont in place, paired bcx remain neg. On zosyn. Will narrow to ancef. Plan on po abx at discharge. Will follow, thank you (3) Cellulitis of left lower leg: HPI Consult Data Date of Consult: 09/13/22 HPI Narrative Reason for Consultation: cellulitis HPI Narrative: JOSE A STEIN, is a 81 M who presented 09/07/21 with altered mental status via EMS. Has h/o CKD, DM, CHF, CAD. Reports a few days of worsening LLE redness, clear drainage, swelling, and pain. Took one dose of outpt po abx. Admitted on vanc/zosyn. Found to have hypoxia, concern for L sided weakness. Clinda added. Wound cx with strep. Able to be transferred out of icu, now just on zosyn, feeling better, but LLE still sore, red, swollen. Full ROS performed and neg except as noted above. 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 Long-term use of high-risk medication Lung nodule Paroxysmal A-fib Presence of stent in coronary artery (~07/04/18) Renal insufficiency Restrictive airway disease Home Medications aspirin 81 mg chewable tablet 81 mg PO DAILY@0800 health maintenance 07/02/18 [History Last Taken 09/07/22] omeprazole 20 mg capsule,delayed release 20 mg PO DAILY gerd 07/02/18 [History Last Taken 09/06/22] atorvastatin 40 mg tablet 40 mg PO QHS #30 tabs 07/29/18 [Rx Last Taken 09/05/22] cetirizine 10 mg capsule 10 mg PO HS #30 caps 08/20/19 [Rx Last Taken 09/04/22] ferrous sulfate 325 mg (65 mg iron) tablet 325 mg PO BID 02/19/20 [History Last Taken 09/06/22] metoprolol tartrate 50 mg tablet 50 mg PO BID #180 tabs 04/20/20 [Rx Last Taken 09/06/22] valsartan 80 mg tablet 80 mg PO DAILY 11/17/21 [History Last Taken 09/06/22] amiodarone 200 mg tablet 100 mg PO DAILY #15 tabs 01/09/22 [Rx Last Taken 09/06/22] amlodipine 10 mg tablet 10 mg PO DAILY 02/27/22 [History Last Taken 09/06/22] cholecalciferol (vitamin D3) 25 mcg (1,000 unit) tablet 25 mcg PO DAILY 02/27/22 [History Last Taken 09/05/22] prednisone 5 mg tablet 10 mg PO DAILY #100 tabs 03/06/22 [Rx Last Taken 09/06/22] tizanidine 4 mg capsule 4 mg PO Q8H PRN Pain 06/02/22 [History Last Taken 09/06/22] furosemide 40 mg tablet 20 mg PO DAILY 09/07/22 [History Last Taken 09/06/22] warfarin 2 mg tablet 2 mg PO SUTUWEFRSA BLOOD THINNER 09/07/22 [History Last Taken 09/06/22] acetaminophen 500 mg tablet 500 mg PO Q6H PRN Pain 09/10/22 [History Last Taken Unknown] levothyroxine 50 mcg tablet 50 mcg PO DAILY thyroid 09/10/22 [History Last Taken Unknown] lorazepam 0.5 mg tablet 0.5 mg PO DAILY PRN Anxiety 09/10/22 [History Last Taken Unknown] potassium chloride 20 mEq tablet,extended release 20 meq PO DAILY suppliment 09/10/22 [History Last Taken Unknown] empagliflozin 10 mg tablet (Jardiance) 10 mg PO DAILY Check with primary doctor #90 tabs 09/11/22 [Rx Last Taken Unknown] Allergy/AdvReac Type Severity Reaction Status Date / Time No Known Allergies Allergy Verified 09/06/22 19:59 Family History Mother Hypertension Heart disease Surgical History History of hernia repair History of hip replacement History of partial knee replacement Presence of coronary angioplasty implant and graft (~07/04/18) Social History Smoking Status: Never smoker alcohol intake: never substance use type: does not use Physical Exam Const alert, oriented x3 and no apparent distress General Appearance: cooperative HEENT normocephalic and head/scalp atraumatic Eyes PERRL and EOMs intact bilaterally Neck supple and No nodes Resp Auscultation: wheezes Cardio regular rate and regular rhythm GI soft to palpation, non-tender and non-distended Extremity General Extremity: edema Skin Skin Narrative: LLE erythema, reviewed photos, traveling up medial thigh. Neuro CN's II-XII intact bilaterally Lab / Micro Data Attestation: I reviewed the patient's lab results. Result Diagrams: 09/13/22 05:55 09/13/22 05:55 Labs: Laboratory Results - last 24 hr 09/12/22 16:05: POC Glucose 245 H 09/12/22 21:53: POC Glucose 243 H 09/13/22 05:55: WBC 7.5, RBC 4.45 L, Hgb 13.0, Hct 43.3, MCV 97.3 H, MCH 29.2, MCHC 30.0 L D, RDW Std Deviation 53.2 H, RDW Coeff of Alley 14.7 H, Plt Count 140 L, MPV 10.5, Immature Gran % (Auto) 1.600 H, Neut % (Auto) 90.2 H, Lymph % (Auto) 5.3 L, [place] % (Auto) 2.5, Eos % (Auto) 0.1, Baso % (Auto) 0.3, Absolute Neuts (auto) 6.8, Absolute Lymphs (auto) 0.40 L, Nucleated RBC % 0.3, Platelet Estimate SLT DEC, Anisocytosis 1+, Macrocytosis RARE 09/13/22 05:55: PT 21.6 H, INR 1.9 09/13/22 05:55: Sodium 139, Potassium 3.3 L, Chloride 103, Carbon Dioxide 27.0, Anion Gap 9, BUN 40 H, Creatinine 1.39 H, Estim Creat Clear Calc 37.49, Est GFR (MDRD) Af Amer 63, Est GFR (MDRD) Non-Af 52 L, BUN/Creatinine Ratio 28.8 H, Glucose 241 H, Calcium 8.3 L 09/13/22 06:24: POC Glucose 238 H 09/13/22 10:55: POC Glucose 322 H Micro: Microbiology 09/07/22 10:00 Blood Culture (Wb) - Anticubital Left Blood Culture - Final No growth in 5 days. 09/07/22 09:55 Blood Culture (Wb) - Anticubital Right Blood Culture - Final No growth in 5 days. 09/07/22 16:10 Wound Drainage - Leg Anaerobic Culture - Final No anaerobic bacteria isolated. Radiology Impression Venous Doppler Study 09/12/22 11:01 Interpretation Summary There is no evidence of left lower extremity deep vein thrombosis. Left great saphenous vein appears patent and compressible segmentally. Normal flow patterns right common femoral vein Technically limited examination as the mid to distal calf veins on the left cannot be imaged due to dressings. Ordering Physician: Matoe Anderson Referring Physician: MD Aman Eric Performed By: Wen Cam RVT
[2022-09-13] MEDS: Cefazolin 2 GM in 0.9% Normal Saline 100 ML IV ×2 (14:40→23:53)
--- NOTE | 2022-09-13 15:05 | ST.MBS ---
Modified Barium Swallow - Patient Information Study Date: 09/13/22 Study Time: 13:40 Direct Billable Minutes: 87 Total Minutes procedure & reportin Diagnosis: Hypoxia (R09.02), GERD (K21.9) Referring Physician: Mateo Anderson Reason for Referral: Objectively assess swallow function, assess risk for aspiration, and determine recommendations for least restrictive diet textures and compensatory strategies to improve safety of swallow. Medical History: Norris Hernandez is a 81 M with a PMH of CKD stage III unclear subtype, GERD, congestive heart failure, hyperglycemia, coronary disease status post stent in 2018, KIM on sleep, chronic lower back pain, and proximal afib. See H for full report. Pt seen in the emergency department on 09/06/2022 for a left lower extremity cellulitis that had started earlier that day, did not meet admission criteria and was discharged home. Pt presented to [facility] 09/07/2022 via EMS with altered mental status. In the ED he was placed on BiPAP and respiratory status responded well. Pt's chest x-ray did not appear to be in exacerbation of CHF. Pt deemed he likely had sepsis secondary to lower extremity cellulitis and cultures obtained. CT head exam obtained, which showed chronic involutional changes of the brain, and tiny lacunar in the right basal ganglia which age was indeterminate. Stroke call was not called due to timing as well as their dating other underlying reasons for his mental status. In the ED patient would answer some questions, and intermittently follow commands, which family reports was significantly better than when he came in. Did have the left lower extremity circumferential cellulitis, which they said started over the past 24 hours and initially was minimal on 09/06/2022, then when he woke up it had progressed rapidly. Prior to admission, family reports pt is generally in good health with occasional lower back pain, and had been taking pain medication intermittently. Pt referred for Speech Evaluation due to concerns for cognitive impairment with sundowning per RN and for dysphagia concerns. Pt was evaluated and recommended for Regular textures / Thin liquids. He was found to have moderate-severe cognitive impairments in the areas attention, executive functioning, and visuospatial skills. Much of pt's confusion has appeared to resolve. Pt has continued to tolerate diet at bedside; however, on 09/11/2022 there was concern for increased markings (potentially infiltrate) in the RLL. Pt was referred for MBSS to objectively assess aspiration risk. Additionally, 09/08/22 Brain MRI revealed multiple small acute infarct in the right middle cerebral artery territory involving the right frontal cortex, right posterior parietal lobe, right temporal lobe, and right basal ganglia, as well as an old right basal ganglia lacunar infarct. Current Diet Ordered: Regular textures / Thin liquids Respiratory Status: Oxygenating on 3L/M nasal cannula - Penetration-Aspiration Scale Penetration-Aspiration Scale: OBJECTIVE ASSESSMENT OF SWALLOW FUNCTION (QUANTITATIVE ? PER TRIAL): PENETRATION / ASPIRATION SCALE (V[place]SQUEZ): 1 = does not enter airway 2 = enters airway/above vocal folds/ejected 3 = enters airway/above vocal folds/not ejected 4 = enters airway/contacts vocal folds/ejected 5 = enters airway/contacts vocal folds/not ejected 6 = enters airway/below vocal folds/ejected 7 = enters airway/below vocal folds/not ejected despite effort 8 = enters airway/below vocal folds/no effort VIDEOFLOROSCOPIC SCALE SCORE (V[place]SQUEZ): Grade I = aspiration of material that has penetrated into the laryngeal vestibule, intact cough reflex Grade II = aspiration < 10 % of the bolus, intact cough reflex Grade III = aspiration of < 10 % of the bolus, reduced cough reflex or aspiration of > 10 % of the bolus, intact cough reflex Grade IV = aspiration of > 10 % of the bolus, reduced cough reflex - Penetration-Aspiration Scale Score Thin Liquid via teaspoon Result: 1= does not enter airway Thin Liquid via teaspoon Trial 2 Result: 1= does not enter airway Comment: Delayed cough; however, fluoroscopy turned on and laryngeal vestibule and trachea appeared clear during a re-swallow. Thin Liquid via small single sip from cup Result: 1= does not enter airway [place] Thick Liquid via small single sip from cup Result: 1= does not enter airway Pudding via teaspoon Result: 1= does not enter airway 1/2 Cookie Result: 1= does not enter airway Thin Liquid via sequential sips from straw Result: 2= enter airway/above vocal folds/ejected - Oral Phase Labial Seal: No Labial Escape Tongue Control During Bolus Hold: Posterior escape of less than half of bolus Bolus Preparation/Mastication: Slow prolonged chewing/mashing with complete recollection Bolus Transport/Lingual Motion: Delayed initiation of tongue motion Oral Residue: Residue collection on oral structures - Pharyngeal Phase Initiation of Pharyngeal Swallow: Bolus head in valleculae Soft Palate Elevation: No bolus between soft palate and pharyngeal wall Laryngeal Elevation: Partial superior movement thyroid cart/partial apprx aryt-epig petiole Anterior Hyoid Excursion: Partial anterior movement Epiglottic Movement: Complete inversion Laryngeal Vestibule Closure at Height of Swallow: Incomplete; narrow column of air/contrast in laryngeal vestibule - trace penetration with sequential thin Pharyngeal Stripping Wave: Present - complete Pharyngoesophageal Segment Opening: Complete distension and complete duration; no obstruction of flow Tongue Base Retraction: Trace column of contrast between tongue base & post. pharyngeal wall Pharyngeal Residue: Trace residue within or on pharyngeal structures - Esophageal Phase Esophageal Clearance: Complete clearance - Diagnosis/Impression Diagnosis: Mild oropharyngeal phase dysphagia (R13.12) Impression: The oral phase is primarily marked by... -Delayed tongue motion for A-P transport. -Trace-mild oral residue after cookie and sequential sips of thin liquids. -Prolonged, but adequate mastication of cookie trial. The pharyngeal phase is primarily marked by... -Mildly decreased airway closure during the swallow due to mildly decreased anterior hyoid excursion and mildly decreased laryngeal elevation. -No aspiration observed; however, cannot definitively rule out aspiration due to pt's body habitus for all trials above. Trace laryngeal penetration of thin liquids via sequential straw sips, which fully ejected from the laryngeal vestibule after the swallow. - Recommendations Diet: Regular Textures, Thin Liquids Compensatory Strategies: Small Bites, Small Sips, Slow Rate, Sitting upright, Remain sitting upright for 30 minutes after PO intake Supervision: Distant Supervision Recommend Repeat Modified Barium Swallow: No Need for Skilled Speech Therapy Services: Yes Comment: Will recommend the patient for continued dysphagia therapy to address mild deficits in oropharyngeal swallow function. Will recommend the patient for oropharyngeal strengthening to improve laryngeal elevation and hyoid excursion. The patient would benefit from education regarding diet recommendations and recommended compensatory strategies. Education Completed: 1. Described result of evaluation., 2. Pt understands evaluation & agrees with goals and treatment plan. - Status Active ST Patient: Active - Contact Information [facility] Speech Therapy:: Gia Huang M.A. [facility] Speech-Language Pathologist [place] [address] [place] [address] [email or web address] [phone] 09/13/22 15:55
--- NOTE | 2022-09-13 15:44 | PCM.PN.REN ---
Subjective Subjective less wheezing, nonproductive cough. LLE redness, edema persists on iv antibx. Objective Data Objective Data Vital Signs: Vital Signs Temp Pulse Resp BP Pulse Ox O2 Del Method O2 Flow Rate 98.6 F 64 18 153/74 H 96 Nasal Cannula 3 09/13/22 14:38 09/13/22 14:38 09/13/22 14:38 09/13/22 14:38 09/13/22 14:38 09/13/22 15:00 09/13/22 15:00 FiO2 45 09/13/22 03:47 Oxygen Flow Rate (L/min) 3 Oxygen Delivery Method Nasal Cannula Weight: 104.1 kg Body Mass Index (BMI) 39.1 Intake & Output: Intake and Output for Last 24 Hours 09/11/22 09/12/22 09/13/22 23:59 23:59 23:59 Intake Total 609.38 / 609.38 1030 / 1030 680 / 680 Output Total 2450 / 3600 4300 / 4300 2200 / 2200 Balance -1840.62 / -2990.62 -3270 / -3270 -1520 / -1520 Lab / Micro Data Result Diagrams: 09/13/22 05:55 09/13/22 05:55 Labs: Laboratory Results - last 24 hr 09/12/22 16:05: POC Glucose 245 H 09/12/22 21:53: POC Glucose 243 H 09/13/22 05:55: WBC 7.5, RBC 4.45 L, Hgb 13.0, Hct 43.3, MCV 97.3 H, MCH 29.2, MCHC 30.0 L D, RDW Std Deviation 53.2 H, RDW Coeff of Alley 14.7 H, Plt Count 140 L, MPV 10.5, Immature Gran % (Auto) 1.600 H, Neut % (Auto) 90.2 H, Lymph % (Auto) 5.3 L, [place] % (Auto) 2.5, Eos % (Auto) 0.1, Baso % (Auto) 0.3, Absolute Neuts (auto) 6.8, Absolute Lymphs (auto) 0.40 L, Nucleated RBC % 0.3, Platelet Estimate SLT DEC, Anisocytosis 1+, Macrocytosis RARE 09/13/22 05:55: PT 21.6 H, INR 1.9 02/08/23 05:55: Sodium 139, Potassium 3.3 L, Chloride 103, Carbon Dioxide 27.0, Anion Gap 9, BUN 40 H, Creatinine 1.39 H, Estim Creat Clear Calc 37.49, Est GFR (MDRD) Af Amer 63, Est GFR (MDRD) Non-Af 52 L, BUN/Creatinine Ratio 28.8 H, Glucose 241 H, Calcium 8.3 L 09/13/22 06:24: POC Glucose 238 H 09/13/22 10:55: POC Glucose 322 H Micro: Microbiology 09/07/22 10:00 Blood Culture (Wb) - Anticubital Left Blood Culture - Final No growth in 5 days. 09/07/22 09:55 Blood Culture (Wb) - Anticubital Right Blood Culture - Final No growth in 5 days. 09/07/22 16:10 Wound Drainage - Leg Anaerobic Culture - Final No anaerobic bacteria isolated. 09/11/22 06:45 Nasal Secretion SARS-CoV-2 Antigen (Rapid) - Final 09/07/22 11:10 Urine, Clean Catch Urine Culture - Final Staphylococcus aureus 09/07/22 16:10 Wound - Leg, Left Gram Stain - Final 09/07/22 16:10 Wound - Leg, Left Wound Culture - Final Streptococcus group C Physical Exam Const alert and oriented x3 Resp Auscultation: wheezes Cardio regular rate GI non-tender and non-distended GI Narrative: obese Auscultation: normoactive bowel sounds Palpation: soft Extremity Extremity Narrative: erythema LLE General Extremity: edema bilateral (mild) Neuro Sensorium / Orientation: awake and alert Assessment & Plan Assessment/Plan (1) CKD (chronic kidney disease), stage III: PLAN: creatinine improved to 1.3 today. (2) Acute kidney injury superimposed on CKD: PLAN: due to sepsis, hypotension resolved (3) Cellulitis of left lower leg: PLAN: iv antibx . ID following (4) Sepsis: PLAN: leukocytosis improved, afebrile. Cx negative (5) Hypoxia: PLAN: on iv lasix in negative balance (6) Essential hypertension: PLAN: stable (7) Diabetes mellitus: (8) Morbid obesity: (9) Hypokalemia: PLAN: on oral potassium
--- NOTE | 2022-09-13 16:48 | CASEMGMT ---
HELGA POWELL face to face with pt and pt's and daughter Nadine. Discussed plan for home health at discharge which all agree remains the plan. Discussed home health providers and pt's choice is [facility]. Referral called to Renetta at [facility] with message left on Renetta's voicemail. Will continue to follow for acceptance and SOC. Patricia Hutchison RN CM
[2022-09-13 18:56] LABS: Bedside Glucose 325 mg/dL (74-106)
[2022-09-13] MEDS: MELATONIN 10 MG TABLET PO (23:39)
[2022-09-13] MEDS: Atorvastatin Calcium 40 MG Tablet PO (23:47)
[2022-09-14] VITALS (16 sets, daily range): BP systolic 141–152; BP diastolic 73–85; PULSE 64–125; RESP 12–27; TEMP 36.6–36.9; O2SAT 89–98; BMI 39.1
[2022-09-14 01:01] LABS: Bedside Glucose 242 mg/dL (74-106)
[2022-09-14 06:20] LABS: Absolute Lymphocyte Count 0.54 X10^3/uL (0.83-4.51); Absolute Neutrophil Count 7.3 X10^3/uL (2.0-7.7); Basophil# 0.03 X10^3/uL; Basophil% 0.4 % (0-1); Eosinophil# 0.02 X10^3/uL; Eosinophils% 0.2 % (0-5); Hematocrit 42.9 % (40-54); Hemoglobin 13.6 g/dL (13.0-16.5); Lymphocyte # 0.54 X10^3/ul (0.83-4.51); Lymphocyte % 6.5 % (19-41); Mean Corp Hgb Conc 31.7 g/dL (32-36); Mean Corpuscular Hgb 29.8 pg (27.0-32.0); Mean Corpuscular Volume 93.9 fL (80-94); Mean Platelet Vol. 9.5 fl (6.2-12.0); Monocyte# 0.26 X10^3/uL; Monocyte% 3.1 % (0-10); NRBC Flagged by Analyzer 0 % (0-5); Neutrophil # 7.25 X10^3/uL (2.7-7.7); Neutrophil % 87.7 % (47-70); POSITIVE DIFFERENTIAL YES; Platelet Count 180 K/mm3 (150-450); RBC Distribution Width CV 14.6 % (11.6-14.6); RBC Distribution Width SD 50.5 fl (35.1-43.9); Red Blood Count 4.57 M/mm3 (4.6-6.2); White Blood Count 8.3 K/mm3 (4.4-11.0)
[2022-09-14 06:28] LABS: Differential Indicated SCAN CRITERIA MET
[2022-09-14] MEDS: Menthol/Lanolin/Calamine/Znox 113 GM Tube 1 APPLIC TOPICAL ×3 (06:28→20:39)
[2022-09-14] MEDS: Levothyroxine 50 MCG Tablet PO (06:29)
[2022-09-14 06:30] LABS: International Normalized Ratio 1.6; Prothrombin Time (Protime)PT. 18.7 SECONDS (11.7-14.9)
[2022-09-14] MEDS: Furosemide 40 MG/4 ML Vial IV (06:30)
[2022-09-14] MEDS: Insulin Lispro 100 UNIT/ML INSULN.PEN SC ×4 (06:35→23:14)
[2022-09-14] MEDS: Cefazolin 2 GM in 0.9% Normal Saline 100 ML IV ×3 (06:38→20:54)
[2022-09-14 06:51] LABS: Anion Gap 7 (5-15); BUN 46 mg/dL (7-18); BUN/Creat Ratio 31.5 RATIO (10-20); Calcium,Total 8.5 mg/dL (8.5-10.1); Chloride 102 mmol/L (98-107); Creatinine, Serum 1.46 mg/dL (0.70-1.30); EST Glomerular Filtration Rate 49 mL/min (>60); Est Glom Filt Rate - Afr Amer 60 mL/min (>60); Estimated Creatinine Clearance 35.69 ml/min; Glucose 236 mg/dL (74-106); Sodium Level 140 mmol/L (136-145)
[2022-09-14 07:20] LABS: Bedside Glucose 241 mg/dL (74-106)
[2022-09-14] MEDS: Ipratropium/Albuterol Sulfate 3 ML AMPUL.NEB INHALATION ×3 (07:35→19:04)
[2022-09-14] MEDS: Amiodarone 200 MG Tablet 100 MG PO (09:25)
[2022-09-14] MEDS: Metoprolol Tartrate 100 MG Tablet PO ×2 (09:26→20:43)
[2022-09-14] MEDS: Clopidogrel Bisulfate 75 MG Tablet PO (09:26)
[2022-09-14] MEDS: Potassium Chloride Oral Tablet 20 MEQ 40 MEQ PO (09:26)
[2022-09-14] MEDS: Pantoprazole Sodium 20 MG Tablet PO (09:26)
[2022-09-14] MEDS: Aspirin 81 MG TAB.CHEW PO (09:26)
[2022-09-14] MEDS: Hydrocortisone Sod Succinate 100 MG/2 ML Vial 50 MG IV (09:27)
[2022-09-14] MEDS: Potassium Chloride Oral Tablet 20 MEQ PO ×2 (09:30→16:37)
--- NOTE | 2022-09-14 09:38 | PN.ID_ITS ---
Physical Exam Narrative Feeling better, leg less sore, no fever Const alert and no apparent distress Resp Auscultation: wheezes Cardio regular rate and regular rhythm GI soft to palpation, non-tender and non-distended Extremity General Extremity: edema Skin Skin Narrative: LLE wrapped, improving erythema ID ID: Route of nutrition/ use of supplements: [] Nutritional Intake: [] IV Site: [] Dumont Catheter: [] Assessment & Plan Assessment/Plan (1) Acute kidney injury superimposed on CKD: (2) Severe sepsis: PLAN: LLE wound cx with group C strep. Ucx with mSSA, dumont in place, paired bcx remain neg. On ancef. Plan on 5 more days po keflex 500mg tid at disc harge. Will follow (3) Cellulitis of left lower leg:
--- NOTE | 2022-09-14 10:18 | PN.HOSP_ITS ---
Reason for Visit Reason for Visit: Diagnoses Sepsis, unspecified organism (09/07/22) Type 2 diabetes mellitus without complications (09/07/22) Morbid (severe) obesity due to excess calories (09/07/22) Acidosis, unspecified (09/07/22) Hypokalemia (09/07/22) Obstructive sleep apnea (adult) (pediatric) (09/07/22) Essential (primary) hypertension (09/07/22) Paroxysmal atrial fibrillation (09/07/22) Chronic systolic (congestive) heart failure (09/07/22) Gastro-esophageal reflux disease without esophagitis (09/07/22) Cellulitis of left lower limb (09/07/22) Acute kidney failure, unspecified (09/07/22) Chronic kidney disease, stage 3 unspecified (09/07/22) Chronic kidney disease, unspecified (09/07/22) Hypoxemia (09/07/22) Altered mental status, unspecified (09/07/22) Severe sepsis without septic shock (09/07/22) Hyperglycemia, unspecified (09/07/22) Wedge compression fracture of unspecified lumbar vertebra, initial encounter for closed fracture (09/07/22) Presence of coronary angioplasty implant and graft (09/07/22) Subjective Subjective Patient seen complains of extreme weakness. Had a discussion with patient and family regarding his current condition. Patient willing to be discharged to detention facility for further rehab prior to going home. Patient still remains hypokalemic with potassium of 3.0 additional potassium replacement given Objective Data Objective Data Vital Signs: Vital Signs Temp Pulse Resp BP Pulse Ox O2 Del Method O2 Flow Rate 97.9 F 122 H 20 H 141/73 H 93 Nasal Cannula 3 09/14/22 09:12 09/14/22 09:26 09/14/22 09:12 09/14/22 09:12 09/14/22 09:12 09/14/22 09:45 09/14/22 09:45 FiO2 45 09/14/22 03:50 Oxygen Flow Rate (L/min) 3 Oxygen Delivery Method Nasal Cannula Weight: 105.8 kg Body Mass Index (BMI) 39.1 Intake & Output: Intake and Output for Last 24 Hours 09/12/22 09/13/22 09/14/22 23:59 23:59 23:59 Intake Total 1030 / 1030 1310 / 1310 220 / 220 Output Total 4300 / 4300 3200 / 3850 2049 / 2049 Balance -3270 / -3270 -1890 / -2540 -1830 / -1830 Lab / Micro Data Result Diagrams: 09/14/22 06:13 09/14/22 06:13 Labs: Laboratory Results - last 24 hr 09/13/22 10:55: POC Glucose 322 H 09/13/22 16:01: POC Glucose 325 H 09/13/22 23:39: POC Glucose 242 H 09/14/22 06:13: WBC 8.3, RBC 4.57 L, Hgb 13.6, Hct 42.9, MCV 93.9, MCH 29.8, MCHC 31.7 L D, RDW Std Deviation 50.5 H, RDW Coeff of Alley 14.6, Plt Count 180, MPV 9.5, Immature Gran % (Auto) 2.100 H, Neut % (Auto) 87.7 H, Lymph % (Auto) 6.5 L, [place] % (Auto) 3.1, Eos % (Auto) 0.2, Baso % (Auto) 0.4, Absolute Neuts (a uto) 7.3, Absolute Lymphs (auto) 0.54 L, Nucleated RBC % 0 09/14/22 06:13: PT 18.7 H, INR 1.6 09/14/22 06:13: Sodium 140, Potassium 3.0 L, Chloride 102, Carbon Dioxide 31.0, Anion Gap 7, BUN 46 H, Creatinine 1.46 H, Estim Creat Clear Calc 35.69, Est GFR (MDRD) Af Amer 60, Est GFR (MDRD) Non-Af 49 L, BUN/Creatinine Ratio 31.5 H, Glucose 236 H, Calcium 8.5 09/14/22 06:34: POC Glucose 241 H Micro: Microbiology 09/07/22 10:00 Blood Culture (Wb) - Anticubital Left Blood Culture - Final No growth in 5 days. 09/07/22 09:55 Blood Culture (Wb) - Anticubital Right Blood Culture - Final No growth in 5 days. 09/07/22 16:10 Wound Drainage - Leg Anaerobic Culture - Final No anaerobic bacteria isolated. 09/11/22 06:45 Nasal Secretion SARS-CoV-2 Antigen (Rapid) - Final 09/07/22 11:10 Urine, Clean Catch Urine Culture - Final Staphylococcus aureus 09/07/22 16:10 Wound - Leg, Left Gram Stain - Final 09/07/22 16:10 Wound - Leg, Left Wound Culture - Final Streptococcus group C Physical Exam Narrative GENERAL: cooperative HEENT: Atraumatic; normocephalic EYES; Anicteric, Normal Conjunctiva NECK; supple, normal thyroid, RESPIRATORY: Diminished to auscultation CARDIOVASCULAR: Regular S1 S2, GI: soft, normoactive bowel sounds, : No Renal angle tenderness; EXTREMITIES: Edema involving both upper and lower extremities MUSCULOSKELETAL: no muscle wasting NEURO: Awake; no lateralizing signs. SKIN: Area of induration on the medial aspect of the left thigh PSYCH; Flat affect Assessment & Plan Assessment/Plan (1) Severe sepsis: PLAN: Plan Patient is a 81-year-old male admitted with left lower extremity cellulitis due to group C strep. Hospital stay complicated by development of multi-infarct CVA involving the right hemisphere 1. Severe sepsis secondary to left lower extremity cellulitis ? Secondary to group C strep. Patient managed with broad-spectrum antibiotic therapy with Zosyn. Zosyn has been switched to cefdinir ? 09/13/2022 consult was placed to infectious disease per family request 2. Multi-infarct CVA of right hemisphere ? Patient was foundund to have multiple infarcts in the right hemisphere: Multiple small acute infarct in the right MCA territory involving the right frontal cortex, right posterior parietal lobe, right temporal lobe, right basal ganglia. Additional old right basal ganglia lacunar infarct, chronic involutional white matter changes. MRA demonstrated developmentally artery great A1 segment with only faint flow signal which may be due to slow flow. Partial occlusion of small caliber right A1 segment is a consideration. MRA neck demonstrated abnormal appearance of flow within the right carotid bulb which in part may be accentuated by motion artifact and torturous vessels however findings suspicious of short segment right carotid bulb stenosis and recommended consider evaluation with either CTA or Doppler for verification. Carotid ultrasound ordered. Neurology evaluated, SHAINA ordered, and aspirin + Plavix while Coumadin is held was recommended. -09/12/2022; carotid ultrasound demonstrated irregular plaque noted in the proximal right internal carotid artery with greater than 70% stenosis and likely greater than 80% stenosis of the internal carotid artery. Patient was found to have less than 50% stenosis of the left internal carotid artery 3. Acute hypoxic respiratory failure ? Developed after patient was admitted and this was only transient for 2 days from 09/11/2022 to 09/12/2022 Patient was on on bipap/airvo ABG 09/07 ph 7.33 pco2 38.4 po2 105 on bipap peep 8 ABG 09/10 ph 7.44 pco2 32.9 po2 84 on 4L NC. ? 09/13/2022 patient has been weaned off high flow oxygen back on nasal cannula 4 L at rest 4. Paroxysmal A-fib with RVR ? Patient is on Coumadin and amiodarone. Coumadin has been held due to elevated INR 5. Mild thrombocytopenia ? Stable continue with monitoring 6. Acute kidney injury ? Superimposed on chronic kidney disease stage III ? Monitoring with daily BMPs nephrology on board 7. Class II obesity with BMI of 39 ? Weight loss advised 8. Acute on chronic congestive heart failure with preserved ejection fraction ? Echo obtained on 09/07/2022 demonstrated EF of 55%. In view of patient worsening edema patient diuretics reinitiated 9. Coronary artery disease ? With previous PCI in 2018 10. Diabetes mellitus type II -patient's oral hypoglycemics held. Placed on long acting insulin, Accu-Cheks a.c. and at bedtime and covered with sliding scale insulin 11. Chronic back pain ? With history of multiple lumbar compression fractures ? Patient pain meds held in view of delirium 12. DVT prophylaxis ? Patient is on Coumadin INR is therapeutic 13. Physical deconditioning - Requested for PT OT eval and social work lecturer to assist with discharge planning 14. Mild intermittent asthma ? DuoNebs as needed Time spent in the patient's overall evaluation,decision-making process, review of diagnostic data, adjustment of management, discussion with other providers, nursing nursing and ancillary staff involved in patient's care documentation, 38 Minutes Charges/Coding Visit Charges Inpatient E&M: 73055 Subs Hosp L2
--- NOTE | 2022-09-14 10:30 | PN.CC_ITS ---
Assessment & Plan Assessment/Plan (1) Sepsis: PLAN: Plan RECOMMENDATIONS: 1. Continue to wean supplemental oxygen to maintain saturations at or above 90%. 2. Continue antimicrobials per ID recommendations. 3. Continue bronchodilators as ordered. 4. Discontinue stress dose steroids. 5. Follow-up in pulmonary medicine clinic 2 weeks after discharge. 6. Will sign off from a pulmonary perspective. Please call with any additional questions. IMPRESSIONS: 1. Shortness of breath and hypoxemia Clinical concern for underlying decompensated heart failure with preserved ejection fraction. The patient's respiratory status is slowly improving with diuresis. Plan to continue the aforementioned as tolerated by hemodynamics and renal function. The patient should follow-up with the pulmonary medicine clinic 2 weeks after his discharge from the hospital. 2. Sepsis secondary to lower extremity cellulitis Continue antimicrobials to complete treatment course. Stress dose steroids can be discontinued. 3. History of paroxysmal atrial fibrillation/coronary artery disease/obstructive sleep apnea/obesity/chronic kidney disease Complicates care, management, recovery and prognosis. Continue home medications as indicated. This note was generated with [employer] dictation software. It may contain incorrect words, spelling, and punctuation that were not noted in checking the note before signing. Subjective Subjective The patient was seen and examined at the bedside this morning. Events from the last 24 hours have been reviewed. The patient is currently afebrile, hemodynamically stable and maintaining appropriate oxygen saturations on 3 L/min via nasal cannula. The patient is documented to be overall net -8.3 L for the hospitalization. Potassium was low at 3.0. Creatinine is stable at 1.46. The patient is doing well from a respiratory perspective. Family is present at the bedside. The patient did report that there were tentative plans for TCU disposition. Objective Data Objective Data The patient's most recent lab work, culture data and imaging studies have all been personally reviewed. Transesophageal echocardiogram completed on September 11 demonstrated normal LV size and function with an ejection fraction of 60%. The RV was noted to be normal in size and function. Bubble contrast study was negative for shunt. No thrombus was identified. Vital Signs: Vital Signs Temp Pulse Resp BP Pulse Ox O2 Del Method O2 Flow Rate 97.9 F 122 H 20 H 141/73 H 93 Nasal Cannula 3 09/14/22 09:12 09/14/22 09:26 09/14/22 09:12 09/14/22 09:12 09/14/22 09:12 09/14/22 09:45 09/14/22 09:45 FiO2 45 09/14/22 03:50 Oxygen Flow Rate (L/min) 3 Oxygen Delivery Method Nasal Cannula Weight: 233 lb 3.985 oz Body Mass Index (BMI) 39.1 Intake & Output: Intake and Output for Last 24 Hours 09/12/22 09/13/22 09/14/22 23:59 23:59 23:59 Intake Total 1030 / 1030 1310 / 1310 220 / 220 Output Total 4300 / 4300 3200 / 3850 2049 / 2049 Balance -3270 / -3270 -1890 / -2540 -1830 / -1830 Lab / Micro Data Attestation: I reviewed the patient's lab results. Result Diagrams: 09/14/22 06:13 09/14/22 06:13 Labs: Laboratory Results - last 24 hr 09/13/22 10:55: POC Glucose 322 H 09/13/22 16:01: POC Glucose 325 H 09/13/22 23:39: POC Glucose 242 H 09/14/22 06:13: WBC 8.3, RBC 4.57 L, Hgb 13.6, Hct 42.9, MCV 93.9, MCH 29.8, MCHC 31.7 L D, RDW Std Deviation 50.5 H, RDW Coeff of Alley 14.6, Plt Count 180, MPV 9.5, Immature Gran % (Auto) 2.100 H, Neut % (Auto) 87.7 H, Lymph % (Auto) 6.5 L, Falls % (Auto) 3.1, Eos % (Auto) 0.2, Baso % (Auto) 0.4, Absolute Neuts (auto) 7.3, Absolute Lymphs (auto) 0.54 L, Nucleated RBC % 0 09/14/22 06:13: PT 18.7 H, INR 1.6 09/14/22 06:13: Sodium 140, Potassium 3.0 L, Chloride 102, Carbon Dioxide 31.0, Anion Gap 7, BUN 46 H, Creatinine 1.46 H, Estim Creat Clear Calc 35.69, Est GFR (MDRD) Af Amer 60, Est GFR (MDRD) Non-Af 49 L, BUN/Creatinine Ratio 31.5 H, Glucose 236 H, Calcium 8.5 09/14/22 06:34: POC Glucose 241 H Micro: Microbiology 09/07/22 10:00 Blood Culture (Wb) - Anticubital Left Blood Culture - Final No growth in 5 days. 09/07/22 09:55 Blood Culture (Wb) - Anticubital Right Blood Culture - Final No growth in 5 days. 09/07/22 16:10 Wound Drainage - Leg Anaerobic Culture - Final No anaerobic bacteria isolated. 09/11/22 06:45 Nasal Secretion SARS-CoV-2 Antigen (Rapid) - Final 09/07/22 11:10 Urine, Clean Catch Urine Culture - Final Staphylococcus aureus 09/07/22 16:10 Wound - Leg, Left Gram Stain - Final 09/07/22 16:10 Wound - Leg, Left Wound Culture - Final Streptococcus group C Radiography Diagnostic Testing: Radiology Impression Transesophageal Echocardiogram 09/09/22 00:57 Interpretation Summary Normal left ventricle. Left ventricular systolic function is normal. The estimated ejection fraction is 60 %. Intact atrial septum Bubble contrast study negative for right to left interatrial shunt. No thrombus is detected in the left atrial appendage. Ordering Physician: Selina Grissom Referring Physician: MD Aman Eric Performed By: Diya Quan PITER Physical Exam Const alert and no apparent distress Constitutional Narrative: Sitting in bedside recliner. General Appearance: cooperative Nutritional Appearance: obese HEENT normocephalic and head/scalp atraumatic Eyes PERRL, EOMs intact bilaterally and conjunctivae normal Neck supple General: trachea midline Chest inspection of chest normal Resp normal respiratory effort Auscultation: diminished lung sounds Cardio S1 normal heart sound and S2 normal heart sound Rhythm: abnormal rhythm GI normal to inspection, nondistended, normoactive bowel sounds Extremity General Extremity: edema Neuro CN's II-XII intact bilaterally, moves all extremities and no focal motor deficit s Psych cooperative and affect normal Charges/Coding Visit Charges Inpatient E&M: 02429 Subs Hosp L2
[2022-09-14] MEDS: Potassium Chloride 10mEq/100mL 10 MEQ/100 ML IV.SOLN. 100 MEQ IV BOLUS ×4 (10:41→16:27)
[2022-09-14] MEDS: Furosemide 40 MG Tablet PO (10:41)
[2022-09-14 12:20] LABS: Bedside Glucose 299 mg/dL (74-106)
--- NOTE | 2022-09-14 12:36 | CASEMGMT ---
Physician spoke with patient and his family and they are all agreeable to [facility]. SW spoke with patient and his family. They confirmed they agree with [facility]. LACHELLE asked who [facility] liaison should call. Janelle should call Negro Reynaga at [phone]. LACHELLE spoke with Yamile regarding referral. TCU can take patient Sunday vs Sunday. LACHELLE will notify family and physician. Plan: [facility] under skilled level of care. Katie MENDOZA
--- NOTE | 2022-09-14 15:29 | CASEMGMT ---
SW met with patient and his family. SW let them know TCU can take him and he would go Sunday or Sunday. LACHELLE also explained visitation at TCU and that 1 person would be able to spend the night. SW answered their questions and let them know SW is available should they have any more questions. Katie Tobias USED [employer]ENOVATOR KELLY
--- NOTE | 2022-09-14 15:36 | PCM.PN.REN ---
Subjective Subjective breathless, weak, eval for rehab. Edema and erythema LLE improving. Episode of afib with rvr with minimal exertion. HR stable now Objective Data Objective Data Vital Signs: Vital Signs Temp Pulse Resp BP Pulse Ox O2 Del Method O2 Flow Rate 98.1 F 76 18 147/75 H 94 Nasal Cannula 2 09/14/22 14:29 09/14/22 14:38 09/14/22 14:29 09/14/22 14:29 09/14/22 14:29 09/14/22 14:29 09/14/22 14:29 FiO2 45 09/14/22 03:50 Oxygen Flow Rate (L/min) 2 Oxygen Delivery Method Nasal Cannula Weight: 105.8 kg Body Mass Index (BMI) 39.1 Intake & Output: Intake and Output for Last 24 Hours 09/12/22 09/13/22 09/14/22 23:59 23:59 23:59 Intake Total 1030 / 1030 1310 / 1310 530 / 530 Output Total 4300 / 4300 3200 / 3850 3050 / 3050 Balance -3270 / -3270 -1890 / -2540 -2520 / -2520 Lab / Micro Data Result Diagrams: 09/14/22 06:13 09/14/22 06:13 Labs: Laboratory Results - last 24 hr 09/13/22 16:01: POC Glucose 325 H 09/13/22 23:39: POC Glucose 242 H 09/14/22 06:13: WBC 8.3, RBC 4.57 L, Hgb 13.6, Hct 42.9, MCV 93.9, MCH 29.8, MCHC 31.7 L D, RDW Std Deviation 50.5 H, RDW Coeff of Alley 14.6, Plt Count 180, MPV 9.5, Immature Gran % (Auto) 2.100 H, Neut % (Auto) 87.7 H, Lymph % (Auto) 6.5 L, Alcorn % (Auto) 3.1, Eos % (Auto) 0.2, Baso % (Auto) 0.4, Absolute Neuts (auto) 7.3, Absolute Lymphs (auto) 0.54 L, Nucleated RBC % 0 09/14/22 06:13: PT 18.7 H, INR 1.6 09/14/22 06:13: Sodium 140, Potassium 3.0 L, Chloride 102, Carbon Dioxide 31.0, Anion Gap 7, BUN 46 H, Creatinine 1.46 H, Estim Creat Clear Calc 35.69, Est GFR (MDRD) Af Amer 60, Est GFR (MDRD) Non-Af 49 L, BUN/Creatinine Ratio 31.5 H, Glucose 236 H, Calcium 8.5 09/14/22 06:34: POC Glucose 241 H 09/14/22 12:00: POC Glucose 299 H Micro: Microbiology 09/07/22 10:00 Blood Culture (Wb) - Anticubital Left Blood Culture - Final No growth in 5 days. 09/07/22 09:55 Blood Culture (Wb) - Anticubital Right Blood Culture - Final No growth in 5 days. 09/07/22 16:10 Wound Drainage - Leg Anaerobic Culture - Final No anaerobic bacteria isolated. 09/11/22 06:45 Nasal Secretion SARS-CoV-2 Antigen (Rapid) - Final 09/07/22 11:10 Urine, Clean Catch Urine Culture - Final Staphylococcus aureus 09/07/22 16:10 Wound - Leg, Left Gram Stain - Final 09/07/22 16:10 Wound - Leg, Left Wound Culture - Final Streptococcus group C Physical Exam Const alert and oriented x3 Resp Auscultation: wheezes Cardio regular rate GI non-tender and non-distended GI Narrative: obese Auscultation: normoactive bowel sounds Palpation: soft Bladder / Kidney Exam: catheter in place Extremity General Extremity: edema Skin Skin Narrative: erythema LLE, nontender, wrapped Neuro Sensorium / Orientation: awake and alert Psych cooperative Assessment & Plan Assessment/Plan (1) CKD (chronic kidney disease), stage III: PLAN: creatinine 1.46 change iv lasix to po (2) Acute kidney injury superimposed on CKD: PLAN: due to sepsis, hypotension resolved (3) Cellulitis of left lower leg: PLAN: iv antibx . ID following (4) Sepsis: PLAN: leukocytosis improved, afebrile. Cx negative (5) Hypoxia: PLAN: on iv lasix in negative balance. change to po lasix. Underlying asthma (6) Essential hypertension: PLAN: stable (7) Diabetes mellitus: (8) Morbid obesity: (9) Hypokalemia: PLAN: replace potassium
[2022-09-14] MEDS: Glucerna Shake 120 ML LIQUID PO (16:40)
[2022-09-14 17:00] LABS: Bedside Glucose 282 mg/dL (74-106)
[2022-09-14] MEDS: Atorvastatin Calcium 40 MG Tablet PO (20:42)
[2022-09-14] MEDS: MELATONIN 10 MG TABLET PO (20:42)
[2022-09-14] MEDS: Acetaminophen 325 MG Tablet 650 MG PO (20:54)
[2022-09-15] VITALS (16 sets, daily range): BP systolic 126–132; BP diastolic 67–73; PULSE 55–90; RESP 12–29; TEMP 36.6–36.7; O2SAT 87–95; BMI 39.1
[2022-09-15 00:06] LABS: Bedside Glucose 279 mg/dL (74-106)
[2022-09-15] MEDS: Acetaminophen 325 MG Tablet 650 MG PO (06:14)
[2022-09-15] MEDS: Cefazolin 2 GM in 0.9% Normal Saline 100 ML IV ×2 (06:14→13:38)
[2022-09-15] MEDS: Menthol/Lanolin/Calamine/Znox 113 GM Tube 1 APPLIC TOPICAL ×2 (06:21→13:43)
[2022-09-15] MEDS: Levothyroxine 50 MCG Tablet PO (06:21)
[2022-09-15] MEDS: Ipratropium/Albuterol Sulfate 3 ML AMPUL.NEB INHALATION ×2 (06:48→13:08)
[2022-09-15] MEDS: Insulin Lispro 100 UNIT/ML INSULN.PEN SC ×2 (07:04→11:17)
[2022-09-15 07:45] LABS: Bedside Glucose 167 mg/dL (74-106)
--- NOTE | 2022-09-15 07:52 | PCM.PN.HOSP ---
Reason for Visit Reason for Visit: Diagnoses Hypoxia Objective Data Objective Data Vital Signs: Vital Signs Temp Pulse Resp BP Pulse Ox O2 Del Method O2 Flow Rate 98.0 F 60 24 H 132/72 H 92 Nasal Cannula 3 09/15/22 02:00 09/15/22 06:48 09/15/22 06:48 09/15/22 02:00 09/15/22 06:48 09/15/22 06:48 09/15/22 06:48 FiO2 45 09/15/22 05:44 Oxygen Flow Rate (L/min) 3 Oxygen Delivery Method Nasal Cannula Weight: 105.3 kg Body Mass Index (BMI) 39.1 Intake & Output: Intake and Output for Last 24 Hours 09/13/22 09/14/22 09/15/22 23:59 23:59 23:59 Intake Total 1310 / 1310 840 / 890 250 / 250 Output Total 3200 / 3850 3050 / 3500 750 / 750 Balance -1890 / -2540 -2210 / -2610 -500 / -500 Lab / Micro Data Result Diagrams: 09/14/22 06:13 09/14/22 06:13 Labs: Laboratory Results - last 24 hr 09/14/22 12:00: POC Glucose 299 H 09/14/22 16:30: POC Glucose 282 H 09/14/22 23:11: POC Glucose 279 H 09/15/22 06:59: POC Glucose 167 H Micro: Microbiology 09/07/22 10:00 Blood Culture (Wb) - Anticubital Left Blood Culture - Final No growth in 5 days. 09/07/22 09:55 Blood Culture (Wb) - Anticubital Right Blood Culture - Final No growth in 5 days. 09/07/22 16:10 Wound Drainage - Leg Anaerobic Culture - Final No anaerobic bacteria isolated. 09/11/22 06:45 Nasal Secretion SARS-CoV-2 Antigen (Rapid) - Final 09/07/22 11:10 Urine, Clean Catch Urine Culture - Final Staphylococcus aureus 09/07/22 16:10 Wound - Leg, Left Gram Stain - Final 09/07/22 16:10 Wound - Leg, Left Wound Culture - Final Streptococcus group C Physical Exam Narrative GENERAL: cooperative HEENT: Atraumatic; normocephalic EYES; Anicteric, Normal Conjunctiva NECK; supple, normal thyroid, RESPIRATORY: Diminished to auscultation CARDIOVASCULAR: Regular S1 S2, GI: soft, normoactive bowel sounds, : No Renal angle tenderness; EXTREMITIES: Edema involving both upper and lower extremities MUSCULOSKELETAL: no muscle wasting NEURO: Awake; no lateralizing signs. SKIN: Area of induration on the medial aspect of the left thigh PSYCH; Flat affect Assessment & Plan Assessment/Plan (1) Severe sepsis: PLAN: Plan Patient is a 81-year-old male admitted with left lower extremity cellulitis due to group C strep. Hospital stay complicated by development of multi-infarct CVA involving the right hemisphere 1. Severe sepsis secondary to left lower extremity cellulitis ? Secondary to group C strep. Patient managed with broad-spectrum antibiotic therapy with Zosyn. Zosyn has been switched to cefdinir ? 09/13/2022 consult was placed to infectious disease per family request 2. Multi-infarct CVA of right hemisphere ? Patient was foundund to have multiple infarcts in the right hemisphere: Multiple small acute infarct in the right MCA territory involving the right frontal cortex, right posterior parietal lobe, right temporal lobe, right basal ganglia. Additional old right basal ganglia lacunar infarct, chronic involutional white matter changes. MRA demonstrated developmentally artery great A1 segment with only faint flow signal which may be due to slow flow. Partial occlusion of small caliber right A1 segment is a consideration. MRA neck demonstrated abnormal appearance of flow within the right carotid bulb which in part may be accentuated by motion artifact and torturous vessels however findings suspicious of short segment right carotid bulb stenosis and recommended consider evaluation with either CTA or Doppler for verification. Carotid ultrasound ordered. Neurology evaluated, SHAINA ordered, and aspirin + Plavix while Coumadin is held was recommended. -09/12/2022; carotid ultrasound demonstrated irregular plaque noted in the proximal right internal carotid artery with greater than 70% stenosis and likely greater than 80% stenosis of the internal carotid artery. Patient was found to have less than 50% stenosis of the left internal carotid artery 3. Acute hypoxic respiratory failure ? Developed after patient was admitted and this was only transient for 2 days from 09/11/2022 to 09/12/2022 Patient was on on bipap/airvo ABG / ph 7.33 pco2 38.4 po2 105 on bipap peep 8 ABG / ph 7.44 pco2 32.9 po2 84 on 4L NC. ? 09/13/2022 patient has been weaned off high flow oxygen back on nasal cannula 4 L at rest 4. Paroxysmal A-fib with RVR ? Patient is on Coumadin and amiodarone. Coumadin has been held due to elevated INR 5. Mild thrombocytopenia ? Stable continue with monitoring 6. Acute kidney injury ? Superimposed on chronic kidney disease stage III ? Monitoring with daily BMPs nephrology on board 7. Class II obesity with BMI of 39 ? Weight loss advised 8. Acute on chronic congestive heart failure with preserved ejection fraction ? Echo obtained on 09/07/2022 demonstrated EF of 55%. In view of patient worsening edema patient diuretics reinitiated 9. Coronary artery disease ? With previous PCI in 2018 10. Diabetes mellitus type II -patient's oral hypoglycemics held. Placed on long acting insulin, Accu-Cheks a.c. and at bedtime and covered with sliding scale insulin 11. Chronic back pain ? With history of multiple lumbar compression fractures ? Patient pain meds held in view of delirium 12. DVT prophylaxis ? Patient is on Coumadin INR is therapeutic 13. Physical deconditioning - Requested for PT OT eval and social media strategist to assist with discharge planning 14. Mild intermittent asthma ? DuoNebs as needed Time spent in the patient's overall evaluation,decision-making process, review of diagnostic data, adjustment of management, discussion with other providers, nursing nursing and ancillary staff involved in patient's care documentation, 38 Minutes Charges/Coding Visit Charges Inpatient E&M: 99412 Subs Hosp L2
[2022-09-15] MEDS: Furosemide 40 MG Tablet PO (08:06)
[2022-09-15] MEDS: Metoprolol Tartrate 100 MG Tablet PO (08:06)
[2022-09-15] MEDS: Pantoprazole Sodium 20 MG Tablet PO (08:06)
[2022-09-15] MEDS: Amiodarone 200 MG Tablet 100 MG PO (08:06)
[2022-09-15] MEDS: Aspirin 81 MG TAB.CHEW PO (08:06)
[2022-09-15] MEDS: Potassium Chloride Oral Tablet 20 MEQ PO (08:07)
[2022-09-15] MEDS: Clopidogrel Bisulfate 75 MG Tablet PO (08:07)
[2022-09-15] MEDS: Glucerna Shake 120 ML LIQUID PO ×2 (08:14→11:20)
[2022-09-15 09:10] LABS: Absolute Lymphocyte Count 0.81 X10^3/uL (0.83-4.51); Absolute Neutrophil Count 5.6 X10^3/uL (2.0-7.7); Basophil# 0.02 X10^3/uL; Basophil% 0.3 % (0-1); Eosinophil# 0.08 X10^3/uL; Eosinophils% 1.2 % (0-5); Hematocrit 41.7 % (40-54); Hemoglobin 12.8 g/dL (13.0-16.5); Lymphocyte # 0.81 X10^3/ul (0.83-4.51); Lymphocyte % 11.7 % (19-41); Mean Corp Hgb Conc 30.7 g/dL (32-36); Mean Corpuscular Hgb 29.6 pg (27.0-32.0); Mean Corpuscular Volume 96.3 fL (80-94); Mean Platelet Vol. 9.8 fl (6.2-12.0); Monocyte# 0.27 X10^3/uL; Monocyte% 3.9 % (0-10); NRBC Flagged by Analyzer 0.3 % (0-5); Neutrophil # 5.59 X10^3/uL (2.7-7.7); Platelet Count 203 K/mm3 (150-450); RBC Distribution Width CV 14.4 % (11.6-14.6); RBC Distribution Width SD 51.8 fl (35.1-43.9); Red Blood Count 4.33 M/mm3 (4.6-6.2); White Blood Count 6.9 K/mm3 (4.4-11.0)
--- NOTE | 2022-09-15 09:14 | CASEMGMT ---
Patient is able to go to TCU today. SW notified patient, his son, and physician. Plan: [facility] TCU today pending physician's evaluation. Katie MENDOZA
--- NOTE | 2022-09-15 09:30 | PCM.TXEXTCAR ---
Diet Diet Order/Speech Therapy: 09/11/22 17:10 Diet: Cardiac: Calorie-Controlled Is pt able to select menu?: Yes Diet Comments: Distant Sup to ensure use of small bites/sips, slow rate, alt. bites/sips How many daily calories?: 1800 calorie Routine Orders/Code Status O2 Frequency: Continuous Keep PO Greater than or Equal to (%): 90 Routine Lab Work: CBC (09/18/2021), BMP (09/18/2021) and INR (09/18/2021) Code Status: Full Code Wound(s) left lower leg: Wound Type: cellulitis with some blistering Dressing Change: Adaptic lt fa: Wound Type: Skin Tear RFA: Wound Type: Skin Tear left inner thigh: Wound Type: large blistered area left lateral hip: Wound Type: blisters Therapies Physical Therapy: Eval and Treat Occupational Therapy: Eval and Treat Problem/Diagnosis (1) Severe sepsis: Status: Acute Code(s): A41.9 - Sepsis, unspecified organism; R65.20 - Severe sepsis without septic shock Plan Patient is a 81-year-old male admitted with left lower extremity cellulitis due to group C strep. Hospital stay complicated by development of multi-infarct CVA involving the right hemisphere 1. Severe sepsis secondary to left lower extremity cellulitis ? Secondary to group C strep. Patient managed with broad-spectrum antibiotic therapy with Zosyn. Zosyn has been switched to cefdinir ? 09/13/2022 consult was placed to infectious disease per family request 2. Multi-infarct CVA of right hemisphere ? Patient was foundund to have multiple infarcts in the right hemisphere: Multiple small acute infarct in the right MCA territory involving the right frontal cortex, right posterior parietal lobe, right temporal lobe, right basal ganglia. Additional old right basal ganglia lacunar infarct, chronic involutional white matter changes. MRA demonstrated developmentally artery great A1 segment with only faint flow signal which may be due to slow flow. Partial occlusion of small caliber right A1 segment is a consideration. MRA neck demonstrated abnormal appearance of flow within the right carotid bulb which in part may be accentuated by motion artifact and torturous vessels however findings suspicious of short segment right carotid bulb stenosis and recommended consider evaluation with either CTA or Doppler for verification. Carotid ultrasound ordered. Neurology evaluated, SHAINA ordered, and aspirin + Plavix while Coumadin is held was recommended. -09/12/2022; carotid ultrasound demonstrated irregular plaque noted in the proximal right internal carotid artery with greater than 70% stenosis and likely greater than 80% stenosis of the internal carotid artery. Patient was found to have less than 50% stenosis of the left internal carotid artery 3. Acute hypoxic respiratory failure ? Developed after patient was admitted and this was only transient for 2 days from 09/11/2022 to 09/12/2022 Patient was on on bipap/airvo ABG 09/07 ph 7.33 pco2 38.4 po2 105 on bipap peep 8 ABG 09/10 ph 7.44 pco2 32.9 po2 84 on 4L NC. ? 09/13/2022 patient has been weaned off high flow oxygen back on nasal cannula 4 L at rest 4. Paroxysmal A-fib with RVR ? Patient is on Coumadin and amiodarone. Coumadin has been held due to elevated INR 5. Mild thrombocytopenia ? Stable continue with monitoring 6. Acute kidney injury ? Superimposed on chronic kidney disease stage III ? Monitoring with daily BMPs nephrology on board 7. Class II obesity with BMI of 39 ? Weight loss advised 8. Acute on chronic congestive heart failure with preserved ejection fraction ? Echo obtained on 09/07/2022 demonstrated EF of 55%. In view of patient worsening edema patient diuretics reinitiated 9. Coronary artery disease ? With previous PCI in 2018 10. Diabetes mellitus type II -patient's oral hypoglycemics held. Placed on long acting insulin, Accu-Cheks a.c. and at bedtime and covered with sliding scale insulin 11. Chronic back pain ? With history of multiple lumbar compression fractures ? Patient pain meds held in view of delirium 12. DVT prophylaxis ? Patient is on Coumadin INR is therapeutic 13. Physical deconditioning - Requested for PT OT eval and social science professor to assist with discharge planning 14. Mild intermittent asthma ? DuoNebs as needed Time spent in the patient's overall evaluation,decision-making process, review of diagnostic data, adjustment of management, discussion with other providers, nursing nursing and ancillary staff involved in patient's care documentation, 38 Minutes Allergies/Procedures Done in Hospital Allergies No Known Allergies Allergy (Verified 09/06/22 19:59) Type of Care/Length of Stay Estimated LOS: Convalescent Care Less Than 30 days Type of Care Needed: Skilled Rehab Potential: Good Prognosis: Good Additional Orders/Day of Discharge Day of Discharge: 09/15/22 Dietary and Speech Recommendations Dietitian Recommendations/Changes: Continue 1800 calorie/consistent carbohydrate diet to manage medical conditions. RD will order 120mL Glucerna TID with medpass Discharge Plan Admission Admit Date/Time: 09/07/22 13:07 Attending Provider: Mateo Anderson Primary Care Provider: Eric Newton Consulting Providers: Sue Montiel ; Cheng Mccoy ; Floyd Cruz ; Luis Angel Stewart ; Dejuan Harvey ; Siomara Helm NP ; Rach Plasencia ; Juhi Quinn ; Ambrocio Wong Discharge Orders/Prescriptions Prescriptions: New furosemide 40 mg Tablet 40 mg PO DAILY Qty: 0 0RF acetaminophen [Tylenol] 325 mg Tablet 650 mg PO Q4H PRN PRN (Reason: Pain 1-10 Or Fever) Qty: 0 0RF albuterol sulfate 2.5 mg /3 mL (0.083 %) Solution For Nebulization 2.5 mg inhalation Q4H PRN (Reason: SOB/WHEEZING) Qty: 0 0RF metoprolol tartrate 100 mg Tablet 100 mg PO BID Qty: 0 0RF clopidogrel 75 mg Tablet 75 mg PO DAILY Qty: 0 0RF potassium chloride [Klor-Con M20] 20 mEq Tablet,Er Particles/Crystals 20 meq PO BIDCM Qty: 0 0RF levothyroxine 50 mcg Tablet 50 mcg PO 0600 Qty: 0 0RF Glucagon Emergency Kit (human) 1 mg Recon Soln 1 mg IM X1 PRN (Reason: Hypoglycemia) Qty: 0 0RF insulin lispro [Humalog KwikPen Insulin] 100 unit/mL Insulin Pen See Protocol subcut ACHS Qty: 0 0RF Protocol: 1. Sliding Scale Insulin Low Dosing Condition: 150-224 mg/dl = 1 unit Condition: 225-299 mg/dl = 2 units Condition: 300-374 mg/dl = 3 units Condition: 375-499 mg/dl = 4 units Condition: Greater than 449 call physician Protocol Text: - Use for Total Daily Dose of Insulin 15-27 units - Thin, elderly, renal patients LOW DOSING ALGORITHM Glucerna 1.2 Gabriel 0.06-1.2 gram-kcal/mL Liquid 120 ml PO TIDCM Qty: 0 0RF cephalexin 500 mg capsule 500 mg PO TID Qty: 15 0RF Continued atorvastatin 40 mg tablet 40 mg PO QHS Qty: 30 6RF cetirizine 10 mg capsule 10 mg PO HS Qty: 30 3RF valsartan 80 mg tablet 80 mg PO DAILY amlodipine 10 mg tablet 10 mg PO DAILY cholecalciferol (vitamin D3) 25 mcg (1,000 unit) tablet 25 mcg PO DAILY tizanidine 4 mg capsule 4 mg PO Q8H PRN (Reason: Pain) omeprazole 20 MG capsule 20 mg PO DAILY aspirin 81 MG tablet,chewable 81 mg PO DAILY@0800 warfarin 2 mg Tablet 2 mg PO SUTUWEFRSA acetaminophen 500 mg Tablet 500 mg PO Q6H PRN (Reason: Pain) ferrous sulfate 325 mg (65 mg iron) tablet 325 mg PO BID amiodarone 200 mg tablet 100 mg PO DAILY Qty: 15 11RF prednisone 5 mg tablet 10 mg PO DAILY Qty: 100 3RF Jardiance 10 mg tablet 10 mg PO DAILY Qty: 90 3RF Discontinued furosemide 40 mg tablet 20 mg PO DAILY levothyroxine 50 mcg Tablet 50 mcg PO DAILY potassium chloride 20 mEq Tablet Extended Release 20 meq PO DAILY lorazepam 0.5 mg Tablet 0.5 mg PO DAILY PRN (Reason: Anxiety) metoprolol tartrate 50 mg tablet 50 mg PO BID Qty: 180 3RF Referrals / Follow Up: Omero Be MD [Med Staff - Active Staff] - Within 2 Weeks (For carotid artery stenosis) Eric Newton MD [Primary Care Provider] - Within 2 Weeks Disposition Disposition (needs filled in before D/C Order can be placed): [facility]
--- NOTE | 2022-09-15 09:33 | PCM.DC.SUM ---
Providers Date of Admission: 09/07/22 Primary Care Physician: Dr. Eric Newton MD Consultations 09/07/22 13:43 Consult: General Surgery Routine Consulting Provider: Sue Montiel Reason for Consult: LLE cellulitis EMERGENT Consult: No Notified: Yes Date Notified: 09/07/22 Time Notified: 13:23 Method of Notification: Verbal Consult: Sales Data Analyst / Pulmonary Medicine Routine Consulting Provider: [facility] Reason for Consult: severe sepsis, rapidly progressive cellulitis EMERGENT Consult: No MD Notified: Yes Date Notified: 09/07/22 Time Notified: 13:14 Method of Notification: Verbal Consult: Nephrology Routine Consulting Provider: Rach Plasencia Reason for Consult: LILIA on CKD, had to get contrasted CT to eval for nec fasc, to ICU EMERGENT Consult: No Notified: Yes Date Notified: 09/07/22 Time Notified: 16:04 Method of Notification: Answering Service 09/08/22 10:12 Consult: Onc/Wound/drivers license examiner Routine Comment: 09/13/22 07:38 Consult: Infectious Disease Routine Consulting Provider: Ambrocio Wong Reason for Consult: Recurrent cellulitis EMERGENT Consult: No Notified: Yes Date Notified: 09/13/22 Time Notified: 08:50 Method of Notification: Text Reason For Visit: SEPSIS, CELLULITIS OF LEFT LEG Diagnosis Discharge Diagnosis (1) Severe sepsis: Status: Acute Code(s): A41.9 - Sepsis, unspecified organism; R65.20 - Severe sepsis without septic shock Plan Patient is a 81-year-old male admitted with left lower extremity cellulitis due to group C strep. Hospital stay complicated by development of multi-infarct CVA involving the right hemisphere 1. Severe sepsis secondary to left lower extremity cellulitis ? Secondary to group C strep. Patient managed with broad-spectrum antibiotic therapy with Zosyn. Zosyn has been switched to cefdinir ? 09/13/2022 consult was placed to infectious disease per family request 2. Multi-infarct CVA of right hemisphere ? Patient was foundund to have multiple infarcts in the right hemisphere: Multiple small acute infarct in the right MCA territory involving the right frontal cortex, right posterior parietal lobe, right temporal lobe, right basal ganglia. Additional old right basal ganglia lacunar infarct, chronic involutional white matter changes. MRA demonstrated developmentally artery great A1 segment with only faint flow signal which may be due to slow flow. Partial occlusion of small caliber right A1 segment is a consideration. MRA neck demonstrated abnormal appearance of flow within the right carotid bulb which in part may be accentuated by motion artifact and torturous vessels however findings suspicious of short segment right carotid bulb stenosis and recommended consider evaluation with either CTA or Doppler for verification. Carotid ultrasound ordered. Neurology evaluated, SHAINA ordered, and aspirin + Plavix while Coumadin is held was recommended. -09/12/2022; carotid ultrasound demonstrated irregular plaque noted in the proximal right internal carotid artery with greater than 70% stenosis and likely greater than 80% stenosis of the internal carotid artery. Patient was found to have less than 50% stenosis of the left internal carotid artery 3. Acute hypoxic respiratory failure ? Developed after patient was admitted and this was only transient for 2 days from 09/11/2022 to 09/12/2022 Patient was on on bipap/airvo ABG 09/07 ph 7.33 pco2 38.4 po2 105 on bipap peep 8 ABG 09/10 ph 7.44 pco2 32.9 po2 84 on 4L NC. ? 09/13/2022 patient has been weaned off high flow oxygen back on nasal cannula 4 L at rest 4. Paroxysmal A-fib with RVR ? Patient is on Coumadin and amiodarone. Coumadin has been held due to elevated INR 5. Mild thrombocytopenia ? Stable continue with monitoring 6. Acute kidney injury ? Superimposed on chronic kidney disease stage III ? Monitoring with daily BMPs nephrology on board 7. Class II obesity with BMI of 39 ? Weight loss advised 8. Acute on chronic congestive heart failure with preserved ejection fraction ? Echo obtained on 09/07/2022 demonstrated EF of 55%. In view of patient worsening edema patient diuretics reinitiated 9. Coronary artery disease ? With previous PCI in 2018 10. Diabetes mellitus type II -patient's oral hypoglycemics held. Placed on long acting insulin, Accu-Cheks a.c. and at bedtime and covered with sliding scale insulin 11. Chronic back pain ? With history of multiple lumbar compression fractures ? Patient pain meds held in view of delirium 12. DVT prophylaxis ? Patient is on Coumadin INR is therapeutic 13. Physical deconditioning - Requested for PT OT eval and outreach and education social worker to assist with discharge planning 14. Mild intermittent asthma ? DuoNebs as needed Time spent in the patient's overall evaluation,decision-making process, review of diagnostic data, adjustment of management, discussion with other providers, nursing nursing and ancillary staff involved in patient's care documentation, 38 Minutes Medications at Discharge Home Medications aspirin 81 mg chewable tablet 81 mg PO DAILY@0800 health maintenance 07/02/18 omeprazole 20 mg capsule,delayed release 20 mg PO DAILY gerd 07/02/18 atorvastatin 40 mg tablet 40 mg PO QHS #30 tabs 07/29/18 cetirizine 10 mg capsule 10 mg PO HS #30 caps 08/20/19 ferrous sulfate 325 mg (65 mg iron) tablet 325 mg PO BID 02/19/20 valsartan 80 mg tablet 80 mg PO DAILY 11/17/21 amiodarone 200 mg tablet 100 mg PO DAILY #15 tabs 01/09/22 amlodipine 10 mg tablet 10 mg PO DAILY 02/27/22 cholecalciferol (vitamin D3) 25 mcg (1,000 unit) tablet 25 mcg PO DAILY 02/27/22 prednisone 5 mg tablet 10 mg PO DAILY #100 tabs 03/06/22 tizanidine 4 mg capsule 4 mg PO Q8H PRN Pain 06/02/22 warfarin 2 mg tablet 2 mg PO SUTUWEFRSA BLOOD THINNER 09/07/22 acetaminophen 500 mg tablet 500 mg PO Q6H PRN Pain 09/10/22 empagliflozin 10 mg tablet (Jardiance) 10 mg PO DAILY Check with primary doctor #90 tabs 09/11/22 acetaminophen 325 mg tablet (Tylenol) 650 mg PO Q4H PRN PRN Pain 1-10 Or Fever #0 tabs 09/15/22 albuterol sulfate 2.5 mg/3 mL (0.083 %) solution for nebulization 2.5 mg (3 mL) inhalation Q4H PRN SOB/WHEEZING #0 mL 09/15/22 cephalexin 500 mg capsule 500 mg PO TID #15 caps 09/15/22 clopidogrel 75 mg tablet 75 mg PO DAILY #0 tabs 09/15/22 furosemide 40 mg tablet 40 mg PO DAILY #0 tabs 09/15/22 glucagon 1 mg solution for injection (Glucagon Emergency Kit) 1 mg IM X1 PRN Hypoglycemia #0 ea 09/15/22 insulin lispro 100 unit/mL subcutaneous pen (Humalog KwikPen (U-100) Insulin) See Protocol subcut ACHS #0 mL 09/15/22 levothyroxine 50 mcg tablet 50 mcg PO 0600 #0 tabs 09/15/22 metoprolol tartrate 100 mg tablet 100 mg PO BID #0 tabs 09/15/22 nutrition tx glu intol,lac-free,soy-fiber 0.06 gram-1.2 kcal/mL liquid (Glucerna 1.2 Gabriel) 120 ml PO TIDCM #0 mL 09/15/22 potassium chloride 20 mEq tablet,extended release(part/cryst) (Klor-Con M) 20 meq PO BIDCM #0 tabs 09/15/22 Hospital Course Summary of Care Provided Minutes Spent on Discharge: 38 Physical Exam Narrative GENERAL: cooperative HEENT: Atraumatic; normocephalic EYES; Anicteric, Normal Conjunctiva NECK; supple, normal thyroid, RESPIRATORY: Diminished to auscultation CARDIOVASCULAR: Regular S1 S2, GI: soft, normoactive bowel sounds, : No Renal angle tenderness; EXTREMITIES: Edema involving both upper and lower extremities MUSCULOSKELETAL: no muscle wasting NEURO: Awake; no lateralizing signs. SKIN: Area of induration on the medial aspect of the left thigh PSYCH; Flat affect Weight / BMI Weight Weight: 105.3 kg Body Mass Index (BMI) 39.1 ABG / Lab / Microbiology Data Result Diagrams: 09/15/22 07:52 09/14/22 06:13 Laboratory: Laboratory Results - last 24 hr 09/14/22 12:00: POC Glucose 299 H 09/14/22 16:30: POC Glucose 282 H 09/14/22 23:11: POC Glucose 279 H 09/15/22 06:59: POC Glucose 167 H 09/15/22 07:52: WBC 6.9, RBC 4.33 L, Hgb 12.8 L, Hct 41.7, MCV 96.3 H, MCH 29.6, MCHC 30.7 L, RDW Std Deviation 51.8 H, RDW Coeff of Alley 14.4, Plt Count 203, MPV 9.8, Immature Gran % (Auto) 1.900 H, Neut % (Auto) 81.0 H, Lymph % (Auto) 11.7 L, [place] % (Auto) 3.9, Eos % (Auto) 1.2, Baso % (Auto) 0.3, Absolute Neuts (auto) 5.6, Absolute Lymphs (auto) 0.81 L, Nucleated RBC % 0.3 Microbiology: Microbiology 09/07/22 10:00 Blood Culture (Wb) - Anticubital Left Blood Culture - Final No growth in 5 days. 09/07/22 09:55 Blood Culture (Wb) - Anticubital Right Blood Culture - Final No growth in 5 days. 09/07/22 16:10 Wound Drainage - Leg Anaerobic Culture - Final No anaerobic bacteria isolated. 09/11/22 06:45 Nasal Secretion SARS-CoV-2 Antigen (Rapid) - Final 09/07/22 11:10 Urine, Clean Catch Urine Culture - Final Staphylococcus aureus 09/07/22 16:10 Wound - Leg, Left Gram Stain - Final 09/07/22 16:10 Wound - Leg, Left Wound Culture - Final Streptococcus group C D/C Instructions Discharge Diet: 1800 Calorie Control Diet, 8 Cup Fluid Restriction and 2000 mg Sodium Diet Discharge Activity: Return to Normal Activity Call your doctor if you observe: Fever of 101 or Higher, Shortness of breath, Fainting spells and Chest pain Meaningful Use Info Meaningful Use Diagnoses (Choose all that apply): CHF and Ischemic CVA CHF AMBER/ARB ordered at discharge?: Yes Documented LVEF (%): 65 CVA Therapy Assessed for PT,OT and/or ST?: Yes Ischemic Stroke Antithrombotic order at d/c?: Yes Dx of Atrial fib/flutter?: Yes Anticoagulant at discharge?: Yes Statins at discharge?: Yes Primary Dx Acute Ischemic CVA?: No IV tPA ordered during stay?: No Reason IV t-PA not ordered: Treatment not Indicated Discharge Plan Admission Admit Date/Time: 09/07/22 13:07 Attending Provider: Mateo Anderson Primary Care Provider: Eric Newton Consulting Providers: Sue Montiel ; Cheng Mccoy ; Floyd Cruz ; Luis Angel Stewart ; Dejuan Harvey ; Siomara Helm NP ; Rach Plasencia ; Juhi Quinn ; Ambrocio Wong Discharge Orders/Prescriptions Prescriptions: New furosemide 40 mg Tablet 40 mg PO DAILY Qty: 0 0RF acetaminophen [Tylenol] 325 mg Tablet 650 mg PO Q4H PRN PRN (Reason: Pain 1-10 Or Fever) Qty: 0 0RF albuterol sulfate 2.5 mg /3 mL (0.083 %) Solution For Nebulization 2.5 mg inhalation Q4H PRN (Reason: SOB/WHEEZING) Qty: 0 0RF metoprolol tartrate 100 mg Tablet 100 mg PO BID Qty: 0 0RF clopidogrel 75 mg Tablet 75 mg PO DAILY Qty: 0 0RF potassium chloride [Klor-Con M20] 20 mEq Tablet,Er Particles/Crystals 20 meq PO BIDCM Qty: 0 0RF levothyroxine 50 mcg Tablet 50 mcg PO 0600 Qty: 0 0RF Glucagon Emergency Kit (human) 1 mg Recon Soln 1 mg IM X1 PRN (Reason: Hypoglycemia) Qty: 0 0RF insulin lispro [Humalog KwikPen Insulin] 100 unit/mL Insulin Pen See Protocol subcut ACHS Qty: 0 0RF Protocol: 1. Sliding Scale Insulin Low Dosing Condition: 150-224 mg/dl = 1 unit Condition: 225-299 mg/dl = 2 units Condition: 300-374 mg/dl = 3 units Condition: 375-499 mg/dl = 4 units Condition: Greater than 449 call physician Protocol Text: - Use for Total Daily Dose of Insulin 15-27 units - Thin, elderly, renal patients LOW DOSING ALGORITHM Glucerna 1.2 Gabriel 0.06-1.2 gram-kcal/mL Liquid 120 ml PO TIDCM Qty: 0 0RF cephalexin 500 mg capsule 500 mg PO TID Qty: 15 0RF Continued atorvastatin 40 mg tablet 40 mg PO QHS Qty: 30 6RF cetirizine 10 mg capsule 10 mg PO HS Qty: 30 3RF valsartan 80 mg tablet 80 mg PO DAILY amlodipine 10 mg tablet 10 mg PO DAILY cholecalciferol (vitamin D3) 25 mcg (1,000 unit) tablet 25 mcg PO DAILY tizanidine 4 mg capsule 4 mg PO Q8H PRN (Reason: Pain) omeprazole 20 MG capsule 20 mg PO DAILY aspirin 81 MG tablet,chewable 81 mg PO DAILY@0800 warfarin 2 mg Tablet 2 mg PO SUTUWEFRSA acetaminophen 500 mg Tablet 500 mg PO Q6H PRN (Reason: Pain) ferrous sulfate 325 mg (65 mg iron) tablet 325 mg PO BID amiodarone 200 mg tablet 100 mg PO DAILY Qty: 15 11RF prednisone 5 mg tablet 10 mg PO DAILY Qty: 100 3RF Jardiance 10 mg tablet 10 mg PO DAILY Qty: 90 3RF Discontinued furosemide 40 mg tablet 20 mg PO DAILY levothyroxine 50 mcg Tablet 50 mcg PO DAILY potassium chloride 20 mEq Tablet Extended Release 20 meq PO DAILY lorazepam 0.5 mg Tablet 0.5 mg PO DAILY PRN (Reason: Anxiety) metoprolol tartrate 50 mg tablet 50 mg PO BID Qty: 180 3RF Referrals / Follow Up: Omero Be MD [Med Staff - Active Staff] - Within 2 Weeks (For carotid artery stenosis) Eric Newton MD [Primary Care Provider] - Within 2 Weeks Disposition Disposition (needs filled in before D/C Order can be placed): Half-Way Facility Charges/Coding Visit Charges Inpatient E&M: 19478 Disch Hosp >30min
[2022-09-15 09:34] LABS: Anion Gap 9 (5-15); BUN 42 mg/dL (7-18); BUN/Creat Ratio 26.9 RATIO (10-20); Calcium,Total 8.4 mg/dL (8.5-10.1); Chloride 101 mmol/L (98-107); Creatinine, Serum 1.56 mg/dL (0.70-1.30); EST Glomerular Filtration Rate 46 mL/min (>60); Est Glom Filt Rate - Afr Amer 55 mL/min (>60); Glucose 206 mg/dL (74-106); Magnesium 1.9 mg/dL (1.6-2.6); Phosphorus 2.4 mg/dL (2.5-4.9); Potassium 3.3 mmol/L (3.5-5.1); Sodium Level 141 mmol/L (136-145)
--- NOTE | 2022-09-15 09:45 | NURSING ---
called report to tcu
[2022-09-15] MEDS: Potassium Chloride Oral Tablet 20 MEQ 40 MEQ PO (10:34)
[2022-09-15] MEDS: Albuterol 2.5 MG/3 ML VIAL.NEB. INHALATION (10:50)
[2022-09-15 11:41] LABS: Bedside Glucose 207 mg/dL (74-106)
[2022-09-15] MEDS: 0.9% Saline Lock 10 ML Syringe IV (13:39)
[2022-09-16 07:30] LABS: Absolute Neutrophil Count 7.4 X10^3/uL (2.0-7.7); Basophil# 0.03 X10^3/uL; Basophil% 0.3 % (0-1); Eosinophil# 0.08 X10^3/uL; Eosinophils% 0.9 % (0-5); Hemoglobin 12.9 g/dL (13.0-16.5); Lymphocyte % 10.1 % (19-41); Mean Corpuscular Hgb 29.1 pg (27.0-32.0); Mean Corpuscular Volume 96.8 fL (80-94); Mean Platelet Vol. 9.7 fl (6.2-12.0); Monocyte% 4.5 % (0-10); NRBC Flagged by Analyzer 0 % (0-5); Neutrophil # 7.39 X10^3/uL (2.7-7.7); Neutrophil % 83.1 % (47-70); Platelet Count 207 K/mm3 (150-450); RBC Distribution Width CV 14.5 % (11.6-14.6); RBC Distribution Width SD 51.8 fl (35.1-43.9); Red Blood Count 4.44 M/mm3 (4.6-6.2); White Blood Count 8.9 K/mm3 (4.4-11.0)
[2022-09-16 07:50] LABS: Anion Gap 4 (5-15); BUN 31 mg/dL (7-18); BUN/Creat Ratio 23.1 RATIO (10-20); Calcium,Total 8.6 mg/dL (8.5-10.1); Chloride 102 mmol/L (98-107); Creatinine, Serum 1.34 mg/dL (0.70-1.30); EST Glomerular Filtration Rate 55 mL/min (>60); Est Glom Filt Rate - Afr Amer 66 mL/min (>60); Estimated Creatinine Clearance 38.88 ml/min; Glucose 164 mg/dL (74-106); Potassium 4.1 mmol/L (3.5-5.1); Sodium Level 141 mmol/L (136-145)
== END 2022-09-15 02:51 | disposition skilled nursing facility (03) | DRG 871 ==
LOC: ED 12:09 → ICU 13:22 → PCU 09-11 07:21 → ICU 09-12 10:46 → PCU 09-12 10:46
PROVIDERS: Internal Medicine Critical Care Medicine; Admitting Provider Internal Medicine; Emergency Provider Emergency Medicine; PCP Family Medicine; Visit Provider Internal Medicine
DX: A40.8 Other streptococcal sepsis (principal); G93.41 Metabolic encephalopathy; J96.01 Acute respiratory failure with hypoxia; I63.411 Cerebral infarction due to embolism of right middle cerebral artery; I50.33 Acute on chronic diastolic (congestive) heart failure; E27.40 Unspecified adrenocortical insufficiency; I13.0 Hypertensive heart and chronic kidney disease with heart failure and stage 1 through stage 4 chronic kidney disease, or unspecified chronic kidney disease; N17.9 Acute kidney failure, unspecified; E87.4 Mixed disorder of acid-base balance; E87.20 Acidosis, unspecified; L03.116 Cellulitis of left lower limb; R65.20 Severe sepsis without septic shock; D69.6 Thrombocytopenia, unspecified; J44.9 Chronic obstructive pulmonary disease, unspecified; E11.65 Type 2 diabetes mellitus with hyperglycemia; N18.32 Chronic kidney disease, stage 3b; I48.0 Paroxysmal atrial fibrillation; E11.22 Type 2 diabetes mellitus with diabetic chronic kidney disease; E11.21 Type 2 diabetes mellitus with diabetic nephropathy; Z79.4 Long term (current) use of insulin; K21.9 Gastro-esophageal reflux disease without esophagitis; I25.10 Atherosclerotic heart disease of native coronary artery without angina pectoris; G47.33 Obstructive sleep apnea (adult) (pediatric); E78.5 Hyperlipidemia, unspecified; E87.6 Hypokalemia; J45.20 Mild intermittent asthma, uncomplicated; I65.23 Occlusion and stenosis of bilateral carotid arteries; G89.29 Other chronic pain; R53.81 Other malaise; E66.9 Obesity, unspecified; R29.705 NIHSS score 5; Z95.5 Presence of coronary angioplasty implant and graft; Z68.39 Body mass index [BMI] 39.0-39.9, adult; Z79.01 Long term (current) use of anticoagulants; Z79.02 Long term (current) use of antithrombotics/antiplatelets; Z79.52 Long term (current) use of systemic steroids; Z79.82 Long term (current) use of aspirin; Z79.84 Long term (current) use of oral hypoglycemic drugs; Z79.899 Other long term (current) drug therapy; Z87.311 Personal history of (healed) other pathological fracture
CPT/HCPCS: 36415; 36600; 70450; 70544; 70549; 70551; 71045; 73701; 74230; 80048; 80053; 80061; 80202; 81001; 82803; 82962; 83036; 83605; 83735; 83880; 84100; 84484; 85025; 85610; 85730; 87040; 87070; 87075; 87077; 87086; 87088; 87186; 87205; 87426; 87641; 92507; 92526; 92610; 92611; 93005; 93306; 93312; 93320; 93325; 93880; 93971; 94002; 94003; 94640; 94660; 94668; 94762; 96125; 97110; 97116; 97163; 97166; 97530; 97535; 97802; 99252; 99285; A9575; J7030; J7040; Q9957; Q9967; A4216; C8929; G0463; J1940

== ENCOUNTER 2022-09-15 15:00 | Inpatient (IN) | payer SELFPAY, OTHER ==
[2022-09-15 15:15] VITALS: BP 154/72; PULSE 66; RESP 22; TEMP 36.3; O2SAT 92; BMI 38.3
[2022-09-15 16:40] LABS: Bedside Glucose 193 mg/dL (74-106)
[2022-09-15 18:13] VITALS: PULSE 69
[2022-09-15] MEDS: Metoprolol Tartrate 100 MG Tablet PO (18:13)
[2022-09-15] MEDS: Cephalexin 500 MG Capsule PO (18:14)
[2022-09-15] MEDS: Potassium Chloride Oral Tablet 20 MEQ PO (18:14)
[2022-09-15] MEDS: Jantoven 2 MG Tablet PO (18:14)
[2022-09-15] MEDS: Ferrous Sulfate 325 MG Tablet PO (18:14)
[2022-09-15] MEDS: Glucerna Shake 120 ML LIQUID PO (18:15)
[2022-09-15] MEDS: Insulin Lispro 100 UNIT/ML INSULN.PEN SC (18:16)
--- NOTE | 2022-09-15 19:28 | HP.PCM_ITS ---
HPI - General General Date of Admission: 09/15/22 Date of Service: 09/15/22 Chief Complaint: Here for rehabilitation. HPI Narrative 09/07/2022 JOSE A STEIN, is a 81 Male who presents to [facility] Emergency Department with shortness of breath. 09/07/2022 EKG normal sinus rhythm, low voltage QRS. Change in mental status, on antibiotics for cellulitis left lower extremity, unresponsive, pulsox 70% on room air. Non-rebreather 91%, blood sugar 140's, left sided weakness. Lumbar compression fracture x 5, Dr. Fabian planned kyphoplasty 09/15/2022. BiPAP applied, normal saline 1 liter given for low blood pressure, Narcan 2mg given because patient on opioid. Zosyn, Vancomycin given for left lower extremity cellulitis. 09/07/2022 Admit to [facility] ICU. Vancomycin, Zosyn, Clindamycin for sepsis/left lower extremity cellulitis. CT head negative, change in mental status, evaluate for stroke. Consult Renal for acute kidney injury on chronic kidney disease stage 3b. 09/07/2022 Echo Normal LV size. LVSF normal. EF 65%. 09/08/2022 More awake, more alert. Vancomycin, Zosyn, Clindamycin, CT lower lower extremity negative for abscess. Stress dose steroids, patient chronically on prednisone 10mg daily for asthma. Creatminine improved to 2.2. 09/09/2022 SHAINA no thrombus left atrial appendage. 09/09/2022 Better. Left leg wound culture growing Group C strep, continue Vancomycin, Zosyn, Stop Clindamycin. MRI shows stroke, hold coumadin, recommend aspirin, plavix, then coumadin, plavix, stop aspirin. 09/10/2022 Slight confusion overnight, generalized weakness. PT/OT/ST for stroke. Increase beta monica for atrial fibrillation with rapid ventricular response. Wean stress dose steroids for asthma. Creatinine worse today. 09/11/2022 Zosyn to Cefdinir for left lower extremity cellulitis. Aspirin, Plavix, hold coumadin for stroke. 09/12/2022 AIRVO. Resume diuretics for heart failure with preserved ejection failure. 09/13/2022 Consult Infectious Disease per family request. Oxygen 4 liters per nasal cannula. 09/14/2022 PT/OT for SNF. 09/15/2022 Admit to TCU with debility, here for rehabilitation, strengthening, prior to discharge home with family. FOR[facility]LY [facility], [facility] Medical History Atherosclerotic heart disease of [place] coronary artery without angina pectoris Atrial fibrillation and flutter Cardiomyopathy CHF (congestive heart failure) Encounter for routine circumcision Essential hypertension GERD (gastroesophageal reflux disease) HLD (hyperlipidemia) Hyperglycemia snf (current) use of anticoagulants Long-term use of high-risk medication Lung nodule Paroxysmal A-fib Presence of stent in coronary artery (~07/04/18) Renal insufficiency Restrictive airway disease Home Medications aspirin 81 mg chewable tablet 81 mg PO DAILY@0800 health maintenance 07/02/18 [History Last Taken 09/07/22] omeprazole 20 mg capsule,delayed release 20 mg PO DAILY gerd 07/02/18 [History Last Taken 09/06/22] ferrous sulfate 325 mg (65 mg iron) tablet 325 mg PO BID anemia 02/19/20 [History Last Taken 09/06/22] valsartan 80 mg tablet 80 mg PO DAILY hypertension 11/17/21 [History Last Taken 09/06/22] amlodipine 10 mg tablet 10 mg PO DAILY heart 02/27/22 [History Last Taken 09/06/22] cholecalciferol (vitamin D3) 25 mcg (1,000 unit) tablet 25 mcg PO DAILY health maintenence 02/27/22 [History Last Taken 09/05/22] tizanidine 4 mg capsule 4 mg PO Q8H PRN Pain 06/02/22 [History Last Taken 09/06/22] warfarin 2 mg tablet 2 mg PO SUTUWEFRSA BLOOD THINNER 09/07/22 [History Last Taken 09/06/22] acetaminophen 500 mg tablet 500 mg PO Q6H PRN Pain 09/10/22 [History Last Taken Unknown] acetaminophen 325 mg tablet (Tylenol) 650 mg PO Q4H PRN PRN Pain 1-10 Or Fever #0 tabs 09/15/22 [Rx Last Taken Unknown] albuterol sulfate 2.5 mg/3 mL (0.083 %) solution for nebulization 2.5 mg (3 mL) inhalation Q4H PRN SOB/WHEEZING #0 mL 09/15/22 [Rx Last Taken Unknown] amiodarone 200 mg tablet 100 mg PO DAILY heart 09/15/22 [History Last Taken Unknown] atorvastatin 40 mg tablet 40 mg PO QHS cholesterol 09/15/22 [History Last Taken Unknown] cephalexin 500 mg capsule 500 mg PO TID cellulitis 09/15/22 [History Last Taken Unknown] cetirizine 10 mg capsule 10 mg PO HS allergies 09/15/22 [History Last Taken Unknown] clopidogrel 75 mg tablet 75 mg PO DAILY blood thinning 09/15/22 [History Last Taken Unknown] empagliflozin 10 mg tablet (Jardiance) 10 mg PO DAILY DM 09/15/22 [History Last Taken Unknown] furosemide 40 mg tablet 40 mg PO DAILY EDEMA 09/15/22 [History Last Taken Unknown] glucagon 1 mg solution for injection (Glucagon Emergency Kit) 1 mg IM X1 PRN Hypoglycemia #0 ea 09/15/22 [Rx Last Taken Unknown] insulin lispro 100 unit/mL subcutaneous pen (Humalog KwikPen (U-100) Insulin) See Protocol subcut ACHS DM 09/15/22 [History Last Taken Unknown] levothyroxine 50 mcg tablet 50 mcg PO 0600 hypothyroid 09/15/22 [History Last Taken Unknown] metoprolol tartrate 100 mg tablet 100 mg PO BID Blood pressure 09/15/22 [History Last Taken Unknown] nutrition tx glu intol,lac-free,soy-fiber 0.06 gram-1.2 kcal/mL liquid (Glucerna 1.2 Gabriel) 120 ml PO TIDCM health maintenance 09/15/22 [History Last Taken Unknown] potassium chloride 20 mEq tablet,extended release(part/cryst) (Klor-Con M) 20 meq PO BIDCM hypokalemia 09/15/22 [History Last Taken Unknown] prednisone 5 mg tablet 10 mg PO DAILY steroid 09/15/22 [History Last Taken Unknown] Allergy/AdvReac Type Severity Reaction Status Date / Time No Known Allergies Allergy Verified 09/06/22 19:59 Family History Mother Hypertension Heart disease Surgical History History of hernia repair History of hip replacement History of partial knee replacement Presence of coronary angioplasty implant and graft (~07/04/18) Social History (Updated 09/15/22 @ 19:[address] Mickey Torres MD) household members: spouse Smoking Status: Never smoker alcohol intake: never substance use type: does not use ROS Constitutional Constitutional: Reports weakness; Denies chills, fever(s) or weight gain ENT HEENT: Denies headache(s), nasal congestion or nasal discharge Cardiovascular Cardiovascular: Denies chest pain or palpitations Respiratory/Chest Respiratory/Chest: Reports shortness of breath with exertion; Denies cough or excessive phlegm production Gastrointestinal Gastrointestinal: Denies abdominal pain, nausea or vomiting Genitourinary Genitourinary: Denies dysuria Musculoskeletal Musculoskeletal: Denies joint pain or joint swelling Integumentary Integumentary: Denies rash or wounds Neurologic Neurologic: Denies focal weakness, numbness or tingling Psychiatric Psychiatric: Denies anxiety, auditory hallucinations, depression, homicidal ideation or suicidal ideation Vital Signs Vital Signs Vital Signs: 09/15/22 15:15 09/15/22 18:13 Temperature 97.3 F L Temperature Source Temporal Pulse Rate 66 69 Respiratory Rate 22 H Blood Pressure 154/72 H Blood Pressure Mean 99 Blood Pressure Source Monitor Blood Pressure Position Semi-Fowlers Blood Pressure Location Left Arm Pulse Ox 92 Oxygen Delivery Method Nasal Cannula Oxygen Flow Rate (L/min) 4 Weight Weight: 106.169 kg Body Mass Index (BMI) 38.3 Physical Exam Const alert General Appearance: cooperative HEENT normocephalic Eyes PERRL and EOMs intact bilaterally Neck supple, no JVD and no carotid bruits Resp normal respiratory effort, normal air movement and clear to auscultation bilaterally Cardio regular rate and regular rhythm GI normal to inspection, nondistended, normoactive bowel sounds, non-tender and non-distended Extremity normal capillary refill Extremity Narrative: Left distal thigh petechial rash, erythema. General Extremity: edema bilateral (1+) Skin no rashes or lesions noted General Skin Exam: no breakdown Psych affect normal Appearance: appropriate Results Lab / Micro Data Labs: Laboratory Results - last 24 hr 09/15/22 16:21: POC Glucose 193 H Assessment & Plan Assessment/Plan (1) Debility: (2) Acute respiratory failure with hypoxia: (3) Acute encephalopathy: (4) Sepsis: (5) Cellulitis of left lower extremity: (6) Acute kidney injury: (7) Chronic kidney disease, stage 3b: (8) Stroke: (9) Sleep apnea: (10) Hypertension: (11) GERD (gastroesophageal reflux disease): (12) Hyperlipidemia: (13) Anxiety: (14) Atrial fibrillation: (15) Hypothyroidism: (16) Iron deficiency anemia: (17) Muscle spasm: (18) Coronary artery disease: PLAN: Plan 81 year old male with below past medical history hospitalized for acute delirium secondary to sepsis from left lower extremity cellulitis, complicated by acute respiratory failure with hypoxia, acute kidney injury, right sided stroke, admitted to TCU with debility, here for rehabilitation, strengthening, prior to discharge home with . * Debility - PT/OT. * Dysphagia - ST. * Pain - Tylenol 1000mg q6h prn pain (1-10). * Bowel - senna/colace 1 tablet bid, Dulcolax 10mg pr x 1 prn, MOM 30ml po x1 prn. * Adult immunization - Administer pneumonia vaccine, covid19 vaccine, flu vaccine as appropriate. * DVT prophylaxis - Already on warfarin. * Asthma - Albuterol 2.5mg q4h prn, Prednisone 10mg daily. * Atrial fibrillation - Metoprolol 100mg bid, Amiodarone 100mg daily, warfarin 2mg daily. * Hypertension - Metoprolol 100mg bid, Amlodipine 10mg daily. * Hyperlipidemia - Atorvastatin 40mg qhs. * Left lower extremity cellulitis - Keflex 500mg bid thru 09/19/2022. * Stroke - Plavix 75mg daily, warfarin 2mg daily. * Diabetes Mellitus II - Jardiance 10mg daily, Glucagon 1mg im x 1 prn hypoglycemia. * Iron deficiency anemia - Ferrous sulfate 325mg bid. * Chronic diastolic heart failure - Metoprolol 100mg bid, Losartan 25mg daily, Furosemide 40mg daily. * Nutrition - Glucerna Shake 120ml tid. * Hypothyroidism - Levothyroxine 50mcg daily. * Allergic rhinitis - Loratadine 10mg qhs. * GERD - Pantoprazole 20mg daily. * Hypokalemia - KCL 20meq bidcm. * Muscle spasm - Tizanidine 4mg q8h prn. * Vitamin D deficiency - D3 25mcg daily.
--- NOTE | 2022-09-15 20:05 | NURSING ---
Patient asks if son can spend night tonight on his first night. This nurse informs that visiting hours do end at 1800 but can ask if exception can be made. Patient reports he understands but would like his son to be there to help him during the night and that sons have also been a large help in helping him move around. Nursing spooling supervisor contacted and it is okay for son to stay for patient's first night. Family made aware.
[2022-09-15 21:35] LABS: Bedside Glucose 219 mg/dL (74-106)
[2022-09-15] MEDS: Atorvastatin Calcium 40 MG Tablet PO (21:40)
[2022-09-15] MEDS: Loratadine 10 MG Tablet PO (21:41)
--- NOTE | 2022-09-15 22:00 | RAD_ITS ---
EXAM: XR ABDOMEN, 1 VIEW CLINICAL INDICATION: Distended abdomen. TECHNIQUE: Frontal supine view of the abdomen/pelvis. This report was created using [employer] report generation technology. COMPARISON: Chest radiographs of 09/11/2022 and 09/07/2022. Lumbar spine radiographs of 08/10/2022. FINDINGS: LOWER THORAX: Slight blunting of the right lateral costophrenic angle by pleural thickening. GASTROINTESTINAL TRACT: Retained contrast noted within the colon, most which lies within the distal sigmoid colon and rectum. Scattered colonic diverticula are noted. The colon and stomach are not distended. No distended small bowel loops are identified. Endorectal electrode is present, most likely a temperature probe. ORGANS: Unremarkable as visualized. No organomegaly. BONES/JOINTS: Total right hip arthroplasty is in place. Extensive degenerative changes affect the lower thoracic and lumbar spine with numerous old lumbar compression fractures. SOFT TISSUES: No acute pathology. VASCULATURE: Atherosclerotic vascular calcification is present. OTHER FINDINGS: Chronic benign 2.5 cm ringlike calcification projected over the left upper abdominal quadrant. RAD/Abdomen Single View IMPRESSION: Normal bowel gas pattern. No findings of small bowel obstruction. Electronically Signed: Paulino Pearson MD at 22:22 EST ,
[2022-09-15 22:15] VITALS: PULSE 64; O2SAT 94
[2022-09-15 23:00] VITALS: PULSE 69; RESP 12; RESP 22; O2SAT 94
[2022-09-16] VITALS (9 sets, daily range): BP systolic 137–146; BP diastolic 62–67; PULSE 64–79; RESP 12–26; TEMP 36.3; O2SAT 93–97
[2022-09-16 06:26] LABS: Bedside Glucose 154 mg/dL (74-106)
[2022-09-16] MEDS: Empagliflozin 10 MG Tablet PO (06:45)
[2022-09-16] MEDS: Losartan Potassium 25 MG Tablet PO (06:45)
[2022-09-16] MEDS: Metoprolol Tartrate 100 MG Tablet PO ×2 (06:46→18:25)
[2022-09-16] MEDS: Furosemide 40 MG Tablet PO ×2 (06:46→15:57)
[2022-09-16] MEDS: Cephalexin 500 MG Capsule PO ×2 (06:46→18:24)
[2022-09-16] MEDS: Clopidogrel Bisulfate 75 MG Tablet PO (06:47)
[2022-09-16] MEDS: amLODIPine 10 MG Tablet PO (06:47)
[2022-09-16] MEDS: Pantoprazole Sodium 20 MG Tablet PO (06:47)
[2022-09-16] MEDS: Levothyroxine 50 MCG Tablet PO (06:48)
[2022-09-16] MEDS: Senna/Docusate Sodium 1 Tablet PO (06:48)
[2022-09-16] MEDS: Cholecalciferol (VIT D3) 25 MCG TABLET (1,000 UNITS) PO (06:49)
[2022-09-16] MEDS: Amiodarone 200 MG Tablet 100 MG PO (09:12)
[2022-09-16] MEDS: Potassium Chloride Oral Tablet 20 MEQ PO ×2 (09:13→18:24)
[2022-09-16] MEDS: predniSONE 10 MG Tablet PO (09:14)
[2022-09-16] MEDS: Nystatin Ointment 1 APPLIC TOPICAL ×2 (09:15→18:26)
[2022-09-16] MEDS: Tuberculin,Purif.prot.deriv. 50 TU/ML Vial 0.1 ML ID (10:27)
[2022-09-16] MEDS: Glucerna Shake 120 ML LIQUID PO (10:27)
--- NOTE | 2022-09-16 11:53 | NURSING ---
Pt's BS 228 Dr. Torres updated and N.O. for Humalog 5 units TID with meals. Order read back.
[2022-09-16 11:55] LABS: Bedside Glucose 228 mg/dL (74-106)
[2022-09-16] MEDS: Ferrous Sulfate 325 MG Tablet PO ×2 (12:20→18:23)
[2022-09-16] MEDS: Insulin Lispro 100 UNIT/ML INSULN.PEN SC ×2 (12:20→18:23)
[2022-09-16] MEDS: Albuterol 2.5 MG/3 ML VIAL.NEB. INHALATION ×2 (14:10→18:47)
--- NOTE | 2022-09-16 15:10 | NURSING ---
Pt c/o of increased wheezing breathing treatment completed and audible wheezing heard throughout post breathing treatment. Pt's weight on 10/11/22 229lbs on pt 234lbs. Dr. Torres updated N.O. to increase Lasix to 40mg BID give dose now and repeat labs tomorrow. Orders read back.
[2022-09-16 17:10] LABS: Bedside Glucose 220 mg/dL (74-106)
[2022-09-16] MEDS: Jantoven 2 MG Tablet PO (18:24)
[2022-09-16] MEDS: Loratadine 10 MG Tablet PO (21:25)
[2022-09-16] MEDS: Atorvastatin Calcium 40 MG Tablet PO (21:25)
[2022-09-16 22:36] LABS: Bedside Glucose 242 mg/dL (74-106)
[2022-09-17] VITALS (7 sets, daily range): BP systolic 108–139; BP diastolic 65–75; PULSE 60–79; RESP 12–21; TEMP 36.2; O2SAT 92–96
[2022-09-17 05:00] LABS: Anion Gap 4 (5-15); BUN 35 mg/dL (7-18); BUN/Creat Ratio 26.3 RATIO (10-20); Calcium,Total 8.3 mg/dL (8.5-10.1); Chloride 102 mmol/L (98-107); Creatinine, Serum 1.33 mg/dL (0.70-1.30); EST Glomerular Filtration Rate 55 mL/min (>60); Est Glom Filt Rate - Afr Amer 67 mL/min (>60); Estimated Creatinine Clearance 39.18 ml/min; Glucose 165 mg/dL (74-106); Potassium 4.3 mmol/L (3.5-5.1); Sodium Level 142 mmol/L (136-145)
[2022-09-17] MEDS: Levothyroxine 50 MCG Tablet PO (05:41)
[2022-09-17] MEDS: Pantoprazole Sodium 20 MG Tablet PO (05:41)
[2022-09-17] MEDS: Senna/Docusate Sodium 1 Tablet PO (05:41)
[2022-09-17] MEDS: Clopidogrel Bisulfate 75 MG Tablet PO (05:41)
[2022-09-17] MEDS: Cholecalciferol (VIT D3) 25 MCG TABLET (1,000 UNITS) PO (05:41)
[2022-09-17] MEDS: Furosemide 40 MG Tablet PO ×2 (05:42→14:37)
[2022-09-17] MEDS: amLODIPine 10 MG Tablet PO (05:42)
[2022-09-17] MEDS: Metoprolol Tartrate 100 MG Tablet PO (05:42)
[2022-09-17] MEDS: Cephalexin 500 MG Capsule PO ×3 (05:43→21:39)
[2022-09-17] MEDS: Empagliflozin 10 MG Tablet PO (05:43)
[2022-09-17] MEDS: Losartan Potassium 25 MG Tablet PO (05:43)
[2022-09-17] MEDS: Nystatin Ointment 1 APPLIC TOPICAL ×2 (05:44→17:41)
[2022-09-17 06:26] LABS: Bedside Glucose 147 mg/dL (74-106)
[2022-09-17] MEDS: Albuterol 2.5 MG/3 ML VIAL.NEB. INHALATION (07:50)
[2022-09-17] MEDS: Amiodarone 200 MG Tablet 100 MG PO (08:40)
[2022-09-17] MEDS: Insulin Lispro 100 UNIT/ML INSULN.PEN SC ×3 (08:40→17:37)
[2022-09-17] MEDS: Glucerna Shake 120 ML LIQUID PO (08:41)
[2022-09-17] MEDS: predniSONE 10 MG Tablet PO (08:41)
[2022-09-17] MEDS: Potassium Chloride Oral Tablet 20 MEQ PO ×2 (08:41→17:40)
[2022-09-17 11:11] LABS: Bedside Glucose 215 mg/dL (74-106)
[2022-09-17] MEDS: Ferrous Sulfate 325 MG Tablet PO ×2 (12:04→17:38)
--- NOTE | 2022-09-17 13:48 | NURSING ---
Updated Dr jade that heart rate dropping into the 40s overnight while doing overnight pulse ox test. Verbal order to decrease lopressor to 75 BID. Also reported that patient has been needing breathing treatments routinely and family requesting ID consult as he's being treated for cellulitis in his legs. Verbal order to change nebs to q4 while awake and consult ID.
[2022-09-17 16:36] LABS: Bedside Glucose 331 mg/dL (74-106)
[2022-09-17] MEDS: Jantoven 2 MG Tablet PO (17:39)
[2022-09-17] MEDS: Metoprolol Tartrate 50 MG Tablet 75 MG PO (17:45)
[2022-09-17] MEDS: Insulin Glargine-YFGN 100 UNIT/ML Pen 15 UNIT SC (21:39)
[2022-09-17] MEDS: Loratadine 10 MG Tablet PO (21:39)
[2022-09-17] MEDS: Atorvastatin Calcium 40 MG Tablet PO (21:39)
[2022-09-17 21:51] LABS: Bedside Glucose 237 mg/dL (74-106)
[2022-09-18] VITALS (12 sets, daily range): BP systolic 132–142; BP diastolic 65–75; PULSE 66–80; RESP 12–20; TEMP 36.3; O2SAT 92–95
--- NOTE | 2022-09-18 02:53 | NURSING ---
HR in the 60s at this time per overnight oximetry monitor while hospital BiPAP in use. Will continue to monitor.
[2022-09-18] MEDS: 0.9% Saline Lock 10 ML Syringe IV (06:05)
[2022-09-18] MEDS: Cephalexin 500 MG Capsule PO ×3 (06:05→21:31)
[2022-09-18] MEDS: Metoprolol Tartrate 50 MG Tablet 75 MG PO ×2 (06:06→17:14)
[2022-09-18] MEDS: amLODIPine 10 MG Tablet PO (06:07)
[2022-09-18] MEDS: Pantoprazole Sodium 20 MG Tablet PO (06:07)
[2022-09-18] MEDS: Losartan Potassium 25 MG Tablet PO (06:07)
[2022-09-18] MEDS: Cholecalciferol (VIT D3) 25 MCG TABLET (1,000 UNITS) PO (06:07)
[2022-09-18] MEDS: Clopidogrel Bisulfate 75 MG Tablet PO (06:07)
[2022-09-18] MEDS: Levothyroxine 50 MCG Tablet PO (06:07)
[2022-09-18] MEDS: Furosemide 40 MG Tablet PO ×2 (06:08→14:19)
[2022-09-18] MEDS: Nystatin Ointment 1 APPLIC TOPICAL ×2 (06:08→17:17)
[2022-09-18] MEDS: Empagliflozin 10 MG Tablet PO (06:08)
[2022-09-18 06:31] LABS: Bedside Glucose 154 mg/dL (74-106)
[2022-09-18] MEDS: Albuterol 2.5 MG/3 ML VIAL.NEB. INHALATION ×4 (07:35→20:30)
--- NOTE | 2022-09-18 08:02 | NURSING ---
Spoke w/ pharmacist, Trena, to verify renal function and keflex. She notes due to improved renal function, TID dosing is acceptable. HELGA Smyth, updated.
[2022-09-18 08:13] LABS: International Normalized Ratio 1.3
[2022-09-18] MEDS: Glucerna Shake 120 ML LIQUID PO (08:24)
[2022-09-18] MEDS: Insulin Lispro 100 UNIT/ML INSULN.PEN SC ×3 (08:25→17:12)
[2022-09-18] MEDS: Amiodarone 200 MG Tablet 100 MG PO (08:26)
[2022-09-18] MEDS: predniSONE 10 MG Tablet PO (08:27)
[2022-09-18] MEDS: Potassium Chloride Oral Tablet 20 MEQ PO ×2 (08:27→17:16)
[2022-09-18 11:40] LABS: Bedside Glucose 184 mg/dL (74-106)
--- NOTE | 2022-09-18 12:03 | WOUNDNOTE ---
wound photo: left lower leg
--- NOTE | 2022-09-18 12:03 | WOUNDNOTE ---
wound photo: left lower leg
--- NOTE | 2022-09-18 12:03 | WOUNDNOTE ---
wound photo: left medial thigh
[2022-09-18] MEDS: Ferrous Sulfate 325 MG Tablet PO ×2 (12:29→17:15)
--- NOTE | 2022-09-18 12:51 | NURSING ---
Property Controller Note; Activity Asset: Complete Norris is independent in his choice of daily activities. Norris stated her prefers to just relax in his room and visit w/his family and do therapy. His family will be here daily and bring him what he needs. I will stop in weekly to see if he is doing ok and if he needs anything.
--- NOTE | 2022-09-18 12:51 | PCM.PN.ID ---
Physical Exam Narrative Feeling better, leg less red, no fever, no n/v/d. Const alert and no apparent distress Resp normal air movement and clear to auscultation bilaterally Cardio regular rate and regular rhythm GI soft to palpation, non-tender and non-distended Extremity General Extremity: edema Skin Skin Narrative: LLE less red ID ID: Route of nutrition/ use of supplements: [] Nutritional Intake: [] IV Site: [] Márquez Catheter: [] Assessment & Plan Assessment/Plan (1) Cellulitis of left lower extremity: PLAN: Improving. Keflex to stop 09/20/22. Will follow as needed, thank you
--- NOTE | 2022-09-18 14:17 | PCM.PN.DRR ---
TCU RX Drug Regimen Review Subjective: TCU Admission. 81 YOM presented to the ER with shortness of breath. Hospitalized for acute delirium secondary to sepsis from left lower extremity cellulitis, complicated by acute respiratory failure with hypoxia, acute kidney injury, right sided stroke. Admitted to TCU with debility for strengthening and rehabilitation. Objective: Allergies No Known Allergies Allergy (Verified 09/06/22 19:59) Current Medications Generic Name Dose Route Start Last Admin Trade Name Freq PRN Reason Stop Dose Admin Acetaminophen 1,000 mg 09/15/22 20:17 Acetaminophen 500 Mg Tablet PO Q6H PRN PRN Pain 1-10 Albuterol Sulfate 2.5 mg 09/17/22 14:00 09/18/22 07:35 Albuterol 2.5 Mg/3 Ml Vial.Neb. INHALATION 2.5 mg Q4HWA.RT DANIEL Administration Amiodarone HCl 100 mg 09/16/22 08:00 09/18/22 08:26 Amiodarone 200 Mg Tablet PO 100 mg DAILYCM DANIEL Administration Amlodipine Besylate 10 mg 09/16/22 06:00 09/18/22 06:07 Amlodipine 10 Mg Tablet PO 10 mg DAILY DANIEL Administration Atorvastatin Calcium 40 mg 09/15/22 22:00 09/17/22 21:39 Atorvastatin Calcium 40 Mg Tablet PO 40 mg QHS DANIEL Administration Bisacodyl 10 mg 09/15/22 20:15 Bisacodyl 10 Mg Suppository RC X1 PRN Constipation Cephalexin 500 mg 09/17/22 06:00 09/18/22 06:05 Cephalexin 500 Mg Capsule PO 09/20/22 23:59 500 mg TID DANIEL Administration Cholecalciferol 25 mcg 09/16/22 06:00 09/18/22 06:07 Cholecalciferol (Vit D3) 25 Mcg Tablet (1,000 Units) PO 25 mcg DAILY DANIEL Administration Clopidogrel Bisulfate 75 mg 09/16/22 06:00 09/18/22 06:07 Clopidogrel Bisulfate 75 Mg Tablet PO 75 mg DAILY DANIEL Administration Empagliflozin 10 mg 09/16/22 06:00 09/18/22 06:08 Empagliflozin 10 Mg Tablet PO 10 mg DAILY DANIEL Administration Ferrous Sulfate 325 mg 09/15/22 17:00 09/18/22 12:29 Ferrous Sulfate 325 Mg Tablet PO 325 mg BID@1200,1700 DANIEL Administration Furosemide 40 mg 09/17/22 06:00 09/18/22 06:08 Furosemide 40 Mg Tablet PO 40 mg BIDLX DANIEL Administration Glucagon 1 mg 09/15/22 15:58 Glucagon 1 Mg/Ml Syringe IM X1 PRN Hypoglycemia Insulin Glargine 15 unit 09/17/22 22:00 09/17/22 21:39 Insulin Glargine-Yfgn 100 Unit/Ml Pen SC 15 unit QHS DANIEL Administration Insulin Human Lispro 5 unit 09/16/22 11:52 09/18/22 12:28 Insulin Lispro 100 Unit/Ml Insuln.Pen SC 5 units TIDAC DANIEL Administration Levothyroxine Sodium 50 mcg 09/16/22 06:00 09/18/22 06:07 Levothyroxine 50 Mcg Tablet PO 50 mcg 0600 DANIEL Administration Loratadine 10 mg 09/15/22 22:00 09/17/22 21:39 Loratadine 10 Mg Tablet PO 10 mg HS DANIEL Administration Losartan Potassium 25 mg 09/16/22 06:00 09/18/22 06:07 Losartan Potassium 25 Mg Tablet PO 25 mg DAILY DANIEL Administration Magnesium Hydroxide 30 ml 09/15/22 20:15 Magnesium Hydroxide 30 Ml Udc PO X1 PRN Constipation Metoprolol Tartrate 75 mg 09/17/22 18:00 09/18/22 06:06 Metoprolol Tartrate 50 Mg Tablet PO 75 mg BID DANIEL Administration Nystatin 1 applic 09/16/22 10:00 09/18/22 06:08 Nystatin Ointment TOPICAL 1 applic BID DANIEL Administration Protocol Pantoprazole Sodium 20 mg 09/16/22 06:00 09/18/22 06:07 Pantoprazole Sodium 20 Mg Tablet PO 20 mg DAILY DANIEL Administration Potassium Chloride 20 meq 09/15/22 17:00 09/18/22 08:27 Potassium Chloride Oral Tablet 20 Meq PO 20 meq BIDCM DANIEL Administration Prednisone 10 mg 09/16/22 08:00 09/18/22 08:27 Prednisone 10 Mg Tablet PO 10 mg DAILYCM DANIEL Administration Senna/Docusate Sodium 1 tablet 09/15/22 20:30 09/18/22 06:07 Senna/Docusate Sodium 1 Tablet PO Not Given BID DANIEL Sodium Chloride 10 - 40 ml 09/15/22 16:55 09/18/22 06:05 0.9% Saline Lock 10 Ml Syringe IV 10 ml UD PRN Administration SALINE FLUSH Tizanidine HCl 4 mg 09/15/22 16:48 Tizanidine Hcl 2 Mg Tablet PO Q8H PRN PRN SPASMS Tuberculin PPD 0.1 ml 09/23/22 10:00 Tuberculin,Purif.Prot.Deriv. 50 Tu/Ml Vial ID 09/23/22 10:01 X1 ONE Warfarin Sodium 2 mg 09/16/22 17:00 09/17/22 17:39 Jantoven 2 Mg Tablet PO 2 mg 1700 DANIEL Administration Problem List (Last Reviewed 09/15/22 @ 19:[address] Mickey Torres MD) Coronary artery disease (Acute) Muscle spasm (Acute) Iron deficiency anemia (Acute) Hypothyroidism (Acute) Atrial fibrillation (Acute) Anxiety (Acute) Hyperlipidemia (Acute) GERD (gastroesophageal reflux disease) (Acute) Hypertension (Chronic) Sleep apnea (Acute) Stroke (Acute) Chronic kidney disease, stage 3b (Acute) Acute kidney injury (Acute) Cellulitis of left lower extremity (Acute) Sepsis (Acute) Acute encephalopathy (Acute) Acute respiratory failure with hypoxia (Acute) Debility (Acute) Vital Signs Temp Pulse Resp BP Pulse Ox O2 Del Method O2 Flow Rate 97.3 F L 68 20 H 132/65 H 94 Nasal Cannula 5 09/18/22 14:00 09/18/22 14:00 09/18/22 14:00 09/18/22 14:00 09/18/22 14:00 09/18/22 14:00 09/18/22 14:00 FiO2 40 09/18/22 03:34 Oxygen Flow Rate (L/min) 5 Oxygen Delivery Method Nasal Cannula Weight: 99.337 kg Body Mass Index (BMI) 38.3 Sodium 142 mmol/L (136-145) 09/17/22 04:20 Potassium 4.3 mmol/L (3.5-5.1) 09/17/22 04:20 Chloride 102 mmol/L (98-107) 09/17/22 04:20 Carbon Dioxide 36.0 mmol/L (21.0-32.0) H 09/17/22 04:20 Anion Gap 4 (5-15) L 09/17/22 04:20 BUN 35 mg/dL (7-18) H 09/17/22 04:20 Creatinine 1.33 mg/dL (0.70-1.30) H 09/17/22 04:20 Est GFR (MDRD) Af Amer 67 mL/min (>60) 09/17/22 04:20 Est GFR (MDRD) Non-Af 55 mL/min (>60) L 09/17/22 04:20 BUN/Creatinine Ratio 26.3 RATIO (10-20) H 09/17/22 04:20 Glucose 165 mg/dL (74-106) H 09/17/22 04:20 Assessment/Plan: 1. Pain: acetaminophen 1000mg PO Q6H PRN pain 1-10. Resident has not had any doses so far. Please continue to monitor for increased pain and PRN usage. 2. Bowel: senna/docusate 1T PO BID, bisacodyl 10mg RC x1 PRN constipation and MOM 30mL PO x1 PRN constipation. No PRN doses have been given. Resident has refused 4/6 doses of senna/docusate. Please consider changing from scheduled to PRN constipation. Thanks. Last documented bowel movements 09/17. 3. Lower extremity cellulitis: cephalexin 500mg PO TID thru 09/20/22. ID consulted. Please continue to monitor renal function, S/S of infection and diarrhea. 4. Atrial fibrillation/hypertension/stroke/CHF: metoprolol tartrate 75mg PO BID, amiodarone 100mg PO daily, warfarin 2mg PO DINNER, amlodipine 10mg PO daily, losartan 25mg PO daily, furosemide 40mg PO BIDLX and clopidogrel 75mg PO daily. Please continue to monitor BP (last 132/65), HR (last 68), sodium (last 142mmol/L), potassium (last 4.3mmol/L), INR (last 1.3 09/18/22), swelling, renal function, S/S of bleeding and hemoglobin (last 12.9g/dL). 5. Asthma: albuterol 2.5mg/3mL nebulized solution 2.5mg inhalation Q4HWA.RT and prednisone 10mg PO daily. Please continue to monitor HR, hunger and glucose. 6. Hyperlipidemia: atorvastatin 40mg PO QHS. Please continue to monitor lipid panel (last 09/09/22), LFTs (last 09/11/22) and muscle pain. 7. Diabetes Mellitus: empagliflozin 10mg PO, insulin glargine 15units SC QHS, insulin lispro 5units TIDAC and glucagon PRN hypoglycemia. Please continue to monitor hemoglobin A1c (last 8.5% 09/08/22), glucose (last 184mg/dL) and S/S of hypoglycemia. 8. Iron deficiency anemia: ferrous sulfate 325mg PO BID. Please continue to monitor hemoglobin, constipation and dark stools. 9. Hypothyroidism: levothyroxine 50mcg PO daily. Please consider ordering a TSH (last 08/12/20) if clinically appropriate. Thanks. Please continue to monitor for S/S of hypothyroidism. 10. Allergic rhinitis: loratadine 10mg PO QHS. Please continue to monitor for S/S of allergies and anticholinergic side effects. 11. GERD: pantoprazole 20mg PO daily. Please continue to monitor for S/S of GERD and diarrhea (BEERs criteria medication due to increased risk of C. diff infections.) 12. Hypokalemia: potassium chloride 20mEq PO BIDCM. Please continue to monitor potassium levels. 13. Muscle spasms: tizanidine 4mg PO Q8H PRN spasms. Resident has not had any doses. Please continue to monitor for spasms and PRN usage. 14. Vitamin D deficiency: cholecalciferol 25mcg PO daily. Please consider ordering a vitamin D level (last level from 08/12/20) if clinically appropriate. Thanks. Assessment/Plan for indications treated with psychotropic medications: None Medical chart and medication regimen reviewed. The following medication irregularities or issues were identified: *1. Senna/docusate 1T PO BID. Resident has refused 4/6 doses of senna/docusate. Please consider changing from scheduled to PRN constipation. Thanks. *2. Levothyroxine 50mcg PO daily. Please consider ordering a TSH (last 08/12/20) if clinically appropriate. Thanks. *3. Cholecalciferol 25mcg PO daily. Please consider ordering a vitamin D level (last level from 08/12/20) if clinically appropriate. Thanks. *4. Warfarin 2mg PO dinner. INR is 1.3 today, please consider ordering an extra dose for today. Thanks. Date of Note:: 09/18/22
--- NOTE | 2022-09-18 15:26 | CHAPLAIN ---
Type of Pastoral Visit ___ Initial Visit _x__ Follow-up Visit ___ On-call Visit ___ General Patient Visit ___ Spiritual Assessment ___ Family Conference ___ Bereavement ___ Rapid Response ___ Code Blue ___ Other (describe below) Pastoral Care Referral From _x__ Patient ___ Family ___ Nurse ___ Physician ___ Head Waitress ___ Whirley Operator ___ Other (describe below) Sacrament/Intervention _x__ Active listening ___ Anointing ___ Congregation ___ Bereavement ___ Communion ___ Tori exploration ___ ___ Life review _x__ Prayer ___ Reconciliation ___ Sacrament of Sick ___ Supportive presence ___ Wedding ___ Other (describe below) Pastoral Comments met this patient in PCU previously; 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
[2022-09-18 16:40] LABS: Bedside Glucose 235 mg/dL (74-106)
[2022-09-18] MEDS: Senna/Docusate Sodium 1 Tablet PO (17:15)
[2022-09-18] MEDS: Jantoven 2 MG Tablet PO (17:16)
--- NOTE | 2022-09-18 20:47 | NURSING ---
Addendum entered by Marry Camejo 09/18/22 20:49: *Vaccine, not booster Original Note: Patient refused the Covid booster when offered. Educated and provided an education pamphlet.
[2022-09-18 21:25] LABS: Bedside Glucose 227 mg/dL (74-106)
[2022-09-18] MEDS: Atorvastatin Calcium 40 MG Tablet PO (21:32)
[2022-09-18] MEDS: Loratadine 10 MG Tablet PO (21:33)
[2022-09-18] MEDS: Insulin Glargine-YFGN 100 UNIT/ML Pen 15 UNIT SC (21:41)
[2022-09-18] MEDS: MethylPREDNISolone DosePak 4 MG BOX PO (21:41)
[2022-09-19] VITALS (11 sets, daily range): BP systolic 129–144; BP diastolic 62–67; PULSE 65–79; RESP 12–26; TEMP 36.4; O2SAT 90–98
[2022-09-19] MEDS: Levothyroxine 50 MCG Tablet PO (06:21)
[2022-09-19] MEDS: Losartan Potassium 25 MG Tablet PO (06:21)
[2022-09-19] MEDS: Cholecalciferol (VIT D3) 25 MCG TABLET (1,000 UNITS) PO (06:21)
[2022-09-19] MEDS: Cephalexin 500 MG Capsule PO ×3 (06:21→21:32)
[2022-09-19] MEDS: Empagliflozin 10 MG Tablet PO (06:21)
[2022-09-19] MEDS: Clopidogrel Bisulfate 75 MG Tablet PO (06:21)
[2022-09-19] MEDS: Metoprolol Tartrate 50 MG Tablet 75 MG PO ×2 (06:22→17:39)
[2022-09-19] MEDS: Furosemide 40 MG Tablet PO ×2 (06:22→13:38)
[2022-09-19] MEDS: Senna/Docusate Sodium 1 Tablet PO (06:22)
[2022-09-19] MEDS: amLODIPine 10 MG Tablet PO (06:23)
[2022-09-19] MEDS: Nystatin Ointment 1 APPLIC TOPICAL ×2 (06:23→21:39)
[2022-09-19] MEDS: Pantoprazole Sodium 20 MG Tablet PO (06:23)
[2022-09-19 06:50] LABS: Bedside Glucose 245 mg/dL (74-106)
[2022-09-19] MEDS: Albuterol 2.5 MG/3 ML VIAL.NEB. INHALATION ×4 (06:50→19:53)
[2022-09-19] MEDS: Insulin Lispro 100 UNIT/ML INSULN.PEN 10 UNIT SC ×3 (07:59→17:42)
[2022-09-19] MEDS: MethylPREDNISolone DosePak 4 MG BOX PO ×4 (08:01→21:27)
[2022-09-19] MEDS: Potassium Chloride Oral Tablet 20 MEQ PO ×2 (08:01→17:38)
[2022-09-19] MEDS: Amiodarone 200 MG Tablet 100 MG PO (08:02)
[2022-09-19 11:45] LABS: Bedside Glucose 292 mg/dL (74-106)
[2022-09-19] MEDS: Ferrous Sulfate 325 MG Tablet PO ×2 (12:04→17:38)
--- NOTE | 2022-09-19 13:02 | CASEMGMT ---
Social Work Met with patient to complete initial assessment. and dtr, Ratna, present in room. Introduced self and role. Pt granted permission for this worker to complete assessment with family present. Discussed code status and MOLST form. Pt confirmed DNR-CCA, no intubation. MOLST placed in Dr folder. Pt is aware [facility] is funding stay and it will be a collaboration for Aid and IDT to determine DC date. Pt's goal is to return home with family assistance at [facility]. Pt agreeable to complete advanced directives. SW to complete prior to DC as time allows. SW to continue to follow. Rola Chacko, REGULAR SENIOR CARE PROVIDER HOG FEEDER
--- NOTE | 2022-09-19 13:17 | WOUNDNOTE ---
In room to assess bilateral lower legs. dressings had been changed this am. AMBER wraps are intact. pt resting in bed with legs elevated in the recliner chair on pillows. pt denies further needs at this time.
--- NOTE | 2022-09-19 15:29 | NURSING ---
Patient and family updated that Walt didn't have any appointments for months. Office scheduled him with Vanessa Benitez NP 09/28/22 @ 1300. Family will accompany him to appointment.
[2022-09-19 16:46] LABS: Bedside Glucose 238 mg/dL (74-106)
[2022-09-19] MEDS: Jantoven 2 MG Tablet PO (17:37)
[2022-09-19] MEDS: Loratadine 10 MG Tablet PO (21:32)
[2022-09-19] MEDS: Atorvastatin Calcium 40 MG Tablet PO (21:32)
[2022-09-19] MEDS: Insulin Glargine-YFGN 100 UNIT/ML Pen 30 UNIT SC (21:35)
[2022-09-19 21:55] LABS: Bedside Glucose 322 mg/dL (74-106)
[2022-09-20] VITALS (9 sets, daily range): BP systolic 134–138; BP diastolic 66–69; PULSE 60–74; RESP 12–22; TEMP 35.8; O2SAT 92–97
[2022-09-20] MEDS: Pantoprazole Sodium 20 MG Tablet PO (06:05)
[2022-09-20] MEDS: Cephalexin 500 MG Capsule PO ×3 (06:05→21:37)
[2022-09-20] MEDS: Empagliflozin 10 MG Tablet PO (06:06)
[2022-09-20] MEDS: Metoprolol Tartrate 50 MG Tablet 75 MG PO ×2 (06:06→17:53)
[2022-09-20] MEDS: Cholecalciferol (VIT D3) 25 MCG TABLET (1,000 UNITS) PO (06:06)
[2022-09-20] MEDS: Furosemide 40 MG Tablet PO ×2 (06:06→12:03)
[2022-09-20] MEDS: Losartan Potassium 25 MG Tablet PO (06:06)
[2022-09-20] MEDS: Clopidogrel Bisulfate 75 MG Tablet PO (06:06)
[2022-09-20] MEDS: Levothyroxine 50 MCG Tablet PO (06:06)
[2022-09-20] MEDS: amLODIPine 10 MG Tablet PO (06:06)
[2022-09-20] MEDS: Nystatin Ointment 1 APPLIC TOPICAL ×2 (06:07→18:07)
[2022-09-20 06:40] LABS: Bedside Glucose 220 mg/dL (74-106)
[2022-09-20] MEDS: Albuterol 2.5 MG/3 ML VIAL.NEB. INHALATION ×4 (06:44→19:40)
--- NOTE | 2022-09-20 06:44 | NURSING ---
IV removed from right ac. Noted to have skin tear under inner left corner of dressing when removed. New dressing applied to site. Will continue to monitor.
[2022-09-20] MEDS: Amiodarone 200 MG Tablet 100 MG PO (08:06)
[2022-09-20] MEDS: Potassium Chloride Oral Tablet 20 MEQ PO ×2 (08:07→17:53)
[2022-09-20] MEDS: MethylPREDNISolone DosePak 4 MG BOX PO ×4 (08:08→21:34)
[2022-09-20] MEDS: Insulin Lispro 100 UNIT/ML INSULN.PEN 13 UNIT SC ×3 (08:11→17:51)
--- NOTE | 2022-09-20 11:22 | CASEMGMT ---
Addendum entered by Rola Chacko 09/20/22 14:56: Palliative meeting scheduled with pt and family 09/22 at 1400. Original Note: Social Work IDT met with patient and family for care plan meeting. Discussed patient's progress in PT/OT/ST/SN. Educated to [facility] for coverage. SW to assist with DC coordination. Answered questions for family related to HHC, Palliative, DC time frame, O2, new catheter, f/u appts for transport. Educated family to allow about 3 days notice for DC coordination. Family to bring in CPAP tonight for pt to use an RT to adjust as needed. Pt will DC home on continuous O2. Family agreeable to using [facility]. Family would like voiding trials to start to allow him to DC home without catheter. Nursing updated. Family requesting Palliative referral. Referral sent via email to [facility]. SW to continue to follow. Rola Chacko, RAYMON FOREST RANGER
[2022-09-20] MEDS: Ferrous Sulfate 325 MG Tablet PO ×2 (12:02→17:52)
[2022-09-20] MEDS: Jantoven 2 MG Tablet PO (17:52)
[2022-09-20 18:05] LABS: Bedside Glucose 276 mg/dL (74-106)
[2022-09-20 18:10] LABS: Bedside Glucose 221 mg/dL (74-106)
[2022-09-20] MEDS: Insulin Glargine-YFGN 100 UNIT/ML Pen 40 UNIT SC (21:34)
[2022-09-20] MEDS: Loratadine 10 MG Tablet PO (21:38)
[2022-09-20] MEDS: Atorvastatin Calcium 40 MG Tablet PO (21:38)
[2022-09-20 22:00] LABS: Bedside Glucose 253 mg/dL (74-106)
[2022-09-21] VITALS (11 sets, daily range): BP systolic 131–139; BP diastolic 62–66; PULSE 60–85; RESP 12–28; TEMP 36.2; O2SAT 86–96
[2022-09-21] MEDS: Furosemide 40 MG Tablet PO ×2 (05:04→13:20)
[2022-09-21] MEDS: Empagliflozin 10 MG Tablet PO (05:04)
[2022-09-21] MEDS: Losartan Potassium 25 MG Tablet PO (05:04)
[2022-09-21] MEDS: Metoprolol Tartrate 50 MG Tablet 75 MG PO ×2 (05:05→17:38)
[2022-09-21] MEDS: Pantoprazole Sodium 20 MG Tablet PO (05:06)
[2022-09-21] MEDS: Cholecalciferol (VIT D3) 25 MCG TABLET (1,000 UNITS) PO (05:06)
[2022-09-21] MEDS: Clopidogrel Bisulfate 75 MG Tablet PO (05:06)
[2022-09-21] MEDS: Senna/Docusate Sodium 1 Tablet PO ×2 (05:06→17:38)
[2022-09-21] MEDS: Levothyroxine 50 MCG Tablet PO (05:06)
[2022-09-21] MEDS: amLODIPine 10 MG Tablet PO (05:06)
[2022-09-21] MEDS: Nystatin Ointment 1 APPLIC TOPICAL ×2 (05:13→17:42)
[2022-09-21 06:25] LABS: International Normalized Ratio 1.6; Prothrombin Time (Protime)PT. 19.1 SECONDS (11.7-14.9)
[2022-09-21 06:40] LABS: Bedside Glucose 183 mg/dL (74-106)
[2022-09-21] MEDS: MethylPREDNISolone DosePak 4 MG BOX PO ×3 (08:10→22:19)
[2022-09-21] MEDS: Insulin Lispro 100 UNIT/ML INSULN.PEN 13 UNIT SC ×3 (08:10→17:38)
[2022-09-21] MEDS: Potassium Chloride Oral Tablet 20 MEQ PO ×2 (08:11→17:37)
[2022-09-21] MEDS: Amiodarone 200 MG Tablet 100 MG PO (08:11)
[2022-09-21] MEDS: Albuterol 2.5 MG/3 ML VIAL.NEB. INHALATION ×2 (10:43→19:45)
[2022-09-21 11:36] LABS: Bedside Glucose 212 mg/dL (74-106)
[2022-09-21] MEDS: Ferrous Sulfate 325 MG Tablet PO ×2 (12:07→17:38)
--- NOTE | 2022-09-21 12:59 | MDS.RN ---
Pain interview for JESIKA 09/22/22.
[2022-09-21 16:56] LABS: Bedside Glucose 177 mg/dL (74-106)
[2022-09-21] MEDS: Jantoven 2 MG Tablet PO (17:37)
--- NOTE | 2022-09-21 21:25 | CPS ---
Increased O2 bleed in to 8 lpm.
[2022-09-21 21:30] LABS: Bedside Glucose 272 mg/dL (74-106)
[2022-09-21] MEDS: Loratadine 10 MG Tablet PO (22:20)
[2022-09-21] MEDS: Atorvastatin Calcium 40 MG Tablet PO (22:20)
[2022-09-21] MEDS: Insulin Glargine-YFGN 100 UNIT/ML Pen 40 UNIT SC (22:21)
[2022-09-22] VITALS (10 sets, daily range): BP systolic 124–152; BP diastolic 67–69; PULSE 60–68; RESP 12–24; TEMP 36.3; O2SAT 92–95
--- NOTE | 2022-09-22 01:14 | CPS ---
RT at bedside for alarming low sat limits (83%) on continuous pulse ox while the patient was wearing his home CPAP of +17 with an 8 liter oxygen bleed in. RT found patient with his mouth dropped open and bottom lip below the mask. This was creating a significant leak so a chin strap was put on the patient to attempt to remedy this issue. After a few minutes with the mask repositioned and the chin strap in place the patient's sat remained below 86%. RT then increased the oxygen to 10 L through the patient's CPAP and his sat increased to 92%. Will continue to monitor through the night. If sat continues to drop RT will place patient back on Hospital BIPAP machine.
[2022-09-22] MEDS: Metoprolol Tartrate 50 MG Tablet 75 MG PO ×2 (06:15→17:50)
[2022-09-22] MEDS: Losartan Potassium 25 MG Tablet PO (06:16)
[2022-09-22] MEDS: Levothyroxine 50 MCG Tablet PO (06:16)
[2022-09-22] MEDS: Pantoprazole Sodium 20 MG Tablet PO (06:16)
[2022-09-22] MEDS: Clopidogrel Bisulfate 75 MG Tablet PO (06:16)
[2022-09-22] MEDS: amLODIPine 10 MG Tablet PO (06:16)
[2022-09-22] MEDS: Furosemide 40 MG Tablet PO ×2 (06:16→13:55)
[2022-09-22] MEDS: Empagliflozin 10 MG Tablet PO (06:16)
[2022-09-22] MEDS: Cholecalciferol (VIT D3) 25 MCG TABLET (1,000 UNITS) PO (06:16)
[2022-09-22 06:41] LABS: Bedside Glucose 169 mg/dL (74-106)
[2022-09-22] MEDS: Insulin Lispro 100 UNIT/ML INSULN.PEN 13 UNIT SC ×3 (07:50→17:45)
[2022-09-22] MEDS: MethylPREDNISolone DosePak 4 MG BOX PO ×2 (07:52→22:09)
[2022-09-22] MEDS: Potassium Chloride Oral Tablet 20 MEQ PO ×2 (07:57→17:49)
[2022-09-22] MEDS: Amiodarone 200 MG Tablet 100 MG PO (07:57)
[2022-09-22] MEDS: Albuterol 2.5 MG/3 ML VIAL.NEB. INHALATION ×3 (08:07→16:15)
--- NOTE | 2022-09-22 08:59 | NURSING ---
[employer] Planners Note; MDS Complete
--- NOTE | 2022-09-22 10:00 | RAD_ITS ---
STUDY: X-RAY - ABDOMEN/PELVIS REASON FOR EXAM: Male, 81 years old. Distended abdomen. TECHNIQUE: Single AP view of the abdomen / pelvis. COMPARISON: Comparison is made with prior study dated 09/15/2022. FINDINGS: There is a moderate amount of colonic fecal material. There is a 2.5 cm rounded calcification in the left upper quadrant. This may represent a calcified splenic cyst or possible calcified splenic artery aneurysm. Normal soft tissue structures. There are diffuse degenerative changes of the visualized lumbar spine. Loss of height of the L3 and L4 vertebrae. RAD/Abdomen Single View IMPRESSION: Moderate amount of fecal material is seen throughout the colon. Electronically Signed: Bacilio Mitchell MD at 15:35 EST ,
[2022-09-22 11:11] LABS: Bedside Glucose 197 mg/dL (74-106)
--- NOTE | 2022-09-22 11:48 | CPS ---
Pt has been wearing a [facility] BIPAP machine but last night wore his own CPAP [id number] with O2 bled in. The O2 was titrated to keep his Sat >/=90%, O2 had to be increased to 15lpm to get his SpO2 to the low 90's. This is not something that will work at home because concentrators do not go that high. This R.T. explained this to the patient and his daughter. Darrian will suggest to Dr Torres that pt be discharged to Sleep Lab for a sleep study because the situation has changed and the CPAP pressure will not meet his oxygen requirements. Darrian spoke with Sumi in our Sleep Lab so she can coordinate with Social Work if Dr Torres agrees with this suggestion.
[2022-09-22] MEDS: Ferrous Sulfate 325 MG Tablet PO ×2 (12:19→17:47)
--- NOTE | 2022-09-22 16:30 | CASEMGMT ---
Social Work BIMS () and PHQ-9 () completed for MDS assessment. Pt signed consents for [facility]. Completed healthcare POA and living will with pt. Original and copies provided to dtr and copies placed on chart. Per Dr. Torres, pt will need a sleep study prior to DC as CPAP is not effective. Nursing updated to schedule sleep study. Family aware. Answered further questions. Goal is for pt to remain in TCU through next week for appts and to see when sleep study can be scheduled. SW to coordinate home O2 and skilled HHC. Family appreciative. Will continue to follow. RAYMON Mayfield
[2022-09-22 17:16] LABS: Bedside Glucose 164 mg/dL (74-106)
[2022-09-22] MEDS: Jantoven 2 MG Tablet PO (17:49)
[2022-09-22] MEDS: Tamsulosin HCl 0.4 MG Capsule PO (17:50)
[2022-09-22 21:56] LABS: Bedside Glucose 221 mg/dL (74-106)
[2022-09-22] MEDS: Insulin Glargine-YFGN 100 UNIT/ML Pen 40 UNIT SC (22:08)
[2022-09-22] MEDS: Atorvastatin Calcium 40 MG Tablet PO (22:09)
[2022-09-22] MEDS: Loratadine 10 MG Tablet PO (22:10)
[2022-09-23] VITALS (11 sets, daily range): BP systolic 117–132; BP diastolic 57–70; PULSE 58–71; RESP 12–24; TEMP 36.2; O2SAT 94–99
[2022-09-23] MEDS: Metoprolol Tartrate 50 MG Tablet 75 MG PO ×2 (05:06→17:41)
[2022-09-23] MEDS: Losartan Potassium 25 MG Tablet PO (05:07)
[2022-09-23] MEDS: Senna/Docusate Sodium 1 Tablet PO (05:07)
[2022-09-23] MEDS: Levothyroxine 50 MCG Tablet PO (05:07)
[2022-09-23] MEDS: Furosemide 40 MG Tablet PO ×2 (05:07→14:02)
[2022-09-23] MEDS: Empagliflozin 10 MG Tablet PO (05:07)
[2022-09-23] MEDS: Pantoprazole Sodium 20 MG Tablet PO (05:08)
[2022-09-23] MEDS: Clopidogrel Bisulfate 75 MG Tablet PO (05:08)
[2022-09-23] MEDS: Cholecalciferol (VIT D3) 25 MCG TABLET (1,000 UNITS) PO (05:08)
[2022-09-23] MEDS: amLODIPine 10 MG Tablet PO (05:08)
[2022-09-23] MEDS: Nystatin Ointment 1 APPLIC TOPICAL ×2 (05:10→21:26)
[2022-09-23 06:31] LABS: Bedside Glucose 167 mg/dL (74-106)
[2022-09-23 07:18] LABS: Hematocrit 40.4 % (40-54); Hemoglobin 12.7 g/dL (13.0-16.5); Mean Corp Hgb Conc 31.4 g/dL (32-36); Mean Corpuscular Hgb 29.6 pg (27.0-32.0); Mean Corpuscular Volume 94.2 fL (80-94); Mean Platelet Vol. 9.5 fl (6.2-12.0); POSITIVE COUNT YES; POSITIVE MORPHOLOGY YES; Platelet Count 290 K/mm3 (150-450); RBC Distribution Width CV 14.2 % (11.6-14.6); RBC Distribution Width SD 48.9 fl (35.1-43.9); Red Blood Count 4.29 M/mm3 (4.6-6.2); White Blood Count 11.3 K/mm3 (4.4-11.0)
[2022-09-23 07:22] LABS: Differential Indicated MANUAL DIFF
[2022-09-23 07:40] LABS: Anion Gap 7 (5-15); BUN 59 mg/dL (7-18); Calcium,Total 8.7 mg/dL (8.5-10.1); Chloride 100 mmol/L (98-107); Creatinine, Serum 1.64 mg/dL (0.70-1.30); EST Glomerular Filtration Rate 43 mL/min (>60); Est Glom Filt Rate - Afr Amer 52 mL/min (>60); Estimated Creatinine Clearance 31.77 ml/min; Glucose 168 mg/dL (74-106); Potassium 4.4 mmol/L (3.5-5.1); Sodium Level 137 mmol/L (136-145)
[2022-09-23 07:59] LABS: Lymphocyte 14 % (19-41); Metamyelocyte 2 % (0-1); Monocyte 4 % (0-10); Neutrophil-Band 2 % (0-5); Neutrophil-Segmented 78 % (47-70); Total Cells Counted 100 (MANUAL DIFF)
[2022-09-23 08:00] LABS: Platelet Estimate ADEQUATE (ADEQ); Red Cell Morphology NORM C+C NORMAL (NORM C&C)
[2022-09-23] MEDS: Albuterol 2.5 MG/3 ML VIAL.NEB. INHALATION ×3 (08:00→20:25)
[2022-09-23] MEDS: Insulin Lispro 100 UNIT/ML INSULN.PEN 13 UNIT SC ×3 (08:01→17:29)
[2022-09-23] MEDS: Amiodarone 200 MG Tablet 100 MG PO (08:03)
[2022-09-23] MEDS: Potassium Chloride Oral Tablet 20 MEQ PO ×2 (08:03→17:32)
[2022-09-23] MEDS: MethylPREDNISolone DosePak 4 MG BOX PO (08:08)
[2022-09-23] MEDS: Tuberculin,Purif.prot.deriv. 50 TU/ML Vial 0.1 ML ID (09:41)
[2022-09-23] MEDS: Ferrous Sulfate 325 MG Tablet PO ×2 (11:56→17:31)
[2022-09-23 12:25] LABS: Bedside Glucose 96 mg/dL (74-106)
[2022-09-23 17:10] LABS: Bedside Glucose 212 mg/dL (74-106)
[2022-09-23] MEDS: Jantoven 2 MG Tablet PO (17:32)
[2022-09-23] MEDS: Menthol/Lanolin/Calamine/Znox 113 GM Tube 1 APPLIC TOPICAL (17:33)
[2022-09-23] MEDS: Tamsulosin HCl 0.4 MG Capsule PO (17:33)
[2022-09-23] MEDS: Loratadine 10 MG Tablet PO (21:27)
[2022-09-23] MEDS: Atorvastatin Calcium 40 MG Tablet PO (21:27)
[2022-09-23] MEDS: Insulin Glargine-YFGN 100 UNIT/ML Pen 40 UNIT SC (21:28)
[2022-09-23 22:30] LABS: Bedside Glucose 161 mg/dL (74-106)
[2022-09-24] VITALS (10 sets, daily range): BP systolic 127–135; BP diastolic 56–59; PULSE 56–66; RESP 12–25; TEMP 36.2; O2SAT 92–98
[2022-09-24] MEDS: amLODIPine 10 MG Tablet PO (05:18)
[2022-09-24] MEDS: Furosemide 40 MG Tablet PO ×2 (05:18→13:53)
[2022-09-24] MEDS: Empagliflozin 10 MG Tablet PO (05:18)
[2022-09-24] MEDS: Metoprolol Tartrate 50 MG Tablet 75 MG PO ×2 (05:19→17:44)
[2022-09-24] MEDS: Levothyroxine 50 MCG Tablet PO (05:19)
[2022-09-24] MEDS: Senna/Docusate Sodium 1 Tablet PO (05:19)
[2022-09-24] MEDS: Losartan Potassium 25 MG Tablet PO (05:19)
[2022-09-24] MEDS: Clopidogrel Bisulfate 75 MG Tablet PO (05:19)
[2022-09-24] MEDS: Pantoprazole Sodium 20 MG Tablet PO (05:19)
[2022-09-24] MEDS: Menthol/Lanolin/Calamine/Znox 113 GM Tube 1 APPLIC TOPICAL ×2 (05:29→22:20)
[2022-09-24] MEDS: Cholecalciferol (VIT D3) 25 MCG TABLET (1,000 UNITS) PO (05:31)
[2022-09-24 06:41] LABS: Bedside Glucose 96 mg/dL (74-106)
[2022-09-24] MEDS: Albuterol 2.5 MG/3 ML VIAL.NEB. INHALATION ×4 (06:55→20:10)
[2022-09-24] MEDS: Insulin Lispro 100 UNIT/ML INSULN.PEN 13 UNIT SC (07:55)
[2022-09-24] MEDS: Amiodarone 200 MG Tablet 100 MG PO (07:57)
[2022-09-24] MEDS: Potassium Chloride Oral Tablet 20 MEQ PO ×2 (07:57→17:44)
[2022-09-24] MEDS: Nystatin Ointment 1 APPLIC TOPICAL ×2 (08:41→22:20)
[2022-09-24] MEDS: Ferrous Sulfate 325 MG Tablet PO ×2 (11:36→17:43)
[2022-09-24 11:40] LABS: Bedside Glucose 66 mg/dL (74-106)
[2022-09-24 13:10] LABS: Bedside Glucose 121 mg/dL (74-106)
[2022-09-24 17:06] LABS: Bedside Glucose 179 mg/dL (74-106)
[2022-09-24] MEDS: Insulin Lispro 100 UNIT/ML INSULN.PEN 10 UNIT SC (17:41)
[2022-09-24] MEDS: Tamsulosin HCl 0.4 MG Capsule PO (17:44)
[2022-09-24] MEDS: Jantoven 2 MG Tablet PO (17:47)
[2022-09-24 21:41] LABS: Bedside Glucose 184 mg/dL (74-106)
[2022-09-24] MEDS: Loratadine 10 MG Tablet PO (22:20)
[2022-09-24] MEDS: Atorvastatin Calcium 40 MG Tablet PO (22:20)
[2022-09-24] MEDS: Insulin Glargine-YFGN 100 UNIT/ML Pen 30 UNIT SC (22:24)
[2022-09-25] VITALS (7 sets, daily range): BP systolic 121–130; BP diastolic 60–61; PULSE 46–80; RESP 12–25; TEMP 36.2; O2SAT 94–99
[2022-09-25 05:39] LABS: Prothrombin Time (Protime)PT. 22.3 SECONDS (11.7-14.9)
[2022-09-25] MEDS: Clopidogrel Bisulfate 75 MG Tablet PO (06:16)
[2022-09-25] MEDS: Senna/Docusate Sodium 1 Tablet PO (06:16)
[2022-09-25] MEDS: amLODIPine 10 MG Tablet PO (06:16)
[2022-09-25] MEDS: Levothyroxine 50 MCG Tablet PO (06:16)
[2022-09-25] MEDS: Losartan Potassium 25 MG Tablet PO (06:16)
[2022-09-25] MEDS: Furosemide 40 MG Tablet PO ×2 (06:16→13:18)
[2022-09-25] MEDS: Pantoprazole Sodium 20 MG Tablet PO (06:16)
[2022-09-25] MEDS: Nystatin Ointment 1 APPLIC TOPICAL ×2 (06:17→18:30)
[2022-09-25] MEDS: Metoprolol Tartrate 50 MG Tablet 75 MG PO ×2 (06:17→18:29)
[2022-09-25] MEDS: Cholecalciferol (VIT D3) 25 MCG TABLET (1,000 UNITS) PO (06:19)
[2022-09-25 06:35] LABS: Bedside Glucose 91 mg/dL (74-106)
[2022-09-25] MEDS: Albuterol 2.5 MG/3 ML VIAL.NEB. INHALATION ×3 (06:45→21:05)
[2022-09-25] MEDS: Insulin Lispro 100 UNIT/ML INSULN.PEN 10 UNIT SC ×3 (07:56→18:25)
[2022-09-25] MEDS: Potassium Chloride Oral Tablet 20 MEQ PO ×2 (07:57→18:28)
[2022-09-25] MEDS: Amiodarone 200 MG Tablet 100 MG PO (07:57)
[2022-09-25] MEDS: Empagliflozin 10 MG Tablet PO (07:57)
[2022-09-25] MEDS: predniSONE 10 MG Tablet PO (09:37)
--- NOTE | 2022-09-25 10:14 | NURSING ---
Urinary catheter removed at 0930. 8ml removed from balloon. Tip intact. Pt tolerated well. Urinal provided and Bladder scan protocol initiated.
[2022-09-25] MEDS: Menthol/Lanolin/Calamine/Znox 113 GM Tube 1 APPLIC TOPICAL ×2 (11:22→21:17)
[2022-09-25 11:35] LABS: Bedside Glucose 128 mg/dL (74-106)
[2022-09-25] MEDS: Ferrous Sulfate 325 MG Tablet PO ×2 (13:16→18:26)
[2022-09-25 13:20] LABS: Pathologist Review Reviewed
--- NOTE | 2022-09-25 13:35 | CASEMGMT ---
Social Work Received call from Drea moreno, inquiring about DC plans and sleep study. SW followed up with nursing and no sleep study has been scheduled at this time. Nursing to pursue. Family is wanting to have pt home sooner than later. SW expressed understanding and will work on coordinating O2 and HHC needs. Pt does have f/u appts on 09/28, and goal to DC 09/29 or 09/30. SW to collaborate with IDT on setting DC date. SW to continue to follow. RAYMON MayfieldW
--- NOTE | 2022-09-25 15:03 | WOUNDNOTE ---
wound photo: left lower leg
--- NOTE | 2022-09-25 15:04 | WOUNDNOTE ---
wound photo: left lower leg
--- NOTE | 2022-09-25 15:52 | NURSING ---
Message left with sleep center regarding scheduling sleep study at end of week before discharge. Awaiting callback.
[2022-09-25] MEDS: Jantoven 2 MG Tablet PO (18:27)
[2022-09-25] MEDS: Tamsulosin HCl 0.4 MG Capsule PO (18:28)
[2022-09-25] MEDS: Atorvastatin Calcium 40 MG Tablet PO (21:19)
[2022-09-25] MEDS: Insulin Glargine-YFGN 100 UNIT/ML Pen 30 UNIT SC (21:19)
[2022-09-25] MEDS: Loratadine 10 MG Tablet PO (21:19)
[2022-09-25 21:21] LABS: Bedside Glucose 126 mg/dL (74-106)
[2022-09-25 21:31] LABS: Bedside Glucose 177 mg/dL (74-106)
[2022-09-26] VITALS (10 sets, daily range): BP systolic 136–143; BP diastolic 53–60; PULSE 57–92; RESP 12–20; O2SAT 90–99; BMI 35.2
[2022-09-26] MEDS: Losartan Potassium 25 MG Tablet PO (06:52)
[2022-09-26] MEDS: amLODIPine 10 MG Tablet PO (06:53)
[2022-09-26] MEDS: Furosemide 40 MG Tablet PO ×2 (06:53→14:45)
[2022-09-26] MEDS: Clopidogrel Bisulfate 75 MG Tablet PO (06:54)
[2022-09-26] MEDS: Pantoprazole Sodium 20 MG Tablet PO (06:54)
[2022-09-26] MEDS: Cholecalciferol (VIT D3) 25 MCG TABLET (1,000 UNITS) PO (06:54)
[2022-09-26] MEDS: Levothyroxine 50 MCG Tablet PO (06:54)
[2022-09-26 06:56] LABS: Bedside Glucose 92 mg/dL (74-106)
[2022-09-26] MEDS: Metoprolol Tartrate 50 MG Tablet 75 MG PO ×2 (07:00→18:03)
[2022-09-26] MEDS: Nystatin Ointment 1 APPLIC TOPICAL ×2 (07:02→18:01)
[2022-09-26] MEDS: Albuterol 2.5 MG/3 ML VIAL.NEB. INHALATION ×3 (07:45→19:16)
[2022-09-26] MEDS: Insulin Lispro 100 UNIT/ML INSULN.PEN 10 UNIT SC (07:51)
[2022-09-26] MEDS: Amiodarone 200 MG Tablet 100 MG PO (07:51)
[2022-09-26] MEDS: predniSONE 10 MG Tablet PO (07:52)
[2022-09-26] MEDS: Empagliflozin 10 MG Tablet PO (07:52)
[2022-09-26] MEDS: Potassium Chloride Oral Tablet 20 MEQ PO ×2 (07:52→18:00)
[2022-09-26] MEDS: Menthol/Lanolin/Calamine/Znox 113 GM Tube 1 APPLIC TOPICAL ×2 (07:56→22:05)
--- NOTE | 2022-09-26 10:22 | NURSING ---
Sleep laboratory apparatus glass grinder called back at this time. Reports their next available appt in on October 09 at 1999. She will put patient on waiting list for cancelations and sign him up for this next available time. Also reports she will look into the possibility of getting him a BIPAP before having his sleep study for returning home. She reports she will call Mari with information.
[2022-09-26 11:16] LABS: Bedside Glucose 160 mg/dL (74-106)
[2022-09-26] MEDS: Ferrous Sulfate 325 MG Tablet PO ×2 (11:54→17:59)
[2022-09-26] MEDS: Insulin Lispro 100 UNIT/ML INSULN.PEN 7 UNIT SC ×2 (11:54→18:06)
--- NOTE | 2022-09-26 15:09 | NURSING ---
manager ems calls back and reports SW is working with home care to set up NIV at home and patient may not need sleep study. She reports she will keep current appointment until further notice.
--- NOTE | 2022-09-26 15:50 | CASEMGMT ---
Social Work Received call from dtrDrea, inquiring about setting DC. LACHELLE educated nursing is collaborating with sleep lab for a sleep study and how to obtain proper breathing machine for pt at home in the interim. Dtr stressed importance of getting pt home and by end of the week. LACHELLE assured dtr IDT is working to get further information and this worker will set DC date as soon as all details are confirmed. Sleep study is scheduled October 09. However, unsure how pt will get BIPAP until then. LACHELLE collaborated with acute CM and recommended contacting [employer], Alisha. LACHELLE phoned Alisha and explained pt's situation. Alisha to review chart and contact this worker with suggestion. LACHELLE updated Sumi in Sleep Lab. Will continue to follow. RAYMON MayfieldW
[2022-09-26 16:50] LABS: Bedside Glucose 215 mg/dL (74-106)
[2022-09-26] MEDS: Jantoven 2 MG Tablet PO (17:59)
[2022-09-26] MEDS: Tamsulosin HCl 0.4 MG Capsule PO (18:00)
[2022-09-26 22:00] LABS: Bedside Glucose 226 mg/dL (74-106)
[2022-09-26] MEDS: Atorvastatin Calcium 40 MG Tablet PO (22:04)
[2022-09-26] MEDS: Loratadine 10 MG Tablet PO (22:04)
[2022-09-26] MEDS: Insulin Glargine-YFGN 100 UNIT/ML Pen 20 UNIT SC (22:27)
[2022-09-27] VITALS (10 sets, daily range): BP systolic 106–140; BP diastolic 50–80; PULSE 57–86; RESP 12–22; TEMP 36.6; O2SAT 96–97; BMI 35.4
[2022-09-27 06:46] LABS: Bedside Glucose 132 mg/dL (74-106)
[2022-09-27] MEDS: amLODIPine 10 MG Tablet PO (06:50)
[2022-09-27] MEDS: Cholecalciferol (VIT D3) 25 MCG TABLET (1,000 UNITS) PO (06:50)
[2022-09-27] MEDS: Pantoprazole Sodium 20 MG Tablet PO (06:50)
[2022-09-27] MEDS: Senna/Docusate Sodium 1 Tablet PO ×2 (06:50→17:51)
[2022-09-27] MEDS: Clopidogrel Bisulfate 75 MG Tablet PO (06:50)
[2022-09-27] MEDS: Levothyroxine 50 MCG Tablet PO (06:50)
[2022-09-27] MEDS: Metoprolol Tartrate 50 MG Tablet 75 MG PO ×2 (06:51→17:52)
[2022-09-27] MEDS: Furosemide 40 MG Tablet PO ×2 (06:52→14:20)
[2022-09-27] MEDS: Losartan Potassium 25 MG Tablet PO (06:53)
[2022-09-27] MEDS: Nystatin Ointment 1 APPLIC TOPICAL ×2 (06:53→17:56)
[2022-09-27] MEDS: Insulin Lispro 100 UNIT/ML INSULN.PEN 7 UNIT SC ×3 (06:57→17:51)
[2022-09-27] MEDS: Albuterol 2.5 MG/3 ML VIAL.NEB. INHALATION ×3 (08:15→20:45)
[2022-09-27] MEDS: Potassium Chloride Oral Tablet 20 MEQ PO ×2 (08:56→17:51)
[2022-09-27] MEDS: Amiodarone 200 MG Tablet 100 MG PO (08:56)
[2022-09-27] MEDS: predniSONE 10 MG Tablet PO (08:56)
[2022-09-27] MEDS: Empagliflozin 10 MG Tablet PO (08:56)
[2022-09-27] MEDS: Menthol/Lanolin/Calamine/Znox 113 GM Tube 1 APPLIC TOPICAL ×2 (08:57→22:02)
[2022-09-27 11:46] LABS: Bedside Glucose 182 mg/dL (74-106)
--- NOTE | 2022-09-27 11:52 | CASEMGMT ---
Addendum entered by Rola Chacko 09/27/22 11:58: Notified [facility] Palliative of DC date via email. Original Note: Social Work SW met with Alisha, from [facility], to review pt's needs at DC. Alisha also met with the pt and family on needs. Frantz to proceed with paperwork and approval for trilogy/NIV at home. Frantz to deliver and set up unit at pt's home and service pt's existing concentrator. Alisha and Sleep Lab recommending moving up pt's pulmonology appt for Dr to provide additional instructions if a sleep stuffy is needed, and monitor use of NIV. LACHELLE notified nursing to request rescheduling appt prior to December. SW also requested overnight trending pulse ox to determine pt's O2 liter flow at night. Equipment can be in place and all agreeable to DC 09/29. LACHELLE spoke with dtrRatna, in room to confirm all needs and set DC date. Dtr agreeable and expressed appreciation. LACHELLE received acceptance from [facility] referrals from [place] and [facility]. [facility] cannot service pt's address. Dtr has no preference, requesting the [facility] company with highest star rating which is [facility]. SW updated [place] and [facility]. Family has all over DME and can transport pt. Plan: DC home 09/29 with [facility] trineo and [facility] PT/OT/SN Rola Chacko, RAYMON LAW LIBRARIAN
[2022-09-27] MEDS: Ferrous Sulfate 325 MG Tablet PO ×2 (11:56→17:52)
--- NOTE | 2022-09-27 12:21 | NURSING ---
Insulin pen education provided to caregiver. Caregiver able to demonstrate correct procedure and administer insulin with assist from nurse. Re-enforce needed to ensure caregiver comfort.
--- NOTE | 2022-09-27 14:50 | NURSING ---
Contacted R.T. for Bipap settings, per their report pt is with 35% O2
--- NOTE | 2022-09-27 16:38 | PCM.TCUNOT ---
Subjective Subjective Resident requires volume ventilation and all other alternative therapies, including bilevel with back up rate, have been considered and ruled out due to severity of the disease state, weak breathing muscles and potential life threatening condition including CO2 retention probability of acute exacerbation, patient requires ventilation to be used during the day as needed, in addition to every night usage with face mask. Objective Data Objective Data Vital Signs: Vital Signs Temp Pulse Resp BP Pulse Ox O2 Del Method O2 Flow Rate 97.9 F 75 18 113/53 L 97 Nasal Cannula 2 09/27/22 14:00 09/27/22 15:30 09/27/22 15:30 09/27/22 14:00 09/27/22 14:00 09/27/22 14:00 09/27/22 14:00 FiO2 35 09/27/22 03:10 Oxygen Flow Rate (L/min) 2 Oxygen Delivery Method Nasal Cannula Weight: 98.248 kg Body Mass Index (BMI) 35.4 Intake & Output: Intake and Output for Last 24 Hours 09/25/22 09/26/22 09/27/22 23:59 23:59 23:59 Intake Total 840 / 840 720 / 720 360 / 360 Output Total 1547 / 1547 950 / 950 825 / 825 Balance -707 / -707 -230 / -230 -465 / -465 Lab / Micro Data Result Diagrams: 09/23/22 06:32 09/23/22 06:32 Labs: Laboratory Results - last 24 hr 09/26/22 16:05: POC Glucose 215 H 09/26/22 21:35: POC Glucose 226 H 09/27/22 06:25: POC Glucose 132 H 09/27/22 11:27: POC Glucose 182 H Micro: Microbiology 09/19/22 06:30 Nasal Secretion SARS-CoV-2 Antigen (Rapid) - Final 09/17/22 05:45 Nasal Secretion SARS-CoV-2 Antigen (Rapid) - Final Assessment & Plan Assessment/Plan (1) Obesity hypoventilation syndrome: PLAN: Plan As above.
[2022-09-27 17:15] LABS: Bedside Glucose 180 mg/dL (74-106)
[2022-09-27] MEDS: Jantoven 2 MG Tablet PO (17:51)
[2022-09-27] MEDS: Tamsulosin HCl 0.4 MG Capsule PO (17:52)
--- NOTE | 2022-09-27 18:36 | PCM.DC.SUM ---
Providers Date of Admission: 09/15/22 Primary Care Physician: Dr. Eric Newton MD Consultations 09/17/22 03:23 Consult: Onc/Wound/peanut blancher Routine Comment: Cellulitis- several blistered areas to LLE 09/17/22 13:51 Consult: Infectious Disease Routine Consulting Provider: Ambrocio Wong Reason for Consult: Cellulitis EMERGENT Consult: No MD Notified: Yes Date Notified: 09/17/22 Time Notified: 13:51 Method of Notification: Answering Service 09/20/22 12:04 Consult: Hospice / Palliative Care Routine Consulting Provider: [facility] Reason for Consult: PALLIATIVE - resp. failure, hypoxia, new O2, CKD. family request. EMERGENT Consult: No MD Notified: Yes Date Notified: 09/20/22 Time Notified: 12:04 Method of Notification: Text Reason For Visit: CELLULITIS/SEPSIS Diagnosis Discharge Diagnosis (1) Obesity hypoventilation syndrome: Status: Acute Code(s): E66.2 - Morbid (severe) obesity with alveolar hypoventilation Plan As above. Medications at Discharge Home Medications omeprazole 20 mg capsule,delayed release 20 mg PO DAILY gerd 07/02/18 ferrous sulfate 325 mg (65 mg iron) tablet 325 mg PO BID anemia 02/19/20 valsartan 80 mg tablet 80 mg PO DAILY hypertension 11/17/21 amlodipine 10 mg tablet 10 mg PO DAILY heart 02/27/22 cholecalciferol (vitamin D3) 25 mcg (1,000 unit) tablet 25 mcg PO DAILY health maintenence 02/27/22 albuterol sulfate 2.5 mg/3 mL (0.083 %) solution for nebulization 2.5 mg (3 mL) inhalation Q4H PRN SOB/WHEEZING #0 mL 09/15/22 amiodarone 200 mg tablet 100 mg PO DAILY heart 09/15/22 atorvastatin 40 mg tablet 40 mg PO QHS cholesterol 09/15/22 cetirizine 10 mg capsule 10 mg PO HS allergies 09/15/22 clopidogrel 75 mg tablet 75 mg PO DAILY 30 days #30 tabs 09/27/22 empagliflozin 10 mg tablet (Jardiance) 10 mg PO DAILY@0800 30 days #30 tabs 09/27/22 furosemide 40 mg tablet 40 mg PO BIDLX 30 days #60 tabs 09/27/22 insulin glargine-yfgn 100 unit/mL (3 mL) subcutaneous pen 20 unit (0.2 mL) subcut QHS 30 days #6 mL 09/27/22 insulin lispro 100 unit/mL subcutaneous pen (Humalog KwikPen (U-100) Insulin) 7 unit (0.07 mL) subcut TIDAC 30 days #9 mL 09/27/22 levothyroxine 50 mcg tablet 50 mcg PO 0600 30 days #30 tabs 09/27/22 metoprolol tartrate 50 mg tablet 75 mg PO BID 30 days #90 tabs 09/27/22 potassium chloride 20 mEq tablet,extended release(part/cryst) (Klor-Con M) 20 meq PO BIDCM 30 days #60 tabs 09/27/22 prednisone 10 mg tablet 10 mg PO DAILYCM 30 days #30 tabs 09/27/22 tamsulosin 0.4 mg capsule 0.4 mg PO DAILY@1730 30 days #30 caps 09/27/22 warfarin 2 mg tablet (Jantoven) 2 mg PO 1700 #0 tabs 09/27/22 Hospital Course Operations None Procedures None Summary of Care Provided Minutes Spent on Discharge: 35 Hospital Course: 81 year old male with below past medical history hospitalized for acute delirium secondary to sepsis from left lower extremity cellulitis, complicated by acute respiratory failure with hypoxia, acute kidney injury, right sided stroke, admitted to TCU with debility, here for rehabilitation, strengthening, prior to discharge home with . Resident home CPAP inadequate. Discharge home 09/29/2022 with [facility] Care PT/OT/SN. Physical Exam Const alert General Appearance: cooperative HEENT normocephalic Eyes PERRL and EOMs intact bilaterally Neck supple, no JVD and no carotid bruits Resp normal respiratory effort, normal air movement and clear to auscultation bilaterally Cardio regular rate and regular rhythm GI normal to inspection, nondistended, normoactive bowel sounds, non-tender and non-distended Extremity normal capillary refill General Extremity: Negative for edema Skin no rashes or lesions noted General Skin Exam: no breakdown Psych affect normal Appearance: appropriate Weight / BMI Weight Weight: 98.248 kg Body Mass Index (BMI) 35.4 ABG / Lab / Microbiology Data Result Diagrams: 09/23/22 06:32 09/23/22 06:32 Laboratory: Laboratory Results - last 24 hr 09/26/22 21:35: POC Glucose 226 H 09/27/22 06:25: POC Glucose 132 H 09/27/22 11:27: POC Glucose 182 H 09/27/22 16:56: POC Glucose 180 H Microbiology: Microbiology 09/19/22 06:30 Nasal Secretion SARS-CoV-2 Antigen (Rapid) - Final 09/17/22 05:45 Nasal Secretion SARS-CoV-2 Antigen (Rapid) - Final D/C Instructions Discharge Diet: No restrictions Discharge Activity: Return to Normal Activity, May Shower and Use Walker Weight Bearing Status: Weight bearing as tolerated Call your doctor if you observe: Fever of 101 or Higher, Inability to urinate, Inability to have a bowel movement, Shortness of breath, Dizziness, Fainting spells, Swelling in the ankles, Chest pain and Uncontrolled pain Additional Instructions: Discharge home 09/29/2022 with [facility] Care PT/OT/SN. Please Follow Up With: Omero Be MD When: 4 weeks. Meaningful Use Info Meaningful Use Diagnoses (Choose all that apply): Ischemic CVA CVA Therapy Assessed for PT,OT and/or ST?: Yes Ischemic Stroke Antithrombotic order at d/c?: Yes Dx of Atrial fib/flutter?: Yes Anticoagulant at discharge?: Yes Statins at discharge?: Yes Primary Dx Acute Ischemic CVA?: Yes IV tPA ordered during stay?: No Reason IV t-PA not ordered: Treatment not Indicated Discharge Plan Admission Admit Date/Time: 09/15/22 15:00 Primary Reason for Your Visit: Debility. Attending Provider: Mickey Torres Chi Primary Care Provider: Eric Newton Consulting Providers: Ambrocio Wong ; Nataly Aguilar ; Mateo Trujillo ; Nirali Reyes ; Dayana Tavarez ; Alison Mccauley DEPUTY REGISTER OF DEEDS Instructions Additional Instructions / Restrictions: Discharge home 09/29/2022 with [facility] Care PT/OT/SN. Discharge Orders/Prescriptions Prescriptions: New furosemide 40 mg Tablet 40 mg PO BIDLX 30 Days Qty: 60 0RF prednisone 10 mg Tablet 10 mg PO DAILYCM 30 Days Qty: 30 0RF clopidogrel 75 mg Tablet 75 mg PO DAILY 30 Days Qty: 30 0RF potassium chloride [Klor-Con M20] 20 mEq Tablet,Er Particles/Crystals 20 meq PO BIDCM 30 Days Qty: 60 0RF levothyroxine 50 mcg Tablet 50 mcg PO 0600 30 Days Qty: 30 0RF warfarin [Jantoven] 2 mg Tablet 2 mg PO 1700 Qty: 0 0RF metoprolol tartrate 50 mg Tablet 75 mg PO BID 30 Days Qty: 90 0RF Jardiance 10 mg Tablet 10 mg PO DAILY@0800 30 Days Qty: 30 0RF tamsulosin 0.4 mg Capsule 0.4 mg PO DAILY@1730 30 Days Qty: 30 0RF insulin lispro [Humalog KwikPen Insulin] 100 unit/mL Insulin Pen 7 unit subcut TIDAC 30 Days Qty: 9 0RF insulin glargine-yfgn 100 unit/mL (3 mL) Insulin Pen 20 unit subcut QHS 30 Days Qty: 6 0RF Continued valsartan 80 mg tablet 80 mg PO DAILY amlodipine 10 mg tablet 10 mg PO DAILY cholecalciferol (vitamin D3) 25 mcg (1,000 unit) tablet 25 mcg PO DAILY omeprazole 20 MG capsule 20 mg PO DAILY albuterol sulfate 2.5 mg /3 mL (0.083 %) Solution For Nebulization 2.5 mg inhalation Q4H PRN (Reason: SOB/WHEEZING) Qty: 0 0RF atorvastatin 40 mg tablet 40 mg PO QHS amiodarone 200 mg tablet 100 mg PO DAILY cetirizine 10 mg capsule 10 mg PO HS ferrous sulfate 325 mg (65 mg iron) tablet 325 mg PO BID Discontinued tizanidine 4 mg capsule 4 mg PO Q8H PRN (Reason: Pain) aspirin 81 MG tablet,chewable 81 mg PO DAILY@0800 warfarin 2 mg Tablet 2 mg PO SUTUWEFRSA acetaminophen 500 mg Tablet 500 mg PO Q6H PRN (Reason: Pain) acetaminophen [Tylenol] 325 mg Tablet 650 mg PO Q4H PRN PRN (Reason: Pain 1-10 Or Fever) Qty: 0 0RF Glucagon Emergency Kit (human) 1 mg Recon Soln 1 mg IM X1 PRN (Reason: Hypoglycemia) Qty: 0 0RF furosemide 40 mg tablet 40 mg PO DAILY metoprolol tartrate 100 mg tablet 100 mg PO BID prednisone 5 mg tablet 10 mg PO DAILY clopidogrel 75 mg tablet 75 mg PO DAILY potassium chloride [Klor-Con M20] 20 mEq tablet,ER particles/crystals 20 meq PO BIDCM levothyroxine 50 mcg tablet 50 mcg PO 0600 cephalexin 500 mg capsule 500 mg PO TID insulin lispro [Humalog KwikPen Insulin] 100 unit/mL insulin pen See Protocol subcut [facility] Protocol: 1. Sliding Scale Insulin Low Dosing Condition: 150-224 mg/dl = 1 unit Condition: 225-299 mg/dl = 2 units Condition: 300-374 mg/dl = 3 units Condition: 375-499 mg/dl = 4 units Condition: Greater than 449 call physician Protocol Text: - Use for Total Daily Dose of Insulin 15-27 units - Thin, elderly, renal patients LOW DOSING ALGORITHM Glucerna 1.2 Gabriel 0.06-1.2 gram-kcal/mL liquid 120 ml PO TIDCM Jardiance 10 mg tablet 10 mg PO DAILY Referrals / Follow Up: Floyd Cruz DO [Med Staff - Active Staff] - 10/03/22 7:45 am Eric Newton MD [Primary Care Provider] - Disposition Disposition (needs filled in before D/C Order can be placed): Home Health Service
[2022-09-27] MEDS: Loratadine 10 MG Tablet PO (22:01)
[2022-09-27] MEDS: Atorvastatin Calcium 40 MG Tablet PO (22:01)
[2022-09-27] MEDS: Insulin Glargine-YFGN 100 UNIT/ML Pen 20 UNIT SC (22:01)
[2022-09-27 22:41] LABS: Bedside Glucose 209 mg/dL (74-106)
[2022-09-28] VITALS (11 sets, daily range): BP systolic 114–124; BP diastolic 58–60; PULSE 44–87; RESP 12–21; TEMP 36.4; O2SAT 93–98; BMI 32.7
--- NOTE | 2022-09-28 03:30 | NURSING ---
RT stating she needs more information to complete ABGs. When does this need done? On RA? After bipap off for length of time? Left note for MD to address.
[2022-09-28 06:16] LABS: International Normalized Ratio 2.3; Prothrombin Time (Protime)PT. 24.7 SECONDS (11.7-14.9)
[2022-09-28] MEDS: Losartan Potassium 25 MG Tablet PO (06:33)
[2022-09-28] MEDS: Senna/Docusate Sodium 1 Tablet PO ×2 (06:33→17:28)
[2022-09-28] MEDS: Furosemide 40 MG Tablet PO ×2 (06:33→17:25)
[2022-09-28] MEDS: Clopidogrel Bisulfate 75 MG Tablet PO (06:33)
[2022-09-28] MEDS: amLODIPine 10 MG Tablet PO (06:33)
[2022-09-28] MEDS: Metoprolol Tartrate 50 MG Tablet 75 MG PO ×2 (06:33→17:27)
[2022-09-28] MEDS: Cholecalciferol (VIT D3) 25 MCG TABLET (1,000 UNITS) PO (06:34)
[2022-09-28] MEDS: Levothyroxine 50 MCG Tablet PO (06:34)
[2022-09-28] MEDS: Pantoprazole Sodium 20 MG Tablet PO (06:34)
[2022-09-28] MEDS: Nystatin Ointment 1 APPLIC TOPICAL ×2 (06:35→21:02)
[2022-09-28 06:56] LABS: Bedside Glucose 109 mg/dL (74-106)
[2022-09-28] MEDS: Albuterol 2.5 MG/3 ML VIAL.NEB. INHALATION ×3 (07:25→19:18)
[2022-09-28] MEDS: Potassium Chloride Oral Tablet 20 MEQ PO ×2 (08:06→17:26)
[2022-09-28] MEDS: Empagliflozin 10 MG Tablet PO (08:06)
[2022-09-28] MEDS: predniSONE 10 MG Tablet PO (08:06)
[2022-09-28] MEDS: Amiodarone 200 MG Tablet 100 MG PO (08:06)
[2022-09-28] MEDS: Insulin Lispro 100 UNIT/ML INSULN.PEN 7 UNIT SC ×3 (08:07→17:43)
--- NOTE | 2022-09-28 09:58 | MDS.RN ---
Information for the mds was obtained from review of the clinical record, interview of resident, staff, and direct observation of resident's care.
[2022-09-28] MEDS: Ferrous Sulfate 325 MG Tablet PO ×2 (11:12→17:25)
[2022-09-28] MEDS: Menthol/Lanolin/Calamine/Znox 113 GM Tube 1 APPLIC TOPICAL ×2 (11:12→21:02)
[2022-09-28 11:16] LABS: Bedside Glucose 214 mg/dL (74-106)
--- NOTE | 2022-09-28 13:01 | NURSING ---
Addendum entered by Jamison Mena 09/28/22 15:20: PT RETURNED FROM APPOINTMENT AT 1445. NNO AT THIS TIME. Original Note: Pt left floor at [address] Godoy office by w/c, family is taking.
--- NOTE | 2022-09-28 16:19 | NURSING ---
Addendum entered by Jamison Mena 09/28/22 17:07: PT RETURNED FROM APPOINTMENT. FAMILY STATED NURSE FROM OFFICE WILL GET CALL US ON POSSIBLE CT SCAN TO BE DONE BEFORE PT LEAVES. Original Note: pt left by wheel chair to next appointment. family taking.
[2022-09-28] MEDS: Tamsulosin HCl 0.4 MG Capsule PO (17:26)
[2022-09-28] MEDS: Jantoven 2 MG Tablet PO (17:31)
[2022-09-28 17:41] LABS: Bedside Glucose 161 mg/dL (74-106)
[2022-09-28] MEDS: Insulin Glargine-YFGN 100 UNIT/ML Pen 20 UNIT SC (20:49)
[2022-09-28] MEDS: Atorvastatin Calcium 40 MG Tablet PO (20:51)
[2022-09-28] MEDS: Loratadine 10 MG Tablet PO (20:52)
[2022-09-28 21:31] LABS: Bedside Glucose 155 mg/dL (74-106)
[2022-09-29] VITALS (8 sets, daily range): BP systolic 101–129; BP diastolic 50–54; PULSE 52–76; RESP 12–20; TEMP 36.3; O2SAT 93–100; BMI 35.7
[2022-09-29 01:56] LABS: Blood Gas Specimen Type VEN; O2 Delivery Device BiPAP; PEEP 13; PIP 17; RR 12; SITE R Radial; VBG BASE EXCESS 2 mmol/L (-1.0-3.5); VBG Bicarbonate 27 mmol/L (22-26); VBG PO2 37 mmHg (25-40); VBG SO2 71 % (50-70); VBG TCO2 29 mmol/L (23-33); VBG pCO2 43.9 mmHg (41-51)
[2022-09-29] MEDS: Cholecalciferol (VIT D3) 25 MCG TABLET (1,000 UNITS) PO (05:34)
[2022-09-29] MEDS: Clopidogrel Bisulfate 75 MG Tablet PO (05:35)
[2022-09-29] MEDS: Losartan Potassium 25 MG Tablet PO (05:35)
[2022-09-29] MEDS: Senna/Docusate Sodium 1 Tablet PO (05:35)
[2022-09-29] MEDS: Levothyroxine 50 MCG Tablet PO (05:35)
[2022-09-29] MEDS: Furosemide 40 MG Tablet PO (05:35)
[2022-09-29] MEDS: amLODIPine 10 MG Tablet PO (05:35)
[2022-09-29] MEDS: Pantoprazole Sodium 20 MG Tablet PO (05:35)
[2022-09-29] MEDS: Metoprolol Tartrate 50 MG Tablet 75 MG PO (05:36)
[2022-09-29] MEDS: Nystatin Ointment 1 APPLIC TOPICAL (05:42)
[2022-09-29 06:51] LABS: Bedside Glucose 87 mg/dL (74-106)
[2022-09-29] MEDS: Albuterol 2.5 MG/3 ML VIAL.NEB. INHALATION ×2 (08:07→11:20)
[2022-09-29] MEDS: Insulin Lispro 100 UNIT/ML INSULN.PEN 7 UNIT SC ×2 (08:47→11:49)
[2022-09-29] MEDS: Amiodarone 200 MG Tablet 100 MG PO (08:48)
[2022-09-29] MEDS: Empagliflozin 10 MG Tablet PO (08:48)
[2022-09-29] MEDS: predniSONE 10 MG Tablet PO (08:49)
[2022-09-29] MEDS: Potassium Chloride Oral Tablet 20 MEQ PO (08:49)
[2022-09-29 09:06] LABS: Bedside Glucose 173 mg/dL (74-106)
[2022-09-29] MEDS: Menthol/Lanolin/Calamine/Znox 113 GM Tube 1 APPLIC TOPICAL (09:11)
[2022-09-29] MEDS: Pneumococcal Vaccine 20 Valent 0.5 ML Syringe IM (10:00)
--- NOTE | 2022-09-29 10:19 | NURSING ---
This nurse administered Prevnar 20 vaccine per order in L Deltoid. Safety sheet given to pt and consent given. Pt tom. injection well.
--- NOTE | 2022-09-29 10:30 | WOUNDNOTE ---
the redness and edema to the LLE have greatly improved. plan is for patient to discharge home today with family. pt very appreciative of care. pt denies further questions or concerns at this time.
[2022-09-29] MEDS: Ferrous Sulfate 325 MG Tablet PO (11:32)
[2022-09-29 11:35] LABS: Bedside Glucose 145 mg/dL (74-106)
--- NOTE | 2022-09-29 11:52 | CASEMGMT ---
Social Work BIMS and PHQ-9 completed for MDS assessment. Rola Chacko, [employer] DATA ANALYTICS ARCHITECT
== END 2022-09-29 12:35 | disposition home health service (06) | DRG 602 ==
PROVIDERS: Admitting Provider Family Medicine Geriatric Medicine; PCP Family Medicine; Visit Provider Family Medicine Geriatric Medicine
DX: L03.116 Cellulitis of left lower limb (principal); J96.01 Acute respiratory failure with hypoxia; I13.0 Hypertensive heart and chronic kidney disease with heart failure and stage 1 through stage 4 chronic kidney disease, or unspecified chronic kidney disease; E66.2 Morbid (severe) obesity with alveolar hypoventilation; I50.32 Chronic diastolic (congestive) heart failure; I42.9 Cardiomyopathy, unspecified; E11.22 Type 2 diabetes mellitus with diabetic chronic kidney disease; D50.9 Iron deficiency anemia, unspecified; N18.32 Chronic kidney disease, stage 3b; Z79.4 Long term (current) use of insulin; I48.0 Paroxysmal atrial fibrillation; G47.30 Sleep apnea, unspecified; I25.10 Atherosclerotic heart disease of native coronary artery without angina pectoris; E55.9 Vitamin D deficiency, unspecified; E03.9 Hypothyroidism, unspecified; K21.9 Gastro-esophageal reflux disease without esophagitis; E78.5 Hyperlipidemia, unspecified; Z95.5 Presence of coronary angioplasty implant and graft; Z79.01 Long term (current) use of anticoagulants; Z79.82 Long term (current) use of aspirin; Z79.02 Long term (current) use of antithrombotics/antiplatelets; Z79.890 Hormone replacement therapy; Z23 Encounter for immunization; Z68.38 Body mass index [BMI] 38.0-38.9, adult; Z99.81 Dependence on supplemental oxygen
CPT/HCPCS: 36415; 36600; 74018; 80048; 82803; 82962; 85025; 85610; 87811; 90677; 92526; 92610; 94002; 94003; 94640; 94668; 94762; 97110; 97116; 97162; 97165; 97530; 97535; 97802; A4216

== ENCOUNTER → 2022-09-29 | Outpatient (CLI) | payer SELFPAY, OTHER ==
--- NOTE | 2022-09-29 10:33 | CT_ITS ---
STUDY: CTA HEAD AND NECK WITH CONTRAST REASON FOR EXAM: Male, 81 years old. Carotid stenosis, stroke, pre-op planning RADIATION DOSAGE (If Supplied By Facility): CTDIvol = ( 31.49 ) mGy, DLP = ( 1686.88 ) mGycm TECHNIQUE: CT angiography was performed with a multi-detector CT scanner. Data acquisition was obtained from the skull base through the vertex following intravenous administration of IV 100mL Isovue-370. MIP images were reconstructed from the axial data set. Post-processing of the angiographic images was performed, with multiplanar reformation and 3D reconstruction. Individualized dose optimization techniques were used for this CT. COMPARISON: No relevant priors. FINDINGS: Normal bilateral petrous carotid arteries. There is calcified plaque formation of the right cavernous carotid artery, with a mild stenosis (less than 50%). There is calcified plaque formation of the left cavernous carotid artery, with a mild stenosis (less than 50%). There is hypoplastic development of the right A1 segment of the anterior cerebral arteries with an atretic but intact artery. Normal left A1 segments of the anterior cerebral artery. Normal intact anterior communicating artery (ACOM). Normal bilateral A2 segments of the anterior cerebral arteries. Normal right M1 and M2 segments of the middle cerebral arteries, with a normal M1 bifurcation. Normal left M1 and M2 segments of the middle cerebral arteries, with a normal M1 bifurcation. Normal right posterior communicating artery (PCOM). Normal left posterior communicating artery (PCOM). Normal bilateral vertebral arteries. Normal basilar artery with a normal basilar bifurcation. The visualized bilateral superior cerebellar (SCA) arteries are normal. Normal bilateral P1, P2 and visualized P3 segments of the posterior cerebral arteries. There is no demonstrated aneurysm of the [place]. Mild degree of cerebral atrophy. Tiny liquids are seen in the basal ganglia bilaterally slightly more prominent on the right side. AORTIC ARCH: There is atherosclerotic calcific plaque formation of the aortic arch and great vessels arising from the aortic arch, without a hemodynamically significant stenosis. There is a normal origin of the brachiocephalic, left common carotid, and left subclavian arteries. Atherosclerotic calcific plaque formation at the origin of the right brachiocephalic artery as well as the left subclavian and left common carotid artery. RIGHT CAROTID ARTERIES: There is atherosclerotic plaque formation of the common carotid artery, but without a hemodynamically significant stenosis. Normal right common carotid bulb. There is severe atherosclerotic plaque formation of the origin of the right internal carotid artery with a near complete occlusion. Normal visualized cervical portion of the right internal carotid artery. Normal origin of the right external carotid artery (ECA). LEFT CAROTID ARTERIES: There is atherosclerotic plaque formation of the common carotid artery, but without a hemodynamically significant stenosis. Normal left common carotid bulb. There is severe atherosclerotic plaque formation of the origin of the left internal carotid artery with a near complete occlusion. Normal visualized cervical portion of the left internal carotid artery. Normal origin of the left external carotid artery (ECA). VERTEBRAL ARTERIES: Normal bilateral vertebral arteries. CT/CTA Head AND Neck W/ Contrast IMPRESSION: High-grade stenosis at the origin of both the right and left internal carotid arteries caused by calcified plaques. Electronically Signed: Bacilio Mitchell MD at 12:35 EST ,
== END | disposition home or self-care (01) ==
PROVIDERS: PCP Family Medicine; Visit Provider Surgery Trauma Surgery
DX: I65.23 Occlusion and stenosis of bilateral carotid arteries (principal); Z86.73 Personal history of transient ischemic attack (TIA), and cerebral infarction without residual deficits
CPT/HCPCS: 70496; 70498; Q9967

== ENCOUNTER → 2022-10-03 | Outpatient (CLI) | payer OTHER, SELFPAY ==
[2022-10-03 09:20] LABS: Anion Gap 6 (5-15); BUN 31 mg/dL (7-18); BUN/Creat Ratio 20.4 RATIO (10-20); Calcium,Total 8.7 mg/dL (8.5-10.1); Chloride 105 mmol/L (98-107); Creatinine, Serum 1.52 mg/dL (0.70-1.30); EST Glomerular Filtration Rate 47 mL/min (>60); Est Glom Filt Rate - Afr Amer 57 mL/min (>60); Glucose 162 mg/dL (74-106); Potassium 3.5 mmol/L (3.5-5.1); Sodium Level 141 mmol/L (136-145)
== END | disposition home or self-care (01) ==
LOC: LAB 08:45
PROVIDERS: PCP Family Medicine; Visit Provider Nurse Practitioner Family
DX: I50.22 Chronic systolic (congestive) heart failure (principal)
CPT/HCPCS: 36415; 80048

== ENCOUNTER → 2022-10-05 | Outpatient (CLI) | payer OTHER, SELFPAY | END | disposition home or self-care (01) | LOC: SL 13:42 | PROVIDERS: PCP Family Medicine; Referring Provider Internal Medicine Critical Care Medicine; Visit Provider Internal Medicine Critical Care Medicine | DX: R09.02 Hypoxemia (principal) | CPT/HCPCS: 94762 ==

== ENCOUNTER → 2022-10-12 | Outpatient (CLI) | payer OTHER, SELFPAY ==
[2022-10-12 12:10] LABS: BNP,B-Type NATRIURETIC PEPTIDE 108.8 pg/mL (0-100)
[2022-10-12 12:13] LABS: Anion Gap 7 (5-15); BUN 39 mg/dL (7-18); BUN/Creat Ratio 23.5 RATIO (10-20); Chloride 104 mmol/L (98-107); Creatinine, Serum 1.66 mg/dL (0.70-1.30); EST Glomerular Filtration Rate 43 mL/min (>60); Est Glom Filt Rate - Afr Amer 52 mL/min (>60); Glucose 62 mg/dL (74-106); Potassium 3.4 mmol/L (3.5-5.1); Sodium Level 140 mmol/L (136-145)
== END | disposition home or self-care (01) ==
LOC: LAB 11:06
PROVIDERS: Nurse Practitioner Gerontology; PCP Family Medicine; Visit Provider Nurse Practitioner Family
DX: I50.22 Chronic systolic (congestive) heart failure (principal); N18.30 Chronic kidney disease, stage 3 unspecified
CPT/HCPCS: 36415; 80048; 83880

== ENCOUNTER → 2022-10-17 | Outpatient (CLI) | payer SELFPAY, OTHER ==
[2022-10-17 08:15] VITALS: PULSE 65; PULSE 66; PULSE 78; PULSE 80; PULSE 85; PULSE 86; O2SAT 86; O2SAT 93; O2SAT 96; O2SAT 98; O2SAT 99
--- NOTE | 2022-10-17 09:56 | CPS ---
Patient was recently discharged from the hospital with home oxygen. Patient came in on RA with SpO2 of 96%. Patient started to walk with walker and at the 1 min check on RA, patient's SpO2 dropped to 86%. 2L was added and was continued through the rest of the test. Patient only walked for 4 minutes because that is more than the patient walks on a day to day basis. Teresita LEGAL EXECUTIVE
--- NOTE | 2022-10-17 15:05 | PCM.PSN.6M ---
PSN 6 Minute Walk Test 6 Minute Walk Test 6 Minute Walk Test: 6 Minute Walk Test PSN:6-Minute Walk Test Start: 10/17/22 09:53 Freq: Status: Active Protocol: RESP.6MINW Document 10/17/22 08:15 JR (Rec: 10/17/22 09:59 JR Desktop) 6 Minute Walk Test Date Performed 10/17/22 Time Performed 08:15 Height 5 ft 5 in Weight: 93.894 kg Weight in Pounds 207.[address]: Floyd Cruz Assistive device used: Walker Pre-test Oxygen Delivery Method Room Air Pulse Ox (%) 96 Pulse Rate (60-100 beats/min) 66 Dyspnea Fariba Scale (0-10) 0 Exertion Fariba Scale (6-20) 6 1st minute Oxygen Delivery Method Room Air Pulse Ox (%) 86 Pulse Rate (60-100 beats/min) 78 2nd minute Oxygen Flow Rate (L/min) (L/min) 2 Oxygen Delivery Method Nasal Cannula Pulse Ox (%) 98 Pulse Rate (60-100 beats/min) 85 3rd minute Oxygen Flow Rate (L/min) (L/min) 2 Oxygen Delivery Method Nasal Cannula Pulse Ox (%) 93 Pulse Rate (60-100 beats/min) 80 4th minute Oxygen Flow Rate (L/min) (L/min) 2 Oxygen Delivery Method Nasal Cannula Pulse Ox (%) 96 Pulse Rate (60-100 beats/min) 86 Dyspnea Fariba Scale (0-10) 3 Exertion Fariba Scale (6-20) 11 Post-test Oxygen Flow Rate (L/min) (L/min) 2 Oxygen Delivery Method Nasal Cannula Pulse Ox (%) 99 Pulse Rate (60-100 beats/min) 65 Full Laps Walked 4 Partial Lap, Number of Tiles Walked 0 Total Distance Walked (ft) 236 10/17/22 09:56 Cardiopulmonary Services by Teresita Jo Patient was recently discharged from the hospital with home oxygen. Patient came in on RA with SpO2 of 96%. Patient started to walk with walker and at the 1 min check on RA, patient's SpO2 dropped to 86%. 2L was added and was continued through the rest of the test. Patient only walked for 4 minutes because that is more than the patient walks on a day to day basis. Teresita ROSALES Initialized on 10/17/22 09:56 - END OF NOTE Interpretation Interpretation: The patient was noted to be 96% on room air at rest. However, patient desaturated to 86% within the first minute of ambulation and was placed on 2 L/min with improvement to 98%. The patient then walked for an additional 3 minutes. In summary, patient traveled 236 feet over the course of 6 minutes with the assistance of a walker and 1 break. The patient did state that this is much more than he would walk on a normal basis. These findings are consistent with a respiratory and musculoskeletal limitation exercise tolerance. Recommendations Recommendations: The patient requires no supplemental oxygen at rest, but should be using 2 L/min with any exertion
== END | disposition home or self-care (01) ==
PROVIDERS: PCP Family Medicine; Referring Provider Internal Medicine Critical Care Medicine; Visit Provider Internal Medicine Critical Care Medicine
DX: R09.02 Hypoxemia (principal)
CPT/HCPCS: 94618

== ENCOUNTER 2022-11-03 05:49 | Inpatient (IN) | payer SELFPAY, OTHER ==
[2022-11-03] VITALS (19 sets, daily range): BP systolic 106–137; BP diastolic 37–66; PULSE 50–69; RESP 12–23; TEMP 36.2–36.7; O2SAT 93–100; BMI 35.9
[2022-11-03 06:21] LABS: INR Fingerstick 2.4; Prothrombin Time Fingerstick 26.4 SEC (11.7-14.9)
[2022-11-03 07:05] LABS: Bedside Glucose 131 mg/dL (74-106)
[2022-11-03 07:07] LABS: International Normalized Ratio 2.2; Prothrombin Time (Protime)PT. 23.7 SECONDS (11.7-14.9)
[2022-11-03] MEDS: Lactated Ringers 1,000 ML 15 ML IV (07:11)
--- NOTE | 2022-11-03 09:13 | HP.PCM_ITS ---
[facility] - General General Date of Admission: 11/03/22 HPI Narrative JOSE A STEIN, is a 82 M who presents with a symptomatic right carotid stenosis. Anatomy appropriate for TCAR. On ASA/plavix, statin as well as coumadin. No recurrence of stroke symptoms. [facility] Medical History (Updated 11/03/22 @ 09:[address] 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 Long-term use of high-risk medication Low iron Lung nodule Non-smoker On home oxygen therapy Paroxysmal A-fib Presence of stent in coronary artery (~07/04/18) Pressure ulcer Prostate disease Renal insufficiency Restrictive airway disease Thyroid disease TIA (transient ischemic attack) Walker as ambulation aid Wears glasses Home Medications omeprazole 20 mg capsule,delayed release 20 mg PO DAILY gerd 07/02/18 [History Last Taken 11/03/22 03:00] ferrous sulfate 325 mg (65 mg iron) tablet 325 mg PO BID anemia 02/19/20 [History Last Taken 09/06/22] valsartan 80 mg tablet 80 mg PO DAILY hypertension 11/17/21 [History Last Taken 09/06/22] amlodipine 10 mg tablet 10 mg PO DAILY heart 02/27/22 [History Last Taken 11/03/22 03:00] cholecalciferol (vitamin D3) 25 mcg (1,000 unit) tablet 25 [facility]cg PO [facility] 02/27/22 [History Last Taken 09/05/22] albuterol sulfate 2.5 mg/3 mL (0.083 %) solution for nebulization 2.5 mg (3 mL) inhalation Q4H PRN SOB/WHEEZING #0 mL 09/15/22 [Rx Last Taken Unknown] amiodarone 200 mg tablet 100 mg PO DAILY heart 09/15/22 [History Last Taken 11/03/22 03:00] atorvastatin 40 mg tablet 40 mg PO QHS cholesterol 09/15/22 [History Last Taken Unknown] cetirizine 10 mg capsule 10 mg PO HS allergies 09/15/22 [History Last Taken Unknown] aspirin 81 mg tablet,delayed release (Adult Aspirin Regimen) 81 mg PO DAILY heart health 09/28/22 [History Last Taken Unknown] metoprolol tartrate 50 mg tablet 75 mg PO BID HTN 09/28/22 [History Last Taken 11/03/22 03:00] clopidogrel 75 mg tablet 75 mg PO DAILY Blood thinner 10/20/22 [History Last Taken 11/02/22] empagliflozin 10 mg tablet (Jardiance) 10 mg PO DAILY@0800 blood glucose 0 10/20/22 [History Last Taken Unknown] furosemide 40 mg tablet 40 mg PO BIDLX water pill 10/20/22 [History Last Taken Unknown] insulin glargine-yfgn 100 unit/mL (3 mL) subcutaneous pen 25 unit subcut QHS slow acting insulin 10/20/22 [History Last Taken Unknown] insulin lispro 100 unit/mL subcutaneous pen (Humalog KwikPen (U-100) Insulin) 7 unit subcut TIDAC blood glucose 10/20/22 [History Last Taken Unknown] levothyroxine 50 mcg tablet 50 mcg PO 0600 thyroid 10/20/22 [History Last Taken 11/03/22 03:00] lorazepam 0.5 mg tablet 0.5 mg PO BID PRN Anxiety 10/20/22 [History Last Taken Unknown] spironolactone 25 mg tablet 25 mg PO DAILY HTN 10/20/22 [History Last Taken Unknown] tamsulosin 0.4 mg capsule 0.4 mg PO DAILY@1730 urine flow 10/20/22 [History Last Taken Unknown] warfarin 2 mg tablet (Augtoven) 2 mg PO 1700 blood thinner 10/20/22 [History Last Taken 10/30/22] prednisone 10 mg tablet 10 mg PO DAILYCM inflamation #90 tabs 10/23/22 [Rx Last Taken Unknown] Allergy/AdvReac Type Severity Reaction Status Date / Time No Known Allergies Allergy Verified 11/03/22 06:55 Family History Mother Hypertension Heart disease Surgical History (Updated 10/20/22 @ 13:53 by Daja Rousseau) History of cardiac catheterization History of hernia repair History of hip replacement History of partial knee replacement Presence of coronary angioplasty implant and graft (~07/04/18) Social History household members: spouse Smoking Status: Never smoker alcohol intake: never substance use type: does not use ROS Constitutional Constitutional: Denies chills, fever(s), frequent falls, lethargy or weakness Eyes Eyes: Denies blind spots, change in vision or loss of vision ENT HEENT: Denies bleeding gums, hoarseness or sore throat Cardiovascular Cardiovascular: Denies abdominal pain, bluish discoloration of hand/feet, chest pain with activity, claudication, cold extremities, cyanosis, dyspnea on exertion, erythema on extremities, irregular heart rhythm, leg edema, leg ulcers, numbness in extremities or weakness in extremities Respiratory/Chest Respiratory/Chest: Denies cough, excessive phlegm production, shortness of breath at rest, shortness of breath with exertion or wheezing Gastrointestinal Gastrointestinal: Denies anorexia, change in stool character, constipation, diarrhea, melena or rectal bleeding Genitourinary Genitourinary: Denies dysuria or hematuria Musculoskeletal Musculoskeletal: Denies abnormal gait Integumentary Integumentary: Reports other Details: ; Denies erythema, non-healing lesions or wounds Neurologic Neurologic: Denies abnormal speech, focal weakness, headache(s), loss of vision, numbness, paresthesias or sensory deficit Hematologic/Lymphatic Hematologic/Lymphatic: Denies easy bleeding, easy bruising or lymphadenopathy Vital Signs Vital Signs Vital Signs: 11/03/22 07:00 11/03/22 07:00 Temperature 97.2 F L Temperature Source Temporal Pulse Rate 58 L Respiratory Rate 16 Respiratory Pattern Normal Blood Pressure 112/64 Blood Pressure Mean 80 Blood Pressure Source Monitor Blood Pressure Position Semi-Fowlers Blood Pressure Location Left Arm Pulse Ox 99 Oxygen Delivery Method Room Air Weight Weight: 216 lb 4.375 oz Body Mass Index (BMI) 35.9 Physical Exam Const alert, oriented x3, no apparent distress and healthy appearing General Appearance: cooperative; Negative for combative or lethargic Orientation / Consciousness: awake Exam Limitations: no limitations HEENT Head and Scalp: normocephalic and atraumatic Eyes EOMs intact bilaterally General Eye: normal appearance of both eyes Neck full ROM, no lymphadenopathy and thyroid normal General: trachea midline; Negative for lymphadenopathy or tenderness Thyroid: thyroid normal Lymph Lymphatic: Negative for no lymphadenopathy noted Resp normal respiratory effort and no use of accessory muscles Effort and Inspection: Negative for labored, stridor or audible wheezes Cardio regular rate Peripheral Pulses: brachial pulses present, radial pulses present and femoral pulses present Back/Spine Cervical Spine: cervical ROM normal Extremity full ROM, normal capillary refill and no clubbing, cyanosis or edema Skin no rashes or lesions noted and no wounds Neuro oriented x3, CN's II-XII intact bilaterally, no focal motor deficits and no sensory deficits noted Psych thought process normal, cooperative, affect normal, speech normal and activity/motor behavior normal Results Lab / Micro Data Labs: Laboratory Results - last 24 hr 11/03/22 06:18: POC PT 26.4 H, INR 2.4 11/03/22 06:32: POC Glucose 131 H 11/03/22 06:50: PT 23.7 H, INR 2.2 Assessment & Plan Assessment/Plan (1) Carotid stenosis, right: PLAN: -plan right TCAR
--- NOTE | 2022-11-03 11:56 | OP.PCM_ITS ---
Report of Operation Date of Procedure: 11/03/22 Pre-Operative Diagnosis: right carotid stenosis Post-Operative Diagnosis: same Surgery/Procedure Performed:: right carotid stent Description of Surgical Findings:: MUÑOZ to isabella, CN intact Surgeon: Omero Be Type of Anesthesia: General Estimated Blood Loss (mL): 25 Description of Procedure: HPI: Patient is an 82-year-old male who suffered a right hemispheric stroke and was found to have significant right internal carotid artery stenosis. He has significant medical comorbidities as well as an immobile and large neck so he is felt to be appropriate for carotid stenting. He is recovered from his stroke and completed rehab care and is taken now for carotid stenting for secondary stroke prevention. Description of procedure: Upon obtaining informed consent and verification correct patient procedure and site the patient was taken to the [facility] where he was placed under general anesthesia. He was then positioned prepped and draped in usual sterile fashion a timeout was performed. Transverse incision was made above the right clavicle and Bovie electrocautery was dissect down through subcutaneous tissue. Self-retaining retractors were then put in position further dissection carried down to the sternocleidomastoid which was freed along its medial edge and retracted laterally. Further dissection was carried down to the jugular vein which was mobilized along the medial edge and retracted laterally exposing the common carotid artery. Sharp dissection used to dissect free the common carotid artery and a right angle used to place a vessel loop. The vagus nerve was identified protected in its normal anatomic position. A 5-0 Prolene pursestring stitch was then placed in the proximal common carotid artery at the anticipated site of sheath access. Patient was then heparinized and allowed to circulate for 3 minutes, with serial heparin dosing based on ACT results. Next under ultrasound guidance the right common femoral vein was accessed in retrograde fashion with a micropuncture needle and wire. This was then exchanged out for micropuncture sheath through which a J- wire was advanced and the micropuncture sheath exchanged out for the [place] venous return sheath. Next the micropuncture needle was used to access the common carotid artery in antegrade fashion through which the [place] [address] micro wire was advanced and the needle exchanged for micropuncture sheath. Hand- injection carotid angiogram confirmed positioning of the carotid bifurcation and the microwire was advanced into the external carotid artery. The dilator was then readvanced into the micropuncture sheath and the micropuncture sheath advanced into the external carotid artery. The [place] [address] J-wire was then advanced in the position in the external carotid artery. The micropuncture sheath then exchanged out for the [place] [address] enroute sheath. The sheath was then attached to the flow reversal system and the venous return sheath. Multiple oblique views were obtained to confirm sheath positioning, as well as to determine the best view for stent positioning. This point we then clamped the common carotid artery proximal to the sheath and traversed the internal carotid artery lesion with the 014 wire. The lesion was then predilated with a 5 x 25 angioplasty balloon followed by stent placement with an 8 x 30 enroute stent. Repeat angiography revealed satisfactory stent positioning, with no residual stenosis, and no extravasation or dissection. This point the flow reversal system was disconnected and blood returned via the venous sheath. The femoral vein sheath was then withdrawn and manual pressure held for 5 minutes with satisfactory stasis noted. The carotid sheath was then withdrawn and the pursestring suture secured with satisfactory stasis noted. Patient then reversed with protamine and the incision inspected for hemostasis. [place] topical hemostatic was then applied and a 19 [place] channel CHICA placed via separate stab incision. The incision was then closed with 3-0 Vicryl, 4 Monocryl and Dermabond for the skin. Patient was then awake from anesthesia [place] extremities to command with cranial nerves intact. He was then taken to the intensive care unit for hemodynamic and neurologic monitoring. Grafts/Implants Used: Enroute stent 8 x 30
[2022-11-03] MEDS: Insulin Lispro 100 UNIT/ML INSULN.PEN SC ×3 (13:17→22:57)
[2022-11-03 14:00] LABS: Bedside Glucose 205 mg/dL (74-106)
[2022-11-03] MEDS: Cefazolin 1 GM/50 ML BAG IV ×2 (16:11→22:58)
[2022-11-03] MEDS: Ferrous Sulfate 325 MG Tablet PO (18:31)
[2022-11-03] MEDS: Furosemide 40 MG Tablet PO (18:31)
[2022-11-03] MEDS: Tamsulosin HCl 0.4 MG Capsule PO (18:31)
[2022-11-03 18:56] LABS: Bedside Glucose 258 mg/dL (74-106)
[2022-11-03] MEDS: Loratadine 10 MG Tablet PO (20:43)
[2022-11-03] MEDS: Atorvastatin Calcium 40 MG Tablet PO (20:43)
[2022-11-03] MEDS: 0.9% Normal Saline 250 ML IV.SOLN. IV (20:44)
[2022-11-03] MEDS: Albumin Human 25% (100 mL) 25 GM/100 ML BAG IV (20:47)
[2022-11-03 23:26] LABS: Bedside Glucose 290 mg/dL (74-106)
[2022-11-04] VITALS (11 sets, daily range): BP systolic 104–133; BP diastolic 40–56; PULSE 51–82; RESP 14–20; TEMP 36.1–36.6; O2SAT 92–99; BMI 37.2
[2022-11-04 03:12] LABS: Absolute Lymphocyte Count 0.79 X10^3/uL (0.83-4.51); Absolute Neutrophil Count 11.7 X10^3/uL (2.0-7.7); Basophil# 0.01 X10^3/uL; Basophil% 0.1 % (0-1); Hematocrit 34.3 % (40-54); Hemoglobin 11.3 g/dL (13.0-16.5); Lymphocyte # 0.79 X10^3/ul (0.83-4.51); Lymphocyte % 6.2 % (19-41); Mean Corp Hgb Conc 32.9 g/dL (32-36); Mean Corpuscular Hgb 29.7 pg (27.0-32.0); Mean Corpuscular Volume 90.3 fL (80-94); Mean Platelet Vol. 9.1 fl (6.2-12.0); Monocyte# 0.26 X10^3/uL; NRBC Flagged by Analyzer 0 % (0-5); Neutrophil # 11.66 X10^3/uL (2.7-7.7); Neutrophil % 91.1 % (47-70); Platelet Count 175 K/mm3 (150-450); RBC Distribution Width CV 14.6 % (11.6-14.6); RBC Distribution Width SD 47.8 fl (35.1-43.9); White Blood Count 12.8 K/mm3 (4.4-11.0)
[2022-11-04 03:24] LABS: International Normalized Ratio 2.4; Prothrombin Time (Protime)PT. 25.5 SECONDS (11.7-14.9)
[2022-11-04] MEDS: Insulin Lispro 100 UNIT/ML INSULN.PEN SC (05:32)
[2022-11-04] MEDS: Levothyroxine 50 MCG Tablet PO (05:33)
[2022-11-04 06:00] LABS: Bedside Glucose 198 mg/dL (74-106)
--- NOTE | 2022-11-04 08:58 | PN.SURG_ITS ---
Subjective Subjective Doing well, pain controlled, no numbness/weakness/vision loss/speech difficulty. [place] diet, no N/V/GIBBS Objective Data Objective Data A&O x 3, NAD RRR Resp non labored CN intact, motor/sensory intact Inc C/D/I, no erythema CHICA Sero-sang Vital Signs: Vital Signs Temp Pulse Resp BP Pulse Ox O2 Del Method O2 Flow Rate 97.4 F L 55 L 20 H 133/56 H 92 Room Air 2 11/04/22 02:00 11/04/22 08:00 11/04/22 08:00 11/04/22 08:00 11/04/22 08:00 11/04/22 08:00 11/03/22 14:25 FiO2 21 11/04/22 03:55 Oxygen Flow Rate (L/min) 2 Oxygen Delivery Method Room Air Weight: 223 lb 8.78 oz Body Mass Index (BMI) 37.2 Intake & Output: Intake and Output for Last 24 Hours 11/02/22 11/03/22 11/04/22 23:59 23:59 23:59 Intake Total 400 / 430 Output Total 1730 / 1905 735 / 735 Balance -1330 / -1475 -705 / -705 Lab / Micro Data Result Diagrams: 11/04/22 03:00 Labs: Laboratory Results - last 24 hr 11/03/22 09:05: Blood Type Cancelled, Antibody Screen Cancelled 11/03/22 09:55: Blood Type AB POSITIVE, Antibody Screen NEGATIVE 11/03/22 13:10: POC Glucose 205 H 11/03/22 18:31: POC Glucose 258 H 11/03/22 22:55: POC Glucose 290 H 11/04/22 03:00: WBC 12.8 H, RBC 3.80 L, Hgb 11.3 L, Hct 34.3 L, MCV 90.3, MCH 29.7, MCHC 32.9, RDW Std Deviation 47.8 H, RDW Coeff of Alley 14.6, Plt Count 175, MPV 9.1, Immature Gran % (Auto) 0.600, Neut % (Auto) 91.1 H, Lymph % (Auto) 6.2 L, [place] % (Auto) 2.0, Eos % (Auto) 0.0, Baso % (Auto) 0.1, Absolute Neuts (auto) 11.7 H, Absolute Lymphs (auto) 0.79 L, Nucleated RBC % 0 11/04/22 03:00: PT 25.5 H, INR 2.4 11/04/22 05:32: POC Glucose 198 H Assessment & Plan Assessment/Plan (1) Carotid stenosis, right: PLAN: -POD # 1 right TCAR -CHICA removed -no adherent gauze over skin tear/drain site -BP low normal overnight; cont to hold BP meds, will check and resume at home -INR 2.4; will hold coumadin until Sunday -progressive ambulation, DC art line, DC home if doing well
--- NOTE | 2022-11-04 09:01 | PCM.DC.SUM ---
Providers Date of Admission: 11/03/22 Primary Care Physician: Dr. Eric Newton MD Reason For Visit: RT CAROTIDSTENT IN [employer]CR[employer]E [employer]AVER Diagnosis Discharge Diagnosis (1) Carotid stenosis, right: Status: Chronic Code(s): I65.21 - Occlusion and stenosis of right carotid artery Plan: -POD # 1 right TCAR -CHICA removed -no adherent gauze over skin tear/drain site -BP low normal overnight; cont to hold BP meds, will check and resume at home -INR 2.4; will hold coumadin until Sunday -progressive ambulation, DC art line, DC home if doing well Medications at Discharge Home Medications omeprazole 20 mg capsule,delayed release 20 mg PO DAILY gerd 07/02/18 ferrous sulfate 325 mg (65 mg iron) tablet 325 mg PO BID anemia 02/19/20 valsartan 80 mg tablet 80 mg PO DAILY hypertension 11/17/21 amlodipine 10 mg tablet 10 mg PO DAILY heart 02/27/22 cholecalciferol (vitamin D3) 25 mcg (1,000 unit) tablet 25 mcg PO DAILY health maintenence 02/27/22 albuterol sulfate 2.5 mg/3 mL (0.083 %) solution for nebulization 2.5 mg (3 mL) inhalation Q4H PRN SOB/WHEEZING #0 mL 09/15/22 amiodarone 200 mg tablet 100 mg PO DAILY heart 09/15/22 atorvastatin 40 mg tablet 40 mg PO QHS cholesterol 09/15/22 cetirizine 10 mg capsule 10 mg PO HS allergies 09/15/22 aspirin 81 mg tablet,delayed release (Adult Aspirin Regimen) 81 mg PO DAILY heart health 09/28/22 metoprolol tartrate 50 mg tablet 75 mg PO BID HTN 09/28/22 clopidogrel 75 mg tablet 75 mg PO DAILY Blood thinner 10/20/22 empagliflozin 10 mg tablet (Jardiance) 10 mg PO DAILY@0800 blood glucose 10/20/22 furosemide 40 mg tablet 40 mg PO BIDLX water pill 10/20/22 insulin glargine-yfgn 100 unit/mL (3 mL) subcutaneous pen 25 unit subcut QHS slow acting insulin 10/20/22 insulin lispro 100 unit/mL subcutaneous pen (Humalog KwikPen (U-100) Insulin) 7 unit subcut TIDAC blood glucose 10/20/22 levothyroxine 50 mcg tablet 50 mcg PO 0600 thyroid 10/20/22 lorazepam 0.5 mg tablet 0.5 mg PO BID PRN Anxiety 10/20/22 spironolactone 25 mg tablet 25 mg PO DAILY HTN 10/20/22 tamsulosin 0.4 mg capsule 0.4 mg PO DAILY@1730 urine flow 10/20/22 warfarin 2 mg tablet (Jantoven) 2 mg PO 1700 blood thinner 10/20/22 prednisone 10 mg tablet 10 mg PO DAILYCM inflamation #90 tabs 10/23/22 oxycodone 5 mg tablet 5 mg PO Q8H PRN Pain Score 6-10 3 days #12 tabs 11/04/22 Hospital Course Operations - (right carotid artery stent) Summary of Care Provided Hospital Course: Patient is an 82 yo male who presented for elective right carotid stent 11/03/2022. He tolerated the procedure well and was admitted to ICU post procedure for hemodynamic and neurologic monitoring. His blood pressure was low normal without taking home antihypertensive medications so these were held initially. POD # 1 he was doing well, tolerating diet, ambulating at baseline, voiding without difficulty. His arterial line was removed, CHICA removed, and increased in level of ambulation. He was then prepared for discharge with plans to gradually resume home antihypertensives as well as coumadin. Physical Exam Const alert, oriented x3, no apparent distress and healthy appearing General Appearance: cooperative; Negative for combative or lethargic Orientation / Consciousness: awake Exam Limitations: no limitations HEENT Head and Scalp: normocephalic and atraumatic Eyes EOMs intact bilaterally General Eye: normal appearance of both eyes Neck full ROM General: trachea midline Lymph Lymphatic: Negative for no lymphadenopathy noted Resp normal respiratory effort and no use of accessory muscles Effort and Inspection: Negative for labored, stridor or audible wheezes Cardio regular rate and regular rhythm Peripheral Pulses: radial pulses present Back/Spine Cervical Spine: cervical ROM normal Extremity full ROM, normal capillary refill and no clubbing, cyanosis or edema Skin no rashes or lesions noted and no wounds Neuro oriented x3, CN's II-XII intact bilaterally, no focal motor deficits and no sensory deficits noted Psych thought process normal, cooperative, affect normal, speech normal and activity/motor behavior normal Weight / BMI Weight Weight: 223 lb 8.78 oz Body Mass Index (BMI) 37.2 ABG / Lab / Microbiology Data Result Diagrams: 11/04/22 03:00 Laboratory: Laboratory Results - last 24 hr 11/03/22 09:05: Blood Type Cancelled, Antibody Screen Cancelled 11/03/22 09:55: Blood Type AB POSITIVE, Antibody Screen NEGATIVE 11/03/22 13:10: POC Glucose 205 H 11/03/22 18:31: POC Glucose 258 H 11/03/22 22:55: POC Glucose 290 H 11/04/22 03:00: WBC 12.8 H, RBC 3.80 L, Hgb 11.3 L, Hct 34.3 L, MCV 90.3, MCH 29.7, MCHC 32.9, RDW Std Deviation 47.8 H, RDW Coeff of Alley 14.6, Plt Count 175, MPV 9.1, Immature Gran % (Auto) 0.600, Neut % (Auto) 91.1 H, Lymph % (Auto) 6.2 L, [place] % (Auto) 2.0, Eos % (Auto) 0.0, Baso % (Auto) 0.1, Absolute Neuts (auto) 11.7 H, Absolute Lymphs (auto) 0.79 L, Nucleated RBC % 0 11/04/22 03:00: PT 25.5 H, INR 2.4 11/04/22 05:32: POC Glucose 198 H D/C Instructions Discharge Diet: No restrictions May shower in (days): 1 Lifting Restrictions: do not lift > 20 lbs for 2 weeks Additional Activity Instructions: do not submerge incisions for 2 weeks Call your doctor if your incision/area has: Sudden Increased Bleeding, Increased Pain/ Swelling, Increased Redness and Foul Smelling Discharge Call your doctor if you observe: Fever of 101 or Higher Additional Dressing/Incision Instructions: Neosporin and non-adherent gauze to skin tear daily Meaningful Use Info Meaningful Use Diagnoses (Choose all that apply): None applicable Discharge Plan Admission Admit Date/Time: 11/03/22 05:49 Attending Provider: Omero Be Primary Care Provider: Eric Newton Instructions Additional Instructions / Restrictions: Coumadin- Resume Sunday11/06/2022 Metoprolol- Continue with evening dose today Lasix- Continue with evening dose today Valsartan- Hold, resume as instructed for blood pressure over 140 Amlodipine- Hold, resume as instructed for blood pressure over 140 Spironolactone- Hold, resume as instructed for blood pressure over 140 Check blood pressure twice a day If blood pressure over 180 resume all above blood pressure medications Discharge Orders/Prescriptions Prescriptions: New oxycodone 5 mg Tablet 5 mg PO Q8H PRN (Reason: Pain Score 6-10) 3 Days Qty: 12 0RF Continued valsartan 80 mg tablet 80 mg PO DAILY amlodipine 10 mg tablet 10 mg PO DAILY cholecalciferol (vitamin D3) 25 mcg (1,000 unit) tablet 25 mcg PO DAILY aspirin [Adult Aspirin Regimen] 81 mg tablet,delayed release (DR/EC) 81 mg PO DAILY metoprolol tartrate 50 mg tablet 75 mg PO BID omeprazole 20 MG capsule 20 mg PO DAILY albuterol sulfate 2.5 mg /3 mL (0.083 %) Solution For Nebulization 2.5 mg inhalation Q4H PRN (Reason: SOB/WHEEZING) Qty: 0 0RF atorvastatin 40 mg tablet 40 mg PO QHS amiodarone 200 mg tablet 100 mg PO DAILY cetirizine 10 mg capsule 10 mg PO HS furosemide 40 mg tablet 40 mg PO BIDLX clopidogrel 75 mg tablet 75 mg PO DAILY spironolactone 25 mg tablet 25 mg PO DAILY tamsulosin 0.4 mg capsule 0.4 mg PO DAILY@1730 levothyroxine 50 mcg tablet 50 mcg PO 0600 warfarin [Jantoven] 2 mg tablet 2 mg PO 1700 Label Comments: Will stop 10/31 for surgery 11/03 insulin lispro [Humalog KwikPen Insulin] 100 unit/mL insulin pen 7 unit subcut TIDAC Jardiance 10 mg tablet 10 mg PO DAILY@0800 insulin glargine-yfgn 100 unit/mL (3 mL) insulin pen 25 unit subcut QHS lorazepam 0.5 mg Tablet 0.5 mg PO BID PRN (Reason: Anxiety) ferrous sulfate 325 mg (65 mg iron) tablet 325 mg PO BID prednisone 10 mg tablet 10 mg PO DAILYCM Qty: 90 3RF Referrals / Follow Up: Eric Newton MD [Primary Care Provider] - Disposition Disposition (needs filled in before D/C Order can be placed): Home, Self Care
[2022-11-04] MEDS: Amiodarone 200 MG Tablet 100 MG PO (09:59)
[2022-11-04] MEDS: Cholecalciferol (VIT D3) 25 MCG TABLET (1,000 UNITS) PO (09:59)
[2022-11-04] MEDS: Empagliflozin 10 MG Tablet PO (10:00)
[2022-11-04] MEDS: Aspirin E.C. 81 MG Tablet PO (10:01)
[2022-11-04] MEDS: Clopidogrel Bisulfate 75 MG Tablet PO (10:04)
[2022-11-04] MEDS: Pantoprazole Sodium 20 MG Tablet PO (10:04)
--- NOTE | 2022-11-04 10:16 | CASEMGMT ---
HELGA POWELL Assessment: Face to Face with pt for initial transition planning/care coordination assessment. HELGA POWELL introduced self and role at [facility], pt voices understanding and consents to assessment. Pt is A/O x4 and answers all questions appropriately at this time. Pt sitting up in chair in no distress. Pt dtr and son in law at bedside. Pt agreeable to assessment with them present. Care providers, pharmacy, and demographics verified/updated. 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 Pt reports he only uses main level. Pt reports his assists him with bathing. Pt denies concerns at home. Transportation: Pt hires drivers for transportation. DME/C/SNF: Pt has a raised toilet, shower chair, cane, w/c, hh shower and grab bars in the bathroom. Pt states he is active with [facility] SN, PT, and OT. Pt denies SNF stay. Pt states no concerns with going home at time of dc. Sent resumption info via careport to [facility]. Pt states no further concerns/needs. CM to follow. Advised pt to ask CM if any further question/concerns/needs arise, voices understanding. Pt Goal: Home with resumption of HHC Plan: Home with resumption of HHC
== END 2022-11-04 11:33 | disposition home or self-care (01) | DRG 35 ==
LOC: ACINP 05:51 → ICU 12:50
PROVIDERS: Admitting Provider Surgery Trauma Surgery; PCP Family Medicine; Referring Provider Surgery Trauma Surgery; Visit Provider Surgery Trauma Surgery
PROC: 037H3DZ Dilation of Right Common Carotid Artery with Intraluminal Device, Percutaneous Approach (ICD-10-PCS; CPT 37236; principal; 2022-11-03 07:30)
DX: I65.21 Occlusion and stenosis of right carotid artery (principal); I42.9 Cardiomyopathy, unspecified; E66.2 Morbid (severe) obesity with alveolar hypoventilation; I13.0 Hypertensive heart and chronic kidney disease with heart failure and stage 1 through stage 4 chronic kidney disease, or unspecified chronic kidney disease; I48.92 Unspecified atrial flutter; E11.22 Type 2 diabetes mellitus with diabetic chronic kidney disease; I50.9 Heart failure, unspecified; Z79.4 Long term (current) use of insulin; N18.32 Chronic kidney disease, stage 3b; I48.0 Paroxysmal atrial fibrillation; I25.10 Atherosclerotic heart disease of native coronary artery without angina pectoris; E78.00 Pure hypercholesterolemia, unspecified; Z68.35 Body mass index [BMI] 35.0-35.9, adult; Z95.5 Presence of coronary angioplasty implant and graft; Z99.81 Dependence on supplemental oxygen; Z79.01 Long term (current) use of anticoagulants; Z79.02 Long term (current) use of antithrombotics/antiplatelets; Z79.82 Long term (current) use of aspirin; Z79.84 Long term (current) use of oral hypoglycemic drugs; Z79.899 Other long term (current) drug therapy; Z86.73 Personal history of transient ischemic attack (TIA), and cerebral infarction without residual deficits
CPT/HCPCS: 36416; 37215; 76937; 82962; 85025; 85610; 86850; 86900; 86901; 94668; 99252; C1725; C1769; C1876; C1884; C1894; J7030; J7050; J7120; P9047; Q9967; C1887; G0463; J2405

== ENCOUNTER → 2022-11-16 | Outpatient (CLI) | payer OTHER, SELFPAY ==
[2022-11-16 11:28] LABS: Hematocrit 41.3 % (40-54); Hemoglobin 12.8 g/dL (13.0-16.5); Mean Corpuscular Hgb 28.9 pg (27.0-32.0); Mean Corpuscular Volume 93.2 fL (80-94); Mean Platelet Vol. 9.7 fl (6.2-12.0); Platelet Count 193 K/mm3 (150-450); RBC Distribution Width CV 14.7 % (11.6-14.6); RBC Distribution Width SD 50.8 fl (35.1-43.9); Red Blood Count 4.43 M/mm3 (4.6-6.2); White Blood Count 13.3 K/mm3 (4.4-11.0)
[2022-11-16 11:56] LABS: Albumin, Serum 3.3 g/dL (3.2-5.0); BUN 50 mg/dL (7-18); Calcium,Total 9.4 mg/dL (8.5-10.1); Chloride 101 mmol/L (98-107); Creatinine, Serum 2.27 mg/dL (0.70-1.30); EST Glomerular Filtration Rate 30 mL/min (>60); Est Glom Filt Rate - Afr Amer 36 mL/min (>60); Glucose 176 mg/dL (74-106); PTHIN 164.2 pg/mL (18.4-80.1); Phosphorus 3.5 mg/dL (2.5-4.9); Potassium 3.8 mmol/L (3.5-5.1); Sodium Level 136 mmol/L (136-145)
== END | disposition home or self-care (01) ==
PROVIDERS: PCP Family Medicine; Referring Provider Internal Medicine Nephrology; Visit Provider Internal Medicine Nephrology
DX: E11.22 Type 2 diabetes mellitus with diabetic chronic kidney disease (principal); Z18.32 Retained tooth
CPT/HCPCS: 36415; 80069; 83970; 85027

== ENCOUNTER → 2022-12-01 | Outpatient (CLI) | payer SELFPAY, OTHER ==
--- NOTE | 2022-12-01 12:54 | CDU_ITS ---
Reason For Study: S/P Rt carotid stent Rt. Velocities/BP Lt. Velocities/BP Prox CCA 67.4/11.6 cm/sec. Prox CCA 103.5/15.1 cm/sec. Mid CCA 65.5/9.7 cm/sec. Mid CCA 82.6/16.3 cm/sec. Dist CCA 68.3/9.7 cm/sec. Dist CCA 65.4/13.9 cm/sec. Prox ICA 65.4/15.1 cm/sec. Prox ICA 47.5/17.3 cm/sec. Mid ICA 87.6/20 cm/sec. Mid ICA 69.2/23 cm/sec. Dist ICA 60.5/10.2 cm/sec. Dist ICA 87.2/29.6 cm/sec. Rt. ICA/CCA = 1.30. Lt. ICA/CCA = 1.06. Prox ECA 126.6 cm/sec. Prox ECA 120.7/9 cm/sec. Rt. Vert. 34.8/10.2 cm/sec. Lt. Vert. 35.2/8.8 cm/sec. Right Extracranial There is heterogeneous, irregular atherosclerotic plaque noted in the right common carotid artery. There is intimal thickening but no significant atherosclerotic plaque noted in the right internal carotid artery. Stent noted in the right CCA distal to ICA mid. There is heterogeneous, irregular atherosclerotic plaque noted in the right external carotid artery. Antegrade flow is noted in the right vertebral artery. Left Extracranial There is heterogeneous, irregular atherosclerotic plaque noted in the left common carotid artery. There is heterogeneous, irregular atherosclerotic plaque noted in the left internal carotid artery. There is intimal thickening but no significant atherosclerotic plaque noted in the left external carotid artery. Antegrade flow is noted in the left vertebral artery. Procedure Carotid Duplex 51256. This is a Carotid Duplex examination using B-mode, color flow and specral Doppler. Exam performed in department. VL/Carotid Duplex Ultrasound Interpretation Summary Mild (<50%) stenosis right extracranial internal carotid. Mild (<50%) stenosis left extracranial internal carotid. Patent and antegrade vertebrals bilaterally. Ordering Physician: Guera Bartholomew Referring Physician: MD Aman Eric Performed By: Wen Cam RVT
== END | disposition home or self-care (01) ==
LOC: CVS 12:38
PROVIDERS: PCP Family Medicine; Referring Provider Physician Assistant; Visit Provider Physician Assistant
DX: I65.21 Occlusion and stenosis of right carotid artery (principal)
CPT/HCPCS: 93880

== ENCOUNTER 2022-12-19 21:06 | Emergency (ER) | payer OTHER, SELFPAY ==
[2022-12-19 21:06] VITALS: BP 158/88; PULSE 94; RESP 15; TEMP 36.3; O2SAT 94
[2022-12-19 21:20] VITALS: BMI 34.1
[2022-12-19 21:57] LABS: Absolute Lymphocyte Count 1.99 X10^3/uL (0.83-4.51); Absolute Neutrophil Count 7.5 X10^3/uL (2.0-7.7); Basophil# 0.03 X10^3/uL; Basophil% 0.3 % (0-1); Eosinophil# 0.08 X10^3/uL; Eosinophils% 0.8 % (0-5); Hemoglobin 14.2 g/dL (13.0-16.5); Lymphocyte # 1.99 X10^3/ul (0.83-4.51); Lymphocyte % 19.3 % (19-41); Mean Corp Hgb Conc 32.3 g/dL (32-36); Mean Corpuscular Hgb 29.3 pg (27.0-32.0); Mean Corpuscular Volume 90.7 fL (80-94); Mean Platelet Vol. 9.2 fl (6.2-12.0); Monocyte# 0.69 X10^3/uL; Monocyte% 6.7 % (0-10); NRBC Flagged by Analyzer 0 % (0-5); Neutrophil # 7.48 X10^3/uL (2.7-7.7); Neutrophil % 72.3 % (47-70); Platelet Count 163 K/mm3 (150-450); RBC Distribution Width CV 14.7 % (11.6-14.6); RBC Distribution Width SD 49.2 fl (35.1-43.9); Red Blood Count 4.85 M/mm3 (4.6-6.2); White Blood Count 10.3 K/mm3 (4.4-11.0)
[2022-12-19 22:05] LABS: International Normalized Ratio 2.1; Prothrombin Time (Protime)PT. 23.6 SECONDS (11.7-14.9)
[2022-12-19 22:17] LABS: ALB/GLOB Ratio 0.8 RATIO (0.9-2.4); AST(SGOT) 31 U/L (15-37); Alanine Aminotransfer ALT/SGPT 31 U/L (16-61); Albumin, Serum 3.4 g/dL (3.2-5.0); Alkaline Phosphatase 80 U/L (45-117); Anion Gap 10 (5-15); BUN 49 mg/dL (7-18); BUN/Creat Ratio 23.8 RATIO (10-20); Calcium,Total 9.1 mg/dL (8.5-10.1); Chloride 101 mmol/L (98-107); Creatinine, Serum 2.06 mg/dL (0.70-1.30); EST Glomerular Filtration Rate 33 mL/min (>60); Est Glom Filt Rate - Afr Amer 40 mL/min (>60); Estimated Creatinine Clearance 24.88 ml/min; Glucose 161 mg/dL (74-106); Potassium 4.1 mmol/L (3.5-5.1); Protein, Total 7.4 g/dL (6.4-8.2); Sodium Level 138 mmol/L (136-145)
--- NOTE | 2022-12-19 22:47 | EDS_ITS ---
HPI History of Present Illness Chief Complaint: Cellulitis Narrative Narrative: 82-year-old male presenting with redness over the right tibial region. Starts in the proximal lateral area and moves down the tibia to just above the ankle. Its not hot. Not painful. It does not itch. Patient does states that he thinks he bumped his leg at some point this week and has a bruise above this area. No numbness or tingling. No fevers or chills. Patient does not feel ill. He is ambulatory without antalgic gait. Patient has history of cellulitis in the left lower extremity and was concerned he might have it again. He states he was septic and last time he was admitted. 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 Long-term use of high-risk medication Low iron Lung nodule Non-smoker On home oxygen therapy Paroxysmal A-fib Presence of stent in coronary artery (~07/04/18) Pressure ulcer Prostate disease Renal insufficiency Restrictive airway disease Thyroid disease TIA (transient ischemic attack) Walker as ambulation aid Wears glasses Home Medications omeprazole 20 mg capsule,delayed release 20 mg PO DAILY gerd 07/02/18 [History Last Taken 11/03/22 03:00] ferrous sulfate 325 mg (65 mg iron) tablet 325 mg PO BID anemia 02/19/20 [History Last Taken 09/06/22] cholecalciferol (vitamin D3) 25 mcg (1,000 unit) tablet 25 mcg PO DAILY health maintenence 02/27/22 [History Last Taken 09/05/22] albuterol sulfate 2.5 mg/3 mL (0.083 %) solution for nebulization 2.5 mg (3 mL) inhalation Q4H PRN SOB/WHEEZING #0 mL 09/15/22 [Rx Last Taken Unknown] amiodarone 200 mg tablet 100 mg PO DAILY heart 09/15/22 [History Last Taken 11/03/22 03:00] atorvastatin 40 mg tablet 40 mg PO QHS cholesterol 09/15/22 [History Last Taken Unknown] cetirizine 10 mg capsule 10 mg PO HS allergies 09/15/22 [History Last Taken Unknown] aspirin 81 mg tablet,delayed release (Adult Aspirin Regimen) 81 mg PO DAILY heart health 09/28/22 [History Last Taken Unknown] metoprolol tartrate 50 mg tablet 75 mg PO BID HTN 09/28/22 [History Last Taken 11/03/22 03:00] clopidogrel 75 mg tablet 75 mg PO DAILY Blood thinner 10/20/22 [History Last Taken 11/02/22] empagliflozin 10 mg tablet (Jardiance) 10 mg PO DAILY@0800 blood glucose 10/20/22 [History Last Taken Unknown] furosemide 40 mg tablet 40 mg PO BIDLX water pill 10/20/22 [History Last Taken Unknown] insulin glargine-yfgn 100 unit/mL (3 mL) subcutaneous pen 25 unit subcut QHS slow acting insulin 10/20/22 [History Last Taken Unknown] insulin lispro 100 unit/mL subcutaneous pen (Humalog KwikPen (U-100) Insulin) 7 unit subcut TIDAC blood glucose 10/20/22 [History Last Taken Unknown] levothyroxine 50 mcg tablet 50 mcg PO 0600 thyroid 10/20/22 [History Last Taken 11/03/22 03:00] lorazepam 0.5 mg tablet 0.5 mg PO BID PRN Anxiety 10/20/22 [History Last Taken Unknown] tamsulosin 0.4 mg capsule 0.4 mg PO DAILY@1730 urine flow 10/20/22 [History Last Taken Unknown] warfarin 2 mg tablet (Jantoven) 2 mg PO 1700 blood thinner 10/20/22 [History Last Taken 10/30/22] prednisone 10 mg tablet 10 mg PO DAILYCM inflamation #90 tabs 10/23/22 [Rx Last Taken Unknown] Allergy/AdvReac Type Severity Reaction Status Date / Time No Known Allergies Allergy Verified 12/19/22 21:12 Family History Mother Hypertension Heart disease Surgical History History of cardiac catheterization History of hernia repair History of hip replacement History of partial knee replacement Presence of coronary angioplasty implant and graft (~07/04/18) Social History household members: spouse Smoking Status: Never smoker alcohol intake: never substance use type: does not use ROS ROS ED Review of Systems ROS Unobtainable: due to encephalopathy Constitutional Constitutional ED: Denies chills Eyes Eyes: Denies blurry vision or change in vision ENT ENT ED: Denies ear pain or sore throat Cardiovascular Cardiovascular: Denies chest pain, palpitations or racing heartbeat Respiratory/Chest Respiratory/Chest: Denies cough, dyspnea or sputum Gastrointestinal Gastrointestinal: Denies abdominal pain, constipation, diarrhea, nausea or vomiting Genitourinary Genitourinary ED: Denies dysuria, hematuria or urinary frequency Musculoskeletal Musculoskeletal: Denies arthralgias, myalgias or neck pain Integumentary Reports other Details: Erythema over right lower extremity ; Denies abscess or Abrasions Neurologic Neurologic: Denies headache(s), paresthesias or weakness Psychiatric Psychiatric: Denies anxiety, depression, suicidal ideation or suicidal thoughts Endocrine Endocrinology: Denies polydipsia or polyuria EXAM Physical Exam Const Vital Signs: 12/19/22 21:06 Temperature 97.4 F L Temperature Source Temporal Pulse Rate 94 Respiratory Rate 15 Blood Pressure 158/88 H Blood Pressure Mean 111 Pulse Ox 94 Oxygen Delivery Method Room Air Positive well nourished General Appearance ED: Negative for pallor HEENT Reports normocephalic and moist mucous membranes Eyes PERRL and EOMs intact bilaterally Resp normal respiratory effort Auscultation: Negative for rales, rhonchi or wheezes Cardio regular rate and regular rhythm Narrative: Deferred Extremity Extremity Narrative: Faint erythema in the right tibial region. Its not circumferential. It begins distal to the knee and ends just above the ankle. There is a bruise at the top of this. Area is not hot, tender, edematous. Sensation is intact. Neuro oriented x3 and CN's II-XII intact bilaterally Sensorium / Orientation: alert Motor Exam: strength 5/5 throughout Psych mental status grossly normal Attitude: No agitated Skin General Skin Exam: Negative for jaundice or pallor MDM MDM MDM Narrative Medical decision making narrative: Patient presenting with area of erythema over the right tibia. Is not circumferential. It does not appear to be cellulitis. Its not hot, edematous, tender. It could possibly be dependent bruising from the bruise above on his leg. He has not had any systemic signs or symptoms. CBC to assess white blood cell count, hemoglobin, platelets, differential. CMP to assess liver function, renal function, glucose, anion gap. INR assessed due to the patient being on Coumadin. CBC and CMP are unremarkable. Creatinine at 2.06 which is actually improved from previous. Patient well-appearing. I do not believe he needs antibiotics currently. The place on his tibia is outlined. He is counseled if he has any worsening systemic signs or symptoms or his erythema gets redder, hotter, painful he should return. Patient and gauze understanding. Discharge stable condition. Impression: 1. Erythema Lab Data Attestation: I reviewed the patient's lab results. Labs: Laboratory Results - last 24 hr 12/19/22 12/19/22 12/19/22 21:49 21:49 21:49 WBC 10.3 RBC 4.85 Hgb 14.2 Hct 44.0 MCV 90.7 MCH 29.3 MCHC 32.3 RDW Std Deviation 49.2 H RDW Coeff of Alley 14.7 H Plt Count 163 MPV 9.2 Immature Gran % (Auto) 0.600 Neut % (Auto) 72.3 H Lymph % (Auto) 19.3 Foster % (Auto) 6.7 Eos % (Auto) 0.8 Baso % (Auto) 0.3 Absolute Neuts (auto) 7.5 Absolute Lymphs (auto) 1.99 Nucleated RBC % 0 PT 23.6 H INR 2.1 Sodium 138 Potassium 4.1 Chloride 101 Carbon Dioxide 27.0 Anion Gap 10 BUN 49 H Creatinine 2.06 H Estim Creat Clear Calc 24.88 Est GFR (MDRD) Af Amer 40 L Est GFR (MDRD) Non-Af 33 L BUN/Creatinine Ratio 23.8 H Glucose 161 H Calcium 9.1 Total Bilirubin 0.40 AST 31 ALT 31 Alkaline Phosphatase 80 Total Protein 7.4 Albumin 3.4 Globulin 4.0 Albumin/Globulin Ratio 0.8 L Discharge Plan Triage Chief Complaint: Cellulitis ED Provider: Ignacio Jeff Dx/Rx/DC Orders Instructions: ED Erythema Prescriptions: No Action cholecalciferol (vitamin D3) 25 mcg (1,000 unit) tablet 25 mcg PO DAILY aspirin [Adult Aspirin Regimen] 81 mg tablet,delayed release (DR/EC) 81 mg PO DAILY metoprolol tartrate 50 mg tablet 75 mg PO BID omeprazole 20 MG capsule 20 mg PO DAILY albuterol sulfate 2.5 mg /3 mL (0.083 %) Solution For Nebulization 2.5 mg inhalation Q4H PRN (Reason: SOB/WHEEZING) Qty: 0 0RF atorvastatin 40 mg tablet 40 mg PO QHS amiodarone 200 mg tablet 100 mg PO DAILY cetirizine 10 mg capsule 10 mg PO HS furosemide 40 mg tablet 40 mg PO BIDLX clopidogrel 75 mg tablet 75 mg PO DAILY tamsulosin 0.4 mg capsule 0.4 mg PO DAILY@1730 levothyroxine 50 mcg tablet 50 mcg PO 0600 warfarin [Jantoven] 2 mg tablet 2 mg PO 1700 Label Comments: Will stop 10/31 for surgery 11/03 insulin lispro [Humalog KwikPen Insulin] 100 unit/mL insulin pen 7 unit subcut TIDAC Jardiance 10 mg tablet 10 mg PO DAILY@0800 insulin glargine-yfgn 100 unit/mL (3 mL) insulin pen 25 unit subcut QHS lorazepam 0.5 mg Tablet 0.5 mg PO BID PRN (Reason: Anxiety) ferrous sulfate 325 mg (65 mg iron) tablet 325 mg PO BID prednisone 10 mg tablet 10 mg PO DAILYCM Qty: 90 3RF Primary Care Provider: Eric Newton Referrals: Eric Newton MD [Primary Care Provider] - Disposition Disposition: Home, Self Care
[2022-12-19 23:53] VITALS: BP 146/87; PULSE 76; RESP 16; O2SAT 98
== END 2022-12-19 23:54 | disposition home or self-care (01) ==
PROVIDERS: Emergency Provider Student in an Organized Health Care Education/Training Program; PCP Family Medicine; Visit Provider Student in an Organized Health Care Education/Training Program
DX: L53.9 Erythematous condition, unspecified (principal); I50.9 Heart failure, unspecified; I25.10 Atherosclerotic heart disease of native coronary artery without angina pectoris; Z99.81 Dependence on supplemental oxygen; Z86.73 Personal history of transient ischemic attack (TIA), and cerebral infarction without residual deficits; Z95.5 Presence of coronary angioplasty implant and graft
CPT/HCPCS: 80053; 85025; 85610; 99282; A4216

== ENCOUNTER 2023-05-10 11:28 | Emergency (ER) | payer OTHER, SELFPAY ==
[2023-05-10 11:29] VITALS: BP 121/67; PULSE 108; RESP 22; TEMP 36.6; O2SAT 91; BMI 34.6
--- NOTE | 2023-05-10 12:28 | EKG12_ITS ---
Test Reason : SOB Blood Pressure : / mmHG Vent. Rate : 062 BPM Atrial Rate : 062 BPM P-R Int : 170 ms QRS Dur : 084 ms QT Int : 466 ms P-R-T Axes : 060 043 051 degrees QTc Int : 472 ms Sinus rhythm with Premature atrial complexes Otherwise normal ECG Confirmed by CLOTILDE BHANDARI, PHUONG ([id number]), index editor RADHA MARINELLI ([id number]) on 05/15/2023 12:30:04 PM Referred By: Confirmed By:PHUONG MABRY MD
[2023-05-10 12:35] VITALS: O2SAT 95
--- NOTE | 2023-05-10 12:37 | RAD_ITS ---
STUDY: X-RAY CHEST REASON FOR EXAM: Male, 82 years old. Chest pain. Coughing and shortness of breath. TECHNIQUE: Single AP portable view of the chest. COMPARISON: Comparison is made with prior study September 11, 2022. FINDINGS: EKG electrodes are seen. Mild elevation of the right hemidiaphragm. There is no demonstrated pleural abnormality. There is mild cardiac enlargement. Normal mediastinum and rishabh. Normal visualized pulmonary arteries. There is atherosclerotic calcification of the aortic arch with tortuosity. There are diffuse degenerative changes of the visualized thoracic spine. Healed right rib fractures. There is no demonstrated abnormality of the visualized soft tissue structures of the upper abdomen. RAD/Chest 1 View (Portable) IMPRESSION: No acute abnormality is seen. Electronically Signed: Bacilio Mitchell MD at 13:07 EDT ,
--- NOTE | 2023-05-10 12:37 | ED.VIS.DYS ---
HPI History of Present Illness Chief Complaint: Shortness of Breath Informant: patient and family Onset/Context/Timing Onset: Days Context: gradual Timing: Continuous Quality: Positive for Dyspnea on exertion and Orthopnea Current Severity: Mild Maximum Severity: Moderate Worsened by: Exertion and Lying flat Relieved by: Oxygen Associated Symptoms Negative for fever or sore throat Chest Pain: Positive for None Narrative Narrative: 82-year-old male history of CHF, cardiomyopathy, diabetes, hypertension, CAD, A-fib on Coumadin, cardiac stents and chronic kidney disease. Patient's been more short of breath last week. Increased swelling in his legs. He is typically on Lasix 40 mg twice daily increased to 60 mg twice daily 3 days over the weekends that his leg swelling improved. He does have oxygen at home but has not needed till recently. Denies chest pain or fever. This is a was seen in a local urgent care he was hypoxic there and I sent him in the emergency department. PE Risk Factors: Negative for Cancer, OCP + Smoking + > 35, Prior DVT or PE, Recent immobilization, Recent surgery or Recent travel Prior similar symptoms: Yes Recent Illness/Hospitalization: No PFSH PFSH Medical History Atherosclerotic heart disease of [place] coronary artery without angina pectoris Atrial fibrillation and flutter Back pain Cardiology follow-up encounter Cardiomyopathy CHF (congestive heart failure) CPAP (continuous positive airway pressure) dependence Dietary restriction Easy bruising Encounter for routine circumcision Essential hypertension GERD (gastroesophageal reflux disease) High cholesterol History of echocardiogram History of edema History of stress test HLD (hyperlipidemia) Hyperglycemia Insulin dependent diabetes mellitus Leg cramps 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 Long-term use of high-risk medication Low iron Lung nodule Non-smoker On home oxygen therapy Paroxysmal A-fib Presence of stent in coronary artery (~07/04/18) Pressure ulcer Prostate disease Renal insufficiency Restrictive airway disease Thyroid disease TIA (transient ischemic attack) Walker as ambulation aid Wears glasses Home Medications omeprazole 20 mg capsule,delayed release 20 mg PO DAILY gerd 07/02/18 [History Last Taken 11/03/22 03:00] ferrous sulfate 325 mg (65 mg iron) tablet 325 mg PO BID anemia 02/19/20 [History Last Taken 09/06/22] cholecalciferol (vitamin D3) 25 mcg (1,000 unit) tablet 25 mcg PO DAILY [facility] 02/27/22 [History Last Taken 09/05/22] albuterol sulfate 2.5 mg/3 mL (0.083 %) solution for nebulization 2.5 mg (3 mL) inhalation Q4H PRN SOB/WHEEZING #0 mL 09/15/22 [Rx Last Taken Unknown] amiodarone 200 mg tablet 100 mg PO DAILY heart 09/15/22 [History Last Taken 11/03/22 03:00] atorvastatin 40 mg tablet 40 mg PO QHS cholesterol 09/15/22 [History Last Taken Unknown] cetirizine 10 mg capsule 10 mg PO HS allergies 09/15/22 [History Last Taken Unknown] aspirin 81 mg tablet,delayed release (Adult Aspirin Regimen) 81 mg PO DAILY heart health 09/28/22 [History Last Taken Unknown] metoprolol tartrate 50 mg tablet 75 mg PO BID HTN 09/28/22 [History Last Taken 11/03/22 03:00] empagliflozin 10 mg tablet (Jardiance) 10 mg PO DAILY@0800 blood glucose 10/20/22 [History Last Taken Unknown] insulin glargine-yfgn 100 unit/mL (3 mL) subcutaneous pen 25 unit subcut QHS slow acting insulin 10/20/22 [History Last Taken Unknown] insulin lispro 100 unit/mL subcutaneous pen (Humalog KwikPen (U-100) Insulin) 7 unit subcut TIDAC blood glucose 10/20/22 [History Last Taken Unknown] levothyroxine 50 mcg tablet 50 mcg PO 0600 thyroid 10/20/22 [History Last Taken 11/03/22 03:00] lorazepam 0.5 mg tablet 0.5 mg PO BID PRN Anxiety 10/20/22 [History Last Taken Unknown] tamsulosin 0.4 mg capsule 0.4 mg PO DAILY@1730 urine flow 10/20/22 [History Last Taken Unknown] warfarin 2 mg tablet (Jantoven) 2 mg PO 1700 blood thinner 10/20/22 [History Last Taken 10/30/22] prednisone 10 mg tablet 10 mg PO DAILYCM inflamation #90 tabs 10/23/22 [Rx Last Taken Unknown] albuterol sulfate 90 mcg/actuation aerosol inhaler 2 puff inhalation Q4H PRN shortness of breath or wheezing #8.5 grams 01/11/23 [Rx Last Taken Unknown] amlodipine 10 mg tablet 10 mg PO DAILY #90 tabs 03/08/23 [Rx Last Taken Unknown] furosemide 40 mg tablet 60 mg PO BIDLX water pill 03/08/23 [History Last Taken Unknown] Allergy/AdvReac Type Severity Reaction Status Date / Time No Known Allergies Allergy Verified 05/10/23 11:29 Family History Mother Hypertension Heart disease Surgical History History of cardiac catheterization History of hernia repair History of hip replacement History of partial knee replacement Presence of coronary angioplasty implant and graft (~07/04/18) Social History household members: spouse Smoking Status: Never smoker alcohol intake: never substance use type: does not use ROS ROS ED ROS Narrative Short of breath. Increased leg swelling. Review of Systems ROS Unobtainable: Denies due to encephalopathy Constitutional Constitutional ED: Denies chills or fever(s) Eyes Eyes: Denies blurry vision ENT ENT ED: Denies ear pain Cardiovascular Cardiovascular: Reports orthopnea; Denies chest pain or palpitations Respiratory/Chest Respiratory/Chest: Reports dyspnea, dyspnea on exertion and orthopnea; Denies cough Gastrointestinal Gastrointestinal: Denies abdominal pain or constipation Genitourinary Genitourinary ED: Denies dysuria or hematuria Musculoskeletal Musculoskeletal: Denies arthralgias or back pain Integumentary Denies abscess or Abrasions Neurologic Neurologic: Denies headache(s) Psychiatric Psychiatric: Denies anxiety or depression Endocrine Endocrinology: Denies cold intolerance Hematologic/Lymphatic Hematologic/Lymphatic: Denies easy bleeding, easy bruising or lymphadenopathy Allergic/Immunologic Allergic/Immunologic ED: Denies mouth swelling, tongue swelling or urticaria EXAM Physical Exam Narrative Exam Narrative: 82-year-old male no acute distress. Currently pulse ox 91% on room air. Son at bedside. H EENT exam unremarkable. Neck nontender no JVD. Lungs few scattered rales and crackles. Heart regular rate in the 60s.. Chest wall nontender. Abdomen soft nontender. Moving all 4 extremities. 1+ pitting edema both lower extremities. Calves are nontender without cords. Neurologically is awake and alert. Answering questions following commands. No focal motor deficits. Const Vital Signs: 05/10/23 11:29 05/10/23 11:38 05/10/23 12:35 Temperature 98 F Temperature Source Temporal Pulse Rate 108 H Respiratory Rate 22 H Respiratory Effort Short of Breath Labored Respiratory Depth Normal Respiratory Pattern Normal Blood Pressure 121/67 H Blood Pressure Mean 85 Pulse Ox 91 95 Oxygen Delivery Method Room Air Room Air Positive well nourished and well developed; Negative for cachectic, contractures or unkempt General Appearance ED: well developed and NAD; Negative for unkempt, cachectic, contractures or pallor Nutritional Appearance: Negative for cachectic HEENT Reports moist mucous membranes atraumatic; Negative for trauma or tenderness Eyes PERRL and EOMs intact bilaterally General Eye ED: Negative for pale conjunctiva, scleral icterus or other Neck no lymphadenopathy, supple, no meningeal signs and no JVD General: Negative for tenderness Lymph Lymphatic: Negative for other Chest Wall Chest: Negative for other Resp normal respiratory effort and No clear to auscultation bilaterally Auscultation: rales; Negative for rhonchi, wheezes or diminished lung sounds Cardio regular rate, regular rhythm, S1 normal heart sound, S2 normal heart sound and no murmurs Rate: Negative for bradycardia or tachycardic GI non-tender and non-distended Inspection: Negative for other Auscultation: normoactive bowel sounds Palpation: soft; Negative for tender or guarding Bladder / Kidney Exam: No other Back/Spine no CVA tenderness and normal to inspection General Back: Negative for CVA tenderness Extremity Negative for normal to inspection General Extremety ED: Yes edema; Negative for tenderness General Extremity: edema Neuro oriented x3 and CN's II-XII intact bilaterally Sensorium / Orientation: alert, oriented to person, oriented to place and oriented to time; Negative for orientation impaired, confused, lethargic or stuporous Motor Exam: strength 5/5 throughout Psych mental status grossly normal Appearance: Negative for unkempt Attitude: No agitated Mood & Affect: Negative for depressed, anxious or tearful Thought Process: normal thought process Skin no wounds and skin turgor normal General Skin Exam: Negative for jaundice or pallor MDM MDM MDM Narrative Medical decision making narrative: 82-year-old [facility] male with known CHF. Has had increasing shortness of breath and hypoxia. At home he is needed oxygen. Clinically I think is a CHF, versus viral syndrome, versus pleural effusions, AR, pneumonia versus other etiologies. Cardiac work-up will be done. He is on Coumadin I will also obtain an INR. Repeat exam patient is doing well at 3:20. He was ambulated his pulse ox with maintained between 88 and 92 on room air. He said he did not feel short of breath at all he feels fine. I suspect this is his baseline oxygenation. I discussed with he and his son all his test results. They are both comfortable with him being discharged home. Clinically I suspect he had a recent URI. Combination of his CHF that he improved by increasing his Lasix at home. Intermittent he is also on prednisone and inhaler for his asthma. He will continue his Lasix at 40 twice a day which is his baseline. His prednisone at 10 mg a day. Uses inhaler as needed. Follow-up with his primary care physician and have his kidney function rechecked to ensure its improving. Or not worsening. Return if worse. History & Record Review Discussion w/independent historian: Patient and Family Additional record(s) reviewed:: Prior inpatient record, Prior outpatient record, Prior ED visit and Prior labs Lab Data Attestation: I reviewed the patient's lab results. Lab results narrative: CBC unremarkable. White count of 10. H&H of 14 and 45. Platelets 163. Patient is on Coumadin his INR is 1.8 subtherapeutic. Electrolytes show gap of 5. BUN and creatinine are 37 and 2.26. Glucose 199. Troponin is normal at 14. His BNP is only 79. These are baseline labs for this patient when looking at prior studies. His creatinine is slightly elevated. Labs: Laboratory Results - last 24 hr 05/10/23 11:48 WBC 10.1 RBC 4.84 Hgb 14.3 Hct 45.0 MCV 93.0 MCH 29.5 MCHC 31.8 L RDW Std Deviation 51.5 H RDW Coeff of [place]ley 15.0 H Plt Count 163 MPV 9.3 Immature Gran % (Auto) 0.500 Neut % (Auto) 82.3 H Lymph % (Auto) 10.6 L [place] % (Auto) 4.9 Eos % (Auto) 1.4 Baso % (Auto) 0.3 Absolute Neuts (auto) 8.3 H Absolute Lymphs (auto) 1.07 Nucleated RBC % 0 PT 20.8 H INR 1.8 Sodium 140 Potassium 3.5 Chloride 102 Carbon Dioxide 33.0 H Anion Gap 5 BUN 37 H Creatinine 2.26 H Estim Creat Clear Calc 22.68 Est GFR (MDRD) Af Amer 36 L Est GFR (MDRD) Non-Af 30 L BUN/Creatinine Ratio 16.4 Glucose 199 H Calcium 9.1 Troponin I High Sens 14 B-Natriuretic Peptide 79.4 Radiography Chest X-Ray - ED: 1 View, Read by ED Physician, Read by Radiologist, Heart, Lungs, Mediastinum, Bony Structures, No Acute Disease and Chronic Changes Diagnostic Testing: Clinical Impression(s) from Imaging Studies Chest X-Ray 05/10/23 12:37 IMPRESSION: No acute abnormality is seen. Electronically Signed: Bacilio Mitchell MD at 13:07 EDT , Chest x-ray, portable, single view shows no acute abnormality. Chronic changes. Interpreted both by myself and the radiologist. No significant signs of CHF nor pleural effusions. No pneumonia. Rhythm Strip Rhythm Strip: Sinus Rhythm Rate: 62 Ectopy: PAC(s) EKG Initial EKG: Attestation: I personally reviewed and interpreted this EKG as follows: Interpretation: Sinus Rhythm and No Acute Injury Pattern Comments: Normal sinus rhythm rate of 62 no acute signs of AR or ischemia. Occasional PACs. Prior EKG tracings: available for review Prior: Unchanged Discharge Plan Triage Chief Complaint: Shortness of Breath ED Provider: Bienvenido Bhagat Dx/Rx/DC Orders Clinical Impression: Acute dyspnea, Asthma, Viral URI, History of heart failure, History of diabetes mellitus, History of chronic kidney disease Instructions: ED Dyspnea Prescriptions: No Action cholecalciferol (vitamin D3) 25 mcg (1,000 unit) tablet 25 mcg PO DAILY aspirin [Adult Aspirin Regimen] 81 mg tablet,delayed release (DR/EC) 81 mg PO DAILY metoprolol tartrate 50 mg tablet 75 mg PO BID furosemide 40 mg tablet 60 mg PO BIDLX Rx Instructions: 60mg PO BID x3-5 and then return to Lasix 40mg BID amlodipine 10 mg tablet 10 mg PO DAILY Qty: 90 3RF omeprazole 20 MG capsule 20 mg PO DAILY albuterol sulfate 2.5 mg /3 mL (0.083 %) Solution For Nebulization 2.5 mg inhalation Q4H PRN (Reason: SOB/WHEEZING) Qty: 0 0RF atorvastatin 40 mg tablet 40 mg PO QHS amiodarone 200 mg tablet 100 mg PO DAILY cetirizine 10 mg capsule 10 mg PO HS tamsulosin 0.4 mg capsule 0.4 mg PO DAILY@1730 levothyroxine 50 mcg tablet 50 mcg PO 0600 warfarin [Jantoven] 2 mg tablet 2 mg PO 1700 Patient Comments: Will stop 10/31 for surgery 11/03 insulin lispro [Humalog KwikPen Insulin] 100 unit/mL insulin pen 7 unit subcut TIDAC Jardiance 10 mg tablet 10 mg PO DAILY@0800 insulin glargine-yfgn 100 unit/mL (3 mL) insulin pen 25 unit subcut QHS lorazepam 0.5 mg Tablet 0.5 mg PO BID PRN (Reason: Anxiety) ferrous sulfate 325 mg (65 mg iron) tablet 325 mg PO BID prednisone 10 mg tablet 10 mg PO DAILYCM Qty: 90 3RF albuterol sulfate 90 mcg/actuation HFA aerosol inhaler 2 puff inhalation Q4H PRN (Reason: shortness of breath or wheezing) Qty: 8.5 6RF Rx Instructions: administer with spacer Primary Care Provider: Eric Newton Referrals: Eric Newton MD [Primary Care Provider] - 1 Week Activity Restrictions/Additional Instructions: I think this was a combination of your congestive heart failure and most likely a viral respiratory infection. Also irritation of your lungs and your asthma. Continue using your Lasix at 40 mg twice a day. Continue using your prednisone 10 mg daily. You may increase that if you are wheezing more to 20 mg a day. Use your inhaler as needed. Your kidney function was around 30% today which is your baseline. Similar to prior labs. Follow-up with your primary care physician to ensure you are improving. Return if you are feeling worse. Watch your blood sugars daily. Disposition Disposition: Home, Self Care
[2023-05-10 12:40] LABS: Absolute Lymphocyte Count 1.07 X10^3/uL (0.83-4.51); Absolute Neutrophil Count 8.3 X10^3/uL (2.0-7.7); Basophil# 0.03 X10^3/uL; Basophil% 0.3 % (0-1); Eosinophil# 0.14 X10^3/uL; Eosinophils% 1.4 % (0-5); Hemoglobin 14.3 g/dL (13.0-16.5); Lymphocyte # 1.07 X10^3/ul (0.83-4.51); Lymphocyte % 10.6 % (19-41); Mean Corp Hgb Conc 31.8 g/dL (32-36); Mean Corpuscular Hgb 29.5 pg (27.0-32.0); Mean Platelet Vol. 9.3 fl (6.2-12.0); Monocyte% 4.9 % (0-10); NRBC Flagged by Analyzer 0 % (0-5); Neutrophil # 8.34 X10^3/uL (2.7-7.7); Neutrophil % 82.3 % (47-70); Platelet Count 163 K/mm3 (150-450); RBC Distribution Width SD 51.5 fl (35.1-43.9); Red Blood Count 4.84 M/mm3 (4.6-6.2); White Blood Count 10.1 K/mm3 (4.4-11.0)
[2023-05-10 12:47] LABS: International Normalized Ratio 1.8; Prothrombin Time (Protime)PT. 20.8 SECONDS (11.7-14.9)
[2023-05-10 12:52] LABS: BNP,B-Type NATRIURETIC PEPTIDE 79.4 pg/mL (0-100)
[2023-05-10 12:53] LABS: Anion Gap 5 (5-15); BUN 37 mg/dL (7-18); BUN/Creat Ratio 16.4 RATIO (10-20); Calcium,Total 9.1 mg/dL (8.5-10.1); Chloride 102 mmol/L (98-107); Creatinine, Serum 2.26 mg/dL (0.70-1.30); EST Glomerular Filtration Rate 30 mL/min (>60); Est Glom Filt Rate - Afr Amer 36 mL/min (>60); Estimated Creatinine Clearance 22.68 ml/min; Glucose 199 mg/dL (74-106); Potassium 3.5 mmol/L (3.5-5.1); Sodium Level 140 mmol/L (136-145); Troponin-I HS 14 pg/mL (3.0-78.0)
[2023-05-10] MEDS: Furosemide 40 MG Tablet PO (14:55)
[2023-05-10 15:39] VITALS: BP 142/69; PULSE 72; RESP 16; O2SAT 98
== END 2023-05-10 15:41 | disposition home or self-care (01) ==
PROVIDERS: Emergency Provider Emergency Medicine; PCP Family Medicine; Visit Provider Emergency Medicine
DX: R06.00 Dyspnea, unspecified (principal); I50.9 Heart failure, unspecified; E11.22 Type 2 diabetes mellitus with diabetic chronic kidney disease; I48.0 Paroxysmal atrial fibrillation; J45.909 Unspecified asthma, uncomplicated; J06.9 Acute upper respiratory infection, unspecified; I25.10 Atherosclerotic heart disease of native coronary artery without angina pectoris; N18.9 Chronic kidney disease, unspecified; Z95.5 Presence of coronary angioplasty implant and graft; Z79.01 Long term (current) use of anticoagulants; Z86.73 Personal history of transient ischemic attack (TIA), and cerebral infarction without residual deficits; Z99.81 Dependence on supplemental oxygen
CPT/HCPCS: 71045; 80048; 83880; 84484; 85025; 85610; 93005; 99284; A4216

== ENCOUNTER → 2023-05-15 | Outpatient (CLI) | payer SELFPAY, OTHER ==
--- NOTE | 2023-05-15 10:47 | CDU_ITS ---
Reason For Study: S/P TCAR Rt. Velocities/BP Lt. Velocities/BP Prox CCA 67.4/13.5 cm/sec. Prox CCA 85.0/14.6 cm/sec. Mid CCA 58.9/10.7 cm/sec. Mid CCA 80.6/11.3 cm/sec. Dist CCA 60.7/13.5 cm/sec. Dist CCA 79.5/13.5 cm/sec. Prox ICA 102.8/26.1 cm/sec. Prox ICA 71.8/17.0 cm/sec. Mid ICA 99.2/20.6 cm/sec. Mid ICA 70.0/24.3 cm/sec. Dist ICA 82.7/20.6 cm/sec. Dist ICA 70.3/16.6 cm/sec. Rt. ICA/CCA = 1.7. Lt. ICA/CCA = .9. Prox ECA 188.7/13.3 cm/sec. Prox ECA 141.2/7.9 cm/sec. Rt. Vert. 33.3/5.8 cm/sec. Lt. Vert. 42.8/9.7 cm/sec. Right Extracranial There is heterogeneous, irregular atherosclerotic plaque noted in the right common carotid artery. There is heterogeneous, irregular atherosclerotic plaque noted in the right internal carotid artery. Stent noted in the right CCA distal to ICA mid. There is heterogeneous, irregular atherosclerotic plaque noted in the right external carotid artery. Antegrade flow is noted in the right vertebral artery. Left Extracranial There is heterogeneous, irregular atherosclerotic plaque noted in the left common carotid artery. There is heterogeneous, irregular atherosclerotic plaque noted in the left internal carotid artery. There is heterogeneous, irregular atherosclerotic plaque noted in the left external carotid artery. Antegrade flow is noted in the left vertebral artery. Procedure Carotid Duplex [id number]. This is a Carotid Duplex examination using B-mode, color flow and specral Doppler. The exam was of fair technical quality due to pt coughing. The study was technically difficult. Exam performed in department. VL/Carotid Duplex Ultrasound Interpretation Summary Mild (<50%) stenosis right extracranial internal carotid. Mild (<50%) stenosis left extracranial internal carotid. Patent and antegrade vertebrals bilaterally. Ordering Physician: Guera Chow Referring Physician: Guera Chow Performed By: Angus Pereyra RVT
== END | disposition home or self-care (01) ==
LOC: CVS 10:47
PROVIDERS: PCP Family Medicine; Referring Provider Physician Assistant; Visit Provider Physician Assistant
DX: I65.21 Occlusion and stenosis of right carotid artery (principal)
CPT/HCPCS: 93880

== ENCOUNTER → 2023-05-22 | Outpatient (CLI) | payer OTHER, SELFPAY ==
[2023-05-22 10:47] LABS: Hematocrit 45.1 % (40-54); Hemoglobin 13.9 g/dL (13.0-16.5); Mean Corp Hgb Conc 30.8 g/dL (32-36); Mean Corpuscular Hgb 28.2 pg (27.0-32.0); Mean Corpuscular Volume 91.5 fL (80-94); Mean Platelet Vol. 8.8 fl (6.2-12.0); Platelet Count 205 K/mm3 (150-450); RBC Distribution Width CV 14.7 % (11.6-14.6); RBC Distribution Width SD 49.3 fl (35.1-43.9); Red Blood Count 4.93 M/mm3 (4.6-6.2); White Blood Count 11.5 K/mm3 (4.4-11.0)
[2023-05-22 11:53] LABS: Protein, Urine (Random) 36.8 mg/dL (<11.9); Protein:Creat Ratio 447 mg/g CRE (0-200)
[2023-05-22 11:55] LABS: Albumin, Serum 3.1 g/dL (3.2-5.0); BUN 39 mg/dL (7-18); Calcium,Total 9.3 mg/dL (8.5-10.1); Chloride 107 mmol/L (98-107); Creatinine, Serum 1.95 mg/dL (0.70-1.30); EST Glomerular Filtration Rate 35 mL/min (>60); Est Glom Filt Rate - Afr Amer 43 mL/min (>60); Glucose 114 mg/dL (74-106); Phosphorus 3.1 mg/dL (2.5-4.9); Potassium 3.7 mmol/L (3.5-5.1); Sodium Level 142 mmol/L (136-145)
[2023-05-23 08:32] LABS: PTHIN 137.6 pg/mL (18.4-80.1)
== END | disposition home or self-care (01) ==
PROVIDERS: PCP Family Medicine; Visit Provider Internal Medicine Nephrology
DX: E11.22 Type 2 diabetes mellitus with diabetic chronic kidney disease (principal); N18.32 Chronic kidney disease, stage 3b
CPT/HCPCS: 36415; 80069; 82570; 83970; 84156; 85027

== ENCOUNTER → 2023-07-05 | Outpatient (CLI) | payer SELFPAY, OTHER ==
--- NOTE | 2023-07-05 14:31 | RAD_ITS ---
STUDY: X-RAY CHEST REASON FOR EXAM: Male, 82 years old. Decreased right lung sounds. Shortness of breath. TECHNIQUE: Frontal and lateral views of the chest. COMPARISON: May 10, 2023 FINDINGS: Cardiomegaly, aortic tortuosity with calcification, prominent central pulmonary arteries hyperinflation of the left lung, elevation of the right hemidiaphragm with atelectasis of the right base and marked osteoarthritic changes of both glenohumeral joints and diffuse mild thoracic spondylosis, all unchanged from prior study. No acute or emergent finding. No abnormality of the visualized soft tissue structures of the upper abdomen. RAD/Chest PA and Lateral IMPRESSION: Stable chest with no acute or active cardiopulmonary disease. Electronically Signed: Kodak Mondragon MD at 15:51 EST ,
[2023-07-05 15:25] LABS: Absolute Lymphocyte Count 0.85 X10^3/uL (0.83-4.51); Absolute Neutrophil Count 8.4 X10^3/uL (2.0-7.7); Basophil# 0.02 X10^3/uL; Basophil% 0.2 % (0-1); Eosinophil# 0.01 X10^3/uL; Eosinophils% 0.1 % (0-5); Hematocrit 45.9 % (40-54); Hemoglobin 14.8 g/dL (13.0-16.5); Lymphocyte # 0.85 X10^3/ul (0.83-4.51); Lymphocyte % 8.8 % (19-41); Mean Corp Hgb Conc 32.2 g/dL (32-36); Mean Corpuscular Hgb 29.2 pg (27.0-32.0); Mean Corpuscular Volume 90.7 fL (80-94); Mean Platelet Vol. 9.7 fl (6.2-12.0); Monocyte# 0.34 X10^3/uL; Monocyte% 3.5 % (0-10); NRBC Flagged by Analyzer 0.2 % (0-5); Neutrophil # 8.37 X10^3/uL (2.7-7.7); Neutrophil % 86.5 % (47-70); Platelet Count 188 K/mm3 (150-450); RBC Distribution Width CV 15.5 % (11.6-14.6); RBC Distribution Width SD 50.1 fl (35.1-43.9); Red Blood Count 5.06 M/mm3 (4.6-6.2); White Blood Count 9.7 K/mm3 (4.4-11.0)
[2023-07-05 15:52] LABS: Anion Gap 8 (5-15); BUN 47 mg/dL (7-18); BUN/Creat Ratio 20.4 RATIO (10-20); Calcium,Total 8.6 mg/dL (8.5-10.1); Chloride 99 mmol/L (98-107); EST Glomerular Filtration Rate 29 mL/min (>60); Est Glom Filt Rate - Afr Amer 35 mL/min (>60); Glucose 231 mg/dL (74-106); Potassium 3.8 mmol/L (3.5-5.1); Sodium Level 139 mmol/L (136-145)
[2023-07-05 15:55] LABS: BNP,B-Type NATRIURETIC PEPTIDE 101.2 pg/mL (0-100)
== END | disposition home or self-care (01) ==
LOC: LAB 14:22
PROVIDERS: PCP Family Medicine; Referring Provider Nurse Practitioner Family; Visit Provider Nurse Practitioner Family
DX: I50.9 Heart failure, unspecified (principal); R06.09 Other forms of dyspnea; N28.9 Disorder of kidney and ureter, unspecified
CPT/HCPCS: 36415; 71046; 80048; 83880; 85025

== ENCOUNTER 2023-07-20 17:21 | Inpatient (IN) | payer OTHER, SELFPAY ==
[2023-07-20] VITALS (8 sets, daily range): BP systolic 143–161; BP diastolic 74–101; PULSE 79–90; RESP 14–18; TEMP 36.6–37.1; O2SAT 88–100; BMI 37.4; BMI 39.2
--- NOTE | 2023-07-20 17:49 | EKG12_ITS ---
Test Reason : EDEMA Blood Pressure : / mmHG Vent. Rate : 082 BPM Atrial Rate : 082 BPM P-R Int : 174 ms QRS Dur : 082 ms QT Int : 418 ms P-R-T Axes : 059 024 069 degrees QTc Int : 488 ms Normal sinus rhythm Nonspecific ST abnormality Prolonged QT Abnormal ECG Confirmed by RAKEL BHANDARI, ADAM ([id number]), newspaper editor ROMY GARCIA ([id number]) on 07/23/2023 1:35:43 P M Referred By: Confirmed By:DICK ELLINGTON MD
--- NOTE | 2023-07-20 18:08 | EX.ED.DYSGE1 ---
HPI <MARLINE John - Last Filed: 07/20/23 20:57> History of Present Illness Chief Complaint: Edema Narrative Narrative: Patient is an 82-year-old male with history of kidney disease, obesity, CHF, hypertension, GERD, atrial fibrillation who presents to the emergency department for fluid overload. Over the last several days, the patient states that he has been having worsening edema to his lower extremities that are traveling up past his knees. He states that his lower abdomen has been more swollen, he has been having more pain to his abdomen and back. Today he is having difficulty getting out of the chair and doing anything exertional. He talked to his financial quantitative analyst who referred him to the emergency department. Patient denies any fever or chills. He is currently on antibiotics for left great toe infection. PFS <MARLINE John - Last Filed: 07/20/23 20:57> [facility] Medical History Atherosclerotic heart disease of [place] coronary artery without angina pectoris Atrial fibrillation and flutter Back pain Cardiology follow-up encounter Cardiomyopathy CHF (congestive heart failure) CPAP (continuous positive airway pressure) dependence Dietary restriction Easy bruising Encounter for routine circumcision Essential hypertension GERD (gastroesophageal reflux disease) High cholesterol History of echocardiogram History of edema History of stress test HLD (hyperlipidemia) Hyperglycemia Insulin dependent diabetes mellitus 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 Long-term use of high-risk medication Low iron Lung nodule Non-smoker On home oxygen therapy Paroxysmal A-fib Presence of stent in coronary artery (~07/04/18) Pressure ulcer Prostate disease Renal insufficiency Restrictive airway disease Thyroid disease TIA (transient ischemic attack) Walker as ambulation aid Wears glasses Home Medications omeprazole 20 mg capsule,delayed release 20 mg PO DAILY gerd 07/02/18 [History Last Taken 11/03/22 03:00] ferrous sulfate 325 mg (65 mg iron) tablet 325 mg PO BID anemia 02/19/20 [History Last Taken 09/06/22] cholecalciferol (vitamin D3) 25 mcg (1,000 unit) tablet 25 mcg PO DAILY health maintenence 02/27/22 [History Last Taken 09/05/22] amiodarone 200 mg tablet 100 mg PO DAILY heart 09/15/22 [History Last Taken 11/03/22 03:00] atorvastatin 40 mg tablet 40 mg PO QHS cholesterol 09/15/22 [History Last Taken Unknown] cetirizine 10 mg capsule 10 mg PO HS allergies 09/15/22 [History Last Taken Unknown] aspirin 81 mg tablet,delayed release (Adult Aspirin Regimen) 81 mg PO DAILY heart health 09/28/22 [History Last Taken Unknown] insulin glargine-yfgn 100 unit/mL (3 mL) subcutaneous pen 20 unit subcut QHS slow acting insulin 10/20/22 [History Last Taken Unknown] insulin lispro 100 unit/mL subcutaneous pen (Humalog KwikPen (U-100) Insulin) 7 unit subcut TIDAC blood glucose 10/20/22 [History Last Taken Unknown] levothyroxine 50 mcg tablet 50 mcg PO 0600 thyroid 10/20/22 [History Last Taken 11/03/22 03:00] lorazepam 0.5 mg tablet 0.5 mg PO BID PRN Anxiety 10/20/22 [History Last Taken Unknown] tamsulosin 0.4 mg capsule 0.4 mg PO DAILY@1730 urine flow 10/20/22 [History Last Taken Unknown] warfarin 2 mg tablet (Jantoven) 2 mg PO 1700 blood thinner 10/20/22 [History Last Taken 10/30/22] prednisone 10 mg tablet 10 mg PO DAILYCM inflamation #90 tabs 10/23/22 [Rx Last Taken Unknown] albuterol sulfate 90 mcg/actuation aerosol inhaler 2 puff inhalation Q4H PRN shortness of breath or wheezing #8.5 grams 01/11/23 [Rx Last Taken Unknown] amlodipine 10 mg tablet 10 mg PO DAILY #90 tabs 03/08/23 [Rx Last Taken Unknown] tizanidine 6 mg capsule 6 mg PO Q8H PRN muscle spasticity 07/05/23 [History Last Taken Unknown] carvedilol 12.5 mg tablet (Coreg) 12.5 mg PO BID #60 tabs 07/06/23 [Rx Last Taken Unknown] furosemide 40 mg tablet 40 mg PO BIDLX water pill 07/10/23 [History Last Taken Unknown] doxycycline monohydrate 100 mg capsule 100 mg PO BID 07/20/23 [History Last Taken Unknown] Allergy/AdvReac Type Severity Reaction Status Date / Time No Known Allergies Allergy Verified 07/20/23 17:22 Family History (Updated 07/20/23 @ 21:[address] Susan Barrera MD) Mother Hypertension Heart disease Father No problems noted. Surgical History History of cardiac catheterization History of hernia repair History of hip replacement History of partial knee replacement Presence of coronary angioplasty implant and graft (~07/04/18) Status post carotid surgery Social History household members: spouse Smoking Status: Never smoker alcohol intake: never substance use type: does not use ROS <MARLINE John - Last Filed: 07/20/23 20:57> ROS ED ROS Narrative Constitutional: Negative for fever, chills, weight loss. Positive for weakness Eyes: Negative for vision loss, vision change, double vision ENT: Negative for any sore throat, ear pain, congestion Cardiovascular: Negative for any chest pain, tightness, palpitations Respiratory: Negative for any cough, sputum production, hemoptysis. Positive for dyspnea, dyspnea on exertion, orthopnea Gastrointestinal: Negative for any nausea, vomiting, diarrhea, constipation, blood in stool, blood in vomit. Positive for abdominal pain : Negative for any urinary frequency, dysuria, retention, blood in urine Muscle skeletal: Negative for any myalgias, arthralgias, neck pain, back pain Neurological: Negative for any headache, syncope, numbness or tingling, dizziness Skin: Negative for any rashes, lumps, itching, abrasions, lacerations Psychiatric: Negative for any depression, anxiety, stress, suicidal ideation, homicidal ideation Hematologic: Negative for any easy bruising, excessive bruising, easy bleeding Allergies: Negative for any eczema, hives, rash EXAM <MARLINE John - Last Filed: 07/20/23 20:57> Physical Exam Narrative Exam Narrative: Vital signs reviewed. Patient does appear fluid overloaded, patient appears to be breathing rapidly, slight wheezing. HEET: Head normocephalic atraumatic, TMs clear bilaterally. Posterior pharynx is clear, moist mucous membranes. Nares clear bilaterally. Neck: Supple with no lymphadenopathy or tenderness. No signs of meningismus. Cardiac: Regular rate and rhythm no murmurs gallops or rubs, equal peripheral pulses bilaterally. Respiratory: Diminished lung sounds at the bases with expiratory wheezing. No chest tenderness. Abdomen: Patient's abdomen is distended, firm, hypoactive bowel sounds. No peritoneal signs.. No abdominal bruit or pulsatile masses. No hepatosplenomegaly Extremities: +3 to +4 pitting edema to the feet and lower legs. Patient's left great toe on the solar aspect shows some skin irritation with some redness, patient does have history of infection there and is currently on doxycycline., no signs of gross trauma or deformity. Active full range of motion of all extremities. Neuro: Cranial nerves II through XII intact, no focal neurological deficits. Skin: Clean dry and intact with no rash, purpura, petechiae, vesicles or pustules. Backs/flank: No CVA tenderness, no midline spinal tenderness, no deformity. Psych: Normal mood and affect. No SI, HI or acute psychosis. Const Vital Signs: 07/20/23 17:22 07/20/23 17:56 07/20/23 18:13 Temperature 98.3 F Temperature Source Temporal Pulse Rate 80 Respiratory Rate 14 Respiratory Effort Short of Breath Labored Respiratory Pattern Tachypnea Blood Pressure 143/74 H Blood Pressure Mean 97 Pulse Ox 92 95 Oxygen Delivery Method Room Air Room Air Oxygen Flow Rate (L/min) 07/20/23 19:04 07/20/23 19:04 07/20/23 19:34 Temperature 98.7 F Temperature Source Oral Pulse Rate 89 79 Respiratory Rate 18 14 Respiratory Effort Respiratory Pattern Blood Pressure 161/81 H 159/85 H Blood Pressure Mean 107 109 Pulse Ox 88 97 99 Oxygen Delivery Method Room Air Nasal Cannula Nasal Cannula Oxygen Flow Rate (L/min) 2 2 Positive well nourished and obese Nutritional Appearance: obese <Dr. Ignacio Jeff, DO - Last Filed: 07/20/23 22:26> Physical Exam Const Vital Signs: 07/20/23 17:22 07/20/23 17:56 07/20/23 18:13 Temperature 98.3 F Temperature Source Temporal Pulse Rate 80 Respiratory Rate 14 Respiratory Effort Short of Breath Labored Respiratory Pattern Tachypnea Blood Pressure 143/74 H Blood Pressure Mean 97 Pulse Ox 92 95 Oxygen Delivery Method Room Air Room Air Oxygen Flow Rate (L/min) 07/20/23 19:04 07/20/23 19:04 07/20/23 19:34 Temperature 98.7 F Temperature Source Oral Pulse Rate 89 79 Respiratory Rate 18 14 Respiratory Effort Respiratory Pattern Blood Pressure 161/81 H 159/85 H Blood Pressure Mean 107 109 Pulse Ox 88 97 99 Oxygen Delivery Method Room Air Nasal Cannula Nasal Cannula Oxygen Flow Rate (L/min) 2 2 MDM <Kulwant GalarzaRETA monson-C - Last Filed: 07/20/23 20:57> MDM Lab Data Labs: Laboratory Results - last 24 hr 07/20/23 07/20/23 18:12 18:35 WBC 8.9 RBC 4.94 Hgb 14.5 Hct 43.9 MCV 88.9 MCH 29.4 MCHC 33.0 RDW Std Deviation 49.6 H RDW Coeff of [place]ley 15.2 H Plt Count 190 MPV 9.8 Immature Gran % (Auto) 0.700 Neut % (Auto) 82.5 H Lymph % (Auto) 11.0 L [place] % (Auto) 5.6 Eos % (Auto) 0.1 Baso % (Auto) 0.1 Absolute Neuts (auto) 7.4 Absolute Lymphs (auto) 0.98 Nucleated RBC % 0 PT 24.4 H INR 2.2 APTT 31.2 Sodium 135 L Potassium 3.8 Chloride 97 L Carbon Dioxide 31.0 Anion Gap 7 BUN 41 H Creatinine 2.25 H Estim Creat Clear Calc 23.63 Est GFR (MDRD) Af Amer 36 L Est GFR (MDRD) Non-Af 30 L BUN/Creatinine Ratio 18.2 Glucose 230 H Lactic Acid 1.8 Calcium 9.5 Magnesium 2.0 Total Bilirubin 0.70 AST 19 ALT 31 Alkaline Phosphatase 137 H Troponin I High Sens 13 B-Natriuretic Peptide 57.4 Total Protein 7.3 Albumin 3.3 Globulin 4.0 Albumin/Globulin Ratio 0.8 L Urine Color Yellow Urine Clarity Cloudy Urine pH 5.0 Ur Specific [place] 1.015 Urine Protein 30 H Urine Glucose (UA) 100 H Urine Ketones Negative Urine Occult Blood 250 H Urine Nitrite Positive H Urine Bilirubin Negative Urine Urobilinogen Normal Ur Leukocyte Esterase 500 H Urine RBC 10-25 SEEN Urine WBC >100 SEEN Ur Squamous Epith Cells 5-10 SEEN Amorphous Sediment 1+ URATE Urine Bacteria 2+ Urine Mucus 0 SEEN Radiography Diagnostic Testing: Clinical Impression(s) from Imaging Studies Abdomen/Pelvis CT 07/20/23 19:10 IMPRESSION: Suspect constipation. Sigmoid diverticulosis without diverticulitis. Electronically Signed: Antonio Spencer MD at 19:49 EST , Chest X-Ray 07/20/23 19:15 IMPRESSION: No active disease. Electronically Signed: Antonio Spencer MD at 19:36 EST , Treatment and Re-Evaluation :: Patient appears to be in mild distress secondary to fluid overload. Patient is breathing rapidly, some expiratory wheezes. Differential diagnosis includes pneumonia, CHF exacerbation, bowel obstruction. Patient is also complaining of lower abdominal pain. Patient received basic laboratory values including a septic workup secondary to the patient having history of left foot infection. Chest x-ray to be completed interpreted by the ER physician. CBC, chemistries will be obtained to ensure there is no leukocytosis or electrolyte abnormality. I am concerned for some renal insufficiency. PT/INR will be completed, patient is on Coumadin. All radiologic examinations were read, reviewed by the emergency department attending. From these reads, a plan of care will be put in place. Patient's CBC was unremarkable, patient's PT/INR showed a PT of 24.4, INR 2.2, patient's chemistries showed creatinine of 2.25, GFR of 30 with a BUN of 41. Patient's alkaline phosphatase 137. Lactic acid was negative, troponin was negative. BNP was 57.4. Patient's two-view chest x-ray that was interpreted by ER physician shows no active disease. Patient's urinalysis showed 2+ bacteria greater than 100 white blood cells, positive nitrates, positive leukocyte esterase. Urine culture was sent, IV Rocephin given. CT scan of the abdomen pelvis shows constipation, sigmoid diverticulosis without diverticulitis. At this time, patient will need to ambulate around the department to see if he has any desaturation. Patient ambulated around the department, patient dropped to 86%. Patient felt weak, dizzy. At this time, do believe the patient needs to be admitted to the hospital. Patient be admitted for hypoxia on exertion, UTI, fluid overload. I will speak to hospitalist. All questions answered, patient stable for admission. <Dr. Ignacio Jeff, DO - Last Filed: 07/20/23 22:26> [facility] Narrative Medical decision making narrative: Patient appears to be in mild distress secondary to fluid overload. Patient is breathing rapidly, some expiratory wheezes. Differential diagnosis includes pneumonia, CHF exacerbation, bowel obstruction. Patient is also complaining of lower abdominal pain. Patient received basic laboratory values including a septic workup secondary to the patient having history of left foot infection. Chest x-ray to be completed interpreted by the ER physician. CBC, chemistries will be obtained to ensure there is no leukocytosis or electrolyte abnormality. I am concerned for some renal insufficiency. PT/INR will be completed, patient is on Coumadin. All radiologic examinations were read, reviewed by the emergency department attending. From these reads, a plan of care will be put in place. Patient's CBC was unremarkable, patient's PT/INR showed a PT of 24.4, INR 2.2, patient's chemistries showed creatinine of 2.25, GFR of 30 with a BUN of 41. Patient's alkaline phosphatase 137. Lactic acid was negative, troponin was negative. BNP was 57.4. Patient's two-view chest x-ray that was interpreted by ER physician shows no active disease. Patient's urinalysis showed 2+ bacteria greater than 100 white blood cells, positive nitrates, positive leukocyte esterase. Urine culture was sent, IV Rocephin given. CT scan of the abdomen pelvis shows constipation, sigmoid diverticulosis without diverticulitis. At this time, patient will need to ambulate around the department to see if he has any desaturation. Patient ambulated around the department, patient dropped to 86%. Patient felt weak, dizzy. At this time, do believe the patient needs to be admitted to the hospital. Patient be admitted for hypoxia on exertion, UTI, fluid overload. I will speak to hospitalist. All questions answered, patient stable for admission. This patient was seen with a PA/GRADE SCHOOL TEACHER Individually assessed they patient including history and physical. I have reviewed everything on the chart that is available and agree with the documentation provided by the PA/GRADE SCHOOL TEACHER including discussion about the assessment, treatment plan, discussion, and return precautions. Patient was sent by the heart group to rule out CHF. Ultimately his BNP was normal. Chest x-ray showed no evidence of pulmonary vascular congestion. He does have lower extremity edema and he is hypoxic when he ambulates down to 86-87% on room air. He does wear 2 L at night with CPAP but otherwise does not wear. Chest x-ray again on my interpretation shows no acute process. EKG on my interpretation shows sinus rhythm at 82 bpm without sign of ischemic changes. Urinalysis likely consistent with UTI. Patient will be treated for this. Urine culture is sent. CT of the abdomen pelvis shows no acute findings other than constipation. Patient admits to recent constipation x 2 to 3 days. Discussed with hospitalist for admission. Impression: 1. Hypoxia 2. History of CHF 3. UTI 4. Constipation Lab Data Attestation: I reviewed the patient's lab results. Labs: Laboratory Results - last 24 hr 07/20/23 07/20/23 18:12 18:35 WBC 8.9 RBC 4.94 Hgb 14.5 Hct 43.9 MCV 88.9 MCH 29.4 MCHC 33.0 RDW Std Deviation 49.6 H RDW Coeff of [place] 15.2 H Plt Count 190 MPV 9.8 Immature Gran % (Auto) 0.700 Neut % (Auto) 82.5 H Lymph % (Auto) 11.0 L [place] % (Auto) 5.6 Eos % (Auto) 0.1 Baso % (Auto) 0.1 Absolute Neuts (auto) 7.4 Absolute Lymphs (auto) 0.98 Nucleated RBC % 0 PT 24.4 H INR 2.2 APTT 31.2 Sodium 135 L Potassium 3.8 Chloride 97 L Carbon Dioxide 31.0 Anion Gap 7 BUN 41 H Creatinine 2.25 H Estim Creat Clear Calc 23.63 Est GFR (MDRD) Af Amer 36 L Est GFR (MDRD) Non-Af 30 L BUN/Creatinine Ratio 18.2 Glucose 230 H Lactic Acid 1.8 Calcium 9.5 Magnesium 2.0 Total Bilirubin 0.70 AST 19 ALT 31 Alkaline Phosphatase 137 H Troponin I High Sens 13 B-Natriuretic Peptide 57.4 Total Protein 7.3 Albumin 3.3 Globulin 4.0 Albumin/Globulin Ratio 0.8 L Urine Color Yellow Urine Clarity Cloudy Urine pH 5.0 Ur Specific [place] 1.015 Urine Protein 30 H Urine Glucose (UA) 100 H Urine Ketones Negative Urine Occult Blood 250 H Urine Nitrite Positive H Urine Bilirubin Negative Urine Urobilinogen Normal Ur Leukocyte Esterase 500 H Urine RBC 10-25 SEEN Urine WBC >100 SEEN Ur Squamous Epith Cells 5-10 SEEN Amorphous Sediment 1+ URATE Urine Bacteria 2+ Urine Mucus 0 SEEN Radiography Diagnostic Testing: Clinical Impression(s) from Imaging Studies Abdomen/Pelvis CT 07/20/23 19:10 IMPRESSION: Suspect constipation. Sigmoid diverticulosis without diverticulitis. Electronically Signed: Antonio Spencer MD at 19:49 EST , Chest X-Ray 07/20/23 19:15 IMPRESSION: No active disease. Electronically Signed: Antonio Spencer MD at 19:36 EST Reading Location ID and State: [id number] / [employer] [facility] [employer] Tel , Service support , Discharge Plan Dx/Rx/DC Orders Clinical Impression: Urinary tract infection, Leg edema, Chronic kidney disease, Hypoxia, Fluid overload Disposition Disposition: Acute Care Hospital [facility] Discharge Date/Time: 07/20/23 21:37
[2023-07-20 18:22] LABS: Absolute Lymphocyte Count 0.98 X10^3/uL (0.83-4.51); Absolute Neutrophil Count 7.4 X10^3/uL (2.0-7.7); Basophil# 0.01 X10^3/uL; Basophil% 0.1 % (0-1); Eosinophil# 0.01 X10^3/uL; Eosinophils% 0.1 % (0-5); Hematocrit 43.9 % (40-54); Hemoglobin 14.5 g/dL (13.0-16.5); Lymphocyte # 0.98 X10^3/ul (0.83-4.51); Mean Corpuscular Hgb 29.4 pg (27.0-32.0); Mean Corpuscular Volume 88.9 fL (80-94); Mean Platelet Vol. 9.8 fl (6.2-12.0); Monocyte% 5.6 % (0-10); NRBC Flagged by Analyzer 0 % (0-5); Neutrophil # 7.37 X10^3/uL (2.7-7.7); Neutrophil % 82.5 % (47-70); Platelet Count 190 K/mm3 (150-450); RBC Distribution Width CV 15.2 % (11.6-14.6); RBC Distribution Width SD 49.6 fl (35.1-43.9); Red Blood Count 4.94 M/mm3 (4.6-6.2); White Blood Count 8.9 K/mm3 (4.4-11.0)
[2023-07-20] MEDS: Morphine 4 MG/ML Syringe IV (18:22)
[2023-07-20] MEDS: Ondansetron 4 MG/2 ML Vial IV (18:22)
[2023-07-20 18:36] LABS: International Normalized Ratio 2.2; Prothrombin Time (Protime)PT. 24.4 SECONDS (11.7-14.9)
[2023-07-20 18:37] LABS: Partial Thromboplast Time 31.2 Seconds (24.1-36.2)
[2023-07-20 18:41] LABS: ALB/GLOB Ratio 0.8 RATIO (0.9-2.4); AST(SGOT) 19 U/L (15-37); Alanine Aminotransfer ALT/SGPT 31 U/L (16-61); Albumin, Serum 3.3 g/dL (3.2-5.0); Alkaline Phosphatase 137 U/L (45-117); Anion Gap 7 (5-15); BUN 41 mg/dL (7-18); BUN/Creat Ratio 18.2 RATIO (10-20); Calcium,Total 9.5 mg/dL (8.5-10.1); Chloride 97 mmol/L (98-107); Creatinine, Serum 2.25 mg/dL (0.70-1.30); EST Glomerular Filtration Rate 30 mL/min (>60); Est Glom Filt Rate - Afr Amer 36 mL/min (>60); Estimated Creatinine Clearance 23.63 ml/min; Glucose 230 mg/dL (74-106); Potassium 3.8 mmol/L (3.5-5.1); Protein, Total 7.3 g/dL (6.4-8.2); Sodium Level 135 mmol/L (136-145); Troponin-I HS 13 pg/mL (3.0-78.0)
[2023-07-20 18:43] LABS: BNP,B-Type NATRIURETIC PEPTIDE 57.4 pg/mL (0-100); Lactic Acid 1.8 mmol/L (0.4-1.9)
[2023-07-20 18:45] LABS: Mucous, Urine 0 SEEN /hpf (<or=2+)
[2023-07-20 18:51] LABS: Color, Urine Yellow (Yellow); Glucose, Dipstick 100 mg/dl (Normal); Ketone-Dipstick Negative (Negative); Leukocyte Esterase-Dipstick 500 /ul (Negative); Nitrite-Dipstick Positive (Negative); Occult Blood-Urine 250 /ul (Negative); Protein-Dipstick 30 mg/dl (Negative); Specific Gravity, Urine 1.015 (1.002-1.030); Urine Bilirubin Dipstick Negative (Negative); Urine Clarity Cloudy (Clear); Urine Urobilinogen Normal (Normal)
--- NOTE | 2023-07-20 19:10 | CT_ITS ---
STUDY: CT ABDOMEN AND PELVIS WITHOUT CONTRAST REASON FOR EXAM: Male, 82 years old. abdominal pain RADIATION DOSAGE (If Supplied By Facility): CTDIvol = ( 18.52 ) mGy, DLP = ( 1008.95 ) mGycm TECHNIQUE: Transaxial images were obtained from the dome of the diaphragm to the symphysis pubis without oral contrast, and without intravenous contrast. Sagittal and coronal images were reconstructed. Individualized dose optimization techniques were used for this CT. COMPARISON: 04/24/2019 FINDINGS: The visualized lung bases are unremarkable. The visualized portions of the heart are within normal limits. Normal liver. Normal gallbladder and extrahepatic biliary system. There are multiple benign calcified granulomata of the spleen. Normal pancreas. Normal bilateral adrenal glands. Normal right kidney. Normal left kidney. Normal visualized stomach. Normal small intestine. There are multiple colonic diverticula consistent with diverticulosis. Large amount of stool throughout the colon suggestive of constipation. The appendix is visualized and appears normal. Normal abdominal aorta. Normal inferior vena cava. Normal retroperitoneum. Normal urinary bladder. Normal abdominal wall. Status post right hip arthroplasty which produces streak artifact and obscures the pelvis. Mild levoscoliosis of the thoracic lumbar spine with degenerative disc disease. Compression fractures throughout the thoracic lumbar spine likely chronic. CT/Abdomen/Pelvis without Cont IMPRESSION: Suspect constipation. Sigmoid diverticulosis without diverticulitis. Electronically Signed: Antonio Spencer MD at 19:49 EST ,
--- NOTE | 2023-07-20 19:15 | RAD_ITS ---
STUDY: X-RAY CHEST REASON FOR EXAM: Male, 82 years old. shortness of breath TECHNIQUE: PA and lateral views of the chest. COMPARISON: 07/05/2023 FINDINGS: The lungs are clear and expanded. Elevated right hemidiaphragm which is unchanged. There is moderate cardiac enlargement. Normal mediastinum and rishabh. Normal visualized pulmonary arteries. Normal visualized aortic arch and descending thoracic aorta. Normal visualized thoracic spine. Normal visualized ribs, clavicles, and shoulders. There is no demonstrated abnormality of the visualized soft tissue structures of the upper abdomen. RAD/Chest PA and Lateral IMPRESSION: No active disease. Electronically Signed: Antonio Spencer MD at 19:36 EST ,
[2023-07-20 19:34] LABS: Amorphous Sediment 1+ URATE; Bacteria 2+ /hpf (None Seen); Red Blood Cells-Urine 10-25 SEEN /hpf (0-5); Squamous Epithelial Cells - UA 5-10 SEEN /hpf (0-5); White Blood Cells >100 SEEN /hpf (0-5)
[2023-07-20] MEDS: Ceftriaxone 1 GM/50 ML BAG IV (20:44)
--- NOTE | 2023-07-20 20:58 | PCM.HP.STD ---
HPI - General General Date of Admission: 07/20/23 Date of Service: 07/20/23 Chief Complaint: Dyspnea, orthopnea, edema, weight gain. HPI Narrative The patient is an 82 y/o M w/ PMHx: Obesity, KIM on CPAP, PAF, HTN, HLD, GERD, CAD s/p PCI RCA, Carotid disease s/p R carotid stent per Dr. 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 Cruz on chronic daily prednisone 10 mg, BPH, Chronic Fe deficiency, Hypothyroidism, CKD stage III unclear subtype (baseline Cr Cr 1.5-2.3) who presents to the [facility] ED on 07/20/23 who presents to the [facility] ED on 07/20/23 with several day history of significantly worsening weight gain, orthopnea, lower extremity swelling as well as some sensation of swelling into his abdomen with increasing constipation and generalized abdominal cramping as well as some flank discomfort with difficulty ambulating especially secondary to exertional dyspnea associated prompting call to his cardiology office who recommended ED evaluation. Workup in the ED included T98.3, heart rate 80, BP 143/74, respiratory rate 14, initially 92% on room air however decreased to 88% on room air with improvement to 99% on 2 L nasal cannula, CBC with WBC 8.9, hemoglobin 14.5, platelet 190 without marked shift, coags with PT 24.4, PTT 31.2, INR 2.2, CMP with sodium 135, chloride 97, BUN/creatinine 41/2.25, glucose 230, lactic acid 1.8, hepatic profile only marked for alk phos 137, BNP 57.4, troponin 13, urinalysis with specific gravity 1.015, protein 30, glucose 100, negative ketone, occult blood 250, nitrate positive, leukocyte Estrace 500, urine RBCs 10-25, urine WBCs greater than 100, urine bacteria 2+, blood culture x 2 pending per ED, urine culture pending per ED, chest x-ray with no acute cardiopulmonary findings, CT abdomen and pelvis with suspected constipation with sigmoid diverticulosis with no evidence of any diverticulitis. In the ED patient administered Zofran 4 mg IV x 1, morphine 4 mg IV x 1, Rocephin 1 g IV x 1 and lasix 40 mg IV x 1. [facility] Medical History Atherosclerotic heart disease of [place] coronary artery without angina pectoris Atrial fibrillation and flutter Back pain Cardiology follow-up encounter Cardiomyopathy CHF (congestive heart failure) CPAP (continuous positive airway pressure) dependence Dietary restriction Easy bruising Encounter for routine circumcision Essential hypertension GERD (gastroesophageal reflux disease) High cholesterol History of echocardiogram History of edema History of stress test HLD (hyperlipidemia) Hyperglycemia Insulin dependent diabetes mellitus Leg cramps [employer] for medical terminology (current) use of anticoagulants Long-term use of high-risk medication Low iron Lung nodule Non-smoker On home oxygen therapy Paroxysmal A-fib Presence of stent in coronary artery (~07/04/18) Pressure ulcer Prostate disease Renal insufficiency Restrictive airway disease Thyroid disease TIA (transient ischemic attack) Walker as ambulation aid Wears glasses Home Medications omeprazole 20 mg capsule,delayed release 20 mg PO DAILY gerd 07/02/18 [History Last Taken 11/03/22 03:00] ferrous sulfate 325 mg (65 mg iron) tablet 325 mg PO BID anemia 02/19/20 [History Last Taken 09/06/22] cholecalciferol (vitamin D3) 25 mcg (1,000 unit) tablet 25 mcg PO DAILY health maintenence 02/27/22 [History Last Taken 09/05/22] amiodarone 200 mg tablet 100 mg PO DAILY heart 09/15/22 [History Last Taken 11/03/22 03:00] atorvastatin 40 mg tablet 40 mg PO QHS cholesterol 09/15/22 [History Last Taken Unknown] cetirizine 10 mg capsule 10 mg PO HS allergies 09/15/22 [History Last Taken Unknown] aspirin 81 mg tablet,delayed release (Adult Aspirin Regimen) 81 mg PO DAILY [facility] health 09/28/22 [History Last Taken Unknown] insulin glargine-yfgn 100 unit/mL (3 mL) subcutaneous pen 20 unit subcut QHS slow acting insulin 10/20/22 [History Last Taken Unknown] insulin lispro 100 unit/mL subcutaneous pen (Humalog KwikPen (U-100) Insulin) 7 unit subcut TIDAC blood glucose 10/20/22 [History Last Taken Unknown] levothyroxine 50 mcg tablet 50 mcg PO 0600 thyroid 10/20/22 [History Last Taken 11/03/22 03:00] lorazepam 0.5 mg tablet 0.5 mg PO BID PRN Anxiety 10/20/22 [History Last Taken Unknown] tamsulosin 0.4 mg capsule 0.4 mg PO DAILY@1730 urine flow 10/20/22 [History Last Taken Unknown] warfarin 2 mg tablet (Jantoven) 2 mg PO 1700 blood thinner 10/20/22 [History Last Taken 10/30/22] prednisone 10 mg tablet 10 mg PO DAILYCM inflamation #90 tabs 10/23/22 [Rx Last Taken Unknown] albuterol sulfate 90 mcg/actuation aerosol inhaler 2 puff inhalation Q4H PRN shortness of breath or wheezing #8.5 grams 01/11/23 [Rx Last Taken Unknown] amlodipine 10 mg tablet 10 mg PO DAILY #90 tabs 03/08/23 [Rx Last Taken Unknown] tizanidine 6 mg capsule 6 mg PO Q8H PRN muscle spasticity 07/05/23 [History Last Taken Unknown] carvedilol 12.5 mg tablet (Coreg) 12.5 mg PO BID #60 tabs 07/06/23 [Rx Last Taken Unknown] furosemide 40 mg tablet 40 mg PO BIDLX water pill 07/10/23 [History Last Taken Unknown] doxycycline monohydrate 100 mg capsule 100 mg PO BID 07/20/23 [History Last Taken Unknown] Allergy/AdvReac Type Severity Reaction Status Date / Time No Known Allergies Allergy Verified 07/20/23 17:22 Family History Mother Hypertension Heart disease Father No problems noted. Surgical History History of cardiac catheterization History of hernia repair History of hip replacement History of partial knee replacement Presence of coronary angioplasty implant and graft (~07/04/18) Status post carotid surgery Social History household members: spouse Smoking Status: Never smoker alcohol intake: never substance use type: does not use ROS ROS Narrative Admission Review of Systems: CONSTITUTIONAL: No weight loss, fever, chills, + weight gain, weakness or fatigue. HEENT: Eyes: No visual loss, blurred vision, double vision or yellow sclerae. Ears, Nose, Throat: No hearing loss, sneezing, congestion, runny nose or sore throat. SKIN: No rash or itching, lesions, wounds. CARDIOVASCULAR: + Orthopnea, weight gain, increased lower extremity swelling. No chest pain, chest pressure or chest discomfort, palpitations, syncopal events. RESPIRATORY: + shortness of breath. No marked cough or sputum, wheezing, hemoptysis. GASTROINTESTINAL: + Constipation, abdominal discomfort. No anorexia, nausea, vomiting or diarrhea, melena, BRBPR. GENITOURINARY: + Flank discomfort. No dysuria, frequency, urgency or retention. NEUROLOGICAL: No headache, dizziness, syncope, paralysis, ataxia, numbness or tingling in the extremities, focal weakness, change in bowel or bladder control, seizure. MUSCULOSKELETAL: + muscle, back pain, joint pain or stiffness. HEMATOLOGIC: + anemia, easy bleeding and bruising. LYMPHATICS: No enlarged nodes. No history of splenectomy. PSYCHIATRIC: + history of depression or anxiety. ENDOCRINOLOGIC: No reports of sweating, cold or heat intolerance. No polyuria or polydipsia. ALLERGIES: + history of asthma, rhinitis. Vital Signs Vital Signs Vital Signs: 07/20/23 17:22 07/20/23 17:56 07/20/23 18:13 Temperature 98.3 F Temperature Source Temporal Pulse Rate 80 Respiratory Rate 14 Respiratory Effort Short of Breath Labored Respiratory Pattern Tachypnea Blood Pressure 143/74 H Blood Pressure Mean 97 Pulse Ox 92 95 Oxygen Delivery Method Room Air Room Air Oxygen Flow Rate (L/min) 07/20/23 19:04 07/20/23 19:04 07/20/23 19:34 Temperature 98.7 F Temperature Source Oral Pulse Rate 89 79 Respiratory Rate 18 14 Respiratory Effort Respiratory Pattern Blood Pressure 161/81 H 159/85 H Blood Pressure Mean 107 109 Pulse Ox 88 97 99 Oxygen Delivery Method Room Air Nasal Cannula Nasal Cannula Oxygen Flow Rate (L/min) 2 2 Weight Weight: 231 lb 14.821 oz Body Mass Index (BMI) 37.4 Physical Exam Narrative Physical Examination: General: Awake, alert, oriented x 3 and cooperative, seated upright in the ED bed, uncomfortable appearing, notes abdominal cramping. Skin: Normal color, normal turgor, no icterus, no cyanosis except for bilateral lower extremity venous stasis skin changes, recent toe infection. HEENT: AT/NC, EOMI, PERRLA, MMM, no carotid bruits, + JVD noted although difficult evaluation given alcaraz present. Lungs: Diminished, greater bases, mildly increased respiratory rate but no distress, no marked rales, no rhonchi or wheezing noted. Heart: Regular rate and rhythm; no gallop, rub audible. Abdomen: Soft, obese, mild generalized discomfort but no rebound or guarding, no tympany but does appear mildly distended, no fluid wave, hyperactive BS, difficult to appreciate HSM given habitus and discomfort. Extremities: No cyanosis, no clubbing, significant pedal to lower abdominal 3+ pitting edema. Neurological: Patient awake, alert, oriented as noted, cognitive function intact; pupils equally reactive to light and accommodation, cranial nerves II-XII grossly normal, moving all 4 extremities, no focal deficits, strength severely globally decreased secondary to acute presentation. Psychiatric: Affect appears uncomfortable, fatigued, no acute evidence of depressive or anxiety feelings but does have underlying history. Results Lab / Micro Data 07/20/23 18:12 07/20/23 18:12 Labs: Laboratory Results - last 24 hr 07/20/23 18:12: WBC 8.9, RBC 4.94, Hgb 14.5, Hct 43.9, MCV 88.9, MCH 29.4, MCHC 33.0, RDW Std Deviation 49.6 H, RDW Coeff of Alley 15.2 H, Plt Count 190, MPV 9.8, Immature Gran % (Auto) 0.700, Neut % (Auto) 82.5 H, Lymph % (Auto) 11.0 L, Ada % (Auto) 5.6, Eos % (Auto) 0.1, Baso % (Auto) 0.1, Absolute Neuts (auto) 7.4, Absolute Lymphs (auto) 0.98, Nucleated RBC % 0, PT 24.4 H, INR 2.2, APTT 31.2, Sodium 135 L, Potassium 3.8, Chloride 97 L, Carbon Dioxide 31.0, Anion Gap 7, BUN 41 H, Creatinine 2.25 H, Estim Creat Clear Calc 23.63, Est GFR (MDRD) Af Amer 36 L, Est GFR (MDRD) Non-Af 30 L, BUN/Creatinine Ratio 18.2, Glucose 230 H, Lactic Acid 1.8, Calcium 9.5, Total Bilirubin 0.70, AST 19, ALT 31, Alkaline Phosphatase 137 H, Troponin I High Sens 13, B-Natriuretic Peptide 57.4, Total Protein 7.3, Albumin 3.3, Globulin 4.0, Albumin/Globulin Ratio 0.8 L 07/20/23 18:35: Urine Color Yellow, Urine Clarity Cloudy, Urine pH 5.0, Ur Specific [place] 1.015, Urine Protein 30 H, Urine Glucose (UA) 100 H, Urine Ketones Negative, Urine Occult Blood 250 H, Urine Nitrite Positive H, Urine Bilirubin Negative, Urine Urobilinogen Normal, Ur Leukocyte Esterase 500 H, Urine RBC 10-25 SEEN, Urine WBC >100 SEEN, Ur Squamous Epith Cells 5-10 SEEN, Amorphous Sediment 1+ URATE, Urine Bacteria 2+, Urine Mucus 0 SEEN Imagaing Radiology Impression Abdomen/Pelvis CT 07/20/23 19:10 IMPRESSION: Suspect constipation. Sigmoid diverticulosis without diverticulitis. Electronically Signed: Antonio Spencer MD at 19:49 EST Reading Location ID and State: [id number] / [employer] Tel , Service support , Chest X-Ray 07/20/23 19:15 IMPRESSION: No active disease. Electronically Signed: Antonio Spencer MD at 19:36 EST , Assessment & Plan Assessment/Plan (1) CHF exacerbation: PLAN: Plan The patient is an 82 y/o M w/ PMHx: Obesity, KIM on CPAP, PAF, HTN, HLD, GERD, CAD s/p PCI RCA, Carotid disease s/p R carotid stent per Dr. 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 Cruz on chronic daily prednisone 10 mg, BPH, Chronic Fe deficiency, Hypothyroidism, CKD stage III unclear subtype (baseline Cr Cr 1.5-2.3) who presents to the [facility] ED on 07/20/23 who presents to the [facility] ED on 07/20/23 with several day history of significantly worsening weight gain, orthopnea, lower extremity swelling as well as some sensation of swelling into his abdomen with increasing constipation and generalized abdominal cramping as well as some flank discomfort with difficulty ambulating especially secondary to exertional dyspnea associated prompting call to his cardiology office who recommended ED evaluation. #1. Acute Hypoxic secondary to Acute Decompensated HFrEF (increased peripheral edema, dyspnea, orthopnea, weight change 07/10/23 222 lb-->231 lb currently) complicated by #2: Patient administered IV lasix in the ED, will admit to PCU, maintain on cardiac telemetry, obtain cardiac enzyme series, obtain serial EKGs as needed, continue IV lasix diuresis, snug AMBER wraps BL LE, monitor I/Os, continue medical therapy, obtain TSH and magnesium level. Most recent ECHO noted 09/09/2022 EF 60%, negative right to left intra-atrial shunt, no thrombus tachycardia left atrial appendage, and no significant valvular abnormality thus given timeline will request repeat. #2. Acute Urinary Tract Infection: UA upon ED evaluation remarkable, pending UCx, monitor I/Os, continue IV Rocephin w/ transition as able pending sensitivities and speciation. Bld cx x 2 obtained in the ED. #3. Acute on Chronic constipation: Patient with significant abdominal cramping, notable constipation, likely contributing to his acute presentation with UTI, will initiate enema and will start with course of GoLytely with then transition to oral bowel regimen as needed. #4. Recent left great toe infection: Wound care consulted, continue patient home doxycycline regimen. #5. Carotid disease: Carotid US 09/12/2022 showed right internal carotid artery greater than 70% stenosis and likely greater than 80% stenosis, follow-up 11/03/22 R carotid stent per Dr. Be, continue aspirin, Coumadin with INR trending, statin therapy, hypertensive regimen as noted. #6. Diabetes mellitus type II: Will continue home insulin regimen, ADA diet, accu checks w/ ISS. #7. CAD: Status post angioplasty RCA, will continue Coumadin with INR trending aspirin, statin, Coreg, not on AMBER inhibitor/ARB likely secondary to underlying renal disease. #8. Chronic Kidney Disease Stage III, unclear subtype: Admission BUN/Cr 41/2.25, baseline renal function primarily appears to be 1.5-2.3, repeat BMP in AM. #9. Chronic iron deficiency: Admission hemoglobin 14.5, MCV 88.9, noted to have chronic iron deficiency on chronic therapy, will continue supplementation. Likely due to his chronic constipation. Intervention as noted above. #10. Chronic asthma with allergic rhinitis, peripheral eosinophilia and elevated IgE level : Will maintain on oxygen with wean as tolerated to room air, continue ATC budesonide therapy, PRN albuterol, HOB, IS parameters, continue home cetirizine regimen as well as chronic low-dose 10 mg daily steroid regimen and encourage continued outpatient follow-up with Dr. Cruz. #11. Obesity: Weight loss and lifestyle changes encouraged. Given diet discussion and CHF presentation will request nutrition consultation for education. #12. PAF: We will continue patient on Coumadin with INR trending as well as Coreg home regimen and amiodarone. #13. Hypertension: Continue home regimen including Coreg, amlodipine, IV Lasix as noted above, PRN hydralazine. #14. Hyperlipidemia: Continue home statin regimen. AM FLP. #15. Hypothyroidism: Continue home levothyroxine regimen, TSH pending. #16. GERD: We will continue patient home PPI. #17. BPH: We will continue patient on Flomax regimen. #18. KIM: CPAP nightly. #19. DVT prophylaxis: Will continue Coumadin with INR trending. #20. CODE status: Patient AVERY is his daughter Ratna and living will is currently in place. Discussed CODE status at length including difference between FULL code, DNR-CCA and DNR-CC status. Following discussions about the differences in these status, requested DNR-CCA, no intubation status. Advanced Care Planning Face to Face Time: 16 minutes. Charges/Coding Visit Charges Inpatient E&M: 52250 Init Hosp L3 Procedures Hospitalists Procedures: 57981 Advncd Care Plan 30 Min
--- NOTE | 2023-07-20 21:57 | ECHOCS_ITS ---
Reason For Study: CHF Procedure This was a 2D Doppler, Color Flow transthoracic echocardiogram. The study was technically difficult. Contrast injection was performed. Echo done with patient sitting upright due to SOB and Severe Swelling with Discomfort. Exam performed portable in patient room. Left Ventricle Normal LV size. The estimated ejection fraction is 55 %. No evidence for diastolic dysfunction. No regional wall motion abnormalities noted. Right Ventricle Normal RV size. Normal systolic function. Atria The left and right atria are normal. No doppler evidence for ASD. Mitral Valve There is no mitral valve stenosis. No mitral valve insufficiency. Tricuspid Valve There is no tricuspid stenosis. Trivial tricuspid valve insufficiency. Pulmonary artery systolic pressure is 25 mmHg. Aortic Valve Trisinus/trileaflet aortic valve. Aortic sclerosis, no stenosis. No aortic valve insufficiency. Pulmonic Valve There is no pulmonic valvular stenosis. No pulmonic valve insufficiency. Medication Diluted definity 2.5ml given slow IV push to enhance endocardial definition. MMode/2D Measurements & Calculations LVIDd: 4.1 cm IVSd: 0.77 cm Ao root diam: 2.7 cm LVIDs: 3.0 cm LVPWd: 0.94 cm LA dimension: 3.5 cm RVDd: 3.8 cm FS: 27.5 % LAV(MOD-bp): 54.1 ml LA A4 area: 19.3 cm2 RA A4 area: 14.4 cm2 LAV(MOD-bp) Indexed: 25.6 ml/m2 LAV(MOD-sp2): 47.9 ml LAV(MOD-sp4): 46.8 ml Doppler Measurements & Calculations MV E max dot: 88.4 cm/sec MV V2 max: 94.5 cm/sec Ao V2 max: 111.9 cm/sec MV max P.6 mmHg Ao max P.1 mmHg MV V2 mean: 50.9 cm/sec MV mean P.3 mmHg MV V2 VTI: 15.8 cm LV V1 max: 76.3 cm/sec PA V2 max: 99.5 cm/sec TR max dot: 218.4 cm/sec LV V1 max P.4 mmHg PA V2 mean: 66.5 cm/sec TR max P.1 mmHg ECHO/Echo Complete W/ Contrast Interpretation Summary The estimated ejection fraction is 55 %. No evidence for diastolic dysfunction. Ordering Physician: Susan Barrera Referring Physician: MD Aman Eric Performed By: Jan Mcneil, MERLINE
[2023-07-20 23:05] LABS: Troponin-I HS 15 pg/mL (3.0-78.0)
[2023-07-20] MEDS: Furosemide 40 MG/4 ML Vial IV (23:15)
[2023-07-20] MEDS: Acetaminophen 325 MG Tablet 650 MG PO (23:19)
[2023-07-20 23:24] LABS: Bedside Glucose 193 mg/dL (74-106)
[2023-07-20] MEDS: 0.9% Saline Lock 10 ML Syringe IV (23:29)
[2023-07-20] MEDS: Electrolyte Solution/Peg's 4000 ML 1000 ML PO (23:29)
[2023-07-20] MEDS: Doxycycline 100 MG CAPSULE PO (23:31)
[2023-07-20] MEDS: Atorvastatin Calcium 40 MG Tablet PO (23:32)
[2023-07-20] MEDS: Carvedilol 12.5 MG Tablet PO (23:32)
[2023-07-20] MEDS: Loratadine 10 MG Tablet PO (23:33)
[2023-07-20] MEDS: Insulin Lispro 100 UNIT/ML INSULN.PEN SC (23:37)
[2023-07-20] MEDS: Insulin Glargine-YFGN 100 UNIT/ML Pen 20 UNIT SC (23:38)
[2023-07-21] VITALS (9 sets, daily range): BP systolic 126–165; BP diastolic 63–95; PULSE 68–93; RESP 17–18; TEMP 36.4–37.1; O2SAT 95–100; BMI 39.2; BMI 38.9
--- NOTE | 2023-07-21 00:12 | CPS ---
CPAP set-up in room. Water added. Patient able to turn machine on and off by himself. No needs at this time.
[2023-07-21] MEDS: hydrALAZINE 20 MG/ML Vial 10 MG IV (01:17)
[2023-07-21] MEDS: 0.9% Saline Lock 10 ML Syringe IV ×3 (01:18→22:04)
[2023-07-21 01:43] LABS: Troponin-I HS 19 pg/mL (3.0-78.0)
[2023-07-21] MEDS: Levothyroxine 50 MCG Tablet PO (06:04)
[2023-07-21] MEDS: Insulin Lispro 100 UNIT/ML INSULN.PEN 7 UNIT SC ×3 (08:30→17:18)
[2023-07-21] MEDS: Carvedilol 12.5 MG Tablet PO ×2 (08:31→17:22)
[2023-07-21] MEDS: Ferrous Sulfate 325 MG Tablet PO ×2 (08:32→17:22)
[2023-07-21] MEDS: predniSONE 10 MG Tablet PO (08:32)
[2023-07-21] MEDS: Amiodarone 200 MG Tablet 100 MG PO (08:32)
[2023-07-21] MEDS: Doxycycline 100 MG CAPSULE PO ×2 (08:33→22:04)
[2023-07-21] MEDS: Furosemide 40 MG/4 ML Vial IV (08:33)
[2023-07-21] MEDS: Aspirin E.C. 81 MG Tablet PO (08:33)
[2023-07-21] MEDS: amLODIPine 10 MG Tablet PO (08:34)
[2023-07-21] MEDS: Cholecalciferol (VIT D3) 25 MCG TABLET (1,000 UNITS) PO (08:35)
[2023-07-21] MEDS: Acetaminophen 325 MG Tablet 650 MG PO ×2 (08:35→12:49)
[2023-07-21] MEDS: Pantoprazole Sodium 20 MG Tablet PO (08:35)
[2023-07-21 08:48] LABS: Absolute Lymphocyte Count 1.52 X10^3/uL (0.83-4.51); Absolute Neutrophil Count 10.2 X10^3/uL (2.0-7.7); Basophil# 0.06 X10^3/uL; Basophil% 0.5 % (0-1); Eosinophil# 0.07 X10^3/uL; Eosinophils% 0.5 % (0-5); Hematocrit 47.1 % (40-54); Lymphocyte # 1.52 X10^3/ul (0.83-4.51); Lymphocyte % 11.8 % (19-41); Mean Corp Hgb Conc 31.8 g/dL (32-36); Mean Corpuscular Hgb 28.8 pg (27.0-32.0); Mean Corpuscular Volume 90.6 fL (80-94); Mean Platelet Vol. 9.2 fl (6.2-12.0); Monocyte% 7.8 % (0-10); NRBC Flagged by Analyzer 0 % (0-5); Neutrophil # 10.16 X10^3/uL (2.7-7.7); Neutrophil % 78.9 % (47-70); Platelet Count 178 K/mm3 (150-450); RBC Distribution Width CV 15.4 % (11.6-14.6); RBC Distribution Width SD 50.4 fl (35.1-43.9); White Blood Count 12.9 K/mm3 (4.4-11.0)
[2023-07-21 09:31] LABS: ALB/GLOB Ratio 0.8 RATIO (0.9-2.4); AST(SGOT) 20 U/L (15-37); Alanine Aminotransfer ALT/SGPT 24 U/L (16-61); Alkaline Phosphatase 131 U/L (45-117); Anion Gap 6 (5-15); BUN 35 mg/dL (7-18); BUN/Creat Ratio 18.1 RATIO (10-20); Calcium,Total 8.9 mg/dL (8.5-10.1); Chloride 100 mmol/L (98-107); Cholesterol 160 mg/dL (200); Creatinine, Serum 1.93 mg/dL (0.70-1.30); EST Glomerular Filtration Rate 36 mL/min (>60); Est Glom Filt Rate - Afr Amer 43 mL/min (>60); Estimated Creatinine Clearance 25.56 ml/min; Globulin 3.8 g/dL (2.2-4.2); Glucose 112 mg/dL (74-106); High Density Lipoprotein 59 mg/dL; Potassium 3.4 mmol/L (3.5-5.1); Protein, Total 6.8 g/dL (6.4-8.2); Sodium Level 138 mmol/L (136-145); Thyroid Stim Hormone (TSH) 5.38 uIU/mL (0.358-3.74); Triglycerides 137 mg/dL; Very Low Density Lipoprotein 27 mg/dL (5-40)
[2023-07-21 10:02] LABS: International Normalized Ratio 2.2; Prothrombin Time (Protime)PT. 24.4 SECONDS (11.7-14.9)
[2023-07-21 10:51] LABS: Bedside Glucose 111 mg/dL (74-106)
[2023-07-21] MEDS: Insulin Lispro 100 UNIT/ML INSULN.PEN SC ×3 (12:33→22:07)
[2023-07-21 13:01] LABS: Bedside Glucose 155 mg/dL (74-106)
--- NOTE | 2023-07-21 14:13 | PCM.PN.HOSP ---
Reason for Visit Reason for Visit: Shortness of breath/weight gain/edema Subjective Subjective Mr. Hernandez is an 82-year-old male who presented to the emergency department at [facility] on 07/25/20152022 due to a several day history of weight gain, orthopnea, worsening lower extremity edema, and exertional dyspnea. 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 Vital signs on presentation showed a temperature of 98.3, heart rate 80, blood pressure is 143/74, respiratory was 14 and oxygen saturations were initially 92% on room air however his oxygen saturation decreased to 88% on room air and improved to 99% on 2 L nasal cannula. CBC was unremarkable. Coag studies were appropriately elevated as he is on Coumadin at baseline for paroxysmal atrial fibrillation. His chemistry panel showed mild hyponatremia with a he is atypical for him as well as stable elevation of his BUN and creatinine at 41 and 2.25 respectively. His glucose was markedly elevated at 230. His lactic acid was normal at 1.8. LFTs were unremarkable. BNP was not elevated. His chest x-ray was overall unremarkable. With his symptoms, despite his normal BNP, it was felt that he probably had some exacerbation of CHF and he was treated with Lasix and a repeat echocardiogram was performed. Echo today shows an EF of 55% and no evidence of diastolic dysfunction or regional wall motion abnormalities which is similar to his most recent echocardiogram. I was able to meet with the patient and the family at the bedside. They state that the swelling in his lower extremities has been much more problematic than previous over the last 2 months. They have noted that the swelling has progressively been moving up towards his abdomen in that timeframe. It has become more difficult for him to ambulate. His Lasix was increased as an outpatient which made no significant difference. Despite his Lasix he is still positive since admission and urine output has not been all that significant per discussion with family and nursing at the bedside. He is only on Lasix IV twice daily 40 mg so I will increase this dose as his renal function is stable despite the diuretics. We discussed that he does have a urinary tract infection. I did tell them that it is not clear that heart failure is the culprit as his echocardiogram is stable he does not have any significant signs of pulmonary hypertension, he is compliant with his CPAP for sleep apnea, it does not appear that he has any liver disease with cirrhosis bleeding the etiology and cause for his increased swelling and his albumin levels not that low. He has been on Coumadin and family reports that he has overall been fairly therapeutic. We will get lower extremity Dopplers per our discussion but these will be done till Sunday. Also going to check a 24-hour urine to make sure that he does not have nephrotic syndrome with his renal failure due to this however his spot urine does not show significant mount of protein. The etiology is unclear at this time and I did discuss that with them. In addition to that they state that he has had some right-sided lower chest/abdominal wall pain that seems to be more significant with nerve pain and hypersensitivity. There is no rash located at that area and the denied him ever having any pustules or signs of zoster infection. It has been ongoing for a couple weeks now. He is tender to light touch in that area and CAT scan did not show any obvious abnormality including fracture or internal pathology. I indicated that we would start him on Gabapentin to see if that helps with his pain and continue to monitor him clinically especially on skin exam to sure that no pustules occur. Objective Data Objective Data Vital Signs: Vital Signs Temp Pulse Resp BP Pulse Ox O2 Del Method O2 Flow Rate 97.6 F L 93 18 146/95 H 96 Room Air 2 07/21/23 07:51 07/21/23 07:51 07/21/23 07:51 07/21/23 07:51 07/21/23 07:51 07/21/23 07:51 07/21/23 12:16 Oxygen Flow Rate (L/min) 2 Oxygen Delivery Method Room Air Weight: 103.6 kg Body Mass Index (BMI) 39.2 Intake & Output: Intake and Output for Last 24 Hours 07/19/23 07/20/23 07/21/23 23:59 23:59 23:59 Intake Total 1170 / 1170 80 / 80 Output Total 450 / 450 200 / 200 Balance 720 / 720 -120 / -120 Lab / Micro Data 07/21/23 08:17 07/21/23 08:17 Labs: Laboratory Results - last 24 hr 07/20/23 18:12: WBC 8.9, RBC 4.94, Hgb 14.5, Hct 43.9, MCV 88.9, MCH 29.4, MCHC 33.0, RDW Std Deviation 49.6 H, RDW Coeff of Alley 15.2 H, Plt Count 190, MPV 9.8, Immature Gran % (Auto) 0.700, Neut % (Auto) 82.5 H, Lymph % (Auto) 11.0 L, [place] % (Auto) 5.6, Eos % (Auto) 0.1, Baso % (Auto) 0.1, Absolute Neuts (auto) 7.4, Absolute Lymphs (auto) 0.98, Nucleated RBC % 0, PT 24.4 H, INR 2.2, APTT 31.2, Sodium 135 L, Potassium 3.8, Chloride 97 L, Carbon Dioxide 31.0, Anion Gap 7, BUN 41 H, Creatinine 2.25 H, Estim Creat Clear Calc 23.63, Est GFR (MDRD) Af Amer 36 L, Est GFR (MDRD) Non-Af 30 L, BUN/Creatinine Ratio 18.2, Glucose 230 H, Lactic Acid 1.8, Calcium 9.5, Magnesium 2.0, Total Bilirubin 0.70, AST 19, ALT 31, Alkaline Phosphatase 137 H, Troponin I High Sens 13, B-Natriuretic Peptide 57.4, Total Protein 7.3, Albumin 3.3, Globulin 4.0, Albumin/Globulin Ratio 0.8 L 07/20/23 18:35: Urine Color Yellow, Urine Clarity Cloudy, Urine pH 5.0, Ur Specific [place] 1.015, Urine Protein 30 H, Urine Glucose (UA) 100 H, Urine Ketones Negative, Urine Occult Blood 250 H, Urine Nitrite Positive H, Urine Bilirubin Negative, Urine Urobilinogen Normal, Ur Leukocyte Esterase 500 H, Urine RBC 10-25 SEEN, Urine WBC >100 SEEN, Ur Squamous Epith Cells 5-10 SEEN, Amorphous Sediment 1+ URATE, Urine Bacteria 2+, Urine Mucus 0 SEEN 07/20/23 22:01: POC Glucose 193 H 07/20/23 22:30: Troponin I High Sens 15 07/21/23 01:15: Troponin I High Sens 19 07/21/23 08:17: WBC 12.9 H, RBC 5.20, Hgb 15.0, Hct 47.1, MCV 90.6, MCH 28.8, MCHC 31.8 L, RDW Std Deviation 50.4 H, RDW Coeff of Alley 15.4 H, Plt Count 178, MPV 9.2, Immature Gran % (Auto) 0.500, Neut % (Auto) 78.9 H, Lymph % (Auto) 11.8 L, [place] % (Auto) 7.8, Eos % (Auto) 0.5, Baso % (Auto) 0.5, Absolute Neuts (auto) 10.2 H, Absolute Lymphs (auto) 1.52, Nucleated RBC % 0, PT 24.4 H, INR 2.2, Sodium 138, Potassium 3.4 L, Chloride 100, Carbon Dioxide 32.0, Anion Gap 6, BUN 35 H, Creatinine 1.93 H, Estim Creat Clear Calc 25.56, Est GFR (MDRD) Af Amer 43 L, Est GFR (MDRD) Non-Af 36 L, BUN/Creatinine Ratio 18.1, Glucose 112 H, Calcium 8.9, Total Bilirubin 0.80, AST 20, ALT 24, Alkaline Phosphatase 131 H, Total Protein 6.8, Albumin 3.0 L, Globulin 3.8, Albumin/Globulin Ratio 0.8 L, Triglycerides 137, Cholesterol 160, LDL Cholesterol 74, VLDL Cholesterol 27, HDL Cholesterol 59, TSH 5.38 H, POC Glucose 111 H 07/21/23 12:30: POC Glucose 155 H Micro: Microbiology 07/20/23 18:35 Urine, Clean Catch Urine Culture - Preliminary GNR lactose teacher home therapy Radiography Diagnostic Testing: Radiology Impression Abdomen/Pelvis CT 07/20/23 19:10 IMPRESSION: Suspect constipation. Sigmoid diverticulosis without diverticulitis. Electronically Signed: Antonio Spencer MD at 19:49 EST , Chest X-Ray 07/20/23 19:15 IMPRESSION: No active disease. Electronically Signed: Antonio Spencer MD at 19:36 EST Reading Location ID and State: [id number] / [employer] , Service support , Echocardiogram 07/20/23 21:57 Interpretation Summary The estimated ejection fraction is 55 %. No evidence for diastolic dysfunction. Ordering Physician: Susan Barrera Referring Physician: MD Aman Eric Performed By: Jan Mcneil, MERLINE Physical Exam Const alert, oriented x3, no apparent distress and well nourished; Negative for average body habitus or healthy appearing Constitutional Narrative: Morbidly obese, white, Cristian male, sitting up in bed, mobility appears to be problematic, does not appear in any distress at this time, nontoxic, significant anasarca noted from distal lower extremities to the mid abdomen and more significant in dependent areas such as his buttock and back. HEENT head/scalp atraumatic and moist oral mucous membranes HEENT Narrative: Mallampati 3-4, no thrush Head and Scalp: normocephalic Eyes PERRL and EOMs intact bilaterally Neck no lymphadenopathy and supple Neck Narrative: Trachea midline, no thyroid enlargement, neck is short and thick, patient has pronounced bilateral Resp normal respiratory effort, no retractions, no use of accessory muscles and clear to auscultation bilaterally Resp Narrative: Diffusely diminished but clear Cardio regular rate, regular rhythm, S1 normal heart sound, S2 normal heart sound, no murmurs, no rub, no gallops and no clicks GI normal to inspection, nondistended, normoactive bowel sounds, soft to palpation and non-tender GI Narrative: Skin anasarca noted at the lateral abdominal wall and posterior abdomen/back area, superficially tender with light palpation to the right anterior and lateral abdominal wall distally with no significant lesions noted Extremity Extremity Narrative: Bilateral 3+ pitting edema that extends from his feet up into his thighs and into his anterior abdominal wall distally and lower back buttock region, no cyanosis or clubbing Skin Skin Narrative: , Patient does appear to have some spider telangiectasias on his upper shoulders and chest wall, scattered ecchymosis, right abdomen with some erythema and ecchymosis but no lesions noted, area is hypersensitive, skin is pale Neuro oriented x3, CN's II-XII intact bilaterally, moves all extremities and no focal motor deficits Neuro Narrative: 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 Speech: speech normal Psych affect normal Psych Narrative: Eye contact is good, patient interacts appropriately Assessment & Plan Assessment/Plan (1) Anasarca: (2) Hypoxia: (3) Urinary tract infection: PLAN: Plan Anasarca -Etiology is unclear -Progressively worsening over the last several months -Not convinced likely related to heart failure, nephrotic syndrome, no signs of liver disease -Check bilateral lower extremity Dopplers however this is doubtful the etiology as he is chronically anticoagulated with Coumadin however it is unclear how therapeutic his INR's have been over the last couple months -Check 24-hour urine for protein and cortisol level -Check dexamethasone suppression test to rule out hypercortisolism as the etiology as 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 -Will continue Lasix but increase to 80 twice daily with renal dysfunction no significant urine output with dose given emergency department if no significant change tomorrow we will discontinue IV dosing and restart home dosing -Echocardiogram shows an EF of 55% with right ventricular systolic pressures of 25 mmHg and no evidence of diastolic dysfunction or valvular dysfunction -BNP was within normal limits -TSH is overtly unremarkable -Patient does not appear to be malnourished as albumin is relatively normal Acute hypoxia -Patient had mild hypoxia in the emergency department on admission -Sats decreased to 88% on room air from 90-1 presentation -Positioning is unclear at this time -Patient's current oxygenation is 100% on 2 L -Nocturnal oxygen as patient utilizes with CPAP at home -Continue to monitor Acute urinary tract infection -Cultures growing gram-negative rods -Continue ceftriaxone and await identification and sensitivities to narrow Hypokalemia -P.o. potassium replacement with 60 mill equivalents of potassium -Repeat in a.m. -Check a.m. magnesium level neck Acute on chronic constipation -Patient with large bowel movement -Good results with GoLytely -Will start MiraLAX daily and as needed senna -Consider discontinuation of iron supplementation if hemoglobin remained stable Right-sided trunk pain -No rash consistent with shingles however symptoms are more shingles-like with hypersensitivity -Start gabapentin 100 mg 3 times daily and monitor Left great toe infection -Continue home doxycycline DM-2 -Last hemoglobin A1c was from September and was elevated 8.3 -Blood sugars this morning look good -Continue home regimen of basal insulin 20 units at at bedtime and 7 units 3 times daily -SSI -Cardiac/carb controlled diet Carotid stenosis -Continue aspirin -Continue Coumadin -Continue outpatient follow-up with Dr. Be -Status post stent 11/03/2022 CAD/HTN/HPL -History of RCA angioplasty -Continue aspirin -Continue statin -Continue Coreg History of iron deficiency anemia -Hemoglobin is normalized and stable -Continue outpatient supplementation but if remains stable may discontinue as this could be exacerbating his constipation CKD stage IIIb -Baseline serum creatinine appears to fluctuate between 1.5 and 2.2 over the last year -Currently 1.9 -Continue diuresis -Avoid nephrotoxins as able -Repeat BMP in a.m. PAF -Continue Coumadin as INR is therapeutic -Continue home Coreg -Continue home amiodarone Hypothyroidism -Continue home Synthroid -TSH was 5.38 -Check a.m. free T4 however I suspect this is more related to euthyroid sick syndrome KIM -Continue CPAP with O2 bleed GERD -Continue home PPI BPH with obstruction -Continue home Flomax -Márquez placement DVT prophylaxis -Continue Coumadin with therapeutic and iron CODE STATUS -DNR CCA with no intubation as verified on admission Charges/Coding Visit Charges Inpatient E&M: 51932 Subs Hosp L3
[2023-07-21] MEDS: tiZANidine HCl 2 MG Tablet 6 MG PO (14:36)
--- NOTE | 2023-07-21 15:36 | VDLE_ITS ---
Reason For Study: Bilateral leg swelling RIGHT LEFT GSV is normal. GSV is normal. CFV is compressible, spontaneous, competent CFV is compressible, spontaneous, competent, and demonstrates pulsatile venous flow. and demonstrates pulsatile venous flow. FV is compressible, spontaneous, phasic, FV is compressible, spontaneous, phasic, competent and demonstrates normal competent and demonstrates normal augmentation. augmentation. POP V is compressible, spontaneous, phasic, POP V is compressible, spontaneous, phasic, competent and demonstrates normal competent and demonstrates normal augmentation. augmentation. T/P Trunk is compressible. T/P Trunk is compressible. PTV is compressible. PTV is compressible. RT PerV is compressible. LT PerV is compressible. Procedure This is a venous duplex using B-mode, color flow and spectral Doppler. Exam performed portable in patient room. A preliminary report was called and/or faxed to Teres[facility] PARTIDA. VL/Venous Duplex US - Josr Extrem Interpretation Summary Deep veins of the bilateral lower extremities are patent and compressible segme ntally. There is no evidence of bilateral lower extremity deep vein thrombosis. The bilateral great saphenous veins appear patent and compressible segmentally. Ordering Physician: Martha Plasencia Referring Physician: MD Aman Eric Performed By: Wen Cam RVT
[2023-07-21] MEDS: Potassium Chloride Oral Tablet 20 MEQ 60 MEQ PO (16:07)
[2023-07-21] MEDS: Gabapentin 100 MG Capsule PO (16:07)
[2023-07-21] MEDS: Jantoven 2 MG Tablet PO (17:22)
[2023-07-21] MEDS: Tamsulosin HCl 0.4 MG Capsule PO (17:24)
[2023-07-21 17:49] LABS: Bedside Glucose 286 mg/dL (74-106)
[2023-07-21] MEDS: Furosemide 100 MG/10 ML Vial 80 MG IV (17:55)
--- NOTE | 2023-07-21 17:55 | CASEMGMT ---
HELGA POWELL Discharge Planning Assessment: Face to Face with patient for initial transition planning/care coordination assessment. HELGA POWELL introduced self and role at [facility], pt voices understanding and is agreeable to participating in assessment with , son and DIL at bedside. Care providers, pharmacy, and demographics verified. Admitting dx: CHF, UTI, constipation PCP: [facility] Specialists: Luis Angel (neph), Haile (vascular), Anthony/Darius (pulm), Ross (uro), Ruma (cardio) Preferred Pharmacy[facility] Insurance: [employer] Prescription Benefit: pt states he does not think he has coverage, pt's son states pt does have coverage thru the [employer] LNOK: Martha Living Arrangements: pt lives with his and adult son in a single story home without steps to enter. Pt states he is independent with ADLs with some assistance from his . Transportation: pt has family/friends that drive and denies any concerns with transportation DME: shower chair, grab bars, hand held shower, comfort height toilet, cane, walker, rollator SNF: denies previous HHC: has had [facility] previously Outpt tx: Pt states he is currently attending outpt tx at [facility] for back pain and has two more sessions remaining. Pt's goal/plan: pt states she plans to return home with the support of his family and to continue with outpt tx at [facility]. Pt denies any additional DC needs at this time. Will continue to monitor and assist with DC needs as identified. Patricia Hutchison RN CM
[2023-07-21] MEDS: Ceftriaxone 1 GM/50 ML BAG IV (22:04)
[2023-07-21] MEDS: Atorvastatin Calcium 40 MG Tablet PO (22:04)
[2023-07-21] MEDS: Insulin Glargine-YFGN 100 UNIT/ML Pen 20 UNIT SC (22:08)
[2023-07-21 23:10] LABS: Bedside Glucose 177 mg/dL (74-106)
[2023-07-22 03:26] VITALS: BMI 38.9
[2023-07-22 04:04] VITALS: BMI 39.2
[2023-07-22 04:15] VITALS: BP 132/67; PULSE 70; RESP 18; TEMP 36.6; O2SAT 95
[2023-07-22] MEDS: Levothyroxine 50 MCG Tablet PO (04:22)
[2023-07-22 04:55] LABS: Absolute Lymphocyte Count 1.56 X10^3/uL (0.83-4.51); Absolute Neutrophil Count 7.4 X10^3/uL (2.0-7.7); Basophil# 0.03 X10^3/uL; Basophil% 0.3 % (0-1); Eosinophil# 0.06 X10^3/uL; Eosinophils% 0.6 % (0-5); Hematocrit 40.4 % (40-54); Hemoglobin 12.9 g/dL (13.0-16.5); Lymphocyte # 1.56 X10^3/ul (0.83-4.51); Mean Corp Hgb Conc 31.9 g/dL (32-36); Mean Corpuscular Hgb 29.2 pg (27.0-32.0); Mean Corpuscular Volume 91.4 fL (80-94); Mean Platelet Vol. 9.5 fl (6.2-12.0); Monocyte# 0.73 X10^3/uL; Monocyte% 7.5 % (0-10); NRBC Flagged by Analyzer 0 % (0-5); Neutrophil # 7.36 X10^3/uL (2.7-7.7); Neutrophil % 75.2 % (47-70); Platelet Count 144 K/mm3 (150-450); RBC Distribution Width CV 15.4 % (11.6-14.6); RBC Distribution Width SD 51.7 fl (35.1-43.9); Red Blood Count 4.42 M/mm3 (4.6-6.2); White Blood Count 9.8 K/mm3 (4.4-11.0)
[2023-07-22 05:27] LABS: International Normalized Ratio 2.1; Prothrombin Time (Protime)PT. 24.2 SECONDS (11.7-14.9)
[2023-07-22 05:28] LABS: ALB/GLOB Ratio 0.8 RATIO (0.9-2.4); AST(SGOT) 15 U/L (15-37); Alanine Aminotransfer ALT/SGPT 22 U/L (16-61); Albumin, Serum 2.7 g/dL (3.2-5.0); Alkaline Phosphatase 106 U/L (45-117); Anion Gap 5 (5-15); BUN 42 mg/dL (7-18); BUN/Creat Ratio 21.9 RATIO (10-20); Calcium,Total 8.6 mg/dL (8.5-10.1); Chloride 105 mmol/L (98-107); Creatinine, Serum 1.92 mg/dL (0.70-1.30); EST Glomerular Filtration Rate 36 mL/min (>60); Est Glom Filt Rate - Afr Amer 44 mL/min (>60); Estimated Creatinine Clearance 25.69 ml/min; Globulin 3.3 g/dL (2.2-4.2); Glucose 150 mg/dL (74-106); Potassium 3.8 mmol/L (3.5-5.1); Sodium Level 142 mmol/L (136-145); T4 Free Direct 1.22 ng/dL (0.76-1.46)
[2023-07-22] MEDS: Acetaminophen 325 MG Tablet 650 MG PO ×2 (05:35→22:34)
[2023-07-22 07:35] VITALS: O2SAT 94
--- NOTE | 2023-07-22 07:35 | CPS ---
Pt does not take Budesinide @home and declined it here. He uses Albuterol inhaler prn @home. He will call if he feels he needs it.
[2023-07-22 08:22] VITALS: BP 144/65; PULSE 74; RESP 18; TEMP 37; O2SAT 94
[2023-07-22] MEDS: Insulin Lispro 100 UNIT/ML INSULN.PEN 7 UNIT SC ×3 (08:28→16:01)
[2023-07-22] MEDS: Amiodarone 200 MG Tablet 100 MG PO (08:29)
[2023-07-22] MEDS: Carvedilol 12.5 MG Tablet PO ×2 (08:29→16:02)
[2023-07-22] MEDS: Ferrous Sulfate 325 MG Tablet PO ×2 (08:29→16:03)
[2023-07-22] MEDS: predniSONE 10 MG Tablet PO (08:29)
[2023-07-22] MEDS: Doxycycline 100 MG CAPSULE PO ×2 (08:29→21:20)
[2023-07-22] MEDS: Aspirin E.C. 81 MG Tablet PO (08:29)
[2023-07-22] MEDS: Furosemide 100 MG/10 ML Vial 80 MG IV ×2 (08:30→17:00)
[2023-07-22] MEDS: Pantoprazole Sodium 20 MG Tablet PO (08:30)
[2023-07-22] MEDS: Cholecalciferol (VIT D3) 25 MCG TABLET (1,000 UNITS) PO (08:30)
[2023-07-22] MEDS: 0.9% Saline Lock 10 ML Syringe IV ×3 (08:30→21:19)
[2023-07-22] MEDS: amLODIPine 10 MG Tablet PO (08:30)
[2023-07-22] MEDS: Polyethylene Glycol 3350 17 GM PACKET PO (08:39)
[2023-07-22] MEDS: Gabapentin 100 MG Capsule PO ×3 (08:39→17:00)
[2023-07-22 09:32] LABS: Bedside Glucose 118 mg/dL (74-106)
[2023-07-22] MEDS: Insulin Lispro 100 UNIT/ML INSULN.PEN SC ×3 (10:40→21:23)
[2023-07-22 11:24] LABS: Bedside Glucose 208 mg/dL (74-106)
--- NOTE | 2023-07-22 12:32 | PN.HOSP_ITS ---
Reason for Visit Reason for Visit: Shortness of breath/weight gain/edema Subjective Subjective Patient states his urine output was improved with increased dose of Lasix. We did discuss that his renal function is stable so we will continue with that for now. Test ordered yesterday are still pending and Dopplers will be done tomorrow. Patient rover tender on the right side but gabapentin did seem to help some. Objective Data Objective Data Vital Signs: Vital Signs Temp Pulse Resp BP Pulse Ox O2 Del Method O2 Flow Rate 98.6 F 74 18 144/65 H 94 Room Air 2 07/22/23 08:22 07/22/23 08:22 07/22/23 08:22 07/22/23 08:22 07/22/23 08:22 07/22/23 08:22 07/21/23 14:00 Oxygen Flow Rate (L/min) 2 Oxygen Delivery Method Room Air Weight: 104.3 kg Body Mass Index (BMI) 39.2 Intake & Output: Intake and Output for Last 24 Hours 07/20/23 07/21/23 07/22/23 23:59 23:59 23:59 Intake Total 1170 / 1170 1070 / 1070 230 / 230 Output Total 450 / 450 1000 / 1000 750 / 750 Balance 720 / 720 70 / 70 -520 / -520 Lab / Micro Data 07/22/23 04:25 07/22/23 04:25 Labs: Laboratory Results - last 24 hr 07/21/23 12:30: POC Glucose 155 H 07/21/23 17:16: POC Glucose 286 H 07/21/23 21:56: POC Glucose 177 H 07/22/23 04:25: WBC 9.8, RBC 4.42 L, Hgb 12.9 L, Hct 40.4, MCV 91.4, MCH 29.2, MCHC 31.9 L, RDW Std Deviation 51.7 H, RDW Coeff of Alley 15.4 H, Plt Count 144 L, MPV 9.5, Immature Gran % (Auto) 0.400, Neut % (Auto) 75.2 H, Lymph % (Auto) 16.0 L, [place] % (Auto) 7.5, Eos % (Auto) 0.6, Baso % (Auto) 0.3, Absolute Neuts (auto) 7.4, Absolute Lymphs (auto) 1.56, Nucleated RBC % 0, PT 24.2 H, INR 2.1, Sodium 142, Potassium 3.8, Chloride 105, Carbon Dioxide 32.0, Anion Gap 5, BUN 42 H, Creatinine 1.92 H, Estim Creat Clear Calc 25.69, Est GFR (MDRD) Af Amer 44 L, Est GFR (MDRD) Non-Af 36 L, BUN/Creatinine Ratio 21.9 H, Glucose 150 H, Calcium 8.6, Phosphorus 3.0, Magnesium 2.0, Total Bilirubin 0.60, AST 15, ALT 22, Alkaline Phosphatase 106, Total Protein 6.0 L, Albumin 2.7 L, Globulin 3.3, Albumin/Globulin Ratio 0.8 L, Free T4 1.22 07/22/23 08:09: POC Glucose 118 H 07/22/23 10:37: POC Glucose 208 H Micro: Microbiology 07/20/23 18:35 Urine, Clean Catch Urine Culture - Preliminary ESBL Klebsiella pneumoniae pne Physical Exam Narrative Const alert, oriented x3, no apparent distress and well nourished; Negative for average body habitus or healthy appearing Constitutional Narrative: Morbidly obese, white, Anglican male, sitting up in bed, mobility appears to be problematic, does not appear in any distress at this time, nontoxic, significant anasarca noted from distal lower extremities to the mid abdomen and more significant in dependent areas such as his buttock and back. HEENT head/scalp atraumatic and moist oral mucous membranes Eyes PERRL and EOMs intact bilaterally Neck no lymphadenopathy and supple Neck Narrative: Trachea midline, no thyroid enlargement, neck is short and thick, patient has pronounced bilateral Resp normal respiratory effort, no retractions, no use of accessory muscles and clear to auscultation bilaterally Resp Narrative: Diffusely diminished but clear Cardio regular rate, regular rhythm, S1 normal heart sound, S2 normal heart sound, no murmurs, no rub, no gallops and no clicks GI normal to inspection, nondistended, normoactive bowel sounds, soft to palpation and non-tender GI Narrative: Skin anasarca noted at the lateral abdominal wall and posterior abdomen/back area, superficially tender with light palpation to the right anterior and lateral abdominal wall distally with no significant lesions noted Extremity Extremity Narrative: Bilateral 3+ pitting edema that extends from his feet up into his thighs and into his anterior abdominal wall distally and lower back buttock region, no cyanosis or clubbing Skin Skin Narrative: , Patient does appear to have some spider telangiectasias on his upper shoulders and chest wall, scattered ecchymosis, right abdomen with some erythema and ecchymosis but no lesions noted, area is hypersensitive, skin is pale Neuro oriented x3, CN's II-XII intact bilaterally, moves all extremities and no focal motor deficits Neuro Narrative: 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 Speech: speech normal Psych affect normal Psych Narrative: Eye contact is good, patient interacts appropriately Assessment & Plan Assessment/Plan (1) Anasarca: (2) Hypoxia: (3) Urinary tract infection: PLAN: Plan Anasarca -Etiology is unclear -Progressively worsening over the last several months -Not convinced likely related to heart failure, nephrotic syndrome, no signs of liver disease -Check bilateral lower extremity Dopplers however this is doubtful the etiology as he is chronically anticoagulated with Coumadin however it is unclear how therapeutic his INR's have been over the last couple months -Check 24-hour urine for protein and cortisol level -Check dexamethasone suppression test to rule out hypercortisolism as the etiology as he has have some physical findings consistent with [place]'s disease -Will continue Lasix but increase to 80 twice daily with renal dysfunction no significant urine output with dose given emergency department if no significant change tomorrow we will discontinue IV dosing and restart home dosing -Echocardiogram shows an EF of 55% with right ventricular systolic pressures of 25 mmHg and no evidence of diastolic dysfunction or valvular dysfunction -BNP was within normal limits -TSH is overtly unremarkable -Patient does not appear to be malnourished as albumin is relatively normal Acute hypoxia -Patient had mild hypoxia in the emergency department on admission -Sats decreased to 88% on room air from 90-1 presentation -Positioning is unclear at this time -Patient's current oxygenation is 100% on 2 L -Nocturnal oxygen as patient utilizes with CPAP at home -Continue to monitor Acute urinary tract infection -Cultures growing gram-negative rods -Continue ceftriaxone and await identification and sensitivities to narrow Hypokalemia -P.o. potassium replacement with 60 mill equivalents of potassium -Repeat in a.m. -Check a.m. magnesium level neck Acute on chronic constipation -Patient with large bowel movement -Good results with GoLytely -Will start MiraLAX daily and as needed senna -Consider discontinuation of iron supplementation if hemoglobin remained stable Right-sided trunk pain -No rash consistent with shingles however symptoms are more shingles-like with hypersensitivity -Start gabapentin 100 mg 3 times daily and monitor Left great toe infection -Continue home doxycycline DM-2 -Last hemoglobin A1c was from September and was elevated 8.3 -Blood sugars this morning look good -Continue home regimen of basal insulin 20 units at at bedtime and 7 units 3 times daily -SSI -Cardiac/carb controlled diet Carotid stenosis -Continue aspirin -Continue Coumadin -Continue outpatient follow-up with Dr. Be -Status post stent 11/03/2022 CAD/HTN/HPL -History of RCA angioplasty -Continue aspirin -Continue statin -Continue Coreg History of iron deficiency anemia -Hemoglobin is normalized and stable -Continue outpatient supplementation but if remains stable may discontinue as this could be exacerbating his constipation CKD stage IIIb -Baseline serum creatinine appears to fluctuate between 1.5 and 2.2 over the last year -Currently 1.9 -Continue diuresis -Avoid nephrotoxins as able -Repeat BMP in a.m. PAF -Continue Coumadin as INR is therapeutic -Continue home Coreg -Continue home amiodarone Hypothyroidism -Continue home Synthroid -TSH was 5.38 -Check a.m. free T4 however I suspect this is more related to euthyroid sick syndrome KIM -Continue CPAP with O2 bleed GERD -Continue home PPI BPH with obstruction -Continue home Flomax -Márquez placement DVT prophylaxis -Continue Coumadin with therapeutic and iron CODE STATUS -DNR CCA with no intubation as verified on admission Charges/Coding Visit Charges Inpatient E&M: 99706 Subs Hosp L2
--- NOTE | 2023-07-22 12:32 | PCM.PN.HOSP ---
Reason for Visit Reason for Visit: Shortness of breath/weight gain/edema Subjective Subjective Patient states his urine output was improved with increased dose of Lasix. We did discuss that his renal function is stable so we will continue with that for now. Test ordered yesterday are still pending and Dopplers will be done tomorrow. Patient coke still cleaner on the right side but gabapentin did seem to help some. Objective Data Objective Data Vital Signs: Vital Signs Temp Pulse Resp BP Pulse Ox O2 Del Method O2 Flow Rate 98.6 F 74 18 144/65 H 94 Room Air 2 07/22/23 08:22 07/22/23 08:22 07/22/23 08:22 07/22/23 08:22 07/22/23 08:22 07/22/23 08:22 07/21/23 14:00 Oxygen Flow Rate (L/min) 2 Oxygen Delivery Method Room Air Weight: 104.3 kg Body Mass Index (BMI) 39.2 Intake & Output: Intake and Output for Last 24 Hours 07/20/23 07/21/23 07/22/23 23:59 23:59 23:59 Intake Total 1170 / 1170 1070 / 1070 230 / 230 Output Total 450 / 450 1000 / 1000 750 / 750 Balance 720 / 720 70 / 70 -520 / -520 Lab / Micro Data 07/22/23 04:25 07/22/23 04:25 Labs: Laboratory Results - last 24 hr 07/21/23 12:30: POC Glucose 155 H 07/21/23 17:16: POC Glucose 286 H 07/21/23 21:56: POC Glucose 177 H 07/22/23 04:25: WBC 9.8, RBC 4.42 L, Hgb 12.9 L, Hct 40.4, MCV 91.4, MCH 29.2, MCHC 31.9 L, RDW Std Deviation 51.7 H, RDW Coeff of Alley 15.4 H, Plt Count 144 L, MPV 9.5, Immature Gran % (Auto) 0.400, Neut % (Auto) 75.2 H, Lymph % (Auto) 16.0 L, [place] % (Auto) 7.5, Eos % (Auto) 0.6, Baso % (Auto) 0.3, Absolute Neuts (auto) 7.4, Absolute Lymphs (auto) 1.56, Nucleated RBC % 0, PT 24.2 H, INR 2.1, Sodium 142, Potassium 3.8, Chloride 105, Carbon Dioxide 32.0, Anion Gap 5, BUN 42 H, Creatinine 1.92 H, Estim Creat Clear Calc 25.69, Est GFR (MDRD) Af Amer 44 L, Est GFR (MDRD) Non-Af 36 L, BUN/Creatinine Ratio 21.9 H, Glucose 150 H, Calcium 8.6, Phosphorus 3.0, Magnesium 2.0, Total Bilirubin 0.60, AST 15, ALT 22, Alkaline Phosphatase 106, Total Protein 6.0 L, Albumin 2.7 L, Globulin 3.3, Albumin/Globulin Ratio 0.8 L, Free T4 1.22 07/22/23 08:09: POC Glucose 118 H 07/22/23 10:37: POC Glucose 208 H Micro: Microbiology 07/20/23 18:35 Urine, Clean Catch Urine Culture - Preliminary ESBL Klebsiella pneumoniae pne Physical Exam Const alert, oriented x3, no apparent distress and well nourished; Negative for average body habitus or healthy appearing Constitutional Narrative: Morbidly obese, white, Cristian male, sitting up in bed eating lunch and visiting with family does not appear in any distress at this time, nontoxic, still with significant anasarca noted from distal lower extremities to mid abdomen and back HEENT head/scalp atraumatic and moist oral mucous membranes HEENT Narrative: Mallampati is 3-4, dentition is poor, no thrush Head and Scalp: normocephalic Resp normal respiratory effort, no retractions, no use of accessory muscles and clear to auscultation bilaterally Resp Narrative: Diffusely diminished but clear, distant due to body habitus, on room air Auscultation: Negative for rales, rhonchi or wheezes Cardio regular rate, regular rhythm, S1 normal heart sound, S2 normal heart sound, no murmurs, no rub, no gallops and no clicks GI normal to inspection, nondistended, normoactive bowel sounds, soft to palpation and non-tender GI Narrative: Skin anasarca noted at the lateral abdominal wall and posterior abdomen/back area, superficially tender with light palpation to the right anterior and lateral abdominal wall distally with no significant lesions noted Extremity Extremity Narrative: Bilateral 3+ pitting edema that extends from his feet up into his thighs and into his anterior abdominal wall distally and lower back buttock region, no cyanosis or clubbing Neuro oriented x3, moves all extremities and no focal motor deficits Neuro Narrative: 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, patient appears to have some generalized weakness as well Speech: speech normal Psych affect normal Psych Narrative: Eye contact is good, patient interacts appropriately, extremely pleasant Assessment & Plan Assessment/Plan (1) Anasarca: (2) Hypoxia: (3) Urinary tract infection: PLAN: Plan Anasarca -Etiology remains unclear--> ruling out DVT which I suspect is unlikely being that he is on Coumadin chronically, ruling out nephrotic syndrome with 24-hour urine, ruling out [place]'s disease with 24-hour urine cortisol and dexamethasone suppression test Patient does have features consistent with [place]'s disorder however he has chronic issues that could make this convoluted -Progressively worsening over the last several months -Not convinced likely related to heart failure right or left, nephrotic syndrome, no signs of liver disease -Some improved response to 80 of Lasix twice daily with stable renal function so we will continue this for today and repeat lab in a.m. -Echocardiogram shows an EF of 55% with right ventricular systolic pressures of 25 mmHg and no evidence of diastolic dysfunction or valvular dysfunction -BNP was within normal limits -TSH is overtly unremarkable -Patient does not appear to be malnourished as albumin is relatively normal Acute hypoxia -Resolved at rest -Patient may need ambulatory pulse ox prior to discharge ESBL Klebsiella pneumonia will transition antibiotics to meropenem and consult ID -Discontinue ceftriaxone with ESBL producing organism -Start meropenem 500 twice daily for renal dosing -Consult infectious disease Hypokalemia -Resolved however patient on ongoing diuresis so we will repeat lab in a.m. -Magnesium levels within normal limits Acute on chronic constipation -Patient with large bowel movement on Sunday -Good results with GoLytely x 1 L -Continue MiraLAX but increase to twice daily and as needed senna -Consider discontinuation of iron supplementation if hemoglobin remained stable Right-sided trunk pain -No rash consistent with shingles however symptoms are more shingles-like with hypersensitivity -continue gabapentin 100 mg 3 times daily and monitor Left great toe infection -Continue home doxycycline DM-2 -Last hemoglobin A1c was from September and was elevated 8.3 -Blood sugars this morning look good -Continue home regimen of basal insulin 20 units at at bedtime and 7 units 3 times daily -SSI -Cardiac/carb controlled diet Carotid stenosis -Continue aspirin -Continue Coumadin -Continue outpatient follow-up with Dr. Be -Status post stent 11/03/2022 CAD/HTN/HPL -History of RCA angioplasty -Continue aspirin -Continue statin -Continue Coreg History of iron deficiency anemia -Hemoglobin is normalized and stable -Continue outpatient supplementation but if remains stable may discontinue as this could be exacerbating his constipation CKD stage IIIb -Baseline serum creatinine appears to fluctuate between 1.5 and 2.2 over the last year -Currently 1.9 -Continue diuresis -Avoid nephrotoxins as able -Repeat BMP in a.m. PAF -Continue Coumadin as INR is therapeutic -Continue home Coreg -Continue home amiodarone Hypothyroidism -Continue home Synthroid -TSH was 5.38 -Free T4 within normal limits KIM -Continue CPAP with O2 bleed GERD -Continue home PPI BPH with obstruction -Continue home Flomax -Márquez placement DVT prophylaxis -Continue Coumadin-INR is therapeutic CODE STATUS -DNR CCA with no intubation as verified on admission Charges/Coding Visit Charges Inpatient E&M: 81139 Subs Hosp L2
[2023-07-22] MEDS: Meropenem 500 MG in 0.9% Normal Saline (50mL MB+) 50 ML 100 MG IV ×2 (13:49→21:21)
[2023-07-22 14:15] VITALS: BP 129/66; PULSE 71; RESP 16; TEMP 36.6; O2SAT 93
[2023-07-22] MEDS: Jantoven 2 MG Tablet PO (16:03)
[2023-07-22 16:41] LABS: Bedside Glucose 195 mg/dL (74-106)
[2023-07-22] MEDS: Tamsulosin HCl 0.4 MG Capsule PO (17:00)
[2023-07-22 17:31] LABS: 24 Hour Urine Protein 209.3 mg/24HR (<150 MG/24HR); 24HR. UA Prot. Total Volume 2300 mL; Urine Protein (24 Hour) 9.1 mg/dL (<11.9)
[2023-07-22 21:06] VITALS: BP 143/69; PULSE 73; RESP 18; TEMP 36.3; O2SAT 93
[2023-07-22] MEDS: Loratadine 10 MG Tablet PO (21:20)
[2023-07-22] MEDS: Atorvastatin Calcium 40 MG Tablet PO (21:20)
[2023-07-22] MEDS: Insulin Glargine-YFGN 100 UNIT/ML Pen 20 UNIT SC (21:24)
[2023-07-22 23:21] LABS: Bedside Glucose 196 mg/dL (74-106)
[2023-07-23 01:47] VITALS: BMI 39.4
[2023-07-23 03:13] VITALS: BP 142/71; PULSE 83; RESP 18; TEMP 36.7; O2SAT 95
[2023-07-23] MEDS: Levothyroxine 50 MCG Tablet PO (05:14)
[2023-07-23] MEDS: Acetaminophen 325 MG Tablet 650 MG PO (05:14)
[2023-07-23 05:40] LABS: Absolute Lymphocyte Count 1.81 X10^3/uL (0.83-4.51); Absolute Neutrophil Count 6.8 X10^3/uL (2.0-7.7); Basophil# 0.05 X10^3/uL; Basophil% 0.5 % (0-1); Eosinophil# 0.06 X10^3/uL; Eosinophils% 0.6 % (0-5); Hematocrit 39.7 % (40-54); Hemoglobin 12.5 g/dL (13.0-16.5); Lymphocyte # 1.81 X10^3/ul (0.83-4.51); Lymphocyte % 19.3 % (19-41); Mean Corp Hgb Conc 31.5 g/dL (32-36); Mean Corpuscular Hgb 28.8 pg (27.0-32.0); Mean Corpuscular Volume 91.5 fL (80-94); Mean Platelet Vol. 9.6 fl (6.2-12.0); Monocyte# 0.65 X10^3/uL; Monocyte% 6.9 % (0-10); NRBC Flagged by Analyzer 0 % (0-5); Neutrophil # 6.77 X10^3/uL (2.7-7.7); Neutrophil % 72.2 % (47-70); Platelet Count 148 K/mm3 (150-450); RBC Distribution Width CV 15.1 % (11.6-14.6); RBC Distribution Width SD 50.7 fl (35.1-43.9); Red Blood Count 4.34 M/mm3 (4.6-6.2); White Blood Count 9.4 K/mm3 (4.4-11.0)
[2023-07-23 05:55] LABS: Anion Gap 6 (5-15); BUN 41 mg/dL (7-18); Calcium,Total 8.7 mg/dL (8.5-10.1); Chloride 104 mmol/L (98-107); Creatinine, Serum 1.71 mg/dL (0.70-1.30); EST Glomerular Filtration Rate 41 mL/min (>60); Est Glom Filt Rate - Afr Amer 50 mL/min (>60); Estimated Creatinine Clearance 28.85 ml/min; Glucose 118 mg/dL (74-106); Magnesium 2.2 mg/dL (1.6-2.6); Potassium 3.5 mmol/L (3.5-5.1); Sodium Level 142 mmol/L (136-145)
[2023-07-23 06:19] LABS: Prothrombin Time (Protime)PT. 23.2 SECONDS (11.7-14.9)
[2023-07-23 07:52] VITALS: BMI 38.6
[2023-07-23 08:16] VITALS: BP 141/72; PULSE 72; RESP 18; TEMP 36.6; O2SAT 92
[2023-07-23] MEDS: Gabapentin 100 MG Capsule PO ×3 (08:23→16:33)
[2023-07-23] MEDS: Carvedilol 12.5 MG Tablet PO ×2 (08:23→16:35)
[2023-07-23] MEDS: Ferrous Sulfate 325 MG Tablet PO ×2 (08:23→16:36)
[2023-07-23 09:14] LABS: Bedside Glucose 93 mg/dL (74-106)
--- NOTE | 2023-07-23 09:28 | PN.HOSP_ITS ---
Subjective Subjective Edema improving. Objective Data Objective Data Vital Signs: Vital Signs Temp Pulse Resp BP Pulse Ox O2 Del Method O2 Flow Rate 36.6 C 72 18 141/72 H 92 Room Air 2 07/23/23 08:16 07/23/23 08:16 07/23/23 08:16 07/23/23 08:16 07/23/23 08:16 07/23/23 08:16 07/21/23 14:00 Oxygen Flow Rate (L/min) 2 Oxygen Delivery Method Room Air Weight: 102.557 kg Body Mass Index (BMI) 38.6 Intake & Output: Intake and Output for Last 24 Hours 07/21/23 07/22/23 07/23/23 23:59 23:59 23:59 Intake Total 1070 / 1070 1650 / 1650 Output Total 1000 / 1000 2750 / 4150 2750 / 2750 Balance 70 / 70 -1100 / -2500 -2750 / -2750 Lab / Micro Data 07/23/23 04:20 07/23/23 04:20 Labs: Laboratory Results - last 24 hr 07/22/23 04:25: Miscellaneous Test Cancelled 07/22/23 08:09: POC Glucose 118 H 07/22/23 10:37: POC Glucose 208 H 07/22/23 15:58: POC Glucose 195 H 07/22/23 16:03: Urine Collection Time 24.0, Timed Urine Volume 2300, Ur Total Protein 24 Hr 209.3 H, Urine Total Protein 9.1 07/22/23 21:11: POC Glucose 196 H 07/23/23 04:20: WBC 9.4, RBC 4.34 L, Hgb 12.5 L, Hct 39.7 L, MCV 91.5, MCH 28.8, MCHC 31.5 L, RDW Std Deviation 50.7 H, RDW Coeff of Alley 15.1 H, Plt Count 148 L, MPV 9.6, Immature Gran % (Auto) 0.500, Neut % (Auto) 72.2 H, Lymph % (Auto) 19.3, [place] % (Auto) 6.9, Eos % (Auto) 0.6, Baso % (Auto) 0.5, Absolute Neuts (auto) 6.8, Absolute Lymphs (auto) 1.81, Nucleated RBC % 0, PT 23.2 H, INR 2.0, Sodium 142, Potassium 3.5, Chloride 104, Carbon Dioxide 32.0, Anion Gap 6, BUN 41 H, Creatinine 1.71 H, Estim Creat Clear Calc 28.85, Est GFR (MDRD) Af Amer 50 L, Est GFR (MDRD) Non-Af 41 L, BUN/Creatinine Ratio 24.0 H, Glucose 118 H, Calcium 8.7, Magnesium 2.2 07/23/23 07:54: POC Glucose 93 Micro: Microbiology 07/20/23 18:35 Urine, Clean Catch Urine Culture - Final ESBL Klebsiella pneumoniae pne Physical Exam Const alert and no apparent distress Resp normal respiratory effort and no retractions Cardio regular rate, regular rhythm, S1 normal heart sound and S2 normal heart sound GI normal to inspection, nondistended, normoactive bowel sounds, soft to palpation, non-tender and non-distended Extremity Extremity Narrative: edema in UE and LE bilaterally. Edema extending up to buttocks on LE. Neuro Sensorium / Orientation: awake and alert Psych affect normal Assessment & Plan Assessment/Plan (1) Anasarca: (2) Hypoxia: (3) Urinary tract infection: PLAN: Plan Anasarca * Progressively worsening over the last several months. Weight up 10kg from last month, though previously, weight has hovered around 100kg previously. * 24 urine protein elevated, therefore, concern for nephrotic syndrome. Will consult nephrology. * Continue furosmide 80 BID * Echocardiogram shows an EF of 55% with right ventricular systolic pressures of 25 mmHg and no evidence of diastolic dysfunction or valvular dysfunction. BNP was within normal limits. TSH is overtly unremarkable. Acute hypoxia * -Resolved at rest-Patient may need ambulatory pulse ox prior to discharge ESBL Klebsiella pneumonia UTI * meropenem and consult ID Hypokalemia * Resolved however patient on ongoing diuresis so we will repeat lab in a.m. * Magnesium levels within normal limits Acute on chronic constipation * Patient with large bowel movement on Sunday. Good results with GoLytely x 1 L. -Continue MiraLAX but increase to twice daily and as needed senna * Consider discontinuation of iron supplementation if hemoglobin remained stable Right-sided trunk pain * No rash consistent with shingles however symptoms are more shingles-like with hypersensitivity * continue gabapentin 100 mg 3 times daily and monitor Left great toe infection * Continue home doxycycline Chronic conditions: * DM-2-Last hemoglobin A1c was from September and was elevated 8.3-Blood sugars this morning look good-Continue home regimen of basal insulin 20 units at at bedtime and 7 units 3 times [id number]/carb controlled diet * Carotid stenosis-Continue aspirin-Continue Coumadin-Continue outpatient follow-up with Dr. Be-Status post stent 11/03/2022 * CAD/HTN/HPL-History of RCA angioplasty-Continue aspirin-Continue statin- Continue Coreg * History of iron deficiency anemia-Hemoglobin is normalized and stable-Continue outpatient supplementation but if remains stable may discontinue as this could be exacerbating his constipation * CKD stage IIIb-Baseline serum creatinine appears to fluctuate between 1.5 and 2.2 over the last year-Currently 1.9-Continue diuresis-Avoid nephrotoxins as able-Repeat BMP in a.m. 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 Charges/Coding Visit Charges Inpatient E&M: 33306 Subs Hosp L2
[2023-07-23 10:19] VITALS: O2SAT 92
[2023-07-23 10:20] VITALS: BP 143/72; PULSE 70; RESP 18; TEMP 36.6; O2SAT 94
[2023-07-23] MEDS: Meropenem 500 MG in 0.9% Normal Saline (50mL MB+) 50 ML 100 MG IV ×2 (10:22→21:40)
[2023-07-23] MEDS: Polyethylene Glycol 3350 17 GM PACKET PO (10:23)
[2023-07-23] MEDS: Furosemide 100 MG/10 ML Vial 80 MG IV ×2 (10:23→16:38)
[2023-07-23] MEDS: amLODIPine 10 MG Tablet PO (10:24)
[2023-07-23] MEDS: Doxycycline 100 MG CAPSULE PO ×2 (10:24→21:38)
[2023-07-23] MEDS: Aspirin E.C. 81 MG Tablet PO (10:24)
[2023-07-23] MEDS: Cholecalciferol (VIT D3) 25 MCG TABLET (1,000 UNITS) PO (10:24)
[2023-07-23] MEDS: Amiodarone 200 MG Tablet 100 MG PO (10:24)
[2023-07-23] MEDS: Pantoprazole Sodium 20 MG Tablet PO (10:27)
--- NOTE | 2023-07-23 11:18 | WOUNDNOTE ---
wound photo: left great toe
[2023-07-23] MEDS: Insulin Lispro 100 UNIT/ML INSULN.PEN SC ×3 (11:24→21:39)
[2023-07-23] MEDS: Insulin Lispro 100 UNIT/ML INSULN.PEN 7 UNIT SC ×2 (11:25→16:33)
[2023-07-23 11:45] LABS: Bedside Glucose 156 mg/dL (74-106)
--- NOTE | 2023-07-23 14:44 | CHAPLAIN ---
Type of Pastoral Visit _x__ Initial Visit ___ Follow-up Visit ___ On-call Visit ___ General Patient Visit ___ Spiritual Assessment ___ Family Conference ___ Bereavement ___ Rapid Response ___ Code Blue ___ Other (describe below) Pastoral Care Referral From _x__ Patient _x__ Family ___ Nurse ___ Physician ___ Financial Systems Analyst ___ Product Manager Financial Services ___ Other (describe below) Sacrament/Intervention _x__ Active listening ___ Anointing ___ Orthodoxy ___ Bereavement ___ Communion _x__ Tori exploration ___ _x__ Life review _x__ Prayer ___ Reconciliation ___ Sacrament of Sick _x__ Supportive presence ___ Wedding ___ Other (describe below) Pastoral Comments patient has two daughters with him in the room; other [facility] members stop by to visit briefly during this encounter; pt is very talkative and asks this motorcycle tester many questions; 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
--- NOTE | 2023-07-23 14:48 | CON.PCM.ID_ITS ---
Assessment & Plan Assessment/Plan (1) Chronic kidney disease: (2) Urinary tract infection: PLAN: ESBL klebs uti - on ayde. Plan on short course po levaquin at discharge to finish. L toe infection - completes po doxy in 2 days. Will follow, thank you HPI Consult Data Date of Consult: 07/23/23 HPI Narrative Reason for Consultation: esbl infection HPI Narrative: JOSE A STEIN, is a 82 M with h/o KIM, gerd, CAD, asthma, CKD, presented 07/20 with one week increased edema, abd discomfort. 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 No fever, mild chills. Some increased nighttime urination, no dysuria. Came to ED, admitted, now on meropenem and doxy continued. Full ROS performed and neg except as noted above. 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 Long-term use of high-risk medication Low iron Lung nodule Non-smoker On home oxygen therapy Paroxysmal A-fib Presence of stent in coronary artery (~07/04/18) Pressure ulcer Prostate disease Renal insufficiency Restrictive airway disease Thyroid disease TIA (transient ischemic attack) Walker as ambulation aid Wears glasses Home Medications omeprazole 20 mg capsule,delayed release 20 mg PO DAILY gerd 07/02/18 [History Last Taken 11/03/22 03:00] ferrous sulfate 325 mg (65 mg iron) tablet 325 mg PO BID anemia 02/19/20 [His tory Last Taken 09/06/22] cholecalciferol (vitamin D3) 25 mcg (1,000 unit) tablet 25 mcg PO DAILY health maintenence 02/27/22 [History Last Taken 09/05/22] amiodarone 200 mg tablet 100 mg PO DAILY heart 09/15/22 [History Last Taken 11/03/22 03:00] atorvastatin 40 mg tablet 40 mg PO QHS cholesterol 09/15/22 [History Last Taken Unknown] cetirizine 10 mg capsule 10 mg PO HS allergies 09/15/22 [History Last Taken Unknown] aspirin 81 mg tablet,delayed release (Adult Aspirin Regimen) 81 mg PO DAILY [facility] 09/28/22 [History Last Taken Unknown] insulin glargine-yfgn 100 unit/mL (3 mL) subcutaneous pen 20 unit subcut QHS slow acting insulin 10/20/22 [History Last Taken Unknown] insulin lispro 100 unit/mL subcutaneous pen (Humalog KwikPen (U-100) Insulin) 7 unit subcut TIDAC blood glucose 10/20/22 [History Last Taken Unknown] levothyroxine 50 mcg tablet 50 mcg PO 0600 thyroid 10/20/22 [History Last Taken 11/03/22 03:00] lorazepam 0.5 mg tablet 0.5 mg PO BID PRN Anxiety 10/20/22 [History Last Taken Unknown] tamsulosin 0.4 mg capsule 0.4 mg PO DAILY@1730 urine flow 10/20/22 [History Last Taken Unknown] warfarin 2 mg tablet ([place]) 2 mg PO 1700 blood thinner 10/20/22 [History Last Taken 10/30/22] prednisone 10 mg tablet 10 mg PO DAILYCM inflamation #90 tabs 10/23/22 [Rx Last Taken Unknown] albuterol sulfate 90 mcg/actuation aerosol inhaler 2 puff inhalation Q4H PRN shortness of breath or wheezing #8.5 grams 01/11/23 [Rx Last Taken Unknown] amlodipine 10 mg tablet 10 mg PO DAILY #90 tabs 03/08/23 [Rx Last Taken Unknown] tizanidine 6 mg capsule 6 mg PO Q8H PRN muscle spasticity 07/05/23 [History Last Taken Unknown] carvedilol 12.5 mg tablet (Coreg) 12.5 mg PO BID #60 tabs 07/06/23 [Rx Last Taken Unknown] furosemide 40 mg tablet 40 mg PO BIDLX water pill 07/10/23 [History Last Taken Unknown] doxycycline monohydrate 100 mg capsule 100 mg PO BID 07/20/23 [History Last Taken Unknown] Allergy/AdvReac Type Severity Reaction Status Date / Time No Known Allergies Allergy Verified 07/20/23 17:22 Family History (Updated 07/20/23 @ 21:[address] Susan Barrera MD) Mother Hypertension Heart disease Father No problems noted. Surgical History History of cardiac catheterization History of hernia repair History of hip replacement History of partial knee replacement Presence of coronary angioplasty implant and graft (~07/04/18) Status post carotid surgery Social History household members: spouse Smoking Status: Never smoker alcohol intake: never substance use type: does not use Physical Exam Const alert, oriented x3 and no apparent distress General Appearance: cooperative HEENT normocephalic and head/scalp atraumatic Eyes PERRL and EOMs intact bilaterally Neck supple and No nodes Resp normal air movement and clear to auscultation bilaterally Cardio regular rate and regular rhythm GI soft to palpation, non-tender and non-distended Extremity General Extremity: edema Skin Skin Narrative: reviewed photo L toe Neuro CN's II-XII intact bilaterally Lab / Micro Data Attestation: I reviewed the patient's lab results. 07/23/23 04:20 07/23/23 04:20 Labs: Laboratory Results - last 24 hr 07/22/23 15:58: POC Glucose 195 H 07/22/23 16:03: Urine Collection Time 24.0, Timed Urine Volume 2300, Ur Total Protein 24 Hr 209.3 H, Urine Total Protein 9.1 07/22/23 21:11: POC Glucose 196 H 07/23/23 04:20: WBC 9.4, RBC 4.34 L, Hgb 12.5 L, Hct 39.7 L, MCV 91.5, MCH 28.8, MCHC 31.5 L, RDW Std Deviation 50.7 H, RDW Coeff of Alley 15.1 H, Plt Count 148 L, MPV 9.6, Immature Gran % (Auto) 0.500, Neut % (Auto) 72.2 H, Lymph % (Auto) 19.3, Arthur % (Auto) 6.9, Eos % (Auto) 0.6, Baso % (Auto) 0.5, Absolute Neuts (auto) 6.8, Absolute Lymphs (auto) 1.81, Nucleated RBC % 0, PT 23.2 H, INR 2.0, Sodium 142, Potassium 3.5, Chloride 104, Carbon Dioxide 32.0, Anion Gap 6, BUN 41 H, Creatinine 1.71 H, Estim Creat Clear Calc 28.85, Est GFR (MDRD) Af Amer 50 L, Est GFR (MDRD) Non-Af 41 L, BUN/Creatinine Ratio 24.0 H, Glucose 118 H, Calcium 8.7, Magnesium 2.2 07/23/23 07:54: POC Glucose 93 07/23/23 11:22: POC Glucose 156 H Micro: Microbiology 07/20/23 19:00 Blood Culture (Wb) - Anticubital Left Blood Culture - Preliminary No growth in 48 hours. 07/20/23 18:12 Blood Culture (Wb) - Anticubital Left Blood Culture - Preliminary No growth in 48 hours. 07/20/23 18:35 Urine, Clean Catch Urine Culture - Final ESBL Klebsiella pneumoniae pne Imagaing Radiology Impression Venous Doppler Study 07/21/23 15:36 Interpretation Summary Deep veins of the bilateral lower extremities are patent and compressible segmentally. There is no evidence of bilateral lower extremity deep vein thrombosis. The bilateral great saphenous veins appear patent and compressible segmentally. Ordering Physician: Martha Plasencia Referring Physician: MD Aman Eric Performed By: Wen Cam RVT
[2023-07-23 16:20] VITALS: BP 155/70; PULSE 68; RESP 18; TEMP 36.2; O2SAT 92
[2023-07-23] MEDS: Jantoven 2 MG Tablet PO (16:38)
[2023-07-23] MEDS: Tamsulosin HCl 0.4 MG Capsule PO (16:39)
[2023-07-23 17:56] LABS: Bedside Glucose 242 mg/dL (74-106)
[2023-07-23 21:08] LABS: Bedside Glucose 161 mg/dL (74-106)
[2023-07-23] MEDS: Atorvastatin Calcium 40 MG Tablet PO (21:39)
[2023-07-23] MEDS: Insulin Glargine-YFGN 100 UNIT/ML Pen 20 UNIT SC (21:40)
[2023-07-23 22:20] VITALS: BP 138/67; PULSE 68; RESP 16; TEMP 37.1; O2SAT 94
[2023-07-24 03:42] VITALS: BMI 38.5
[2023-07-24 04:00] VITALS: BP 145/67; PULSE 76; RESP 18; TEMP 37.2; O2SAT 94
[2023-07-24] MEDS: Levothyroxine 50 MCG Tablet PO (04:34)
[2023-07-24 06:06] LABS: Absolute Lymphocyte Count 1.02 X10^3/uL (0.83-4.51); Absolute Neutrophil Count 8.2 X10^3/uL (2.0-7.7); Basophil# 0.03 X10^3/uL; Basophil% 0.3 % (0-1); Eosinophil# 0.02 X10^3/uL; Eosinophils% 0.2 % (0-5); Hematocrit 40.7 % (40-54); Hemoglobin 12.6 g/dL (13.0-16.5); Lymphocyte # 1.02 X10^3/ul (0.83-4.51); Lymphocyte % 10.3 % (19-41); Mean Corpuscular Hgb 28.5 pg (27.0-32.0); Mean Corpuscular Volume 92.1 fL (80-94); Mean Platelet Vol. 9.4 fl (6.2-12.0); Monocyte# 0.51 X10^3/uL; Monocyte% 5.2 % (0-10); NRBC Flagged by Analyzer 0 % (0-5); Neutrophil # 8.23 X10^3/uL (2.7-7.7); Neutrophil % 83.5 % (47-70); Platelet Count 146 K/mm3 (150-450); RBC Distribution Width CV 15.2 % (11.6-14.6); RBC Distribution Width SD 51.5 fl (35.1-43.9); Red Blood Count 4.42 M/mm3 (4.6-6.2); White Blood Count 9.9 K/mm3 (4.4-11.0)
[2023-07-24 06:19] LABS: Anion Gap 3 (5-15); BUN 38 mg/dL (7-18); BUN/Creat Ratio 22.9 RATIO (10-20); Calcium,Total 8.7 mg/dL (8.5-10.1); Chloride 103 mmol/L (98-107); Creatinine, Serum 1.66 mg/dL (0.70-1.30); EST Glomerular Filtration Rate 43 mL/min (>60); Est Glom Filt Rate - Afr Amer 51 mL/min (>60); Estimated Creatinine Clearance 29.72 ml/min; Glucose 163 mg/dL (74-106); Sodium Level 140 mmol/L (136-145)
[2023-07-24 06:23] LABS: International Normalized Ratio 1.9; Prothrombin Time (Protime)PT. 21.6 SECONDS (11.7-14.9)
--- NOTE | 2023-07-24 08:29 | PN.HOSP_ITS ---
Subjective Subjective Decreased edema. Feeling ready to go home. Objective Data Objective Data Vital Signs: Vital Signs Temp Pulse Resp BP Pulse Ox O2 Del Method O2 Flow Rate 37.2 C 76 18 145/67 H 94 Room Air 2 07/24/23 04:00 07/24/23 04:00 07/24/23 04:00 07/24/23 04:00 07/24/23 04:00 07/24/23 04:00 07/22/23 22:47 Oxygen Flow Rate (L/min) 2 Oxygen Delivery Method Room Air Weight: 102.3 kg Body Mass Index (BMI) 38.5 Intake & Output: Intake and Output for Last 24 Hours 07/22/23 07/23/23 07/24/23 23:59 23:59 23:59 Intake Total 1650 / 1650 1260 / 1260 240 / 240 Output Total 2750 / 4150 3950 / 3950 700 / 700 Balance -1100 / -2500 -2690 / -2690 -460 / -460 Lab / Micro Data 07/24/23 05:30 07/24/23 05:30 Labs: Laboratory Results - last 24 hr 07/23/23 07:54: POC Glucose 93 07/23/23 11:22: POC Glucose 156 H 07/23/23 16:25: POC Glucose 242 H 07/23/23 20:35: POC Glucose 161 H 07/24/23 05:30: WBC 9.9, RBC 4.42 L, Hgb 12.6 L, Hct 40.7, MCV 92.1, MCH 28.5, MCHC 31.0 L, RDW Std Deviation 51.5 H, RDW Coeff of Alley 15.2 H, Plt Count 146 L, MPV 9.4, Immature Gran % (Auto) 0.500, Neut % (Auto) 83.5 H, Lymph % (Auto) 10.3 L, [place] % (Auto) 5.2, Eos % (Auto) 0.2, Baso % (Auto) 0.3, Absolute Neuts (auto) 8.2 H, Absolute Lymphs (auto) 1.02, Nucleated RBC % 0, PT 21.6 H, INR 1.9, Sodium 140, Potassium 4.0, Chloride 103, Carbon Dioxide 34.0 H, Anion Gap 3 L, BUN 38 H, Creatinine 1.66 H, Estim Creat Clear Calc 29.72, Est GFR (MDRD) Af Amer 51 L, Est GFR (MDRD) Non-Af 43 L, BUN/Creatinine Ratio 22.9 H, Glucose 163 H, Calcium 8.7 Micro: Microbiology 07/20/23 19:00 Blood Culture (Wb) - Anticubital Left Blood Culture - Preliminary No growth in 48 hours. 07/20/23 18:12 Blood Culture (Wb) - Anticubital Left Blood Culture - Preliminary No growth in 48 hours. 07/20/23 18:35 Urine, Clean Catch Urine Culture - Final ESBL Klebsiella pneumoniae pne Radiography Diagnostic Testing: Radiology Impression Venous Doppler Study 07/21/23 15:36 Interpretation Summary Deep veins of the bilateral lower extremities are patent and compressible segmentally. There is no evidence of bilateral lower extremity deep vein thrombosis. The bilateral great saphenous veins appear patent and compressible segmentally. Ordering Physician: Martha Plasencia Referring Physician: MD Aman Eric Performed By: Wen Cam RVMarcelino Physical Exam Const alert and no apparent distress Resp normal respiratory effort Cardio regular rate, regular rhythm, S1 normal heart sound and S2 normal heart sound GI normal to inspection, nondistended, normoactive bowel sounds, soft to palpation, non-tender and non-distended Extremity Extremity Narrative: Still with upper and lower extremity edema. Edema in his buttocks as well as his abdomen. Skin Skin Narrative: Venous stasis changes. Neuro Sensorium / Orientation: awake and alert Assessment & Plan Assessment/Plan (1) Anasarca: (2) Hypoxia: (3) Urinary tract infection: PLAN: Plan Anasarca * Progressively worsening over the last several months. Weight up 10kg from last month, though previously, weight has hovered around 100kg previously. * 24 urine protein elevated, therefore, concern for nephrotic syndrome. Will consult nephrology. * Continue furosemide 80 BID though the patient is improving, I feel he would benefit from further diuresis. * Echocardiogram shows an EF of 55% with right ventricular systolic pressures of 25 mmHg and no evidence of diastolic dysfunction or valvular dysfunction. BNP was within normal limits. TSH is overtly unremarkable. Duplex LE negative. Acute hypoxia * -Resolved at rest-Patient may need ambulatory pulse ox prior to discharge ESBL Klebsiella pneumonia UTI * meropenem and consult ID Hypokalemia * Resolved however patient on ongoing diuresis so we will repeat lab in a.m. * Magnesium levels within normal limits Acute on chronic constipation * Patient with large bowel movement on Sunday. Good results with GoLytely x 1 L. -Continue MiraLAX but increase to twice daily and as needed senna * Consider discontinuation of iron supplementation if hemoglobin remained stable Right-sided trunk pain * No rash consistent with shingles however symptoms are more shingles-like with hypersensitivity * continue gabapentin 100 mg 3 times daily and monitor Left great toe infection * Continue home doxycycline Chronic conditions: * DM-2-Last hemoglobin A1c was from September and was elevated 8.3-Blood sugars this morning look good-Continue home regimen of basal insulin 20 units at at bedtime and 7 units 3 times obcfv-NLG-Fvlcdez/carb controlled diet * Carotid stenosis-Continue aspirin-Continue Coumadin-Continue outpatient follow-up with Dr. Be-Status post stent 11/03/2022 * CAD/HTN/HPL-History of RCA angioplasty-Continue aspirin-Continue statin- Continue Coreg * History of iron deficiency anemia-Hemoglobin is normalized and stable-Continue outpatient supplementation but if remains stable may discontinue as this could be exacerbating his constipation * CKD stage IIIb-Baseline serum creatinine appears to fluctuate between 1.5 and 2.2 over the last year-Currently 1.9-Continue diuresis-Avoid nephrotoxins as able-Repeat BMP in a.m. 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 Greater than 55 minutes of which greater than 50% of time was discussing with treatment for the CHF with furosemide. Also doing interdisciplinary rounds on the floor. Charges/Coding Visit Charges Inpatient E&M: 60927 Subs Hosp L3
[2023-07-24] MEDS: Insulin Lispro 100 UNIT/ML INSULN.PEN 7 UNIT SC ×3 (08:52→17:34)
[2023-07-24] MEDS: Insulin Lispro 100 UNIT/ML INSULN.PEN SC ×4 (08:54→20:19)
[2023-07-24] MEDS: Doxycycline 100 MG CAPSULE PO ×2 (08:55→20:19)
[2023-07-24] MEDS: Amiodarone 200 MG Tablet 100 MG PO (08:55)
[2023-07-24] MEDS: Carvedilol 12.5 MG Tablet PO ×2 (08:55→17:32)
[2023-07-24] MEDS: Aspirin E.C. 81 MG Tablet PO (08:55)
[2023-07-24] MEDS: amLODIPine 10 MG Tablet PO (08:56)
[2023-07-24] MEDS: Ferrous Sulfate 325 MG Tablet PO ×2 (08:56→17:33)
[2023-07-24] MEDS: Furosemide 100 MG/10 ML Vial 80 MG IV ×2 (08:56→17:33)
[2023-07-24] MEDS: Pantoprazole Sodium 20 MG Tablet PO (08:56)
[2023-07-24] MEDS: Cholecalciferol (VIT D3) 25 MCG TABLET (1,000 UNITS) PO (08:57)
[2023-07-24] MEDS: Meropenem 500 MG in 0.9% Normal Saline (50mL MB+) 50 ML 100 MG IV ×2 (09:06→20:20)
[2023-07-24] MEDS: Gabapentin 100 MG Capsule PO ×3 (09:06→17:38)
[2023-07-24 10:00] VITALS: BP 145/73; PULSE 80; RESP 18; TEMP 36.6; O2SAT 95
[2023-07-24 12:45] LABS: Bedside Glucose 153 mg/dL (74-106)
--- NOTE | 2023-07-24 15:00 | PCM.CONS.R ---
Assessment & Plan Assessment/Plan (1) Acute kidney injury superimposed on CKD: PLAN: Cr 2.25 on admit improved to 1.66 close to baseline likely due to prerenal event, UTI (2) CKD (chronic kidney disease), stage III: QUALIFIERS: Chronic kidney disease stage 3 subtype: stage 3b (GFR 30-44) Qualified Code(s): N18.32 - Chronic kidney disease, stage 3b PLAN: baseline creatinine 1.3 eGFR 38cc/min due to diabetes, hypertension. 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 production technician use (4) Morbid obesity: (5) Urinary tract infection: QUALIFIERS: Urinary tract infection type: acute cystitis PLAN: ID following (6) KIM (obstructive sleep apnea): (7) Atrial fibrillation: PLAN: on anticoagulation (8) Coronary artery disease: PLAN: stable (9) Essential hypertension: PLAN: stable (10) CHF (congestive heart failure): QUALIFIERS: Heart failure chronicity: chronic Heart failure type: systolic Qualified Code(s): I50.22 - Chronic systolic (congestive) heart failure PLAN: on iv lasix HPI Consult Data Date of Consult: 07/24/23 HPI Narrative HPI Narrative: JOSE A STEIN, is a 82 M who presents to [facility] for UTI. Currently treated for ESBL UTI, flank pain, ID on consult. Consulted for CKD stage III baseline Cr Cr 1.5-2.3 from prerenal event on chronic diuretic therapy for fluid overload, dyspnea on exertion, morbid obesity with chronic edema. He has been on escalating doses of lasix at home until he has worsening renal function. Echo shows preserved LV function. He is in afib. Creatinine 1.66 today improved from 2.25 on admission. 24h urine protein 209mg. BNP 57.4, CXR no infiltrates or CHF. He denied urinary complaints with his UTI. Denied fever, chills. Edema improving on iv lasix and oz wraps. Denies uremic symptoms. 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 Long-term use of high-risk medication Low iron Lung nodule Non-smoker On home oxygen therapy Paroxysmal A-fib Presence of stent in coronary artery (~07/04/18) Pressure ulcer Prostate disease Renal insufficiency Restrictive airway disease Thyroid disease TIA (transient ischemic attack) Walker as ambulation aid Wears glasses Home Medications omeprazole 20 mg capsule,delayed release 20 mg PO DAILY gerd 07/02/18 [History Last Taken 11/03/22 03:00] ferrous sulfate 325 mg (65 mg iron) tablet 325 mg PO BID anemia 02/19/20 [History Last Taken 09/06/22] cholecalciferol (vitamin D3) 25 mcg (1,000 unit) tablet 25 mcg PO DAILY [facility] 02/27/22 [History Last Taken 09/05/22] amiodarone 200 mg tablet 100 mg PO DAILY heart 09/15/22 [History Last Taken 11/03/22 03:00] atorvastatin 40 mg tablet 40 mg PO QHS cholesterol 09/15/22 [History Last Taken Unknown] cetirizine 10 mg capsule 10 mg PO HS allergies 09/15/22 [History Last Taken Unknown] aspirin 81 mg tablet,delayed release (Adult Aspirin Regimen) 81 mg PO DAILY [facility] 09/28/22 [History Last Taken Unknown] insulin glargine-yfgn 100 unit/mL (3 mL) subcutaneous pen 20 unit subcut QHS slow acting insulin 10/20/22 [History Last Taken Unknown] insulin lispro 100 unit/mL subcutaneous pen (Humalog KwikPen (U-100) Insulin) 7 unit subcut TIDAC blood glucose 10/20/22 [History Last Taken Unknown] levothyroxine 50 mcg tablet 50 mcg PO 0600 thyroid 10/20/22 [History Last Taken 11/03/22 03:00] lorazepam 0.5 mg tablet 0.5 mg PO BID PRN Anxiety 10/20/22 [History Last Taken Unknown] tamsulosin 0.4 mg capsule 0.4 mg PO DAILY@1730 urine flow 10/20/22 [History Last Taken Unknown] warfarin 2 mg tablet ([place]) 2 mg PO 1700 blood thinner 10/20/22 [History Last Taken 10/30/22] prednisone 10 mg tablet 10 mg PO DAILYCM inflamation #90 tabs 10/23/22 [Rx Last Taken Unknown] albuterol sulfate 90 mcg/actuation aerosol inhaler 2 puff inhalation Q4H PRN shortness of breath or wheezing #8.5 grams 01/11/23 [Rx Last Taken Unknown] amlodipine 10 mg tablet 10 mg PO DAILY #90 tabs 03/08/23 [Rx Last Taken Unknown] tizanidine 6 mg capsule 6 mg PO Q8H PRN muscle spasticity 07/05/23 [History Last Taken Unknown] carvedilol 12.5 mg tablet (Coreg) 12.5 mg PO BID #60 tabs 07/06/23 [Rx Last Taken Unknown] furosemide 40 mg tablet 40 mg PO BIDLX water pill 07/10/23 [History Last Taken Unknown] doxycycline monohydrate 100 mg capsule 100 mg PO BID 07/20/23 [History Last Taken Unknown] Allergy/AdvReac Type Severity Reaction Status Date / Time No Known Allergies Allergy Verified 07/20/23 17:22 Family History (Updated 07/20/23 @ 21:[address] Susan Barrera MD) Mother Hypertension Heart disease Father No problems noted. Surgical History History of cardiac catheterization History of hernia repair History of hip replacement History of partial knee replacement Presence of coronary angioplasty implant and graft (~07/04/18) Status post carotid surgery Social History household members: spouse Smoking Status: Never smoker alcohol intake: never substance use type: does not use ROS Constitutional Constitutional: Reports weakness; Denies chills or fever(s) Eyes Eyes: Denies loss of vision ENT HEENT: Reports dry mouth Cardiovascular Cardiovascular: Denies chest pain Respiratory/Chest Respiratory/Chest: Reports dyspnea on exertion and shortness of breath at rest; Denies hemoptysis Genitourinary Genitourinary: Reports other Details: dumont catheter ; Denies change in urinary stream Musculoskeletal Musculoskeletal: Denies myalgias Neurologic Neurologic: Denies numbness or syncope Psychiatric Psychiatric: Denies anxiety, confusion or depression Endocrine Endocrinology: Reports fatigue Hematologic/Lymphatic Hematologic/Lymphatic: Reports anemia, easy bleeding, easy bruising and other Details: halfway anticoagulation use Physical Exam Const alert and oriented x3 General Appearance: well developed Nutritional Appearance: morbidly obese Neck supple Resp clear to auscultation bilaterally Cardio Cardio Narrative: atrial fibrillation on monitor GI non-tender and non-distended GI Narrative: obese Auscultation: normoactive bowel sounds Palpation: soft Extremity General Extremity: edema bilateral (oz wrapped BLE) upper extremity and lower extremity Skin General Skin Exam: ecchymosis Neuro CN's II-XII intact bilaterally Sensorium / Orientation: awake and alert Psych cooperative Medical Records Data Attestation: I reviewed the patient's medical records Lab / Micro Data Attestation: I reviewed the patient's lab results. 07/24/23 05:30 07/24/23 05:30 Labs: Laboratory Results - last 24 hr 07/23/23 16:25: POC Glucose 242 H 07/23/23 20:35: POC Glucose 161 H 07/24/23 05:30: WBC 9.9, RBC 4.42 L, Hgb 12.6 L, Hct 40.7, MCV 92.1, MCH 28.5, MCHC 31.0 L, RDW Std Deviation 51.5 H, RDW Coeff of Alley 15.2 H, Plt Count 146 L, MPV 9.4, Immature Gran % (Auto) 0.500, Neut % (Auto) 83.5 H, Lymph % (Auto) 10.3 L, [place] % (Auto) 5.2, Eos % (Auto) 0.2, Baso % (Auto) 0.3, Absolute Neuts (auto) 8.2 H, Absolute Lymphs (auto) 1.02, Nucleated RBC % 0, PT 21.6 H, INR 1.9, Sodium 140, Potassium 4.0, Chloride 103, Carbon Dioxide 34.0 H, Anion Gap 3 L, BUN 38 H, Creatinine 1.66 H, Estim Creat Clear Calc 29.72, Est GFR (MDRD) Af Amer 51 L, Est GFR (MDRD) Non-Af 43 L, BUN/Creatinine Ratio 22.9 H, Glucose 163 H, Calcium 8.7 07/24/23 08:28: Cortisol 4.90 07/24/23 12:21: POC Glucose 153 H Micro: Microbiology 07/20/23 19:00 Blood Culture (Wb) - Anticubital Left Blood Culture - Preliminary No growth in 48 hours. 07/20/23 18:12 Blood Culture (Wb) - Anticubital Left Blood Culture - Preliminary No growth in 48 hours. 07/20/23 Urine cx ESBL klebsiella pna
[2023-07-24 16:00] VITALS: BP 140/69; PULSE 76; RESP 18; TEMP 36.7; O2SAT 95
[2023-07-24] MEDS: Tamsulosin HCl 0.4 MG Capsule PO (17:33)
[2023-07-24] MEDS: Jantoven 2 MG Tablet PO (17:33)
[2023-07-24] MEDS: 0.9% Saline Lock 10 ML Syringe IV (17:34)
[2023-07-24 18:12] LABS: Bedside Glucose 198 mg/dL (74-106)
[2023-07-24] MEDS: Insulin Glargine-YFGN 100 UNIT/ML Pen 20 UNIT SC (20:19)
[2023-07-24] MEDS: Loratadine 10 MG Tablet PO (20:19)
[2023-07-24] MEDS: Atorvastatin Calcium 40 MG Tablet PO (20:19)
[2023-07-24] MEDS: tiZANidine HCl 2 MG Tablet 6 MG PO (20:25)
[2023-07-24 21:29] LABS: Bedside Glucose 190 mg/dL (74-106)
[2023-07-24 22:00] VITALS: BP 127/79; PULSE 83; RESP 16; TEMP 37.2; O2SAT 94
[2023-07-25 03:00] VITALS: BP 125/78; PULSE 80; RESP 16; TEMP 37.2; O2SAT 96
[2023-07-25] MEDS: Levothyroxine 50 MCG Tablet PO (04:19)
[2023-07-25 04:50] VITALS: BMI 38.7
[2023-07-25 06:50] LABS: Anion Gap 6 (5-15); BUN 44 mg/dL (7-18); BUN/Creat Ratio 21.1 RATIO (10-20); Calcium,Total 8.8 mg/dL (8.5-10.1); Chloride 101 mmol/L (98-107); Creatinine, Serum 2.09 mg/dL (0.70-1.30); EST Glomerular Filtration Rate 33 mL/min (>60); Est Glom Filt Rate - Afr Amer 39 mL/min (>60); Glucose 161 mg/dL (74-106); Potassium 3.7 mmol/L (3.5-5.1); Sodium Level 139 mmol/L (136-145)
[2023-07-25 06:55] LABS: International Normalized Ratio 1.9; Prothrombin Time (Protime)PT. 21.7 SECONDS (11.7-14.9)
[2023-07-25 08:03] LABS: Bedside Glucose 144 mg/dL (74-106)
[2023-07-25] MEDS: tiZANidine HCl 2 MG Tablet 6 MG PO (08:38)
[2023-07-25] MEDS: Ferrous Sulfate 325 MG Tablet PO (08:39)
[2023-07-25] MEDS: Insulin Lispro 100 UNIT/ML INSULN.PEN 7 UNIT SC ×2 (08:39→11:58)
[2023-07-25] MEDS: Gabapentin 100 MG Capsule PO ×2 (08:39→11:58)
[2023-07-25] MEDS: Carvedilol 12.5 MG Tablet PO (08:39)
--- NOTE | 2023-07-25 08:50 | PN.HOSP_ITS ---
Reason for Visit Reason for Visit: Diagnoses Type 2 diabetes mellitus without complications (07/20/23) Morbid (severe) obesity due to excess calories (07/20/23) Obstructive sleep apnea (adult) (pediatric) (07/20/23) Essential (primary) hypertension (07/20/23) Atherosclerotic heart disease of [place] coronary artery without angina pectoris (07/20/23) Unspecified atrial fibrillation (07/20/23) Chronic systolic (congestive) heart failure (07/20/23) Heart failure, unspecified (07/20/23) Acute kidney failure, unspecified (07/20/23) Chronic kidney disease, stage 3b (07/20/23) Chronic kidney disease, unspecified (07/20/23) Urinary tract infection, site not specified (07/20/23) Hypoxemia (07/20/23) Generalized edema (07/20/23) Objective Data Objective Data Vital Signs: Vital Signs Temp Pulse Resp BP Pulse Ox O2 Del Method O2 Flow Rate 37.2 C 80 16 125/78 H 96 CPAP 2 07/25/23 03:00 07/25/23 03:00 07/25/23 03:00 07/25/23 03:00 07/25/23 03:00 07/25/23 03:00 07/24/23 22:42 Oxygen Flow Rate (L/min) 2 Oxygen Delivery Method CPAP Weight: 102.3 kg Body Mass Index (BMI) 38.7 Intake & Output: Intake and Output for Last 24 Hours 07/23/23 07/24/23 07/25/23 23:59 23:59 23:59 Intake Total 1260 / 1260 760 / 1000 480 / 480 Output Total 3950 / 3950 2200 / 2750 1550 / 1550 Balance -2690 / -2690 -1440 / -1750 -1070 / -1070 Lab / Micro Data 07/24/23 05:30 07/25/23 05:20 Labs: Laboratory Results - last 24 hr 07/24/23 08:28: Cortisol 4.90 07/24/23 12:21: POC Glucose 153 H 07/24/23 17:28: POC Glucose 198 H 07/24/23 20:12: POC Glucose 190 H 07/25/23 05:20: PT 21.7 H, INR 1.9, Sodium 139, Potassium 3.7, Chloride 101, Carbon Dioxide 32.0, Anion Gap 6, BUN 44 H, Creatinine 2.09 H, Estim Creat Clear Calc 23.60, Est GFR (MDRD) Af Amer 39 L, Est GFR (MDRD) Non-Af 33 L, BUN/Creatinine Ratio 21.1 H, Glucose 161 H, Calcium 8.8 07/25/23 07:39: POC Glucose 144 H Micro: Microbiology 07/20/23 19:00 Blood Culture (Wb) - Anticubital Left Blood Culture - Preliminary No growth in 48 hours. 07/20/23 18:12 Blood Culture (Wb) - Anticubital Left Blood Culture - Preliminary No growth in 48 hours. 07/20/23 18:35 Urine, Clean Catch Urine Culture - Final ESBL Klebsiella pneumoniae pne
--- NOTE | 2023-07-25 08:50 | PCM.PN.HOSP ---
Subjective Subjective Feels well. Had some back pain today. Objective Data Objective Data Vital Signs: Vital Signs Temp Pulse Resp BP Pulse Ox O2 Del Method O2 Flow Rate 37.2 C 80 16 125/78 H 96 CPAP 2 07/25/23 03:00 07/25/23 03:00 07/25/23 03:00 07/25/23 03:00 07/25/23 03:00 07/25/23 03:00 07/24/23 22:42 Oxygen Flow Rate (L/min) 2 Oxygen Delivery Method CPAP Weight: 102.3 kg Body Mass Index (BMI) 38.7 Intake & Output: Intake and Output for Last 24 Hours 07/23/23 07/24/23 07/25/23 23:59 23:59 23:59 Intake Total 1260 / 1260 760 / 1000 480 / 480 Output Total 3950 / 3950 2200 / 2750 1550 / 1550 Balance -2690 / -2690 -1440 / -1750 -1070 / -1070 Lab / Micro Data 07/24/23 05:30 07/25/23 05:20 Labs: Laboratory Results - last 24 hr 07/24/23 08:28: Cortisol 4.90 07/24/23 12:21: POC Glucose 153 H 07/24/23 17:28: POC Glucose 198 H 07/24/23 20:12: POC Glucose 190 H 07/25/23 05:20: PT 21.7 H, INR 1.9, Sodium 139, Potassium 3.7, Chloride 101, Carbon Dioxide 32.0, Anion Gap 6, BUN 44 H, Creatinine 2.09 H, Estim Creat Clear Calc 23.60, Est GFR (MDRD) Af Amer 39 L, Est GFR (MDRD) Non-Af 33 L, BUN/Creatinine Ratio 21.1 H, Glucose 161 H, Calcium 8.8 07/25/23 07:39: POC Glucose 144 H Micro: Microbiology 07/20/23 19:00 Blood Culture (Wb) - Anticubital Left Blood Culture - Preliminary No growth in 48 hours. 07/20/23 18:12 Blood Culture (Wb) - Anticubital Left Blood Culture - Preliminary No growth in 48 hours. 07/20/23 18:35 Urine, Clean Catch Urine Culture - Final ESBL Klebsiella pneumoniae pne Physical Exam Const alert and no apparent distress Constitutional Narrative: no respiratory distress. no conversational dyspnea. Resp normal respiratory effort and no retractions Extremity Extremity Narrative: improving edema in UE and LE. Assessment & Plan Assessment/Plan (1) Anasarca: (2) Hypoxia: (3) Urinary tract infection: QUALIFIERS: Urinary tract infection type: acute cystitis PLAN: Plan Anasarca Progressively worsening over the last several months. Weight up 10kg from last month, though previously, weight has hovered around 100kg previously. 24 urine protein elevated, therefore, concern for nephrotic syndrome. Will consult nephrology. Continue furosemide 80 BID though the patient is improving, I feel he would benefit from further diuresis. Echocardiogram shows an EF of 55% with right ventricular systolic pressures of 25 mmHg and no evidence of diastolic dysfunction or valvular dysfunction. BNP was within normal limits. TSH is overtly unremarkable. Duplex LE negative. 07/25: creatinine up to 2.09. Will dc IV furosemide. The 40 mg of furosemide twice daily that he was taking at home was ineffective 30 recommend that he increase it to 60 mg twice daily which he option also take an additional dose to put on more than 2 pounds in 1 day or 3 pounds in 1 week. Patient states that he has a new scale so he can keep track of that at home. Acute hypoxia -Resolved at rest-Patient may need ambulatory pulse ox prior to discharge ESBL Klebsiella pneumonia UTI meropenem and consult ID Hypokalemia Resolved however patient on ongoing diuresis so we will repeat lab in a.m. Magnesium levels within normal limits Acute on chronic constipation Patient with large bowel movement on Sunday. Good results with GoLytely x 1 L. -Continue MiraLAX but increase to twice daily and as needed senna Consider discontinuation of iron supplementation if hemoglobin remained stable Right-sided trunk pain No rash consistent with shingles however symptoms are more shingles-like with hypersensitivity continue gabapentin 100 mg 3 times daily and monitor Left great toe infection Continue home doxycycline Chronic conditions: DM-2-Last hemoglobin A1c was from September and was elevated 8.3-Blood sugars this morning look good-Continue home regimen of basal insulin 20 units at at bedtime and 7 units 3 times gguxk-HHU-Nbceuyb/carb controlled diet Carotid stenosis-Continue aspirin-Continue Coumadin-Continue outpatient follow-up with Dr. Be-Status post stent 11/03/2022 CAD/HTN/HPL-History of RCA angioplasty-Continue aspirin-Continue statin-Continue Coreg History of iron deficiency anemia-Hemoglobin is normalized and stable-Continue outpatient supplementation but if remains stable may discontinue as this could be exacerbating his constipation CKD stage IIIb-Baseline serum creatinine appears to fluctuate between 1.5 and 2.2 over the last year-Currently 1.9-Continue diuresis-Avoid nephrotoxins as able-Repeat BMP in a.m. 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 Discharge home.
[2023-07-25 09:00] VITALS: BP 138/72; PULSE 76; RESP 18; TEMP 36.8; O2SAT 95
[2023-07-25 09:22] VITALS: O2SAT 90
[2023-07-25] MEDS: Amiodarone 200 MG Tablet 100 MG PO (09:36)
[2023-07-25] MEDS: Doxycycline 100 MG CAPSULE PO (09:37)
[2023-07-25] MEDS: Aspirin E.C. 81 MG Tablet PO (09:37)
[2023-07-25] MEDS: Meropenem 500 MG in 0.9% Normal Saline (50mL MB+) 50 ML 100 MG IV (09:37)
[2023-07-25] MEDS: Cholecalciferol (VIT D3) 25 MCG TABLET (1,000 UNITS) PO (09:38)
[2023-07-25] MEDS: amLODIPine 10 MG Tablet PO (09:38)
[2023-07-25] MEDS: Pantoprazole Sodium 20 MG Tablet PO (09:47)
--- NOTE | 2023-07-25 10:57 | PCM.DC.SUM ---
Providers Date of Admission: 07/20/23 Primary Care Physician: Dr. Eric Newton MD Consultations 07/20/23 21:57 Consult: Onc/Wound/major sales associate Routine Comment: Reason for Consult:: Toe infection 07/22/23 12:42 Consult: Infectious Disease Routine Consulting Provider: Ambrocio Wong Reason for Consult: ESBL UTI EMERGENT Consult: No Notified: Yes Date Notified: 07/23/23 Time Notified: 06:48 Method of Notification: Answering Service 07/23/23 12:20 Consult: Nephrology Routine Consulting Provider: Rach Plasencia Reason for Consult: proteinuria EMERGENT Consult: No Notified: Yes Date Notified: 07/23/23 Time Notified: 12:20 Method of Notification: Text Reason For Visit: HYPOXIA,CHF,EXAC,UTI Diagnosis Discharge Diagnosis (1) Anasarca: Status: Acute Code(s): R60.1 - Generalized edema (2) Hypoxia: Status: Acute Code(s): R09.02 - Hypoxemia (3) Urinary tract infection: Status: Acute Code(s): N39.0 - Urinary tract infection, site not specified Qualifiers: Urinary tract infection type: acute cystitis Plan Anasarca Progressively worsening over the last several months. Weight up 10kg from last month, though previously, weight has hovered around 100kg previously. 24 urine protein elevated, therefore, concern for nephrotic syndrome. Will consult nephrology. Continue furosemide 80 BID though the patient is improving, I feel he would benefit from further diuresis. Echocardiogram shows an EF of 55% with right ventricular systolic pressures of 25 mmHg and no evidence of diastolic dysfunction or valvular dysfunction. BNP was within normal limits. TSH is overtly unremarkable. Duplex LE negative. 07/25: creatinine up to 2.09. Will dc IV furosemide. The 40 mg of furosemide twice daily that he was taking at home was ineffective 30 recommend that he increase it to 60 mg twice daily which he option also take an additional dose to put on more than 2 pounds in 1 day or 3 pounds in 1 week. Patient states that he has a new scale so he can keep track of that at home. Acute hypoxia -Resolved at rest-Patient may need ambulatory pulse ox prior to discharge ESBL Klebsiella pneumonia UTI meropenem from through the . Will discharge with Q48h dosing of levofloxacin for 2 more doses. Hypokalemia Resolved however patient on ongoing diuresis so we will repeat lab in a.m. Magnesium levels within normal limits Acute on chronic constipation Patient with large bowel movement on Sunday. Good results with GoLytely x 1 L. -Continue MiraLAX but increase to twice daily and as needed senna Consider discontinuation of iron supplementation if hemoglobin remained stable Right-sided trunk pain No rash consistent with shingles however symptoms are more shingles-like with hypersensitivity continue gabapentin 100 mg 3 times daily and monitor Left great toe infection Continue home doxycycline Chronic conditions: DM-2-Last hemoglobin A1c was from September and was elevated 8.3-Blood sugars this morning look good-Continue home regimen of basal insulin 20 units at at bedtime and 7 units 3 times umebb-WXJ-Iuhpjcc/carb controlled diet Carotid stenosis-Continue aspirin-Continue Coumadin-Continue outpatient follow-up with Dr. Be-Status post stent 11/03/2022 CAD/HTN/HPL-History of RCA angioplasty-Continue aspirin-Continue statin-Continue Coreg History of iron deficiency anemia-Hemoglobin is normalized and stable-Continue outpatient supplementation but if remains stable may discontinue as this could be exacerbating his constipation CKD stage IIIb-Baseline serum creatinine appears to fluctuate between 1.5 and 2.2 over the last year-Currently 1.9-Continue diuresis-Avoid nephrotoxins as able-Repeat BMP in a.m. 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 Discharge home. Medications at Discharge Home Medications omeprazole 20 mg capsule,delayed release 20 mg PO DAILY gerd 07/02/18 ferrous sulfate 325 mg (65 mg iron) tablet 325 mg PO BID anemia 02/19/20 cholecalciferol (vitamin D3) 25 mcg (1,000 unit) tablet 25 mcg PO DAILY [facility] 02/27/22 amiodarone 200 mg tablet 100 mg PO DAILY heart 09/15/22 atorvastatin 40 mg tablet 40 mg PO QHS cholesterol 09/15/22 cetirizine 10 mg capsule 10 mg PO HS allergies 09/15/22 aspirin 81 mg tablet,delayed release (Adult Aspirin Regimen) 81 mg PO DAILY heart [facility] 09/28/22 insulin glargine-yfgn 100 unit/mL (3 mL) subcutaneous pen 20 unit subcut QHS slow acting insulin 10/20/22 insulin lispro 100 unit/mL subcutaneous pen (Humalog KwikPen (U-100) Insulin) 7 unit subcut TIDAC blood glucose 10/20/22 levothyroxine 50 mcg tablet 50 mcg PO 0600 thyroid 10/20/22 lorazepam 0.5 mg tablet 0.5 mg PO BID PRN Anxiety 10/20/22 tamsulosin 0.4 mg capsule 0.4 mg PO DAILY@1730 urine flow 10/20/22 warfarin 2 mg tablet (Jantoven) 2 mg PO 1700 blood thinner 10/20/22 albuterol sulfate 90 mcg/actuation aerosol inhaler 2 puff inhalation Q4H PRN shortness of breath or wheezing #8.5 grams 01/11/23 amlodipine 10 mg tablet 10 mg PO DAILY #90 tabs 03/08/23 tizanidine 6 mg capsule 6 mg PO Q8H PRN muscle spasticity 07/05/23 carvedilol 12.5 mg tablet (Coreg) 12.5 mg PO BID #60 tabs 07/06/23 furosemide 40 mg tablet 60 mg (1.5 x 40 mg) PO BIDLX water pill #90 tabs 07/25/23 levofloxacin 500 mg tablet 500 mg PO Q48H #2 tabs 07/25/23 Hospital Course Operations None Procedures 2-D Echocardiogram Summary of Care Provided Minutes Spent on Discharge: 35 Hospital Course: Presents with anasarca. Patient was started on diuresis but was ineffective until he got to 80 mg twice daily of furosemide. Patient started diuresing very well with that. Patient did have 24-hour urine that did come back showing proteinuria and nephrology was consulted. Patient was seen in consultation by Dr. Plasencia. No new changes were needed at this time but patient will require further follow-up with nephrology. Patient's creatinine jumped up today from 1.6-2.09. Patient's IV furosemide will be discontinued. Patient was taking furosemide 40 mg twice daily at home will be increased to 60 mg twice daily. Patient advised to check his weight daily. Patient states that he has new scale. Patient advised to take an additional dose of furosemide if his weight goes up more than 2 pounds in 1 day or 3 pounds in 1 week. Weight / BMI Weight Weight: 102.3 kg Body Mass Index (BMI) 38.7 ABG / Lab / Microbiology Data 07/24/23 05:30 07/25/23 05:20 Laboratory: Laboratory Results - last 24 hr 07/24/23 12:21: POC Glucose 153 H 07/24/23 17:28: POC Glucose 198 H 07/24/23 20:12: POC Glucose 190 H 07/25/23 05:20: PT 21.7 H, INR 1.9, Sodium 139, Potassium 3.7, Chloride 101, Carbon Dioxide 32.0, Anion Gap 6, BUN 44 H, Creatinine 2.09 H, Estim Creat Clear Calc 23.60, Est GFR (MDRD) Af Amer 39 L, Est GFR (MDRD) Non-Af 33 L, BUN/Creatinine Ratio 21.1 H, Glucose 161 H, Calcium 8.8 07/25/23 07:39: POC Glucose 144 H Microbiology: Microbiology 07/20/23 19:00 Blood Culture (Wb) - Anticubital Left Blood Culture - Preliminary No growth in 48 hours. 07/20/23 18:12 Blood Culture (Wb) - Anticubital Left Blood Culture - Preliminary No growth in 48 hours. 07/20/23 18:35 Urine, Clean Catch Urine Culture - Final ESBL Klebsiella pneumoniae pne D/C Instructions Discharge Diet: 2000 mg Sodium Diet and - (1.5 liters (quarts) of fluid per day. ) Meaningful Use Info Meaningful Use Diagnoses (Choose all that apply): None applicable Discharge Plan Admission Admit Date/Time: 07/20/23 20:59 Primary Reason for Your Visit: aishwarya Attending Provider: Omero Monet Primary Care Provider: Eric Newton Consulting Providers: Jhon Zamorano; Martha Plasencia; Ambrocio Wong; Rach Plasencia Instructions Additional Instructions / Restrictions: You had diffuse swelling. You responded very well with IV Lasix. He will continue with Lasix at home but 60 mg twice daily. Do recommend he take an additional dose if her weight increases more than 2 pounds in 1 day or 3 pounds in 1 week. Please follow-up with Dr. Plasencia as outpatient and your primary care provider. You will be on an antibiotic (levofloxacin) to be take every other day for 2 doses. Discharge Orders/Prescriptions Prescriptions: New levofloxacin 500 mg tablet 500 mg PO Q48H Qty: 2 0RF Continued cholecalciferol (vitamin D3) 25 mcg (1,000 unit) tablet 25 mcg PO DAILY aspirin [Adult Aspirin Regimen] 81 mg tablet,delayed release (DR/EC) 81 mg PO DAILY amlodipine 10 mg tablet 10 mg PO DAILY Qty: 90 3RF tizanidine 6 mg capsule 6 mg PO Q8H PRN (Reason: muscle spasticity) omeprazole 20 MG capsule 20 mg PO DAILY atorvastatin 40 mg tablet 40 mg PO QHS amiodarone 200 mg tablet 100 mg PO DAILY cetirizine 10 mg capsule 10 mg PO HS tamsulosin 0.4 mg capsule 0.4 mg PO DAILY@1730 levothyroxine 50 mcg tablet 50 mcg PO 0600 warfarin [Jantoven] 2 mg tablet 2 mg PO 1700 Patient Comments: Pt takes 1-2 mg on different days. Pt unsure of what he takes when. insulin lispro [Humalog KwikPen Insulin] 100 unit/mL insulin pen 7 unit subcut TIDAC insulin glargine-yfgn 100 unit/mL (3 mL) insulin pen 20 unit subcut QHS lorazepam 0.5 mg Tablet 0.5 mg PO BID PRN (Reason: Anxiety) ferrous sulfate 325 mg (65 mg iron) tablet 325 mg PO BID albuterol sulfate 90 mcg/actuation HFA aerosol inhaler 2 puff inhalation Q4H PRN (Reason: shortness of breath or wheezing) Qty: 8.5 6RF Rx Instructions: administer with spacer carvedilol [Coreg] 12.5 mg tablet 12.5 mg PO BID Qty: 60 11RF Rx Instructions: must administer with a meal/food Changed furosemide 40 mg tablet 60 mg PO BIDLX Qty: 90 0RF Rx Instructions: Take twice daily but take an additional dose daily if you put on more than 2 pounds in 1 day or 3 pounds in 1 week. Discontinued doxycycline monohydrate 100 mg capsule 100 mg PO BID prednisone 10 mg tablet 10 mg PO DAILYCM Qty: 90 3RF Referrals / Follow Up: Rach Plasencia DO [Med Staff - Consulting] - Within 1 Month Elderbrock,Eric, MD [Primary Care Provider] - Within 2 Weeks Disposition Disposition (needs filled in before D/C Order can be placed): Home, Self Care Charges/Coding Visit Charges Inpatient E&M: 44674 Disch Hosp >30min
[2023-07-25 11:38] LABS: Bedside Glucose 192 mg/dL (74-106)
[2023-07-25] MEDS: Insulin Lispro 100 UNIT/ML INSULN.PEN SC (11:58)
[2023-07-25 13:00] VITALS: BP 129/72; PULSE 81; RESP 18; TEMP 36.6; O2SAT 96
--- NOTE | 2023-07-25 14:02 | CCN.REFER ---
Patient has order for discharge. RN CM in to discuss needs at discharge. Patient states he has help at home. Patient denies needs at discharge. Patient had no further questions or concerns at this time.
--- NOTE | 2023-07-25 15:07 | PHA.DC_ITS ---
Pharmacy [facility] has performed discharge medication reconciliation and counseling for this patient. Advised patient that INR should probably be checked on Sunday due to interaction with levofloxacin. Patient's said they will call Dr. Newton's office to make an appointment. 1. LEVOFLOXACIN 500MG PO Q48H X 2 DOSES The patient's discharge medication list was reviewed for discrepancies and discrepancies were resolved. The patient was counseled on the following discharge medications and changes in medications for homegoing were reviewed. The Reason for Use, instructions for use, and potential side effects were reviewed for all new medications. The patient's questions regarding all of their medications were answered. The patient was able to verbally demonstrate an understanding of their discharge medications. Medications at Discharge Home Medications omeprazole 20 mg capsule,delayed release 20 mg PO DAILY gerd 07/02/18 ferrous sulfate 325 mg (65 mg iron) tablet 325 mg PO BID anemia 02/19/20 cholecalciferol (vitamin D3) 25 mcg (1,000 unit) tablet 25 mcg PO DAILY [facility] 02/27/22 amiodarone 200 mg tablet 100 mg PO DAILY heart 09/15/22 atorvastatin 40 mg tablet 40 mg PO QHS cholesterol 09/15/22 cetirizine 10 mg capsule 10 mg PO HS allergies 09/15/22 aspirin 81 mg tablet,delayed release (Adult Aspirin Regimen) 81 mg PO DAILY [facility] 09/28/22 insulin glargine-yfgn 100 unit/mL (3 mL) subcutaneous pen 20 unit subcut QHS slow acting insulin 10/20/22 insulin lispro 100 unit/mL subcutaneous pen (Humalog KwikPen (U-100) Insulin) 7 unit subcut TIDAC blood glucose 10/20/22 levothyroxine 50 mcg tablet 50 mcg PO 0600 thyroid 10/20/22 lorazepam 0.5 mg tablet 0.5 mg PO BID PRN Anxiety 10/20/22 tamsulosin 0.4 mg capsule 0.4 mg PO DAILY@1730 urine flow 10/20/22 warfarin 2 mg tablet (Jantoven) 2 mg PO 1700 blood thinner 10/20/22 albuterol sulfate 90 mcg/actuation aerosol inhaler 2 puff inhalation Q4H PRN shortness of breath or wheezing #8.5 grams 01/11/23 amlodipine 10 mg tablet 10 mg PO DAILY #90 tabs 03/08/23 tizanidine 6 mg capsule 6 mg PO Q8H PRN muscle spasticity 07/05/23 carvedilol 12.5 mg tablet (Coreg) 12.5 mg PO BID #60 tabs 07/06/23 furosemide 40 mg tablet 60 mg (1.5 x 40 mg) PO BIDLX water pill #90 tabs 07/25/23 levofloxacin 500 mg tablet 500 mg PO Q48H #2 tabs 07/25/23
[2023-07-27 18:07] LABS: Cortisol, Free 24Ur 5 ug/24 hr (5-64); Cortisol, Urinary Free 2 ug/L (Undefined)
== END 2023-07-25 15:40 | disposition home or self-care (01) | DRG 291 ==
LOC: ED 21:16 → PCU 07-21 06:52
PROVIDERS: Internal Medicine; Nurse Practitioner; Admitting Provider Family Medicine; Emergency Provider Student in an Organized Health Care Education/Training Program; PCP Family Medicine
DX: I13.0 Hypertensive heart and chronic kidney disease with heart failure and stage 1 through stage 4 chronic kidney disease, or unspecified chronic kidney disease (principal); I50.23 Acute on chronic systolic (congestive) heart failure; I69.354 Hemiplegia and hemiparesis following cerebral infarction affecting left non-dominant side; N04.9 Nephrotic syndrome with unspecified morphologic changes; N13.8 Other obstructive and reflux uropathy; N30.00 Acute cystitis without hematuria; Z16.12 Extended spectrum beta lactamase (ESBL) resistance; D72.19 Other eosinophilia; E11.22 Type 2 diabetes mellitus with diabetic chronic kidney disease; E66.01 Morbid (severe) obesity due to excess calories; N18.32 Chronic kidney disease, stage 3b; I48.0 Paroxysmal atrial fibrillation; Z79.4 Long term (current) use of insulin; E11.65 Type 2 diabetes mellitus with hyperglycemia; E03.9 Hypothyroidism, unspecified; J45.909 Unspecified asthma, uncomplicated; D50.9 Iron deficiency anemia, unspecified; I65.21 Occlusion and stenosis of right carotid artery; K21.9 Gastro-esophageal reflux disease without esophagitis; I25.10 Atherosclerotic heart disease of native coronary artery without angina pectoris; E87.6 Hypokalemia; E78.00 Pure hypercholesterolemia, unspecified; G47.33 Obstructive sleep apnea (adult) (pediatric); K59.09 Other constipation; K57.30 Diverticulosis of large intestine without perforation or abscess without bleeding; S90.422A Blister (nonthermal), left great toe, initial encounter; B96.1 Klebsiella pneumoniae [K. pneumoniae] as the cause of diseases classified elsewhere; X58.XXXA Exposure to other specified factors, initial encounter; L08.9 Local infection of the skin and subcutaneous tissue, unspecified; N40.1 Benign prostatic hyperplasia with lower urinary tract symptoms; R09.02 Hypoxemia; R20.8 Other disturbances of skin sensation; Z68.38 Body mass index [BMI] 38.0-38.9, adult; Z95.5 Presence of coronary angioplasty implant and graft; Z79.01 Long term (current) use of anticoagulants; Z79.52 Long term (current) use of systemic steroids; Z79.82 Long term (current) use of aspirin; Z79.899 Other long term (current) drug therapy; Z66 Do not resuscitate
CPT/HCPCS: 36415; 71046; 74176; 80048; 80053; 80061; 81001; 82530; 82533; 82962; 83605; 83735; 83880; 84100; 84156; 84439; 84443; 84484; 85025; 85610; 85730; 87040; 87077; 87086; 87088; 87186; 93005; 93306; 93970; 94668; 97110; 97116; 97162; 97166; 97530; 97535; 97802; 97803; 99285; J2185; Q9957; A4216; C8929; J1940; J2405

== ENCOUNTER 2023-08-01 13:30 | Outpatient (RCR) | payer SELFPAY, OTHER ==
--- NOTE | 2023-06-29 09:07 | HP.PTEVAL_ITS ---
Patient's Visit Information Visit Information Visit Information: JOSE A STEIN is a 82 year old M referred to Physical Therapy by Dr. Tanmay Smith MD with a diagnosis of L1 compression fracture. Date of Evaluation: 06/29/23 Physical Therapist: Uday Frias, PT, ATC Visit Plan Frequency: 2-3x /Week Duration: 4-6 Weeks Plan: Postural edu, B LE strengthening, core stab ex's, nustep, and HEP Subjective Subjective: Pt reports he has had LBP for several years. Pt notes he has fallen in the past on a couple occasions and notes this may be the cause to his LBP. Pt reports he has had an MRI and x-rays which showed he had a compression fracture of the L1 vertebra. Pt notes the fracture is healed now, and he has beren sent here to strengthen his spine and to focus on his posture. Pt denies tingling or numbness in LE's at this time. Pt reports he has to transfer in and out of bed very slowly in order to avoid LBP. Pt reports no sleep difficulty at this time secondary to pain. Pt reports he has difficulty with prolonged standing and ambulating at this time secondary to pain and fatigue. 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 LBP is 2/10 while sitting here at rest, 10/10 pain at rest (when he has been standing for a while and attempts to sit down) Pain LBP: Pain Intensity (Out of 10): 2 Pain Intensity Range: 10 Objective Objective: Neuro: B LE sensation is WNL to light touch. MMT: B LE's are grossly 4/5 throughout when compared bilaterally ROM: B LE's are WFL when compared bilaterally. L/S is limited in all planes this date. Gait: Pt is able to ambulate 120 feet with walker until feeling fatigued. Transfers: Pt experiences pain with sit to stand transfers. Must perform them very slowly. Balance/Special Test Scores Oswestry Low Back Score: 26 Goals Goal 1:: Decrease LBP x 50% to aid with sit to stand transfers Goal Time Frame: 4-6 Weeks Goal 2:: Increase LE strength x 1 grade to aid with ambulation Goal Time Frame: 4-6 Weeks Goal 3:: Pt will be able to ambulate greater than 300 feet to aid with community ambulation Goal Time Frame: 4-6 Weeks Goal 4:: I with HEP Goal Time Frame: 4-6 Weeks Rehabilitation Potential Physical Therapy Diagnosis: Pt has LBP, LE weakness, and limitations with ambulation secondary to L1 compression fracture Rehabilitation Potential: Good Anticipated Interventions Patient/Client Instruction: Educate patient on: Condition and Plan of Care For the Purpose of:: To improve self management Therapeutic Exercise to Include: Strength training and Dynamic Lumbar Stab ilization Cryotherapy (ice pack, ice massage): Yes For the Purpose of:: To decrease pain Text: Thank you for the opportunity to evaluate your patient. For Medicare and Medicare HMO plans, please review the plan of care and approve it. It will need to be FAXED BACK to us at [phone] for Medicare purposes. For Medicare only, by signing this I certify the plan of care. Please let me know if there are questions or concerns regarding this plan of care. Physician Signature: Date:
--- NOTE | 2023-11-15 15:22 | HP.PT.NRP ---
Patient Information Patient Information: JOSE A STEIN was seen in my office for initial evaluation on 06/29/23. The following Plan of Care was established for this patient: POC Established Initial Frequency: 2-3x /Week Initial Duration: 4-6 Weeks Anticipated Interventions Patient/Client Instruction: Educate patient on: Condition and Plan of Care For the Purpose of:: To improve self management Therapeutic Exercise to Include: Strength training and Dynamic Lumbar Stabilization Cryotherapy (ice pack, ice massage): Yes For the Purpose of:: To decrease pain Last Seen Last Seen: This patient was last seen in our office . Pertinent comments regarding their Physical therapy will appear below: Pt was treated for 8 PT visits for low back pain through the date of 08/01/23. Pt has not returned through todays date and is discontinued at this time. At this point I will be discontinuing this patient from physical therapy. I would be happy to see this patient again in the future if found appropriate by the physician. Thank you! Uday Frias, PT, ATC Balance/Gait/Functional tests Balance/Special Test Scores Oswestry Low Back Score: 26
== END 2023-08-01 19:00 | disposition home or self-care (01) ==
LOC: PT 13:30
PROVIDERS: PCP Family Medicine; Referring Provider Orthopaedic Surgery Orthopaedic Surgery of the Spine; Visit Provider Orthopaedic Surgery Orthopaedic Surgery of the Spine
DX: M41.126 Adolescent idiopathic scoliosis, lumbar region (principal); M48.062 Spinal stenosis, lumbar region with neurogenic claudication; S32.010S Wedge compression fracture of first lumbar vertebra, sequela
CPT/HCPCS: 97110; 97161

== ENCOUNTER 2023-08-14 08:40 | Emergency (ER) | payer OTHER, SELFPAY ==
[2023-08-14 08:43] VITALS: BP 109/59; PULSE 68; RESP 26; TEMP 36.4; O2SAT 100
--- NOTE | 2023-08-14 09:13 | EKG12_ITS ---
Test Reason : SOB Blood Pressure : / mmHG Vent. Rate : 063 BPM Atrial Rate : 063 BPM P-R Int : 184 ms QRS Dur : 064 ms QT Int : 438 ms P-R-T Axes : 034 006 018 degrees QTc Int : 448 ms Critical Test Result: STEMI Normal sinus rhythm Low voltage QRS ACUTE IA / STEMI Abnormal ECG Confirmed by CLOTILDE BHANDARI, PHUONG ([id number]), food expeditor KAIDEN PASTOR ([id number]) on 08/15/2023 9:08:47 AM Referred By: Confirmed By:PHUONG MABRY MD
--- NOTE | 2023-08-14 09:15 | EDS_ITS ---
HPI History of Present Illness Chief Complaint: Shortness of Breath Informant: patient and family Onset/Context/Timing Onset: Days Context: gradual Timing: Continuous Quality: Positive for Wheezing Current Severity: Moderate Maximum Severity: Moderate Worsened by: Exertion and Coughing Relieved by: Oxygen Associated Symptoms cough; Negative for fever Chest Pain: Positive for None Narrative Narrative: 82-year-old male significant past medical history of CHF, CAD, A-fib, cardiomyopathy on Coumadin and home O2 of 2 to 4 L. Also chronic kidney disease and diabetes. Presents with increasing shortness of breath and wheezing over the last several days. Nonproductive cough. No fever. No chest pain. Says his leg swelling is chronic actually no worse than normal. They have recently increased his Lasix over the last week. He did have a recent hospitalization and was discharged at the end of July. PE Risk Factors: Negative for Cancer, OCP + Smoking + > 35, Prior DVT or PE, Recent immobilization, Recent surgery or Recent travel Prior similar symptoms: Yes Recent Illness/Hospitalization: Yes PFSH PFS Medical History Atherosclerotic heart disease of [place] coronary artery without angina pectoris Atrial fibrillation Atrial fibrillation and flutter Back pain Cardiology follow-up encounter Cardiomyopathy CHF (congestive heart failure) Chronic kidney disease CKD (chronic kidney disease), stage III Coronary artery disease CPAP (continuous positive airway pressure) dependence Diabetes mellitus Dietary restriction Easy bruising Encounter for routine circumcision Essential hypertension GERD (gastroesophageal reflux disease) High cholesterol History of echocardiogram History of edema History of stress test HLD (hyperlipidemia) Hyperglycemia Insulin dependent diabetes mellitus Leg 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 Long-term use of high-risk medication Low iron Lung nodule Morbid obesity Non-smoker On home oxygen therapy KIM (obstructive sleep apnea) Paroxysmal A-fib Presence of stent in coronary artery (~07/04/18) Pressure ulcer Prostate disease Renal insufficiency Restrictive airway disease Thyroid disease TIA (transient ischemic attack) Walker as ambulation aid Wears glasses Home Medications omeprazole 20 mg capsule,delayed release 20 mg PO DAILY gerd 07/02/18 [History Last Taken 11/03/22 03:00] ferrous sulfate 325 mg (65 mg iron) tablet 325 mg PO BID anemia 02/19/20 [History Last Taken 09/06/22] cholecalciferol (vitamin D3) 25 mcg (1,000 unit) tablet 25 mcg PO DAILY [facility] 02/27/22 [History Last Taken 09/05/22] amiodarone 200 mg tablet 100 mg PO DAILY heart 09/15/22 [History Last Taken 11/03/22 03:00] atorvastatin 40 mg tablet 40 mg PO QHS cholesterol 09/15/22 [History Last Taken Unknown] cetirizine 10 mg capsule 10 mg PO HS allergies 09/15/22 [History Last Taken Unknown] aspirin 81 mg tablet,delayed release (Adult Aspirin Regimen) 81 mg PO DAILY heart health 09/28/22 [History Last Taken Unknown] insulin glargine-yfgn 100 unit/mL (3 mL) subcutaneous pen 20 unit subcut QHS slow acting insulin 10/20/22 [History Last Taken Unknown] insulin lispro 100 unit/mL subcutaneous pen (Humalog KwikPen (U-100) Insulin) 7 unit subcut TIDAC blood glucose 10/20/22 [History Last Taken Unknown] levothyroxine 50 mcg tablet 50 mcg PO 0600 thyroid 10/20/22 [History Last Taken 11/03/22 03:00] lorazepam 0.5 mg tablet 0.5 mg PO BID PRN Anxiety 10/20/22 [History Last Taken Unknown] tamsulosin 0.4 mg capsule 0.4 mg PO DAILY@1730 urine flow 10/20/22 [History Last Taken Unknown] warfarin 2 mg tablet (Augven) 2 mg PO 1700 blood thinner 10/20/22 [History Last Taken 10/30/22] albuterol sulfate 90 mcg/actuation aerosol inhaler 2 puff inhalation Q4H PRN shortness of breath or wheezing #8.5 grams 01/11/23 [Rx Last Taken Unknown] amlodipine 10 mg tablet 10 mg PO DAILY #90 tabs 03/08/23 [Rx Last Taken Unknown] tizanidine 6 mg capsule 6 mg PO Q8H PRN muscle spasticity 07/05/23 [History Last Taken Unknown] carvedilol 12.5 mg tablet (Coreg) 12.5 mg PO BID #60 tabs 07/06/23 [Rx Last Taken Unknown] furosemide 40 mg tablet 60 mg (1.5 x 40 mg) PO BIDLX water pill #90 tabs 07/25/23 [Rx Last Taken Unknown] levofloxacin 500 mg tablet 500 mg PO Q48H #2 tabs 07/25/23 [Rx Last Taken Unknown] albuterol sulfate 2.5 mg/3 mL (0.083 %) solution for nebulization 2.5 mg (3 mL) inhalation Q4H PRN #25 vials 08/14/23 [Rx Last Taken Unknown] hydrocodone-homatropine 5 mg-1.5 mg/5 mL (5 mL) oral syrup (Hycodan) 5 ml PO Q6H PRN cough 7 days #80 mL 08/14/23 [Rx Last Taken Unknown] Allergy/AdvReac Type Severity Reaction Status Date / Time No Known Allergies Allergy Verified 08/14/23 08:52 Family History Mother Hypertension Heart disease Father No problems noted. Surgical History History of cardiac catheterization History of hernia repair History of hip replacement History of partial knee replacement Presence of coronary angioplasty implant and graft (~07/04/18) Status post carotid surgery Social History household members: spouse Smoking Status: Never smoker alcohol intake: never substance use type: does not use ROS ROS ED ROS Narrative Shortness of breath. Wheezing. Review of Systems ROS Unobtainable: Denies due to encephalopathy Constitutional Constitutional ED: Denies chills or fever(s) Eyes Eyes: Denies blurry vision ENT ENT ED: Denies ear pain Cardiovascular Cardiovascular: Reports orthopnea; Denies chest pain or palpitations Respiratory/Chest Respiratory/Chest: Reports cough, dyspnea, dyspnea on exertion and orthopnea; Denies sputum Gastrointestinal Gastrointestinal: Denies abdominal pain Genitourinary Genitourinary ED: Denies dysuria or hematuria Musculoskeletal Musculoskeletal: Denies arthralgias Integumentary Denies abscess Neurologic Neurologic: Denies headache(s) Psychiatric Psychiatric: Denies anxiety Endocrine Endocrinology: Denies cold intolerance Hematologic/Lymphatic Hematologic/Lymphatic: Reports easy bleeding and easy bruising; Denies lymphadenopathy Allergic/Immunologic Allergic/Immunologic ED: Denies mouth swelling, tongue swelling or urticaria EXAM Physical Exam Narrative Exam Narrative: 82-year-old male vital signs are stable on 3 L is 100%. He is afebrile. He does not look septic or toxic. 2 family members are present in the room. H EENT exam unremarkable. Neck nontender. Lungs scattered expiratory wheezes. I do not appreciate any rales or rhonchi. Somewhat diminished breath sounds bilaterally. Heart rate about 70. No obvious murmur. Chest wall nontender. Abdomen soft nondistended. Normal bowel sounds no peritoneal signs. Moving all 4 extremities. 1+ pitting edema both lower extremities and legs are wrapped. Neurologically is awake and alert. Answering questions. Following commands. No focal motor deficits. Const Vital Signs: 08/14/23 08:43 08/14/23 08:58 08/14/23 09:28 Temperature 97.6 F L Temperature Source Temporal Pulse Rate 68 Respiratory Rate 26 H Respiratory Effort Short of Breath Labored Respiratory Depth Normal Respiratory Pattern Normal Blood Pressure 109/59 L Blood Pressure Mean 75 Pulse Ox 100 98 Oxygen Delivery Method Nasal Cannula Nasal Cannula Oxygen Flow Rate (L/min) 3 3 08/14/23 09:26 Temperature Temperature Source Pulse Rate 64 Respiratory Rate 22 H Respiratory Effort Respiratory Depth Respiratory Pattern Tachypnea Blood Pressure Blood Pressure Mean Pulse Ox Oxygen Delivery Method Oxygen Flow Rate (L/min) Positive well nourished and well developed; Negative for cachectic, contractures or unkempt General Appearance ED: well developed; Negative for unkempt, cachectic, contractures, NAD or pallor Nutritional Appearance: Negative for cachectic HEENT atraumatic; Negative for trauma or tenderness Eyes EOMs intact bilaterally General Eye ED: Negative for pale conjunctiva Neck no lymphadenopathy, supple, no meningeal signs and no JVD General: Negative for tenderness Lymph Lymphatic: Negative for other Chest Wall Chest: Negative for other Resp normal respiratory effort and No clear to auscultation bilaterally Auscultation: wheezes Cardio regular rate, regular rhythm, S1 normal heart sound, S2 normal heart sound and no murmurs GI non-tender, non-distended and no masses Inspection: Negative for other Auscultation: normoactive bowel sounds Palpation: soft; Negative for tender or guarding Back/Spine no CVA tenderness and normal to inspection General Back: Negative for CVA tenderness or tenderness Extremity Negative for normal to inspection Extremity Narrative: Bilateral 1+ pitting edema. General Extremety ED: Yes edema; Negative for tenderness General Extremity: edema Neuro oriented x3 and CN's II-XII intact bilaterally Sensorium / Orientation: alert, oriented to person, oriented to place and oriented to time; Negative for orientation impaired, confused, lethargic or stuporous Motor Exam: strength 5/5 throughout Psych mental status grossly normal Appearance: Negative for unkempt Attitude: No agitated Mood & Affect: Negative for depressed Thought Process: normal thought process Skin no wounds and skin turgor normal General Skin Exam: Negative for jaundice or pallor Lesions: no lesions Rashes: no rashes Trauma: Negative for abrasion MDM MDM MDM Narrative Medical decision making narrative: 82-year-old male extensive cardiac history on chronic O2 with increasing shortness of breath and cough. This may be secondary to CHF versus a respiratory infection versus other. No history of COPD and no history of smoking. He is already on Coumadin I do not think the blood clot. Cardiac workup along with a viral panel. He also recent UTI they wanted to recheck his urine. Doing well at 1120 on repeat exam. Long discussion both he and his family members. He is COVID-positive. He is chronically on O2 on his normal oxygen is 98 to 100%. They are comfortable with him being discharged home. There is no significant signs that this is from CHF and there is no signs of pleural effusion on his chest x-ray. There is no signs of pneumonia. He has had symptoms now for minimum of 5 days. We talked about COVID treatments and were not can put him on any of his medications at this time. He will continue his current outpatient medications. And follow-up as needed. They know to return if he is feeling worse. Family did request albuterol for nebulizer which she will get for home. And also additional cough syrup which she has been on. History & Record Review Discussion w/independent historian: Patient and Family Additional record(s) reviewed:: Prior inpatient record, Prior outpatient record, Prior ED visit and Prior labs Lab Data Attestation: I reviewed the patient's lab results. Lab results narrative: CBC shows a white count 9.3. H&H 11.8 and 37.9. Platelets 189. Consistent with prior labs. PT/INR is 25 and 2.3 patient is on Coumadin. Electrolytes show a gap of 4. BUN 32 creatinine 2. History of renal insufficiency. Glucose 163. Troponin is normal at 17. COVID-positive. RSV and flu negative. Urinalysis is is negative. No white or red cells. No nitrites. No bacteria. Labs: Laboratory Results - last 24 hr 08/14/23 08/14/23 09:05 10:24 WBC 9.3 RBC 4.11 L Hgb 11.8 L Hct 37.9 L MCV 92.2 MCH 28.7 MCHC 31.1 L RDW Std Deviation 52.6 H RDW Coeff of [place] 15.6 H Plt Count 189 MPV 9.4 Immature Gran % (Auto) 1.000 H Neut % (Auto) 77.7 H Lymph % (Auto) 12.9 L [place] % (Auto) 7.1 Eos % (Auto) 0.8 Baso % (Auto) 0.5 Absolute Neuts (auto) 7.2 Absolute Lymphs (auto) 1.20 Nucleated RBC % 0 PT 25.6 H INR 2.3 APTT 39.1 H Sodium 142 Potassium 3.6 Chloride 102 Carbon Dioxide 36.0 H Anion Gap 4 L BUN 32 H Creatinine 2.01 H Est GFR (MDRD) Af Amer 41 L Est GFR (MDRD) Non-Af 34 L BUN/Creatinine Ratio 15.9 Glucose 163 H Calcium 9.0 Troponin I High Sens 17 Urine Color Yellow Urine Clarity Clear Urine pH 6.5 Ur Specific [place] 1.010 Urine Protein 15 H Urine Glucose (UA) 100 H Urine Ketones Negative Urine Occult Blood Negative Urine Nitrite Negative Urine Bilirubin Negative Urine Urobilinogen Normal Ur Leukocyte Esterase Negative Urine RBC 0 SEEN Urine WBC 0 SEEN Ur Squamous Epith Cells 0 SEEN Urine Bacteria 0 SEEN Urine Mucus 0 SEEN Radiography Chest X-Ray - ED: 1 View, Read by ED Physician, Heart, Lungs, Mediastinum, Bony Structures, No Acute Disease and Chronic Changes Diagnostic Testing: Clinical Impression(s) from Imaging Studies Chest X-Ray 08/14/23 09:53 IMPRESSION: Mild right subpulmonic pleural effusion with compressive atelectasis of right lung base. This is a new finding when compared to 07/20/2023. Electronically Signed: Rafat Puildo MD at 10:29 EST , Chest x-ray, portable, single view shows no acute abnormality. Chronically elevated right hemidiaphragm. Interpreted by myself. No significant CHF. No significant pleural effusions. Rhythm Strip Rhythm Strip: Sinus Rhythm Rate: 6 Ectopy: None EKG Initial EKG: Attestation: I personally reviewed and interpreted this EKG as follows: Interpretation: Sinus Rhythm and No Acute Injury Pattern Comments: Sinus rhythm rate of 63 no acute signs of MO or ischemia. There is some artifact in leads aVF and V3. Otherwise no significant change from prior EKG from July Prior EKG tracings: available for review Prior: Unchanged Discharge Plan Triage Chief Complaint: Shortness of Breath ED Provider: Bienvenido Bhagat Dx/Rx/DC Orders Clinical Impression: Acute dyspnea, Chronic anticoagulation, COVID, History of chronic CHF, History of atrial fibrillation, History of diabetes mellitus Instructions: Human Coronaviruses Prescriptions: New hydrocodone-homatropine [Hycodan] 5-1.5 mg/5 mL (5 mL) syrup 5 ml PO Q6H PRN (Reason: cough) 7 Days Qty: 80 0RF albuterol sulfate 2.5 mg /3 mL (0.083 %) solution for nebulization 2.5 mg inhalation Q4H PRN Qty: 25 0RF Rx Instructions: Use q4 hours and PRN for wheezing No Action cholecalciferol (vitamin D3) 25 mcg (1,000 unit) tablet 25 mcg PO DAILY aspirin [Adult Aspirin Regimen] 81 mg tablet,delayed release (DR/EC) 81 mg PO DAILY amlodipine 10 mg tablet 10 mg PO DAILY Qty: 90 3RF tizanidine 6 mg capsule 6 mg PO Q8H PRN (Reason: muscle spasticity) omeprazole 20 MG capsule 20 mg PO DAILY atorvastatin 40 mg tablet 40 mg PO QHS amiodarone 200 mg tablet 100 mg PO DAILY cetirizine 10 mg capsule 10 mg PO HS tamsulosin 0.4 mg capsule 0.4 mg PO DAILY@1730 levothyroxine 50 mcg tablet 50 mcg PO 0600 warfarin [Jantoven] 2 mg tablet 2 mg PO 1700 Patient Comments: Pt takes 1-2 mg on different days. Pt unsure of what he takes when. insulin lispro [Humalog KwikPen Insulin] 100 unit/mL insulin pen 7 unit subcut TIDAC insulin glargine-yfgn 100 unit/mL (3 mL) insulin pen 20 unit subcut QHS lorazepam 0.5 mg Tablet 0.5 mg PO BID PRN (Reason: Anxiety) levofloxacin 500 mg tablet 500 mg PO Q48H Qty: 2 0RF furosemide 40 mg tablet 60 mg PO BIDLX Qty: 90 0RF Rx Instructions: Take twice daily but take an additional dose daily if you put on more than 2 pounds in 1 day or 3 pounds in 1 week. ferrous sulfate 325 mg (65 mg iron) tablet 325 mg PO BID albuterol sulfate 90 mcg/actuation HFA aerosol inhaler 2 puff inhalation Q4H PRN (Reason: shortness of breath or wheezing) Qty: 8.5 6RF Rx Instructions: administer with spacer carvedilol [Coreg] 12.5 mg tablet 12.5 mg PO BID Qty: 60 11RF Rx Instructions: must administer with a meal/food Primary Care Provider: Eric Newton Referrals: Eric Newton MD [Primary Care Provider] - 1 Week Activity Restrictions/Additional Instructions: Aerosol treatments as needed. Use his oxygen. Follow up with his doctor to ensure he is improving. Continue his current medications. Watch his blood sugars closely. Disposition Disposition: Home, Self Care
[2023-08-14] MEDS: Ipratropium/Albuterol Sulfate 3 ML AMPUL.NEB INHALATION (09:25)
[2023-08-14] MEDS: Albuterol 2.5 MG/3 ML VIAL.NEB. INHALATION (09:25)
[2023-08-14 09:26] VITALS: PULSE 64; RESP 22
[2023-08-14 09:28] VITALS: O2SAT 98
[2023-08-14 09:28] LABS: Absolute Neutrophil Count 7.2 X10^3/uL (2.0-7.7); Basophil# 0.05 X10^3/uL; Basophil% 0.5 % (0-1); Eosinophil# 0.07 X10^3/uL; Eosinophils% 0.8 % (0-5); Hematocrit 37.9 % (40-54); Hemoglobin 11.8 g/dL (13.0-16.5); Lymphocyte % 12.9 % (19-41); Mean Corp Hgb Conc 31.1 g/dL (32-36); Mean Corpuscular Hgb 28.7 pg (27.0-32.0); Mean Corpuscular Volume 92.2 fL (80-94); Mean Platelet Vol. 9.4 fl (6.2-12.0); Monocyte# 0.66 X10^3/uL; Monocyte% 7.1 % (0-10); NRBC Flagged by Analyzer 0 % (0-5); Neutrophil % 77.7 % (47-70); Platelet Count 189 K/mm3 (150-450); RBC Distribution Width CV 15.6 % (11.6-14.6); RBC Distribution Width SD 52.6 fl (35.1-43.9); Red Blood Count 4.11 M/mm3 (4.6-6.2); White Blood Count 9.3 K/mm3 (4.4-11.0)
[2023-08-14 09:35] LABS: International Normalized Ratio 2.3; Prothrombin Time (Protime)PT. 25.6 SECONDS (11.7-14.9)
[2023-08-14 09:36] LABS: Partial Thromboplast Time 39.1 Seconds (24.1-36.2)
[2023-08-14 09:45] LABS: Anion Gap 4 (5-15); BUN 32 mg/dL (7-18); BUN/Creat Ratio 15.9 RATIO (10-20); Chloride 102 mmol/L (98-107); Creatinine, Serum 2.01 mg/dL (0.70-1.30); EST Glomerular Filtration Rate 34 mL/min (>60); Est Glom Filt Rate - Afr Amer 41 mL/min (>60); Glucose 163 mg/dL (74-106); Potassium 3.6 mmol/L (3.5-5.1); Sodium Level 142 mmol/L (136-145); Troponin-I HS 17 pg/mL (3.0-78.0)
--- NOTE | 2023-08-14 09:53 | RAD_ITS ---
EXAM: XR CHEST, 1 VIEW CLINICAL INDICATION: chest pain TECHNIQUE: Frontal view of the chest. COMPARISON: 07/20/2023. FINDINGS: LUNGS AND PLEURAL SPACES: Mild pulmonary hypoinflation and moderate elevation of right hemidiaphragm. No suspicious infiltrates. Right subpulmonic pleural effusion with mild compressive atelectasis of the right lung base. This is a new finding. No pneumothorax. HEART: Cardiomegaly is unchanged. MEDIASTINUM: Central airways and mediastinal contour are unremarkable. BONES/JOINTS: Unremarkable. No acute fracture. SOFT TISSUES: Unremarkable. RAD/Chest 1 View (Portable) IMPRESSION: Mild right subpulmonic pleural effusion with compressive atelectasis of right lung base. This is a new finding when compared to 07/20/2023. Electronically Signed: Rafat Pulido MD at 10:29 EST ,
[2023-08-14 10:30] LABS: Bacteria 0 SEEN /hpf (None Seen); Mucous, Urine 0 SEEN /hpf (<or=2+); Red Blood Cells-Urine 0 SEEN /hpf (0-5); Squamous Epithelial Cells - UA 0 SEEN /hpf (0-5); White Blood Cells 0 SEEN /hpf (0-5)
[2023-08-14 10:32] LABS: Color, Urine Yellow (Yellow); Glucose, Dipstick 100 mg/dl (Normal); Ketone-Dipstick Negative (Negative); Leukocyte Esterase-Dipstick Negative /ul (Negative); Nitrite-Dipstick Negative (Negative); Occult Blood-Urine Negative /ul (Negative); Protein-Dipstick 15 mg/dl (Negative); Urine Bilirubin Dipstick Negative (Negative); Urine Clarity Clear (Clear); Urine Urobilinogen Normal (Normal); Urine pH 6.5 (5.0 - 8.0)
--- OUTSIDE RECORDS SUMMARY | 2023-08-14 10:44 | XMS RPT_ITS | CCD ---
Author Name Unknown Address [address] [place] [address] Organization [facility] Care Team Providers Care 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 Name Role Phone Saumya Farias MD Primary Care Provider AMAN BHANDARI, DR KERNS Attending Unavailab tejas FARIAS MD, DR KERNS Primary Care Unavailab tejas Farias MD, Saumya Pelayo Primary Care Provider [phone] SAUMYA FARIAS Referring Unavailable SAUMYA FARIAS Primary Care Unavailable AUNDREA FLORES Attending Unavailable SAUMYA FARIAS Primary Care Unavailable SAUMYA FARIAS Attending Unavailable SAUMYA FARIAS Primary Care Unavailable SAUMYA FARIAS Primary Care Unavailable SAUMYA FARIAS Primary Care Unavailable SAUMYA FARIAS Referring Unavailable SAUMYA FARIAS Primary Care Unavailable SAUMYA FARIAS Primary Care Unavailable SAUMYA FARIAS Primary Care Unavailable SAUMYA FARIAS Primary Care Unavailable SAUMYA FARIAS Primary Care Unavailable SAUMYA FARIAS Primary Care Unavailable SAUMYA FARIAS Primary Care Unavailable ATHY, ALESHA R Referring Unavailable SAUMYA FARIAS Primary Care Unavailable SAUMYA FARIAS Primary Care Unavailable SAUMYA FARIAS Primary Care Unavailable SAUMYA FARIAS Attending Unavailable SAUMYA FARIAS Primary Care Unavailable SAUMYA FARIAS Primary Care Unavailable SAUMYA FARIAS Primary Care Unavailable SAUMYA FARIAS Referring Unavailable SAUMYA FARIAS Primary Care Unavailable SAUMYA FARIAS Attending Unavailable SAUMYA FARIAS Primary Care Unavailable SAUMYA FARIAS Primary Care Unavailable SAUMYA FARIAS Primary Care Unavailable SAUMYA FARIAS Attending Unavailable SAUMYA FARIAS Primary Care Unavailable SAUMYA FARIAS Primary Care Unavailable ELDERSAUMYA MEJIA Referring Unavailable SIENASAUMYA MEJIA Primary Care Unavailable SIENASAUMYA MEJIA Primary Care Unavailable SIENASAUMYA MEJIA Primary Care Unavailable SIENASAUMYA MEJIA Referring Unavailable SIENASAUMYA MEJIA Primary Care Unavailable SIENASAUMYA MEJIA Referring Unavailable SIENASAUMYA MEJIA Primary Care Unavailable SIENASAUMYA MEJIA Primary Care Unavailable SIENASAUMYA MEJIA Primary Care Unavailable SAUMYA FARIAS Primary Care Unavailable SAUMYA FARIAS Attending Unavailable Medications Current Medications Medication Drug Class(es) Dates Sig (Normalized) Sig (Original) bifidobacterium animalis [id number] unt / bifidobacterium longum [id number] unt / lactobacillus acidophilus [id number] unt oral capsule (5 sources) Start: 09-06-2022 End: 10-06-2022 take 1 capsule by mouth once daily L.acidoph-B.anima lis-B.longum (FLORAJEN DIGESTION) 15 billion cell cap Indications: Cellulitis of skin Take 1 capsule by mouth once daily. 30 capsule 3 09/06/2022 10/06/2022 Active Completed/Discontinued Medications Medication Drug Class(es) Dates Sig (Normalized) Sig (Original) [id number] actuat albuterol 0.09 mg/actuat metered dose inhaler (20 sources) beta2-Adrenergic Agonist Start: 12-20-2021 End: 10-12-2022 take 2 puff(s) by inhalation every four hours as needed for wheezing albuterol HFA (VENTOLIN HFA) 90 mcg/actuation inhaler Indications: Essential hypertension, benign Inhale 2 Puffs as instructed every 4 hours as needed for wheezing/shortness of breath. 1 Inhaler 0 12/20/2021 10/12/2022 Discontinued Problems Active Problems Problem Classification Problem Date Documented Date Episodic/Chronic Anxiety disorders (20 sources) Generalized anxiety disorder; Translations: [Generalized anxiety disorder] Onset: 06-15-2020 06-15-2020 Chronic Asthma (20 sources) Asthma; Translations: [Unspecified asthma, uncomplicated] Onset: 09-02-2019 09-02-2019 Chronic Cardiac dysrhythmias (20 sources) Chronic atrial fibrillation; Translations: [Chronic atrial fibrillation, unspecified] Onset: 08-01-2018 Chronic Chronic kidney disease (20 sources) Chronic kidney disease stage 3B ; Translations: [Stage 3b chronic kidney disease] Onset: 03-21-2022 03-21-2022 Chronic Chronic kidney disease (1 source) Chronic kidney disease; Translations: [Stage 3b chronic kidney disease (HCC)] Onset: 03-21-2022 Congestive heart failure; nonhypertensive (20 sources) Chronic systolic heart failure; Translations: [Chronic systolic (congestive) heart failure] Onset: 08-09-2018 08-09-2018 Chronic Diabetes mellitus with complications (20 sources) Type 2 diabetes mellitus; Translations: [Type 2 diabetes mellitus with diabetic chronic kidney disease] Onset: 01-24-2017 03-21-2022 Chronic Diabetes mellitus without complication (6 sources) Type 2 diabetes mellitus without complication; Translations: [Type 2 diabetes mellitus without complications] Onset: 01-24-2017 01-24-2017 Chronic Diabetes mellitus without complication (1 source) Diabetes mellitus without complication; Translations: [Type 2 diabetes mellitus with stage 3b chronic kidney disease, without long-term current use of insulin (HCC)] Onset: 03-21-2022 Disorders of lipid metabolism (20 sources) Hyperlipidemia; Translations: [Hyperlipidemia, unspecified] Onset: 05-25-2005 07-14-2015 Chronic Esophageal disorders (2 sources) Gastroesophageal reflux disease without esophagitis; Translations: [Gastro-esophageal reflux disease without esophagitis] 02-15-2023 Chronic Essential hypertension (20 sources) Benign essential hypertension; Translations: [Essential (primary) hypertension] Onset: 05-25-2005 05-25-2005 Chronic Hypertension with complications and secondary hypertension (20 sources) Hypertensive heart disease with congestive heart failure; Translations: [Hypertensive heart disease with heart failure] Onset: 03-21-2022 03-21-2022 Chronic Other aftercare (1 source) Anticoagulant effect; Translations: [label designer (current) use of anticoagulants] 02-15-2023 Episodic Other circulatory disease (18 sources) Disorder of carotid artery; Translations: [Disorder of arteries and arterioles, unspecified] Onset: 02-15-2023 02-15-2023 Chronic Other inflammatory condition of skin (20 sources) Bullous pemphigoid; Translations: [Bullous pemphigoid] Onset: 07-14-2014 07-14-2014 Chronic Other lower respiratory disease (20 sources) Fibrosis of lung; Translations: [Pulmonary fibrosis, unspecified] Onset: 08-09-2018 08-09-2018 Chronic Other lower respiratory disease (1 source) Wheezing; Translations: [Wheezing] 05-10-2023 Episodic Other lower respiratory disease (1 source) Cough; Translations: [Cough, unspecified type] 05-15-2023 Episodic Other lower respiratory disease (1 source) Wheezing; Translations: [Wheezing] Onset: 05-10-2023 Episodic Other male genital disorders (20 sources) Secondary erectile dysfunction; Translations: [Male erectile dysfunction, unspecified] Onset: 06-25-2007 06-25-2007 Chronic Other nutritional; endocrine; and metabolic disorders (20 sources) Obesity; Translations: [Obesity, unspecified] Onset: 05-25-2005 05-25-2005 Chronic Other nutritional; endocrine; and metabolic disorders (18 sources) Morbid obesity; Translations: [Morbid (severe) obesity due to excess calories] 02-15-2023 Chronic Isabel-; endo-; and myocarditis; cardiomyopathy (except that caused by tuberculosis or sexually transmitted disease) (20 sources) Cardiomyopathy; Translations: [Cardiomyopathy, unspecified] Onset: 08-09-2018 08-09-2018 Chronic Skin and subcutaneous tissue infections (3 sources) Cellulitis of skin; Translations: [Cellulitis, unspecified] Episodic Spondylosis; intervertebral disc disorders; other back problems (4 sources) Low back pain; Translations: [Midline low back pain without sciatica, unspecified chronicity] Episodic Sprains and strains (1 source) Strain of back muscle; Translations: [Strain of muscle, fascia and tendon of lower back, initial encounter] Episodic Thyroid disorders (20 sources) Acquired hypothyroidism; Translations: [Hypothyroidism, unspecified] Onset: 06-15-2020 06-15-2020 Chronic Unclassified (1 source) Chronic atrial fibrillation, unspecified; Translations: [Atrial fibrillation, chronic (HCC)] Onset: 03-05-2023 Past or Other Problems Problem Classification Problem Date Documented Da te Episodic/Chronic Diabetes mellitus without complication (20 sources) Impaired fasting glycemia; Translations: [Impaired fasting glucose] Onset: 07-14-2008 07-14-2008 Episodic Results Test Name Value Interpretation Reference Range Facil ity Vital Signs Date Time Vital Sign Value Performing Clinician Reagan oliva 05-29-2023 09:28-0400 Body weight 99.97 kg Saumya Farias MD Work Phone: [facility] 05-29-2023 09:28-0400 Diastolic blood pressure 70 mm[Hg] Saumya Farias MD Work Phone: [facility] 05-29-2023 09:28-0400 Heart rate 48 /min Saumya Farias MD Work Phone: [facility] 05-29-2023 09:28-0400 Respiratory rate 18 /min Saumya Farias MD Work Phone: [facility] 05-29-2023 09:28-0400 SaO2% (BldA) [Mass fraction] 97 % Saumya Farias MD Work Phone: [facility] 05-29-2023 09:28-0400 Systolic blood pressure 124 mm[Hg] Saumya Farias MD Work Phone: [facility] 05-10-2023 11:02-0400 SaO2% (BldA) [Mass fraction] 89 % Alesha Athy PA-C Work Phone: [facility] 05-10-2023 09:55-0400 Body temperature 98.4 [degF] Alesha Athy PA-C Work Phone: [facility] 05-10-2023 09:55-0400 Body weight 100.43 kg Alesha Athy PA-C Work Phone: [facility] 05-10-2023 09:55-0400 Diastolic blood pressure 58 mm[Hg] Alesha Athy PA-C Work Phone: [facility] 05-10-2023 09:55-0400 Heart rate 58 /min Alesha Athy PA-C Work Phone: [facility] 05-10-2023 09:55-0400 Respiratory rate 16 /min Alesha Athy PA-C Work Phone: [facility] 05-10-2023 09:55-0400 Systolic blood pressure 100 mm[Hg] Alesha Athy PA-C Work Phone: [facility] 02-15-2023 09:25-0400 Body weight 101.15 kg Saumya Farias MD Work Phone: [facility] 02-15-2023 09:25-0400 Diastolic blood pressure 74 mm[Hg] Saumya Farias MD Work Phone: [facility] 02-15-2023 09:25-0400 Heart rate 60 /min Saumya Farias MD Work Phone: [facility] 02-15-2023 09:25-0400 Respiratory rate 20 /min Saumya Farias MD Work Phone: [facility] 02-15-2023 09:25-0400 Systolic blood pressure 132 mm[Hg] Saumya Farias MD Work Phone: [facility] 11-16-2022 09:47-0400 Body weight 97.84 kg Saumya Farias MD Work Phone: [facility] 11-16-2022 09:47-0400 Diastolic blood pressure 68 mm[Hg] Saumya Farias MD Work Phone: [facility] 11-16-2022 09:47-0400 Heart rate 60 /min Saumya Farias MD Work Phone: [facility] 11-16-2022 09:47-0400 Respiratory rate 18 /min Saumya Farias MD Work Phone: [facility] 11-16-2022 09:47-0400 Systolic blood pressure 118 mm[Hg] Saumya Farias MD Work Phone: [facility] 10-12-2022 10:06-0500 Body weight 95.25 kg Saumya Farias MD Work Phone: [facility] 10-12-2022 10:06-0500 Diastolic blood pressure 68 mm[Hg] Saumya Farias MD Work Phone: [facility] 10-12-2022 10:06-0500 Heart rate 68 /min Saumya Farias MD Work Phone: [facility] 10-12-2022 10:06-0500 Respiratory rate 16 /min Saumya Farias MD Work Phone: [facility] 10-12-2022 10:06-0500 Systolic blood pressure 120 mm[Hg] Saumya Farias MD Work Phone: [facility] 09-06-2022 13:56-0500 Diastolic blood pressure 60 mm[Hg] Aundrea Gutiérrezhof LPC.BAG MAKER Work Phone: [facility] 09-06-2022 13:56-0500 Heart rate 76 /min Aundrea Gutiérrezhof LPC.BAG MAKER Work Phone: [facility] 09-06-2022 13:56-0500 Respiratory rate 20 /min Aundrea Gutiérrezhof LPC.BAG MAKER Work Phone: [facility] 09-06-2022 13:56-0500 SaO2% (BldA) [Mass fraction] 96 % Aundreajett Gutiérrezhof LPC.BAG MAKER Work Phone: [facility] 09-06-2022 13:56-0500 Systolic blood pressure 110 mm[Hg] Aundrea Gutiérrezhof LPC.BAG MAKER Work Phone: [facility] 06-22-2022 08:43-0500 Body weight 112.81 kg Saumya Farias MD Work Phone: [facility] 06-22-2022 08:43-0500 Diastolic blood pressure 80 mm[Hg] Saumya Farias MD Work Phone: [facility] 06-22-2022 08:43-0500 Heart rate 74 /min Saumya Farias MD Work Phone: [facility] 06-22-2022 08:43-0500 Respiratory rate 20 /min Saumya Farias MD Work Phone: [facility] 06-22-2022 08:43-0500 Systolic blood pressure 132 mm[Hg] aSumya Farias MD Work Phone: [facility] 05-25-2022 14:36-0400 Body weight 116.57 kg Saumya Farias MD Work Phone: [facility] 05-25-2022 14:36-0400 Diastolic blood pressure 62 mm[Hg] Saumya Farias MD Work Phone: [facility] 05-25-2022 14:36-0400 Heart rate 60 /min Saumya Farias MD Work Phone: [facility] 05-25-2022 14:36-0400 Respiratory rate 20 /min Saumya Farias MD Work Phone: [facility] 05-25-2022 14:36-0400 Systolic blood pressure 124 mm[Hg] Saumya Farias MD Work Phone: [facility] 04-26-2022 08:51-0400 Body weight 115.67 kg Aundrea Tannhof LPC.BAG MAKER Work Phone: [facility] 04-26-2022 08:51-0400 Diastolic blood pressure 60 mm[Hg] Aundrea Tannhof LPC.BAG MAKER Work Phone: [facility] 04-26-2022 08:51-0400 Heart rate 57 /min Aundrea Tannhof LPC.BAG MAKER Work Phone: [facility] 04-26-2022 08:51-0400 Respiratory rate 20 /min Aundrea Tannhof LPC.BAG MAKER Work Phone: [facility] 04-26-2022 08:51-0400 SaO2% (BldA) [Mass fraction] 96 % Aundrea Tannhof LPC.BAG MAKER Work Phone: [facility] 04-26-2022 08:51-0400 Systolic blood pressure 124 mm[Hg] Aundrea Tannhof LPC.BAG MAKER Work Phone: [facility] 03-23-2022 08:44-0400 Body weight 114.94 kg Saumya Farias MD Work Phone: [facility] 03-23-2022 08:44-0400 Diastolic blood pressure 74 mm[Hg] Saumya Farias MD Work Phone: [facility] 03-23-2022 08:44-0400 Heart rate 56 /min Saumya Farias MD Work Phone: [facility] 03-23-2022 08:44-0400 Respiratory rate 20 /min Saumya Farias MD Work Phone: [facility] 03-23-2022 08:44-0400 Systolic blood pressure 136 mm[Hg] Saumya Farias MD Work Phone: [facility] Encounters Encounter Date Encounter Type Care Provider Facility Start: 08-07-2023 End: 08-07-2023 ambulatory [facility] Facility:[facility] Start: 08-07-2023 End: 08-07-2023 ambulatory [facility] Facility:[facility] Start: 07-17-2023 End: 07-17-2023 ambulatory [facility] Facility:[facility] Start: 07-17-2023 End: 07-17-2023 Anticoagulant drug monitoring [facility] Work Phone: [facility] [place] Procedures Date Procedure Procedure Detail Performing Clinician Start: 03-20-2023 Prothrombin time [facility] Pr ovider Start: 02-28-2023 Prothrombin time [facility] Pr ovider Start: 02-28-2023 PROTHROMBIN TIME/PT [facility] Provider Start: 02-15-2023 Prothrombin time Saumya Farias MD Work Phone: Start: 03-23-2022 Adult depression scr eening assessment [facility] Work Phone: Start: 03-17-2019 Adult depression scr eening assessment [facility] Work Phone: Plan of Treatment Date Care Activity Detail Author Start: 06-29-2024 Glaucoma screening Dilated Retinal E xam [facility] Start: 06-29-2024 Hepatitis C antibody , confirmatory test Dilated Retinal Exam [facility] Start: 05-29-2024 Annual PCP Team [employer] d[employer]is Disease Visit Annual PCP Team Chronic Disease Visit [facility] Start: 05-29-2024 BP Controlled (<130/80) BP Controlle d (<130/80) [facility] Start: 05-29-2024 Covid-19 Vaccine (#1) Covid-19 Vacci ne (#1) [facility] Immunizations Immunization Date Immunization Notes Care Provider Fa chidi 06-15-2020 influenza, high-dose , quadrivalent vaccine (FLUZONE HIGH DOSE QUADRIVALENT) [facility] Work Phone: [facility] 06-15-2020 influenza virus vacc ine, unspecified formulation Alesha Waterman PA-C Work Phone: [facility] 07-18-2016 influenza, high dose seasonal, preservative-free [facility] Work Phone: [facility] 07-14-2015 influenza, high dose seasonal, preservative-free [facility] Work Phone: [facility] 07-14-2015 pneumococcal conjuga te vaccine, 13 valent [facility] Work Phone: [facility] 07-14-2014 influenza, high dose seasonal, preservative-free [facility] Work Phone: [facility] Work Phone: 07-08-2013 influenza virus vacc ine, unspecified formulation [facility] Work Phone: [facility] 06-25-2012 influenza virus vacc ine, unspecified formulation [facility] Work Phone: [facility] 03-21-2010 pneumococcal polysaccharide vaccine, 23 valent [facility] Work Phone: [facility] Work Phone: 07-14-2008 influenza virus vacc ine, unspecified formulation [facility] Work Phone: [facility] 08-27-2007 influenza virus vacc ine, unspecified formulation [facility] Work Phone: [facility] Work Phone: 06-25-2007 tetanus toxoid, redu milind diphtheria toxoid, and acellular pertussis vaccine, adsorbed [facility] Work Phone: [facility] Work Phone: Payers Date Payer Category Payer Unknown [id number] 2022 Unknown [id number] 2018 Unknown [id number] 2018 Unknown [id number] 2018 Unknown [id number] Social History Date Type Detail Facility Start: 06-25-2012 End: 04-26-2022 Tobacco smoking status NHIS Never smoked tobacco [facility] Start: 06-20-2021 End: 05-29-2023 Alcohol intake Current drinker of alcohol (finding) [facility] Start: 1940 Sex Assigned At Not on file [facility] Start: 12-10-2021 End: 06-22-2022 Exposure to SARS-CoV-2 (event) Not sure [facility] Start: 06-25-2012 End: 04-26-2022 Tobacco use and exposure Smokeless tobacco non-user [facility] Start: 12-12-2022 End: 02-15-2023 History of Social function [facility] Start: 12-12-2022 End: 02-15-2023 Tobacco use panel [facility] Adult Depression Scr eening Assessment 1 [facility] Clinical Notes 11-22-2021 to 08-07-2023 Saumya Farias MD - 07/17/2023 11:29 AM Vanessa Barcenas RN - 07/17/2023 9:43 AM Lamar Matthews Ma - 07/05/2023 12:04 PM Saumya Dubon MD - 07/05/2023 11:53 AM EST Note Date & Type Note Facility 08-07-2023 Note HNO ID: [id number] Author: Saumya Farias MD Service: ? Author Type: Physician Type: Progress Notes Filed: 08/07/2023 3:06 PM Note Text: Transitional Care Management TCM Eligibility Documentation No recent care coordination documentation related to TCM found. Provider Documentation Norris Stein is a 82 year old male here today for a follow up from recent hospitalization. I have reviewed the patient's hospital course including discharge summary, discharge medications , and follow up needs with the patient and any family members present at today's visit. HPI 14 day TCM He has been home 2 weeks now. Wants ears looked at today to see if any wax build up. Pt is using catheters due to voiding difficulties. He would like some lubricant to help make this a little easier. He was referred to Urology, seeing Dr. Hawkins. Son wanted pt to have a bladder US done to see how much urine is sitting his in bladder at this time. Pt follows with [employer], Dr. Plasencia. Is currently taking 10 mg prednisone daily. He is willing to try to cut back on the dosage to 5 mg daily however he is wheezy in the lungs so advised to continue with the 10 mg. Has appt to follow up with Cardio at [facility] next week. Son feels he needs to see an MD rather than the DIRECTOR OF CONTRACTS's he has been seeing because the fluid retention is not resolving. He has a lot of swelling in the legs. He is on Lasix 40 mg BID. He is on oxygen. Rash: this was looked at while admitted, was told it was not shingles. He has a cough, when the cough is really severe he gets a burning sensation. He is taking Gabapentin which has helped with the pain. He would like a refill on the cough syrup, he feels it helps, only uses as needed. Wound: following with Dr. Rodriguez, Director Of Therapy Services. They feel the wound is not healing due to poor circulation due to the swelling of the legs. -Admitted for: Anasarca, Hypoxia, UTI Plan Anasarca Progressively worsening over the last several months. Weight up 10kg from last month, though previously, weight has hovered around 100kg previously. 24 urine protein elevated, therefore, concern for nephrotic syndrome. Will consult nephrology. Continue furosemide 80 BID though the patient is improving, I feel he would benefit from further diuresis. Echocardiogram shows an EF of 55% with right ventricular systolic pressures of 25 mmHg and no evidence of diastolic dysfunction or valvular dysfunction. BNP was within normal limits. TSH is overtly unremarkable. Duplex LE negative. 07/25: creatinine up to 2.09. Will dc IV furosemide. The 40 mg of furosemide twice daily that he was taking at home was ineffective 30 recommend that he increase it to 60 mg twice daily which he option also take an additional dose to put on more than 2 pounds in 1 day or 3 pounds in 1 week. Patient states that he has a new scale so he can keep track of that at home. Acute hypoxia -Resolved at rest-Patient may need ambulatory pulse ox prior to discharge ESBL Klebsiella pneumonia UTI meropenem from through the . Will discharge with Q48h dosing of levofloxacin for 2 more doses. Hypokalemia Resolved however patient on ongoing diuresis so we will repeat lab in a.m. Magnesium levels within normal limits Acute on chronic constipation Patient with large bowel movement on Sunday. Good results with GoLytely x 1 L. -Continue MiraLAX but increase to twice daily and as needed senna Consider discontinuation of iron supplementation if hemoglobin remained stable Right-sided trunk pain No rash consistent with shingles however symptoms are more shingles-like with hypersensitivity continue gabapentin 100 mg 3 times daily and monitor Left great toe infection Continue home doxycycline Chronic conditions: DM-2-Last hemoglobin A1c was from September and was elevated 8.3-Blood sugars this morning look good-Continue home regimen of basal insulin 20 units at at bedtime and 7 units 3 times adasc-KKZ-Czkwcew/carb controlled diet Carotid stenosis-Continue aspirin-Continue Coumadin-Continue outpatient follow-up with Dr. Be-Status post stent 11/03/2022 CAD/HTN/HPL-History of RCA angioplasty-Continue aspirin-Continue statin-Continue Coreg History of iron deficiency anemia-Hemoglobin is normalized and stable-Continue outpatient supplementation but if remains stable may discontinue as this could be exacerbating his constipation CKD stage IIIb-Baseline serum creatinine appears to fluctuate between 1.5 and 2.2 over the last year-Currently 1.9-Continue diuresis-Avoid nephrotoxins as able-Repeat BMP in a.m. 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 [facility] 08-07-2023 Note HNO ID: [id number] Author: Saumya Farias MD Service: ? Author Type: Physician Type: Progress Notes Filed: 08/07/2023 11:59 AM Note Text: I agree with the advice given; patient change coumadin to 2mg Thurs, Sat and 1mg all other days and recheck inr in 1 week Saumya Farias MD [facility] 08-07-2023 Note HNO ID: [id number] Author: Vanessa Mckeon, HELGA Service: ? Author Type: Registered Nurse Type: Progress Notes Filed: 08/07/2023 11:59 AM Note Text: patient had inr completed at [facility] patients inr is 3.3 (patients inr range is 2.0-3.0) patient is currently taking 2mg Tues,Thurs, Sat and 1mg all other days patients last dose change was on 07/05/23 due to a high level of 3.9 (dose at that time was 1mg Sun,Sun,Sun and 2mg all other days) patient has had a change in medication and he is on doxy and gabapentin and no change in diet recommend: patient change coumadin to 2mg Thurs, Sat and 1mg all other days and recheck inr in 1 week patient has been scheduled for a 1 week follow up inr on 08/15/23 please review and advise on recommendation [facility] 07-26-2023 Note HNO ID: [id number] Author: Martha Stewart Ma Service: ? Author Type: ? Type: Progress Notes Filed: 07/26/2023 3:56 PM Note Text: Pt notified. Martha Stewart Ma [facility] 07-26-2023 Note HNO ID: [id number] Author: Saumya Farias MD Service: ? Author Type: Physician Type: Progress Notes Filed: 07/26/2023 3:56 PM Note Text: I would suggest a Urology consult for help with the voiding problems Saumya Farias MD [facility] 07-26-2023 Note HNO ID: [id number] Author: Marc Savage MA Service: ? Author Type: Disability Manager Type: Progress Notes Filed: 07/26/2023 2:27 PM Note Text: TRANSITION CARE MANAGEMENT (TCM) INITIAL CONTACT Disability Manager Outreach Provider Action/FYI: -Patient is advised to continue checking INR-will check at home 07/27 @ call results into the office. -Patient was advised to discontinue Doxycycline AND Prednisone which the Prednisone had been prescribed previously boom tender. Patient would like to continue if possible. -Patient states having difficulty voiding on own but feels with self catheter will be able to better AND patient feels it will help to relieve some fluid as well. Patient questions if a referral to urology is beneficial and if it would be more efficient in obtaining self catheters or would an order for supplies to a DME be the same? Initial contact with patient post discharge, spoke to patient. Patient identified by name and . TRANSITION CARE MANAGEMENT INITIAL OUTREACH DOCUMENTATION: No flowsheet data found. SUMMARY: -Pt discharged from [facility] on 07/25/23. -Admitted for: Anasarca, Hypoxia, UTI Plan Anasarca Progressively worsening over the last several months. Weight up 10kg from last month, though previously, weight has hovered around 100kg previously. 24 urine protein elevated, therefore, concern for nephrotic syndrome. Will consult nephrology. Continue furosemide 80 BID though the patient is improving, I feel he would benefit from further diuresis. Echocardiogram shows an EF of 55% with right ventricular systolic pressures of 25 mmHg and no evidence of diastolic dysfunction or valvular dysfunction. BNP was within normal limits. TSH is overtly unremarkable. Duplex LE negative. 07/25: creatinine up to 2.09. Will dc IV furosemide. The 40 mg of furosemide twice daily that he was taking at home was ineffective 30 recommend that he increase it to 60 mg twice daily which he option also take an additional dose to put on more than 2 pounds in 1 day or 3 pounds in 1 week. Patient states that he has a new scale so he can keep track of that at home. Acute hypoxia -Resolved at rest-Patient may need ambulatory pulse ox prior to discharge ESBL Klebsiella pneumonia UTI meropenem from through the . Will discharge with Q48h dosing of levofloxacin for 2 more doses. Hypokalemia Resolved however patient on ongoing diuresis so we will repeat lab in a.m. Magnesium levels within normal limits Acute on chronic constipation Patient with large bowel movement on Sunday. Good results with GoLytely x 1 L. -Continue MiraLAX but increase to twice daily and as needed senna Consider discontinuation of iron supplementation if hemoglobin remained stable Right-sided trunk pain No rash consistent with shingles however symptoms are more shingles-like with hypersensitivity continue gabapentin 100 mg 3 times daily and monitor Left great toe infection Continue home doxycycline Chronic conditions: DM-2-Last hemoglobin A1c was from September and was elevated 8.3-Blood sugars this morning look good-Continue home regimen of basal insulin 20 units at at bedtime and 7 units 3 times tneyd-JDX-Ignictm/carb controlled diet Carotid stenosis-Continue aspirin-Continue Coumadin-Continue outpatient follow-up with Dr. Be-Status post stent 11/03/2022 CAD/HTN/HPL-History of RCA angioplasty-Continue aspirin-Continue statin-Continue Coreg History of iron deficiency anemia-Hemoglobin is normalized and stable-Continue outpatient supplementation but if remains stable may discontinue as this could be exacerbating his constipation CKD stage IIIb-Baseline serum creatinine appears to fluctuate between 1.5 and 2.2 over the last year-Currently 1.9-Continue diuresis-Avoid nephrotoxins as able-Repeat BMP in a.m. 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 Appointment on 08/07/23 with PCP-Dr. Farias. Yes. Remind patient of appointment date, time, and location. If not within 14 calendar days of discharge - please reschedule accordingly. MEDICATIONS: Many patients have questions or concerns about their medications once they are home. Were you prescribed any new medications? If yes, what are those medications? levofloxacin 500 mg tablet 500 mg PO Q48H Qty: 2 0RF Were you told to hold any medications? No Were any of your medications discontinued? Yes- Doxycycline AND Prednisone Do you have any questions about getting or taking your medications? No Your discharge instructions/After visit Summary (A (more content not included)... [facility] 07-26-2023 Note Patient Outreach (FA MPWS) NORRIS STEIN ([id number]) 1940 M Date Time Provider Department 07/26/23 MARC SAVAGE During your visit today, we recorded the following information about you: Marc Savage, NENA 07/26/2023 2:27 PM Signed TRANSITION CARE MANAGEMENT (TCM) INITIAL CONTACT Disability Manager Outreach Provider Action/FYI: -Patient is advised to continue checking INR-will check at home 07/27 @ call results into the office. -Patient was advised to discontinue Doxycycline AND Prednisone which the Prednisone had been prescribed previously long-term. Patient would like to continue if possible. -Patient states having difficulty voiding on own but feels with self catheter will be able to better AND patient feels it will help to relieve some fluid as well. Patient questions if a referral to urology is beneficial and if it would be more efficient in obtaining self catheters or would an order for supplies to a DME be the same? Initial contact with patient post discharge, spoke to patient. Patient identified by name and . TRANSITION CARE MANAGEMENT INITIAL OUTREACH DOCUMENTATION: No flowsheet data found. SUMMARY: -Pt discharged from [facility] on 07/25/23. -Admitted for: Anasarca, Hypoxia, UTI Plan Anasarca Progressively worsening over the last several months. Weight up 10kg from last month, though previously, weight has hovered around 100kg previously. 24 urine protein elevated, therefore, concern for nephrotic syndrome. Will consult nephrology. Continue furosemide 80 BID though the patient is improving, I feel he would benefit from further diuresis. Echocardiogram shows an EF of 55% with right ventricular systolic pressures of 25 mmHg and no evidence of diastolic dysfunction or valvular dysfunction. BNP was within normal limits. TSH is overtly unremarkable. Duplex LE negative. 07/25: creatinine up to 2.09. Will dc IV furosemide. The 40 mg of furosemide twice daily that he was taking at home was ineffective 30 recommend that he increase it to 60 mg twice daily which he option also take an additional dose to put on more than 2 pounds in 1 day or 3 pounds in 1 week. Patient states that he has a new scale so he can keep track of that at home. Acute hypoxia -Resolved at rest-Patient may need ambulatory pulse ox prior to discharge ESBL Klebsiella pneumonia UTI meropenem from through the . Will discharge with Q48h dosing of levofloxacin for 2 more doses. Hypokalemia Resolved however patient on ongoing diuresis so we will repeat lab in a.m. Magnesium levels within normal limits Acute on chronic constipation Patient with large bowel movement on Sunday. Good results with GoLytely x 1 L. -Continue MiraLAX but increase to twice daily and as needed senna Consider discontinuation of iron supplementation if hemoglobin remained stable Right-sided trunk pain No rash consistent with shingles however symptoms are more shingles-like with hypersensitivity continue gabapentin 100 mg 3 times daily and monitor Left great toe infection Continue home doxycycline Chronic conditions: DM-2-Last hemoglobin A1c was from September and was elevated 8.3-Blood sugars this morning look good-Continue home regimen of basal insulin 20 units at at bedtime and 7 units 3 times ufoth-FBW-Hvhduly/carb controlled diet Carotid stenosis-Continue aspirin-Continue Coumadin-Continue outpatient follow-up with Dr. Be-Status post stent 11/03/2022 CAD/HTN/HPL-History of RCA angioplasty-Continue aspirin-Continue statin-Continue Coreg History of iron deficiency anemia-Hemoglobin is normalized and stable-Continue outpatient supplementation but if remains stable may discontinue as this could be exacerbating his constipation CKD stage IIIb-Baseline serum creatinine appears to fluctuate between 1.5 and 2.2 over the last year-Currently 1.9-Continue diuresis-Avoid nephrotoxins as able-Repeat BMP in a.m. 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 Appointment on 08/07/23 with PCP-Dr. Farias. Yes. Remind patient of appointment date, time, and location. If not within 14 calendar days of discharge - please reschedule accordingly. MEDICATIONS: Many patients have questions or concerns about their medications once they are home. Were you prescribed any new medications? If yes, what are those medications? levofloxacin 500 mg tablet 500 mg PO Q48H Qty: 2 0RF Were you told to hold any medications? No Were any of your medications (more content not included)... [facility] 07-17-2023 Note HNO ID: [id number] Author: Saumya Farias MD Service: ? Author Type: Physician Type: Progress Notes Filed: 07/17/2023 5:41 PM Note Text: I agree with the advice given; stay same and recheck in 3 weeks Saumya Farias MD [facility] 07-17-2023 Note HNO ID: [id number] Author: Vanessa Mckeon RN Service: ? Author Type: ? Type: Progress Notes Filed: 07/17/2023 5:41 PM Note Text: patient had inr completed at [facility] patients inr is 2.5 (patients inr range is 2.0-3.0) patient is currently taking 2mg Tues,Thurs,Sat and 1mg all other days patients last dose change was on 07/05/23 due to a high level of 3.9 (dose at that time was 1mg Wed,Fri, Sun and 2mg all other days) patient has had a change in medication and he has been placed on doxy for 10 day for a foot infection and no uninstructed missed doses and no change in diet Advised patient to continue on the same dose(s) and that they would only be contacted regarding dosage and follow up instructions after review with provider, if a change is needed. Written instructions given and patient verbalized understanding. Presently scheduled in 3 weeks (08/07/23) for follow up INR. [facility] 07-17-2023 History of Presen t illness Narrative I agree with the advice given; stay same and recheck in 3 weeks Saumya Farias MD patient had inr completed at [facility] patients inr is 2.5 (patients inr range is 2.0-3.0) patient is currently taking 2mg Tues,Thurs,Sat and 1mg all other days patients last dose change was on 07/05/23 due to a high level of 3.9 (dose at that time was 1mg Wed,Fri, Sun and 2mg all other days) patient has had a change in medication and he has been placed on doxy for 10 day for a foot infection and no uninstructed missed doses and no change in diet Advised patient to continue on the same dose(s) and that they would only be contacted regarding dosage and follow up instructions after review with provider, if a change is needed. Written instructions given and patient verbalized understanding. Presently scheduled in 3 weeks (08/07/23) for follow up INR. documented in this encounter [facility] 07-05-2023 Note HNO ID: [id number] Author: Lamar Love Ma Service: ? Author Type: ? Type: Progress Notes Filed: 07/05/2023 4:54 PM Note Text: Called and spoke with Flora and Ratna, who care for pt. Asked questions stating that they think pt's blood is too thin. Was eating a pretzel, that caused him to bleed. Notified her that at appt today there were adjustments made by CC Nurse and PCP agreed with this. Asked for pt to call back, which she will have him do. Tracker updated. When pt returns call, update him that PCP agrees with plan. Also stating that pt doesn't want to move a lot at home, needs to do his therapy. Lamar Love Ma [facility] 07-05-2023 Note HNO ID: [id number] Author: Saumya Farias MD Service: ? Author Type: Physician Type: Progress Notes Filed: 07/05/2023 4:54 PM Note Text: I agree with the advice given; patient hold dose today and then restart coumadin tomorrow with dosing of 2mg Tu,Th,Sat and 1mg all other days and recheck in 2 weeks as patient declines 1 week Saumya Farias MD [facility] 07-05-2023 Note HNO ID: [id number] Author: Vanessa Mckeon RN Service: ? Author Type: ? Type: Progress Notes Filed: 07/05/2023 4:54 PM Note Text: patient had inr completed at [facility] patients inr is 3.9 (patients inr range is 2.0-3.0) patient is currently taking 1mg Wed,Frin,Sun and 2mg all other days patients last dose change was on 03/20/23 due to a high level of 3.9 (dose at that time was 1mg Tues,Thurs and 2mg all other days) patient has had a change in medication as patient is taking pain medication on a regular basis now and no missed doses and no change in diet recommend: patient hold dose today and then restart coumadin tomorrow with dosing of 2mg Tues,Thurs,Sat and 1mg all other days and recheck in 2 weeks as patient declines 1 week patient has been scheduled for a 2 week follow up on 07/17/23 (spouse has appt also this day) please review and advise on recommendation [facility] 07-05-2023 History of Presen t illness Narrative Called and spoke with Flora and Ratna, who care for pt. Asked questions stating that they think pt's blood is too thin. Was eating a pretzel, that caused him to bleed. Notified her that at appt today there were adjustments made by CC Nurse and PCP agreed with this. Asked for pt to call back, which she will have him do. Tracker updated. When pt returns call, update him that PCP agrees with plan. Also stating that pt doesn't want to move a lot at home, needs to do his therapy. Lamar Love Ma I agree with the advice given; patient hold dose today and then restart coumadin tomorrow with dosing of 2mg Tues,Thurs,Sat and 1mg all other days and recheck in 2 weeks as patient declines 1 week Saumya Farias MD patient had inr completed at [facility] patients inr is 3.9 (patients inr range is 2.0-3.0) patient is currently taking 1mg Wed,Frin,Sun and 2mg all other days patients last dose change was on 03/20/23 due to a high level of 3.9 (dose at that time was 1mg Tues,Thurs and 2mg all other days) patient has had a change in medication as patient is taking pain medication on a regular basis now and no missed doses and no change in diet recommend: patient hold dose today and then restart coumadin tomorrow with dosing of 2mg Tues,Thurs,Sat and 1mg all other days and recheck in 2 weeks as patient declines 1 week patient has been scheduled for a 2 week follow up on 07/17/23 (spouse has appt also this day) please review and advise on recommendation documented in this encounter [facility] 06-12-2023 Note HNO ID: [id number] Author: Saumya Farias MD Service: ? Author Type: Physician Type: Progress Notes Filed: 06/12/2023 4:29 PM Note Text: I agree with the advice given; stay same and recheck in 3 weeks Saumya Farias MD [facility] 06-12-2023 Note HNO ID: [id number] Author: Vanessa Mckeon RN Service: ? Author Type: ? Type: Progress Notes Filed: 06/12/2023 4:29 PM Note Text: patient had inr completed at [facility] patients inr is 2.8 (patients inr range is 2.0-3.0) patient is currently taking 1mg Sun,Sun,Sun and 2mg all other days patients last dose change was on 03/20/23 due to a high level of 3.9 (dose at that time was 1mg Tues,Thurs, and 2mg all other days) patient has had no changes in medication and no missed doses and no change in diet Advised patient to continue on the same dose(s) and that they would only be contacted regarding dosage and follow up instructions after review with provider, if a change is needed. Written instructions given and patient verbalized understanding. Presently scheduled in 3 weeks (07/05/23) for follow up INR. [facility] 05-29-2023 Note HNO ID: [id number] Author: Saumya Farias MD Service: ? Author Type: Physician Type: Progress Notes Filed: 05/29/2023 11:43 AM Note Text: Noted and agree Saumya Farias MD [facility] 05-29-2023 Note HNO ID: [id number] Author: Martha Stewart Ma Service: ? Author Type: ? Type: Progress Notes Filed: 05/29/2023 11:43 AM Note Text: Reviewed during office visit with pt, provider agrees. Martha Stewart Ma [facility] 05-29-2023 History of Presen t illness Narrative Noted and agree Saumya Farias MD Reviewed during office visit with pt, provider agrees. Martha Stewart Ma patient had inr completed at [facility] patients inr is 2.9 (patients inr range is 2.0-3.0) patient is currently taking 1mg Sun,Sun,Sun and 2mg all other days patients last dose change was on 03/20/23 due to a high level of 3.9 (dose at that time was 1mg Tues,Thurs and 2mg all other days) patient has had a change in medication as he just completed antibiotics and prednisone and no missed doses and no change in diet Advised patient to continue on the same dose(s) and that they would only be contacted regarding dosage and follow up instructions after review with provider, if a change is needed. Written instructions given and patient verbalized understanding. Presently scheduled in 2 weeks (06/12/23) for follow up INR. documented in this encounter [facility] 05-29-2023 Note HNO ID: [id number] Author: Saumya Farias MD Service: ? Author Type: Physician Type: Progress Notes Filed: 05/29/2023 10:30 AM Note Text: Chief Complaint Patient presents with: F/U 3 Month HPI Norris Stein is a 82 year old male who presents here today for 3 month follow up. Here with , Martha. Unsure if he has an advanced directive. He does have a POA. Declined flu, covid, pneumonia vaccines today. Denies any stomach, bowel or urinary issues. Takes Flomax 0.4 mg once daily. GERD sx controlled with Prilosec 20 mg daily. Following with [facility] for kidney function. DM: Checking BS 2 x a day with FBS 112-160. No lows or neuropathy sx. Taking Lantus 25 units as needed depending on his BS readings, does not use it much. Is using insulin 4 x a week if he his BS is too high. Also taking Jardiance 10 mg daily. He follows with the [facility] for dm exams. He would like to get off the Jardiance as it costs him a lot of money. A1c down from 8.5 to 8.4. Lipid/CAD: Watching diet. Denies getting as much exercise. On Lipitor 40 mg daily, tolerating well. CKD: Stage 3b; monitored with labs and pt follows with [facility] Dr. Plasencia. A-fib: INR and coumadin managed by PCP and coumadin clinic. HTN/CHF: Checking BP at home with readings 140/80 to 120/70. No chest pains or dizziness, Does get SOB. Follows with [facility]. Taking Lopressor 50 mg 1.5 tablets BID and Pacerone 100 mg daily, as well as Aldactone 25 mg daily, Norvasc 10 mg daily. Edema: addie legs; right is worse than left. Taking Lasxi 40 mg BID. He has a bed that he can lift the legs on. FERMÍN: Stable; rarely uses Ativan. Thyroid: Taking Synthroid 75 mcg daily, no missed dosages. No longer following with Dr. Fabian for back pain, now going to [facility]. He is going to be starting PT at [facility] for his back and balance. Past medical history, appointments, medications, allergies reviewed. Previous Medical History PAST MEDICAL HISTORY Diagnosis Date DM (diabetes mellitus) (HCC) Essential hypertension, benign Other and unspecified hyperlipidemia Other specified family circumstances Previous Surgical History PAST SURGICAL HISTORY Procedure Laterality Date COLONOSCOPY FLX DX W/COLLJ SPEC WHEN PFRMD 04/08/15 Colonoscopy Family History No family history on file. Patient Allergies ALLERGIES No Known Allergies Current Medications Current Outpatient Medications on File Prior to Visit Medication Sig amiodarone (PACERONE) 100 mg tablet Take 1 tablet by mouth once daily. amLODIPine (NORVASC) 10 mg tablet Take 1 tablet by mouth once daily. ASPIRIN 81 MG ORAL TAB Take one(1) tablet daily. atorvastatin (LIPITOR) 40 mg tablet Take 1 tablet by mouth daily at bedtime. cetirizine (ZYRTEC) 10 mg tablet Take 1 tablet by mouth once daily. Cholecalciferol, Vitamin D3, 25 mcg (1,000 unit) cap Take 1 capsule by mouth once daily. codeine-guaiFENesin (GUAIFENESIN AC) 10-100 mg/5 mL syrup Take 5 mL by mouth three times a day as needed for up to 8 days. CPAP Initiate CPAP @ 15 cm of water with humidification. Mask (per patient preference) optional chin strap (if indicated) , filters, tubing, humidifier and lifetime supplies. empagliflozin (JARDIANCE) 10 mg tablet Take 1 tablet by mouth once daily. Take 1 tablet once daily in the morning ferrous sulfate 325 mg (65 mg iron) tablet Take 1 tablet by mouth twice daily with meals. furosemide (LASIX) 40 mg tablet Take 1 tablet by mouth twice daily. insulin glargine (LANTUS SOLOSTAR U-100 INSULIN) 100 unit/mL (3 mL) Inject 25 Units subcutaneously daily at bedtime. levothyroxine (SYNTHROID) 75 mcg tablet Take 1 tablet by mouth once daily. Take on empty stomach. For Thyroid. metoprolol tartrate, short acting, (LOPRESSOR) 50 mg tablet Take 1.5 tablets by mouth twice daily. omeprazole (PRILOSEC) 20 mg capsule Take 1 capsule by mouth once daily. predniSONE (DELTASONE) 5 mg tablet Take 2 tablets by mouth once daily. tamsulosin (FLOMAX) 0.4 mg Take 1 capsule by mouth daily at bedtime. warfarin (COUMADIN) 2 mg tablet 1 mg Wed/Sun, 2 mg all other days or as directed No current facility-administered medications on file prior to visit. Social History Social History Tobacco Use Smoking status: Never Smokeless tobacco: Never Vaping Use Vaping Use: Never used Substance Use Topics Alcohol use: Yes Comment: occasional sip of wine Drug use: No EXAM: BP 124/70 Pulse (!) 48 Resp 18 Wt 100 kg (220 lb 6.4 oz) SpO2 97% BMI 36.12 kg/m? General Appearance: Well appearing, alert, in no acute distress, well-hydrated, well nourished., Obese, and Walker. Ears: External ears normal, canals clear, Positive findings: cerumen bilaterally, amount Small. Lungs: Lungs clear to auscultation. No wheezing, rhonchi, rales.. Heart: RRR without murmur, gallop, or rubs. No ectopy. Health Maintenance List Covid-19 Vaccine(1) Noelle (more content not included)... [facility] 05-29-2023 Note HNO ID: [id number] Author: Vanessa Mckeon RN Service: ? Author Type: ? Type: Progress Notes Filed: 05/29/2023 11:43 AM Note Text: patient had inr completed at [facility] patients inr is 2.9 (patients inr range is 2.0-3.0) patient is currently taking 1mg Wed,Fri,Sun and 2mg all other days patients last dose change was on 03/20/23 due to a high level of 3.9 (dose at that time was 1mg Tu,Thurs and 2mg all other days) patient has had a change in medication as he just completed antibiotics and prednisone and no missed doses and no change in diet Advised patient to continue on the same dose(s) and that they would only be contacted regarding dosage and follow up instructions after review with provider, if a change is needed. Written instructions given and patient verbalized understanding. Presently scheduled in 2 weeks (06/12/23) for follow up INR. [facility] 05-29-2023 History of Presen t illness Narrative Chief Complaint Patient presents with: F/U 3 Month HPI Norris Stein is a 82 year old male who presents here today for 3 month follow up. Here with , Martha. Unsure if he has an advanced directive. He does have a POA. Declined flu, covid, pneumonia vaccines today. Denies any stomach, bowel or urinary issues. Takes Flomax 0.4 mg once daily. GERD sx controlled with Prilosec 20 mg daily. Following with [facility] for kidney function. DM: Checking BS 2 x a day with FBS 112-160. No lows or neuropathy sx. Taking Lantus 25 units as needed depending on his BS readings, does not use it much. Is using insulin 4 x a week if he his BS is too high. Also taking Jardiance 10 mg daily. He follows with the [facility] for dm exams. He would like to get off the Jardiance as it costs him a lot of money. A1c down from 8.5 to 8.4. Lipid/CAD: Watching diet. Denies getting as much exercise. On Lipitor 40 mg daily, tolerating well. CKD: Stage 3b; monitored with labs and pt follows with [facility] Dr. Plasencia. A-fib: INR and coumadin managed by PCP and coumadin clinic. HTN/CHF: Checking BP at home with readings 140/80 to 120/70. No chest pains or dizziness, Does get SOB. Follows with [facility]. Taking Lopressor 50 mg 1.5 tablets BID and Pacerone 100 mg daily, as well as Aldactone 25 mg daily, Norvasc 10 mg daily. Edema: addie legs; right is worse than left. Taking Lasxi 40 mg BID. He has a bed that he can lift the legs on. FERMÍN: Stable; rarely uses Ativan. Thyroid: Taking Synthroid 75 mcg daily, no missed dosages. No longer following with Dr. Fabian for back pain, now going to [facility]. He is going to be starting PT at [facility] for his back and balance. Past medical history, appointments, medications, allergies reviewed. Previous Medical History PAST MEDICAL HISTORY Diagnosis Date DM (diabetes mellitus) (HCC) Essential hypertension, benign Other and unspecified hyperlipidemia Other specified family circumstances Previous Surgical History PAST SURGICAL HISTORY Procedure Laterality Date COLONOSCOPY FLX DX W/COLLJ SPEC WHEN PFRMD 04/08/15 Colonoscopy Family History No family history on file. Patient Allergies ALLERGIES No Known Allergies Current Medications Current Outpatient Medications on File Prior to Visit Medication Sig amiodarone (PACERONE) 100 mg tablet Take 1 tablet by mouth once daily. amLODIPine (NORVASC) 10 mg tablet Take 1 tablet by mouth once daily. ASPIRIN 81 MG ORAL TAB Take one(1) tablet daily. atorvastatin (LIPITOR) 40 mg tablet Take 1 tablet by mouth daily at bedtime. cetirizine (ZYRTEC) 10 mg tablet Take 1 tablet by mouth once daily. Cholecalciferol, Vitamin D3, 25 mcg (1,000 unit) cap Take 1 capsule by mouth once daily. codeine-guaiFENesin (GUAIFENESIN AC) 10-100 mg/5 mL syrup Take 5 mL by mouth three times a day as needed for up to 8 days. CPAP Initiate CPAP @ 15 cm of water with humidification. Mask (per patient preference) optional chin strap (if indicated) , filters, tubing, humidifier and lifetime supplies. empagliflozin (JARDIANCE) 10 mg tablet Take 1 tablet by mouth once daily. Take 1 tablet once daily in the morning ferrous sulfate 325 mg (65 mg iron) tablet Take 1 tablet by mouth twice daily with meals. furosemide (LASIX) 40 mg tablet Take 1 tablet by mouth twice daily. insulin glargine (LANTUS SOLOSTAR U-100 INSULIN) 100 unit/mL (3 mL) Inject 25 Units subcutaneously daily at bedtime. levothyroxine (SYNTHROID) 75 mcg tablet Take 1 tablet by mouth once daily. Take on empty stomach. For Thyroid. metoprolol tartrate, short acting, (LOPRESSOR) 50 mg tablet Take 1.5 tablets by mouth twice daily. omeprazole (PRILOSEC) 20 mg capsule Take 1 capsule by mouth once daily. predniSONE (DELTASONE) 5 mg tablet Take 2 tablets by mouth once daily. tamsulosin (FLOMAX) 0.4 mg Take 1 capsule by mouth daily at bedtime. warfarin (COUMADIN) 2 mg tablet 1 mg Sun/Sun, 2 mg all other days or as directed No current facility-administered medications on file prior to visit. Social History Social History Tobacco Use Smoking status: Never Smokeless tobacco: Never Vaping Use Vaping Use: Never used Substance Use Topics Alcohol use: Yes Comment: occasional sip of wine Drug use: No EXAM: BP 124/70 Pulse (!) 48 Resp 18 Wt 100 kg (220 lb 6.4 oz) SpO2 97% BMI 36.12 kg/m General Appearance: Well appearing, alert, in no acute distress, well-hydrated, well nourished., Obese, and Walker. Ears: External ears normal, canals clear, Positive findings: cerumen bilaterally, amount Small. Lungs: Lungs clear to auscultation. No wheezing, rhonchi, rales.. Heart: RRR without murmur, gallop, or rubs. No ectopy. Health Maintenance List Covid-19 Vaccine(1) Never done Spirometry Never done Shingrix Vaccine(1 of 2) Never done Hepatitis B Vaccine(1 of 3 - Risk 3-dose series) Never done DTaP,Tdap,Td Vaccine(2 - Td or Tdap) due on 06/25/2017 Diabetic Foot Exam due on 06/20/2022 Advance Directive Discussion due on 08/06/2022 Depression Assessment Never done Dilated Retinal Exam due on 02/03/2023 Influenza Vaccine(1) due on 04/06/2023 HbA1C due on 05/10/2023 LDL Cholesterol due on 02/08/2024 Serum Creatinine due on 02/08/2024 Hemoglobin/Hematocrit due on 02/08/2024 Annual PCP Team Chronic Disease Visit due on 02/16/2024 BP Controlled (<130/80) due on 05/10/2024 Pneumococcal Vaccine: 65+ Completed Colorectal Cancer Screening Discontinued Data reviewed Appointment on 05/22/2023 Component Date Value Protein, Total 05/22/2023 6.8 Albumin 05/22/2023 3.6 (L) Calcium, Total 05/22/2023 9.5 Bilirubin, Total 05/22/2023 0.4 Alkaline Phosphatase 05/22/2023 114 (H) AST 05/22/2023 20 ALT 05/22/2023 17 Glucose 05/22/2023 116 (H) BUN 05/22/2023 41 (H) Creatinine 05/22/2023 1.90 (H) Sodium 05/22/2023 144 Potassium 05/22/2023 4.0 Chloride 05/22/2023 102 CO2 05/22/2023 28 Anion Gap 05/22/2023 14 Estimated Glomerular Wiley* 05/22/2023 35 (L) Cholesterol, Total 05/22/2023 147 Triglyceride 05/22/2023 77 HDL Cholesterol 05/22/2023 50 Non HDL Cholesterol 05/22/2023 97 Fasting Time 05/22/2023 14 VLDL Cholesterol 05/22/2023 15 TC:HDL Ratio 05/22/2023 2.94 LDL Cholesterol 05/22/2023 82 LDL:HDL Ratio 05/22/2023 1.64 Hemoglobin A1C 05/22/2023 8.4 (H) Estimated Average Glucose 05/22/2023 194 TSH 05/22/2023 0.933 WBC 05/22/2023 11.73 (H) RBC 05/22/2023 4.85 Hemoglobin 05/22/2023 14.4 Hematocrit 05/22/2023 44.7 MCV 05/22/2023 92.2 MCH 05/22/2023 29.7 MCHC 05/22/2023 32.2 RDW-CV 05/22/2023 14.6 Platelet Count 05/22/2023 193 MPV 05/22/2023 9.6 Absolute nRBC 05/22/2023 <0.01 Results Only on 05/15/2023 Component Date Value INR (POCT) 05/15/2023 2.5 (H) Internal Quality Check 05/15/2023 Acceptable Results Only on 05/01/2023 Component Date Value INR (POCT) 05/01/2023 2.6 (H) Internal Quality Check 05/01/2023 Acceptable Results Only on 04/11/2023 Component Date Value INR (POCT) 04/11/2023 2.1 (H) Internal Quality Check 04/11/2023 Acceptable ASSESSMENT/PLAN: 1. Type 2 diabetes mellitus with stage 3b chronic kidney disease, without long-term current use of insulin (HCC) - ICD9: 250.40, 585.3, ICD10: E11.22, N18.32 (primary diagnosis) - Improving control - Continue current medications - Counseled on healthy diet and regular exercise - Discussed need for and benefit of weight loss. BMI 36.12 kg/(m^2) Continue with [facility] Dr. Plasencia - COMP METABOLIC PANEL - HGB A1C - ALBUMIN/CREAT RATIO RND UR 2. Essential hypertension, benign - ICD9: 401.1, ICD10: I10 - Controlled - Continue current medications - Recommend home blood pressure monitoring, to bring results to next visit - Encouraged sodium restriction, DASH or Mediterranean diet - Recommend regular aerobic exercise - Discussed need for and benefit of weight loss. BMI 36.12 kg/(m^2) - AMIODARONE 100 MG TABLET 3. Hyperlipidemia, unspecified hyperlipidemia type - ICD9: 272.4, ICD10: E78.5 - Controlled - Continue current medications - Counseled on healthy diet and regular exercise - Discussed need for and benefit of weight loss. BMI 36.12 kg/(m^2) - LIPID PANEL BASIC - COMP METABOLIC PANEL 4. Chronic systolic heart failure (HCC) - ICD9: 428.22, ICD10: I50.22 - Continue current medications. Continue with Cardio, Dr. Hendrix - AMIODARONE 100 MG TABLET 5. Chronic atrial fibrillation (HCC) - ICD9: 427.31, ICD10: I48.20 Stable Continue current medications. 6. Stage 3b chronic kidney disease (HCC) - ICD9: 585.3, ICD10: N18.32 Continue with current medications Continue to follow with [facility], Dr. Plasencia 7. Hypothyroidism, acquired - ICD9: 244.9, ICD10: E03.9 - Instructed patient on importance of taking on an empty stomach either first thing in the morning or at bedtime. Continue current medications. - TSH BLD 8. FERMÍN (generalized anxiety disorder) - ICD9: 300.02, ICD10: F41.1 Stable Continue with Ativan prn Follow up in 6 months with fasting labs and urine test prior. I agree with the Chief Complaint, ROS, and Past Histories independently gathered by the clinical client support manager and the remaining scribed note accurately describes my personal service to the patient. Medical Decision Making: Problems: Moderate: 2+ stable chronic illnesses Data: Unique test result(s) reviewed: 3+ Unique test(s) ordered: 3+ Risk: Moderate: Drug management Medical Decision Making Level: 4 - Moderate Saumya Farias MD The documentation for this note was completed by Martha Stewart Ma acting as scribe for Saumya Farias MD. May 29, 2023 9:08 AM. Martha Stewart Ma documented in this encounter [facility] 05-15-2023 Note HNO ID: [id number] Author: Saumya Farias MD Service: ? Author Type: Physician Type: Progress Notes Filed: 05/15/2023 12:12 PM Note Text: I agree with the advice given; stay same and recheck in 2 weeks Saumya Farias MD [facility] 05-15-2023 Miscellaneous Notes Ok for refill and cough medicine as ordered Saumya Farias MD patient is here today for inr check and is requesting a refill on amlodopine and is asking for codeine cough medicine for his cough that he was seen in [facility] and [facility] ER for. please review and advise patient only needs called if problem with calling both medications documented in this encounter [facility] 05-15-2023 Note HNO ID: [id number] Author: Vanessa Mckeon RN Service: ? Author Type: ? Type: Progress Notes Filed: 05/15/2023 12:12 PM Note Text: patient had inr completed at [facility] patients inr is 2.5 (patients inr range is 2.0-3.0) patient is currently taking 1mg Wed,Fri,Sun and 2mg all other days patients last dose change was on 03/20/23 due to a high level of 3.9 (dose at that time was 1mg Tues,Thurs and 2mg all other days) patient has had no changes in medication and no missed doses and no change in diet Advised patient to continue on the same dose(s) and that they would only be contacted regarding dosage and follow up instructions after review with provider, if a change is needed. Written instructions given and patient verbalized understanding. Presently scheduled in 2 weeks (05/29/23 - pt has appt with pcp also this days) for follow up INR. [facility] 05-15-2023 History of Presen t illness Narrative I agree with the advice given; stay same and recheck in 2 weeks Saumya Farias MD patient had inr completed at [facility] patients inr is 2.5 (patients inr range is 2.0-3.0) patient is currently taking 1mg Wed,Fri,Sun and 2mg all other days patients last dose change was on 03/20/23 due to a high level of 3.9 (dose at that time was 1mg Tues,Thurs and 2mg all other days) patient has had no changes in medication and no missed doses and no change in diet Advised patient to continue on the same dose(s) and that they would only be contacted regarding dosage and follow up instructions after review with provider, if a change is needed. Written instructions given and patient verbalized understanding. Presently scheduled in 2 weeks (05/29/23 - pt has appt with pcp also this days) for follow up INR. documented in this encounter [facility] 05-10-2023 Note HNO ID: [id number] Author: Alesha Waterman PA-C Service: ? Author Type: Physician Reconnaissance Crewmember Type: Progress Notes Filed: 05/10/2023 11:28 AM Note Text: This note was created using [employer]. Subjective Norris Stein is a 82 year old male. HPI Patient presents with cough, wheezing and shortness of breath over the past week. He does have a history of asthma, cardiomyopathy, congestive heart failure, A-fib, and diabetes. He did have some increased swelling in his legs the beginning of the week and doubled his Lasix for 3 days which seemed to help a lot. He still however feels short of breath. He does wear 2 L of oxygen at night with his CPAP, does not wear it throughout the day. He denies chest pain. He has had some nasal congestion. Review of Systems Constitutional: Positive for fatigue. HENT: Positive for congestion. Respiratory: Positive for cough, chest tightness, shortness of breath and wheezing. Cardiovascular: Positive for leg swelling. Gastrointestinal: Negative. Genitourinary: Negative. Musculoskeletal: Negative. All other systems reviewed and are negative. PAST MEDICAL HISTORY Diagnosis Date DM (diabetes mellitus) (HCC) Essential hypertension, benign Other and unspecified hyperlipidemia Other specified family circumstances Current Outpatient Medications Medication Sig Dispense Refill omeprazole (PRILOSEC) 20 mg capsule Take 1 capsule by mouth once daily. 90 capsule 3 warfarin (COUMADIN) 2 mg tablet 1 mg Sun/Sun, 2 mg all other days or as directed 45 tablet 5 predniSONE (DELTASONE) 5 mg tablet Take 2 tablets by mouth once daily. 180 tablet 3 tamsulosin (FLOMAX) 0.4 mg Take 1 capsule by mouth daily at bedtime. 90 capsule 3 insulin glargine (LANTUS SOLOSTAR U-100 INSULIN) 100 unit/mL (3 mL) Inject 25 Units subcutaneously daily at bedtime. 8 Each 3 furosemide (LASIX) 40 mg tablet Take 1 tablet by mouth twice daily. 180 tablet 3 empagliflozin (JARDIANCE) 10 mg tablet Take 1 tablet by mouth once daily. Take 1 tablet once daily in the morning 90 tablet 3 amiodarone (PACERONE) 100 mg tablet Take 1 tablet by mouth once daily. 90 tablet 3 metoprolol tartrate, short acting, (LOPRESSOR) 50 mg tablet Take 1.5 tablets by mouth twice daily. 90 tablet 11 levothyroxine (SYNTHROID) 75 mcg tablet Take 1 tablet by mouth once daily. Take on empty stomach. For Thyroid. 90 tablet 3 atorvastatin (LIPITOR) 40 mg tablet Take 1 tablet by mouth daily at bedtime. 90 tablet 3 ferrous sulfate 325 mg (65 mg iron) tablet Take 1 tablet by mouth twice daily with meals. Cholecalciferol, Vitamin D3, 25 mcg (1,000 unit) cap Take 1 capsule by mouth once daily. cetirizine (ZYRTEC) 10 mg tablet Take 1 tablet by mouth once daily. 30 tablet 11 CPAP Initiate CPAP @ 15 cm of water with humidification. Mask (per patient preference) optional chin strap (if indicated) , filters, tubing, humidifier and lifetime supplies. 1 Device 0 ASPIRIN 81 MG ORAL TAB Take one(1) tablet daily. 0 No current facility-administered medications for this visit. PAST SURGICAL HISTORY Procedure Laterality Date COLONOSCOPY FLX DX W/COLLJ SPEC WHEN PFRMD 04/08/15 Colonoscopy No family history on file. Social History Tobacco Use Smoking status: Never Smokeless tobacco: Never Vaping Use Vaping Use: Never used Substance Use Topics Alcohol use: Yes Comment: occasional sip of wine Drug use: No Objective BP 100/58 Pulse (!) 58 Temp 36.9 ?C (98.4 ?F) Resp 16 Wt 100.4 kg (221 lb 6.4 oz) SpO2 89% BMI 36.28 kg/m? Physical Exam Vitals reviewed. Constitutional: Appearance: Normal appearance. HENT: Head: Normocephalic and atraumatic. Right Ear: Tympanic membrane, ear canal and external ear normal. Left Ear: Tympanic membrane, ear canal and external ear normal. Nose: Congestion present. Mouth/Throat: Mouth: Mucous membranes are moist. Pharynx: Oropharynx is clear. Cardiovascular: Rate and Rhythm: Normal rate and regular rhythm. Heart sounds: Normal heart sounds. Pulmonary: Effort: No respiratory distress. Breath sounds: Wheezing and rales present. Comments: Mild tachypnea Musculoskeletal: Cervical back: Neck supple. Skin: General: Skin is warm and dry. Neurological: General: No focal deficit present. Mental Status: He is alert. Assessment and Plan ASSESSMENT/PLAN: 1. Wheezing - ICD9: 786.07, ICD10: R06.2 Patient given breathing treatment here. His wheezes did improve after a DuoNeb however pulse ox is still ranging 89 to 91% even about 1/2-hour after the treatment. Chest x-ray shows developing pulmonary edema. Patient has had leg swelling and had already doubled his Lasix the beginning of the week but is still short of breath. I did call and speak with PCP Anam Strickland who recommended sending him to the ER for further evaluation. Patient and his son here with him will go to [facility]. I did call and speak with Dr. Bridges (more content not included)... [facility] 05-10-2023 Note HNO ID: [id number] Author: Minoo Lyle RT(Lashawn) Service: Radiology Author Type: Technologist Type: Progress Notes Filed: 05/10/2023 10:42 AM Note Text: Radiology Service Progress Note PATIENT NAME: Norris Stein DATE OF SERVICE: May 10, 2023 TIME: 10:28 AM PATIENT IDENTITY VERIFICATION COMPLETED USING TWO (2) IDENTIFIERS: Name and Date of confirmed by patient verbally. FALL SCREENING: Has the patient had 2 falls in the last year or 1 fall with injury or currently using an Ambulatory Assistive Device (Walker, Cane, Wheelchair, Crutches, etc.)? Yes, Patient High Risk for Falls What interventions were put in place to prevent falls during this visit? Offered Assistance with Transfers/Clothing and Instructed Patient to Remain Seated (Not on Exam Table) Until Exam PATIENT GENDER DATA: Male PATIENT RELEVANT IMPLANT DATA REVIEWED: Not Applicable RADIOLOGY DEPARTMENT: General X-ray: Exam(s) Completed: Chest X-Ray PERIPHERAL IV DATA: Not applicable SIGNED BY: RT Jayden(R) May 10, 2023 10:28 AM [facility] 05-10-2023 History of Presen t illness Narrative This note was created using [employer]. Subjective Norris Stein is a 82 year old male. HPI Patient presents with cough, wheezing and shortness of breath over the past week. He does have a history of asthma, cardiomyopathy, congestive heart failure, A-fib, and diabetes. He did have some increased swelling in his legs the beginning of the week and doubled his Lasix for 3 days which seemed to help a lot. He still however feels short of breath. He does wear 2 L of oxygen at night with his CPAP, does not wear it throughout the day. He denies chest pain. He has had some nasal congestion. Review of Systems Constitutional: Positive for fatigue. HENT: Positive for congestion. Respiratory: Positive for cough, chest tightness, shortness of breath and wheezing. Cardiovascular: Positive for leg swelling. Gastrointestinal: Negative. Genitourinary: Negative. Musculoskeletal: Negative. All other systems reviewed and are negative. PAST MEDICAL HISTORY Diagnosis Date DM (diabetes mellitus) (HCC) Essential hypertension, benign Other and unspecified hyperlipidemia Other specified family circumstances Current Outpatient Medications Medication Sig Dispense Refill omeprazole (PRILOSEC) 20 mg capsule Take 1 capsule by mouth once daily. 90 capsule 3 warfarin (COUMADIN) 2 mg tablet 1 mg Sun/Sun, 2 mg all other days or as directed 45 tablet 5 predniSONE (DELTASONE) 5 mg tablet Take 2 tablets by mouth once daily. 180 tablet 3 tamsulosin (FLOMAX) 0.4 mg Take 1 capsule by mouth daily at bedtime. 90 capsule 3 insulin glargine (LANTUS SOLOSTAR U-100 INSULIN) 100 unit/mL (3 mL) Inject 25 Units subcutaneously daily at bedtime. 8 Each 3 furosemide (LASIX) 40 mg tablet Take 1 tablet by mouth twice daily. 180 tablet 3 empagliflozin (JARDIANCE) 10 mg tablet Take 1 tablet by mouth once daily. Take 1 tablet once daily in the morning 90 tablet 3 amiodarone (PACERONE) 100 mg tablet Take 1 tablet by mouth once daily. 90 tablet 3 metoprolol tartrate, short acting, (LOPRESSOR) 50 mg tablet Take 1.5 tablets by mouth twice daily. 90 tablet 11 levothyroxine (SYNTHROID) 75 mcg tablet Take 1 tablet by mouth once daily. Take on empty stomach. For Thyroid. 90 tablet 3 atorvastatin (LIPITOR) 40 mg tablet Take 1 tablet by mouth daily at bedtime. 90 tablet 3 ferrous sulfate 325 mg (65 mg iron) tablet Take 1 tablet by mouth twice daily with meals. Cholecalciferol, Vitamin D3, 25 mcg (1,000 unit) cap Take 1 capsule by mouth once daily. cetirizine (ZYRTEC) 10 mg tablet Take 1 tablet by mouth once daily. 30 tablet 11 CPAP Initiate CPAP @ 15 cm of water with humidification. Mask (per patient preference) optional chin strap (if indicated) , filters, tubing, humidifier and lifetime supplies. 1 Device 0 ASPIRIN 81 MG ORAL TAB Take one(1) tablet daily. 0 No current facility-administered medications for this visit. PAST SURGICAL HISTORY Procedure Laterality Date COLONOSCOPY FLX DX W/COLLJ SPEC WHEN PFRMD 04/08/15 Colonoscopy No family history on file. Social History Tobacco Use Smoking status: Never Smokeless tobacco: Never Vaping Use Vaping Use: Never used Substance Use Topics Alcohol use: Yes Comment: occasional sip of wine Drug use: No Objective BP 100/58 Pulse (!) 58 Temp 36.9 C (98.4 F) Resp 16 Wt 100.4 kg (221 lb 6.4 oz) SpO2 89% BMI 36.28 kg/m Physical Exam Vitals reviewed. Constitutional: Appearance: Normal appearance. HENT: Head: Normocephalic and atraumatic. Right Ear: Tympanic membrane, ear canal and external ear normal. Left Ear: Tympanic membrane, ear canal and external ear normal. Nose: Congestion present. Mouth/Throat: Mouth: Mucous membranes are moist. Pharynx: Oropharynx is clear. Cardiovascular: Rate and Rhythm: Normal rate and regular rhythm. Heart sounds: Normal heart sounds. Pulmonary: Effort: No respiratory distress. Breath sounds: Wheezing and rales present. Comments: Mild tachypnea Musculoskeletal: Cervical back: Neck supple. Skin: General: Skin is warm and dry. Neurological: General: No focal deficit present. Mental Status: He is alert. Assessment and Plan ASSESSMENT/PLAN: 1. Wheezing - ICD9: 786.07, ICD10: R06.2 Patient given breathing treatment here. His wheezes did improve after a DuoNeb however pulse ox is still ranging 89 to 91% even about 1/2-hour after the treatment. Chest x-ray shows developing pulmonary edema. Patient has had leg swelling and had already doubled his Lasix the beginning of the week but is still short of breath. I did call and speak with PCP Anam Strickland who recommended sending him to the ER for further evaluation. Patient and his son here with him will go to [facility]. I did call and speak with Dr. Bhagat and gave report. - IPRATROPIUM 0.5 MG-ALBUTEROL 3 MG (2.5 MG BASE)/3 ML NEBULIZATION SOLN - XR CHEST 2V FRONTAL/LAT Aleshaprashant Waterman PA-C documented in this encounter [facility] 05-10-2023 Nurse Note 2.5 solution aerosol treatment given per providers oders. Prior to treatment O2 sat is 93. Treatment completed O2 sat 94. Tolerated well. Tania Gaston MA documented in this encounter [facility] 05-01-2023 Note HNO ID: [id number] Author: Martha Stewart Ma Service: ? Author Type: ? Type: Progress Notes Filed: 05/01/2023 3:39 PM Note Text: Pt daughter, Nadine notified. Martha Stewart Ma [facility] 05-01-2023 Note HNO ID: [id number] Author: Ben Chopra DO Service: ? Author Type: Physician Type: Progress Notes Filed: 05/01/2023 3:39 PM Note Text: Agree with below Ben Chopra DO [facility] 05-01-2023 Note HNO ID: [id number] Author: Vanessa Mckeon RN Service: ? Author Type: ? Type: Progress Notes Filed: 05/01/2023 3:39 PM Note Text: patient had inr completed at [facility] patients inr is 2.6 (patients inr range is 2.0-3.0) patient is currently taking 1mg Wed,Sun,Sun and 2mg all other days patients last dose change was on 03/20/23 due to a high level of 3.9 (dose at that time was 1mg Tues,Thurs, and 2mg all other days) patient has had no changes in medication and no missed doses and no change in diet Advised patient to continue on the same dose(s) and that they would only be contacted regarding dosage and follow up instructions after review with provider, if a change is needed. Written instructions given and patient verbalized understanding. Presently scheduled in 2 weeks (05/14/23) for follow up INR. [facility] 04-11-2023 Note HNO ID: [id number] Author: Armani Norris MD Service: ? Author Type: Physician Type: Progress Notes Filed: 04/11/2023 7:56 PM Note Text: No changes in coumadin dosing needed. Agree with next INR check. [facility] 04-11-2023 History of Presen t illness Narrative No changes in coumadin dosing needed. Agree with next INR check. patient had inr completed at [facility] patients inr is 2.1 (patients inr range is 2.0-3.0) patient is currently taking 1mg Wed,Fri,Sun and 2mg all other days patients last dose change was on 03/20/23 due to a high level of 3.9 (dose at that time was 1mg Tues,Thurs and 2mg all other days) patient has had no changes in medication and no missed doses and no change in diet Advised patient to continue on the same dose(s) and that they would only be contacted regarding dosage and follow up instructions after review with provider, if a change is needed. Written instructions given and patient verbalized understanding. Presently scheduled in 2 weeks (05/01/23 - spouse has appt also this day) for follow up INR. documented in this encounter [facility] 04-11-2023 Note HNO ID: [id number] Author: Vanessa Mckeon RN Service: ? Author Type: ? Type: Progress Notes Filed: 04/11/2023 7:57 PM Note Text: patient had inr completed at [facility] patients inr is 2.1 (patients inr range is 2.0-3.0) patient is currently taking 1mg Wed,Fri,Sun and 2mg all other days patients last dose change was on 03/20/23 due to a high level of 3.9 (dose at that time was 1mg Tues,Thurs and 2mg all other days) patient has had no changes in medication and no missed doses and no change in diet Advised patient to continue on the same dose(s) and that they would only be contacted regarding dosage and follow up instructions after review with provider, if a change is needed. Written instructions given and patient verbalized understanding. Presently scheduled in 2 weeks (05/01/23 - spouse has appt also this day) for follow up INR. [facility] 03-29-2023 Note HNO ID: [id number] Author: Martha Stewart Ma Service: ? Author Type: ? Type: Progress Notes Filed: 03/29/2023 4:18 PM Note Text: Detailed message left on pt identified VM. Martha Stewart Ma [facility] 03-29-2023 Note HNO ID: [id number] Author: Saumya Farias MD Service: ? Author Type: Physician Type: Progress Notes Filed: 03/29/2023 4:18 PM Note Text: I agree with the advice given; stay same and recheck in 2 weeks Saumya Farias MD [facility] 03-29-2023 Note HNO ID: [id number] Author: Vanessa Mckeon RN Service: ? Author Type: ? Type: Progress Notes Filed: 03/29/2023 4:18 PM Note Text: patient had inr completed at [facility] patients inr is 2.5 (patients inr range is 2.0-3.0) patient is currently taking 1mg Wed,Fri,Sun and 2mg all other days patients last dose change was on 03/20/23 due to a high level of 3.9 (dose at that time was 1mg Tues,Thurs and 2mg all other days) patient has had no changes in medication and no missed doses and no change in diet Advised patient to continue on the same dose(s) and that they would only be contacted regarding dosage and follow up instructions after review with provider, if a change is needed. Written instructions given and patient verbalized understanding. Presently scheduled in 2 weeks (04/11/23 - spouse ahas appt this day also) for follow up INR. [facility] 03-29-2023 History of Presen t illness Narrative Detailed message left on pt identified VM. Martha Stewart Ma I agree with the advice given; stay same and recheck in 2 weeks Saumya Farias MD patient had inr completed at [facility] patients inr is 2.5 (patients inr range is 2.0-3.0) patient is currently taking 1mg Wed,Sun,Sun and 2mg all other days patients last dose change was on 03/20/23 due to a high level of 3.9 (dose at that time was 1mg Tu,Th and 2mg all other days) patient has had no changes in medication and no missed doses and no change in diet Advised patient to continue on the same dose(s) and that they would only be contacted regarding dosage and follow up instructions after review with provider, if a change is needed. Written instructions given and patient verbalized understanding. Presently scheduled in 2 weeks (04/11/23 - spouse ahas appt this day also) for follow up INR. documented in this encounter [facility] 03-23-2023 Note HNO ID: [id number] Author: Jimmie Maharaj RN Service: ? Author Type: ? Type: Progress Notes Filed: 03/23/2023 12:09 PM Note Text: Patient phoned in and given provider's message below with verbalized understanding. [facility] 03-23-2023 Note HNO ID: [id number] Author: Saumya Farias MD Service: ? Author Type: Physician Type: Progress Notes Filed: 03/23/2023 11:59 AM Note Text: I agree with the advice given; stay same and recheck in 1 week Saumya Farias MD [facility] 03-23-2023 Note HNO ID: [id number] Author: Vanessa Mckeon RN Service: ? Author Type: ? Type: Progress Notes Filed: 03/23/2023 11:59 AM Note Text: patient had inr completed at [facility] patients inr is 2.3 (patients inr range is 2.0-3.0) patient is currently taking 1mg Wed,Fri,Sun and 2mg all other days patients last dose change was on 03/20/23 due to a high level of 3.9 (dose at that time was 1mg Tues,Thurs and 2mg all other days) patient has had no changes in medication except for coumadin and no uninstructed missed doses and no change in diet Advised patient to continue on the same dose(s) and that they would only be contacted regarding dosage and follow up instructions after review with provider, if a change is needed. Written instructions given and patient verbalized understanding. Presently scheduled in 1 weeks (03/29/23 - spouse has appt also this day) for follow up INR. [facility] 03-23-2023 History of Presen t illness Narrative Patient phoned in and given provider's message below with verbalized understanding. I agree with the advice given; stay same and recheck in 1 week Saumya Farias MD patient had inr completed at [facility] patients inr is 2.3 (patients inr range is 2.0-3.0) patient is currently taking 1mg Wed,Fri,Sun and 2mg all other days patients last dose change was on 03/20/23 due to a high level of 3.9 (dose at that time was 1mg Tues,Thurs and 2mg all other days) patient has had no changes in medication except for coumadin and no uninstructed missed doses and no change in diet Advised patient to continue on the same dose(s) and that they would only be contacted regarding dosage and follow up instructions after review with provider, if a change is needed. Written instructions given and patient verbalized understanding. Presently scheduled in 1 weeks (03/29/23 - spouse has appt also this day) for follow up INR. documented in this encounter [facility] 03-20-2023 Note HNO ID: [id number] Author: Vanessa Mckeon RN Service: ? Author Type: ? Type: Progress Notes Filed: 03/20/2023 2:44 PM Note Text: PATIENT NOTIFIED OF INFORMATION [facility] 03-20-2023 Note HNO ID: [id number] Author: Martha Stewart Ma Service: ? Author Type: ? Type: Progress Notes Filed: 03/20/2023 2:44 PM Note Text: Detailed message below left on pt identified JACE. Martha Stewart Ma [facility] 03-20-2023 History of Presen t illness Narrative PATIENT NOTIFIED OF INFORMATION Detailed message below left on pt identified VM. Martha Stewart Ma I agree with the advice given Saumya Farias MD patient had inr completed at [facility] patients inr is 3.9 (patients inr range is 2.0-3.0) patient is currently taking 1mg Tues,Thurs and 2mg all other days patients last dose change was on 02/28/23 due to high level of 3.9 (dose at that time was 2mg daily) patient has had no changes in medication and no missed doses and no change in diet Recommendation: patient hold coumadin today and then go to 1mg Sun,Fri,Sun and 2mg all other days and recheck in 1 week patient has been scheduled for an inr follow up in 3 days on Friday 03/23 due to spouse is scheduled for a recheck also that day Please review and advise on the recommendation documented in this encounter [facility] 03-20-2023 Note HNO ID: [id number] Author: Saumya Farias MD Service: ? Author Type: Physician Type: Progress Notes Filed: 03/20/2023 2:44 PM Note Text: I agree with the advice given Saumya Farias MD [facility] 03-20-2023 Note HNO ID: [id number] Author: Vanessa Mckeon RN Service: ? Author Type: ? Type: Progress Notes Filed: 03/20/2023 2:44 PM Note Text: patient had inr completed at [facility] patients inr is 3.9 (patients inr range is 2.0-3.0) patient is currently taking 1mg Tu, and 2mg all other days patients last dose change was on 02/28/23 due to high level of 3.9 (dose at that time was 2mg daily) patient has had no changes in medication and no missed doses and no change in diet Recommendation: patient hold coumadin today and then go to 1mg Sun,Sun,Sun and 2mg all other days and recheck in 1 week patient has been scheduled for an inr follow up in 3 days on Friday 03/23 due to spouse is scheduled for a recheck also that day Please review and advise on the recommendation [facility] 03-12-2023 Miscellaneous Notes The following approved medication requests have been transmitted electronically. Requested Prescriptions Pending Prescriptions Disp Refills omeprazole (PRILOSEC) 20 mg capsule 90 capsule 3 Sig: Take 1 capsule by mouth once daily. Anam Strickland APRN.CNP Patient has been identified by name and date of : Yes Last office visit in this department: 02/15/2023 RX INSTRUCTIONS: Patient aware RX will be sent to pharmacy. No need to notify patient. Patient phones requesting refills as follows: Requested Prescriptions Pending Prescriptions Disp Refills omeprazole (PRILOSEC) 20 mg capsule 90 capsule 3 Sig: Take 1 capsule by mouth once daily. Please review and advise. Analisa Schmidt documented in this encounter [facility] 03-05-2023 Miscellaneous Notes Pt notified, tracker and med list updated. Pt scheduled in 2 weeks with coumadin clinic. Martha Stewart Ma Continue same dose of coumadin, recheck INR 2 weeks Ben Chopra DO Last INR: INR (POCT) 3.0 03/05/2023 Current dose of coumadin is: 1 mg Wed/Fri, 2 mg all other days. Last date of dose change: 02/28/23. Previous INR (date and result): 02/28/23 INR: 3.9 Additional Clinical Information or narrative: no documented in this encounter [facility] 02-28-2023 Miscellaneous Notes Pt. informed. Please have him decrease dose to coumadin 1 mg on Wed and Fri and 2 mg other days of week, recheck INR Mon Ben L Chopra, DO Last INR: INR (POCT) 3.9 EXT 02/28/2023 Current dose of coumadin is: Coumadin 2 mg daily . Last date of dose change: 02/15/2023. Previous INR (date and result): 02/15/2023 1.9. Additional Clinical Information or narrative: yes: No unusual bleeding or bruising, no recent antibiotics, no missed doses, and no diet changes. Ewa Nelson RN documented in this encounter [facility] 02-15-2023 Note HNO ID: [id number] Author: Lamar Love Ma Service: ? Author Type: ? Type: Progress Notes Filed: 02/15/2023 12:09 PM Note Text: Tracker updated. Lamar Love Ma [facility] 02-15-2023 Note HNO ID: [id number] Author: Saumya Farias MD Service: ? Author Type: Physician Type: Progress Notes Filed: 02/15/2023 12:09 PM Note Text: Go to 2 mg daily Recheck in 2 weeks Discussed at appt Saumya Farias MD [facility] 02-15-2023 History of Presen t illness Narrative Tracker updated. Lamar Love Ma Go to 2 mg daily Recheck in 2 weeks Discussed at appt Saumya Farias MD patient had inr completed at [facility] patients inr is 1.9 (patients inr range is 2.0-3.0) patient is currently taking none on Tu and 2mg all other days patients last dose change was on 11/16/22 due to a low level of 1.7 (dose at that time was none on Tues,Thurs and 2mg all other days) patient has had no changes in medication and no uninstructed missed doses and no change in diet patient has appt with pcp and will discuss results at appt Patient will recheck inr in 2 weeks at home due to the [facility] will be closed documented in this encounter [facility] 02-15-2023 Note HNO ID: [id number] Author: Vanessa Mckeon RN Service: ? Author Type: ? Type: Progress Notes Filed: 02/15/2023 12:09 PM Note Text: patient had inr completed at [facility] patients inr is 1.9 (patients inr range is 2.0-3.0) patient is currently taking none on Tues and 2mg all other days patients last dose change was on 11/16/22 due to a low level of 1.7 (dose at that time was none on Tues,Thurs and 2mg all other days) patient has had no changes in medication and no uninstructed missed doses and no change in diet patient has appt with pcp and will discuss results at appt Patient will recheck inr in 2 weeks at home due to the CC will be closed [facility] 02-15-2023 Note HNO ID: [id number] Author: Saumya Farias MD Service: ? Author Type: Physician Type: Progress Notes Filed: 02/15/2023 4:22 PM Note Text: Chief Complaint Patient presents with: F/U 3 Month HPI Norris Stein is a 82 year old male who presents here today for a 3 month follow up. Pt here today for a 3 month follow up. Here with his today. GI/Uro - Denies any stomach, bowel or urinary issues. Takes Flomax 0.4 mg once daily. Nephr - Following with Nephrology for kidney function. GERD - Controlled with use of Prilosec 20 mg daily. Anxiety - Uses prn Ativan for anxiety, pt states that uses this rarely. Edema - Hx of cellulitis, stable. B/L lower leg, mostly in his feet. R>L. Notes that he still has a scab on his left leg that he would like to have looked at. Would like to have both legs looked at to make sure he has no re-occurring cellulitis issues. Currently taking Lasix 40 mg bid. Holding Aldactone 25 mg daily. HTN - Checks BP at home couple times per day, has been fighting elevated BP this past week. BP ranging from 118-206/70-96. Denies any chest pain or dizziness. Does have issues with sob. Checks pulse ox. Follows with [facility]. On current regimen of Pacerone 100 mg once daily and Lopressor 50 mg 1.5 tablets bid. Pt currently holding Norvasc 10 mg, Aldactone 25 and Diovan 80 mg daily. Pt wondering if he needs to resume any of his medication. Per Cardiology note in November pt was to resume Aldactone medication. DM - Checks twice daily, FBS this am was 186. Fasting ranging from 140-180. Evening tends to be higher. Denies any low blood sugars or neuropathy symptoms. On current regimen of Jardiance 10 mg once daily and Lantus varying from 0-20 units daily, rare use. Would like to go off Jardiance due to the cost of the medication. Afib - Monitored through this office with [facility] Nurse. Stable on Coumadin daily. Does have machine at home to check, noting that his INR was a little low. INR was 1.9. Currently taking 2 mg daily, except 0 mg on Sunday. Pt and asking about certain foods in diet if this can cause pt to bleed more. Tomato juice, watermelon or chocolate milk. Lipid/CAD - Tries to watch diet, eating as less as he can. Notes limited exercise. On current regimen of Lipitor 40 mg daily. Thyroid - Stable on current regimen of Synthroid 75 mcg daily. Denies any missed dosages. Was being seen by Dr. Fabian for back pain he was having, but this went by the way side. Notes he started having pain again, may ask for another referral. Would like to go to [facility]. 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 Past medical history, appointments, medications, allergies reviewed. Previous Medical History PAST MEDICAL HISTORY Diagnosis Date DM (diabetes mellitus) (HCC) Essential hypertension, benign Other and unspecified hyperlipidemia Other specified family circumstances Previous Surgical History PAST SURGICAL HISTORY Procedure Laterality Date COLONOSCOPY FLX DX W/COLLJ SPEC WHEN PFRMD 04/08/15 Colonoscopy Family History No family history on file. Patient Allergies ALLERGIES No Known Allergies Current Medications Current Outpatient Medications on File Prior to Visit Medication Sig warfarin (COUMADIN) 2 mg tablet 2 mg daily except NONE on Sunday or as directed LORazepam (ATIVAN) 0.5 mg Take 1 tablet by mouth twice daily as needed for up to 90 days. clopidogrel (PLAVIX) 75 mg tablet Take 1 tablet by mouth once daily. predniSONE (DELTASONE) 5 mg tablet Take 2 tablets by mouth once daily. tamsulosin (FLOMAX) 0.4 mg Take 1 capsule by mouth daily at bedtime. insulin glargine (LANTUS SOLOSTAR U-100 INSULIN) 100 unit/mL (3 mL) Inject 25 Units subcutaneously daily at bedtime. furosemide (LASIX) 40 mg tablet Take 1 tablet by mouth twice daily. empagliflozin (JARDIANCE) 10 mg tablet Take 1 tablet by mouth once daily. Take 1 tablet once daily in the morning amiodarone (PACERONE) 100 mg tablet Take 1 tablet by mouth once daily. metoprolol tartrate, short acting, (LOPRESSOR) 50 mg tablet Take 1.5 tablets by mouth twice daily. levothyroxine (SYNTHROID) 75 mcg tablet Take 1 tablet by mouth once daily. Take on empty stomach. For Thyroid. atorvastatin (LIPITOR) 40 mg tablet Take 1 tablet by mouth daily at bedtime. ferrous sulfate 325 mg (65 mg iron) tablet Take 1 tablet by mouth twice daily with meals. Cholecalciferol, Vitamin D3, 25 mcg (1,000 unit) cap Take 1 capsule by mouth once daily. omeprazole (PRILOSEC) 20 mg capsule Take 1 capsule by mouth once daily. cetirizine (ZYRTEC) 10 mg tablet Take 1 tablet by mouth once daily. CPAP Initiate CPAP @ 15 cm of water with humidification. Mask (per patient preference) optional chin strap (if indicated) , filters, tubing, humidifier and lifetime supplies. ASPIRIN 81 MG ORAL TAB Take one(1) tablet daily. No current facility-administered medications on file prior to visit. (more content not included)... [facility] 02-15-2023 History of Presen t illness Narrative Chief Complaint Patient presents with: F/U 3 Month HPI Norris Stein is a 82 year old male who presents here today for a 3 month follow up. Pt here today for a 3 month follow up. Here with his today. GI/Uro - Denies any stomach, bowel or urinary issues. Takes Flomax 0.4 mg once daily. Nephr - Following with Nephrology for kidney function. GERD - Controlled with use of Prilosec 20 mg daily. Anxiety - Uses prn Ativan for anxiety, pt states that uses this rarely. Edema - Hx of cellulitis, stable. B/L lower leg, mostly in his feet. R>L. Notes that he still has a scab on his left leg that he would like to have looked at. Would like to have both legs looked at to make sure he has no re-occurring cellulitis issues. Currently taking Lasix 40 mg bid. Holding Aldactone 25 mg daily. HTN - Checks BP at home couple times per day, has been fighting elevated BP this past week. BP ranging from 118-206/70-96. Denies any chest pain or dizziness. Does have issues with sob. Checks pulse ox. Follows with [facility]. On current regimen of Pacerone 100 mg once daily and Lopressor 50 mg 1.5 tablets bid. Pt currently holding Norvasc 10 mg, Aldactone 25 and Diovan 80 mg daily. Pt wondering if he needs to resume any of his medication. Per Cardiology note in November pt was to resume Aldactone medication. DM - Checks twice daily, FBS this am was 186. Fasting ranging from 140-180. Evening tends to be higher. Denies any low blood sugars or neuropathy symptoms. On current regimen of Jardiance 10 mg once daily and Lantus varying from 0-20 units daily, rare use. Would like to go off Jardiance due to the cost of the medication. Afib - Monitored through this office with [facility] Nurse. Stable on Coumadin daily. Does have machine at home to check, noting that his INR was a little low. INR was 1.9. Currently taking 2 mg daily, except 0 mg on Sunday. Pt and asking about certain foods in diet if this can cause pt to bleed more. Tomato juice, watermelon or chocolate milk. Lipid/CAD - Tries to watch diet, eating as less as he can. Notes limited exercise. On current regimen of Lipitor 40 mg daily. Thyroid - Stable on current regimen of Synthroid 75 mcg daily. Denies any missed dosages. Was being seen by Dr. Fabian for back pain he was having, but this went by the way side. Notes he started having pain again, may ask for another referral. Would like to go to [facility]. 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 Past medical history, appointments, medications, allergies reviewed. Previous Medical History PAST MEDICAL HISTORY Diagnosis Date DM (diabetes mellitus) (HCC) Essential hypertension, benign Other and unspecified hyperlipidemia Other specified family circumstances Previous Surgical History PAST SURGICAL HISTORY Procedure Laterality Date COLONOSCOPY FLX DX W/COLLJ SPEC WHEN PFRMD 04/08/15 Colonoscopy Family History No family history on file. Patient Allergies ALLERGIES No Known Allergies Current Medications Current Outpatient Medications on File Prior to Visit Medication Sig warfarin (COUMADIN) 2 mg tablet 2 mg daily except NONE on Sunday or as directed LORazepam (ATIVAN) 0.5 mg Take 1 tablet by mouth twice daily as needed for up to 90 days. clopidogrel (PLAVIX) 75 mg tablet Take 1 tablet by mouth once daily. predniSONE (DELTASONE) 5 mg tablet Take 2 tablets by mouth once daily. tamsulosin (FLOMAX) 0.4 mg Take 1 capsule by mouth daily at bedtime. insulin glargine (LANTUS SOLOSTAR U-100 INSULIN) 100 unit/mL (3 mL) Inject 25 Units subcutaneously daily at bedtime. furosemide (LASIX) 40 mg tablet Take 1 tablet by mouth twice daily. empagliflozin (JARDIANCE) 10 mg tablet Take 1 tablet by mouth once daily. Take 1 tablet once daily in the morning amiodarone (PACERONE) 100 mg tablet Take 1 tablet by mouth once daily. metoprolol tartrate, short acting, (LOPRESSOR) 50 mg tablet Take 1.5 tablets by mouth twice daily. levothyroxine (SYNTHROID) 75 mcg tablet Take 1 tablet by mouth once daily. Take on empty stomach. For Thyroid. atorvastatin (LIPITOR) 40 mg tablet Take 1 tablet by mouth daily at bedtime. ferrous sulfate 325 mg (65 mg iron) tablet Take 1 tablet by mouth twice daily with meals. Cholecalciferol, Vitamin D3, 25 mcg (1,000 unit) cap Take 1 capsule by mouth once daily. omeprazole (PRILOSEC) 20 mg capsule Take 1 capsule by mouth once daily. cetirizine (ZYRTEC) 10 mg tablet Take 1 tablet by mouth once daily. CPAP Initiate CPAP @ 15 cm of water with humidification. Mask (per patient preference) optional chin strap (if indicated) , filters, tubing, humidifier and lifetime supplies. ASPIRIN 81 MG ORAL TAB Take one(1) tablet daily. No current facility-administered medications on file prior to visit. Social History Social History Tobacco Use Smoking status: Never Smokeless tobacco: Never Vaping Use Vaping Use: Never used Substance Use Topics Alcohol use: Yes Comment: occasional sip of wine Drug use: No EXAM: BP 132/74 (BP Site: Left Arm, BP Position: Sitting, BP Cuff Size: Regular Adult) Pulse 60 Resp 20 Wt 101.2 kg (223 lb) BMI 36.54 kg/m General Appearance: Well appearing, alert, in no acute distress, well-hydrated, well nourished. and Obese. Neck: Supple, no adenopathy; thyroid symmetric, normal size, no bruits. Lungs: Lungs clear to auscultation. No wheezing, rhonchi, rales.. Heart: RRR without murmur, gallop, or rubs. No ectopy. Extremities: B/L lower leg edema noted on exam. No cellulitis noted on exam, no erythema Health Maintenance List SPIROMETRY Never done SHINGRIX VACCINE(1 of 2) Never done DTAP,TDAP,TD(2 - Td or Tdap) due on 06/25/2017 URINE ALBUMIN:CREATININE RATIO due on 06/14/2022 DIABETIC FOOT EXAM due on 06/20/2022 ADVANCE DIRECTIVE DISCUSSION due on 08/06/2022 DEPRESSION ASSESSMENT Never done DILATED RETINAL EXAM due on 02/03/2023 COVID-19 VACCINE(1) due on 03/23/2023 INFLUENZA(Season Ended) due on 04/06/2023 HBA1C due on 05/15/2023 LDL CHOLESTEROL due on 06/12/2023 HEMOGLOBIN/HEMATOCRIT due on 06/12/2023 SERUM CREATININE due on 11/14/2023 ANNUAL PCP TEAM CHRONIC DISEASE VISIT due on 11/17/2023 BP CONTROLLED (<130/80) due on 11/17/2023 PNEUMOCOCCAL: 65+ Completed Data reviewed Appointment on 02/07/2023 Component Date Value Protein, Total 02/07/2023 6.7 Albumin 02/07/2023 3.7 (L) Calcium, Total 02/07/2023 9.7 Bilirubin, Total 02/07/2023 0.4 Alkaline Phosphatase 02/07/2023 76 AST 02/07/2023 16 ALT 02/07/2023 21 Glucose 02/07/2023 131 (H) BUN 02/07/2023 42 (H) Creatinine 02/07/2023 2.16 (H) Sodium 02/07/2023 142 Potassium 02/07/2023 3.9 Chloride 02/07/2023 101 CO2 02/07/2023 29 Anion Gap 02/07/2023 12 Estimated Glomerular Wiley* 02/07/2023 30 (L) Hemoglobin A1C 02/07/2023 8.5 (H) Estimated Average Glucose 02/07/2023 197 WBC 02/07/2023 11.96 (H) RBC 02/07/2023 5.03 Hemoglobin 02/07/2023 14.7 Hematocrit 02/07/2023 47.0 MCV 02/07/2023 93.4 MCH 02/07/2023 29.2 MCHC 02/07/2023 31.3 RDW-CV 02/07/2023 14.9 Platelet Count 02/07/2023 163 MPV 02/07/2023 10.4 Absolute nRBC 02/07/2023 <0.01 Cholesterol, Total 02/07/2023 174 Triglyceride 02/07/2023 173 (H) HDL Cholesterol 02/07/2023 49 Non HDL Cholesterol 02/07/2023 125 Fasting Time 02/07/2023 13 VLDL Cholesterol 02/07/2023 35 (H) TC:HDL Ratio 02/07/2023 3.55 LDL Cholesterol 02/07/2023 90 LDL:HDL Ratio 02/07/2023 1.84 TSH 02/07/2023 2.980 Results Only on 01/16/2023 Component Date Value INR (POCT) 01/16/2023 2.4 (H) Internal Quality Check 01/16/2023 Acceptable Results Only on 01/02/2023 Component Date Value INR (POCT) 01/02/2023 2.4 (H) Internal Quality Check 01/02/2023 Acceptable ASSESSMENT/PLAN: 1. Type 2 diabetes mellitus with stage 3b chronic kidney disease, without long-term current use of insulin (HCC) - ICD9: 250.40, 585.3, ICD10: E11.22, N18.32 (primary diagnosis) - Uncontrolled - Continue current medications - Counseled on healthy diet and regular exercise - Discussed need for and benefit of weight loss. BMI 36.54 kg/(m^2) - F/u in 3 months with labs - COMP METABOLIC PANEL - HGB A1C 2. Essential hypertension, benign - ICD9: 401.1, ICD10: I10 - Controlled today in office - Continue current medications - Recommend home blood pressure monitoring, to bring results to next visit - Encouraged sodium restriction, DASH or Mediterranean diet - Recommend regular aerobic exercise - COMP METABOLIC PANEL - LIPID PANEL BASIC 3. Stage 3b chronic kidney disease (HCC) - ICD9: 585.3, ICD10: N18.32 - Cont monitoring through labs - COMP METABOLIC PANEL 4. Hyperlipidemia, unspecified hyperlipidemia type - ICD9: 272.4, ICD10: E78.5 - Controlled - Continue current medications - Counseled on healthy diet and regular exercise - COMP METABOLIC PANEL - LIPID PANEL BASIC 5. Paroxysmal atrial fibrillation (HCC) - ICD9: 427.31, ICD10: I48.0 - Discussed changes today - Home INR today 6. Anxiety - ICD9: 300.00, ICD10: F41.9 - Continue current medication regimen. 7. Hypothyroidism, unspecified type - ICD9: 244.9, ICD10: E03.9 - Instructed patient on importance of taking on an empty stomach either first thing in the morning or at bedtime. Continue current medication regimen. - TSH BLD 8. Cardiomyopathy, unspecified type (HCC) - ICD9: 425.4, ICD10: I42.9 - Continue current medication regimen. 9. Cellulitis of skin - ICD9: 682.9, ICD10: L03.90 - Continue current medication regimen. 10. Gastroesophageal reflux disease without esophagitis - ICD9: 530.81, ICD10: K21.9 - Stable - Continue current medication regimen. 11. Asthma, unspecified asthma severity, unspecified whether complicated, unspecified whether persistent - ICD9: 493.90, ICD10: J45.909 - Stable 12. Lumbar pain - ICD9: 724.2, ICD10: M54.50 - Pt to call if needing referral to [facility] - CONSULT TO PAIN MGT 3 mo f/u with labs. I agree with the Chief Complaint, ROS, and Past Histories independently gathered by the clinical client support manager and the remaining scribed note accurately describes my personal service to the patient. Medical Decision Making: Problems: Moderate: 2+ stable chronic illnesses Data: Unique test result(s) reviewed: 3+ Unique test(s) ordered: 3+ Risk: Moderate: Drug management Medical Decision Making Level: 4 - Moderate Saumya Farias MD The documentation for this note was completed by Lamar Love Ma acting as scribe for Saumya Farias MD. February 15, 2023 9:29 AM. Lamar Love Ma documented in this encounter [facility] 01-19-2023 Miscellaneous Notes OK to refill as ordered Saumya Farias MD Arvin--11/16/22 Nov--02/15/23 Last refill--11/16/22 45 with 5 refills Last labs--11/16/22 Patient has been identified by name and date of : Yes Last office visit in this department: 11/16/2022 RX INSTRUCTIONS: Patient aware RX will be sent to pharmacy. No need to notify patient. Patient phones requesting refills as follows: Requested Prescriptions Pending Prescriptions Disp Refills warfarin (COUMADIN) 2 mg tablet 45 tablet 5 Si mg daily except NONE on Sunday or as directed Please review and advise. Amarilys Ha Pss documented in this encounter [facility] 01-16-2023 Note HNO ID: [id number] Author: Saumya Farias MD Service: ? Author Type: Physician Type: Progress Notes Filed: 01/16/2023 4:26 PM Note Text: I agree with the advice given; stay same and recheck in 4 weeks Saumya Farias MD [facility] 01-16-2023 Note HNO ID: [id number] Author: Vanessa Mckeon RN Service: ? Author Type: ? Type: Progress Notes Filed: 01/16/2023 4:26 PM Note Text: patient had inr completed at [facility] patients inr is 2.4 (patients inr range is 2.0-3.0) patient is currently taking none on Tues and 2mg all other days patients last dose change unknown patient has had no changes in medication and no missed doses and no change in diet Advised patient to continue on the same dose(s) and that they would only be contacted regarding dosage and follow up instructions after review with provider, if a change is needed. Written instructions given and patient verbalized understanding. Presently scheduled in 4 weeks (02/15/23 - pt has appt with pcp also this day) for follow up INR. [facility] 01-02-2023 Note HNO ID: [id number] Author: Saumya Farias MD Service: ? Author Type: Physician Type: Progress Notes Filed: 01/02/2023 4:42 PM Note Text: I agree with the advice given; stay same and recheck in 2 weeks Saumya Farias MD [facility] 01-02-2023 Note HNO ID: [id number] Author: Vanessa Mckeon RN Service: ? Author Type: ? Type: Progress Notes Filed: 01/02/2023 4:42 PM Note Text: patient had inr completed at [facility] patients inr is 2.4 (patients inr range is 2.0-3.0) patient is currently taking none on Tues and 2mg all other days patients last dose change was on 11/16/22 due to a low level of 1.7 (dose at that time was none on Tues,Thurs and 2mg all other days) patient has had no changes in medication and no uninstructed missed doses and no change in diet Advised patient to continue on the same dose(s) and that they would only be contacted regarding dosage and follow up instructions after review with provider, if a change is needed. Written instructions given and patient verbalized understanding. Presently scheduled in 2 weeks (01/16/23 - spouse has appt this day also) for follow up INR. [facility] 12-12-2022 Note HNO ID: [id number] Author: Saumya Farias MD Service: ? Author Type: Physician Type: Progress Notes Filed: 12/12/2022 5:39 PM Note Text: I agree with the advice given; stay same and recheck in 2 weeks Saumya Farias MD [facility] 12-12-2022 Note HNO ID: [id number] Author: Vanessa Mckeon RN Service: ? Author Type: ? Type: Progress Notes Filed: 12/12/2022 5:39 PM Note Text: patient had inr completed at [facility] patients inr is 3.0 (patients inr range is 2.0-3.0) patient is currently taking none on Tues and 2mg all other days patients last dose change was on 11/16/22 due to a low level of 1.7 (dose at that time was none on Tues,Thurs and 2mg all other days) patient has had no changes in medication and no uninstructed missed doses and no change in diet Advised patient to continue on the same dose(s) and that they would only be contacted regarding dosage and follow up instructions after review with provider, if a change is needed. Written instructions given and patient verbalized understanding. Presently scheduled in 2 weeks (12/26/22) for follow up INR. [facility] 12-12-2022 History of Presen t illness Narrative I agree with the advice given; stay same and recheck in 2 weeks Saumya Farias MD patient had inr completed at [facility] patients inr is 3.0 (patients inr range is 2.0-3.0) patient is currently taking none on Tues and 2mg all other days patients last dose change was on 11/16/22 due to a low level of 1.7 (dose at that time was none on Tues,Thurs and 2mg all other days) patient has had no changes in medication and no uninstructed missed doses and no change in diet Advised patient to continue on the same dose(s) and that they would only be contacted regarding dosage and follow up instructions after review with provider, if a change is needed. Written instructions given and patient verbalized understanding. Presently scheduled in 2 weeks (12/26/22) for follow up INR. documented in this encounter [facility] 12-11-2022 Miscellaneous Notes Noted Saumya Farias MD Donna with [facility] calls to report pt has been discharged from HC services. Pt has met all his goals. Wounds are healed. Tracey Ko LPN documented in this encounter [facility] 11-28-2022 Note HNO ID: [id number] Author: Saumya Farias MD Service: ? Author Type: Physician Type: Progress Notes Filed: 11/28/2022 4:44 PM Note Text: I agree with the advice given; stay same and recheck in 2 weeks Saumya Farias MD [facility] 11-28-2022 Note HNO ID: [id number] Author: Vanessa Mckeon RN Service: ? Author Type: ? Type: Progress Notes Filed: 11/28/2022 4:44 PM Note Text: patient had inr completed at [facility] patients inr is 2.8 (patients inr range is 2.0-3.0) patient is currently taking none on Tues and 2mg all other days patients last dose change was on 11/16/22 due to a low level of 1.7 (dose at that time was none on Tues,Thurs and 2mg all other days) patient has had no changes in medication except for coumadin and no uninstructed missed doses and no change in diet Advised patient to continue on the same dose(s) and that they would only be contacted regarding dosage and follow up instructions after review with provider, if a change is needed. Written instructions given and patient verbalized understanding. Presently scheduled in 2 weeks (12/11/22) for follow up INR. [facility] 11-28-2022 History of Presen t illness Narrative I agree with the advice given; stay same and recheck in 2 weeks Saumya Farias MD patient had inr completed at [facility] patients inr is 2.8 (patients inr range is 2.0-3.0) patient is currently taking none on Tues and 2mg all other days patients last dose change was on 11/16/22 due to a low level of 1.7 (dose at that time was none on Tues,Thurs and 2mg all other days) patient has had no changes in medication except for coumadin and no uninstructed missed doses and no change in diet Advised patient to continue on the same dose(s) and that they would only be contacted regarding dosage and follow up instructions after review with provider, if a change is needed. Written instructions given and patient verbalized understanding. Presently scheduled in 2 weeks (12/11/22) for follow up INR. documented in this encounter [facility] 11-28-2022 Miscellaneous Notes OK to refill as ordered Saumya Farias MD Patient has been identified by name and date of : Yes, Provider Aman Date 11/28/22 Time 1028am Patient phones for refill(s): Requested Prescriptions Pending Prescriptions Disp Refills LORazepam (ATIVAN) 0.5 mg 60 tablet 2 Sig: Take 1 tablet by mouth twice daily as needed for up to 90 days. Date of last office visit in primary care: Last 2 Encounter Wt Readings: Date: Wt: 11/16/2022 97.8 kg (215 lb 11.2 oz) 10/12/2022 95.3 kg (210 lb) Previous labs/tests for medication: Not applicable Please advise. Thank you. Vanessa Grassbaugh RN documented in this encounter [facility] 11-28-2022 Miscellaneous Notes Lionel/Chao called and notified of PCP's response below, verbalized understanding. Lamar Love Ma Continue band aid and vaseline; monitor OK for additional visits as requested Saumya Farias MD nurse Lionel from [facility] reports pt has a small wound on left ankle - 2 1/2 cm X 3 cm. Appears to be from shoe rubbing on skin. Pt was using vaseline & a band aid. Lionel reports aree now looks damp & moist, asking if anything different should be done? Lionel states he would like to add an add'l 1X wk X 3 wks visits if approved. Amarilys Reynoso LPN documented in this encounter [facility] 11-27-2022 Miscellaneous Notes Noted Saumya Farias MD David- PT- [facility]- reporting to pcp- patient was discharged today from PT. Patient is doing well and met his goals. documented in this encounter [facility] 11-16-2022 Note HNO ID: [id number] Author: Martha Stewart Ma Service: ? Author Type: ? Type: Progress Notes Filed: 11/16/2022 1:33 PM Note Text: Detailed message left on pt identified VM. Tracker and med list updated. Martha Stewart Ma' [facility] 11-16-2022 Note HNO ID: [id number] Author: Saumya Farias MD Service: ? Author Type: Physician Type: Progress Notes Filed: 11/16/2022 1:33 PM Note Text: Go to none on Tues; 2mg all other days Recheck in 2 weeks as planned Saumya Farias MD [facility] 11-16-2022 Note HNO ID: [id number] Author: Vanessa Mckeon RN Service: ? Author Type: ? Type: Progress Notes Filed: 11/16/2022 1:33 PM Note Text: patient had inr completed at [facility] patients inr is 1.7 (patients inr range is 2.0-3.0) patient is currently taking none on Tues,Thurs and 2mg all other days patients last dose change unknown patient has had no changes in medication and no missed doses and no change in diet Advised patient that they would be contacted regarding medication dose and when to follow up after information is reviewed by provider. After provider review please contact the patient with information and schedule follow up appointment with coumadin clinic. ok to leave a detailed message if no answer FYI- patient has been scheduled for a 2 week follow up inr on 11/28/22 [facility] 11-16-2022 History of Presen t illness Narrative Detailed message left on pt identified VM. Tracker and med list updated. Martha Stewart Ma' Go to none on Tues; 2mg all other days Recheck in 2 weeks as planned Saumya Farias MD patient had inr completed at [facility] patients inr is 1.7 (patients inr range is 2.0-3.0) patient is currently taking none on Tues,Thurs and 2mg all other days patients last dose change unknown patient has had no changes in medication and no missed doses and no change in diet Advised patient that they would be contacted regarding medication dose and when to follow up after information is reviewed by provider. After provider review please contact the patient with information and schedule follow up appointment with coumadin clinic. ok to leave a detailed message if no answer FYI- patient has been scheduled for a 2 week follow up inr on 11/28/22 documented in this encounter [facility] 11-16-2022 Note HNO ID: [id number] Author: Saumya Farias MD Service: ? Author Type: Physician Type: Progress Notes Filed: 11/16/2022 5:51 PM Note Text: Chief Complaint Patient presents with: Follow Up HPI Norris Stein is a 82 year old male who presents here today for 1 month follow up. Still getting nursing and therapy. No bowel, Gi, or urinary issues. Taking Flomax 0.4 mg daily. GERD: Sx controlled on Prilosec 20 mg daily. Cellulitis: both legs; improving. Edema: stable; addie legs: Taking Lasix 40 mg BID. Holding Aldactone 25 mg daily. Lipid/CAD: Taking Lipitor 40 mg daily and Plavix 75 mg daily. HTN: Follows with [facility]. Checking BP at home once or twice a day with readings running 124/74. Taking Pacerone 100 mg daily and Lopressor 50 mg 1.5 tablets BID. Currently holding Norvasc 10 mg daily, Spironolactone and Diovan 80 mg daily. A:fib: INR and coumadin managed by PCP and coumadin clinic. Thyroid: Taking Synthroid 75 mcg daily. DM: checking BS. Taking Lantus variable amounts based on blood sugars; 0-20 units daily.. Also taking Jardiance 10 mg daily. He would like to eventually get off the Insulin. Checking BS at home with FBS running 123. Checking 2-3 x a day. Past medical history, appointments, medications, allergies reviewed. Previous Medical History PAST MEDICAL HISTORY Diagnosis Date DM (diabetes mellitus) (HCC) Essential hypertension, benign Other and unspecified hyperlipidemia Other specified family circumstances Previous Surgical History PAST SURGICAL HISTORY Procedure Laterality Date COLONOSCOPY FLX DX W/COLLJ SPEC WHEN PFRMD 04/08/15 Colonoscopy Family History No family history on file. Patient Allergies ALLERGIES No Known Allergies Current Medications Current Outpatient Medications on File Prior to Visit Medication Sig clopidogrel (PLAVIX) 75 mg tablet Take 1 tablet by mouth once daily. predniSONE (DELTASONE) 5 mg tablet Take 2 tablets by mouth once daily. tamsulosin (FLOMAX) 0.4 mg Take 1 capsule by mouth daily at bedtime. insulin glargine (LANTUS SOLOSTAR U-100 INSULIN) 100 unit/mL (3 mL) Inject 25 Units subcutaneously daily at bedtime. furosemide (LASIX) 40 mg tablet Take 1 tablet by mouth twice daily. empagliflozin (JARDIANCE) 10 mg tablet Take 1 tablet by mouth once daily. Take 1 tablet once daily in the morning warfarin (COUMADIN) 2 mg tablet 2 mg daily except NONE on Sunday/ or as directed amiodarone (PACERONE) 100 mg tablet Take 1 tablet by mouth once daily. amLODIPine (NORVASC) 10 mg tablet Take 1 tablet by mouth once daily. metoprolol tartrate, short acting, (LOPRESSOR) 50 mg tablet Take 1.5 tablets by mouth twice daily. levothyroxine (SYNTHROID) 75 mcg tablet Take 1 tablet by mouth once daily. Take on empty stomach. For Thyroid. spironolactone (ALDACTONE) 25 mg tablet Take 1 tablet by mouth once daily. clindamycin (CLEOCIN) 300 mg capsule Take 1 capsule by mouth four times daily. atorvastatin (LIPITOR) 40 mg tablet Take 1 tablet by mouth daily at bedtime. ferrous sulfate 325 mg (65 mg iron) tablet Take 1 tablet by mouth twice daily with meals. Cholecalciferol, Vitamin D3, 25 mcg (1,000 unit) cap Take 1 capsule by mouth once daily. valsartan (DIOVAN) 80 mg tablet Take 1 tablet by mouth once daily. omeprazole (PRILOSEC) 20 mg capsule Take 1 capsule by mouth once daily. cetirizine (ZYRTEC) 10 mg tablet Take 1 tablet by mouth once daily. CPAP Initiate CPAP @ 15 cm of water with humidification. Mask (per patient preference) optional chin strap (if indicated) , filters, tubing, humidifier and lifetime supplies. ASPIRIN 81 MG ORAL TAB Take one(1) tablet daily. No current facility-administered medications on file prior to visit. Social History Social History Tobacco Use Smoking status: Never Smokeless tobacco: Never Vaping Use Vaping Use: Never used Substance Use Topics Alcohol use: Yes Comment: occasional sip of wine Drug use: No EXAM: BP 118/68 Pulse 60 Resp 18 Wt 97.8 kg (215 lb 11.2 oz) BMI 35.35 kg/m? General Appearance: Well appearing, alert, in no acute distress, well-hydrated, well nourished.. Lungs: Lungs clear to auscultation. No wheezing, rhonchi, rales.. Health Maintenance List SPIROMETRY Never done SHINGRIX VACCINE(1 of 2) Never done DTAP,TDAP,TD(2 - Td or Tdap) due on 06/25/2017 URINE ALBUMIN:CREATININE RATIO due on 06/14/2022 DIABETIC FOOT EXAM due on 06/20/2022 ADVANCE DIRECTIVE DISCUSSION due on 08/06/2022 DEPRESSION ASSESSMENT Never done HBA1C due on 09/12/2022 COVID-19 VACCINE(1) due on 03/23/2023 DILATED RETINAL EXAM due on 02/03/2023 INFLUENZA(Season Ended) due on 04/06/2023 LDL CHOLESTEROL due on 06/12/2023 SERUM CREATININE due on 06/12/2023 HEMOGLOBIN/HEMATOCRIT due on 06/12/2023 ANNUAL PCP TEAM CHRONIC DISEASE VISIT due on 10/13/2023 BP CONTROLLED (<130/80) due on 10/13/2023 PNEUMOCOCCAL: 65+ Completed Data rev (more content not included)... [facility] 11-16-2022 History of Presen t illness Narrative Chief Complaint Patient presents with: Follow Up HPI Norris Stein is a 82 year old male who presents here today for 1 month follow up. Still getting nursing and therapy. No bowel, Gi, or urinary issues. Taking Flomax 0.4 mg daily. GERD: Sx controlled on Prilosec 20 mg daily. Cellulitis: both legs; improving. Edema: stable; addie legs: Taking Lasix 40 mg BID. Holding Aldactone 25 mg daily. Lipid/CAD: Taking Lipitor 40 mg daily and Plavix 75 mg daily. HTN: Follows with [facility]. Checking BP at home once or twice a day with readings running 124/74. Taking Pacerone 100 mg daily and Lopressor 50 mg 1.5 tablets BID. Currently holding Norvasc 10 mg daily, Spironolactone and Diovan 80 mg daily. A:fib: INR and coumadin managed by PCP and coumadin clinic. Thyroid: Taking Synthroid 75 mcg daily. DM: checking BS. Taking Lantus variable amounts based on blood sugars; 0-20 units daily.. Also taking Jardiance 10 mg daily. He would like to eventually get off the Insulin. Checking BS at home with FBS running 123. Checking 2-3 x a day. Past medical history, appointments, medications, allergies reviewed. Previous Medical History PAST MEDICAL HISTORY Diagnosis Date DM (diabetes mellitus) (HCC) Essential hypertension, benign Other and unspecified hyperlipidemia Other specified family circumstances Previous Surgical History PAST SURGICAL HISTORY Procedure Laterality Date COLONOSCOPY FLX DX W/COLLJ SPEC WHEN PFRMD 04/08/15 Colonoscopy Family History No family history on file. Patient Allergies ALLERGIES No Known Allergies Current Medications Current Outpatient Medications on File Prior to Visit Medication Sig clopidogrel (PLAVIX) 75 mg tablet Take 1 tablet by mouth once daily. predniSONE (DELTASONE) 5 mg tablet Take 2 tablets by mouth once daily. tamsulosin (FLOMAX) 0.4 mg Take 1 capsule by mouth daily at bedtime. insulin glargine (LANTUS SOLOSTAR U-100 INSULIN) 100 unit/mL (3 mL) Inject 25 Units subcutaneously daily at bedtime. furosemide (LASIX) 40 mg tablet Take 1 tablet by mouth twice daily. empagliflozin (JARDIANCE) 10 mg tablet Take 1 tablet by mouth once daily. Take 1 tablet once daily in the morning warfarin (COUMADIN) 2 mg tablet 2 mg daily except NONE on Sunday/ or as directed amiodarone (PACERONE) 100 mg tablet Take 1 tablet by mouth once daily. amLODIPine (NORVASC) 10 mg tablet Take 1 tablet by mouth once daily. metoprolol tartrate, short acting, (LOPRESSOR) 50 mg tablet Take 1.5 tablets by mouth twice daily. levothyroxine (SYNTHROID) 75 mcg tablet Take 1 tablet by mouth once daily. Take on empty stomach. For Thyroid. spironolactone (ALDACTONE) 25 mg tablet Take 1 tablet by mouth once daily. clindamycin (CLEOCIN) 300 mg capsule Take 1 capsule by mouth four times daily. atorvastatin (LIPITOR) 40 mg tablet Take 1 tablet by mouth daily at bedtime. ferrous sulfate 325 mg (65 mg iron) tablet Take 1 tablet by mouth twice daily with meals. Cholecalciferol, Vitamin D3, 25 mcg (1,000 unit) cap Take 1 capsule by mouth once daily. valsartan (DIOVAN) 80 mg tablet Take 1 tablet by mouth once daily. omeprazole (PRILOSEC) 20 mg capsule Take 1 capsule by mouth once daily. cetirizine (ZYRTEC) 10 mg tablet Take 1 tablet by mouth once daily. CPAP Initiate CPAP @ 15 cm of water with humidification. Mask (per patient preference) optional chin strap (if indicated) , filters, tubing, humidifier and lifetime supplies. ASPIRIN 81 MG ORAL TAB Take one(1) tablet daily. No current facility-administered medications on file prior to visit. Social History Social History Tobacco Use Smoking status: Never Smokeless tobacco: Never Vaping Use Vaping Use: Never used Substance Use Topics Alcohol use: Yes Comment: occasional sip of wine Drug use: No EXAM: BP 118/68 Pulse 60 Resp 18 Wt 97.8 kg (215 lb 11.2 oz) BMI 35.35 kg/m General Appearance: Well appearing, alert, in no acute distress, well-hydrated, well nourished.. Lungs: Lungs clear to auscultation. No wheezing, rhonchi, rales.. Health Maintenance List SPIROMETRY Never done SHINGRIX VACCINE(1 of 2) Never done DTAP,TDAP,TD(2 - Td or Tdap) due on 06/25/2017 URINE ALBUMIN:CREATININE RATIO due on 06/14/2022 DIABETIC FOOT EXAM due on 06/20/2022 ADVANCE DIRECTIVE DISCUSSION due on 08/06/2022 DEPRESSION ASSESSMENT Never done HBA1C due on 09/12/2022 COVID-19 VACCINE(1) due on 03/23/2023 DILATED RETINAL EXAM due on 02/03/2023 INFLUENZA(Season Ended) due on 04/06/2023 LDL CHOLESTEROL due on 06/12/2023 SERUM CREATININE due on 06/12/2023 HEMOGLOBIN/HEMATOCRIT due on 06/12/2023 ANNUAL PCP TEAM CHRONIC DISEASE VISIT due on 10/13/2023 BP CONTROLLED (<130/80) due on 10/13/2023 PNEUMOCOCCAL: 65+ Completed Data reviewed Appointment on 11/13/2022 Component Date Value Hemoglobin A1C 11/13/2022 7.4 (A) Estimated Average Glucose 11/13/2022 166 Glucose 11/13/2022 154 (A) BUN 11/13/2022 50 (A) Creatinine 11/13/2022 2.11 (A) Sodium 11/13/2022 140 Potassium 11/13/2022 4.2 Chloride 11/13/2022 100 CO2 11/13/2022 27 Anion Gap 11/13/2022 13 Calcium, Total 11/13/2022 10.2 Estimated Glomerular Wiley* 11/13/2022 31 (A) TSH 11/13/2022 2.700 Results Only on 2022 Component Date Value INR (POCT) 2022 2.6 (A) Internal Quality Check 2022 Acceptable Results Only on 10/12/2022 Component Date Value INR (POCT) 10/12/2022 2.4 (A) Internal Quality Check 10/12/2022 Acceptable ASSESSMENT/PLAN: 1. Type 2 diabetes mellitus with stage 3b chronic kidney disease, without long-term current use of insulin (HCC) - ICD9: 250.40, 585.3, ICD10: E11.22, N18.32 (primary diagnosis) - Controlled - Continue current medications - COMP METABOLIC PANEL - HGB A1C - CBC 2. Stage 3b chronic kidney disease (HCC) - ICD9: 585.3, ICD10: N18.32 Follows with Nephrology - COMP METABOLIC PANEL - CBC 3. Hypothyroidism, acquired - ICD9: 244.9, ICD10: E03.9 - Instructed patient on importance of taking on an empty stomach either first thing in the morning or at bedtime. - TSH BLD 4. Chronic systolic heart failure (HCC) - ICD9: 428.22, ICD10: I50.22 Continue current medications. 5. Chronic atrial fibrillation (HCC) - ICD9: 427.31, ICD10: I48.20 Continue current medications. 6. Hypertensive heart disease with chronic systolic congestive heart failure (HCC) - ICD9: 402.91, 428.22, ICD10: I11.0, I50.22 7. Hyperlipidemia, unspecified hyperlipidemia type - ICD9: 272.4, ICD10: E78.5 - LIPID PANEL BASIC 8. Anxiety - ICD9: 300.00, ICD10: F41.9 Controlled Follow up in 3 months with albs prior I agree with the Chief Complaint, ROS, and Past Histories independently gathered by the clinical client support manager and the remaining scribed note accurately describes my personal service to the patient. Medical Decision Making: Problems: Moderate: 2+ stable chronic illnesses Data: Unique test result(s) reviewed: 3+ Unique test(s) ordered: 3+ Risk: Moderate: Drug management Medical Decision Making Level: 4 - Moderate Saumya Farias MD The documentation for this note was completed by Martha Stewart Ma acting as scribe for Saumya Farias MD. November 16, 2022 9:52 AM. Martha Stewart Ma documented in this encounter [facility] 11-10-2022 Miscellaneous Notes Noted Saumya Farias MD Marquise from [facility] patient is doing well and is being discharged from OT services. documented in this encounter [facility] 11-09-2022 Miscellaneous Notes Detailed message left on Gia's secure and identified VM of message below. Radha Nelson RN Noted and agree Saumya Farias MD Gia with [facility] calling to request approval for patient's Nursing plan of care. [facility] Nursing would like to see patient one time per week for 2 weeks for incision monitoring, med review and blood pressure monitoring after stent placement. Please call Gia at [phone]. Thank you. documented in this encounter [facility] 04-04-2023 Miscellaneous Notes Noted Saumya Farias MD David PT from [facility] calls and states that patient had Carotid artery stent placed on Sunday and was in hospital for a couple of days. David saw patient today for a resumption of care for physical therapy. David states that there has been no changes with patient and physical therapy. Patient had requested David to come back in 3 weeks and then patient will more than likely be discharged from physical therapy services. Valarie Braswell RN documented in this encounter [facility] 11-06-2022 Miscellaneous Notes Attila notified and voiced understanding. OK for orders to continue with nursing, PT and OT as requested Saumya Farias MD Attila with [facility] called to let you know pt was at [facility] for a couple days and just d/c and they need resumption orders to continue with nursing, PT and OT. Dx right carotid artery stent placement . Please advise Attila. Kristina Rodriguez LPN documented in this encounter [facility] 10-27-2022 Miscellaneous Notes Noted and agree Saumya Farias MD David PT with [facility] called in and report he did the reassessment on the Pt and he is making good progress. He states they will see him for two additional visits every other week to span 4 weeks. documented in this encounter [facility] 2022 Note HNO ID: [id number] Author: Saumya Farias MD Service: ? Author Type: Physician Type: Progress Notes Filed: 2022 2:54 PM Note Text: I agree with the advice given; stay same and recheck in 3 weeks Saumya Farias MD [facility] 2022 Note HNO ID: [id number] Author: Vanessa Mckeon RN Service: ? Author Type: ? Type: Progress Notes Filed: 2022 2:54 PM Note Text: patient had inr completed at [facility] patients inr is 2.6 (patients inr range is 2.0-3.0) patient is currently taking none Tues,Thurs and 2mg all other days patients last dose change unknown as this is the dose patient was discharged from the hospital patient has had no changes in medication and no uninstructed missed doses and no change in diet Advised patient to continue on the same dose(s) and that they would only be contacted regarding dosage and follow up instructions after review with provider, if a change is needed. Written instructions given and patient verbalized understanding. Presently scheduled in 3 weeks (11/16/22 - pt has appt with pcp this day also) for follow up INR. [facility] 10-23-2022 Miscellaneous Notes The following approved medication requests have been transmitted electronically. Requested Prescriptions Pending Prescriptions Disp Refills clopidogrel (PLAVIX) 75 mg tablet 90 tablet 3 Sig: Take 1 tablet by mouth once daily. predniSONE (DELTASONE) 5 mg tablet 180 tablet 3 Sig: Take 2 tablets by mouth once daily. tamsulosin (FLOMAX) 0.4 mg 90 capsule 3 Sig: Take 1 capsule by mouth daily at bedtime. insulin glargine (LANTUS SOLOSTAR U-100 INSULIN) 100 unit/mL (3 mL) 8 Each 3 Sig: Inject 25 Units subcutaneously daily at bedtime. furosemide (LASIX) 40 mg tablet 180 tablet 3 Sig: Take 1 tablet by mouth twice daily. empagliflozin (JARDIANCE) 10 mg tablet 90 tablet 3 Sig: Take 1 tablet by mouth once daily. Take 1 tablet once daily in the morning Anam Strickland APRN.COLIN Patient has been identified by name and date of : Yes Requested Prescriptions Pending Prescriptions Disp Refills clopidogrel (PLAVIX) 75 mg tablet 90 tablet 3 Sig: Take 1 tablet by mouth once daily. predniSONE (DELTASONE) 5 mg tablet 180 tablet 3 Sig: Take 2 tablets by mouth once daily. tamsulosin (FLOMAX) 0.4 mg 90 capsule 3 Sig: Take 1 capsule by mouth daily at bedtime. insulin glargine (LANTUS SOLOSTAR U-100 INSULIN) 100 unit/mL (3 mL) 3 Sig: Inject 25 Units subcutaneously daily at bedtime. furosemide (LASIX) 40 mg tablet 180 tablet 3 Sig: Take 1 tablet by mouth twice daily. empagliflozin (JARDIANCE) 10 mg tablet 90 tablet 3 Sig: Take 1 tablet by mouth once daily. Take 1 tablet once daily in the morning RX INSTRUCTIONS: please note: on 10/12 - these were ALL LISTED MED UPDATE. Patient needs these sent today. Patient requesting a call when RX is approved and sent to the pharmacy. Please call patient at: [phone] Naomi Alejandro Pss documented in this encounter [facility] 10-20-2022 Miscellaneous Notes OK to refill as ordered Saumya Farias MD Patient has been identified by name and date of : Yes, Ewa Nelson RN Date 10/20/2022 Time 4:40 pm Pharmacy phones for refill(s): Requested Prescriptions Pending Prescriptions Disp Refills metoprolol tartrate, short acting, (LOPRESSOR) 50 mg tablet 90 tablet 11 Sig: Take 1.5 tablets by mouth twice daily. Patient went to [facility] and it wasn't available. Pharmacy called to request new prescription. Date of last office visit with pcp: 10/12/2022 Future appt: 11/16/2022 Last 2 Encounter Wt Readings: Date: Wt: 10/12/2022 95.3 kg (210 lb) 06/22/2022 112.8 kg (248 lb 11.2 oz) Previous labs/tests for medication: Blood Pressure: BUN (mg/dL) Date Value 06/12/2022 36 06/14/2021 29 Sodium (mmol/L) Date Value 06/12/2022 140 06/14/2021 139 Last 1 Encounter BP Readings: Date: BP: 10/12/2022 120/68 Liver Function: ALT (U/L) Date Value 06/12/2022 29 06/14/2021 36 AST (U/L) Date Value 06/12/2022 23 06/14/2021 25 Please advise. Thank you. Ewa Nelson RN documented in this encounter [facility] 10-20-2022 Miscellaneous Notes Pt daughter Ratna notified and voiced understanding. Martha Stewart Ma OK to refill as ordered He should be taking the metoprolol tartrate Saumya Farias MD Daughter Ratna is calling on patient's behalf for medications. She does have a question about patient's metoprolol. He still has a bottle that states metoprolol succinate, but was recently prescribed metoprolol tartrate. Can you please call her to clarify which he should be taking? Ratna [phone] Pharmacy verified in [facility] Patient has been identified by name and date of : Yes Patient aware RX will be sent to pharmacy. No need to notify patient. Daughter phones for refills: Requested Prescriptions Pending Prescriptions Disp Refills warfarin (COUMADIN) 2 mg tablet 45 tablet 5 Si mg daily except NONE on Sunday/ or as directed amiodarone (PACERONE) 100 mg tablet Sig: Take 1 tablet by mouth once daily. amLODIPine (NORVASC) 10 mg tablet 90 tablet 3 Sig: Take 1 tablet by mouth once daily. Date of last office visit : 10/12/2022 Labs-11/29/21 Date of next office visit : 11/16/2022 Last 2 Encounter Wt Readings: Date: Wt: 10/12/2022 95.3 kg (210 lb) 06/22/2022 112.8 kg (248 lb 11.2 oz) Not applicable Please advise. Analisa Fuentes documented in this encounter [facility] 10-19-2022 Miscellaneous Notes The following approved medication requests have been transmitted electronically. Requested Prescriptions Pending Prescriptions Disp Refills levothyroxine (SYNTHROID) 75 mcg tablet 90 tablet 3 Sig: Take 1 tablet by mouth once daily. Take on empty stomach. For Thyroid. Anam Strickland APRN.COLIN Patient has been identified by name and date of : Yes, Provider EM Pharmacy phones for refill(s): Requested Prescriptions Pending Prescriptions Disp Refills levothyroxine (SYNTHROID) 75 mcg tablet 90 tablet 3 Sig: Take 0.5 tablets by mouth once daily. Take on empty stomach. For Thyroid. PHARMACY CALLED TO REQUEST 50 MCG (HOSPITAL CHANGED TO 75 MCG WHILE PATIENT WAS ADMITTED) Date of last office visit in primary care: 10/12/22 Last 2 Encounter Wt Readings: Date: Wt: 10/12/2022 95.3 kg (210 lb) 06/22/2022 112.8 kg (248 lb 11.2 oz) Previous labs/tests for medication: Not applicable Please advise. Thank you. Aundrea De Jesus documented in this encounter [facility] 10-13-2022 Miscellaneous Notes David with [facility] notified of PCP's agreement. They will forward order at later time for signature. Noted and agree Saumya Farias MD David PT with [facility] called and reports they did their reassessment of patient and he is doing well, but would benefit from additional gait training and balance training. The will be seeing him once a week for 2 weeks. documented in this encounter [facility] 10-12-2022 Note HNO ID: [id number] Author: Martha Stewart Ma Service: ? Author Type: ? Type: Progress Notes Filed: 10/13/2022 8:46 AM Note Text: Pt notified. Martha Stewart Ma [facility] 10-12-2022 Note HNO ID: [id number] Author: Saumya Farias MD Service: ? Author Type: Physician Type: Progress Notes Filed: 10/13/2022 8:46 AM Note Text: I agree with the advice given; stay same and recheck in 2 weeks Saumya Farias MD [facility] 10-12-2022 History of Presen t illness Narrative Pt notified. Martha Stewart Ma I agree with the advice given; stay same and recheck in 2 weeks Saumya Farias MD patient had inr completed at [facility] patients inr is 2.4 (patients inr range is 2.0-3.0) patient is currently taking none on Tues,Thurs and 2mg all other days patients last dose change unknown as this is the dose patient was instructed to start on at hospital discharge (previous dosing was none Mon,Thurs and 2mg all other days) patient has had no changes in medications except for coumadin and no change in diet Advised patient to continue on the same dose(s) and that they would only be contacted regarding dosage and follow up instructions after review with provider, if a change is needed. Written instructions given and patient verbalized understanding. Presently scheduled in 2 weeks (10/26/22) for follow up INR since patient was just discharged from the hospital documented in this encounter [facility] 10-12-2022 Note HNO ID: [id number] Author: Vanessa Mckeon RN Service: ? Author Type: ? Type: Progress Notes Filed: 10/13/2022 8:46 AM Note Text: patient had inr completed at [facility] patients inr is 2.4 (patients inr range is 2.0-3.0) patient is currently taking none on Tues,Thurs and 2mg all other days patients last dose change unknown as this is the dose patient was instructed to start on at hospital discharge (previous dosing was none Mon,Thurs and 2mg all other days) patient has had no changes in medications except for coumadin and no change in diet Advised patient to continue on the same dose(s) and that they would only be contacted regarding dosage and follow up instructions after review with provider, if a change is needed. Written instructions given and patient verbalized understanding. Presently scheduled in 2 weeks (10/26/22) for follow up INR since patient was just discharged from the [facility] 10-12-2022 Miscellaneous Notes Order filed. Anam Strickland APRN.CNP patients orders for coumadin clinic inr's has at this time. new order has been pended for approval if possible so that patient can continue to get inr's completed thru the coumadin clinic. coumadin clinic nurse only needs called if order can not be approved. documented in this encounter [facility] 10-12-2022 Note HNO ID: [id number] Author: Saumya Farias MD Service: ? Author Type: Physician Type: Progress Notes Filed: 10/12/2022 12:00 PM Note Text: Chief Complaint Hospital follow up HPI Norris Stein is a 81 year old male who presents here today for Hospital Discharge Follow up.. Doing well at home, Has home health nursing and therapy. Monitoring sugars; taking lantus 20 unties hs and lispro 7 units tid; he would like to get off insulin if possible Also on Jardiance daily. Breathing stable. Legs improved with cellulitis; he does have an area of eryethema on left thigh, but feels that it is getting better. Below copied from [facility] [employer]: Chief Complaint: Shortness of Breath Narrative Narrative: 81-year-old male presents via EMS with his family because of acute mental status change. Per EMS, patient was seen in the emergency department last evening. Family states that they arrived home around 2 AM. He was seen for cellulitis and is currently on antibiotics, but when they went to awaken him this morning to give him pain medications, he was unresponsive . Per EMS, pulse ox was low in the 70s. He was placed on a nonrebreather and satting 91%. Blood sugar was checked at home and was normal in the 140's. They thought maybe he had left-sided weakness as he had difficulty moving his left arm this morning. This was noticed at 2 AM according to the family, over 7 hours ago. According to his family, since his history and physical is limited secondary to his current mental status, he has history of lumbar compression fractures x5. He has obstructive sleep apnea, and hypertension. He states that they were not admitted earlier this morning because there were no criteria on which to admit the patient as he was already on antibiotics. He does have history of congestive heart failure also. According to EMS, patient is also hypotensive. Summary of Care Provided Minutes Spent on Discharge: 35 Hospital Course: 81 year old male with below past medical history hospitalized for acute delirium secondary to sepsis from left lower extremity cellulitis, complicated by acute respiratory failure with hypoxia, acute kidney injury, right sided stroke, admitted to TCU with debility, here for rehabilitation, strengthening, prior to discharge home with . Resident home CPAP inadequate. [facility]. Past medical history, appointments, medications, allergies reviewed. Previous Medical History PAST MEDICAL HISTORY Diagnosis Date DM (diabetes mellitus) (HCC) Essential hypertension, benign Other and unspecified hyperlipidemia Other specified family circumstances Previous Surgical History PAST SURGICAL HISTORY Procedure Laterality Date COLONOSCOPY FLX DX W/COLLJ SPEC WHEN PFRMD 04/08/15 Colonoscopy Family History No family history on file. Patient Allergies ALLERGIES No Known Allergies Current Medications Current Outpatient Medications on File Prior to Visit Medication Sig clindamycin (CLEOCIN) 300 mg capsule Take 1 capsule by mouth four times daily. L.acidoph-B.animalis-B.longum (FLORAJEN DIGESTION) 15 billion cell cap Take 1 capsule by mouth once daily. atorvastatin (LIPITOR) 40 mg tablet Take 1 tablet by mouth daily at bedtime. levothyroxine (SYNTHROID) 75 mcg tablet Take 1 tablet by mouth once daily. Take on empty stomach. For Thyroid. warfarin (COUMADIN) 2 mg tablet 2 mg daily except NONE on Sunday/ or as directed furosemide (LASIX) 20 mg tablet Take 1 tablet by mouth three times daily. metoprolol tartrate, short acting, (LOPRESSOR) 50 mg tablet TAKE 1 TABLET BY MOUTH TWICE A DAY predniSONE (DELTASONE) 5 mg tablet Take 1 tablet by mouth once daily. potassium chloride ER (K-DUR, KLOR-CON) 20 mEq tablet Take 1 tablet by mouth once daily. ferrous sulfate 325 mg (65 mg iron) tablet Take 1 tablet by mouth twice daily with meals. Cholecalciferol, Vitamin D3, 25 mcg (1,000 unit) cap Take 1 capsule by mouth once daily. valsartan (DIOVAN) 80 mg tablet Take 1 tablet by mouth once daily. albuterol HFA (VENTOLIN HFA) 90 mcg/actuation inhaler Inhale 2 Puffs as instructed every 4 hours as needed for wheezing/shortness of breath. omeprazole (PRILOSEC) 20 mg capsule Take 1 capsule by mouth once daily. amLODIPine (NORVASC) 10 mg tablet Take 1 tablet by mouth once daily. cetirizine (ZYRTEC) 10 mg tablet Take 1 tablet by mouth once daily. amiodarone (PACERONE) 100 mg tablet Take 1 tablet by mouth once daily. CPAP Initiate CPAP @ 15 cm of water with humidification. Mask (per patient preference) optional chin strap (if indicated) , filters, tubing, humidifier and lifetime supplies. ASPIRIN 81 MG ORAL TAB Take one(1) tablet daily. No current facility-administered medications on file prior to visit. Social History Social History Tobacco Use Smoking status: Never Smokeless tobacco: Nev (more content not included)... [facility] 10-12-2022 History of Presen t illness Narrative Chief Complaint Hospital follow up HPI Norris Stein is a 81 year old male who presents here today for Hospital Discharge Follow up.. Doing well at home, Has home health nursing and therapy. Monitoring sugars; taking lantus 20 unties hs and lispro 7 units tid; he would like to get off insulin if possible Also on Jardiance daily. Breathing stable. Legs improved with cellulitis; he does have an area of eryethema on left thigh, but feels that it is getting better. Below copied from [facility] [employer]: Chief Complaint: Shortness of Breath Narrative Narrative: 81-year-old male presents via EMS with his family because of acute mental status change. Per EMS, patient was seen in the emergency department last evening. Family states that they arrived home around 2 AM. He was seen for cellulitis and is currently on antibiotics, but when they went to awaken him this morning to give him pain medications, he was unresponsive . Per EMS, pulse ox was low in the 70s. He was placed on a nonrebreather and satting 91%. Blood sugar was checked at home and was normal in the 140's. They thought maybe he had left-sided weakness as he had difficulty moving his left arm this morning. This was noticed at 2 AM according to the family, over 7 hours ago. According to his family, since his history and physical is limited secondary to his current mental status, he has history of lumbar compression fractures x5. He has obstructive sleep apnea, and hypertension. He states that they were not admitted earlier this morning because there were no criteria on which to admit the patient as he was already on antibiotics. He does have history of congestive heart failure also. According to EMS, patient is also hypotensive. Summary of Care Provided Minutes Spent on Discharge: 35 Hospital Course: 81 year old male with below past medical history hospitalized for acute delirium secondary to sepsis from left lower extremity cellulitis, complicated by acute respiratory failure with hypoxia, acute kidney injury, right sided stroke, admitted to TCU with debility, here for rehabilitation, strengthening, prior to discharge home with . Resident home CPAP inadequate. [facility]. Past medical history, appointments, medications, allergies reviewed. Previous Medical History PAST MEDICAL HISTORY Diagnosis Date DM (diabetes mellitus) (HCC) Essential hypertension, benign Other and unspecified hyperlipidemia Other specified family circumstances Previous Surgical History PAST SURGICAL HISTORY Procedure Laterality Date COLONOSCOPY FLX DX W/COLLJ SPEC WHEN PFRMD 04/08/15 Colonoscopy Family History No family history on file. Patient Allergies ALLERGIES No Known Allergies Current Medications Current Outpatient Medications on File Prior to Visit Medication Sig clindamycin (CLEOCIN) 300 mg capsule Take 1 capsule by mouth four times daily. L.acidoph-B.animalis-B.longum (FLORAJEN DIGESTION) 15 billion cell cap Take 1 capsule by mouth once daily. atorvastatin (LIPITOR) 40 mg tablet Take 1 tablet by mouth daily at bedtime. levothyroxine (SYNTHROID) 75 mcg tablet Take 1 tablet by mouth once daily. Take on empty stomach. For Thyroid. warfarin (COUMADIN) 2 mg tablet 2 mg daily except NONE on Sunday/ or as directed furosemide (LASIX) 20 mg tablet Take 1 tablet by mouth three times daily. metoprolol tartrate, short acting, (LOPRESSOR) 50 mg tablet TAKE 1 TABLET BY MOUTH TWICE A DAY predniSONE (DELTASONE) 5 mg tablet Take 1 tablet by mouth once daily. potassium chloride ER (K-DUR, KLOR-CON) 20 mEq tablet Take 1 tablet by mouth once daily. ferrous sulfate 325 mg (65 mg iron) tablet Take 1 tablet by mouth twice daily with meals. Cholecalciferol, Vitamin D3, 25 mcg (1,000 unit) cap Take 1 capsule by mouth once daily. valsartan (DIOVAN) 80 mg tablet Take 1 tablet by mouth once daily. albuterol HFA (VENTOLIN HFA) 90 mcg/actuation inhaler Inhale 2 Puffs as instructed every 4 hours as needed for wheezing/shortness of breath. omeprazole (PRILOSEC) 20 mg capsule Take 1 capsule by mouth once daily. amLODIPine (NORVASC) 10 mg tablet Take 1 tablet by mouth once daily. cetirizine (ZYRTEC) 10 mg tablet Take 1 tablet by mouth once daily. amiodarone (PACERONE) 100 mg tablet Take 1 tablet by mouth once daily. CPAP Initiate CPAP @ 15 cm of water with humidification. Mask (per patient preference) optional chin strap (if indicated) , filters, tubing, humidifier and lifetime supplies. ASPIRIN 81 MG ORAL TAB Take one(1) tablet daily. No current facility-administered medications on file prior to visit. Social History Social History Tobacco Use Smoking status: Never Smokeless tobacco: Never Vaping Use Vaping Use: Never used Substance Use Topics Alcohol use: Yes Comment: occasional sip of wine Drug use: No EXAM: There were no vitals taken for this visit. General Appearance: Well appearing, alert, in no acute distress, well-hydrated, well nourished.. Skin: left thigh medial aspect erytheamtous, some induration, does not feel warm Lungs: Lungs clear to auscultation. No wheezing, rhonchi, rales.. Heart: RRR without murmur, gallop, or rubs. No ectopy. Health Maintenance List SPIROMETRY Never done SHINGRIX VACCINE(1 of 2) Never done DTAP,TDAP,TD(2 - Td or Tdap) due on 06/25/2017 INFLUENZA(1) due on 04/06/2022 URINE ALBUMIN:CREATININE RATIO due on 06/14/2022 DIABETIC FOOT EXAM due on 06/20/2022 ADVANCE DIRECTIVE DISCUSSION due on 08/06/2022 DEPRESSION ASSESSMENT Never done HBA1C due on 09/12/2022 COVID-19 VACCINE(1) due on 03/23/2023 DILATED RETINAL EXAM due on 02/03/2023 LDL CHOLESTEROL due on 06/12/2023 SERUM CREATININE due on 06/12/2023 HEMOGLOBIN/HEMATOCRIT due on 06/12/2023 ANNUAL PCP TEAM CHRONIC DISEASE VISIT due on 09/06/2023 BP CONTROLLED (<130/80) due on 09/06/2023 PNEUMOCOCCAL: 65+ Completed Data reviewed [facility] Records ASSESSMENT/PLAN: 1. Type 2 diabetes mellitus with stage 3b chronic kidney disease, without long-term current use of insulin (HCC) - ICD9: 250.40, 585.3, ICD10: E11.22, N18.32 (primary diagnosis) - Controlled - Will cut back on insulin to just using lantus 25 units; monitor sugars to see if he needs meal time - HGB A1C - BASIC METABOLIC PNL 2. Essential hypertension, benign - ICD9: 401.1, ICD10: I10 - good control - Continue current medication(s) - Recommend home blood pressure monitoring, to bring results in on next visit - Goal of BP <140/90 - METOPROLOL TARTRATE 50 MG TABLET 3. Chronic systolic heart failure (HCC) - ICD9: 428.22, ICD10: I50.22 - METOPROLOL TARTRATE 50 MG TABLET 4. Hyperlipidemia, unspecified hyperlipidemia type - ICD9: 272.4, ICD10: E78.5 5. Chronic atrial fibrillation (HCC) - ICD9: 427.31, ICD10: I48.20 6. Hypothyroidism, acquired - ICD9: 244.9, ICD10: E03.9 - TSH BLD 7. FERMÍN (generalized anxiety disorder) - ICD9: 300.02, ICD10: F41.1 8. Fibrosis of lung (HCC) - ICD9: 515, ICD10: J84.10 9. Cardiomyopathy, unspecified type (HCC) - ICD9: 425.4, ICD10: I42.9 10. Hypertensive heart disease with chronic systolic congestive heart failure (HCC) - ICD9: 402.91, 428.22, ICD10: I11.0, I50.22 11. Cellulitis of skin - ICD9: 682.9, ICD10: L03.90 Follow clinically Follow up in 1 month with labs prior I agree with the Chief Complaint, ROS, and Past Histories independently gathered by the clinical client support manager and the remaining scribed note accurately describes my personal service to the patient. I spent a total of 45 minutes on the date of the service which included preparing to see the patient, [id number] patient care, completing clinical documentation, obtaining and/or reviewing separately obtained history, performing a medically appropriate examination, counseling and educating the patient/family/caregiver, and ordering medications, tests, or procedures. Saumya Farias MD The documentation for this note was completed by Martha Stewart Ma acting as scribe for Saumya Farias MD. October 12, 2022 9:35 AM. Martha Stewart Ma documented in this encounter [facility] 10-05-2022 Miscellaneous Notes Spoke with Donna and information below given. Kristina Rodriguez LPN Noted OK to wrap the legs if needed Saumya Farias MD Donna RN with [facility] called and she did not see pt today, but PT did and pt is complaining of increased lower edema. Picture sent to Donna does not look like any pitting. Pt was seen yesterday by a nurse and there was no mention of edema. Donna will see pt tomorrow. Daughter is asking if they can wrap the legs to help with the swelling. Pt has a dx of cellulitis. Please advise Donna. PH>[phone] okay to leave a message. Kristina Rodriguez LPN documented in this encounter [facility] 10-02-2022 Miscellaneous Notes Noted Saumya Farias MD David PT with [facility] called in and reports they did evaluation with Pt today. He states they are going to have 4 visits with the Pt to work on strength and endurance. documented in this encounter [facility] 10-02-2022 Miscellaneous Notes Adebayo notified and voiced understanding. Martha Stewart Ma OK for long-term care order as requested Saumya Farias MD Adebayo, a nurse with [facility] calling to update provider that pt has been seen yesterday. Adebayo is requesting approval for [facility] for patient. Pt to be seen 2x/week for 1 week, then 1x/week for 5 weeks for disease and medication management. Please call Adebayo back with verbal order at [phone]. Radha Nelson RN documented in this encounter [facility] 09-26-2022 Miscellaneous Notes Marry notified and voiced understanding. Martha Stewart Ma OK for verbal order that I will follow in Home Care Saumya Farias MD Marry with [facility] calls to report pt will be getting discharged from [facility] Rehab on 09/30. Pt has orders for PT, OT, and Nursing. Pt was in hospital for cellulitis and sepsis. Marry is asking for VO from pcp that pcp will follow pt while in . Call [facility] with 's VO. Tracey Ko LPN documented in this encounter [facility] 09-06-2022 Note HNO ID: [id number] Author: Aundrea Flores APRN.[facility] Service: ? Author Type: Nurse Practitioner Type: Progress Notes Filed: 09/06/2022 3:49 PM Note Text: This is a 81 year old male who presents today with: Patient presents with: Acute Visit: left leg swollen and seeping HISTORY OF PRESENT ILLNESS: Norris Stein is a 81 year old male. Patient presents with: Acute Visit: left leg swollen and seeping Here in the office for left leg swelling. Concerns leg may be infected. Refers that the increased left leg redness and swelling started about 5 days ago. Woke up today with wet socks, noticed an open sore to left lower ho. Usually wearing compression socks. Denies any fever or chills. History of hypertension, A-fib, heart failure, cardiomyopathy. Taking Lasix 20 mg daily. PAST MEDICAL HISTORY: PAST MEDICAL HISTORY Diagnosis Date DM (diabetes mellitus) (HCC) Essential hypertension, benign Other and unspecified hyperlipidemia Other specified family circumstances PAST SURGICAL HISTORY Procedure Laterality Date COLONOSCOPY FLX DX W/COLLJ SPEC WHEN PFRMD 04/08/15 Colonoscopy ALLERGIES Patient has no known allergies. MEDICATIONS Current Outpatient Medications Medication Sig tiZANidine (ZANAFLEX) 4 mg tablet Take 1 tablet by mouth every 8 hours as needed (muscle spasms). atorvastatin (LIPITOR) 40 mg tablet Take 1 tablet by mouth daily at bedtime. levothyroxine (SYNTHROID) 75 mcg tablet Take 1 tablet by mouth once daily. Take on empty stomach. For Thyroid. warfarin (COUMADIN) 2 mg tablet 2 mg daily except NONE on Sunday/ or as directed furosemide (LASIX) 20 mg tablet Take 1 tablet by mouth three times daily. metoprolol tartrate, short acting, (LOPRESSOR) 50 mg tablet TAKE 1 TABLET BY MOUTH TWICE A DAY predniSONE (DELTASONE) 5 mg tablet Take 1 tablet by mouth once daily. potassium chloride ER (K-DUR, KLOR-CON) 20 mEq tablet Take 1 tablet by mouth once daily. ferrous sulfate 325 mg (65 mg iron) tablet Take 1 tablet by mouth twice daily with meals. Cholecalciferol, Vitamin D3, 25 mcg (1,000 unit) cap Take 1 capsule by mouth once daily. valsartan (DIOVAN) 80 mg tablet Take 1 tablet by mouth once daily. albuterol HFA (VENTOLIN HFA) 90 mcg/actuation inhaler Inhale 2 Puffs as instructed every 4 hours as needed for wheezing/shortness of breath. omeprazole (PRILOSEC) 20 mg capsule Take 1 capsule by mouth once daily. amLODIPine (NORVASC) 10 mg tablet Take 1 tablet by mouth once daily. cetirizine (ZYRTEC) 10 mg tablet Take 1 tablet by mouth once daily. amiodarone (PACERONE) 100 mg tablet Take 1 tablet by mouth once daily. CPAP Initiate CPAP @ 15 cm of water with humidification. Mask (per patient preference) optional chin strap (if indicated) , filters, tubing, humidifier and lifetime supplies. ASPIRIN 81 MG ORAL TAB Take one(1) tablet daily. No current facility-administered medications for this visit. No family history on file. Social History Tobacco Use Smoking status: Never Smokeless tobacco: Never Vaping Use Vaping Use: Never used Substance Use Topics Alcohol use: Yes Comment: occasional sip of wine Drug use: No REVIEW OF SYSTEMS GENERAL: No weight loss, malaise or fevers/chills HEENT: Negative for frequent or significant headaches, No changes in hearing or vision. NECK: Negative for lumps, goiter, pain and significant neck swelling RESPIRATORY: Negative for cough, hemoptysis, wheezing, dyspnea or shortness of breath CARDIOVASCULAR: Negative for chest pain, leg swelling, orthopnea, or palpitations GI: No nausea, vomiting, or diarrhea/constipation. No hematochezia/melena. No heartburn or reflux symptoms. : No history of dysuria, frequency or incontinence MUSCULOSKELETAL: Negative for joint pain or swelling. SKIN: + Left leg swelling ENDOCRINE: Negative for cold or heat intolerance, polyuria, polydipsia and goiter NEURO: No history of headaches, syncope, paralysis, seizures or tremors MOOD: Negative for depression, anxiety, or suicidal ideation. EXAM: BP 110/60 Pulse 76 Resp 20 SpO2 96% PHYSICAL EXAM: General Appearance: Well appearing, alert, in no acute distress, well-hydrated, well nourished.. Skin: + See below Head: Normocephalic, no masses, lesions, tenderness or abnormalities. Eyes: Anicteric sclera. Pupils are equally round and reactive to light. Extraocular movements are intact. . Lungs: Lungs clear to auscultation. No wheezing, rhonchi, rales.. Heart: RRR without murmur, gallop, or rubs. No ectopy. Extremities: + 2 non-pitting edema to legs bilaterally. Left leg moderate erythema noted to just below the knee. Small open sore, with central clearing noted to lower leg. Marked Erythema with skin pen. Peripheral Pulses: Normal, Capillary refill <2secs, Pulses palpable. Neurologic: In Wheelchair. Sensation grossly intact.. ASSESSMENT/PLAN: 1. Cellulitis of skin - ICD9: 682.9, ICD10: L03.90 - Beg (more content not included)... [facility] 09-06-2022 Instructions Aundrea Flores APRN.CNP - 09/06/2022 2:18 PM EST Start Clindamycin, take 4 times daily. May use Florajen (probiotic) 1 capsule at bedtime. Continue to elevate the legs when possible. Keep skin clean and dry. May apply bactroban ointment to sore. Red flag symptoms, increase redness, swelling, fever, chills go to ER. Follow up on Sunday for skin check. documented in this encounter [facility] 09-06-2022 History of Presen t illness Narrative This is a 81 year old male who presents today with: Patient presents with: Acute Visit: left leg swollen and seeping HISTORY OF PRESENT ILLNESS: Norris Stein is a 81 year old male. Patient presents with: Acute Visit: left leg swollen and seeping Here in the office for left leg swelling. Concerns leg may be infected. Refers that the increased left leg redness and swelling started about 5 days ago. Woke up today with wet socks, noticed an open sore to left lower ho. Usually wearing compression socks. Denies any fever or chills. History of hypertension, A-fib, heart failure, cardiomyopathy. Taking Lasix 20 mg daily. PAST MEDICAL HISTORY: PAST MEDICAL HISTORY Diagnosis Date DM (diabetes mellitus) (HCC) Essential hypertension, benign Other and unspecified hyperlipidemia Other specified family circumstances PAST SURGICAL HISTORY Procedure Laterality Date COLONOSCOPY FLX DX W/COLLJ SPEC WHEN PFRMD 04/08/15 Colonoscopy ALLERGIES Patient has no known allergies. MEDICATIONS Current Outpatient Medications Medication Sig tiZANidine (ZANAFLEX) 4 mg tablet Take 1 tablet by mouth every 8 hours as needed (muscle spasms). atorvastatin (LIPITOR) 40 mg tablet Take 1 tablet by mouth daily at bedtime. levothyroxine (SYNTHROID) 75 mcg tablet Take 1 tablet by mouth once daily. Take on empty stomach. For Thyroid. warfarin (COUMADIN) 2 mg tablet 2 mg daily except NONE on Sunday/ or as directed furosemide (LASIX) 20 mg tablet Take 1 tablet by mouth three times daily. metoprolol tartrate, short acting, (LOPRESSOR) 50 mg tablet TAKE 1 TABLET BY MOUTH TWICE A DAY predniSONE (DELTASONE) 5 mg tablet Take 1 tablet by mouth once daily. potassium chloride ER (K-DUR, KLOR-CON) 20 mEq tablet Take 1 tablet by mouth once daily. ferrous sulfate 325 mg (65 mg iron) tablet Take 1 tablet by mouth twice daily with meals. Cholecalciferol, Vitamin D3, 25 mcg (1,000 unit) cap Take 1 capsule by mouth once daily. valsartan (DIOVAN) 80 mg tablet Take 1 tablet by mouth once daily. albuterol HFA (VENTOLIN HFA) 90 mcg/actuation inhaler Inhale 2 Puffs as instructed every 4 hours as needed for wheezing/shortness of breath. omeprazole (PRILOSEC) 20 mg capsule Take 1 capsule by mouth once daily. amLODIPine (NORVASC) 10 mg tablet Take 1 tablet by mouth once daily. cetirizine (ZYRTEC) 10 mg tablet Take 1 tablet by mouth once daily. amiodarone (PACERONE) 100 mg tablet Take 1 tablet by mouth once daily. CPAP Initiate CPAP @ 15 cm of water with humidification. Mask (per patient preference) optional chin strap (if indicated) , filters, tubing, humidifier and lifetime supplies. ASPIRIN 81 MG ORAL TAB Take one(1) tablet daily. No current facility-administered medications for this visit. No family history on file. Social History Tobacco Use Smoking status: Never Smokeless tobacco: Never Vaping Use Vaping Use: Never used Substance Use Topics Alcohol use: Yes Comment: occasional sip of wine Drug use: No REVIEW OF SYSTEMS GENERAL: No weight loss, malaise or fevers/chills HEENT: Negative for frequent or significant headaches, No changes in hearing or vision. NECK: Negative for lumps, goiter, pain and significant neck swelling RESPIRATORY: Negative for cough, hemoptysis, wheezing, dyspnea or shortness of breath CARDIOVASCULAR: Negative for chest pain, leg swelling, orthopnea, or palpitations GI: No nausea, vomiting, or diarrhea/constipation. No hematochezia/melena. No heartburn or reflux symptoms. : No history of dysuria, frequency or incontinence MUSCULOSKELETAL: Negative for joint pain or swelling. SKIN: + Left leg swelling ENDOCRINE: Negative for cold or heat intolerance, polyuria, polydipsia and goiter NEURO: No history of headaches, syncope, paralysis, seizures or tremors MOOD: Negative for depression, anxiety, or suicidal ideation. EXAM: BP 110/60 Pulse 76 Resp 20 SpO2 96% PHYSICAL EXAM: General Appearance: Well appearing, alert, in no acute distress, well-hydrated, well nourished.. Skin: + See below Head: Normocephalic, no masses, lesions, tenderness or abnormalities. Eyes: Anicteric sclera. Pupils are equally round and reactive to light. Extraocular movements are intact. . Lungs: Lungs clear to auscultation. No wheezing, rhonchi, rales.. Heart: RRR without murmur, gallop, or rubs. No ectopy. Extremities: + 2 non-pitting edema to legs bilaterally. Left leg moderate erythema noted to just below the knee. Small open sore, with central clearing noted to lower leg. Marked Erythema with skin pen. Peripheral Pulses: Normal, Capillary refill <2secs, Pulses palpable. Neurologic: In Wheelchair. Sensation grossly intact.. ASSESSMENT/PLAN: 1. Cellulitis of skin - ICD9: 682.9, ICD10: L03.90 - Begin treatment with Clindamycin - No lymphangetic streaking, this was defined for patient to watch for and to seek medical care immediately if appears - Area of cellulitis defined with pen, seek further attention if this area continues to enlarge - Keep wound clean and dry, apply Bactroban ointment to open sore. Elevate the legs when possible. - Follow up for recheck in two days - WOUND CULTURE AND GRAM STAIN - CLINDAMYCIN HCL 300 MG CAPSULE - FLORAJEN DIGESTION 15 BILLION CELL CAPSULE - MUPIROCIN 2 % TOPICAL OINTMENT Follow-up in 2 days or sooner as needed. Discussed treatment plan and patient voices understanding. Patient's questions answered appropriately. Medications and potential side effects were discussed and patient voices understanding. Aundrea Flores APRN.CNP This note was partially generated using [employer] voice recognition system. Note was reviewed for accuracy. There may be minor misspellings or grammar miscues with [employer] voice recognition. documented in this encounter [facility] 08-30-2022 Miscellaneous Notes The following approved medication requests have been transmitted electronically. Requested Prescriptions Pending Prescriptions Disp Refills tiZANidine (ZANAFLEX) 4 mg tablet 90 tablet 1 Sig: Take 1 tablet by mouth every 8 hours as needed (muscle spasms). Aundrea Flores APRN.CNP Patient calling asking for new rx for his Tizanidine, he takes 3 tablets daily. He said he saw Dr Fabian last week and is having procedure done in Sep. Patient would like larger amount, last rx only lasts 10 days and has to go back to pharmacy again. Please advise Patient has been identified by name and date of : Patient phones for refill(s): Requested Prescriptions Pending Prescriptions Disp Refills tiZANidine (ZANAFLEX) 4 mg tablet 30 tablet 5 Sig: Take 1 tablet by mouth every 8 hours as needed (muscle spasms). Date of last office visit in primary care: 06/22/2022, has appt 10/06/2022 Last 2 Encounter Wt Readings: Date: Wt: 06/22/2022 112.8 kg (248 lb 11.2 oz) 05/25/2022 116.6 kg (257 lb) Previous labs/tests for medication: Not applicable Please advise. Thank you. Marry Donato LPN documented in this encounter [facility] 08-10-2022 Note HNO ID: [id number] Author: Saumya Farias MD Service: ? Author Type: Physician Type: Progress Notes Filed: 08/10/2022 12:08 PM Note Text: I agree with the advice given; stay same and recheck in 4 weeks Saumya Farias MD [facility] 08-10-2022 Note HNO ID: [id number] Author: Vanessa Mckeon RN Service: ? Author Type: ? Type: Progress Notes Filed: 08/10/2022 12:08 PM Note Text: patient had inr completed at [facility] patients inr is 2.5 (patients inr range is 2.0-3.0) patient is currently taking none on Mon,Thurs and 2mg all other days patients last dose change was on 07/27/22 due to a high level of 4.9 (dose at that time was none on Thurs and 2mg all other days) patient has had no changes in medication except for coumadin and no uninstructed missed doses and no change in diet Advised patient to continue on the same dose(s) and that they would only be contacted regarding dosage and follow up instructions after review with provider, if a change is needed. Written instructions given and patient verbalized understanding. Presently scheduled in 4 weeks (09/07/22) for follow up INR. [facility] 08-10-2022 History of Presen t illness Narrative I agree with the advice given; stay same and recheck in 4 weeks Saumya Farias MD patient had inr completed at [facility] patients inr is 2.5 (patients inr range is 2.0-3.0) patient is currently taking none on Mon,Thurs and 2mg all other days patients last dose change was on 07/27/22 due to a high level of 4.9 (dose at that time was none on Thurs and 2mg all other days) patient has had no changes in medication except for coumadin and no uninstructed missed doses and no change in diet Advised patient to continue on the same dose(s) and that they would only be contacted regarding dosage and follow up instructions after review with provider, if a change is needed. Written instructions given and patient verbalized understanding. Presently scheduled in 4 weeks (09/07/22) for follow up INR. documented in this encounter [facility] 08-03-2022 Miscellaneous Notes Pt called and is notified of providers message. Pt voices understanding. Twyla Hopson RN The following approved medication requests have been transmitted electronically. Requested Prescriptions Pending Prescriptions Disp Refills atorvastatin (LIPITOR) 40 mg tablet 90 tablet 3 Sig: Take 1 tablet by mouth daily at bedtime. Aundrea Flores APRN.[facility] Patient has been identified by name and date of : Yes, Provider Dr Farias Date 08/03/22 Time 1311. Patient phones for refill(s): Requested Prescriptions Pending Prescriptions Disp Refills atorvastatin (LIPITOR) 40 mg tablet 90 tablet 3 Sig: Take 1 tablet by mouth daily at bedtime. Date of last office visit in primary care: 06/22/22 Future visit: 10/06/22 Last 2 Encounter Wt Readings: Date: Wt: 06/22/2022 112.8 kg (248 lb 11.2 oz) 05/25/2022 116.6 kg (257 lb) Previous labs/tests for medication: Cholesterol: HDL Cholesterol (mg/dL) Date Value 06/12/2022 43 06/14/2021 41 LDL Cholesterol (mg/dL) Date Value 06/12/2022 72 06/14/2021 81 ALT (U/L) Date Value 06/12/2022 29 06/14/2021 36 Non HDL Cholesterol (mg/dL) Date Value 06/12/2022 103 06/14/2021 106 Please advise. Thank you. Twyla Hopson RN documented in this encounter [facility] 07-27-2022 History of Presen t illness Narrative Patient notified & repeated instructions back. Tracker updated. Marc Savage MA Hold coumadin for 2 days, then go to none on Mon and Th; 2mg all other days Recheck in 2 weeks as planned Saumya Farias MD patient had inr completed at [facility] patients inr is 4.9 (patients inr range is 2.0-3.0) patient is currently taking none on Thurs and 2mg all other days patients last dose change was on 06/12/22 due to a low level of 1.7 (dose at that time was none on Tues,Thurs and 2mg all other days) patient has had a change in medication as patient is taking norco and no uninstructed missed doses and no change in diet FYI- patient has been instructed to hold coumadin until contacted Advised patient that they would be contacted regarding medication dose and when to follow up after information is reviewed by provider. After provider review please contact the patient with information and schedule follow up appointment with coumadin clinic. ok to leave a detailed message if no answer FYI- patient has been scheduled for a 2 week follow up inr d/t the cc is closed at the 1 week saumya and spouse has appt in 2 week documented in this encounter [facility] 07-13-2022 History of Presen t illness Narrative I agree with the advice given; stay same and recheck in 2 weeks Saumya Farias MD patient had inr completed at [facility] patients inr is 2.4 (patients inr range is 2.0-3.0) patient is currently taking none on Thurs and 2mg all other days patients last dose change was on 06/12/22 due to a low level of 1.7 (dose at that time was none on Tues,Thurs and 2mg all other days) patient has had no changes in medication and no uninstructed missed doses and no change in diet Advised patient to continue on the same dose(s) and that they would only be contacted regarding dosage and follow up instructions after review with provider, if a change is needed. Written instructions given and patient verbalized understanding. Presently scheduled in 2 weeks (07/27/22 - spouse has appt also this day) for follow up INR. documented in this encounter [facility] 07-04-2022 History of Presen t illness Narrative Spoke with pt and advised to take none on Thur and 2 mg all other days Resume regular dose and recheck next week as ordered. patient had inr completed at [facility] patients inr is 1.5 (patients inr range is 2.0-3.0) patient is currently taking none on Thurs and 2mg all other days patients last dose change was on 06/12/22 due to a low level of 1.7 (dose at that time was none on Tues,Thurs and 2mg all other days) patient has had no changes in medication and no change in diet FYI- patient has been off coumadin for 5 days do to getting a spinal injection today, patient will resume normal coumadin dosing tonight Advised patient to continue on the same dose(s) and that they would only be contacted regarding dosage and follow up instructions after review with provider, if a change is needed. Written instructions given and patient verbalized understanding. Presently scheduled in 1 weeks (07/13/22 - spouse has appt also this day) for follow up INR. documented in this encounter [facility] 06-28-2022 Miscellaneous Notes Meenu at 's office called and is notified of providers message and instructions. She voices understanding. Twyla Hopson RN OK to hold coumadin for 5 days prior to injection as requested Saumya Farias MD Meenu @ Dr. Fabian's office calling to let PCP know they want to schedule lumbar injection for Wednesday 07/04 and patient will need to hold Coumadin x 5 days starting tomorrow. Asking for verbal okay. Meenu's phone # [phone] or [phone]. Jessica Franco RN documented in this encounter [facility] 06-22-2022 Miscellaneous Notes The following approved medication requests have been transmitted electronically. Requested Prescriptions Signed Prescriptions Disp Refills warfarin (COUMADIN) 2 mg tablet 45 tablet 5 Si mg daily except NONE on Sunday/ or as directed Authorizing Provider: ANAM STRICKLAND Refused Prescriptions Disp Refills warfarin (COUMADIN) 2 mg tablet [Pharmacy Med Name: WARFARIN SODIUM 2 MG TABS 2 Tablet] 45 tablet 5 Si MG DAILY EXCEPT NONE ON SUNDAY OR DIRECTED Refused By: VINNY PIERCE Reason for Refusal: Request already responded to by other means (for example, phone, fax) Anam Strickland APRN.CNP documented in this encounter [facility] 06-22-2022 History of Presen t illness Narrative Chief Complaint Patient presents with: F/U 3 Month HPI Norris Stein is a 81 year old male who presents here today for 3 month follow up. Here with his , Martha. No bowel, Gi, or urinary issues. GERD sx controlled on Prilosec 20 mg daily. HTN/CHF/A-fib: Follows with Dr. Godoy. Checking BP at home, no chest pains, dizziness, or SOB. Taking Norvasc 10 mg daily, Pacerone 100 mg daily, Valsartan 80 mg daily, Lopressor 50 mg BID, and Potassium 20 mEq BID. Taking Lasix 60 mg daily. INR and coumadin managed by PCP and coumadin clinic. The Cardio put him on Jardiance 10 mg for 2 weeks and now he is off it for a week; Nephrology was concerned about increasing Cr. States he was started on this for diabetes and fluid retention. DM: Not taking any diabetes medications, tries to control with lifestyle. Denies any hypoglycemic episodes, no neuropathy sx in feet. Pain: Was seen a few weeks ago for lower back pain. Xr was done, advised to use no more than 3,000 mg Tylenol per day. Was given Tizanidine 4 mg to use prn; he does find this to be helpful. He would like to proceed with PT at [facility] with Dr. Fabian. FERMÍN: Stable with use of Lorazepam 0.5 mg prn, not using daily. Thyroid: Taking Synthroid 50 mcg daily. No missed dosages. CKD: Follows with [facility] Dr. Plasencia. Lipid/CAD: Tries to watch diet, avoids sugars. No regular exercise. Is on Lipitor 40 mg daily, tolerating well. KIM: Follows with [facility]. Using CPAP at 15 cm of water. Asthma: Stable; uses prn Prednisone and albuterol. Past medical history, appointments, medications, allergies reviewed. Previous Medical History PAST MEDICAL HISTORY Diagnosis Date DM (diabetes mellitus) (HCC) Essential hypertension, benign Other and unspecified hyperlipidemia Other specified family circumstances Previous Surgical History PAST SURGICAL HISTORY Procedure Laterality Date COLONOSCOPY FLX DX W/COLLJ SPEC WHEN PFRMD 04/08/15 Colonoscopy Family History No family history on file. Patient Allergies ALLERGIES No Known Allergies Current Medications Current Outpatient Medications on File Prior to Visit Medication Sig warfarin (COUMADIN) 2 mg tablet 2 mg daily except NONE on Sunday/ or as directed furosemide (LASIX) 20 mg tablet Take 1 tablet by mouth three times daily. LORazepam (ATIVAN) 0.5 mg Take 1 tablet by mouth twice daily as needed for up to 90 days. tiZANidine (ZANAFLEX) 4 mg tablet Take 1 tablet by mouth every 8 hours as needed (muscle spasms). metoprolol tartrate, short acting, (LOPRESSOR) 50 mg tablet TAKE 1 TABLET BY MOUTH TWICE A DAY predniSONE (DELTASONE) 5 mg tablet Take 1 tablet by mouth once daily. potassium chloride ER (K-DUR, KLOR-CON) 20 mEq tablet Take 1 tablet by mouth once daily. ferrous sulfate 325 mg (65 mg iron) tablet Take 1 tablet by mouth twice daily with meals. Cholecalciferol, Vitamin D3, 25 mcg (1,000 unit) cap Take 1 capsule by mouth once daily. valsartan (DIOVAN) 80 mg tablet Take 1 tablet by mouth once daily. albuterol HFA (VENTOLIN HFA) 90 mcg/actuation inhaler Inhale 2 Puffs as instructed every 4 hours as needed for wheezing/shortness of breath. omeprazole (PRILOSEC) 20 mg capsule Take 1 capsule by mouth once daily. amLODIPine (NORVASC) 10 mg tablet Take 1 tablet by mouth once daily. levothyroxine (SYNTHROID) 50 mcg tablet Take 1 tablet by mouth once daily. Take on empty stomach. For Thyroid. atorvastatin (LIPITOR) 40 mg tablet Take 1 tablet by mouth daily at bedtime. cetirizine (ZYRTEC) 10 mg tablet Take 1 tablet by mouth once daily. amiodarone (PACERONE) 100 mg tablet Take 1 tablet by mouth once daily. CPAP Initiate CPAP @ 15 cm of water with humidification. Mask (per patient preference) optional chin strap (if indicated) , filters, tubing, humidifier and lifetime supplies. ASPIRIN 81 MG ORAL TAB Take one(1) tablet daily. No current facility-administered medications on file prior to visit. Social History Social History Tobacco Use Smoking status: Never Smokeless tobacco: Never Vaping Use Vaping Use: Never used Substance Use Topics Alcohol use: Yes Comment: occasional sip of wine Drug use: No EXAM: BP 132/80 Pulse 74 Resp 20 Wt 112.8 kg (248 lb 11.2 oz) BMI 40.76 kg/m General Appearance: Well appearing, alert, in no acute distress, well-hydrated, well nourished.. Lungs: Lungs clear to auscultation. No wheezing, rhonchi, rales.. Heart: irregular. Health Maintenance List SPIROMETRY Never done SHINGRIX VACCINE(1 of 2) Never done DTAP,TDAP,TD(2 - Td or Tdap) due on 06/25/2017 DEPRESSION ASSESSMENT Never done INFLUENZA(1) due on 04/06/2022 URINE ALBUMIN:CREATININE RATIO due on 06/14/2022 DIABETIC FOOT EXAM due on 06/20/2022 COVID-19 VACCINE(1) due on 03/23/2023 HBA1C due on 06/15/2022 LDL CHOLESTEROL due on 12/06/2022 HEMOGLOBIN/HEMATOCRIT due on 12/06/2022 DILATED RETINAL EXAM due on 02/03/2023 SERUM CREATININE due on 03/15/2023 ANNUAL PCP TEAM CHRONIC DISEASE VISIT due on 05/25/2023 BP CONTROLLED (<130/80) due on 05/25/2023 ADVANCE DIRECTIVE DISCUSSION Completed PNEUMOCOCCAL: 65+ Completed Data reviewed Results Only on 06/20/2022 Component Date Value INR (POCT) 06/20/2022 2.4 (A) Internal Quality Check 06/20/2022 Acceptable Appointment on 06/12/2022 Component Date Value Protein, Total 06/12/2022 6.9 Albumin 06/12/2022 4.1 Calcium, Total 06/12/2022 9.4 Bilirubin, Total 06/12/2022 0.5 Alkaline Phosphatase 06/12/2022 88 AST 06/12/2022 23 ALT 06/12/2022 29 Glucose 06/12/2022 168 (A) BUN 06/12/2022 36 (A) Creatinine 06/12/2022 2.03 (A) Sodium 06/12/2022 140 Potassium 06/12/2022 4.5 Chloride 06/12/2022 100 CO2 06/12/2022 27 Anion Gap 06/12/2022 13 Estimated Glomerular Wiley* 06/12/2022 33 (A) TSH 06/12/2022 4.910 (A) Hemoglobin A1C 06/12/2022 9.5 (A) Estimated Average Glucose 06/12/2022 226 WBC 06/12/2022 10.24 RBC 06/12/2022 4.63 Hemoglobin 06/12/2022 14.3 Hematocrit 06/12/2022 44.0 MCV 06/12/2022 95.0 MCH 06/12/2022 30.9 MCHC 06/12/2022 32.5 RDW-CV 06/12/2022 14.2 Platelet Count 06/12/2022 185 MPV 06/12/2022 10.0 Absolute nRBC 06/12/2022 <0.01 Cholesterol, Total 06/12/2022 146 Triglyceride 06/12/2022 153 (A) HDL Cholesterol 06/12/2022 43 Non HDL Cholesterol 06/12/2022 103 Fasting Time 06/12/2022 14 VLDL Cholesterol 06/12/2022 31 (A) TC:HDL Ratio 06/12/2022 3.40 LDL Cholesterol 06/12/2022 72 LDL:HDL Ratio 06/12/2022 1.67 Results Only on 06/12/2022 Component Date Value INR (POCT) 06/12/2022 1.7 (A) Internal Quality Check 06/12/2022 Acceptable Results Only on 06/06/2022 Component Date Value INR (POCT) 06/06/2022 2.8 (A) Internal Quality Check 06/06/2022 Acceptable Results Only on 05/30/2022 Component Date Value INR (POCT) 05/30/2022 3.5 (A) Internal Quality Check 05/30/2022 Acceptable Results Only on 05/02/2022 Component Date Value INR (POCT) 05/02/2022 2.7 (A) Internal Quality Check 05/02/2022 Acceptable ASSESSMENT/PLAN: 1. Essential hypertension, benign - ICD9: 401.1, ICD10: I10 (primary diagnosis) - good control - Continue current medication(s) - Recommended regular aerobic exercise. - Recommend home blood pressure monitoring, to bring results in on next visit - Goal of BP <140/90 2. Hypothyroidism, unspecified type - ICD9: 244.9, ICD10: E03.9 - Instructed patient on importance of taking on an empty stomach either first thing in the morning or at bedtime. - Increase Synthroid dose to 0.075 mg - LEVOTHYROXINE 75 MCG TABLET - TSH BLD 3. Chronic systolic heart failure (HCC) - ICD9: 428.22, ICD10: I50.22 Continue current medications. Follow with Cardiology 4. Chronic atrial fibrillation (HCC) - ICD9: 427.31, ICD10: I48.20 5. Hypothyroidism, acquired - ICD9: 244.9, ICD10: E03.9 - LEVOTHYROXINE 75 MCG TABLET - TSH BLD 6. Type 2 diabetes mellitus with stage 3b chronic kidney disease, without long-term current use of insulin (HCC) - ICD9: 250.40, 585.3, ICD10: E11.22, N18.32 uncontrolled Will see if he is able to get back on Jardiance - COMP METABOLIC PANEL - HGB A1C 7. FERMÍN (generalized anxiety disorder) - ICD9: 300.02, ICD10: F41.1 8. Midline low back pain without sciatica, unspecified chronicity - ICD9: 724.2, ICD10: M54.50 - TIZANIDINE 4 MG TABLET - CONSULT TO PHYSICAL THERAPY 9. Lumbar pain - ICD9: 724.2, ICD10: M54.50 - CONSULT TO PAIN MGT - requests Dr Fabian Follow up in 3 months I agree with the Chief Complaint, ROS, and Past Histories independently gathered by the clinical client support manager and the remaining scribed note accurately describes my personal service to the patient. Medical Decision Making: Problems: Moderate: 2+ stable chronic illnesses Data: Unique test result(s) reviewed: 3+ Unique test(s) ordered: 3+ Risk: Moderate: Drug management Medical Decision Making Level: 4 - Moderate Saumya Farias MD The documentation for this note was completed by Martha Stewart Ma acting as scribe for Saumya Farias MD. June 22, 2022 8:47 AM. Martha Stewart Ma documented in this encounter [facility] 06-12-2022 Miscellaneous Notes LM on VM with Coumadin instructions. Also please make him aware of the XR results. We've attempted to contact him multiple times. Lamar Love Ma X2 attempt to reach patient. Unable to reach patient. Left VM to return call to office. Please read below and advise. Marc Savage MA Pt did not answer, will need to call back later. Please let the patient know that his xray of his lumbar spine is showing some arthritis and other mostly age related findings. Likely cause of his pain. We can consider PHYSICAL THERAPY and or referral to pain management for treatment options. Continue with appointment with Dr. Farias on 06/22. Anam Strickland APRN.COLIN Patient calling and requesting PCP to advise on his lumbar xray completed on 05/25/22. Thank you. documented in this encounter [facility] 06-12-2022 History of Presen t illness Narrative Called and left detailed message below on identifiable VM. If questions, pt to contact office. Tracker updated. Lamar Love Ma Go to 2 mg every day except for none on Recheck in 1 week as as planned Saumya Farias MD patient had inr completed at [facility] patients inr is 1.7 (patients inr range is 2.0-3.0) patient is currently taking none on , and 2mg all other days patients last dose change was on 05/30/22 due to a high level of 3.5 (dose at that time was noen on Tues and 2mg all other days) patient has had no changes in medication and no uninstructed missed doses and no change in diet FYI - patient is having back pain again and will be taking the zanaflex and tylenol again until improved this is what was believed to cause his level to increase and be at high on the 05/30 check Advised patient that they would be contacted regarding medication dose and when to follow up after information is reviewed by provider. After provider review please contact the patient with information and schedule follow up appointment with coumadin clinic. ok to leave a detailed message if no answer FYI- patient has been scheduled for a 1 week follow up inr on 06/20/22 (spouse has appt also this day) documented in this encounter [facility] 06-06-2022 History of Presen t illness Narrative I agree with the advice given; stay same and recheck in 1 week Saumya Farias MD patient had inr completed at [facility] patients inr is 2.8 (patients inr range is 2.0-3.0) patient is currently taking none on Tues,Thurs and 2mg all other days patients last dose change was on 05/30/22 due to a high level of 3.5 (dose at that time was none on Tues and 2mg all other days) patient has had no changes in medication except for coumadin and no uninstructed missed doses and no change in diet Advised patient to continue on the same dose(s) and that they would only be contacted regarding dosage and follow up instructions after review with provider, if a change is needed. Written instructions given and patient verbalized understanding. Presently scheduled in 1 week (06/12/22 - since spouse has to return that day also) for follow up INR. documented in this encounter [facility] 05-30-2022 History of Presen t illness Narrative Pt notified, tracker and med list updated. Martha Stewart Ma Decrease dose to NO coumadin on and Th, 2 mg the other days of the week, recheck INR 1 week Ben Chopra DO patient had inr completed at [facility] patients inr is 3.5 (patients inr range is 2.0-3.0) patient is currently taking none on and 2mg all other days patients last dose change was on 09/20/21 due to a high level of 3.6 (dose at that time was 2mg daily) patient has had a changes in medication as patient has been on zanaflex and 6-8 tylenol daily since 05/25/22 and no change in diet Advised patient that they would be contacted regarding medication dose and when to follow up after information is reviewed by provider. After provider review please contact the patient with information and schedule follow up appointment with coumadin clinic. ok to leave a detailed message if no answer FYI- patient has been scheduled for a 1 week follow up inr on 06/06/22 documented in this encounter [facility] 05-25-2022 History of Presen t illness Narrative Chief Complaint Patient presents with: Pain, Back HPI Norris Stein is a 81 year old male who presents here today for Complaint(s) of back pain. Pt c/o back pain for too long . Pt seen by Aundrea Flores CNP on 04/26/22 for left sided low back pain that started about 10 days prior to his visit. Pain at that time was described as sharp at times. Today pain has alternated from right to left, but today is located in the middle, lower back. Notes that the pain is not as severe as when he was here originally and just now described as a sore, achy and tight type pain. Has been doing stretches, wants to make sure the stretches he's doing is okay for his back. Using Voltaren Gel prn, asking if safe to use as well as Tylenol 6-8 tabs per day, asking if this is okay to safe. Pain today a 3/10. Wondering what steps he should take such as an x-ray or cat scan. Concerned about kidneys, is this related. Feels he's retaining fluid in his abdomen. He's currently taking Lasix 20 mg 3 tabs po once daily. Dr. Plasencia wanted him to reduce to 40 mg daily. Past medical history, appointments, medications, allergies reviewed. Previous Medical History PAST MEDICAL HISTORY Diagnosis Date DM (diabetes mellitus) (HCC) Essential hypertension, benign Other and unspecified hyperlipidemia Other specified family circumstances Previous Surgical History PAST SURGICAL HISTORY Procedure Laterality Date COLONOSCOPY FLX DX W/COLLJ SPEC WHEN PFRMD 04/08/15 Colonoscopy Family History No family history on file. Patient Allergies ALLERGIES No Known Allergies Current Medications Current Outpatient Medications on File Prior to Visit Medication Sig metoprolol tartrate, short acting, (LOPRESSOR) 50 mg tablet TAKE 1 TABLET BY MOUTH TWICE A DAY predniSONE (DELTASONE) 5 mg tablet Take 1 tablet by mouth once daily. furosemide (LASIX) 20 mg tablet Take 1 tablet by mouth once daily. potassium chloride ER (K-DUR, KLOR-CON) 20 mEq tablet Take 1 tablet by mouth once daily. ferrous sulfate 325 mg (65 mg iron) tablet Take 1 tablet by mouth twice daily with meals. Cholecalciferol, Vitamin D3, 25 mcg (1,000 unit) cap Take 1 capsule by mouth once daily. valsartan (DIOVAN) 80 mg tablet Take 1 tablet by mouth once daily. albuterol HFA (VENTOLIN HFA) 90 mcg/actuation inhaler Inhale 2 Puffs as instructed every 4 hours as needed for wheezing/shortness of breath. omeprazole (PRILOSEC) 20 mg capsule Take 1 capsule by mouth once daily. amLODIPine (NORVASC) 10 mg tablet Take 1 tablet by mouth once daily. warfarin (COUMADIN) 2 mg tablet 2 mg daily except NONE on Sunday or as directed levothyroxine (SYNTHROID) 50 mcg tablet Take 1 tablet by mouth once daily. Take on empty stomach. For Thyroid. atorvastatin (LIPITOR) 40 mg tablet Take 1 tablet by mouth daily at bedtime. cetirizine (ZYRTEC) 10 mg tablet Take 1 tablet by mouth once daily. amiodarone (PACERONE) 100 mg tablet Take 1 tablet by mouth once daily. CPAP Initiate CPAP @ 15 cm of water with humidification. Mask (per patient preference) optional chin strap (if indicated) , filters, tubing, humidifier and lifetime supplies. ASPIRIN 81 MG ORAL TAB Take one(1) tablet daily. No current facility-administered medications on file prior to visit. Social History Social History Tobacco Use Smoking status: Never Smokeless tobacco: Never Vaping Use Vaping Use: Never used Substance Use Topics Alcohol use: Yes Comment: occasional sip of wine Drug use: No EXAM: BP 124/62 (BP Site: Left Arm, BP Position: Sitting, BP Cuff Size: Large Adult) Pulse 60 Resp 20 Wt 116.6 kg (257 lb) BMI 42.12 kg/m General Appearance: Well appearing, alert, in no acute distress, well-hydrated, well nourished and Obese. Back: Tenderness located in middle of his back, and lumbar paraspinal muscles bilaterally. No radiation down into his legs. Uses a cane to balance himself. Health Maintenance List SPIROMETRY Never done SHINGRIX VACCINE(1 of 2) Never done DTAP,TDAP,TD(2 - Td or Tdap) due on 06/25/2017 DEPRESSION ASSESSMENT Never done INFLUENZA(1) due on 04/06/2022 URINE ALBUMIN:CREATININE RATIO due on 06/14/2022 DIABETIC FOOT EXAM due on 06/20/2022 COVID-19 VACCINE(1) due on 03/23/2023 HBA1C due on 06/15/2022 LDL CHOLESTEROL due on 12/06/2022 HEMOGLOBIN/HEMATOCRIT due on 12/06/2022 DILATED RETINAL EXAM due on 02/03/2023 SERUM CREATININE due on 03/15/2023 ANNUAL PCP TEAM CHRONIC DISEASE VISIT due on 04/26/2023 BP CONTROLLED (<130/80) due on 04/26/2023 ADVANCE DIRECTIVE DISCUSSION Completed PNEUMOCOCCAL: 65+ Completed Data reviewed None ASSESSMENT/PLAN: 1. Midline low back pain without sciatica, unspecified chronicity - ICD9: 724.2, ICD10: M54.50 (primary diagnosis) - Check XR today. - Continue current medication regimen. - Discussed no more then 3,000 mg tylenol daily. - TIZANIDINE 4 MG TABLET - XR LUMBAR GENERAL 3V AP/LAT/L5-S1 2. Anxiety - ICD9: 300.00, ICD10: F41.9 - New Rx given - LORAZEPAM 0.5 MG TABLET 3. Chronic systolic heart failure (HCC) - ICD9: 428.22, ICD10: I50.22 - 60 mg daily per patient - FUROSEMIDE 20 MG TABLET Keep appt as scheduled with labs prior. I agree with the Chief Complaint, ROS, and Past Histories independently gathered by the clinical client support manager and the remaining scribed note accurately describes my personal service to the patient. Medical Decision Making: Problems: Low: Acute, uncomplicated illness or injury Moderate: 2+ stable chronic illnesses Data: Unique test(s) ordered: 3+ Risk: Moderate: Drug management Medical Decision Making Level: 4 - Moderate Saumya Farias MD The documentation for this note was completed by Lamar Love Ma acting as scribe for Saumya Farias MD. May 25, 2022 2:50 PM. Lamar Love Ma documented in this encounter [facility] 05-02-2022 History of Presen t illness Narrative Agree with below Ben Chopra DO patient had inr completed at [facility] patients inr is 2.7 (patients inr range is 2.0-3.0) patient is currently taking none no Tues and 2mg all other days patients last dose change was on 09/20/21 due to a high level of 3.6 (dose at that time was 2mg daily) patient has had no changes in medication and no uninstructed missed doses and no change in diet Advised patient to continue on the same dose(s) and that they would only be contacted regarding dosage and follow up instructions after review with provider, if a change is needed. Written instructions given and patient verbalized understanding. Presently scheduled in 4 weeks (05/30/22) for follow up INR. documented in this encounter [facility] 04-26-2022 Instructions Aundrea Flores APRN.COLIN - 04/26/2022 9:14 AM EDT Images from the original note were not included. 1.) Recommend taking Tylenol as needed for pain. May try Voltaren Gel to the area for pain as well. 2.) Try to stretch the legs and back when able to do so. May apply ice and heat. Complete stretches before and after exercise. 3.) Massage therapy may be helpful. 4.) Red flag symptoms go to ER. 5.) Follow up as needed. Back Exercises: Hold for 15 - 30 seconds. sets X daily documented in this encounter [facility] 04-26-2022 History of Presen t illness Narrative This is a 81 year old male who presents today with: Patient presents with: Acute Visit: back lower left HISTORY OF PRESENT ILLNESS: Norris Stein is a 81 year old male. Patient presents with: Acute Visit: back lower left Here in the office for back pain. Started about 10 days ago. No injury to the area. Having left sided low back pain. Worse with movement. Pain is sharp at times. Sits a lot during the day, refers that he started walking on treadmill for 5-10 minutes. Tried tylenol, currently taking coumadin therefore cannot take any NSAIDS. Denies loss of bowel/bladder or saddle anesthesia. PAST MEDICAL HISTORY: PAST MEDICAL HISTORY Diagnosis Date DM (diabetes mellitus) (HCC) Essential hypertension, benign Other and unspecified hyperlipidemia Other specified family circumstances PAST SURGICAL HISTORY Procedure Laterality Date COLONOSCOPY FLX DX W/COLLJ SPEC WHEN PFRMD 04/08/15 Colonoscopy ALLERGIES Patient has no known allergies. MEDICATIONS Current Outpatient Medications Medication Sig metoprolol tartrate, short acting, (LOPRESSOR) 50 mg tablet TAKE 1 TABLET BY MOUTH TWICE A DAY predniSONE (DELTASONE) 5 mg tablet Take 1 tablet by mouth once daily. furosemide (LASIX) 20 mg tablet Take 1 tablet by mouth once daily. potassium chloride ER (K-DUR, KLOR-CON) 20 mEq tablet Take 1 tablet by mouth once daily. ferrous sulfate 325 mg (65 mg iron) tablet Take 1 tablet by mouth twice daily with meals. Cholecalciferol, Vitamin D3, 25 mcg (1,000 unit) cap Take 1 capsule by mouth once daily. valsartan (DIOVAN) 80 mg tablet Take 1 tablet by mouth once daily. albuterol HFA (VENTOLIN HFA) 90 mcg/actuation inhaler Inhale 2 Puffs as instructed every 4 hours as needed for wheezing/shortness of breath. omeprazole (PRILOSEC) 20 mg capsule Take 1 capsule by mouth once daily. amLODIPine (NORVASC) 10 mg tablet Take 1 tablet by mouth once daily. warfarin (COUMADIN) 2 mg tablet 2 mg daily except NONE on Sunday or as directed levothyroxine (SYNTHROID) 50 mcg tablet Take 1 tablet by mouth once daily. Take on empty stomach. For Thyroid. atorvastatin (LIPITOR) 40 mg tablet Take 1 tablet by mouth daily at bedtime. cetirizine (ZYRTEC) 10 mg tablet Take 1 tablet by mouth once daily. amiodarone (PACERONE) 100 mg tablet Take 1 tablet by mouth once daily. CPAP Initiate CPAP @ 15 cm of water with humidification. Mask (per patient preference) optional chin strap (if indicated) , filters, tubing, humidifier and lifetime supplies. ASPIRIN 81 MG ORAL TAB Take one(1) tablet daily. No current facility-administered medications for this visit. No family history on file. Social History Tobacco Use Smoking status: Never Smokeless tobacco: Never Vaping Use Vaping Use: Never used Substance Use Topics Alcohol use: Yes Comment: occasional sip of wine Drug use: No REVIEW OF SYSTEMS GENERAL: No weight loss, malaise or fevers/chills HEENT: Negative for frequent or significant headaches, No changes in hearing or vision. NECK: Negative for lumps, goiter, pain and significant neck swelling RESPIRATORY: Negative for cough, hemoptysis, wheezing, dyspnea or shortness of breath CARDIOVASCULAR: Negative for chest pain, leg swelling, orthopnea, or palpitations GI: No nausea, vomiting, or diarrhea/constipation. No hematochezia/melena. No heartburn or reflux symptoms. : No history of dysuria, frequency or incontinence MUSCULOSKELETAL: + Back Pain SKIN: Negative for lesions, rash, and itching ENDOCRINE: Negative for cold or heat intolerance, polyuria, polydipsia and goiter NEURO: No history of headaches, syncope, paralysis, seizures or tremors MOOD: Negative for depression, anxiety, or suicidal ideation. EXAM: BP 124/60 Pulse (!) 57 Resp 20 Wt 115.7 kg (255 lb) SpO2 96% BMI 41.79 kg/m PHYSICAL EXAM: General Appearance: Well appearing, alert, in no acute distress, well-hydrated, well nourished. Skin: Skin color, texture, turgor normal, no suspicious rashes or lesions. Head: Normocephalic, no masses, lesions, tenderness or abnormalities. Eyes: Anicteric sclera. Extraocular movements are intact. Back:no pain to palpation of vertebrae, reflexes are 2+ and symmetric, motor and sensory appear to be normal, negative SLR test, no evidence of scoliosis. + Muscle tension noted in low left side of back, buttocks, and hamstring. Decreased ROM. Lungs: Lungs clear to auscultation. No wheezing, rhonchi, rales. Heart: RRR without murmur, gallop, or rubs. No ectopy. Extremities: No deformities, edema, skin discoloration, clubbing or cyanosis. Good capillary refill. Peripheral Pulses: Normal, Capillary refill <2secs, strong peripheral pulses, Pulses palpable. Neurologic: Gait normal. Sensation grossly intact. ASSESSMENT/PLAN: 1. Back strain, initial encounter - ICD9: 847.9, ICD10: S39.012A Lumbosacral sprain - Ice for localized tenderness - Warm moist heat for 20 min three times a day - May continue with Tylenol as needed. Recommend trying Voltaren Gel. - Stretch the legs and back when able to do so. - Massage therapy may be helpful. Follow up as needed or sooner if symptoms get worse or do not improve. Discussed treatment plan and patient voices understanding. Patient's questions answered appropriately. Medications and potential side effects were discussed and patient voices understanding. Aundrea Flores APRN.COLIN This note was partially generated using Spreedly recognition system. Note was reviewed for accuracy. There may be minor misspellings or grammar miscues with [employer] voice recognition. documented in this encounter [facility] 04-13-2022 History of Presen t illness Narrative agree patient had inr completed at [facility] patients inr is 2.0 (patients inr range is 2.0-3.0) patient is currently taking none on and 2mg all other days patients last dose change was on 09/20/21 due to a high level of 3.6 (dose at that time was 2mg daily) patient has had no changes in medication and no missed doses and no change in diet Advised patient to continue on the same dose(s) and that they would only be contacted regarding dosage and follow up instructions after review with provider, if a change is needed. Written instructions given and patient verbalized understanding. Presently scheduled in 3 weeks (05/02/22 - due to having another appt in [facility]) for follow up INR. documented in this encounter [facility] 04-11-2022 Miscellaneous Notes The following approved medication requests have been transmitted electronically. Requested Prescriptions Pending Prescriptions Disp Refills metoprolol tartrate, short acting, (LOPRESSOR) 50 mg tablet [Pharmacy Med Name: METOPROLOL TART 50 MG TAB 50 Tablet] 180 tablet 11 Sig: TAKE 1 TABLET BY MOUTH TWICE A DAY Anam Strickland APRN.BAG MAKER Patient phones requesting refills as follows: Requested Prescriptions Pending Prescriptions Disp Refills metoprolol tartrate, short acting, (LOPRESSOR) 50 mg tablet [Pharmacy Med Name: METOPROLOL TART 50 MG TAB 50 Tablet] 180 tablet 11 Sig: TAKE 1 TABLET BY MOUTH TWICE A DAY ARVIN-03/23/22 Labs-03/15/22 NOV-06/22/22 med filled 04/20/21 Please review and advise. Vinny Pierce LPN documented in this encounter [facility] 03-23-2022 History of Presen t illness Narrative Notified pt of message below, verbalized understanding. Tracker updated. Lamar Love Ma I agree with the advice given; stay on same dose and recheck in 3 weeks Saumya Farias MD patient had inr completed at [facility] patients inr is 2.4 (patients inr range is 2.0-3.0) patient is currently taking none on and 2mg all other days patients last dose change was on 09/20/21 due to a high level of 3.6 (dose at that time was 2mg daily) patient has had no changes in medication and no uninstructed missed doses and no change in diet Advised patient to continue on the same dose(s) and that they would only be contacted regarding dosage and follow up instructions after review with provider, if a change is needed. Written instructions given and patient verbalized understanding. Presently scheduled in 3 weeks (04/13/22 - spouse has appt also this day) for follow up INR. documented in this encounter [facility] 03-23-2022 History of Presen t illness Narrative Chief Complaint Patient presents with: F/U 3 Month HPI Norris Stein is a 81 year old male who presents here today for 3 month follow up. Here with his Martha. No bowel, Gi, or urinary issues. GERD: Sx controlled on Prilosec 20 mg daily. Thyroid: Taking Synthroid 50 mcg daily. Taking daily, no missed dosages. HTN: Checking BP at home routinely. No chest pains, dizziness, or SOB. Follows with [employer] Dr. Godoy. Currently on Norvasc 10 mg daily, Lopressor 50 mg BID, Pacerone 100 mg daily and Valsartan 80 mg daily, and Potassium 20 mEq BID. Cardio increased his Lasix to 60 mg daily. Pt notes that he just had recent cardiac work [facility]. A-fib: INR and coumadin managed by PCP and coumadin clinic. Scheduled with [facility] Nurse today after visit to have INR checked. Edema: addie legs; using compression stockings and Lasix 40 mg + 20 mg daily. This was advised by Dr. Godoy. Doing much better on the higher dosage. Lipid/CAD: Tries to watch diet and avoids sugar in his diet. Taking Lipitor 40 mg daily. CKD: Follows with [employer] Dr. Plasencia. FERMÍN: Takes Ativan 0.5 mg prn, does not use daily. KIM and Asthma: Using CPAP nightly at 15 cm water. Follows with Pulm Dr. Cruz at [facility]. Takes Prednisone 5 mg daily and prn inhaler. DM: Not taking any diabetes medications, tries to control with lifestyle. Denies any hypoglycemic episodes, no neuropathy sx in feet. Requesting to have Right ear cleaned out due to being hard of hearing. HM - Declines Covid. Declines depression. Past medical history, appointments, medications, allergies reviewed. Previous Medical History PAST MEDICAL HISTORY Diagnosis Date DM (diabetes mellitus) (HCC) Essential hypertension, benign Other and unspecified hyperlipidemia Other specified family circumstances Previous Surgical History PAST SURGICAL HISTORY Procedure Laterality Date COLONOSCOPY FLX DX W/COLLJ SPEC WHEN PFRMD 04/08/15 Colonoscopy Family History No family history on file. Patient Allergies ALLERGIES No Known Allergies Current Medications Current Outpatient Medications on File Prior to Visit Medication Sig predniSONE (DELTASONE) 5 mg tablet Take 1 tablet by mouth once daily. furosemide (LASIX) 20 mg tablet Take 1 tablet by mouth once daily. potassium chloride ER (K-DUR, KLOR-CON) 20 mEq tablet Take 1 tablet by mouth once daily. ferrous sulfate 325 mg (65 mg iron) tablet Take 1 tablet by mouth twice daily with meals. Cholecalciferol, Vitamin D3, 25 mcg (1,000 unit) cap Take 1 capsule by mouth once daily. valsartan (DIOVAN) 80 mg tablet Take 1 tablet by mouth once daily. albuterol HFA (VENTOLIN HFA) 90 mcg/actuation inhaler Inhale 2 Puffs as instructed every 4 hours as needed for wheezing/shortness of breath. omeprazole (PRILOSEC) 20 mg capsule Take 1 capsule by mouth once daily. amLODIPine (NORVASC) 10 mg tablet Take 1 tablet by mouth once daily. warfarin (COUMADIN) 2 mg tablet 2 mg daily except NONE on Sunday or as directed levothyroxine (SYNTHROID) 50 mcg tablet Take 1 tablet by mouth once daily. Take on empty stomach. For Thyroid. atorvastatin (LIPITOR) 40 mg tablet Take 1 tablet by mouth daily at bedtime. metoprolol tartrate, short acting, (LOPRESSOR) 50 mg tablet Take 1 tablet by mouth twice daily. cetirizine (ZYRTEC) 10 mg tablet Take 1 tablet by mouth once daily. amiodarone (PACERONE) 100 mg tablet Take 1 tablet by mouth once daily. CPAP Initiate CPAP @ 15 cm of water with humidification. Mask (per patient preference) optional chin strap (if indicated) , filters, tubing, humidifier and lifetime supplies. ASPIRIN 81 MG ORAL TAB Take one(1) tablet daily. No current facility-administered medications on file prior to visit. Social History Social History Tobacco Use Smoking status: Never Smokeless tobacco: Never Vaping Use Vaping Use: Never used Substance Use Topics Alcohol use: Yes Comment: occasional sip of wine Drug use: No EXAM: BP 136/74 (BP Site: Left Arm, BP Position: Sitting, BP Cuff Size: Regular Adult) Pulse (!) 56 Resp 20 Wt 114.9 kg (253 lb 6.4 oz) BMI 41.53 kg/m General Appearance: Well appearing, alert, in no acute distress, well-hydrated, well nourished.. Ears: right ear cerumen. Lungs: Lungs clear to auscultation. No wheezing, rhonchi, rales.. Heart: RRR without murmur, gallop, or rubs. No ectopy. Health Maintenance List COVID-19 VACCINE(1) Never done SPIROMETRY Never done SHINGRIX VACCINE(1 of 2) Never done DTAP,TDAP,TD(2 - Td or Tdap) due on 06/25/2017 DEPRESSION SCREENING due on 03/17/2020 HBA1C due on 03/08/2022 INFLUENZA(1) due on 04/06/2022 URINE ALBUMIN:CREATININE RATIO due on 06/14/2022 DIABETIC FOOT EXAM due on 06/20/2022 LDL CHOLESTEROL due on 12/06/2022 SERUM CREATININE due on 12/06/2022 HEMOGLOBIN/HEMATOCRIT due on 12/06/2022 ANNUAL PCP TEAM CHRONIC DISEASE VISIT due on 12/20/2022 BP CONTROLLED (<130/80) due on 12/20/2022 DILATED RETINAL EXAM due on 02/03/2023 ADVANCE DIRECTIVE DISCUSSION Completed PNEUMOCOCCAL: 65+ Completed Data reviewed Appointment on 03/15/2022 Component Date Value Hemoglobin A1C 03/15/2022 8.8 (A) Estimated Average Glucose 03/15/2022 206 Glucose 03/15/2022 159 (A) BUN 03/15/2022 37 (A) Creatinine 03/15/2022 1.81 (A) Sodium 03/15/2022 139 Potassium 03/15/2022 4.3 Chloride 03/15/2022 102 CO2 03/15/2022 26 Anion Gap 03/15/2022 11 Calcium, Total 03/15/2022 9.3 Estimated Glomerular Wiley* 03/15/2022 38 (A) Results Only on 02/21/2022 Component Date Value INR (POCT) 02/21/2022 2.7 (A) Internal Quality Check 02/21/2022 Acceptable ASSESSMENT/PLAN: 1. Essential hypertension, benign - ICD9: 401.1, ICD10: I10 (primary diagnosis) - good control - Continue current medication(s) - Discussed need and benefit for weight loss. - Goal of BP <140/90 2. Type 2 diabetes mellitus with stage 3b chronic kidney disease, without long-term current use of insulin (HCC) - ICD9: 250.40, 585.3, ICD10: E11.22, N18.32 worsening control He prefers to continue lifestyle; will monitor for another 3 months - HGB A1C - BASIC METABOLIC PNL 3. Hypothyroidism, acquired - ICD9: 244.9, ICD10: E03.9 Continue current medications. 4. Chronic systolic heart failure (HCC) - ICD9: 428.22, ICD10: I50.22 Continue current medications. Follow with Cardiology 5. Chronic atrial fibrillation (HCC) - ICD9: 427.31, ICD10: I48.20 Continue current medications. 6. Hyperlipidemia, unspecified hyperlipidemia type - ICD9: 272.4, ICD10: E78.5 Continue current medications. Follow up in 3 months Medical Decision Making: Problems: Moderate: 2+ stable chronic illnesses Data: Unique test result(s) reviewed: 3+ Risk: Moderate: Drug management Medical Decision Making Level: 4 - Moderate Saumya Farias MD documented in this encounter [facility] 03-15-2022 History of Presen t illness Narrative View External Lab - Chemistry [ID [id number]] View External Cardiology - Echo [ID [id number]] Martha Stewart Ma documented in this encounter [facility] 02-27-2022 History of Presen t illness Narrative View External Imaging - X-ray [ID [id number]] Chest xray Martha Stewart Ma documented in this encounter [facility] 02-27-2022 History of Presen t illness Narrative Scan on 02/27/2022 12:59 PM by External Provider: Consultation - Cardiology Martha Stewart Ma documented in this encounter [facility] 01-17-2022 History of Presen t illness Narrative I agree with the advice given; stay same and recheck in 1 month Saumya Farias MD patient had inr completed at [facility] patients inr is 2.4 (patients inr range is 2.0-3.0) patient is currently taking none on Tu and 2mg all other days patients last dose change was on 09/20/21 due to a high level of 3.6 (dose at that time was 2mg daily) patient has had no changes in medication and no change in diet Advised patient to continue on the same dose(s) and that they would only be contacted regarding dosage and follow up instructions after review with provider, if a change is needed. Written instructions given and patient verbalized understanding. Presently scheduled in 1 month (02/21/22) for follow up INR. documented in this encounter [facility] 12-20-2021 History of Presen t illness Narrative I agree with the advice given; stay same and recheck in 4 weeks Saumya Farias MD patient had inr completed at [facility] patients inr is 2.7 (patients inr range is 2.0-3.0) patient is currently taking none on Tues and 2mg all other days patients last dose change was on 09/20/21 due to a high level of 3.6 (dose at that time was 2mg daily) patient has had no changes in medication and no missed doses and no change in diet Advised patient to continue on the same dose(s) and that they would only be contacted regarding dosage and follow up instructions after review with provider, if a change is needed. Written instructions given and patient verbalized understanding. Presently scheduled in 4 weeks (01/17/22) for follow up INR. documented in this encounter [facility] 11-22-2021 History of Presen t illness Narrative I agree with the advice given; stay same and recheck in 4 weeks Saumya Farias MD patient had inr completed at [facility] patients inr is 2.3 (patients inr range is 2.0-3.0) patient is currently taking none on Tues and 2mg all other days patients last dose change was on 09/20/21 due to a high level of 3.6 (dose at that time was 2mg daily) patient has had no changes in medication and no missed doses and no change in diet Advised patient to continue on the same dose(s) and that they would only be contacted regarding dosage and follow up instructions after review with provider, if a change is needed. Written instructions given and patient verbalized understanding. Presently scheduled in 4 weeks (12/20/21 - pt has appt with pcp also this day) for follow up INR. documented in this encounter [facility] Diagnosis Atrial fibrillation, chronic (HCC)- Primary Atrial fibrillation [facility] Diagnosis Atrial fibrillation, chronic (HCC)- Primary Atrial fibrillation [facility] Diagnosis Chronic atrial fibrillation (HCC)- Primary Atrial fibrillation [facility] Diagnosis Essential hypertension, benign- Primary Type 2 diabetes mellitus with stage 3b chronic kidney disease, without long-term current use of insulin (HCC) Hypothyroidism, acquired Unspecified hypothyroidism Chronic systolic heart failure (HCC) Chronic systolic heart failure Chronic atrial fibrillation (HCC) Atrial fibrillation Hyperlipidemia, unspecified hyperlipidemia type [facility] Diagnosis Essential hypertension, benign Chronic systolic heart failure (HCC) Chronic systolic heart failure [facility] Diagnosis Back strain, initial encounter- Primary [facility] Diagnosis Midline low back pain without sciatica, unspecified chronicity- Primary Anxiety Anxiety state, unspecified Chronic systolic heart failure (HCC) Chronic systolic heart failure Essential hypertension, benign Hyperlipidemia, unspecified hyperlipidemia type Hypothyroidism, acquired Unspecified hypothyroidism Type 2 diabetes mellitus with stage 3b chronic kidney disease, without long-term current use of insulin (HCC) [facility] Diagnosis Paroxysmal atrial fibrillation (HCC) Atrial fibrillation [facility] Diagnosis Paroxysmal atrial fibrillation (HCC)- Primary Atrial fibrillation [facility] Diagnosis Paroxysmal atrial fibrillation (HCC)- Primary Atrial fibrillation [facility] Diagnosis Essential hypertension, benign- Primary Hypothyroidism, unspecified type Chronic systolic heart failure (HCC) Chronic systolic heart failure Chronic atrial fibrillation (HCC) Atrial fibrillation Hypothyroidism, acquired Unspecified hypothyroidism Type 2 diabetes mellitus with stage 3b chronic kidney disease, without long-term current use of insulin (HCC) FERMÍN (generalized anxiety disorder) Generalized anxiety disorder Midline low back pain without sciatica, unspecified chronicity [facility] Diagnosis Paroxysmal atrial fibrillation (HCC) Atrial fibrillation [facility] Diagnosis Atrial fibrillation, chronic (HCC)- Primary Atrial fibrillation [facility] Diagnosis Atrial fibrillation, chronic (HCC)- Primary Atrial fibrillation [facility] Diagnosis Paroxysmal atrial fibrillation (HCC)- Primary Atrial fibrillation Atrial fibrillation, chronic (HCC) Atrial fibrillation [facility] Diagnosis Atrial fibrillation, chronic (HCC)- Primary Atrial fibrillation [facility] Diagnosis Cellulitis of skin- Primary Cellulitis and abscess of unspecified site [facility] Diagnosis Midline low back pain without sciatica, unspecified chronicity [facility] Diagnosis Type 2 diabetes mellitus with stage 3b chronic kidney disease, without long-term current use of insulin (HCC)- Primary Essential hypertension, benign Chronic systolic heart failure (HCC) Chronic systolic heart failure Hyperlipidemia, unspecified hyperlipidemia type Chronic atrial fibrillation (HCC) Atrial fibrillation Hypothyroidism, acquired Unspecified hypothyroidism FERMÍN (generalized anxiety disorder) Generalized anxiety disorder 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 Cardiomyopathy, unspecified type (HCC) Hypertensive heart disease with chronic systolic congestive heart failure (HCC) Cellulitis of skin Cellulitis and abscess of unspecified site [facility] Diagnosis Atrial fibrillation, chronic (HCC)- Primary Atrial fibrillation [facility] Diagnosis Atrial fibrillation, chronic (HCC)- Primary Atrial fibrillation [facility]* Diagnosis Hypothyroidism, unspecified type Hypothyroidism, acquired Unspecified hypothyroidism [facility] Diagnosis Hypothyroidism, unspecified type Hypothyroidism, acquired Unspecified hypothyroidism Paroxysmal atrial fibrillation (HCC) Atrial fibrillation Chronic systolic heart failure (HCC) Chronic systolic heart failure Essential hypertension, benign [facility] Diagnosis Essential hypertension, benign Chronic systolic heart failure (HCC) Chronic systolic heart failure documented in this encounter [facility] note* Diagnosis Paroxysmal atrial fibrillation (HCC) Atrial fibrillation documented in this encounter [facility] note* Diagnosis Type 2 diabetes mellitus with stage 3b chronic kidney disease, without long-term current use of insulin (HCC)- Primary Stage 3b chronic kidney disease (HCC) Hypothyroidism, acquired Unspecified hypothyroidism Chronic systolic heart failure (HCC) Chronic systolic heart failure Chronic atrial fibrillation (HCC) Atrial fibrillation Hypertensive heart disease with chronic systolic congestive heart failure (HCC) Hyperlipidemia, unspecified hyperlipidemia type Anxiety Anxiety state, unspecified [facility] Diagnosis Anxiety Anxiety state, unspecified documented in this encounter [facility] note* Diagnosis Atrial fibrillation, chronic (HCC)- Primary Atrial fibrillation documented in this encounter [facility] note* Diagnosis Atrial fibrillation, chronic (HCC)- Primary Atrial fibrillation documented in this encounter [facility] note* Diagnosis Paroxysmal atrial fibrillation (HCC) Atrial fibrillation documented in this encounter [facility] note* Diagnosis Atrial fibrillation, chronic (HCC)- Primary Atrial fibrillation [facility]* Diagnosis Type 2 diabetes mellitus with stage 3b chronic kidney disease, without long-term current use of insulin (HCC)- Primary Essential hypertension, benign Stage 3b chronic kidney disease (HCC) Hyperlipidemia, unspecified hyperlipidemia type Paroxysmal atrial fibrillation (HCC) Atrial fibrillation Anxiety Anxiety state, unspecified Hypothyroidism, unspecified type Cardiomyopathy, unspecified type (HCC) Cellulitis of skin Cellulitis and abscess of unspecified site Gastroesophageal reflux disease without esophagitis Esophageal reflux Asthma, unspecified asthma severity, unspecified whether complicated, unspecified whether persistent Lumbar pain Lumbago Anticoagulated on Coumadin Encounter for therapeutic drug monitoring Disorder of carotid artery (HCC) Unspecified disorders of arteries and arterioles Morbid obesity (HCC) Morbid obesity [facility] Diagnosis Paroxysmal atrial fibrillation (HCC) Atrial fibrillation documented in this encounter [facility] note* Diagnosis Gastroesophageal reflux disease without esophagitis Esophageal reflux documented in this encounter [facility] note* Diagnosis Atrial fibrillation, chronic (HCC)- Primary Atrial fibrillation documented in this encounter [facility] note* Diagnosis Chronic atrial fibrillation (HCC)- Primary Atrial fibrillation documented in this encounter [facility] note* Diagnosis [facility]ezing- [facility] Diagnosis Chronic atrial fibrillation (HCC)- Primary Atrial fibrillation [facility] Diagnosis Cough, unspecified type- Primary Essential hypertension, benign [facility] Diagnosis Type 2 diabetes mellitus with stage 3b chronic kidney disease, without long-term current use of insulin (HCC)- Primary Essential hypertension, benign Hyperlipidemia, unspecified hyperlipidemia type Chronic systolic heart failure (HCC) Chronic systolic heart failure Chronic atrial fibrillation (HCC) Atrial fibrillation Stage 3b chronic kidney disease (HCC) Hypothyroidism, acquired Unspecified hypothyroidism FERMÍN (generalized anxiety disorder) Generalized anxiety disorder Disorder of carotid artery (HCC) Unspecified disorders of arteries and arterioles Morbid obesity (HCC) Morbid obesity [facility] Diagnosis Essential hypertension, benign- Primary [facility] Diagnosis Chronic atrial fibrillation (HCC)- Primary [facility]rial [facility] Diagnosis Chronic atrial fibrillation (HCC)- Primary Atrial fibrillation [facility] Diagnostic Procedure Only (Routine) - Closed Specialty Diagnoses / Procedures Referred By Kecia mendoza Referred To Contact XR IMAGING Diagnoses Midline low back pain without sciatica, unspecified chronicity Procedures XR LUMBAR GENERAL 3V AP/LAT/L5-S1 RADEX SPINE LUMBOSACRAL 2/3 VIEWS Saumya Farias MD [address] [place] [address] Xr Imaging Referral ID Status Reason Start Date Expiration Date V isits Requested Visits Authorized [id number] Closed Auto-Generate d Referral 05/25/2022 06/24/2023 1 1 [facility] Reason for Referral Specialty Diagnoses / Procedures Referred By Kecia mendoza Referred To Contact [facility] Diagnoses Midline low back pain without sciatica, unspecified chronicity Procedures CONSULT TO PHYSICAL THERAPY PHYSICAL THERAPY EVALUATION HIGH COMPLEX 45 MINS Saumya Farias MD [address] [place] [address] [facility] [id number] [place] [address] Referral ID Status Reason Start Date Expiration Date Visits Requested Visits Authorized [id number] Pending Review Auto-Generat ed Referral 2 06/22/2023 1 1 Specialty Diagnoses / Procedures Referred By Kecia mendoza Referred To Contact Pain Management Diagnoses Lumbar pain Procedures CONSULT TO PAIN MGT OFFICE/OUTPATIENT [facility] HIGH MDM 60-74 MINUTES Saumya Farias MD [address] [place] [address] Referral ID Status Reason Start Date Expiration Date Visits Requested Visits Authorized [id number] Authorized PCP Requested Referral 2 06/22/2023 1 1 Summary Purpose Family History No Family History Records FoundNo Family History Records Found Advance Directives No Advanced Directives Records FoundNo Advanced Directives Records Found Medications Administered Section Inactive Administered Medications - up to 3 most recent administrations Medication Order MAR Action Action Date Dose Rate Site ipratropium-albuterol 3 mL nebulizer solution (DUONEB) 3 mL, INHALATION, ONCE, 1 dose, On Kera 05/10/23 at 1030, PROTECT FROM LIGHT. The unit-dose vial should remain stored in the protective foil pouch until time of use. Given 05/10/2023 10:14 AM EDT 3 mL Additional Source Comments Source Comments (unrecognize d section and content) In the event this informatio n is protected by the Federal Confidentiality of Alcohol and Drug Abuse Patient Records regulations: The Federal rules restrict any use of the information to criminally investigate or prosecute any alcohol or drug abuse patient.[facility] the event this information is protected by the Federal Confidentiality of Alcohol and Drug Abuse Patient Records regulations: The Federal rules restrict any use of the information to criminally investigate or prosecute any alcohol or drug abuse patient.[facility]In the event this information is protected by the Federal Confidentiality of Alcohol and Drug Abuse Patient Records regulations: The Federal rules restrict any use of the information to criminally investigate or prosecute any alcohol or drug abuse patient.[facility]In the event this information is protected by the Federal Confidentiality of Alcohol and Drug Abuse Patient Records regulations: The Federal rules restrict any use of the information to criminally investigate or prosecute any alcohol or drug abuse patient.[facility]In the event this information is protected by the Federal Confidentiality of Alcohol and Drug Abuse Patient Records regulations: The Federal rules restrict any use of the information to criminally investigate or prosecute any alcohol or drug abuse patient.[facility]In the event this information is protected by the Federal Confidentiality of Alcohol and Drug Abuse Patient Records regulations: The Federal rules restrict any use of the information to criminally investigate or prosecute any alcohol or drug abuse patient.[facility]In the event this information is protected by the Federal Confidentiality of Alcohol and Drug Abuse Patient Records regulations: The Federal rules restrict any use of the information to criminally investigate or prosecute any alcohol or drug abuse patient.[facility] HospitalIn the event this information is protected by the Federal Confidentiality of Alcohol and Drug Abuse Patient Records regulations: The Federal rules restrict any use of the information to criminally investigate or prosecute any alcohol or drug abuse patient.[facility]In the event this information is protected by the Federal Confidentiality of Alcohol and Drug Abuse Patient Records regulations: The Federal rules restrict any use of the information to criminally investigate or prosecute any alcohol or drug abuse patient.[facility]In the event this information is protected by the Federal Confidentiality of Alcohol and Drug Abuse Patient Records regulations: The Federal rules restrict any use of the information to criminally investigate or prosecute any alcohol or drug abuse patient.[facility] HospitalIn the event this information is protected by the Federal Confidentiality of Alcohol and Drug Abuse Patient Records regulations: The Federal rules restrict any use of the information to criminally investigate or prosecute any alcohol or drug abuse patient.[facility] HospitalIn the event this information is protected by the Federal Confidentiality of Alcohol and Drug Abuse Patient Records regulations: The Federal rules restrict any use of the information to criminally investigate or prosecute any alcohol or drug abuse patient.[facility] HospitalIn the event this information is protected by the Federal Confidentiality of Alcohol and Drug Abuse Patient Records regulations: The Federal rules restrict any use of the information to criminally investigate or prosecute any alcohol or drug abuse patient.[facility] HospitalIn the event this information is protected by the Federal Confidentiality of Alcohol and Drug Abuse Patient Records regulations: The Federal rules restrict any use of the information to criminally investigate or prosecute any alcohol or drug abuse patient.[facility] HospitalIn the event this information is protected by the Federal Confidentiality of Alcohol and Drug Abuse Patient Records regulations: The Federal rules restrict any use of the information to criminally investigate or prosecute any alcohol or drug abuse patient.[facility] HospitalIn the event this information is protected by the Federal Confidentiality of Alcohol and Drug Abuse Patient Records regulations: The Federal rules restrict any use of the information to criminally investigate or prosecute any alcohol or drug abuse patient.[facility] HospitalIn the event this information is protected by the Federal Confidentiality of Alcohol and Drug Abuse Patient Records regulations: The Federal rules restrict any use of the information to criminally investigate or prosecute any alcohol or drug abuse patient.[facility] HospitalIn the event this information is protected by the Federal Confidentiality of Alcohol and Drug Abuse Patient Records regulations: The Federal rules restrict any use of the information to criminally investigate or prosecute any alcohol or drug abuse patient.[facility] HospitalIn the event this information is protected by the Federal Confidentiality of Alcohol and Drug Abuse Patient Records regulations: The Federal rules restrict any use of the information to criminally investigate or prosecute any alcohol or drug abuse patient.[facility] HospitalIn the event this information is protected by the Federal Confidentiality of Alcohol and Drug Abuse Patient Records regulations: The Federal rules restrict any use of the information to criminally investigate or prosecute any alcohol or drug abuse patient.[facility] HospitalIn the event this information is protected by the Federal Confidentiality of Alcohol and Drug Abuse Patient Records regulations: The Federal rules restrict any use of the information to criminally investigate or prosecute any alcohol or drug abuse patient.[facility] HospitalIn the event this information is protected by the Federal Confidentiality of Alcohol and Drug Abuse Patient Records regulations: The Federal rules restrict any use of the information to criminally investigate or prosecute any alcohol or drug abuse patient.[facility] HospitalIn the event this information is protected by the Federal Confidentiality of Alcohol and Drug Abuse Patient Records regulations: The Federal rules restrict any use of the information to criminally investigate or prosecute any alcohol or drug abuse patient.[facility] HospitalIn the event this information is protected by the Federal Confidentiality of Alcohol and Drug Abuse Patient Records regulations: The Federal rules restrict any use of the information to criminally investigate or prosecute any alcohol or drug abuse patient.[facility] HospitalIn the event this information is protected by the Federal Confidentiality of Alcohol and Drug Abuse Patient Records regulations: The Federal rules restrict any use of the information to criminally investigate or prosecute any alcohol or drug abuse patient.[facility] HospitalIn the event this information is protected by the Federal Confidentiality of Alcohol and Drug Abuse Patient Records regulations: The Federal rules restrict any use of the information to criminally investigate or prosecute any alcohol or drug abuse patient.[facility] HospitalIn the event this information is protected by the Federal Confidentiality of Alcohol and Drug Abuse Patient Records regulations: The Federal rules restrict any use of the information to criminally investigate or prosecute any alcohol or drug abuse patient.[facility] HospitalIn the event this information is protected by the Federal Confidentiality of Alcohol and Drug Abuse Patient Records regulations: The Federal rules restrict any use of the information to criminally investigate or prosecute any alcohol or drug abuse patient.[facility] HospitalIn the event this information is protected by the Federal Confidentiality of Alcohol and Drug Abuse Patient Records regulations: The Federal rules restrict any use of the information to criminally investigate or prosecute any alcohol or drug abuse patient.[facility] HospitalIn the event this information is protected by the Federal Confidentiality of Alcohol and Drug Abuse Patient Records regulations: The Federal rules restrict any use of the information to criminally investigate or prosecute any alcohol or drug abuse patient.[facility] HospitalIn the event this information is protected by the Federal Confidentiality of Alcohol and Drug Abuse Patient Records regulations: The Federal rules restrict any use of the information to criminally investigate or prosecute any alcohol or drug abuse patient.[facility] HospitalIn the event this information is protected by the Federal Confidentiality of Alcohol and Drug Abuse Patient Records regulations: The Federal rules restrict any use of the information to criminally investigate or prosecute any alcohol or drug abuse patient.[facility] HospitalIn the event this information is protected by the Federal Confidentiality of Alcohol and Drug Abuse Patient Records regulations: The Federal rules restrict any use of the information to criminally investigate or prosecute any alcohol or drug abuse patient.[facility] HospitalIn the event this information is protected by the Federal Confidentiality of Alcohol and Drug Abuse Patient Records regulations: The Federal rules restrict any use of the information to criminally investigate or prosecute any alcohol or drug abuse patient.[facility] HospitalIn the event this information is protected by the Federal Confidentiality of Alcohol and Drug Abuse Patient Records regulations: The Federal rules restrict any use of the information to criminally investigate or prosecute any alcohol or drug abuse patient.[facility] HospitalIn the event this information is protected by the Federal Confidentiality of Alcohol and Drug Abuse Patient Records regulations: The Federal rules restrict any use of the information to criminally investigate or prosecute any alcohol or drug abuse patient.[facility] HospitalIn the event this information is protected by the Federal Confidentiality of Alcohol and Drug Abuse Patient Records regulations: The Federal rules restrict any use of the information to criminally investigate or prosecute any alcohol or drug abuse patient.[facility] HospitalIn the event this information is protected by the Federal Confidentiality of Alcohol and Drug Abuse Patient Records regulations: The Federal rules restrict any use of the information to criminally investigate or prosecute any alcohol or drug abuse patient.[facility] HospitalIn the event this information is protected by the Federal Confidentiality of Alcohol and Drug Abuse Patient Records regulations: The Federal rules restrict any use of the information to criminally investigate or prosecute any alcohol or drug abuse patient.[facility] HospitalIn the event this information is protected by the Federal Confidentiality of Alcohol and Drug Abuse Patient Records regulations: The Federal rules restrict any use of the information to criminally investigate or prosecute any alcohol or drug abuse patient.[facility] HospitalIn the event this information is protected by the Federal Confidentiality of Alcohol and Drug Abuse Patient Records regulations: The Federal rules restrict any use of the information to criminally investigate or prosecute any alcohol or drug abuse patient.[facility] HospitalIn the event this information is protected by the Federal Confidentiality of Alcohol and Drug Abuse Patient Records regulations: The Federal rules restrict any use of the information to criminally investigate or prosecute any alcohol or drug abuse patient.[facility] HospitalIn the event this information is protected by the Federal Confidentiality of Alcohol and Drug Abuse Patient Records regulations: The Federal rules restrict any use of the information to criminally investigate or prosecute any alcohol or drug abuse patient.[facility] HospitalIn the event this information is protected by the Federal Confidentiality of Alcohol and Drug Abuse Patient Records regulations: The Federal rules restrict any use of the information to criminally investigate or prosecute any alcohol or drug abuse patient.[facility] HospitalIn the event this information is protected by the Federal Confidentiality of Alcohol and Drug Abuse Patient Records regulations: The Federal rules restrict any use of the information to criminally investigate or prosecute any alcohol or drug abuse patient.[facility] HospitalIn the event this information is protected by the Federal Confidentiality of Alcohol and Drug Abuse Patient Records regulations: The Federal rules restrict any use of the information to criminally investigate or prosecute any alcohol or drug abuse patient.[facility] HospitalIn the event this information is protected by the Federal Confidentiality of Alcohol and Drug Abuse Patient Records regulations: The Federal rules restrict any use of the information to criminally investigate or prosecute any alcohol or drug abuse patient.[facility] HospitalIn the event this information is protected by the Federal Confidentiality of Alcohol and Drug Abuse Patient Records regulations: The Federal rules restrict any use of the information to criminally investigate or prosecute any alcohol or drug abuse patient.[facility] HospitalIn the event this information is protected by the Federal Confidentiality of Alcohol and Drug Abuse Patient Records regulations: The Federal rules restrict any use of the information to criminally investigate or prosecute any alcohol or drug abuse patient.[facility] HospitalIn the event this information is protected by the Federal Confidentiality of Alcohol and Drug Abuse Patient Records regulations: The Federal rules restrict any use of the information to criminally investigate or prosecute any alcohol or drug abuse patient.[facility] HospitalIn the event this information is protected by the Federal Confidentiality of Alcohol and Drug Abuse Patient Records regulations: The Federal rules restrict any use of the information to criminally investigate or prosecute any alcohol or drug abuse patient.[facility] HospitalIn the event this information is protected by the Federal Confidentiality of Alcohol and Drug Abuse Patient Records regulations: The Federal rules restrict any use of the information to criminally investigate or prosecute any alcohol or drug abuse patient.[facility] HospitalIn the event this information is protected by the Federal Confidentiality of Alcohol and Drug Abuse Patient Records regulations: The Federal rules restrict any use of the information to criminally investigate or prosecute any alcohol or drug abuse patient.[facility]In the event this information is protected by the Federal Confidentiality of Alcohol and Drug Abuse Patient Records regulations: The Federal rules restrict any use of the information to criminally investigate or prosecute any alcohol or drug abuse patient.[facility]In the event this information is protected by the Federal Confidentiality of Alcohol and Drug Abuse Patient Records regulations: The Federal rules restrict any use of the information to criminally investigate or prosecute any alcohol or drug abuse patient.[facility] HospitalIn the event this information is protected by the Federal Confidentiality of Alcohol and Drug Abuse Patient Records regulations: The Federal rules restrict any use of the information to criminally investigate or prosecute any alcohol or drug abuse patient.[facility] HospitalIn the event this information is protected by the Federal Confidentiality of Alcohol and Drug Abuse Patient Records regulations: The Federal rules restrict any use of the information to criminally investigate or prosecute any alcohol or drug abuse patient.[facility] HospitalIn the event this information is protected by the Federal Confidentiality of Alcohol and Drug Abuse Patient Records regulations: The Federal rules restrict any use of the information to criminally investigate or prosecute any alcohol or drug abuse patient.[facility] HospitalIn the event this information is protected by the Federal Confidentiality of Alcohol and Drug Abuse Patient Records regulations: The Federal rules restrict any use of the information to criminally investigate or prosecute any alcohol or drug abuse patient.[facility] HospitalIn the event this information is protected by the Federal Confidentiality of Alcohol and Drug Abuse Patient Records regulations: The Federal rules restrict any use of the information to criminally investigate or prosecute any alcohol or drug abuse patient.[facility]In the event this information is protected by the Federal Confidentiality of Alcohol and Drug Abuse Patient Records regulations: The Federal rules restrict any use of the information to criminally investigate or prosecute any alcohol or drug abuse patient.[facility]In the event this information is protected by the Federal Confidentiality of Alcohol and Drug Abuse Patient Records regulations: The Federal rules restrict any use of the information to criminally investigate or prosecute any alcohol or drug abuse patient.[facility]In the event this information is protected by the Federal Confidentiality of Alcohol and Drug Abuse Patient Records regulations: The Federal rules restrict any use of the information to criminally investigate or prosecute any alcohol or drug abuse patient.[facility]In the event this information is protected by the Federal Confidentiality of Alcohol and Drug Abuse Patient Records regulations: The Federal rules restrict any use of the information to criminally investigate or prosecute any alcohol or drug abuse patient.[facility]In the event this information is protected by the Federal Confidentiality of Alcohol and Drug Abuse Patient Records regulations: The Federal rules restrict any use of the information to criminally investigate or prosecute any alcohol or drug abuse patient.[facility]In the event this information is protected by the Federal Confidentiality of Alcohol and Drug Abuse Patient Records regulations: The Federal rules restrict any use of the information to criminally investigate or prosecute any alcohol or drug abuse patient.[facility] HospitalIn the event this information is protected by the Federal Confidentiality of Alcohol and Drug Abuse Patient Records regulations: The Federal rules restrict any use of the information to criminally investigate or prosecute any alcohol or drug abuse patient.[facility] HospitalIn the event this information is protected by the Federal Confidentiality of Alcohol and Drug Abuse Patient Records regulations: The Federal rules restrict any use of the information to criminally investigate or prosecute any alcohol or drug abuse patient.[facility] the event this information is protected by the Federal Confidentiality of Alcohol and Drug Abuse Patient Records regulations: The Federal rules restrict any use of the information to criminally investigate or prosecute any alcohol or drug abuse patient.[facility] Hospital[facility] the event this information is protected by the Federal Confidentiality of Alcohol and Drug Abuse Patient Records regulations: The Federal rules restrict any use of the information to criminally investigate or prosecute any alcohol or drug abuse patient.[facility] Reason for Visit (unrecogniz ed section and content) Specialty Diagnoses / Procedures Referred By Kecia mendoza Referred To Contact [facility] Diagnoses INR/ [facility] Clinic Procedures INR/ Coumadin Clinic Saumya Farias MD [address] [place] [address] Anticoag [facility] [address] [place] [address] Referral ID Status Reason Start Date Expiration Date Visits Requested Visits Authorized [id number] Authorized Financial Clearance Required - Self Pay Patient Cleared - [facility] 11/01/2021 01/30/2022 9 9 Reason Comments external report Cardio note Reason Comments external imaging Reason Comments external document Specialty Diagnoses / Procedures Referred By Contac t Referred To Contact [facility] Diagnoses INR Procedures INR Saumya Farias MD [address] [place] [address] Anticoag [facility] [address] [place] [address] Referral ID Status Reason Start Date Expiration Date V isits Requested Visits Authorized [id number] Closed Financial Clearance Required - Self Pay Patient Cleared - [facility] 02/23/2022 05/24/2022 1 1 Reason Comments F/U 3 Month Specialty Diagnoses / Procedures Referred By Contac t Referred To Contact [facility] Diagnoses follow up Procedures follow up aSumya Farias MD [address] [place] [address] [facility] [address] [place] [address] Referral ID Status Reason Start Date Expiration Date V isits Requested Visits Authorized [id number] Closed OON/Self Pay Override Financial Clearance Required - OON Payor Patient Cleared - [facility] 03/23/2022 08/05/2022 1 1 Reason Comments Refill Request Referral ID Status Reason Start Date Expiration Date V isits Requested Visits Authorized [id number] Closed Financial Clearance Required - OON Payor Patient Cleared - [facility] 03/23/2022 06/21/2022 1 1 Reason Comments Acute Visit back lower left Specialty Diagnoses / Procedures Referred By [facility] Referred To Contact [facility] Diagnoses Consult, Test, Treat Procedures Follow up Saumya Farias MD [address] [place] [address] [facility] [address] [place] [address] Referral ID Status Reason Start Date Expiration Date V isits Requested Visits Authorized [id number] Closed Financial Clearance Required - Self Pay Patient Cleared - [facility] 03/23/2022 06/21/2022 1 1 Referral ID Status Reason Start Date Expiration Date V isits Requested Visits Authorized [id number] Closed Financial Clearance Required - Self Pay Patient Cleared [facility] [place] 04/19/2022 07/18/2022 1 1 Reason Comments Pain, Back Specialty Diagnoses / Procedures Referred By [facility] Referred To Contact [facility] Diagnoses INR Procedures INR Saumya Farias MD [address] [place] [address] Anticoag [facility] [address] [place] [address] Referral ID Status Reason Start Date Expiration Date V isits Requested Visits Authorized [id number] Closed Financial Clearance Required - Self Pay Patient Cleared [facility] 05/03/2022 08/01/2022 1 1 Specialty Diagnoses / Procedures Referred By [facility] Referred To Contact [facility] Diagnoses INR Procedures [facility] [address] [place] [address] Referral ID Status Reason Start Date Expiration Date V isits Requested Visits Authorized [id number] Closed OON/Self Pay Override Financial Clearance Required - Self Pay Patient Cleared [facility] 06/06/2022 09/04/2022 1 1 Referral ID Status Reason Start Date Expiration Date V isits Requested Visits Authorized [id number] Closed Financial Clearance Required - Self Pay Patient Cleared - [facility] 06/06/2022 09/04/2022 1 1 Reason Comments Results Reason Comments F/U 3 Month Specialty Diagnoses / Procedures Referred By [facility] Referred To Contact Family Medicine / FAMILY MEDICINE Diagnoses 3 mo f/u Procedures 4C EST Saumya Farias MD [address] [place] [address] Saumya Farias MD [address] [place] [address] Referral ID Status Reason Start Date Expiration Date V isits Requested Visits Authorized [id number] Closed Financial Clearance Required - Self Pay Patient Cleared - [facility] 06/22/2022 09/20/2022 1 1 Reason Comments Patient Question Referral ID Status Reason Start Date Expiration Date V isits Requested Visits Authorized [id number] Closed Financial Clearance Required - OON Payor Patient Cleared - [facility] 06/22/2022 09/20/2022 1 1 Referral ID Status Reason Start Date Expiration Date V isits Requested Visits Authorized [id number] Closed Financial Clearance Required - OON Payor Patient Cleared - [facility] 07/05/2022 10/03/2022 1 1 Specialty Diagnoses / Procedures Referred By Contsacha t Referred To Contact [facility] Diagnoses INR (international normal ratio) abnormal INR Procedures OFFICE/OUTPATIENT ESTABLISHED MOD MDM 30-39 MIN INR Self Anticoag [facility] [address] [place] [address] Referral ID Status Reason Start Date Expiration Date V isits Requested Visits Authorized [id number] Closed Patient Cleared - [facility] 07/14/2022 08/05/2022 1 1 Reason Onset Date Comments Refill Request 08/03/2022 Referral ID Status Reason Start Date Expiration Date V isits Requested Visits Authorized [id number] Closed Financial Clearance Required - OON Payor Patient Cleared [facility] 07/27/2022 10/25/2022 1 1 Reason Comments Acute Visit left leg swollen and seeping Reason Onset Date Comments Refill Request 08/30/2022 Refill Request 09/13/2022 Reason Comments verbal orders Reason Comments Home Health Nursing Order Request Reason Comments Home Health Point of Care Results Reason Comments [facility]/pt update swelling Reason Comments Hospital F/U [facility] Reason Comments Orders protime Reason Comments Orders Home Health Point of Care Results Reason Onset Date Comments Refill Request 10/19/2022 Reason Onset Date Comments Refill Request 10/20/2022 Reason Onset Date Comments Refill Request Refill Request 10/23/2022 Reason Onset Date Comments Refill Request 10/23/2022 SEE NOTES, NOT S ENT MED UPDATES Reason Comments [facility] Reason Comments PT Recert Reason Comments C Nursing Plan of Care Reason Comments patient d/c from OT Reason Comments Follow Up Reason Comments Discharged today from PT Reason Comments Patient Update Reason Onset Date Comments Refill Request 11/28/2022 Reason Onset Date Comments Refill Request 01/19/2023 Specialty Diagnoses / Procedures Referred By Kecia mendoza Referred To Contact Family Medicine / FAMILY MEDICINE Diagnoses 3m f/u Procedures 4C EST WELL Self Saumya Farias MD [address] [place] [address] Referral ID Status Reason Start Date Expiration Date V isits Requested Visits Authorized [id number] Closed Financial Clearance Required - Self Pay Patient Cleared - [facility] 10/06/2022 03/04/2023 1 1 Reason Comments Cough Sob, wheezing x 6 da ys Reason Onset Date Comments Refill Request 05/15/2023 Medication Request 05/15/2023 cough medicin e Care Teams (unrecognized sec tion and content) 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 Start Date End Date Saumya Farias MD [address] [place], [place] [id number] PCP - General 03/26/09 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 Start Date End Date Samuya Farias MD [address] [place] [address] PCP - General 03/26/09 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 Start Date End Date Saumya Farias MD [address] [place] [address] PCP - General 03/26/09 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 Start Date End Date Saumya Farias MD [address] [place] [address] PCP - General 03/26/09 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 Start Date End Date Saumya Farias MD [address] [place] [address] PCP - General 03/26/09 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 Start Date End Date Saumya Farias MD [address] [place] [address] PCP - General 03/26/09 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 Start Date End Date Saumya Farias MD [address] [place] [address] PCP - General 03/26/09 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 Start Date End Date Saumya Farias MD [address] [place] [address] PCP - General 03/26/09 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 Start Date End Date Saumya Farias MD [address] [place] [address] PCP - General 03/26/09 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 Start Date End Date Saumya Farias MD [address] [place] [address] PCP - General 03/26/09 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 Start Date End Date Saumya Farias MD [address] [place] [address] PCP - General 03/26/09 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 Start Date End Date Saumya Fraias MD [address] [place] [address] PCP - General 03/26/09 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 Start Date End Date Saumya Farias MD [address] [place] [address] PCP - General 03/26/09 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 Start Date End Date Saumya Farias MD [address] [place] [address] PCP - General 03/26/09 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 Start Date End Date Saumya Farias MD [address] [place] [address] PCP - General 03/26/09 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 Start Date End Date Saumya Farias MD [address] [place] [address] PCP - General 03/26/09 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 Start Date End Date Saumya Farias MD [address] [place] [address] PCP - General 03/26/09 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 Start Date End Date Saumya Farias MD [address] [place] [address] PCP - General 03/26/09 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 Start Date End Date Saumya Farias MD [address] [place] [address] PCP - General 03/26/09 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 Start Date End Date Saumya Farias MD [address] [place] [address] PCP - General 03/26/09 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 Start Date End Date Saumya Farias MD [address] [place] [address] PCP - General 03/26/09 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 Start Date End Date Saumya Fairas MD [address] [place] [address] PCP - General 03/26/09 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 Start Date End Date Saumya Farias MD [address] [place] [address] PCP - General 03/26/09 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 Start Date End Date Saumya Farias MD [address] [place] [address] PCP - General 03/26/09 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 This clinical summary was aggregated from multiple sources. Caution should be exercised in using it in the provision of clinical care. This summary normalizes information from multiple sources, and as a consequence, information in this document may materially change the coding, format and clinical context of patient data. In addition, data may be omitted in some cases. CLINICAL DECISIONS SHOULD BE BASED ON THE PRIMARY CLINICAL RECORDS. [facility] [employer] [facility]. provides no warranty or guarantee of the accuracy or completeness of information in this document.
[2023-08-14 11:40] VITALS: BP 156/78; PULSE 64; RESP 14; TEMP 36.6; BMI 46.5
[2023-08-14 13:40] LABS: BNP,B-Type NATRIURETIC PEPTIDE 64.2 pg/mL (0-100)
== END 2023-08-14 11:48 | disposition home or self-care (01) ==
PROVIDERS: Emergency Provider Emergency Medicine; PCP Family Medicine; Visit Provider Emergency Medicine
DX: U07.1 COVID-19 (principal); I50.9 Heart failure, unspecified; I13.0 Hypertensive heart and chronic kidney disease with heart failure and stage 1 through stage 4 chronic kidney disease, or unspecified chronic kidney disease; E11.22 Type 2 diabetes mellitus with diabetic chronic kidney disease; I48.0 Paroxysmal atrial fibrillation; E66.01 Morbid (severe) obesity due to excess calories; Z68.42 Body mass index [BMI] 45.0-49.9, adult; Z79.4 Long term (current) use of insulin; N18.30 Chronic kidney disease, stage 3 unspecified; I25.10 Atherosclerotic heart disease of native coronary artery without angina pectoris; E78.00 Pure hypercholesterolemia, unspecified; Z95.5 Presence of coronary angioplasty implant and graft; Z99.81 Dependence on supplemental oxygen; Z79.01 Long term (current) use of anticoagulants; Z79.82 Long term (current) use of aspirin; Z79.899 Other long term (current) drug therapy; Z86.73 Personal history of transient ischemic attack (TIA), and cerebral infarction without residual deficits
CPT/HCPCS: 71045; 80048; 81001; 83880; 84484; 85025; 85610; 85730; 87631; 93005; 94640; 99284; A4216